=== PATIENT | female | born 1990 | race Caucasian/White ===

== ENCOUNTER 2018-02-10 08:52 | Outpatient (RCR) | payer MEDICAID, SELFPAY ==
--- NOTE | 2018-02-10 13:17 | BH.SGPN ---
Service Group Progress Note - Session Psychotherapy Session #1 Date Open:: 02/10/18 Time Started:: 09:05 Time Stopped:: 10:00 Targeted Problem #:: 1 Type of Group:: Process Goal of Group:: The goal of today's group was to check-in with client's mood, stressors, and positives, review homework and introduce topic for the day. Client Response/Progress/Benefit:: Client reported she is seeking help because she believes she has bipolar disorder that has not been diagnosed yet. Shared she does not have support from family because he do not believe in health. Client reported from her grandma she was able to find out that many of her family members have been diagnosed with bipolar disorder in the past. Client reported she is struggling with being able to manage her emotions and is hoping to learn skills to help her function. Client seemed to benefit from being oriented to the group process as well as receiving support from peers. First day in IOP. Eye Contact:: Fair Motor Activity:: Restless Appearance:: Casual Speech:: Appropriate Mood:: Anxious Affect:: Constricted Thoughts:: Linear, Logical, No evidence of hallucinations/delusions noted Staff Interventions:: Therapist used open-ended questions to elicit information about client's current stressors and mood state. Therapist was supportive by using active listening and reflection.
--- NOTE | 2018-02-10 14:34 | BH.SGPN ---
Service Group Progress Note - Session Psychotherapy Session #2 Date Open:: 02/10/18 - 6 group members Time Started:: 10:12 Time Stopped:: 11:06 Targeted Problem #:: 1 Type of Group:: Illness Management Goal of Group:: To increase understanding of mindfulness and explore the benefits of mindfulness and what thoughts are prohibiting group members to stay in the present. Client Response/Progress/Benefit:: Client responded well to session, quiet, but engaged through note-taking. Client appeared to connect with the quote as shown by her nodding to comments made by peers. Client shared she practices mindfulness through nature as client enjoys the outdoors and the benefits it brings. Client reported connecting with [employer] as client has often done or said things without being fully aware. Client helped the group identify the benefits of mindfulness such as less anxiety and improved mood. Client participated in the mindfulness activities, sharing she liked mindful music. Client appeared to benefit from learning more about different mindfulness techniques. Clients first day, can benefit from continuing IOP to prevent decompensation and promote mood stability. Eye Contact:: Good Motor Activity:: Appropriate Appearance:: Casual Speech:: Soft Mood:: Anxious, Irritable Affect:: Flat Thoughts:: Linear, No evidence of hallucinations/delusions noted Staff Interventions:: Therapist provided each group member with a worksheet to complete that asked questions about possible stressors and overwhelming thoughts that take up their attention and assist client in redirecting thoughts by completing an activity. Therapist led the processing of the worksheet and activity, helping clients connect how negative thoughts can impact them. Therapist provided support by using active listening and providing feedback. Psychotherapy Session #3 Date Open:: 02/10/18 - 6 group members Time Started:: 11:25 Time Stopped:: 12:20 Targeted Problem #:: 1 Type of Group:: Functional Skills Development Goal of Group:: To identify the impact that negative thinking patterns has had on group members lives and how using mindfulness techniques and coping strategies can assist group members in managing overwhelming thoughts and feelings. Client Response/Progress/Benefit:: Client responded well to session, quiet, but participating when prompted. Client listened to group discussion of reason mind, emotion mind, and garsia mind and how one can benefit from being mindful of thoughts, feelings, and behaviors. Client appeared to agree with peers comments on reacting mindfully versus reacting on impulse. Client shared she has practiced mindfulness before without knowing it through mushroom hunting and yoga. Client created a visual reminder to promote use of mindfulness skills such as music, deep breathing, walking in nature, and grounding through smell. Client appeared to benefit from increasing her repertoire of mindfulness skills. Eye Contact:: Good Motor Activity:: Appropriate Appearance:: Casual Speech:: Soft Mood:: Anxious, Irritable Affect:: Flat Thoughts:: Linear, No evidence of hallucinations/delusions noted Staff Interventions:: Therapist facilitated discussion about mindfulness and the benefits mindfulness can have. Therapist led group in an experiential activity in which clients would practice techniques such as breathing mindfully, and body scans. Therapist led the processing of the activity and assisted clients in connecting how when faced with overwhelming thoughts or negative self-talk can be disruptive to daily functioning.
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
--- NOTE | 2018-02-11 14:35 | BH.SGPN_ITS ---
Service Group Progress Note - Session Psychotherapy Session #2 Date Open:: 02/10/18 - 6 group members Time Started:: 10:12 Time Stopped:: 11:06 Targeted Problem #:: 1 Type of Group:: Illness Management Goal of Group:: To increase understanding of mindfulness and explore the benefits of mindfulness and what thoughts are prohibiting group members to stay in the present. Client Response/Progress/Benefit:: Client responded well to session, quiet, but engaged through note-taking. Client appeared to connect with the quote as shown by her nodding to comments made by peers. Client shared she practices mindfulness through nature as client enjoys the outdoors and the benefits it brings. Client reported connecting with ?[employer]? as client has often done or said things without being fully aware. Client helped the group identify the benefits of mindfulness such as less anxiety and improved mood. Client participated in the mindfulness activities, sharing she liked mindful music. Client appeared to benefit from learning more about different mindfulness techniques. Client?s first day, can benefit from continuing IOP to prevent decompensation and promote mood stability. Eye Contact:: Good Motor Activity:: Appropriate Appearance:: Casual Speech:: Soft Mood:: Anxious, Irritable Affect:: Flat Thoughts:: Linear, No evidence of hallucinations/delusions noted Staff Interventions:: Therapist provided each group member with a worksheet to complete that asked questions about possible stressors and overwhelming thoughts that take up their attention and assist client in redirecting thoughts by completing an activity. Therapist led the processing of the worksheet and activity, helping client?s connect how negative thoughts can impact them. Therapist provided support by using active listening and providing feedback. Psychotherapy Session #3 Date Open:: 02/10/18 - 6 group members Time Started:: 11:25 Time Stopped:: 12:20 Targeted Problem #:: 1 Type of Group:: Functional Skills Development Goal of Group:: To identify the impact that negative thinking patterns has had on group member?s lives and how using mindfulness techniques and coping strategies can assist group members in managing overwhelming thoughts and feelings. Client Response/Progress/Benefit:: Client responded well to session, quiet, but participating when prompted. Client listened to group discussion of reason mind , emotion mind, and garsia mind and how one can benefit from being mindful of thoughts, feelings, and behaviors. Client appeared to agree with peers? comments on reacting mindfully versus reacting on impulse. Client shared she has practiced mindfulness before without knowing it through mushroom hunting and yoga. Client created a visual reminder to promote use of mindfulness skills such as music, deep breathing, walking in nature, and grounding through smell. Client appeared to benefit from increasing her repertoire of mindfulness skills. Eye Contact:: Good Motor Activity:: Appropriate Appearance:: Casual Speech:: Soft Mood:: Anxious, Irritable Affect:: Flat Thoughts:: Linear, No evidence of hallucinations/delusions noted Staff Interventions:: Therapist facilitated discussion about mindfulness and the benefits mindfulness can have. Therapist led group in an experiential activity in which client?s would practice techniques such as breathing mindfully , and body scans. Therapist led the processing of the activity and assisted clients in connecting how when faced with overwhelming thoughts or negative self -talk can be disruptive to daily functioning.
--- NOTE | 2018-02-11 14:36 | BH.SGPN_ITS ---
Service Group Progress Note - Session Psychotherapy Session #3 Date Open:: 02/11/18 - 10 group members Time Started:: 11:25 Time Stopped:: 12:00 Targeted Problem #:: 1 Type of Group:: Functional Skills Development Goal of Group:: To identify personal barriers that get in the way of accomplishing tasks and identify internal and external resources to help overcome difficult situations. Behaviors/Verbalizations/Mental Status:: Client left group early Client Response/Progress/Benefit:: Client responded well to session, quiet, but participating when prompted. Client shared when she views something as impossible she sells herself short and has increased negative thinking. Client reflected on a time when overcame something she thought would be impossible, sharing, ?two weeks ago I never would have asked for mental health help, but here I am in group.? Client helped the group develop a list of internal and external resources to help overcome impossible situations. Client selected reframing thoughts, setting small goals, and trying outpatient counseling as resources that would help her mental health recovery. Client appeared to benefit from increasing awareness of her personal barriers and learning more about internal and external supports. Eye Contact:: Fair Motor Activity:: Slowed Appearance:: Casual Speech:: Soft Mood:: Anxious, Irritable Affect:: Flat Thoughts:: Linear, No evidence of hallucinations/delusions noted Staff Interventions:: Therapist facilitated discussion about internal and external resources and helped clients connect various internal resources they use. Therapist provided group members with a handout that gave information about various external resources the clients could utilize to get support. Therapist gave clients a worksheet in which they were asked to identify several barriers that get in their way to overcoming difficult situations. They also were asked to identify several internal and external resources they could use when needed.
--- NOTE | 2018-02-11 14:55 | PCM.HP.BLA ---
History and Physical Identifying information Patient is a 27-year-old female who presents to the behavioral medicine [facility] with chief complaint of mood cycling and anxiety. History is been obtained per interview with patient, discussion with staff, review of chart. Case discussed with treatment team. History of present illness Patient denies psychiatric treatment prior to 2011 when she took a 2 month course of Zoloft after a traumatic event. She reports symptoms consistent with mood cycling which have been progressively worsening over the past few years. She reports episodes of elevated mood consistent with dago lasting for a few days up to 2 weeks. During these episodes she has decreased sleep to 45 minutes per night dating that she stays up and cleans up to 5 hours per night she has thoughts of impulsive behavior and occasionally acts on them including increased spending. She spent $5000 within the past few weeks from her tax return. She reports increased anxiety, panic attacks, irritability, decreased focus and inability to concentrate. She reports excessive energy and decreased appetite. She feels for the past 2 weeks she has been in an elevated state. These episodes are generally followed by a crash with depression, anhedonia excess sleep and decreased energy. The under activation generally last for several days. She endorses ruminative anxiety about things that will never happen. She reports panic attacks that occur at work every other day at which time she has heart palpitations and shortness of breath. She reports some obsessive-compulsive behaviors regarding cleaning which are exacerbated during manic phases. She reports that she will clean for up to 5 hours per day. Her jha in an MVA in 2011. She endorses intrusive traumatic thoughts, avoidance, and hypervigilance consistent with PTSD. She reports recent over activation and hypomanic symptoms. She denies Steven or homicidal ideation. She reports occasional perceptual disturbances of visual shadows that occur with sleep deprivation. She denies history consistent with rohan psychosis. Past psychiatric history Patient denies previous psychiatric hospitalizations. She had some suicidal ideation in and was treated with Zoloft for a period of 2 months. She denies previous suicide attempts. She does not have a psychiatrist or counselor. She reports previous trial of Adderall resulted in hospitalization for heart palpitations. She was on Zoloft for 2 months in 2011. She was placed back on Zoloft in 2013 by her primary care physician Dr. Chua. She continues to take his Zoloft but feels that it is ineffective. Substance use history Patient denies smoking cigarettes, ingestion of alcohol, use of illicit drugs. Past medical history Lupus-joint pain Fibromyalgia Asthma Vitamin D deficiency Kidney stones Denies history of seizure or head injury Review of systems No fevers chills nausea vomiting chest pain dyspnea. Patient denies or intent to get . Current menses. All other systems reviewed and negative Allergies-Adderall Current medications Zoloft 150 mg daily BuSpar 7.5 mg twice daily Hydroxyzine 25 mg daily as needed Gabapentin 300 mg twice daily Proventil inhaler Tramadol as needed which she is not taking control implant Vitamin D 5000 units daily Family medical psychiatric history Maternal grandmother and 3 maternal uncles with bipolar disorder. Mother with undiagnosed bipolar disorder. Daughter age 5 with anxiety. Father with chemical dependency and mental health issues. Developmental social history Patient was raised by her mother and stepfather since age 4. Her biologic father is chemically dependent and lives in [place]. He is frequently in [place] [facility]. She has minimal contact. Her stepfather was a marine and was strict. She attended college classes in high school with a GPA of 3.8. 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 She obtained her [employer] certification and has worked for the past 10 years. 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 She lives with her parents and her daughter age 5, her half brother age 19 and her half sister age 21. Legal history none Mental status exam Vital signs reviewed per nursing database. Discussed with nursing. Patient is alert and oriented in no acute distress. Ambulatory with normal gait and station. Cooperative with interview. Good eye contact. Casually dressed. No psychomotor agitation or retardation. Mood is depressed. Affect congruent. Speech is clear and of regular rate and volume. Language fluent. Thought process organized. Associations logical. Thought content significant for ruminative anxiety themes of depression. No suicidal or homicidal ideation related or detected no evidence of psychosis related to detected. Immediate recent and remote memory grossly intact. Attention and concentration are fair. Estimated intelligence fund of knowledge average. Judgment and insight are fair. Requisition for lab work provided including TSH, CBC, CMP, Depakote level. Previous lab work will be requested from primary care physician. Diagnosis Bipolar 1 disorder most recent episode manic F 31.12 PTSD Anxiety unspecified Vitamin D deficiency Lupus Fibromyalgia Asthma Kidney stones by history Plan Admit to [facility] as the structured setting is necessary to maintain gains and prevent decompensation. Risks benefits alternatives of medications discussed with patient. Patient acknowledges understanding. Patient denies current . She denies intent to get . She is currently on implantable control which she believes will be effective for the next 2 years. Risk of medication and discussed with patient. Start Depakote ER 500 mg p.o. nightly. Dispense #30 with 1 refill. Requisition provided for lab work including Depakote level. Reduce Zoloft to 100 mg p.o. daily for 3 days then 50 mg p.o. daily with ultimate goal of discontinuation. Discontinue BuSpar. Recommend reading book calm seas. Referral provided for center of traumatic stress. Establish with outpatient psychiatric care for when IOP complete. Patient acknowledges understanding and is in agreement with plan. She feels able to maintain safety. She agrees to seek help or emergency care if feeling unsafe to self or others.
--- NOTE | 2018-02-11 15:07 | BH.COMM ---
Communication Note - Communication with Client Communication Note: Therapist touched base with client to inform client this therapist will be her individual therapist. Client and therapist to meet Wednesday02/14/18 for individual session.
--- NOTE | 2018-02-11 15:12 | HP.PCM_ITS ---
History and Physical Identifying information Patient is a 27-year-old female who presents to the behavioral medicine [facility] with chief complaint of mood cycling and anxiety. History is been obtained per interview with patient, discussion with staff, review of chart. Case discussed with treatment team. History of present illness Patient denies psychiatric treatment prior to 2011 when she took a 2 month course of Zoloft after a traumatic event. She reports symptoms consistent with mood cycling which have been progressively worsening over the past few years. She reports episodes of elevated mood consistent with dago lasting for a few days up to 2 weeks. During these episodes she has decreased sleep to 45 minutes per night dating that she stays up and cleans up to 5 hours per night she has thoughts of impulsive behavior and occasionally acts on them including increased spending. She spent $5000 within the past few weeks from her tax return. She reports increased anxiety, panic attacks, irritability, decreased focus and inability to concentrate. She reports excessive energy and decreased appetite. She feels for the past 2 weeks she has been in an elevated state. These episodes are generally followed by a crash with depression, anhedonia excess sleep and decreased energy. The under activation generally last for several days. She endorses ruminative anxiety about things that will never happen. She reports panic attacks that occur at work every other day at which time she has heart palpitations and shortness of breath. She reports some obsessive-compulsive behaviors regarding cleaning which are exacerbated during manic phases. She reports that she will clean for up to 5 hours per day. Her jha in an MVA in 2011. She endorses intrusive traumatic thoughts, avoidance, and hypervigilance consistent with PTSD. She reports recent over activation and hypomanic symptoms. She denies Steven or homicidal ideation. She reports occasional perceptual disturbances of visual shadows that occur with sleep deprivation. She denies history consistent with rohan psychosis. Past psychiatric history Patient denies previous psychiatric hospitalizations. She had some suicidal ideation in and was treated with Zoloft for a period of 2 months. She denies previous suicide attempts. She does not have a psychiatrist or counselor. She reports previous trial of Adderall resulted in hospitalization for heart palpitations. She was on Zoloft for 2 months in 2011. She was placed back on Zoloft in 2013 by her primary care physician Dr. Chua. She continues to take his Zoloft but feels that it is ineffective. Substance use history Patient denies smoking cigarettes, ingestion of alcohol, use of illicit drugs. Past medical history Lupus-joint pain Fibromyalgia Asthma Vitamin D deficiency Kidney stones Denies history of seizure or head injury Review of systems No fevers chills nausea vomiting chest pain dyspnea. Patient denies or intent to get . Current menses. All other systems reviewed and negative Allergies-Adderall Current medications Zoloft 150 mg daily BuSpar 7.5 mg twice daily Hydroxyzine 25 mg daily as needed Gabapentin 300 mg twice daily Proventil inhaler Tramadol as needed which she is not taking control implant Vitamin D 5000 units daily Family medical psychiatric history Maternal grandmother and 3 maternal uncles with bipolar disorder. Mother with undiagnosed bipolar disorder. Daughter age 5 with anxiety. Father with chemical dependency and mental health issues. Developmental social history Patient was raised by her mother and stepfather since age 4. Her biologic father is chemically dependent and lives in [place]. He is frequently in alf. She has minimal contact. Her stepfather was a marine and was strict. She attended college classes in high school with a GPA of 3.8. 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 She obtained her [employer] certification and has worked for the past 10 years. 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 She lives with her parents and her daughter age 5, her half brother age 19 and her half sister age 21. Legal history none Mental status exam Vital signs reviewed per nursing database. Discussed with nursing. Patient is alert and oriented in no acute distress. Ambulatory with normal gait and station. Cooperative with interview. Good eye contact. Casually dressed. No psychomotor agitation or retardation. Mood is depressed. Affect congruent. Speech is clear and of regular rate and volume. Language fluent. Thought process organized. Associations logical. Thought content significant for ruminative anxiety themes of depression. No suicidal or homicidal ideation related or detected no evidence of psychosis related to detected. Immediate recent and remote memory grossly intact. Attention and concentration are fair. Estimated intelligence fund of knowledge average. Judgment and insight are fair. Requisition for lab work provided including TSH, CBC, CMP, Depakote level. Previous lab work will be requested from primary care physician. Diagnosis Bipolar 1 disorder most recent episode manic F 31.12 PTSD Anxiety unspecified Vitamin D deficiency Lupus Fibromyalgia Asthma Kidney stones by history Plan Admit to [facility] as the structured setting is necessary to maintain gains and prevent decompensation. Risks benefits alternatives of medications discussed with patient. Patient acknowledges understanding. Patient denies current . She denies intent to get . She is currently on implantable control which she believes will be effective for the next 2 years. Risk of medication and discussed with patient. Start Depakote ER 500 mg p.o. nightly. Dispense #30 with 1 refill. Requisition provided for lab work including Depakote level. Reduce Zoloft to 100 mg p.o. daily for 3 days then 50 mg p.o. daily with ultimate goal of discontinuation. Discontinue BuSpar. Recommend reading book calm seas. Referral provided for center of traumatic stress. Establish with outpatient psychiatric care for when IOP complete. Patient acknowledges understanding and is in agreement with plan. She feels able to maintain safety. She agrees to seek help or emergency care if feeling unsafe to self or others.
--- NOTE | 2018-02-11 15:12 | BH.DR.ITP ---
Initial Treatment Plan - Patient Information Visit Information: ADMISSION DATE: EXPECTED LOS: 4-6 weeks Diagnoses:: Bipolar 1 most recent episode manic F 31.12 - Problems/Symptoms Problem #1:: Mood instability/mood cycling Symptom:: Biologic disruption of sleep and appetite, impulsivity, irritability, inability to focus and concentrate, depression Problem #2:: Anxiety Symptom:: Rumination, intrusive traumatic memories, panic attacks
--- NOTE | 2018-02-14 09:25 | BH.COMM ---
Communication Note - Communication with Client Communication Note: This therapist called client as she no called/no showed for group this morning. Client reported she is sick and plans to be at group 02/16/18. Client's scheduled individual session was canceled for today as well and rescheduled for 02/16/18.
--- NOTE | 2018-02-16 15:52 | BH.DS ---
Discharge Summary - Demographics Date of Admission:: 02/10/18 Discharge Date: 02/16/18 Presenting Problems at Admission:: Client is a 27-year-old female who at admission endorsed symptoms consistent with mood cycling which have been progressively worsening over the past few years. Client reported episodes of elevated mood consistent with dago lasting for a few days up to 2 weeks. Client shared during these episodes has decreased sleep, increased cleaning, and impulsive behavior. Client reported her elevated moods are followed by a crash of depressive symptoms, anhedonia, and decreased energy. At admission client endorsed irritability, agitation, lack of concentration, and anxiety. Additionally, client reported intrusive traumatic thoughts, avoidance, and hypervigilance consistent with PTSD. Discharge Diagnoses:: Bipolar 1 disorder most recent episode manic F 31.12; PTSD; Anxiety unspecified Reason for Discharge:: Client voluntarily discharged from [facility] as client reports groups just aren't for me. Client reports belief she will benefit more from individual counseling focused on learning how to manage her Bipolar and PTSD symptoms. Due to client's early discharge from the program a treatment plan and psychosocial assessment were not completed. - Treatment Progress During Treatment & Response: Minimal progress noted as client attended two days of group during her time in [facility]. Client able to start medication to treat her symptpms and reported learning about her diagnoses and having her experience normalized by therapist and [facility] psychiatrist benefited client during admission. Client shared belief individual therapy would better fit client's needs at this time. Issues Still to be Addressed:: Client voluntarily discharged from [facility] less than a week into the program, which as a result hindered client's ability to make progress on reducing Bipolar and PTSD symptoms. Client can benefit from outpatient counseling to increase awareness of warning signs and understanding her diagnoses. Client can also benefit from processing trauma and learning healthy coping skills to manage symptoms of PTSD, depression, and dago. Additionally, client may benefit from working on anger management as client's reports her manic symptoms present in agitation and irritability. Discharge Recommendations/Instructions:: Therapist helped client establish outpatient providers and encouraged client to follow up post [facility] discharge. Client to follow up with counseling at [facility] on 02/18/18. Client to follow up with [facility] for psychiatry on 03/04/18. Client was also provided information for [facility] in [place] and at [facility] in [place]. Discharge Handout: Complete Discharge Handout with client on aftercare options and continuity of care.
--- NOTE | 2018-02-16 16:24 | BH.DS_ITS ---
Discharge Summary - Demographics Date of Admission:: 02/10/18 Discharge Date: 02/16/18 Presenting Problems at Admission:: Client is a 27-year-old female who at admission endorsed symptoms consistent with mood cycling which have been progressively worsening over the past few years. Client reported episodes of elevated mood consistent with dago lasting for a few days up to 2 weeks. Client shared during these episodes has decreased sleep, increased cleaning, and impulsive behavior. Client reported her elevated moods are followed by a crash of depressive symptoms, anhedonia, and decreased energy. At admission client endorsed irritability, agitation, lack of concentration, and anxiety. Additionally, client reported intrusive traumatic thoughts, avoidance, and hypervigilance consistent with PTSD. Discharge Diagnoses:: Bipolar 1 disorder most recent episode manic F 31.12; PTSD ; Anxiety unspecified Reason for Discharge:: Client voluntarily discharged from [facility] as client reports groups just aren't for me. Client reports belief she will benefit more from individual counseling focused on learning how to manage her Bipolar and PTSD symptoms. Due to client's early discharge from the program a treatment plan and psychosocial assessment were not completed. - Treatment Progress During Treatment & Response: Minimal progress noted as client attended two days of group during her time in [facility]. Client able to start medication to treat her symptpms and reported learning about her diagnoses and having her experience normalized by therapist and [facility] psychiatrist benefited client during admission. Client shared belief individual therapy would better fit client's needs at this time. Issues Still to be Addressed:: Client voluntarily discharged from [facility] less than a week into the program, which as a result hindered client's ability to make progress on reducing Bipolar and PTSD symptoms. Client can benefit from outpatient counseling to increase awareness of warning signs and understanding her diagnoses. Client can also benefit from processing trauma and learning healthy coping skills to manage symptoms of PTSD, depression, and dago. Additionally, client may benefit from working on anger management as client's reports her manic symptoms present in agitation and irritability. Discharge Recommendations/Instructions:: Therapist helped client establish outpatient providers and encouraged client to follow up post [facility] discharge. Client to follow up with counseling at [facility] on 02/18/18. Client to follow up with [facility] for psychiatry on 03/04/18. Client was also provided information for [facility] in [place] and at [facility] in [place]. Discharge Handout: Complete Discharge Handout with client on aftercare options and continuity of care.
--- NOTE | 2018-02-16 16:24 | BH.MDN ---
Multi-Disciplinary Note - Note 60-min Individual Time Started:: 10:15 Date: 02/16/18 Purpose of session/treatment goals addressed:: The purpose of this session was to provide psychoeducation, increase awareness of warning signs, and establish outpatient aftercare options. Eye Contact:: Fair Motor Activity:: Appropriate Appearance:: Casual Speech:: Appropriate Mood:: Irritable Affect:: Flat Thoughts:: Linear, No evidence of hallucinations/delusions noted Staff Interventions:: Therapist used active listening and empathic responses to validate client's emotions about her diagnoses and process mental health stigma. Therapist provided psychoeducation on Bipolar Disorder, PTSD, and trauma's impact on the brain. Therapist utilized a video to illustrate how trauma impacts memory processing. Therapist advocated for client by helping client call outpatient mental health providers to establish follow up appointments. Client Response:: Client responded well to session, open to meeting with therapist. Client shared she is grateful to have started the program, but reported groups just arent for me. Client expressed she would benefit more from individual counseling to learn how to manage her Bipolar symptoms and PTSD. Client reported for years she was unsure why she was having impulsive behavior, highs, and just lots of emotions so learning she was bipolar helped client find out there was a reason for all that. Client and therapist discussed various symptoms of dago and PTSD. Client was receptive to learning about how trauma impacts memory processing and brain functioning. Client and therapist called [facility] and [facility] to establish outpatient psychiatry and counseling. Client reported relief to have counseling in place as client's family is not supportive of mental health and views it with a stigma. Risks/Concerns:: Client denies suicidal ideation, plan, and intent as of 02/16/18. Client reports awareness of agitation and increased impulsivity, but reports belief she can maintain safety. Progress Toward Goals/Plan:: No progress noted as client only attended two days of group before discharge. Client to follow up with outpatient psychiatry at [facility] and individual therapy at [facility]. Time Stopped:: 11:20
--- NOTE | 2018-02-16 17:26 | BH.MDN_ITS ---
Multi-Disciplinary Note - Note 60-min Individual Time Started:: 10:15 Date: 02/16/18 Purpose of session/treatment goals addressed:: The purpose of this session was to provide psychoeducation, increase awareness of warning signs, and establish outpatient aftercare options. Eye Contact:: Fair Motor Activity:: Appropriate Appearance:: Casual Speech:: Appropriate Mood:: Irritable Affect:: Flat Thoughts:: Linear, No evidence of hallucinations/delusions noted Staff Interventions:: Therapist used active listening and empathic responses to validate client's emotions about her diagnoses and process mental health stigma. Therapist provided psychoeducation on Bipolar Disorder, PTSD, and trauma 's impact on the brain. Therapist utilized a video to illustrate how trauma impacts memory processing. Therapist advocated for client by helping client call outpatient mental health providers to establish follow up appointments. Client Response:: Client responded well to session, open to meeting with therapist. Client shared she is grateful to have started the program, but reported groups just aren?t for me. Client expressed she would benefit more from individual counseling to learn how to manage her Bipolar symptoms and PTSD. Client reported for years she was unsure why she was having impulsive behavior, highs, and just lots of emotions so learning she was bipolar helped client find out there was a reason for all that. Client and therapist discussed various symptoms of dago and PTSD. Client was receptive to learning about how trauma impacts memory processing and brain functioning. Client and therapist called [facility] and [facility] to establish outpatient psychiatry and counseling. Client reported relief to have counseling in place as client's family is not supportive of mental health and views it with a stigma. Risks/Concerns:: Client denies suicidal ideation, plan, and intent as of . Client reports awareness of agitation and increased impulsivity, but reports belief she can maintain safety. Progress Toward Goals/Plan:: No progress noted as client only attended two days of group before discharge. Client to follow up with outpatient psychiatry at [facility] and individual therapy at [facility]. Time Stopped:: 11:20
[2018-05-06 15:38] VITALS: BP 112/74; PULSE 66; RESP 14
== END 2018-02-19 23:59 ==
LOC: BHIOP 08:52
PROVIDERS: Family Provider Family Medicine; PCP Family Medicine; Visit Provider Psychiatry & Neurology Psychiatry
DX: F31.12 Bipolar disorder, current episode manic without psychotic features, moderate (principal); F43.10 Post-traumatic stress disorder, unspecified; F41.9 Anxiety disorder, unspecified
CPT/HCPCS: 99204; H0035; H2012; H2020; T1002; 90837

== ENCOUNTER → 2018-03-17 13:35 | Outpatient (CLI) | payer MEDICAID, SELFPAY ==
[2018-03-17 15:22] LABS: Valproic Acid (Depakene) Level 63 ug/mL (50-100)
== END ==
PROVIDERS: Family Provider Family Medicine; PCP Family Medicine
DX: Z79.899 Other long term (current) drug therapy (principal); F19.10 Other psychoactive substance abuse, uncomplicated; R53.83 Other fatigue
CPT/HCPCS: 36415; 80164

== ENCOUNTER → 2018-09-18 10:51 | Outpatient (CLI) | payer MEDICAID, SELFPAY ==
[2018-09-18 11:48] LABS: AST(SGOT) 12 U/L (15-37); Alanine Aminotransfer ALT/SGPT 24 U/L (13-56); Albumin, Serum 3.8 g/dL (3.2-5.0); Alkaline Phosphatase 78 U/L (45-117); Anion Gap 9 (5-15); BUN 12 mg/dL (7-18); BUN/Creat Ratio 13.7 RATIO (10-20); Calcium,Total 8.9 mg/dL (8.5-10.1); Chloride 107 mmol/L (98-107); Creatinine, Serum 0.88 mg/dL (0.55-1.02); EST Glomerular Filtration Rate 82 mL/min (>60); Est Glom Filt Rate - Afr Amer 99 mL/min (>60); Globulin 3.9 g/dL (2.2-4.2); Glucose 95 mg/dL (74-106); Protein, Total 7.7 g/dL (6.4-8.2); Sodium Level 142 mmol/L (136-145); Thyroid Stim Hormone (TSH) 1.48 uIU/mL (0.358-3.74)
[2018-09-18 11:51] LABS: Valproic Acid (Depakene) Level 63 ug/mL (50-100)
== END ==
PROVIDERS: Family Provider Family Medicine; PCP Family Medicine
DX: Z79.899 Other long term (current) drug therapy (principal)
CPT/HCPCS: 36415; 80053; 80164; 84443

== ENCOUNTER 2018-11-01 13:16 | Emergency (ER) | payer MEDICAID, SELFPAY ==
[2018-11-01 13:16] VITALS: BP 140/91; BP 155/106; PULSE 95; PULSE 96; RESP 16; TEMP 36.6; O2SAT 100; BMI 25.3
--- NOTE | 2018-11-01 13:43 | EKG12_ITS ---
Test Reason : CP Blood Pressure : / mmHG Vent. Rate : 073 BPM Atrial Rate : 073 BPM P-R Int : 156 ms QRS Dur : 094 ms QT Int : 390 ms P-R-T Axes : 050 004 034 degrees QTc Int : 429 ms Normal sinus rhythm with sinus arrhythmia Normal ECG Confirmed by SAMRA HARDY, TAVO ([id number]), production editor ELIZABETH CREWS ([id number] on 11/04/2018 10:16:38 AM Referred By: ZEESHAN/MARTI Confirmed By:TAVO CABRALES MD
--- NOTE | 2018-11-01 13:43 | RAD_ITS ---
STUDY: X-RAY CHEST REASON FOR EXAM: Female, 28 years old. Increased anxiety. Chest pain. TECHNIQUE: Single AP portable view of the chest. COMPARISON: Comparison is made with prior study dated September 28, 2016. FINDINGS: The lungs are clear and expanded. There is no demonstrated pleural abnormality. Normal size heart. Normal mediastinum and noreen. Normal visualized pulmonary arteries. Normal visualized aortic arch and descending thoracic aorta. Normal visualized thoracic spine. Normal visualized ribs, clavicles, and shoulders. There is no demonstrated abnormality of the visualized soft tissue structures of the upper abdomen. RAD/Chest 1 View (Portable) IMPRESSION: Normal x-ray examination of the chest. Electronically Signed: Oliverio Barcenas MD at 14:19 EST Tel [phone], Service support ,
[2018-11-01] MEDS: 0.9% Normal Saline 1,000 ML 1000 ML IV (14:32)
[2018-11-01] MEDS: LORazepam 2 MG/ML Syringe 1 MG IV (14:32)
[2018-11-01] MEDS: Ketorolac 30 MG/ML Syringe IV (14:32)
[2018-11-01] MEDS: Ondansetron 4 MG/2 ML Vial IV (14:32)
[2018-11-01 14:39] VITALS: BP 125/96; PULSE 93; RESP 18; O2SAT 98
[2018-11-01 14:46] LABS: Absolute Lymphocyte Count 2.33 X10^3/ul (0.83-4.51); Basophil# 0.01 X10^3/uL; Basophil% 0.1 % (0-1); Eosinophil# 0.08 X10^3/uL; Eosinophils% 0.8 % (0-5); Hematocrit 39.3 % (37-47); Hemoglobin 13.5 g/dl (12.0-15.0); Lymphocyte # 2.33 X10^3/ul (4.0); Lymphocyte % 23.3 % (19-41); Mean Corp Hgb Conc 34.4 g/gl (32-36); Mean Corpuscular Hgb 28.4 pg (27.0-32.0); Mean Corpuscular Volume 82.7 fL (81-99); Mean Platelet Vol. 9.8 fl (6.2-12.0); Monocyte# 0.54 X10^3/uL; Monocyte% 5.4 % (0-10); Neutrophil # 7.03 X10^3/uL (2.7-7.7); Neutrophil % 70.2 % (47-70); POSITIVE COUNT NO; POSITIVE DIFFERENTIAL NO; POSITIVE MORPHOLOGY NO; Platelet Count 210 K/mm3 (150-450); RBC Distribution Width CV 12.7 % (11.6-14.6); RBC Distribution Width SD 38.1 fl (35.1-43.9); Red Blood Count 4.75 M/mm3 (4.2-5.4)
[2018-11-01 15:00] LABS: Anion Gap 8 (5-15); BUN 9 mg/dL (7-18); BUN/Creat Ratio 11.7 RATIO (10-20); Calcium,Total 8.8 mg/dL (8.5-10.1); Chloride 105 mmol/L (98-107); Creatinine, Serum 0.77 mg/dL (0.55-1.02); EST Glomerular Filtration Rate 95 mL/min (>60); Est Glom Filt Rate - Afr Amer 115 mL/min (>60); Estimated Creatinine Clearance 98.75 ml/min; Glucose 79 mg/dL (74-106); Potassium 3.5 mmol/L (3.5-5.1); Sodium Level 139 mmol/L (136-145)
[2018-11-01 15:42] LABS: Pregnancy, Serum, hCG Quali. NEGATIVE Negative (0-9 Nonpreg)
--- NOTE | 2018-11-01 15:50 | ED.VISSUMM ---
- ER Visit Summary Date of Service: 11/01/18 Chief Complaint: Manic and chest pain History of Present Illness: The patient is a 28 F who goes to the counseling center and sees Dr. Daniel. Her primary care physician is Dr. Blanc. She reports that she has not slept for 4 days and feels irritable. She denies any suicidal homicidal ideation. No auditory or visual hallucinations. Patient reports that she has chest pain that began approximately 3 hours ago while she was undergoing light activity. It is 8 out of 10 at worst and 5 out of 10 currently. Is a sharp pain. States that it is increased with moving around a lot and decreased by nothing. She reports is been nauseated. Denies any shortness of breath, vomiting, or diaphoresis. Physical Examination: Vitals: Stable. Afebrile. General: Well-nourished and well-developed. Head: Normocephalic atraumatic. Neck: Supple, no lymphadenopathy. No JVD. Nontender. Cardiovascular: Regular rate and rhythm. No murmurs. Respiratory: No respiratory distress. Clear to auscultation bilaterally. Abdominal: Soft, nontender, nondistended, normal bowel sounds. No guarding, rebound, or peritoneal signs. Back: Nontender. Extremities: Nontender, no edema. Skin: Normal color, no rash. Neurologic: Alert and oriented ?3. Cranial nerves II through XII are intact. Normal strength and sensation. Mental status exam: Patient appears their stated age. Good posture and grooming. Good eye contact. Normal rate, volume, and latency of speech. No suicidal or homicidal ideation. No auditory or visual hallucinations. Flow of thought is logical. Insight and judgment is fair. Test Results: EKG is sinus at 73 with no acute changes. CBC is normal. Chem-7 is normal. Troponin is negative. Parents test is negative. Emergency Department Course and Treatment: Patient was treated with Toradol IV, Zofran IV, and Ativan IV. On repeat exam she reports her chest pain is not improved. She was given Tylenol p.o. Treatment Plan: Discussed patient possibility of going home and following up with her counselor for her bipolar disorder. She was amenable to this plan. However, she called the counselor and he feels that she needs to be hospitalized. Counseling center was contacted and they will see the patient. Alcohol level, drug screen, and Depakote level were added. Disposition: Pending Impression: 1. Anxiety. 2. Atypical chest pain. 3. CHELY score of 0. 4. Bipolar disorder. This note was generated with [employer] dictation software. It may contain incorrect words, spelling, and punctuation that were not noted in review of the chart prior to signing ED Disposition - Plan for ED Patient: Chief Complaint: Anxiety Instructions: ED Manic Depression Referrals: Nagi Blanc MD [Primary Care Provider] - 1-2 Days if not improving Counseling[facility]Center [GROUP OF PHYSICIANS] - As soon as possible
--- NOTE | 2018-11-01 16:30 | NURSING ---
TO REVIEW DC INSTRUCTIONS. PT TALKED WITH COUNSELOR. COUNSELOR CALLED AND REQUESTING CRISI COME EVALUATE PT PRIOR TO DC. FOR POSSIBLE VOLUNTARY ADMISSION TO INPT CARE. LUZ ELENA SAWANT TENNIS NET MAKER AT [facility], ALREADY CALLED CRISIS. DR KIDD UPDATED AND ORDERED MEDICAL CLEARANCE FOR CRISI EVAL. PT UPDATED ABOUT PROCESS.
[2018-11-01] MEDS: Acetaminophen 500 MG Tablet 1000 MG PO (17:08)
[2018-11-01 17:11] LABS: Alcohol, Blood (Medical)-Serum < 3.0 mg/dL
[2018-11-01 17:42] LABS: Valproic Acid (Depakene) Level 24 ug/mL (50-100)
--- NOTE | 2018-11-01 18:08 | NURSING ---
TEREZA, CRISIS, AWARE OF PATIENT
[2018-11-01 18:19] VITALS: BP 120/71; PULSE 92; RESP 16; O2SAT 99
[2018-11-01 18:57] LABS: Amphetamine Urine VISTA NEGATIVE (<1000 ng/mL); Barbiturate Urine VISTA NEGATIVE (< 200 ng/mL); Benzodiazepine Urine VISTA NEGATIVE (< 200 ng/mL); Cocaine Urine VISTA NEGATIVE (< 300 ng/mL); Ecstacy Urine VISTA POSITIVE (< 500 ng/mL); Methadone Urine VISTA NEGATIVE (< 300 ng/mL); PCP Urine VISTA NEGATIVE (< 25 ng/mL); THC Urine VISTA NEGATIVE (< 50 ng/mL); Vista UDS pH Range 6
--- NOTE | 2018-11-01 20:09 | ED.RN ---
2000:THIS RN REQUESTED ANXIETY MEDICATION FOR PATIENT. MD AWARE. WAITING MD ORDERS.
[2018-11-01] MEDS: hydrOXYzine 10 MG Tablet 25 MG PO (20:21)
--- NOTE | 2018-11-01 20:25 | ED.RN ---
Iv site at this time DC, catheter tip intact, no bleeding noted after removal. Dressing applied to the site
[2018-11-01] MEDS: Divalproex (ER) 250 MG Tablet PO (21:28)
[2018-11-01] MEDS: traZODone 100 MG Tablet PO (21:28)
[2018-11-01 21:59] VITALS: BP 138/93; PULSE 91; RESP 16; O2SAT 99
--- NOTE | 2018-11-01 23:46 | ED.RN ---
ATTEMPTED TO CALL REPORT TO [facility]. THEY STATE THEY ARE IN THE MIDDLE OF PATIENT CARE AND WILL CALL BACK. NAME AND NUMBER LEFT WITH STAFF
--- NOTE | 2018-11-02 00:16 | ED.RN ---
REPORT CALLED TO [facility] TO DEANDRE RIDDLE
--- OUTSIDE RECORDS SUMMARY | 2018-12-18 19:41 | XMS RPT_ITS ---
:1990 Author Organization [place] Support Name Relationship Address Phone [facility] Unavailable [address] + [place] [address] CASSANDRA RACHAEL/ASVANNAH Unavailable [address] + [place] [address] [facility] Unavailable [address] + [place] [address] CASSANDRA RACHAEL/SAVANNAH Unavailable [address] + [place] [address] NOT GIVEN Unavailable Unavailable Unavailable RACHAEL TRUJILLO Unavailable [address] + [place], [place] [phone] [facility] Unavailable [address] + [place] [address] CASSANDRA RACHAEL/SAVANNAH Unavailable [address] + [place] [address] [facility] Unavailable [address] + [place] [address] CASSANDRA, RACHAEL/SAVANNAH Unavailable [address] [phone] [place] [address] [facility] Unavailable [address] + [place] [address] CASSANDRA, RACHAEL/SAVANNAH Unavailable [address] [phone] [place] [address] [facility] Unavailable [address] + [place] [address] CASSANDRA RACHAEL/SAVANNAH Unavailable [address] [phone] [place] [address] [facility] [address] + [place] [address] RACHAEL TRUJILLO/SAVANNAH Unavailable [address] [phone] [place] [address] Care Team Providers Name Role Phone RICHIE DEAN (JERI) Attending Unavailable DAVE, DR IRAM Long Admitting Unavailable DAVE, DR IRAM Long Attending Unavailable DAVE, DR IRAM Long Primary Care Unavailable KRYSTYNA RED MD Consulting Unavailable KRYSTYNA RED MD Referring Unavailable Jayashree, Krystyna Primary Care Unavailable Tania Gaines Attending Unavailable KAYLANCONE, DIANDRA Attending Unavailable DANICAONE, DIANDRA Referring Unavailable Jayashree, Krystyna Primary Care Unavailable DIANDRA LEDEZMA Attending Unavailable CIAARACELIONE, DIANDRA Referring Unavailable Jayashree, Krystyna Primary Care Unavailable FELIZ FERRERA Attending Unavailable FELIZ FERRERA Referring Unavailable [facility] Unavailable Brady Jones Attending Unavailable Jayashree, Krystyna Referring Unavailable [facility], Krystyna Primary Care Unavailable Rinku Rocha Attending Unavailable Jayashree, Krystyna Referring Unavailable Jayashree, Krystyna Primary Care Unavailable FELIZ FERRERA [facility] Un[facility] PROBLEMS PROBLEMS DATE TYPE CONDITION / CODE ATTENDING STATUS SOURCE 03/30/2018 Unknown F31.12 - Bipolar CIANCONE, DIANDRA Active [place] disorder, Community current episode Hospital manic without Repository psychotic features, moderate / F31.12(ICD-10) PROCEDURES PROCEDURES No Procedure Records FoundRESULTS RESULTS 12 LEAD ELECTROCARDIOGRAM Observed: 11/04/2018 Status: F Source: [place] 10:17 AM [facility] HOSPITAL REPOSITORY [facility] Cardiovascular Services [address] [place] [address] 12 Lead EKG 11/01/18 1324 MR#: [id number] Acct: [id number] Name: GRETA ANDRES Rep #: [id number] : 1990 28 From: Adam Riddle MD Attending Dr: Status: DEP ER Ordering Dr: Jt Duenas MD Date: 11/01/18 Location: ED Sex: F C Admitted: Test Reason : CP Blood Pressure : / mmHG Vent. Rate : 073 BPM Atrial Rate : 073 BPM P-R Int : 156 ms QRS Dur : 094 ms QT Int : 390 ms P-R-T Axes : 050 004 034 degrees QTc Int : 429 ms Normal sinus rhythm with sinus arrhythmia Normal ECG Confirmed by ADAM RIDDLE MD ([id number]), editor continuity and script ELIZABETH CREWS ([id number]) on 11/04/2018 10:16:38 AM Referred By: ZEESHAN/MARTI Confirmed By:ADAM RIDDLE MD 11/04/18 1016 Date Adam Riddle MD CC: Krystyna Red MD; Tania Gaines MD; Jt Duenas MD Signed EMERGENCY DEPARTMENT Observed: 11/03/2018 Status: F Source: [place] SUMMARY 1:05 AM [facility] Medical Records Department [address] [place] [address] Emergency Department Summary 11/01/18 1550 MR#: [id number] Acct: [id number] Name: GRETA ANDRES Rep #: [id number] : 1990 28 From: Jt Duenas MD PCP: Krystyna Red MD Status: DEP ER - ER Visit Summary Date of Service: 11/01/18 Chief Complaint: Manic and chest pain History of Present Illness: The patient is a 28 F who goes to the [facility] and sees Dr. Daniel. Her primary care physician is Dr. Red. She reports that she has not slept for 4 days and feels irritable. She denies any suicidal homicidal ideation. No auditory or visual hallucinations. Patient reports that she has chest pain that began approximately 3 hours ago while she was undergoing light activity. It is 8 out of 10 at worst and 5 out of 10 currently. Is a sharp pain. States that it is increased with moving around a lot and decreased by nothing. She reports is been nauseated. Denies any shortness of breath, vomiting, or diaphoresis. Physical Examination: Vitals: Stable. Afebrile. General: Well-nourished and well-developed. Head: Normocephalic atraumatic. Neck: Supple, no lymphadenopathy. No JVD. Nontender. Cardiovascular: Regular rate and rhythm. No murmurs. Respiratory: No respiratory distress. Clear to auscultation bilaterally. Abdominal: Soft, nontender, nondistended, normal bowel sounds. No guarding, rebound, or peritoneal signs. Back: Nontender. Extremities: Nontender, no edema. Skin: Normal color, no rash. Neurologic: Alert and oriented 3. Cranial nerves II through XII are intact. Normal strength and sensation. Mental status exam: Patient appears their stated age. Good posture and grooming. Good eye contact. Normal rate, volume, and latency of speech. No suicidal or homicidal ideation. No auditory or visual hallucinations. Flow of thought is logical. Insight and judgment is fair. Test Results: EKG is sinus at 73 with no acute changes. CBC is normal. Chem-7 is normal. Troponin is negative. Parents test is negative. Emergency Department Course and Treatment: Patient was treated with Toradol IV, Zofran IV, and Ativan IV. On repeat exam she reports her chest pain is not improved. She was given Tylenol p.o. Treatment Plan: Discussed patient possibility of going home and following up with her counselor for her bipolar disorder. She was amenable to this plan. However, she called the counselor and he feels that she needs to be hospitalized. Counseling center was contacted and they will see the patient. Alcohol level, drug screen, and Depakote level were added. Disposition: Pending Impression: 1. Anxiety. 2. Atypical chest pain. 3. CHELY score of 0. 4. Bipolar disorder. This note was generated with [employer] dictation software. It may contain incorrect words, spelling, and punctuation that were not noted in review of the chart prior to signing ED Disposition - Plan for ED Patient: Chief Complaint: Anxiety Instructions: ED Manic Depression Referrals: Krystyna Red MD [Primary Care Provider] - 1-2 Days if not improving Counseling,Center [GROUP OF PHYSICIANS] - As soon as possible What to do if you have Problems For any increased pain, shortness of breath, bleeding, nausea or vomiting, chest pain, or any unexpected problems, contact your Primary Care Provider. Call [facility] ([phone]) or report to the closest Emergency Room. Call 911 if necessary. 11/03/18 0105 <Electronically signed by Jt Duenas MD> Date Jt Duenas MD Cosigner Signature (If Indicated): Date CC: Krystyna Red MD URINE DRUG SCREEN Collected: 11/01/2018 Status: F Source[facility] [place] [facility] 4[facility]50 PM [facility] REPOSITORY TYPE CODE TESTS RESULT OUT OF RANGE REFERENCE UNITS LAB L505.0075 TO BE Normal CONFIRMED Result Comment: CONFIRMATORY TESTING FOR ALL POSITIVE URINE DRUG SCREEN RESULTS WILL ONLY BE SENT OUT UPON PHYSICIAN ORDER. VISTA Urine Drug Screen methods provide only preliminary analytical test results. A more specific alternate chemical method must be used in order to obtain a confirmed analytical result. Gas chromatography/mass spectrometery (GC/MS) is the preferred confirmatory method. Clinical consideration and professional judgement should be applied to any drug of abuse test result, particularly when preliminary positive results are used. URINE TCA TESTING MUST BE ORDERED SEPARATELY. USE TEST MNEMONIC: [facility] LAB L505.5005 VISTA UDS PH 6 Normal LAB L505.5015 <1000 ng/mL AMPHETAMINES Normal NEGATIVE LAB L505.5025 < 200 ng/mL BARBITIURATES Normal NEGATIVE LAB L505.5035 < 200 ng/mL BENZODIAZIPINE Normal NEGATIVE LAB L505.5045 < 300 ng/mL COCAINE Normal NEGATIVE LAB L505.5055 < 500 High ng/mL ECSTACY POSITIVE LAB L505.5065 < 300 ng/mL METHADONE Normal NEGATIVE LAB L505.5075 < 300 ng/mL OPIATES Normal NEGATIVE LAB L505.5085 < 25 ng/mL PCP Normal NEGATIVE LAB L505.5095 < 50 ng/mL THC Normal NEGATIVE Performed By: #### L505.5000 #### [facility] [address] [place], [address] CBC W/DIFF, AUTOMATED Collected: 11/01/2018 Status: F Source: [place] 2:30 PM [facility] REPOSITORY TYPE CODE TESTS RESULT OUT OF RANGE REFERENCE UNITS LAB L100.1000 4.4-11.0 K/mm3 Normal WBC 10.0 LAB L100.1200 4.2-5.4 M/mm3 Normal RBC 4.75 LAB L100.1300 12.0-15.0 g/dl Normal HGB 13.5 LAB L100.1400 37-47 % Normal HCT 39.3 LAB L100.1500 81-99 fL Normal MCV 82.7 LAB L100.1600 27.0-32.0 pg Normal MCH 28.4 LAB L100.1700 32-36 g/gl Normal MCHC 34.4 LAB L100.1810 11.6-14.6 % Normal RDW CV 12.7 LAB L100.1820 35.1-43.9 fl Normal RDW SD 38.1 LAB L100.1900 150-450 K/mm3 Normal PLT 210 LAB L100.2000 6.2-12.0 fl Normal MPV 9.8 LAB L100.2100 47-70 % High NEUT% 70.2 LAB L100.2200 19-41 % Normal LY% 23.3 LAB L100.2300 0-10 % Normal MONO% 5.4 LAB L100.2400 0-5 % Normal EO% 0.8 LAB L100.2500 0-1 % Normal BASO% 0.1 LAB L100.2550 0.0-0.9 % Normal IM GRAN % 0.200 Result Comment: IG% - Immature Granulocytes (promyelocytes, myelocytes and metamyelocytes) > 1% indicates that a LEFT SHIFT is Present. LAB L100.2620 2.0-7.7 X10 3/uL Normal Absolute Neut 7.0 LAB L100.2720 0.83-4.51 X10 3/ul Normal Absolute Lymph 2.33 Performed By: #### L100.0100 #### [facility] [address] [place], [place], [id number] BASIC METABOLIC Collected: 11/01/2018 Status: F Source: [place] PROFILE (BMP) 2:30 PM [facility] REPOSITORY TYPE CODE TESTS RESULT OUT OF RANGE REFERENCE UNITS LAB L501.0100 74-106 mg/dL Normal GLU 79 Result Comment: Please note revised GLUCOSE reference range effective 2017. LAB L501.1000 7-18 mg/dL Normal BUN 9 LAB L501.1100 0.55-1.02 mg/dL Normal CREAT,SERUM 0.77 Result Comment: The validity of the calculated GFR AND GFRAA in patients over 70 years has not been determined. Clinical correlation is essential. LAB L501.1110 >60 mL/min Normal EST GFR 95 Result Comment: Non- GFR Calc LAB L501.1115 >60 mL/min Normal EST GFR - AA 115 Result Comment: GFR Calc LAB L501.1255 ml/min Normal Estimated CRCL 98.75 LAB L501.1300 10-20 RATIO Normal BUN/CRE 11.7 LAB L501.2200 8.5-10 mg/dL Normal .1 CA 8.8 LAB L501.5300 136-14 mmol/L Normal 5 NA 139 LAB L501.5600 3.5-5. mmol/L Normal 1 K 3.5 LAB L501.5900 98-107 mmol/L Normal CL 105 LAB L501.6100 21.0-3 mmol/L Normal 2.0 CO2 26.0 LAB L501.6200 5-15 Normal GAP 8 Performed By: #### L500.2500, L501.4010 #### [facility] [address] [place], [address] TROPONIN-I Collected: 11/01/2018 Status: F Source: [place] 2:30 PM [facility] REPOSITORY TYPE CODE TESTS RESULT OUT OF RANGE REFERENCE UNITS LAB L501.4010 <0.045 ng/mL Normal < 0.015 TROPONIN-I Result Comment: TROPONIN-I EXPECTED VALUES <0.045 Negative 0.045 - 0.590 Consistent with Cardiac Damage > OR = 0.600 Critical Value Not every elevated troponin is indicative of ME. These values should be used with clinical judgement in examining the patient's clinical picture for diagnosis. To establish a diagnosis of ME versus myocardial injury, there must be a demonstrated rise and/or fall in the troponin values, in addition to ischemic symptoms, EKG changes, new regional wall motion abnormality, and/or angiographical evidence. PLEASE NOTE: REFERENCE RANGES EDITED 18 Performed By: #### L500.2500, L501.4010 #### [facility] [address] [place], [place], [address] ,SERUM,HCG QUALI. Collected: Status: F Source: [place] 11/01/2018 2:30 PM [facility] REPOSITORY TYPE CODE TESTS RESULT OUT OF REFERENCE UNITS RANGE LAB L700.6700 =>Qualitative mIU/mL Normal HCG Qual < 1 triggr LAB L700.7000 0-9 Nonpreg Negative Normal HCGSQUAL NEGATIVE Performed By: #### L700.6800 #### [facility] [address] [place], [address] ALCOHOL, BLOOD Collected: 11/01/2018 Status: F Source: [place] (MEDICAL)-SERUM 2:30 PM [facility] REPOSITORY TYPE CODE TESTS RESULT OUT OF RANGE REFERENCE UNITS LAB L501.9100 mg/dL Normal SERUM < 3.0 ETOH Result Comment: The serum:whole blood ethanol ratio is approximately 1.14 and varies slightly with hematocrit. Medical Alcohol reference interval and critical value in non-tolerant individuals; 50 - 100 Impairment 100 Intoxication 100 - 250 Severe Poisoning 250 - 400 Deep/possible fatal coma Performed By: #### L501.9100 #### [facility] [address] [place] [address], [address] VALPROIC ACID Collected: 11/01/2018 Status: F Source: [place] (DEPAKENE) LEVEL 2:30 PM [facility] REPOSITORY TYPE CODE TESTS RESULT OUT OF REFERENCE UNITS RANGE LAB L501.8100 50-100 ug/mL Low VALPROIC ACID 24 Performed By: #### L501.8100 #### [facility] [address] [place], [address] CHEST 1 VIEW Observed: 11/01/2018 Status: F Source: [place] (PORTABLE) 1:44 PM [facility] REPOSITORY [facility] Imaging Services [address] [place] [address] Chest 1 View (Portable) MR#: [id number] Acct: [id number] Name: GRETA ANDRES Rep #: [id number] : 1990 F 28 From: Oliverio Barcenas MD PCP: Krystyna Red MD Status: REG ER Study: Chest 1 View (Portable) Date of Exam: 11/01/18 Exam# [id number] Ordering Dr: Jt Duenas MD STUDY: X-RAY CHEST REASON FOR EXAM: Female, 28 years old. Increased anxiety. Chest pain. TECHNIQUE: Single AP portable view of the chest. COMPARISON: Comparison is made with prior study dated September 28, 2016. FINDINGS: The lungs are clear and expanded. There is no demonstrated pleural abnormality. Normal size heart. Normal mediastinum and noreen. Normal visualized pulmonary arteries. Normal visualized aortic arch and descending thoracic aorta. Normal visualized thoracic spine. Normal visualized ribs, clavicles, and shoulders. There is no demonstrated abnormality of the visualized soft tissue structures of the upper abdomen. RAD/Chest 1 View (Portable) IMPRESSION: Normal x-ray examination of the chest. Electronically Signed: Oliverio Barcenas MD at 14:19 EST Tel [phone], Service support , CC: Krystyna Red MD; Jt Duenas MD Senior Telecommunications Consultant: Signed COMPREHENSIVE METABOLIC Collected: 09/18/2018 Status: F Source: [place] GARCIA 11:02 AM [facility] REPOSITORY TYPE CODE TESTS RESULT OUT OF RANGE REFERENCE UNITS LAB L501.0100 74-106 mg/dL Normal GLU 95 Result Comment: Please note revised GLUCOSE reference range effective 2017. LAB L501.1000 7-18 mg/dL Normal BUN 12 LAB L501.1100 0.55-1.02 mg/dL Normal CREAT,SERUM 0.88 Result Comment: The validity of the calculated GFR AND GFRAA in patients over 70 years has not been determined. Clinical correlation is essential. LAB L501.1110 >60 mL/min Normal EST GFR 82 Result Comment: Non- GFR Calc LAB L501.1115 >60 mL/min Normal EST GFR - AA 99 Result Comment: GFR Calc LAB L501.1300 10-20 RATIO Normal BUN/CRE 13.7 LAB L501.1500 6.4-8.2 g/dL T Normal PROT 7.7 LAB L501.1800 3.2-5.0 g/dL Normal ALB 3.8 LAB L501.1950 2.2-4.2 g/dL Normal GLOB 3.9 LAB L501.2000 0.9-2.4 RATIO Normal A/G 1.0 LAB L501.2200 8.5-10.1 mg/dL CA Normal 8.9 LAB L501.4100 15-37 U/L Low AST 12 LAB L501.4305 45-117 U/L Normal ALK P 78 LAB L501.4405 13-56 U/L Normal ALT 24 LAB L501.4600 0.20-1.00 mg/dL T Normal BILI 0.30 LAB L501.5300 136-145 mmol/L NA Normal 142 LAB L501.5600 3.5-5.1 mmol/L K Normal 4.0 LAB L501.5900 98-107 mmol/L CL Normal 107 LAB L501.6100 21.0-32.0 mmol/L Normal CO2 26.0 LAB L501.6200 5-15 Normal GAP 9 Performed By: #### L500.4050, L501.9520 #### [facility] [address] [place], [place], [id number] THYROID STIM HORMONE Collected: 09/18/2018 Status: F Source: [place] (TSH) 11:02 AM [facility] REPOSITORY TYPE CODE TESTS RESULT OUT OF RANGE REFERENCE UNITS LAB L501.9520 0.358-3.74 uIU/mL Normal TSH 1.48 Performed By: #### L500.4050, L501.9520 #### [facility] [address] [place], [place], [id number] VALPROIC ACID Collected: 09/18/2018 Status: F Source: [place] (DEPAKENE) LEVEL 11:02 AM [facility] REPOSITORY TYPE CODE TESTS RESULT OUT OF RANGE REFERENCE UNITS LAB L501.8100 50-100 ug/mL Normal VALPROIC ACID 63 Performed By: #### L501.8100 #### [facility] [address] [place], [place], [id number] URINALYSIS Collected: 09/01/2018 Status: F Source: [facility] 1:35 PM [facility] REPOSITORY TYPE CODE TESTS RESULT OUT OF REFERENCE UNITS RANGE LAB URINALYSIS (LOINC) URINALYSIS Result Comment: URINALYSIS LAB Specimen Type(LOINC) Specimen R Type LAB Color(LOINC) NORMAL: YELLOW Color p.yel LAB Clarity(LOINC) NORMAL: CLEAR Clarity clear LAB ph(LOINC) NORMAL: 5.0-8.0 ph 6.5 LAB Protein(LOINC) NORMAL: NEGATIVE Protein NEG LAB Glucose(LOINC) NORMAL: NORMAL Glucose NORM LAB Ketone(LOINC) NORMAL: NEGATIVE Ketone NEG LAB Bilirubin(LOINC) NORMAL: NEGATIVE Bilirubin NEG LAB Blood(LOINC) NORMAL: NEGATIVE Blood NEG LAB Urobilinog(LOINC) NORMAL: NORMAL Urobilinog NORM LAB Sp [place](LOINC) NORMAL: 1.010-1.030 Sp [place] 1.010 LAB Nitrite(LOINC) NORMAL: NEGATIVE Nitrite NEG LAB Leukocytes(LOINC) NORMAL: NEGATIVE Leukocytes NEG LAB Microscopic(LOINC ) Microscopic NOT INDICATED Performed By: #### [id number] #### [place] [address] URINE Collected: 09/01/2018 Status: F Source: [facility] 1:35 PM [facility] REPOSITORY TYPE CODE TESTS RESULT OUT OF REFERENCE UNITS RANGE LAB NEGATIVE UR(LOINC) UR NEGATIVE LAB INTERNAL QC(LOINC) INTERNAL QC PASS LAB EXTERNAL QC DONE?(LOINC) EXTERNAL QC YES DONE? Performed By: #### [id number] #### [address] [address] CBC Collected: 09/01/2018 Status: F Source: [facility] 1:35 PM [facility] REPOSITORY TYPE CODE TESTS RESULT OUT OF RANGE REFERENCE UNITS LAB CBC(LOINC) CBC Result Comment: CBC-COMPLETE BLOOD COUNT LAB WBC(LOINC) 4.5 - 10.8 x 10EE3/UL WBC 10.3 LAB RBC(LOINC) 4.10 - x 10EE6/UL 5.30 RBC 4.88 LAB HEMOGLOBIN(LOINC) 12.0 - g/dl 16.0 HEMOGLOBIN 14.0 LAB HEMATOCRIT(LOINC) 34.0 - % 46.0 HEMATOCRIT 39.8 LAB MCV(LOINC) 80 - 99 fl MCV 82 LAB MCH(LOINC) 27 - 33 pg MCH 29 LAB MCHC(LOINC) 32 - 36 X10 3 MCHC 35 LAB RDW/CV(LOINC) 12.0 - % 15.6 RDW/CV 13.7 LAB PLATELET(LOINC) 150 - 450 x10EE3/UL PLATELET 248 LAB MPV(LOINC) 6.6 - 10.5 fl MPV 8.2 Result Comment: AUTOMATED DIFFERENTIAL LAB NEUT %(LOINC) 46.0 - 76.0 % NEUT % 63.0 LAB LYMPH %(LOINC) 20.0 - 45.0 % LYMPH % 27.7 LAB MONOS %(LOINC) 0.0 - 10.0 % MONOS % 6.3 LAB EO %(LOINC) 0.0 - 7.0 % EO % 2.3 LAB BASO %(LOINC) 0.0 - 2.0 % BASO % 0.7 LAB Lymph #(LOINC) 0.80 - 2.80 x10EE3/U L Lymph # High 2.90 LAB Neut #(LOINC) 1.50 - 7.10 x10EE3/U L Neut # 6.50 LAB [place] #(LOINC) 0.20 - 1.00 x10EE3/U L [place] # 0.60 LAB EO #(LOINC) 0.00 - 0.50 x10EE3/U L EO # 0.20 LAB Baso #(LOINC) 0.00 - 0.10 x10EE3/U L Baso # 0.10 LAB MANUAL DIFF(LOINC) MANUAL DIFF N/A LAB MORPHOLOGY(LOINC ) MORPHOLOGY N/A Result Comment: {CD] Performed By: #### [id number] #### [facility],[address] [place] [address] LIPASE Collected: 09/01/2018 Status: F Source: [facility] 1:35 PM [facility] REPOSITORY TYPE CODE TESTS RESULT OUT OF REFERENCE UNITS RANGE LAB LIPASE(LOIN 18.0 - 51.0 U/L C) LIPASE 40.0 Performed By: #### [id number] #### [facility],[address] [place] [address] CMP WITH EGFR Collected: 09/01/2018 Status: F [facility] PM [facility] REPOSITORY TYPE CODE TESTS RESULT OUT OF RANGE REFERENCE UNITS LAB CMP with eGFR(LOINC) CMP with eGFR Result Comment: COMPREHENSIVE METABOLIC PANEL LAB SODIUM(LOINC) 136 - 145 mmol/l SODIUM 138 LAB POTASSIUM(LOINC) 3.5 - 5.1 mmol/L POTASSIUM 3.7 LAB CHLORIDE(LOINC) 98 - 107 mmol/L CHLORIDE 104 LAB CO2(LOINC) 21.0 - mmol/L 31.0 CO2 25.9 LAB GLUCOSE(LOINC) 74 - 106 mg/dl GLUCOSE 78 LAB BUN(LOINC) 6 - 20 mg/dl BUN 10 LAB CREATININE(LOINC) 0.6 - 1.2 mg/dl CREATININE 0.8 LAB AST/SGOT(LOINC) 13 - 39 U/L AST/SGOT 14 LAB ALK PHOS(LOINC) 38 - 126 U/L ALK PHOS 61 LAB CALCIUM(LOINC) 8.6 - mg/dl 10.2 CALCIUM 9.4 LAB TOTAL PROTEIN(LOINC) 6.4 - 8.3 g/dl TOTAL PROTEIN 8.0 LAB ALBUMIN(LOINC) 3.4 - 4.8 g/dL ALBUMIN 4.7 LAB GLOBULIN(LOINC) 1.5 - 3.8 G/DL GLOBULIN 3.3 LAB A/G RATIO(LOINC) 0.9 - 1.6 A/G RATIO 1.4 LAB TOTAL BILI(LOINC) 0.0 - 1.5 mg/dl TOTAL BILI 0.4 LAB B/C RATIO(LOINC) 0 - 30 ratio B/C RATIO 13 LAB ALT/SGPT(LOINC) 8 - 35 U/L ALT/SGPT 12 LAB ANION GAP(LOINC) 10 - 20 mmol/L ANION GAP 12 LAB AGE(LOINC) years AGE 28 LAB eGFR(LOINC) 60 - 999 ML/MINUTE eGFR >60 LAB eGFR(AA)(LOINC) 60 - 999 ML/MINUTE eGFR(AA) >60 Result Comment: ACCORDING TO THE NATIONAL KIDNEY DISEASE EDUCATION PROGRAM(NKDE), A NORMAL eGFR IS A VALUE GREATER THAN OR EQUAL TO 60 ML/MIN/1.73 SQ METERS. CHRONIC KIDNEY DISEASE: <60mL/MIN/1.73 SQ METERS KIDNEY FAILURE: <15mL/MIN/1.73 SQ METERS THIS TEST SHOULD ONLY BE USED FOR PATIENTS 18 YEARS OF AGE AND OLDER. Performed By: #### [id number] #### [facility],[address] [place], [place] [id number] CT KUB (KIDNEY STONE Observed: 09/01/2018 Status: F Source: [facility] PROTOCOL) 1:32 PM [place] [address] Patient: GRETA ANDRES Phone#: : 1990 Age: 28 Gender: F Pt. Type: ER Account: [id number] Location: [facility] Ordering: IRAM ACOSTA Exam Date: 09/01/2018/13:27 Family Phys: Charge Code: [id number] Physician: [place] Order #: [id number] DLP Dose#: PROCEDURE: CT ABDOMEN AND PELVIS WITHOUT CONTRAST COMPARISON: [facility], CT, ABDOMEN/PELVIS W/O CON, 07/16/2017, 9:36. INDICATIONS: Abdominal pain TECHNIQUE: After obtaining the patient's consent, CT images of the abdomen and pelvis were created without non-ionic intravenous contrast material. All CT scans at this facility use dose modulation, iterative reconstruction, and/or weight based dosing when appropriate to reduce radiation dose to as low as reasonably achievable. IV CONTRAST: No IV contrast used,0ml TOTAL DOSE: 7.30 CTDIvol(mGy) FINDINGS: KIDNEYS: Nonobstructing bilateral renal calculi are present. There is no evidence of hydronephrosis or ureteral calculi. ADRENALS: Normal. No mass or enlargement. URINARY BLADDER: Normal. No visible focal wall thickening, lesion, or calculus. LIVER: Normal. No enlargement, atrophy, abnormal density, or significant focal lesion. BILIARY: Normal. No visible dilatation or calcification. PANCREAS: Normal. No lesion, fluid collection, ductal dilatation, or atrophy. SPLEEN: Normal. No enlargement or focal lesion. AORTA/VASCULAR: Normal. No aneurysm. RETROPERITONEUM: Normal. No mass or adenopathy. BOWEL/MESENTERY: Normal. No visible mass, obstruction, or bowel wall thickening. ABDOMINAL WALL: Normal. No mass or hernia. PELVIC NODES: Normal. No adenopathy. PELVIC ORGANS: 5.3 cm left adnexal cyst is present. There is no evidence of free fluid. Continued Report - Page 2 of 2 Patient: GRETA ANDRES Phone#: : 1990 Age: 28 Gender: F Pt. Type: ER Account: [id number] Location: 052 Ordering: IRAM ACOSTA Exam Date: 09/01/2018/13:27 Family Phys: Charge Code: [id number] Physician: [place] Order #: [id number] DLP Dose#: BONES: Normal. No bony lesion or fracture. LUNG BASES: Normal. No visible pulmonary or pleural disease. OTHER: Negative. CONCLUSION: 1. A 5.3 cm left adnexal cyst is present. 2. Bilateral nonobstructing renal calculi are present. Dictated by: Fabiola Cantrell MD on 09/01/2018 at 13:48 Approved by: Fabiola Cantrell MD on 09/01/2018 at 13:48 EMERGENCY REPORT Observed: 09/01/2018 Status: F Source: [facility] 12:57 PM [facility] REPORT NAME ACCOUNT SEX AGE ADMIT DISCHARGE PT MED. RECORD# NUMBER DATE DATE TYPE MCKENNA [id number] F 28 09/01/18 09/01/18 Koki HERNANDES [id number] ROOM: ER DATE OF : 1990 DICTATING PHYSICIAN: Iram Acosta HISTORY OF PRESENT ILLNESS: The patient had sudden onset of left flank pain that radiates into the front. She has had a history of kidney stones, and it feels like her kidney stones and she presented to the emergency department. She said it was a 7 out of 10. She had nausea. She did not vomit. PAST MEDICAL HISTORY: She has a history of asthma, kidney stones. PAST SURGICAL HISTORY: She has had back injections, knee surgery, and sinus surgery. SOCIAL HISTORY: She does not smoke or drink. She is here with, I believe, her father. REVIEW OF SYSTEMS: Eight systems reviewed and negative except as mentioned above. PHYSICAL EXAMINATION: She is an awake, alert, and oriented female in no acute distress. She is afebrile. Blood pressure 144/102, pulse 76, respirations 17, and pulse ox 100% on room air. Head is normocephalic and atraumatic. Eyes: Pupils are equal, round, and reactive to light. Extraocular muscles intact. Nares are patent.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 [History Confirmed 03/29/18] traMADol [Ultram (G)] 50 mg PO Q4H PRN PRN 09/28/16 [History Confirmed 03/29/18] amoxicillin 875 mg-potassium clavulanate 125 mg tablet 1 tab PO Q12H 10 Days #20 tab 03/29/18 [Rx Confirmed 03/29/18] divalproex 250 mg tablet,delayed release 250 mg PO BID 03/29/18 [History Confirmed 03/29/18] quetiapine 25 mg tablet 25 mg PO BID 03/29/18 [History Confirmed 03/29/18] [facility] Medical History Asthma (Acute) Environmental allergies (Acute) Social History Smoking Status: Never smoker alcohol intake: never HPI HPI Details: GRETA ANDRES, is a 28 F who presents to the office today for sinus pain and pressure as well as left earache. Patient states that for the past week she has had sinus pressure and pain and over the past several days has developed new earache. She denies any otorrhea or hearing change/loss. She states that the sinus pressure is particularly to her maxillary sinuses. She also states that is because headache which is made better with ibuprofen and Tylenol. She denies any fever, chills, sweats. No nausea, vomiting, diarrhea. No other associated symptoms or alleviating/aggravating factors. ROS Const Constitutional: Positive for headache(s); no fever(s), chills, night sweats or abnormal sleep pattern ENT ENT: Positive for headache(s), nasal congestion, sinus pressure, sinus pain and nasal discharge; no ear pain Resp Respiratory: No cough or shortness of breath Cardio Cardiology: No shortness of breath, irregular heart rhythm or fast heart rate Neuro Neurology: Positive for headache(s); no confusion Psych Psychiatric: No abnormal sleep pattern, No confusion Exam Const General: cooperative, healthy appearing [facility] Head: normal to inspection Ears: hearing grossly normal bilaterally, TM's normal bilaterally, EAC's normal Nose: nasal discharge purulent Face and sinus: sinus tenderness frontal and maxillary Mouth: oral mucosae normal Throat: abnormal tonsil bilaterally, postnasal drainage Resp Effort AND Inspection: normal respiratory effort Auscultation: Bilateral: Clear to Auscultation Cardio Palpation: normal PMI Rate: regular rate Rhythm: regular rhythm Neuro General: alert, CN's II-XI intact bilaterally Psych Appearance: grossly normal Mental Status: mental status grossly normal Assessment AND Plan Problems 1. Acute non-recurrent maxillary sinusitis J01.00 2. Other acute nonsuppurative otitis media of left ear, recurrence not specified H65.192 Status Acute Plan Augmentin as prescribed today. Encouraged to get plenty of rest, drink lots of clear liquids, and use Tylenol or Ibuprofen (unless contraindicated) for fever and comfort. Patient also educated on other symptomatic management techniques. To be seen in 7-10 days if no improvement; sooner if worsening of symptoms. Patient advised of potential red flags when appropriate report to the ED. Patient verbalized understanding of all the above. This note was generated with [employer]Line[employer] software. It may contain incorrect words, spelling, and punctuation that were not noted in checking the note before signing. Medications New: Coding Level of Care Code Off vis,new,level 3 Diagnoses Acute non-recurrent maxillary sinusitis J01.00 Sinusitis location: maxillary Chronicity: acute Recurrence: non-recurrent Other acute nonsuppurative otitis media of left ear, recurrence not specified H65.192 Otitis media type: other nonsuppurative Chronicity: acute Laterality: left Recurrence: not specified as recurrent 03/29/18 1609 <Electronically signed by Brady WILCOX> Date Brady WILCOX Cosigner Signature: Date (if applicable) CC: HOSP Observed: 03/22/2018 Status: COMPLETED Source: [place] 12:00 AM [facility] REPOSITORY Patient Update (FAMPWS) GRETA ANDRES ([id number]) 1990 F Date Time Provider Department 03/22/18 [facility] During your visit today, we recorded the following information about you: Allergies As of Date: 03/22/2018 Noted Allergy Reaction ADDERALL (DEXTROAMPHETAMINE-AMPHE*03/20/2015 5 - Intolerance Comments: Heart racing, chest pain, diaphoretic, dizzy ADHESIVE 02/12/2010 2 - Rash animals [Other] 07/23/2005 Environmental allergies [Other] 06/20/2008 Comments: Dust mites, ragweed MORPHINE SULFATE 11/12/2008 9 - Itching Comments: had vicodin at same time, but has taken vicodin in past without reaction Date Reviewed: 12/02/2017 Reviewed by: Baylee (Rn) DEANDRE Reese - Fully Assessed Order(s):divalproex ER (DEPAKOTE ER) 500 mg 24 hr tabletTake 1 tablet by mouth daily at bedtime. [facility]: Rfl: QUEtiapine (SEROQUEL) 100 mg tablet1/2 -1 tab before bed. [facility]: Prescriptions as of 03/22/2018 Sig: DIVALPROEX ER 500 MG TABLET,E* Take 1 tablet by mouth daily * QUETIAPINE 100 MG TABLET 1/2 -1 tab before bed. Per W* HYDROXYZINE HCL 25 MG TABLET Take 1 tablet by mouth every * CYCLOBENZAPRINE 10 MG TABLET Take 10 mg by mouth twice daphnie* RIZATRIPTAN 10 MG TABLET Take 1 tablet by mouth as nee* PROPRANOLOL 10 MG TABLET Take 1 tablet by mouth once d* CHOLECALCIFEROL (VITAMIN D3) * Take 1 capsule by mouth once * ALBUTEROL SULFATE HFA 90 MCG/* Inhale 2 Puffs as instructed * TRAMADOL 50 MG TABLET Take 50 mg by mouth every 6 h* GABAPENTIN 300 MG CAPSULE Take 2 capsules by mouth thre* ETONOGESTREL 68 MG SUBDERMAL * 68 mg by SUBDERMAL route one * MOMETASONE 220 MCG (60 DOSES)* Inhale 1 Puff as instructed t* CETIRIZINE 10 MG TABLET Take 1 tablet by mouth once d* MONTELUKAST 10 MG TABLET Take 1 tablet by mouth daily * More... Problem List As Of Date 03/22/2018 Noted Resolved Irregular menstrual cycle [N92.6] INVALID FOR* Priority: C Backache, unspecified [M54.9] INVALID FOR* Priority: D More... Other joint derangement, not elsewhere classifi*INVALID FOR* Priority: D Other acquired deformity of toe [M20.5X9] INVALID FOR* Priority: D More... More... Lactose intolerance [E73.9] INVALID FOR* Priority: C More... Anxiety, generalized [F41.1] INVALID FOR* Priority: A More... More... Congenital heart defect [Q24.9] INVALID FOR* Priority: C More... More... More... Lumbago [M54.5] INVALID FOR* Priority: D More... Lumbar degenerative disc disease [M51.36] INVALID FOR* Priority: D Sacroiliitis, not elsewhere classified (HCC) [M*INVALID FOR* Priority: D Back pain [M54.9] INVALID FOR* Priority: D Exercise-induced asthma [J45.990] INVALID FOR* Priority: A Vitamin D deficiency [E55.9] INVALID FOR* Priority: B Fibromyalgia [M79.7] INVALID FOR* Priority: A Multiple thyroid nodules [E04.2] INVALID FOR* Priority: A More... Routine gynecological examination [Z01.419] INVALID FOR* Priority: D More... Screening for diabetes mellitus (DM) [Z13.1] INVALID FOR* Need for lipid screening [Z13.220] INVALID FOR* Uncontrolled daytime somnolence [R40.0] INVALID FOR* Priority: A Esophageal reflux [K21.9] INVALID FOR* Chronic fatigue disorder [R53.82] INVALID FOR* Priority: A Attention and concentration deficit [R41.840] INVALID FOR* Priority: A SI (sacroiliac) joint dysfunction [M53.3] INVALID FOR* Migraine without aura and without status migrai*INVALID FOR* Priority: A Well adult exam [Z00.00] INVALID FOR* Priority: E More... Bipolar 1 disorder (HCC) [F31.9] INVALID FOR* Priority: A More... PTSD (post-traumatic stress disorder) [F43.10] INVALID FOR* Priority: A Prescriptions ordered this encounter Disp Refills Start End DIVALPROEX ER 500 MG TABLET,EXTENDED* 03/22/2018 Class: Med Update Route: ORAL Sig: Take 1 tablet by mouth daily at bedtime. [facility] QUETIAPINE 100 MG TABLET 03/22/2018 Class: Med Update Si/2 -1 tab before bed. [facility] Medications Discontinued During This Encounter divalproex ER (DEPAKOTE ER) 500 mg 2* 02/14/2018 03/22/2018 Class: Med Update Route: ORAL Sig: Take 1 tablet by mouth daily at bedtime. Per [facility] Disc: Reason for discontinue is not on file. Encounter Status:Closed by KRYSTYNA RED on 03/22/18 VALPROIC ACID Collected: 03/17/2018 Status: F Source: ANTONY (DEPAKENE) LEVEL 1:41 PM [facility] REPOSITORY TYPE CODE TESTS RESULT OUT OF RANGE REFERENCE UNITS LAB L501.8100 50-100 ug/mL Normal VALPROIC ACID 63 Performed By: #### L501.8100 #### [facility] [address] [place], [address] HOSP Observed: 02/14/2018 Status: COMPLETED Source: [place] 12:00 AM [facility] REPOSITORY Patient Update (FAMPWS) GRETA ANDRES ([id number]) 1990 F Date Time Provider Department 02/14/18 [facility] During your visit today, we recorded the following information about you: Allergies As of Date: 02/14/2018 Noted Allergy Reaction ADDERALL (DEXTROAMPHETAMINE-AMPHE*03/20/2015 5 - Intolerance Comments: Heart racing, chest pain, diaphoretic, dizzy ADHESIVE 02/12/2010 2 - Rash Environmental allergies [Other] 06/20/2008 Comments: Dust mites, ragweed MORPHINE SULFATE 11/12/2008 9 - Itching Comments: had vicodin at same time, but has taken vicodin in past without reaction animals [Other] 07/23/2005 Date Reviewed: 12/02/2017 Reviewed by: Baylee Armendariz) DEANDRE Reese - Fully Assessed Visit Diagnoses:Bipolar 1 disorder (HCC) [F31.9] PTSD (post-traumatic stress disorder) [F43.10] Order(s):divalproex ER (DEPAKOTE ER) 500 mg 24 hr tabletTake 1 tablet by mouth daily at bedtime. [facility]: Rfl: Prescriptions as of 02/14/2018 Sig: DIVALPROEX ER 500 MG TABLET,E* Take 1 tablet by mouth daily * HYDROXYZINE HCL 25 MG TABLET Take 1 tablet by mouth every * CYCLOBENZAPRINE 10 MG TABLET Take 10 mg by mouth twice daphnie* RIZATRIPTAN 10 MG TABLET Take 1 tablet by mouth as nee* PROPRANOLOL 10 MG TABLET Take 1 tablet by mouth once d* CHOLECALCIFEROL (VITAMIN D3) * Take 1 capsule by mouth once * ALBUTEROL SULFATE HFA 90 MCG/* Inhale 2 Puffs as instructed * TRAMADOL 50 MG TABLET Take 50 mg by mouth every 6 h* GABAPENTIN 300 MG CAPSULE Take 2 capsules by mouth thre* ETONOGESTREL 68 MG SUBDERMAL * 68 mg by SUBDERMAL route one * MOMETASONE 220 MCG (60 DOSES)* Inhale 1 Puff as instructed t* CETIRIZINE 10 MG TABLET Take 1 tablet by mouth once d* MONTELUKAST 10 MG TABLET Take 1 tablet by mouth daily * Medication notes this encounter BUSPIRONE 15 MG TABLET >> Krystyna Red MD 02/14/2018 1:16 PM [facility] SERTRALINE 100 MG TABLET >> Krystyna Red MD 02/14/2018 1:16 PM [facility] More... Problem List As Of Date 02/14/2018 Noted Resolved Irregular menstrual cycle [N92.6] INVALID FOR* Priority: C Backache, unspecified [M54.9] INVALID FOR* Priority: D More... Other joint derangement, not elsewhere classifi*INVALID FOR* Priority: D Other acquired deformity of toe [M20.5X9] INVALID FOR* Priority: D More... More... Lactose intolerance [E73.9] INVALID FOR* Priority: C More... Anxiety, generalized [F41.1] INVALID FOR* Priority: A More... More... Congenital heart defect [Q24.9] INVALID FOR* Priority: C More... More... More... Lumbago [M54.5] INVALID FOR* Priority: D More... Lumbar degenerative disc disease [M51.36] INVALID FOR* Priority: D Sacroiliitis, not elsewhere classified (HCC) [M*INVALID FOR* Priority: D Back pain [M54.9] INVALID FOR* Priority: D Exercise-induced asthma [J45.990] INVALID FOR* Priority: A Vitamin D deficiency [E55.9] INVALID FOR* Priority: B Fibromyalgia [M79.7] INVALID FOR* Priority: A Multiple thyroid nodules [E04.2] INVALID FOR* Priority: A More... Routine gynecological examination [Z01.419] INVALID FOR* Priority: D More... Screening for diabetes mellitus (DM) [Z13.1] INVALID FOR* Need for lipid screening [Z13.220] INVALID FOR* Uncontrolled daytime somnolence [R40.0] INVALID FOR* Priority: A Esophageal reflux [K21.9] INVALID FOR* Chronic fatigue disorder [R53.82] INVALID FOR* Priority: A Attention and concentration deficit [R41.840] INVALID FOR* Priority: A SI (sacroiliac) joint dysfunction [M53.3] INVALID FOR* Migraine without aura and without status migrai*INVALID FOR* Priority: A Well adult exam [Z00.00] INVALID FOR* Priority: E More... Bipolar 1 disorder (HCC) [F31.9] INVALID FOR* Priority: A More... PTSD (post-traumatic stress disorder) [F43.10] INVALID FOR* Priority: A Prescriptions ordered this encounter Disp Refills Start End DIVALPROEX ER 500 MG TABLET,EXTENDED* 02/14/2018 Class: Med Update Route: ORAL Sig: Take 1 tablet by mouth daily at bedtime. Per [facility] Medications Discontinued During This Encounter busPIRone (BUSPAR) 15 mg tablet 60 t* 3 12/02/2017 02/14/2018 Sig: Take 1/2 a tab by mouth twice a day for 2 weeks than one twice a day. Disc: Discontinued by another Health Care Provider sertraline (ZOLOFT) 100 mg tablet 45 t* 5 10/19/2017 02/14/2018 Route: ORAL Sig: Take 1.5 tablets by mouth once daily. Disc: Discontinued by another Health Care Provider Encounter Status:Closed by KRYSTYNA RED on 02/14/18 ALLERGIES ALLERGIES DATE TYPE / CODE NAME / CODE REACTION SEVERITY SOURCE 11/01/2018 Drug morphine/F006 Rash Unknown [place] Allergy/032282320( 984464(RXNORM [facility]) ) Hospital Repository 11/01/2018 Drug amphetamine/F Unknown [place] Allergy/502003614( 378909530(RXN [facility]) ORM) Hospital Repository 11/01/2018 Drug dextroampheta Unknown [facility] [place] Allergy/048825325( mine/S2884379 [facility]) 93(RXNORM) Hospital Repository 03/20/2015 DRUG/344783086(SNO DEXTROAMPHETA INTOLERANCE [facility] CT) MINE-AMPHETAM Clinic Main INE [place] Repository 02/12/2010 DRUG ADHESIVE RASH [place] INGREDI/754711513( Clinic Main SNOMED CT) [place] Repository 11/12/2008 DRUG MORPHINE ITCHING [place] INGREDI/640634351( SULFATE Clinic Main SNOMED CT) [place] Repository 06/20/2008 Miscellaneous OTHER [place] Allergy/665168749( [facility] Main SNOM[facility]) [place] Repository Drug MORPHINE/0000 HIVES Moderate [place] Allergy/117612407( 0418(RXNORM) ([facility]) Modifier) [facility] (Qualifier Repository Value) ENCOUNTERS ENCOUNTERS ADMIT/DISCHARGE ACCOUNT ADMITTING ENCOUNTER LOCATION SOURCE NUMBER CLASS 11/01/2018/11/02/20 [id number] Emergency [address] ing:ED Repository 09/18/2018 [id number] General acute hospital ing:LAB Repository 09/01/2018/09/01/[id number] DAVE Emergency BuildinR Tanmay Caruso 18 IRAM anders: ERBed: B [facility] Repository 07/18/2018/07/18/20 [id number] Ambulatory BMSBuilding:B [place] [facility] Repository 05/10/2018/05/12/20 [id number] Ambulatory [address] Repository 03/29/2018/03/29/20 [id number] Ambulatory BMSBuilding:B [place] [address] [facility] Repository 03/17/2018 [id number] Ambulatory [facility] ing:LAB Repository 03/02/2018 [id number] [facility] Rep[facility] 02/10/2018/02/20/20 [id number] Ambulatory [place] [address] ing:BHIOP Repository PAYERS PAYERS ENCOUNTER GUARANTOR PAYER SUBSCRIBER SOURCE 11/01/2018 GRETA N Primary GRETA N [place] [id number] Insurance:CARESOURCEPo AKERSDOB: [facility] [place] licy Number: [id number] Hospital [facility] [id number] [place]ository [place] [address]Sqj: Date:2018-11-01[address]ATTN: CLAIMS () [place] [address]VE: 11/01/2018 Secondary NOT GIVENUNK [place] Insurance:SELF PAY [facility] Number: Effective Repository Date:2018-11-01 09/18/2018 GRETA N Primary GRETA N [place] [id number] Insurance:CARESOURCEPo AKERSDOB: [facility] [place] licy Number: [id number] Hospital RDFREDERMEGVALLEYWISE [facility] [id number] Repository [place] [address]Jye: Date:2018-09-18[address]ATTN: CLAIMS () [place] [address]CV: 09/18/2018 Secondary NOT GIVENUNK [place] Insurance:SELF PAY [facility] Number: Effective Repository Date:2018-09-18 09/01/2018 GRETA Primary GRETA N [place] Caruso AKERSDOB: Insurance:CARESOURCE AKERSDOB: [facility] [id number] Hospital [place] Number: [address] [place] [address] Repository [facility] [id number] [place] [address]Fbq: Date:Plan Name:Mohan Aviles [id number] () 07/18/2018 GRETA N Primary GRETA N [place] [id number] Insurance:CARESOURCEPo AKERSDOB: Community [place]icy Number: [id number] [id number] Repository [place], [place] [address]Dzo: Date:2018-07-18[address]ATTN: CLAIMS () [place] [address]DM: 07/18/2018 Secondary NOT GIVENUNK [place] Insurance:SELF PAY [facility] Number: Effective Repository Date:2018-07-18 03/29/2018 GRETA N Primary GRETA N [place] [id number] Insurance:CARESOURCEPo AKERSDOB: Community [place] Number: [id number] [facility] [id number] [place] [address]Fzd: Date:2018-03-29[address]ATTN: CLAIMS () [place] [address]QG: 03/29/2018 Secondary NOT GIVENUNK [place] Insurance:SELF PAY [facility] Number: Effective Repository Date:2018-03-29 03/17/2018 GRETA N Primary GRETA N [place] [id number] Insurance:CARESOURCEPo AKERSDOB: Community [place]icy Number: [id number] [id number] Repository [place], [place] [address]Xil: Date:2018-03-17[address]ATTN: CLAIMS () [place] [address]GJ: 03/17/2018 Secondary NOT GIVENUNK [place] Insurance:SELF PAY [facility] Number: Effective Repository Date:2018-03-17 03/02/2018 GRETA N Primary GRETA N [place] [id number] Insurance:CARESOURCEPo AKERSDOB: Community [place]icy Number: [id number] Joseph Hospital [id number] [place] [address]Ssm: Date:2018-02-08[address]ATTN: CLAIMS () [place] [address]UO: 03/02/2018 Secondary NOT GIVENUNK [place] Insurance:SELF PAY [facility] Number: Effective Repository Date:2018-02-20 02/10/2018 GRETA N Primary GRETA N [place] [id number] Insurance:CARESOURCEPo AKSARAB: Community [place]icy Number: [id number] Service UnitRIVERSIDE [facility] HOSPITALMEGVAL[facility] [id number] Repository [place], [place] [address]Vqd: Date:2018-02-08[address]ATTN: CLAIMS () [place] [address]W[place]: 02/10/2018 Secondary GRETA N [place] Insurance:MEDICAIDPoli AKERSDOB: Community [place] Number: Effective [id number] Hospital Date:2018-02-08 Repository 02/10/2018 Tertiary NOT GIVENUNK [place] Insurance:SELF PAY [facility] Number: Effective Repository Date:2018-02-08
== END 2018-11-02 00:44 ==
PROVIDERS: Emergency Medicine; Emergency Provider Emergency Medicine; Family Provider Family Medicine; PCP Family Medicine
DX: F41.9 Anxiety disorder, unspecified (principal); R07.89 Other chest pain; F31.9 Bipolar disorder, unspecified; J45.909 Unspecified asthma, uncomplicated
CPT/HCPCS: 71045; 80048; 80164; 80307; 80320; 84484; 84703; 85025; 93005; 96361; 96374; 96375; 99285; J7030; A4216; G0480; J2405

== ENCOUNTER → 2019-03-30 12:55 | Outpatient (CLI) | payer MEDICAID, SELFPAY ==
[2019-03-30 14:01] LABS: AST(SGOT) 11 U/L (15-37); Alanine Aminotransfer ALT/SGPT 16 U/L (13-56); Albumin, Serum 3.6 g/dL (3.2-5.0); Alkaline Phosphatase 62 U/L (45-117); Anion Gap 5 (5-15); BUN 12 mg/dL (7-18); BUN/Creat Ratio 15.1 RATIO (10-20); Calcium,Total 8.6 mg/dL (8.5-10.1); Chloride 109 mmol/L (98-107); Creatinine, Serum 0.79 mg/dL (0.55-1.02); EST Glomerular Filtration Rate 92 mL/min (>60); Est Glom Filt Rate - Afr Amer 111 mL/min (>60); Globulin 3.7 g/dL (2.2-4.2); Glucose 120 mg/dL (74-106); Potassium 3.9 mmol/L (3.5-5.1); Protein, Total 7.3 g/dL (6.4-8.2); Sodium Level 139 mmol/L (136-145); Thyroid Stim Hormone (TSH) 2.44 uIU/mL (0.358-3.74); Vitamin D,25 Hydroxy 20.7 ng/mL (29.95-100.01)
[2019-03-30 14:13] LABS: Digoxin Level 0.11 ng/mL (0.80-2.00); Valproic Acid (Depakene) Level 63 ug/mL (50-100)
== END ==
PROVIDERS: Family Provider Family Medicine; PCP Family Medicine
DX: Z79.899 Other long term (current) drug therapy (principal)
CPT/HCPCS: 36415; 80053; 80162; 80164; 80178; 82140; 82306; 84443

== ENCOUNTER 2019-10-02 11:30 | Emergency (ER) | payer MEDICAID, SELFPAY ==
[2019-10-02 11:31] VITALS: BP 119/79; PULSE 81; RESP 16; TEMP 36.8; O2SAT 100; BMI 26.2
[2019-10-02] MEDS: Mag Hydrox/Al Hydrox/Simeth 30 ML UDC PO (12:02)
[2019-10-02 12:21] LABS: Absolute Lymphocyte Count 4.49 X10^3/uL (0.83-4.51); Absolute Neutrophil Count 7.7 X10^3/uL (2.0-7.7); Basophil# 0.08 X10^3/uL; Basophil% 0.6 % (0-1); Eosinophil# 1.31 X10^3/uL; Hematocrit 37.7 % (37-47); Hemoglobin 13.1 g/dL (12.0-15.0); Lymphocyte # 4.49 X10^3/ul (4.0); Mean Corp Hgb Conc 34.7 g/dL (32-36); Mean Corpuscular Hgb 29.4 pg (27.0-32.0); Mean Corpuscular Volume 84.5 fL (81-99); Mean Platelet Vol. 10.8 fl (6.2-12.0); Monocyte# 0.75 X10^3/uL; Monocyte% 5.2 % (0-10); NRBC Flagged by Analyzer 0 % (0-5); Neutrophil # 7.71 X10^3/uL (2.7-7.7); Neutrophil % 53.2 % (47-70); POSITIVE COUNT YES; RBC Distribution Width CV 13.3 % (11.6-14.6); RBC Distribution Width SD 40.6 fl (35.1-43.9); Red Blood Count 4.46 M/mm3 (4.2-5.4); White Blood Count 14.5 K/mm3 (4.4-11.0)
[2019-10-02 12:27] LABS: Internal QC Validated? YES +Cl - CLEAR BKGD; Pregnancy, Serum, hCG Quali. NEGATIVE Negative
[2019-10-02 12:34] LABS: AST(SGOT) 37 U/L (15-37); Alanine Aminotransfer ALT/SGPT 19 U/L (13-56); Albumin, Serum 3.7 g/dL (3.2-5.0); Alkaline Phosphatase 70 U/L (45-117); Anion Gap 7 (5-15); BUN 8 mg/dL (7-18); BUN/Creat Ratio 9.3 RATIO (10-20); Bilirubin, Direct < 0.05 mg/dL (0.00-0.30); Chloride 109 mmol/L (98-107); Creatinine, Serum 0.86 mg/dL (0.55-1.02); EST Glomerular Filtration Rate 83 mL/min (>60); Est Glom Filt Rate - Afr Amer 101 mL/min (>60); Estimated Creatinine Clearance 87.64 ml/min; Globulin 3.8 g/dL (2.2-4.2); Glucose 67 mg/dL (74-106); Lipase 206 U/L (73-393); Protein, Total 7.5 g/dL (6.4-8.2); Sodium Level 138 mmol/L (136-145)
[2019-10-02 12:57] LABS: Differential Indicated SCAN CRITERIA MET
[2019-10-02 12:59] LABS: Platelet Morphology CLUMPED; Red Cell Morphology NORM C+C NORMAL (NORM C&C)
--- NOTE | 2019-10-02 13:15 | CT_ITS ---
STUDY: CT ABDOMEN AND PELVIS WITH CONTRAST REASON FOR EXAM: Female, 29 years old. 3 day history of abdominal pain with nausea and vomiting. RADIATION DOSAGE (If Supplied By Facility): CTDIvol = ( 13.40 ) mGy, DLP = ( 682.64 ) mGycm TECHNIQUE: Transaxial images were obtained from the dome of the diaphragm to the symphysis pubis without oral contrast. IV Isovue 300 100 was administered. Sagittal and coronal images were reconstructed. Individualized dose optimization techniques were used for this CT. COMPARISON: Comparison is made with prior study dated August 26, 2015. FINDINGS: Minimal increased markings at the lung bases suggestive of underlying atelectasis. The visualized portions of the heart are within normal limits. There is decreased attenuation of the liver consistent with steatosis. The patient is status post cholecystectomy. Minimal dilatation of the central intrahepatic biliary ducts most likely secondary to the prior cholecystectomy. Normal spleen. Normal pancreas. Normal bilateral adrenal glands. Normal right kidney. There are 2 tiny nonobstructive left intrarenal calculi. There is a small hiatal hernia. There are several nondistended fluid-filled small bowel loops throughout the abdomen. Normal colon. The appendix is visualized and appears normal. Normal abdominal aorta. Normal inferior vena cava. Normal retroperitoneum. Normal urinary bladder. A dominant follicle is seen in the left ovary measuring 1.8 cm. There is a 2.3 cm cyst in the right ovary. Normal abdominal wall. There is straightening of the normal lumbar lordosis. CT/Abdomen/Pelvis W IV Cont ONLY IMPRESSION: Fluid filled nondistended small bowel loops. Fatty infiltration of the liver. Prior cholecystectomy. Small right ovarian cyst. Dominant follicle in the left ovary. Electronically Signed: Oliverio Barcenas, at 13:51 EST , Service support ,
[2019-10-02 13:31] VITALS: RESP 16
--- NOTE | 2019-10-02 13:45 | ED.DCSUM_ITS ---
- ER Visit Summary Date of Service: 10/02/19 Chief Complaint: Abdominal pain History of Present Illness: The patient is a 29 F who presents the emergency department with 3 days of burning epigastric pain. She notes some associated nausea vomiting no diarrhea. States she was diagnosed with reflux in the past is to be on medicine but not anymore but states this is completely different than before. When asked why she states we will back that it was burning but now it is really burning. She has a history of asthma bipolar disorder hypothyroidism. She is a prior cholecystectomy. Her thyroid was removed for thyroid cancer 2 months ago. Physical Examination: Afebrile vital signs Gen: Well-nourished well-developed Head: Normocephalic atraumatic Eyes: Perrl EOMI ENT: TMs clear no rhinorrhea moist mucous membranes Neck: Supple no lymphadenopathy no JVD nontender CVS: Regular rate rhythm no murmurs normal S1-S2 Respiratory: No distress clear to auscultation bilaterally chest nontender Abdomen: Soft palpation right upper quadrant and epigastrium. Nondistended normal bowel sounds no masses Back: Nontender Extremity: Nontender no edema Skin: Normal color no rash Neuro: alert orientated ?3 CN II-XII intact normal strength sensation reflexes gait cerebellar Psych: Normal affect normal mood Test Results: White count 14.5. Glucose of 67 liver lipase negative. test negative. CT abdomen pelvis showed fluid-filled small intestine but no obv ious blockage. Emergency Department Course and Treatment: She was given a GI cocktail. Patient will be discharged home with supportive care. I will write for Zofran. She may in fact developed some diarrhea. She was instructed to hydrate return if worsening or concerns Impression: 1. Acute abdominal pain 2. Vomiting This note was generated with [employer] dictation software. It may contain incorrect words, spelling, and punctuation that were not noted in review of the chart prior to signing ED Disposition - Plan for ED Patient: Disposition: Home or Assisted Living Instructions: GASTROENTERITIS, Viral (7y-Adult) Prescriptions: Ondansetron [Zofran Odt] 4 mg PO Q6H PRN PRN #20 tab PRN Reason: Nausea Prescription Printed Referrals: Nagi Blanc MD [Primary Care Provider] - As Needed
[2019-10-02 14:28] VITALS: BP 123/91; PULSE 63; RESP 16; O2SAT 98
--- NOTE | 2019-10-02 14:28 | ED.RN ---
REVIEWED D/C INSTRUCTIONS, FOLLOW UP CARE, PRESCRIPTION, AND S/S THAT WOULD WARRANT A RETURN TO THE ED WITH PT. PT VERBALIZED AN UNDERSTANDING AND DENIES FURTHER QUESTIONS FOR THIS RN. PT SKIN WARM AND DRY, RESP EVEN AND UNLABORED, PT A&O X 3, NO DISTRESS NOTED. PT AMBULATED OUT OF ED, GAIT STEADY.
== END 2019-10-02 14:29 | disposition home or self-care (01) ==
PROVIDERS: Emergency Provider Emergency Medicine; Family Provider Family Medicine; PCP Family Medicine
DX: R10.9 Unspecified abdominal pain (principal); R11.2 Nausea with vomiting, unspecified; R19.7 Diarrhea, unspecified; E03.9 Hypothyroidism, unspecified; F31.9 Bipolar disorder, unspecified; K21.9 Gastro-esophageal reflux disease without esophagitis; K76.0 Fatty (change of) liver, not elsewhere classified; J45.909 Unspecified asthma, uncomplicated; Z85.850 Personal history of malignant neoplasm of thyroid; Z90.49 Acquired absence of other specified parts of digestive tract
CPT/HCPCS: 74177; 80048; 80076; 83690; 84703; 85025; 99284; Q9967; A4216

== ENCOUNTER 2019-11-06 18:20 | Emergency (ER) | payer MEDICAID, SELFPAY ==
[2019-11-06 18:21] VITALS: BP 144/91; PULSE 74; RESP 16; TEMP 36.8; O2SAT 100; BMI 25.7
--- NOTE | 2019-11-06 18:29 | EKG12_ITS ---
Test Reason : CP Blood Pressure : / mmHG Vent. Rate : 063 BPM Atrial Rate : 063 BPM P-R Int : 150 ms QRS Dur : 096 ms QT Int : 442 ms P-R-T Axes : 075 058 080 degrees QTc Int : 452 ms Normal sinus rhythm with sinus arrhythmia Nonspecific T wave abnormality Abnormal ECG Confirmed by JACKIE HARDY, JUAN DANIEL ([id number]), content editor JASPREET QUIROZ ([id number]) on 11/08/2019 12:53:42 PM Referred By: TL Confirmed By:JUAN DANIEL MEJIA MD
[2019-11-06 19:17] VITALS: BP 138/99; PULSE 67; RESP 12; O2SAT 100
--- NOTE | 2019-11-06 19:20 | RAD_ITS ---
STUDY: X-RAY CHEST REASON FOR EXAM: Female, 29 years old. Chest pain TECHNIQUE: Frontal view of the chest COMPARISON: X-Ray Chest November 01, 2018 FINDINGS: The lungs are clear. There are no pleural effusions. There is no pneumothorax. The heart is normal in size. The visualized osseous structures are within normal limits. RAD/Chest 1 View (Portable) IMPRESSION: No acute thoracic pathology. Electronically Signed: Nagi Redmond, at 19:36 EST Tel , Service support ,
[2019-11-06 19:21] LABS: Absolute Lymphocyte Count 3.82 X10^3/uL (0.83-4.51); Absolute Neutrophil Count 6.1 X10^3/uL (2.0-7.7); Basophil# 0.03 X10^3/uL; Basophil% 0.3 % (0-1); Eosinophil# 0.41 X10^3/uL; Eosinophils% 3.8 % (0-5); Hematocrit 36.4 % (37-47); Hemoglobin 12.5 g/dL (12.0-15.0); Lymphocyte # 3.82 X10^3/ul (4.0); Mean Corp Hgb Conc 34.3 g/dL (32-36); Mean Corpuscular Hgb 29.5 pg (27.0-32.0); Mean Corpuscular Volume 85.8 fL (81-99); Mean Platelet Vol. 10.4 fl (6.2-12.0); Monocyte# 0.49 X10^3/uL; Monocyte% 4.5 % (0-10); NRBC Flagged by Analyzer 0 % (0-5); Neutrophil # 6.08 X10^3/uL (2.7-7.7); Neutrophil % 55.7 % (47-70); Platelet Count 211 K/mm3 (150-450); RBC Distribution Width CV 12.6 % (11.6-14.6); RBC Distribution Width SD 39.6 fl (35.1-43.9); Red Blood Count 4.24 M/mm3 (4.2-5.4); White Blood Count 10.9 K/mm3 (4.4-11.0)
[2019-11-06 19:37] LABS: Anion Gap 7 (5-15); BUN 8 mg/dL (7-18); BUN/Creat Ratio 9.3 RATIO (10-20); Calcium,Total 8.8 mg/dL (8.5-10.1); Chloride 108 mmol/L (98-107); Creatinine, Serum 0.86 mg/dL (0.55-1.02); EST Glomerular Filtration Rate 83 mL/min (>60); Est Glom Filt Rate - Afr Amer 100 mL/min (>60); Estimated Creatinine Clearance 87.64 ml/min; Glucose 89 mg/dL (74-106); Potassium 3.4 mmol/L (3.5-5.1); Sodium Level 142 mmol/L (136-145)
[2019-11-06 19:50] LABS: Internal QC Validated? YES +Cl - CLEAR BKGD; Pregnancy, Serum, hCG Quali. NEGATIVE Negative
[2019-11-06 20:29] LABS: T4 Free Direct 0.83 ng/dL (0.76-1.46)
[2019-11-06 20:34] VITALS: BP 122/89; PULSE 62; RESP 13; O2SAT 100
--- NOTE | 2019-11-06 20:51 | ED.DCSUM_ITS ---
- ER Visit Summary Date of Service: 11/06/19 Chief Complaint: Chest pain History of Present Illness: The patient is a [address] Blanc. She reports that she has chest pain that began yesterday. Is intermittent pain lasts seconds at a time. She describes it as burning. Is 7 on 10 at worst and she is pain-free currently. This is worsened by nothing including exertion, movement, or breathing.. Is also relieved by nothing. She reports that at times she feels flushed. She denies any nausea, vomiting, or shortness of breath with this. She reports that she has palpitations where she feels like her heart is beating fast and irregular that last for a few seconds as well. She states that she had her Synthroid increased from 100 mcg to 136 mcg 1 week ago. She denies any other change in her medications. She reports that she has had 4 cups of Pepsi today and that is normal for her. She denies any other caffeine or decongestant use. Physical Examination: Vitals: Stable. Afebrile. General: Well-nourished and well-developed. Head: Normocephalic atraumatic. Neck: Supple, no lymphadenopathy. No JVD. Nontender. Cardiovascular: Regular rate and rhythm. No murmurs. Respiratory: No respiratory distress. Clear to auscultation bilaterally. Abdominal: Soft, nontender, nondistended, normal bowel sounds. No guarding, rebound, or peritoneal signs. Back: Nontender. Extremities: Nontender, no edema. Skin: Normal color, no rash. Neurologic: Alert and oriented ?3. Cranial nerves II through XII are intact. Normal strength and sensation. Psych: Normal affect. Test Results: EKG is sinus at [address] changes. Troponin is negative. test is negative. TSH is 33.3. Patient reports that this was 36 prior to her medication changes. Free T4 0.83. Free T3 is 2.0. Chem-7 shows a potassium 3.4 and chloride of 108. CBC shows hematocrit of 36.4. Chest x-ray is normal. Emergency Department Course and Treatment: Patient was given a liter of normal saline. She is resting comfortably. Treatment Plan: Patient be discharged instructions to follow-up with her primary care physician for further evaluation and changes in her Synthroid if necessary. Return to the emergency department for any worsening symptoms. Disposition: To home in improved and stable condition. Impression:1. Palpitations. 2. Atypical chest pain. This note was generated with [employer] dictation software. It may contain incorrect words, spelling, and punctuation that were not noted in review of the chart prior to signing ED Disposition - Plan for ED Patient: Disposition: Home or Assisted Living Instructions: Palpitations Referrals: Nagi Blanc MD [Primary Care Provider] - As soon as possible
[2019-11-06 21:04] VITALS: BP 119/83; PULSE 72; RESP 16; O2SAT 99
== END 2019-11-06 21:05 | disposition home or self-care (01) ==
LOC: ED 19:39
PROVIDERS: Emergency Provider Emergency Medicine; Family Provider Family Medicine; PCP Family Medicine
DX: R00.2 Palpitations (principal); R07.89 Other chest pain; R21 Rash and other nonspecific skin eruption; J45.909 Unspecified asthma, uncomplicated; Z85.850 Personal history of malignant neoplasm of thyroid
CPT/HCPCS: 71045; 80048; 84439; 84443; 84481; 84484; 84703; 85025; 93005; 99284; A4216

== ENCOUNTER → 2019-12-21 10:38 | Outpatient (CLI) | payer MEDICAID, SELFPAY ==
[2019-12-21 11:21] LABS: Hemoglobin A1c 5.3 % (4.2-6.3)
[2019-12-21 11:41] LABS: ALB/GLOB Ratio 0.9 RATIO (0.9-2.4); AST(SGOT) 12 U/L (15-37); Alanine Aminotransfer ALT/SGPT 19 U/L (13-56); Albumin, Serum 3.7 g/dL (3.2-5.0); Alkaline Phosphatase 86 U/L (45-117); Anion Gap 6 (5-15); BUN 14 mg/dL (7-18); BUN/Creat Ratio 17.2 RATIO (10-20); Calcium,Total 8.9 mg/dL (8.5-10.1); Chloride 110 mmol/L (98-107); Creatinine, Serum 0.81 mg/dL (0.55-1.02); EST Glomerular Filtration Rate 89 mL/min (>60); Est Glom Filt Rate - Afr Amer 107 mL/min (>60); Globulin 3.9 g/dL (2.2-4.2); Glucose 77 mg/dL (74-106); Potassium 4.1 mmol/L (3.5-5.1); Protein, Total 7.6 g/dL (6.4-8.2); Sodium Level 140 mmol/L (136-145)
[2019-12-21 11:53] LABS: Valproic Acid (Depakene) Level 98 ug/mL (50-100)
== END ==
PROVIDERS: PCP Family Medicine; Referring Provider Nurse Practitioner Family; Visit Provider Nurse Practitioner Family
DX: R73.09 Other abnormal glucose (principal); Z79.899 Other long term (current) drug therapy
CPT/HCPCS: 36415; 80053; 80164; 80178; 82140; 83036

== ENCOUNTER 2021-05-06 18:25 | Emergency (ER) | payer MEDICAID, SELFPAY ==
[2021-05-06 18:26] VITALS: BP 147/101; PULSE 87; RESP 16; TEMP 36.8; O2SAT 100; BMI 23.7
[2021-05-06 19:51] LABS: Bacteria 0 SEEN /hpf (None Seen); Mucous, Urine 0 SEEN /hpf (<or=2+); Squamous Epithelial Cells - UA 0 SEEN /hpf (5-10)
[2021-05-06 19:54] LABS: Color, Urine Yellow (Yellow); Glucose, Dipstick Normal (Normal); Ketone-Dipstick Negative (Negative); Leukocyte Esterase-Dipstick 100 /ul (Negative); Nitrite-Dipstick Negative (Negative); Occult Blood-Urine Negative /ul (Negative); Protein-Dipstick Negative (Negative); Specific Gravity, Urine 1.015 (1.002-1.030); Urine Bilirubin Dipstick Negative (Negative); Urine Clarity Sl. Cloudy (Clear); Urine Urobilinogen 1 mg/dl (Normal)
[2021-05-06 20:05] LABS: Amorphous Sediment 1+; Red Blood Cells-Urine 5-10 SEEN /hpf (0-5); White Blood Cells 0-5 SEEN /hpf (0-5)
[2021-05-06 20:14] LABS: Internal QC Validated? YES +Cl - CLEAR BKGD; Pregnancy, Serum, hCG Quali. NEGATIVE Negative
--- NOTE | 2021-05-06 20:25 | ED.VIS.FEGU ---
HPI HPI - Female History of Present Illness Chief Complaint: Flank Pain Informant: patient Narrative Narrative: Patient has right flank pain. She is been dealing with kidney stones for a couple of weeks. On April 24 she went to [facility] and had a CAT scan which showed multiple stones in the kidney had a possible punctate stone in the ureter. She has been trying Percocet, tramadol and ibuprofen at home without any relief. She is now out of Percocet. She denies any fevers. She was taking an antibiotic for UTI. She followed up with Dr. Mathur with urology in [place] today. He schedule a test for later this week and a follow-up appointment in May. She feels that she cannot make it until that time. She called Dr. Farley, who has since retired. The office told her to come to the emergency department. [facility] Medical History (Updated 05/06/21 @ 21:[address] Roge Merida MD) Asthma Environmental allergies 1 para 1 Migraine Home Medications gabapentin 600 mg PO TIDCM 08/26/15 [History Last Taken Unknown] tramadol 50 mg PO Q4H PRN PRN 09/28/16 [History Last Taken Unknown] trazodone 300 mg PO QHS 11/01/18 [History Last Taken Unknown] levothyroxine 136 mcg PO DAILY 10/02/19 [History Last Taken Unknown] lithium carbonate 450 mg PO DAILY 10/02/19 [History Last Taken Unknown] albuterol sulfate 1 - 2 puff INHALATION Q4H PRN PRN MDD \ 11/06/19 [History Last Taken Unknown] divalproex 1,500 mg PO DAILY 11/06/19 [History Last Taken Unknown] ziprasidone HCl 40 mg PO BID 11/06/19 [History Last Taken Unknown] ondansetron 8 mg PO Q8H PRN PRN #20 tab 05/06/21 [Rx Last Taken Unknown] oxycodone-acetaminophen 1 tab PO Q6H PRN PRN 3 Days #6 tablet 05/06/21 [Rx Last Taken Unknown] Allergy/AdvReac Type Severity Reaction Status Date / Time amphetamine [From Adderall] Allergy Severe unknown Verified 05/06/21 18:26 dextroamphetamine Allergy Severe unknown Verified 05/06/21 18:26 [From Adderall] morphine Allergy Rash Verified 05/06/21 18:26 Family History Other Bipolar 1 disorder Social History Smoking Status: Never smoker alcohol intake: never ROS ROS ED Constitutional Constitutional ED: Denies chills or fever(s) Eyes Eyes: Denies blurry vision, change in vision or diplopia ENT ENT ED: Denies ear pain, rhinorrhea or sore throat Cardiovascular Cardiovascular: Denies chest pain or palpitations Respiratory/Chest Respiratory/Chest: Denies cough, dyspnea or sputum Gastrointestinal Gastrointestinal: Denies abdominal pain, diarrhea, nausea or vomiting Genitourinary Genitourinary ED: Reports other Details: Flank pain Musculoskeletal Musculoskeletal: Denies back pain or neck pain Integumentary Denies change in pigmentation or rash Neurologic Neurologic: Denies headache(s), numbness or weakness Psychiatric Psychiatric: Denies anxiety or depression Endocrine Endocrinology: Denies polydipsia or polyuria EXAM Physical Exam Const Vital Signs: 05/06/21 18:26 Temperature 98.2 F Temperature Source Temporal Pulse Rate 87 Respiratory Rate 16 Blood Pressure 147/101 H Blood Pressure Mean 116 Pulse Ox 100 Oxygen Delivery Method Room Air Positive well nourished and well developed General Appearance ED: well developed and NAD HEENT Reports moist mucous membranes normocephalic and atraumatic; Negative for tenderness Eyes PERRL and EOMs intact bilaterally Neck supple and no JVD Chest Wall Chest: Negative for tenderness Resp normal respiratory effort and clear to auscultation bilaterally Effort and Inspection: Negative for respiratory distress Cardio regular rate, regular rhythm and no murmurs Rate: regular rate Rhythm: regular rhythm GI soft to palpation, non-tender and non-distended Palpation: soft Back/Spine no CVA tenderness and no thoracic nor lumbar tenderness Cervical Spine: Negative for cervical spine tenderness Extremity normal to inspection and full ROM General Extremety ED: Negative for tenderness Neuro oriented x3, CN's II-XII intact bilaterally and no sensory deficits noted Sensorium / Orientation: awake and alert Motor Exam: strength 5/5 throughout Psych mental status grossly normal Skin no rashes or lesions noted MDM MDM MDM Narrative Medical decision making narrative: The patient was given Toradol and Dilaudid. Labs show white blood cell 12.3. Urinalysis has a slight amount of blood and only 0-5 white blood cells. is negative. She is already had a CAT scan this month. I do not feel this needs to be repeated. Now that her pain is controlled. Feel that she can be discharged with analgesia and antiemetics. She will call Dr. Ambrosio for follow-up. I did review her [facility] report. She has received some tramadol, [place] and Percocet within the last 2-1/2 weeks. I will give her 6 pills of Percocet so she can follow-up with urology Lab Data Labs: Laboratory Results - last 24 hr 05/06/21 05/06/21 05/06/21 19:45 20:00 20:00 WBC 12.3 H RBC 4.70 Hgb 13.6 Hct 40.5 MCV 86.2 MCH 28.9 MCHC 33.6 RDW Std Deviation 39.0 RDW Coeff of Ame 12.4 Plt Count 260 MPV 10.6 Immature Gran % (Auto) 0.600 Neut % (Auto) 68.2 Lymph % (Auto) 24.5 Person % (Auto) 5.5 Eos % (Auto) 1.0 Baso % (Auto) 0.2 Absolute Neuts (auto) 8.4 H Absolute Lymphs (auto) 3.01 Nucleated RBC % 0 Sodium Potassium Chloride Carbon Dioxide Anion Gap BUN Creatinine Estim Creat Clear Calc Est GFR (MDRD) Af Amer Est GFR (MDRD) Non-Af BUN/Creatinine Ratio Glucose Calcium Serum , Qual NEGATIVE Urine Color Yellow Urine Clarity Sl. Cloudy Urine pH 7.0 Ur Specific [place] 1.015 Urine Protein Negative Urine Glucose (UA) Normal Urine Ketones Negative Urine Occult Blood Negative Urine Nitrite Negative Urine Bilirubin Negative Urine Urobilinogen 1 H Ur Leukocyte Esterase 100 H Urine RBC 5-10 SEEN Urine WBC 0-5 SEEN Ur Squamous Epith Cells 0 SEEN Amorphous Sediment 1+ Urine Bacteria 0 SEEN Urine Mucus 0 SEEN 05/06/21 20:00 WBC RBC Hgb Hct MCV MCH MCHC RDW Std Deviation RDW Coeff of Ame Plt Count MPV Immature Gran % (Auto) Neut % (Auto) Lymph % (Auto) Person % (Auto) Eos % (Auto) Baso % (Auto) Absolute Neuts (auto) Absolute Lymphs (auto) Nucleated RBC % Sodium 140 Potassium 3.9 Chloride 105 Carbon Dioxide 28.0 Anion Gap 7 BUN 6 L Creatinine 0.83 Estim Creat Clear Calc 92.78 Est GFR (MDRD) Af Amer 103 Est GFR (MDRD) Non-Af 85 BUN/Creatinine Ratio 7.2 L Glucose 85 Calcium 8.9 Serum , Qual Urine Color Urine Clarity Urine pH Ur Specific [place] Urine Protein Urine Glucose (UA) Urine Ketones Urine Occult Blood Urine Nitrite Urine Bilirubin Urine Urobilinogen Ur Leukocyte Esterase Urine RBC Urine WBC Ur Squamous Epith Cells Amorphous Sediment Urine Bacteria Urine Mucus Discharge Plan Triage Chief Complaint: Flank Pain ED Provider: Roge Merida Dx/Rx/DC Orders Clinical Impression: Renal colic Instructions: ED Kidney Stone w/ Colic Prescriptions: New oxycodone-acetaminophen [oxycodone-acetaminophen] 1 TABLET tablet 1 tab PO Q6H PRN PRN (Reason: Pain) 3 Days Qty: 6 RF: 0 ondansetron [ondansetron] 4 MG tablet 8 mg PO Q8H PRN PRN (Reason: Nausea) Qty: 20 RF: 0 No Action gabapentin 300 MG capsule 600 mg PO TIDCM RF: 0 tramadol 50 MG tablet 50 mg PO Q4H PRN PRN (Reason: BACK PAIN) RF: 0 trazodone 100 MG tablet 300 mg PO QHS RF: 0 lithium carbonate 450 MG tablet extended release 450 mg PO DAILY RF: 0 levothyroxine 100 MCG tablet 136 mcg PO DAILY RF: 0 divalproex 500 MG tablet,delayed release (DR/EC) 1,500 mg PO DAILY RF: 0 ziprasidone HCl 40 MG capsule 40 mg PO BID RF: 0 albuterol sulfate 1 INHALER inhaler 1 - 2 puff inhalation Q4H PRN MDD \ PRN (Reason: Sob &/Or Wheezing) RF: 0 Primary Care Provider: Nagi Blanc Referrals: Nagi Blanc MD [Primary Care Provider] - Disposition Disposition: Home, self care
[2021-05-06 20:46] LABS: Absolute Lymphocyte Count 3.01 X10^3/uL (0.83-4.51); Absolute Neutrophil Count 8.4 X10^3/uL (2.0-7.7); Basophil# 0.03 X10^3/uL; Basophil% 0.2 % (0-1); Eosinophil# 0.12 X10^3/uL; Hematocrit 40.5 % (37-47); Hemoglobin 13.6 g/dL (12.0-15.0); Lymphocyte # 3.01 X10^3/ul (0.83-4.51); Lymphocyte % 24.5 % (19-41); Mean Corp Hgb Conc 33.6 g/dL (32-36); Mean Corpuscular Hgb 28.9 pg (27.0-32.0); Mean Corpuscular Volume 86.2 fL (81-99); Mean Platelet Vol. 10.6 fl (6.2-12.0); Monocyte# 0.68 X10^3/uL; Monocyte% 5.5 % (0-10); NRBC Flagged by Analyzer 0 % (0-5); Neutrophil # 8.39 X10^3/uL (2.7-7.7); Neutrophil % 68.2 % (47-70); Platelet Count 260 K/mm3 (150-450); RBC Distribution Width CV 12.4 % (11.6-14.6); White Blood Count 12.3 K/mm3 (4.4-11.0)
[2021-05-06] MEDS: Ketorolac 15 MG/ML Vial IV (20:54)
[2021-05-06] MEDS: HYDROmorphone 1 MG/ML Syringe 0.5 MG IV (20:54)
[2021-05-06 20:56] LABS: Anion Gap 7 (5-15); BUN 6 mg/dL (7-18); BUN/Creat Ratio 7.2 RATIO (10-20); Calcium,Total 8.9 mg/dL (8.5-10.1); Chloride 105 mmol/L (98-107); Creatinine, Serum 0.83 mg/dL (0.55-1.02); EST Glomerular Filtration Rate 85 mL/min (>60); Est Glom Filt Rate - Afr Amer 103 mL/min (>60); Estimated Creatinine Clearance 92.78 ml/min; Glucose 85 mg/dL (74-106); Potassium 3.9 mmol/L (3.5-5.1); Sodium Level 140 mmol/L (136-145)
[2021-05-06 21:13] VITALS: RESP 16
== END 2021-05-06 21:26 | disposition home or self-care (01) ==
PROVIDERS: Emergency Provider Emergency Medicine; PCP Family Medicine
DX: N23 Unspecified renal colic (principal); J45.909 Unspecified asthma, uncomplicated; N39.0 Urinary tract infection, site not specified
CPT/HCPCS: 80048; 81001; 84703; 85025; 99283; A4216

== ENCOUNTER → 2023-01-19 | Outpatient (CLI) | payer MEDICAID, SELFPAY ==
[2023-01-19 11:12] LABS: Erythrocyte Sedimentation Rate 4 mm/hr (0-30)
[2023-01-19 11:14] LABS: Absolute Lymphocyte Count 2.17 X10^3/uL (0.83-4.51); Absolute Neutrophil Count 7.4 X10^3/uL (2.0-7.7); Basophil# 0.03 X10^3/uL; Basophil% 0.3 % (0-1); Eosinophil# 0.22 X10^3/uL; Eosinophils% 2.1 % (0-5); Hematocrit 36.5 % (37-47); Hemoglobin 12.4 g/dL (12.0-15.0); Lymphocyte # 2.17 X10^3/ul (0.83-4.51); Lymphocyte % 20.5 % (19-41); Mean Corpuscular Volume 85.5 fL (81-99); Mean Platelet Vol. 10.3 fl (6.2-12.0); Monocyte# 0.61 X10^3/uL; Monocyte% 5.8 % (0-10); NRBC Flagged by Analyzer 0 % (0-5); Neutrophil % 70.1 % (47-70); Platelet Count 249 K/mm3 (150-450); RBC Distribution Width CV 13.9 % (11.6-14.6); RBC Distribution Width SD 43.3 fl (35.1-43.9); Red Blood Count 4.27 M/mm3 (4.2-5.4); White Blood Count 10.6 K/mm3 (4.4-11.0)
[2023-01-19 11:38] LABS: ALB/GLOB Ratio 0.8 RATIO (0.9-2.4); AST(SGOT) 15 U/L (15-37); Alanine Aminotransfer ALT/SGPT 22 U/L (13-56); Albumin, Serum 3.4 g/dL (3.2-5.0); Alkaline Phosphatase 80 U/L (45-117); Anion Gap 5 (5-15); BUN 10 mg/dL (7-18); BUN/Creat Ratio 12.5 RATIO (10-20); Chloride 110 mmol/L (98-107); EST Glomerular Filtration Rate 88 mL/min (>60); Est Glom Filt Rate - Afr Amer 107 mL/min (>60); Glucose 88 mg/dL (74-106); LDH 176 U/L (84-246); Potassium 3.3 mmol/L (3.5-5.1); Protein, Total 7.4 g/dL (6.4-8.2); Sodium Level 140 mmol/L (136-145)
[2023-01-20 14:09] LABS: Anti-Centromere B Ab <0.2 AI (0.0-0.9); Anti-Chromatin <0.2 AI (0.0-0.9); Anti-Jo <0.2 AI (0.0-0.9); Anti-Scleroderma-70 AB <0.2 AI (0.0-0.9); RNP Ab 0.2 AI (0.0-0.9); SJOGREN'S Anti-SS-A test < 0.2 AI (0.0-0.9); SJOGREN'S Anti-SS-B test < 0.2 AI (0.0-0.9); Smith Ab <0.2 AI (0.0-0.9)
[2023-01-20 15:08] LABS: Endomysial Antibody IgA Negative (Negative)
[2023-01-20 18:48] LABS: Immunoglobulin A 232 mg/dL (87-352); t-Transglutaminase IgA <2 U/mL (0-3)
[2023-01-20 18:53] LABS: Anti-dsDNA Ab 2 IU/mL (0-9)
[2023-01-23 00:07] LABS: Albumin 3.5 g/dL (2.9-4.4); Alpha-1-Globulins 0.3 g/dL (0.0-0.4); Alpha-2-Globulins 0.7 g/dL (0.4-1.0); Cytoplasmic Ab (C-ANCA) <1:20 titer (Neg:<1:20); Gamma Globulin 1.1 g/dL (0.4-1.8); Immunoglobulin A 221 mg/dL (87-352); Immunoglobulin E 94 IU/mL (6-495); Immunoglobulin G 1108 mg/dL (586-1602); Immunoglobulin M 135 mg/dL (26-217); PROEL- TOTAL PROTEIN 6.8 g/dL (6.0-8.5)
[2023-01-23 10:59] LABS: Perinuclear Ab (P-ANCA) <1:20 titer (Neg:<1:20)
== END | disposition home or self-care (01) ==
PROVIDERS: PCP Family Medicine; Referring Provider Nurse Practitioner Adult Health; Visit Provider Nurse Practitioner Adult Health
DX: R11.10 Vomiting, unspecified (principal)
CPT/HCPCS: 36415; 80053; 82784; 82785; 83516; 83615; 84165; 85025; 85652; 86140; 86225; 86235; 86255; 86256; 86334

== ENCOUNTER → 2023-01-21 | Outpatient (CLI) | payer MEDICAID, SELFPAY ==
--- NOTE | 2023-01-21 09:50 | US_ITS ---
STUDY: ABDOMINAL ULTRASOUND REASON FOR EXAM: Female, 32 years old. LUQ pain, chronic vomiting TECHNIQUE: Transabdominal ultrasound was performed with real-time and static bermeo scale imaging. TECHNICAL QUALITY: Adequate. COMPARISON: None. FINDINGS: Liver: The liver measures 18.3 cm. There is increased echogenicity consistent with fatty infiltration. The bile ducts are within normal limits. There is hepatic color flow. The direction of portal flow is hepatopetal. There is no demonstrated mass lesion. Portal vein measurement: Gallbladder: The patient is status post cholecystectomy. Common Bile Duct (C.B.D.): The common bile duct measures 3. mm. Pancreas: Normal size of the head, body and tail of the pancreas. There is normal echogenicity of the pancreas. There is no demonstrated pancreatic mass or cyst. Spleen: Normal size of the spleen. The spleen measures 11.8 cm x 5.5 cm x 4.2 cm. Right Kidney: Normal size of the right kidney. The right kidney measures 12.6 cm x 5.3 cm x 4.4 cm. Normal renal cortex. The right cortex measures 1.4 cm. There is no demonstrated renal mass or cyst. There is no right hydronephrosis. Left Kidney: Normal size of the left kidney. The left kidney measures 11.2 cm x 4.7 cm x 4.7 cm. Normal renal cortex. The left cortex measures 1.6 cm. There is no demonstrated renal mass or cyst. There is no left hydronephrosis. 3. Tiny nonobstructive left intrarenal calculi. Aorta: Unremarkable I.V.C.: The IVC is patent. There is no ascites. US/Abdomen Complete IMPRESSION: Hepatomegaly and fatty infiltration of the liver. Status post cholecystectomy. 3 tiny nonobstructive left intrarenal calculi. Electronically Signed: Oliverio Barcenas MD at 14:28 EST ,
[2023-01-26 20:29] LABS: Calprotectin, Stool 25 ug/g (0-120)
== END | disposition home or self-care (01) ==
LOC: US 09:46
PROVIDERS: PCP Family Medicine; Referring Provider Nurse Practitioner Adult Health; Visit Provider Nurse Practitioner Adult Health
DX: R11.10 Vomiting, unspecified (principal); R10.12 Left upper quadrant pain
CPT/HCPCS: 76700; 83630; 83993

== ENCOUNTER → 2023-01-29 | Outpatient (CLI) | payer MEDICAID, SELFPAY ==
--- NOTE | 2023-01-29 10:38 | NM_ITS ---
CLINICAL: 32-year-old female with history of early satiety and chronic nausea. SEMI-SOLID PHASE 99m Tc SULFUR COLLOID GASTRIC EMPTYING STUDY COMPARISON: Abdominal ultrasound report 01/21/2023 FINDINGS: The patient was administered 1.1 mCi of 99m Tc sulfur colloid mixed with oatmeal and consumed per os. Image acquisitions in the anterior-posterior projections were obtained for 60 minutes. There is prompt visualization of the stomach. There is no gastroesophageal reflux identified. The T ? raw data emptying was calculated to be approximately 58 minutes, (Normal: 12-56 minutes). NM/Gastric Emptying Study IMPRESSION: 1. ABNORMAL 99m Tc sulfur colloid semi-solid phase (oatmeal) gastric emptying imaging examination. A. There is mildly delayed semi-solid phase gastric emptying compared to normal controls. (Bautista et al, J Nucl Med Tech 38: 186, 2010). Electronically Signed: Navdeep Hernandez, at 10:04 EST ,
== END | disposition home or self-care (01) ==
LOC: NM 10:36
PROVIDERS: PCP Family Medicine; Visit Provider Nurse Practitioner Adult Health
DX: R68.81 Early satiety (principal); Z83.79 Family history of other diseases of the digestive system; R11.10 Vomiting, unspecified
CPT/HCPCS: 78264; A9541

== ENCOUNTER 2023-04-08 05:57 | Day surgery (SDC) | payer MEDICAID, SELFPAY ==
--- NOTE | 2023-04-07 | GASB_PTH ---
PATIENT: GRETA ANDRES LOC: EN U#:[id number] AGE/SX: 33/F ROOM: RE04/08/[address]: Dr. Grzegorz Cole DO : 1990 BED: DIS: 04/08/2023 SPEC #: [id number] RECD: 04/08/23 10:10 STATUS: KISHORE MENA #: [id number] JUANJOSE: 04/07/23 00:[address]: Grzegorz Cole DEPT: SURGICAL PATHOLOGY RECD BY: Timmy Govea ENTERED: 04/08/23 12:00 SP TYPE: Gastric Bx OTHR DR: Dr. Nagi Blanc MD Tissues: A - Duodenum, NOS B - Gastric mucous membrane C - Esophageal mucous membrane D - Ileum, NOS E - Cecum, NOS F - COLON BIOPSY Procedures: Special Stain Group II Surgery Specimen Level IV Alcian Blue/PAS (control) HEADER OPERATION: Colonoscopy, EGD (MAC), biopsy PRE-OP DIAGNOSIS: Vomiting, LUQ abdominal pain, early satiety TISSUE SUBMITTED: A ? Duodenum biopsy, B ? Gastric body biopsy, C ? Distal esophagus biopsy, D ? Terminal ileum biopsy, E ? Cecum biopsy, F ? Random colonic biopsy MICROSCOPIC DIAGNOSIS A. Duodenum, biopsy: No pathologic change. B. Gastric body, biopsy: Mild chronic inflammation. See comment. C. Distal esophagus, biopsy: Gastroesophageal junctional mucosa with mild chronic inflammation. Focal changes of reflux. No evidence of goblet cell metaplasia. See comment. D. Terminal ileum, biopsy: No pathologic change. See comment. E. Cecum, biopsy: No pathologic change. See comment. F. Colon, random biopsy: No pathologic change. AM:donna 04/09/2023 COMMENT B. The results of immunohistochemistry for Helicobacter pylori will be reported separately ([id number]). C. Alcian blue/PAS stain with matched control supports the above diagnosis. D & E. Eosinophils are mildly increased in the mucosa. The significance of this is unclear. Clinical correlation is suggested. MICROSCOPIC DESCRIPTION Slides are reviewed. GROSS DESCRIPTION A - Received in fixative is one container labeled with the patient's name and designated biopsy duodenum. The specimen consists of multiple irregular fragments of light foss soft tissue that in aggregate measure 0.8 x 0.4 x 0.1 cm. The specimen is totally submitted in one cassette. B - Received in fixative is one container labeled with the patient's name and designated biopsy gastric antrum. The specimen consists of two irregular fragments of light foss soft tissue that in aggregate measure 0.8 x 0.4 x 0.1 cm. The specimen is totally submitted in one cassette. C - Received in fixative is one container labeled with the patient's name and designated biopsy distal esophagus. The specimen consists of one irregular fragment of light foss soft tissue that measures 0.4 x 0.4 x 0.1 cm. The specimen is totally submitted in one cassette. D - Received in fixative is one container labeled with the patient's name and designated biopsy terminal ileum. The specimen consists of two irregular fragments of light foss soft tissue that in aggregate measure 0.8 x 0.4 x 0.1 cm. The specimen is totally submitted in one cassette. E - Received in fixative is one container labeled with the patient's name and designated biopsy cecum. The specimen consists of multiple irregular fragments of light foss soft tissue that in aggregate measure 1.0 x 0.4 x 0.1 cm. The specimen is totally submitted in one cassette. F - Received in fixative is one container labeled with the patient's name and designated random colon biopsy. The specimen consists of multiple irregular fragments of light foss soft tissue that in aggregate measure 1.5 x 0.6 x 0.1 cm. The specimen is totally submitted in one cassette. / SJ:rg 04/08/2023 TC:3 CPT: 53472 x6, 07664
[2023-04-08] VITALS (7 sets, daily range): BP systolic 126–153; BP diastolic 99–106; PULSE 77–98; RESP 16–18; TEMP 36.2–36.9; O2SAT 98–100; BMI 32.8
[2023-04-08] MEDS: Lactated Ringers 1,000 ML 15 ML IV (06:38)
--- NOTE | 2023-04-08 07:00 | IMM_PTH ---
PATIENT: GRETA ANDRES LOC: EN U#:[id number] AGE/SX: 33/F ROOM: RE04/08/[address]: Dr. Grzegorz Cole DO : 1990 BED: DIS: 04/08/2023 SPEC #: [id number] RECD: 04/08/23 14:38 STATUS: KISHORE REQ #: [id number] JUANJOSE: 04/08/23 07:[address]: Grzegorz Cole DEPT: IMMUNOHISTOCHEMISTRY RECD BY: Lizbeth Campoverde ENTERED: 04/08/23 14:38 SP TYPE: IMMUNO OTHR DR: Dr. Nagi Blanc MD Tissues: B - Stomach, NOS Procedures: H Pylori (initial) PHYSICIAN & INSTITUTION [address] [address] SPECIMEN INFORMATION: Tissue Source: B ? Gastric body Clinical Info: Chronic vomiting, LUQ abdominal pain, diarrhea, early satiety Specimen Number: [id number] CPT code: 63105 METHODOLOGY: Deparaffinized sections of prefer/formalin-fixed tissue or PAP/DQ stained slides are incubated with monoclonal/polyclonal antibodies/oligonucleotide probes. Localization is made via biotin free immunoperoxidase method. Appropriate controls are performed and reacted as expected. Results on target cell population are indicated in the following table: RESULTS: ANTIBODY / CLONE RESULT Block B H Pylori (polyclonal) negative These tests were developed and their performance characteristics determined by [facility]. They may not have been cleared or approved by the U.S. Food and Drug Administration. The FDA has determined that such clearance or approval is not necessary. The above immunohistochemical/dualISH markers are ordered and reviewed by the Pathologist. INTERPRETATION: B. Gastric body, biopsy: Negative for Helicobacter pylori organisms. SJ:donna 04/09/2023
--- NOTE | 2023-04-08 07:13 | HP.PCM_ITS ---
History and Physical Date of Admission: 04/08/23 32 F who presents to the office today to establish with GI for chronic vomiting for more than a year. Used to see [facility]; had EGD and colonoscopy in November 2021--we will request records. We take care of her mother; she has Crohn's. Pt says she was told the colon prep was poor, but she was told there was some bleeding, she doesn't know where the bleeding was. Vomits every morning, emesis is foamy, but doesn't burn like acid would. Sometimes vomits in the middle of meals. No hematemesis. Has tried and failed ondansetron. Gets some relief with promethazine. Never on scopolamine patch. GI cocktail in ED helped more than anything for the LUQ pain and the nausea/vomiting. Always feels bloated in upper abdomen. No heartburn or acid reflux. No dysphagia. Has early satiety. Pain LUQ, under ribs, has been to [facility] several times. Associated with nausea and vomiting. Occurs every few days. The pain is sharp, doesn't radiate. No diarrhea with the pain. Can have unrelated bouts of diarrhea, seems random, no melena or hematochezia. Sometimes feels constipated but not often; typically has BM 1-2x per day; but always told her imaging studies show she is constipated. Mom and daughter both have Crohn's disease. Daughter is now 10, diagnosed at [facility] at age 7. Hx thyroid cancer, her GI symptoms started after radioactive iodine treatment.? Comorbidities also include anxiety, asthma, allergies, migraines, PTSD Past surgical history includes sinus surgery, cholecystectomy, right knee arthroscopy and ROS Const Constitutional: Positive for fatigue and weight change ENT ENT: No difficulty swallowing Gastro GI: No abdominal pain, belching, bloating, change in bowel habits, change in stool character, coffee ground emesis, constipation, cramping, diarrhea, heartburn, difficulty swallowing, feeling full early, excessive flatus, incontinent of stools, Vomiting blood/hematemesis, Blood in stool, loose stools, Black,tarry stools, nausea/dyspepsia, pain with swallowing, vomiting or other Musc Musculoskeletal: Positive for back pain and Arthritis; No joint pain Skin Skin: No yellowing of the eye or itchy eyes Psych Psychiatric: No anxiety and No depression Endo Endocrine: Positive for fatigue and weight change Aller/Imm Allergy/Immunologic: No itchy eyes Fitz/Lymp Hematologic/Lymphatic: No easy bleeding or easy bruising Exam Const General: cooperative, comfortable and no acute distress Nutritional Appearance: overweight Orientation: alert, awake and oriented x3 HENMT Head: normal to inspection Eyes Sclera: sclerae normal Chest Chest palpation & inspection: normal inspection of the chest Resp Effort & Inspection: normal respiratory effort GI Inspection: normal to inspection Palpation: soft, no hepatosplenomegaly, no masses and nontender Skin Other: maybe very faint butterfly rash on cheeks Neuro Speech: speech normal Gait: normal gait Psych Mood: euthymic mood Quality Reporting Tobacco Screening ([facility] 138) Smoking Status: Never smoker Assessment and Plan Assessment and Plan (1) Chronic vomiting: ?Status:?Chronic ?Plan: 32 yr old female with chronic vomiting, LUQ pain, intermittent diarrhea, FH Crohn's disease Will get gastric emptying study to eval for gastroparesis considering nausea, vomiting, early satiety Labs to include eval for IBD, celiac, autoimmune EGD and colonoscopy, consider capsule endoscopy Will decide if need enterography once we have labs back US abd complete (2) FH: Crohn's disease: ?Status:?Chronic ?Plan: as above (3) Early satiety: ?Status:?Acute ?Plan: as above (4) LUQ abdominal pain: ?Status:?Acute ?Plan: as above ? ? ? Orders: Orders Comprehensive Metabolic Profil Today R11.10 - Vomiting, unspecified ? CRP Today R11.10 - Vomiting, unspecified ? LDH Today R11.10 - Vomiting, unspecified ? CBC W/Diff, Automated Today R11.10 - Vomiting, unspecified ? Erythrocyte Sed Rate Today R11.10 - Vomiting, unspecified ? LALI Comprehensive Panel Today R11.10 - Vomiting, unspecified ? Calprotectin, Stool Today R11.10 - Vomiting, unspecified ? Stool Lactoferrin/WBC Today R11.10 - Vomiting, unspecified ? ANCA Today R11.10 - Vomiting, unspecified ? Celiac Disease Profile Today R11.10 - Vomiting, unspecified ? Immunoglobulins G/A/M/E Today R11.10 - Vomiting, unspecified ? [place] + Protein Elect, Serum Today R11.10 - Vomiting, unspecified ? Miscellaneous Lab Procedure Today R11.10 - Vomiting, unspecified ? Gastric Emptying Study Today R11.10 - Vomiting, unspecified, R68.81 - Early satiety, Z83.79 - Family history of other diseases of the digestive system ? Abdomen Complete Today R10.12 - Left upper quadrant pain, R11.10 - Vomiting, unspecified ? I have examined the patient and the H&P has been reviewed. There are no clinical changes since date of exam.
--- NOTE | 2023-04-08 07:55 | OP.EGD_ITS ---
Patient Name: Calli Cano Procedure Date: 04/08/2023 7:14 AM Date of : 1990 Age: 33 Procedure: Upper GI endoscopy Indications: Epigastric abdominal pain Providers: Grzegorz Cole DO Referring MD: Grzegorz Cole DO Medicines: Monitored Anesthesia Care Patient Profile: This is a 33 year old female. Refer to note in patient chart for documentation of history and physical. Patient has symptoms. Complications: No immediate complications. Procedure: Pre-Anesthesia Assessment: - Prior to the procedure, a History and Physical was performed, and patient medications and allergies were reviewed. The patient is competent. The risks and benefits of the procedure and the sedation options and risks were discussed with the patient. All questions were answered and informed consent was obtained. Patient identification and proposed procedure were verified by the physician in the pre-procedure area. Mental Status Examination: alert and oriented. Airway Examination: normal oropharyngeal airway and neck mobility. Respiratory Examination: clear to auscultation. CV Examination: normal. Prophylactic Antibiotics: The patient does not require prophylactic antibiotics. Prior Anticoagulants: The patient has taken no previous anticoagulant or antiplatelet agents. ASA Grade Assessment: II - A patient with mild systemic disease. After reviewing the risks and benefits, the patient was deemed in satisfactory condition to undergo the procedure. The anesthesia plan was to use monitored anesthesia care (MAC). Immediately prior to administration of medications, the patient was re-assessed for adequacy to receive sedatives. The heart rate, respiratory rate, oxygen saturations, blood pressure, adequacy of pulmonary ventilation, and response to care were monitored throughout the procedure. The physical status of the patient was re-assessed after the procedure. After obtaining informed consent, the endoscope was passed under direct vision. Throughout the procedure, the patient's blood pressure, pulse, and oxygen saturations were monitored continuously. The colonoscope was introduced through the mouth, and advanced to the second part of duodenum. The upper GI endoscopy was accomplished without difficulty. The patient tolerated the procedure well. Scope In: 7:22:28 AM Scope Out: 7:26:41 AM Total Procedure Duration Time 0 hours 4 minutes 13 seconds Findings: The Z-line was irregular and was found 39 cm from the incisors. Biopsies were taken with a cold forceps for histology. Verification of patient identification for the specimen was done. Estimated blood loss was minimal. Patchy mild inflammation characterized by erythema was found in the gastric body. Biopsies were taken with a cold forceps for histology. Verification of patient identification for the specimen was done. Estimated blood loss was minimal. No gross lesions were noted in the second portion of the duodenum. Biopsies were taken with a cold forceps for histology. Verification of patient identification for the specimen was done. Estimated blood loss was minimal. Impression: - Z-line irregular, 39 cm from the incisors. Biopsied. - Chronic gastritis. Biopsied. - No gross lesions in the second portion of the duodenum. Biopsied. Recommendation: - Discharge patient to home. - Resume previous diet. - Continue present medications. - Await pathology results. Procedure Code(s): --- Professional --- 20630, Esophagogastroduodenoscopy, flexible, transoral; with biopsy, single or multiple CPT copyright 2017 [employer]. All rights reserved. The codes documented in this report are preliminary and upon waste minimization technician review may be revised to meet current compliance requirements. Grzegorz Cole DO 04/08/2023 7:55:01 AM This report has been signed electronically. Number of Addenda: 0 Note Initiated On: 04/08/2023 7:14 AM
--- NOTE | 2023-04-08 07:56 | OP.CCLET_ITS ---
04/08/2023 Nagi Blanc MD Re : Upper GI endoscopy procedure for Calli Cano Dear Dr. Blanc This procedure was performed on March. My impressions and recommendations are as follows: Impressions : - Z-line irregular, 39 cm from the incisors. Biopsied. - Chronic gastritis. Biopsied. - No gross lesions in the second portion of the duodenum. Biopsied. Recommendations : - Discharge patient to home. - Resume previous diet. - Continue present medications. - Await pathology results. My findings are described in the full procedure note, which is enclosed. If I can be of further assistance, please feel free to contact me at . Sincerely, Grzegorz Cole, 04/08/2023 7:55:01 AM This report has been signed electronically.
--- NOTE | 2023-04-08 08:00 | OP.COLON_ITS ---
Patient Name: Calli Cano Procedure Date: 04/08/2023 7:26 AM Date of : 1990 Age: 33 Procedure: Colonoscopy Indications: Generalized abdominal pain Providers: Grzegorz Cole DO Referring MD: Grzegorz Cole DO Medicines: Monitored Anesthesia Care Patient Profile: This is a 33 year old female. Refer to note in patient chart for documentation of history and physical. Patient has symptoms. Last Colonoscopy: date unknown. Unable to locate last colonoscopy report. Complications: No immediate complications. Procedure: Pre-Anesthesia Assessment: - Prior to the procedure, a History and Physical was performed, and patient medications and allergies were reviewed. The patient is competent. The risks and benefits of the procedure and the sedation options and risks were discussed with the patient. All questions were answered and informed consent was obtained. Patient identification and proposed procedure were verified by the physician in the pre-procedure area. Mental Status Examination: alert and oriented. Airway Examination: normal oropharyngeal airway and neck mobility. Respiratory Examination: clear to auscultation. CV Examination: normal. Prophylactic Antibiotics: The patient does not require prophylactic antibiotics. Prior Anticoagulants: The patient has taken no previous anticoagulant or antiplatelet agents. ASA Grade Assessment: II - A patient with mild systemic disease. After reviewing the risks and benefits, the patient was deemed in satisfactory condition to undergo the procedure. The anesthesia plan was to use monitored anesthesia care (MAC). Immediately prior to administration of medications, the patient was re-assessed for adequacy to receive sedatives. The heart rate, respiratory rate, oxygen saturations, blood pressure, adequacy of pulmonary ventilation, and response to care were monitored throughout the procedure. The physical status of the patient was re-assessed after the procedure. After I obtained informed consent, the scope was passed under direct vision. Throughout the procedure, the patient's blood pressure, pulse, and oxygen saturations were monitored continuously. The colonoscope was introduced through the anus and advanced to the terminal ileum. The colonoscopy was performed without difficulty. The patient tolerated the procedure well. The quality of the bowel preparation was adequate. Scope In: 7:28:24 AM Scope Withdrawal Time 0 hours 12 minutes 17 seconds Scope Out: 7:45:08 AM Total Procedure Duration Time 0 hours 16 minutes 44 seconds Findings: The digital rectal exam findings include decreased sphincter tone. An area of mildly congested mucosa was found in the sigmoid colon, in the descending colon, in the transverse colon, in the ascending colon and in the cecum. Biopsies were taken with a cold forceps for histology. Verification of patient identification for the specimen was done. Estimated blood loss was minimal. The ileocecal valve contained a benign-appearing, intrinsic mild stenosis that was traversed. Biopsies were taken with a cold forceps for histology. Verification of patient identification for the specimen was done. Estimated blood loss was minimal. Impression: - Decreased sphincter tone found on digital rectal exam. - Congested mucosa in the sigmoid colon, in the descending colon, in the transverse colon, in the ascending colon and in the cecum. Biopsied. - Stricture at the ileocecal valve. Biopsied. Recommendation: - Discharge patient to home. - Resume previous diet. - Continue present medications. - Await pathology results. - Repeat colonoscopy for surveillance. Procedure Code(s): --- Professional --- 65326, Colonoscopy, flexible; with biopsy, single or multiple CPT copyright 2017 [employer]. All rights reserved. The codes documented in this report are preliminary and upon pet ambassador review may be revised to meet current compliance requirements. Grzegorz Cole DO 04/08/2023 7:59:33 AM This report has been signed electronically. Number of Addenda: 0 Note Initiated On: 04/08/2023 7:26 AM
--- NOTE | 2023-04-08 08:00 | OP.CCLET_ITS ---
04/08/2023 Nagi Blanc MD Re : Colonoscopy procedure for Calli Cano Dear Dr. Blanc This procedure was performed on March. My impressions and recommendations are as follows: Impressions : - Decreased sphincter tone found on digital rectal exam. - Congested mucosa in the sigmoid colon, in the descending colon, in the transverse colon, in the ascending colon and in the cecum. Biopsied. - Stricture at the ileocecal valve. Biopsied. Recommendations : - Discharge patient to home. - Resume previous diet. - Continue present medications. - Await pathology results. - Repeat colonoscopy for surveillance. My findings are described in the full procedure note, which is enclosed. If I can be of further assistance, please feel free to contact me at . Sincerely, Grzegorz Cole, 04/08/2023 7:59:33 AM This report has been signed electronically.
== END 2023-04-08 08:33 | disposition home or self-care (01) ==
LOC: EN 05:58 → AC 05:59
PROVIDERS: PCP Family Medicine; Referring Provider Family Medicine; Visit Provider Internal Medicine Gastroenterology
PROC: 0DJD8ZZ Inspection of Lower Intestinal Tract, Via Natural or Artificial Opening Endoscopic (ICD-10-PCS; CPT 45378; principal; 2023-04-08 06:55)
DX: K29.50 Unspecified chronic gastritis without bleeding (principal); Z90.49 Acquired absence of other specified parts of digestive tract; J45.909 Unspecified asthma, uncomplicated; I10 Essential (primary) hypertension; Z79.899 Other long term (current) drug therapy; Z79.890 Hormone replacement therapy; E03.9 Hypothyroidism, unspecified
CPT/HCPCS: 43239; 45380; 88305; 88313; 88342; J2405

== ENCOUNTER 2023-04-24 12:43 | Emergency (ER) | payer MEDICAID, SELFPAY ==
[2023-04-24 12:43] VITALS: BP 175/111; PULSE 95; RESP 18; TEMP 36.8; O2SAT 100; BMI 34.9
--- NOTE | 2023-04-24 12:59 | EDS_ITS ---
HPI <JERI Antonio - Last Filed: 04/24/23 14:40> History of Present Illness Chief Complaint: Flank Pain Narrative Narrative: Patient is here with 2 weeks of right flank pain. She states she was seen at [facility] and had a CT scan which showed no abnormalities. She states they could not get an IV so they just gave her IM pain meds and sent her home. The pain went away for couple days but then came back. It stays focused in an area in her right back. She takes tramadol and ibuprofen without relief. She is having normal urination and once daily bowel movement. Over the last 2 days she has had nausea and vomiting. No fever or chills. She has a history of thyroid cancer s/p thyroidectomy about 5 years ago. She completed radiation. Her oncologist at [facility] told her there is still some remnants of cancer but they cannot do another operation. 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 PFS <JERI Antonio - Last Filed: 04/24/23 14:40> [facility] Medical History (Updated 04/24/23 @ 14:29 by JERI Antonio) Anemia Anxiety Asthma Back pain Bloating Cancer Cardiology follow-up encounter Chronic fatigue Congenital heart defect Congenital hip deformity DDD (degenerative disc disease) Environmental allergies Fibromyalgia History of GI bleed Hypertension Kidney stone Lactose intolerance Leg cramps Lupus Migraine headache Non-smoker Papillary thyroid carcinoma PTSD (post-traumatic stress disorder) Shortness of breath on exertion Vitamin D deficiency Home Medications albuterol sulfate 90 mcg/actuation aerosol inhaler 1 - 2 puff inhalation Q4H PRN PRN Sob &/Or Wheezing 11/06/19 [History Last Taken Unknown] cyclobenzaprine 5 mg tablet 5 mg PO BID 10/28/22 [History Last Taken Unknown] hydrochlorothiazide 12.5 mg capsule 12.5 mg PO DAILY 10/28/22 [History Last Taken Unknown] prazosin 1 mg capsule 1 mg PO QHS 10/28/22 [History Last Taken Unknown] rizatriptan 10 mg tablet (Maxalt) 10 mg PO PRN PRN MIGRAINES 10/28/22 [History Last Taken Unknown] levothyroxine 100 mcg tablet 200 mcg PO DAILY 01/19/23 [History Last Taken Unknown] promethazine 25 mg tablet 25 mg PO TID PRN nausea and vomiting #30 tabs 01/19/23 [Rx Last Taken Unknown] cariprazine 3 mg capsule (Vraylar) 3 mg PO QHS 04/05/23 [History Last Taken Unknown] tramadol 50 mg tablet 50 mg PO Q6H PRN Pain 04/05/23 [History Last Taken Unknown] colestipol 1 gram tablet 1 g PO DAILY #30 tabs 04/12/23 [Rx Last Taken Unknown] Allergy/AdvReac Type Severity Reaction Status Date / Time amphetamine [From Adderall] Allergy Severe unknown Verified 04/24/23 12:45 dextroamphetamine Allergy Severe unknown Verified 04/24/23 12:45 [From Adderall] adhesive tape Allergy Intermediate Rash Verified 04/24/23 12:45 morphine Allergy Rash Verified 04/24/23 12:45 Family History (Reviewed 01/19/23 @ 09:23 by Marcella Martin SHEAR OPERATOR [employer]OMATIC, SHEAR OPERATOR [employer]-C) Mother Asthma Diabetes Hypertension Crohn's disease Kidney disease Father Hypertension Sister Bone cancer Other Bipolar 1 disorder Surgical History (Updated 04/05/23 @ 14:13 by Carlie Medel) History of cystoscopy History of sinus surgery Hx of cholecystectomy Hx of colonoscopy Hx of esophagogastroduodenoscopy Hx of thyroidectomy Hx of tubal ligation S/P right knee arthroscopy Social History (Reviewed 01/19/23 @ 09:23 by Marcella Martin SHEAR OPERATOR AUTOMATIC, SHEAR OPERATOR [employer]-C) Smoking Status: Never smoker alcohol intake: never ROS <JERI Antonio - Last Filed: 04/24/23 14:40> ROS ED ROS Narrative Constitutional: Negative for fever, chills, malaise. CVS: Negative for palpitations, chest pain. Respiratory: Negative for shortness of breath, cough. GI: Positive for nausea, vomiting, melena. Negative for abdominal pain, diarrhea, constipation,hematochezia. : Negative for dysuria, hematuria or frequency. Skin: Negative for rash, abscess, or wound. EXAM <JERI Antonio - Last Filed: 04/24/23 14:40> Physical Exam Narrative Exam Narrative: CONST: Patient sitting in no acute distress. She does have very round edematous face and slight edema of the upper and lower extremities. EYES: Normal inspection. NECK: Normal inspection. RESP: No respiratory distress, CTAB. CVS: Regular rate and rhythm, no murmur, no gallop. ABD: Soft and nontender, no guarding or rebound, nondistended. Back: Normal inspection, tender over focal spot right lateral lumbar muscles. SKIN: Color normal, no rash, warm, dry, intact. EXTREMITIES: Normal appearance, no pedal edema. NEURO: Oriented x4. PSYCH: Normal affect. Const Vital Signs: 04/24/23 12:43 04/24/23 13:50 04/24/23 14:47 Temperature 98.2 F Temperature Source Temporal Pulse Rate 95 89 Respiratory Rate 18 18 Respiratory Effort Short of Breath Respiratory Pattern Normal Blood Pressure 175/111 H 142/81 H Blood Pressure Mean 132 Pulse Ox 100 98 Oxygen Delivery Method Room Air <Dr. Oscar Steward MD - Last Filed: 04/24/23 15:36> Physical Exam Const Vital Signs: 04/24/23 12:43 04/24/23 13:50 04/24/23 14:47 Temperature 98.2 F Temperature Source Temporal Pulse Rate 95 89 Respiratory Rate 18 18 Respiratory Effort Short of Breath Respiratory Pattern Normal Blood Pressure 175/111 H 142/81 H Blood Pressure Mean 132 Pulse Ox 100 98 Oxygen Delivery Method Room Air MDM <JERI Antonio - Last Filed: 04/24/23 14:40> [facility] Narrative Medical decision making narrative: Patient here with 1 month of right flank pain. She also is concerned about her months long history of swelling all over. She appears well and nontoxic. She is hypertensive with otherwise normal vital signs. She does have edema especially in her face and a little bit in her upper and lower extremities. Her heart and lung sounds are normal. Abdomen soft, nontender, nondistended. Blood work shows white count of 11.2, mild anemia 11.9 (previously 12.4) potassium 3.1, BUN 13, creatinine 1.14. Overall not markedly abnormal to explain any of her symptoms. UA is negative for infection. I reviewed the CT scan of the abdomen/pelvis she had done on 03/28/2023 which was negative. She is not presenting as a kidney stone and a right flank pain is dull and lasting off and on for months so I do not think further emergent imaging is indicated. I recommended Tylenol, Motrin, ice as needed in case it is musculoskeletal pain. I recommended to follow-up with her PCP and oncologist who has more blood work ordered this week to determine the cause of her edema. She was discharged in stable condition. Differential: Musculoskeletal flank pain, UTI, Kurt, renal stone, unknown etiology Lab Data Attestation: I reviewed the patient's lab results. Labs: Laboratory Results - last 24 hr 04/24/23 04/24/23 04/24/23 13:10 13:25 13:25 WBC 11.2 H RBC 3.95 L Hgb 11.9 L Hct 33.1 L MCV 83.8 MCH 30.1 MCHC 36.0 RDW Std Deviation 47.4 H RDW Coeff of Ame 15.8 H Plt Count 237 MPV 10.2 Immature Gran % (Auto) 2.700 H Neut % (Auto) 63.7 Lymph % (Auto) 26.7 [place] % (Auto) 4.9 Eos % (Auto) 1.6 Baso % (Auto) 0.4 Absolute Neuts (auto) 7.1 Absolute Lymphs (auto) 2.98 Nucleated RBC % 0 Sodium 141 Potassium 3.1 L Chloride 103 Carbon Dioxide 28.0 Anion Gap 10 BUN 13 Creatinine 1.14 H Estim Creat Clear Calc 63.75 Est GFR (MDRD) Af Amer 71 Est GFR (MDRD) Non-Af 59 L BUN/Creatinine Ratio 11.4 Glucose 84 Calcium 9.8 Urine Color Yellow Urine Clarity Clear Urine pH 7.0 Ur Specific [place] 1.010 Urine Protein 15 H Urine Glucose (UA) Normal Urine Ketones Negative Urine Occult Blood Negative Urine Nitrite Negative Urine Bilirubin Negative Urine Urobilinogen Normal Ur Leukocyte Esterase 100 H Urine RBC 0 SEEN Urine WBC 0-5 SEEN Ur Squamous Epith Cells 5-10 SEEN Urine Bacteria 0 SEEN Urine Mucus 0 SEEN <Dr. Oscar Steward MD - Last Filed: 04/24/23 15:36> [facility] MDM Narrative Medical decision making narrative: Patient here with 1 month of right flank pain. She also is concerned about her months long history of swelling all over. She appears well and nontoxic. She is hypertensive with otherwise normal vital signs. She does have edema especially in her face and a little bit in her upper and lower extremities. Her heart and lung sounds are normal. Abdomen soft, nontender, nondistended. Blood work shows white count of 11.2, mild anemia 11.9 (previously 12.4) potassium 3.1, BUN 13, creatinine 1.14. Overall not markedly abnormal to explain any of her symptoms. UA is negative for infection. I reviewed the CT scan of the abdomen/pelvis she had done on 03/28/2023 which was negative. She is not presenting as a kidney stone and a right flank pain is dull and lasting off and on for months so I do not think further emergent imaging is indicated. I recommended Tylenol, Motrin, ice as needed in case it is musculoskeletal pain. I recommended to follow-up with her PCP and oncologist who has more blood work ordered this week to determine the cause of her edema. She was discharged in stable condition. Differential: Musculoskeletal flank pain, UTI, Kurt, renal stone, unknown etiology I have personally performed a face to face assessment of the patient and have reviewed the WU Note. I performed a substantive portion of the visit including all aspects of the following. My tai findings include: History is remarkable for flank pain on the right. She was seen at outlying facility. CT revealed no pathology to explain her discomfort. Patient reports swelling of her entire body. She is undergoing endocrine work-up for possible Olathe's disorder. She does endorse weight gain. She does endorse nausea without vomiting or diarrhea. She denies respiratory or cardiac symptoms. Exam is remarkable for elevated blood pressure. Patient does have a rubin face. Question of a buffalo hump. Heart lung exam is normal. Abdomen soft nontender. She has reproducible flank pain. Movement exacerbates her pain. Straight leg test is negative. No neurovascular mise of lower extremity. Medical Decision Making suspect patient's flank pain is due to muscular etiology. Labs from outside facility were obtained. Patient's cortisol level is low which would rule out Olathe syndrome. CBC reveals slightly Elave white count with anemia. Indices are normal. The notion of. Basic metabolic panel reveals potassium 3.1. Creatinine is elevated 1.14 with a GFR 59. This is unchanged Labs obtained through the [facility]. You he is unremarkable. Other additions or changes: Keep scheduled appointment with air brake adjuster and told that her flank pain is muscular etiology. Lab Data Labs: Laboratory Results - last 24 hr 04/24/23 04/24/23 04/24/23 13:10 13:25 13:25 WBC 11.2 H RBC 3.95 L Hgb 11.9 L Hct 33.1 L MCV 83.8 MCH 30.1 MCHC 36.0 RDW Std Deviation 47.4 H RDW Coeff of Ame 15.8 H Plt Count 237 MPV 10.2 Immature Gran % (Auto) 2.700 H Neut % (Auto) 63.7 Lymph % (Auto) 26.7 [place] % (Auto) 4.9 Eos % (Auto) 1.6 Baso % (Auto) 0.4 Absolute Neuts (auto) 7.1 Absolute Lymphs (auto) 2.98 Nucleated RBC % 0 Sodium 141 Potassium 3.1 L Chloride 103 Carbon Dioxide 28.0 Anion Gap 10 BUN 13 Creatinine 1.14 H Estim Creat Clear Calc 63.75 Est GFR (MDRD) Af Amer 71 Est GFR (MDRD) Non-Af 59 L BUN/Creatinine Ratio 11.4 Glucose 84 Calcium 9.8 Urine Color Yellow Urine Clarity Clear Urine pH 7.0 Ur Specific [place] 1.010 Urine Protein 15 H Urine Glucose (UA) Normal Urine Ketones Negative Urine Occult Blood Negative Urine Nitrite Negative Urine Bilirubin Negative Urine Urobilinogen Normal Ur Leukocyte Esterase 100 H Urine RBC 0 SEEN Urine WBC 0-5 SEEN Ur Squamous Epith Cells 5-10 SEEN Urine Bacteria 0 SEEN Urine Mucus 0 SEEN Discharge Plan Triage Chief Complaint: Flank Pain ED Midlevel Provider: Tania Gonzalez ED Provider: Oscar Steward Dx/Rx/DC Orders Clinical Impression: Acute right flank pain Instructions: ED Flank Pain, Uncertain Cause Prescriptions: No Action cyclobenzaprine 5 mg tablet 5 mg PO BID prazosin 1 mg capsule 1 mg PO QHS hydrochlorothiazide 12.5 mg capsule 12.5 mg PO DAILY rizatriptan [Maxalt] 10 mg tablet 10 mg PO PRN PRN (Reason: MIGRAINES) promethazine 25 mg tablet 25 mg PO TID PRN (Reason: nausea and vomiting) Qty: 30 2RF levothyroxine 100 mcg tablet 200 mcg PO DAILY Label Comments: 200 mcg 5 days per week, 225 mcg 2 days per week albuterol sulfate 1 INHALER inhaler 1 - 2 puff inhalation Q4H PRN MDD \ PRN (Reason: Sob &/Or Wheezing) tramadol 50 mg Tablet 50 mg PO Q6H PRN (Reason: Pain) Vraylar 3 mg Capsule 3 mg PO QHS colestipol 1 gram tablet 1 g PO DAILY Qty: 30 3RF Rx Instructions: avoid other meds 1 hr before and 4 hrs after taking colestipol Primary Care Provider: Nagi Blanc Referrals: Nagi Blanc MD [Primary Care Provider] - Activity Restrictions/Additional Instructions: I reviewed outside records of the CT of your abdomen/pelvis and there is no acute findings. Urine today shows no infection and blood work shows nothing to explain the pain. Is most likely musculoskeletal and I would treated with OTC p ain relievers. Follow-up with your primary care or oncologist to work-up your overall swelling. Cortisol level appear to be low which could indicate an adrenal insufficiency which needs more work-up with your doctors.. Disposition Disposition: Home, Self Care Discharge Date/Time: 04/24/23 14:54
[2023-04-24 13:17] LABS: Bacteria 0 SEEN /hpf (None Seen); Mucous, Urine 0 SEEN /hpf (<or=2+); Red Blood Cells-Urine 0 SEEN /hpf (0-5)
[2023-04-24 13:28] LABS: Color, Urine Yellow (Yellow); Glucose, Dipstick Normal (Normal); Ketone-Dipstick Negative (Negative); Leukocyte Esterase-Dipstick 100 /ul (Negative); Nitrite-Dipstick Negative (Negative); Occult Blood-Urine Negative /ul (Negative); Protein-Dipstick 15 mg/dl (Negative); Urine Bilirubin Dipstick Negative (Negative); Urine Clarity Clear (Clear); Urine Urobilinogen Normal (Normal)
[2023-04-24 13:40] LABS: Squamous Epithelial Cells - UA 5-10 SEEN /hpf (5-10); White Blood Cells 0-5 SEEN /hpf (0-5)
[2023-04-24] MEDS: Ketorolac 15 MG/ML Vial IV (13:45)
[2023-04-24] MEDS: Ondansetron 4 MG/2 ML Vial IV (13:45)
[2023-04-24 13:53] LABS: Absolute Lymphocyte Count 2.98 X10^3/uL (0.83-4.51); Absolute Neutrophil Count 7.1 X10^3/uL (2.0-7.7); Basophil# 0.05 X10^3/uL; Basophil% 0.4 % (0-1); Eosinophil# 0.18 X10^3/uL; Eosinophils% 1.6 % (0-5); Hematocrit 33.1 % (37-47); Hemoglobin 11.9 g/dL (12.0-15.0); Lymphocyte # 2.98 X10^3/ul (0.83-4.51); Lymphocyte % 26.7 % (19-41); Mean Corpuscular Hgb 30.1 pg (27.0-32.0); Mean Corpuscular Volume 83.8 fL (81-99); Mean Platelet Vol. 10.2 fl (6.2-12.0); Monocyte# 0.55 X10^3/uL; Monocyte% 4.9 % (0-10); NRBC Flagged by Analyzer 0 % (0-5); Neutrophil # 7.11 X10^3/uL (2.7-7.7); Neutrophil % 63.7 % (47-70); Platelet Count 237 K/mm3 (150-450); RBC Distribution Width CV 15.8 % (11.6-14.6); RBC Distribution Width SD 47.4 fl (35.1-43.9); Red Blood Count 3.95 M/mm3 (4.2-5.4); White Blood Count 11.2 K/mm3 (4.4-11.0)
[2023-04-24 14:03] LABS: Anion Gap 10 (5-15); BUN 13 mg/dL (7-18); BUN/Creat Ratio 11.4 RATIO (10-20); Calcium,Total 9.8 mg/dL (8.5-10.1); Chloride 103 mmol/L (98-107); Creatinine, Serum 1.14 mg/dL (0.55-1.02); EST Glomerular Filtration Rate 59 mL/min (>60); Est Glom Filt Rate - Afr Amer 71 mL/min (>60); Estimated Creatinine Clearance 63.75 ml/min; Glucose 84 mg/dL (74-106); Potassium 3.1 mmol/L (3.5-5.1); Sodium Level 141 mmol/L (136-145)
[2023-04-24] MEDS: Potassium Chloride Oral Tablet 20 MEQ 40 MEQ PO (14:45)
[2023-04-24 14:47] VITALS: BP 142/81; PULSE 89; RESP 18; O2SAT 98
== END 2023-04-24 14:54 | disposition home or self-care (01) ==
PROVIDERS: Physician Assistant; Emergency Provider Emergency Medicine; PCP Family Medicine; Visit Provider Emergency Medicine
DX: R10.9 Unspecified abdominal pain (principal); I10 Essential (primary) hypertension; Z85.850 Personal history of malignant neoplasm of thyroid; J45.909 Unspecified asthma, uncomplicated; Z79.899 Other long term (current) drug therapy; G43.909 Migraine, unspecified, not intractable, without status migrainosus; Z90.49 Acquired absence of other specified parts of digestive tract
CPT/HCPCS: 80048; 81001; 85025; 96374; 96375; 99283; J2405

== ENCOUNTER 2023-12-31 16:38 | Emergency (ER) | payer MEDICAID, SELFPAY ==
[2023-12-31 16:38] VITALS: BP 155/116; PULSE 101; RESP 16; TEMP 36.6; O2SAT 100; BMI 32.1
[2023-12-31 16:54] LABS: Absolute Lymphocyte Count 2.61 X10^3/uL (0.83-4.51); Absolute Neutrophil Count 7.4 X10^3/uL (2.0-7.7); Basophil# 0.04 X10^3/uL; Basophil% 0.4 % (0-1); Eosinophil# 0.12 X10^3/uL; Eosinophils% 1.1 % (0-5); Hematocrit 41.5 % (37-47); Hemoglobin 13.7 g/dL (12.0-15.0); Lymphocyte # 2.61 X10^3/ul (0.83-4.51); Lymphocyte % 23.8 % (19-41); Mean Corpuscular Hgb 26.5 pg (27.0-32.0); Mean Corpuscular Volume 80.3 fL (81-99); Mean Platelet Vol. 9.6 fl (6.2-12.0); Monocyte# 0.67 X10^3/uL; Monocyte% 6.1 % (0-10); NRBC Flagged by Analyzer 0 % (0-5); Neutrophil # 7.44 X10^3/uL (2.7-7.7); Neutrophil % 67.8 % (47-70); Platelet Count 244 K/mm3 (150-450); RBC Distribution Width CV 14.6 % (11.6-14.6); RBC Distribution Width SD 42.5 fl (35.1-43.9); Red Blood Count 5.17 M/mm3 (4.2-5.4)
--- NOTE | 2023-12-31 17:01 | CT_ITS ---
INDICATION: RLQ pain EXAMINATION: CT Abdomen And Pelvis W/ Contrast Injection TECHNIQUE: Helically acquired images were obtained of the abdomen and pelvis after IV contrast. A radiation dose optimization technique was used for this scan. IV Contrast dosage and agent: IV 100mL [id number] Oral contrast: None. COMPARISON: None. FINDINGS: Visualized lung bases: Unremarkable Liver: Unremarkable Gallbladder: Surgically absent. Spleen: Unremarkable Pancreas: Unremarkable Adrenal Glands: Unremarkable Kidneys: Few punctate nonobstructing stones in the lower poles of both kidneys. Vasculature: Unremarkable GI Tract: The appendix is normal. Lymphadenopathy: None Peritoneum: Trace pelvic free fluid. Bladder: Mild circumferential wall thickening with subtle surrounding inflammatory changes. Reproductive organs: Unremarkable Bones/Soft tissues: No suspicious osseous or soft tissue lesions CT/Abdomen/Pelvis W IV Cont ONLY IMPRESSION: The appendix is normal. Findings suspicious for cystitis. Correlate with urinalysis. Few punctate nonobstructing stones in the lower poles of both kidneys. Electronically Signed: Rj Giles MD at 18:03 EST ,
--- NOTE | 2023-12-31 17:02 | EX.ED.DYSGE1 ---
HPI History of Present Illness Chief Complaint: Abd Pain Informant: patient Onset/Context/Timing Onset: Yesterday Context: Gradual Onset Current Severity: Moderate Maximum Severity: Moderate Narrative Narrative: Patient presents secondary to right lower quadrant pain. She developed abdominal pain yesterday that is progressed today and now also has nausea and vomiting. She states her temperature was up to 100.2. She has not had much of an appetite. She does have a history of kidney stones as well as ovarian cysts, but states this does not feel similar. [facility] Medical History Anemia Anxiety Asthma Back pain Bloating Cancer Cardiology follow-up encounter Chronic fatigue Congenital heart defect Congenital hip deformity DDD (degenerative disc disease) Environmental allergies Fibromyalgia History of GI bleed Hypertension Kidney stone Lactose intolerance Leg cramps Lupus Migraine headache Non-smoker Papillary thyroid carcinoma PTSD (post-traumatic stress disorder) Shortness of breath on exertion Vitamin D deficiency Home Medications albuterol sulfate 90 mcg/actuation aerosol inhaler 1 - 2 puff inhalation Q4H PRN PRN Sob &/Or Wheezing 11/06/19 [History Last Taken Unknown] cyclobenzaprine 5 mg tablet 5 mg PO BID 10/28/22 [History Last Taken Unknown] hydrochlorothiazide 12.5 mg capsule 12.5 mg PO DAILY 10/28/22 [History Last Taken Unknown] prazosin 1 mg capsule 1 mg PO QHS 10/28/22 [History Last Taken Unknown] rizatriptan 10 mg tablet (Maxalt) 10 mg PO PRN PRN MIGRAINES 10/28/22 [History Last Taken Unknown] levothyroxine 100 mcg tablet 200 mcg PO DAILY 01/19/23 [History Last Taken Unknown] cariprazine 3 mg capsule (Vraylar) 3 mg PO QHS 04/05/23 [History Last Taken Unknown] tramadol 50 mg tablet 50 mg PO Q6H PRN Pain 04/05/23 [History Last Taken Unknown] colestipol 1 gram tablet 2 g (2 x 1 gram) PO DAILY #60 tabs 05/06/23 [Rx Last Taken Unknown] promethazine 25 mg tablet 25 mg PO TID PRN nausea and vomiting #90 tabs 05/06/23 [Rx Last Taken Unknown] scopolamine base 1 mg over 3 days transdermal patch 1 patch transdermal Q3D PRN nausea and vomiting #10 ea 05/06/23 [Rx Last Taken Unknown] naproxen 500 mg tablet (Naprosyn) 500 mg PO BID PRN pain #20 tabs 12/31/23 [Rx Last Taken Unknown] ondansetron 4 mg disintegrating tablet 4 mg PO Q8H PRN PRN Nausea #10 tabs 12/31/23 [Rx Last Taken Unknown] Allergy/AdvReac Type Severity Reaction Status Date / Time amphetamine [From Adderall] Allergy Severe unknown Verified 12/31/23 16:38 dextroamphetamine Allergy Severe unknown Verified 12/31/23 16:38 [From Adderall] adhesive tape Allergy Intermediate Rash Verified 12/31/23 16:38 morphine Allergy Rash Verified 12/31/23 16:38 Family History Mother Asthma Diabetes Hypertension Crohn's disease Kidney disease Father Hypertension Sister Bone cancer Other Bipolar 1 disorder Surgical History History of cystoscopy History of sinus surgery Hx of cholecystectomy Hx of colonoscopy Hx of esophagogastroduodenoscopy Hx of thyroidectomy Hx of tubal ligation S/P right knee arthroscopy Social History Smoking Status: Never smoker alcohol intake: never ROS ROS ED Constitutional Constitutional ED: Reports fever(s); Denies chills Eyes Eyes: Denies change in vision ENT ENT ED: Denies sore throat Cardiovascular Cardiovascular: Denies chest pain Respiratory/Chest Respiratory/Chest: Denies cough or dyspnea Gastrointestinal Gastrointestinal: Reports abdominal pain, nausea and vomiting; Denies diarrhea Genitourinary Genitourinary ED: Denies dysuria, hematuria or urinary frequency Musculoskeletal Musculoskeletal: Denies back pain Integumentary Denies rash Neurologic Neurologic: Denies headache(s) or weakness Psychiatric Psychiatric: Denies anxiety or depression Allergic/Immunologic Allergic/Immunologic ED: Denies urticaria EXAM Physical Exam Const Vital Signs: 12/31/23 16:38 Temperature 97.8 F Temperature Source Temporal Pulse Rate 101 H Respiratory Rate 16 Blood Pressure 155/116 H Blood Pressure Mean 129 Pulse Ox 100 Oxygen Delivery Method Room Air Positive well nourished and well developed General Appearance ED: well developed HEENT Reports moist mucous membranes Eyes EOMs intact bilaterally Chest Wall inspection of chest normal and palpation of chest normal Resp normal respiratory effort and clear to auscultation bilaterally Cardio regular rate and regular rhythm GI GI Narrative: Abdomen soft with mild diffuse tenderness. Moderate tenderness noted in the right lower quadrant. No guarding or rebound. Extremity normal to inspection Neuro oriented x3 and no sensory deficits noted Motor Exam: strength 5/5 throughout Psych mental status grossly normal Skin no rashes or lesions noted MDM MDM MDM Narrative Medical decision making narrative: IV line established. Labwork obtained to evaluate for leukocytosis, anemia, and electrolyte derangement. Urinalysis obtained to evaluate for infection/hematuria. CT scan with IV contrast obtained to evaluate for possible appendicitis, renal colic, ovarian cyst. Patient treated with Dilaudid and Zofran along with IV fluids. History & Record Review Discussion w/independent historian: Patient Lab Data Attestation: I reviewed the patient's lab results. Labs: Laboratory Results - last 24 hr 12/31/23 12/31/23 16:47 17:20 WBC 11.0 RBC 5.17 Hgb 13.7 Hct 41.5 MCV 80.3 L MCH 26.5 L MCHC 33.0 RDW Std Deviation 42.5 RDW Coeff of Ame 14.6 Plt Count 244 MPV 9.6 Immature Gran % (Auto) 0.800 Neut % (Auto) 67.8 Lymph % (Auto) 23.8 [place] % (Auto) 6.1 Eos % (Auto) 1.1 Baso % (Auto) 0.4 Absolute Neuts (auto) 7.4 Absolute Lymphs (auto) 2.61 Nucleated RBC % 0 Sodium 140 Potassium 3.4 L Chloride 108 H Carbon Dioxide 28.0 Anion Gap 4 L BUN 9 Creatinine 0.74 Estim Creat Clear Calc 119.26 Est GFR (MDRD) Af Amer 117 Est GFR (MDRD) Non-Af 97 BUN/Creatinine Ratio 12.2 Glucose 112 H Calcium 9.4 Total Bilirubin 0.40 AST 56 H ALT 103 H Alkaline Phosphatase 110 Total Protein 8.0 Albumin 3.9 Globulin 4.1 Albumin/Globulin Ratio 1.0 Serum , Qual NEGATIVE Urine Color Yellow Urine Clarity Clear Urine pH 6.0 Ur Specific [place] 1.025 Urine Protein 15 H Urine Glucose (UA) Normal Urine Ketones Negative Urine Occult Blood Negative Urine Nitrite Negative Urine Bilirubin Negative Urine Urobilinogen Normal Ur Leukocyte Esterase Negative Urine RBC 0 SEEN Urine WBC 0 SEEN Ur Squamous Epith Cells 0-5 SEEN Urine Bacteria 0 SEEN Urine Mucus 0 SEEN Radiography Diagnostic Testing: Clinical Impression(s) from Imaging Studies Abdomen/Pelvis CT 12/31/23 17:01 IMPRESSION: The appendix is normal. Findings suspicious for cystitis. Correlate with urinalysis. Few punctate nonobstructing stones in the lower poles of both kidneys. Electronically Signed: Rj Giles MD at 18:03 EST , Treatment and Re-Evaluation :: CBC was normal white count 11.0 with normal differential. Chemistry studies reveal potassium 3.4, otherwise values normal. LFTs significant for a an AST of 56 and an ALT of 103. Patient has had prior cholecystectomy. test negative. Urinalysis reveals no evidence of infection. CT scan of the abdomen pelvis with IV contrast reveals a normal appendix. Bladder wall is slightly thickened concerning for cystitis. Few punctate nonobstructing stones are seen in the lower poles of the kidneys. Test results were discussed with the patient. She has no evidence of UTI currently, but states she did recently have a UTI. She also has a small amount of free fluid and may have had a small ruptured ovarian cyst. At this time she is reassured that the appendix is unremarkable and no obvious signs of infection. She will continue supportive care. I will write her prescription for naproxen and Zofran. Return instructions are given. Discharge Plan Triage Chief Complaint: Abd Pain ED Provider: Roselia Blanton Dx/Rx/DC Orders Clinical Impression: Abdominal pain Instructions: ED Abdominal Pain Unkn Cause Fem Prescriptions: New naproxen [Naprosyn] 500 mg tablet 500 mg PO BID PRN (Reason: pain) Qty: 20 0RF ondansetron 4 mg tablet,disintegrating 4 mg PO Q8H PRN PRN (Reason: Nausea) Qty: 10 0RF No Action cyclobenzaprine 5 mg tablet 5 mg PO BID prazosin 1 mg capsule 1 mg PO QHS hydrochlorothiazide 12.5 mg capsule 12.5 mg PO DAILY rizatriptan [Maxalt] 10 mg tablet 10 mg PO PRN PRN (Reason: MIGRAINES) scopolamine base 1 mg over 3 days patch 3 day 1 patch transdermal Q3D PRN (Reason: nausea and vomiting) Qty: 10 5RF promethazine 25 mg tablet 25 mg PO TID PRN (Reason: nausea and vomiting) Qty: 90 1RF colestipol 1 gram tablet 2 g PO DAILY Qty: 60 3RF Rx Instructions: avoid other meds 1 hr before and 4 hrs after taking colestipol levothyroxine 100 mcg tablet 200 mcg PO DAILY Patient Comments: 200 mcg 5 days per week, 225 mcg 2 days per week albuterol sulfate 1 INHALER inhaler 1 - 2 puff inhalation Q4H PRN MDD \ PRN (Reason: Sob &/Or Wheezing) tramadol 50 mg Tablet 50 mg PO Q6H PRN (Reason: Pain) Vraylar 3 mg Capsule 3 mg PO QHS Primary Care Provider: Nagi Blanc Referrals: Nagi Blanc MD [Primary Care Provider] - 1-2 Weeks Disposition Disposition: Home, Self Care
[2023-12-31 17:08] LABS: Internal QC Validated? YES +Cl - CLEAR BKGD; Pregnancy, Serum, hCG Quali. NEGATIVE Negative
[2023-12-31 17:13] LABS: AST(SGOT) 56 U/L (15-37); Alanine Aminotransfer ALT/SGPT 103 U/L (13-56); Albumin, Serum 3.9 g/dL (3.2-5.0); Alkaline Phosphatase 110 U/L (45-117); Anion Gap 4 (5-15); BUN 9 mg/dL (7-18); BUN/Creat Ratio 12.2 RATIO (10-20); Calcium,Total 9.4 mg/dL (8.5-10.1); Chloride 108 mmol/L (98-107); Creatinine, Serum 0.74 mg/dL (0.55-1.02); EST Glomerular Filtration Rate 97 mL/min (>60); Est Glom Filt Rate - Afr Amer 117 mL/min (>60); Estimated Creatinine Clearance 119.26 ml/min; Globulin 4.1 g/dL (2.2-4.2); Glucose 112 mg/dL (74-106); Potassium 3.4 mmol/L (3.5-5.1); Sodium Level 140 mmol/L (136-145)
[2023-12-31] MEDS: 0.9% Normal Saline (1000mL) 1,000 ML 150 ML IV (17:16)
[2023-12-31] MEDS: Ondansetron 4 MG/2 ML Vial IV (17:16)
[2023-12-31] MEDS: HYDROmorphone 1 MG/ML Syringe 0.5 MG IV (17:17)
[2023-12-31 17:32] LABS: Bacteria 0 SEEN /hpf (None Seen); Mucous, Urine 0 SEEN /hpf (<or=2+); Red Blood Cells-Urine 0 SEEN /hpf (0-5); White Blood Cells 0 SEEN /hpf (0-5)
[2023-12-31 17:37] LABS: Color, Urine Yellow (Yellow); Glucose, Dipstick Normal (Normal); Ketone-Dipstick Negative (Negative); Leukocyte Esterase-Dipstick Negative /ul (Negative); Nitrite-Dipstick Negative (Negative); Occult Blood-Urine Negative /ul (Negative); Protein-Dipstick 15 mg/dl (Negative); Specific Gravity, Urine 1.025 (1.002-1.030); Urine Bilirubin Dipstick Negative (Negative); Urine Clarity Clear (Clear); Urine Urobilinogen Normal (Normal)
[2023-12-31 17:50] LABS: Squamous Epithelial Cells - UA 0-5 SEEN /hpf (5-10)
--- OUTSIDE RECORDS SUMMARY | 2023-12-31 18:21 | XMS RPT_ITS | CCD ---
Author Name Unknown Address [address] [place] [address] Organization [facility] Care Team Providers Care Automatic Bandsaw Tender Name Role Phone Nagi Red MD Primary Care Provider Nagi Red MD Unavailable Nagi Red MD Primary Care Provider Nagi Red MD Primary Care Provider Nagi Red MD Unavailable Nagi Red MD Primary Care Provider [phone] COCO DOCLAIRE N Admitting Unavailable OCCO DOCLAIRE Attending Unavailable NAGI RED Primary Care Unavailable ANTONIO [id number], AMIRA Lawrence Consulting Unavailable COCO DOCLAIRE Consulting Unavailable NAGI RED Consulting Unavailable WOOD DODUC Admitting Unavailable WOOD DODUC Attending Unavailable AIME DEMPSEY PA-C Consulting Unavaila NAGI Rosario Primary Care Unavailable NAGI RED Consulting Unavailable NAGI RED Primary Care Unavailable GORDO HARDY, DR SENA Barrett Admitting Unavaila ana CARO MD, DR SENA Barrett Consulting Unavaila ana CARO MD, DR SENA Barrett Attending Unavaila ana ALVAREZ [phone], AMIRA Lawrence Consulting Unavailable NAGI RED Consulting Unavailable GORDO HARDY, DR SENA Barrett Admitting Unavaila ana CARO MD, DR SENA Barrett Attending Unavaila ana MAGALLANES MD, CATHI Broussard Consulting Unavailable NAGI RED Primary Care Unavailable NAGI RED Consulting Unavailable COCO DO, CLAIRE N Consulting Unavailable COCO DO, CLAIRE N Attending Unavailable TEOFILO, NAGI A Primary Care Unavailable COCO DO, CLAIRE N Admitting Unavailable KAREN MEEKS Consulting Unavailable RUSTY HARDY, PAOLA Lawrence Consulting Unavailable TEOFILONAGI Consulting Unavailable TEOFILO, NAGI A Primary Care Unavailable AZARYAN, TAWANNA Attending Unavailable AZARYAN, TAWANNA Referring Unavailable TEOFILO, NAGI A Primary Care Unavailable CARRAU, ELY L Admitting Unavailable CARRAU, ELY L Referring Unavailable CARRAU, ELY L Attending Unavailable TEOFILO, NAGI A Primary Care Unavailable CARRAU, ELY L Attending Unavailable AZARYAN, TAWANNA Referring Unavailable TEOFILO, NAGI A Primary Care Unavailable KAREN LAND Referring Unavailable KAREN LAND Attending Unavailable TEOFILO, NAGI A Primary Care Unavailable CARRAU, ELY L Attending Unavailable AZARYAN, TAWANNA Referring Unavailable TEOFILO, NAGI A Primary Care Unavailable CARRAU, ELY L Referring Unavailable CARRAU, ELY L Attending Unavailable TEOFILO, NAGI A Primary Care Unavailable CARRAU, ELY L Attending Unavailable CARRAU, ELY L Referring Unavailable TEOFILO, NAGI A Primary Care Unavailable TEOFILO NAGI A Referring Unavailable AZARYAN, TAWANNA Attending Unavailable TEOFILO, NAGI A Primary Care Unavailable TEOFILO, NAGI A Referring Unavailable AZARYAN, TAWANNA Attending Unavailable TEOFILO, NAGI A Primary Care Unavailable NAGI RED A Referring Unavailable AKI, TAWANNA Attending Unavailable NAGI RED MD Consulting Unavailable IRAM ACOSTA Attending Unavailable IRAM ACOSTA Primary Care Unavailable IRAM ACOSTA Admitting Unavailable NAGI RED MD Referring Unavailable PROVIDER, UNKNOWN Consulting Unavailable RENARD ALMODOVAR Referring Unavailable TEOFILO, NAGI A Primary Care Unavailable TEOFILO, NAGI A Primary Care Unavailable PROVIDER, UNKNOWN Admitting Unavailable PROVIDER, UNKNOWN Attending Unavailable TEOFILO NAGI A Primary Care Unavailable PROVIDER, UNKNOWN Admitting Unavailable PROVIDER, UNKNOWN Attending Unavailable PROVIDER, UNKNOWN Admitting Unavailable PROVIDER, UNKNOWN Attending Unavailable TEOFILO, NAGI A Primary Care Unavailable CARLIE BROWNLEE Referring Unavailable TEOFILO, NAGI A Primary Care Unavailable RENARD ALMODOVAR Attending Unavailable TEOFILO, NAGI A Primary Care Unavailable TEOFILO, NAGI A Primary Care Unavailable TEOFILO, NAGI A Primary Care Unavailable RENARD ALMODOVAR Referring Unavailable TEOFILO, NAGI A Primary Care Unavailable TEOFILO, NAGI A Primary Care Unavailable CARLIE BROWNLEE Attending Unavailable TEOFILO, NAGI A Primary Care Unavailable CARLIE BROWNLEE Attending Unavailable TEOFILO, NAGI A Primary Care Unavailable JOSIE GRIFFIN Referring Unavailable TEOFILO, NAGI A Primary Care Unavailable JOSIE GRIFFIN Attending Unavailable TEOFILO, NAGI A Primary Care Unavailable TEOFILO, NAGI A Primary Care Unavailable CARLIE BROWNLEE Attending Unavailable TEOFILO, NAGI A Primary Care Unavailable TEOFILO, NAGI A Primary Care Unavailable CARLIE BROWNLEE Attending Unavailable TEOFILO, NAGI A Primary Care Unavailable CHRISTINE DEAN Referring Unavailable TEOFILOZENY STOCKTONREY A Attending Unavailable TEOFILO NAGI A Primary Care Unavailable Allergies Allergy Classification Reported Allergen(s) Allergy Type Date of Onset Reaction(s) Facility (6 sources) Amphetamine / Dextroamphetamine Drug Allergy 11-04-20 20 Palpitations [facility] (6 sources) Morphine Drug Allergy 11-04-20 20 Itching [facility] (6 sources) Wound Dressing Adhesive Propensity to adverse reactions to drug 11-04-20 20 Itching [facility] (20 sources) Adhesive agent; Translations: [ADHESIVE] Drug Allergy 02-13-20 10 Rash [facility] Work Phone: (20 sources) Amphetamine aspartate / Amphetamine Sulfate / Dextroamphetamine saccharate / Dextroamphetamine Sulfate; Translations: [DEXTROAMPHETAMINE-A MPHETAMINE] Drug Allergy 03-20-20 15 Intolerance [facility] Work Phone: (20 sources) Morphine; Translations: [MORPHINE SULFATE] Drug Allergy 11-12-20 08 Itching [facility] Work Phone: (20 sources) animals [Other] Propensity to adverse reactions 07-23-20 05 Unknown [facility] Work Phone: (20 sources) Environmental allergies [Other] Propensity to adverse reactions 06-20-20 08 Unknown [facility] Work Phone: (1 source) Amphetamine / Dextroamphetamine Drug Allergy [facility] (1 source) Morphine Drug Allergy [facility] (1 source) Amphetamine / Dextroamphetamine Drug Allergy [facility] (1 source) Morphine Drug Allergy [facility] (3 sources) OTHER; Translations: [OTHER] Propensity to adverse reactions (disorder) 06-20-20 [facility] Other [place] Rep[facility] Medications Current Medications Medication Drug Class(es) Dates Sig (Normalized) Sig (Original) benzonatate 100 mg oral capsule (1 source) Non-narcotic Antitussive Start: 10-04-2023 End: 10-14-2023 take 2 capsules by mouth three times daily as needed benzonatate (TESSALON PERLE) 100 mg capsule Indications: Bronchitis Take 2 capsules by mouth three times a day as needed for up to 10 days. 60 capsule 0 10/04/2023 10/14/2023 Active Completed/Discontinued Medications Medication Drug Class(es) Dates Sig (Normalized) Sig (Original) [id number] 200 actuat albuterol 0.09 mg/actuat metered dose inhaler (20 sources) beta2-Adrenergic Agonist Start: 04-11-2019 End: 07-06-2022 take 2 puff(s) by inhalation every six hours as needed for wheezing albuterol HFA (VENTOLIN HFA) 90 mcg/actuation inhaler Inhale 2 Puffs as instructed every 6 hours as needed for wheezing/shortnes s of breath. 1 Inhaler 2 07/06/2022 Active Problems Active Problems Problem Classification Problem Date Documented Da te Episodic/Chronic Abdominal pain (8 sources) Pelvic and perineal pain; Translations: [Unspecified abdominal pain] Onset: 12-22-2021 Episodic Anxiety disorders (20 sources) Generalized anxiety disorder; Translations: [Generalized anxiety disorder] Onset: 03-31-2012 11-17-2021 Chronic Asthma (20 sources) Exercise-induced asthma; Translations: [Exercise induced bronchospasm] Onset: 03-22-2014 03-22-2014 Chronic Cancer of thyroid (20 sources) Malignant tumor of thyroid gland; Translations: [Malignant neoplasm of thyroid gland] Onset: 07-21-2019 Chronic Cardiac and circulatory congenital anomalies (20 sources) Congenital heart disease; Translations: [Congenital malformation of heart, unspecified] Onset: 03-31-2012 11-17-2021 Chronic Chronic obstructive pulmonary disease and bronchiectasis (1 source) Bronchitis; Translations: [Bronchitis, not specified as acute or chronic] 10-04-2023 Episodic Complications of surgical procedures or medical care (20 sources) Postoperative hypothyroidism; Translations: [Postprocedural hypothyroidism] Onset: 08-25-2019 06-06-2021 Chronic Contraceptive and procreative management (3 sources) Encounter for sterilization; Translations: [ENCOUNTER FOR STERILIZATION] Onset: 10-23-2022 Episodic Essential hypertension (20 sources) Essential hypertension; Translations: [Essential (primary) hypertension] Onset: 07-06-2022 Chronic Gastrointestinal hemorrhage (1 source) Blood-tinged feces; Translations: [Melena] Episodic Headache; including migraine (20 sources) Migraine without aura, not refractory ; Translations: [Migraine without aura, not intractable, without status migrainosus] Onset: 05-20-2017 05-20-2017 Chronic Joint disorders and dislocations; trauma-related (20 sources) Joint derangement; Translations: [Other internal derangements of unspecified knee] Onset: 08-20-2008 03-22-2014 Chronic Malaise and fatigue (20 sources) Chronic fatigue syndrome; Translations: [Chronic fatigue, unspecified] Onset: 03-19-2015 05-09-2015 Chronic Menstrual disorders (20 sources) Irregular periods; Translations: [Irregular menstruation, unspecified] Onset: 04-11-2007 03-22-2014 Chronic Mood disorders (20 sources) Bipolar I disorder; Translations: [Bipolar disorder, unspecified] Onset: 02-14-2018 03-22-2018 Chronic Nausea and vomiting (1 source) Nausea and vomiting; Translations: [Nausea with vomiting, unspecified] Episodic Nutritional deficiencies (20 sources) Vitamin D deficiency; Translations: [Vitamin D deficiency, unspecified] Onset: 03-22-2014 05-07-2014 Chronic Other female genital disorders (1 source) Other noninflammatory disorders of ovary, fallopian tube and broad ligament; Translations: [OTH NONINFL D/O OVARY TUBEANDBRD LIG] Onset: 10-30-2022 Episodic Other gastrointestinal disorders (1 source) Abdominal bloating; Translations: [Abdominal distension (gaseous)] Episodic Other lower respiratory disease (1 source) Lower respiratory tract infection; Translations: [Unspecified acute lower respiratory infection] 10-04-2023 Episodic Other nutritional; endocrine; and metabolic disorders (20 sources) Intolerance to lactose; Translations: [Lactose intolerance, unspecified] Onset: 03-31-2012 11-17-2021 Chronic Other nutritional; endocrine; and metabolic disorders (16 sources) Obese class I; Translations: [Obesity, unspecified] Onset: 09-16-2022 09-16-2022 Chronic Other nutritional; endocrine; and metabolic disorders (1 source) Weight gain; Translations: [Abnormal weight gain] Episodic Other upper respiratory infections (1 source) Bacterial sinusitis; Translations: [Chronic sinusitis, unspecified] Chronic Other upper respiratory infections (1 source) Sore throat symptom; Translations: [Acute pharyngitis, unspecified] 10-04-2023 Episodic Ovarian cyst (2 sources) Unspecified ovarian cyst, right side; Translations: [Follicular cyst of left ovary] Onset: 09-14-2022 Episodic Residual codes; unclassified (1 source) Pain, unspecified; Translations: [Pain] Onset: 11-04-2023 Episodic Spondylosis; intervertebral disc disorders; other back problems (20 sources) Degeneration of lumbar intervertebral disc; Translations: [Other intervertebral disc degeneration, lumbar region] Onset: 07-27-2012 03-22-2014 Chronic Spondylosis; intervertebral disc disorders; other back problems (20 sources) Low back pain; Translations: [Lumbago] Onset: 07-27-2012 11-17-2021 Episodic Thyroid disorders (20 sources) Multinodular goiter; Translations: [Nontoxic multinodular goiter] Onset: 06-04-2014 11-17-2021 Chronic Unclassified (2 sources) COUGH, UNSPECIFIED; Translations: [COUGH, UNSPECIFIED] Onset: 11-19-2021 Viral infection (5 sources) Disease caused by 2019-nCoV; Translations: [COVID-19] Onset: 11-19-2021 03-25-2022 Episodic Viral infection (1 source) COVID-19; Translations: [COVID-19] Onset: 11-19-2021 Past or Other Problems Problem Classification Problem Date Documented Date Episodic/Chronic Calculus of urinary tract (4 sources) Kidney stone; Translations: [Calculus of kidney] Onset: 05-01-2021 03-25-2022 Episodic Coma; stupor; and brain damage (20 sources) Daytime somnolence; Translations: [Somnolence] Onset: 01-01-2015 05-09-2015 Episodic Complications of surgical procedures or medical care (5 sources) Complication of procedure; Translations: [Complication of surgical and medical care, unspecified, subsequent encounter] Onset: 04-28-2023 Episodic Diseases of mouth; excluding dental (7 sources) Sialoadenitis of the submandibular gland; Translations: [Sialoadenitis, unspecified] Onset: 06-16-2022 Episodic Mood disorders (5 sources) Mood disorders Onset: 03-18-2022 Resolved: 09-16-2022 03-18-2022 Other disorders of stomach and duodenum (15 sources) Persistent vomiting; Translations: [Cyclical vomiting syndrome unrelated to migraine] Onset: 03-03-2023 Episodic Other lower respiratory disease (4 sources) Cough; Translations: [Cough, unspecified] Onset: 11-15-2021 03-25-2022 Episodic Other screening for suspected conditions (not mental disorders or infectious disease) (18 sources) Patient encounter status; Translations: [Encounter for screening for lipoid disorders] Onset: 03-03-2023 Episodic Unclassified (1 source) COUGH, UNSPECIFIED; Translations: [COUGH, UNSPECIFIED] Onset: 11-15-2021 Results Test Name Value Interpretation Reference Range Facil ity Vital Signs Date Time Vital Sign Value Performing Clinician Facility 10-04-2023 08:56-0500 Body temperature 98.1 [degF] La Paiz APRN.PUBLIC RECORDS OFFICER Work Phone: [facility] 10-04-2023 08:56-0500 Body weight 88 kg La Paiz APRN.PUBLIC RECORDS OFFICER Work Phone: [facility] 10-04-2023 08:56-0500 Diastolic blood pressure 64 mm[Hg] La Paiz APRN.PUBLIC RECORDS OFFICER Work Phone: [facility] 10-04-2023 08:56-0500 Heart rate 86 /min La Paiz APRN.PUBLIC RECORDS OFFICER Work Phone: [facility] 10-04-2023 08:56-0500 Respiratory rate 20 /min La Paiz APRN.PUBLIC RECORDS OFFICER Work Phone: [facility] 10-04-2023 08:56-0500 SaO2% (BldA) [Mass fraction] 98 % La Romero-Sagar STAFF DEVELOPMENT MANAGER.PUBLIC RECORDS OFFICER Work Phone: [facility] 10-04-2023 08:56-0500 Systolic blood pressure 102 mm[Hg] La Echevarrialer-Wood STAFF DEVELOPMENT MANAGER.PUBLIC RECORDS OFFICER Work Phone: [facility] 06-08-2023 10:25-0400 Body weight 91.35 kg Carlie Brownlee STAFF DEVELOPMENT MANAGER.PUBLIC RECORDS OFFICER Work Phone: [facility] 06-08-2023 10:25-0400 Heart rate 113 /min Carlie Brownlee STAFF DEVELOPMENT MANAGER.PUBLIC RECORDS OFFICER Work Phone: [facility] 06-08-2023 10:25-0400 SaO2% (BldA) [Mass fraction] 98 % Carlie Brownlee STAFF DEVELOPMENT MANAGER.PUBLIC RECORDS OFFICER Work Phone: [facility] 04-27-2023 10:05-0400 Body weight 95.71 kg Renard Almodovar STAFF DEVELOPMENT MANAGER.PUBLIC RECORDS OFFICER Work Phone: [facility] 04-27-2023 10:05-0400 Diastolic blood pressure 86 mm[Hg] Renard Almodovar STAFF DEVELOPMENT MANAGER.PUBLIC RECORDS OFFICER Work Phone: [facility] 04-27-2023 10:05-0400 Heart rate 100 /min Renard Almodovar STAFF DEVELOPMENT MANAGER.PUBLIC RECORDS OFFICER Work Phone: [facility] 04-27-2023 10:05-0400 Respiratory rate 16 /min Renard Almodovar STAFF DEVELOPMENT MANAGER.PUBLIC RECORDS OFFICER Work Phone: [facility] 04-27-2023 10:05-0400 Systolic blood pressure 122 mm[Hg] Renard Almodovar STAFF DEVELOPMENT MANAGER.PUBLIC RECORDS OFFICER Work Phone: [facility] 03-03-2023 11:04-0400 Diastolic blood pressure 90 mm[Hg] Nagi Red MD Work Phone: [facility] 03-03-2023 11:04-0400 Systolic blood pressure 116 mm[Hg] Nagi Red MD Work Phone: [facility] 03-03-2023 10:20-0400 Body weight 89.36 kg Nagi Red MD Work Phone: [facility] 03-03-2023 10:20-0400 Heart rate 86 /min Nagi Red MD Work Phone: [facility] 02-12-2023 14:13-0400 Diastolic blood pressure 98 mm[Hg] Flaco Simmons MD Work Phone: [facility] 02-12-2023 14:13-0400 Heart rate 95 /min Flaco Simmons MD Work Phone: [facility] 02-12-2023 14:13-0400 Respiratory rate 16 /min Flaco Simmons MD Work Phone: [facility] 02-12-2023 14:13-0400 SaO2% (BldA) [Mass fraction] 98 % Flaco Simmons MD Work Phone: [facility] 02-12-2023 14:13-0400 Systolic blood pressure 144 mm[Hg] Flaco Simmons MD Work Phone: [facility] 02-12-2023 13:56-0400 Body temperature 97 [degF] Flaco Simmons MD Work Phone: [facility] 02-12-2023 12:59-0400 Body height 165.1 cm Flaco Simmons MD Work Phone: [facility] 02-12-2023 12:59-0400 Body weight 87.54 kg Flaco Simmons MD Work Phone: [facility] 01-22-2023 09:18-0500 Body temperature 97.81 [degF] Nagi Ku APRN.PUBLIC RECORDS OFFICER Work Phone: [facility] 01-22-2023 09:18-0500 Body weight 87.54 kg Nagi Ku APRN.PUBLIC RECORDS OFFICER Work Phone: [facility] 01-22-2023 09:18-0500 Diastolic blood pressure 102 mm[Hg] Nagi Ku APRN.PUBLIC RECORDS OFFICER Work Phone: [facility] 01-22-2023 09:18-0500 Heart rate 94 /min Nagi Ku STAFF DEVELOPMENT MANAGER.PUBLIC RECORDS OFFICER Work Phone: [facility] 01-22-2023 09:18-0500 Respiratory rate 18 /min Nagi Ku STAFF DEVELOPMENT MANAGER.PUBLIC RECORDS OFFICER Work Phone: [facility] 01-22-2023 09:18-0500 SaO2% (BldA) [Mass fraction] 99 % Nagi Ku STAFF DEVELOPMENT MANAGER.PUBLIC RECORDS OFFICER Work Phone: [facility] 01-22-2023 09:18-0500 Systolic blood pressure 156 mm[Hg] Nagi Ku STAFF DEVELOPMENT MANAGER.PUBLIC RECORDS OFFICER Work Phone: [facility] 09-16-2022 10:48-0400 Body height 165.1 cm Tawanna Rivera MD Work Phone: [facility] 09-16-2022 10:48-0400 Body mass index (BMI) [Ratio] 30.92 kg/m2 Tawanna Rivera MD Work Phone: [facility] 09-16-2022 10:48-0400 Body temperature 98.29 [degF] Tawanna Rivera MD Work Phone: [facility] 09-16-2022 10:48-0400 Body weight 84.28 kg Tawanna Rivera MD Work Phone: [facility] 09-16-2022 10:48-0400 Diastolic blood pressure 86 mm[Hg] Tawanna Rivera MD Work Phone: [facility] 09-16-2022 10:48-0400 Heart rate 88 /min Tawanna Rivera MD Work Phone: [facility] 09-16-2022 10:48-0400 Respiratory rate 16 /min Tawanna Rivera MD Work Phone: [facility] 09-16-2022 10:48-0400 SaO2% (BldA) [Mass fraction] 99 % Tawanna Rivera MD Work Phone: [facility] 09-16-2022 10:48-0400 Systolic blood pressure 121 mm[Hg] Tawanna Rivera MD Work Phone: [facility] 07-06-2022 10:00-0400 Body temperature 98.71 [degF] Christine Dean PA-C Work Phone: [facility] 07-06-2022 10:00-0400 Body weight 84.37 kg Christine Dean PA-C Work Phone: [facility] 07-06-2022 10:00-0400 Diastolic blood pressure 112 mm[Hg] Christine Dean PA-C Work Phone: [facility] 07-06-2022 10:00-0400 Heart rate 80 /min Christine Dean PA-C Work Phone: [facility] 07-06-2022 10:00-0400 Respiratory rate 16 /min Christine Dean PA-C Work Phone: [facility] 07-06-2022 10:00-0400 Systolic blood pressure 142 mm[Hg] Christine Dean PA-C Work Phone: [facility] 06-16-2022 08:40-0400 Body mass index (BMI) [Ratio] 30.99 kg/m2 Ely Tapia MD Work Phone: [facility] 06-16-2022 08:40-0400 Body temperature 97.39 [degF] Ely Tapia MD Work Phone: [facility] 06-16-2022 08:40-0400 Body weight 84.46 kg Ely Tapia MD Work Phone: [facility] 06-16-2022 08:40-0400 Diastolic blood pressure 102 mm[Hg] Ely Tapia MD Work Phone: [facility] 06-16-2022 08:40-0400 Heart rate 81 /min Ely Tapia MD Work Phone: [facility] 06-16-2022 08:40-0400 Respiratory rate 14 /min Ely Tapia MD Work Phone: [facility] 06-16-2022 08:40-0400 SaO2% (BldA) [Mass fraction] 96 % Ely Tapia MD Work Phone: [facility] 06-16-2022 08:40-0400 Systolic blood pressure 141 mm[Hg] Ely Tapia MD Work Phone: [facility] 04-17-2022 10:31-0400 Body height 165.1 cm Karen Land APRN-PUBLIC RECORDS OFFICER Work Phone: [facility] 04-17-2022 10:31-0400 Body mass index (BMI) [Ratio] 26.63 kg/m2 Karen Land APRN-PUBLIC RECORDS OFFICER Work Phone: [facility] 04-17-2022 10:31-0400 Body weight 72.58 kg Karen Land APRN-PUBLIC RECORDS OFFICER Work Phone: [facility] 03-26-2022 08:29-0400 Body height 164.5 cm Ely Tapia MD Work Phone: [facility] 03-26-2022 08:29-0400 Body mass index (BMI) [Ratio] 29.42 kg/m2 Ely Tapia MD Work Phone: [facility] 03-26-2022 08:29-0400 Body temperature 99.19 [degF] Ely Tapia MD Work Phone: [facility] 03-26-2022 08:29-0400 Body weight 79.61 kg Ely Tapia MD Work Phone: [facility] 03-26-2022 08:29-0400 Diastolic blood pressure 88 mm[Hg] Ely Tapia MD Work Phone: [facility] 03-26-2022 08:29-0400 Heart rate 82 /min Ely Tapia MD Work Phone: [facility] 03-26-2022 08:29-0400 Respiratory rate 16 /min Ely Tapia MD Work Phone: [facility] 03-26-2022 08:29-0400 SaO2% (BldA) [Mass fraction] 97 % Ely Tapia MD Work Phone: [facility] 03-26-2022 08:29-0400 Systolic blood pressure 131 mm[Hg] Ely Tapia MD Work Phone: [facility] 03-18-2022 11:40-0400 Body height 165.1 cm Tawanna Rivera MD Work Phone: [facility] 03-18-2022 11:40-0400 Body mass index (BMI) [Ratio] 29.12 kg/m2 Tawanna Rivera MD Work Phone: [facility] 03-18-2022 11:40-0400 Body temperature 98.1 [degF] Tawanna Rivera MD Work Phone: [facility] 03-18-2022 11:40-0400 Body weight 79.38 kg Tawanna Rivera MD Work Phone: [facility] 03-18-2022 11:40-0400 Diastolic blood pressure 78 mm[Hg] Tawanna Rivera MD Work Phone: [facility] 03-18-2022 11:40-0400 Heart rate 92 /min Tawanna Rivera MD Work Phone: [facility] 03-18-2022 11:40-0400 Respiratory rate 16 /min Tawanna Rivera MD Work Phone: [facility] 03-18-2022 11:40-0400 SaO2% (BldA) [Mass fraction] 99 % Tawanna Rivera MD Work Phone: [facility] 03-18-2022 11:40-0400 Systolic blood pressure 157 mm[Hg] Tawanna Rivera MD Work Phone: [facility] Encounters Encounter Date Encounter Type Care Provider Facility Start: 12-16-2023 End: 12-16-2023 ambulatory CARLIE BROWNLEE Facility:[facility] Start: 11-23-2023 End: 11-23-2023 ambulatory NAGI RED Facility:[facility] Start: 11-12-2023 End: 11-12-2023 ambulatory UNKNOWN PROVIDER Facility:[facility] Start: 11-04-2023 End: 11-04-2023 ambulatory JOSIE GRIFFIN Facility:[facility] Start: 11-04-2023 End: 11-04-2023 Patient encounter procedure Josie Griffin Work Phone: Podiatry Procedures Date Procedure Procedure Detail Performing Clinician Start: 10-04-2023 STREP A MOLECULAR (POC) [facility] Provider Start: 04-28-2023 Ct angiography neck w/contrast/noncontrast Renard Almodovar APRN.CNP Work Phone: Start: 03-28-2023 Urinalysis NAGI LUCIANO Plan of Treatment Date Care Activity Detail Author Start: 03-19-2025 Tetanus vaccination TETANUS [facility] Start: 03-19-2025 Urine microalbumin profile [facility] Start: 10-04-2024 BP Controlled (<130/80) BP Con trolled (<130/80) [facility] Start: 04-27-2024 ANNUAL PCP TEAM CONCRETE ANALYST CARLY DISEASE VISIT ANNUAL PCP TEAM CHRONIC DISEASE VISIT [facility] Start: 03-03-2024 ANNUAL PCP TEAM CONCRETE ANALYST CARLY DISEASE VISIT ANNUAL PCP TEAM CHRONIC DISEASE VISIT [facility] Start: 09-16-2023 Thyroid stimulating hormone measurement TSH [facility] Start: 09-01-2023 ANNUAL PCP TEAM CONCRETE ANALYST CARLY DISEASE VISIT ANNUAL PCP TEAM CHRONIC DISEASE VISIT [facility] Start: 08-20-2023 End: 10-20-2023 25-hydroxyvitamin D3 [Mass/volume] in Serum or Plasma VITAMIN D 25 HYDROXY Lab Routine Vitamin D deficiency Expected: 08/20/2023, Expires: 10/20/2023 [facility] Work Phone: Immunizations Immunization Date Immunization Notes Care Provider Fa rafia 10-19-2017 influenza virus vaccine, unspecified formulation Carlie Brownlee APRN.CNP Work Phone: [facility] 09-29-2016 influenza, injectabl e, quadrivalent, contains preservative Capsule [place] Work Phone: [facility] Work Phone: 09-29-2016 influenza virus vaccine, unspecified formulation Tawanna Rivera MD Work Phone: [facility] 03-19-2015 tetanus toxoid, redu jennifer diphtheria toxoid, and acellular pertussis vaccine, adsorbed [facility] [place] Work Phone: [facility] Work Phone: 08-24-2012 influenza virus vaccine, unspecified formulation [facility] [place] Work Phone: [facility] 08-24-2009 influenza virus vaccine, unspecified formulation [facility] [place] Work Phone: [facility] Work Phone: 10-05-2008 influenza virus vaccine, unspecified formulation [facility] [place] Work Phone: [facility] Work Phone: 06-08-2008 human papilloma viru s vaccine, quadrivalent [facility] [place] Work Phone: [facility] Work Phone: 04-24-2008 hepatitis A vaccine, unspecified formulation [facility] [place] Work Phone: [facility] Work Phone: 02-10-2008 human papilloma viru s vaccine, quadrivalent [facility] [place] Work Phone: [facility] Work Phone: 12-07-2007 human papilloma viru s vaccine, quadrivalent [facility] [place] Work Phone: [facility] Work Phone: 09-20-2007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 JORGE LUIS Hardwick are available to assist with transportation and housing issues related to medical appointments. The social media strategist also provides counseling and information regarding Advance Directives, End of Life issues, Social Security Disability, and referrals to support groups, and other community agencies. Please let Poppy or Dr. Shay know if you need these services. You may contact Deepali at [phone] or Beata [phone]. [place] [facility] This is for patients who live in [facility] with a cancer diagnosis. [facility] can provide rides to appointments, nutritional supplements and other services. It requires that your register for services by speaking with our head and neck social workers. If you are outside of [facility] the social media strategist can assist you with what is available in your county. Pastoral Care-Arborist Representative Fani Yee-is able to assist your with your spiritual needs. If you wish to see the debt collector please let your oncology team know to arrange this. Financial Services- Leon Rees and Sabine Klein are our financial counselor who can assist your at your appointments or call them at [phone]. Forming Process Worker-Currently an order must be placed by Dr. Tapia to have to see the Forming Process Worker, Sandy Lopez. If you are already seeing Sandy her direct phone number is [phone]. Pain Management Team is available if Dr. Tapia feels that you need this a referral is made and your pain care is transferred to this group. Integrative Medicine therapy-these are complementary therapies used in addition to your cancer treatment to assist with anxiety, pain, nausea, poor sleep, and exhaustion. If you wish this additional therapy please contact [email or web address] and the [email or web address] to set up an appointment. You may also request this in the same way if you are inpatient or ask your nurse. THERE IS NO COST FOR THIS SERVICE. Fertility Presevation and Reproductive Health-Faraz Quintero offers fertility preservation. This requires a referral from your doctor. If you are interested in sperm banking, egg freezing or other options please let your doctor know before you have chemotherapy or radiation. For information options please call [phone]. [facility]- It is conveniently located on the [facility] campus on the conference level (CL) of the [facility], next door to [facility] and near [facility]. To learn more about [facility], you can visit it on weekdays from 8 a.m. - 9 p.m. and on weekends from 9 a.m. - 6 p.m., stop by our open house event April 26, call [phone] or visit. [facility]. Items: Family Medical Leave paperwork is available through your human resources department. Please call human resources and have them fax paperwork to DEANDRE Montero @ [phone]. [employer] is a communication tool used through the Internet to communicate NON-urgent medical information with your [facility] doctors. You may ask questions, receive results and get notification of appointments. The results will be released to the [employer] by your doctors and will only be results that do not need additional explanation. If a discussion of the result is important your doctor or nurse will call you. If you wish to sign up this must be done in person. Our receptionist staff can assist you to get a password that can be changed when after you log on the first time. IMPORTANT REMINDER: This portal is only for NON-urgent information. If you have urgent information about your condition please call DEANDRE Mcwilliams at [phone]. THERE IS A NEW [employer]X WU FOR SMART PHONES. USE YOUR WU STORE AND SEARCH [email or web address], download the wu and follow the prompts to set up the [facility] format. Through this WU, you will be able to look at results, send messages and much more. Additionally, you are able to send pictures to providers. If you need to be in a patient in the hospital or having surgery: IF YOUR SURGERY DISCUSSED WITH DR. TAPIA WILL REQUIRE YOU TO HAVE A TRACHEOSTOMY OR TOTAL LARYNGECTOMY (YOUR VOICEBOX REMOVED) PLEASE BRING YOUR PREFERRED WRITING METHOD WITH YOU unless prefer a pen and paper or others like a dry erase board these will be provided. You will likely be unable to talk right after surgery. If you are on diabetic pill form treatment, in the hospital you will have your blood sugar checked regularly and likely will be on insulin instead of the pills. documented in this encounter [facility] 03-26-2022 History of Presen t illness Narrative Chief Complaint: Chief Complaint Patient presents with New Patient HPI: Greta Andres is a 32 y.o. female non-smoker who presents 03/26/22 to the [facility] for evaluation of sialadenitis of the right parotid. Patient has a history of papillary thyroid carcinoma (TAYLOR initial stratification intermediate risk). She is s/p total thyroidectomy and central neck dissection on 07/31/[address] Martinez at [facility]. Pathology showed mutifocal PTC with the largest foci measuring 1.2 cm in the right lobe/isthmus. Additional microscopic foci bilaterally. + rare tall cell featurers, +LVI, no ETE, 2/3 nodes + with largest foci 0.9 cm. I-123 WBS done on 05/01/2020 showed intense uptake in the right thyroid bed, corresponding to residual thyroid tissue or tumor. Patient then underwent repeat central neck dissection by Dr. Burgess on 09/10/2020. Pathology showed 2/8 nodes positive, with largest foci measuring 0.6 cm with no MAKI. Serial ultrasounds concerning for central neck recurrence, so she underwent MARTIN therapy on 08/13/2021 using 150 mCi of iodine-131 sodium iodide. She follows with Dr. Rivera in Endocrinology. Since MARTIN, has endorsed right parotid intermittent swelling and tenderness associated with food intake. Referred to our clinic for further evaluation and treatment. Patient endorses right intermittent facial swelling and pain that occurs with eating. Has been happening since MARTIN last July. Patient denies dysphagia, odynophagia, otalgia, headaches, dyspnea, cough, vision or hearing changes. Nursing documentation has been reviewed. Past Medical History Past Medical History: Diagnosis Date Asthma History of cancer papillary thyroid cancer 2018 Past Surgical History Past Surgical History: Procedure Laterality Date EXAMINATION UPPER GI BY ENDOSCOPY SIMPLE 01/2022 COLONOSCOPY DIAGNOSTIC 01/2022 THYROID SURGERY 08/2020 THYROIDECTOMY 2019 total CYSTECTOMY 2014 sinus cyst REMOVAL BILIARY DUCT/GALLBLADDER CALCULI/DEBRIS PERCUTANEOUS W/ IMAGE 2013 KNEE ARTHROSCOPY 2007 a[facility]iles Social History Social History Socioeconomic History Marital status: Single Spouse name: Not on file Number of children: Not on file Years of education: Not on file Highest education level: Not on file Occupational History Not on file Tobacco Use Smoking status: Never Smoker Smokeless tobacco: Never Used Vaping Use Vaping Use: Never used Substance and Sexual Activity Alcohol use: Not Currently Comment: occassional Drug use: Not on file Sexual activity: Not on file Other Topics Concern Not on file Social History Narrative Not on file Social Determinants of Health Financial Resource Strain: Not on file Food Insecurity: Not on file Transportation Needs: Not on file Physical Activity: Not on file Stress: Not on file Social Connections: Not on file Intimate Partner Violence: Not on file Housing Stability: Not on file Family History Family History Problem Relation Age of Onset Diabetes Mother Other - Specify Maternal Uncle leukemia Medications Current Outpatient Medications Medication Sig Dispense Refill divalproex 500 MG tablet ER Take 1,500 mg by mouth. Etonogestrel 68 MG SC implant Inject 68 mg under the skin. Larissia 0.1-20 MG-MCG tablet Melatonin 10 MG tablet Take by mouth. rizatriptan 10 MG tablet Take 10 mg by mouth as needed. sucralfate 1 GM/10ML oral suspension TAKE 10 ML BY MOUTH FOUR TIMES A DAY 1 HOUR BEFORE MEALS AND AT BEDTIME ON EMPTY STOMACH Synthroid 200 MCG tablet TAKE 1 TABLET BY MOUTH EVERY DAY 90 tablet 1 Synthroid 25 MCG tablet Take 1 tablet two days a week with your 200 mcg 30 tablet 3 trazodone 150 MG tablet Take 300 mg by mouth. ziprasidone 40 MG capsule Take 40 mg by mouth. ALPRAZolam 0.25 MG tablet Take 0.25 mg by mouth 3 times daily as needed. (Patient not taking: Reported on 03/26/2022) traMADol 50 MG tablet TAKE 1 TABLET BY MOUTH EVERY DAY NEEDED (Patient not taking: Reported on 03/26/2022) No current facility-administered medications for this visit. Allergies: Adderall [amphetamine-dextroamphetamine], Morphine, and Wound dressing adhesive Immunizations Immunization History Administered Date(s) Administered DT Vaccine 12/26/2002 HPV Vaccine, Quadrivalent 12/07/2007, 02/10/2008, 06/08/2008 Hep A Vaccine, Unspecified 04/24/2008 Hib Vaccine, HbOC 1991, 1991 Influenza Vaccine 0.5ml 09/20/2006, 09/20/2007, 10/05/2008, 08/24/2009, 08/24/2012 Meningococcal Vac MCV4, Unspecified 07/23/2005 OPV 1991, 1991, 02/18/1998 Tdap Vaccine 03/19/2015 influenza, injectable, quadrivalent 09/29/2016 Review of Systems Constitutional: Negative for fever, weight loss and weight gain. HENT: Negative for ear pain, sore throat and hoarseness. Negative for difficulty swallowing. +Intermittent right facial swelling. Cardiovascular: Negative for chest pain and dyspnea on exertion (Can climb up 2 floors). Respiratory: Is not experiencing shortness of breath. Gastrointestinal: Negative for nausea and vomiting. Neurological: Negative for headaches. Psychiatric: The patient is not nervous/anxious. Musculoskeletal: Denies muscle pain/weakness Heme/Lymph: Negative for lymph nodes, easy bruising Physical Exam Vital Signs: BP 131/88 Pulse 82 Temp 99.2 F (37.3 C) (Oral) Resp 16 Ht 1.645 m (5' 4.76 ) Wt 79.6 kg (175 lb 8 oz) SpO2 97% BMI 29.42 kg/m Smoking Status Never Smoker General: Well-developed, well-nourished. No distress. Communication and Voice: Clear pitch and clarity Respiratory Respiratory effort: Equal inspiration and expiration without stridor Neuro: Patient oriented to person, place, and time; Appropriate mood and affect; Gait is intact with no imbalance; Cranial nerves II-XII are intact Head and Face Inspection: Normocephalic and atraumatic without mass or lesion Palpation: Facial skeleton intact without bony stepoffs Facial Strength: Facial motility symmetric and full bilaterally Eyes: PERRLA. No nystagmus with normal extraocular motion bilaterally ENT Pinna: External ear intact and fully developed External canal: Canal is patent with intact skin Tympanic Membrane: Clear and mobile External nose: No scar or anatomic deformity Internal Nose: Septum intact and midline. No edema, polyp, or rhinorrhea. TMJ: No pain to palpation with full mobility Salivary Glands: No mass or tenderness Lips: No lesion. Oral cavity: No mass or lesion. Oropharynx: No mass or lesion. Tonsillar fossa symmetric. Base of tongue soft without mass or induration. Neck Trachea: Midline trachea. Thyroid: No mass or nodularity. Lymphatics: No lymphadenopathy. Data: US NECK, 03/18/22: ULTRASOUND NOTE Images were taken through the central and lateral neck bilaterally. RIGHT CENTRAL: there are two hypoechoic lesions at the right and anterior aspect of the thyroidectomy measuring 0.4 x 0.2 x 0.6 cm and 0.4 x 0.1 x 0.4 cm. RIGHT LATERAL: Level [address] measuring 1.1 x 0.6 x 1.4 cm, likely reactive LEFT CENTRAL: small isoechoic lesion measuring 0.7 x 0.2 cm LEFT LATERAL: No suspicious nodes Attestation: I interviewed and examined Greta Andres, referred to me due to parotid swelling, with Karen ESPINOSA ([employer]HNS MACHINE MAINTENANCE). I discussed the differential diagnosis and plan and reviewed all her notes. I agree with the documentation. I also reviewed the medication list, and social,family, medical, surgical and allergy history and current complaints as well as examined the patient. Please see note for details regarding these. I have personally reviewed the imaging, labs, and pathology if pertinent to this issue.. I personally performed or was present throughout the entire duration of the procedures. Pertinent examinations findings have been highlighted in the note. IMPRESSION: 32 y.o. female with a history of papillary thyroid carcinoma s/p multiple surgeries and MARTIN in 07/2021 presenting to clinic with right parotid sialadenitis. PLAN: MR sialogram I discussed the above findings at length and answered questions and concerns. Chief Complaint: Chief Complaint Patient presents with New Patient HPI: Greta Andres is a 32 y.o. female non-smoker who presents 03/26/22 to the [facility] for evaluation of sialadenitis of the right parotid. Patient has a history of papillary thyroid carcinoma (TAYLRO initial stratification intermediate risk). She is s/p total thyroidectomy and central neck dissection on 07/31/[address] Martinez at [facility]. Pathology showed mutifocal PTC with the largest foci measuring 1.2 cm in the right lobe/isthmus. Additional microscopic foci bilaterally. + rare tall cell featurers, +LVI, no ETE, 2/3 nodes + with largest foci 0.9 cm. I-123 WBS done on 05/01/2020 showed intense uptake in the right thyroid bed, corresponding to residual thyroid tissue or tumor. Patient then underwent repeat central neck dissection by Dr. Burgess on 09/10/2020. Pathology showed 2/8 nodes positive, with largest foci measuring 0.6 cm with no MAKI. Serial ultrasounds concerning for central neck recurrence, so she underwent MARTIN therapy on 08/13/2021 using 150 mCi of iodine-131 sodium iodide. She follows with Dr. Rivera in Endocrinology. Since MARTIN, has endorsed right parotid intermittent swelling and tenderness associated with food intake. Referred to our clinic for further evaluation and treatment. Patient endorses right intermittent facial swelling and pain that occurs with eating. Has been happening since MARTIN last July. Patient denies dysphagia, odynophagia, otalgia, headaches, dyspnea, cough, vision or hearing changes. Nursing documentation has been reviewed. Past Medical History Past Medical History: Diagnosis Date Asthma History of cancer papillary thyroid cancer 2019 Past Surgical History Past Surgical History: Procedure Laterality Date EXAMINATION UPPER GI BY ENDOSCOPY SIMPLE 01/2022 COLONOSCOPY DIAGNOSTIC 01/2022 THYROID SURGERY 08/2020 THYROIDECTOMY 2019 total CYSTECTOMY 2014 sinus cyst REMOVAL BILIARY DUCT/GALLBLADDER CALCULI/DEBRIS PERCUTANEOUS W/ IMAGE 2013 KNEE ARTHROSCOPY 2007 [facility] Social History Social History Socioeconomic History Marital status: Single Spouse name: Not on file Number of children: Not on file Years of education: Not on file Highest education level: Not on file Occupational History Not on file Tobacco Use Smoking status: Never Smoker Smokeless tobacco: Never Used Vaping Use Vaping Use: Never used Substance and Sexual Activity Alcohol use: Not Currently Comment: occassional Drug use: Not on file Sexual activity: Not on file Other Topics Concern Not on file Social History Narrative Not on file Social Determinants of Health Financial Resource Strain: Not on file Food Insecurity: Not on file Transportation Needs: Not on file Physical Activity: Not on file Stress: Not on file Social Connections: Not on file Intimate Partner Violence: Not on file Housing Stability: Not on file Family History Family History Problem Relation Age of Onset Diabetes Mother Other - Specify Maternal Uncle leukemia Medications Current Outpatient Medications Medication Sig Dispense Refill divalproex 500 MG tablet ER Take 1,500 mg by mouth. Etonogestrel 68 MG SC implant Inject 68 mg under the skin. Larissia 0.1-20 MG-MCG tablet Melatonin 10 MG tablet Take by mouth. rizatriptan 10 MG tablet Take 10 mg by mouth as needed. sucralfate 1 GM/10ML oral suspension TAKE 10 ML BY MOUTH FOUR TIMES A DAY 1 HOUR BEFORE MEALS AND AT BEDTIME ON EMPTY STOMACH Synthroid 200 MCG tablet TAKE 1 TABLET BY MOUTH EVERY DAY 90 tablet 1 Synthroid 25 MCG tablet Take 1 tablet two days a week with your 200 mcg 30 tablet 3 trazodone 150 MG tablet Take 300 mg by mouth. ziprasidone 40 MG capsule Take 40 mg by mouth. ALPRAZolam 0.25 MG tablet Take 0.25 mg by mouth 3 times daily as needed. (Patient not taking: Reported on 03/26/2022) traMADol 50 MG tablet TAKE 1 TABLET BY MOUTH EVERY DAY NEEDED (Patient not taking: Reported on 03/26/2022) No current facility-administered medications for this visit. Allergies: Adderall [amphetamine-dextroamphetamine], Morphine, and Wound dressing adhesive Immunizations Immunization History Administered Date(s) Administered DT Vaccine 12/26/2002 HPV Vaccine, Quadrivalent 12/07/2007, 02/10/2008, 06/08/2008 Hep A Vaccine, Unspecified 04/24/2008 Hib Vaccine, HbOC 1991, 1991 Influenza Vaccine 0.5ml 09/20/2006, 09/20/2007, 10/05/2008, 08/24/2009, 08/24/2012 Meningococcal Vac MCV4, Unspecified 07/23/2005 OPV 1991, 1991, 02/18/1998 Tdap Vaccine 03/19/2015 influenza, injectable, quadrivalent 09/29/2016 Review of Systems Constitutional: Negative for fever, weight loss and weight gain. HENT: Negative for ear pain, sore throat and hoarseness. Negative for difficulty swallowing. +Intermittent right facial swelling. Cardiovascular: Negative for chest pain and dyspnea on exertion (Can climb up 2 floors). Respiratory: Is not experiencing shortness of breath. Gastrointestinal: Negative for nausea and vomiting. Neurological: Negative for headaches. Psychiatric: The patient is not nervous/anxious. Musculoskeletal: Denies muscle pain/weakness Heme/Lymph: Negative for lymph nodes, easy bruising Physical Exam Vital Signs: BP 131/88 Pulse 82 Temp 99.2 F (37.3 C) (Oral) Resp 16 Ht 1.645 m (5' 4.76 ) Wt 79.6 kg (175 lb 8 oz) SpO2 97% BMI 29.42 kg/m Smoking Status Never Smoker General: Well-developed, well-nourished. No distress. Communication and Voice: Clear pitch and clarity Respiratory Respiratory effort: Equal inspiration and expiration without stridor Neuro: Patient oriented to person, place, and time; Appropriate mood and affect; Gait is intact with no imbalance; Cranial nerves II-XII are intact Head and Face Inspection: Normocephalic and atraumatic without mass or lesion Palpation: Facial skeleton intact without bony stepoffs Facial Strength: Facial motility symmetric and full bilaterally Eyes: PERRLA. No nystagmus with normal extraocular motion bilaterally ENT Pinna: External ear intact and fully developed External canal: Canal is patent with intact skin Tympanic Membrane: Clear and mobile External nose: No scar or anatomic deformity Internal Nose: Septum intact and midline. No edema, polyp, or rhinorrhea. TMJ: No pain to palpation with full mobility Salivary Glands: No mass or tenderness Lips: No lesion. Oral cavity: No mass or lesion. Oropharynx: No mass or lesion. Tonsillar fossa symmetric. Base of tongue soft without mass or induration. Neck Trachea: Midline trachea. Thyroid: No mass or nodularity. Lymphatics: No lymphadenopathy. Data: US NECK, 03/18/22: ULTRASOUND NOTE Images were taken through the central and lateral neck bilaterally. RIGHT CENTRAL: there are two hypoechoic lesions at the right and anterior aspect of the thyroidectomy measuring 0.4 x 0.2 x 0.6 cm and 0.4 x 0.1 x 0.4 cm. RIGHT LATERAL: Level [address] measuring 1.1 x 0.6 x 1.4 cm, likely reactive LEFT CENTRAL: small isoechoic lesion measuring 0.7 x 0.2 cm LEFT LATERAL: No suspicious nodes Attestation: I interviewed and examined Greta Andres, referred to me due to parotid swelling, with Karen ESPINOSA ([employer] MACHINE MAINTENANCE). I discussed the differential diagnosis and plan and reviewed all her notes. I agree with the documentation. I also reviewed the medication list, and social,family, medical, surgical and allergy history and current complaints as well as examined the patient. Please see note for details regarding these. I have personally reviewed the imaging, labs, and pathology if pertinent to this issue.. I personally performed or was present throughout the entire duration of the procedures. Pertinent examinations findings have been highlighted in the note. IMPRESSION: 32 y.o. female with a history of papillary thyroid carcinoma s/p multiple surgeries and MARTIN in 07/2021 presenting to clinic with right parotid sialadenitis. PLAN: MR sialogram I discussed the above findings at length and answered questions and concerns. documented in this encounter [facility] 03-18-2022 Instructions Stephanie Richards RN - 03/18/2022 12:38 PM EDT Labs today. Placed a referral to ENT to evaluate for salivary gland dysfunction. Follow up in 6 months documented in this encounter [facility] 03-18-2022 History of Presen t illness Narrative Reason for Visit: Papillary thyroid carcinoma History of Present Illness: Greta Andres is a 31 y.o. female here for the follow up of her papillary thyroid carcinoma (TAYLOR initial stratification intermediate risk). She is s/p total thyroidectomy and central neck dissection on 07/31/[address] Martinez at [facility]. Pathology showed mutifocal PTC with the largest foci measuring 1.2 cm in the right lobe/isthmus. Additional microscopic foci bilaterally. + rare tall cell featurers, +LVI, no ETE, 2/3 nodes + with largest foci 0.9 cm. TSH had been elevated since surgery, with corresponding elevated Tg up to 8.3. I-123 WBS done on 05/01/2020 showed intense uptake in the right thyroid bed, corresponding to residual thyroid tissue or tumor. Patient is then underwent redo central neck dissection by Dr. Burgess on 09/10/2020. Pathology showed 2/8 nodes positive, with largest foci measuring 0.6 cm with no MAKI. Of note, she developed significant gag reflex with vomiting after the second surgery, which has resolved. 09/2020 neck US showed right central hypoechoic lesion measuring 0.7 cm and left central hypoechoic lesion measuring 0.5 cm. She was seen by Dr. Vallejo for evaluation of redo neck dissection & was also presented at tumor board. The decision was made to follow with neck ultrasound/CT surveillance. In 11/2020 CT neck showed small enhancing nodules in right side of the trachea near the thyroidectomy bed, the largest measured 9x7 mm, two smaller nodular foci are present just below this. Another tiny enhancing focus is noted along the anterior aspect of the thyroidectomy bed just right of the midline beneath the strap muscles measuring up to [address] chest with no evidence of intrathoracic metastatic disease. Neck US showed small lesions in the right central neck measuring <1.0 cm as well as left central neck small lesion ~0.5 cm. She underwent MARTIN therapy on 08/13/2021 using 150 mCi of iodine-131 sodium iodide. Stimulated Tg was 4.5 (negative TgAbs) with a TSH of >150. Post-therapy scan showed activity within the bilateral thyroid bed, consistent with treated thyroid tissue. There were no distant foci of increased activity to suggest metastatic disease. Interim History She developed an intermittent swelling and soreness in the right neck which is mainly associated with food intake. Symptoms started 2 months after MARTIN. She took a course of prednisone, now takes ibuprofen and tylenol. Since the last visit she was also evaluated by GI and underwent upper and lower endoscopy. She was diagnosed with gastritis and currently receives a treatment. Noted significant improvement of GI symptoms. She is now eating well and able to keep her meds down. Medicine: Synthroid, 200 mcg 5 days/week & 225 mcg 2 days/week PMHx: As above, asthma PSHx: As above, cystectomy, knee arthroscopy, removal biliary duct/gallbladder calculi/debris percutaneous w/ image FHx: No thyroid CA Social: Denies head/neck radiation. Review of Systems - As per HPI and below: Constitutional: Patient noted intermittent swelling in the upper part of the right neck Cardiovascular: Negative for palpitations, chest pain, claudication. Respiratory: Negative for SOB, VERMA, Cough. Gastrointestinal: negative for nausea, vomiting, diarrhea, constipation. Review of systems otherwise negative. Physical Exam: Constitutional: healthy appearing, not in acute distress Neck: well healed surgical scar, no neck palpable lymphadenopathy, mild soreness at the right parotid gland site Cardiovascular: regular rate and rhythm, no murmurs, rubs or gallops. No edema. Pulmonary/Chest: lungs clear to auscultation bilaterally. Abdominal: Soft, non-tender Extremities: No edema and no rash in all four extremities. Labs Date TSH Tg TgAbs 10/10 32 6.2 6.4 12/11 40 1.9 03/11 3.8 0.9 04/10 133 8.3 10.4 05/11 356 7.2 11 08/11 5.3 1.2 S/p right CND 10/11 150 6.4 <1.8 01/12 0.018 1.1 <1.8 06/11 0.381 0.5 <1.8 08/12 2.473 0.9 <1.8 08/12 >150 4.5 <1.8 (rhTSH-stimulated, MARTIN therapy) 10/12 105 0.2 <1.8 03/13 1.1 <0.1 <1.8 Assessment and Plan: Greta Andres is a 31 y.o. female s/p TT and CND for papillary thyroid carcinoma. She underwent redo central neck dissection for residual neck disease. Neck US and CT neck after the second surgery still showed several subcentimeter enhancing nodules or nodes in the central neck around the thyroidectomy bed so she underwent MARTIN therapy, as another revision surgery was not recommended upon discussion at tumor board. She received 150 mCi of I-131. Post-therapy scan showed activity within the bilateral thyroid bed. Papillary Thyroid Carcinoma: Neck US today showed central neck stable/smaller appearing lesions. Her Tg was undetectable after MARTIN Will check TSH and Tg battery today. Goal TSH 0.5-2.0 Postsurgical hypothyroidism: Takes Synthroid, 200 mcg 5 days/week & 225 mcg 2 days/week with good adherence and proper intake instructions. Post MARTIN sialadenitis Reports intermittent swelling and soreness at the right parotid gland site. Neck US was unrevealing. Symptoms are consistent with sialadenitis. Will place a referral to ENT for further evaluation. Tawanna Rivera MD Mathematical Statisticianfireworks inspector Department of Internal Medicine Division of Endocrinology, Diabetes and Metabolism [facility] documented in this encounter [facility] 03-18-2022 Procedure note Associated Ord er(s): TN US,HEAD/NECK TISSUES,REAL TIME ULTRASOUND NOTE Images were taken through the central and lateral neck bilaterally. RIGHT CENTRAL: there are two hypoechoic lesions at the right and anterior aspect of the thyroidectomy measuring 0.4 x 0.2 x 0.6 cm and 0.4 x 0.1 x 0.4 cm. RIGHT LATERAL: Level [address] LN measuring 1.1 x 0.6 x 1.4 cm, likely reactive LEFT CENTRAL: small isoechoic lesion measuring 0.7 x 0.2 cm LEFT LATERAL: No suspicious [facility] Procedure note Associated Ord er(s): TN US,HEAD/NECK TISSUES,REAL TIME ULTRASOUND NOTE Images were taken through the central and lateral neck bilaterally. RIGHT CENTRAL: there are two hypoechoic lesions at the right and anterior aspect of the thyroidectomy measuring 0.4 x 0.2 x 0.6 cm and 0.4 x 0.1 x 0.4 cm. RIGHT LATERAL: Level [address] LN measuring 1.1 x 0.6 x 1.4 cm, likely reactive LEFT CENTRAL: small isoechoic lesion measuring 0.7 x 0.2 cm LEFT LATERAL: No suspicious nodes documented in this encounter [facility] 03-05-2022 Instructions Vielka Castillo Ma - 03/05/2022 8:13 AM EDT Capsule Endoscopy Post Ingestion Patient Information Do not eat or drink for two (2) hours after you have swallowed the capsule endoscope. Two (2) hours after you have swallowed the capsule endoscope you may drink clear liquids like coffee and tea (without cream), cola drinks, apple juice, broth, and eat Jell-O or popsicles. Please do not consume anything red in color. You may also return to taking your routine medications. Four (4) hours after you have swallowed the capsule endoscope, you may return to your usual diet. You may return to your normal activities after ingesting the capsule. Please avoid vigorous exercise. You may operate electrical equipment while undergoing your capsule endoscopy. It is not likely that any household or office equipment will interfere with this examination. You may use cell phones, computers, remote TV appliances, microwaves, MP3 players and digital cameras. Because the capsule endoscopy equipment is somewhat ominous in appearance, we recommend you avoid the airport, bank and [employer] buildings. Many [employer] use a similar technology for security, it is best to avoid these environments. Avoid other patients also undergoing capsule endoscopy. Although the transmission distance is limited, it is possible that your capsule images could be altered. You may not have an MRI (a test similar to an x-ray that uses magnets in the imaging process) while the capsule endoscope remains in your body. Do not schedule a capsule endoscope and an MRI for the same day. Should you require an MRI in the future and you have not seen the capsule evacuated in your stool, discuss this with your physician. An x-ray of your abdomen can show if the capsule has been evacuated. Remove your capsule endoscopy equipment at the time indicated by your procedure nurse. 1. Loosen the Velcro Belt (if you have adhesive patches on your abdomen-remove them). 2. The equipment will come off in one piece. 3. There is nothing to turn off or take apart. 4. Place all equipment in the bag provided. 5. Your nurse may ask you to return the equipment directly to the office. The capsule endoscope will pass naturally in your stool. It is not necessary to retrieve or return the capsule. The images are stored in the equipment you have worn on your belt. You may flush the used capsule down the bathroom toilet for disposal. In some instances, patients have passed the capsule endoscope during stooling while the capsule is still actively blinking . Do not be alarmed if this happens to you. You may dispose of the capsule in the same manner. If you stopped taking your oral Iron for this examination, you may resume taking it the day after your capsule examination. . Seek medical assistance if you develop extreme abdominal pain, bloating, fever, nausea and vomiting. These may be signs of obstruction and require medical intervention. During routine business hours you may call: After Business hours: [phone] have answering service contact your physician documented in this encounter [facility] 03-05-2022 History of Presen t illness Narrative Patient had a capsule endoscopy. Patient swallowed the capsule without any difficulty. Referring Provider: Susanne Potts Reason for Capsule: Susanne Potts Patient was given discharge instructions. Ingested capsule endoscope without difficulty at 8:12 AM on 03/05/2022. documented in this encounter [facility] 11-15-2021 Note PROCEDURE: CHEST AP PORTABLE REASON FOR STUDY/CLINICAL HISTORY: Cough. COMPARISON STUDY: 10/11/2021 TECHNIQUE: Single view(s) of the chest presented for interpretation. FINDINGS: There is slight left basilar/lingular atelectasis or very subtle infiltrate with mild associated bronchial thickening noted. Very minimal atelectasis at the right lung base is suggested. Normal cardiomediastinal silhouette. No focal consolidation, edema, or large effusion. No pneumothorax. No acute appearing focal significant bony abnormality. IMPRESSION: 1. Minimal atelectasis and slight bronchial thickening as described in the lingula and at the left lung base. 2. No large effusion, dense consolidation, or pneumothorax. [facility] 06-20-2021 History of Presen t illness Narrative MARTIN education completed. Handouts and low iodine cookbook provided to patient. Denies any questions at this time. documented in this encounter [facility] documented as of this encounter (statuses as of 03/05/2022) [email or web address] History of Past illness Narrative* Problem Noted Date Resolved Date Well adult exam 10/19/2017 07/27/2019 Overview: Last done: 10/20/2017 Attention and concentration deficit 03/19/2015 07/27/2019 Esophageal reflux 02/21/2015 07/27/2019 Routine gynecological examination 08/10/2014 07/27/2019 Overview: [facility] Screening for diabetes mellitus (DM) 08/10/2014 07/27/2019 Need for lipid screening 08/10/2014 019 Fibromyalgia 05/07/2014 07/27/2019 Other acquired deformity of toe 05/20/2009 07/27/2019 Backache, unspecified 06/19/2008 07/27/2019 Overview: Patient has degenerative disc disease and a slipped disc in her back. The symptoms began July 2011. 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 She sees Dr. Salter at [facility] for both of these issues. Patient has multiple questions regarding anesthesia during delivery due to her back issues. I have asked her to discuss this with Dr. Salter at an upcoming appointment and have him dictate a letter to Dr. Anderson with any concerns he may have. documented as of this encounter (statuses as of 03/09/2022) [facility] History of Past illness Narrative* Problem Noted Date Resolved Date Well adult exam 10/19/2017 07/27/2019 Overview: Last done: 10/20/2017 Attention and concentration deficit 03/19/2015 07/27/2019 Esophageal reflux 02/21/2015 07/27/2019 Routine gynecological examination 08/10/2014 07/27/2019 Overview: [facility] Screening for diabetes mellitus (DM) 08/10/2014 07/27/2019 Need for lipid screening 08/10/2014 019 Fibromyalgia 05/07/2014 07/27/2019 Other acquired deformity of toe 05/20/2009 07/27/2019 Backache, unspecified 06/19/2008 07/27/2019 Overview: Patient has degenerative disc disease and a slipped disc in her back. The symptoms began July 2011. 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 She sees Dr. Salter at [facility] for both of these issues. Patient has multiple questions regarding anesthesia during delivery due to her back issues. I have asked her to discuss this with Dr. Salter at an upcoming appointment and have him dictate a letter to Dr. Anderson with any concerns he may have. documented as of this encounter (statuses as of 04/07/2022) [facility] History of Past illness Narrative* Problem Noted Date Resolved Date Well adult exam 10/19/2017 07/27/2019 Overview: Last done: 10/20/2017 Attention and concentration deficit 03/19/2015 07/27/2019 Esophageal reflux 02/21/2015 07/27/2019 Routine gynecological examination 08/10/2014 07/27/2019 [facility]: [facility] diabetes [facility] (DM) 08/10/2014 07/27/2019 Need for lipid screening 08/10/2014 019 Fibromyalgia 05/07/2014 07/27/2019 Other acquired deformity of toe 05/20/2009 07/27/2019 Backache, unspecified 06/19/2008 07/27/2019 Overview: Patient has degenerative disc disease and a slipped disc in her back. The symptoms began July 2011. 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 She sees Dr. Salter at [facility] for both of these issues. Patient has multiple questions regarding anesthesia during delivery due to her back issues. I have asked her to discuss this with Dr. Salter at an upcoming appointment and have him dictate a letter to Dr. Anderson with any concerns he may have. documented as of this encounter (statuses as of 04/10/2022) [facility] History of Past illness Narrative* Problem Noted Date Resolved Date Well adult exam 10/19/2017 07/27/2019 Overview: Last done: 10/20/2017 Attention and concentration deficit 03/19/2015 07/27/2019 Esophageal reflux 02/21/2015 07/27/2019 Routine gynecological examination 08/10/2014 07/27/2019 Overview: [facility] Screening for diabetes mellitus (DM) 08/10/2014 07/27/2019 Need for lipid screening 08/10/2014 019 Fibromyalgia 05/07/2014 07/27/2019 Other acquired deformity of toe 05/20/2009 07/27/2019 Backache, unspecified 06/19/2008 07/27/2019 Overview: Patient has degenerative disc disease and a slipped disc in her back. The symptoms began July 2011. 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 She sees Dr. Salter at [facility] for both of these issues. Patient has multiple questions regarding anesthesia during delivery due to her back issues. I have asked her to discuss this with Dr. Salter at an upcoming appointment and have him dictate a letter to Dr. Anderson with any concerns he may have. documented as of this encounter (statuses as of 04/14/2022) [facility] History of Past illness Narrative* Problem Noted Date Resolved Date Well adult exam 10/19/2017 07/27/2019 Overview: Last done: 10/20/2017 Attention and concentration deficit 03/19/2015 07/27/2019 Esophageal reflux 02/21/2015 07/27/2019 Routine gynecological examination 08/10/2014 07/27/2019 Overview: [facility] Screening for diabetes mellitus (DM) 08/10/2014 07/27/2019 Need for lipid screening 08/10/2014 019 Fibromyalgia 05/07/2014 07/27/2019 Other acquired deformity of toe 05/20/2009 07/27/2019 Backache, unspecified 06/19/2008 07/27/2019 Overview: Patient has degenerative disc disease and a slipped disc in her back. The symptoms began July 2011. 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 She sees Dr. Salter at [facility] for both of these issues. Patient has multiple questions regarding anesthesia during delivery due to her back issues. I have asked her to discuss this with Dr. Salter at an upcoming appointment and have him dictate a letter to Dr. Anderson with any concerns he may have. documented as of this encounter (statuses as of 05/14/2022) [facility] History of Past illness Narrative* Problem Noted Date Resolved Date Well adult exam 10/19/2017 07/27/2019 Overview: Last done: 10/20/2017 Attention and concentration deficit 03/19/2015 07/27/2019 Esophageal reflux 02/21/2015 07/27/2019 Routine gynecological examination 08/10/2014 07/27/2019 Overview: Sees [facility] Screening for diabetes mellitus (DM) 08/10/2014 07/27/2019 Need for lipid screening 08/10/2014 019 Fibromyalgia 05/07/2014 07/27/2019 Other acquired deformity of toe 05/20/2009 07/27/2019 Backache, unspecified 06/19/2008 07/27/2019 Overview: Patient has degenerative disc disease and a slipped disc in her back. The symptoms began July 2011. 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 She sees Dr. Salter at [facility] for both of these issues. Patient has multiple questions regarding anesthesia during delivery due to her back issues. I have asked her to discuss this with Dr. Salter at an upcoming appointment and have him dictate a letter to Dr. Anderson with any concerns he may have. documented as of this encounter (statuses as of 05/26/2022) [facility] History of Past illness Narrative* Problem Noted Date Resolved Date Well adult exam 10/19/2017 07/27/2019 Overview: Last done: 10/20/2017 Attention and concentration deficit 03/19/2015 07/27/2019 Esophageal reflux 02/21/2015 07/27/2019 Routine gynecological examination 08/10/2014 07/27/2019 Overview: [facility] Screening for diabetes mellitus (DM) 08/10/2014 07/27/2019 Need for lipid screening 08/10/2014 019 Fibromyalgia 05/07/2014 07/27/2019 Other acquired deformity of toe 05/20/2009 07/27/2019 Backache, unspecified 06/19/2008 07/27/2019 Overview: Patient has degenerative disc disease and a slipped disc in her back. The symptoms began July 2011. 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 She sees Dr. Salter at [facility] for both of these issues. Patient has multiple questions regarding anesthesia during delivery due to her back issues. I have asked her to discuss this with Dr. Salter at an upcoming appointment and have him dictate a letter to Dr. Anderson with any concerns he may have. documented as of this encounter (statuses as of 06/24/2022) [facility] History of Past illness Narrative* Problem Noted Date Resolved Date Well adult exam 10/19/2017 07/27/2019 Overview: Last done: 10/20/2017 Attention and concentration deficit 03/19/2015 07/27/2019 Esophageal reflux 02/21/2015 07/27/2019 Routine gynecological examination 08/10/2014 07/27/2019 Overview: [facility] Screening for diabetes mellitus (DM) 08/10/2014 07/27/2019 Need for lipid screening 08/10/2014 019 Fibromyalgia 05/07/2014 07/27/2019 Other acquired deformity of toe 05/20/2009 07/27/2019 Backache, unspecified 06/19/2008 07/27/2019 Overview: Patient has degenerative disc disease and a slipped disc in her back. The symptoms began July 2011. 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 She sees Dr. Salter at [facility] for both of these issues. Patient has multiple questions regarding anesthesia during delivery due to her back issues. I have asked her to discuss this with Dr. Salter at an upcoming appointment and have him dictate a letter to Dr. Anderson with any concerns he may have. documented as of this encounter (statuses as of 07/01/2022) [facility] History of Past illness Narrative* Problem Noted Date Resolved Date Well adult exam 10/19/2017 07/27/2019 Overview: Last done: 10/20/2017 Attention and concentration deficit 03/19/2015 07/27/2019 Esophageal reflux 02/21/2015 07/27/2019 Routine gynecological examination 08/10/2014 07/27/2019 Overview: [facility] Screening for diabetes mellitus (DM) 08/10/2014 07/27/2019 Need for lipid screening 08/10/2014 019 Fibromyalgia 05/07/2014 07/27/2019 Other acquired deformity of toe 05/20/2009 07/27/2019 Backache, unspecified 06/19/2008 07/27/2019 Overview: Patient has degenerative disc disease and a slipped disc in her back. The symptoms began July 2011. 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 She sees Dr. Salter at [facility] for both of these issues. Patient has multiple questions regarding anesthesia during delivery due to her back issues. I have asked her to discuss this with Dr. Salter at an upcoming appointment and have him dictate a letter to Dr. Anderson with any concerns he may have. documented as of this encounter (statuses as of 07/06/2022) [facility] History of Past illness Narrative* Problem Noted Date Resolved Date Well adult exam 10/19/2017 07/27/2019 Overview: Last done: 10/20/2017 Attention and concentration deficit 03/19/2015 07/27/2019 Esophageal reflux 02/21/2015 07/27/2019 Routine gynecological examination 08/10/2014 07/27/2019 Overview: [facility] Screening for diabetes mellitus (DM) 08/10/2014 07/27/2019 Need for lipid screening 08/10/2014 019 Fibromyalgia 05/07/2014 07/27/2019 Other acquired deformity of toe 05/20/2009 07/27/2019 Backache, unspecified 06/19/2008 07/27/2019 Overview: Patient has degenerative disc disease and a slipped disc in her back. The symptoms began July 2011. 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 She sees Dr. Salter at [facility] for both of these issues. Patient has multiple questions regarding anesthesia during delivery due to her back issues. I have asked her to discuss this with Dr. Salter at an upcoming appointment and have him dictate a letter to Dr. Anderson with any concerns he may have. documented as of this encounter (statuses as of 07/07/2022) [facility] History of Past illness Narrative* Problem Noted Date Resolved Date Well adult exam 10/19/2017 07/27/2019 Overview: Last done: 10/20/2017 Attention and concentration deficit 03/19/2015 07/27/2019 Esophageal reflux 02/21/2015 07/27/2019 Routine gynecological examination 08/10/2014 07/27/2019 Overview: Sees [facility] Screening for diabetes mellitus (DM) 08/10/2014 07/27/2019 Need for lipid screening 08/10/2014 019 Fibromyalgia 05/07/2014 07/27/2019 Other acquired deformity of toe 05/20/2009 07/27/2019 Backache, unspecified 06/19/2008 07/27/2019 Overview: Patient has degenerative disc disease and a slipped disc in her back. The symptoms began July 2011. 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 She sees Dr. Salter at [facility] for both of these issues. Patient has multiple questions regarding anesthesia during delivery due to her back issues. I have asked her to discuss this with Dr. Salter at an upcoming appointment and have him dictate a letter to Dr. Anderson with any concerns he may have. documented as of this encounter (statuses as of 07/31/2022) [facility] History of Past illness Narrative* Problem Noted Date Resolved Date Attention and concentration deficit 03/19/2015 07/27/2019 Esophageal reflux 02/21/2015 07/27/2019 Routine gynecological examination 08/10/2014 07/27/2019 Overview: [facility] Screening for diabetes mellitus (DM) 08/10/2014 07/27/2019 Need for lipid screening 08/10/2014 019 Fibromyalgia 05/07/2014 07/27/2019 Other acquired deformity of toe 05/20/2009 07/27/2019 Backache, unspecified 06/19/2008 07/27/2019 Overview: Patient has degenerative disc disease and a slipped disc in her back. The symptoms began July 2011. 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 She sees Dr. Salter at [facility] for both of these issues. Patient has multiple questions regarding anesthesia during delivery due to her back issues. I have asked her to discuss this with Dr. Salter at an upcoming appointment and have him dictate a letter to Dr. Anderson with any concerns he may have. documented as of this encounter (statuses as of 10/12/2022) [facility]04-28-2015 History of Past illness Narrative* Problem Noted Date Resolved Date Attention and concentration deficit 03/19/2015 07/27/2019 Esophageal reflux 02/21/2015 07/27/2019 Routine gynecological examination 08/10/2014 07/27/2019 Overview: [facility] Screening for diabetes mellitus (DM) 08/10/2014 07/27/2019 Need for lipid screening 08/10/2014 019 Fibromyalgia 05/07/2014 07/27/2019 Other acquired deformity of toe 05/20/2009 07/27/2019 Backache, unspecified 06/19/2008 07/27/2019 Overview: Patient has degenerative disc disease and a slipped disc in her back. The symptoms began July 2011. 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 She sees Dr. Salter at [facility] for both of these issues. Patient has multiple questions regarding anesthesia during delivery due to her back issues. I have asked her to discuss this with Dr. Salter at an upcoming appointment and have him dictate a letter to Dr. Anderson with any concerns he may have. documented as of this encounter (statuses as of 11/26/2022) [facility]2015 History of Past illness Narrative* Problem Noted Date Resolved Date Attention and concentration deficit 03/19/2015 07/27/2019 Esophageal reflux 02/21/2015 07/27/2019 Routine gynecological examination 08/10/2014 07/27/2019 Overview: [facility] Screening for diabetes mellitus (DM) 08/10/2014 07/27/2019 Need for lipid screening 08/10/2014 019 Fibromyalgia 05/07/2014 07/27/2019 Other acquired deformity of toe 05/20/2009 07/27/2019 Backache, unspecified 06/19/2008 07/27/2019 Overview: Patient has degenerative disc disease and a slipped disc in her back. The symptoms began July 2011. 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 She sees Dr. Salter at [facility] for both of these issues. Patient has multiple questions regarding anesthesia during delivery due to her back issues. I have asked her to discuss this with Dr. Salter at an upcoming appointment and have him dictate a letter to Dr. Anderson with any concerns he may have. documented as of this encounter (statuses as of 11/27/2022) [facility]2015 History of Past illness Narrative* Problem Noted Date Resolved Date Attention and concentration deficit 03/19/2015 07/27/2019 Esophageal reflux 02/21/2015 07/27/2019 Routine gynecological examination 08/10/2014 07/27/2019 Overview: [facility] Screening for diabetes mellitus (DM) 08/10/2014 07/27/2019 Need for lipid screening 08/10/2014 019 Fibromyalgia 05/07/2014 07/27/2019 Other acquired deformity of toe 05/20/2009 07/27/2019 Backache, unspecified 06/19/2008 07/27/2019 Overview: Patient has degenerative disc disease and a slipped disc in her back. The symptoms began July 2011. 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 She sees Dr. Salter at [facility] for both of these issues. Patient has multiple questions regarding anesthesia during delivery due to her back issues. I have asked her to discuss this with Dr. Salter at an upcoming appointment and have him dictate a letter to Dr. Adnerson with any concerns he may have. documented as of this encounter (statuses as of 12/17/2022) [facility]2015 History of Past illness Narrative* Problem Noted Date Resolved Date Attention and concentration deficit 03/19/2015 07/27/2019 Esophageal reflux 02/21/2015 07/27/2019 Routine gynecological examination 08/10/2014 07/27/2019 Overview: [facility] Screening for diabetes mellitus (DM) 08/10/2014 07/27/2019 Need for lipid screening 08/10/2014 019 Fibromyalgia 05/07/2014 07/27/2019 Other acquired deformity of toe 05/20/2009 07/27/2019 Backache, unspecified 06/19/2008 07/27/2019 Overview: Patient has degenerative disc disease and a slipped disc in her back. The symptoms began July 2011. 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 She sees Dr. Salter at [facility] for both of these issues. Patient has multiple questions regarding anesthesia during delivery due to her back issues. I have asked her to discuss this with Dr. Salter at an upcoming appointment and have him dictate a letter to Dr. Anderson with any concerns he may have. documented as of this encounter (statuses as of 01/12/2023) [facility]2015 History of Past illness Narrative* Problem Noted Date Resolved Date Attention and concentration deficit 03/19/2015 07/27/2019 Esophageal reflux 02/21/2015 07/27/2019 Routine gynecological examination 08/10/2014 07/27/2019 Overview: [facility] Screening for diabetes mellitus (DM) 08/10/2014 07/27/2019 Need for lipid screening 08/10/2014 019 Fibromyalgia 05/07/2014 07/27/2019 Other acquired deformity of toe 05/20/2009 07/27/2019 Backache, unspecified 06/19/2008 07/27/2019 Overview: Patient has degenerative disc disease and a slipped disc in her back. The symptoms began July 2011. 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 She sees Dr. Salter at [facility] for both of these issues. Patient has multiple questions regarding anesthesia during delivery due to her back issues. I have asked her to discuss this with Dr. Salter at an upcoming appointment and have him dictate a letter to Dr. Anderson with any concerns he may have. documented as of this encounter (statuses as of 01/22/2023) [facility]2015 History of Past illness Narrative* Problem Noted Date Resolved Date Attention and concentration deficit 03/19/2015 07/27/2019 Esophageal reflux 02/21/2015 07/27/2019 Routine gynecological examination 08/10/2014 07/27/2019 Overview: [facility] Screening for diabetes mellitus (DM) 08/10/2014 07/27/2019 Need for lipid screening 08/10/2014 019 Fibromyalgia 05/07/2014 07/27/2019 Other acquired deformity of toe 05/20/2009 07/27/2019 Backache, unspecified 06/19/2008 07/27/2019 Overview: Patient has degenerative disc disease and a slipped disc in her back. The symptoms began July 2011. 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 She sees Dr. Salter at [facility] for both of these issues. Patient has multiple questions regarding anesthesia during delivery due to her back issues. I have asked her to discuss this with Dr. Salter at an upcoming appointment and have him dictate a letter to Dr. Anderson with any concerns he may have. documented as of this encounter (statuses as of 01/22/2023) [facility] History of Past illness Narrative* Problem Noted Date Resolved Date Attention and concentration deficit 03/19/2015 07/27/2019 Esophageal reflux 02/21/2015 07/27/2019 Routine gynecological examination 08/10/2014 07/27/2019 Overview: [facility] Screening for diabetes mellitus (DM) 08/10/2014 07/27/2019 Need for lipid screening 08/10/20142 019 Fibromyalgia 05/07/2014 07/27/2019 Other acquired deformity of toe 05/20/2009 07/27/2019 Backache, unspecified 06/19/2008 07/27/2019 Overview: Patient has degenerative disc disease and a slipped disc in her back. The symptoms began July 2011. 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 She sees Dr. Salter at [facility] for both of these issues. Patient has multiple questions regarding anesthesia during delivery due to her back issues. I have asked her to discuss this with Dr. Salter at an upcoming appointment and have him dictate a letter to Dr. Anderson with any concerns he may have. documented as of this encounter (statuses as of 01/26/2023) [facility]2015 History of Past illness Narrative* Problem Noted Date Resolved Date Attention and concentration deficit 03/19/2015 07/27/2019 Esophageal reflux 02/21/2015 07/27/2019 Routine gynecological examination 08/10/2014 07/27/2019 Overview: [facility] Screening for diabetes mellitus (DM) 08/10/2014 07/27/2019 Need for lipid screening 08/10/20142 019 Fibromyalgia 05/07/2014 07/27/2019 Other acquired deformity of toe 05/20/2009 07/27/2019 Backache, unspecified 06/19/2008 07/27/2019 Overview: Patient has degenerative disc disease and a slipped disc in her back. The symptoms began July 2011. 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 She sees Dr. Salter at [facility] for both of these issues. Patient has multiple questions regarding anesthesia during delivery due to her back issues. I have asked her to discuss this with Dr. Salter at an upcoming appointment and have him dictate a letter to Dr. Anderson with any concerns he may have. documented as of this encounter (statuses as of 01/28/2023) [facility] History of Past illness Narrative* Problem Noted Date Resolved Date Attention and concentration deficit 03/19/2015 07/27/2019 Esophageal reflux 02/21/2015 07/27/2019 Routine gynecological examination 08/10/2014 07/27/2019 Overview: [facility] Screening for diabetes mellitus (DM) 08/10/2014 07/27/2019 Need for lipid screening 08/10/2014 019 Fibromyalgia 05/07/2014 07/27/2019 Other acquired deformity of toe 05/20/2009 07/27/2019 Backache, unspecified 06/19/2008 07/27/2019 Overview: Patient has degenerative disc disease and a slipped disc in her back. The symptoms began July 2011. 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 She sees Dr. Salter at [facility] for both of these issues. Patient has multiple questions regarding anesthesia during delivery due to her back issues. I have asked her to discuss this with Dr. Salter at an upcoming appointment and have him dictate a letter to Dr. Anderson with any concerns he may have. documented as of this encounter (statuses as of 02/06/2023) [facility] History of Past illness Narrative* Problem Noted Date Resolved Date Attention and concentration deficit 03/19/2015 07/27/2019 Esophageal reflux 02/21/2015 07/27/2019 Routine gynecological examination 08/10/2014 07/27/2019 Overview: [facility] Screening for diabetes mellitus (DM) 08/10/2014 07/27/2019 Need for lipid screening 08/10/2014 019 Fibromyalgia 05/07/2014 07/27/2019 Other acquired deformity of toe 05/20/2009 07/27/2019 Backache, unspecified 06/19/2008 07/27/2019 Overview: Patient has degenerative disc disease and a slipped disc in her back. The symptoms began July 2011. 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 She sees Dr. Salter at [facility] for both of these issues. Patient has multiple questions regarding anesthesia during delivery due to her back issues. I have asked her to discuss this with Dr. Salter at an upcoming appointment and have him dictate a letter to Dr. Anderson with any concerns he may have. documented as of this encounter (statuses as of 02/13/2023) [facility] History of Past illness Narrative* Problem Noted Date Resolved Date Attention and concentration deficit 03/19/2015 07/27/2019 Esophageal reflux 02/21/2015 07/27/2019 Routine gynecological examination 08/10/2014 07/27/2019 Overview: [facility] Screening for diabetes mellitus (DM) 08/10/2014 07/27/2019 Need for lipid screening 08/10/2014 019 Fibromyalgia 05/07/2014 07/27/2019 Other acquired deformity of toe 05/20/2009 07/27/2019 Backache, unspecified 06/19/2008 07/27/2019 Overview: Patient has degenerative disc disease and a slipped disc in her back. The symptoms began July 2011. 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 She sees Dr. Salter at [facility] for both of these issues. Patient has multiple questions regarding anesthesia during delivery due to her back issues. I have asked her to discuss this with Dr. Salter at an upcoming appointment and have him dictate a letter to Dr. Anderson with any concerns he may have. documented as of this encounter (statuses as of 02/17/2023) [facility] History of Past illness Narrative* Problem Noted Date Resolved Date Attention and concentration deficit 03/19/2015 07/27/2019 Esophageal reflux 02/21/2015 07/27/2019 Routine gynecological examination 08/10/2014 07/27/2019 Overview: [facility] Screening for diabetes mellitus (DM) 08/10/2014 07/27/2019 Need for lipid screening 08/10/2014 019 Fibromyalgia 05/07/2014 07/27/2019 Other acquired deformity of toe 05/20/2009 07/27/2019 Backache, unspecified 06/19/2008 07/27/2019 Overview: Patient has degenerative disc disease and a slipped disc in her back. The symptoms began July 2011. 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 She sees Dr. Salter at [facility] for both of these issues. Patient has multiple questions regarding anesthesia during delivery due to her back issues. I have asked her to discuss this with Dr. Salter at an upcoming appointment and have him dictate a letter to Dr. Anderson with any concerns he may have. documented as of this encounter (statuses as of 03/04/2023) [facility]2015 History of Past illness Narrative* Problem Noted Date Resolved Date Attention and concentration deficit 03/19/2015 07/27/2019 Esophageal reflux 02/21/2015 07/27/2019 Routine gynecological examination 08/10/2014 07/27/2019 Overview: Sees [facility] Screening for diabetes mellitus (DM) 08/10/2014 07/27/2019 Need for lipid screening 08/10/2014 019 Fibromyalgia 05/07/2014 07/27/2019 Other acquired deformity of toe 05/20/2009 07/27/2019 Backache, unspecified 06/19/2008 07/27/2019 Overview: Patient has degenerative disc disease and a slipped disc in her back. The symptoms began July 2011. 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 She sees Dr. Salter at [facility] for both of these issues. Patient has multiple questions regarding anesthesia during delivery due to her back issues. I have asked her to discuss this with Dr. Salter at an upcoming appointment and have him dictate a letter to Dr. Anderson with any concerns he may have. documented as of this encounter (statuses as of 03/29/2023) [facility] History of Past illness Narrative* Problem Noted Date Resolved Date Attention and concentration deficit 03/19/2015 07/27/2019 Esophageal reflux 02/21/2015 07/27/2019 Routine gynecological examination 08/10/2014 07/27/2019 Overview: [facility] Screening for diabetes mellitus (DM) 08/10/2014 07/27/2019 Need for lipid screening 08/10/2014 019 Fibromyalgia 05/07/2014 07/27/2019 Other acquired deformity of toe 05/20/2009 07/27/2019 Backache, unspecified 06/19/2008 07/27/2019 Overview: Patient has degenerative disc disease and a slipped disc in her back. The symptoms began July 2011. 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 She sees Dr. Salter at [facility] for both of these issues. Patient has multiple questions regarding anesthesia during delivery due to her back issues. I have asked her to discuss this with Dr. Salter at an upcoming appointment and have him dictate a letter to Dr. Anderson with any concerns he may have. documented as of this encounter (statuses as of 04/02/2023) [facility] History of Past illness Narrative* Problem Noted Date Resolved Date Attention and concentration deficit 03/19/2015 07/27/2019 Esophageal reflux 02/21/2015 07/27/2019 Routine gynecological examination 08/10/2014 07/27/2019 Overview: [facility] Screening for diabetes mellitus (DM) 08/10/2014 07/27/2019 Need for lipid screening 08/10/2014 019 Fibromyalgia 05/07/2014 07/27/2019 Other acquired deformity of toe 05/20/2009 07/27/2019 Backache, unspecified 06/19/2008 07/27/2019 Overview: Patient has degenerative disc disease and a slipped disc in her back. The symptoms began July 2011. 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 She sees Dr. Salter at [facility] for both of these issues. Patient has multiple questions regarding anesthesia during delivery due to her back issues. I have asked her to discuss this with Dr. Salter at an upcoming appointment and have him dictate a letter to Dr. Anderson with any concerns he may have. documented as of this encounter (statuses as of 04/05/2023) [facility] History of Past illness Narrative* Problem Noted Date Resolved Date Attention and concentration deficit 03/19/2015 07/27/2019 Esophageal reflux 02/21/2015 07/27/2019 Routine gynecological examination 08/10/2014 07/27/2019 Overview: [facility] Screening for diabetes mellitus (DM) 08/10/2014 07/27/2019 Need for lipid screening 08/10/2014 019 Fibromyalgia 05/07/2014 07/27/2019 Other acquired deformity of toe 05/20/2009 07/27/2019 Backache, unspecified 06/19/2008 07/27/2019 Overview: Patient has degenerative disc disease and a slipped disc in her back. The symptoms began July 2011. 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 She sees Dr. Salter at [facility] for both of these issues. Patient has multiple questions regarding anesthesia during delivery due to her back issues. I have asked her to discuss this with Dr. Salter at an upcoming appointment and have him dictate a letter to Dr. Anderson with any concerns he may have. documented as of this encounter (statuses as of 04/26/2023) [facility] History of Past illness Narrative* Problem Noted Date Resolved Date Attention and concentration deficit 03/19/2015 07/27/2019 Esophageal reflux 02/21/2015 07/27/2019 Routine gynecological examination 08/10/2014 07/27/2019 Overview: [facility] Screening for diabetes mellitus (DM) 08/10/2014 07/27/2019 Need for lipid screening 08/10/2014 019 Fibromyalgia 05/07/2014 07/27/2019 Other acquired deformity of toe 05/20/2009 07/27/2019 Backache, unspecified 06/19/2008 07/27/2019 Overview: Patient has degenerative disc disease and a slipped disc in her back. The symptoms began July 2011. 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 She sees Dr. Salter at [facility] for both of these issues. Patient has multiple questions regarding anesthesia during delivery due to her back issues. I have asked her to discuss this with Dr. Salter at an upcoming appointment and have him dictate a letter to Dr. Anderson with any concerns he may have. documented as of this encounter (statuses as of 04/27/2023) [facility] History of Past illness Narrative* Problem Noted Date Resolved Date Attention and concentration deficit 03/19/2015 07/27/2019 Esophageal reflux 02/21/2015 07/27/2019 Routine gynecological examination 08/10/2014 07/27/2019 Overview: [facility] Screening for diabetes mellitus (DM) 08/10/2014 07/27/2019 Need for lipid screening 08/10/2014 019 Fibromyalgia 05/07/2014 07/27/2019 Other acquired deformity of toe 05/20/2009 07/27/2019 Backache, unspecified 06/19/2008 07/27/2019 Overview: Patient has degenerative disc disease and a slipped disc in her back. The symptoms began July 2011. 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 She sees Dr. Salter at [facility] for both of these issues. Patient has multiple questions regarding anesthesia during delivery due to her back issues. I have asked her to discuss this with Dr. Salter at an upcoming appointment and have him dictate a letter to Dr. Anderson with any concerns he may have. documented as of this encounter (statuses as of 04/28/2023) [facility] History of Past illness Narrative* Problem Noted Date Diagnosed Date Resolved Date Attention and concentration deficit 03/19/2015 07/27/2019 Esophageal reflux 02/21/2015 07/27/2019 Routine gynecological examination 08/10/2014 07/27/2019 Overview: [facility] Screening for diabetes mellitus (DM) 08/10/2014 07/27/2019 Need for lipid screening 08/10/201403/2019 Fibromyalgia 05/07/2014 07/27/2019 Other acquired deformity of toe 05/20/2009 07/27/2019 Backache, unspecified 06/19/20082018 Overview: Patient has degenerative disc disease and a slipped disc in her back. The symptoms began July 2011. 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 She sees Dr. Salter at [facility] for both of these issues. Patient has multiple questions regarding anesthesia during delivery due to her back issues. I have asked her to discuss this with Dr. Salter at an upcoming appointment and have him dictate a letter to Dr. Anderson with any concerns he may have. documented as of this encounter (statuses as of 06/08/2023) [facility] History of Past illness Narrative* Problem Noted Date Diagnosed Date Resolved Date Attention and concentration deficit 03/19/2015 07/27/2019 Esophageal reflux 02/21/2015 07/27/2019 Routine gynecological examination 08/10/2014 07/27/2019 Overview: Sees [facility] Screening for diabetes mellitus (DM) 08/10/2014 07/27/2019 Need for lipid screening 08/10/201403/2019 Fibromyalgia 05/07/2014 07/27/2019 Other acquired deformity of toe 05/20/2009 07/27/2019 Backache, unspecified 06/19/20082018 Overview: Patient has degenerative disc disease and a slipped disc in her back. The symptoms began July 2011. 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 She sees Dr. Salter at [facility] for both of these issues. Patient has multiple questions regarding anesthesia during delivery due to her back issues. I have asked her to discuss this with Dr. Salter at an upcoming appointment and have him dictate a letter to Dr. Anderson with any concerns he may have. documented as of this encounter (statuses as of 07/09/2023) [facility] History of Past illness Narrative* Problem Noted Date Diagnosed Date Resolved Date Attention and concentration deficit 03/19/2015 07/27/2019 Esophageal reflux 02/21/2015 07/27/2019 Routine gynecological examination 08/10/2014 07/27/2019 Overview: [facility] Screening for diabetes mellitus (DM) 08/10/2014 07/27/2019 Need for lipid screening 08/10/201403/2019 Fibromyalgia 05/07/2014 07/27/2019 Other acquired deformity of toe 05/20/2009 07/27/2019 Backache, unspecified 06/19/20082018 Overview: Patient has degenerative disc disease and a slipped disc in her back. The symptoms began July 2011. 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 She sees Dr. Salter at [facility] for both of these issues. Patient has multiple questions regarding anesthesia during delivery due to her back issues. I have asked her to discuss this with Dr. Salter at an upcoming appointment and have him dictate a letter to Dr. Anderson with any concerns he may have. documented as of this encounter (statuses as of 09/16/2023) [facility] History of Past illness Narrative* Problem Noted Date Diagnosed Date Resolved Date Attention and concentration deficit 03/19/2015 07/27/2019 Esophageal reflux 02/21/2015 07/27/2019 Routine gynecological examination 08/10/2014 07/27/2019 Overview: [facility] Screening for diabetes mellitus (DM) 08/10/2014 07/27/2019 Need for lipid screening 08/10/201403/2019 Fibromyalgia 05/07/2014 07/27/2019 Other acquired deformity of toe 05/20/2009 07/27/2019 Backache, unspecified 06/19/20082018 Overview: Patient has degenerative disc disease and a slipped disc in her back. The symptoms began July 2011. 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 She sees Dr. Salter at [facility] for both of these issues. Patient has multiple questions regarding anesthesia during delivery due to her back issues. I have asked her to discuss this with Dr. Salter at an upcoming appointment and have him dictate a letter to Dr. Anderson with any concerns he may have. documented as of this encounter (statuses as of 09/16/2023) [facility] History of Past illness Narrative* Problem Noted Date Diagnosed Date Resolved Date Attention and concentration deficit 03/19/2015 07/27/2019 Esophageal reflux 02/21/2015 07/27/2019 Routine gynecological examination 08/10/2014 07/27/2019 Overview: [facility] Screening for diabetes mellitus (DM) 08/10/2014 07/27/2019 Need for lipid screening 08/10/201403/2019 Fibromyalgia 05/07/2014 07/27/2019 Other acquired deformity of toe 05/20/2009 07/27/2019 Backache, unspecified 06/19/20082018 Overview: Patient has degenerative disc disease and a slipped disc in her back. The symptoms began July 2011. 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 She sees Dr. Salter at [facility] for both of these issues. Patient has multiple questions regarding anesthesia during delivery due to her back issues. I have asked her to discuss this with Dr. Salter at an upcoming appointment and have him dictate a letter to Dr. Anderson with any concerns he may have. documented as of this encounter (statuses as of 09/26/2023) [facility]04-[facility]2015 History of Past illness Narrative* Problem Noted Date Diagnosed Date Resolved Date Attention and concentration deficit 03/19/2015 07/27/2019 Esophageal reflux 02/21/2015 07/27/2019 Routine gynecological examination 08/10/2014 07/27/2019 Overview: [facility] Screening for diabetes mellitus (DM) 08/10/2014 07/27/2019 Need for lipid screening 08/10/201403/2019 Fibromyalgia 05/07/2014 07/27/2019 Other acquired deformity of toe 05/20/2009 07/27/2019 Backache, unspecified 06/19/20082018 Overview: Patient has degenerative disc disease and a slipped disc in her back. The symptoms began July 2011. 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 She sees Dr. Salter at [facility] for both of these issues. Patient has multiple questions regarding anesthesia during delivery due to her back issues. I have asked her to discuss this with Dr. Salter at an upcoming appointment and have him dictate a letter to Dr. Anderson with any concerns he may have. documented as of this encounter (statuses as of 10/04/2023) [facility] History of Past illness Narrative* Problem Noted Date Diagnosed Date Resolved Date Attention and concentration deficit 03/19/2015 07/27/2019 Esophageal reflux 02/21/2015 07/27/2019 Routine gynecological examination 08/10/2014 07/27/2019 Overview: Sees [facility] Screening for diabetes mellitus (DM) 08/10/2014 07/27/2019 Need for lipid screening 08/10/201403/2019 Fibromyalgia 05/07/2014 07/27/2019 Other acquired deformity of toe 05/20/2009 07/27/2019 Backache, unspecified 06/19/20082018 Overview: Patient has degenerative disc disease and a slipped disc in her back. The symptoms began July 2011. 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 She sees Dr. Salter at [facility] for both of these issues. Patient has multiple questions regarding anesthesia during delivery due to her back issues. I have asked her to discuss this with Dr. Salter at an upcoming appointment and have him dictate a letter to Dr. Anderson with any concerns he may have. 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 Malignant neoplasm of thyroid gland Sialoadenitis of submandibular gland Sialoadenitis documented in this encounter [facility] note* Diagnosis Sialadenitis- Primary Sialoadenitis documented in this encounter [facility] note* Diagnosis SI (sacroiliac) joint dysfunction- Primary Disorders of sacrum Lumbar degenerative disc disease Degeneration of lumbar or lumbosacral intervertebral disc documented in this encounter [facility] note* Diagnosis SI (sacroiliac) joint dysfunction- Primary Disorders of sacrum Sacroiliitis, not elsewhere classified (HCC) Sacroiliitis, not elsewhere classified documented in this encounter [facility] note* Diagnosis Sialadenitis Sialoadenitis documented in this encounter [facility] note* Diagnosis SI (sacroiliac) joint dysfunction- Primary Disorders of sacrum Sacroiliitis, not elsewhere classified (HCC) Sacroiliitis, not elsewhere classified SI (sacroiliac) joint dysfunction Disorders of sacrum Sacroiliitis, not elsewhere classified (HCC) Sacroiliitis, not elsewhere classified documented in this encounter [facility] note* Diagnosis SI (sacroiliac) joint dysfunction- Primary Disorders of sacrum Sacroiliitis, not elsewhere classified (HCC) Sacroiliitis, not elsewhere classified documented in this encounter [facility] note* Diagnosis Sialadenitis- Primary Sialoadenitis documented in this encounter [facility] note* Diagnosis SI (sacroiliac) joint dysfunction- Primary Disorders of sacrum Sacroiliitis, not elsewhere classified (HCC) Sacroiliitis, not elsewhere classified SI (sacroiliac) joint dysfunction Disorders of sacrum Sacroiliitis, not elsewhere classified (HCC) Sacroiliitis, not elsewhere classified documented in this encounter [facility] note* Diagnosis Hypertension, essential- Primary Unspecified essential hypertension Weight gain Abnormal weight gain Primary thyroid papillary carcinoma (HCC) Malignant neoplasm of thyroid gland Encounter for lipid screening for cardiovascular disease Screening for lipoid disorders Screening for diabetes mellitus SI (sacroiliac) joint dysfunction Disorders of sacrum Sacroiliitis, not elsewhere classified (HCC) Sacroiliitis, not elsewhere classified documented in this encounter [facility] note* Diagnosis SI (sacroiliac) joint dysfunction Disorders of sacrum Lumbar degenerative disc disease Degeneration of lumbar or lumbosacral intervertebral disc [facility] Diagnosis 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 Postsurgical hypothyroidism Sialoadenitis of submandibular gland Sialoadenitis [facility] Diagnosis Bloating- Primary Flatulence, eructation, and gas pain [facility] Diagnosis SI (sacroiliac) joint dysfunction Disorders of sacrum Lumbar degenerative disc disease Degeneration of lumbar or lumbosacral intervertebral disc [facility]* Diagnosis Lumbar degenerative disc disease- Primary Degeneration of lumbar or lumbosacral intervertebral disc SI (sacroiliac) joint dysfunction Disorders of sacrum Sacroiliitis, not elsewhere classified (HCC) Sacroiliitis, not elsewhere classified [facility]* Diagnosis Bacterial sinusitis- Primary Unspecified sinusitis (chronic) [facility]* Diagnosis Lumbar degenerative disc disease- Primary Degeneration of lumbar or lumbosacral intervertebral disc SI (sacroiliac) joint dysfunction Disorders of sacrum Sacroiliitis, not elsewhere classified (HCC) Sacroiliitis, not elsewhere classified SI (sacroiliac) joint dysfunction Disorders of sacrum Sacroiliitis, not elsewhere classified (HCC) Sacroiliitis, not elsewhere classified documented in this [facility]* Diagnosis SI (sacroiliac) joint dysfunction Disorders of sacrum Lumbar degenerative disc disease Degeneration of lumbar or lumbosacral intervertebral disc [facility]* Diagnosis Hypertension, essential- Primary Unspecified essential hypertension Migraine without aura and without status migrainosus, not intractable Migraine without aura, without mention of intractable migraine without mention of status migrainosus Primary thyroid papillary carcinoma (HCC) Malignant neoplasm of thyroid gland Post-surgical hypothyroidism Postsurgical hypothyroidism Bipolar 1 disorder (HCC) Bipolar I disorder, most recent episode (or current) unspecified PTSD (post-traumatic stress disorder) Posttraumatic stress disorder Anxiety, generalized Generalized anxiety disorder Exercise-induced asthma Exercise induced bronchospasm Vitamin D deficiency Unspecified vitamin D deficiency Acute right-sided low back pain without sciatica Vomiting, persistent, in adult Persistent vomiting Obesity, Class I, BMI 30-34.9 Obesity, unspecified Encounter for screening for diabetes mellitus Screening for diabetes mellitus documented in this encounter [facility]* Diagnosis Post-surgical hypothyroidism- Primary Postsurgical hypothyroidism Adverse effect of treatment, subsequent encounter Adverse effect of treatment, initial encounter documented in this encounter [facility] note* Diagnosis SI (sacroiliac) joint dysfunction Disorders of sacrum Lumbar degenerative disc disease Degeneration of lumbar or lumbosacral intervertebral disc documented in this encounter [facility] note* Diagnosis SI (sacroiliac) joint dysfunction- Primary Disorders of sacrum Sacroiliitis, not elsewhere classified (HCC) Sacroiliitis, not elsewhere classified SI (sacroiliac) joint dysfunction Disorders of sacrum Sacroiliitis, not elsewhere classified (HCC) Sacroiliitis, not elsewhere classified documented in this encounter [facility] note* Diagnosis Spinal stenosis of lumbar region, unspecified whether neurogenic claudication present- Primary SI (sacroiliac) joint dysfunction Disorders of sacrum Lumbar degenerative disc disease Degeneration of lumbar or lumbosacral intervertebral disc documented in this encounter [facility] note* Diagnosis SI (sacroiliac) joint dysfunction- Primary Disorders of sacrum SI (sacroiliac) joint dysfunction Disorders of sacrum documented in this encounter [facility] note* Diagnosis Adverse effect of treatment, initial encounter SI (sacroiliac) joint dysfunction Disorders of sacrum documented in this encounter [facility] note* Diagnosis Sore throat- Primary Acute pharyngitis Bronchitis Bronchitis, not specified as acute or chronic Lower resp. tract infection Other diseases of respiratory system, not elsewhere classified SI (sacroiliac) joint dysfunction Disorders of sacrum documented in this encounter [facility] note* Diagnosis Plantar wart of left foot- Primary Plantar wart SI (sacroiliac) joint dysfunction Disorders of sacrum documented in this encounter [facility] for referral (narrative)* Consultation (Routine) - New Request Specialty Diagnoses / Procedures Referred By Kin samuel Referred To Contact Otolaryngology Diagnoses Sialoadenitis of submandibular gland Tawanna Rivera MD [address] [address] Ely Tapia MD [address] [place] [address] Referral ID Status Reason Start Date Expiration Date V isits Requested Visits Authorized [id number] New Request 03/18/2022 04/12/2023 1 1 * Radiology (Routine) - New Request Specialty Diagnoses / Procedures Referred By Kin samuel Referred To Contact Diagnoses Papillary thyroid carcinoma Procedures [facility] Tawanna Rivera MD [address] [place] [address] Referral ID Status Reason Start Date Expiration Date V isits Requested Visits Authorized [id number] New Request 03/18/2022 04/12/[address] [facility] Summary Purpose Family History No Family History Records FoundNo Family History Records FoundNo Family History Records FoundNo Family History Records FoundNo Family History Records FoundNo Family History Records FoundNo Family History Records FoundNo Family History Records FoundNo Family History Records Found Advance Directives No Advanced Directives Records FoundDocuments on File Type Date Recorded Patient Mfts Expl anation Advance Directive(s) Advance Directive(s) 12/16/2021 1:10 PM Advance Directive(s) 10/23/2021 11:57 AM Advance Directive(s) 10/15/2021 2:39 PM Advance Directive(s) 01/30/2021 10:15 AM Advance Directive(s) 12/30/2020 11:35 AM Advance Directive(s) 08/22/2020 9:04 AM Advance Directive(s) 08/19/2020 11:25 AM Advance Directive(s) 07/31/2019 11:39 AM Advance Directive(s) 07/27/2019 11:13 AM Advance Directive(s) 07/27/2019 10:42 AM Advance Directive(s) 04/04/2019 9:36 AM Advance Directive(s) 04/03/2019 9:15 AM Advance Directive(s) 12/02/2017 8:50 AM Documents on File Type Date Recorded Patient Mfts Expl anation Advance Directive(s) Advance Directive(s) 05/01/2022 11:22 AM Advance Directive(s) 12/16/2021 1:10 PM Advance Directive(s) 10/23/2021 11:57 AM Advance Directive(s) 10/15/2021 2:39 PM Advance Directive(s) 01/30/2021 10:15 AM Advance Directive(s) 12/30/2020 11:35 AM Advance Directive(s) 08/22/2020 9:04 AM Advance Directive(s) 08/19/2020 11:25 AM Advance Directive(s) 07/31/2019 11:39 AM Advance Directive(s) 07/27/2019 11:13 AM Advance Directive(s) 07/27/2019 10:42 AM Advance Directive(s) 04/04/2019 9:36 AM Advance Directive(s) 04/03/2019 9:15 AM Advance Directive(s) 12/02/2017 8:50 AM Documents on File Type Date Recorded Patient Mfts Expl anation Advance Directive(s) Advance Directive(s) 05/21/2022 12:52 PM Advance Directive(s) 05/14/2022 6:24 PM Advance Directive(s) 05/01/2022 11:22 AM Advance Directive(s) 12/16/2021 1:10 PM Advance Directive(s) 10/23/2021 11:57 AM Advance Directive(s) 10/15/2021 2:39 PM Advance Directive(s) 01/30/2021 10:15 AM Advance Directive(s) 12/30/2020 11:35 AM Advance Directive(s) 08/22/2020 9:04 AM Advance Directive(s) 08/19/2020 11:25 AM Advance Directive(s) 07/31/2019 11:39 AM Advance Directive(s) 07/27/2019 11:13 AM Advance Directive(s) 07/27/2019 10:42 AM Advance Directive(s) 04/04/2019 9:36 AM Advance Directive(s) 04/03/2019 9:15 AM Advance Directive(s) 12/02/2017 8:50 AM Latest Code Status on File Code Status Date Activated Date Inactivated Comments Full Code 06/05/2022 8:03 AM Documents on File Type Date Recorded Patient Mfts Expl anation Advance Directive(s) Advance Directive(s) 06/04/2022 4:29 PM Advance Directive(s) 05/21/2022 12:52 PM Advance Directive(s) 05/14/2022 6:24 PM Advance Directive(s) 05/01/2022 11:22 AM Advance Directive(s) 12/16/2021 1:10 PM Advance Directive(s) 10/23/2021 11:57 AM Advance Directive(s) 10/15/2021 2:39 PM Advance Directive(s) 01/30/2021 10:15 AM Advance Directive(s) 12/30/2020 11:35 AM Advance Directive(s) 08/22/2020 9:04 AM Advance Directive(s) 08/19/2020 11:25 AM Advance Directive(s) 07/31/2019 11:39 AM Advance Directive(s) 07/27/2019 11:13 AM Advance Directive(s) 07/27/2019 10:42 AM Advance Directive(s) 04/04/2019 9:36 AM Advance Directive(s) 04/03/2019 9:15 AM Advance Directive(s) 12/02/2017 8:50 AM Documents on File Type Date Recorded Patient Mfts Expl anation Advance Directive(s) 07/27/2019 10:42 AM Documents on File Type Date Recorded Patient Mfts Expl anation Advance Directive(s) 07/27/2019 10:42 AM Latest Code Status on File Code Status Date Activated Date Inactivated Comments Full Code 06/05/2022 8:03 AM Reason for Referral Specialty Diagnoses / Procedures Referred By Kin samuel Referred To Contact Diagnoses Sialadenitis Procedures MRI SIALOGRAM TN MRI, FACE, NECK, COMBO Karen Land, STAFF DEVELOPMENT MANAGER-PUBLIC RECORDS OFFICER [address] [place] [address] Referral ID Status Reason Start Date Expiration Date Visits Requested Visits Authorized [id number] Authorized - Leon 03/26/2022 04/20/2023 1 1 Referral ID Status Reason Start Date Expiration Date Visits Re quested Visits Authorized [id number] Closed 03/26/2022 04/20/2023 1 1 Specialty Diagnoses / Procedures Referred By Kin samuel Referred To Contact Christine Dean PA-C [address] [place] [address] Referral ID Status Reason Start Date Expiration Date Visits Re quested Visits Authorized [id number] Closed 1 1 Specialty Diagnoses / Procedures Referred By Contac t Referred To Contact Diagnoses Papillary thyroid carcinoma Procedures [facility] Tawanna Rivera MD [address] [address] Referral ID Status Reason Start Date Expiration Date V isits Requested Visits Authorized [id number] New Request 09/16/2022 10/11/2023 1 1 Specialty Diagnoses / Procedures Referred By Contac t Referred To Contact Gastroenterology Diagnoses Bloating Procedures CONSULT TO GASTROENTEROLOGY OFFICE/OUTPATIENT NEW HIGH MDM 60-74 MINUTES Christine Dean PA-C [address] [place] [address] Referral ID Status Reason Start Date Expiration Date Visits Requested Visits Authorized [id number] Authorized PCP Requested Referral 2 10/12/2023 1 1 Specialty Diagnoses / Procedures Referred By Contac t Referred To Contact CT IMAGING Diagnoses Adverse effect of treatment, initial encounter Procedures CTA CHEST (NONGATED) W IVCON CT ANGIOGRAPHY CHEST W/CONTRAST/NONCONTRAST Renard Almodovar, KIMBERLEY.PUBLIC RECORDS OFFICER [address] [place] [address] Ct Imaging Referral ID Status Reason Start Date Expiration Date Visits Requested Visits Authorized [id number] Waiting for Online Response Auto-Genera ciro Referral Patient Cleared - Admin/Chair man/Directo r advise to proceed 04/27/2023 05/26/2024 1 1 Specialty Diagnoses / Procedures Referred By Contac t Referred To Contact CT IMAGING Diagnoses Adverse effect of treatment, initial encounter Procedures CTA NECK W IVCON CT ANGIOGRAPHY NECK W/CONTRAST/NONCONTRAST Renard Almodovar, STAFF DEVELOPMENT MANAGER.PUBLIC RECORDS OFFICER [address] [place] [address] Ct Imaging Referral ID Status Reason Start Date Expiration Date Visits Requested Visits Authorized [id number] Additional Clinical Info Needed Auto-Genera ciro Referral Patient Cleared - Admin/Chair man/Directo r advise to proceed 04/27/2023 05/26/2024 1 1 Specialty Diagnoses / Procedures Referred By Contac t Referred To Contact CT IMAGING Diagnoses Adverse effect of treatment, initial encounter Procedures CTA NECK W IVCON CT ANGIOGRAPHY NECK W/CONTRAST/NONCONTRAST Renard Almodovar APRN.PUBLIC RECORDS OFFICER [address] [place] [address] [place] [address] Referral ID Status Reason Start Date Expiration Date V isits Requested Visits Authorized [id number] Denied Auto-Generat ed Referral Patient Cleared - Admin/Chairm an/Director advise to proceed or did not respond 04/27/2023 06/26/2023 1 0 Medications Administered Section Inactive Administered Medications - up to 3 most recent administrations Medication Order MAR Action Action Date Dose Rate Site fentaNYL 50 mcg/mL injection (SUBLIMAZE) X (OR/PROCEDURE) PRN, Starting on Wed02/12/23 at 1339, Until Wed02/12/23 at 1401, Intraprocedure Given 02/12/2023 1:42 PM EDT 50 mcg Additional Source Comments INFORMATION SOURCE (unrecogn ized section and content) DATE CREATED AUTHOR AUTHOR'S ORGANIZ ATION 05/01/2020 [facility] DATE CREATED AUTHOR AUTHOR'S ORGANIZ ATION 02/09/2021 [facility] DATE CREATED AUTHOR AUTHOR'S ORGANIZ ATION 10/31/2022 [facility] DATE CREATED AUTHOR AUTHOR'S ORGANIZ ATION 03/19/2023 [facility] DATE CREATED AUTHOR AUTHOR'S ORGANIZ ATION 03/31/2023 [facility] DATE CREATED AUTHOR AUTHOR'S ORGANIZ ATION 05/03/2023 [facility] DATE CREATED AUTHOR AUTHOR'S ORGANIZ ATION 11/13/2023 [facility] DATE CREATED AUTHOR AUTHOR'S ORGANIZ ATION 12/22/2023 [facility] Reason for Visit (unrecogniz ed section and content) Reason Comments Bloody Stool Specialty Diagnoses / Procedures Referred By Kin samuel Referred To Contact [facility] Diagnoses Bloody stool Procedures CAPSULE ENDOSCOPY SMALL BOWEL GI TRC IMG INTRALUMINAL ESOPHAGUS-ILEUM W/I&R Susanne Potts APRN.PUBLIC RECORDS OFFICER [address] [place] [address] [facility] [address] [place] [address] Referral ID Status Reason Start Date Expiration Date V isits Requested Visits Authorized [id number] Closed Auto-Generate d Referral 12/28/2021 12/28/2022 1 1 Reason Comments Follow-up PTC Other Swelling on right si de of neck-goes up to right jaw- started a month ago, it is painful, was checked at urgent care and was started on prednisone and pain medication. Reason Comments New Patient Specialty Diagnoses / Procedures Referred By Contbrock t Referred To Contact Otolaryngology Diagnoses Sialoadenitis of submandibular gland Tawanna Rivera MD [address] [place] [address] Ely Tapia MD [address] [place] [address] Referral ID Status Reason Start Date Expiration Date V isits Requested Visits Authorized [id number] New Request 03/18/2022 04/12/2023 1 1 Reason Comments Pain Reason Comments Appointment Reschedule Injection Specialty Diagnoses / Procedures Referred By Contac t Referred To Contact Diagnoses Sialadenitis Procedures MRI SIALOGRAM [place] MRI, FACE, NECK, COMBO Karen Land, KIMBERLEY-PUBLIC RECORDS OFFICER [address] [place] [address] Referral ID Status Reason Start Date Expiration Date Visits Re quested Visits Authorized [id number] Closed 03/26/2022 04/20/2023 1 1 Reason Comments Post Op Visit Reason Comments Hypertension Patient states home blood pressure has been elevated Weight Problem Patient has had weig ht gain Reason Comments Results Reason Comments Follow-up Pt states she has be en having throat pain on the left side. Reason Comments Pain Refill Request Reason Comments Head Congestion Cough, REINOSO x6 days Reason Comments ER F/U WC Reason Comments Outside [id number] Ordered Reason Comments Consult GI Specialty Diagnoses / Procedures Referred By Contac t Referred To Contact Diagnoses SI (sacroiliac) joint dysfunction Sacroiliitis, not elsewhere classified (HCC) Procedures INJECT SI JOINT ARTHRGRPHY&/ANES/STEROID W/JAYCE INJECTION SACROILIAC JOINT, ARTHROGRAPHY AND/OR ANESTHETIC/STEROID [facility] [address] [place] [address] Referral ID Status Reason Start Date Expiration Date Visits Re quested Visits Authorized [id number] 1 1 Reason Comments F/U 6 months Specialty Diagnoses / Procedures Referred By Kin samuel Referred To Contact Diagnoses SI (sacroiliac) joint dysfunction Sacroiliitis, not elsewhere classified (HCC) Procedures DSTRJ NEUROLYTIC AGENT OTHER PERIPHERAL NERVE RADIOFREQUENCY ABLATION NERVE SPINAL [facility] [address] [place] [address] Referral ID Status Reason Start Date Expiration Date Visits Re quested Visits Authorized [id number] 1 1 Reason Comments ER FU apt Reason Comments Edema Hands, feet, face Reason Comments Injection Followup Refill Request Pain Reason Comments Refill Request Pain Injection Followup Reason Comments Radiology CT Specialty Diagnoses / Procedures Referred By Kin samuel Referred To Contact CT IMAGING Diagnoses Adverse effect of treatment, initial encounter Procedures CTA NECK W IVCON CT ANGIOGRAPHY NECK W/CONTRAST/NONCONTRAST Renard Almodovar, KIMBERLEY.PUBLIC RECORDS OFFICER [address] [place] [address] [address] [address] [facility] [place] [address] Referral ID Status Reason Start Date Expiration Date V isits Requested Visits Authorized [id number] Denied Auto-Generat ed Referral Patient Cleared - Admin/Chairm an/Director advise to proceed or did not respond 04/27/2023 06/26/2023 1 0 Reason Comments Cough X 2 weeksSore throat x 2 days Reason Comments New Patient Foreign Body Care Teams (unrecognized sec tion and content) Automatic Bandsaw Tender Relationship Specialty Start Date End Date Nagi Red MD [address] [place], [place] [id number] [facility] 03/29/14 Automatic Bandsaw Tender Relationship Specialty Start Date End Date Nagi Red MD [address] [place], [place] [phone] [facility] 03/29/14 Automatic Bandsaw Tender Relationship Specialty Start Date End Date Nagi Red MD [address] [place], [place] [id number] PCP - General Family Medicine 10/16/20 Automatic Bandsaw Tender Relationship Specialty Start Date End Date Nagi Red MD [facility] [place] [address] PCP - General Family Medicine 10/16/20 Automatic Bandsaw Tender Relationship Specialty Start Date End Date Nagi Red MD [address] [place] [address], [place] [address] Family Practice 03/29/14 Automatic Bandsaw Tender Relationship Specialty Start Date End Date Nagi Red MD [address] [place] [address], [place] [address] Family Practice 03/29/14 Automatic Bandsaw Tender Relationship Specialty Start Date End Date Nagi Red MD [address] [place] [address] , [place] [address] PCP - General Family Medicine 10/16/20 Automatic Bandsaw Tender Relationship Specialty Start Date End Date Nagi Red MD [address] [place] [address] , [place] [address] PCP - General Family Medicine 10/16/20 Automatic Bandsaw Tender Relationship Specialty Start Date End Date Nagi Red MD [address] [place] [address], [place] [address] Family Practice 03/29/14 Automatic Bandsaw Tender Relationship Specialty Start Date End Date Nagi Red MD [address] [place] [address], [place] [address] Family Practice 03/29/14 Automatic Bandsaw Tender Relationship Specialty Start Date End Date Nagi Red MD [address] [place] [address], [place] [address] PCP - General Family Practice 07/06/22 aNgi Red MD [address] [place] [address], [place] [address] Family Practice 03/29/14 Automatic Bandsaw Tender Relationship Specialty Start Date End Date Nagi Red MD [facility] [place] [address] PCP - General Family Practice 07/06/22 Nagi Red MD [address] [place] [address], [place] [address] Family Practice 03/29/14 Automatic Bandsaw Tender Relationship Specialty Start Date End Date Nagi Red MD [address] [place] [address] , [place] [address] PCP - General Family Medicine 10/16/20 Automatic Bandsaw Tender Relationship Specialty Start Date End Date Nagi Red MD [address] [place] [address], [place] [address] PCP - General Family Medicine 07/06/22 Nagi Red MD [address] [place] [address], [place] [address] Family Medicine 03/29/14 Automatic Bandsaw Tender Relationship Specialty Start Date End Date Nagi Red MD [address] [place] [address], [place] [address] PCP - General Family Medicine 07/06/22 Nagi Red MD [address] [place] [address], [place] [address] Family Medicine 03/29/14 Automatic Bandsaw Tender Relationship Specialty Start Date End Date Nagi Red MD [address] [place] [address], [place] [address] PCP - General Family Medicine 07/06/22 Nagi Red MD [address] [place] [address], [place] [address] Family Medicine 03/29/14 Automatic Bandsaw Tender Relationship Specialty Start Date End Date Nagi Red MD [address] [place] [address], [place] [address] PCP - General Family Medicine 07/06/22 Nagi Red MD [address] [facility] [place] [address] Family Medicine 03/29/14 Automatic Bandsaw Tender Relationship Specialty Start Date End Date Nagi Red MD [address] [facility] [place] [address] PCP - General Family Medicine 07/06/22 Nagi Red MD [address] [place] [address], [place] [address] Family Medicine 03/29/14 Automatic Bandsaw Tender Relationship Specialty Start Date End Date Nagi Red MD [address] [place] [address], [place] [address] PCP - General Family Medicine 07/06/22 Nagi Red MD [address] [place] [address], [place] [address] Family Medicine 03/29/14 Automatic Bandsaw Tender Relationship Specialty Start Date End Date Nagi Red MD [address] [place] [address], [place] [address] PCP - General Family Medicine 07/06/22 Nagi Red MD [address] [place] [address], [place] [address] Family Medicine 03/29/14 Automatic Bandsaw Tender Relationship Specialty Start Date End Date Nagi Red MD [facility] [place] [address] PCP - General Family Medicine 07/06/22 Nagi Red MD [address] [place] [address], [place] [address] Family Medicine 03/29/14 Automatic Bandsaw Tender Relationship Specialty Start Date End Date Nagi Red MD [address] [facility] [place] [address] PCP - General Family Medicine 07/06/22 Nagi Red MD [address] [facility] [place] [address] Family Medicine 03/29/14 Automatic Bandsaw Tender Relationship Specialty Start Date End Date Nagi Red MD [address] [facility] [place] [address] PCP - General Family Medicine 07/06/22 Nagi Red MD [address] [facility] [place] [address] Family Medicine 03/29/14 Automatic Bandsaw Tender Relationship Specialty Start Date End Date Nagi Red MD [address] [facility] [place] [address] PCP - General Family Medicine 07/06/22 Nagi Red MD [address] [facility] [place] [address] Family Medicine 03/29/14 Automatic Bandsaw Tender Relationship Specialty Start Date End Date Nagi Red MD [address] [facility] [place] [address] PCP - General Family Medicine 07/06/22 Nagi Red MD [address] [facility] [place] [address] Family Medicine 03/29/14 Automatic Bandsaw Tender Relationship Specialty Start Date End Date Nagi Red MD [address] [facility] [place] [address] PCP - General Family Medicine 07/06/22 Nagi Red MD [address] [facility] [place] [address] Family Medicine 03/29/14 Automatic Bandsaw Tender Relationship Specialty Start Date End Date Nagi Red MD [address] [facility] [place] [address] PCP - General Family Medicine 07/06/22 Nagi Red MD [address] [facility] [place] [address] Family Medicine 03/29/14 Automatic Bandsaw Tender Relationship Specialty Start Date End Date Nagi Red MD [address] [facility] [place] [address] PCP - General Family Medicine 07/06/22 Nagi Red MD [address] [facility] [place] [address] Family Medicine 03/29/14 Automatic Bandsaw Tender Relationship Specialty Start Date End Date Nagi Red MD [address] [facility] [place] [address] PCP - General Family Medicine 07/06/22 Nagi Red MD [address] [facility] [place] [address] Family Medicine 03/29/14 Automatic Bandsaw Tender Relationship Specialty Start Date End Date Nagi Red MD [address] [facility] [place] [address] PCP - General Family Medicine 07/06/22 Nagi Red MD [address] [facility] [place] [address] Family Medicine 03/29/14 Automatic Bandsaw Tender Relationship Specialty Start Date End Date Nagi Red MD [address] [place] [address] PCP - General Family Medicine 07/06/22 Nagi Red MD [address] [place] [address] Family Medicine 03/29/14 Source Comments (unrecognize d section and content) In the event this informatio n is protected by the Federal Confidentiality of Alcohol and Drug Abuse Patient Records regulations: The Federal rules restrict any use of the information to criminally investigate or prosecute any alcohol or drug abuse patient.[facility]In the event this information is protected by the Federal Confidentiality of Alcohol and Drug Abuse Patient Records regulations: The Federal rules restrict any use of the information to criminally investigate or prosecute any alcohol or drug abuse patient.[facility]healthIn the event this information is protected by the Federal Confidentiality of Alcohol and Drug Abuse Patient Records regulations: The Federal rules restrict any use of the information to criminally investigate or prosecute any alcohol or drug abuse patient.[facility]In the event this information is protected by the Federal Confidentiality of Alcohol and Drug Abuse Patient Records regulations: The Federal rules restrict any use of the information to criminally investigate or prosecute any alcohol or drug abuse patient.[facility]In the event this information is protected by the Federal Confidentiality of Alcohol and Drug Abuse Patient Records regulations: The Federal rules restrict any use of the information to criminally investigate or prosecute any alcohol or drug abuse patient.[facility]In the event this information is protected by the Federal Confidentiality of Alcohol and Drug Abuse Patient Records regulations: The Federal rules restrict any use of the information to criminally investigate or prosecute any alcohol or drug abuse patient.[facility]healthIn the event this information is protected by the Federal Confidentiality of Alcohol and Drug Abuse Patient Records regulations: The Federal rules restrict any use of the information to criminally investigate or prosecute any alcohol or drug abuse patient.[facility]healthIn the event this information is protected by the Federal Confidentiality of Alcohol and Drug Abuse Patient Records regulations: The Federal rules restrict any use of the information to criminally investigate or prosecute any alcohol or drug abuse patient.[facility]In the event this information is protected by the Federal Confidentiality of Alcohol and Drug Abuse Patient Records regulations: The Federal rules restrict any use of the information to criminally investigate or prosecute any alcohol or drug abuse patient.[facility]In the event this information is protected by the Federal Confidentiality of Alcohol and Drug Abuse Patient Records regulations: The Federal rules restrict any use of the information to criminally investigate or prosecute any alcohol or drug abuse patient.[facility]In the event this information is protected by the Federal Confidentiality of Alcohol and Drug Abuse Patient Records regulations: The Federal rules restrict any use of the information to criminally investigate or prosecute any alcohol or drug abuse patient.[facility]In the event this information is protected by the Federal Confidentiality of Alcohol and Drug Abuse Patient Records regulations: The Federal rules restrict any use of the information to criminally investigate or prosecute any alcohol or drug abuse patient.[facility]In the event this information is protected by the Federal Confidentiality of Alcohol and Drug Abuse Patient Records regulations: The Federal rules restrict any use of the information to criminally investigate or prosecute any alcohol or drug abuse patient.[facility]In the event this information is protected by the Federal Confidentiality of Alcohol and Drug Abuse Patient Records regulations: The Federal rules restrict any use of the information to criminally investigate or prosecute any alcohol or drug abuse patient.[facility]In the event this information is protected by the Federal Confidentiality of Alcohol and Drug Abuse Patient Records regulations: The Federal rules restrict any use of the information to criminally investigate or prosecute any alcohol or drug abuse patient.[facility]In the event this information is protected by the Federal Confidentiality of Alcohol and Drug Abuse Patient Records regulations: The Federal rules restrict any use of the information to criminally investigate or prosecute any alcohol or drug abuse patient.[facility]In the event this information is protected by the Federal Confidentiality of Alcohol and Drug Abuse Patient Records regulations: The Federal rules restrict any use of the information to criminally investigate or prosecute any alcohol or drug abuse patient.[facility]healthIn the event this information is protected by the Federal Confidentiality of Alcohol and Drug Abuse Patient Records regulations: The Federal rules restrict any use of the information to criminally investigate or prosecute any alcohol or drug abuse patient.[facility]healthIn the event this information is protected by the Federal Confidentiality of Alcohol and Drug Abuse Patient Records regulations: The Federal rules restrict any use of the information to criminally investigate or prosecute any alcohol or drug abuse patient.[facility]healthIn the event this information is protected by the Federal Confidentiality of Alcohol and Drug Abuse Patient Records regulations: The Federal rules restrict any use of the information to criminally investigate or prosecute any alcohol or drug abuse patient.[facility]healthIn the event this information is protected by the Federal Confidentiality of Alcohol and Drug Abuse Patient Records regulations: The Federal rules restrict any use of the information to criminally investigate or prosecute any alcohol or drug abuse patient.[facility]In the event this information is protected by the Federal Confidentiality of Alcohol and Drug Abuse Patient Records regulations: The Federal rules restrict any use of the information to criminally investigate or prosecute any alcohol or drug abuse patient.[facility]In the event this information is protected by the Federal Confidentiality of Alcohol and Drug Abuse Patient Records regulations: The Federal rules restrict any use of the information to criminally investigate or prosecute any alcohol or drug abuse patient.[facility]In the event this information is protected by the Federal Confidentiality of Alcohol and Drug Abuse Patient Records regulations: The Federal rules restrict any use of the information to criminally investigate or prosecute any alcohol or drug abuse patient.[facility]In the event this information is protected by the Federal Confidentiality of Alcohol and Drug Abuse Patient Records regulations: The Federal rules restrict any use of the information to criminally investigate or prosecute any alcohol or drug abuse patient.[facility]In the event this information is protected by the Federal Confidentiality of Alcohol and Drug Abuse Patient Records regulations: The Federal rules restrict any use of the information to criminally investigate or prosecute any alcohol or drug abuse patient.[facility]In the event this information is protected by the Federal Confidentiality of Alcohol and Drug Abuse Patient Records regulations: The Federal rules restrict any use of the information to criminally investigate or prosecute any alcohol or drug abuse patient.[facility]In the event this information is protected by the Federal Confidentiality of Alcohol and Drug Abuse Patient Records regulations: The Federal rules restrict any use of the information to criminally investigate or prosecute any alcohol or drug abuse patient.[facility]In the event this information is protected by the Federal Confidentiality of Alcohol and Drug Abuse Patient Records regulations: The Federal rules restrict any use of the information to criminally investigate or prosecute any alcohol or drug abuse patient.[facility]In the event this information is protected by the Federal Confidentiality of Alcohol and Drug Abuse Patient Records regulations: The Federal rules restrict any use of the information to criminally investigate or prosecute any alcohol or drug abuse patient.[facility]In the event this information is protected by the Federal Confidentiality of Alcohol and Drug Abuse Patient Records regulations: The Federal rules restrict any use of the information to criminally investigate or prosecute any alcohol or drug abuse patient.[facility]In the event this information is protected by the Federal Confidentiality of Alcohol and Drug Abuse Patient Records regulations: The Federal rules restrict any use of the information to criminally investigate or prosecute any alcohol or drug abuse patient.[facility]In the event this information is protected by the Federal Confidentiality of Alcohol and Drug Abuse Patient Records regulations: The Federal rules restrict any use of the information to criminally investigate or prosecute any alcohol or drug abuse patient.[facility]In the event this information is protected by the Federal Confidentiality of Alcohol and Drug Abuse Patient Records regulations: The Federal rules restrict any use of the information to criminally investigate or prosecute any alcohol or drug abuse patient.[facility]In the event this information is protected by the Federal Confidentiality of Alcohol and Drug Abuse Patient Records regulations: The Federal rules restrict any use of the information to criminally investigate or prosecute any alcohol or drug abuse patient.[facility]In the event this information is protected by the Federal Confidentiality of Alcohol and Drug Abuse Patient Records regulations: The Federal rules restrict any use of the information to criminally investigate or prosecute any alcohol or drug abuse patient.[facility]In the event this information is protected by the Federal Confidentiality of Alcohol and Drug Abuse Patient Records regulations: The Federal rules restrict any use of the information to criminally investigate or prosecute any alcohol or drug abuse patient.[facility]In the event this information is protected by the Federal Confidentiality of Alcohol and Drug Abuse Patient Records regulations: The Federal rules restrict any use of the information to criminally investigate or prosecute any alcohol or drug abuse patient.[facility]In the event this information is protected by the Federal Confidentiality of Alcohol and Drug Abuse Patient Records regulations: The Federal rules restrict any use of the information to criminally investigate or prosecute any alcohol or drug abuse patient.[facility] PRN Active and Recently Administ ered Medications (unrecognized section and content) FOR RECORDS PERTAINING TO PATIENTS WHO ARE OR HAVE BEEN ENROLLED IN A CHEMICAL DEPENDENCY/SUBSTANCEABUSE PROGRAM, SOME INFORMATION MAY BE OMITTED. This clinical summary was aggregated from multiple sources. Caution should be exercised in using it in the provision of clinical care. This summary normalizes information from multiple sources, and as a consequence, information in this document may materially change the coding, format and clinical context of patient data. In addition, data may be omitted in some cases. CLINICAL DECISIONS SHOULD BE BASED ON THE PRIMARY CLINICAL RECORDS. [facility]. provides no warranty or guarantee of the accuracy or completeness of information in this document.
[2023-12-31 18:27] VITALS: PULSE 74; RESP 16
== END 2023-12-31 18:28 | disposition home or self-care (01) ==
PROVIDERS: Emergency Provider Emergency Medicine; PCP Family Medicine; Visit Provider Emergency Medicine
DX: R10.31 Right lower quadrant pain (principal); I10 Essential (primary) hypertension; Z79.899 Other long term (current) drug therapy; G43.909 Migraine, unspecified, not intractable, without status migrainosus; Z90.49 Acquired absence of other specified parts of digestive tract; Z98.51 Tubal ligation status; R11.2 Nausea with vomiting, unspecified
CPT/HCPCS: 74177; 80053; 81001; 84703; 85025; 96361; 96374; 96375; 99283; J7030; Q9967; A4216; J2405

== ENCOUNTER → 2024-02-16 | Outpatient (CLI) | payer MEDICAID, SELFPAY ==
[2024-02-16 17:31] LABS: Erythrocyte Sedimentation Rate 7 mm/hr (0-30)
[2024-02-16 17:55] LABS: Vitamin B12 474 pg/mL (211-911)
[2024-02-16 18:06] LABS: CRP 6.72 mg/L (0.0-3.0); Follicle Stimulating Hormone 4.6 mIU/mL; Luteinizing Hormone 2.6 mIU/mL
[2024-02-16 18:15] LABS: Progesterone Level < 0.21 ng/mL (See Comment)
[2024-02-18 14:09] LABS: Anti-Mitochondrial AB <20.0 Units (0.0-20.0)
[2024-02-24 15:08] LABS: Albumin 3.9 g/dL (2.9-4.4); Aldosterone, Serum 4.6 ng/dL (0.0-30.0); Alpha-1-Globulins 0.2 g/dL (0.0-0.4); Alpha-2-Globulins 0.6 g/dL (0.4-1.0); Angiotensin Convert Enzyme 99 U/L (14-82); Anti-Parietal Cell AB, QN 18.8 Units (0.0-20.0); Anti-Smooth Muscle ABS 14 Units (0-19); Chromogranin A 21.8 ng/mL (0.0-101.8); Cytoplasmic Ab (C-ANCA) <1:20 titer (Neg:<1:20); Estrogen, Total, Serum 211 pg/mL (.); Gamma Globulin 1.3 g/dL (0.4-1.8); HEPATITIS B SURFACE AG Negative (Negative); Hep C Antibodies Non Reactive (Non Reactive); Hepatitis A IgM Antibody Negative (Negative); Hepatitis B Core AB IgM Negative (Negative); IgG, Quant 1330 mg/dL (586-1602); Immunoglobulin A 236 mg/dL (87-352); Immunoglobulin G, Subclass 1 690 mg/dL (248-810); Immunoglobulin G, Subclass 2 429 mg/dL (130-555); Immunoglobulin G, Subclass 3 53 mg/dL (15-102); Immunoglobulin G, Subclass 4 50 mg/dL (2-96); Immunoglobulin M 177 mg/dL (26-217); Intrinsic Factor Ab 1.1 AU/mL (0.0-1.1); PROEL- TOTAL PROTEIN 7.1 g/dL (6.0-8.5); Perinuclear Ab (P-ANCA) <1:20 titer (Neg:<1:20)
== END | disposition home or self-care (01) ==
LOC: LAB 16:13
PROVIDERS: PCP Psychiatry & Neurology Neurology; Referring Provider Internal Medicine Gastroenterology; Visit Provider Internal Medicine Gastroenterology
DX: R11.10 Vomiting, unspecified (principal)
CPT/HCPCS: 36415; 80074; 82088; 82164; 82607; 82672; 82746; 82784; 82787; 83001; 83002; 83516; 84144; 84165; 85652; 86140; 86256; 86316; 86334; 86340

== ENCOUNTER → 2024-03-06 | Outpatient (CLI) | payer MEDICAID, SELFPAY ==
--- NOTE | 2024-03-06 08:01 | US_ITS ---
STUDY: ABDOMINAL ULTRASOUND - RIGHT UPPER QUADRANT; ELASTOGRAPHY REASON FOR VISIT: Female, 33 years old. History of hepatitis. TECHNIQUE: Ultrasound evaluation of the right upper quadrant was performed with real-time and static bermeo-scale imaging. Point quantification shear wave elastography was performed (Collactive). TECHNICAL QUALITY: Adequate. COMPARISON: None. FINDINGS: Liver: The liver measures 17.5 cm. There is increased echogenicity consistent with fatty infiltration. The bile ducts are within normal limits. There is hepatic color flow. The direction of portal flow is hepatopetal. There is no demonstrated mass lesion. Median liver stiffness measured 4.9 kPa. Gallbladder: The patient is status post cholecystectomy. Common Bile Duct (C.B.D.): The common bile duct measures 4 mm. Pancreas: There is normal echogenicity of the visualized pancreas. There is no demonstrated pancreatic mass or cyst. Right Kidney: Normal size of the right kidney. The right kidney measures 13.1 cm x 4.7 cm x 4.6 cm. Normal renal cortex. The right cortex measures 1.3 cm. There is no demonstrated renal mass or cyst. There is no right hydronephrosis. There is an 8 mm x 4 mm x 6 mm nonobstructive right intrarenal calculus. US/ABD Limited w/ Elastography IMPRESSION: 1. Liver stiffness measures 4.9 kPa compatible with F0-F1 (Normal to mild liver fibrosis) Metavir score. 2. Fatty infiltration of the liver. Electronically Signed: Oliverio Barcenas MD at 14:21 EDT ,
== END | disposition home or self-care (01) ==
LOC: US 07:53
PROVIDERS: PCP Family Medicine; Referring Provider Internal Medicine Gastroenterology; Visit Provider Internal Medicine Gastroenterology
DX: R11.10 Vomiting, unspecified (principal); K75.9 Inflammatory liver disease, unspecified
CPT/HCPCS: 76705; 76981

== ENCOUNTER 2024-03-13 17:11 | Emergency (ER) | payer MEDICAID, SELFPAY ==
[2024-03-13 17:12] VITALS: BP 148/105; PULSE 93; RESP 19; TEMP 36.2; O2SAT 100; BMI 31.9
--- NOTE | 2024-03-13 17:24 | CT_ITS ---
STUDY: CT ABDOMEN AND PELVIS WITHOUT CONTRAST REASON FOR EXAM: Female, 34 years old. Kidney Stone RADIATION DOSAGE (If Supplied By Facility): CTDIvol = ( 8.21 ) mGy, DLP = ( 424.71 ) mGycm TECHNIQUE: Transaxial images were obtained from the dome of the diaphragm to the symphysis pubis without oral contrast, and without intravenous contrast. Sagittal and coronal images were reconstructed. Individualized dose optimization techniques were used for this CT. COMPARISON: None. FINDINGS: The visualized lung bases are unremarkable. The visualized portions of the heart are within normal limits. Normal liver. There is non-visualization of the gallbladder, which may be secondary to either contraction or a prior cholecystectomy. Normal spleen. Normal pancreas. Normal bilateral adrenal glands. There is a 3 mm nonobstructing right renal lower pole stone. Otherwise unremarkable right kidney. There are several nonobstructing left lower pole renal stones measuring as much as 3 mm. Otherwise unremarkable left kidney. Normal visualized stomach. Normal small intestine. Normal colon. The appendix is visualized and appears normal. Normal abdominal aorta. Normal inferior vena cava. Normal retroperitoneum. Normal urinary bladder. Normal visualized uterus. Normal abdominal wall. Normal osseous structures. CT/Abdomen/Pelvis without Cont IMPRESSION: Bilateral nonobstructing renal stones. No definite acute abnormality. Electronically Signed: Caio Celis MD at 18:04 EDT ,
--- NOTE | 2024-03-13 17:24 | EDS_ITS ---
HPI HPI - GI History of Present Illness Chief Complaint: Flank Pain Narrative Narrative: 34-year-old female past medical history of remote kidney stones, high blood pressure, has had bilateral tubal ligation/removal and has a control implant presents with right flank pain, nausea and vomiting, that she has had since Wednesday, approximately 3 days ago. She denies any fevers or chills. In the last 24 hours she has vomited 3 times. No problems with bowel movements. She states she is having colicky pain in her right flank, denies any hematuria or dysuria. She states last time she had a kidney stone was in 2014 where she was seen by Dr. Farley who is since retired. She had a stent placed that fell into her bladder and reobstructed. She states she has a known 8 mm stone, but that is in her kidney. She is unsure if a piece is broken off and started her acute pain over the last few days. PFSH PFS Medical History Anemia Anxiety Asthma Back pain Bloating Cancer Cardiology follow-up encounter Chronic fatigue Congenital heart defect Congenital hip deformity DDD (degenerative disc disease) Environmental allergies Fibromyalgia History of GI bleed Hypertension Kidney stone Lactose intolerance Leg cramps Lupus Migraine headache Non-smoker Papillary thyroid carcinoma PTSD (post-traumatic stress disorder) Shortness of breath on exertion Vitamin D deficiency Home Medications albuterol sulfate 90 mcg/actuation aerosol inhaler 1 - 2 puff inhalation Q4H PRN PRN Sob &/Or Wheezing 11/06/19 [History Last Taken Unknown] cyclobenzaprine 5 mg tablet 5 mg PO BID 10/28/22 [History Last Taken Unknown] hydrochlorothiazide 12.5 mg capsule 12.5 mg PO DAILY 10/28/22 [History Last Taken Unknown] prazosin 1 mg capsule 1 mg PO QHS 10/28/22 [History Last Taken Unknown] rizatriptan 10 mg tablet (Maxalt) 10 mg PO PRN PRN MIGRAINES 10/28/22 [History Last Taken Unknown] levothyroxine 100 mcg tablet 200 mcg PO DAILY 01/19/23 [History Last Taken Unknown] cariprazine 3 mg capsule (Vraylar) 3 mg PO QHS 04/05/23 [History Last Taken Unknown] tramadol 50 mg tablet 50 mg PO Q6H PRN Pain 04/05/23 [History Last Taken Unknown] colestipol 1 gram tablet 2 g (2 x 1 gram) PO DAILY #60 tabs 05/06/23 [Rx Last Taken Unknown] promethazine 25 mg tablet 25 mg PO TID PRN nausea and vomiting #90 tabs 05/06/23 [Rx Last Taken Unknown] scopolamine base 1 mg over 3 days transdermal patch 1 patch transdermal Q3D PRN nausea and vomiting #10 ea 05/06/23 [Rx Last Taken Unknown] naproxen 500 mg tablet (Naprosyn) 500 mg PO BID PRN pain #20 tabs 12/31/23 [Rx Last Taken Unknown] ondansetron 4 mg disintegrating tablet 4 mg PO Q8H PRN PRN Nausea #10 tabs 12/31/23 [Rx Last Taken Unknown] cyclobenzaprine 10 mg tablet 10 mg PO TID PRN Muscle Spasm #20 TABLETS 03/13/24 [Rx Last Taken Unknown] naproxen 500 mg tablet (Naprosyn) 500 mg PO BID PRN pain #20 tabs 03/13/24 [Rx Last Taken Unknown] Allergy/AdvReac Type Severity Reaction Status Date / Time amphetamine [From Adderall] Allergy Severe unknown Verified 12/31/23 16:38 dextroamphetamine Allergy Severe unknown Verified 12/31/23 16:38 [From Adderall] adhesive tape Allergy Intermediate Rash Verified 12/31/23 16:38 morphine Allergy Rash Verified 12/31/23 16:38 Family History Mother Asthma Diabetes Hypertension Crohn's disease Kidney disease Father Hypertension Sister Bone cancer Other Bipolar 1 disorder Surgical History History of cystoscopy History of sinus surgery Hx of cholecystectomy Hx of colonoscopy Hx of esophagogastroduodenoscopy Hx of thyroidectomy Hx of tubal ligation S/P right knee arthroscopy Social History Smoking Status: Never smoker alcohol intake: never ROS ROS ED ROS Narrative Constitutional: No fever, no chills. HEENT: No sore throat. No neck pain. No loss of vision. No rhinorrhea. Cardiovascular: No chest pain. No palpitations. No pedal edema. Respiratory: No cough, no shortness of breath. Abdominal: No abdominal pain. Positive nausea and vomiting, 3 episodes in the last 24 hours. Genitourinary: No dysuria. No hematuria. Positive right flank pain. Musculoskeletal: No myalgias. No arthralgias. Neurologic: No headaches. No dizziness. No lightheadedness. Skin: No rash. No change in color. Psychiatric: No depression. No anxiety. EXAM Physical Exam Narrative Exam Narrative: Afebrile. Vital signs noted. HEENT: Normocephalic. Atraumatic. PERRL, EOMI. Neck soft and supple. No point tenderness or step off. Cardiovascular: Regular rate and rhythm. No murmurs, rubs, or gallops appreciated. Respiratory: No tachypnea. Lungs clear to auscultation bilaterally. Gastrointestinal: Abdomen soft, nontender, with normoactive bowel sounds. No rebound or guarding. Neurological: Awake. Alert. Nonfocal, nonlateralizing. Skin: No rash. Normal color. No pallor. Musculoskeletal: No pedal edema. Full range of motion extremities. Const Vital Signs: 03/13/24 17:12 Temperature 97.2 F L Temperature Source Temporal Pulse Rate 93 Respiratory Rate 19 H Blood Pressure 148/105 H Blood Pressure Mean 119 Pulse Ox 100 Oxygen Delivery Method Room Air MDM MDM MDM Narrative Medical decision making narrative: Suspicion is high for ureteral colic versus ureterolithiasis with hydronephrosis. Comprehensive workup was pursued. Initially she was administered Toradol for analgesia. I do not feel she needs a test because she had bilateral tubal removal and with her implant she does not have menstrual periods any longer and has not for the last year and a half. She was administered Toradol initially for analgesia, then 25 mcg of fentanyl. I reviewed her laboratory work and she has normal white count at 9.4, hemoglobin normal at 13.4, hematocrit 39.6, platelet count normal at 264. Review of her electrolyte panel shows chloride slightly elevated at 109 which I think is nonspecific, BUN normal at 8 and creatinine 0.74. Glucose appropriately elevated at 98 with an anion gap low at 3. Urinalysis shows 10-25 WBCs, however, I think this is a contaminated specimen as there are 10-25 epithelial cells. I do not feel antibiotics are indicated. I reviewed the radiology report of the CT of the abdomen pelvis and while she has renal stones, there is no obstructing stone on either side of the urinary tract. At this point in time, I am unsure as to the cause of her pain in her flank. It may be more musculoskeletal. She was written prescriptions for naproxen and Flexeril. She will follow-up with her primary care provider. At this point in time I feel she can be discharged to follow-up. Return instructions were reviewed. Disposition is discharged home in stable condition. History & Record Review Discussion w/independent historian: Patient Additional record(s) reviewed:: Prior outpatient record Lab Data Attestation: I reviewed the patient's lab results. Labs: Laboratory Results - last 24 hr 03/13/24 03/13/24 17:34 18:11 WBC 9.4 RBC 4.98 Hgb 13.4 Hct 39.6 MCV 79.5 L MCH 26.9 L MCHC 33.8 RDW Std Deviation 39.5 RDW Coeff of Ame 13.7 Plt Count 264 MPV 9.5 Immature Gran % (Auto) 0.700 Neut % (Auto) 63.0 Lymph % (Auto) 26.7 [place] % (Auto) 7.6 Eos % (Auto) 1.8 Baso % (Auto) 0.2 Absolute Neuts (auto) 5.9 Absolute Lymphs (auto) 2.51 Nucleated RBC % 0 Sodium 139 Potassium 3.5 Chloride 109 H Carbon Dioxide 27.0 Anion Gap 3 L BUN 8 Creatinine 0.74 Estim Creat Clear Calc 117.81 Est GFR (MDRD) Af Amer 116 Est GFR (MDRD) Non-Af 96 BUN/Creatinine Ratio 10.8 Glucose 98 Calcium 8.9 Urine Color Yellow Urine Clarity Sl. Cloudy Urine pH 7.0 Ur Specific [place] 1.015 Urine Protein 15 H Urine Glucose (UA) Normal Urine Ketones Negative Urine Occult Blood Negative Urine Nitrite Negative Urine Bilirubin Negative Urine Urobilinogen Normal Ur Leukocyte Esterase 500 H Urine RBC 0 SEEN Urine WBC 10-25 SEEN Ur Squamous Epith Cells 10-25 SEEN Urine Bacteria 0 SEEN Urine Mucus 0 SEEN Radiography Diagnostic Testing: Clinical Impression(s) from Imaging Studies Abdomen/Pelvis CT 03/13/24 17:24 IMPRESSION: Bilateral nonobstructing renal stones. No definite acute abnormality. Electronically Signed: Caio Celis MD at 18:04 EDT , Discharge Plan Triage Chief Complaint: Flank Pain ED Provider: Fortunato Zuñiga Dx/Rx/DC Orders Clinical Impression: Flank pain Instructions: ED Flank Pain, Uncertain Cause Prescriptions: New naproxen [Naprosyn] 500 mg tablet 500 mg PO BID PRN (Reason: pain) Qty: 20 0RF cyclobenzaprine 10 mg tablet 10 mg PO TID PRN (Reason: Muscle Spasm) Qty: 20 0RF No Action cyclobenzaprine 5 mg tablet 5 mg PO BID prazosin 1 mg capsule 1 mg PO QHS hydrochlorothiazide 12.5 mg capsule 12.5 mg PO DAILY rizatriptan [Maxalt] 10 mg tablet 10 mg PO PRN PRN (Reason: MIGRAINES) scopolamine base 1 mg over 3 days patch 3 day 1 patch transdermal Q3D PRN (Reason: nausea and vomiting) Qty: 10 5RF promethazine 25 mg tablet 25 mg PO TID PRN (Reason: nausea and vomiting) Qty: 90 1RF colestipol 1 gram tablet 2 g PO DAILY Qty: 60 3RF Rx Instructions: avoid other meds 1 hr before and 4 hrs after taking colestipol levothyroxine 100 mcg tablet 200 mcg PO DAILY Patient Comments: 200 mcg 5 days per week, 225 mcg 2 days per week albuterol sulfate 1 INHALER inhaler 1 - 2 puff inhalation Q4H PRN MDD \ PRN (Reason: Sob &/Or Wheezing) tramadol 50 mg Tablet 50 mg PO Q6H PRN (Reason: Pain) Vraylar 3 mg Capsule 3 mg PO QHS naproxen [Naprosyn] 500 mg tablet 500 mg PO BID PRN (Reason: pain) Qty: 20 0RF ondansetron 4 mg tablet,disintegrating 4 mg PO Q8H PRN PRN (Reason: Nausea) Qty: 10 0RF Primary Care Provider: Nagi Blanc Referrals: Nagi Blanc MD [Primary Care Provider] - 3-5 Days if not improving Disposition Disposition: Home, Self Care
[2024-03-13] MEDS: Ondansetron 4 MG/2 ML Vial IV (17:35)
[2024-03-13] MEDS: Ketorolac 30 MG/ML Syringe IV (17:35)
[2024-03-13] MEDS: 0.9% Normal Saline (1000mL) 1,000 ML 250 ML IV (17:40)
[2024-03-13 17:44] LABS: Absolute Lymphocyte Count 2.51 X10^3/uL (0.83-4.51); Absolute Neutrophil Count 5.9 X10^3/uL (2.0-7.7); Basophil# 0.02 X10^3/uL; Basophil% 0.2 % (0-1); Eosinophil# 0.17 X10^3/uL; Eosinophils% 1.8 % (0-5); Hematocrit 39.6 % (37-47); Hemoglobin 13.4 g/dL (12.0-15.0); Lymphocyte # 2.51 X10^3/ul (0.83-4.51); Lymphocyte % 26.7 % (19-41); Mean Corp Hgb Conc 33.8 g/dL (32-36); Mean Corpuscular Hgb 26.9 pg (27.0-32.0); Mean Corpuscular Volume 79.5 fL (81-99); Mean Platelet Vol. 9.5 fl (6.2-12.0); Monocyte# 0.71 X10^3/uL; Monocyte% 7.6 % (0-10); NRBC Flagged by Analyzer 0 % (0-5); Neutrophil # 5.92 X10^3/uL (2.7-7.7); Platelet Count 264 K/mm3 (150-450); RBC Distribution Width CV 13.7 % (11.6-14.6); RBC Distribution Width SD 39.5 fl (35.1-43.9); Red Blood Count 4.98 M/mm3 (4.2-5.4); White Blood Count 9.4 K/mm3 (4.4-11.0)
[2024-03-13 17:55] LABS: Anion Gap 3 (5-15); BUN 8 mg/dL (7-18); BUN/Creat Ratio 10.8 RATIO (10-20); Calcium,Total 8.9 mg/dL (8.5-10.1); Chloride 109 mmol/L (98-107); Creatinine, Serum 0.74 mg/dL (0.55-1.02); EST Glomerular Filtration Rate 96 mL/min (>60); Est Glom Filt Rate - Afr Amer 116 mL/min (>60); Estimated Creatinine Clearance 117.81 ml/min; Glucose 98 mg/dL (74-106); Potassium 3.5 mmol/L (3.5-5.1); Sodium Level 139 mmol/L (136-145)
[2024-03-13 18:14] LABS: Bacteria 0 SEEN /hpf (None Seen); Mucous, Urine 0 SEEN /hpf (<or=2+); Red Blood Cells-Urine 0 SEEN /hpf (0-5)
[2024-03-13 18:29] LABS: Color, Urine Yellow (Yellow); Glucose, Dipstick Normal (Normal); Ketone-Dipstick Negative (Negative); Leukocyte Esterase-Dipstick 500 /ul (Negative); Nitrite-Dipstick Negative (Negative); Occult Blood-Urine Negative /ul (Negative); Protein-Dipstick 15 mg/dl (Negative); Specific Gravity, Urine 1.015 (1.002-1.030); Urine Bilirubin Dipstick Negative (Negative); Urine Clarity Sl. Cloudy (Clear); Urine Urobilinogen Normal (Normal)
[2024-03-13] MEDS: fentaNYL 100 MCG/2 ML Ampul 25 MCG IV (18:41)
[2024-03-13 18:49] LABS: Squamous Epithelial Cells - UA 10-25 SEEN /hpf (5-10)
[2024-03-13 18:51] LABS: White Blood Cells 10-25 SEEN /hpf (0-5)
[2024-03-13 19:11] VITALS: BP 136/94; PULSE 99; RESP 18; O2SAT 95
[2024-03-13 19:24] VITALS: BP 136/94; PULSE 99; RESP 18; TEMP 36.3; O2SAT 95
== END 2024-03-13 19:24 | disposition home or self-care (01) ==
PROVIDERS: Emergency Provider Emergency Medicine; PCP Family Medicine; Visit Provider Emergency Medicine
DX: R10.9 Unspecified abdominal pain (principal); I10 Essential (primary) hypertension; Z98.51 Tubal ligation status; Z79.899 Other long term (current) drug therapy; G43.909 Migraine, unspecified, not intractable, without status migrainosus; Z90.49 Acquired absence of other specified parts of digestive tract
CPT/HCPCS: 74176; 80048; 81001; 85025; 96361; 96374; 96375; 99282; J7030; J2405

== ENCOUNTER 2024-05-13 20:01 | Emergency (ER) | payer MEDICAID, SELFPAY ==
[2024-05-13 20:02] VITALS: BP 144/99; PULSE 92; RESP 16; TEMP 36.2; O2SAT 98; BMI 31.6
--- NOTE | 2024-05-13 20:30 | ED.VIS.LOWEX ---
HPI History of Present Illness HPI Narrative: 34-year-old female history of kidney stone. States she has had left calf pain for about 2 weeks. Denies any fall injury or trauma. No prior left leg surgery. Saw her primary care physician and had a ultrasound of her left leg done to [facility] facility which showed no clot. She is a send is more pain now with walking. Worse with laying supine. No back pain. No fever or redness. Also today the patient developed dysuria. Thinks he may have a UTI. Denies fever. Denies vomiting. Denies abdominal or flank pain. Chief Complaint: Complaint Informant: patient and parent Occured/Mechanism Mechanism/Context: No injury and No blunt trauma Onset/Context/Timing Onset: Weeks Context: Gradual Onset Timing: Continuous Quality of Pain: Dull and Aching Current Severity: Mild Maximum Severity: Mild Associated Symptoms Associated Symptoms: Negative for Parasthesia, Weakness or Loss of Funtion Narrative Narrative: 34-year-old female history of prior kidney stones. Complaining of left calf pain for 2 weeks. Negative recent ultrasound leg. No fall injury or trauma. No fever or redness. Also today complaining of dysuria which started hours ago. Prior similar symptoms: Yes Recent Illness/Hospitalization: No PFSH PFSH Medical History Kidney stone Cancer Anemia Migraine headache History of GI bleed Non-smoker Shortness of breath on exertion Leg cramps Hypertension Cardiology follow-up encounter Vitamin D deficiency PTSD (post-traumatic stress disorder) Papillary thyroid carcinoma Lupus Lactose intolerance Fibromyalgia DDD (degenerative disc disease) Congenital hip deformity Congenital heart defect Chronic fatigue Back pain Anxiety Bloating Environmental allergies Asthma Home Medications ?Medication ?Instructions ?Recorded ?Last Taken ?Type albuterol sulfate 90 mcg/actuation 1 - 2 puff inhalation Q4H PRN PRN 11/06/19 Unknown History aerosol inhaler Sob &/Or Wheezing hydrochlorothiazide 12.5 mg capsule 12.5 mg PO DAILY 10/28/22 Unknown History prazosin 1 mg capsule 1 mg PO QHS 10/28/22 Unknown History rizatriptan 10 mg tablet (Maxalt) 10 mg PO PRN PRN MIGRAINES 10/28/22 Unknown History levothyroxine 100 mcg tablet 200 mcg PO DAILY 01/19/23 Unknown History tramadol 50 mg tablet 50 mg PO Q6H PRN Pain 04/05/23 Unknown History cyclobenzaprine 10 mg tablet 10 mg PO TID PRN Muscle Spasm #20 03/13/24 Unknown Rx TABLETS cariprazine 1.5 mg capsule 1.5 mg PO DAILY 05/13/24 Unknown History (Vraylar) Allergy/AdvReac Type Severity Reaction Status Date / Time amphetamine (From Adderall) Allergy Severe unknown Verified 12/31/23 16:38 dextroamphetamine (From Allergy Severe unknown Verified 12/31/23 16:38 Adderall) adhesive tape Allergy Intermediate Rash Verified 12/31/23 16:38 morphine Allergy Rash Verified 12/31/23 16:38 Family History Mother Asthma Diabetes Hypertension Crohn's disease Kidney disease Father Hypertension Sister Bone cancer Other Bipolar 1 disorder Surgical History Hx of thyroidectomy Hx of esophagogastroduodenoscopy Hx of colonoscopy History of cystoscopy Hx of tubal ligation History of sinus surgery Hx of cholecystectomy S/P right knee arthroscopy Social History Smoking Status: Never smoker alcohol intake: never ROS ROS ED ROS Narrative Dysuria today. Review of Systems ROS Unobtainable: Denies due to encephalopathy Constitutional Constitutional ED: Denies chills or fever(s) Eyes Eyes: Denies blurry vision ENT ENT ED: Denies ear pain, rhinorrhea or sore throat Cardiovascular Cardiovascular: Denies chest pain, palpitations or racing heartbeat Respiratory/Chest Respiratory/Chest: Denies cough, dyspnea or dyspnea on exertion Gastrointestinal Gastrointestinal: Denies abdominal pain, constipation, diarrhea, nausea or vomiting Genitourinary Genitourinary ED: Reports dysuria; Denies hematuria Musculoskeletal Musculoskeletal: Denies arthralgias, back pain, myalgias or neck pain Integumentary Denies abscess, Abrasions or rash Neurologic Neurologic: Denies headache(s) Psychiatric Psychiatric: Denies anxiety Endocrine Endocrinology: Denies polydipsia, polyphagia or polyuria Hematologic/Lymphatic Hematologic/Lymphatic: Denies easy bleeding, easy bruising or lymphadenopathy Allergic/Immunologic Allergic/Immunologic ED: Denies mouth swelling, tongue swelling or urticaria EXAM Physical Exam Narrative Exam Narrative: 34-year-old female no acute distress vital signs stable afebrile. Pulse ox 90% on room air no signs hypoxia. Father at bedside. H EENT exam unremarkable. Neck nontender. No lymphadenopathy. Lungs clear to auscultation bilaterally. Heart regular rhythm rate about 90 no murmur. Chest wall and ribs nontender. Abdomen soft nontender. No peritoneal signs. Back nontender. No musculoskeletal back pain. No CVA tenderness. Moving all 4 extremities. Bilateral 5-5 oil dipper strength. Lower extremities neurovascularly intact. She has mild tenderness to her low midportion of her left calf. There is no significant swelling. There is no redness or warmth. There is no streaks. She has full flexion extension of her left hip, left knee, ankle and foot. Normal dorsi and plantarflexion. Plantarflexion she has more Discomfort. She is a normal DP pulse. No swelling in the foot. And normal sensation. Otherwise exam unremarkable. Const Vital Signs: 05/13/24 20:02 05/13/24 20:02 Temperature 97.2 F L 97.2 F L Temperature Source Temporal Temporal Pulse Rate 92 92 Respiratory Rate 16 16 Blood Pressure 144/99 H 144/99 H Blood Pressure Mean 114 114 Pulse Ox 98 98 Oxygen Delivery Method Room Air Room Air Positive well nourished and well developed; Negative for cachectic, contractures or unkempt General Appearance ED: well developed and NAD; Negative for unkempt, cachectic or contractures Nutritional Appearance: Negative for cachectic HEENT Reports moist mucous membranes normocephalic and atraumatic; Negative for trauma or tenderness Eyes PERRL General Eye ED: Negative for other Neck full ROM and supple Thyroid: Negative for tender Lymph Lymphatic: Negative for other Chest Wall inspection of chest normal and palpation of chest normal Chest: Negative for other Resp normal respiratory effort, no retractions and clear to auscultation bilaterally Effort and Inspection: Negative for pain with movement Auscultation: Negative for rales, rhonchi, wheezes or diminished lung sounds Cardio regular rate, regular rhythm, S1 normal heart sound, S2 normal heart sound and no murmurs Rate: Negative for bradycardia Bruits: Negative for other GI non-tender and no masses Inspection: Negative for abdominal distention Palpation: soft; Negative for tender, guarding or rebound tenderness present Back/Spine no CVA tenderness Back/Spine Narrative: No reproducible back pain. General Back: Negative for CVA tenderness Cervical Spine: Negative for cervical spine tenderness Thoracic Spine / Upper Back: Negative for thoracic spinal tenderness Lumbar Spine / Lower Back: Negative for lumbar spinal tenderness Extremity full ROM; Negative for normal to inspection Extremity Narrative: Mild mid left calf tenderness. No redness or warmth. No cords. No edema. Full range of motion to all joints of the left lower extremity. Normal DP pulse. Able to wiggle her toes. Normal dorsi plantarflexion. Calf discomfort with plantarflexion. No deficit in the soft tissue of the calf. Left lower extremity exam is consistent with a calf strain. General Extremety ED: Negative for cyanosis or edema General Extremity: Negative for cyanosis or edema Neuro oriented x3, CN's II-XII intact bilaterally, moves all extremities and no sensory deficits noted Sensorium / Orientation: alert, oriented to person, oriented to place and oriented to time; Negative for orientation impaired, confused, lethargic or stuporous Motor Exam: strength 5/5 throughout; Negative for general weakness or strength abnormal Psych mental status grossly normal Appearance: Negative for unkempt Speech: No other Mood & Affect: Negative for anxious Skin no wounds Lesions: no lesions Rashes: no rashes Trauma: Negative for abrasion, laceration, puncture or other MDM MDM MDM Narrative Medical decision making narrative: 34-year-old female left calf pain for about 2 weeks worse with walking and being supine. Exam is consistent with a calf strain. She recently had a noninvasive study done at [facility] which was completely negative I read the results myself from her MyChart on her cell phone. There is no signs of infection. She has a good pulse and strength in her left foot. This will be treated as a calf strain Motrin rest if not improving he can follow-up to get imaging done. Patient has dysuria and a urinalysis will be obtained. Repeat exam patient doing well at 9:15 PM. She will be discharged home. Outpatient follow-up if she has continued calf pain if not improving. Rest. Ice and elevate. Motrin and Tylenol. History & Record Review Discussion w/independent historian: Patient Additional record(s) reviewed:: Prior inpatient record, Prior outpatient record, Prior ED visit and Prior labs Lab Data Attestation: I reviewed the patient's lab results. Lab results narrative: Urinalysis shows no acute abnormality. No white or red cells. No nitrates. Labs: Laboratory Results - last 24 hr 05/13/24 20:33 Urine Color Yellow Urine Clarity Clear Urine pH 6.0 Ur Specific [place] 1.020 Urine Protein 15 H Urine Glucose (UA) Normal Urine Ketones Negative Urine Occult Blood 10 H Urine Nitrite Negative Urine Bilirubin Negative Urine Urobilinogen 1 H Ur Leukocyte Esterase Negative Urine RBC 0-5 SEEN Urine WBC 0-5 SEEN Ur Squamous Epith Cells 0-5 SEEN Urine Bacteria 1+ Urine Mucus 0 SEEN Discharge Plan Triage Chief Complaint: Complaint Other Complaint: Lower Extremity Injury ED Provider: Melvin Solares Dx/Rx/DC Orders Clinical Impression: Strain of left calf muscle Instructions: ED Muscle Strain, Extremity Prescriptions: No Action prazosin 1 mg capsule 1 mg PO QHS hydrochlorothiazide 12.5 mg capsule 12.5 mg PO DAILY rizatriptan [Maxalt] 10 mg tablet 10 mg PO PRN PRN (Reason: MIGRAINES) levothyroxine 100 mcg tablet 200 mcg PO DAILY Patient Comments: 200 mcg 5 days per week, 225 mcg 2 days per week albuterol sulfate 1 INHALER inhaler 1 - 2 puff inhalation Q4H PRN MDD \ PRN (Reason: Sob &/Or Wheezing) tramadol 50 mg Tablet 50 mg PO Q6H PRN (Reason: Pain) cyclobenzaprine 10 mg tablet 10 mg PO TID PRN (Reason: Muscle Spasm) Qty: 20 0RF Vraylar 1.5 mg capsule 1.5 mg PO DAILY Primary Care Provider: Nagi Blanc Referrals: Nagi Blanc MD [Primary Care Provider] - 1-2 Weeks Activity Restrictions/Additional Instructions: The exam in your leg is consistent with a calf strain. This should progressively improve with rest, ice and anti-inflammatory such as Motrin or ibuprofen for pain and inflammation. If is not improving in 1 to 2 weeks follow-up with your doctor they can get additional imaging. The ultrasound you previously had done showed no signs of any fluid collection nor any type of blood clot nor a Atkins's cyst. Print Language: Surinamese Disposition Disposition: Home, Self Care
[2024-05-13 20:43] LABS: Mucous, Urine 0 SEEN /hpf (<or=2+)
[2024-05-13 20:49] LABS: Color, Urine Yellow (Yellow); Glucose, Dipstick Normal (Normal); Ketone-Dipstick Negative (Negative); Leukocyte Esterase-Dipstick Negative /ul (Negative); Nitrite-Dipstick Negative (Negative); Occult Blood-Urine 10 /ul (Negative); Protein-Dipstick 15 mg/dl (Negative); Urine Bilirubin Dipstick Negative (Negative); Urine Clarity Clear (Clear); Urine Urobilinogen 1 mg/dl (Normal)
[2024-05-13 20:56] LABS: Bacteria 1+ /hpf (None Seen); Red Blood Cells-Urine 0-5 SEEN /hpf (0-5); Squamous Epithelial Cells - UA 0-5 SEEN /hpf (5-10); White Blood Cells 0-5 SEEN /hpf (0-5)
[2024-05-13 21:26] VITALS: BP 141/108; PULSE 86; RESP 16; TEMP 37; O2SAT 95
== END 2024-05-13 21:27 | disposition home or self-care (01) ==
PROVIDERS: Emergency Provider Emergency Medicine; PCP Family Medicine; Visit Provider Emergency Medicine
DX: S86.112A Strain of other muscle(s) and tendon(s) of posterior muscle group at lower leg level, left leg, initial encounter (principal); R30.0 Dysuria; Z98.51 Tubal ligation status; Z90.49 Acquired absence of other specified parts of digestive tract; I10 Essential (primary) hypertension; J45.909 Unspecified asthma, uncomplicated; Z87.442 Personal history of urinary calculi; X58.XXXA Exposure to other specified factors, initial encounter
CPT/HCPCS: 81001; 99283

== ENCOUNTER 2024-09-01 07:13 | Emergency (ER) | payer MEDICAID, SELFPAY ==
[2024-09-01 07:14] VITALS: BP 161/113; PULSE 106; RESP 14; TEMP 36.8; O2SAT 99; BMI 29.9
--- NOTE | 2024-09-01 07:28 | CT_ITS ---
STUDY: CT ABDOMEN AND PELVIS WITHOUT CONTRAST REASON FOR EXAM: Female, 34 years old. Right flank pain, hx of stones RADIATION DOSAGE (If Supplied By Facility): CTDIvol = ( 9.72 ) mGy, DLP = ( 500.43 ) mGycm TECHNIQUE: Transaxial images were obtained from the dome of the diaphragm to the symphysis pubis without oral contrast, and without intravenous contrast. Sagittal and coronal images were reconstructed. Individualized dose optimization techniques were used for this CT. COMPARISON: Comparison is made with prior study dated March 13, 2024. FINDINGS: The visualized lung bases are unremarkable. The visualized portions of the heart are within normal limits. There is decreased attenuation of the liver consistent with steatosis. The patient is status post cholecystectomy. Normal spleen. Normal pancreas. Normal bilateral adrenal glands. There is a 3 mm nonobstructive calculus in the lower pole calyx of the right kidney. Punctate calculus is seen in the midpole calyx of the right kidney as well. There is a 2 mm nonobstructive calculus in the posterior mid pole calyx of the left kidney. Tiny nonobstructive calculus in the lower pole calyces of the left kidney. Normal visualized stomach. Normal small intestine. Normal colon. The appendix is visualized and appears normal. Normal abdominal aorta. Normal inferior vena cava. Normal retroperitoneum. Normal urinary bladder. Follicles are seen in both ovaries. There is a small umbilical hernia containing fat. Normal osseous structures. CT/Abdomen/Pelvis without Cont IMPRESSION: Stable small bilateral nonobstructive renal calculi. No evidence of obstructive uropathy at this time. Electronically Signed: Oliverio Barcenas MD at 9:19 EDT ,
--- NOTE | 2024-09-01 07:30 | EDS_ITS ---
HPI History of Present Illness Chief Complaint: Back Narrative Narrative: Patient is a 34-year-old female with past medical history of urolithiasis, PTSD, papillary thyroid carcinoma, lupus, fibromyalgia, anxiety, asthma who presents to the emergency department with a chief complaint of back pain. Patient states that her pain started yesterday while at work. She states that she did not bend over becoming heavier or have any trauma. States that this feels like a kidney stone. States that she has had multiple kidney stones in the past and notes that she has had to have these removed. Patient states that she feels like she has a kidney stone again today. She rates her pain a 7 out of 10. [facility] Medical History Kidney stone Cancer Anemia Migraine headache History of GI bleed Non-smoker Shortness of breath on exertion Leg cramps Hypertension Cardiology follow-up encounter Vitamin D deficiency PTSD (post-traumatic stress disorder) Papillary thyroid carcinoma Lupus Lactose intolerance Fibromyalgia DDD (degenerative disc disease) Congenital hip deformity Congenital heart defect Chronic fatigue Back pain Anxiety Bloating Environmental allergies Asthma Home Medications ?Medication ?Instructions ?Recorded ?Last Taken ?Type albuterol sulfate 90 mcg/actuation 1 - 2 puff inhalation Q4H PRN PRN 11/06/19 Unknown History aerosol inhaler Sob &/Or Wheezing hydrochlorothiazide 12.5 mg capsule 12.5 mg PO DAILY 10/28/22 Unknown History prazosin 1 mg capsule 1 mg PO QHS 10/28/22 Unknown History rizatriptan 10 mg tablet (Maxalt) 10 mg PO PRN PRN MIGRAINES 10/28/22 Unknown History levothyroxine 100 mcg tablet 200 mcg PO DAILY 01/19/23 Unknown History tramadol 50 mg tablet 50 mg PO Q6H PRN Pain 04/05/23 Unknown History cyclobenzaprine 10 mg tablet 10 mg PO TID PRN Muscle Spasm #20 03/13/24 Unknown Rx TABLETS cariprazine 1.5 mg capsule 1.5 mg PO DAILY 05/13/24 Unknown History (Vraylar) cephalexin 500 mg capsule 500 mg PO BID 7 days #14 caps 09/01/24 Unknown Rx ondansetron 4 mg disintegrating 4 mg PO Q6H PRN nausea and 09/01/24 Unknown Rx tablet vomiting #20 tabs Allergy/AdvReac Type Severity Reaction Status Date / Time amphetamine (From Adderall) Allergy Severe unknown Verified 09/01/24 07:17 dextroamphetamine (From Allergy Severe unknown Verified 09/01/24 07:17 Adderall) adhesive tape Allergy Intermediate Rash Verified 09/01/24 07:17 morphine Allergy Rash Verified 09/01/24 07:17 Family History Mother Asthma Diabetes Hypertension Crohn's disease Kidney disease Father Hypertension Sister Bone cancer Other Bipolar 1 disorder Surgical History Hx of thyroidectomy Hx of esophagogastroduodenoscopy Hx of colonoscopy History of cystoscopy Hx of tubal ligation History of sinus surgery Hx of cholecystectomy S/P right knee arthroscopy Social History Smoking Status: Never smoker alcohol intake: never ROS ROS ED ROS Narrative Constitutional: Denies any fevers, chills, headaches, lightness, dizziness Cardiovascular: Denies chest pain Respiratory: Denies coughing wheezing shortness of breath Abdomen: Admits to nausea vomiting denies abdominal pain diarrhea : Complains of painful urination denies any hematuria polyuria Neurological: Denies numbness, weakness, tingling Musculoskeletal: Complains of right-sided back pain as noted above Skin: Warm, dry, intact EXAM Physical Exam Narrative Exam Narrative: General: Patient lying in bed rest comfortably did not appear to be in any acute distress Head: Atraumatic, normocephalic Eyes: PERRL bilateral, EOMI bilateral, no conjunctival injection noted Neck: Soft, supple, trachea midline Cardiovascular: Patient tachycardic with a regular rhythm no murmurs gallops rubs noted Respiratory: Clear to auscultation bilaterally Abdomen: Soft, nondistended, no tenderness palpation, bowel sounds present x 4 Musculoskeletal: Patient has right-sided CVA tenderness noted on exam no midline tenderness palpation the thoracolumbar spine Extremities: +5/5 strength noted in the bilateral upper and lower extremities, no pedal edema noted exam Neurological: Patient following commands knew that she was at [facility] years 2023 Skin: Warm, dry, intact Const Vital Signs: 09/01/24 07:14 09/01/24 11:13 Temperature 98.3 F Temperature Source Oral Pulse Rate 106 H 59 L Respiratory Rate 14 Blood Pressure 161/113 H Blood Pressure Mean 129 Pulse Ox 99 96 Oxygen Delivery Method Room Air Room Air MDM MDM MDM Narrative Medical decision making narrative: Patient is a 34-year-old female who presented to the emergency department with chief complaint of right sided back pain and concern for kidney stone. Patient will have workup performed on the differential diagnose includes but not limited to UTI, pyelonephritis, nephrolithiasis, urolithiasis, musculoskeletal strain. Once workup is obtained reviewed she will be reevaluated. Patient be given Zofran for nausea. Patient CBC reviewed and was largely unremarkable no evidence leukocytosis white blood count normal at 10.6, hemoglobin stable 14.6, platelet count normal at 214. Patient's sodium normal 140, potassium normal 3.5, creatinine normal at 1.02. Patient's AST and ALT were 90 and 27 respectively. Patient's lipase normal at 55, urinalysis showed 100 leukocyte esterase 5-10 white cells with 2+ bacteria this could be a contaminated sample as there is 5-10 squamous epithelial cells this was sent for culture. She will be treated for UTI prophylactically until her urine culture results return. She was given Rocephin and a prescription for Keflex will be sent to her pharmacy as well as Zofran per her request. Patient's CT abdomen pelvis without IV contrast was reviewed and showed a stable small bilateral nonobstructive renal calculi no evidence of obstructive uropathy at this time. test negative On reevaluation of the patient she would like to go home at this point time. Patient was advised to return with worsening symptoms or other concerns. She is otherwise follow-up with her primary care physician. All question concerns answered she was discharged home in stable condition. Lab Data Labs: Laboratory Results - last 24 hr 09/01/24 09/01/24 07:34 07:45 WBC 10.6 RBC 5.39 Hgb 14.6 Hct 43.2 MCV 80.1 L MCH 27.1 MCHC 33.8 RDW Std Deviation 40.5 RDW Coeff of Ame 14.0 Plt Count 214 MPV 9.8 Immature Gran % (Auto) 1.200 H Neut % (Auto) 68.2 Lymph % (Auto) 23.6 [place] % (Auto) 4.5 Eos % (Auto) 2.0 Baso % (Auto) 0.5 Absolute Neuts (auto) 7.3 Absolute Lymphs (auto) 2.51 Nucleated RBC % 0 Sodium 140 Potassium 3.5 Chloride 109 H Carbon Dioxide 24.0 Anion Gap 7 BUN 10 Creatinine 1.02 Estim Creat Clear Calc 82.89 Est GFR (MDRD) Af Amer 80 Est GFR (MDRD) Non-Af 66 BUN/Creatinine Ratio 9.8 L Glucose 140 H Calcium 9.0 Total Bilirubin 0.40 AST 20 ALT 27 Alkaline Phosphatase 101 Total Protein 8.0 Albumin 3.9 Globulin 4.1 Albumin/Globulin Ratio 1.0 Lipase 55 Urine Color Yellow Urine Clarity Sl. Cloudy Urine pH 6.0 Ur Specific [place] 1.025 Urine Protein 30 H Urine Glucose (UA) Normal Urine Ketones Negative Urine Occult Blood 10 H Urine Nitrite Negative Urine Bilirubin Negative Urine Urobilinogen Normal Ur Leukocyte Esterase 100 H Urine RBC 0 SEEN Urine WBC 5-10 SEEN Ur Squamous Epith Cells 5-10 SEEN Calcium Oxalate Crystal RARE Urine Bacteria 2+ Urine Mucus 1+ Urine Test Negative Radiography Diagnostic Testing: Clinical Impression(s) from Imaging Studies Abdomen/Pelvis CT 09/01/24 07:28 IMPRESSION: Stable small bilateral nonobstructive renal calculi. No evidence of obstructive uropathy at this time. Electronically Signed: Oliverio Barcenas MD at 9:19 EDT , Discharge Plan Triage Chief Complaint: Back ED Provider: Ludin Adams Dx/Rx/DC Orders Clinical Impression: Urinary tract infection Prescriptions: New cephalexin 500 mg capsule 500 mg PO BID 7 Days Qty: 14 0RF ondansetron 4 mg tablet,disintegrating 4 mg PO Q6H PRN (Reason: nausea and vomiting) Qty: 20 0RF No Action prazosin 1 mg capsule 1 mg PO QHS hydrochlorothiazide 12.5 mg capsule 12.5 mg PO DAILY rizatriptan [Maxalt] 10 mg tablet 10 mg PO PRN PRN (Reason: MIGRAINES) levothyroxine 100 mcg tablet 200 mcg PO DAILY Patient Comments: 200 mcg 5 days per week, 225 mcg 2 days per week albuterol sulfate 1 INHALER inhaler 1 - 2 puff inhalation Q4H PRN MDD \ PRN (Reason: Sob &/Or Wheezing) tramadol 50 mg Tablet 50 mg PO Q6H PRN (Reason: Pain) cyclobenzaprine 10 mg tablet 10 mg PO TID PRN (Reason: Muscle Spasm) Qty: 20 0RF Vraylar 1.5 mg capsule 1.5 mg PO DAILY Primary Care Provider: Nagi Blacn Referrals: Nagi Blanc MD [Primary Care Provider] - Activity Restrictions/Additional Instructions: Follow-up your primary care physician outpatient setting. Return with worsening symptoms or other concerns. Take antibiotics as prescribed. Follow-up with your primary care physician on your urine culture. Print Language: Urdu Disposition Disposition: Home, Self Care
[2024-09-01] MEDS: Ondansetron 4 MG/2 ML Vial IV (07:43)
[2024-09-01 07:49] LABS: Red Blood Cells-Urine 0 SEEN /hpf (0-5)
[2024-09-01 07:51] LABS: Absolute Lymphocyte Count 2.51 X10^3/uL (0.83-4.51); Absolute Neutrophil Count 7.3 X10^3/uL (2.0-7.7); Basophil# 0.05 X10^3/uL; Basophil% 0.5 % (0-1); Eosinophil# 0.21 X10^3/uL; Hematocrit 43.2 % (37-47); Hemoglobin 14.6 g/dL (12.0-15.0); Lymphocyte # 2.51 X10^3/ul (0.83-4.51); Lymphocyte % 23.6 % (19-41); Mean Corp Hgb Conc 33.8 g/dL (32-36); Mean Corpuscular Hgb 27.1 pg (27.0-32.0); Mean Corpuscular Volume 80.1 fL (81-99); Mean Platelet Vol. 9.8 fl (6.2-12.0); Monocyte# 0.48 X10^3/uL; Monocyte% 4.5 % (0-10); NRBC Flagged by Analyzer 0 % (0-5); Neutrophil # 7.26 X10^3/uL (2.7-7.7); Neutrophil % 68.2 % (47-70); Platelet Count 214 K/mm3 (150-450); RBC Distribution Width SD 40.5 fl (35.1-43.9); Red Blood Count 5.39 M/mm3 (4.2-5.4); White Blood Count 10.6 K/mm3 (4.4-11.0)
[2024-09-01 08:01] LABS: Color, Urine Yellow (Yellow); Glucose, Dipstick Normal (Normal); Ketone-Dipstick Negative (Negative); Leukocyte Esterase-Dipstick 100 /ul (Negative); Nitrite-Dipstick Negative (Negative); Occult Blood-Urine 10 /ul (Negative); Protein-Dipstick 30 mg/dl (Negative); Specific Gravity, Urine 1.025 (1.002-1.030); Urine Bilirubin Dipstick Negative (Negative); Urine Clarity Sl. Cloudy (Clear); Urine Urobilinogen Normal (Normal)
[2024-09-01 08:07] LABS: AST(SGOT) 20 U/L (15-37); Alanine Aminotransfer ALT/SGPT 27 U/L (13-56); Albumin, Serum 3.9 g/dL (3.2-5.0); Alkaline Phosphatase 101 U/L (45-117); Anion Gap 7 (5-15); BUN 10 mg/dL (7-18); BUN/Creat Ratio 9.8 RATIO (10-20); Chloride 109 mmol/L (98-107); Creatinine, Serum 1.02 mg/dL (0.55-1.02); EST Glomerular Filtration Rate 66 mL/min (>60); Est Glom Filt Rate - Afr Amer 80 mL/min (>60); Estimated Creatinine Clearance 82.89 ml/min; Globulin 4.1 g/dL (2.2-4.2); Glucose 140 mg/dL (74-106); Lipase 55 U/L (13-75); Potassium 3.5 mmol/L (3.5-5.1); Sodium Level 140 mmol/L (136-145)
[2024-09-01 08:18] LABS: Bacteria 2+ /hpf (None Seen); Mucous, Urine 1+ /hpf (<or=2+); Squamous Epithelial Cells - UA 5-10 SEEN /hpf (5-10)
[2024-09-01 08:19] LABS: Calcium Oxalate Crystals Ur RARE /hpf (<or=2+); White Blood Cells 5-10 SEEN /hpf (0-5)
[2024-09-01 08:20] LABS: Internal QC Validated? YES +Cl - CLEAR BKGD; Pregnancy, Urine Negative Negative
[2024-09-01] MEDS: Ketorolac 15 MG/ML Vial IV (08:33)
[2024-09-01] MEDS: fentaNYL 100 MCG/2 ML Ampul 50 MCG IV ×2 (09:16→12:58)
[2024-09-01] MEDS: Ceftriaxone 1 GM/50 ML BAG IV (09:53)
[2024-09-01 11:13] VITALS: PULSE 59; O2SAT 96
[2024-09-01 12:55] VITALS: BP 138/40; PULSE 59; RESP 16; TEMP 36.6; O2SAT 97
== END 2024-09-01 13:04 | disposition home or self-care (01) ==
PROVIDERS: Emergency Provider Emergency Medicine; PCP Family Medicine; Visit Provider Emergency Medicine
DX: N39.0 Urinary tract infection, site not specified (principal); F41.9 Anxiety disorder, unspecified; I10 Essential (primary) hypertension; N20.0 Calculus of kidney; Z87.442 Personal history of urinary calculi; J45.909 Unspecified asthma, uncomplicated; Z85.850 Personal history of malignant neoplasm of thyroid; Z98.51 Tubal ligation status
CPT/HCPCS: 74176; 80053; 81001; 81025; 83690; 85025; 87086; 99282; A4216; J2405

== ENCOUNTER 2024-10-21 10:39 | Emergency (ER) | payer MEDICAID, SELFPAY ==
[2024-10-21 10:40] VITALS: BP 163/113; PULSE 53; RESP 16; TEMP 35.8; O2SAT 100; BMI 32.9
--- NOTE | 2024-10-21 10:55 | CT_ITS ---
EXAM: CT HEAD WITHOUT INTRAVENOUS CONTRAST CLINICAL INDICATION: headache x 5 days TECHNIQUE: Multiple axial images were obtained of the head without intravenous contrast. This CT exam was performed using one or more of the following dose reduction techniques: automated exposure control, adjustment of the mA and/or kV according to patient size, and/or use of iterative reconstruction technique. COMPARISON: CT head, 09/19/2011. FINDINGS: BRAIN AND EXTRA-AXIAL SPACES: No significant abnormality. No intra- or extra-axial hemorrhage. No evidence of acute infarct. No intracranial mass or mass effect. There is preservation of the bermeo/white matter interface. Ventricles are appropriate for age. Basal cisterns are patent. BONES/JOINTS: No significant abnormality. No discrete lytic or blastic abnormalities. SINUSES: Right maxillary sinus mucus retention cyst. Evidence of left-sided functional endoscopic sinus surgery. No additional sinonasal opacity. MASTOID AIR CELLS: No significant effusion. ORBITS: No acute findings. CT/Brain/Head without Contrast IMPRESSION: Right maxillary sinus mucus retention cyst. Evidence of left-sided functional endoscopic sinus surgery. No additional sinonasal opacity. Otherwise, no acute intracranial pathology. Electronically Signed: Supa Evans, at 12:46 EST ,
--- NOTE | 2024-10-21 10:56 | EDS_ITS ---
HPI History of Present Illness Chief Complaint: Headache Detail of Chief Complaint: Headache x 5 days Informant: patient Narrative Narrative: Patient presents to the emergency department complaint of a headache that started 5 days ago. Patient has history of migraines but does not get them very often. She did take a Maxalt but did not get any relief the first 2 days of the start of the headache. Patient states that she started vomiting 3 days ago and yesterday started having diarrhea. She denies fever. She states that her parents are COVID-positive so work made her go get tested today and she was negative for COVID and influenza. Patient denies abdominal pain. She denies falls or head injuries. She was seen at urgent care and told she needed a CT of her head because she should have a headache for 5 days. She does state that this is the worst headache that she has had. She tells me the headache came on gradually. No family history of brain tumors or aneurysms. Patient does complain of photophobia. [facility] Medical History Kidney stone Cancer Anemia Migraine headache History of GI bleed Non-smoker Shortness of breath on exertion Leg cramps Hypertension Cardiology follow-up encounter Vitamin D deficiency PTSD (post-traumatic stress disorder) Papillary thyroid carcinoma Lupus Lactose intolerance Fibromyalgia DDD (degenerative disc disease) Congenital hip deformity Congenital heart defect Chronic fatigue Back pain Anxiety Bloating Environmental allergies Asthma Home Medications ?Medication ?Instructions ?Recorded ?Last Taken ?Type albuterol sulfate 90 mcg/actuation 1 - 2 puff inhalation Q4H PRN PRN 11/06/19 Unknown History aerosol inhaler Sob &/Or Wheezing hydrochlorothiazide 12.5 mg capsule 12.5 mg PO DAILY 10/28/22 Unknown History prazosin 1 mg capsule 1 mg PO QHS 10/28/22 Unknown History rizatriptan 10 mg tablet (Maxalt) 10 mg PO PRN PRN MIGRAINES 10/28/22 Unknown History levothyroxine 100 mcg tablet 200 mcg PO DAILY 01/19/23 Unknown History tramadol 50 mg tablet 50 mg PO Q6H PRN Pain 04/05/23 Unknown History cyclobenzaprine 10 mg tablet 10 mg PO TID PRN Muscle Spasm #20 03/13/24 Unknown Rx TABLETS cariprazine 1.5 mg capsule 1.5 mg PO DAILY 05/13/24 Unknown History (Vraylar) ondansetron 4 mg disintegrating 4 mg PO Q6H PRN nausea and 09/01/24 Unknown Rx tablet vomiting #20 tabs Allergy/AdvReac Type Severity Reaction Status Date / Time amphetamine (From Adderall) Allergy Severe unknown Verified 10/21/24 10:42 dextroamphetamine (From Allergy Severe unknown Verified 10/21/24 10:42 Adderall) adhesive tape Allergy Intermediate Rash Verified 10/21/24 10:42 morphine Allergy Rash Verified 10/21/24 10:42 Family History Mother Asthma Diabetes Hypertension Crohn's disease Kidney disease Father Hypertension Sister Bone cancer Other Bipolar 1 disorder Surgical History Hx of thyroidectomy Hx of esophagogastroduodenoscopy Hx of colonoscopy History of cystoscopy Hx of tubal ligation History of sinus surgery Hx of cholecystectomy S/P right knee arthroscopy Social History Smoking Status: Never smoker alcohol intake: never ROS ROS ED Review of Systems ROS Unobtainable: other Constitutional Constitutional ED: Reports lethargy; Denies chills, fever(s), sweats or weight loss Eyes Eyes: Denies blurry vision, change in vision or diplopia ENT ENT ED: Denies rhinorrhea or sore throat Cardiovascular Cardiovascular: Denies chest pain, orthopnea or racing heartbeat Respiratory/Chest Respiratory/Chest: Denies cough, dyspnea, dyspnea on exertion, orthopnea or sputum Gastrointestinal Gastrointestinal: Reports diarrhea, nausea and vomiting; Denies abdominal pain Genitourinary Genitourinary ED: Denies dysuria, hematuria or urinary frequency Musculoskeletal Musculoskeletal: Denies arthralgias, back pain, myalgias or neck pain Integumentary Denies abscess, Abrasions or rash Neurologic Neurologic: Reports headache(s); Denies weakness Psychiatric Psychiatric: Denies anxiety, depression or suicidal thoughts Endocrine Endocrinology: Denies polydipsia, polyphagia or polyuria Hematologic/Lymphatic Hematologic/Lymphatic: Denies easy bleeding, easy bruising or lymphadenopathy Allergic/Immunologic Allergic/Immunologic ED: Denies mouth swelling, tongue swelling or urticaria EXAM Physical Exam Const Vital Signs: 10/21/24 10:40 10/21/24 12:40 Temperature 96.5 F L Temperature Source Temporal Pulse Rate 53 L 84 Respiratory Rate 16 16 Blood Pressure 163/113 H 130/96 H Blood Pressure Mean 129 107 Pulse Ox 100 98 Oxygen Delivery Method Room Air Room Air Positive well nourished and well developed General Appearance ED: well developed and NAD HEENT Reports TM's clear and moist mucous membranes normocephalic and atraumatic; Negative for trauma or tenderness Tympanic Membrane ED: Yes TM's clear Eyes PERRL and EOMs intact bilaterally General Eye ED: Negative for pale conjunctiva or scleral icterus Neck no lymphadenopathy, supple and no JVD General: Negative for tenderness Chest Wall inspection of chest normal and palpation of chest normal Chest: Negative for tenderness Resp normal respiratory effort and clear to auscultation bilaterally Effort and Inspection: Negative for respiratory distress or pain with movement Auscultation: Negative for rhonchi, wheezes or diminished lung sounds Cardio regular rate, regular rhythm, S1 normal heart sound, S2 normal heart sound and no murmurs Peripheral Pulses: pulses 2+ throughout GI normal to inspection, nondistended, normoactive bowel sounds, soft to palpation, non-tender, non-distended and no masses Back/Spine no CVA tenderness and no thoracic nor lumbar tenderness Extremity normal to inspection General Extremety ED: Negative for edema General Extremity: Negative for edema Neuro oriented x3, CN's II-XII intact bilaterally, no sensory deficits noted and gait normal Neuro Narrative: Finger-nose and heel ceja testing within normal limits, negative Romberg, negative for drift, fundi benign Sensorium / Orientation: awake, alert, oriented to person, oriented to place and oriented to time Motor Exam: strength 5/5 throughout and strength abnormal Psych mental status grossly normal Skin no rashes or lesions noted and no wounds MDM MDM MDM Narrative Medical decision making narrative: Patient presents with a head history of migraines. Patient also with illness this week with vomiting and diarrhea. She does complain of photophobia as well as sounds bothering her. She does have history of migraines. Her parents both have COVID 19 but she was tested today and was negative. Patient seen in urgent care and referred to ER for head CT being that she has had this headache ongoing for 5 days. Patient does state this is the worst headache she has had. It did come on gradually. Patient had an IV line established. She was medicated with Reglan, Benadryl, and Toradol. She had a CT scan of the brain without contrast that showed a right maxillary sinus mucous retention cyst otherwise no acute abnormalities. After treatment she continues to have headache and currently rates it a 6 out of 10. I suspect there may be a combination of migraine and headache related to the viral illness/gastroenteritis. She does not want a thing more for pain at this time and would like to go. I advised her on pushing fluids and using ibuprofen for discomfort. She has antiemetics at home and does not want any. Lab Data Attestation: I reviewed the patient's lab results. Radiography Diagnostic Testing: Clinical Impression(s) from Imaging Studies Brain CT 10/21/24 10:55 IMPRESSION: Right maxillary sinus mucus retention cyst. Evidence of left-sided functional endoscopic sinus surgery. No additional sinonasal opacity. Otherwise, no acute intracranial pathology. Electronically Signed: Supa Evans, at 12:46 EST , Discharge Plan Triage Chief Complaint: Headache ED Provider: Rocio Higginbotham Dx/Rx/DC Orders Clinical Impression: Headache, Viral gastroenteritis Instructions: ED Headache Unspecified, ED Gastroenteritis, Viral (Adult) Prescriptions: No Action prazosin 1 mg capsule 1 mg PO QHS hydrochlorothiazide 12.5 mg capsule 12.5 mg PO DAILY rizatriptan [Maxalt] 10 mg tablet 10 mg PO PRN PRN (Reason: MIGRAINES) levothyroxine 100 mcg tablet 200 mcg PO DAILY Patient Comments: 200 mcg 5 days per week, 225 mcg 2 days per week albuterol sulfate 1 INHALER inhaler 1 - 2 puff inhalation Q4H PRN MDD \ PRN (Reason: Sob &/Or Wheezing) tramadol 50 mg Tablet 50 mg PO Q6H PRN (Reason: Pain) cyclobenzaprine 10 mg tablet 10 mg PO TID PRN (Reason: Muscle Spasm) Qty: 20 0RF Vraylar 1.5 mg capsule 1.5 mg PO DAILY ondansetron 4 mg tablet,disintegrating 4 mg PO Q6H PRN (Reason: nausea and vomiting) Qty: 20 0RF Primary Care Provider: Nagi Blanc Referrals: Nagi Blanc MD [Primary Care Provider] - 3-5 Days Print Language: Turkish Disposition Disposition: Home, Self Care
[2024-10-21] MEDS: 0.9% Normal Saline (1000mL) 1,000 ML 1000 ML IV (11:06)
[2024-10-21] MEDS: DiphenhydrAMINE 50 MG/ML Syringe 25 MG IV (11:06)
[2024-10-21] MEDS: Ketorolac 30 MG/ML Syringe IV (11:07)
[2024-10-21] MEDS: Metoclopramide 10 MG/2 ML Vial IV (11:08)
[2024-10-21 12:40] VITALS: BP 130/96; PULSE 84; RESP 16; O2SAT 98
[2024-10-21 14:06] VITALS: BP 130/96; PULSE 88; RESP 17; TEMP 36.3; O2SAT 98
== END 2024-10-21 14:10 | disposition home or self-care (01) ==
PROVIDERS: Emergency Provider Emergency Medicine; PCP Family Medicine; Referring Provider Emergency Medicine; Visit Provider Emergency Medicine
DX: R51.9 Headache, unspecified (principal); A08.4 Viral intestinal infection, unspecified; I10 Essential (primary) hypertension; J34.1 Cyst and mucocele of nose and nasal sinus; Z98.51 Tubal ligation status; Z90.49 Acquired absence of other specified parts of digestive tract
CPT/HCPCS: 70450; 99282; A4216

== ENCOUNTER → 2025-01-26 | Outpatient (CLI) | payer MEDICAID, SELFPAY ==
[2025-01-26 13:52] LABS: Absolute Lymphocyte Count 3.47 X10^3/uL (0.83-4.51); Absolute Neutrophil Count 7.5 X10^3/uL (2.0-7.7); Basophil# 0.04 X10^3/uL; Basophil% 0.3 % (0-1); Eosinophil# 0.41 X10^3/uL; Eosinophils% 3.3 % (0-5); Hematocrit 39.1 % (37-47); Hemoglobin 13.8 g/dL (12.0-15.0); Lymphocyte # 3.47 X10^3/ul (0.83-4.51); Lymphocyte % 28.2 % (19-41); Mean Corp Hgb Conc 35.3 g/dL (32-36); Mean Corpuscular Volume 79.5 fL (81-99); Mean Platelet Vol. 10.2 fl (6.2-12.0); Monocyte% 6.5 % (0-10); NRBC Flagged by Analyzer 0 % (0-5); Neutrophil # 7.45 X10^3/uL (2.7-7.7); Neutrophil % 60.7 % (47-70); Platelet Count 300 K/mm3 (150-450); RBC Distribution Width CV 13.3 % (11.6-14.6); RBC Distribution Width SD 38.3 fl (35.1-43.9); Red Blood Count 4.92 M/mm3 (4.2-5.4); White Blood Count 12.3 K/mm3 (4.4-11.0)
[2025-01-26 14:03] LABS: Erythrocyte Sedimentation Rate 7 mm/hr (0-30)
[2025-01-26 14:28] LABS: ALB/GLOB Ratio 1.3 RATIO (0.9-2.4); AST(SGOT) 21 U/L (<=31); Alanine Aminotransfer ALT/SGPT 19 U/L (<=34); Alkaline Phosphatase 79 U/L (35-104); Anion Gap 12 (5-15); BUN 8 mg/dL (4-19); BUN/Creat Ratio 9.9 RATIO (10-20); Calcium,Total 9.4 mg/dL (7.6-11.0); Carbon Dioxide 20.8 mmol/L (21.0-32.0); Chloride 106 mmol/L (98-108); EST Glomerular Filtration Rate 100 (>60); Glucose 78 mg/dL (70-99); Potassium 3.9 mmol/L (3.3-5.1); Protein, Total 7.1 g/dL (5.9-8.4); Sodium Level 138 mmol/L (133-145); Total Bilirubin 0.26 mg/dL (0.00-1.30)
== END | disposition home or self-care (01) ==
LOC: LAB 12:46
PROVIDERS: PCP Family Medicine; Referring Provider Student in an Organized Health Care Education/Training Program; Visit Provider Student in an Organized Health Care Education/Training Program
DX: R11.2 Nausea with vomiting, unspecified (principal); R19.7 Diarrhea, unspecified
CPT/HCPCS: 36415; 80053; 85025; 85652; 86140

== ENCOUNTER → 2025-02-02 | Outpatient (CLI) | payer MEDICAID, SELFPAY ==
[2025-02-03 11:08] LABS: Giardia Lamblia, Stool EIA Negative (Negative)
[2025-02-05 17:07] LABS: Calprotectin, Stool 25 ug/g (0-120)
== END | disposition home or self-care (01) ==
PROVIDERS: PCP Family Medicine; Referring Provider Student in an Organized Health Care Education/Training Program; Visit Provider Student in an Organized Health Care Education/Training Program
DX: K58.9 Irritable bowel syndrome, unspecified (principal); R11.2 Nausea with vomiting, unspecified; R19.7 Diarrhea, unspecified
CPT/HCPCS: 83630; 83993; 87177; 87209; 87329; 87493; 87506

== ENCOUNTER → 2025-02-12 | Outpatient (CLI) | payer MEDICAID, SELFPAY ==
--- NOTE | 2025-02-12 10:43 | NM_ITS ---
PROCEDURE: GASTRIC EMPTYING STUDY 02/12/2025 REASON FOR EXAM: 34-year-old female, NAUSEA AND VOMITING TECHNIQUE: Nuclear medicine GI bleed study performed with dynamic imaging obtained after intravenous injection of technetium-99m labeled autologous red blood cells. Delayed imaging out to 60 minutes. RADIOPHARMACEUTICAL: 1.1 mCi of sulfur colloid in oatmeal COMPARISON: Gastric emptying study 01/30/2023. FINDINGS: There is prompt visualization of the stomach. There is no gastroesophageal reflux. The T/raw data emptying remains above 50% emptying at the time of study termination. NM/Gastric Emptying Study IMPRESSION: Delayed gastric emptying. Unable to quantify due to timing of study terminatio n. Reading Location: [id number]
== END | disposition home or self-care (01) ==
LOC: NM 10:38
PROVIDERS: PCP Family Medicine; Referring Provider Student in an Organized Health Care Education/Training Program; Visit Provider Student in an Organized Health Care Education/Training Program
DX: R11.2 Nausea with vomiting, unspecified (principal); R19.7 Diarrhea, unspecified
CPT/HCPCS: 78264; A9541

== ENCOUNTER 2025-03-19 10:22 | Emergency (ER) | payer MEDICAID, SELFPAY ==
[2025-03-19 10:23] VITALS: BP 153/109; PULSE 68; RESP 16; TEMP 36.8; O2SAT 100; BMI 31.9
[2025-03-19 10:49] LABS: Absolute Lymphocyte Count 2.58 X10^3/uL (0.83-4.51); Absolute Neutrophil Count 6.5 X10^3/uL (2.0-7.7); Basophil# 0.03 X10^3/uL; Basophil% 0.3 % (0-1); Eosinophil# 0.32 X10^3/uL; Eosinophils% 3.3 % (0-5); Hematocrit 41.4 % (37-47); Hemoglobin 14.4 g/dL (12.0-15.0); Lymphocyte # 2.58 X10^3/ul (0.83-4.51); Lymphocyte % 26.3 % (19-41); Mean Corp Hgb Conc 34.8 g/dL (32-36); Mean Corpuscular Hgb 28.1 pg (27.0-32.0); Mean Corpuscular Volume 80.7 fL (81-99); Monocyte# 0.37 X10^3/uL; Monocyte% 3.8 % (0-10); NRBC Flagged by Analyzer 0 % (0-5); Neutrophil # 6.45 X10^3/uL (2.7-7.7); Neutrophil % 65.7 % (47-70); Platelet Count 252 K/mm3 (150-450); RBC Distribution Width CV 13.4 % (11.6-14.6); RBC Distribution Width SD 39.2 fl (35.1-43.9); Red Blood Count 5.13 M/mm3 (4.2-5.4); White Blood Count 9.8 K/mm3 (4.4-11.0)
--- NOTE | 2025-03-19 11:23 | EDS_ITS ---
HPI HPI - Female History of Present Illness Chief Complaint: Flank Pain Narrative Narrative: Patient presenting today to [facility] Medical History Kidney stone Cancer Anemia Migraine headache History of GI bleed Non-smoker Shortness of breath on exertion Leg cramps Hypertension Cardiology follow-up encounter Vitamin D deficiency PTSD (post-traumatic stress disorder) Papillary thyroid carcinoma Lupus Lactose intolerance Fibromyalgia DDD (degenerative disc disease) Congenital hip deformity Congenital heart defect Chronic fatigue Back pain Anxiety Bloating Environmental allergies Asthma Home Medications ?Medication ?Instructions ?Recorded ?Last Taken ?Type albuterol sulfate 90 mcg/actuation 1 - 2 puff inhalati on Q4H PRN PRN 11/06/19 Unknown History aerosol inhaler Sob &/Or Wheezing hydrochlorothiazide 12.5 mg capsule 12.5 mg PO DAILY 1 12/29/21 Unknown History prazosin 1 mg capsule 1 mg PO QHS 10/28/22 Unknown History rizatriptan 10 mg tablet (Maxalt) 10 mg PO PRN PRN DG GISSELL 10/28/22 Unknown History levothyroxine 100 mcg tablet 200 mcg PO DAILY 01/19/23 Unknown History tramadol 50 mg tablet 50 mg PO Q6H PRN Pain Unknown History cyclobenzaprine 10 mg tablet 10 mg PO TID PRN Muscle S pasm #20 03/13/24 Unknown Rx TABLETS cariprazine 1.5 mg capsule 1.5 mg PO DAILY 05/13/24 Un known History (Vraylar) ondansetron 4 mg disintegrating 4 mg PO Q6H PRN nausea and 09/01/24 Unknown Rx tablet vomiting #20 tabs promethazine 12.5 mg tablet 12.5 mg PO TID PRN nausea and 01/19/25 Unknown Rx vomiting #30 tabs scopolamine base 1 mg over 3 days 1 patch transdermal Q3D PRN nasuea 01/19/25 U nknown Rx transdermal patch #24 ea Allergy/AdvReac Type Severity Reaction Status Date / Time amphetamine (From Adderall) Allergy Severe unknown Verified 03/19/25 10:23 dextroamphetamine (From Allergy Severe unknown Verified 03/19/25 10:23 Adderall) adhesive tape Allergy Intermediate Rash Verified 03/19/25 10:23 morphine Allergy Rash Verified 03/19/25 10:23 Family History Mother Asthma Diabetes Hypertension Crohn's disease Kidney disease Father Hypertension Sister Bone cancer Other Bipolar 1 disorder Surgical History Hx of thyroidectomy Hx of esophagogastroduodenoscopy Hx of colonoscopy History of cystoscopy Hx of tubal ligation History of sinus surgery Hx of cholecystectomy S/P right knee arthroscopy Social History Smoking Status: Never smoker alcohol intake: never EXAM Physical Exam Const Vital Signs: 03/19/25 10:23 Temperature 98.3 F Temperature Source Oral Pulse Rate 68 Respiratory Rate 16 Blood Pressure 153/109 H Blood Pressure Mean 123 Pulse Ox 100 Oxygen Delivery Method Room Air MDM MDM MDM Narrative Medical decision making narrative: I did review outside records from [facility], she had a CT scan of the abdomen and pelvis without contrast performed yesterday at [facility], this showed nonobstructing bilateral renal calculi, no evidence of hydronephrosis or ureteral calculus. Her UA was negative for UTI or blood in the urine. Lab Data Attestation: I reviewed the patient's lab results. Labs: Laboratory Results - last 24 hr 03/19/25 10:35 WBC 9.8 RBC 5.13 Hgb 14.4 Hct 41.4 MCV 80.7 L MCH 28.1 MCHC 34.8 RDW Std Deviation 39.2 RDW Coeff of Ame 13.4 Plt Count 252 MPV 10.0 Immature Gran % (Auto) 0.600 Neut % (Auto) 65.7 Lymph % (Auto) 26.3 [place] % (Auto) 3.8 Eos % (Auto) 3.3 Baso % (Auto) 0.3 Absolute Neuts (auto) 6.5 Absolute Lymphs (auto) 2.58 Nucleated RBC % 0 Discharge Plan Triage Chief Complaint: Flank Pain ED Midlevel Provider: Ester Blas ED Provider: Provider,Ed Physician Dx/Rx/DC Orders Prescriptions: No Action prazosin 1 mg capsule 1 mg PO QHS hydrochlorothiazide 12.5 mg capsule 12.5 mg PO DAILY rizatriptan [Maxalt] 10 mg tablet 10 mg PO PRN PRN (Reason: MIGRAINES) scopolamine base 1 mg over 3 days patch 3 day 1 patch transdermal Q3D PRN (Reason: nasuea ) Qty: 24 2RF promethazine 12.5 mg tablet 12.5 mg PO TID PRN (Reason: nausea and vomiting) Qty: 30 2RF levothyroxine 100 mcg tablet 200 mcg PO DAILY Patient Comments: 200 mcg 5 days per week, 225 mcg 2 days per week albuterol sulfate 1 INHALER inhaler 1 - 2 puff inhalation Q4H PRN MDD \ PRN (Reason: Sob &/Or Wheezing) tramadol 50 mg Tablet 50 mg PO Q6H PRN (Reason: Pain) cyclobenzaprine 10 mg tablet 10 mg PO TID PRN (Reason: Muscle Spasm) Qty: 20 0RF Vraylar 1.5 mg capsule 1.5 mg PO DAILY ondansetron 4 mg tablet,disintegrating 4 mg PO Q6H PRN (Reason: nausea and vomiting) Qty: 20 0RF Primary Care Provider: Nagi Blanc Referrals: Nagi Blanc MD [Primary Care Provider] - Print Language: Sri Lankan
[2025-03-19 11:25] LABS: ALB/GLOB Ratio 1.3 RATIO (0.9-2.4); AST(SGOT) 29 U/L (<=31); Alanine Aminotransfer ALT/SGPT 22 U/L (<=34); Albumin, Serum 4.2 g/dL (3.5-5.0); Alkaline Phosphatase 77 U/L (35-104); Anion Gap 11 (5-15); BUN 7 mg/dL (4-19); BUN/Creat Ratio 8.1 RATIO (10-20); Carbon Dioxide 21.9 mmol/L (21.0-32.0); Chloride 107 mmol/L (98-108); Creatinine, Serum 0.83 mg/dL (0.70-1.20); EST Glomerular Filtration Rate 94 (>60); Estimated Creatinine Clearance 104.09 ml/min (50-250); Globulin 3.3 g/dL (2.2-4.2); Glucose 105 mg/dL (70-99); Potassium 4.2 mmol/L (3.3-5.1); Protein, Total 7.4 g/dL (5.9-8.4); Sodium Level 141 mmol/L (133-145); Total Bilirubin 0.33 mg/dL (0.00-1.30)
[2025-03-19 11:26] LABS: Internal QC Validated? YES +Cl - CLEAR BKGD; Pregnancy, Serum, hCG Quali. NEGATIVE Negative
--- NOTE | 2025-03-19 11:36 | CT_ITS ---
PROCEDURE: ABDOMEN/PELVIS W IV CONT ONLY (procedure code [id number]), 03/19/2025 REASON FOR EXAM: R FLANK PAIN, R/O INFARCT TECHNIQUE: CT abdomen and pelvis was performed with IV contrast. Multiplanar reformats were generated. CONTRAST: Isovue-300 VOLUME: 96mL RADIATION DOSE SUMMARY: CTDlvol: 13.30+ 14.20 mGy DLP: 760.35 mGycm One or more dose reduction techniques were used (e.g., Automated exposure control, adjustment of the mA and/or kV according to patient size, use of iterative reconstruction technique). COMPARISON: None FINDINGS: Lung bases: Unremarkable. Liver: Focal steatosis along the anterior falciform, normal variant. Tiny hypodensity in the anterior RIGHT hepatic dome, too small to characterize, likely cyst or hemangioma in the absence of known malignancy. Spleen: Unremarkable. Gallbladder: Gallbladder not identified, likely surgically absent however there are no visible surgical clips. Mild posterior RIGHT lobe intrahepatic biliary dilatation. Pancreas: Unremarkable. Adrenals: Unremarkable. Kidneys: Nonobstructing intrarenal calculi bilaterally up to 4 mm on the RIGHT. No hydronephrosis or ureteral calculus identified. Bowel: Unremarkable. Normal caliber appendix. Lymph nodes: Unremarkable. Vasculature: Unremarkable. Peritoneum: Unremarkable. Bladder: Underdistended and suboptimally evaluated, grossly unremarkable. Reproductive Organs: 2.4 cm LEFT ovarian presumed dominant follicle/physiologic cyst, incompletely characterized by CT. Body Wall: Mild rectus diastasis.. 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 CT/Abdomen/Pelvis W IV Cont ONLY IMPRESSION: 1. No clear acute findings. Specifically, no hydronephrosis or ureteral calcul us is identified. Bilateral nonobstructing intrarenal calculi up to 4 mm on the RIGHT. 2. Mild RIGHT lobe intrahepatic biliary dilatation is of uncertain significance . Correlate with LFTs and for a history of possible prior cholangitis. Consider outpatient MRCP as indicated. 3. Additional description as above. Reading Location: [facility]
--- NOTE | 2025-03-19 11:39 | EX.ED.DYSGE1 ---
HPI <JERI Singleton - Last Filed: 03/19/25 14:20> History of Present Illness Chief Complaint: Flank Pain Narrative Narrative: Patient presenting today with right-sided flank pain she has had over the past 6 days. She reports that the pain is a aching sensation that radiates to the right side of her abdomen. She has extensive history of kidney stones and was seen at [facility] yesterday and had a CT scan of the abdomen and pelvis that did not show any evidence of ureteral stone. She reports she has had multiple episodes of nausea and vomiting over the past 6 days. She denies fevers, chills, urinary symptoms, diarrhea, and hematemesis. PFSH <JERI Singleton - Last Filed: 03/19/25 14:20> [facility] Medical History Kidney stone Cancer Anemia Migraine headache History of GI bleed Non-smoker Shortness of breath on exertion Leg cramps Hypertension Cardiology follow-up encounter Vitamin D deficiency PTSD (post-traumatic stress disorder) Papillary thyroid carcinoma Lupus Lactose intolerance Fibromyalgia DDD (degenerative disc disease) Congenital hip deformity Congenital heart defect Chronic fatigue Back pain Anxiety Bloating Environmental allergies Asthma Home Medications ?Medication ?Instructions ?Recorded ?Last Taken ?Type albuterol sulfate 90 mcg/actuation 1 - 2 puff inhalation Q4H PRN PRN 11/06/19 Unknown History aerosol inhaler Sob &/Or Wheezing rizatriptan 10 mg tablet (Maxalt) 10 mg PO PRN PRN MIGRAINES 10/28/22 Unknown History tramadol 50 mg tablet 50 mg PO Q6H PRN Pain 04/05/23 03/18/25 History cyclobenzaprine 10 mg tablet 10 mg PO TID PRN Muscle Spasm #20 03/13/24 Unknown Rx TABLETS cariprazine 1.5 mg capsule 1.5 mg PO DAILY 05/13/24 03/18/25 History (José Miguel) ondansetron 4 mg disintegrating 4 mg PO Q6H PRN nausea and 09/01/24 Unknown Rx tablet vomiting #20 tabs promethazine 12.5 mg tablet 12.5 mg PO TID PRN nausea and 01/19/25 03/18/25 Rx vomiting #30 tabs scopolamine base 1 mg over 3 days 1 patch transdermal Q3D PRN nasuea 01/19/25 Unknown Rx transdermal patch #24 ea hydrochlorothiazide 25 mg tablet 25 mg PO DAILY 03/19/25 03/18/25 History hydrocodone-acetaminophen 5-325mg 1 tab PO Q4H PRN PRN Pain 2 days 03/19/25 Unknown Rx 5mg-325mg #8 TABLETS levothyroxine 200 mcg tablet 200 mcg PO DAILY 03/19/25 03/18/25 History levothyroxine 25 mcg tablet 25 mcg PO MOWE 03/19/25 03/14/25 History ondansetron 4 mg disintegrating 4 mg PO Q8H PRN PRN Nausea #10 tabs 03/19/25 Unknown Rx tablet prazosin 2 mg capsule 2 mg PO QHS 03/19/25 03/18/25 History quetiapine 50 mg tablet 50 mg PO QHS 03/19/25 03/18/25 History Allergy/AdvReac Type Severity Reaction Status Date / Time amphetamine (From Adderall) Allergy Severe unknown Verified 03/19/25 10:23 dextroamphetamine (From Allergy Severe unknown Verified 03/19/25 10:23 Adderall) adhesive tape Allergy Intermediate Rash Verified 03/19/25 10:23 morphine Allergy Rash Verified 03/19/25 10:23 Family History Mother Asthma Diabetes Hypertension Crohn's disease Kidney disease Father Hypertension Sister Bone cancer Other Bipolar 1 disorder Surgical History Hx of thyroidectomy Hx of esophagogastroduodenoscopy Hx of colonoscopy History of cystoscopy Hx of tubal ligation History of sinus surgery Hx of cholecystectomy S/P right knee arthroscopy Social History Smoking Status: Never smoker alcohol intake: never ROS <JERI Singleton - Last Filed: 03/19/25 14:20> ROS ED Constitutional Constitutional ED: Denies chills or fever(s) Cardiovascular Cardiovascular: Denies chest pain Respiratory/Chest Respiratory/Chest: Denies dyspnea Gastrointestinal Gastrointestinal: Reports nausea and vomiting; Denies abdominal pain, constipation or diarrhea Genitourinary Genitourinary ED: Denies dysuria, hematuria or urinary urgency Musculoskeletal Musculoskeletal: Reports back pain Integumentary Denies rash Neurologic Neurologic: Denies weakness EXAM <JERI Singleton - Last Filed: 03/19/25 14:20> Physical Exam Const Vital Signs: 03/19/25 10:23 03/19/25 12:26 03/19/25 13:21 Temperature 98.3 F 97.7 F L Temperature Source Oral Pulse Rate 68 66 71 Respiratory Rate 16 17 17 Blood Pressure 153/109 H 144/76 H 123/92 H Blood Pressure Mean 123 98 102 Pulse Ox 100 100 98 Oxygen Delivery Method Room Air Room Air Positive well nourished, well developed and no apparent distress General Appearance ED: well developed HEENT Reports normocephalic and head/scalp atraumatic Mouth ED: Yes moist mucous membranes normal Eyes PERRL and EOMs intact bilaterally Neck full ROM and supple Chest Wall inspection of chest normal Resp normal respiratory effort and clear to auscultation bilaterally Cardio regular rate and regular rhythm GI soft to palpation, non-tender, non-distended and no masses Back/Spine normal ROM and normal to inspection General Back: CVA tenderness right Extremity normal to inspection and full ROM Neuro oriented x3, CN's II-XII intact bilaterally, moves all extremities, no focal motor deficits and no sensory deficits noted Sensorium / Orientation: awake and alert Psych mental status grossly normal and thought process normal Skin no rashes or lesions noted and no wounds <Dr. Jose Antonio Kee DO - Last Filed: 03/19/25 15:03> Physical Exam Const Vital Signs: 03/19/25 10:23 03/19/25 12:26 03/19/25 13:21 Temperature 98.3 F 97.7 F L Temperature Source Oral Pulse Rate 68 66 71 Respiratory Rate 16 17 17 Blood Pressure 153/109 H 144/76 H 123/92 H Blood Pressure Mean 123 98 102 Pulse Ox 100 100 98 Oxygen Delivery Method Room Air Room Air MDM <JERI Singleton - Last Filed: 03/19/25 14:20> MDM MDM Narrative Medical decision making narrative: I did review outside records [facility], she had a CT scan of the abdomen and pelvis without contrast performed yesterday at [facility], this showed nonobstructing bilateral renal calculi, no evidence of hydronephrosis or ureteral calculus. Her UA yesterday was negative for UTI or blood in the urine and her CBC and CMP were unremarkable. Labs repeated today, her CBC and CMP are unremarkable, serum hCG negative. CT abdomen pelvis with IV contrast obtained to assess for renal infarct, kidney stone, and other abnormality. This shows no acute findings, no hydronephrosis or ureteral calculus, she has bilateral intrarenal calculi. Mild right biliary dilatation, she has no elevation of her LFTs, leukocytosis, or right upper quadrant abdominal pain/tenderness. She was given IV Toradol and Zofran here. She reports still having some pain and was given a Og[place]by. I will give her prescriptions for Zofran and a short course of Og[place]by for her pain. I did give her a referral to Dr. Gonzáles and also recommended she see her PCP. She will be discharged home in stable condition. Lab Data Attestation: I reviewed the patient's lab results. Labs: Laboratory Results - last 24 hr 03/19/25 03/19/25 10:35 11:56 WBC 9.8 RBC 5.13 Hgb 14.4 Hct 41.4 MCV 80.7 L MCH 28.1 MCHC 34.8 RDW Std Deviation 39.2 RDW Coeff of Ame 13.4 Plt Count 252 MPV 10.0 Immature Gran % (Auto) 0.600 Neut % (Auto) 65.7 Lymph % (Auto) 26.3 [place] % (Auto) 3.8 Eos % (Auto) 3.3 Baso % (Auto) 0.3 Absolute Neuts (auto) 6.5 Absolute Lymphs (auto) 2.58 Nucleated RBC % 0 Sodium 141 Potassium 4.2 Chloride 107 Carbon Dioxide 21.9 Anion Gap 11 BUN 7 Creatinine 0.83 Estim Creat Clear Calc 104.09 Est GFR (MDRD) Non-Af 94 BUN/Creatinine Ratio 8.1 L Glucose 105 H Calcium 9.0 Total Bilirubin 0.33 AST 29 ALT 22 Alkaline Phosphatase 77 Total Protein 7.4 Albumin 4.2 Globulin 3.3 Albumin/Globulin Ratio 1.3 Serum , Qual NEGATIVE Urine Color Yellow Urine Clarity Sl. Cloudy Urine pH 6.0 Ur Specific [place] 1.025 Urine Protein 15 H Urine Glucose (UA) Normal Urine Ketones Negative Urine Occult Blood Negative Urine Nitrite Negative Urine Bilirubin Negative Urine Urobilinogen Normal Ur Leukocyte Esterase 500 H Urine RBC 0 SEEN Urine WBC 0-5 SEEN Ur Squamous Epith Cells 10-25 SEEN Urine Bacteria 0 SEEN Urine Mucus 0 SEEN Radiography Diagnostic Testing: Clinical Impression(s) from Imaging Studies Abdomen/Pelvis CT 03/19/25 11:36 IMPRESSION: 1. No clear acute findings. Specifically, no hydronephrosis or ureteral calculus is identified. Bilateral nonobstructing intrarenal calculi up to 4 mm on the RIGHT. 2. Mild RIGHT lobe intrahepatic biliary dilatation is of uncertain significance. Correlate with LFTs and for a history of possible prior cholangitis. Consider outpatient MRCP as indicated. 3. Additional description as above. Reading Location: [id number] <Dr. Jose Antonio Kee, DO - Last Filed: 03/19/25 15:03> [facility] History & Record Review Discussion w/independent historian: Patient Additional record(s) reviewed:: Prior outpatient record, Prior ED visit and Prior labs Lab Data Labs: Laboratory Results - last 24 hr 03/19/25 03/19/25 10:35 11:56 WBC 9.8 RBC 5.13 Hgb 14.4 Hct 41.4 MCV 80.7 L MCH 28.1 MCHC 34.8 RDW Std Deviation 39.2 RDW Coeff of Ame 13.4 Plt Count 252 MPV 10.0 Immature Gran % (Auto) 0.600 Neut % (Auto) 65.7 Lymph % (Auto) 26.3 [place] % (Auto) 3.8 Eos % (Auto) 3.3 Baso % (Auto) 0.3 Absolute Neuts (auto) 6.5 Absolute Lymphs (auto) 2.58 Nucleated RBC % 0 Sodium 141 Potassium 4.2 Chloride 107 Carbon Dioxide 21.9 Anion Gap 11 BUN 7 Creatinine 0.83 Estim Creat Clear Calc 104.09 Est GFR (MDRD) Non-Af 94 BUN/Creatinine Ratio 8.1 L Glucose 105 H Calcium 9.0 Total Bilirubin 0.33 AST 29 ALT 22 Alkaline Phosphatase 77 Total Protein 7.4 Albumin 4.2 Globulin 3.3 Albumin/Globulin Ratio 1.3 Serum , Qual NEGATIVE Urine Color Yellow Urine Clarity Sl. Cloudy Urine pH 6.0 Ur Specific [place] 1.025 Urine Protein 15 H Urine Glucose (UA) Normal Urine Ketones Negative Urine Occult Blood Negative Urine Nitrite Negative Urine Bilirubin Negative Urine Urobilinogen Normal Ur Leukocyte Esterase 500 H Urine RBC 0 SEEN Urine WBC 0-5 SEEN Ur Squamous Epith Cells 10-25 SEEN Urine Bacteria 0 SEEN Urine Mucus 0 SEEN Radiography Diagnostic Testing: Clinical Impression(s) from Imaging Studies Abdomen/Pelvis CT 03/19/25 11:36 IMPRESSION: 1. No clear acute findings. Specifically, no hydronephrosis or ureteral calculus is identified. Bilateral nonobstructing intrarenal calculi up to 4 mm on the RIGHT. 2. Mild RIGHT lobe intrahepatic biliary dilatation is of uncertain significance. Correlate with LFTs and for a history of possible prior cholangitis. Consider outpatient MRCP as indicated. 3. Additional description as above. Reading Location: [id number] Treatment and Re-Evaluation :: I have personally performed a face to face assessment of the patient and have reviewed the WU Note. I performed a substantive portion of the visit including all aspects of the following. My tai findings include: History is 35-year-old female senting with right flank pain. Patient states that the pain has been present in the right CVA area for about 6 days. She was seen at another emergency department last night where she underwent CT and was found to have a stone in the kidney but no obvious stone in the ureter. No reported UTI. Patient returns here today stating that her doctor told her to come to the emergency get reevaluated in case they missed the stone. Exam is afebrile vital signs are stable. Patient reports tenderness in the right CVA region. No ecchymosis no rash. Medical Decison Making basic blood work urinalysis and a CT with IV contrast was obtained. I do not see an obvious renal artery infarct. I do not see obvious infection in the urine. I do not have a clear etiology for her pain. Patient was given pain medication and advised with primary care. Discharge Plan Triage Chief Complaint: Flank Pain ED Midlevel Provider: Ester Blas ED Provider: Jose Antonio Kee Dx/Rx/DC Orders Clinical Impression: Right flank pain, Nausea & vomiting Instructions: ED Flank Pain, Uncertain Cause, ED Vomiting (Adult) Prescriptions: New hydrocodone-acetaminophen 5-325 mg tablet 1 tab PO Q4H PRN PRN (Reason: Pain) 2 Days Qty: 8 0RF ondansetron 4 mg tablet,disintegrating 4 mg PO Q8H PRN PRN (Reason: Nausea) Qty: 10 0RF No Action rizatriptan [Maxalt] 10 mg tablet 10 mg PO PRN PRN (Reason: MIGRAINES) scopolamine base 1 mg over 3 days patch 3 day 1 patch transdermal Q3D PRN (Reason: nasuea ) Qty: 24 2RF promethazine 12.5 mg tablet 12.5 mg PO TID PRN (Reason: nausea and vomiting) Qty: 30 2RF albuterol sulfate 1 INHALER inhaler 1 - 2 puff inhalation Q4H PRN MDD \ PRN (Reason: Sob &/Or Wheezing) tramadol 50 mg Tablet 50 mg PO Q6H PRN (Reason: Pain) cyclobenzaprine 10 mg tablet 10 mg PO TID PRN (Reason: Muscle Spasm) Qty: 20 0RF Vraylar 1.5 mg capsule 1.5 mg PO DAILY ondansetron 4 mg tablet,disintegrating 4 mg PO Q6H PRN (Reason: nausea and vomiting) Qty: 20 0RF hydrochlorothiazide 25 mg tablet 25 mg PO DAILY prazosin 2 mg capsule 2 mg PO QHS quetiapine 50 mg tablet 50 mg PO QHS levothyroxine 200 mcg tablet 200 mcg PO DAILY levothyroxine 25 mcg tablet 25 mcg PO MOWE Rx Instructions: WITH 200MCG Primary Care Provider: Nagi Blanc Referrals: Nagi Blanc MD [Primary Care Provider] - 3-5 Days if not improving Activity Restrictions/Additional Instructions: Follow-up with your PCP and return for worsening symptoms. Print Language: Icelandic Disposition Disposition: Home, Self Care Discharge Date/Time: 03/19/25 13:29
[2025-03-19] MEDS: 0.9% Normal Saline (1000mL) 1,000 ML 999 ML IV (11:51)
[2025-03-19] MEDS: Ondansetron 4 MG/2 ML Vial IV (11:51)
[2025-03-19] MEDS: Ketorolac 30 MG/ML Syringe IV (11:51)
[2025-03-19 12:01] LABS: Bacteria 0 SEEN /hpf (None Seen); Mucous, Urine 0 SEEN /hpf (<or=2+); Red Blood Cells-Urine 0 SEEN /hpf (0-5)
[2025-03-19 12:13] LABS: Color, Urine Yellow (Yellow); Glucose, Dipstick Normal (Normal); Ketone-Dipstick Negative (Negative); Leukocyte Esterase-Dipstick 500 /ul (Negative); Nitrite-Dipstick Negative (Negative); Occult Blood-Urine Negative /ul (Negative); Protein-Dipstick 15 mg/dl (Negative); Specific Gravity, Urine 1.025 (1.002-1.030); Urine Bilirubin Dipstick Negative (Negative); Urine Clarity Sl. Cloudy (Clear); Urine Urobilinogen Normal (Normal)
[2025-03-19 12:18] LABS: Squamous Epithelial Cells - UA 10-25 SEEN /hpf (5-10)
[2025-03-19 12:19] LABS: White Blood Cells 0-5 SEEN /hpf (0-5)
[2025-03-19 12:26] VITALS: BP 144/76; PULSE 66; RESP 17; O2SAT 100
[2025-03-19] MEDS: HYDROcodone Bitartrate/Apap 5/325 Tablet PO (13:20)
[2025-03-19 13:21] VITALS: BP 123/92; PULSE 71; RESP 17; TEMP 36.5; O2SAT 98
--- NOTE | 2025-03-19 13:29 | ED.RN ---
SPOKE WITH AND WROTE DOWN REFERRAL FOR DR. BAKARI PRECIADO AFTER D/C PAPERWORK WAS PRINTED. SHE NEEDED AN ALTERNATE D/T INSURANCE ISSUES
== END 2025-03-19 13:29 | disposition home or self-care (01) ==
PROVIDERS: Emergency Provider Emergency Medicine; PCP Family Medicine; Visit Provider Emergency Medicine
DX: R10.9 Unspecified abdominal pain (principal); R11.2 Nausea with vomiting, unspecified; I10 Essential (primary) hypertension; Z90.49 Acquired absence of other specified parts of digestive tract; Z98.51 Tubal ligation status
CPT/HCPCS: 74177; 80053; 81001; 84703; 85025; 96361; 96374; 96375; 99282; Q9967; A4216; J2405

== ENCOUNTER → 2025-03-22 | Outpatient (CLI) | payer MEDICAID, SELFPAY ==
--- NOTE | 2025-03-22 08:37 | NM_ITS ---
PROCEDURE: GASTRIC EMPTYING STUDY - 4 HR 03/22/2025 REASON FOR EXAM: GASTROPARESIS. Nausea and vomiting. COMPARISON: 2 eggs TECHNIQUE: The patient ingested a standard meal of cooked egg whites mixed with , 2 slices toasted white bread, 2 pads of butter, and water. There was no vomiting postprandially. Anterior and posterior planar images of the upper abdomen were obtained for 1 minute immediately following the meal at 1h, 2h and 4h if more than 10% of the activity persisted within the stomach. Regions of interest were drawn, and a geometric mean was used to calculate a [id number]. Medications taken in the past 24 hours that may affect gastric emptying: None RADIOPHARMACEUTICAL: 1.2 mCi technetium 99 M sulfur colloid orally, with the solid food. FINDINGS: Percent activity remaining in stomach: 1 hour 61 % (normal 37-90%) 2 hours: 43 % (normal 30-60%) 235 minutes: 11 % (normal 0-10%) NM/Gastric Emptying Study - 4 HR IMPRESSION: No significant delay in solid phase gastric emptying. Reading Location: [place] [id number]
== END | disposition home or self-care (01) ==
LOC: NM 08:34
PROVIDERS: PCP Family Medicine; Referring Provider Student in an Organized Health Care Education/Training Program; Visit Provider Student in an Organized Health Care Education/Training Program
DX: K31.84 Gastroparesis (principal)
CPT/HCPCS: 78264; A9541

== ENCOUNTER → 2025-04-09 | Outpatient (CLI) | payer MEDICAID, SELFPAY ==
--- NOTE | 2025-04-09 11:09 | RAD_ITS ---
PROCEDURE: ABDOMEN SINGLE VIEW 04/09/2025 REASON FOR EXAM: KUB- KIDNEY STONES TECHNIQUE: Frontal views of the abdomen. COMPARISON: CT abdomen and pelvis 03/19/2020 FINDINGS: Bowel gas: Bowel gas pattern is normal. No evidence of bowel obstruction. Calcifications: No suspicious calcifications. Stones seen on recent CT are not definitely identified on this exam. Bones: The bones are unremarkable. RAD/Abdomen Single View IMPRESSION: No pathologic calcification identified by radiographs. Reading Location: [facility]
== END | disposition home or self-care (01) ==
LOC: MTRAD 11:07
PROVIDERS: PCP Family Medicine; Referring Provider Urology; Visit Provider Urology
DX: N20.0 Calculus of kidney (principal)
CPT/HCPCS: 74018

== ENCOUNTER 2025-04-17 15:01 | Emergency (ER) | payer MEDICAID, SELFPAY ==
[2025-04-17 15:02] VITALS: BP 142/115; PULSE 93; RESP 16; TEMP 36.9; O2SAT 98; BMI 32.2
--- NOTE | 2025-04-17 16:19 | CT_ITS ---
PROCEDURE: ABDOMEN/PELVIS W IV CONT ONLY 04/17/2025 REASON FOR EXAM: RLQ PAIN, N/V, NEEDS MRCP TECHNIQUE: Abdomen and pelvis CT with intravenous contrast. Coronal and Sagittal reconstruction series were provided. PATIENT PREPARATION: Per protocol ORAL CONTRAST TYPE: None. AMOUNT: mL CONTRAST: Isovue 370 VOLUME: 98 mL Not Provided Gauge IV One or more dose reduction techniques were used (e.g., Automated exposure control, adjustment of the mA and/or kV according to patient size, use of iterative reconstruction technique. RADIATION DOSE SUMMARY: CTDlvol: 31 mGy DLP: 1098 mGycm COMPARISON: CT of the abdomen and pelvis dated March 19, 2025 FINDINGS: Lung bases: Mild dependent atelectasis Liver: Focal hepatic ductal dilatation involving the right hepatic lobe, similar in appearance to the prior study. Gallbladder: Surgically absent Spleen: Normal size. Pancreas: Normal size without evidence of mass surrounding inflammation or ductal dilation. Adrenals: Unremarkable Kidneys: 3 mm nonobstructing right renal calculus. No evidence of hydronephrosis bilaterally. Tiny nonobstructing left renal calculi. Bladder: Unremarkable Reproductive Organs: The uterus is grossly unremarkable. Bilateral ovarian cysts. Bowel: Evaluation of the bowel loops are limited due to lack of oral contrast. The stomach is unremarkable. Fluid-filled distal small bowel within the pelvis, no wall thickening or dilatation. Fluid-filled right colon, no inflammatory changes are demonstrated. Appendix: Unremarkable Lymph nodes: No lymphadenopathy. Vasculature: Unremarkable Peritoneum / Retroperitoneum: No free fluid. Bones: Unremarkable CT/Abdomen/Pelvis W IV Cont ONLY IMPRESSION: Fluid-filled distal small bowel within the pelvis and fluid-filled right colon, no wall thickening or dilatation is demonstrated. This may represent enteritis. Bilateral nonobstructing renal calculi. Focal hepatic ductal dilatation involving the right hepatic lobe. This is torri lar in appearance to the prior study. OVERALL FINAL ASSESSMENT: . LI-RADS is not meant to be used in patients <18 years or patients with cirrhosi s due to congenital hepatic fibrosis or due to vascular disorders, because these patients have a lower chance of developing HC C. Reading Location: [facility]
--- NOTE | 2025-04-17 16:54 | EX.ED.DYSGE1 ---
HPI History of Present Illness Chief Complaint: Abd Pain Narrative Narrative: Patient is a 35-year-old female with past medical history of thyroid cancer status postresection, anxiety, asthma, fibromyalgia, PTSD, hypertension who presents to the emergency department the chief complaint of abdominal pain nausea vomiting. Patient states that she has been vomiting nonstop for the past 2 days not able to keep anything down. States that she will have pain that waxes and wanes and notes that she originally followed up with urology for kidney stones and they stated that this was not causing her pain she then followed up with Dr. Cole and she is scheduled for a MRCP on May 10 however she states that the pain has become unbearable the last few days with the inability to tolerate oral intake therefore she came here for further evaluation management. Denies any recent contacts [facility] Medical History Kidney stone Cancer Anemia Migraine headache History of GI bleed Non-smoker Shortness of breath on exertion Leg cramps Hypertension Cardiology follow-up encounter Vitamin D deficiency PTSD (post-traumatic stress disorder) Papillary thyroid carcinoma Lupus Lactose intolerance Fibromyalgia DDD (degenerative disc disease) Congenital hip deformity Congenital heart defect Chronic fatigue Back pain Anxiety Bloating Environmental allergies Asthma Home Medications ?Medication ?Instructions ?Recorded ?Last Taken ?Type albuterol sulfate 90 mcg/actuation 1 - 2 puff inhalation Q4H PRN PRN 11/06/19 Unknown History aerosol inhaler Sob &/Or Wheezing rizatriptan 10 mg tablet (Maxalt) 10 mg PO PRN PRN MIGRAINES 10/28/22 Unknown History tramadol 50 mg tablet 50 mg PO Q6H PRN Pain 04/05/23 03/18/25 History cyclobenzaprine 10 mg tablet 10 mg PO TID PRN Muscle Spasm #20 03/13/24 Unknown Rx TABLETS cariprazine 1.5 mg capsule 1.5 mg PO DAILY 05/13/24 03/18/25 History (José Miguel) ondansetron 4 mg disintegrating 4 mg PO Q6H PRN nausea and 09/01/24 Unknown Rx tablet vomiting #20 tabs scopolamine base 1 mg over 3 days 1 patch transdermal Q3D PRN nasuea 01/19/25 Unknown Rx transdermal patch #24 ea hydrochlorothiazide 25 mg tablet 25 mg PO DAILY 03/19/25 03/18/25 History hydrocodone-acetaminophen 5-325mg 1 tab PO Q4H PRN PRN Pain 2 days 03/19/25 Unknown Rx 5mg-325mg #8 TABLETS levothyroxine 200 mcg tablet 200 mcg PO DAILY 03/19/25 03/18/25 History levothyroxine 25 mcg tablet 25 mcg PO MOWE 03/19/25 03/14/25 History ondansetron 4 mg disintegrating 4 mg PO Q8H PRN PRN Nausea #10 tabs 03/19/25 Unknown Rx tablet prazosin 2 mg capsule 2 mg PO QHS 03/19/25 03/18/25 History quetiapine 50 mg tablet 50 mg PO QHS 03/19/25 03/18/25 History promethazine 12.5 mg tablet 12.5 mg PO TID PRN nausea and 04/10/25 Unknown Rx vomiting #30 tabs promethazine 25 mg rectal 25 mg CO Q6H PRN nausea and 04/17/25 Unknown Rx suppository vomiting #12 ea Allergy/AdvReac Type Severity Reaction Status Date / Time amphetamine (From Adderall) Allergy Severe unknown Verified 04/17/25 15:05 dextroamphetamine (From Allergy Severe unknown Verified 04/17/25 15:05 Adderall) adhesive tape Allergy Intermediate Rash Verified 04/17/25 15:05 morphine Allergy Rash Verified 04/17/25 15:05 Family History Mother Asthma Diabetes Hypertension Crohn's disease Kidney disease Father Hypertension Sister Bone cancer Other Bipolar 1 disorder Surgical History Hx of thyroidectomy Hx of esophagogastroduodenoscopy Hx of colonoscopy History of cystoscopy Hx of tubal ligation History of sinus surgery Hx of cholecystectomy S/P right knee arthroscopy Social History Smoking Status: Never smoker alcohol intake: never ROS ROS ED ROS Narrative Constitutional: Denies any fevers or chills, headaches, lightness, dizziness Eyes: Denies change in vision double vision blurry vision Cardiovascular: Denies chest pain Respiratory: Denies coughing wheezing shortness of breath Abdomen: Complains of nausea and vomiting abdominal pain as noted above : Denies urinary symptoms Neurological: Denies numbness, weakness, tingling Musculoskeletal: Denies back pain Skin: Denies rashes or lesions EXAM Physical Exam Narrative Exam Narrative: General: Patient lying in bed rest comfortably did not appear to be in acute distress Head: Atraumatic, normocephalic Eyes: PERRL bilaterally, EOMI bilaterally, no conjunctival injection noted Neck: Soft, supple, trachea midline Cardiovascular: Regular rate and rhythm no murmurs gallops rubs noted Respiratory: Clear to auscultation bilaterally Abdomen: Soft, nondistended, tender to palpation diffusely throughout abdomen did have more point tenderness in the right lower quadrant and in the epigastric region no rebound or guarding on exam Extremities: +5/5 strength noted in the bilateral upper and lower extremities Neurological: Patient following commands that she was at [facility] years 2024 Skin: Warm, dry contact no rashes or lesions noted Const Vital Signs: 04/17/25 15:02 04/17/25 17:01 04/17/25 18:54 Temperature 98.5 F Temperature Source Oral Pulse Rate 93 70 Respiratory Rate 16 89 H Blood Pressure 142/115 H 138/102 H 145/108 H Blood Pressure Mean 124 114 120 Pulse Ox 98 100 97 Oxygen Delivery Method Room Air Room Air 04/17/25 20:59 Temperature Temperature Source Pulse Rate 73 Respiratory Rate Blood Pressure 135/104 H Blood Pressure Mean 114 Pulse Ox 99 Oxygen Delivery Method Room Air MDM MDM MDM Narrative Medical decision making narrative: Patient is a 35-year-old female who presented to the emergency department with a chief complaint of abdominal pain nausea vomiting not tolerating oral intake. On the differential diagnose includes but not limited to bowel obstruction, choledocholithiasis, pancreatitis, appendicitis, viral gastroenteritis, gastroparesis. Once workup is obtained reviewed she will be reevaluated. Patient be IV fluids and Zofran. Patient's CBC was reviewed showed a mild leukocytosis of 11,000, hemoglobin 15.2, platelet count was noted to be 246. Patient's sodium normal at 139, potassium normal 3.5, creatinine was 0.88. Patient's AST and ALT were normal at 29 and 20 respectively with a normal total bilirubin of 0.75. Patient lipase normal at 43, test was negative, urinalysis showed 100 leukocyte esterase negative nitrates 5-10 white cells with no bacteria noted she does not have any urinary symptoms. Patient CT abdomen pelvis with IV contrast was reviewed and showed fluid-filled distal small bowel within the pelvis and fluid-filled right colon no wall thickening or dilation is demonstrated this may represent enteritis. Bilateral nonobstructing renal calculi focal hepatic ductal dilation along the right hepatic lobe which is similar in appearance to prior study. On reevaluation the patient she states that she is still having pain and nauseous however given her allergies and inability to take multiple medications secondary to interactions with her other medications we will try Valium. On reevaluation of the patient she states that she was still nauseous and I offered her admission for intractable nausea and vomiting of unclear etiology and she states that she would rather go home and return with worsening symptoms or concerns. Once again the patient and she would like to go home at this point in time. We will prescribed rectal Phenergan since her oral Phenergan she is vomiting at home. She was encouraged to follow-up with Dr. Cole in the outpatient setting return for worsening symptoms or any concerns. Lab Data Labs: Laboratory Results - last 24 hr 04/17/25 04/17/25 16:57 18:10 WBC 11.1 H RBC 5.39 Hgb 15.2 H Hct 44.0 MCV 81.6 MCH 28.2 MCHC 34.5 RDW Std Deviation 41.6 RDW Coeff of Ame 14.2 Plt Count 246 MPV 9.9 Immature Gran % (Auto) 0.800 Neut % (Auto) 79.0 H Lymph % (Auto) 14.1 L [place] % (Auto) 5.0 Eos % (Auto) 0.8 Baso % (Auto) 0.3 Absolute Neuts (auto) 8.8 H Absolute Lymphs (auto) 1.57 Nucleated RBC % 0 Sodium 139 Potassium 3.5 Chloride 102 Carbon Dioxide 23.4 Anion Gap 14 BUN 10 Creatinine 0.88 Estim Creat Clear Calc 98.58 Est GFR (MDRD) Non-Af 88 BUN/Creatinine Ratio 11.4 Glucose 85 Calcium 8.6 Total Bilirubin 0.75 AST 29 ALT 20 Alkaline Phosphatase 90 Total Protein 8.0 Albumin 4.6 Globulin 3.5 Albumin/Globulin Ratio 1.3 Lipase 43 Serum , Qual NEGATIVE Urine Color Yellow Urine Clarity Cloudy Urine pH 7.0 Ur Specific Bard 1.010 Urine Protein 30 H Urine Glucose (UA) Normal Urine Ketones Negative Urine Occult Blood 50 H Urine Nitrite Negative Urine Bilirubin Negative Urine Urobilinogen 1 H Ur Leukocyte Esterase 100 H Urine RBC 0-5 SEEN Urine WBC 5-10 SEEN Ur Squamous Epith Cells 5-10 SEEN Urine Bacteria 0 SEEN Urine Mucus 0 SEEN Radiography Diagnostic Testing: Clinical Impression(s) from Imaging Studies Abdomen/Pelvis CT 04/17/25 16:19 IMPRESSION: Fluid-filled distal small bowel within the pelvis and fluid-filled right colon, no wall thickening or dilatation is demonstrated. This may represent enteritis. Bilateral nonobstructing renal calculi. Focal hepatic ductal dilatation involving the right hepatic lobe. This is similar in appearance to the prior study. OVERALL FINAL ASSESSMENT: . LI-RADS is not meant to be used in patients <18 years or patients with cirrhosis due to congenital hepatic fibrosis or due to vascular disorders, because these patients have a lower chance of developing HCC. Reading Location: [facility] Discharge Plan Triage Chief Complaint: Abd Pain ED Provider: Ludin Adams Dx/Rx/DC Orders Clinical Impression: Nausea & vomiting Prescriptions: New promethazine 25 mg suppository 25 mg CO Q6H PRN (Reason: nausea and vomiting) Qty: 12 0RF No Action rizatriptan [Maxalt] 10 mg tablet 10 mg PO PRN PRN (Reason: MIGRAINES) scopolamine base 1 mg over 3 days patch 3 day 1 patch transdermal Q3D PRN (Reason: nasuea ) Qty: 24 2RF promethazine 12.5 mg tablet 12.5 mg PO TID PRN (Reason: nausea and vomiting) Qty: 30 2RF albuterol sulfate 1 INHALER inhaler 1 - 2 puff inhalation Q4H PRN MDD \ PRN (Reason: Sob &/Or Wheezing) tramadol 50 mg Tablet 50 mg PO Q6H PRN (Reason: Pain) cyclobenzaprine 10 mg tablet 10 mg PO TID PRN (Reason: Muscle Spasm) Qty: 20 0RF Vraylar 1.5 mg capsule 1.5 mg PO DAILY ondansetron 4 mg tablet,disintegrating 4 mg PO Q6H PRN (Reason: nausea and vomiting) Qty: 20 0RF hydrochlorothiazide 25 mg tablet 25 mg PO DAILY prazosin 2 mg capsule 2 mg PO QHS quetiapine 50 mg tablet 50 mg PO QHS levothyroxine 200 mcg tablet 200 mcg PO DAILY levothyroxine 25 mcg tablet 25 mcg PO MOWE Rx Instructions: WITH 200MCG hydrocodone-acetaminophen 5-325 mg tablet 1 tab PO Q4H PRN PRN (Reason: Pain) 2 Days Qty: 8 0RF ondansetron 4 mg tablet,disintegrating 4 mg PO Q8H PRN PRN (Reason: Nausea) Qty: 10 0RF Primary Care Provider: Nagi Blanc Referrals: Nagi Blanc MD [Primary Care Provider] - Activity Restrictions/Additional Instructions: Your blood work did not show any acute findings here today and your CT was overall normal did not show any acute surgical findings. Follow-up with Dr. oCle outpatient setting use the Phenergan suppositories as prescribed. Return with worsening symptoms or concerns as we discussed here. Print Language: Mongolian Disposition Disposition: Home, Self Care
[2025-04-17] MEDS: 0.9% Normal Saline (1000mL) 1,000 ML 999 ML IV (16:55)
[2025-04-17] MEDS: Ondansetron 4 MG/2 ML Vial IV (16:55)
[2025-04-17 17:01] VITALS: BP 138/102; RESP 89; O2SAT 100
[2025-04-17 17:14] LABS: Absolute Lymphocyte Count 1.57 X10^3/uL (0.83-4.51); Absolute Neutrophil Count 8.8 X10^3/uL (2.0-7.7); Basophil# 0.03 X10^3/uL; Basophil% 0.3 % (0-1); Eosinophil# 0.09 X10^3/uL; Eosinophils% 0.8 % (0-5); Hemoglobin 15.2 g/dL (12.0-15.0); Lymphocyte # 1.57 X10^3/ul (0.83-4.51); Lymphocyte % 14.1 % (19-41); Mean Corp Hgb Conc 34.5 g/dL (32-36); Mean Corpuscular Hgb 28.2 pg (27.0-32.0); Mean Corpuscular Volume 81.6 fL (81-99); Mean Platelet Vol. 9.9 fl (6.2-12.0); Monocyte# 0.55 X10^3/uL; NRBC Flagged by Analyzer 0 % (0-5); Neutrophil # 8.78 X10^3/uL (2.7-7.7); Platelet Count 246 K/mm3 (150-450); RBC Distribution Width CV 14.2 % (11.6-14.6); RBC Distribution Width SD 41.6 fl (35.1-43.9); Red Blood Count 5.39 M/mm3 (4.2-5.4); White Blood Count 11.1 K/mm3 (4.4-11.0)
[2025-04-17 17:28] LABS: Internal QC Validated? YES +Cl - CLEAR BKGD; Pregnancy, Serum, hCG Quali. NEGATIVE Negative; Record Kit Lot#, Serum Preg. 947241
[2025-04-17 17:51] LABS: ALB/GLOB Ratio 1.3 RATIO (0.9-2.4); AST(SGOT) 29 U/L (<=31); Alanine Aminotransfer ALT/SGPT 20 U/L (<=34); Albumin, Serum 4.6 g/dL (3.5-5.0); Alkaline Phosphatase 90 U/L (35-104); Anion Gap 14 (5-15); BUN 10 mg/dL (4-19); BUN/Creat Ratio 11.4 RATIO (10-20); Calcium,Total 8.6 mg/dL (7.6-11.0); Carbon Dioxide 23.4 mmol/L (21.0-32.0); Chloride 102 mmol/L (98-108); Creatinine, Serum 0.88 mg/dL (0.70-1.20); EST Glomerular Filtration Rate 88 (>60); Estimated Creatinine Clearance 98.58 ml/min (50-250); Globulin 3.5 g/dL (2.2-4.2); Glucose 85 mg/dL (70-99); Potassium 3.5 mmol/L (3.3-5.1); Sodium Level 139 mmol/L (133-145); Total Bilirubin 0.75 mg/dL (0.00-1.30)
[2025-04-17] MEDS: Ketorolac 15 MG/ML Vial IV (17:59)
[2025-04-17 18:14] LABS: Bacteria 0 SEEN /hpf (None Seen); Mucous, Urine 0 SEEN /hpf (<or=2+)
[2025-04-17 18:38] LABS: Color, Urine Yellow (Yellow); Glucose, Dipstick Normal (Normal); Ketone-Dipstick Negative (Negative); Leukocyte Esterase-Dipstick 100 /ul (Negative); Nitrite-Dipstick Negative (Negative); Occult Blood-Urine 50 /ul (Negative); Protein-Dipstick 30 mg/dl (Negative); Urine Bilirubin Dipstick Negative (Negative); Urine Clarity Cloudy (Clear); Urine Urobilinogen 1 mg/dl (Normal)
[2025-04-17 18:54] VITALS: BP 145/108; PULSE 70; O2SAT 97
[2025-04-17 19:23] LABS: White Blood Cells 5-10 SEEN /hpf (0-5)
[2025-04-17 19:24] LABS: Red Blood Cells-Urine 0-5 SEEN /hpf (0-5); Squamous Epithelial Cells - UA 5-10 SEEN /hpf (5-10)
[2025-04-17 19:29] LABS: Lipase 43 U/L (13-75)
[2025-04-17] MEDS: diazePAM 2 MG Tablet PO (20:58)
[2025-04-17 20:59] VITALS: BP 135/104; PULSE 73; O2SAT 99
[2025-04-17 22:01] VITALS: BP 163/105; PULSE 63; RESP 16; TEMP 36.9; O2SAT 97
== END 2025-04-17 22:10 | disposition home or self-care (01) ==
PROVIDERS: Emergency Provider Emergency Medicine; PCP Family Medicine; Visit Provider Emergency Medicine
DX: R11.2 Nausea with vomiting, unspecified (principal); R10.9 Unspecified abdominal pain; I10 Essential (primary) hypertension; F41.9 Anxiety disorder, unspecified; Z90.49 Acquired absence of other specified parts of digestive tract; Z98.51 Tubal ligation status; J45.909 Unspecified asthma, uncomplicated; Z85.850 Personal history of malignant neoplasm of thyroid; M79.7 Fibromyalgia; F43.10 Post-traumatic stress disorder, unspecified; N20.0 Calculus of kidney
CPT/HCPCS: 74177; 80053; 81001; 83690; 84703; 85025; 99282; Q9967; A4216; J2405

== ENCOUNTER → 2025-04-24 | Outpatient (CLI) | payer MEDICAID, SELFPAY ==
--- NOTE | 2025-04-24 07:24 | MRI_ITS ---
EXAM: MRCP ABDOMEN WITHOUT CONTRAST CLINICAL HISTORY: BILLIARY DILATATION COMPARISON: CT abdomen and pelvis 04/17/2025 and 03/13/2024 TECHNIQUE: MRI of the abdomen with exam tailored to evaluate the biliary tree and the pancreas was performed without contrast. Heavily T2-weighted MRCP sequences were also obtained. FINDINGS: Hepatobiliary Findings: Bile ducts: Mild intrahepatic biliary ductal dilatation in the right hepatic lobe is again unchanged. Incomplete imaging of the common bile duct and right intrahepatic bile duct confluence limits this evaluation. The common bile duct is normal in caliber with smooth tapering to the level of the ampulla. No obstructing mass or calculus is identified. Liver: Unremarkable. Gallbladder: Surgically absent. Pancreas: Unremarkable. Additional Findings: Lung bases: Trace bilateral pleural effusions, [id number].. Spleen: Unremarkable. Adrenals: Unremarkable. Kidneys and ureters: Unremarkable. Known renal stones are better evaluated on recent CT. Bowel: Visualized bowel are nondilated. Lymph nodes: Unremarkable. Peritoneum: Unremarkable. Vessels: Unremarkable. Retroperitoneum: Unremarkable. Abdominal wall: Unremarkable. Bones: Unremarkable. MRI/MRCP Abdomen without Contrast IMPRESSION: 1. Slightly limited exam. Mild right intrahepatic biliary ductal dilatation i s again unchanged and may be normal postoperative appearance in this patient with prior cholecystectomy. No extrahepatic biliary ductal dilatation or stone. Correlate with symptoms and laboratory analysis. 2. Trace bilateral pleural effusions, [id number]. Reading Location: [id number]
--- OUTSIDE RECORDS SUMMARY | 2025-04-24 07:34 | XMS RPT_ITS | CCD ---
Author Organization [facility] Care Team Providers Care Marketing Intern Name Role Phone Nagi Red MD Primary Care Provider Nagi Red MD Unavailable [phone] Nagi Red MD Primary Care Provider [phone] Nagi Red MD Primary Care Provider Nagi Red MD Unavailable Nagi Red MD Primary Care Provider COCO CLAIRE MCKEON Admitting Unavailable COCO DOCLAIRE Attending Unavailable NAGI RED Primary Care Unavailable LUCHOSTSHAQUILLE [id number], AMIRA Lawrence Consulting Unavailable COCO DOCLAIRE Consulting Unavailable NAGI RED Consulting Unavailable DUC BAKER DO Admitting Unavailable DUC BAKER DO Attending Unavailable AIME DEMPSEY PA-C Consulting Unavaila NAGI Rosario Primary Care Unavailable NAGI RED Consulting Unavailable NAGI RED Primary Care Unavailable GORDO HARDY, DR SENA Barrett Admitting Unavaila ana CARO MD, DR SENA Barrett Consulting Unavaila ana CARO MD, DR SENA Barrett Attending Unavaila ana ALVAREZ [phone], AMIRA Lawrence Consulting Unavailable NAGI RED Consulting Unavailable GORDO HARDY, DR SENA Barrett Admitting Unavaila ana CARO MD, DR SENA Barrett Attending Unavaila ana MAGALLANES MD, CATHI Borussard Consulting Unavailable NAGI RED Primary Care Unavailable NAGI RED Consulting Unavailable COCO DOCLAIRE Consulting Unavailable COCO DOCLAIRE Attending Unavailable NAGI RED Primary Care Unavailable COCO DO CLAIRE Ishmael Admitting Unavailable KAREN MEEKS Consulting Unavailable RUSTY HARDY, PAOLA Lawrence Consulting Unavailable NAGI RED Consulting Unavailable Daniella HARDY, Nagi Barrett Primary Care Provider Nagi Red MD Unavailable Nagi Red MD Primary Care Provider [phone] TAWANNA RIVERA Attending Unavailable DANIELLA, NAGI A Primary Care Unavailable NAGI RED Referring Unavailable TAWANNA RIVERA Attending Unavailable DANIELLA, NAGI Arnold Primary Care Unavailable NAGI RED Referring Unavailable Nagi Red MD Primary Care Provider NAGI RED Primary Care Unavailable SAKSHI PANDEY Referring Unavailable Renard Almodovar APRN.CNP Unavailable Christine Dean PA-C Unavailable [phone] NAGI RED MD Consulting Unavailable NOBLE SARMIENTO Attending Unavailable NOBLE SARMIENTO Primary Care Unavailable NOBLE SARMIENTO Admitting Unavailable NAGI RED MD Referring Unavailable PROVIDER, UNKNOWN Consulting Unavailable DANIELLA, NAGI A Primary Care Unavailable FLACO CONTRERAS Attending Unavailable BEN FLACO Bipin Admitting Unavailable DANIELLA, NAGI A Primary Care Unavailable FLACO CONTRERAS Attending Unavailable FLACO CONTRERAS Admitting Unavailable FLACO CONTRERAS Admitting Unavailable DANIELLA, NAGI A Primary Care Unavailable FLACO CONTRERAS Attending Unavailable DANIELLA, NAGI A Primary Care Unavailable DANIELLA, NAGI A Primary Care Unavailable DANIELLA, NAGI A Referring Unavailable DANIELLA, NAGI A Primary Care Unavailable SAKSHI PANDEY Attending Unavailable DANIELLA, NAGI A Primary Care Unavailable DANIELLA, NAGI A Referring Unavailable DANIELLA, NAGI A Primary Care Unavailable CARLIE BROWNLEE Attending Unavailable DANIELLA, NAGI A Primary Care Unavailable DANIELLA, NAGI A Attending Unavailable DANIELLA, NAGI A Primary Care Unavailable DANIELLA, NAGI A Primary Care Unavailable CARLIE BROWNLEE Attending Unavailable RENARD ALMODOVAR Attending Unavailable DANIELLA, NAGI A Primary Care Unavailable DANIELLA, NAGI A Primary Care Unavailable DANIELLA, NAGI A Attending Unavailable DANIELLA, NAGI A Primary Care Unavailable CARLIE BROWNLEE Attending Unavailable DANIELLA, NAGI A Primary Care Unavailable RENARD ALMODOVAR Attending Unavailable DANIELLA, NAGI A Primary Care Unavailable DANIELLA, NAGI A Primary Care Unavailable DANIELLA, NAGI A Primary Care Unavailable CHRISTINE DEAN Attending Unavailable DANIELLA, NAGI A Primary Care Unavailable CHRISTINE DEAN Referring Unavailable DANIELLA, NAGI A Primary Care Unavailable DANIELLA, NAGI A Primary Care Unavailable CARLIE BROWNLEE Attending Unavailable SELF Referring Unavailable RENARD ALMODOVAR Attending Unavailable DANIELLA, NAGI A Primary Care Unavailable DANIELLA, NAGI A Referring Unavailable Ludin Adams Attending Unavailable Daniella, Nagi Primary Care Unavailable Roselia Arrieta Attending Unavailabl e Daniella, Nagi Referring Unavailable Daniella, Nagi Primary Care Unavailable Daniella, Nagi Referring Unavailable Daniella, Nagi Primary Care Unavailable Taylor Samuel Attending Unavailable Daniella, Nagi Referring Unavailable Taylor Samuel Attending Unavailable Daniella, Nagi Primary Care Unavailable Daniella, Nagi Referring Unavailable Daniella, Nagi Primary Care Unavailable Taylor Samuel Attending Unavailable Daniella, Nagi Referring Unavailable Alyssa Sanchez Attending Unavailable Daniella, Nagi Primary Care Unavailable Daniella, Nagi Referring Unavailable Alyssa Sanchez Attending Unavailable Daniella, Nagi Primary Care Unavailable Ludin Adams Attending Unavailable Daniella, Nagi Primary Care Unavailable Daniella, Nagi Primary Care Unavailable Jose Antonio Kee Attending Unavailable Daniella, Nagi Primary Care Unavailable Rocio Higginbotham Attending Unavailable UngBrenda valleus Referring Unavailable Daniella, Nagi Primary Care Unavailable Taylor Samuel Attending Unavailable Taylor Samuel Referring Unavailable Taylor Samuel Attending Unavailable Daniella, Nagi Primary Care Unavailable Taylor Samuel Referring Unavailable Taylor Samuel Attending Unavailable Daniella, Nagi Primary Care Unavailable AtanasTaylor peralta Referring Unavailable AtanasTaylor peralta Referring Unavailable Daniella, Nagi Primary Care Unavailable Taylor Samuel Attending Unavailable Daniella, Nagi Primary Care Unavailable AtaTaylor davidson Referring Unavailable Taylor Samuel Attending Unavailable Assessment, Health Risk Attending Unavaila ble Assessment, Health Risk Referring Unavaila ble Daniella, Nagi Primary Care Unavailable Daniella, Nagi Primary Care Unavailable Kate Gonzáles Attending Unavailable Kate Gonzáles Referring Unavailable Melvin Solares Attending Unavailable Daniella, Nagi Primary Care Unavailable Allergies Allergy Classification Reported Allergen(s) Allergy Type Date of Onset Reaction(s) Facility Amphetamine / Dextroamphetamine (1 source) [facility] / [facility]ate / Amphetamine Sulfate / Dextroamphetamine saccharate / Dextroamphetamine Sulfate (4 sources) Amphetamine aspartate / Amphetamine Sulfate / Dextroamphetamine saccharate / Dextroamphetamine Sulfate Drug Allergy 015 Intolerance [facility] Work Phone: Opioid Agonists (5 sources) Morphine Drug Allergy 008 Itching [facility] (6 sources) Amphetamine / Dextroamphetamine Drug Allergy 020 Palpitations [facility] (6 sources) Morphine Drug Allergy 020 Itching [facility] (7 sources) Wound Dressing Adhesive Propensity to adverse reactions to drug 020 Itching [facility] (20 sources) Adhesive agent; Translations: [ADHESIVE] Drug Allergy 010 Rash [facility] Work Phone: (20 sources) Amphetamine aspartate / Amphetamine Sulfate / Dextroamphetamine saccharate / Dextroamphetamine Sulfate; Translations: [DEXTROAMPHETAMINE-A MPHETAMINE] Drug Allergy 015 Intolerance [facility] Work Phone: (20 sources) Morphine; Translations: [MORPHINE SULFATE] Drug Allergy 008 Itching [facility] Work Phone: (20 sources) animals [Other] Propensity to adverse reactions 005 Unknown [facility] Work Phone: (20 sources) Environmental allergies [Other] Propensity to adverse reactions 008 Unknown [facility] Work Phone: (1 source) Amphetamine / Dextroamphetamine Drug Allergy [facility] Rep[facility] (1 source) Morphine Drug Allergy [facility] Repository (1 source) Amphetamine / Dextroamphetamine Drug Allergy [facility] Repository (1 source) Morphine Drug Allergy [facility] Repository (1 source) Adhesive Tape Drug allergy (disorder) 025 [facility] Repository (1 source) Amphetamine Drug Allergy 025 [facility] Rep[facility] (1 source) Dextroamphetamine Drug Allergy 025 [facility] Rep[facility] (1 source) Morphine Drug Allergy [facility] Repository Medications Current Medications Medication Drug Class(es) Dates Sig (Normalized) Sig (Original) [id number] 200 actuat albuterol 0.09 mg/actuat metered dose inhaler (20 sources) beta2-Adrenergic Agonist Start: 04-11-2019 End: 07-06-2022 take 2 puff(s) by inhalation every six hours as needed for wheezing albuterol HFA (VENTOLIN HFA) 90 mcg/actuation inhaler Inhale 2 Puffs as instructed every 6 hours as needed for wheezing/shortnes s of breath. 1 Inhaler 2 07/06/2022 Active Comment on above: Inhale 2 Puffs as in structed every 6 hours as needed for Wheezing/Shortness of Breath. amoxicillin 875 mg / clavulanate 125 mg oral tablet (1 source) Penicillin-class Antibacterial Start: 01-05-2025 End: 01-12-2025 take 1 tablet by mouth twice daily amoxicillin-clavu lanate potassium (AUGMENTIN) 875-125 mg per tablet Indications: Bacterial sinusitis Take 1 tablet by mouth two times a day for 7 days. 14 tablet 01/05/2025 01/12/2025 Active benzonatate 100 mg oral capsule (1 source) Non-narcotic Antitussive Start: 10-04-2023 End: 10-14-2023 take 2 capsules by mouth three times daily as needed benzonatate (TESSALON PERLE) 100 mg capsule Indications: Bronchitis Take 2 capsules by mouth three times a day as needed for up to 10 days. 60 capsule 0 10/04/2023 10/14/2023 Active Comment on above: Take 2 capsules by m outh three times a day as needed for up to 10 days. cariprazine 1.5 mg oral capsule (20 sources) Atypical Antipsychotic Start: 04-25-2024 take 1 capsule by mouth once cariprazine (VRAYLAR) 1.5 mg capsule Take 1 capsule by mouth once daily. [facility] 04/25/2024 Active Cariprazine HCl (VRAYLAR PO) Take by mouth. Active Cariprazine HCl (VRAYLAR PO) Take by mouth. 0 Active cholecalciferol 0.05 mg oral capsule (20 sources) Vitamin D Start: 04-25-2024 take 1 capsule by mouth once daily Cholecalciferol, Vitamin D3, 50 mcg (2,000 unit) cap Take 1 capsule by mouth once daily. 04/25/2024 Active Start: 04-16-2017 End: 10-23-2021 take 1 capsule by mouth every week cholecalciferol, Vitamin D3, (VITAMIN D3) 50,000 unit cap capsule Indications: Vitamin D deficiency Take 1 capsule by mouth once each week. 4 capsule 11 04/16/2017 10/23/2021 Discontinued doxycycline hyclate 100 mg oral capsule (5 sources) Tetracycline-class Drug Start: 10-04-2023 End: 10-14-2023 take 1 capsule by mouth twice daily doxycycline hyclate (VIBRAMYCIN) 100 mg capsule Indications: Lower resp. tract infection Take 1 capsule by mouth two times a day for 10 days. 20 capsule 0 10/04/2023 10/14/2023 Active Start: 01-22-2023 End: 01-29-2023 take 1 tablet by mouth twice daily doxycycline (VIBRA-TABS) 100 mg tablet Take 1 tablet by mouth twice daily for 7 days. 14 tablet 0 01/22/2023 01/29/2023 Active Comment on above: Take 1 tablet by liza twice daily for 7 days. Take 1 capsule by mo [facility] two times a day for 10 days. etonogestrel 68 mg drug implant (20 sources) Progestin etonogestrel (NE XPLANON) subdermal implant 68 mg 68 mg by SUBDERMAL route one time only. Active Etonogestrel 68 MG SC implant Inject 1 Each under the skin. Active Comment on above: 68 mg by SUBDERMAL r oute one time only. hydroCHLOROthiazide 25 mg oral tablet (20 sources) Thiazide Diuretic Start: 2022 End: 2023 take 1 tablet by mouth once daily hydroCHLOROthiazide 25 mg tablet Take 1 tablet by mouth once daily. 90 tablet 1 10/26/2024 Active Start: 07-06-2022 End: 03-03-2023 take 1 capsule by mouth once daily hydroCHLOROthiazide (HYDRODIURIL, ESIDRIX) 12.5 mg capsule Take 1 capsule by mouth once daily. 30 capsule 5 07/06/2022 03/03/2023 Discontinued (Changing Therapy/Dosage Form) Comment on above: Take 1 capsule by mo uth once daily. Take 1 tablet by liza th once daily. lithium carbonate 300 mg extended release oral tablet (2 sources) Start: 09-16-2020 take 1 tablet by mouth twice daily lithium carbonate CR 300 MG Tab CR Take 300 mg by mouth 2 times daily. 0 09/16/2020 Active End: 10-23-2021 take 1 tablet by mouth once daily lithium carbonate ER 450 mg CR tablet Take 450 mg by mouth once daily. 10/23/2021 Discontinued magnesium glycinate 100 mg magnesium capsule (20 sources) Start: 11-02-2024 take 2 capsules by mouth twice daily magnesium glycinate 100 mg magnesium capsule Indications: Migraine without aura and without status migrainosus, not intractable Take 2 capsules by mouth two times a day. 120 capsule 2 11/02/2024 Active melatonin 10 mg oral tablet (7 sources) Melatonin 10 MG tablet Take by mouth daily as needed. Active methylPREDNISolone (3 sources) Corticosteroid Start: 10-18-2024 End: 10-24-2024 methylPREDNISolone (MEDROL, RATNA,) 4 mg Dose-Pack Indications: Headache, unspecified headache type Follow dosing instructions, take with food. 21 tablet 10/18/2024 10/24/2024 Active naloxone hydrochloride 40 mg/ml nasal spray (3 sources) Opioid Antagonist Start: 06-05-2022 End: 06-05-2022 naloxone 4 MG/0.1ML 1 spray by Nasal route once for 1 dose. Onward into the nose as directed. Call 911. If no response in 2 minutes use a new nasal spray in other nostril. Repeat until help arrives. 1 Each 06/05/2022 05/01/2024 Discontinued (Therapy completed) nitrofurantoin, macrocrystals 25 mg / nitrofurantoin, monohydrate 75 mg oral capsule (2 sources) Nitrofuran Antibacterial Start: 09-29-2024 End: 10-06-2024 take 1 capsule by mouth twice daily nitrofurantoin monohydrate and macrocrystal (MACROBID) 100 mg capsule Take 1 capsule by mouth two times a day for 7 days. 14 capsule 09/29/2024 10/06/2024 Active Lgqnp-3-AIB-EPA-Fish Oil (FISH OIL) 1,000 (120-180) mg cap (18 sources) Start: 11-02-2024 take 2 capsules by mouth twice daily Flvys-0-BFD-EPA-Fish Oil (FISH OIL) 1,000 (120-180) mg cap Indications: Migraine without aura and without status migrainosus, not intractable Take 2 capsules by mouth two times a day. 120 capsule 2 11/02/2024 Active ondansetron 4 mg oral tablet (3 sources) Serotonin-3 Receptor Antagonist Start: 06-05-2022 take 1 tablet by mouth every eight hours as needed ondansetron 4 MG tablet Take 1 tablet by mouth every 8 hours as needed for Nausea. 30 tablet 06/05/2022 Active prazosin 2 mg oral capsule (20 sources) alpha-Adrenergic Max Start: 04-25-2024 take 1 capsule by mouth at bedtime Prazosin 2 MG capsule Take 1 capsule by mouth at bedtime. 04/25/2024 Active Start: 06-15-2022 End: 04-25-2024 take 1 capsule by mouth once daily at bedtime prazosin (MINIPRESS) 1 mg cap Take 1 mg by mouth daily at bedtime. 0 06/15/2022 04/25/2024 Discontinued Comment on above: Take 1 mg by mouth d aily at bedtime. predniSONE 20 mg oral tablet (1 source) Start: 3 End: 3 take 1 tablet by mouth once daily at mealtime predniSONE (DELTASONE) 20 mg tablet Indications: Bronchitis Take 1 tablet by mouth once daily for 4 days. Take daily with food. 4 tablet 0 10/04/2023 10/08/2023 Active Comment on above: Take 1 tablet by liza once daily for 4 days. Take daily with food. propranolol hydrochloride 20 mg oral tablet (20 sources) beta-Adrenergic Max Start: 4 take 1 tablet by mouth once daily propranolol (INDERAL) 20 mg tablet Take 1 tablet by mouth once daily. 30 tablet 5 10/26/2024 Active Start: 11-28-2020 End: 05-21-2022 take 1 tablet by mouth once propranolol (INDERAL) 10 m g tablet Take 1 tablet by mouth once daily. Per Juan Daniel 0 11/28/2020 05/21/2022 Discontinued Comment on above: Take 1 tablet by liza th once daily. Per Juan Daniel QUEtiapine 50 mg oral tablet (20 sources) Atypical Antipsychotic Start: take 1 tablet by mouth once daily at bedtime QUEtiapine (SEROQUEL) 50 mg tablet Take 1 tablet by mouth daily at bedtime. [facility] 04/25/2024 Active riboflavin 400 mg oral tablet (20 sources) Start: take 1 tablet by mouth once daily riboflavin, vitamin B2, 400 mg tab Indications: Migraine without aura and without status migrainosus, not intractable Take 1 tablet by mouth once daily. 90 tablet 11/02/2024 Active sennosides, jail 8.6 mg oral capsule (3 sources) Start: take 1 capsule by mouth twice daily as needed Sennosides (Senna) 8.6 MG capsule Take 1 capsule by mouth 2 times daily as needed. 30 capsule 06/05/2022 Active SUMAtriptan 50 mg oral tablet (20 sources) Serotonin-1b and Serotonin-1d Receptor Agonist Start: End: take 1 tablet by mouth every two hours as needed for headache SUMAtriptan (IMITREX) 50 mg tablet Indications: Migraine without aura and without status migrainosus, not intractable Take 1 tablet (50 mg) by mouth as needed for migraine headache (see administration instructions). May repeat dose after 2 hours if needed. Maximum daily dose is 200 mg per day. 9 tablet 3 12/15/2024 Active traMADol hydrochloride 50 mg oral tablet (20 sources) Opioid Agonist Start: End: traMADol (ULTRAM) 50 mg tablet Indications: SI (sacroiliac) joint dysfunction Take 1-2 pills by mouth once a day for 30 days for pain, prn Patient should start on March 08, 2025. 45 tablet 2 03/08/2025 04/01/2025 Active Start: 03-08-2025 End: 03-02-2025 traMADol (ULTRAM) 50 mg tabl et Indications: SI (sacroiliac) joint dysfunction Take 1-2 pills by mouth once a day for pain, prn Patient should start on March 08, 2025. 45 tablet 2 03/08/2025 03/02/2025 Discontinued (Discontinued by Patient) Start: 03-08-2025 End: 04-01-2025 traMADol (ULTRAM) 50 mg tabl et Indications: SI (sacroiliac) joint dysfunction Take 1-2 pills by mouth once a day for 30 days for pain, prn Patient should start on March 08, 2025. 45 tablet 2 03/08/2025 04/01/2025 Active Start: 03-08-2025 End: 03-02-2025 traMADol (ULTRAM) 50 mg tabl et Indications: SI (sacroiliac) joint dysfunction Take 1-2 pills by mouth once a day for pain, prn Patient should start on March 08, 2025. 45 tablet 2 03/08/2025 03/02/2025 Discontinued (Discontinued by Patient) Start: 09-18-2024 End: 03-02-2025 take 1-2 tablets by mouth once daily as needed for pain traMADol (ULTRAM) 50 mg tablet Indications: SI (sacroiliac) joint dysfunction Take 1-2 pills by mouth once a day for pain, prn 45 tablet 2 12/14/2024 03/02/2025 Discontinued Start: 06-15-2024 End: 07-15-2024 take 1 tablet by mouth once daily as needed traMADol (ULTRAM) 50 mg tablet Indications: SI (sacroiliac) joint dysfunction Take 1 tablet by mouth once daily as needed for up to 30 days. 30 tablet 2 06/15/2024 07/15/2024 Active Start: 03-16-2024 End: 04-15-2024 take 1 tablet by mouth once daily as needed traMADol (ULTRAM) 50 mg tablet Indications: SI (sacroiliac) joint dysfunction Take 1 tablet by mouth once daily as needed for up to 30 days. 30 tablet 2 03/16/2024 04/15/2024 Active Start: 12-16-2023 End: 01-15-2024 take 1 tablet by mouth once daily as needed traMADol (ULTRAM) 50 mg tablet Indications: SI (sacroiliac) joint dysfunction Take 1 tablet by mouth once daily as needed for up to 30 days. 30 tablet 2 12/16/2023 01/15/2024 Active Start: 09-13-2023 End: 10-13-2023 take 1 tablet by mouth once daily as needed traMADol (ULTRAM) 50 mg tablet Indications: SI (sacroiliac) joint dysfunction , Lumbar degenerative disc disease Take 1 tablet by mouth once daily as needed for up to 30 days. 30 tablet 2 09/13/2023 10/13/2023 Active Start: 06-08-2023 End: 07-08-2023 take 1 tablet by mouth once daily as needed traMADol (ULTRAM) 50 mg tablet Indications: SI (sacroiliac) joint dysfunction , Lumbar degenerative disc disease Take 1 tablet by mouth once daily as needed for up to 30 days. 30 tablet 2 06/08/2023 07/08/2023 Start: 03-01-2023 End: 03-31-2023 take 1 tablet by mouth once daily as needed traMADol (ULTRAM) 50 mg tablet Indications: SI (sacroiliac) joint dysfunction , Lumbar degenerative disc disease Take 1 tablet by mouth once daily as needed for up to 30 days. 30 tablet 2 03/01/2023 03/31/2023 Active Start: 08-26-2020 End: 12-25-2022 take 1 tablet by mouth once daily as needed traMADol (ULTRAM) 50 mg tablet Indications: SI (sacroiliac) joint dysfunction , Lumbar degenerative disc disease Take 1 tablet by mouth once daily as needed for up to 30 days. 30 tablet 2 11/25/2022 12/25/2022 Active End: 09-18-2024 take 1 tablet by mouth every six hours as needed traMADol (ULTRAM) 50 mg tablet Take 50 mg by mouth every 6 hours as needed for pain. 09/18/2024 Discontinued Comment on above: Take 1 tablet by liza once daily as needed for up to 30 days. Take 50 mg by mouth every 6 hours as needed for pain. Completed/Discontinued Medications Medication Drug Class(es) Dates Sig (Normalized) Sig (Original) ALPRAZolam 0.25 mg oral tablet (6 sources) Benzodiazepine Start: 09-16-2020 End: 09-16-2022 take 1 tablet by mouth three times daily as needed ALPRAZolam 0.25 MG tablet Take 0.25 mg by mouth 3 times daily as needed. 0 09/16/2020 09/16/2022 Discontinued (Therapy completed) brompheniramine maleate 0.4 mg/ml / dextromethorphan hydrobromide 2 mg/ml / pseudoephedrine hydrochloride 6 mg/ml oral solution (9 sources) alpha-Adrenergic Agonist, Uncompetitive N-zpyxku-H-aspartat e Receptor Antagonist, Sigma-1 Agonist Start: 01-07-2024 End: 04-25-2024 take 10 mL by mouth every six hours as needed Brompheniramine-Pse udoeph-DM (BROMFED DM) 2-30-10 mg/5 mL syrup Take 10 mL by mouth four times a day as needed. 118 mL 0 01/07/2024 04/25/2024 Discontinued (Course of therapy completed) Comment on above: Take 10 mL by mouth four times a day as needed. cyclobenzaprine hydrochloride 10 mg oral tablet (20 sources) Muscle Relaxant Start: 06-08-2023 End: 07-08-2023 take 1 tablet by mouth every twelve hours as needed cyclobenzaprine (FLEXERIL) 10 mg tablet Take 1 tablet by mouth twice daily as needed. 60 tablet 2 06/08/2023 07/08/2023 Start: 02-17-2023 End: 03-25-2023 take 1 tablet by mouth every twelve hours as needed cyclobenzaprine (FLEXERIL) 10 mg tablet Take 1 tablet by mouth twice daily as needed. 60 tablet 0 02/23/2023 03/25/2023 Active Start: 05-21-2022 End: 06-20-2022 take 1 tablet by mouth every twelve hours as needed cyclobenzaprine (FLEXERIL) 10 mg tablet Take 1 tablet by mouth twice daily as needed. 60 tablet 0 05/21/2022 06/20/2022 Active cyclobenzaprine (FLEXERIL) 5 mg tablet Take by mouth twice daily as needed. Active Comment on above: Take 1 tablet by liza twice daily as needed. Take by mouth twice daily as needed. dexamethasone 1 mg oral tablet (1 source) Corticosteroid Start: 023 End: 024 Dexamethasone 1 MG tablet Take po at 11pm, get Blood drawn the next morning at ~8am 1 tablet 03/17/2023 05/04/2024 Discontinued (Therapy completed) ethinyl estradiol 0.02 mg / levonorgestrel 0.1 mg oral tablet (7 sources) Progestin, Estrogen, Progestin-containing Intrauterine Device Start: End: Larissia 0.1-20 MG-MCG tablet 10/14/2020 05/01/2024 Discontinued fexofenadine (1 source) Histamine-1 Receptor Antagonist End: take 1 tablet by mouth once daily fexofenadine HCl (EDGAR ALLERGY ORAL) Take 1 tablet by mouth once daily. 10/23/2021 Discontinued gadoterate Meglumine (DOTAREM) 5 MMOL/10ML injection 3-60 mL (1 source) Start: End: gadoterate Meglumine (DOTAREM) 5 MMOL/10ML injection 3-60 mL hydrOXYzine hydrochloride 25 mg oral tablet (20 sources) Antihistamine Start: End: take 1 tablet by mouth every eight hours as needed for anxiety hydrOXYzine HCl (ATARAX) 25 mg tablet Indications: Anxiety, generalized Take 1 tablet by mouth every 8 hours as needed for Anxiety. 30 tablet 1 12/02/2017 04/25/2024 Discontinued Comment on above: Take 1 tablet by liza th every 8 hours as needed for Anxiety. Ibuprofen (16 sources) Nonsteroidal Anti-inflammatory Drug End: ibuprofen (MOTRIN ORAL) Take by mouth. 0 04/25/2024 Discontinued ibuprofen (MOTRI N ORAL) Take by mouth. 0 Active Comment on above: Take by mouth. iv contrast (will be provided with radiology test) (6 sources) Start: 3 End: 3 inject 1 dose intravenously once iv contrast (will be provided with radiology test) Indications: Adverse effect of treatment, initial encounter CTA Head/Neck W No IV access, insert saline lock prior to the sedation, infusion, injection for imaging exam. Discontinue saline lock post exam. If Pt. has a central line or IVAD, may access for administration according to line specific nursing protocol. Once exam is complete flush line and de-access according to line specific nursing protocol in the CT contrast administration guidelines link. 1 Each 0 04/27/2023 04/28/2023 Start: 04-27-2023 End: 04-28-2023 inject 1 dose intravenously once iv contrast (will be provided with radiology test) Indications: Adverse effect of treatment, initial encounter CTA CHEST - No IV access, insert saline lock prior to the sedation, infusion, injection for imaging exam. Discontinue saline lock post exam. If Pt. has a central line or IVAD, may access for administration according to line specific nursing protocol. Once exam is complete flush line and de-access according to line specific nursing protocol in the CT contrast administration guidelines link. 1 Each 0 04/27/2023 04/28/2023 Start: 04-27-2023 End: 04-28-2023 inject 1 dose intravenously once iv contrast (will be provided with radiology test) Indications: Adverse effect of treatment, initial encounter CTA Head/Neck W No IV access, insert saline lock prior to the sedation, infusion, injection for imaging exam. Discontinue saline lock post exam. If Pt. has a central line or IVAD, may access for administration according to line specific nursing protocol. Once exam is complete flush line and de-access according to line specific nursing protocol in the CT contrast administration guidelines link. 1 Each 0 04/27/2023 04/28/2023 Active Start: 04-27-2023 End: 04-28-2023 inject 1 dose intravenously once iv contrast (will be provided with radiology test) Indications: Adverse effect of treatment, initial encounter CTA CHEST - No IV access, insert saline lock prior to the sedation, infusion, injection for imaging exam. Discontinue saline lock post exam. If Pt. has a central line or IVAD, may access for administration according to line specific nursing protocol. Once exam is complete flush line and de-access according to line specific nursing protocol in the CT contrast administration guidelines link. 1 Each 0 04/27/2023 04/28/2023 Active Comment on above: CTA Head/Neck W No I V access, insert saline lock prior to the sedation, infusion, injection for imaging exam. Discontinue saline lock post exam. If Pt. has a central line or IVAD, may access for administration according to line specific nursing protocol. Once exam is complete flush line and de-access according to line specific nursing protocol in the CT contrast administration guidelines link. CTA CHEST - No IV ac cess, insert saline lock prior to the sedation, infusion, injection for imaging exam. Discontinue saline lock post exam. If Pt. has a central line or IVAD, may access for administration according to line specific nursing protocol. Once exam is complete flush line and de-access according to line specific nursing protocol in the CT contrast administration guidelines link. 1 ml ketorolac tromethamine 30 mg/ml injection (4 sources) Nonsteroidal Anti-inflammatory Drug, Cyclooxygenase Inhibitor Start: 10-26-2024 End: 10-26-2024 keTORolac 30 mg injection (Toradol) Start: 10-26-2024 End: 10-26-2024 30 mg, INTRAVENOUS, ONCE, 1 dose, On Lana 10/26/24 at 0800, Ketorolac (Toradol) is indicated for the short-term (up to 5 days) management of moderately severe acute pain. Continuation of ketorolac (Toradol) beyond 5 days increases the risk of developing serious adverse events. Please verify the duration of therapy for ketorolac (Toradol) Start: 10-18-2024 End: 10-18-2024 keTORolac 30 mg injection (T oradol) Start: 10-18-2024 End: 10-18-2024 30 mg, INTRAMUSCULAR, ONCE, 1 dose, On Wed10/18/24 at 1700, Ketorolac (Toradol) is indicated for the short-term (up to 5 days) management of moderately severe acute pain. Continuation of ketorolac (Toradol) beyond 5 days increases the risk of developing serious adverse events. Please verify the duration of therapy for ketorolac (Toradol) levothyroxine sodium 0.025 mg oral tablet (20 sources) l-Thyroxine Start: 04-29-2023 End: 05-01-2024 Synthroid 25 MCG tablet Take 225 mcg (200 +25) 2 days a week 24 tablet 11 04/29/2023 05/01/2024 Discontinued (Therapy completed) Start: 09-16-2022 Synthroid 25 M CG tablet Take 225 mcg (200 +25) 2 days a week 24 tablet 11 09/16/2022 Active Start: 07-09-2022 End: 09-16-2022 Synthroid 200 MCG tablet Behzad e 1 tablet 6 days a week and 1 and 1/2 tablet 1 day a week 96 tablet 3 07/09/2022 09/16/2022 Discontinued (Reorder) Start: 02-06-2021 Synthroid 25 M CG tablet Indications: Postsurgical hypothyroidism Take 1 tablet two days a week with your 200 mcg 30 tablet 3 02/06/2021 Active Start: 08-23-2020 take 1 tablet by liza th once daily before breakfast levothyroxine (SYNTHROID) 25 mcg tablet Take 1 tablet by mouth daily before breakfast. Take 225 mcg total of synthroid daily (so add this 25mcg tab to your daily 200mcg tab) 90 tablet 11 08/23/2020 Active Start: 04-11-2020 End: 05-01-2024 take 1 tablet by mouth once daily levothyroxine (SYNTHROID) 200 mcg tablet Take 1 tablet by mouth once daily. 30 tablet 3 05/17/2020 Active Comment on above: Take 1 tablet by liza th once daily. Take 1 tablet by liza th daily before breakfast. Take 225 mcg total of synthroid daily (so add this 25mcg tab to your daily 200mcg tab) omeprazole 20 mg delayed release oral capsule (20 sources) Proton Pump Inhibitor Start: 2020 End: 2022 take 2 capsules by mouth once daily omeprazole (PRILOSEC) 20 mg capsule Indications: Nausea and vomiting, intractability of vomiting not specified, unspecified vomiting type , LUQ pain Take 2 capsules by mouth once daily. 60 capsule 2 10/28/2021 02/12/2023 Discontinued Comment on above: Take 2 capsules by [facility] once daily. oxyCODONE hydrochloride 5 mg oral tablet (3 sources) Opioid Agonist Start: 2021 End: 2023 take 1 tablet by mouth every four hours as needed oxyCODONE 5 MG tablet Indications: Papillary thyroid carcinoma , Sialadenitis Take 1 tablet by mouth every 4 hours as needed for up to 7 days. 8 tablet 06/05/2022 05/01/2024 Discontinued (Therapy completed) polyethylene glycol 3350 331097 mg / potassium chloride 2970 mg / sodium bicarbonate 6740 mg / sodium chloride 5860 mg / sodium sulfate 07900 mg powder for oral solution (7 sources) Osmotic Laxative Start: 2020 peg 3350-Electrolytes (GOLYTELY) 236-22.74-6.74 -5.86 gram suspension Refer to printed prep instructions from your provider. 4000 mL 0 10/28/2021 Active Comment on above: Refer to printed pre p instructions from your provider. prochlorperazine 5 mg oral tablet (20 sources) Phenothiazine Start: 2018 End: 2022 take 1 tablet by mouth every eight hours as needed prochlorperazine (COMPAZINE) 5 mg tablet Take 1 tablet by mouth every 8 hours as needed. 30 tablet 2 11/04/2019 02/12/2023 Discontinued Comment on above: Take 1 tablet by liza th every 8 hours as needed. rizatriptan 10 mg oral tablet (20 sources) Serotonin-1b and Serotonin-1d Receptor Agonist Start: 2018 End: 2023 take 1 tablet by mouth every two hours as needed rizatriptan (MAXALT) 10 mg tablet Indications: Migraine without aura and without status migrainosus, not intractable Take 1 tablet by mouth as needed. May repeat in 2 hours if needed 6 tablet 5 03/03/2023 11/02/2024 Discontinued Comment on above: Take 1 tablet by liza th as needed. May repeat in 2 hours if needed 10 ml sodium chloride 9 mg/ml injection (1 source) Start: 2021 End: 2021 sodium chloride (PF) 0.9 % injection 1-100 mL sucralfate 100 mg/ml oral suspension (5 sources) Aluminum Complex Start: 2021 End: 2021 take 10 mL by mouth four times daily 1 hour(s) before bedtime sucralfate 1 GM/10ML oral suspension TAKE 10 ML BY MOUTH FOUR TIMES A DAY 1 HOUR BEFORE MEALS AND AT BEDTIME ON EMPTY STOMACH 0 12/23/2021 09/16/2022 Discontinued (Therapy completed) traZODone hydrochloride 150 mg oral tablet (20 sources) Serotonin Reuptake Inhibitor End: 2023 take 2 tablets by mouth once daily at bedtime traZODone (DESYREL) 150 mg tablet Take 300 mg by mouth daily at bedtime. 02/12/2023 Discontinued Comment on above: Take 300 mg by mouth daily at bedtime. 24 hr divalproex sodium 500 mg extended release oral tablet (20 sources) Mood Stabilizer, Anti-epileptic Agent Start: 2018 End: 2022 take 3 tablets by mouth once daily at bedtime divalproex ER (DEPAKOTE ER) 500 mg 24 hr tablet Take 3 tablets by mouth daily at bedtime. [facility] Juan Carlourt 11/04/2019 02/12/2023 Discontinued Start: 11-04-2019 End: 05-01-2024 divalproex 500 MG tablet ER Take 1,500 mg by mouth. 11/04/2019 05/01/2024 Discontinued (Therapy completed) Comment on above: Take 3 tablets by mo uth daily at bedtime. [facility], Juan María ziprasidone 40 mg oral capsule (18 sources) Atypical Antipsychotic End: 09-16-20 take 1 capsule by mouth twice daily at mealtime ziprasidone (GEODON) 40 mg capsule Take 40 mg by mouth twice daily with meals. 07/06/2022 Discontinued Comment on above: Take 40 mg by mouth twice daily with meals. Problems Active Problems Problem Classification Problem Date Documented Da te Episodic/Chronic Abdominal pain (10 sources) Pelvic and perineal pain; Translations: [Unspecified abdominal pain] Onset: 12-22-2021 Episodic Anxiety disorders (20 sources) Generalized anxiety disorder; Translations: [Generalized anxiety disorder] Onset: 03-31-2012 11-17-2021 Chronic Asthma (20 sources) Exercise-induced asthma; Translations: [Exercise induced bronchospasm] Onset: 03-22-2014 03-22-2014 Chronic Biliary tract disease (1 source) Other specified diseases of biliary tract; Translations: [Other specified diseases of biliary tract] Onset: 04-23-2025 Chronic Calculus of urinary tract (20 sources) Kidney stone; Translations: [Calculus of kidney] Onset: 05-01-2021 03-25-2022 Episodic Cancer of thyroid (20 sources) Malignant tumor [...] Translations: [Postprocedural hypothyroidism] Onset: 08-25-2019 06-06-2021 Chronic Complications of surgical procedures or medical care (3 sources) Complication of procedure; Translations: [Complication of surgical and medical care, unspecified, subsequent encounter] Episodic Contraceptive and procreative management (3 sources) Encounter for sterilization; Translations: [ENCOUNTER FOR STERILIZATION] Onset: 10-23-2022 Episodic Diseases of mouth; excluding dental (5 sources) Sialoadenitis of the submandibular gland; Translations: [Sialoadenitis, unspecified] Episodic Essential hypertension (20 sources) Essential hypertension; Translations: [Essential (primary) hypertension] Onset: 07-06-2022 Chronic Gastrointestinal hemorrhage (1 source) Blood-tinged feces; Translations: [Melena] Episodic Genitourinary symptoms and ill-defined conditions (1 source) Dysuria; Translations: [Dysuria] 09-29-2024 Episodic Headache; including migraine (20 sources) Migraine without aura, not refractory ; Translations: [Migraine without aura, not intractable, without status migrainosus] Onset: 05-20-2017 05-20-2017 Chronic Headache; including migraine (4 sources) Headache; Translations: [Headache, unspecified headache type] 10-18-2024 Episodic Headache; including migraine (3 sources) Headache; including migraine; Translations: [Mixed headache] Onset: 10-26-2024 Influenza (1 source) Influenza; Translations: [Influenza due to unidentified influenza virus with other respiratory manifestations] 01-13-2024 Episodic Malaise and fatigue (20 sources) Chronic fatigue syndrome; Translations: [Chronic fatigue, unspecified] Onset: 03-19-2015 05-09-2015 Chronic Menstrual disorders (20 sources) Irregular periods; Translations: [Irregular menstruation, unspecified] Onset: 04-11-2007 03-22-2014 Chronic Mood disorders (20 sources) Bipolar I disorder; Translations: [Bipolar disorder, unspecified] Onset: 02-14-2018 03-22-2018 Chronic Nausea and vomiting (3 sources) Nausea and vomiting; Translations: [Nausea with vomiting, unspecified] Onset: 04-23-2025 Episodic Neoplasms of unspecified nature or uncertain behavior (2 sources) Neoplasm of uncertain behavior of skin of back; Translations: [Neoplasm of uncertain behavior of skin] 03-25-2024 Episodic Nutritional deficiencies (20 sources) Vitamin D deficiency; Translations: [Vitamin D deficiency, unspecified] Onset: 03-22-2014 05-07-2014 Chronic Other connective tissue disease (2 sources) Pain of left lower leg; Translations: [Pain in left lower leg] 05-12-2024 Episodic Other connective tissue disease (1 source) Cramp in lower limb; Translations: [Cramp and spasm] 09-21-2024 Episodic Other disorders of stomach and duodenum (1 source) Gastroparesis; Translations: [Gastroparesis] Onset: 03-30-2025 Episodic Other ear and sense organ disorders (1 source) Bilateral earache; Translations: [Otalgia, bilateral] 01-13-2024 Episodic Other ear and sense organ disorders (1 source) Tinnitus of right ear; Translations: [Tinnitus, right ear] 03-25-2024 Episodic Other ear and sense organ disorders (1 source) Otalgia, right ear; Translations: [Otalgia, unspecified] 03-25-2024 Episodic Other female genital disorders (1 source) Other noninflammatory disorders of ovary, fallopian tube and broad ligament; Translations: [OTH NONINFL D/O OVARY TUBEANDBRD LIG] Onset: 10-30-2022 Episodic Other gastrointestinal disorders (1 source) Irritable bowel syndrome without diarrhea; Translations: [Irritable bowel syndrome, unspecified] Onset: 02-13-2025 Chronic Other gastrointestinal disorders (1 source) Abdominal bloating; Translations: [Abdominal distension (gaseous)] Episodic Other gastrointestinal disorders (1 source) Diarrhea, unspecified; Translations: [Diarrhea, unspecified] Onset: 04-10-2025 Episodic Other injuries and conditions due to external causes (1 source) Injury of left ankle; Translations: [Unspecified injury of left ankle, initial encounter] 07-17-2021 Episodic Other lower respiratory disease (1 source) Lower respiratory tract infection; Translations: [Unspecified acute lower respiratory infection] 10-04-2023 Episodic Other lower respiratory disease (2 sources) Dyspnea; Translations: [Shortness of breath] 04-25-2024 Episodic Other nervous system disorders (1 source) Other chronic pain; Translations: [Other chronic pain] Onset: 02-08-2025 Chronic Other nutritional; endocrine; and metabolic disorders (20 sources) Intolerance to lactose; Translations: [Lactose intolerance, unspecified] Onset: 03-31-2012 11-17-2021 Chronic Other nutritional; endocrine; and metabolic disorders (20 sources) Obese class I; Translations: [Obesity, unspecified] Onset: 09-16-2022 09-16-2022 Chronic Other nutritional; endocrine; and metabolic disorders (1 source) Weight gain; Translations: [Abnormal weight gain] Episodic Other upper respiratory infections (2 sources) Bacterial sinusitis; Translations: [Chronic sinusitis, unspecified] Chronic Other upper respiratory infections (3 sources) Sore throat symptom; Translations: [Acute pharyngitis, unspecified] 10-04-2023 Episodic Ovarian cyst (2 sources) Unspecified ovarian cyst, right side; Translations: [Follicular cyst of left ovary] Onset: 09-14-2022 Episodic Spondylosis; intervertebral disc disorders; other back problems (20 sources) Degeneration of lumbar intervertebral disc; Translations: [Other intervertebral disc degeneration, lumbar region] Onset: 07-27-2012 03-22-2014 Chronic Unclassified (2 sources) COUGH, UNSPECIFIED; Translations: [COUGH, UNSPECIFIED] Onset: 11-19-2021 Unclassified (1 source) Degeneration of intervertebral disc of lumbar region with discogenic back pain; Translations: [Degeneration of intervertebral disc of lumbar region with discogenic back pain] Onset: 03-22-2014 Viral infection (7 sources) Disease caused by 2019-nCoV; Translations: [COVID-19] Onset: 11-19-2021 03-25-2022 Episodic Viral infection (1 source) COVID-19; Translations: [COVID-19] Onset: 11-19-2021 Past or Other Problems Problem Classification Problem Date Documented Date Episodic/Chronic Acquired foot deformities (20 sources) Acquired deformity of toe; Translations: [Other deformities of toe(s) (acquired), unspecified foot] Onset: 05-20-2009 Resolved: 07-27-2019 07-27-2019 Episodic Administrative/socia l admission (1 source) Encounter for other administrative examinations; Translations: [Encounter for physical examination related to employment] Onset: 09-21-2024 Episodic Coma; stupor; and brain damage (20 sources) Daytime somnolence; Translations: [Somnolence] Onset: 01-01-2015 05-09-2015 Episodic Esophageal disorders (20 sources) Gastroesophageal reflux disease; Translations: [Gastro-esophageal reflux disease without esophagitis] Onset: 02-21-2015 Resolved: 07-27-2019 07-27-2019 Chronic Joint disorders and dislocations; trauma-related (20 sources) Joint derangement; Translations: [Other internal derangements of unspecified knee] Onset: 08-20-2008 Resolved: 04-25-2024 03-22-2014 Chronic Mood disorders (6 sources) Mood disorders Onset: 03-18-2022 Resolved: 05-01-2024 03-18-2022 Other and unspecified benign neoplasm (20 sources) Dermatofibroma; Translations: [Other benign neoplasm of skin, unspecified] Onset: 06-20-2024 06-20-2024 Episodic Other connective tissue disease (20 sources) Fibromyalgia; Translations: [Fibromyalgia] Onset: 05-07-2014 Resolved: 07-27-2019 07-27-2019 Episodic Other connective tissue disease (2 sources) Pain in left lower leg; Translations: [Pain in left lower leg] Onset: 05-12-2024 Episodic Other connective tissue disease (1 source) Cramp and spasm; Translations: [Leg cramps] Onset: 09-21-2024 Episodic Other disorders of stomach and duodenum (20 sources) Persistent vomiting; Translations: [Cyclical vomiting syndrome unrelated to migraine] Onset: 03-03-2023 Episodic Other disorders of stomach and duodenum (20 sources) Gastroparesis syndrome; Translations: [Gastroparesis] Onset: 03-25-2024 03-25-2024 Episodic Other lower respiratory disease (5 sources) Cough; Translations: [Cough, unspecified] Onset: 11-15-2021 03-25-2022 Episodic Other lower respiratory disease (1 source) Shortness of breath; Translations: [SOB (shortness of breath)] Onset: 04-26-2024 Episodic Other nervous system disorders (20 sources) Disturbance of attention; Translations: [Attention and concentration deficit] Onset: 03-19-2015 Resolved: 07-27-2019 07-27-2019 Chronic Other screening for suspected conditions (not mental disorders or infectious disease) (20 sources) Patient encounter status; Translations: [Encounter for screening for lipoid disorders] Onset: 08-10-2014 Resolved: 07-27-2019 Episodic Spondylosis; intervertebral disc disorders; other back problems (20 sources) Low back pain; Translations: [Lumbago] Onset: 06-19-2008 Resolved: 04-25-2024 11-17-2021 Episodic Sprains and strains (1 source) Strain of other muscle(s) and tendon(s) of posterior muscle group at lower leg level, left leg, initial encounter; Translations: [Strain of other muscle(s) and tendon(s) of posterior muscle group at lower leg level, left leg, initial encounter] Onset: 05-24-2024 Episodic Thyroid disorders (20 sources) Multinodular goiter; Translations: [Nontoxic multinodular goiter] Onset: 06-04-2014 Resolved: 05-04-2024 11-17-2021 Chronic Unclassified (1 source) COUGH, UNSPECIFIED; Translations: [COUGH, UNSPECIFIED] Onset: 11-15-2021 Results Test Name Value Interpretation Reference Range Facility Abdomen/Pelvis W IV Cont ONL Yon 04-17-2025 Abdomen/Pelvis W IV Cont ONLY [facility] [address] [place] [address] [id number] Abdomen/Pelvis W IV Cont ONLY MR#: [id number] Acct: [id number] Name: GRETA ANDRES Rep #: [id number] : 1990 F 35 From: Damaris Hernandez DO PCP: Dr. Nagi Red MD Status: REG ER Study: Abdomen/Pelvis W IV Cont ONLY Date of Exam: Exam# [id number] Ordering Dr: Ludin Adams DO PROCEDURE: ABDOMEN/PELVIS W IV CONT ONLY 04/17/2025 REASON FOR EXAM: RLQ PAIN, N/V, NEEDS MRCP TECHNIQUE: Abdomen and pelvis CT with intravenous contrast. Coronal and Sagittal reconstruction series were provided. PATIENT PREPARATION: Per protocol ORAL CONTRAST TYPE: None. AMOUNT: mL CONTRAST: Isovue 370 VOLUME: 98 mL Not Provided Gauge IV One or more dose reduction techniques were used (e.g., Automated exposure control, adjustment of the mA and/or kV according to patient size, use of iterative reconstruction technique. RADIATION DOSE SUMMARY: CTDlvol: 31 mGy DLP: 1098 mGycm COMPARISON: CT of the abdomen and pelvis dated March 19, 2025 FINDINGS: Lung bases: Mild dependent atelectasis Liver: Focal hepatic ductal dilatation involving the right hepatic lobe, similar in appearance to the prior study. Gallbladder: Surgically absent Spleen: Normal size. Pancreas: Normal size without evidence of mass surrounding inflammation or ductal dilation. Adrenals: Unremarkable Kidneys: 3 mm nonobstructing right renal calculus. No evidence of hydronephrosis bilaterally. Tiny nonobstructing left renal calculi. Bladder: Unremarkable Reproductive Organs: The uterus is grossly unremarkable. Bilateral ovarian cysts. Bowel: Evaluation of the bowel loops are limited due to lack of oral contrast. The stomach is unremarkable. Fluid-filled distal small bowel within the pelvis, no wall thickening or dilatation. Fluid-filled right colon, no inflammatory changes are demonstrated. Appendix: Unremarkable Lymph nodes: No lymphadenopathy. Vasculature: Unremarkable Peritoneum / Retroperitoneum: No free fluid. Bones: Unremarkable CT/Abdomen/Pelvis W IV Cont ONLY IMPRESSION: Fluid-filled distal small bowel within the pelvis and fluid-filled right colon, no wall thickening or dilatation is demonstrated. This may represent enteritis. Bilateral nonobstructing renal calculi. Focal hepatic ductal dilatation involving the right hepatic lobe. This is similar in appearance to the prior study. OVERALL FINAL ASSESSMENT: . LI-RADS is not meant to be used in patients <18 years or patients with cirrhosis due to congenital hepatic fibrosis or due to vascular disorders, because these patients have a lower chance of developing HCC. Reading Location: [facility] CC: Dr. Nagi Red MD; Dr. Ludin Adams DO Advertising Copywriter: Signed Normal [facility] CBC W/Diff, Automatedon 05- Absolute Lymph 1.57 X10 3/uL Normal 0.83-4.51 [facility] Comment on above: Performed By: #### L 3100.0539 #### [facility] [address] [place], [place], [id number] (841) Absolute Neut 8.8 X10 3/uL High 2.0-7.7 [facility] Comment on above: Performed By: #### L 3100.0539 #### [facility] [address] [place], [address] Basophils/100 WBC (Bld) 0.3 % Normal 0-1 [facility] Comment on above: Performed By: #### L 3100.0539 #### [facility] [address] [place], [address] Eosinophils/100 WBC (Bld) 0.8 % Normal 0-5 [facility] Comment on above: Performed By: #### L 3100.0539 #### [facility] [address] [place], [address] Erythrocyte distribution width (RBC) [Ratio] 14.2 % Normal 11.6-14.6 [facility] Comment on above: Performed By: #### L 3100.0539 #### [facility] [address] [place], [address] Hematocrit (Bld) [Volume fraction] 44.0 % Normal 37-47 [facility] Comment on above: Performed By: #### L 3100.0539 #### [facility] [address] [place], [address] Hemoglobin (Bld) [Mass/Vol] 15.2 g/dL High 12.0-15.0 [facility] Comment on above: Performed By: #### L 3100.0539 #### [facility] [address] [place], [address] IG% 0.800 Normal 0.0-0.9 [facility] Comment on above: Result Comment: IG% - Immature Granulocytes (promyelocytes, myelocytes and metamyelocytes) > 1% indicates that a LEFT SHIFT is Present. Performed By: #### L 3100.0539 #### [facility] - [facility] [address] [place], [address] Lymphocytes/100 WBC (Bld) 14.1 % Low 19-41 [facility] Comment on above: Performed By: #### L 3100.0539 #### [facility] [address] [place], [address] MCH (RBC) [Entitic mass] 28.2 pg Normal 27.0-32.0 [facility] Comment on above: Performed By: #### L 3100.0539 #### [facility] [address] [place], [address] MCHC (RBC) [Mass/Vol] 34.5 g/dL Normal 32-36 [facility] Comment on above: Performed By: #### L 3100.0539 #### [facility] [address] [place], [address] MCV (RBC) [Entitic vol] 81.6 fL Normal 81-99 [facility] Comment on above: Performed By: #### L 3100.0539 #### [facility] [address] [place], [address] Monocytes/100 WBC (Bld) 5.0 % Normal 0-10 [facility] Comment on above: Performed By: #### L 3100.0539 #### [facility] [address] [place], [address] Neutrophils/100 WBC (Bld) 79.0 % High 47-70 [facility] Comment on above: Performed By: #### L 3100.0539 #### [facility] [address] [place], [address] Nucleated RBC (Bld) [#/Vol] 0 10*3/uL Normal 0-5 [facility] Comment on above: Performed By: #### L 3100.0539 #### [facility] [address] [place], [address] Platelet mean volume (Bld) [Entitic vol] 9.9 fL Normal 6.2-12.0 [facility] Comment on above: Performed By: #### L 3100.0539 #### [facility] [address] [place],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 was prepped with providone-iodine three times and draped into a sterile field. Fluoroscopy was used to identify the location of the S1, S2 and S3 foramen. Skin anesthesia was achieved using 3 cc of lidocaine 1% over the injection sites. Six 22 gauge 100 (10mm active tip) tip RF needles were slowly inserted parallel fashion along side the S1-S3 foramen at 1 cm intervals. The final needle placement was reviewed using AP, lateral and oblique fluoroscopic imaging. Negative aspiration for blood or CSF was confirmed. Motor stimulation at 2Hz up to 1.5V did not cause any radicular symptoms at any level. Each level was anesthetized with 1.5 cc of lidocaine 1%. Radiofrequency lesioning using bipolar technique was performed for 90 seconds at 80 degrees in 6 different positions. 3 separate lesionings were done to create a line of ablation from S1-S3 levels. Each of the sites were injected with 1 ml mixture of 0.25% Bupivacaine with 5mg per ml of Kenalog. The needles were removed and bleeding was nil. A sterile dressing was applied. No specimens collected. Greta Andres was taken to the Post-block Recovery Area for further observation. EBL: nil I was present the entire time and personally performed the procedure. SIGNATURE: Flaoc Contreras MD DATE: April 03, 2025 TIME: 10:15 AM [facility] Gastric Emptying Study - 4 H Gamaliel 03-22-2025 Gastric Emptying Study - 4 HR [facility] Imaging Services [address] [place] [address] Gastric Emptying Study - 4 HR MR#: [id number] Acct: [id number] Name: GRETA ANDRES Rep #: [id number] : 1990 F 35 From: Robert Rey PCP: Dr. Nagi Red MD Status: REG CLI Study: Gastric Emptying Study - 4 HR Date of Exam: Exam# [id number] Ordering Dr: Taylor Samuel PROCEDURE: GASTRIC EMPTYING STUDY - 4 HR 03/22/2025 REASON FOR EXAM: GASTROPARESIS. Nausea and vomiting. COMPARISON: 2 eggs TECHNIQUE: The patient ingested a standard meal of cooked egg whites mixed with , 2 slices toasted white bread, 2 pads of butter, and water. There was no vomiting postprandially. Anterior and posterior planar images of the upper abdomen were obtained for 1 minute immediately following the meal at 1h, 2h and 4h if more than 10% of the activity persisted within the stomach. Regions of interest were drawn, and a geometric mean was used to calculate a pmoq-jrqwovoy-rnvlc. Medications taken in the past 24 hours that may affect gastric emptying: None RADIOPHARMACEUTICAL: 1.2 mCi technetium 99 M sulfur colloid orally, with the solid food. FINDINGS: Percent activity remaining in stomach: 1 hour 61 % (normal 37-90%) 2 hours: 43 % (normal 30-60%) 235 minutes: 11 % (normal 0-10%) NM/Gastric Emptying Study - 4 HR IMPRESSION: No significant delay in solid phase gastric emptying. Reading Location: [place] [address] CC: Dr. Nagi Red MD; JERI Marquez Advertising Copywriter: Signed Normal [facility] Abdomen/Pelvis W IV Cont ONL Yon 03-19-2025 Abdomen/Pelvis W IV Cont ONLY [facility] Imaging Services [address] [place] [address] Abdomen/Pelvis W IV Cont ONLY MR#: [id number] Acct: [id number] Name: GRETA ANDRES Rep #: [id number] : 1990 F 35 From: Zackary Navarrete MD PCP: Dr. Nagi Red MD Status: REG ER Study: Abdomen/Pelvis W IV Cont ONLY Date of Exam: Exam# [id number] Ordering Dr: Ester Blas PROCEDURE: ABDOMEN/PELVIS W IV CONT ONLY (procedure code CTABDPELIV), 03/19/2025 REASON FOR EXAM: R FLANK PAIN, R/O INFARCT TECHNIQUE: CT abdomen and pelvis was performed with IV contrast. Multiplanar reformats were generated. CONTRAST: Isovue-300 VOLUME: 96mL RADIATION DOSE SUMMARY: CTDlvol: 13.30+ 14.20 mGy DLP: 760.35 mGycm One or more dose reduction techniques were used (e.g., Automated exposure control, adjustment of the mA and/or kV according to patient size, use of iterative reconstruction technique). COMPARISON: None FINDINGS: Lung bases: Unremarkable. Liver: Focal steatosis along the anterior falciform, normal variant. Tiny hypodensity in the anterior RIGHT hepatic dome, too small to characterize, likely cyst or hemangioma in the absence of known malignancy. Spleen: Unremarkable. Gallbladder: Gallbladder not identified, likely surgically absent however there are no visible surgical clips. Mild posterior RIGHT lobe intrahepatic biliary dilatation. Pancreas: Unremarkable. Adrenals: Unremarkable. Kidneys: Nonobstructing intrarenal calculi bilaterally up to 4 mm on the RIGHT. No hydronephrosis or ureteral calculus identified. Bowel: Unremarkable. Normal caliber appendix. Lymph nodes: Unremarkable. Vasculature: Unremarkable. Peritoneum: Unremarkable. Bladder: Underdistended and suboptimally evaluated, grossly unremarkable. Reproductive Organs: 2.4 cm LEFT ovarian presumed dominant follicle/physiologic cyst, incompletely characterized by CT. Body Wall: Mild rectus diastasis.. 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 CT/Abdomen/Pelvis W IV Cont ONLY IMPRESSION: 1. No clear acute findings. Specifically, no hydronephrosis or ureteral calculus is identified. Bilateral nonobstructing intrarenal calculi up to 4 mm on the RIGHT. 2. Mild RIGHT lobe intrahepatic biliary dilatation is of uncertain significance. Correlate with LFTs and for a history of possible prior cholangitis. Consider outpatient MRCP as indicated. 3. Additional description as above. Reading Location: [id number] CC: Dr. Nagi Red MD; JERI Singleton Advertising Copywriter: Signed Normal [facility] CBC W/Diff, Automatedon 02-21 Absolute Lymph 2.58 X10 3/uL Normal 0.83-4.51 [facility] Comment on above: Performed By: #### L 500.4050, L100.0100, L700.6800 #### [facility] [address] [place], [address] Absolute Neut 6.5 X10 3/uL Normal 2.0-7.7 [facility] Comment on above: Performed By: #### L 500.4050, L100.0100, L700.6800 #### [facility] [address] [place], [address] Basophils/100 WBC (Bld) 0.3 % Normal 0-1 [facility] Comment on above: Performed By: #### L 500.4050, L100.0100, L700.6800 #### [facility] [address] [place], [address] Eosinophils/100 WBC (Bld) 3.3 % Normal 0-5 [facility] Comment on above: Performed By: #### L 500.4050, L100.0100, L700.6800 #### [facility] [address] [place], [address] Erythrocyte distribution width (RBC) [Ratio] 13.4 % Normal 11.6-14.6 [facility] Comment on above: Performed By: #### L 500.4050, L100.0100, L700.6800 #### [facility] [address] [place], [address] Hematocrit (Bld) [Volume fraction] 41.4 % Normal 37-47 [facility] Comment on above: Performed By: #### L 500.4050, L100.0100, L700.6800 #### [facility] [address] [place], [address] Hemoglobin (Bld) [Mass/Vol] 14.4 g/dL Normal 12.0-15.0 [facility] Comment on above: Performed By: #### L 500.4050, L100.0100, L700.6800 #### [facility] [address] [place], [address] IG% 0.600 Normal 0.0-0.9 [facility] Comment on above: Result Comment: IG% - Immature Granulocytes (promyelocytes, myelocytes and metamyelocytes) > 1% indicates that a LEFT SHIFT is Present. Performed By: #### L 500.4050, L100.0100, L700.6800 #### [facility] [address] [place], [address] Lymphocytes/100 WBC (Bld) 26.3 % Normal 19-41 [facility] Comment on above: Performed By: #### L 500.4050, L100.0100, L700.6800 #### [facility] [address] [place], [address] MCH (RBC) [Entitic mass] 28.1 pg Normal 27.0-32.0 [facility] Comment on above: Performed By: #### L 500.4050, L100.0100, L700.6800 #### [facility] [address] [place], [address] MCHC (RBC) [Mass/Vol] 34.8 g/dL Normal 32-36 [facility] Comment on above: Performed By: #### L 500.4050, L100.0100, L700.6800 #### [facility] [address] [place], [address] MCV (RBC) [Entitic vol] 80.7 fL Low 81-99 [facility] Comment on above: Performed By: #### L 500.4050, L100.0100, L700.6800 #### [facility] [address] [place], [address] Monocytes/100 WBC (Bld) 3.8 % Normal 0-10 [facility] Comment on above: Performed By: #### L 500.4050, L100.0100, L700.6800 #### [facility] [address] [place], [address] Neutrophils/100 WBC (Bld) 65.7 % Normal 47-70 [facility] Comment on above: Performed By: #### L 500.4050, L100.0100, L700.6800 #### [facility] [address] [place], [address] Nucleated RBC (Bld) [#/Vol] 0 10*3/uL Normal 0-5 [facility] Comment on above: Performed By: #### L 500.4050, L100.0100, L700.6800 #### [facility] [address] [place], [address] Platelet mean volume (Bld) [Entitic vol] 10.0 fL Normal 6.2-12.0 [facility] Comment on above: Performed By: #### L 500.4050, L100.0100, L700.6800 #### [facility] [address] [place], [address] Platelets (Bld) [#/Vol] 252 10*3/uL Normal 150-450 [facility] Comment on above: Performed By: #### L 500.4050, L100.0100, L700.6800 #### [facility] [address] [place], [address] RBC (Bld) [#/Vol] 5.13 10*6/uL Normal 4.2-5.4 [facility] Comment on above: Performed By: #### L 500.4050, L100.0100, L700.6800 #### [facility] [address] [place], [address] RDW SD 39.2 fl Normal 35.1-43.9 [facility] Comment on above: Performed By: #### L 500.4050, L100.0100, L700.6800 #### [facility] [address] [place], [address] WBC (Bld) [#/Vol] 9.8 10*3/uL Normal 4.4-11.0 [facility] Comment on above: Performed By: #### L 500.4050, L100.0100, L700.6800 #### [facility] [address] [place], [address] CNPSara 03-19-2025 CNPN Telephone (PNMDNA) GRETA ANDRES ([id number]) 1990 F Date Time Provider Department 03/19/25 CARLIE BROWNLEE PNRACH During your visit today, we recorded the following information about you: Roselia Verdin 03/19/2025 1:45 PM Signed Patient was seen at [facility] for kidney stones today. Patient was given an RX for pain medication and questions if she can pepper picker or if picking up a pain medication from a different doctor is in breach of her contact with Dr. Contreras. Call [phone]. Patient is requesting a return call as soon as possible, she is experiencing significant pain from stones. Vinh Pierson MA 03/19/2025 1:55 PM Signed Patient receives Tramadol 50 mg tablet: take 1-2 pill PO every day for pain. Called and spoke with the patient and she states they prescribed her hydrocodone-acetaminophen 5-325 #8 pills. Routing to provider for review. Carlie Brownlee, UNLOADER OPERATOR.STATISTICAL FINANCIAL ANALYST 03/19/2025 1:57 PM Signed Hold the tramadol while taking the [place]. I am okay with this Vinh Pierson MA 03/19/2025 1:59 PM Signed Called and spoke to the patient and relayed below. Patient verbalized understanding. Allergies As of Date: 03/19/2025 Noted Allergy Reaction ADHESIVE 02/12/2010 2 - Rash MORPHINE SULFATE 11/12/2008 9 - Itching Comments: had vicodin at same time, but has taken vicodin in past without reaction ADDERALL (DEXTROAMPHETAMINE-AMPHE* 5 - Intolerance Comments: Heart racing, chest pain, diaphoretic, dizzy Date Reviewed: 01/05/2025 Reviewed by: Tomas Alexis APRN.STATISTICAL FINANCIAL ANALYST - Fully Assessed Reason for Visit: Medication Question [7648] Prescriptions as of 03/19/2025 - traMADol (ULTRAM) 50 mg tablet Take 1-2 pills by mouth once a day for 30 days for pain, prn Patient should start on March 08, 2025. - SUMAtriptan (IMITREX) 50 mg tablet Take 1 tablet (50 mg) by mouth as needed for migraine headache (see administration instructions). May repeat dose after 2 hours if needed. Maximum daily dose is 200 mg per day. - magnesium glycinate 100 mg magnesium capsule Take 2 capsules by mouth two times a day. - Qkrbv-4-XWA-EPA-Fish Oil (FISH OIL) 1,000 (120-180) mg cap Take 2 capsules by mouth two times a day. - riboflavin, vitamin B2, 400 mg tab Take 1 tablet by mouth once daily. - hydroCHLOROthiazide 25 mg tablet Take 1 tablet by mouth once daily. - propranolol (INDERAL) 20 mg tablet Take 1 tablet by mouth once daily. - QUEtiapine (SEROQUEL) 50 mg tablet Take 1 tablet by mouth daily at bedtime. [facility] - cariprazine (VRAYLAR) 1.5 mg capsule Take 1 capsule by mouth once daily. [facility] - Cholecalciferol, Vitamin D3, 50 mcg (2,000 unit) cap Take 1 capsule by mouth once daily. - cyclobenzaprine (FLEXERIL) 5 mg tablet Take by mouth twice daily as needed. - albuterol HFA (VENTOLIN HFA) 90 mcg/actuation inhaler Inhale 2 Puffs as instructed every 6 hours as needed for wheezing/shortness of breath. - levothyroxine (SYNTHROID) 25 mcg tablet Take 1 tablet by mouth daily before breakfast. Take 225 mcg total of synthroid daily (so add this 25mcg tab to your daily 200mcg tab) - levothyroxine (SYNTHROID) 200 mcg tablet Take 1 tablet by mouth once daily. - etonogestrel (NEXPLANON) subdermal implant 68 mg 68 mg by SUBDERMAL route one time only. Problem List As Of Date 03/19/2025 Noted Resolved Irregular menstrual cycle [N92.6] 04/11/2007 Backache, unspecified [M54.9] 06/19/2008 07/27/2019 Other joint derangement, not elsewhere classifi*08/20/2008 04/25/2024 Other acquired deformity of toe [M20.5X9] 05/20/2009 07/27/2019 Lactose intolerance [E73.9] 03/31/2012 Anxiety, generalized [F41.1] 03/31/2012 Congenital heart defect [Q24.9] 03/31/2012 Lumbago [M54.50] 07/27/2012 Lumbar degenerative disc disease [M51.369] 07/27/2012 Back pain [M54.9] 08/07/2013 04/25/2024 Exercise-induced asthma [J45.990] 03/22/2014 Vitamin D deficiency [E55.9] 03/22/2014 Fibromyalgia [M79.7] 05/07/2014 07/27/2019 Routine gynecological examination [Z01.419] 08/10/2014 07/27/2019 Screening for diabetes mellitus (DM) [Z13.1] 08/10/2014 07/27/2019 Need for lipid screening [Z13.220] 08/10/2014 07/27/2019 Esophageal reflux [K21.9] 02/21/2015 07/27/2019 Chronic fatigue disorder [G93.32] 03/19/2015 Attention and concentration deficit [R41.840] 03/19/2015 07/27/2019 SI (sacroiliac) joint dysfunction [M53.3] 11/06/2015 Migraine without aura and without status migrai*05/20/2017 Well adult exam [Z00.00] 10/19/2017 Bipolar 1 disorder (HCC) [F31.9] 02/14/2018 PTSD (post-traumatic stress disorder) [F43.10] 02/14/2018 Primary thyroid papillary carcinoma (HCC) [C73] 07/21/2019 S/P total thyroidectomy [Z98.890, Z90.89] 07/31/2019 Post-surgical hypothyroidism [E89.0] 08/25/2019 Hypertension, essential [I10] 07/06/2022 Vomiting, persistent, in adult [R11.15] 03/03/2023 O (more content not included)... Normal [facility] ilon 03-19-2025 Albumin [Mass/Vol] 4.2 g/dL Normal 3.5-5.0 [facility] Comment on above: Performed By: #### L 3100.0539 #### [facility] [address] [place], [address] Albumin/Globulin [Mass ratio] 1.3 {ratio} Normal 0.9-2.4 [facility] Comment on above: Performed By: #### L 3100.0539 #### [facility] [address] [place], [address] ALK PHOS 77 U/L Normal 35-104 [facility] Comment on above: Performed By: #### L 3100.0539 #### [facility] [address] [place], [address] ALT [Catalytic activity/Vol] 22 U/L Normal <=34 [facility] Comment on above: Performed By: #### L 3100.0539 #### [facility] [address] [place], [address] AST [Catalytic activity/Vol] 29 U/L Normal <=31 [facility] Comment on above: Result Comment: Hemo lysis present, Results??could be affected. ?? Performed By: #### L 3100.0539 #### [facility] [address] [place], [address] Bilirubin [Mass/Vol] 0.33 mg/dL Normal 0.00-1.30 [facility] Comment on above: Performed By: #### L 3100.0539 #### [facility] [address] [place], [address] BUN/CRE 8.1 RATIO Low 10-20 [facility] Comment on above: Performed By: #### L 3100.0539 #### [facility] [address] [place], [address] Calcium [Mass/Vol] 9.0 mg/dL Normal 7.6-11.0 [facility] Comment on above: Performed By: #### L 3100.0539 #### [facility] [address] [place], [address] Chloride [Moles/Vol] 107 mmol/L Normal 98-108 [facility] Comment on above: Performed By: #### L 3100.0539 #### [facility] [address] [place], [address] CO2 [Moles/Vol] 21.9 mmol/L Normal 21.0-32.0 [facility] Comment on above: Performed By: #### L 3100.0539 #### [facility] [address] [place], [address] Creatinine [Mass/Vol] 0.83 mg/dL Normal 0.70-1.20 [facility] Comment on above: Performed By: #### L 3100.0539 #### [facility] [address] [place], [address] ECRCL 104.09 ml/min Normal 50-250 [facility] Comment on above: Performed By: #### L 3100.0539 #### [facility] [address] [place], [address] GAP 11 Normal 5-15 [facility] Comment on above: Performed By: #### L 3100.0539 #### [facility] [address] [place], [address] GFR/1.73 sq M.predicted among non-blacks MDRD (S/P/Bld) [Vol rate/Area] 94 mL/min/{1.73_m2} Normal >60 [facility] Comment on above: Result Comment: mL/m in/1.73m2 CKD-EPI Creatinine Equation (2020) Performed By: #### L 3100.0539 #### [facility] [address] [place], [address] Globulin (S) [Mass/Vol] 3.3 g/dL Normal 2.2-4.2 [facility] Comment on above: Performed By: #### L 3100.0539 #### [facility] [address] [place], [address] Glucose [Mass/Vol] 105 mg/dL High 70-99 [facility] Comment on above: Performed By: #### L 3100.0539 #### [facility] [address] [place], [address] Potassium [Moles/Vol] 4.2 mmol/L Normal 3.3-5.1 [facility] Comment on above: Result Comment: Hemo lysis present, Results??could be affected. ?? Performed By: #### L 3100.0539 #### [facility] [address] [place], [address] Sodium [Moles/Vol] 141 mmol/L Normal 133-145 [facility] Comment on above: Performed By: #### L 3100.0539 #### [facility] [address] [place], [address] T PROT 7.4 g/dL Normal 5.9-8.4 [facility] Comment on above: Performed By: #### L 3100.0539 #### [facility] [address] [place], [address] Urea nitrogen [Mass/Vol] 7 mg/dL Normal 4-19 [facility] Comment on above: Performed By: #### L 3100.0539 #### [facility] [address] [place], [address] Emergency Department Summary on 03-19-2025 Emergency Department Summary [facility] Medical Records Department [address] [place] [address] Emergency Department Summary 03/19/25 MR#: [id number] Acct: [id number] Name: GRETA ANDRES Rep #: [id number] : 1990 35 From: Ester WILCOX PCP: Dr. Nagi Red MD Status:DEP ER Location: ED HPI History of Present Illness Chief Complaint: Flank Pain Narrative Narrative: Patient presenting today with right-sided flank pain she has had over the past 6 days. She reports that the pain is a aching sensation that radiates to the right side of her abdomen. She has extensive history of kidney stones and was seen at [facility] yesterday and had a CT scan of the abdomen and pelvis that did not show any evidence of ureteral stone. She reports she has had multiple episodes of nausea and vomiting over the past 6 days. She denies fevers, chills, urinary symptoms, diarrhea, and hematemesis. [facility] Medical History Kidney stone Cancer Anemia Migraine headache History of GI bleed Non-smoker Shortness of breath on exertion Leg cramps Hypertension Cardiology follow-up encounter Vitamin D deficiency PTSD (post-traumatic stress disorder) Papillary thyroid carcinoma Lupus Lactose intolerance Fibromyalgia DDD (degenerative disc disease) Congenital hip deformity Congenital heart defect Chronic fatigue Back pain Anxiety Bloating Environmental allergies Asthma Home Medications ???Medication ???Instructions ???Recorded ???Last Taken ???Type albuterol sulfate 90 mcg/actuation 1 - 2 puff inhalation Q4H PRN WI N 11/06/19 Unknown History aerosol inhaler Sob /Or Wheezing rizatriptan 10 mg tablet (Maxalt) 10 mg PO PRN PRN MIGRAINES Unknown History tramadol 50 mg tablet 50 mg PO Q6H PRN Pain 04/05/23 History cyclobenzaprine 10 mg tablet 10 mg PO TID PRN Muscle Spasm #20 03/13/24 Unknown Rx TABLETS cariprazine 1.5 mg capsule 1.5 mg PO DAILY 05/13/24 03/18/25 History (José Miguel) ondansetron 4 mg disintegrating 4 mg PO Q6H PRN nausea and 4 Unknown Rx tablet vomiting #20 tabs promethazine 12.5 mg tablet 12.5 mg PO TID PRN nausea and 12/2403/18/25 Rx vomiting #30 tabs scopolamine base 1 mg over 3 days 1 patch transdermal Q3D PRN nasue a 01/19/25 Unknown Rx transdermal patch #24 ea hydrochlorothiazide 25 mg tablet 25 mg PO DAILY 03/19/25 03/18/25 H istory hydrocodone-acetaminophen 5-325mg 1 tab PO Q4H PRN PRN Pain 2 days 03/19/25 Unknown Rx 5mg-325mg #8 TABLETS levothyroxine 200 mcg tablet 200 mcg PO DAILY 03/19/25 03/18/25 History levothyroxine 25 mcg tablet 25 mcg PO MOWE 03/19/25 03/14/25 H istory ondansetron 4 mg disintegrating 4 mg PO Q8H PRN PRN Nausea #10 tab s 03/19/25 Unknown Rx tablet prazosin 2 mg capsule 2 mg PO QHS 03/19/25 03/18/25 Hist ory quetiapine 50 mg tablet 50 mg PO QHS 03/19/25 03/18/25 His tory Allergy/AdvReac Type Severity Reaction Status Date / Time amphetamine (From Adderall) Allergy Severe unknown Verified 03/19/25 10:23 dextroamphetamine (From Allergy Severe unknown Verified 03/19/25 10:23 Adderall) adhesive tape Allergy Intermediate Rash Verified 03/19/25 10:23 morphine Allergy Rash Verified 03/19/25 10:23 Family History Mother Asthma Diabetes Hypertension Crohn's disease Kidney disease Father Hypertension Sister Bone cancer Other Bipolar 1 disorder Surgical History Hx of thyroidectomy Hx of esophagogastroduodenoscopy Hx of colonoscopy History of cystoscopy Hx of tubal ligation History of sinus surgery Hx of cholecystectomy S/P right knee arthroscopy Social History Smoking Status: Never smoker alcohol intake: never ROS ROS ED Constitutional Constitutional ED: Denies chills or fever(s) Cardiovascular Cardiovascular: Denies chest pain Respiratory/Chest Respiratory/Chest: Denies dyspnea Gastrointestinal Gastrointestinal: Reports nausea and vomiting; Denies abdominal pain, constipation or diarrhea Genitourinary Genitourinary ED: Denies dysuria, hematuria or urinary urgency Musculoskeletal Musculoskeletal: Reports back pain Integumentary Denies rash Neurologic Neurologic: Denies weakness EXAM Physical Exam Const Vital Signs: 03/19/25 10:23 03/19/25 12:26 03/19/25 13:21 Temperature 98.3 F 97.7 F L Temperature Source Oral Pulse Rate 68 66 71 Respiratory Rate 16 17 17 Blood Pressure 153/109 H 144/76 H 123/92 H Blood Pressure Mean 123 98 102 Pulse Ox 100 100 98 Oxygen Delivery Method Room Air (more content not included)... Normal [facility] ,Serum,hCG Quali.on 03-19-2025 HCG, SERUM QUAL Negative Normal [facility] Comment on above: Performed By: #### L 3100.0539 #### [facility] [address] [place], [place], [id number] Urinalysis, Completeon 03-19 WBC 0-5 SEEN Normal 0-5 [facility] Comment on above: Order Comment: COLLE CTOR TO SPECIFY Performed By: #### L 400.0001 #### [facility] [address] [place], [address] EPI,SQUAMOUS 10-25 SEEN Normal 5-10 [facility] Comment on above: Order Comment: COLLE CTOR TO SPECIFY Performed By: #### L 400.0001 #### [facility] [address] [place], [address] BACTERIA 0 SEEN Normal None Seen [facility] Comment on above: Order Comment: COLLE CTOR TO SPECIFY Performed By: #### L 400.0001 #### [facility] [address] [place], [address] Mucus Ql (Urine sed) 0 SEEN Normal [facility] Comment on above: Order Comment: COLLE CTOR TO SPECIFY Performed By: #### L 400.0001 #### [facility] [address] [place], [place], [id number] RBC 0 SEEN Normal 0-5 [facility] Comment on above: Order Comment: COLLE CTOR TO SPECIFY Performed By: #### L 400.0001 #### [facility] [address] [place], [address] CBC + DIFFon 03-18-2025 Baso # 0.03 x10EE3/UL Normal 0.00 - 0.10 [facility] Comment on above: Performed By: #### 2 59621 #### [facility],[address] [place] [address] Basophils/100 WBC (Bld) 0.2 % Normal 0.0 - 2.0 [facility] Comment on above: Performed By: #### 2 07306 #### [facility],[address] [place] [address] 23755 CBC + DIFF Normal [facility] Comment on above: Result Comment: CBC- COMPLETE BLOOD COUNT Performed By: #### 2 34577 #### [facility],[address] [place] [address] 10661 EO # 0.41 x10EE3/UL Normal 0.00 - 0.50 [facility] Comment on above: Performed By: #### 2 50080 #### [facility],[address] [place] [address] 94269 Eosinophils/100 WBC (Bld) 3.8 % Normal 0.0 - 7.0 [facility] Comment on above: Performed By: #### 2 67956 #### [facility],[address] [place] [address] 21250 Erythrocyte distribution width (RBC) [Ratio] 14.3 % Normal 12.0 - 15.6 [facility] Comment on above: Performed By: #### 2 37914 #### [facility],[address] [place] [address] 18766 Hematocrit (Bld) [Volume fraction] 39.6 % Normal 34.0 - 46.0 [facility] Comment on above: Performed By: #### 2 92878 #### [facility],[address] [place], [place] [id number] Hemoglobin (Bld) [Mass/Vol] 14.0 g/dL Normal 12.0 - 16.0 [facility] Comment on above: Performed By: #### 2 05312 #### [facility],[address] [place] [address] Lymph # 3.07 x10EE3/UL High 0.80 - 2.80 [facility] Comment on above: Performed By: #### 2 00884 #### [facility],[address] [place], [place] [id number] Lymphocytes/100 WBC (Bld) 27.8 % Normal 20.0 - 45.0 [facility] Comment on above: Performed By: #### 2 77438 #### [facility],[address] [place], [place] [id number] MANUAL DIFF N/A Normal [facility] Comment on above: Performed By: #### 2 88082 #### [facility],[address] [place], [place] [id number] MCH (RBC) [Entitic mass] 28 pg Normal 27 - 33 [facility] Comment on above: Performed By: #### 2 47692 #### [facility],[address] [place], [place] [id number] MCHC 35 X10 3 Normal 32 - 36 [facility] Comment on above: Performed By: #### 2 23769 #### [facility],[address] [place] [address] 99457 MCV (RBC) [Entitic vol] 80 fL Normal 80 - 99 [facility] Comment on above: Performed By: #### 2 01138 #### [facility],[address] [place] [address] 03305 Centre # 0.58 x10EE3/UL Normal 0.20 - 1.00 [facility] Comment on above: Performed By: #### 2 38553 #### [facility],[address] [place] [address] 77704 MONOS % 5.2 % Normal 0.0 - 10.0 [facility] Comment on above: Performed By: #### 2 20862 #### [facility],[address] [place] [address] 17619 Morphology Cristi (Bld) [Interp] N/A Normal [facility] Comment on above: Performed By: #### 2 65419 #### [facility],[address] [place] [address] 27179 Neut # 6.93 x10EE3/UL Normal 1.50 - 7.10 [facility] Comment on above: Performed By: #### 2 29415 #### [facility],[address] [place] [address]276 Neutrophils/100 WBC (Bld) 62.9 % Normal 46.0 - 76.0 [facility] Comment on above: Performed By: #### 2 32057 #### [facility],[address] [place] [address] 10658 PLATELET 239 x10EE3/UL Normal 150 - 450 [facility] Comment on above: Performed By: #### 2 42748 #### [facility],[address] [place] [address] 46574 Platelet mean volume (Bld) [Entitic vol] 8.1 fL Normal 6.6 - 10.5 [facility] Comment on above: Result Comment: AUTO MATED DIFFERENTIAL Performed By: #### 2 49680 #### [facility],[address] [place] [address] 36683 RBC 4.97 x 10EE6/UL Normal 4.10 - 5.30 [facility] Comment on above: Performed By: #### 2 38839 #### [facility],[address] [place] [address] 34050 WBC 11.0 x 10EE3/UL High 4.5 - 10.8 [facility] Comment on above: Performed By: #### 2 84086 #### [facility],[address] [place] [address] 76521 CMP with eGFRon 03-18-2025 AGE 35 years Normal [facility] Comment on above: Performed By: #### 2 50451 ####[facility],[address] [place] [address] 94352 Albumin [Mass/Vol] 3.4 g/dL Normal 3.4 - 5.0 [facility] Comment on above: Performed By: #### 2 24483 ####[facility],[address] [place], [place] [address] Albumin/Globulin [Mass ratio] 0.9 {ratio} Normal 0.9 - 1.6 [facility] Comment on above: Performed By: #### 2 31548 ####[facility],[address] [place] [address] 83235 ALK PHOS 69 U/L Normal 46 - 116 [facility] Comment on above: Performed By: #### 2 16174 ####[facility],[address] [place] [address] 74244 ALT [Catalytic activity/Vol] 25 U/L Normal 16 - 63 [facility] Comment on above: Performed By: #### 2 54797 ####[facility],[address] [place] [address] 70627 Anion gap [Moles/Vol] 11 mmol/L Normal 10 - 20 [facility] Comment on above: Performed By: #### 2 88632 ####[facility],[address] [place] [address] 54389 AST [Catalytic activity/Vol] 20 U/L Normal 13 - 39 [facility] Comment on above: Performed By: #### 2 67052 ####[facility],[address] [place] [address] 73020 B/C RATIO 11 ratio Normal 0 - 30 [facility] Comment on above: Performed By: #### 2 71836 ####[facility],[address] [place] [address] 40636 Bilirubin [Mass/Vol] 0.3 mg/dL Normal 0.2 - 1.0 [facility] Comment on above: Performed By: #### 2 57620 ####[facility],[address] [place] [address] 44318 Calcium [Mass/Vol] 8.6 mg/dL Normal 8.5 - 10.1 [facility] Comment on above: Performed By: #### 2 50539 ####[facility],[address] [place] [address] 57294 Chloride [Moles/Vol] 108 mmol/L High 98 - 107 [facility] Comment on above: Performed By: #### 2 46411 ####[facility],[address] [place] [address] 89077 CMP with eGFR Normal [facility] Comment on above: Result Comment: COMP REHENSIVE METABOLIC PANEL Performed By: #### 2 83110 ####[facility],[address] [place] [address] 65368 CO2 [Moles/Vol] 25.4 mmol/L Normal 21.0 - 32.0 [facility] Comment on above: Performed By: #### 2 03774 ####[facility],[address] [place] [address] 44091 Creatinine [Mass/Vol] 0.81 mg/dL Normal 0.55 - 1.02 [facility] Comment on above: Performed By: #### 2 16602 ####[facility],[address] [place] [address] 60293 GFR/1.73 sq M.predicted among non-blacks MDRD (S/P/Bld) [Vol rate/Area] mL/min/{1.73_m2} Normal 60 - 999 [facility] Comment on above: Performed By: #### 2 75945 ####[facility],[address] [place] [address] Result Comment: ACCO RDING TO THE NATIONAL KIDNEY DISEASE EDUCATION PROGRAM(NKDE), A NORMAL eGFR IS A VALUE GREATER THAN OR EQUAL TO 60 ML/MIN/1.73 SQ METERS. CHRONIC KIDNEY DISEASE: <60mL/MIN/1.73 SQ METERS KIDNEY FAILURE: <15mL/MIN/1.73 SQ METERS THIS TEST SHOULD ONLY BE USED FOR PATIENTS 18 YEARS OF AGE AND OLDER. Globulin (S) [Mass/Vol] 3.9 g/dL High 1.5 - 3.8 [facility] Comment on above: Performed By: #### 2 53375 ####[place] [address] Glucose [Mass/Vol] 87 mg/dL Normal 74 - 106 [facility] Comment on above: Performed By: #### 2 39359 ####[address] [address] Potassium [Moles/Vol] 3.7 mmol/L Normal 3.5 - 5.1 [facility] Comment on above: Performed By: #### 2 70354 ####[place] [id number] Protein [Mass/Vol] 7.3 g/dL Normal 6.4 - 8.2 [facility] Comment on above: Performed By: #### 2 74213 ####[address] [address] Sodium [Moles/Vol] 141 mmol/L Normal 136 - 145 [facility] Comment on above: Performed By: #### 2 84479 ####[address] [address] Urea nitrogen [Mass/Vol] 9 mg/dL Normal 7 - 18 [facility] Comment on above: Performed By: #### 2 64813 ####[facility],[address] [place] [address] KUB (KIDNEY STONE PROTOCO L)on 03-18-2025 CT KUB (KIDNEY STONE PROTOCOL) [address] [address] Patient: GRETA ANDRES Phone#: : 1990 Age: 35 Gender: F Pt. Type: ER Account: [id number] Location: [facility] Ordering: NOBLE SARMIENTO Exam Date: 03/18/2025/14:29 Family Phys: NAGI RED Charge Code: [id number] Physician: [place] Order #: [id number] Dose#: 10.90 mGy PROCEDURE: CT ABDOMEN AND PELVIS WITHOUT CONTRAST COMPARISON: [facility], CT, KUB W/O CON, 03/28/2023, 13:15. INDICATIONS: Flank pain. TECHNIQUE: After obtaining the patient's consent, CT images of the abdomen and pelvis were created without non-ionic intravenous contrast material. All CT scans at this facility use dose modulation, iterative reconstruction, and/or weight based dosing when appropriate to reduce radiation dose to as low as reasonably achievable. IV CONTRAST: No IV contrast used,0.0ml TOTAL DOSE: 10.90 CTDIvol(mGy) FINDINGS: KIDNEYS: Nonobstructing 6 millimeter calcifications present in the lower pole of the right kidney. There are at least 3 calculi in the left kidney, nonobstructing measuring 4 millimeters, 4 millimeters and 2 millimeters. There is no evidence of hydronephrosis. ADRENALS: Normal. No mass or enlargement. URINARY BLADDER: Normal. No visible focal wall thickening, lesion, or calculus. LIVER: Normal. No enlargement, atrophy, abnormal density, or significant focal lesion. BILIARY: The gallbladder is absent. PANCREAS: Normal. No lesion, fluid collection, ductal dilatation, or atrophy. SPLEEN: Normal. No enlargement or focal lesion. AORTA/VASCULAR: Normal. No aneurysm. RETROPERITONEUM: Normal. No mass or adenopathy. BOWEL/MESENTERY: The appendix is normal.. No visible mass, obstruction, or bowel wall thickening. ABDOMINAL WALL: Normal. No mass or hernia. PELVIC NODES: Normal. No adenopathy. PELVIC ORGANS: Normal. No visible mass. Pelvic organs appropriate for patient age. BONES: Normal. No bony lesion or fracture. Continued Report - Page 2 of 2 Patient: GRETA ANDRES Phone#: : 1990 Age: 35 Gender: F Pt. Type: ER Account: [id number] Location: 052 Ordering: NOBLE SARMIENTO Exam Date: 03/18/2025/14:29 Family Phys: NAGI RED Charge Code: [id number] Physician: [place] Order #: [id number] Dose#: 10.90 mGy LUNG BASES: Normal. No visible pulmonary or pleural disease. OTHER: Negative. CONCLUSION: 1. Nonobstructing bilateral renal calculi are present. There is no evidence of hydronephrosis or ureteral calculus. Dictated by: Fabiola Cantrell MD on 03/18/2025 at 19:26 Approved by: Fabiola Cantrell MD on 03/18/2025 at 19:30 Normal [facility] ED MED ADMINISTRATION DETAIL on 03-18-2025 ED MED ADMINISTRATION DETAIL Parquetry Layer Medication Administration Record [address] [place] [address] [id number] 03/18/2025 Patient: GRETA ANDRES Sex: Female : 1990 Age: 35y MEASUREMENTS: Wt: 86.2 kg, Ht/Grzegorz: 65.0 in, BMI: 31.62 ALLERGIES: Adderall, morphine Medication Ordered Medication Administration Date/Time IV NS 0.9 % 1000 13:03/18 IV NS 0.9 % 1000 mL started in bag#1 1000 mL at Started mL at 500 mL/hr 500 mL/hr over 2 hour(s) via Site# 1. Allergies verified and 13:03/18/2025 (NOW x1) confirmed 5 rights. IV patency established. IV site checked: no pain, Judson Yang, redness, or swelling. IV flushed thoroughly pre-medication E.M.T.-P. administration. Information reviewed with patient. Verbalizes Stopped understanding. Completed per protocol. - 13:32 Judson Yang, 16:15 03/18/2025 E.M.T.-P. Tiffani Cheng R.N. Scanned 16:15 03/18 Medication Discontinued: bag #1 completed upon discharge. Total amount infused: 1000 mL. IV patency established. IV site checked: no pain, redness, or swelling. IV flushed thoroughly post-medication administration. - 16:16 Tiffani Cheng R.N. HYDROmorphone 13:43 03/18 HYDROmorphone (Dilaudid) IVP 0.5 mg given via Given (Dilaudid) IVP 0.5 Site# 1. Allergies verified and confirmed 5 rights. IV patency 13:43 03/18/2025 mg (NOW x1, HIGH established. IV site checked: no pain, redness, or swelling. IV Tiffani Cheng R.N. ALERT flushed thoroughly pre-medication administration. Information Scanned MEDICATION) reviewed with patient. Verbalizes understanding. - 13:43 Tiffani Cheng R.N. 1 of 2 Parquetry Layer Medication Ordered Medication Administration Date/Time Zofran IVP 4 mg 13:42 03/18 Zofran IVP 4 mg given via Site# 1. Allergies verified Given (NOW x1) and confirmed 5 rights. IV patency established. IV site checked: no 13:42 03/18/2025 pain, redness, or swelling. IV flushed thoroughly pre-medication Tiffani Cheng R.N. administration. Information reviewed with patient. Verbalizes Scanned understanding. - 13:43 Tiffani Cheng R.N. KetorOLAC 14:58 03/18 KetorOLAC (Toradol) IVP 15 mg given via Site# 1. Given (Toradol) IVP 15 mg Allergies verified and confirmed 5 rights. IV patency established. IV 14:58 03/18/2025 (NOW x1) site checked: no pain, redness, or swelling. IV flushed thoroughly Judson Yang pre-medication administration. IVP given by EMT-P. Information E.M.T.-P. reviewed with patient. Verbalizes understanding. Medication Scanned Wastage: 15 mg wasted. - 14:58 Judson Yang E.M.T.-P. HYDROmorphone 15:38 03/18 HYDROmorphone (Dilaudid) IVP 0.5 mg given via Given (Dilaudid) IVP 0.5 Site# 1. Allergies verified and confirmed 5 rights. IV patency 15:38 03/18/2025 mg (NOW x1, HIGH established. IV site checked: no pain, redness, or swelling. IV Tiffani Cheng R.N. ALERT flushed thoroughly pre-medication administration. Information Scanned MEDICATION) reviewed with patient. Verbalizes understanding. - 15:39 Tiffani Cheng R.N. 2 of 2 Normal [facility] ED NURSES CLINICAL NOTEon ED NURSES CLINICAL NOTE Nurse Narrative Nurse Clinical Narrative [address] [place] [address] [id number] 03/18/2025 12:53:00 Patient: GRETA ANDRES Sex: Female : 1990 Age: 35y Disposition: Discharge to Home Disposition Decision Time: 16:07 03/18/2025 Departure Time: 16:16 03/18/2025 TRIAGE Arrived by private vehicle. Historian: (patient). Accompanied by family. Patient has a primary care physician. Primary physician (daniella). Triage time: 12:56 03/18/2025. Acuity: LEVEL 3. Chief Complaint: RIGHT-SIDED FLANK PAIN. ( right flank pain x5 days, nausea, vomiting. hx of stones and surgery on right kidney). SEPSIS SCREEN: NEGATIVE. SIRS criteria negative. No possible sources of infection. -- 13:03/18/25 EDT Guicho Huffman R.N. 13:00 03/18/25. BP: 155/104 MAP: 121. HR: 74. RR: 16. O2 saturation: 99% Temperature: 98.1 F. Pain level now 6/10. -- 13:03/18/25 EDT Guicho Huffman R.N. Measurements: 13:03/18/25 Wt: 86.2 kg, Ht/Grzegorz: 65.0 in, BMI: 31.62 -- 13:01 03/18/25 DEBORAT Guicho Huffman R.N. Medications: promethazine 12.5 mg tablet -- 13:04 03/18/25 DEBORAT Guicho Huffman R.N. sumatriptan 50 mg tablet -- 13:04 03/18/25 T Guicho Huffman R.N. tramadol 50 mg tablet -- 13:04 03/18/25 T Guicho Huffman R.N. 1 of 4 Nurse Narrative levothyroxine 200 mcg tablet -- 13:04 03/18/25 [facility] Guicho Huffman R.N. propranolol 20 mg tablet -- 13:04 03/18/25 DEBORA Guicho Huffman R.N. levothyroxine 25 mcg tablet -- 13:04 03/18/25 [facility] Guicho Huffman R.N. prazosin 2 mg capsule -- 13:04 03/18/25 [facility] Guicho Huffman R.N. hydrochlorothiazide 25 mg tablet -- 13:04 03/18/25 [facility] Guicho Huffman R.N. quetiapine 50 mg tablet -- 13:04 03/18/25 T Guicho Huffman R.N. magnesium 100 mg (as glycinate) capsule: TAKE 1 CAPSULE BY MOUTH TWICE DAILY -- 13:04 03/18/25 BEN Huffman R.N. scopolamine 1 mg over 3 days transdermal patch -- 13:04 03/18/25 DEBORAT Guicho Huffman R.N. Vraylar 1.5 mg capsule -- 13:04 03/18/25 [facility]BORAT Guicho Huffman R.N. Allergies: morphine -- 12:57 03/18/25 [facility]AT Guicho Huffman R.N. Adderall -- 12:57 03/18/25 DEBORAT Guicho Huffman R.N. Problems: Asthma -- 12:57 03/18/25 DEBORAT Guicho Huffman R.N. thyroid cancer -- 12:57 03/18/25 DEBORAT Guicho Huffman R.N. Gastroparesis -- 12:58 03/18/25 EDT Guicho Huffman R.N. kidney stones -- 12:58 03/18/25 EDT Guicho Huffman R.N. ADDITIONAL SURGERIES: Cholecystectomy -- 12:58 03/18/25 DEBORAT Guicho Huffman R.N. Sinus Surgery -- 12:58 03/18/25 EDT Guicho Huffman R.N. kidney stone -- 12:58 03/18/25 DEBORAT Guicho Huffman R.N. urethra widening -- 12:58 03/18/25 EDT Guicho Huffman R.N. Thyroidectomy -- 12:59 03/18/25 DEBORAT Guicho Huffman R.N. History 12:56 03/18/25. SOCIAL HX: Never smoker. No alcohol use or drug use. The patient has not traveled outside the [place] Infectious disease exposure: No infectious disease exposure. ABUSE ASSESSMENT: Abuse denied. 2 of 4 Nurse Narrative SELF HARM ASSESSMENT: Self harm assessment was performed. The patient answered no to the question(s) Do you have thoughts of harming or killing yourself? and Do you have a plan for harming or killing yourself?. FALL RISK ASSESSMENT: Fall risk assessment completed. No risk factors identified. -- 13:03/18/25 DEBORAT Guicho Huffman R.N. Interventions 12:56 03/18/25. Advanced care plan discussed with patient. Patient has advanced directive. -- 13:03/18/25 DEBORAT Guicho Huffman R.N. PHYSICAL ASSESSMENT 13:45 03/18/25. GENERAL / NEURO / PSYCH: Oriented X 4. RESPIRATORY: Respirations not labored. GI / : Abdomen soft and nontender. Bowel sounds within normal limits. ( RIGHT SIDE FLANK PAIN X5 DAYS, KNOWN HX OF KIDNEY STONES.). SKIN: Skin is warm and dry. -- 13:45 03/18/25 EDT Tiffani Cheng R.N. NURSING PROGRESS NOTES 13:03/18/25. Site #1 started via IV in the right antecubital space with a 20g angiocath with aseptic technique and good blood return; 1 attempt. Blood drawn: rainbow set tube(s). Labeled in the presence of the patient and sent to the lab. Saline lock flushed with 5 mL saline. -- 13:30 03/18/25 EDT Akua Cormier-PPolina 13:31 03/18/25. IV NS 0.9 % 1000 mL started in bag#1 1000 mL at 500 mL/hr over 2 hour(s) via Site# 1. Allergies verified and confirmed 5 rights. IV patency established. IV site checked: no pain, redness, or swelling. IV flushed thoroughly pre-medication administration. Information reviewed with patient. Verbalizes understanding. Completed per protocol. -- 13:32 03/18/25 EDT Mauricio CormierT.-P. 13:42 03/18/25. Zofran IVP 4 mg given via Site# 1. Allergies verified and confirmed 5 rights. IV patency established. IV site checked: no pain, redness, or swelling. IV flushed thoroughly pre-medication administration. Information reviewed with patient. Verbalizes understanding. -- 13:43 03/18/25 EDT Tiffani Cheng R.N. 1 (more content not included)... [facility] ED ORDER SHEET (CPOE ONLY)on 03-18-2025 ED ORDER SHEET (CPOE ONLY) Order Sheet Order Sheet [address] [address] [id number] 03/18/2025 Patient: GRETA ANDRES Sex: Female : 1990 Age: 35y MEASUREMENTS: Wt: 86.2 kg, Ht/Grzegorz: 65.0 in, BMI: 31.62 ALLERGIES: Adderall, morphine MEDICATION/IV/DRIP/FLUID ORDERS Order Description Priority Entered Acknowledged Completed IV NS 0.9 %1000 mL at 500 13:00 03/18/2025 13:22 13:32 mL/hr (NOW x1) Noble Sarmiento, 03/18/2025 03/18/2025 Judson Hinds E.M.T.-PPolina MartínezTPolina-PPolina HYDROmorphone (Dilaudid) 13:33 03/18/2025 13:40 13:43 IVP0.5 mg (NOW x1, HIGH Noble Sarmiento, 03/18/2025 03/18/2025 ALERT MEDICATION) Zachary Campa, RPolinaNPolina Reason for ordering with alerts: Benefits outweigh risks --13:33 03/18/2025 Noble Sarmiento D.O. Zofran IVP4 mg (NOW x1) 13:33 03/18/2025 13:40 13:43 Noble Sarmiento, 03/18/2025 03/18/2025 Zachary Campa, RPolinaNPolina Reason for ordering with alerts: Benefits outweigh risks --13:33 03/18/2025 Noble Sarmiento D.O. KetorOLAC (Toradol) IVP15 mg 14:50 03/18/2025 14:53 14:58 1 of 3 Order Sheet (NOW x1) Noble Sarmiento, 03/18/2025 03/18/2025 Zachary Campa E.M.T.-PPolina Reason for ordering with alerts: Benefits outweigh risks --14:50 03/18/2025 Noble Sarmiento D.O. HYDROmorphone (Dilaudid) 15:35 03/18/2025 15:36 15:39 IVP0.5 mg (NOW x1, HIGH Noble Sarmiento, 03/18/2025 03/18/2025 ALERT MEDICATION) Zachary Campa, RPolinaNPolina Reason for ordering with alerts: Benefits outweigh risks --15:35 03/18/2025 Noble Sarmiento D.O. LAB ORDERS Order Description Priority Entered Acknowledged Collected Completed CBC w Diff Stat Stat 13:00 03/18/2025 13:21 03/18/2025 13:32 03/18/2025 Judson Khan Bryan Parker, D.O. E.M.T.-PPolina MartínezT.-PPolina CMP Stat Stat 13:00 03/18/2025 13:21 03/18/2025 13:32 03/18/2025 Judson Khan Bryan Parker, D.O. E.M.T.-PPolina MartínezTPolina-P. Lipase Stat Stat 13:00 03/18/2025 13:21 03/18/2025 13:32 03/18/2025 Judson Khan Bryan Parker, D.O. E.M.TPolina-PPolina MartínezTPolina-P. Urinalysis Stat Stat 13:00 03/18/2025 13:21 03/18/2025 Judson Khan D.O. E.M.T.-P. Urine - HCG Stat 13:00 03/18/2025 13:21 03/18/2025 Stat Judson Khan D.O. E.M.T.-PPolina 2 of 3 Order Sheet DIAGNOSTIC STUDY ORDERS Order Description Priority Entered Acknowledged Completed CT KUB (Kidney stone) Stat Stat 14:24 03/18/2025 14:40 Noble Sarmiento 03/18/2025 Freeman Cheng R.N. Order Comments: 14:24 03/18/2025: Status: Not . Noble Sarmiento D.O. Reason for Study: Flank Pain STAFF ORDERS Order Description Priority Entered Acknowledged Collected Completed IV Saline Lock 13:00 03/18/2025 13:21 03/18/2025 13:32 03/18/2025 Judson Khan Bryan Parker, D.O. E.M.T.-PPolina MartínezTPolina-PPolina [Electronically signed by Noble Sarmiento D.O. (03/18/2025 16:23 EDT)] 3 of 3 [facility] ED PHYSICIAN CLINICAL REPORT on 03-18-2025 ED PHYSICIAN CLINICAL REPORT Narrative Physician Clinical Narrative [address] [address] [id number] 03/18/2025 12:53:00 Patient: GRETA ANDRES Sex: Female : 1990 Age: 35y Disposition: Discharge to Home Disposition Decision Time: 16:07 03/18/2025 Departure Time: 16:16 03/18/2025 Measurements Wt: 86.2 kg, Ht/Grzegorz: 65.0 in, BMI: 31.62 Initial Vital Sign Measured Time BP MAP HR RR O2Sat ETCO2 Temp Pain GCS RTS 13:00 03/18/2025 155/104 121 74 16 99% 98.1 F 6 Time Seen: 12:47 03/18/2025. Arrived- By private vehicle. Historian- patient. Independent historian- family. HISTORY OF PRESENT ILLNESS Chief Complaint: FLANK PAIN. It is described as pain. This started today patient says the pain is a 6/10 a year she has had some pain in her back for couple days but they got worse it is a constant cramping sharp pain. that he she has had nausea and vomiting and she presents to the emergency department with her . states she has had history of kidney stones thyroid cancer surgeries had a cholecystectomy. The patient has had nausea and vomiting. REVIEW OF SYSTEMS CVS: No chest pain. THROAT: No sore throat. CONSTITUTIONAL: No fever or chills. The patient has not had weight loss. : No difficulty with urination or pain with urination. GI: No constipation. Status: Not . 1 of 12 Narrative PAST HISTORY See nurses notes. Asthma Gastroparesis kidney stones thyroid cancer Surgeries: Cholecystectomy kidney stone Sinus Surgery Thyroidectomy urethra widening Medications: hydrochlorothiazide 25 mg tablet levothyroxine 200 mcg tablet levothyroxine 25 mcg tablet magnesium 100 mg (as glycinate) capsule: TAKE 1 CAPSULE BY MOUTH TWICE DAILY prazosin 2 mg capsule promethazine 12.5 mg tablet propranolol 20 mg tablet quetiapine 50 mg tablet scopolamine 1 mg over 3 days transdermal patch sumatriptan 50 mg tablet tramadol 50 mg tablet Vraylar 1.5 mg capsule Allergies: Adderall morphine SOCIAL HISTORY Never smoker. No alcohol use. 2 of 12 Narrative ADDITIONAL NOTES The nursing notes have been reviewed. PHYSICAL EXAM Appearance: Alert. Oriented X3. No acute distress. Eyes: Eyes normal inspection. ENT: Ears normal. Nose normal. Neck: Normal inspection. Neck supple. CVS: Normal heart rhythm and rate. Heart sounds normal. Respiratory: No respiratory distress. Breath sounds normal. Abdomen: Soft and nontender. Back: Normal inspection. Skin: Skin warm and dry. Normal skin color. Normal skin turgor. Extremities: Extremities exhibit normal ROM. Neuro: Oriented X 3. No motor deficit. LABS, X-RAYS, AND EKG Laboratory Tests: URINE Final JUANJOSE: 03/18/2025 13:11:00 EDT MsgRcvd: 03/18/2025 13:29 EDT Lab Test Result Reference Status Received Comments 03/18/2025 13:29 NEGATIVE NEGATIVE Final UR EDT 03/18/2025 13:29 INTERNAL QC PASS Final EDT 3 of 12 Narrative Lab Test Result Reference Status Received Comments Very dilute urine specimens, as indicated by a low specific gravity, may not contain telephone service representative EXTERNAL QC 03/18/2025 13:29 YES Final levels of hCG. If DONE? EDT is still suspected, a first morning urine specimen should be collected 48 hours later and tested. URINALYSIS Final JUANJOSE: 03/18/2025 13:11:00 EDT MsgRcvd: 03/18/2025 13:29 EDT Lab Test Result Reference Status Received Comments 03/18/2025 13:29 URINALYSIS Final URINALYSIS EDT 03/18/2025 13:29 Specimen Type R New Order EDT NORMAL: 03/18/2025 13:29 Color yellow Final YELLOW EDT NORMAL: 03/18/2025 13:29 Clarity clear Final CLEAR EDT NORMAL: 03/18/2025 13:29 ph 6.5 Final 5.0-8.0 EDT 4 of 12 Narrative Lab Test Result Reference Status Received Comments 15 NORMAL: 03/18/2025 13:29 Protein Final Abnormal NEGATIVE EDT NORMAL: 03/18/2025 13:29 Glucose NORM Final NORMAL EDT NORMAL: 03/18/2025 13:29 Ketone NEG Final NEGATIVE EDT NORMAL: 03/18/2025 13:29 Bilirubin NEG Final NEGATIVE EDT NORMAL: 03/18/2025 13:29 Blood NEG Final NEGATIVE EDT NORMAL: 03/18/2025 13:29 Urobilinog NORM Final NORMAL EDT NORMAL: 03/18/2025 13:29 Sp [place] 1.015 Final 1.010-1.030 EDT NORMAL: 03/18/2025 13:29 Nitrite NEG Final NEGATIVE EDT NORMAL: 03/18/2025 13:29 Leukocytes NEG Final NEGATIVE EDT 03/18/2025 13:29 Microscopic NOT INDICATED Final EDT CBC + DIFF Final JUANJOSE: 03/18/2025 13:27:00 EDT MsgRcvd: 03/18/2025 13:47 EDT Lab Test Result Reference Status Received Comments 03/18/2025 13:47 CBC-COMPLETE CBC + DIFF Final EDT BLOOD COUNT 5 of 12 Narrative Lab Test Result Reference Status Received Comments 11.0 x 10/UL 03/18/2025 13: (more content not included)... [facility] ED SUPER BILLon 03-18-2025 ED [facility] [place] [address] [place] [address] [id number] 03/18/2025 Patient: GRETA ANDRES Sex: Female : 1990 Age: 35y Facility Professional Category Item Description Code Code Quantity Fee Total Nurse/E/M EMERGENCY 797488 1 $0.00 $0.00 DEPT VISIT HIGH SEVERITYFUNCJ (87122-64) Nurse/IV/IM/Infusions Hydration 455764 3 $0.00 $0.00 additional hour (00977) Nurse/IV/IM/Infusions IVP additional 527849 2 $0.00 $0.00 push (59465) Nurse/IV/IM/Infusions IVP initial (48408) 942580 1 $0.00 $0.00 Nurse/IV/IM/Infusions IVP same med 646994 1 $0.00 $0.00 (31 min apart) (14584) Grand $0.00 Total Providers Noble Sarmiento D.O. 1 of 2 [facility] Chief Complaint FLANK PAIN. Principal Diagnosis Acute right upper quadrant and right lower quadrant abdominal pain of undetermined cause. ICD-10 Codes R10.11: Right upper quadrant pain R10.31: Right lower quadrant pain 2 of 2 [facility] ED VISIT SUMMARYon ED VISIT SUMMARY Visit Overview Visit Overview [place] [id number] [facility] [place] [address] [id number] 03/18/2025 Patient: GRETA ANDRES Sex: Female : 1990 Age: 35y 03/18/2025 04:23 PM EDT ED Arrival:12:53 03/18/2025 EDT Status:not Recent Travel:no Language:eng Adv Directive:Yes Isolation Status: Ethnicity:N Fall Risk:no risk Infectious Disease Exposure:no Measurements:5'5 / 165.1 Self-Harm Status:no risk Sepsis Screen:negative cm 190.0 lb / 86.2 kg Chief Complaint:RIGHT-SIDED FLANK PAIN, (daniella), and (right flank pain x5 days, nausea, vomiting. hx of stones and surgery on right kidney) ALLERGIES Adderall morphine HOME MEDICATIONS hydrochlorothiazide 25 mg tablet levothyroxine 200 mcg tablet levothyroxine 25 mcg tablet 1 of 4 Visit Overview magnesium 100 mg (as glycinate) capsule: TAKE 1 CAPSULE BY MOUTH TWICE DAILY prazosin 2 mg capsule promethazine 12.5 mg tablet propranolol 20 mg tablet quetiapine 50 mg tablet scopolamine 1 mg over 3 days transdermal patch sumatriptan 50 mg tablet tramadol 50 mg tablet Vraylar 1.5 mg capsule PAST MEDICAL HISTORY / PROBLEMS Asthma Gastroparesis See nurses notes thyroid cancer PAST SURGICAL HISTORY Cholecystectomy kidney stone Sinus Surgery Thyroidectomy SOCIAL HISTORY Smoking status: No Alcohol use: No Drug use: No ED COURSE MEDICATIONS GIVEN IN EMERGENCY DEPARTMENT 13:31 03/18/25 IV NS 0.9 % 1000 mL 500 mL/hr over 2 hour(s) 13:42 03/18/25 Zofran IVP 4 mg 13:43 03/18/25 HYDROmorphone (Dilaudid) IVP 0.5 mg 14:58 03/18/25 KetorOLAC (Toradol) IVP 15 mg 15:38 03/18/25 HYDROmorphone (Dilaudid) IVP 0.5 mg 2 of 4 Visit Overview IV SITE INFORMATION INTAKE OUTPUT REASSESMENT (most recent) 13:45 03/18/25. GENERAL / NEURO / PSYCH: Oriented X 4. RESPIRATORY: Respirations not labored. GI / : Abdomen soft and nontender. Bowel sounds within normal limits. ( RIGHT SIDE FLANK PAIN X5 DAYS, KNOWN HX OF KIDNEY STONES.). SKIN: Skin is warm and dry. VITAL SIGNS First Vitals Last Vitals Temp 13:00 03/18/25 98.1 F Temp 15:32 03/18/25 BP 13:00 03/18/25 155/104 BP 15:32 03/18/25 158/108 HR 13:00 03/18/25 74 HR 15:32 03/18/25 78 RR 13:00 03/18/25 16 RR 15:32 03/18/25 18 O2 Sat 13:00 03/18/25 99% O2 Sat 15:32 03/18/25 98% Pain 13:00 03/18/25 6 Pain 15:32 03/18/25 7 ETCO2 13:00 03/18/25 ETCO2 15:32 03/18/25 GCS 13:00 03/18/25 GCS 15:32 03/18/25 RTS 13:00 03/18/25 RTS 15:32 03/18/25 PROCEDURES NURSING INTERVENTIONS LABS / STUDIES LABS / STUDIES ORDERED CBC w Diff CMP CT KUB (Kidney stone) Lipase Urinalysis Urine - HCG CLINICAL IMPRESSION 3 of 4 Visit Overview ACUTE RIGHT UPPER QUADRANT AND RIGHT LOWER QUADRANT ABDOMINAL PAIN OF UNDETERMINED CAUSE 4 of 4 [facility] ED VITALS FLOW SHEETon 03-18 ED VITALS FLOW SHEET Vitals Vital Sign Flow Sheet [address] [address] [id number] 03/18/2025 Patient: GRETA ANDRES Sex: Female : 1990 Age: 35y Measurements Wt: 86.2 kg, Ht/Grzegorz: 65.0 in, BMI: 31.62 Measured Time BP MAP HR RR O2Sat ETCO2 Temp Pain GCS RTS 15:32 03/18/2025 158/108 125 78 18 98% 7 14:42 03/18/2025 136/72 93 78 16 98% 14:25 03/18/2025 5 13:46 03/18/2025 87 18 100% 7 13:00 03/18/2025 155/104 121 74 16 99% 98.1 F 6 1 of 1 [facility] LIPASEon 03-18-2025 Lipase [Catalytic activity/Vol] 45.0 U/L Normal 15.0 - 78.0 [facility] Comment on above: Result Comment: *PLE ASE NOTE THAT RANGES FOR LIPASE HAVE CHANGED OF 11/19/23 DUE TO AN ASSAY UPDATE BY THE AUTOMOBILE INSURANCE CLAIM EXAMINER.THE NEW ASSAY RANGE IS 6-250 U/L, WITH A REFERENCE RANGE OF 16-77 U/L. Performed By: #### 2 [id number] #### [facility],[address] [place] [address] URINEon 03-18-2025 Beta HCG ( test) Ql (U) Negative Normal NEGATIVE [facility] Comment on above: Performed By: #### 2 [id number] ####[facility],[address] [place] [address] EXTERNAL QC DONE? YES [facility] Comment on above: Result Comment: Very dilute urine specimens, as indicated by a low specific gravity, may not contain telephone service representative levels of hCG. If is still suspected, a first morning urine specimen should be collected 48 hours later and tested. Performed By: #### 2 69116 ####[place] [address] INTERNAL QC PASS [facility] Comment on above: Performed By: #### 2 13040 ####[place] [address] URINALYSISon 03-18-2025 Bilirubin Ql (U) Negative Normal NORMAL: NEGATIVE [facility] Comment on above: Performed By: #### 2 53641 ####[place] [address] Clarity (U) clear Normal NORMAL: CLEAR [facility] Comment on above: Performed By: #### 2 17053 ####[place] [id number] Color (U) yellow Normal NORMAL: YELLOW [facility] Comment on above: Performed By: #### 2 53508 ####[facility],[address] [place], [place] [id number] Glucose Ql (U) NORM Normal NORMAL: NORMAL [facility] Comment on above: Performed By: #### 2 59754 ####[place] [address] Hemoglobin Ql (U) Negative Normal NORMAL: NEGATIVE [facility] Comment on above: Performed By: #### 2 30377 ####[facility],[address] [place] [address] Ketone Negative Normal NORMAL: NEGATIVE [facility] Comment on above: Performed By: #### 2 12230 ####[facility],[address] [place] [address]227 Leukocytes Negative Normal NORMAL: NEGATIVE [facility] Comment on above: Performed By: #### 2 35944 ####[facility],[address] [place] [address] 11149 Nitrite Ql (U) Negative Normal NORMAL: NEGATIVE [facility] Comment on above: Performed By: #### 2 81043 ####[facility],[address] [place] [address] 97926 pH (U) 6.5 [pH] Normal NORMAL: 5.0-8.0 [facility] Comment on above: Performed By: #### 2 60140 ####[facility],[address] [place] [address]703 Protein Ql (U) 15 Abnormal NORMAL: NEGATIVE [facility] Comment on above: Performed By: #### 2 63426 ####[facility],[address] [place] [address] Sp [place] 1.015 Normal NORMAL: 1.010-1.030 [facility] Comment on above: Performed By: #### 2 62286 ####[facility],[address] [place] [address] Specimen Type R [facility] Comment on above: Performed By: #### 2 25208 ####[facility],[address] [place] [address]34 Urinalysis dipstick W Reflex Microscopic panel (U) NOT INDICATED [facility] Comment on above: Performed By: #### 2 94464 ####[facility],[address] [place] [address]334 Urobilinog NORM Normal NORMAL: NORMAL [facility] Comment on above: Performed By: #### 2 82963 ####[facility],[address] [place] [address] CNOVon 03-02-2025 CNOV Office Visit (PNMDNA ) MCKENNAGRETA LUO ([id number]) 1990 F Date Time Provider Department 03/02/25 9:00 AM CARLIE BROWNLEE PNMDNA During your visit today, we recorded the following information about you: Pulse Weight 87/minute 86.9 kg Carlie Brownlee, UNLOADER OPERATOR.STATISTICAL FINANCIAL ANALYST 03/02/2025 9:34 AM Signed Subjective Greta Andres presents to [facility] for a follow up appointment. Since the last visit, Greta Andres states the pain has been worsening. Current pain intensity is 6 on a scale of 0-10. Pain located in the Right SI Pain described as aching and burning. Symptoms interfere with physical activity, walking, and lifting. Pain is exacerbated by prolong sitting and standing. Pain is mitigated by heat and medication. The medications are partially effective. The patient states the last dose of tramadol was taken yesterday before bed. Patient Entered Questionnaires PROMIS Score Percentiles 06/14/2024 09/18/2024 12/14/2024 PROMIS Global Health Scale Physical Health Percentile 15 15 15 Mental Health Percentile 63 63 63 53 Patient-reported Multiple values from one day are sorted in reverse-chronological order 09/18/2024 12/14/2024 03/02/2025 Physical Health Physical Function Percentile 24* 16* 12 Pain Interference Percentile 12 8 4 Percentiles provide an indication of how the patient's score ranks in relation to the general population. Higher percentile rankings indicate better function/quality of life. 50th percentile is the average of the general population and indicates half of respondents had a worse score. > 31st percentile is within normal limits or better * < 31st percentile is at least ? SD worse than population, which may be clinically relevant < 16th percentile is at least 1 SD worse than population and warrants attention Review of Systems Constitutional: (-) Weight Gain (-) Weight Loss (-) Fatigue Cardiovascular: (-) hx heart surgery (-) Pacemaker Respiratory: (-) Shortness of Breath (-) Cough (-) Snoring Gastrointestinal: (-) Incontinence (-) Diarrhea (-) Constipation (+) Nausea/Vomiting Endocrine: (+) Thyroid Disorder (-) Diabetes Hematologic: (-) Prolonged Bleeding (-) Easy Bruising Genitourinary: (-) Incontinence (-) Frequency (-) Urinary Urgency Skin: (-) Open sores/wound Neurologic: (-) Headache (-) Double Vision Psychiatric: (-) Depression (-) Anxiety (-) Personal History of Alcohol or Substance Abuse (+) Family History of Alcohol or Substance Abuse Chief Complaint Patient presents with: Refill Request Pain Physical Examination Pulse 87 Wt 191 lb 9.3 oz (86.9kg) SpO2 97% LMP 08/18/2024 General:well appearing and alert Skin: Skin color, texture, turgor normal, no rashes or lesions HEENT: normal Cardiovascular: Regular, rate and rhythm Lungs: Normal respiratory rate and rhythm, unlabored on room air Musculoskeletal: Back: Straight leg raising test: Right - Positive at In the sitting position, Left - Positive at In the sitting position, Tenderness over the bilateral SI Joints - Positive Gaenslen's Test on the Bilateral. , Positive Juan R's Test on the Bilateral. Extremities: Extremities normal. No deformities, edema, or skin discoloration Neurological: Mental Status: alert Motor Strength: Motor strength and tone are 5/5 all throughout. Sensory: Not Examined Gait: Normal. Trigger points: gluteal muscles and sacroiliac area. Assessment Assessment : Encounter Diagnosis ICD-10-CM 1. SI (sacroiliac) joint dysfunction M53.3 traMADol (ULTRAM) 50 mg tablet NRV DESTR RFA, CHEM OTHER Patient presents for follow-up visit and medication refill Patient's last right SI ablation was 06-13-2024 with 90% improvement. She would like to repeat the procedure She has chronic bilateral SI pain that radiates into the buttocks and down the posterior thigh to the mid level Her last left SI RFA was October 2024 with 70% improvement. She reports she still doing well She takes tramadol to help manage her chronic pain She reports she starts physical therapy today Will need to complete PT for lumbar MRI approval 03/02/2025 PROMIS CAT Pain Interference PROMIS Pain Interference T-Score (range: 10 - 90) 67 (moderate) PROMIS Pain Interference Percentile 4 Descriptive Summary for PROMIS Physical Function T-score = 38 (Percentile 12) Much difficulty - Do 2 hours of physical labor. Some difficulty - Walk more than a mile (1.6 km). OARRS Report: Reviewed: The patient's OARRS report was reviewed and is consistent with the reported medication use. Plan Injection history was reviewed. Medication use and compliance were reviewed. 1. Continue medication management through the [facility] 2. The following approved medication requests have been transmitted (more content not included)... [facility] [place] 03-02-2025 CNPN Telephone (PNMDNA) GRETA ANDRES ([id number]) 1990 F Date Time Provider Department 03/02/25 CARLIE BROWNLEE PNNA During your visit today, we recorded the following information about you: Lisa Edmond 03/02/2025 9:51 AM Signed Pharmacist called with the following questions regarding RX for traMADol (ULTRAM) 50 mg tablet: Current prescription reads 1-2 pills/day, which would be a max of 23 days per fill. Would Carlie like to specify an explicit time frame to hold patient to? (i.e. 30 days?) Start date on RX is currently 03/08, but Patient is 24 days past last fill. Does Carlie want Patient to wait until 03/08 or adjust start date for current RX? Please advise jhoan call [facility] at [phone] with recommendations. Carlie Powell APRN.STATISTICAL FINANCIAL ANALYST 03/02/2025 10:02 AM Signed Resent the rx Allergies As of Date: 03/02/2025 Noted Allergy Reaction ADHESIVE 02/12/2010 2 - Rash MORPHINE SULFATE 11/12/2008 9 - Itching Comments: had vicodin at same time, but has taken vicodin in past without reaction ADDERALL (DEXTROAMPHETAMINE-AMPHE* 5 - Intolerance Comments: Heart racing, chest pain, diaphoretic, dizzy Date Reviewed: 01/05/2025 Reviewed by: Tomas Alexis APRN.STATISTICAL FINANCIAL ANALYST - Fully Assessed Reason for Visit: Medication Problem [65] Cmt: traMADol (ULTRAM) 50 mg tablet Visit Diagnosis:SI (sacroiliac) joint dysfunction [M53.3] Prescriptions as of 03/02/2025 - traMADol (ULTRAM) 50 mg tablet Take 1-2 pills by mouth once a day for 30 days for pain, prn Patient should start on March 08, 2025. - SUMAtriptan (IMITREX) 50 mg tablet Take 1 tablet (50 mg) by mouth as needed for migraine headache (see administration instructions). May repeat dose after 2 hours if needed. Maximum daily dose is 200 mg per day. - magnesium glycinate 100 mg magnesium capsule Take 2 capsules by mouth two times a day. - Ixplg-8-JSN-EPA-Fish Oil (FISH OIL) 1,000 (120-180) mg cap Take 2 capsules by mouth two times a day. - riboflavin, vitamin B2, 400 mg tab Take 1 tablet by mouth once daily. - hydroCHLOROthiazide 25 mg tablet Take 1 tablet by mouth once daily. - propranolol (INDERAL) 20 mg tablet Take 1 tablet by mouth once daily. - QUEtiapine (SEROQUEL) 50 mg tablet Take 1 tablet by mouth daily at bedtime. Per Psych: [facility] - caripraz[facility] (VRAYLAR) 1.5 mg capsule Take 1 capsule by mouth once daily. Per Psych: [facility] - Cholecalciferol, Vitamin D3, 50 mcg (2,000 unit) cap Take 1 capsule by mouth once daily. - cyclobenzaprine (FLEXERIL) 5 mg tablet Take by mouth twice daily as needed. - albuterol HFA (VENTOLIN HFA) 90 mcg/actuation inhaler Inhale 2 Puffs as instructed every 6 hours as needed for wheezing/shortness of breath. - levothyroxine (SYNTHROID) 25 mcg tablet Take 1 tablet by mouth daily before breakfast. Take 225 mcg total of synthroid daily (so add this 25mcg tab to your daily 200mcg tab) - levothyroxine (SYNTHROID) 200 mcg tablet Take 1 tablet by mouth once daily. - etonogestrel (NEXPLANON) subdermal implant 68 mg 68 mg by SUBDERMAL route one time only. Problem List As Of Date 03/02/2025 Noted Resolved Irregular menstrual cycle [N92.6] 04/11/2007 Backache, unspecified [M54.9] 06/19/2008 07/27/2019 Other joint derangement, not elsewhere classifi*08/20/2008 04/25/2024 Other acquired deformity of toe [M20.5X9] 05/20/2009 07/27/2019 Lactose intolerance [E73.9] 03/31/2012 Anxiety, generalized [F41.1] 03/31/2012 Congenital heart defect [Q24.9] 03/31/2012 Lumbago [M54.50] 07/27/2012 Lumbar degenerative disc disease [M51.369] 07/27/2012 Back pain [M54.9] 08/07/2013 04/25/2024 Exercise-induced asthma [J45.990] 03/22/2014 Vitamin D deficiency [E55.9] 03/22/2014 Fibromyalgia [M79.7] 05/07/2014 07/27/2019 Routine gynecological examination [Z01.419] 08/10/2014 07/27/2019 Screening for diabetes mellitus (DM) [Z13.1] 08/10/2014 07/27/2019 Need for lipid screening [Z13.220] 08/10/2014 07/27/2019 Esophageal reflux [K21.9] 02/21/2015 07/27/2019 Chronic fatigue disorder [G93.32] 03/19/2015 Attention and concentration deficit [R41.840] 03/19/2015 07/27/2019 SI (sacroiliac) joint dysfunction [M53.3] 11/06/2015 Migraine without aura and without status migrai*05/20/2017 Well adult exam [Z00.00] 10/19/2017 Bipolar 1 disorder (HCC) [F31.9] 02/14/2018 PTSD (post-traumatic stress disorder) [F43.10] 02/14/2018 Primary thyroid papillary carcinoma (HCC) [C73] 07/21/2019 S/P total thyroidectomy [Z98.890, Z90.89] 07/31/2019 Post-surgical hypothyroidism [E89.0] 08/25/2019 Hypertension, essential [I10] 07/06/2022 Vomiting, persistent, in adult [R11.15] 03/03/2023 Obesity, Class I, BMI 30-34.9 [E66.811] 03/03/2023 Encounter for screening for diabetes mellitus [*03/03/2023 Gastroparesis [K31.84] 03/25/2024 Lumbar spinal stenosis [M48.061] 04/25/2024 Renal stones [N20.0 (more content not included)... [facility] GRETA ANDRES ([id number]) 1990 F Date Time Provider Department 02/19/25 FLACO CONTRERAS PNRACH During your visit today, we recorded the following information about you: Mahesh Quispe, RN 02/19/2025 3:22 PM Signed Patient left message on nurse 02/19/25 at 11:37 asking if she should postpone her appointment with Dr. Contreras on 02/26/25 until after she completes physical therapy. Please call patient at [phone]. Naomi Godwin, RN 02/19/2025 3:30 PM Signed Advised patient via telephone that her upcoming appointment with Dr. Contreras does not need to be postponed, as this appointment is for a new problem (cervical/thoracic rather than lumbar). Patient verbalized understanding and voiced no additional questions/concerns. Patient to see Dr. Contreras as scheduled. Allergies As of Date: 02/19/2025 Noted Allergy Reaction ADHESIVE 02/12/2010 2 - Rash MORPHINE SULFATE 11/12/2008 9 - Itching Comments: had vicodin at same time, but has taken vicodin in past without reaction ADDERALL (DEXTROAMPHETAMINE-AMPHE* 5 - Intolerance Comments: Heart racing, chest pain, diaphoretic, dizzy Date Reviewed: 01/05/2025 Reviewed by: Tomas Alexis APRN.STATISTICAL FINANCIAL ANALYST - Fully Assessed Reason for Visit: Patient Question [1015] Prescriptions as of 02/19/2025 - SUMAtriptan (IMITREX) 50 mg tablet Take 1 tablet (50 mg) by mouth as needed for migraine headache (see administration instructions). May repeat dose after 2 hours if needed. Maximum daily dose is 200 mg per day. - traMADol (ULTRAM) 50 mg tablet Take 1-2 pills by mouth once a day for pain, prn - magnesium glycinate 100 mg magnesium capsule Take 2 capsules by mouth two times a day. - Hmojr-9-YEP-EPA-Fish Oil (FISH OIL) 1,000 (120-180) mg cap Take 2 capsules by mouth two times a day. - riboflavin, vitamin B2, 400 mg tab Take 1 tablet by mouth once daily. - hydroCHLOROthiazide 25 mg tablet Take 1 tablet by mouth once daily. - propranolol (INDERAL) 20 mg tablet Take 1 tablet by mouth once daily. - QUEtiapine (SEROQUEL) 50 mg tablet Take 1 tablet by mouth daily at bedtime. [facility] Psych: [facility] car[facility] (VRAYLAR) 1.5 mg capsule Take 1 capsule by mouth once daily. Per Psych: [facility] - Cholecalciferol, Vitamin D3, 50 mcg (2,000 unit) cap Take 1 capsule by mouth once daily. - cyclobenzaprine (FLEXERIL) 5 mg tablet Take by mouth twice daily as needed. - albuterol HFA (VENTOLIN HFA) 90 mcg/actuation inhaler Inhale 2 Puffs as instructed every 6 hours as needed for wheezing/shortness of breath. - levothyroxine (SYNTHROID) 25 mcg tablet Take 1 tablet by mouth daily before breakfast. Take 225 mcg total of synthroid daily (so add this 25mcg tab to your daily 200mcg tab) - levothyroxine (SYNTHROID) 200 mcg tablet Take 1 tablet by mouth once daily. - etonogestrel (NEXPLANON) subdermal implant 68 mg 68 mg by SUBDERMAL route one time only. Problem List As Of Date 02/19/2025 Noted Resolved Irregular menstrual cycle [N92.6] 04/11/2007 Backache, unspecified [M54.9] 06/19/2008 07/27/2019 Other joint derangement, not elsewhere classifi*08/20/2008 04/25/2024 Other acquired deformity of toe [M20.5X9] 05/20/2009 07/27/2019 Lactose intolerance [E73.9] 03/31/2012 Anxiety, generalized [F41.1] 03/31/2012 Congenital heart defect [Q24.9] 03/31/2012 Lumbago [M54.50] 07/27/2012 Lumbar degenerative disc disease [M51.369] 07/27/2012 Back pain [M54.9] 08/07/2013 04/25/2024 Exercise-induced asthma [J45.990] 03/22/2014 Vitamin D deficiency [E55.9] 03/22/2014 Fibromyalgia [M79.7] 05/07/2014 07/27/2019 Routine gynecological examination [Z01.419] 08/10/2014 07/27/2019 Screening for diabetes mellitus (DM) [Z13.1] 08/10/2014 07/27/2019 Need for lipid screening [Z13.220] 08/10/2014 07/27/2019 Esophageal reflux [K21.9] 02/21/2015 07/27/2019 Chronic fatigue disorder [G93.32] 03/19/2015 Attention and concentration deficit [R41.840] 03/19/2015 07/27/2019 SI (sacroiliac) joint dysfunction [M53.3] 11/06/2015 Migraine without aura and without status migrai*05/20/2017 Well adult exam [Z00.00] 10/19/2017 Bipolar 1 disorder (HCC) [F31.9] 02/14/2018 PTSD (post-traumatic stress disorder) [F43.10] 02/14/2018 Primary thyroid papillary carcinoma (HCC) [C73] 07/21/2019 S/P total thyroidectomy [E89.0] 07/31/2019 Post-surgical hypothyroidism [E89.0] 08/25/2019 Hypertension, essential [I10] 07/06/2022 Vomiting, persistent, in adult [R11.15] 03/03/2023 Obesity, Class I, BMI 30-34.9 [E66.811] 03/03/2023 Encounter for screening for diabetes mellitus [*03/03/2023 Gastroparesis [K31.84] 03/25/2024 Lumbar spinal stenosis [M48.061] 04/25/2024 Renal stones [N20.0] 04/25/2024 Encounter for gynecological examination [Z01.41*04/25/2024 Dermatofibroma [D23.9] 06/20/2024 Encounter Status:Closed by NAOMI GODWIN on 02/19/25 Normal [facility] Gastric Emptying Studyon Gastric Emptying Study [facility] [address] [id number] Gastric Emptying Study MR#: [id number] Acct: [id number] Name: GRETA ANDRES Rep #: [id number] : 1990 F 34 From: Loan Aguirre nd, MD PCP: Dr. Nagi Red MD Status: REG CLI Study: Gastric Emptying Study Date of Exam: 02/12/25 Exam# [id number] Ordering Dr: Taylor Samuel PROCEDURE: GASTRIC EMPTYING STUDY 02/12/2025 REASON FOR EXAM: 34-year-old female, NAUSEA AND VOMITING TECHNIQUE: Nuclear medicine GI bleed study performed with dynamic imaging obtained after intravenous injection of technetium-99m labeled autologous red blood cells. Delayed imaging out to 60 minutes. RADIOPHARMACEUTICAL: 1.1 mCi of sulfur colloid in oatmeal COMPARISON: Gastric emptying study 01/30/2023. FINDINGS: There is prompt visualization of the stomach. There is no gastroesophageal reflux. The T/raw data emptying remains above 50% emptying at the time of study termination. NM/Gastric Emptying Study IMPRESSION: Delayed gastric emptying. Unable to quantify due to timing of study termination. Reading Location: [id number] CC: Dr. Nagi Red MD; JERI Marquez Advertising Copywriter: [facility] Tele[facility] (PNMDNA) GRETA ANDRES ([id number]) 1990 F Date Time Provider Department 02/08/25 FLACO CONTRERAS During your visit today, we recorded the following information about you: Naomi Godwin RN 02/08/2025 3:04 PM Signed Procedure: Lumbar MRI Procedure Date: 02/13/2025 Auth Status: DENIED Denial Rationale: Your doctors request for a(n) Lumbar Spine MRI (Magnetic Resonance Imaging pictures of inside your lower spine) cannot be approved. We made this decision based on [employer] Clinical Guideline 044 for Lumbar Spine MRI. Information Relied Upon Based on what was given, you have pain in your back, your doctors request cannot be approved. A person might need a(n) Lumbar Spine MRI if these notes have been given notes from your doctor that show you tried back exercises (such as formal physical therapy, a medically directed home exercise program, or chiropractic treatments) for six weeks and did not get better. The dates need to show this was done in the last six months. (Documentation that shows participation may include the following: a discharge summary, notes stating the total number of visits with dates, or full details of the home exercise plan and days performed). The information we got did not include these notes. DONA: 12/14/2024 w/Carlie Brownlee CNP PLAN: The following approved medication requests have been transmitted electronically: Ultram Follow up in the office in 3 months Lumbar MRI order placed 05/16/2024. PT: Not completed Edxactt message sent. PT order pended for provider review. Routing to provider. Naomi Godwin RN 02/08/2025 3:08 PM Signed Addended by: NAOMI GODWIN on: 02/08/2025 03:08 PM Modules accepted: Orders Flaco Contreras MD 02/12/2025 10:05 AM Signed Addended by: FLACO CONTRERAS on: 02/12/2025 10:05 AM Modules accepted: Orders Allergies As of Date: 02/08/2025 Noted Allergy Reaction ADHESIVE 02/12/2010 2 - Rash MORPHINE SULFATE 11/12/2008 9 - Itching Comments: had vicodin at same time, but has taken vicodin in past without reaction ADDERALL (DEXTROAMPHETAMINE-AMPHE* 5 - Intolerance Comments: Heart racing, chest pain, diaphoretic, dizzy Date Reviewed: 01/05/2025 Reviewed by: Tomas Alexis APRN.STATISTICAL FINANCIAL ANALYST - Fully Assessed Reason for Visit: Insurance Authorization [[id number]] Cmt: Lumbar MRI Denial Primary Visit Diagnosis:Radiculopathy, lumbar region [M54.16] Other Visit Diagnosis:Degeneration of intervertebral disc of lumbar region with discogenic back pain [M51.360] Order(s):CONSULT TO PHYSICAL THERAPY [9032] Order #: [id number]: 1 FUTURE Prescriptions as of 02/12/2025 - SUMAtriptan (IMITREX) 50 mg tablet Take 1 tablet (50 mg) by mouth as needed for migraine headache (see administration instructions). May repeat dose after 2 hours if needed. Maximum daily dose is 200 mg per day. - traMADol (ULTRAM) 50 mg tablet Take 1-2 pills by mouth once a day for pain, prn - magnesium glycinate 100 mg magnesium capsule Take 2 capsules by mouth two times a day. - Eqqus-2-HAP-EPA-Fish Oil (FISH OIL) 1,000 (120-180) mg cap Take 2 capsules by mouth two times a day. - riboflavin, vitamin B2, 400 mg tab Take 1 tablet by mouth once daily. - hydroCHLOROthiazide 25 mg tablet Take 1 tablet by mouth once daily. - propranolol (INDERAL) 20 mg tablet Take 1 tablet by mouth once daily. - QUEtiapine (SEROQUEL) 50 mg tablet Take 1 tablet by mouth daily at bedtime. Per Psych: [facility] - cariprazine (VRAYLAR) 1.5 mg capsule Take 1 capsule by mouth once daily. Per Psych: [facility] - Cholecalciferol, Vitamin D3, 50 mcg (2,000 unit) cap Take 1 capsule by mouth once daily. - cyclobenzaprine (FLEXERIL) 5 mg tablet Take by mouth twice daily as needed. - albuterol HFA (VENTOLIN HFA) 90 mcg/actuation inhaler Inhale 2 Puffs as instructed every 6 hours as needed for wheezing/shortness of breath. - levothyroxine (SYNTHROID) 25 mcg tablet Take 1 tablet by mouth daily before breakfast. Take 225 mcg total of synthroid daily (so add this 25mcg tab to your daily 200mcg tab) - levothyroxine (SYNTHROID) 200 mcg tablet Take 1 tablet by mouth once daily. - etonogestrel (NEXPLANON) subdermal implant 68 mg 68 mg by SUBDERMAL route one time only. Problem List As Of Date 02/08/2025 Noted Resolved Irregular menstrual cycle [N92.6] 04/11/2007 Backache, unspecified [M54.9] 06/19/2008 07/27/2019 Other joint derangement, not elsewhere classifi*08/20/2008 04/25/2024 Other acquired deformity of toe [M20.5X9] 05/20/2009 07/27/2019 Lactose intolerance [E73.9] 03/31/2012 Anxiety, generalized [F41.1] 03/31/2012 Congenital heart defect [Q24.9] 03/31/2012 Lumbago [M54.50] 07/27/2012 Lumbar degenerative disc disease [M51.369] 07/27/2012 Back pain [M54.9] 08/07/2013 04/25/2024 Exercise-induced asthma [J45.990] 03/22/2014 Vitamin D deficiency [E55.9] 03/22/2014 Fibromyalgia (more content not included)... Normal [facility] Ova and Parasites 8623on OP OVA AND PARASITES EX AM, ROUTINE These results were obtained using wet preparation(s) and trichrome stained smear. This test does not include testing for Crytosporidium parvum, Cyclospora, or Microsporidia. One negative specimen does not rule out the possibility of a parasitic infection. _ TESTING PERFORMED AT [facility]. ORIGINAL REPORT ON FILE IN LAB CONTAINS ADDITIONAL TEST SITE INFORMATION. _ Ova/Parasite Exam NO OVA, CYSTS, OR PARASITES FOUND. Normal [facility] Comment on above: Performed By: #### L 501.2450, L146.2116 #### [facility] [address] [place], [address] Calprotectin, Stoolon [address] 25 ug/g Normal 0-120 [facility] Comment on above: Result Comment: Conc entration Interpretation Follow-Up < 5 - 50 ug/g Normal None >50 -120 ug/g Borderline Re-evaluate in 4-6 weeks >120 ug/g Abnormal Repeat as clinically indicated Performed at: [address] [id number] [employer]: Laura John MD, Phone: [phone] Performed By: #### L 501.1611, L045.2309 #### [facility] [address] [place], [address] Giardia Lamblia, Stool EIAon 02-03-2025 Giardia Stool Negative Normal Negative [facility] Comment on above: Result Comment: Perf ormed at: [address] [id number] [employer]: Rony Esquivel PhD, Phone: [phone] Performed By: #### L 501.7910, V864.3504 #### [facility] [address] [place], [address] CDIFF (PCR)on 03-14-2025 CDIFF Reference Range: Neg ative Cepheid GeneXpert: polymerase chain reaction (PCR) 027 027 NAP1-B1 Presumptive Negative *for epidemiolologic???use C. Diff PCR Negative- No toxigenic C. Diff Detected Normal [facility] Comment on above: Performed By: #### L 501.2450, L700.6800 #### [facility] [address] [place], [address] ENTERIC PATHOGEN PANEL STOOL on 02-02-2025 EP PANEL Normal Reference Ran ge = Not Detected Nucleic acid amplification test method Not detected for Campylobacter group, Salmonella species, Shigella species, Vibrio Group, Yersinia enterocolitica, EHEC (Shiga Toxin 1, Shiga Toxin 2), Norovirus Gl/Gll, and Rotavirus A. Other common stool pathogens are not detected on this panel include: Aeromonas/Plesiomonas or parasites. Order testing for these organisms separately if suspected. This is an amplified DNA test which makes it both specific and sensitive. CAMPYLOBACTER Not Detected Norovirus Not Detected Rotavirus Not Detected Salmonella Not Detected Shiga Toxin Not Detected Shigella sp. Not Detected VIBRIO Not Detected Yersinia Not Detected Normal [facility] Comment on above: Performed By: #### L 501.2450, L700.6800 #### [facility] [address] [place], [address] Stool Lactoferrin/WBCon -1 WBCST Normal Reference Ran ge = Negative Fecal WBC Lactoferrin Negative: No Fecal WBC Lactoferrin present Normal [facility] Comment on above: Performed By: #### L 501.2450, L700.6800 #### [facility] [address] [place], [address] CBC W/Diff, Automatedon 03-0 Absolute Lymph 3.47 X10 3/uL Normal 0.83-4.51 [facility] Comment on above: Performed By: #### L 500.4050, L501.6710, L100.0100, L101.9900 #### [facility] [address] [place], [address] Absolute Neut 7.5 X10 3/uL Normal 2.0-7.7 [facility] Comment on above: Performed By: #### L 500.4050, L501.6710, L100.0100, L101.9900 #### [facility] [address] [place], [address] Basophils/100 WBC (Bld) 0.3 % Normal 0-1 [facility] Comment on above: Performed By: #### L 500.4050, L501.6710, L100.0100, L101.9900 #### [facility] [address] [place], [address] Eosinophils/100 WBC (Bld) 3.3 % Normal 0-5 [facility] Comment on above: Performed By: #### L 500.4050, L501.6710, L100.0100, L101.9900 #### [facility] [address] [place], [address] Erythrocyte distribution width (RBC) [Ratio] 13.3 % Normal 11.6-14.6 [facility] Comment on above: Performed By: #### L 500.4050, L501.6710, L100.0100, L101.9900 #### [facility] [address] [place], [address] Hematocrit (Bld) [Volume fraction] 39.1 % Normal 37-47 [facility] Comment on above: Performed By: #### L 500.4050, L501.6710, L100.0100, L101.9900 #### [facility] [address] [place], [address] Hemoglobin (Bld) [Mass/Vol] 13.8 g/dL Normal 12.0-15.0 [facility] Comment on above: Performed By: #### L 500.4050, L501.6710, L100.0100, L101.9900 #### [facility] [address] [place], [address] IG% 1.000 High 0.0-0.9 [facility] Comment on above: Result Comment: IG% - Immature Granulocytes (promyelocytes, myelocytes and metamyelocytes) > 1% indicates that a LEFT SHIFT is Present. Performed By: #### L 500.4050, L501.6710, L100.0100, L101.9900 #### [facility] [address] [place], [address] Lymphocytes/100 WBC (Bld) 28.2 % Normal 19-41 [facility] Comment on above: Performed By: #### L 500.4050, L501.6710, L100.0100, L101.9900 #### [facility] [address] [place], [address] MCH (RBC) [Entitic mass] 28.0 pg Normal 27.0-32.0 [facility] Comment on above: Performed By: #### L 500.4050, L501.6710, L100.0100, L101.9900 #### [facility] [address] [place], [address] MCHC (RBC) [Mass/Vol] 35.3 g/dL Normal 32-36 [facility] Comment on above: Performed By: #### L 500.4050, L501.6710, L100.0100, L101.9900 #### [facility] [address] [place], [address] MCV (RBC) [Entitic vol] 79.5 fL Low 81-99 [facility] Comment on above: Performed By: #### L 500.4050, L501.6710, L100.0100, L101.9900 #### [facility] [address] [place], [address] Monocytes/100 WBC (Bld) 6.5 % Normal 0-10 [facility] Comment on above: Performed By: #### L 500.4050, L501.6710, L100.0100, L101.9900 #### [facility] [address] [place], [address] Neutrophils/100 WBC (Bld) 60.7 % Normal 47-70 [facility] Comment on above: Performed By: #### L 500.4050, L501.6710, L100.0100, L101.9900 #### [facility] [address] [place], [address] Nucleated RBC (Bld) [#/Vol] 0 10*3/uL Normal 0-5 [facility] Comment on above: Performed By: #### L 500.4050, L501.6710, L100.0100, L101.9900 #### [facility] [address] [place], [address] Platelet mean volume (Bld) [Entitic vol] 10.2 fL Normal 6.2-12.0 [facility] Comment on above: Performed By: #### L 500.4050, L501.6710, L100.0100, L101.9900 #### [facility] [address] [place], [address] Platelets (Bld) [#/Vol] 300 10*3/uL Normal 150-450 [facility] Comment on above: Performed By: #### L 500.4050, L501.6710, L100.0100, L101.9900 #### [facility] [address] [place], [address] RBC (Bld) [#/Vol] 4.92 10*6/uL Normal 4.2-5.4 [facility] Comment on above: Performed By: #### L 500.4050, L501.6710, L100.0100, L101.9900 #### [facility] [address] [place], [address] RDW SD 38.3 fl Normal 35.1-43.9 [facility] Comment on above: Performed By: #### L 500.4050, L501.6710, L100.0100, L101.9900 #### [facility] [address] [place], [address] WBC (Bld) [#/Vol] 12.3 10*3/uL High 4.4-11.0 [facility] Comment on above: Performed By: #### L 500.4050, L501.6710, L100.0100, L101.9900 #### [facility] [address] [place], [address] CRPon 01-26-2025 C-REACTIVE PROT 10.40 mg/L High 0.0-3.0 [facility] Comment on above: Performed By: #### L 500.4050, L501.6710, L100.0100, L101.9900 #### [facility] [address] [place], [address] Comprehensive Metabolic Prof ilon 01-26-2025 Albumin [Mass/Vol] 4.0 g/dL Normal 3.5-5.0 [facility] Comment on above: Performed By: #### L 500.4050, L501.6710, L100.0100, L101.9900 #### [facility] [address] [place], [address] Albumin/Globulin [Mass ratio] 1.3 {ratio} Normal 0.9-2.4 [facility] Comment on above: Performed By: #### L 500.4050, L501.6710, L100.0100, L101.9900 #### [facility] [address] [place], [address] ALK PHOS 79 U/L Normal 35-104 [facility] Comment on above: Performed By: #### L 500.4050, L501.6710, L100.0100, L101.9900 #### [facility] [address] [place], [address] ALT [Catalytic activity/Vol] 19 U/L Normal <=34 [facility] Comment on above: Performed By: #### L 500.4050, L501.6710, L100.0100, L101.9900 #### [facility] [address] [place], [address] AST [Catalytic activity/Vol] 21 U/L Normal <=31 [facility] Comment on above: Performed By: #### L 500.4050, L501.6710, L100.0100, L101.9900 #### [facility] [address] [place], [address] Bilirubin [Mass/Vol] 0.26 mg/dL Normal 0.00-1.30 [facility] Comment on above: Performed By: #### L 500.4050, L501.6710, L100.0100, L101.9900 #### [facility] [address] [place], [address] BUN/CRE 9.9 RATIO Low 10-20 [facility] [facility] Comment on above: Performed By: #### L 500.4050, L501.6710, L100.0100, L101.9900 #### [facility] [address] [place], [address] Calcium [Mass/Vol] 9.4 mg/dL Normal 7.6-11.0 [facility] Comment on above: Performed By: #### L 500.4050, L501.6710, L100.0100, L101.9900 #### [facility] [address] [place], [address] Chloride [Moles/Vol] 106 mmol/L Normal 98-108 [facility] Comment on above: Performed By: #### L 500.4050, L501.6710, L100.0100, L101.9900 #### [facility] [address] [place], [address] CO2 [Moles/Vol] 20.8 mmol/L Low 21.0-32.0 [facility] Comment on above: Performed By: #### L 500.4050, L501.6710, L100.0100, L101.9900 #### [facility] [address] [place], [address] Creatinine [Mass/Vol] 0.80 mg/dL Normal 0.70-1.20 [facility] Comment on above: Performed By: #### L 500.4050, L501.6710, L100.0100, L101.9900 #### [facility] [address] [place], [address] GAP 12 Normal 5-15 [facility] Comment on above: Performed By: #### L 500.4050, L501.6710, L100.0100, L101.9900 #### [facility] [address] [place], [address] GFR/1.73 sq M.predicted among non-blacks MDRD (S/P/Bld) [Vol rate/Area] 100 mL/min/{1.73_m2} Normal >60 [facility] Comment on above: Result Comment: mL/m in/1.73m2 CKD-EPI Creatinine Equation (2020) Performed By: #### L 500.4050, L501.6710, L100.0100, L101.9900 #### [facility] [address] [place], [address] Globulin (S) [Mass/Vol] 3.0 g/dL Normal 2.2-4.2 [facility] Comment on above: Performed By: #### L 500.4050, L501.6710, L100.0100, L101.9900 #### [facility] [address] [place], [address] Glucose [Mass/Vol] 78 mg/dL Normal 70-99 [facility] Comment on above: Performed By: #### L 500.4050, L501.6710, L100.0100, L101.9900 #### [facility] [address] [place], [address] Potassium [Moles/Vol] 3.9 mmol/L Normal 3.3-5.1 [facility] Comment on above: Performed By: #### L 500.4050, L501.6710, L100.0100, L101.9900 #### [facility] [address] [place], [address] Sodium [Moles/Vol] 138 mmol/L Normal 133-145 [facility] Comment on above: Performed By: #### L 500.4050, L501.6710, L100.0100, L101.9900 #### [facility] [address] [place], [address] T PROT 7.1 g/dL Normal 5.9-8.4 [facility] Comment on above: Performed By: #### L 500.4050, L501.6710, L100.0100, L101.9900 #### [facility] [address] [place], [address] Urea nitrogen [Mass/Vol] 8 mg/dL Normal 4-19 [facility] Comment on above: Performed By: #### L 500.4050, L501.6710, L100.0100, L101.9900 #### [facility] [address] [place], [address] Erythrocyte Sed Rateon 01-26 SED RATE 7 mm/hr Normal 0-30 [facility] Comment on above: Performed By: #### L 500.4050, L501.6710, L100.0100, L101.9900 #### [facility] [address] [place], [address] Gastroenterology Visit Repor ton 01-19-2025 Gastroenterology Visit Report [facility] [address] [place] [address] OFFICE VISIT Date of Service: 01/19/25 MR#: [id number] Acct: [id number] Name: GRETA ANDRES Rep #: [id number] : 1990 Provider: JEIR Marquez Age/Sex: 34/F Location: [facility] [place] Status: Signed Intake Vital Signs 10/21/24 10:40 01/19/25 08:39 Height 5 ft 5 in BP 132/83 H Position Sitting Pulse 79 Temp 98.5 F Temp Source Oral Pulse Oximetry (%) 95 Intake Visit Reasons: Gastroparesis Chief Complaint: n/v Is patient in pain?: No Allergies amphetamine (From Adderall) Allergy (Severe, Verified 10/21/24 10:42) unknown dextroamphetamine (From Adderall) Allergy (Severe, Verified 10/21/24 10:42) unknown adhesive tape Allergy (Intermediate, Verified 10/21/24 10:42) Rash morphine Allergy (Verified 10/21/24 10:42) Rash Post menopausal: No Patient : No Have you fallen in the past year?: No Nurse's Note: OV 01.19.25 Pt here for f/u and reports fevers, n/v/d and abdominal pain for the past week. Pt reports zofran doesnt seem to help with nausea. Takes promethazine and finds it helpful but is unable to take while working. [facility] Medical History Kidney stone Cancer Anemia Migraine headache History of GI bleed Non-smoker Shortness of breath on exertion Leg cramps Hypertension Cardiology follow-up encounter Vitamin D deficiency PTSD (post-traumatic stress disorder) Papillary thyroid carcinoma Lupus Lactose intolerance Fibromyalgia DDD (degenerative disc disease) Congenital hip deformity Congenital heart defect Chronic fatigue Back pain Anxiety Bloating Environmental allergies Asthma Surgical History Hx of thyroidectomy Hx of esophagogastroduodenoscopy Hx of colonoscopy History of cystoscopy Hx of tubal ligation History of sinus surgery Hx of cholecystectomy S/P right knee arthroscopy Family History Mother Asthma Diabetes Hypertension Crohn's disease Kidney disease Father Hypertension Sister Bone cancer Other Bipolar 1 disorder Social History Smoking Status: Never smoker alcohol intake: never HPI HPI Chief Complaint: n/v Details: GRETA ANDRES, is a 34 F who presents to the office today for f/u. BGI established 3.1.23 with chronic vomiting. Family hx of Crohns disease in her mother and her daughter diagnosed at age 7. GI symptoms starting after radioactive iodine tx for thyroid cancer. EGD 04.08.23 - Z-line irregular, 39 cm from the incisors. Biopsied. - Chronic gastritis. Biopsied. Mild chronic inflammation - No gross lesions in the second portion of the duodenum. Biopsied. Colonoscopy 04.08.23- Decreased sphincter tone found on digital rectal exam. - Congested mucosa in the sigmoid colon, in the descending colon, in the transverse colon, in the ascending colon and in the cecum. Biopsied. - Stricture at the ileocecal valve. Biopsied. Biopsys all with no pathologic change OV 6.15.23 Crohns work up negative. Started Scopolamine patch, promethazine, colestipol 2 g daily OV 3.28.24 OV 2.28.25 About 4 days ago pt started having n/v, diarrhea and fever. Prior to this she was having nausea and vomiting in the morning and in the evening due to her gastroparesis. Scopolamine patch has been helpful and promethazine. She has issues with eating meats. ROS Const Constitutional: Positive for fatigue, fever(s) and headache(s); No weight change ENT ENT: Positive for headache(s); No difficulty swallowing Gastro GI: Positive for bloating, diarrhea, excessive flatus, nausea/dyspepsia and vomiting; No abdominal pain, belching, change in bowel habits, change in stool character, coffee ground emesis, constipation, cramping, heartburn, difficulty swallowing, feeling full early, incontinent of stools, Vomiting blood/hematemesis, Blood in stool, loose stools, Black,tarry stools, pain with swallowing or other Musc Musculoskeletal: Positive for joint pain, back pain, muscle cramps, Arthritis and leg pain at night Skin Skin: No yellowing of the eye or itchy eyes Neuro Neurology: Positive for headache(s) Psych Psychiatric: No anxiety and No depression Endo Endocrine: Positive for fatigue; No weight change Aller/Imm Allergy/Immunologic: No itchy eyes Fitz/Lymp Hematologic/Lymphatic: No easy bleeding or easy bruising Exam Const General: cooperative and comfortable Nutritional Appearance: average body habitus and well nourished HENMT Head: normal to inspection Ears: hearing grossly normal bilaterally Nose: external nose normal Face and sin (more content not included)... [facility] Office Visit (WSTR ) GRETA ANDRES ([id number]) 1990 F Date Time Provider Department 01/05/25 8:15 AM TOMAS ALEXIS [facility] During your visit today, we recorded the following information about you: Temperature Pulse Respiration Blood pressure 98 degrees 84/minute 18/minute 115/79 Weight 87.8 kg Tomas Alexis, [place]BER[place].STATISTICAL FINANCIAL ANALYST 01/05/2025 8:42 AM Signed This note was created using NoteWriter. Subjective Greta Andres is a 34 year old female. HPI About four days ago pt developed cough, fever, sore throat, sinus pressure and headache. Symptoms slowly improving other than the sinus pressure. Review of Systems As above. Objective BP 115/79 Pulse 84 Temp 36.7 ?C (98 ?F) Resp 18 Wt 87.8 kg (193 lb 9 oz) LMP 08/18/2024 (Approximate) SpO2 99% BMI 32.21 kg/m? Physical Exam Vitals and nursing note reviewed. Constitutional: General: She is not in acute distress. Appearance: Normal appearance. She is not ill-appearing. HENT: Head: Normocephalic. Mouth/Throat: Mouth: Mucous membranes are moist. Eyes: Conjunctiva/sclera: Conjunctivae normal. Cardiovascular: Rate and Rhythm: Normal rate and regular rhythm. Pulmonary: Effort: Pulmonary effort is normal. Breath sounds: Normal breath sounds. Musculoskeletal: General: Normal range of motion. Cervical back: Normal range of motion. Skin: General: Skin is warm and dry. Neurological: General: No focal deficit present. Mental Status: She is alert. Psychiatric: Mood and Affect: Mood normal. Behavior: Behavior normal. Assessment and Plan ASSESSMENT/PLAN: 1. Bacterial sinusitis - ICD9: 473.9, 041.9, ICD10: J32.9, B96.89 -Discussed with patient that symptoms seem consistent with probable influenza A and subsequent sinus infection. Discussed the risks and benefits of antibiotic use during sinus infections however patient states that this does feel typical with her previous infections and would prefer to start antibiotics. She will otherwise use [id number]-[id number] treatments as necessary for symptomatic relief. - AMOXICILLIN 875 MG-POTASSIUM CLAVULANATE 125 MG TABLET Tomas Alexis APRN.CNP Allergies As of Date: 01/05/2025 Noted Allergy Reaction ADHESIVE 02/12/2010 2 - Rash MORPHINE SULFATE 11/12/2008 9 - Itching Comments: had vicodin at same time, but has taken vicodin in past without reaction ADDERALL (DEXTROAMPHETAMINE-AMPHE* 5 - Intolerance Comments: Heart racing, chest pain, diaphoretic, dizzy Date Reviewed: 01/05/2025 Reviewed by: Tomas Alexis APRN.STATISTICAL FINANCIAL ANALYST - Fully Assessed Reason for Visit: Cough [28] Cmt: Fever, sinus congestion, chest congestion x4 days Primary Visit Diagnosis:Bacterial sinusitis [J32.9, B96.89] Order(s):amoxicillin-clavula marcy potassium (AUGMENTIN) 875-125 mg per tabletTake 1 tablet by mouth two times a day for 7 days.Disp: 14 tabletRfl: 0 Prescriptions as of 01/05/2025 - amoxicillin-clavulanate potassium (AUGMENTIN) 875-125 mg per tablet Take 1 tablet by mouth two times a day for 7 days. - SUMAtriptan (IMITREX) 50 mg tablet Take 1 tablet (50 mg) by mouth as needed for migraine headache (see administration instructions). May repeat dose after 2 hours if needed. Maximum daily dose is 200 mg per day. - traMADol (ULTRAM) 50 mg tablet Take 1-2 pills by mouth once a day for pain, prn - magnesium glycinate 100 mg magnesium capsule Take 2 capsules by mouth two times a day. - Tdoua-5-NAI-EPA-Fish Oil (FISH OIL) 1,000 (120-180) mg cap Take 2 capsules by mouth two times a day. - riboflavin, vitamin B2, 400 mg tab Take 1 tablet by mouth once daily. - hydroCHLOROthiazide 25 mg tablet Take 1 tablet by mouth once daily. - propranolol (INDERAL) 20 mg tablet Take 1 tablet by mouth once daily. - QUEtiapine (SEROQUEL) 50 mg tablet Take 1 tablet by mouth daily at bedtime. Per Psych[facility] - cariprazine (VRAYLAR) 1.5 mg capsule Take 1 capsule by mouth once daily. Per Psych: [facility] - Cholecalciferol, Vitamin D3, 50 mcg (2,000 unit) cap Take 1 capsule by mouth once daily. - cyclobenzaprine (FLEXERIL) 5 mg tablet Take by mouth twice daily as needed. - albuterol HFA (VENTOLIN HFA) 90 mcg/actuation inhaler Inhale 2 Puffs as instructed every 6 hours as needed for wheezing/shortness of breath. - levothyroxine (SYNTHROID) 25 mcg tablet Take 1 tablet by mouth daily before breakfast. Take 225 mcg total of synthroid daily (so add this 25mcg tab to your daily 200mcg tab) - levothyroxine (SYNTHROID) 200 mcg tablet Take 1 tablet by mouth once daily. - etonogestrel (NEXPLANON) subdermal implant 68 mg 68 mg by SUBDERMAL route one time only. Problem List As Of Date 01/05/2025 Noted Resolved Irregular menstrual cycle [N92.6] 04/11/2007 Backache, unspecified [M54.9] 06/19/2008 07/27/2019 Other joint derangement, not elsewhere classifi*08/20/2008 04/25/2024 Other acqu (more content not included)... Normal [facility] CNOVon 12-15-2024 [facility] Office Visit (FAMPWS ) GRETA ANDRES ([id number]) 1990 F Date Time Provider Department 12/15/24 1:40 PM RENARD ALMODOVAR During your visit today, we recorded the following information about you: Pulse Respiration Blood pressure Weight 75/minute 14/minute 154/88 88.9 kg Renard Almodovar APRN.STATISTICAL FINANCIAL ANALYST 12/15/2024 1:58 PM Signed Chief Complaint Patient presents with: Recheck HPI Greta Andres is a 34 year old female who presents here today for Above Complaints.. Patient presents for follow up for migraines. Patient was seen 11/02 and started on migraine cocktail and imitrex. Patient reports she is continuing to have migraines about 4 times monthly. Patient reports she is concerned due to sudden change in frequency of migraines. Past medical history, appointments, medications, allergies reviewed. [...] 08/07/2013 Bipolar 1 disorder (HCC) 02/14/2018 Seeing [facility] Behavioral Medicine as of 01/2018 Bipolar 1 [...] she found out she was . Fibromyalgia Gastroparesis 03/25/[address] Cole GERD (gastroesophageal reflux disease) 03/22/2014 HALLUX VALGUS 01/23/2009 Hypertension, essential 07/06/2022 Irregular menstrual cycle 04/11/2007 Lactose intolerance 03/31/2012 03/31/2012Patient is lactose intolerant. [facility] handout on Increasing Calcium in Your Diet During given to the patient. Lumbago 07/27/[address] Contreras Lumbar degenerative disc disease 07/27/2012 Lumbar spinal stenosis 04/25/2024 Lupus (systemic lupus erythematosus) (HCC) Migraine without aura and without status migrainosus, not intractable 05/20/2017 Multiple thyroid nodules 07/26/2019 Neoplasm of uncertain behavior of skin of back Obesity, Class I, BMI 30-34.9 03/03/2023 Other and unspecified ovarian cyst Ovarian cyst Other joint derangement, not elsewhere classified, lower leg 08/20/2008 Papillary thyroid carcinoma (HCC) 07/21/2019 PMH - PAST MEDICAL HISTORY OF r thumb broken Post-surgical hypothyroidism 08/25/2019 Primary thyroid papillary carcinoma (HCC)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 3016-01, ####[facility] LABCLIA [id number] [address] [address] [place] Bilirubin [Mass/Vol] 0.4 mg/dL Normal 0.2-1.3 [facility] Comment on above: Order Comment: Speci men Type: BLOOD SPECIMENOrdering Facility: [facility] Address: [address] [place] [address] Performed By: #### 2 4323-8, 1988-03, 3016-01, ####[facility] LABCLIA [id number] [address] [address] [place] Calcium [Mass/Vol] 8.9 mg/dL Normal 8.5-10.2 [facility] Comment on above: Order Comment: Speci men Type: BLOOD SPECIMENOrdering Facility: [facility] Address: [address] [place] [address] Performed By: #### 2 432-8, 1988-03, 3016-01, ####[facility] LABCLIA [id number] [address] [address] [place] Chloride [Moles/Vol] 101 mmol/L Normal 98-107 [facility] Comment on above: Order Comment: Speci men Type: BLOOD SPECIMENOrdering Facility: [facility] Address: [address] [place] [address] Performed By: #### 2 4323-8, 1988-03, 3016-01, ####[facility] LABIA [id number] [place] [id number] [place] CO2 [Moles/Vol] 20 mmol/L Low 22-30 [facility] Comment on above: Order Comment: Speci men Type: BLOOD SPECIMENOrdering Facility: [facility] Address: [address] [place] [address] Performed By: #### 2 4323-8, 1988-03, 3016-01, ####[facility] LABIA [id number] [address] [address] [place] Creatinine [Mass/Vol] 0.84 mg/dL Normal 0.58-0.96 [facility] Comment on above: Order Comment: Speci men Type: BLOOD SPECIMENOrdering Facility: [facility] Address: [address] [place] [address] Performed By: #### 2 4323-8, 1988-03, 3016-01, ####[facility] LABCLIA [id number] [address] [address] [place] Creatinine and Glomerular filtration rate.predicted panel (S/P/Bld) 94 mL/min/1.73m??? Normal >=60 [facility] Comment on above: Order Comment: Monica tsang Type: BLOOD SPECIMENOrdering Facility: [facility] Address: [address] [place] [address] Result Comment: Claudia mated Glomerular Filtration Rate (eGFR) is calculated using the 2020 CKD-EPI creatinine equation. This equation utilizes serum creatinine, sex, and age as parameters. The creatinine assay has traceable calibration to isotope dilution-mass spectrometry. Refer to KDIGO guidelines for clinical interpretation. In patients with unstable renal function, e.g. those with acute kidney injury, the eGFR may not accurately reflect actual GFR. Performed By: #### 2 4323-8, 1988-03, 3016-01, ####[facility] LABCLIA [id number] [place] [address] [place] Glucose [Mass/Vol] 100 mg/dL High 74-99 [facility] Comment on above: Order Comment: Monica tsang Type: BLOOD SPECIMENOrdering Facility: [facility] Address: [address] [place] [address] Result Comment: The [place] Diabetes [employer] (ADA) provides guidance for cutoff values for fasting glucose and random glucose. The ADA defines fasting as no caloric intake for at least 8 hours. Fasting plasma glucose results between 100 to 125 mg/dL indicate increased risk for diabetes (prediabetes). Fasting plasma glucose results greater than or equal to 126 mg/dL meet the criteria for diagnosis of diabetes. In the absence of unequivocal hyperglycemia, results should be confirmed by repeat testing. In a patient with classic symptoms of hyperglycemia or hyperglycemic crisis, random plasma glucose results greater than or equal to 200 mg/dL meet the criteria for diagnosis of diabetes. Reference: Standards of Medical Care in Diabetes 2016, [place] [employer]. Diabetes Care. 2016.39(Suppl 1). Performed By: #### 2 4323-8, 1988-03, 3016-01, ####[facility] LABCLIA [id number] [place] [id number] [place] Potassium [Moles/Vol] 3.8 mmol/L Normal 3.7-5.1 [facility] Comment on above: Order Comment: Speci men Type: BLOOD SPECIMENOrdering Facility: [facility] Address: [address] [place] [address] Performed By: #### 2 4323-8, 1988-03, 3016-01, ####[facility] LABIA [id number] [address] [address] [place] Protein [Mass/Vol] 7.4 g/dL Normal 6.3-8.0 [facility] Comment on above: Order Comment: Speci men Type: BLOOD SPECIMENOrdering Facility: [facility] Address: [address] [place], [place] [address] Performed By: #### 2 4323-8, 1988-03, 3016-01, ####[facility] [id number] [place] [id number] [place] Sodium [Moles/Vol] 137 mmol/L Normal 136-144 [facility] Comment on above: Order Comment: Speci men Type: BLOOD SPECIMENOrdering Facility: [facility] Address: [address] [place] [address] Performed By: #### 2 4323-8, 1988-03, 3016-01, ####[facility] LABIA [id number] [address] [address] [place] Urea nitrogen [Mass/Vol] 11 mg/dL Normal 7-21 [facility] Comment on above: Order Comment: Speci men Type: BLOOD SPECIMENOrdering Facility: [facility] Address: [address] [place] [address] Performed By: #### 2 4323-8, 1988-03, 3016-01, ####[facility] LABIA [id number] [address] [address] [place] ESR Westergren method (Bld) [Velocity]on 10-26-2024 ESR (Bld) [Velocity] 8 mm/h Normal 0-20 [facility] Comment on above: Order Comment: Speci men Type: BLOOD SPECIMENOrdering Facility: [facility] Address: [address] [place] [address] [place] [address] Performed By: #### 5 7021-8, 4537-7 ####[facility] LABCLIA [id number] [place] [address] [place] Magnesium SerPl-mCncon 10-26 Magnesium [Mass/Vol] 2.1 mg/dL Normal 1.7-2.3 [facility] Comment on above: Order Comment: Speci men Type: BLOOD SPECIMENOrdering Facility: [facility] Address: [address] [place] [address] Performed By: #### 2 432-8, 1988-03, 3016-01, ####[facility] LABCLIA [id number] [place] [address] [place] TSH SerPl-aCncon 10-26-2024 TSH Qn 89.100 m[IU]/L High 0.270-4.200 [facility] Comment on above: Order Comment: Monica tsang Type: BLOOD SPECIMENOrdering Facility: [facility] Address: [address] [place] [address] Result Comment: If t he patient is , TSH reference range varies by gestational period: First Trimester (weeks 9-12): 0.180-2.990 mIU/L Second Trimester: 0.110-3.980 mIU/L Third Trimester: 0.480-4.710 mIU/L Juanjo Broussard et al. A Practical Approach for the Verifications and Determination of Site- and Trimester-Specific Reference Intervals for Thyroid Function tests in . Thyroid, 2019:29:3:412-420. Shilo Long, et al. 2017 Guidelines of the [place] Thyroid [employer] for the Diagnosis and Management of Thyroid Disease during and the . Thyroid, 2017:27:3:315-389. Performed By: #### 2 4323-8, 1988-03, 3016-01, ####[facility] LABCLIA [id number] [address] [address] [place] Matilda 10-23-2024 CNPN Telephone (FAMPWS) GRETA ANDRES ([id number]) 1990 F Date Time Provider Department 10/23/24 NAGI RED During your visit today, we recorded the following information about you: Mara Beach, RN 10/23/2024 9:23 AM Signed Pt calling in as she works at [employer] and had to call off of work last week due to a bad migraine and viral gastroenteritis. Pt started with the headache on Wednesday the and came in to [facility] on Wed the . Received Toradol and was prescribed Prednisone. She states she went to work on Wednesday but [facility] be [facility] since she still had the headache. COVID test was negative but the provider at the [facility] sent her straight to the ER where she was dx with migraine and viral gastroenteritis. So she missed work on the , Wed the and then Sat and Sun the and Oct 22. Her HR department is asking her to get FMLA paperwork filled out by her PCP. Pt has her yearly physical scheduled for with Christine Dean. Is provider willing to fill out the paperwork? Pt will need a call back to let her know how to proceed. Nagi Red MD 10/23/2024 3:07 PM Signed Let patient know we do not fill out FMLA for minor illnesses and [facility] [employer] HR should know this. It's intended for instances where people are going to be off for an extended time that is typically over a week. I can fill out FMLA that she may need to be off work for a day or two with a migraine once every 2-3 months. If her Migraines are happening more often then we need to try to lesson the frequency with a daily med. Mara Beach RN 10/24/2024 9:13 AM Signed Called and spoke with pt. She states the paperwork is for short term medical leave for the time she missed at work. Pt states she has doctor's excuses from our [facility], the [facility] and from the ER provider but her HR dept is asking for this paperwork to be filled out. Pt has a yearly physical this the . She will bring paperwork with her then and discuss with Christine Dean. Also pt is interested in changing medications for her migraines and will discuss with Christine as well. Allergies As of Date: 10/23/2024 Noted Allergy Reaction ADHESIVE 02/12/2010 2 - Rash MORPHINE SULFATE 11/12/2008 9 - Itching Comments: had vicodin at same time, but has taken vicodin in past without reaction ADDERALL (DEXTROAMPHETAMINE-AMPHE* 5 - Intolerance Comments: Heart racing, chest pain, diaphoretic, dizzy Date Reviewed: 10/18/2024 Reviewed by: Nagi Ku APRN.STATISTICAL FINANCIAL ANALYST - Fully Assessed Reason for Visit: [facility] Paperwork [9585] Prescriptions as of 10/24/2024 - methylPREDNISolone (MEDROL, RATNA,) 4 mg Dose-Pack Follow dosing instructions, take with food. - traMADol (ULTRAM) 50 mg tablet Take 1-2 pills by mouth once a day for pain, prn - hydroCHLOROthiazide 25 mg tablet Take 1 tablet by mouth once daily. - QUEtiapine (SEROQUEL) 50 mg tablet Take 1 tablet by mouth daily at bedtime. [facility] - cariprazine (VRAYLAR) 1.5 mg capsule Take 1 capsule by mouth once daily. [facility] - Cholecalciferol, Vitamin D3, 50 mcg (2,000 unit) cap Take 1 capsule by mouth once daily. - rizatriptan (MAXALT) 10 mg tablet Take 1 tablet by mouth as needed. May repeat in 2 hours if needed - cyclobenzaprine (FLEXERIL) 5 mg tablet Take by mouth twice daily as needed. - albuterol HFA (VENTOLIN HFA) 90 mcg/actuation inhaler Inhale 2 Puffs as instructed every 6 hours as needed for wheezing/shortness of breath. - levothyroxine (SYNTHROID) 25 mcg tablet Take 1 tablet by mouth daily before breakfast. Take 225 mcg total of synthroid daily (so add this 25mcg tab to your daily 200mcg tab) - levothyroxine (SYNTHROID) 200 mcg tablet Take 1 tablet by mouth once daily. - etonogestrel (NEXPLANON) subdermal implant 68 mg 68 mg by SUBDERMAL route one time only. Problem List As Of Date 10/23/2024 Noted Resolved Irregular menstrual cycle [N92.6] 04/11/2007 Backache, unspecified [M54.9] 06/19/2008 07/27/2019 Other joint derangement, not elsewhere classifi*08/20/2008 04/25/2024 Other acquired deformity of toe [M20.5X9] 05/20/2009 07/27/2019 Lactose intolerance [E73.9] 03/31/2012 Anxiety, generalized [F41.1] 03/31/2012 Congenital heart defect [Q24.9] 03/31/2012 Lumbago [M54.50] 07/27/2012 Lumbar degenerative disc disease [M51.369] 07/27/2012 Back pain [M54.9] 08/07/2013 04/25/2024 Exercise-induced asthma [J45.990] 03/22/2014 Vitamin D deficiency [E55.9] 03/22/2014 Fibromyalgia [M79.7] 05/07/2014 07/27/2019 Routine gynecological examination [Z01.419] 08/10/2014 07/27/2019 Screening for diabetes mellitus (DM) [Z13.1] 08/10/2014 07/27/2019 Need for lipid screening [Z13.220] 08/10/2014 07/27/2019 Esophageal reflux [K21.9] 02/21/2015 (more content not included)... Normal [facility] Office Visit Reporton 2023 Office Visit Report [facility] [address] [place] [address] OFFICE VISIT Date of Service: 10/21/24 MR#: [id number] Acct: [id number] Patient: GRETA ANDRES Rep #: [id number] : 1990 Provider: SHANNEN Sanchez Age/Sex: 34/F Location: [facility] Status: Signed Employer Purchased Covid Test Note: Patient here today for Covid Testing, requested by their Employer. Assessment and Plan Assessment and Plan Orders: Orders POC Cepheid Covid, FluAB, RSV 10/21/24 11/04/24 1004 Date Alyssa PRIDE Cosigner Signature: Date (if applicable) CC: Normal [facility] Brain/Head without Contrasto n 10-21-2024 Brain/Head without Contrast [facility] Imaging Services [address] [place] [id number] Brain/Head without Contrast MR#: [id number] Acct: [id number] Name: GRETA ANDERS Rep #: [id number] : 1990 F 34 From: Supa muller DO PCP: Dr. Nagi Red MD Status: [facility] Study: Brain/Head without Contrast Date of Exam: 09/24 Exam# [id number] Ordering Dr: Rocio Higginbotham DO :[id number] EXAM: CT HEAD WITHOUT INTRAVENOUS CONTRAST CLINICAL INDICATION: headache x 5 days TECHNIQUE: Multiple axial images were obtained of the head without intravenous contrast. This CT exam was performed using one or more of the following dose reduction techniques: automated exposure control, adjustment of the mA and/or kV according to patient size, and/or use of iterative reconstruction technique. COMPARISON: CT head, 09/19/2011. FINDINGS: BRAIN AND EXTRA-AXIAL SPACES: No significant abnormality. No intra- or extra-axial hemorrhage. No evidence of acute infarct. No intracranial mass or mass effect. There is preservation of the bermeo/white matter interface. Ventricles are appropriate for age. Basal cisterns are patent. BONES/JOINTS: No significant abnormality. No discrete lytic or blastic abnormalities. SINUSES: Right maxillary sinus mucus retention cyst. Evidence of left-sided functional endoscopic sinus surgery. No additional sinonasal opacity. MASTOID AIR CELLS: No significant effusion. ORBITS: No acute findings. CT/Brain/Head without Contrast IMPRESSION: Right maxillary sinus mucus retention cyst. Evidence of left-sided functional endoscopic sinus surgery. No additional sinonasal opacity. Otherwise, no acute intracranial pathology. Electronically Signed: Supa Evans DO at 12:46 EST , CC: Dr. Nagi Red MD; Dr. Rocio Higginbotham DO Advertising Copywriter: Signed Normal [facility] Emergency Department Summary on 10-21-2024 Emergency Department Summary [facility] Medical Records Department [address] [place] [address] Emergency Department Summary 10/21/24 MR#: [id number] Acct: [id number] Name: GRETA ANDRES Rep #: [id number] : 1990 34 From: Rocio Higginbotham DO PCP: Dr. Nagi Red MD Status:DEP ER Location: ED HPI History of Present Illness Chief Complaint: Headache Detail of Chief Complaint: Headache x 5 days Informant: patient Narrative Narrative: Patient presents to the emergency department complaint of a headache that started 5 days ago. Patient has history of migraines but does not get them very often. She did take a Maxalt but did not get any relief the first 2 days of the start of the headache. Patient states that she started vomiting 3 days ago and yesterday started having diarrhea. She denies fever. She states that her parents are COVID-positive so work made her go get tested today and she was negative for COVID and influenza. Patient denies abdominal pain. She denies falls or head injuries. She was seen at urgent care and told she needed a CT of her head because she should have a headache for 5 days. She does state that this is the worst headache that she has had. She tells me the headache came on gradually. No family history of brain tumors or aneurysms. Patient does complain of photophobia. [facility] Medical History Kidney stone Cancer Anemia Migraine headache History of GI bleed Non-smoker Shortness of breath on exertion Leg cramps Hypertension Cardiology follow-up encounter Vitamin D deficiency PTSD (post-traumatic stress disorder) Papillary thyroid carcinoma Lupus Lactose intolerance Fibromyalgia DDD (degenerative disc disease) Congenital hip deformity Congenital heart defect Chronic fatigue Back pain Anxiety Bloating Environmental allergies Asthma Home Medications ???Medication ???Instructions ???Recorded ???Last Taken ???Type albuterol sulfate 90 mcg/actuation 1 - 2 puff inhalation Q4H PRN PRN 11/06/19 Unknown History aerosol inhaler Sob /Or Wheezing hydrochlorothiazide 12.5 mg capsule 12.5 mg PO DAILY 10/28/22 Unknown History prazosin 1 mg capsule 1 mg PO QHS 10/28/22 Unknown History rizatriptan 10 mg tablet (Maxalt) 10 mg PO PRN PRN MIGRAINES 10/28/22 Unknown History levothyroxine 100 mcg tablet 200 mcg PO DAILY 01/19/23 Unknown History tramadol 50 mg tablet 50 mg PO Q6H PRN Pain 04/05/23 Unknown History cyclobenzaprine 10 mg tablet 10 mg PO TID PRN Muscle Spasm #20 03/13/24 Unknown Rx TABLETS cariprazine 1.5 mg capsule 1.5 mg PO DAILY 05/13/24 Unknown History (Vraylar) ondansetron 4 mg disintegrating 4 mg PO Q6H PRN nausea and 09/01/24 Unknown Rx tablet vomiting #20 tabs Allergy/AdvReac Type Severity Reaction Status Date / Time amphetamine (From Adderall) Allergy Severe unknown Verified 10/21/24 10:42 dextroamphetamine (From Allergy Severe unknown Verified 10/21/24 10:42 Adderall) adhesive tape Allergy Intermediate Rash Verified 10/21/24 10:42 morphine Allergy Rash Verified 10/21/24 10:42 Family History Mother Asthma Diabetes Hypertension Crohn's disease Kidney disease Father Hypertension Sister Bone cancer Other Bipolar 1 disorder Surgical History Hx of thyroidectomy Hx of esophagogastroduodenoscopy Hx of colonoscopy History of cystoscopy Hx of tubal ligation History of sinus surgery Hx of cholecystectomy S/P right knee arthroscopy Social History Smoking Status: Never smoker alcohol intake: never ROS ROS ED Review of Systems ROS Unobtainable: other Constitutional Constitutional ED: Reports lethargy; Denies chills, fever(s), sweats or weight loss Eyes Eyes: Denies blurry vision, change in vision or diplopia ENT ENT ED: Denies rhinorrhea or sore throat Cardiovascular Cardiovascular: Denies chest pain, orthopnea or racing heartbeat Respiratory/Chest Respiratory/Chest: Denies cough, dyspnea, dyspnea on exertion, orthopnea or sputum Gastrointestinal Gastrointestinal: Reports diarrhea, nausea and vomiting; Denies abdominal pain Genitourinary Genitourinary ED: Denies dysuria, hematuria or urinary frequency Musculoskeletal Musculoskeletal: Denies arthralgias, back pain, myalgias or neck pain Integumentary Denies abscess, Abrasions or rash Neurologic Neurologic: Reports headache(s); Denies weakness Psychiatric Psychiatric: Denies anxiety, depression or suicidal thoughts Endocrine Endocrinology: Denies polydipsia, polyphagia or polyuria Hematologic/Lymphatic Hematologic/Lymphatic: Denies easy bleeding, easy bruising or lymphadenopathy Allerg (more content not included)... Normal [facility] Office Visit Reporton 2023 Office Visit Report [facility] [address] [place] [address] OFFICE VISIT Date of Service: 10/21/24 MR#: [id number] Acct: [id number] Patient: GRETA ANDRES Rep #: [id number] : 1990 Provider: SHANNEN Sanchez Age/Sex: 34/F Location: [facility] Status: Signed Employer Purchased Covid Test Note: Patient here today for Covid Testing, requested by their Employer. Assessment and Plan Assessment and Plan Orders: Orders POC Cepheid Covid, FluAB, RSV 10/21/24 11/04/24 0741 Date Alyssa Leon Signature: Date (if applicable) CC: Normal [facility] Urgent Care Visit Reporton 1 12-21-2023 Urgent Care Visit Report [facility] [address] , [address] [place] [address] OFFICE VISIT Date of Service: 10/21/24 MR#: [id number] Acct: [id number] Name: GRETA ANDRES Rep #: [id number] : 1990 Provider: SHANNEN Sanchez Age/Sex: 34/F Location: [facility] Status: Signed Intake Vital Signs 09/01/24 07:14 10/21/24 09:13 Height 5 ft 5 in 5 ft 5 in Intake Visit Reasons: HEADACHE/NAUSEA/COVID EXPOSURE Chief Complaint: REINOSO/N/V/D Allergies amphetamine (From Adderall) Allergy (Severe, Verified 10/21/24 10:18) unknown dextroamphetamine (From Adderall) Allergy (Severe, Verified 10/21/24 10:18) unknown adhesive tape Allergy (Intermediate, Verified 10/21/24 10:18) Rash morphine Allergy (Verified 10/21/24 10:18) Rash Medications ???Medication ???Instructions ???Recorded ???Confirmed ???Type albuterol sulfate 90 mcg/actuation 1 - 2 puff inhalation Q4H PRN PRN 11/06/19 10/21/24 History aerosol inhaler Sob /Or Wheezing hydrochlorothiazide 12.5 mg capsule 12.5 mg PO DAILY 10/28/22 10/21/24 History prazosin 1 mg capsule 1 mg PO QHS 10/28/22 10/21/24 History rizatriptan 10 mg tablet (Maxalt) 10 mg PO PRN PRN MIGRAINES 10/28/22 10/21/24 History levothyroxine 100 mcg tablet 200 mcg PO DAILY 01/19/23 10/21/24 History tramadol 50 mg tablet 50 mg PO Q6H PRN Pain 04/05/23 10/21/24 History cyclobenzaprine 10 mg tablet 10 mg PO TID PRN Muscle Spasm #20 03/13/24 10/21/24 Rx TABLETS cariprazine 1.5 mg capsule 1.5 mg PO DAILY 05/13/24 10/21/24 History (Vraylar) ondansetron 4 mg disintegrating 4 mg PO Q6H PRN nausea and 09/01/24 10/21/24 Rx tablet vomiting #20 tabs PFSH Medical History Kidney stone Cancer Anemia Migraine headache History of GI bleed Non-smoker Shortness of breath on exertion Leg cramps Hypertension Cardiology follow-up encounter Vitamin D deficiency PTSD (post-traumatic stress disorder) Papillary thyroid carcinoma Lupus Lactose intolerance Fibromyalgia DDD (degenerative disc disease) Congenital hip deformity Congenital heart defect Chronic fatigue Back pain Anxiety Bloating Environmental allergies Asthma Surgical History Hx of thyroidectomy Hx of esophagogastroduodenoscopy Hx of colonoscopy History of cystoscopy Hx of tubal ligation History of sinus surgery Hx of cholecystectomy S/P right knee arthroscopy Family History Mother Asthma Diabetes Hypertension Crohn's disease Kidney disease Father Hypertension Sister Bone cancer Other Bipolar 1 disorder Social History Smoking Status: Never smoker alcohol intake: never HPI HPI Chief Complaint: REINOSO/N/V/D Details: GRETA ANDRES, is a 34 F who presents to the office today for headache nausea -sx started with headache Wednesday evening continued for couple of days vomited with it on Wednesday through Wednesday - tried her antinausea, maxalt and exerderin- did not improve so went to Urgent care at [facility] Wednesday- dx with migraine and got injection of toradol and medrol dose pack -since Wednesday- having diarrhea and vomiting and still with headache -phenegran helping with the vomiting- other sx no improvement -diarrhea started middle of night- started as stool mixed with water and now all water- denies blood in stool black tarry stool or mucous- tried so far nothing for diarrhea -left sided abd pain -+ light sensitivity -has never had migraines like this before -denies any uri sx -states 20 + times with emesis and diarrhea ROS Const Constitutional: Positive for other (ROS negative x6 except what was placed in HPI) Exam Const General: cooperative and no acute distress Orientation: alert and oriented x3 HENMT Head: normal to inspection and normocephalic Neck Neck: normal visual inspection, full ROM and no lymphadenopathy Resp Effort Inspection: normal respiratory effort, able to speak in complete sentences and symmetric chest movement Auscultation: Bilateral: Clear to Auscultation, Left: Clear to Auscultation and Right: Clear to Auscultation Cardio Rate: regular rate Rhythm: regular rhythm Heart Sounds: S1 normal and S2 normal GI Auscultation: normal bowel sounds Palpation: soft, no hepatosplenomegaly and tender (mild tenderness to llq ) in the LLQ Neuro General: patient alert, patient awake and patient oriented x3 Cranial Nerves: CN's II-XI intact bilaterally, PERRL, accommodation normal, EOM intact bilaterally, no nystagmus, facial strength normal, tongue midline and able to elevate shoulders bilaterally Extrem General: normal to in (more content not included)... 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 Greta Andres is a 34 year old female who presents with headache and nausea for the past 2 days. She has been taking phenergan for nausea and Maxalt and Excedrin for the headache. Rates pain 6/10. She denies fever or associated URI symptoms. No dizziness, denies red flag symptoms. Review of Systems Constitutional: Negative for chills and fever. HENT: Negative for congestion, ear pain and sore throat. Respiratory: Negative for cough. Cardiovascular: Negative. Skin: Negative for itching and rash. Neurological: Positive for headaches. Negative for dizziness, sensory change, speech change, focal weakness, seizures, loss of consciousness and weakness. BP 118/76 Pulse 77 Temp 36.8 ?C (98.2 ?F) (Tympanic) Resp 18 Wt 88.6 kg (195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 [facility] [address] [place], [address] Eosinophils/100 WBC (Bld) 2.0 % Normal 0-5 [facility] Comment on above: Performed By: #### L 3100.0539 #### [facility] [address] [place], [address] Erythrocyte distribution width (RBC) [Ratio] 14.0 % Normal 11.6-14.6 [facility] Comment on above: Performed By: #### L 3100.0539 #### [facility] [address] [place], [address] Hematocrit (Bld) [Volume fraction] 43.2 % Normal 37-47 [facility] Comment on above: Performed By: #### L 3100.0539 #### [facility] [address] [place], [address] Hemoglobin (Bld) [Mass/Vol] 14.6 g/dL Normal 12.0-15.0 [facility] Comment on above: Performed By: #### L 3100.0539 #### [facility] [address] [place], [address] IG% 1.200 High 0.0-0.9 [facility] Comment on above: Result Comment: IG% - Immature Granulocytes (promyelocytes, myelocytes and metamyelocytes) > 1% indicates that a LEFT SHIFT is Present. Performed By: #### L 3100.0539 #### [facility] [address] [place], [address] Lymphocytes/100 WBC (Bld) 23.6 % Normal 19-41 [facility] Comment on above: Performed By: #### L 3100.0539 #### [facility] [address] [place], [address] MCH (RBC) [Entitic mass] 27.1 pg Normal 27.0-32.0 [facility] Comment on above: Performed By: #### L 3100.0539 #### [facility] [address] [place], [address] MCHC (RBC) [Mass/Vol] 33.8 g/dL Normal 32-36 [facility] Comment on above: Performed By: #### L 3100.0539 #### [facility] [address] [place], [address] MCV (RBC) [Entitic vol] 80.1 fL Low 81-99 [facility] Comment on above: Performed By: #### L 3100.0539 #### [facility] [address] [place], [address] Monocytes/100 WBC (Bld) 4.5 % Normal 0-10 [facility] Comment on above: Performed By: #### L 3100.0539 #### [facility] [address] [place], [address] Neutrophils/100 WBC (Bld) 68.2 % Normal 47-70 [facility] Comment on above: Performed By: #### L 3100.0539 #### [facility] [address] [place], [address] Nucleated RBC (Bld) [#/Vol] 0 10*3/uL Normal 0-5 [facility] Comment on above: Performed By: #### L 3100.0539 #### [facility] [address] [place], [address] Platelet mean volume (Bld) [Entitic vol] 9.8 fL Normal 6.2-12.0 [facility] Comment on above: Performed By: #### L 3100.0539 #### [facility] [address] [place], [address] Platelets (Bld) [#/Vol] 214 10*3/uL Normal 150-450 [facility] Comment on above: Performed By: #### L 3100.0539 #### [facility] [address] [place], [address] RBC (Bld) [#/Vol] 5.39 10*6/uL Normal 4.2-5.4 [facility] Comment on above: Performed By: #### L 3100.0539 #### [facility] [address] [place], [address] RDW SD 40.5 fl Normal 35.1-43.9 [facility] Comment on above: Performed By: #### L 3100.0539 #### [facility] [address] [place], [address] WBC (Bld) [#/Vol] 10.6 10*3/uL Normal 4.4-11.0 [facility] Comment on above: Performed By: #### L 3100.0539 #### [facility] [address] [place], [address] Comprehensive Metabolic Prof ilon 09-01-2024 Albumin [Mass/Vol] 3.9 g/dL Normal 3.2-5.0 [facility] Comment on above: Performed By: #### L 3100.0539 #### [facility] [address] [place], [address] Albumin/Globulin [Mass ratio] 1.0 {ratio} Normal 0.9-2.4 [facility] Comment on above: Performed By: #### L 3100.0539 #### [facility] [address] [place], [address] ALK P 101 U/L Normal 45-117 [facility] Comment on above: Performed By: #### L 3100.0539 #### [facility] [address] [place], [address] ALT [Catalytic activity/Vol] 27 U/L Normal 13-56 [facility] Comment on above: Performed By: #### L 0.0539 #### [facility] [address] [place], [address] AST [Catalytic activity/Vol] 20 U/L Normal 15-37 [facility] Comment on above: Performed By: #### L 3100.0539 #### [facility] [address] [place], [address] Bilirubin [Mass/Vol] 0.40 mg/dL Normal 0.20-1.00 [facility] Comment on above: Result Comment: For patients on eltrombopag therapy, use of Dimension [place] TBIL is not recommended. Performed By: #### L 0.0539 #### [facility] [address] [place], [address] BUN/CRE 9.8 RATIO Low 10-20 [facility] Comment on above: Performed By: #### L 0.0539 #### [facility] [address] [place], [address] CA,Total 9.0 mg/dL Normal 8.5-10.1 [facility] Comment on above: Performed By: #### L 0.0539 #### [facility] [address] [place], [address] Chloride [Moles/Vol] 109 mmol/L High 98-107 [facility] Comment on above: Performed By: #### L 0.0539 #### [facility] [address] [place], [address] CO2 [Moles/Vol] 24.0 mmol/L Normal 21.0-32.0 [facility] Comment on above: Performed By: #### L 3100.0539 #### [facility] [address] [place], [address] Creatinine [Mass/Vol] 1.02 mg/dL Normal 0.55-1.02 [facility] Comment on above: Result Comment: The validity of the calculated GFR GFRAA in patients over 70 years has not been determined. Clinical correlation is essential. Performed By: #### L 0.0539 #### [facility] [address] [place], [address] ECRCL 82.89 ml/min Normal [facility] Comment on above: Performed By: #### L 0.0539 #### [facility] [address] [place], [address] EST GFR - AA 80 mL/min Normal >60 [facility] Comment on above: Result Comment: Afri can [place] GFR Calc Performed By: #### L 0.0539 #### [facility] [address] [place], [address] GAP 7 Normal 5-15 [facility] Comment on above: Performed By: #### L 3100.0539 #### [facility] [address] [place], [address] GFR/1.73 sq M.predicted among non-blacks MDRD (S/P/Bld) [Vol rate/Area] 66 mL/min/{1.73_m2} Normal >60 [facility] Comment on above: Result Comment: Non- GFR Calc Performed By: #### L 3100.0539 #### [facility] [address] [place], [address] Globulin (S) [Mass/Vol] 4.1 g/dL Normal 2.2-4.2 [facility] Comment on above: Performed By: #### L 3100.0539 #### [facility] [address] [place], [address] Glucose [Mass/Vol] 140 mg/dL High 74-106 [facility] Comment on above: Result Comment: Fast ing Glucose result greater than or equal to 126 mg/dL suggests DIABETES MELLITUS per A.D.A. criteria. Performed By: #### L 3100.0539 #### [facility] [address] [place], [address] Potassium [Moles/Vol] 3.5 mmol/L Normal 3.5-5.1 [facility] Comment on above: Performed By: #### L 3100.0539 #### [facility] [address] [place], [address] Sodium [Moles/Vol] 140 mmol/L Normal 136-145 [facility] Comment on above: Performed By: #### L 3100.0539 #### [facility] [address] [place], [address] T PROT 8.0 g/dL Normal 6.4-8.2 [facility] Comment on above: Performed By: #### L 3100.0539 #### [facility] [address] [place], [address] Urea nitrogen [Mass/Vol] 10 mg/dL Normal 7-18 [facility] Comment on above: Performed By: #### L 3100.0539 #### [facility] [address] [place], [address] Emergency Department Summary on 09-01-2024 Emergency Department Summary [facility] Medical Records Department [address] [place] [address] Emergency Department Summary 09/01/24 MR#: [id number] Acct: [id number] Name: GRETA ANDRES Rep #: [id number] : 1990 34 From: Ludin Adams DO PCP: Dr. Nagi Red MD Status:REG ER Location: ED HPI History of Present Illness Chief Complaint: Back Narrative Narrative: Patient is a 34-year-old female with past medical history of urolithiasis, PTSD, papillary thyroid carcinoma, lupus, fibromyalgia, anxiety, asthma who presents to the emergency department with a chief complaint of back pain. Patient states that her pain started yesterday while at work. She states that she did not bend over becoming heavier or have any trauma. States that this feels like a kidney stone. States that she has had multiple kidney stones in the past and notes that she has had to have these removed. Patient states that she feels like she has a kidney stone again today. She rates her pain a 7 out of 10. [facility] Medical History Kidney stone Cancer Anemia Migraine headache History of GI bleed Non-smoker Shortness of breath on exertion Leg cramps Hypertension Cardiology follow-up encounter Vitamin D deficiency PTSD (post-traumatic stress disorder) Papillary thyroid carcinoma Lupus Lactose intolerance Fibromyalgia DDD (degenerative disc disease) Congenital hip deformity Congenital heart defect Chronic fatigue Back pain Anxiety Bloating Environmental allergies Asthma Home Medications ???Medication ???Instructions ???Recorded ???Last Taken ???Type albuterol sulfate 90 mcg/actuation 1 - 2 puff inhalation Q4H PRN PRN 11/06/19 Unknown History aerosol inhaler Sob /Or Wheezing hydrochlorothiazide 12.5 mg capsule 12.5 mg PO DAILY 10/28/22 Unknown History prazosin 1 mg capsule 1 mg PO QHS 10/28/22 Unknown History rizatriptan 10 mg tablet (Maxalt) 10 mg PO PRN PRN MIGRAINES 10/28/22 Unknown History levothyroxine 100 mcg tablet 200 mcg PO DAILY 01/19/23 Unknown History tramadol 50 mg tablet 50 mg PO Q6H PRN Pain 04/05/23 Unknown History cyclobenzaprine 10 mg tablet 10 mg PO TID PRN Muscle Spasm #20 03/13/24 Unknown Rx TABLETS cariprazine 1.5 mg capsule 1.5 mg PO DAILY 05/13/24 Unknown History (Vraylar) cephalexin 500 mg capsule 500 mg PO BID 7 days #14 caps 09/01/24 Unknown Rx ondansetron 4 mg disintegrating 4 mg PO Q6H PRN nausea and 09/01/24 Unknown Rx tablet vomiting #20 tabs Allergy/AdvReac Type Severity Reaction Status Date / Time amphetamine (From Adderall) Allergy Severe unknown Verified 09/01/24 07:17 dextroamphetamine (From Allergy Severe unknown Verified 09/01/24 07:17 Adderall) adhesive tape Allergy Intermediate Rash Verified 09/01/24 07:17 morphine Allergy Rash Verified 09/01/24 07:17 Family History Mother Asthma Diabetes Hypertension Crohn's disease Kidney disease Father Hypertension Sister Bone cancer Other Bipolar 1 disorder Surgical History Hx of thyroidectomy Hx of esophagogastroduodenoscopy Hx of colonoscopy History of cystoscopy Hx of tubal ligation History of sinus surgery Hx of cholecystectomy S/P right knee arthroscopy Social History Smoking Status: Never smoker alcohol intake: never ROS ROS ED ROS Narrative Constitutional: Denies any fevers, chills, headaches, lightness, dizziness Cardiovascular: Denies chest pain Respiratory: Denies coughing wheezing shortness of breath Abdomen: Admits to nausea vomiting denies abdominal pain diarrhea : Complains of painful urination denies any hematuria polyuria Neurological: Denies numbness, weakness, tingling Musculoskeletal: Complains of right-sided back pain as noted above Skin: Warm, dry, intact EXAM Physical Exam Narrative Exam Narrative: General: Patient lying in bed rest comfortably did not appear to be in any acute distress Head: Atraumatic, normocephalic Eyes: PERRL bilateral, EOMI bilateral, no conjunctival injection noted Neck: Soft, supple, trachea midline Cardiovascular: Patient tachycardic with a regular rhythm no murmurs gallops rubs noted Respiratory: Clear to auscultation bilaterally Abdomen: Soft, nondistended, no tenderness palpation, bowel sounds present x 4 Musculoskeletal: Patient has right-sided CVA tenderness noted on exam no midline tenderness palpation the thoracolumbar spine Extremities: +5/5 strength noted in the bilateral upper and lower extremities, no pedal edema noted exam Neurological: Patient following commands knew that she was at [facility] years 2023 Skin: Warm, dry, intact Const (more content not included)... Normal [facility] Lipaseon 09-01-2024 Lipase [Catalytic activity/Vol] 55 U/L Normal 13-75 [facility] Comment on above: Result Comment: Ozzie arrington note: LIPASE revised reference range effective 23. New Lipase methodology. Expected to produce lower values than the previous assay method. NEW Reference Range: 13 - 75 U/L Performed By: #### L 3100.0539 #### [facility] [address] [place], [place], [address] ,Urineon 09-01-2024 Beta HCG ( test) Ql (U) Negative Normal [facility] Comment on above: Order Comment: GREGG CHRISTINE TO SPECIFY Result Comment: Very dilute urine specimens, as indicated by a low specific gravity, may not contain telephone service representative levels of hCG. If is still suspected, a first morning urine specimen should be collected 48 hours later and tested. Performed By: #### L 3100.0539 #### [facility] [address] [place], [place], [id number] Urinalysis, Completeon 09-01 CA OX CRYSTAL RARE Normal [facility] Comment on above: Order Comment: GREGG CHRISTINE TO SPECIFY Performed By: #### L 3100.0539 #### [facility] [address] [facility] [place], [place], [address] WBC 5-10 SEEN Normal 0-5 [facility] Comment on above: Order Comment: GREGG CHRISTINE TO SPECIFY Performed By: #### L 3100.0539 #### [facility] [address] [place], [address] BACTERIA 2+ /hpf Normal None Seen [facility] Comment on above: Order Comment: GREGG CTOR TO SPECIFY Performed By: #### L 3100.0539 #### [facility] [address] [place], [address] EPI,SQUAMOUS 5-10 SEEN Normal 5-10 [facility] Comment on above: Order Comment: GREGG CTOR TO SPECIFY Performed By: #### L 3100.0539 #### [facility] [address] [place], [address] Mucus Ql (Urine sed) 1+ /hpf Normal [facility] Comment on above: Order Comment: GREGG CTOR TO SPECIFY Performed By: #### L 3100.0539 #### [facility] [address] [place], [address] RBC 0 SEEN Normal 0-5 [facility] Comment on above: Order Comment: GREGG CTOR TO SPECIFY Performed By: #### L 3100.0539 #### [facility] [address] [place], [address] Hepatitis B Surf AB - EMPon 08-21-2024 HEP B Surf Ab Reactive Normal [facility] Comment on above: Result Comment: Non Reactive: Inconsistent with immunity less than <10 mIU/mL Reactive: Consistent with immunity greater than or equal to 10 mIU/mL Performed By: #### L 3100.0539 #### [facility] [address] [place], [address] CNNURSEon 06-30-2024 [facility] Nurse Visit (FAMPWS) GRETA ANDRES ([id number]) 1990 F Date Time Provider Department 06/30/24 10:00 AM [place] [facility] During your visit today, we recorded the following information about you: Nata Morse LPN 06/30/2024 9:43 AM Signed Patient presents for suture removal per Dr Red. Pt denies any pain, redness, swelling, or drainage from site. Removed 5 sutures from upper left back. Incision well approximated and healing; no redness, swelling, or drainage noted. Tolerated procedure well. Nata Morse LPN Allergies As of Date: 06/30/2024 Noted Allergy Reaction ADHESIVE 02/12/2010 2 - Rash MORPHINE SULFATE 11/12/2008 9 - Itching Comments: had vicodin at same time, but has taken vicodin in past without reaction ADDERALL (DEXTROAMPHETAMINE-AMPHE* 5 - Intolerance Comments: Heart racing, chest pain, diaphoretic, dizzy Date Reviewed: 06/19/2024 Reviewed by: Jace Wallis MA - Fully Assessed Reason for Visit: Suture Removal [105] Primary Visit Diagnosis:Dermatofibroma [D23.9] Prescriptions as of 06/30/2024 - traMADol (ULTRAM) 50 mg tablet Take 1 tablet by mouth once daily as needed for up to 30 days. - hydroCHLOROthiazide 25 mg tablet Take 1 tablet by mouth once daily. - QUEtiapine (SEROQUEL) 50 mg tablet Take 1 tablet by mouth daily at bedtime. [facility] - cariprazine (VRAYLAR) 1.5 mg capsule Take 1 capsule by mouth once daily. [facility] - Cholecalciferol, Vitamin D3, 50 mcg (2,000 unit) cap Take 1 capsule by mouth once daily. - rizatriptan (MAXALT) 10 mg tablet Take 1 tablet by mouth as needed. May repeat in 2 hours if needed - traMADol (ULTRAM) 50 mg tablet Take 50 mg by mouth every 6 hours as needed for pain. - cyclobenzaprine (FLEXERIL) 5 mg tablet Take by mouth twice daily as needed. - albuterol HFA (VENTOLIN HFA) 90 mcg/actuation inhaler Inhale 2 Puffs as instructed every 6 hours as needed for wheezing/shortness of breath. - levothyroxine (SYNTHROID) 25 mcg tablet Take 1 tablet by mouth daily before breakfast. Take 225 mcg total of synthroid daily (so add this 25mcg tab to your daily 200mcg tab) - levothyroxine (SYNTHROID) 200 mcg tablet Take 1 tablet by mouth once daily. - etonogestrel (NEXPLANON) subdermal implant 68 mg 68 mg by SUBDERMAL route one time only. Problem List As Of Date 06/30/2024 Noted Resolved Irregular menstrual cycle [N92.6] 04/11/2007 Backache, unspecified [M54.9] 06/19/2008 07/27/2019 Other joint derangement, not elsewhere classifi*08/20/2008 04/25/2024 Other acquired deformity of toe [M20.5X9] 05/20/2009 07/27/2019 Lactose intolerance [E73.9] 03/31/2012 Anxiety, generalized [F41.1] 03/31/2012 Congenital heart defect [Q24.9] 03/31/2012 Lumbago [M54.50] 07/27/2012 Lumbar degenerative disc disease [M51.36] 07/27/2012 Back pain [M54.9] 08/07/2013 04/25/2024 Exercise-induced asthma [J45.990] 03/22/2014 Vitamin D deficiency [E55.9] 03/22/2014 Fibromyalgia [M79.7] 05/07/2014 07/27/2019 Routine gynecological examination [Z01.419] 08/10/2014 07/27/2019 Screening for diabetes mellitus (DM) [Z13.1] 08/10/2014 07/27/2019 Need for lipid screening [Z13.220] 08/10/2014 07/27/2019 Esophageal reflux [K21.9] 02/21/2015 07/27/2019 Chronic fatigue disorder [G93.32] 03/19/2015 Attention and concentration deficit [R41.840] 03/19/2015 07/27/2019 SI (sacroiliac) joint dysfunction [M53.3] 11/06/2015 Migraine without aura and without status migrai*05/20/2017 Well adult exam [Z00.00] 10/19/2017 Bipolar 1 disorder (HCC) [F31.9] 02/14/2018 PTSD (post-traumatic stress disorder) [F43.10] 02/14/2018 Primary thyroid papillary carcinoma (HCC) [C73] 07/21/2019 S/P total thyroidectomy [E89.0] 07/31/2019 Post-surgical hypothyroidism [E89.0] 08/25/2019 Hypertension, essential [I10] 07/06/2022 Vomiting, persistent, in adult [R11.15] 03/03/2023 Obesity, Class I, BMI 30-34.9 [E66.9] 03/03/2023 Encounter for screening for diabetes mellitus [*03/03/2023 Gastroparesis [K31.84] 03/25/2024 Lumbar spinal stenosis [M48.061] 04/25/2024 Renal stones [N20.0] 04/25/2024 Encounter for gynecological examination [Z01.41*04/25/2024 Dermatofibroma [D23.9] 06/20/2024 Encounter Status:Closed by NATA MORSE on 06/30/24 [facility] 06-20-2024 CNPN Telephone (FAMPWS) GRETA ANDRES ([id number]) 1990 F Date Time Provider Department 06/20/24 [facility] During your visit today, we recorded the following information about you: Nagi Red MD 06/20/2024 6:09 PM Signed Let patient know skin biopsy was benign. Jace Wallis MA 06/21/2024 8:31 AM Signed Patient notified and voiced understanding. Jace Wallis MA Allergies As of Date: 06/20/2024 Noted Allergy Reaction ADHESIVE 02/12/2010 2 - Rash MORPHINE SULFATE 11/12/2008 9 - Itching Comments: had vicodin at same time, but has taken vicodin in past without reaction ADDERALL (DEXTROAMPHETAMINE-AMPHE* 5 - Intolerance Comments: Heart racing, chest pain, diaphoretic, dizzy Date Reviewed: 06/19/2024 Reviewed by: Jace Wallis MA - Fully Assessed Reason for Visit: Results [95] Prescriptions as of 06/21/2024 - traMADol (ULTRAM) 50 mg tablet Take 1 tablet by mouth once daily as needed for up to 30 days. - hydroCHLOROthiazide 25 mg tablet Take 1 tablet by mouth once daily. - QUEtiapine (SEROQUEL) 50 mg tablet Take 1 tablet by mouth daily at bedtime. [facility] - cariprazine (VRAYLAR) 1.5 mg capsule Take 1 capsule by mouth once daily. [facility] - Cholecalciferol, Vitamin D3, 50 mcg (2,000 unit) cap Take 1 capsule by mouth once daily. - rizatriptan (MAXALT) 10 mg tablet Take 1 tablet by mouth as needed. May repeat in 2 hours if needed - traMADol (ULTRAM) 50 mg tablet Take 50 mg by mouth every 6 hours as needed for pain. - cyclobenzaprine (FLEXERIL) 5 mg tablet Take by mouth twice daily as needed. - albuterol HFA (VENTOLIN HFA) 90 mcg/actuation inhaler Inhale 2 Puffs as instructed every 6 hours as needed for wheezing/shortness of breath. - levothyroxine (SYNTHROID) 25 mcg tablet Take 1 tablet by mouth daily before breakfast. Take 225 mcg total of synthroid daily (so add this 25mcg tab to your daily 200mcg tab) - levothyroxine (SYNTHROID) 200 mcg tablet Take 1 tablet by mouth once daily. - etonogestrel (NEXPLANON) subdermal implant 68 mg 68 mg by SUBDERMAL route one time only. Problem List As Of Date 06/20/2024 Noted Resolved Irregular menstrual cycle [N92.6] 04/11/2007 Backache, unspecified [M54.9] 06/19/2008 07/27/2019 Other joint derangement, not elsewhere classifi*08/20/2008 04/25/2024 Other acquired deformity of toe [M20.5X9] 05/20/2009 07/27/2019 Lactose intolerance [E73.9] 03/31/2012 Anxiety, generalized [F41.1] 03/31/2012 Congenital heart defect [Q24.9] 03/31/2012 Lumbago [M54.50] 07/27/2012 Lumbar degenerative disc disease [M51.36] 07/27/2012 Back pain [M54.9] 08/07/2013 04/25/2024 Exercise-induced asthma [J45.990] 03/22/2014 Vitamin D deficiency [E55.9] 03/22/2014 Fibromyalgia [M79.7] 05/07/2014 07/27/2019 Routine gynecological examination [Z01.419] 08/10/2014 07/27/2019 Screening for diabetes mellitus (DM) [Z13.1] 08/10/2014 07/27/2019 Need for lipid screening [Z13.220] 08/10/2014 07/27/2019 Esophageal reflux [K21.9] 02/21/2015 07/27/2019 Chronic fatigue disorder [G93.32] 03/19/2015 Attention and concentration deficit [R41.840] 03/19/2015 07/27/2019 SI (sacroiliac) joint dysfunction [M53.3] 11/06/2015 Migraine without aura and without status migrai*05/20/2017 Well adult exam [Z00.00] 10/19/2017 Bipolar 1 disorder (HCC) [F31.9] 02/14/2018 PTSD (post-traumatic stress disorder) [F43.10] 02/14/2018 Primary thyroid papillary carcinoma (HCC) [C73] 07/21/2019 S/P total thyroidectomy [E89.0] 07/31/2019 Post-surgical hypothyroidism [E89.0] 08/25/2019 Hypertension, essential [I10] 07/06/2022 Vomiting, persistent, in adult [R11.15] 03/03/2023 Obesity, Class I, BMI 30-34.9 [E66.9] 03/03/2023 Encounter for screening for diabetes mellitus [*03/03/2023 Gastroparesis [K31.84] 03/25/2024 Lumbar spinal stenosis [M48.061] 04/25/2024 Renal stones [N20.0] 04/25/2024 Encounter for gynecological examination [Z01.41*04/25/2024 Dermatofibroma [D23.9] 06/20/2024 Encounter Status:Closed by JACE WALLIS on 06/21/24 Normal [facility] SURGICAL PATHOLOGYOrdered By : Rinku Webb on 06-20-2024 Case Report Surgical Pathology R eport Case: [id number] Authorizing Provider: Nagi Red MD Collected: 06/19/2024 03:07 PM Ordering Location: [facility] Received: 06/19/2024 03:33 PM Pathologist: Rinku Webb MD Specimen: Skin, Excision [facility] Work Phone: Clinical History o3yzuCLfWISnk1bbKGEm bGFuZzEw OiQvClAtFlg4DJDlmyO2Ovl8LKNt CHbpmC5pFYWtBDiwW2ujfyStzDSw NOHpOOh8nC9cwIxpdU7nFyFxJuSx ZOHceHZzJ8FovM0uTYFoRGEpCH3y ZVxwYXIgfQ== [facility] Work Phone: FINAL DIAGNOSIS a7ebrEHsZKCvlRYaLSVi NVxhbnNp WQRgqCSiN6SpgcyzYRubCD2tUD2l qCwkgFIqpDWrJDOfSmNnw4cfs826 pGHqv7ttAPSRhgzfpUz7gKltL89r g0I2BvjlA13deWLkVPW6QEFvRWSk nGNqOEMtZGV6PDIgvBCwL2oaWIEb OY5dvdrhBWouWCtqGHVgbMH0QWJp iMXdT7EpWYFoSMbzJFWdoqu3EiGk Ar6fgBZquTzaMHjgFTCgPPUpBUfq ZSNiDcAjCB3xG1zjgzspfTBijAF9 rDAeuaGpDISiLMVgeFAgs3trgjqf xUTbAH6uUVPKAFHpXAFbMngmme7j BJ3rmVUdOLCmqtBURKLgD3HdbN9u MDcvMzAvMjAyNCBccGFyfQ== [facility] Work Phone: [phone] Gross Description e2urrENgZOMedZQyENYj NVxhbnNp IWMieFUuI0HhcfswEDowKR9gNJ9z cImejFQcrMBaHOBxRoXxn1dqo489 nSOsx7kqDMBZvpvrbAw4aRwxW63m g0U2UqtgW86ymVWdNAC8OUMoSYQm cEZhTAPgIMN7YRNwxZWiX6sqXXZw ZZ0ytnpqDDvyYCshBJAgrSP3JHHz uVJtW0DfHBMgNJgkVVVjdfl6QmUw Uj1lsTQluBjqKCscCxyzwSpfl7Zc dCBcXGlkIDUxMDAwIFxcbmggXFx0 ABAxZOslpLVnJT6vlIdbMjqeuQzw g9TplLWoMXlrLCNoWEPqXTgwMFYr P8EVOANfBdfhDbKxMmDpOHg6WVa2 EM9IXdEcLYN6FWozFFw2QRQfOOf4 ZIrgLM7PDRSvUzl3Jwy0OoPjLPF9 CMllWGnpsUQvSLiee7PaZqDdFHMt QUvxleM1AWYujyVmhUjawF8jFzYp ZhRHUkAQw4evDZANmHXui9abtvqo PFZnrSGtFCvjIpBtIHGyqMNUv3Io FXmsePGtonvgzkDrWDWkN7FjvdNc JGnyNMPpxt4xkBfuFUvjNNVyNUSy m0WmWC05HWXuQGsweZZ8yCHrjNDi UFelGE77QN7wXVVixN6vGU4tWLA8 DiW4kURmGO60tzE9dKOxaPAzeZBg y5RtwU0fDXQgVOR3XYEpMPJ6HIXk TFSmgQ0oBYbeZVZafQ4vj0KfJmEt LFPaXM5pqfP4ylG4CSJeSJ6dmXPc GIi3gVFbXJSpvw6wegN0FTXeUBCw pHRpJOTvZELuk2RebIGstxAeOJ7a JNK5mfhvPvCgRcMeeISuEfcjK94z IGFuZCBleHRlbmRzIHRvIHdpdGhp oaOlMiPvP15ccK9haPyqPC2xGTKi x7RplXTrB0jfZiWIhNBhVLLfkCGj hlRspGY4MFIkrEDvNAImsV2oWPGf ESTqybogZCUsvEJqcv6wOFggRNSd GZHpfQOrMIgcRPPtY3Sjv03iCXku AV1cUEWogDHkpPrnk0DhuZt4hMXu SFqkDPY1szKrQMRgPNC1WCN4GKRb IHRpcHMsIEEyIHJlbWFpbmRlciBv HxW0vIVqeUGjQPsrSDKggRBhNXek LTCmR2Qnl5KfOUbysVtyUCJuy23f dJDfMy5hiVAdXHN7GQXaONGgxJXz HCIAzLtulEHiFSf0IVMcXVIqaLhw DHV0FN5sOPIjYWEgbQBaAYavR6sm EYMsBROahXVvSOSjyfSBYJBpSs8h KB7fIVE5AZQhNnO5CFRRUJRnnpwb MAAhDCLkpORFx7YwLYobXODmD9Aj T6ZhhmV3k3sckEept6VbgVCoLD4d cGFyfQ== [facility] Work Phone: [phone] Performing Lab c5vcnDVmONQipOXsAiKe MDAwXGFu k7fdRTAevGAzXbVdNaJmXpJnNqfs sEWuUDPkHaCzi9cmb574eZYhm3up UUYiZoA0aQThUCOzbBNvT281NQJn MPxcs1lsk7JyMYMwdQXat5C8OVLM npajrGg1kBmcG49dw6C3NanhR5ub TTSqKHNtJ2ZcZK8tXZGgTow2RYW0 TET3TUEsKAYbX5RmVT7fPJNxhWYq OFy8w3kjrHwqVIEsJGH7q4isEBmp hvLbCW8fea1fmKi5m9wvkuVvAJRh FBLvkKYNGUQyU2HuaSguJd5idVs7 iAyfZxlmLCC5Biq0PA8zpc46svt5 fVirGOGrpbijVtS0VZigVNKoklie CZj0YMhkQPEuyGI1THLswPJxY3Sy AHqmJI6hbbn9TMD7NHmcHIBmLdB6 HLSdlDApJJBzeWplISypo719NQQ3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 [M54.9] 08/07/2013 04/25/2024 Exercise-induced asthma [J45.990] 03/22/2014 Vitamin D deficiency [E55.9] 03/22/2014 Fibromyalgia [M79.7] 05/07/2014 07/27/2019 Routine gynecological examination [Z01.419] 08/10/2014 07/27/2019 Screening for diabetes mellitus (DM) [Z13.1] 08/10/2014 07/27/2019 Need for lipid screening [Z13.220] 08/10/2014 07/27/2019 Esophageal reflux [K21.9] 02/21/2015 07/27/2019 Chronic fatigue disorder [G93.32] 03/19/2015 Attention and concentration deficit [R41.840] 03/19/2015 07/27/2019 SI (sacroiliac) joint dysfunction [M53.3] 11/06/2015 Migraine without aura and without status migrai*05/20/2017 Well adult exam [Z00.00] 10/19/2017 Bipolar 1 disorder (HCC) [F31.9] 02/14/2018 PTSD (post-traumatic stress disorder) [F43.10] 02/14/2018 Primary thyroid papillary carcinoma (HCC) [C73] 07/21/2019 S/P total thyroidectomy [E89.0] 07/31/2019 Post-surgical hypothyroidism [E89.0] 08/25/2019 Hypertension, essential [I10] 07/06/2022 Vomiting, persistent, in adult [R11.15] 03/03/2023 Obesity, Class I, BMI 30-34.9 [E66.9] 03/03/2023 Encounter for screening for diabetes mellitus [*03/03/2023 Gastroparesis [K31.84] 03/25/2024 Lumbar spinal stenosis [M48.061] 04/25/2024 Renal stones [N20.0] 04/25/2024 Encounter for gynecological examination [Z01.41*04/25/2024 Prescriptions ordered this encounter Disp Refills Start End CHOLECALCIFEROL (VITAMIN D3) 50 MCG * 04/25/2024 Class: OTC Route: ORAL Sig: Take 1 capsule by mouth once daily. Encounter Status:Closed by NAGI RED on 04/26/24 Normal [facility] 25(OH)D3 Clara-Jeremy 2023 25-hydroxyvitamin D3 [Mass/Vol] 26.8 ng/mL Low 31.0-80.0 [facility] Comment on above: Order Comment: Speci men Type: BLOOD SPECIMENOrdering Facility: [facility] Address: [address] [place] [address] Result Comment: Clas sification of 25 OH Vitamin D status: Deficiency/Insufficiency: < or = 30 ng/ml. Sufficiency/Optimal Levels: 31-80 ng/mL Toxicity: > 100 ng/mL. Test performed by chemiluminescent immunoassay. Performed By: #### 1 989-3 ####[facility] LABCLIA [id number] [place] [address] [place] CBC W Auto Differential pane l (Bld)on 04-24-2024 Basophils (Bld) [#/Vol] 0.03 10*3/uL Normal <0.11 [facility] Comment on above: Order Comment: Speci men Type: BLOOD SPECIMENOrdering Facility: [facility] Address: [address] [place] [address] Performed By: #### 5 7021-8 ####[facility] LABCLIA [id number] [place] [address] [place] Basophils/100 WBC (Bld) 0.3 % Normal [facility] Comment on above: Order Comment: Speci men Type: BLOOD SPECIMENOrdering Facility: [facility] Address: [address] [place] [address] Performed By: #### 5 7021-8 ####[facility] LABCLIA [id number] [place] [address] [place] Differential cell count method Nom (Bld) Auto Normal [facility] Comment on above: Order Comment: Speci men Type: BLOOD SPECIMENOrdering Facility: [facility] Address: [address] [place] [address] Performed By: #### 5 7021-8 ####[facility] LABCLIA [id number] [place] [address] [place] Eosinophils (Bld) [#/Vol] 0.22 10*3/uL Normal <0.46 [facility] Comment on above: Order Comment: Speci men Type: BLOOD SPECIMENOrdering Facility: [facility] Address: [address] [place] [address] Performed By: #### 5 7021-8 ####[facility] LABCLIA [id number] [place] [address] [place] Eosinophils/100 WBC (Bld) 2.2 % Normal [facility] Comment on above: Order Comment: Speci men Type: BLOOD SPECIMENOrdering Facility: [facility] Address: [address] [place] [address] Performed By: #### 5 7021-8 ####[facility] LABCLIA [id number] [place] [address] [place] Erythrocyte distribution width (RBC) [Ratio] 14.2 % Normal 11.5-15.0 [facility] Comment on above: Order Comment: Speci men Type: BLOOD SPECIMENOrdering Facility: [facility] Address: [address] [place] [address] Performed By: #### 5 7021-8 ####[facility] LABCLIA [id number] [place] [address] [place] Hematocrit (Bld) [Volume fraction] 42.1 % Normal 36.0-46.0 [facility] Comment on above: Order Comment: Speci men Type: BLOOD SPECIMENOrdering Facility: [facility] Address: [address] [place] [address] Performed By: #### 5 7021-8 ####[facility] LABCLIA [id number] [place] [address] [place] Hemoglobin (Bld) [Mass/Vol] 14.3 g/dL Normal 11.5-15.5 [facility] Comment on above: Order Comment: Speci men Type: BLOOD SPECIMENOrdering Facility: [facility] Address: [address] [place] [address] Performed By: #### 5 7021-8 ####[facility] LABCLIA [id number] [place] [address] [place] Immature granulocytes (Bld) [#/Vol] 0.10 10*3/uL High <0.10 [facility] Comment on above: Order Comment: Speci men Type: BLOOD SPECIMENOrdering Facility: [facility] Address: [address] [place] [address] Performed By: #### 5 7021-8 ####[facility] LABIA [id number] [place] [address] [place] Immature granulocytes/100 WBC (Bld) 1.0 % Normal [facility] Comment on above: Order Comment: Speci men Type: BLOOD SPECIMENOrdering Facility: [facility] Address: [address] [place] [address] Performed By: #### 5 7021-8 ####[facility] LABIA [id number] [place] [address] [place] Lymphocytes (Bld) [#/Vol] 2.50 10*3/uL Normal 1.00-4.00 [facility] Comment on above: Order Comment: Speci men Type: BLOOD SPECIMENOrdering Facility: [facility] Address: [address] [place] [address] Performed By: #### 5 7021-8 ####[facility] LABCLIA [id number] [place] [address] [place] Lymphocytes/100 WBC (Bld) 25.0 % Normal [facility] Comment on above: Order Comment: Speci men Type: BLOOD SPECIMENOrdering Facility: [facility] Address: [address] [place] [address] Performed By: #### 5 7021-8 ####[facility] LABIA [id number] [place] [address] [place] MCH (RBC) [Entitic mass] 26.9 pg Normal 26.0-34.0 [facility] Comment on above: Order Comment: Speci men Type: BLOOD SPECIMENOrdering Facility: [facility] Address: [address] [place] [address] Performed By: #### 5 7021-8 ####[facility] LABIA [id number] [place] [address] [place] MCHC (RBC) [Mass/Vol] 34.0 g/dL Normal 30.5-36.0 [facility] Comment on above: Order Comment: Speci men Type: BLOOD SPECIMENOrdering Facility: [facility] Address: [address] [place] [address] Performed By: #### 5 7021-8 ####[facility] [id number] [place] [address] [place] MCV (RBC) [Entitic vol] 79.1 fL Low 80.0-100.0 [facility] Comment on above: Order Comment: Speci men Type: BLOOD SPECIMENOrdering Facility: [facility] Address: [address] [place] [address] Performed By: #### 5 7021-8 ####[facility] LABIA [id number] [place] [address] [place] Monocytes (Bld) [#/Vol] 0.52 10*3/uL Normal <0.87 [facility] Comment on above: Order Comment: Speci men Type: BLOOD SPECIMENOrdering Facility: [facility] Address: [address] [place] [address] Performed By: #### 5 7021-8 ####[facility] LABCLIA [id number] [place] [address] [place] Monocytes/100 WBC (Bld) 5.2 % Normal [facility] Comment on above: Order Comment: Speci men Type: BLOOD SPECIMENOrdering Facility: [facility] Address: [address] [place] [address] Performed By: #### 5 7021-8 ####[facility] LABCLIA [id number] [place] [address] [place] Neutrophils (Bld) [#/Vol] 6.63 10*3/uL Normal 1.45-7.50 [facility] Comment on above: Order Comment: Speci men Type: BLOOD SPECIMENOrdering Facility: [facility] Address: [address] [place] [address] Performed By: #### 5 7021-8 ####[facility] LABCLIA [id number] [place] [address] [place] Neutrophils/100 WBC (Bld) 66.3 % Normal [facility] Comment on above: Order Comment: Speci men Type: BLOOD SPECIMENOrdering Facility: [facility] Address: [address] [place] [address] Performed By: #### 5 7021-8 ####[facility] LABCLIA [id number] [place] [address] [place] Nucleated RBC (Bld) [#/Vol] 10*3/uL Normal <0.01 [facility] Comment on above: Order Comment: Speci men Type: BLOOD SPECIMENOrdering Facility: [facility] Address: [address] [place] [address] Performed By: #### 5 7021-8 ####[facility] LABCLIA [id number] [place] [address] [place] Nucleated RBC/100 WBC (Bld) [Ratio] 0.0 /100 WBC Normal [facility] Comment on above: Order Comment: Speci men Type: BLOOD SPECIMENOrdering Facility: [facility] Address: [address] [place] [address] Performed By: #### 5 7021-8 ####[facility] LABCLIA [id number] [place] [address] [place] Platelet mean volume (Bld) [Entitic vol] 10.8 fL Normal 9.0-12.7 [facility] Comment on above: Order Comment: Speci men Type: BLOOD SPECIMENOrdering Facility: [facility] Address: [address] [place] [address] Performed By: #### 5 7021-8 ####[facility] LABCLIA [id number] [place] [address] [place] Platelets (Bld) [#/Vol] 268 10*3/uL Normal 150-400 [facility] Comment on above: Order Comment: Speci men Type: BLOOD SPECIMENOrdering Facility: [facility] Address: [address] [place] [address] Performed By: #### 5 7021-8 ####[facility] LABIA [id number] [place] [address] [place] RBC (Bld) [#/Vol] 5.32 10*6/uL High 3.90-5.20 [facility] Comment on above: Order Comment: Speci men Type: BLOOD SPECIMENOrdering Facility: [facility] Address: [address] [place] [address] Performed By: #### 5 7021-8 ####[facility] LABCLIA [id number] [place] [address] [place] WBC (Bld) [#/Vol] 10.00 10*3/uL Normal 3.70-11.00 [facility] Comment on above: Order Comment: Speci men Type: BLOOD SPECIMENOrdering Facility: [facility] Address: [address] [place] [address] Performed By: #### 5 7021-8 ####[facility] LABCLIA [id number] [place] [address] [place] Comprehensive metabolic 2000 panelon 04-24-2024 Albumin [Mass/Vol] 4.2 g/dL Normal 3.9-4.9 [facility] Comment on above: Order Comment: Speci men Type: BLOOD SPECIMENOrdering Facility: [facility] Address: [address] [place] [address] Performed By: #### 2 4323-8, 3016-3, LIPNF ####[facility] LABCLIA [id number] [place] [address] [place] ALP [Catalytic activity/Vol] 126 U/L High 34-123 [facility] Comment on above: Order Comment: Speci men Type: BLOOD SPECIMENOrdering Facility: [facility] Address: [address] [place] [address] Performed By: #### 2 4323-8, 3016-3, LIPNF ####[facility] LABIA [id number] [place] [address] [place] ALT [Catalytic activity/Vol] 19 U/L Normal 7-38 [facility] Comment on above: Order Comment: Speci men Type: BLOOD SPECIMENOrdering Facility: [facility] Address: [address] [place] [address] Performed By: #### 2 4323-8, 3016-3, LIPNF ####[facility] LABIA [id number] [place] [id number] [place] Anion gap [Moles/Vol] 10 mmol/L Normal 9-18 [facility] Comment on above: Order Comment: Speci men Type: BLOOD SPECIMENOrdering Facility: [facility] Address: [address] [place] [address] Performed By: #### 2 4323-8, 3016-3, LIPNF ####[facility] LABCLIA [id number] [place] [address] [place] AST [Catalytic activity/Vol] 22 U/L Normal 13-35 [facility] Comment on above: Order Comment: Speci men Type: BLOOD SPECIMENOrdering Facility: [facility] Address: [address] [place] [address] Performed By: #### 2 4323-8, 3015-3, LIPNF ####[facility] LABCLIA [id number] [place] [address] [place] Bilirubin [Mass/Vol] 0.3 mg/dL Normal 0.2-1.3 [facility] Comment on above: Order Comment: Speci men Type: BLOOD SPECIMENOrdering Facility: [facility] Address: [address] [place] [address] Performed By: #### 2 4323-8, 3015-3, LIPNF ####[facility] LABCLIA [id number] [place] [address] [place] Calcium [Mass/Vol] 9.3 mg/dL Normal 8.5-10.2 [facility] Comment on above: Order Comment: Speci men Type: BLOOD SPECIMENOrdering Facility: [facility] Address: [address] [place] [address] Performed By: #### 2 4323-8, 3015-3, LIPNF ####[facility] LABCLIA [id number] [place] [id number] [place] Chloride [Moles/Vol] 107 mmol/L High 97-105 [facility] Comment on above: Order Comment: Speci men Type: BLOOD SPECIMENOrdering Facility: [facility] Address: [address] [place] [address] Performed By: #### 2 4323-8, 3015-3, LIPNF ####[facility] LABCLIA [id number] [place] [address] [place] CO2 [Moles/Vol] 23 mmol/L Normal 22-30 [facility] Comment on above: Order Comment: Monica tsang Type: BLOOD SPECIMENOrdering Facility: [facility] Address: [address] [place] [address] Performed By: #### 2 4323-8, 3016-3, LIPNF ####[facility] LABCLIA [id number] [place] [address] [place] Creatinine [Mass/Vol] 0.62 mg/dL Normal 0.58-0.96 [facility] Comment on above: Order Comment: Monica tsang Type: BLOOD SPECIMENOrdering Facility: [facility] Address: [address] [place] [address] Performed By: #### 2 4323-8, 3016-3, LIPNF ####[facility] LABIA [id number] [place] [address] [place] Creatinine and Glomerular filtration rate.predicted panel (S/P/Bld) 121 mL/min/1.73m??? Normal >=60 [facility] Comment on above: Order Comment: Monica tsang Type: BLOOD SPECIMENOrdering Facility: [facility] Address: [address] [place] [address] Result Comment: Claudia mated Glomerular Filtration Rate (eGFR) is calculated using the 2020 CKD-EPI creatinine equation. This equation utilizes serum creatinine, sex, and age as parameters. The creatinine assay has traceable calibration to isotope dilution-mass spectrometry. Refer to KDIGO guidelines for clinical interpretation. In patients with unstable renal function, e.g. those with acute kidney injury, the eGFR may not accurately reflect actual GFR. Performed By: #### 2 4323-8, 3016-3, LIPNF ####[facility] LABCLIA [id number] [place] [address] [place] Glucose [Mass/Vol] 111 mg/dL High 74-99 [facility] Comment on above: Order Comment: Speci men Type: BLOOD SPECIMENOrdering Facility: [facility] Address: [address] [place] [address] Result Comment: The [place] Diabetes [employer] (ADA) provides guidance for cutoff values for fasting glucose and random glucose. The ADA defines fasting as no caloric intake for at least 8 hours. Fasting plasma glucose results between 100 to 125 mg/dL indicate increased risk for diabetes (prediabetes). Fasting plasma glucose results greater than or equal to 126 mg/dL meet the criteria for diagnosis of diabetes. In the absence of unequivocal hyperglycemia, results should be confirmed by repeat testing. In a patient with classic symptoms of hyperglycemia or hyperglycemic crisis, random plasma glucose results greater than or equal to 200 mg/dL meet the criteria for diagnosis of diabetes. Reference: Standards of Medical Care in Diabetes 2016, [place] [employer]. Diabetes Care. 2016.39(Suppl 1). Performed By: #### 2 4323-8, 3016-3, LIPNF ####[facility] LABCLIA [id number] [place] [address] [place] Potassium [Moles/Vol] 4.0 mmol/L Normal 3.7-5.1 [facility] Comment on above: Order Comment: Monica tsang Type: BLOOD SPECIMENOrdering Facility: [facility] Address: [address] [place] [address] Performed By: #### 2 4323-8, 3016-3, LIPNF ####[facility] LABCLIA [id number] [place] [address] [place] Protein [Mass/Vol] 7.2 g/dL Normal 6.3-8.0 [facility] Comment on above: Order Comment: Gogoi men Type: BLOOD SPECIMENOrdering Facility: [facility] Address: [address] [place] [address] Performed By: #### 2 4323-8, 3016-3, LIPNF ####[facility] LABCLIA [id number] [place] [address] [place] Sodium [Moles/Vol] 140 mmol/L Normal 136-144 [facility] Comment on above: Order Comment: Monica tsang Type: BLOOD SPECIMENOrdering Facility: [facility] Address: [address] [place] [address] Performed By: #### 2 4323-8, 3016-3, LIPNF ####[facility] LABCLIA [id number] [place] [address] [place] Urea nitrogen [Mass/Vol] 6 mg/dL Low 7-21 [facility] Comment on above: Order Comment: Gogoi men Type: BLOOD SPECIMENOrdering Facility: [facility] Address: [address] [place] [address] Performed By: #### 2 4323-8, 3016-3, LIPNF ####[facility] LABCLIA [id number] [place] [address] [place] HbA1c (Bld)on 04-24-2024 Average glucose Estimated from glycated hemoglobin (Bld) [Mass/Vol] 117 mg/dL Normal [facility] Comment on above: Order Comment: Monica tsang Type: BLOOD SPECIMENOrdering Facility: [facility] Address: [address] [place] [address] Result Comment: eAG: (Estimated average glucose) is a calculated value from HgbA1c and is telephone service representative of the average blood glucose level in the last 2-3 month period. Performed By: #### 5 5454-3 ####[facility] LABIA [id number] [place] [address] [place] HbA1c (Bld) [Mass fraction] 5.7 % High 4.3-5.6 [facility] Comment on above: Order Comment: Monica tsang Type: BLOOD SPECIMENOrdering Facility: [facility] Address: [address] [place] [address] Result Comment: [place] Diabetes Association guidelines indicate that patients with HgbA1c in the range 5.7-6.4% are at increased risk for development of diabetes, and intervention by lifestyle modification may be beneficial. HgbA1c greater or equal to 6.5% is considered diagnostic of diabetes. Performed By: #### 5 5454-3 ####[facility] LABCLIA [id number] [address] OF [place] LIPID PANEL, NONFASTINGon Cholesterol [Mass/Vol] 203 mg/dL High <200 [facility] Comment on above: Order Comment: Speci men Type: BLOOD SPECIMENOrdering Facility: [facility] Address: [address] [place] [address] Result Comment: <200 mg/dL, Desirable 200-239 mg/dL, Borderline high >239 mg/dL, High Performed By: #### 2 4323-8, 6-3, LIPNF ####[facility] LABCLIA [id number] [place] [address] [place] HDL CHOLESTEROL, NF 31 mg/dL Low >39 [facility] Comment on above: Order Comment: Speci men Type: BLOOD SPECIMENOrdering Facility: [facility] Address: [address] [place] [address] Result Comment: 40-5 9 mg/dL, Acceptable >59 mg/dL, High: Negative risk factor for coronary heart disease <40 mg/dL, Low: Positive risk factor for coronary heart disease Performed By: #### 2 4323-8, 6-3, LIPNF ####[facility] LABCLIA [id number] [address] [place] LDL CHOLESTEROL, NF 129 mg/dL High <100 [facility] Comment on above: Order Comment: Speci men Type: BLOOD SPECIMENOrdering Facility: [facility] Address: [address] [place] [address] Result Comment: <100 mg/dL, Optimal 100-129 mg/dL, Near optimal/above optimal 130-159 mg/dL, Borderline high 160-189 mg/dL, High >189 mg/dL, Very high Secondary prevention optimal LDL Cholesterol levels are recommended to be < 70 mg/dL Performed By: #### 2 4323-8, 6-3, LIPNF ####[facility] LABCLIA [id number] [place] [address] [place] LDL/HDL RATIO, NF 4.16 mg/dL High <2.54 [facility] Comment on above: Order Comment: Speci men Type: BLOOD SPECIMENOrdering Facility: [facility] Address: [address] [place] [address] Result Comment: Anderse maik: 1. National Cholesterol Education Program ATP III Guideline At-A-Glance Quick Desk Reference: National Heart, Lung, and Blood [place]. National Institutes of Health. 2001: NIH Publication No. 01-3305. 2. An International Atherosclerosis Society position paper: global recommendations for the management of dyslipidemia: executive summary, Atherosclerosis. 2014: 232(2):410-413. Performed By: #### 2 4323-8, 3016-3, LIPNF ####[facility] LABCLIA [id number] [place] [address] [place] NON HDL CHOL, NF 172 mg/dL High <130 [facility] Comment on above: Order Comment: Speci men Type: BLOOD SPECIMENOrdering Facility: [facility] Address: [address] [place] [address] Result Comment: <130 mg/dL, Optimal 130-159 mg/dL, Near optimal/above optimal 160-189 mg/dL, Borderline high 190-219 mg/dL, High >219 mg/dL, Very high Secondary prevention optimal non HDL Cholesterol levels are recommended to be <100 mg/dL Performed By: #### 2 4323-8, 3016-3, LIPNF ####[facility] LABCLIA [id number] [place] [address] [place] T CHOL/HDL RATIO NF 6.55 mg/dL High <5.10 [facility] Comment on above: Order Comment: Speci men Type: BLOOD SPECIMENOrdering Facility: [facility] Address: [address] [place] [address] Performed By: #### 2 4323-8, 3016-3, LIPNF ####[facility] LABCLIA [id number] [place] [address] [place] TRIGLYCERIDES, NF 217 mg/dL High <150 [facility] Comment on above: Order Comment: Monica tsang Type: BLOOD SPECIMENOrdering Facility: [facility] Address: [address] [place] [address] Result Comment: <150 mg/dL, Normal 150-199 mg/dL, Borderline high 200-499 mg/dL, High >499 mg/dL, Very high Performed By: #### 2 4323-8, 3016-3, LIPNF ####[facility] LABCLIA [id number] [place] [address] [place] VLDL CHOLESTEROL, NF 43 mg/dL High <30 [facility] Comment on above: Order Comment: Speci men Type: BLOOD SPECIMENOrdering Facility: [facility] Address: [address] [place] [address] Performed By: #### 2 4323-8, 3016-3, LIPNF ####[facility] LABCLIA [id number] [place] [address] [place] TSH SerPl-aCncon 04-24-2024 TSH Qn 1.040 m[IU]/L Normal 0.270-4.200 [facility] Comment on above: Order Comment: Speci men Type: BLOOD SPECIMENOrdering Facility: [facility] Address: [address] [place] [address] Result Comment: If t he patient is , TSH reference range varies by gestational period: First Trimester (weeks 9-12): 0.180-2.990 mIU/L Second Trimester: 0.110-3.980 mIU/L Third Trimester: 0.480-4.710 mIU/L Juanjo Broussard et al. A Practical Approach for the Verifications and Determination of Site- and Trimester-Specific Reference Intervals for Thyroid Function tests in . Thyroid, 2019:29:3:412-420. Shilo E, et al. 2017 Guidelines of the [place] Thyroid Association for the Diagnosis and Management of Thyroid Disease during and the . Thyroid, 2017:27:3:315-389. Performed By: #### 2 4323-8, 3016-3, LIPNF ####[facility] LABCLIA [id number] [place] [address] [place] Urinalysis complete panel (U )on 04-24-2024 BACTERIA UL 2207.0 uL High Negative [facility] Comment on above: Order Comment: Speci men Type: URINE SPECIMENOrdering Facility: [facility] Address: [address] [place] [address] Performed By: #### 2 4356-8 ####[facility] LABIA [id number] [place] [address] [place] Bilirubin Ql (U) Negative Normal Negative [facility] Comment on above: Order Comment: Speci men Type: URINE SPECIMENOrdering Facility: [facility] Address: [address] [place] [address] Performed By: #### 2 4356-8 ####[facility] LABIA [id number] [place] [address] [place] CALCIUM OXALATE CRYSTALS (UA) Few Abnormal None Seen [facility] Comment on above: Order Comment: Speci men Type: URINE SPECIMENOrdering Facility: [facility] Address: [address] [place] [address] Performed By: #### 2 4356-8 ####[facility] LABCLIA [id number] [place] [address] [place] Clarity (Unsp spec) Clear Normal Clear [facility] Comment on above: Order Comment: Speci men Type: URINE SPECIMENOrdering Facility: [facility] Address: [address] [place] [address] Performed By: #### 2 4356-8 ####[facility] LABIA [id number] [place] [address] [place] Color (U) Yellow Normal Yellow [facility] Comment on above: Order Comment: Speci men Type: URINE SPECIMENOrdering Facility: [facility] Address: [address] [place] [address] Performed By: #### 2 4356-8 ####[facility] LABCLIA [id number] [place] [address] [place] Epithelial cells LM.HPF (Urine sed) [#/Area] Moderate Normal [facility] Comment on above: Order Comment: Speci men Type: URINE SPECIMENOrdering Facility: [facility] Address: [address] [place] [address] Performed By: #### 2 4356-8 ####[facility] LABCLIA [id number] [place] [address] [place] Glucose Test strip (U) [Mass/Vol] Negative Normal Negative [facility] Comment on above: Order Comment: Speci men Type: URINE SPECIMENOrdering Facility: [facility] Address: [address] [place] [address] Performed By: #### 2 4356-8 ####[facility] LABCLIA [id number] [place] [address] [place] Hemoglobin Ql (U) Negative Normal Negative [facility] Comment on above: Order Comment: Speci men Type: URINE SPECIMENOrdering Facility: [facility] Address: [address] [place] [address] Performed By: #### 2 4356-8 ####[facility] LABCLIA [id number] [place] [address] [place] Hyaline casts (Urine sed) [#/Area] 1-3 /LPF Abnormal 0 /LPF [facility] Comment on above: Order Comment: Speci men Type: URINE SPECIMENOrdering Facility: [facility] Address: [address] [place] [address] Performed By: #### 2 4356-8 ####[facility] LABCLIA [id number] [place] [address] [place] Ketones Ql (U) Negative Normal Negative [facility] Comment on above: Order Comment: Speci men Type: URINE SPECIMENOrdering Facility: [facility] Address: [address] [place] [address] Performed By: #### 2 4356-8 ####[facility] LABCLIA [id number] [place] [address] [place] Leukocyte esterase Test strip Ql (U) Trace Abnormal Negative [facility] Comment on above: Order Comment: Speci men Type: URINE SPECIMENOrdering Facility: [facility] Address: [address] [place] [address] Performed By: #### 2 4356-8 ####[facility] LABIA [id number] [place] [address] [place] Nitrite Ql (U) Negative Normal Negative [facility] Comment on above: Order Comment: Speci men Type: URINE SPECIMENOrdering Facility: [facility] Address: [address] [place] [address] Performed By: #### 2 4356-8 ####[facility] LABCLIA [id number] [place] [address] [place] pH (U) 6.5 [pH] Normal <8.5 [facility] Comment on above: Order Comment: Speci men Type: URINE SPECIMENOrdering Facility: [facility] Address: [address] [place] [address] Performed By: #### 2 4356-8 ####[facility] LABCLIA [id number] [place] [address] [place] Protein (U) [Mass/Vol] Negative Normal Negative [facility] Comment on above: Order Comment: Speci men Type: URINE SPECIMENOrdering Facility: [facility] Address: [address] [place] [address] Performed By: #### 2 4356-8 ####[facility] LABIA [id number] [place] [address] [place] RBC LM.HPF (Urine sed) [#/Area] 0-2 /HPF Normal 0-2 /HPF [facility] Comment on above: Order Comment: Speci men Type: URINE SPECIMENOrdering Facility: [facility] Address: [address] [place] [address] Performed By: #### 2 4356-8 ####[facility] [id number] [place] [address] [place] Specific gravity (U) [Rel density] 1.021 Normal 1.005-1.030 [facility] Comment on above: Order Comment: Speci men Type: URINE SPECIMENOrdering Facility: [facility] Address: [address] [place] [address] Performed By: #### 2 4356-8 ####[facility] [id number] [place] [address] [place] Urobilinogen Ql (U) 1.0 EU/dL Normal 0.2-1.0 EU/dL [facility] Comment on above: Order Comment: Speci men Type: URINE SPECIMENOrdering Facility: [facility] Address: [address] [place] [address] Performed By: #### 2 4356-8 ####[facility] [id number] [place] [address] [place] WBC LM.HPF (Urine sed) [#/Area] 0-5 /HPF Normal 0-5 /HPF [facility] Comment on above: Order Comment: Speci men Type: URINE SPECIMENOrdering Facility: [facility] Address: [address] [place] [address] Performed By: #### 2 4356-8 ####[facility] [id number] [place] [address] [place] STREP A MOLECULAR (POC)on Procedural Control Valid [facility] Strep A (POCT) Negative Negative [facility] STREP A MOLECULAR (POC)on Procedural Control Valid [facility] Strep A (POCT) Negative Negative [facility] CTA NECK W IVCONon [facility] XR Lumbar spine AP and Later al and obliqueon 03-29-2023 IMPRESSION: Negative lumbar spine x-ray. Advertising Copywriter: PSCB Transcribe Date/Time: Mar 29 2023 3:16P Dictated by : SRIDHAR ROSAS MD This examination was interpreted and the report reviewed and electronically signed by: SRIDHAR ROSAS MD on Mar 29 2023 3:17PM [facility] DIVISION OF RADIOLOGY * * *Final Report* * * DATE OF EXAM: Mar 27 2023 9:00AM WOX [id number] - XR LUMBAR PARS 4V AP/LAT/OBL X2 / PROCEDURE REASON: Lumbar degenerative disc disease * * * * Physician Interpretation * * * * EXAM TITLE: XR LUMBAR PARS 4V AP/LAT/OBL X2 EXAM DATE/TIME: 03/27/2023 9:00 AM COMPARISON: None. CLINICAL INDICATION/HISTORY: Degenerative disc disease. TECHNIQUE: AP, lateral, cone down lateral and oblique views of the lumbar spine are presented. FINDINGS: There are five hfk-idy-nnnaulo lumbar vertebra. No fracture or subluxations are noted. Questionable L3 vertebral body bone island. The disc spaces are well preserved. There is no significant osteophyte formation. DIVISION OF RADIOLOGY Provider, [facility] Kayli gaona [place] - 03/29/2023 * * *Final Report* * * DATE OF EXAM: Mar 27 2023 9:00AM WOX [id number] - XR LUMBAR PARS 4V AP/LAT/OBL X2 / PROCEDURE REASON: Lumbar degenerative disc disease * * * * Physician Interpretation * * * * EXAM TITLE: XR LUMBAR PARS 4V AP/LAT/OBL X2 EXAM DATE/TIME: 03/27/2023 9:00 AM COMPARISON: None. CLINICAL INDICATION/HISTORY: Degenerative disc disease. TECHNIQUE: AP, lateral, cone down lateral and oblique views of the lumbar spine are presented. FINDINGS: There are five tpo-bdl-fshmjfh lumbar vertebra. No fracture or subluxations are noted. Questionable L3 vertebral body bone island. The disc spaces are well preserved. There is no significant osteophyte formation. IMPRESSION IMPRESSION: Negative lumbar spine x-ray. Advertising Copywriter: PSCB Transcribe Date/Time: Mar 29 2023 3:16P Dictated by : SRIDHAR ROSAS MD This examination was interpreted and the report reviewed and electronically signed by: SRIDHAR ROSAS MD on Mar 29 2023 3:17PM EST [facility] XR Lumbar spine AP and Later al and obliqueOrdered By: Ccf Provider on 03-29-2023 [facility] AP and Later al and obliqueon 03-27-2023 Radiology Study observation (narrative) [facility] XR FLUOROSCOPYon 02-12-2023 [facility] HCG ( test) Ql (U)o n 10-23-2022 Beta HCG ( test) Ql (U) Negative Normal NEGATIVE [facility] Comment on above: Performed By: #### 2 106-3 #### [facility] [address] [place] [address] Financial Processing Clerk - Rachelle MULLINS [id number] ABDOMEN FLAT AND UPRIGHTon 1 11-30-2021 ABDOMEN FLAT AND UPRIGHT EXAM: ABDOMEN FLAT AND UPRIGHT HISTORY: Abdominal pain COMPARISON: 05/01/2022 KUB IMPRESSION: No free air or obstruction. Moderate stool mainly in the right colon and sigmoid. Normal [facility] [place] US,HEAD/NECK TISSUES,REAL TIMEon 09-16-2022 Tawanna Rivera MD 11:59 PM ULTRASOUND NOTE Images were taken through the [...] 0.9 cm LEFT LATERAL: No suspicious nodes [facility] Radiology Study observation (narrative) [facility] TSHon 09-16-2022 Interpretation and review of laboratory results Normal [facility] TSH Qn 3.175 m[IU]/L [facility] [place] Unspecified body regionOr dered By: Unassigned Pacs on 09-16-2022 [facility] Work Phone: [place] Unspecified body regionon 09-16-2022 Radiology Study observation (narrative) [facility] Comprehensive metabolic 2000 panelon 07-06-2022 Albumin [Mass/Vol] 4.9 g/dL 3.9 - 4.9 g/dL [facility] ALP [Catalytic activity/Vol] 65 U/L 34 - 123 U/L [facility] ALT [Catalytic activity/Vol] 26 U/L 7 - 38 U/L [facility] Anion gap [Moles/Vol] 11 mmol/L 9 - 18 mmol/L [facility] AST [Catalytic activity/Vol] 29 U/L 13 - 35 U/L [facility] Bilirubin [Mass/Vol] 0.5 mg/dL 0.2 - 1 .3 mg/dL [facility] Calcium [Mass/Vol] 9.3 mg/dL 8.5 - 10. 2 mg/dL [facility] Chloride [Moles/Vol] 103 mmol/L 97 - 10 5 mmol/L [facility] CO2 [Moles/Vol] 25 mmol/L 22 - 30 mmol/L [facility] Creatinine [Mass/Vol] 0.86 mg/dL 0.58 - 0.96 mg/dL [facility] Estimated Glomerular Filtration Rate 93 mL/min/1.73m >=60 mL/min/1.73 m [facility] Glucose [Mass/Vol] 86 mg/dL 74 - 99 mg/dL [facility] Potassium [Moles/Vol] 4.0 mmol/L 3.7 - 5.1 mmol/L [facility] Protein [Mass/Vol] 7.9 g/dL 6.3 - 8.0 g/dL [facility] Sodium [Moles/Vol] 139 mmol/L 136 - 144 mmol/L [facility] Urea nitrogen [Mass/Vol] 12 mg/dL 7 - 21 mg/dL [facility] LIPID PANEL, NONFASTINGon Cholesterol [Mass/Vol] 214 mg/dL High <200 mg/dL [facility] HDL Cholesterol, Nonfasting 47 mg/dL >39 mg/dL [facility] LDL Cholesterol, Nonfasting 141 mg/dL High <100 mg/dL [facility] LDL/HDL Ratio, Nonfasting 3.00 mg/dL High <2.54 mg/dL [facility] Non HDL Cholesterol, Nonfasting 167 mg/dL High <130 mg/dL [facility] Total Chol/HDL Ratio, Nonfasting 4.55 mg/dL <5.10 mg/dL [facility] Triglycerides, Nonfasting 132 mg/dL <150 mg/dL [facility] VLDL Cholesterol, Nonfasting 26 mg/dL <30 mg/dL [facility] ABDOMEN FLATon 05-01-2022 ABDOMEN FLAT EXAMINATION: ABDOMEN FLAT, 05/01/2022 2:33 PM EDT HISTORY: Right flank abdominal pain COMPARISON: CT abdomen and pelvis 10/11/2021 TECHNIQUE: Abdominal x-ray: Two views. FINDINGS: No convincing nephrolithiasis or urinary tract calculus is evident. Mild retained fecal content in the right colon is seen. Retained gastric content noted. The bowel pattern nonobstructive. Organomegaly is not seen. Acute osseous pathology is not seen. Regional soft tissues normal. IMPRESSION: 1. No nephrolithiasis or urinary tract calculus 3. Nonobstructive bowel pattern No convincing Normal [facility] URINALYSIS with reflex to CU LTUREon 05-01-2022 BACTERIA Normal TRACE [facility] Comment on above: Performed By: #### U AR #### [facility] [address] [place] [address] Financial Processing Clerk - Rachelle MULLINS [id number] Performed for [facility] [address] [place], [place] [address] Bilirubin Ql (U) Negative Normal NEGATIVE [facility] Comment on above: Performed By: #### U AR #### [facility] [address] [place] [address] Financial Processing Clerk - Rachelle MULLINS [id number] Performed for [facility] [address] [place], [place] [address] Clarity (U) CLEAR Normal CLEAR [facility] Comment on above: Performed By: #### U AR #### [facility] [address] [place] [address] Financial Processing Clerk - Rachelle MLULINS [id number] Performed for [facility] [address] [place], [place] [address] Color (U) YELLOW Normal YELLOW [facility] Comment on above: Performed By: #### U AR #### [facility] [address] [place] [address] Financial Processing Clerk - Rachelle MULLINS [id number] Performed for [facility] [address] [place] [address] Glucose Ql (U) Negative Normal NEGATIVE [facility] Comment on above: Performed By: #### U AR #### [facility] [address] [place] [address] Financial Processing Clerk - Rachelle MULLINS [id number] Performed for [facility] [address] [place] [address] Hemoglobin Ql (U) Negative Normal NEGATIVE [facility] Comment on above: Performed By: #### U AR #### [facility] [address] [place] [address] Financial Processing Clerk - Rachelle MULLINS [id number] Performed for [facility] [address] [place] [address] HMICRO MICROSCOPIC Normal [facility] Comment on above: Performed By: #### U AR #### [facility] [address] [place] [address] Financial Processing Clerk - Rachelle MULLINS [id number] Performed for [facility] [address] [place] [address] Hyaline casts (Urine sed) [#/Area] Normal 0-8 [facility] Comment on above: Performed By: #### U AR #### [facility] [address] [place] [address] Financial Processing Clerk - Rachelle MULLINS [id number] Performed for [facility] [address] [place] [address] KETONE TRACE Abnormal NEGATIVE [facility] Comment on above: Performed By: #### U AR #### [facility] [address] [place] [address] Financial Processing Clerk - Rachelle MULLINS [id number] Performed for [facility] [address] [place], [place] [address] Leukocyte esterase Test strip Ql (U) Negative Normal TRACE [facility] Comment on above: Performed By: #### U AR #### [facility] [address] [place], [place] [address] Financial Processing Clerk - Rachelle MULLINS [id number] Performed for [facility] [address] [place], [place] [address] Nitrite Ql (U) Negative Normal NEGATIVE [facility] Comment on above: Performed By: #### U AR #### [facility] [address] [place], [place] [address] Financial Processing Clerk [facility] [id number] Performed for [facility] [address] [place], [place] [address] pH (U) 6.0 [pH] Normal 5.5-7.5 [facility] Comment on above: Performed By: #### U AR #### [facility] [facility] [address] [place] [address] Financial Processing Clerk - [facility] HARPREET [id number] Performed for [facility] [address] [place], [place] [address] Protein Ql (U) Negative Normal NEGATIVE [facility] Comment on above: Performed By: #### U AR #### [facility] [address] [place] [address] Financial Processing Clerk [facility] HAR[facility] [id number] Performed for [facility] [address] [place], [place] [address] RBC LM.HPF (Urine sed) [#/Area] Normal 0-4 [facility] Comment on above: Performed By: #### U AR #### [facility] [address] [place] [address] Financial Processing Clerk - RachelleMadison HospitalHilldavide MULLINS [id number] Performed for [facility] [address] [place], [place] [address] Specific gravity (U) [Rel density] 1.028 Normal 1.010-1.035 [facility] Comment on above: Performed By: #### U AR #### [facility] [address] [place] [address] Financial Processing Clerk - Rachelle MULLINS [id number] Performed for [facility] [address] [place], [place] [address] SQUAMOUS EPITHELIALS Normal 0-5 [facility] Comment on above: Performed By: #### U AR #### [facility] [address] [place], [place] [address] Financial Processing Clerk - Rachelle MULLINS [id number] Performed for [facility] [address] [place], [place] [address] Urobilinogen Qn (U) 1.0 {Herbert'U}/dL Normal <=1.0 [facility] Comment on above: Performed By: #### U AR #### [facility] [address] [place], [place] [address] Financial Processing Clerk - Rachelle MULLINS [id number] Performed for [facility] [address] [place], [place] [address] WBC LM.HPF (Urine sed) [#/Area] Normal 0-5 [facility] Comment on above: Performed By: #### U AR #### [facility] [address] [place], [place] [address] Financial Processing Clerk - Rachelle MULLINS [id number] Performed for [facility] [address] [place], [place] [address] [place] US,HEAD/NECK TISSUES,REAL TIMEon 03-20-2022 Radiology Study observation (narrative) [facility] THYROGLOBULIN&THYROGLOBULIN ABon 03-19-2022 [employer] Day Worker review Cristi (Unsp spec) [Interp] SEE COMMENTS [facility] Comment on above: Thyroglobulin (Tg) l evels must be interpreted in the context of TSH levels, serial Tg measurements and radioiodine ablation status. Tg levels <0.1 ng/mL in athyrotic individuals on suppressive therapy indicate a minimal risk (<1-2%) of clinically detectable recurrent papillary/follicular thyroid cancer. ADDITIONAL INFORMATION PLEASE NOTE: A thyroglobulin antibody (TgAb) reference cutoff of <4.0 IU/mL may be more suitable for the evaluation of autoimmune thyroiditis. Thyroglobulin flagging is based on athyrotic reference values. The thyroglobulin and thyroglobulin antibody testing methods are immunoenzymatic assays manufactured by [employer] and performed on the [employer] DXI 800. Values obtained from different assay methods or kits may be different and cannot be used interchangeably. The results cannot be interpreted as absolute evidence for the presence or absence of malignant disease. Test Performed by: [facility] [address] [place] [address] Truck Driver'S Offsider: Noble Cuellar M.D. Ph.D.; CLIA# [id number] Thyroglobulin [Mass/Vol] <0.1 ng/mL [facility] Comment on above: REFERENCE VALUE Athyrotic <0.1 Intact Thyroid <=33 Thyroglobulin Ab IA Qn <1.8 <1.8 IU/mL [facility] No Panel InformationOrdered By: Unassigned Pacs on 03-18-2022 [facility] Work Phone: [place] US,HEAD/NECK TISSUES,REAL TIMEon 03-18-2022 Tawanna Rivera MD 2:15 PM ULTRASOUND NOTE Images were taken through the [...] 0.2 cm LEFT LATERAL: No suspicious nodes [facility] TSHon 03-18-2022 Interpretation and review of laboratory results Normal [facility] TSH Qn 1.140 m[IU]/L [facility] US Unspecified body regionon 03-18-2022 Radiology Study observation (narrative) [facility] MANDIBLE COMPLETEon 03-11-20 22 MANDIBLE COMPLETE EXAM: SOFT TISSUE NE CK AP & LATERAL, MANDIBLE COMPLETE 03/11/2022. HISTORY: Temporomandibular joint disorder COMPARISON: None. FINDINGS: SOFT TISSUE NECK, 2 VIEWS: AP and lateral views demonstrate no acute fracture or subluxation. Cervical alignment is intact. Vertebral body heights and disc spaces are preserved. Prevertebral soft tissues appear unremarkable as does the epiglottis. Prior dental repair noted. MANDIBLE, 4 VIEWS: No acute fracture or dislocation noted. Nasal septum is midline. No obvious air-fluid levels within the sinuses. Mastoid air cells are clear. A root canal associated with the second molar of the left mandible is noted. Radiopaque mosque associated with the crown of molar within the right mandible are noted. Temporomandibular articulations unremarkable without significant degenerative change. IMPRESSION: 1. Unremarkable soft tissue neck. Prevertebral soft tissues, epiglottis and area of glottic folds appear otherwise unremarkable. 2. Prior dental repair. 3. No acute mandibular fracture or dislocation. Temporomandibular articulations appear otherwise unremarkable. Normal [facility] SOFT TISSUE NECK AP & LATERA Enrique 03-11-2022 SOFT TISSUE NECK AP & LATERAL EXAM: SOFT TISSUE NECK AP & LATERAL, MANDIBLE COMPLETE 03/11/2022. HISTORY: Temporomandibular joint disorder COMPARISON: None. FINDINGS: SOFT TISSUE NECK, 2 VIEWS: AP and lateral views demonstrate no acute fracture or subluxation. Cervical alignment is intact. Vertebral body heights and disc spaces are preserved. Prevertebral soft tissues appear unremarkable as does the epiglottis. Prior dental repair noted. MANDIBLE, 4 VIEWS: No acute fracture or dislocation noted. Nasal septum is midline. No obvious air-fluid levels within the sinuses. Mastoid air cells are clear. A root canal associated with the second molar of the left mandible is noted. Radiopaque mosque associated with the crown of molar within the right mandible are noted. Temporomandibular articulations unremarkable without significant degenerative change. IMPRESSION: 1. Unremarkable soft tissue neck. Prevertebral soft tissues, epiglottis and area of glottic folds appear otherwise unremarkable. 2. Prior dental repair. 3. No acute mandibular fracture or dislocation. Temporomandibular articulations appear otherwise unremarkable. Normal [facility] CORONAVIRUS ABBOTTon 021 HMOLE TESTING PERFORMED BY MOLECULAR METHOD Normal [facility] Comment on above: Performed By: #### C CARIDADBOT #### [facility] [address] [place] [address] Financial Processing Clerk - Rachelle MULLINS [id number] HPCRA TEST PERFORMED USING MANRIQUEZ ID NOW Normal [facility] Comment on above: Performed By: #### C OVABOT #### [facility] [address] [place] [address] Financial Processing Clerk - Rachelle WILSONIA [id number] SARS-CoV-2 (COVID-19) RNA PATRIA+probe Ql (Unsp spec) Detected Abnormal NOT DETECTED [facility] Comment on above: Performed By: #### C OVABOT #### [address] [place] [address] Financial Processing Clerk - Rachelle WILSONIA [id number] XR Ankle - left AP and Later al and obliqueon 07-17-2021 IMPRESSION: Small stuart int effusion of the left ankle. No acute fractures seen. Advertising Copywriter: PSCB Transcribe Date/Time: Jul 17 2021 12:37P Dictated by : SRIDHAR ROSAS MD This examination was interpreted and the report reviewed and electronically signed by: SRIDHAR ROSAS MD on Jul 17 2021 12:40PM [facility] DIVISION OF RADIOLOGY * * *Final Report* * * DATE OF EXAM: Jul 17 2021 12:36PM WOX 5298 - XR ANKLE 3V AP/LAT/OBL LT / PROCEDURE REASON: Left ankle injury, initial encounter * * * * Physician Interpretation * * * * EXAM TITLE: XR ANKLE 3V AP/LAT/OBL LT EXAM DATE/TIME: 07/17/2021 12:36 PM COMPARISON: None. CLINICAL INDICATION/HISTORY: Injury. TECHNIQUE: AP, mortise and lateral views of the left ankle are presented. FINDINGS: No acute fractures or subluxations are noted. The mortise joint spaces are well preserved. There is small joint effusion. The mineralization of the bones is normal. There is no significant soft tissue swelling. DIVISION OF RADIOLOGY Provider, [facility] - 07/17/2021 * * *Final Report* * * DATE OF EXAM: Jul 17 2021 12:36PM WOX 5298 - XR ANKLE 3V AP/LAT/OBL LT / PROCEDURE REASON: Left ankle injury, initial encounter * * * * Physician Interpretation * * * * EXAM TITLE: XR ANKLE 3V AP/LAT/OBL LT EXAM DATE/TIME: 07/17/2021 12:36 PM COMPARISON: None. CLINICAL INDICATION/HISTORY: Injury. TECHNIQUE: AP, mortise and lateral views of the left ankle are presented. FINDINGS: No acute fractures or subluxations are noted. The mortise joint spaces are well preserved. There is small joint effusion. The mineralization of the bones is normal. There is no significant soft tissue swelling. IMPRESSION IMPRESSION: Small joint effusion of the left ankle. No acute fractures seen. Advertising Copywriter: EITAN Transcribe Date/Time: Jul 17 2021 12:37P Dictated by : SRIDHAR ROSAS MD This examination was interpreted and the report reviewed and electronically signed by: SRIDHAR ROSAS MD on Jul 17 2021 12:40PM [facility] Radiology Study observation (narrative) [facility] XR Ankle - left AP and Later al and obliqueOrdered By: Ccf Provider on 07-17-2021 [facility] Ammoniaon 02-08-2021 Ammonia (P) [Mass/Vol] 27 umol/L Normal 11-51 [facility] Reference Lab Comment on above: Performed By: #### N H3, MG1, CMP, CBCDIF, LI, VPA, XB12F #### [facility] Routine Lab [address] [place] [address] CBC and Differentialon 02-08 Abs Baso <0.03 Normal <0.11 [facility] Reference Lab Comment on above: Performed By: #### N H3, MG1, CMP, CBCDIF, LI, VPA, XB12F #### [facility] Routine Lab [address] [place], [place] [address] Abs Centre 0.56 k/uL Normal <0.87 [facility] Reference Lab Comment on above: Performed By: #### N H3, MG1, CMP, CBCDIF, LI, VPA, XB12F #### [facility] Routine Lab [address] [place] [address] Abs Neut 8.43 k/uL High 1.45-7.50 [facility] Reference Lab Comment on above: Performed By: #### N H3, MG1, CMP, CBCDIF, LI, VPA, XB12F #### [facility] Routine Lab [address] [place] [phone] Absolute nRBC <0.01 Normal <0.01 [facility] Reference Lab Comment on above: Performed By: #### N H3, MG1, CMP, CBCDIF, LI, VPA, XB12F #### [facility] Routine Lab [address] [place] [phone] Basophils/100 WBC (Bld) 0.2 % Normal [facility] Reference Lab Comment on above: Performed By: #### N H3, MG1, CMP, CBCDIF, LI, VPA, XB12F #### [facility] Routine Lab [address] [place] [phone] DTYPE ADIFF Normal [facility] Reference Lab Comment on above: Performed By: #### N H3, MG1, CMP, CBCDIF, LI, VPA, XB12F #### [facility] Routine Lab [address] [place] [phone] Eosinophils (Bld) [#/Vol] 0.12 10*3/uL Normal <0.46 [facility] Reference Lab Comment on above: Performed By: #### N H3, MG1, CMP, CBCDIF, LI, VPA, XB12F #### [facility] Routine Lab [address] [place] [phone] Eosinophils/100 WBC (Bld) 1.0 % Normal [facility] Reference Lab Comment on above: Performed By: #### N H3, MG1, CMP, CBCDIF, LI, VPA, XB12F #### [facility] Routine Lab [address] [place], [place] [phone] Erythrocyte distribution width (RBC) [Ratio] 13.4 % Normal 11.5-15.0 [facility] Reference Lab Comment on above: Performed By: #### N H3, MG1, CMP, CBCDIF, LI, VPA, XB12F #### [facility] Routine Lab [address] [place] [address] Hematocrit (Bld) [Volume fraction] 44.6 % Normal 36.0-46.0 [facility] Reference Lab Comment on above: Performed By: #### N H3, MG1, CMP, CBCDIF, LI, VPA, XB12F #### [facility] Routine Lab [address] [place] [address] Hemoglobin (Bld) [Mass/Vol] 14.0 g/dL Normal 11.5-15.5 [facility] Reference Lab Comment on above: Performed By: #### N H3, MG1, CMP, CBCDIF, LI, VPA, XB12F #### [facility] Routine Lab [address] [place] [address] Lymphocytes (Bld) [#/Vol] 2.63 10*3/uL Normal 1.00-4.00 [facility] Reference Lab Comment on above: Performed By: #### N H3, MG1, CMP, CBCDIF, LI, VPA, XB12F #### [facility] Routine Lab [facility] [place] [address] Lymphocytes/100 WBC (Bld) 22.4 % Normal [facility] Reference Lab Comment on above: Performed By: #### N H3, MG1, CMP, CBCDIF, LI, VPA, XB12F #### [facility] Routine Lab [facility] [place] [address] MCH (RBC) [Entitic mass] 27.9 pG Normal 26.0-34.0 [facility] Reference Lab Comment on above: Performed By: #### N H3, MG1, CMP, CBCDIF, LI, VPA, XB12F #### [facility] Routine Lab [address] [place], [place] [address] MCHC (RBC) [Mass/Vol] 31.4 g/dL Normal 30.5-36.0 [facility] Reference Lab Comment on above: Performed By: #### N H3, MG1, CMP, CBCDIF, LI, VPA, XB12F #### [facility] Routine Lab [address] [place] [address] MCV (RBC) [Entitic vol] 88.8 fL Normal 80.0-100.0 [facility] Reference Lab Comment on above: Performed By: #### N H3, MG1, CMP, CBCDIF, LI, VPA, XB12F #### [facility] Routine Lab [address] [place], [place] [address] Monocytes/100 WBC (Bld) 4.8 % Normal [facility] Reference Lab Comment on above: Performed By: #### N H3, MG1, CMP, CBCDIF, LI, VPA, XB12F #### [facility] Routine Lab [address] [place], [place] [address] Neutrophils/100 WBC (Bld) 71.6 % Normal [facility] Reference Lab Comment on above: Performed By: #### N H3, MG1, CMP, CBCDIF, LI, VPA, XB12F #### [facility] Routine Lab [address] [place], [place] [address] NRBCs 0.0 /100 WBC Normal 0 [facility] Reference Lab Comment on above: Performed By: #### N H3, MG1, CMP, CBCDIF, LI, VPA, XB12F #### [facility] Routine Lab [address] [place] [address] Platelet mean volume (Bld) [Entitic vol] 10.9 fL Normal 9.0-12.7 [facility] Reference Lab Comment on above: Performed By: #### N H3, MG1, CMP, CBCDIF, LI, VPA, XB12F #### [facility] Routine Lab [address] [place], [place] [address] Platelets (Bld) [#/Vol] 278 10*3/uL Normal 150-400 [facility] Reference Lab Comment on above: Performed By: #### N H3, MG1, CMP, CBCDIF, LI, VPA, XB12F #### [facility] Routine Lab [address] [place], [place] [address] RBC (Bld) [#/Vol] 5.02 10*6/uL Normal 3.90-5.20 [facility] Reference Lab Comment on above: Performed By: #### N H3, MG1, CMP, CBCDIF, LI, VPA, XB12F #### [facility] Routine Lab [address] [place] [address] WBC (Bld) [#/Vol] 11.76 10*3/uL High 3.70-11.00 [facility] Reference Lab Comment on above: Performed By: #### N H3, MG1, CMP, CBCDIF, LI, VPA, XB12F #### [facility] Routine Lab [address] [place] [address] Comp Metabolic Panelon 02-08 Albumin [Mass/Vol] 4.5 g/dL Normal 3.9-4.9 [facility] Reference Lab Comment on above: Performed By: #### N H3, MG1, CMP, CBCDIF, LI, VPA, XB12F #### [facility] Routine Lab [address] [place] [phone] ALP [Catalytic activity/Vol] 59 U/L Normal 34-123 [facility] Reference Lab Comment on above: Performed By: #### N H3, MG1, CMP, CBCDIF, LI, VPA, XB12F #### [facility] Routine Lab [address] [place], [place] [address] ALT [Catalytic activity/Vol] 9 U/L Normal 7-38 [facility] Reference Lab Comment on above: Performed By: #### N H3, MG1, CMP, CBCDIF, LI, VPA, XB12F #### [facility] Routine Lab [address] [place] [address] Anion gap [Moles/Vol] 13 mmol/L Normal 9-18 [facility] Reference Lab Comment on above: Performed By: #### N H3, MG1, CMP, CBCDIF, LI, VPA, XB12F #### [facility] Routine Lab [address] [place] [phone] AST [Catalytic activity/Vol] 18 U/L Normal 13-35 [facility] Reference Lab Comment on above: Performed By: #### N H3, MG1, CMP, CBCDIF, LI, VPA, XB12F #### [facility] Routine Lab [address] [place] [address] Bilirubin Ql (U) 0.2 mg/dL Normal 0.2-1.3 [facility] Reference Lab Comment on above: Performed By: #### N H3, MG1, CMP, CBCDIF, LI, VPA, XB12F #### [facility] Routine Lab [address] [place] [address] Calcium [Mass/Vol] 9.2 mg/dL Normal 8.5-10.2 [facility] Reference Lab Comment on above: Performed By: #### N H3, MG1, CMP, CBCDIF, LI, VPA, XB12F #### [facility] Routine Lab [address] [place] [address] Chloride [Moles/Vol] 109 mmol/L High 97-105 [facility] Reference Lab Comment on above: Performed By: #### N H3, MG1, CMP, CBCDIF, LI, VPA, XB12F #### [facility] Routine Lab [address] [place] [address] CO2 [Moles/Vol] 21 mmol/L Low 22-30 [facility] Reference Lab Comment on above: Performed By: #### N H3, MG1, CMP, CBCDIF, LI, VPA, XB12F #### [facility] Routine Lab [address] [place], [place] [address] Creatinine [Mass/Vol] 0.75 mg/dL Normal 0.58-0.96 [facility] Reference Lab Comment on above: Performed By: #### N H3, MG1, CMP, CBCDIF, LI, VPA, XB12F #### [facility] Routine Lab [address] [place] [address] eGFR- Amer. >60 Normal [facility] Reference Lab Comment on above: Performed By: #### N H3, MG1, CMP, CBCDIF, LI, VPA, XB12F #### [facility] Routine Lab [address] [place], [place] [address] GFR/1.73 sq M predicted among non-blacks MDRD (S/P/Bld) [Vol rate/Area] mL/min/{1.73_m2} Normal [facility] Reference Lab Comment on above: Performed By: #### N H3, MG1, CMP, CBCDIF, LI, VPA, XB12F #### [facility] Routine Lab [address] [place] [address] Glucose [Mass/Vol] 63 mg/dL Low 74-99 [facility] Reference Lab Comment on above: Performed By: #### N H3, MG1, CMP, CBCDIF, LI, VPA, XB12F #### [facility] Routine Lab [address] [place], [place] [address] Potassium [Moles/Vol] 3.6 mmol/L Low 3.7-5.1 [facility] Reference Lab Comment on above: Performed By: #### N H3, MG1, CMP, CBCDIF, LI, VPA, XB12F #### [facility] Routine Lab [address] [place], [place] [address] Protein [Mass/Vol] 7.5 g/dL Normal 6.3-8.0 [facility] Reference Lab Comment on above: Performed By: #### N H3, MG1, CMP, CBCDIF, LI, VPA, XB12F #### [facility] Routine Lab [address] [place] [address] Sodium [Moles/Vol] 143 mmol/L Normal 136-144 [facility] Reference Lab Comment on above: Performed By: #### N H3, MG1, CMP, CBCDIF, LI, VPA, XB12F #### [facility] Routine Lab [address] [place] [address] Urea nitrogen [Mass/Vol] 7 mg/dL Normal 7-21 [facility] Reference Lab Comment on above: Performed By: #### N H3, MG1, CMP, CBCDIF, LI, VPA, XB12F #### [facility] Routine Lab [address] [place] [address] Lithiumon 02-08-2021 [place] [Moles/Vol] 0.7 mmol/L Normal 0.6-1.2 [facility] Reference Lab Comment on above: Performed By: #### N H3, MG1, CMP, CBCDIF, LI, VPA, XB12F #### [facility] Routine Lab [address] [place] [address] Magnesiumon 02-08-2021 Magnesium [Mass/Vol] 2.2 mg/dL Normal 1.7-2.3 [facility] Reference Lab Comment on above: Performed By: #### N H3, MG1, CMP, CBCDIF, LI, VPA, XB12F #### [facility] Routine Lab [address] [address] Valproic Acidon 02-08-2021 Valproic Acid 144.8 ug/mL High 50-100 [facility] Reference Lab Comment on above: Performed By: #### N H3, MG1, CMP, CBCDIF, LI, VPA, XB12F #### [facility] Routine Lab [address] [address] Vit B12 / Folate For Ref Lab Use Onlyon 02-08-2021 Cobalamin (Vitamin B12) [Mass/Vol] 502 pg/mL Normal 232-1245 [facility] Lab Comment on above: Performed By: #### N H3, MG1, CMP, CBCDIF, LI, VPA, XB12F #### [facility] Routine Lab [address] [place], [place] [address] Folate [Mass/Vol] 9.1 ng/mL Normal >4.7 [facility] Reference Lab Comment on above: Performed By: #### N H3, MG1, CMP, CBCDIF, LI, VPA, XB12F #### [facility] Routine Lab [address] [place], [place] [address] Comp Metabolic Panelon 08-14 Albumin [Mass/Vol] 4.2 g/dL Normal 3.9-4.9 [facility] Lab Comment on above: Performed By: #### C VJ GARCIA #### [facility] Routine Lab [address] [place], [place] [address] ALP [Catalytic activity/Vol] 61 U/L Normal 34-123 [facility] Reference Lab Comment on above: Performed By: #### Bipin GARCIA LI #### [facility] Routine Lab [address] [place], [place] [address] ALT [Catalytic activity/Vol] 10 U/L Normal 7-38 [facility] Reference Lab Comment on above: Performed By: #### C RADHA, LI #### [facility] Routine Lab [address] [place], [place] [address] Anion gap [Moles/Vol] 11 mmol/L Normal 9-18 [facility] Reference Lab Comment on above: Performed By: #### Bipin GARCIA LI #### [facility] Routine Lab [address] [place], [place] [address] AST [Catalytic activity/Vol] 21 U/L Normal 13-35 [facility] Reference Lab Comment on above: Performed By: #### C MP, LI #### [facility] Routine Lab [address] [place], [place] [address] Bilirubin Ql (U) 0.2 mg/dL Normal 0.2-1.3 [facility] Reference Lab Comment on above: Performed By: #### C MP, LI #### [facility] Routine Lab [address] [place], [place] [address] Calcium [Mass/Vol] 9.1 mg/dL Normal 8.5-10.2 [facility] Comment on above: Performed By: #### C MP, LI #### [facility] Routine Lab [address] [address] Chloride [Moles/Vol] 106 mmol/L High 97-105 [facility] Reference Lab Comment on above: Performed By: #### C MP, LI #### [facility] Routine Lab [address] [address] CO2 [Moles/Vol] 23 mmol/L Normal 22-30 [facility] Reference Lab Comment on above: Performed By: #### C MP, LI #### [facility] Routine Lab [address] [address] Creatinine [Mass/Vol] 0.75 mg/dL Normal 0.58-0.96 [facility] Reference Lab Comment on above: Performed By: #### C RADHA, LI #### [facility] Routine Lab [address] [id number] eGFR- Amer. >60 Normal [facility] Comment on above: Performed By: #### C MP, LI #### [facility] Routine Lab [address] [address] GFR/1.73 sq M predicted among non-blacks MDRD (S/P/Bld) [Vol rate/Area] mL/min/{1.73_m2} Normal [facility] Reference Lab Comment on above: Performed By: #### C MP, LI #### [facility] Routine Lab [address] [place], [place] [address] Glucose [Mass/Vol] 73 mg/dL Low 74-99 [facility] Comment on above: Performed By: #### C RADHA, LI #### [facility] Routine Lab [address] [place], [place] [address] Potassium [Moles/Vol] 3.7 mmol/L Normal 3.7-5.1 [facility] Reference [facility] Comment on above: Performed By: #### C RADHA, LI #### [facility] Routine Lab [address] [place], [place] [address] Protein [Mass/Vol] 7.0 g/dL Normal 6.3-8.0 [facility] Comment on above: Performed By: #### C RADHA, LI #### [facility] Routine Lab [address] [place], [place] [address] Sodium [Moles/Vol] 140 mmol/L Normal 136-144 [facility] Comment on above: Performed By: #### C RADHA, LI #### [facility] Routine Lab [address] [place], [place] [address] Urea nitrogen [Mass/Vol] 7 mg/dL Normal 7-21 [facility] Reference [facility] Comment on above: Performed By: #### C RADHA, LI #### [facility] Routine Lab [address] [place], [place] [address] Lithiumon 08-14-2020 [place] [Moles/Vol] mmol/L Low 0.6-1.2 [facility] Reference Lab Comment on above: Performed By: #### C RADHA, LI #### [facility] Routine Lab [address] [place], [place] [address] NM THY CA UPTAKEon 0 NM THY CA UPTAKE * * *Final Report* * * DATE OF EXAM: May 01 2020 9:42AM FVN 0079 - NM THY CA UPTAKE / 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 TECHNIQUE: 2.0 mCi I-123 sodium iodide po followed by neck uptake measurements and scan of the neck. Whole body imaging was also performed. RESULT: The 18.8 hour neck uptake is 23.17%. There is a focus of moderately intense I-123 activity in the right anterior neck. Coregistration of SPECT with CT images demonstrate that this activity is associated with soft tissues in the right thyroid bed (fused image #21). These findings are consistent with radioiodine avid residual thyroid tissue. Another smaller and much less intense focus of I-123 activity is seen just superior to this. Coregistration of SPECT with CT images demonstrate that this activity is associated with soft tissues of the superficial anterior neck just to the right of midline at the level of the thyroid cartilage (fused image #18), likely representing radioiodine avid thyroglossal duct. No abnormal areas of I-123 uptake to suggest the presence of distant functional thyroid metastases. IMPRESSION: RESIDUAL RADIOIODINE AVID TISSUES IN THE NECK, DESCRIBED. NO EVIDENCE FOR DISTANT FUNCTIONAL THYROID METASTASES. Advertising Copywriter: PSCB Transcribe Date/Time: May 01 2020 9:59A Dictated by : IKER SILVA MD This examination was interpreted and the report reviewed and electronically signed by: IKER SILVA MD on May 01 2020 10:32AM EST [id number] [facility] THY CA WBon 05-01-2020 RI THY CA WB * * *Final Report* * * DATE OF EXAM: May 01 2020 9:42AM N 0080 - RI THY CA WB / PROCEDURE REASON: Malignant neoplasm of thyroid gland (HCC) * * * * Physician Interpretation * * * * I-123 NECK UPTAKE AND SCAN; WHOLE BODY I-123 SCAN: HISTORY: Thyroid cancer. TECHNIQUE: 2.0 mCi I-123 sodium iodide po followed by neck uptake measurements and scan of the neck. Whole body imaging was also performed. RESULT: The 18.8 hour neck uptake is 23.17%. There is a focus of moderately intense I-123 activity in the right anterior neck. Coregistration of SPECT with CT images demonstrate that this activity is associated with soft tissues in the right thyroid bed (fused image #21). These findings are consistent with radioiodine avid residual thyroid tissue. Another smaller and much less intense focus of I-123 activity is seen just superior to this. Coregistration of SPECT with CT images demonstrate that this activity is associated with soft tissues of the superficial anterior neck just to the right of midline at the level of the thyroid cartilage (fused image #18), likely representing radioiodine avid thyroglossal duct. No abnormal areas of I-123 uptake to suggest the presence of distant functional thyroid metastases. IMPRESSION: RESIDUAL RADIOIODINE AVID TISSUES IN THE NECK, DESCRIBED. NO EVIDENCE FOR DISTANT FUNCTIONAL THYROID METASTASES. Advertising Copywriter: PSCB Transcribe Date/Time: May 01 2020 9:59A Dictated by : IKER SILVA MD This examination was interpreted and the report reviewed and electronically signed by: IKER SILVA MD on May 01 2020 10:32AM EST [id number] [facility] NM TUMOR SPECTon 05-01-2020 NM TUMOR SPECT * * *Final Report* * * DATE OF EXAM: May 01 2020 10:14AM N 0055 - NM TUMOR SPECT / PROCEDURE REASON: Malignant neoplasm of thyroid gland (HCC) * * * * Physician Interpretation * * * * I-123 NECK UPTAKE AND SCAN; WHOLE BODY I-123 SCAN: HISTORY: Thyroid cancer. TECHNIQUE: 2.0 mCi I-123 sodium iodide po followed by neck uptake measurements and scan of the neck. Whole body imaging was also performed. RESULT: The 18.8 hour neck uptake is 23.17%. There is a focus of moderately intense I-123 activity in the right anterior neck. Coregistration of SPECT with CT images demonstrate that this activity is associated with soft tissues in the right thyroid bed (fused image #21). These findings are consistent with radioiodine avid residual thyroid tissue. Another smaller and much less intense focus of I-123 activity is seen just superior to this. Coregistration of SPECT with CT images demonstrate that this activity is associated with soft tissues of the superficial anterior neck just to the right of midline at the level of the thyroid cartilage (fused image #18), likely representing radioiodine avid thyroglossal duct. No abnormal areas of I-123 uptake to suggest the presence of distant functional thyroid metastases. IMPRESSION: RESIDUAL RADIOIODINE AVID TISSUES IN THE NECK, DESCRIBED. NO EVIDENCE FOR DISTANT FUNCTIONAL THYROID METASTASES. Advertising Copywriter: PSCKeke Transcribe Date/Time: May 01 2020 9:59A Dictated by : IKER SILVA MD This examination was interpreted and the report reviewed and electronically signed by: IKER SILVA MD on May 01 2020 10:32AM EST [id number] Normal [facility] Metabolic Panelon 01-24 Albumin [Mass/Vol] 4.7 g/dL Normal 3.9-4.9 [facility] Comment on above: Performed By: #### VJ Voss MP #### [facility] Routine Lab [address] [address] ALP [Catalytic activity/Vol] 65 U/L Normal 34-123 [facility] Reference Lab Comment on above: Performed By: #### VJ Voss MP #### [facility] Routine Lab [address] [address] ALT [Catalytic activity/Vol] 11 U/L Normal 7-38 [facility] Reference Lab Comment on above: Performed By: #### VJ Voss MP #### [facility] Routine Lab [address] [id number] Anion gap [Moles/Vol] 12 mmol/L Normal 9-18 [facility] Reference Lab Comment on above: Performed By: #### VJ Voss MP #### [facility] Routine Lab [address] [id number] AST [Catalytic activity/Vol] 21 U/L Normal 13-35 [facility] Reference Lab Comment on above: Performed By: #### VJ Voss MP #### [facility] Routine Lab [address] [address] Bilirubin Ql (U) 0.3 mg/dL Normal 0.2-1.3 [facility] Reference Lab Comment on above: Performed By: #### VJ Voss MP #### [facility] Routine Lab [address] [place], [place] [address] Calcium [Mass/Vol] 9.4 mg/dL Normal 8.5-10.2 [facility] Comment on above: Performed By: #### C RADHA, LI #### [facility] Routine Lab [address] [place], [place] [address] Chloride [Moles/Vol] 103 mmol/L Normal 97-105 [facility] Reference Lab Comment on above: Performed By: #### C RADHA, LI #### [facility] Routine Lab [address] [address] CO2 [Moles/Vol] 23 mmol/L Normal 22-30 [facility] Reference Lab Comment on above: Performed By: #### C RADHA, LI #### [facility] Routine Lab [address] [address] Creatinine [Mass/Vol] 0.86 mg/dL Normal 0.58-0.96 [facility] Reference Lab Comment on above: Performed By: #### C RADHA, LI #### [facility] Routine Lab [address] [address] eGFR- Amer. >60 Normal [facility] Comment on above: Performed By: #### C RADHA, LI #### [facility] Routine Lab [address] [address] GFR/1.73 sq M predicted among non-blacks MDRD (S/P/Bld) [Vol rate/Area] mL/min/{1.73_m2} Normal [facility] Lab Comment on above: Performed By: #### C RADHA, LI #### [facility] Routine Lab [address] [address] Glucose [Mass/Vol] 77 mg/dL Normal 74-99 [facility] Comment on above: Performed By: #### C RADHA, LI #### [facility] Routine Lab [address] [address] Potassium [Moles/Vol] 4.3 mmol/L Normal 3.7-5.1 [facility] Lab Comment on above: Performed By: #### C RADHA, LI #### [facility] Routine Lab [address] [place], [place] [address] Protein [Mass/Vol] 7.2 g/dL Normal 6.3-8.0 [facility] Comment on above: Performed By: #### C RADHA, LI #### [facility] Routine Lab [address] [address] Sodium [Moles/Vol] 138 mmol/L Normal 136-144 [facility] Comment on above: Performed By: #### C RADHA, LI #### [facility] Routine Lab [address] [address] Urea nitrogen [Mass/Vol] 9 mg/dL Normal 7-21 [facility] Reference Lab Comment on above: Performed By: #### C RADHA, LI #### [facility] Routine Lab [address] [address] Lithiumon 01-25-2020 [place] [Moles/Vol] 0.9 mmol/L Normal 0.6-1.2 [facility] Reference Lab Comment on above: Performed By: #### C RADHA, LI #### [facility] Routine Lab [address] [phone] Vital Signs Date Time Vital Sign Value Performing Clinician Facility 03-02-2025 08:41-0400 Body mass index (BMI) [Ratio] 31.88 kg/m2 Carlie Brownlee APRN.CNP Work Phone: [facility] 03-02-2025 08:41-0400 Body weight 86.9 kg Carlie Brownlee APRN.CNP Work Phone: [facility] 03-02-2025 08:41-0400 Heart rate 87 /min Carlie Brownlee APRN.CNP Work Phone: [facility] 03-02-2025 08:41-0400 SaO2% (BldA) [Mass fraction] 97 % Carlie Brownlee UNLOADER OPERATOR.STATISTICAL FINANCIAL ANALYST Work Phone: [facility] 01-05-2025 08:19-0500 Body mass index (BMI) [Ratio] 32.21 kg/m2 Tomas Moomaw UNLOADER OPERATOR.STATISTICAL FINANCIAL ANALYST Work Phone: [facility] 01-05-2025 08:19-0500 Body temperature 98.01 [degF] Tomas Moomaw UNLOADER OPERATOR.STATISTICAL FINANCIAL ANALYST Work Phone: [facility] 01-05-2025 08:19-0500 Body weight 87.8 kg Tomas Moomaw UNLOADER OPERATOR.STATISTICAL FINANCIAL ANALYST Work Phone: [facility] 01-05-2025 08:19-0500 Diastolic blood pressure 79 mm[Hg] Tomas Moomaw UNLOADER OPERATOR.STATISTICAL FINANCIAL ANALYST Work Phone: [facility] 01-05-2025 08:19-0500 Heart rate 84 /min Tomas Moomaw UNLOADER OPERATOR.STATISTICAL FINANCIAL ANALYST Work Phone: [facility] 01-05-2025 08:19-0500 Respiratory rate 18 /min Tomas Moomaw UNLOADER OPERATOR.STATISTICAL FINANCIAL ANALYST Work Phone: [facility] 01-05-2025 08:19-0500 SaO2% (BldA) [Mass fraction] 99 % Tomas Moomaw UNLOADER OPERATOR.STATISTICAL FINANCIAL ANALYST Work Phone: [facility] 01-05-2025 08:19-0500 Systolic blood pressure 115 mm[Hg] Tomas Moomaw UNLOADER OPERATOR.STATISTICAL FINANCIAL ANALYST Work Phone: [facility] 12-15-2024 13:44-0500 Body mass index (BMI) [Ratio] 32.62 kg/m2 Renard Almodovar UNLOADER OPERATOR.STATISTICAL FINANCIAL ANALYST Work Phone: [facility] 12-15-2024 13:44-0500 Body weight 88.91 kg Renard Almodovar UNLOADER OPERATOR.STATISTICAL FINANCIAL ANALYST Work Phone: [facility] 12-15-2024 13:44-0500 Diastolic blood pressure 88 mm[Hg] Renard Almodovar UNLOADER OPERATOR.STATISTICAL FINANCIAL ANALYST Work Phone: [facility] 12-15-2024 13:44-0500 Heart rate 75 /min Renard Regan UNLOADER OPERATOR.STATISTICAL FINANCIAL ANALYST Work Phone: [facility] 12-15-2024 13:44-0500 Respiratory rate 14 /min Renard Almodovar UNLOADER OPERATOR.STATISTICAL FINANCIAL ANALYST Work Phone: [facility] 12-15-2024 13:44-0500 Systolic blood pressure 154 mm[Hg] Renard Almodovar UNLOADER OPERATOR.STATISTICAL FINANCIAL ANALYST Work Phone: [facility] 11-02-2024 09:15-0500 Body mass index (BMI) [Ratio] 30.87 kg/m2 Renard Almodovar UNLOADER OPERATOR.STATISTICAL FINANCIAL ANALYST Work Phone: [facility] 11-02-2024 09:15-0500 Body weight 85.28 kg Renard Almodovar UNLOADER OPERATOR.STATISTICAL FINANCIAL ANALYST Work Phone: [facility] 11-02-2024 09:15-0500 Diastolic blood pressure 85 mm[Hg] Renard Almodovar UNLOADER OPERATOR.STATISTICAL FINANCIAL ANALYST Work Phone: [facility] 11-02-2024 09:15-0500 Heart rate 112 /min Renard Almodovar UNLOADER OPERATOR.STATISTICAL FINANCIAL ANALYST Work Phone: [facility] 11-02-2024 09:15-0500 Systolic blood pressure 125 mm[Hg] Renard Almodovar UNLOADER OPERATOR.STATISTICAL FINANCIAL ANALYST Work Phone: [facility] 10-26-2024 08:19-0500 Diastolic blood pressure 100 mm[Hg] Christine Dean PA-C Work Phone: [facility] 10-26-2024 08:19-0500 Heart rate 80 /min Christine Dean PA-C Work Phone: [facility] 10-26-2024 08:19-0500 Systolic blood pressure 140 mm[Hg] Christine Dean PA-C Work Phone: [facility] 10-26-2024 07:18-0500 Body mass index (BMI) [Ratio] 32.02 kg/m2 Christine WILCOX-C Work Phone: [facility] 10-26-2024 07:18-0500 Body temperature 97.39 [degF] Christine Dean PA-C Work Phone: [facility] 10-26-2024 07:18-0500 Body weight 88.45 kg Christine Dean PA-C Work Phone: [facility] 10-26-2024 07:18-0500 Respiratory rate 18 /min Christine Dean PA-C Work Phone: [facility] 10-26-2024 07:18-0500 SaO2% (BldA) [Mass fraction] 99 % Christine Dean PA-C Work Phone: [facility] 10-18-2024 16:16-0500 Body mass index (BMI) [Ratio] 32.08 kg/m2 La Praisler-Wood UNLOADER OPERATOR.STATISTICAL FINANCIAL ANALYST Work Phone: [facility] 10-18-2024 16:16-0500 Body temperature 98.2 [degF] La Praisler-Wood UNLOADER OPERATOR.STATISTICAL FINANCIAL ANALYST Work Phone: [facility] 10-18-2024 16:16-0500 Body weight 88.6 kg La Praisler-Wood UNLOADER OPERATOR.STATISTICAL FINANCIAL ANALYST Work Phone: [facility] 10-18-2024 16:16-0500 Diastolic blood pressure 76 mm[Hg] La Praisler-Wood UNLOADER OPERATOR.STATISTICAL FINANCIAL ANALYST Work Phone: [facility] 10-18-2024 16:16-0500 Heart rate 77 /min La Praisler-Wood UNLOADER OPERATOR.STATISTICAL FINANCIAL ANALYST Work Phone: [facility] 10-18-2024 16:16-0500 Respiratory rate 18 /min La Praisler-Wood UNLOADER OPERATOR.STATISTICAL FINANCIAL ANALYST Work Phone: [facility] 10-18-2024 16:16-0500 SaO2% (BldA) [Mass fraction] 98 % La Praisler-Wood UNLOADER OPERATOR.STATISTICAL FINANCIAL ANALYST Work Phone: [facility] 10-18-2024 16:16-0500 Systolic blood pressure 118 mm[Hg] La Paiz UNLOADER OPERATOR.STATISTICAL FINANCIAL ANALYST Work Phone: [facility] 09-29-2024 15:40-0500 Body mass index (BMI) [Ratio] 31.13 kg/m2 Karen Jones UNLOADER OPERATOR.STATISTICAL FINANCIAL ANALYST Work Phone: [facility] 09-29-2024 15:40-0500 Body temperature 98.01 [degF] Karen Jones UNLOADER OPERATOR.STATISTICAL FINANCIAL ANALYST Work Phone: [facility] 09-29-2024 15:40-0500 Body weight 86 kg Karen Jones UNLOADER OPERATOR.STATISTICAL FINANCIAL ANALYST Work Phone: [facility] 09-29-2024 15:40-0500 Diastolic blood pressure 80 mm[Hg] Karen Jones UNLOADER OPERATOR.STATISTICAL FINANCIAL ANALYST Work Phone: [facility] 09-29-2024 15:40-0500 Heart rate 60 /min Karen Jones UNLOADER OPERATOR.STATISTICAL FINANCIAL ANALYST Work Phone: [facility] 09-29-2024 15:40-0500 Respiratory rate 20 /min Karen Jones UNLOADER OPERATOR.STATISTICAL FINANCIAL ANALYST Work Phone: [facility] 09-29-2024 15:40-0500 SaO2% (BldA) [Mass fraction] 99 % Karen Jones UNLOADER OPERATOR.STATISTICAL FINANCIAL ANALYST Work Phone: [facility] 09-29-2024 15:40-0500 Systolic blood pressure 131 mm[Hg] Karen Jones UNLOADER OPERATOR.STATISTICAL FINANCIAL ANALYST Work Phone: [facility] 09-21-2024 10:40-0400 Body mass index (BMI) [Ratio] 31.36 kg/m2 Renard Almodovar UNLOADER OPERATOR.STATISTICAL FINANCIAL ANALYST Work Phone: [facility] 09-21-2024 10:40-0400 Body weight 86.64 kg Renard Almodovar UNLOADER OPERATOR.STATISTICAL FINANCIAL ANALYST Work Phone: [facility] 09-21-2024 10:40-0400 Diastolic blood pressure 81 mm[Hg] Renard Almodovar UNLOADER OPERATOR.STATISTICAL FINANCIAL ANALYST Work Phone: [facility] 09-21-2024 10:40-0400 Heart rate 78 /min Renard Almodovar UNLOADER OPERATOR.STATISTICAL FINANCIAL ANALYST Work Phone: [facility] 09-21-2024 10:40-0400 Respiratory rate 14 /min Renard Almodovar UNLOADER OPERATOR.STATISTICAL FINANCIAL ANALYST Work Phone: [facility] 09-21-2024 10:40-0400 Systolic blood pressure 123 mm[Hg] Renard Almodovar UNLOADER OPERATOR.STATISTICAL FINANCIAL ANALYST Work Phone: [facility] 09-15-2024 07:21-0400 Body mass index (BMI) [Ratio] 31.5 kg/m2 Shannon Athy PA-C Work Phone: [facility] 09-15-2024 07:21-0400 Body temperature 97 [degF] Shannon Athy PA-C Work Phone: [facility] 09-15-2024 07:21-0400 Body weight 87 kg Shannon Athy PA-C Work Phone: [facility] 09-15-2024 07:21-0400 Diastolic blood pressure 91 mm[Hg] Shannon Athy PA-C Work Phone: [facility] 09-15-2024 07:21-0400 Heart rate 81 /min Shannon Athy PA-C Work Phone: [facility] 09-15-2024 07:21-0400 Respiratory rate 18 /min Shannon Athy PA-C Work Phone: [facility] 09-15-2024 07:21-0400 SaO2% (BldA) [Mass fraction] 99 % Shannon Athy PA-C Work Phone: [facility] 09-15-2024 07:21-0400 Systolic blood pressure 137 mm[Hg] Shannon Athy PA-C Work Phone: [facility] 06-19-2024 13:11-0400 Body mass index (BMI) [Ratio] 30.22 kg/m2 Nagi Red MD Work Phone: [facility] 06-19-2024 13:11-0400 Body weight 83.46 kg Nagi Red MD Work Phone: [facility] 06-19-2024 13:11-0400 Diastolic blood pressure 90 mm[Hg] Nagi Red MD Work Phone: [facility] 06-19-2024 13:11-0400 Heart rate 64 /min Nagi Red MD Work Phone: [facility] 06-19-2024 13:11-0400 Systolic blood pressure 138 mm[Hg] Nagi Red MD Work Phone: [facility] 05-12-2024 13:45-0400 Body mass index (BMI) [Ratio] 30.71 kg/m2 Sakshi Podlogar UNLOADER OPERATOR.STATISTICAL FINANCIAL ANALYST Work Phone: [facility] 05-12-2024 13:45-0400 Body weight 84.82 kg Sakshi Podlogar UNLOADER OPERATOR.STATISTICAL FINANCIAL ANALYST Work Phone: [facility] 05-12-2024 13:45-0400 Diastolic blood pressure 70 mm[Hg] Sakshi Podlogar UNLOADER OPERATOR.STATISTICAL FINANCIAL ANALYST Work Phone: [facility] 05-12-2024 13:45-0400 Heart rate 84 /min Sakshi Podlogar UNLOADER OPERATOR.STATISTICAL FINANCIAL ANALYST Work Phone: [facility] 05-12-2024 13:45-0400 Respiratory rate 16 /min Sakshi Podlogar UNLOADER OPERATOR.STATISTICAL FINANCIAL ANALYST Work Phone: [facility] 05-12-2024 13:45-0400 SaO2% (BldA) [Mass fraction] 98 % Sakshi Podlogar UNLOADER OPERATOR.STATISTICAL FINANCIAL ANALYST Work Phone: [facility] 05-12-2024 13:45-0400 Systolic blood pressure 124 mm[Hg] Sakshi Podlogar UNLOADER OPERATOR.STATISTICAL FINANCIAL ANALYST Work Phone: [facility] 05-01-2024 11:53-0400 Body height 165.1 cm Tawanna Rivera MD Work Phone: [facility] 05-01-2024 11:53-0400 Body mass index (BMI) [Ratio] 31.6 kg/m2 Tawanna Rivera MD Work Phone: [facility] 05-01-2024 11:53-0400 Body temperature 97.5 [degF] Tawanna Rivera MD Work Phone: [facility] 05-01-2024 11:53-0400 Body weight 86.14 kg Tawanna Rivera MD Work Phone: [facility] 05-01-2024 11:53-0400 Diastolic blood pressure 79 mm[Hg] Tawanna Rivera MD Work Phone: [facility] 05-01-2024 11:53-0400 Heart rate 76 /min Tawanna Rivera MD Work Phone: [facility] 05-01-2024 11:53-0400 Respiratory rate 16 /min Tawanna Rivera MD Work Phone: [facility] 05-01-2024 11:53-0400 SaO2% (BldA) [Mass fraction] 99 % Tawanna Rivera MD Work Phone: [facility] 05-01-2024 11:53-0400 Systolic blood pressure 136 mm[Hg] Tawanna Rivera MD Work Phone: [facility] 04-26-2024 11:22-0400 Body height 166.2 cm Pulm Wstr Work Phone: [facility] 04-26-2024 11:22-0400 Body mass index (BMI) [Ratio] 30.38 kg/m2 Pulm Wstr Work Phone: [facility] 04-26-2024 11:22-0400 Body weight 83.92 kg Pulm Wstr Work Phone: [facility] 04-26-2024 11:22-0400 Heart rate 91 /min Pulm Wstr Work Phone: [facility] 04-26-2024 11:22-0400 Respiratory rate 14 /min Pulm Wstr Work Phone: [facility] 04-26-2024 11:22-0400 SaO2% (BldA) [Mass fraction] 96 % Pulm Wstr Work Phone: [facility] 04-25-2024 11:11-0400 Body mass index (BMI) [Ratio] 30.62 kg/m2 Nagi Red MD Work Phone: [facility] 04-25-2024 11:11-0400 Body weight 83.46 kg Nagi Red MD Work Phone: [facility] 04-25-2024 11:11-0400 Diastolic blood pressure 96 mm[Hg] Nagi Red MD Work Phone: [facility] 04-25-2024 11:11-0400 Heart rate 84 /min Nagi Red MD Work Phone: [facility] 04-25-2024 11:11-0400 Respiratory rate 16 /min Nagi Red MD Work Phone: [facility] 04-25-2024 11:11-0400 Systolic blood pressure 138 mm[Hg] Nagi Red MD Work Phone: [facility] 03-25-2024 08:49-0400 Body mass index (BMI) [Ratio] 30.79 kg/m2 Nagi Red MD Work Phone: [facility] 03-25-2024 08:49-0400 Body weight 83.92 kg Nagi Red MD Work Phone: [facility] 03-25-2024 08:49-0400 Diastolic blood pressure 88 mm[Hg] Nagi Red MD Work Phone: [facility] 03-25-2024 08:49-0400 Heart rate 115 /min Nagi Red MD Work Phone: [facility] 03-25-2024 08:49-0400 Respiratory rate 12 /min Nagi Red MD Work Phone: [facility] 03-25-2024 08:49-0400 SaO2% (BldA) [Mass fraction] 98 % Nagi Red MD Work Phone: [facility] 03-25-2024 08:49-0400 Systolic blood pressure 132 mm[Hg] Nagi Red MD Work Phone: [facility] 01-11-2024 08:53-0500 Heart rate 88 /min Galilea Bogner PA-C Work Phone: [facility] 01-11-2024 08:42-0500 Body temperature 98.1 [degF] Galilea Bogner PA-C Work Phone: [facility] 01-11-2024 08:42-0500 Body weight 86.18 kg Galilea Bogner PA-C Work Phone: [facility] 01-11-2024 08:42-0500 Diastolic blood pressure 82 mm[Hg] Galilea Bogner PA-C Work Phone: [facility] 01-11-2024 08:42-0500 Respiratory rate 16 /min Galilea Bogner PA-C Work Phone: [facility] 01-11-2024 08:42-0500 SaO2% (BldA) [Mass fraction] 98 % Galilea Bogner PA-C Work Phone: [facility] 01-11-2024 08:42-0500 Systolic blood pressure 124 mm[Hg] Galilea Bogner PA-C Work Phone: [facility] 01-07-2024 11:10-0500 Body temperature 98.2 [degF] Krislyishmael Aberegg PA Work Phone: [facility] 01-07-2024 11:10-0500 Body weight 87.45 kg Krislyn Aberegg PA Work Phone: [facility] 01-07-2024 11:10-0500 Diastolic blood pressure 92 mm[Hg] Krislyn Aberegg PA Work Phone: [facility] 01-07-2024 11:10-0500 Heart rate 80 /min Krislyn Aberegg PA Work Phone: [facility] 01-07-2024 11:10-0500 Respiratory rate 18 /min Krislyn Aberegg PA Work Phone: [facility] 01-07-2024 11:10-0500 SaO2% (BldA) [Mass fraction] 98 % Krislyn Aberegg PA Work Phone: [facility] 01-07-2024 11:10-0500 Systolic blood pressure 127 mm[Hg] Krislyn Aberegg PA Work Phone: [facility] 10-04-2023 08:56-0500 Body temperature 98.1 [degF] La Praisler-Wood UNLOADER OPERATOR.STATISTICAL FINANCIAL ANALYST Work Phone: [facility] 10-04-2023 08:56-0500 Body weight 88 kg La Praisler-Wood UNLOADER OPERATOR.STATISTICAL FINANCIAL ANALYST Work Phone: [facility] 10-04-2023 08:56-0500 Diastolic blood pressure 64 mm[Hg] La Praisler-Wood UNLOADER OPERATOR.STATISTICAL FINANCIAL ANALYST Work Phone: [facility] 10-04-2023 08:56-0500 Heart rate 86 /min La Praisler-Wood UNLOADER OPERATOR.STATISTICAL FINANCIAL ANALYST Work Phone: [facility] 10-04-2023 08:56-0500 Respiratory rate 20 /min La Praisler-Wood UNLOADER OPERATOR.STATISTICAL FINANCIAL ANALYST Work Phone: [facility] 10-04-2023 08:56-0500 SaO2% (BldA) [Mass fraction] 98 % La Praisler-Wood UNLOADER OPERATOR.STATISTICAL FINANCIAL ANALYST Work Phone: [facility] 10-04-2023 08:56-0500 Systolic blood pressure 102 mm[Hg] La Paiz UNLOADER OPERATOR.STATISTICAL FINANCIAL ANALYST Work Phone: [facility] 06-08-2023 10:25-0400 Body weight 91.35 kg Carlie Brownlee UNLOADER OPERATOR.STATISTICAL FINANCIAL ANALYST Work Phone: [facility] 06-08-2023 10:25-0400 Heart rate 113 /min Carlie Brownlee UNLOADER OPERATOR.STATISTICAL FINANCIAL ANALYST Work Phone: [facility] 06-08-2023 10:25-0400 SaO2% (BldA) [Mass fraction] 98 % Carlie Brownlee UNLOADER OPERATOR.STATISTICAL FINANCIAL ANALYST Work Phone: [facility] 04-27-2023 10:05-0400 Body weight 95.71 kg Renard Almodovar UNLOADER OPERATOR.STATISTICAL FINANCIAL ANALYST Work Phone: [facility] 04-27-2023 10:05-0400 Diastolic blood pressure 86 mm[Hg] Renard Almodovar UNLOADER OPERATOR.STATISTICAL FINANCIAL ANALYST Work Phone: [facility] 04-27-2023 10:05-0400 Heart rate 100 /min Renard Almodovar UNLOADER OPERATOR.STATISTICAL FINANCIAL ANALYST Work Phone: [facility] 04-27-2023 10:05-0400 Respiratory rate 16 /min Renard Almodovar UNLOADER OPERATOR.STATISTICAL FINANCIAL ANALYST Work Phone: [facility] 04-27-2023 10:05-0400 Systolic blood pressure 122 mm[Hg] Renard Almodovar UNLOADER OPERATOR.STATISTICAL FINANCIAL ANALYST Work Phone: [facility] 03-03-2023 11:04-0400 Diastolic blood pressure 90 mm[Hg] Nagi Red MD Work Phone: [facility] 03-03-2023 11:04-0400 Systolic blood pressure 116 mm[Hg] Nagi Red MD Work Phone: [facility] 03-03-2023 10:20-0400 Body weight 89.36 kg Nagi Red MD Work Phone: [facility] 03-03-2023 10:20-0400 Heart rate 86 /min Nagi Red MD Work Phone: [facility] 02-12-2023 14:13-0400 Diastolic blood pressure 98 mm[Hg] Flaco Contreras MD Work Phone: [facility] 02-12-2023 14:13-0400 Heart rate 95 /min Flaco Contreras MD Work Phone: [facility] 02-12-2023 14:13-0400 Respiratory rate 16 /min Flaco Contreras MD Work Phone: [facility] 02-12-2023 14:13-0400 SaO2% (BldA) [Mass fraction] 98 % Flaco Contreras MD Work Phone: [facility] 02-12-2023 14:13-0400 Systolic blood pressure 144 mm[Hg] Flaco Contreras MD Work Phone: [facility] 02-12-2023 13:56-0400 Body temperature 97 [degF] Flaco Contreras MD Work Phone: [facility] 02-12-2023 12:59-0400 Body height 165.1 cm Flaco Contreras MD Work Phone: [facility] 02-12-2023 12:59-0400 Body weight 87.54 kg Flaco Contreras MD Work Phone: [facility] 01-22-2023 09:18-0500 Body temperature 97.81 [degF] Nagi Ku UNLOADER OPERATOR.STATISTICAL FINANCIAL ANALYST Work Phone: [facility] 01-22-2023 09:18-0500 Body weight 87.54 kg Nagi Ku UNLOADER OPERATOR.STATISTICAL FINANCIAL ANALYST Work Phone: [facility] 01-22-2023 09:18-0500 Diastolic blood pressure 102 mm[Hg] Nagi Ku UNLOADER OPERATOR.STATISTICAL FINANCIAL ANALYST Work Phone: [facility] 01-22-2023 09:18-0500 Heart rate 94 /min Nagi Ku UNLOADER OPERATOR.STATISTICAL FINANCIAL ANALYST Work Phone: [facility] 01-22-2023 09:18-0500 Respiratory rate 18 /min Nagi Ku UNLOADER OPERATOR.STATISTICAL FINANCIAL ANALYST Work Phone: [facility] 01-22-2023 09:18-0500 SaO2% (BldA) [Mass fraction] 99 % Nagi Kings UNLOADER OPERATOR.STATISTICAL FINANCIAL ANALYST Work Phone: [facility] 01-22-2023 09:18-0500 Systolic blood pressure 156 mm[Hg] Nagi Ku UNLOADER OPERATOR.STATISTICAL FINANCIAL ANALYST Work Phone: [facility] 09-16-2022 10:48-0400 Body height 165.1 cm Tawanna Rivera MD Work Phone: [facility] 09-16-2022 10:48-0400 Body mass index (BMI) [Ratio] 30.92 kg/m2 Tawanna Rivera MD Work Phone: [facility] 09-16-2022 10:48-0400 Body temperature 98.29 [degF] Tawanna Rivera MD Work Phone: [facility] 09-16-2022 10:48-0400 Body weight 84.28 kg Tawanna Rivera MD Work Phone: [facility] 09-16-2022 10:48-0400 Diastolic blood pressure 86 mm[Hg] Tawanna Rivera MD Work Phone: [facility] 09-16-2022 10:48-0400 Heart rate 88 /min Tawanna Rivera MD Work Phone: [facility] 09-16-2022 10:48-0400 Respiratory rate 16 /min Tawanna Rivera MD Work Phone: [facility] 09-16-2022 10:48-0400 SaO2% (BldA) [Mass fraction] 99 % Tawanna Rivera MD Work Phone: [facility] 09-16-2022 10:48-0400 Systolic blood pressure 121 mm[Hg] Tawanna Rivera MD Work Phone: [facility] 07-06-2022 10:00-0400 Body temperature 98.71 [degF] Christine Dean PA-C Work Phone: [facility] 07-06-2022 10:00-0400 Body weight 84.37 kg Christine Dean PA-C Work Phone: [facility] 07-06-2022 10:00-0400 Diastolic blood pressure 112 mm[Hg] Christine Dean PA-C Work Phone: [facility] 07-06-2022 10:00-0400 Heart rate 80 /min Christine Dean PA-C Work Phone: [facility] 07-06-2022 10:00-0400 Respiratory rate 16 /min Christine Dean PA-C Work Phone: [facility] 07-06-2022 10:00-0400 Systolic blood pressure 142 mm[Hg] Christine Dean PA-C Work Phone: [facility] 06-16-2022 08:40-0400 Body mass index (BMI) [Ratio] 30.99 kg/m2 Osvaldo Tapia MD Work Phone: [facility] 06-16-2022 08:40-0400 Body temperature 97.39 [degF] Osvaldo Tapia MD Work Phone: [facility] 06-16-2022 08:40-0400 Body weight 84.46 kg Osvaldo Tapia MD Work Phone: [facility] 06-16-2022 08:40-0400 Diastolic blood pressure 102 mm[Hg] Osvaldo Tapia MD Work Phone: [facility] 06-16-2022 08:40-0400 Heart rate 81 /min Osvaldo Tapia MD Work Phone: [facility] 06-16-2022 08:40-0400 Respiratory rate 14 /min Osvaldo Tapia MD Work Phone: [facility] 06-16-2022 08:40-0400 SaO2% (BldA) [Mass fraction] 96 % Osvaldo Tapia MD Work Phone: [facility] 06-16-2022 08:40-0400 Systolic blood pressure 141 mm[Hg] Osvlado Tapia MD Work Phone: [facility] 04-17-2022 10:31-0400 Body height 165.1 cm Karen Land UNLOADER OPERATOR-STATISTICAL FINANCIAL ANALYST Work Phone: [facility] 04-17-2022 10:31-0400 Body mass index (BMI) [Ratio] 26.63 kg/m2 Karen Land UNLOADER OPERATOR-STATISTICAL FINANCIAL ANALYST Work Phone: [facility] 04-17-2022 10:31-0400 Body weight 72.58 kg Karen Land UNLOADER OPERATOR-STATISTICAL FINANCIAL ANALYST Work Phone: [facility] 03-26-2022 08:29-0400 Body height 164.5 cm Osvaldo Tapia MD Work Phone: [facility] 03-26-2022 08:29-0400 Body mass index (BMI) [Ratio] 29.42 kg/m2 Osvaldo Tapia MD Work Phone: [facility] 03-26-2022 08:29-0400 Body temperature 99.19 [degF] Osvaldo Tapia MD Work Phone: [facility] 03-26-2022 08:29-0400 Body weight 79.61 kg Osvaldo Tapia MD Work Phone: [facility] 03-26-2022 08:29-0400 Diastolic blood pressure 88 mm[Hg] Osvaldo Tapia MD Work Phone: [facility] 03-26-2022 08:29-0400 Heart rate 82 /min Osvlado Tapia MD Work Phone: [facility] 03-26-2022 08:29-0400 Respiratory rate 16 /min Osvaldo Tapia MD Work Phone: [facility] 03-26-2022 08:29-0400 SaO2% (BldA) [Mass fraction] 97 % Osvaldo Tapia MD Work Phone: [facility] 03-26-2022 08:29-0400 Systolic blood pressure 131 mm[Hg] Osvaldo Tapia MD Work Phone: [facility] 03-18-2022 11:40-0400 Body height 165.1 cm Tawanna Rivera MD Work Phone: [facility] 03-18-2022 11:40-0400 Body mass index (BMI) [Ratio] 29.12 kg/m2 Tawanna Rivera MD Work Phone: [facility] 03-18-2022 11:40-0400 Body temperature 98.1 [degF] Tawanna Rivera MD Work Phone: [facility] 03-18-2022 11:40-0400 Body weight 79.38 kg Tawanna Rivera MD Work Phone: [facility] 03-18-2022 11:40-0400 Diastolic blood pressure 78 mm[Hg] Tawanna Rivera MD Work Phone: [facility] 03-18-2022 11:40-0400 Heart rate 92 /min Tawanna Rivera MD Work Phone: [facility] 03-18-2022 11:40-0400 Respiratory rate 16 /min Tawanna Rivera MD Work Phone: [facility] 03-18-2022 11:40-0400 SaO2% (BldA) [Mass fraction] 99 % Tawanna Rivera MD Work Phone: [facility] 03-18-2022 11:40-0400 Systolic blood pressure 157 mm[Hg] Tawanna Rivera MD Work Phone: [facility] Encounters Encounter Date Encounter Type Care Provider Facility Start: 04-24-2025 ambulatory Nagi Red Facility :[facility] Start: 04-18-2025 End: 04-18-2025 Chart abstracting Nagi Red MD Work Phone: [facility] Comment on above: ER Discharge Summary Start: 04-17-2025 End: 04-17-2025 Emergency department patient visit Ludin Adams Facility:[facility] Start: 04-17-2025 End: 04-17-2025 ambulatory Nagi Red MD Work Phone: [facility] Start: 04-17-2025 End: 04-17-2025 Patient encounter procedure Nagi Red MD Work Phone: [facility] Comment on above: Today's appointment Start: 04-10-2025 End: 04-10-2025 ambulatory Nagi Red Facility:[facility] Start: 04-09-2025 End: 04-09-2025 ambulatory Nagi Red Facility:[facility] Start: 04-05-2025 ambulatory Nagi Red Facility :[facility] Start: 04-03-2025 End: 04-03-2025 ambulatory FLACO CONTRERAS Facility:[facility] Start: 03-22-2025 End: 03-22-2025 ambulatory Nagi Red Facility:[facility] Start: 03-20-2025 End: 03-20-2025 Chart abstracting Nagi Red MD Work Phone: [facility] Comment on above: ER Discharge Summary Start: 03-19-2025 End: 03-20-2025 ambulatory Nagi Red MD Work Phone: [facility] Start: 03-19-2025 End: 03-20-2025 Subsequent hospital visit by physician Nagi Red MD Work Phone: [facility] Comment on above: Hospital visit Start: 03-19-2025 End: 03-19-2025 Telephone encounter Carlie Howard Aamir VILLANUEVA Work Phone: Pain Management Comment on above: Medication Question Start: 03-19-2025 End: 03-19-2025 Emergency department patient visit Nagi Red Facility:[facility] Start: 03-18-2025 End: 03-18-2025 Emergency department patient visit [facility] Start: 03-02-2025 End: 03-02-2025 Orders Only Flaco Contreras MD Work Phone: Pain Management Comment on above: SI (sacroiliac) join t dysfunction (Primary Dx) SI (sacroiliac) join t dysfunction Medication Problem ( traMADol (ULTRAM) 50 mg tablet) Start: 02-19-2025 End: 02-19-2025 Telephone encounter Flaco Contreras MD Work Phone: Pain Management Comment on above: Patient Question Start: 02-16-2025 End: 02-16-2025 Chart abstracting Jace Wallis MA [facility] [place] [facility] Comment on above: Procedure ([facility] - gas tric emptying study /) Start: 02-12-2025 End: 02-12-2025 ambulatory [facility] Facility:[facility] Start: 02-08-2025 End: 02-08-2025 Telephone encounter Flaco Contreras MD Work Phone: Pain Management Comment on above: Insurance Authorizat ion (Lumbar MRI Denial) Start: 02-07-2025 End: 02-07-2025 Chart abstracting Jace Wallis MA [facility] [facility] Comment on above: Results (Outside lab s /) Start: 02-02-2025 End: 02-02-2025 ambulatory [facility] Facility:[facility] Start: 01-29-2025 End: 01-29-2025 Chart abstracting Nagi Red MD Work Phone: [facility] Comment on above: Outside [facility] Ordered Start: 01-26-2025 End: 01-26-2025 ambulatory Taylor Samuel Facility:[facility] Start: 01-19-2025 End: 01-19-2025 ambulatory Nagi Red Facility:[facility] Start: 01-05-2025 End: 01-05-2025 ambulatory NAGI RED Facility:[facility] Start: 01-05-2025 End: 01-05-2025 Patient encounter procedure Tomas Alexis UNLOADER OPERATOR.STATISTICAL FINANCIAL ANALYST Work Phone: [facility] Comment on above: Bacterial sinusitis (Primary Dx) Start: 12-15-2024 End: 12-15-2024 Patient encounter procedure Renard Almodovar APRN.STATISTICAL FINANCIAL ANALYST Work Phone: [facility] Comment on above: Migraine without aur a and without status migrainosus, not intractable (Primary Dx); Mixed headache Start: 12-15-2024 End: 12-15-2024 ambulatory RENARD ALMODOVAR Facility:[facility] Start: 12-14-2024 End: 12-14-2024 Telemedicine consultation with patient Carlie Brownlee APRN.STATISTICAL FINANCIAL ANALYST Work Phone: Pain Management Start: 12-14-2024 End: 12-14-2024 ambulatory Carlie Brownlee APRN.STATISTICAL FINANCIAL ANALYST Work Phone: Pain Management Comment on above: SI (sacroiliac) join t dysfunction (Primary Dx); Radiculopathy, lumbar region; Degeneration of intervertebral disc of lumbar region with discogenic back pain Start: 12-06-2024 End: 12-06-2024 ambulatory Carlie Brownlee APRN.STATISTICAL FINANCIAL ANALYST Work Phone: Pain Management Comment on above: New back pain Start: 11-09-2024 End: 11-09-2024 ambulatory NAGI RED Facility:[facility] Start: 11-07-2024 End: 11-07-2024 Admission to same day surgery center Carlie Brownlee APRN.STATISTICAL FINANCIAL ANALYST Work Phone: Pain Management Comment on above: Surgery Start: 11-07-2024 End: 11-07-2024 ambulatory Carlie Brownlee APRN.STATISTICAL FINANCIAL ANALYST Work Phone: Pain Management Start: 11-02-2024 End: 11-02-2024 ambulatory Renard Almodovar APRN.STATISTICAL FINANCIAL ANALYST Work Phone: [facility] Comment on above: Work Start: 11-02-2024 End: 11-02-2024 Patient encounter procedure Renard Almodovar APRN.STATISTICAL FINANCIAL ANALYST Work Phone: [facility] Comment on above: Migraine without aur a and without status migrainosus, not intractable (Primary Dx) Start: 10-27-2024 End: 10-27-2024 Telephone encounter Christine Dean PA-C Work Phone: [facility] Comment on above: Results Start: 10-26-2024 End: 10-26-2024 ambulatory CHRISTINE DEAN Facility:[facility] Start: 10-26-2024 End: 10-26-2024 Patient encounter procedure Christine Dean PA-C Work Phone: [facility] Comment on above: Migraine without aur a and without status migrainosus, not intractable (Primary Dx); Mixed headache; Hypertension, essential; Daily headache Start: 10-24-2024 End: 10-24-2024 Chart abstracting Jace Wallis MA [facility] Comment on above: ER F/U ([facility] ) Start: 10-23-2024 End: 10-24-2024 Telephone encounter Nagi Red MD Work Phone: [facility] Comment on above: FMLA Paperwork Start: 10-21-2024 End: 10-21-2024 Emergency department patient visit Nagi Red Facility:[facility] Start: 10-21-2024 End: 10-21-2024 ambulatory Nagi Red Facility:[facility] Start: 10-18-2024 End: 10-18-2024 ambulatory NAGI RED Facility:[facility] Start: 10-18-2024 End: 10-18-2024 Patient encounter procedure La Paiz APRN.STATISTICAL FINANCIAL ANALYST Work Phone: [facility] Comment on above: Headache, unspecifie d headache type (Primary Dx); Nausea Start: 10-17-2024 End: 10-17-2024 ambulatory Nagi Red MD Work Phone: [facility] Comment on above: Migraine Start: 10-01-2024 End: 10-01-2024 Telephone encounter Nagi Ku APRN.STATISTICAL FINANCIAL ANALYST Work Phone: [facility] Comment on above: Results Start: 09-29-2024 End: 09-29-2024 ambulatory NAGI RED Facility:[facility] Start: 09-29-2024 End: 09-29-2024 Patient encounter procedure Karen Jones APRN.STATISTICAL FINANCIAL ANALYST Work Phone: [facility] Comment on above: Dysuria (Primary Dx) Start: 09-27-2024 End: 09-27-2024 Orders Only Flaco Contreras MD Work Phone: Pain Management Comment on above: SI (sacroiliac) join t dysfunction (Primary Dx) Start: 09-26-2024 End: 09-26-2024 Telephone encounter Carlie Brownlee APRN.STATISTICAL FINANCIAL ANALYST Work Phone: Pain Management Comment on above: Orders Start: 09-21-2024 End: 09-21-2024 Patient encounter procedure Renard Almodovar APRN.STATISTICAL FINANCIAL ANALYST Work Phone: [facility] Comment on above: Leg cramps (Primary Dx); Encounter for physical examination related to employment Start: 09-21-2024 End: 09-21-2024 ambulatory RENARD ALMODOVAR Facility:[facility] Start: 09-18-2024 End: 09-18-2024 ambulatory Carlie Brownlee APRN.STATISTICAL FINANCIAL ANALYST Work Phone: Pain Management Comment on above: SI (sacroiliac) join t dysfunction (Primary Dx); Radiculopathy, lumbar region; Degeneration of intervertebral disc of lumbar region with discogenic back pain Start: 09-18-2024 End: 09-18-2024 Telemedicine consultation with patient Carlie M Brownlee UNLOADER OPERATOR.STATISTICAL FINANCIAL ANALYST Work Phone: Pain Management Start: 09-15-2024 End: 09-15-2024 ambulatory NAGI RED Facility:[facility] Start: 09-15-2024 End: 09-15-2024 Patient encounter procedure Shannon Hawkins PA-C Work Phone: [facility] Comment on above: Viral illness (Prima ry Dx) Start: 09-04-2024 End: 09-04-2024 Chart abstracting Nagi Red MD Work Phone: [facility] Comment on above: ER Discharge Summary Start: 09-01-2024 End: 09-01-2024 Emergency department patient visit Ludin Adams Facility:[facility] Start: 08-25-2024 ambulatory Roselia Arrieta Facility:[facility] Start: 08-22-2024 End: 08-22-2024 Chart abstracting Nagi Red MD Work Phone: [facility] Comment on above: Outside [facility] Ordered Start: 08-21-2024 ambulatory Health Risk Assessment Facility:[facility] Start: 06-30-2024 End: 06-30-2024 Nursing evaluation of patient and report Mi Nurse Work Phone: [facility] Comment on above: Dermatofibroma (Prim kathya Dx) Start: 06-30-2024 End: 06-30-2024 ambulatory NAGI RED Facility:[facility] Start: 06-20-2024 Telephone encounter Nagi Red MD Work Phone: [facility] Comment on above: Results Start: 06-19-2024 End: 06-19-2024 ambulatory NAGI RED Facility:[facility] Start: 06-19-2024 End: 06-19-2024 Patient encounter procedure Nagi Red MD Work Phone: [facility] Comment on above: Neoplasm of uncertai n behavior of skin of back (Primary Dx); Dermatofibroma Start: 06-15-2024 End: 06-15-2024 Telemedicine consultation with patient Carlie Brownlee APRN.STATISTICAL FINANCIAL ANALYST Work Phone: Pain Management Start: 06-15-2024 End: 06-15-2024 ambulatory Carlie Brownlee APRN.STATISTICAL FINANCIAL ANALYST Work Phone: Pain Management Comment on above: Spinal stenosis of l umbar region, unspecified whether neurogenic claudication present (Primary Dx); SI (sacroiliac) joint dysfunction; Radiculopathy, lumbar region Start: 06-13-2024 End: 06-13-2024 ambulatory NAGI RED Facility:[facility] Start: 05-23-2024 Telephone encounter Nagi Red MD Work Phone: [facility] Comment on above: Future Appointment Start: 05-15-2024 ambulatory Carlie Brownlee APRN.STATISTICAL FINANCIAL ANALYST Work Phone: Pain Management Comment on above: Back imaging Start: 05-13-2024 End: 05-13-2024 Emergency department patient visit Melvin Solares Facility:[facility] Start: 05-12-2024 End: 05-12-2024 Subsequent hospital visit by physician [facility] Comment on above: Pain in left lower l eg [M79.662] Start: 05-12-2024 End: 05-12-2024 ambulatory 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 [employer] Comment on above: US results Leg ultrasound Start: 05-12-2024 End: 05-12-2024 Patient encounter procedure Sakshi Pandey APRN.STATISTICAL FINANCIAL ANALYST Work Phone: [facility] Comment on above: Pain in left lower l eg (Primary Dx) Start: 05-02-2024 Telephone encounter Jace Wallis MA [facility] Comment on above: Appointment Start: 05-01-2024 End: 05-01-2024 Office outpatient visit 25 minutes Tawanna Rivera MD Work Phone: Division of Endocrinology Comment on above: Papillary thyroid ca rcinoma (Primary Dx); Postsurgical hypothyroidism Start: 05-01-2024 End: 05-01-2024 ambulatory TAWANNA RIVERA Facility:[facility] Start: 04-29-2024 Telephone encounter Nagi Red MD Work Phone: [facility] [place] Comment on above: Results Start: 04-26-2024 End: 04-26-2024 ambulatory Pulm Lab [facility] Work Phone: PULM LAB [facility] Comment on above: Spirometry Visit Start: 04-26-2024 End: 04-26-2024 Patient encounter procedure [facility] Work Phone: PULM LAB [facility] Start: 04-25-2024 Telephone encounter Nagi Red MD Work Phone: [facility] [place] Comment on above: Results Start: 04-25-2024 End: 04-25-2024 ambulatory NAGI RED Facility:[facility] Start: 04-25-2024 End: 04-25-2024 Patient encounter procedure Nagi Red MD Work Phone: [facility] [place] Comment on above: Hypertension, essent ial (Primary Dx); Migraine without aura and without status migrainosus, not intractable; Chronic fatigue disorder; Post-surgical hypothyroidism; Primary thyroid papillary carcinoma (HCC); PTSD (post-traumatic stress disorder); Bipolar 1 disorder (HCC); Anxiety, generalized; Exercise-induced asthma; Vitamin D deficiency; Obesity, Class I, BMI 30-34.9; Acute right-sided low back pain without sciatica; Spinal stenosis of lumbar region, unspecified whether neurogenic claudication present; Congenital heart defect; Encounter for gynecological examination; Renal stones; SOB (shortness of breath) Start: 04-25-2024 End: 04-25-2024 Patient encounter status Nagi Red MD Work Phone: [facility] Start: 04-24-2024 End: 04-24-2024 ambulatory NAGI RED Facility:[facility] Start: 04-19-2024 ambulatory Nagi zhang MD Work Phone: [facility] [place] Comment on above: Blood sugar Start: 04-04-2024 Orders Only Flaco Contreras MD Work Phone: Pain Management Comment on above: SI (sacroiliac) join t dysfunction (Primary Dx) Start: 03-25-2024 End: 03-25-2024 Patient encounter procedure Nagi Red MD Work Phone: [facility] [place] Comment on above: Tinnitus of right ea r (Primary Dx); Right ear pain; Neoplasm of uncertain behavior of skin of back Start: 03-16-2024 End: 03-16-2024 Patient encounter procedure Carlie Brownlee APRN.STATISTICAL FINANCIAL ANALYST Work Phone: Pain Management Comment on above: SI (sacroiliac) join t dysfunction (Primary Dx); Lumbar degenerative disc disease; Spinal stenosis of lumbar region, unspecified whether neurogenic claudication present Start: 03-07-2024 Chart abstracting Nagi chacon MD Work Phone: [facility] [place] Comment on above: Ext / ABD US Start: 01-11-2024 End: 01-11-2024 Office outpatient visit 15 minutes Galilea Olvera PA-C Work Phone: [facility] Comment on above: Otalgia of both ears (Primary Dx); Flu Start: 01-07-2024 Telephone encounter Jim cerrato APRN.STATISTICAL FINANCIAL ANALYST Work Phone: [facility] Comment on above: Results Start: 01-07-2024 End: 01-07-2024 Patient encounter procedure Octavio WILCOX Work Phone: [facility] Comment on above: Sore throat (Primary Dx); URI, acute Start: 01-03-2024 Chart abstracting Nagi chacon MD Work Phone: [facility] [place] Comment on above: Outside imaging and ER Start: 11-04-2023 End: 11-04-2023 Patient encounter procedure Brian Griffin Work Phone: Podiatry Comment on above: Plantar wart of left foot (Primary Dx) Start: 10-04-2023 End: 10-04-2023 Patient encounter procedure La Paiz APRN.STATISTICAL FINANCIAL ANALYST Work Phone: [facility] Comment on above: Sore throat (Primary Dx); Bronchitis; Lower resp. tract infection Start: 09-16-2023 Orders Only Flaco Contreras MD Work Phone: Pain Management Comment on above: SI (sacroiliac) join t dysfunction (Primary Dx) Start: 09-13-2023 End: 09-13-2023 ambulatory Carlie Brownlee KIMBERLEY.STATISTICAL FINANCIAL ANALYST Work Phone: Pain Management Comment on above: Spinal stenosis of l umbar region, unspecified whether neurogenic claudication present (Primary Dx); SI (sacroiliac) joint dysfunction; Lumbar degenerative disc disease Start: 09-13-2023 End: 09-13-2023 Telemedicine consultation with patient Carlie Brownlee APRN.STATISTICAL FINANCIAL ANALYST Work Phone: [facility] Start: 07-08-2023 Orders Only Flaco Contreras MD Work Phone: Pain Management Comment on above: SI (sacroiliac) join t dysfunction (Primary Dx); Sacroiliitis, not elsewhere classified (HCC) Start: 06-08-2023 End: 06-08-2023 Patient encounter procedure Carlie Cardonakj CHU.STATISTICAL FINANCIAL ANALYST Work Phone: Pain Management Comment on above: SI (sacroiliac) join t dysfunction; Lumbar degenerative disc disease Start: 04-28-2023 Telephone encounter Christine fernandez PA-C Work Phone: [facility] Comment on above: Results Start: 04-28-2023 End: 04-28-2023 Subsequent hospital visit by physician [facility] ([facility]) Work Phone: Cat Scan Comment on above: Adverse effect of tr eatment, initial encounter [T88.9XXA] Start: 04-27-2023 End: 04-27-2023 Patient encounter procedure Renard Almodovar APRN.STATISTICAL FINANCIAL ANALYST Work Phone: [facility] [place] Comment on above: Post-surgical hypoth yroidism (Primary Dx); Adverse effect of treatment, subsequent encounter; Adverse effect of treatment, initial encounter Start: 04-26-2023 Chart abstracting Nagi chacon MD Work Phone: [facility] [place] Start: 04-05-2023 Telephone encounter Renard Bárbara mchugh APRN.STATISTICAL FINANCIAL ANALYST Work Phone: [facility] Comment on above: Results Start: 04-01-2023 Telephone encounter Flaco quiñones MD Work Phone: Pain Management Comment on above: Results Start: 03-29-2023 Telephone encounter Nagi Red MD Work Phone: [facility] Comment on above: ER FU apt Start: 03-27-2023 End: 03-27-2023 Subsequent hospital visit by physician Xr [facility] [place] Work Phone: Radiology Comment on above: Lumbar degenerative disc disease [M51.36] Start: 03-03-2023 End: 03-03-2023 Patient encounter procedure Nagi Red MD Work Phone: [facility] Comment on above: Hypertension, essent ial (Primary Dx); Migraine without aura and without status migrainosus, not intractable; Primary thyroid papillary carcinoma (HCC); Post-surgical hypothyroidism; Bipolar 1 disorder (HCC); PTSD (post-traumatic stress disorder); Anxiety, generalized; Exercise-induced asthma; Vitamin D deficiency; Acute right-sided low back pain without sciatica; Vomiting, persistent, in adult; Obesity, Class I, BMI 30-34.9; Encounter for screening for diabetes mellitus Start: 02-16-2023 ambulatory Carlie Brownlee APRN.STATISTICAL FINANCIAL ANALYST Work Phone: Pain Management Comment on above: Medication Start: 02-12-2023 End: 02-12-2023 Subsequent hospital visit by physician Flaco Contreras MD Work Phone: [facility] Comment on above: SI (sacroiliac) join t dysfunction [M53.3] Start: 02-06-2023 Chart abstracting Nagi chacon MD Work Phone: [facility] Comment on above: Consult (GI ) Start: 01-28-2023 Orders Only Flaco Contreras MD Work Phone: Pain Management Comment on above: Lumbar degenerative disc disease (Primary Dx); SI (sacroiliac) joint dysfunction; Sacroiliitis, not elsewhere classified (HCC) Start: 01-26-2023 Chart abstracting Nagi chacon MD Work Phone: [facility] [place] Comment on above: Outside Rjce-Mmd-MQN Ordered Start: 01-22-2023 Chart abstracting Nagi chacon MD Work Phone: [facility] [place] Comment on above: ER F/U (WC) Start: 01-22-2023 End: 01-22-2023 Office outpatient visit 25 minutes Nagi Ku APRN.STATISTICAL FINANCIAL ANALYST Work Phone: [facility] Comment on above: Bacterial sinusitis (Primary Dx) Start: 01-06-2023 ambulatory [facility] Manag ement Comment on above: RFA Start: 01-06-2023 E-mail encounter brittany m caregiver [facility] Provider [facility] Start: 12-16-2022 ambulatory Nagi zhang MD Work Phone: [facility] [place] Comment on above: High blood sugar Start: 11-25-2022 End: 11-25-2022 ambulatory Carlie Brownlee APRN.STATISTICAL FINANCIAL ANALYST Work Phone: Pain Management Comment on above: SI (sacroiliac) join t dysfunction; Lumbar degenerative disc disease SI fusion Start: 11-25-2022 E-mail encounter fro m caregiver Carlie Brownlee APRN.STATISTICAL FINANCIAL ANALYST Work Phone: [facility] Start: 11-25-2022 End: 11-25-2022 Telemedicine consultation with patient Carlie Brownlee APRN.STATISTICAL FINANCIAL ANALYST Work Phone: [facility] Start: 10-30-2022 Encounter for preprocedural laboratory examination CLAIRE SEPULVEDA DO [facility] Start: 10-23-2022 End: 10-23-2022 ambulatory CLAIRE SEPULVEDA DO Facility:[facility] Start: 10-10-2022 ambulatory Christine roman PA-C Work Phone: [facility] [place] Start: 10-10-2022 Patient encounter procedure Christine Dean PA-C Work Phone: Family Medicine [place] Comment on above: Stomach issues refer ral Start: 09-16-2022 End: 09-16-2022 Office outpatient visit 25 minutes Tawanna Rivera MD Work Phone: Division of Endocrinology Comment on above: Papillary thyroid ca rcinoma (Primary Dx); Postsurgical hypothyroidism; Sialoadenitis of submandibular gland Start: 09-10-2022 End: 09-11-2022 ambulatory CLAIRE SEPULVEDA DO Facility:[facility] Start: 09-01-2022 Patient encounter status Christine Dean PA-C Work Phone: [facility] Work Phone: Start: 07-30-2022 ambulatory Carlie Brownlee APRN.CNP Work Phone: Pain Management Comment on above: Medication Start: 07-07-2022 Telephone encounter Christine fernandez PA-C Work Phone: [facility] [place] Comment on above: Results Start: 07-06-2022 End: 07-06-2022 Patient encounter procedure Christine Dean PA-C Work Phone: [facility] [place] Comment on above: Hypertension, essent ial (Primary Dx); Weight gain; Primary thyroid papillary carcinoma (HCC); Encounter for lipid screening for cardiovascular disease; Screening for diabetes mellitus Start: 07-01-2022 Orders Only Flaco Contreras MD Work Phone: Pain Management Comment on above: SI (sacroiliac) join t dysfunction (Primary Dx); Sacroiliitis, not elsewhere classified (HCC) Start: 06-24-2022 ambulatory Nagi zhang MD Work Phone: [facility] [place] Comment on above: Pcp Start: 06-16-2022 End: 06-16-2022 Postop follow up visit related to original px Osvaldo Tapia MD Work Phone: Department of Otolaryngology Comment on above: Sialadenitis (Primar y Dx) Start: 05-26-2022 Orders Only Flaco Contreras MD Work Phone: Pain Management Comment on above: SI (sacroiliac) join t dysfunction (Primary Dx); Sacroiliitis, not elsewhere classified (HCC) Start: 05-14-2022 Orders Only Flaco Contreras MD Work Phone: Pain Management Comment on above: SI (sacroiliac) join t dysfunction (Primary Dx); Sacroiliitis, not elsewhere classified (HCC) Start: 05-01-2022 End: 05-01-2022 ambulatory NAGI RED Facility:[facility] Start: 04-17-2022 End: 04-17-2022 Subsequent hospital visit by physician Karen Land APRN-STATISTICAL FINANCIAL ANALYST Work Phone: [facility] [place] Comment on above: Arrived Start: 04-14-2022 Orders Only Flaco Contreras MD Work Phone: Pain Management Comment on above: SI (sacroiliac) join t dysfunction (Primary Dx); Sacroiliitis, not elsewhere classified (HCC) Start: 04-09-2022 Telephone encounter Flaco quiñones MD Work Phone: Pain Management Comment on above: Appointment (Resched ule Injection ) Start: 04-07-2022 End: 04-07-2022 ambulatory Carlie Brownlee APRN.STATISTICAL FINANCIAL ANALYST Work Phone: Pain Management Comment on above: SI (sacroiliac) join t dysfunction (Primary Dx); Lumbar degenerative disc disease Start: 04-07-2022 End: 04-07-2022 Telemedicine consultation with patient Carlie Brownlee APRN.STATISTICAL FINANCIAL ANALYST Work Phone: [facility] Start: 03-26-2022 End: 03-26-2022 Office outpatient new 60 minutes Osvaldo Tapia MD Work Phone: Department of Otolaryngology Comment on above: Sialadenitis (Primar y Dx) Start: 03-18-2022 End: 03-18-2022 Office outpatient visit 25 minutes Tawanna Rivera MD Work Phone: Division of Endocrinology Comment on above: Postsurgical hypothy roidism (Primary Dx); Papillary thyroid carcinoma; Sialoadenitis of submandibular gland Start: 03-09-2022 ambulatory Morris goff MD Work Phone: Gastroenterology Start: 03-09-2022 Patient encounter procedure Morris Mireles Jr., MD Work Phone: [facility] Start: 03-05-2022 End: 03-05-2022 ambulatory Capsule Shayan Work Phone: Gastroenterology [place] Comment on above: Bloody Stool Start: 03-05-2022 End: 03-05-2022 Patient encounter procedure Capsule Steph Shayan Work Phone: [facility] Start: 12-22-2021 End: 12-23-2021 ambulatory DUC BAKER DO Facility:[facility] Start: 11-15-2021 End: 11-15-[address] SENA CARO MD Facility:[facility] Start: 07-17-2021 End: 07-17-2021 Subsequent hospital visit by physician Xr [facility] Work Phone: Radiology Comment on above: Left ankle injury, i nitial encounter [S99.912A] Start: 06-20-2021 End: 06-20-2021 Clinical Support Encounter Tawanna Rivera MD Work Phone: [facility] Comment on above: Thyroid cancer (Prim kathya Dx) Start: 08-10-2014 End: 07-27-2019 Patient encounter status Carlie Brownlee APRN.CNP Work Phone: [facility] Procedures Date Procedure Procedure Detail Performing Clinician Start: 03-18-2025 Urinalysis NAGI CHACON Comment on above: Result Comment: URIN ALYSIS Performed By: #### [id number] ####[facility],[address] [place] [address] Start: 09-29-2024 Urnls dip stick/tabl et rgnt auto w/o microscopy Minor Jean MD Work Phone: Start: 06-19-2024 SURGICAL PATHOLOGY Melvin Red MD Work Phone: Start: 05-12-2024 Dup-scan xtr veins unilateral/limited study Sakshi Pandey UNLOADER OPERATOR.STATISTICAL FINANCIAL ANALYST Work Phone: Start: 05-01-2024 US Unspecified body region Tawanna Rivera MD Work Phone: Start: 05-01-2024 Us soft tissue head & neck real time imge docm Tawanna Rivera MD Work Phone: Start: 04-26-2024 Brncdilat rspse spmt ry pre&post-brncdilat admn Nagi Red MD Work Phone: Start: 01-07-2024 STREP A MOLECULAR (POC) Octavio Alcantara PA Work Phone: Start: 10-04-2023 STREP A MOLECULAR (POC) [facility] Provider Start: 04-28-2023 Ct angiography neck w/contrast/noncontrast Renard Almodovar UNLOADER OPERATOR.STATISTICAL FINANCIAL ANALYST Work Phone: Start: 03-27-2023 Radex spine lumbosac ral minimum 4 views Carlie Brownlee UNLOADER OPERATOR.STATISTICAL FINANCIAL ANALYST Work Phone: Start: 02-12-2023 Fluoroscopy up to 1 hour physician/qhp time Flaco Contreras MD Work Phone: Start: 09-16-2022 US Unspecified body region Tawanna Rivera MD Work Phone: Start: 09-16-2022 Us soft tissue head & neck real time imge docm Tawanna Rivera MD Work Phone: Start: 07-06-2022 Adult depression screening assessment Christine Dean PA-C Work Phone: Start: 03-18-2022 US Unspecified body region Tawanna Rivera MD Work Phone: Start: 03-18-2022 Us soft tissue head & neck real time imge docm Tawanna Rivera MD Work Phone: Start: 07-17-2021 Radex ankle complete minimum 3 views Shannon Hawkins PA-C Work Phone: Start: 07-31-2019 History of thyroidectomy S/P total t hyroidectomy Capsule Shayan Work Phone: Start: 05-20-2017 Adult depression screening assessment Capsule Shayan Work Phone: Plan of Treatment Date Care Activity Detail Author Start: 01-05-2026 BP Controlled (<130/80) BP Controlled (<130/80) [facility] Start: 12-15-2025 Annual PCP Team Chronic Disease Visit Annual PCP Team Chronic Disease Visit [facility] Start: 11-02-2025 Annual PCP Team Chronic Disease Visit Annual PCP Team Chronic Disease Visit [facility] Start: 10-26-2025 Annual PCP Team Chronic Disease Visit Annual PCP Team Chronic Disease Visit [facility] Start: 10-18-2025 BP Controlled (<130/80) BP Controlled (<130/80) [facility] Start: 09-21-2025 Annual PCP Team Chronic Disease Visit Annual PCP Team Chronic Disease Visit [facility] Start: 09-21-2025 BP Controlled (<130/80) BP Controlled (<130/80) [facility] Start: 09-21-2025 Covid-19 Vaccine ( season) Covid-19 Vaccine () [facility] Comment on above: Postponed from 07/23/2024 (Declined at t his time) Start: 06-19-2025 Annual PCP Team Chronic Disease Visit Annual PCP Team Chronic Disease Visit [facility] Start: 05-12-2025 Annual PCP Team Chronic Disease Visit Annual PCP Team Chronic Disease Visit [facility] Start: 05-12-2025 BP Controlled (<130/80) BP Controlled (<130/80) [facility] Start: 05-07-2025 End: 05-07-2025 Patient encounter procedure 05/07/2025 12:20 PM EDT Office Visit Division of Endocrinology [address] [facility] [address] [place] [address] Tawanna Rivera MD [facility] [facility] [place] [address] Division of Endocrinology Start: 05-01-2025 Thyroid stimulating hormone measurement [facility]SH [facility] Start: 04-25-2025 Annual PCP Team Chronic Disease Visit Annual PCP Team Chronic Disease Visit [facility] Start: 04-03-2025 End: 04-03-2025 Admission to same day surgery center [facility] Comment on above: RADIOFREQUENCY ABLATION NERVES INNERVATI NG THE SACROILIAC JOINT W/IMAGE GUIDANCE FLUORO OR CT Start: 04-03-2025 End: 04-03-2025 Radiofrequency abltj nrv nrvtg si jt w/img gdn ME OR Start: 04-03-2025 Subsequent hospital visit by physician [facility] Comment on above: SI (sacroiliac) joint dysfunction [M53.3 ] Start: 03-30-2025 End: 03-30-2025 Patient encounter procedure 03/30/2025 11:20 AM EDT Office Visit [facility] [address] [place] [address] Nagi Red MD [address] [place] [address] Er follow up [facility] [place] Comment on above: Er follow up Start: 03-25-2025 Annual PCP Team Chronic Disease Visit Annual PCP Team Chronic Disease Visit [facility] Start: 03-19-2025 Tetanus vaccination [facility]ET[facility] Start: 03-19-2025 Urine microalbumin profile [facility] Start: 02-26-2025 End: 02-26-2025 Patient encounter procedure 02/26/2025 7:45 AM EDT Office Visit Pain Management [address] [address] Flaco Contreras MD [address] [facility] [place], [place] [id number] Cervical/Thoracic Pain (New Pain, Established Patient) Pain Management Comment on above: Cervical/Thoracic Pain (New Pain, Establ ished Patient) Start: 02-13-2025 End: 02-13-2025 Patient encounter procedure Radiology Comment on above: Migraine without aura and without status migrainosus, not intractable [G43.009] Spinal stenosis of l umbar region, unspecified whether neurogenic claudication present [M48.061]; Radiculopathy, lumbar region [M54.16]; Spinal stenosis of lumbar region with neurogenic claudication [M48.062] Start: 02-02-2025 End: 02-02-2025 Patient encounter procedure Radiology Comment on above: Migraine without aura and without status migrainosus, not intractable [G43.009] Spinal stenosis of l umbar region, unspecified whether neurogenic claudication present [M48.061]; Radiculopathy, lumbar region [M54.16]; Spinal stenosis of lumbar region with neurogenic claudication [M48.062] Start: 01-08-2025 End: 01-08-2025 Patient encounter procedure 01/08/2025 3:30 PM EST Office Visit Pain Management [address] [id number] Flaco Contreras MD [address] [facility] [place] [address] Cervical/Thoracic Pain (New Pain, Established Patient) Pain Management Comment on above: Cervical/Thoracic Pain (New Pain, Establ ished Patient) Start: 12-29-2024 End: 12-29-2024 Patient encounter procedure 12/29/2024 1:30 PM EST Appointment Radiology [address] [place], [place] [phone] Migraine without aura and without status migrainosus, not intractable [G43.009] Radiology Comment on above: Migraine without aura and without status migrainosus, not intractable [G43.009] Start: 12-15-2024 End: 12-15-2024 Patient encounter procedure 12/15/2024 1:40 PM EST Office Visit [facility] [address] [place] [phone] Renard Almodovar APRN.[facility] [address] [place], [place] [phone] 3 week med follow up [facility] Comment on above: 3 week med follow up Start: 11-24-2024 End: 11-24-2024 Patient encounter procedure 11/24/2024 1:40 PM EST Office Visit [facility] [address] [place] [address] Renard Almodovar APRN.STATISTICAL FINANCIAL ANALYST [address] [place], [place] [phone] 3 week med follow up [facility] Comment on above: 3 week med follow up Start: 11-23-2024 BP Controlled (<130/80) BP Controlled (<130/80) [facility] Start: 11-09-2024 End: 11-09-2024 Admission to same day surgery center [facility] Comment on above: RADIOFREQUENCY ABLATION NERVES INNERVATI NG THE SACROILIAC JOINT W/IMAGE GUIDANCE FLUORO OR CT Start: 11-09-2024 End: 11-09-2024 Radiofrequency abltj nrv nrvtg si jt w/img gdn ME OR Start: 11-09-2024 Subsequent hospital visit by physician [facility] Comment on above: SI (sacroiliac) joint dysfunction [M53.3 ] Start: 11-09-2024 End: 11-09-2024 Admission to same day surgery center 11/09/2024 9:17 AM EST - 11/09/2024 10:00 AM EST Surgery [facility] [address] [place] [address] Flaco Contreras MD [address] [facility] [place] [address] RADIOFREQUENCY ABLATION NERVES INNERVATING THE SACROILIAC JOINT W/IMAGE GUIDANCE FLUORO OR CT [facility] Comment on above: RADIOFREQUENCY ABLATION NERVES INNERVATI NG THE SACROILIAC JOINT W/IMAGE GUIDANCE FLUORO OR CT Start: 11-09-2024 End: 11-09-2024 Radiofrequency abltj nrv nrvtg si jt w/img gdn RADIOFREQUENCY ABLATION NERVES INNERVATING THE SACROILIAC JOINT W/IMAGE GUIDANCE FLUORO OR CT SI (sacroiliac) joint dysfunction 11/09/2024 9:17 AM EST ME OR Start: 11-09-2024 Subsequent hospital visit by physician 11/09/2024 9:17 AM EST Hospital Encounter [facility] [address] [place] [address] Flaco Contreras MD [address] [facility] [id number] [place] [address] SI (sacroiliac) joint dysfunction [M53.3] [facility] Comment on above: SI (sacroiliac) joint dysfunction [M53.3 ] Start: 11-01-2024 End: 11-01-2024 Patient encounter procedure 11/01/2024 3:20 PM EST Office Visit Family Medicine [place] [address] [place], [place] [phone] Christine Dean PA-C [address] [place], [place] [phone] f/u migraines [facility] Comment on above: f/u migraines Start: 10-26-2024 End: 01-25-2025 C reactive protein [Mass/volume] in Serum or Plasma [facility] Comment on above: Expected: 10/26/2024, Expires: Start: 10-26-2024 End: 01-25-2025 CBC W Auto Differential panel - Blood [facility] Work Phone: Comment on above: Expected: 10/26/2024, Expires: Start: 10-26-2024 End: 01-25-2025 Comprehensive metabolic 2000 panel - Serum or Plasma [facility] Comment on above: Expected: 10/26/2024, Expires: 5 Start: 10-26-2024 End: 01-25-2025 Erythrocyte sedimentation rate [facility] Comment on above: Expected: 10/26/2024, Expires: Start: 10-26-2024 End: 01-25-2025 Magnesium [Mass/volume] in Serum or Plasma [facility] Comment on above: Expected: 10/26/2024, Expires: 5 Start: 10-26-2024 End: 01-25-2025 Thyrotropin [Units/volume] in Serum or Plasma [facility] [facility] Comment on above: Expected: 10/26/2024, Expires: Start: 10-26-2024 End: 10-26-2024 Patient encounter procedure [facility] [place] Comment on above: Physical Physical-see phone n ote 10/23. Discuss migraine medication Start: 10-04-2024 BP Controlled (<130/80) BP Controlled (<130/80) [facility] Start: 09-21-2024 End: 12-21-2024 Comprehensive metabolic 2000 panel - Serum or Plasma COMPREHENSIVE METABOLIC PANEL Lab Routine Leg cramps Expected: 09/21/2024, Expires: 12/21/2024 [facility] Work Phone: Comment on above: Expected: 09/21/2024, Expires: Start: 09-21-2024 End: 12-21-2024 Magnesium [Mass/volume] in Serum or Plasma MAGNESIUM Lab Routine Leg cramps Expected: 09/21/2024, Expires: 12/21/2024 [facility] Comment on above: Expected: 09/21/2024, Expires: Start: 09-21-2024 End: 09-21-2024 Patient encounter procedure 09/21/2024 8:00 AM EDT Office Visit Family [facility] [address] [place], [place] [phone] Christine Dean PA-C [address] [place], [place] [phone] Physical Family Medicine [facility] Comment on above: Physical Start: 09-18-2024 End: 09-18-2024 Admission to same day surgery center 09/18/2024 3:30 PM EDT [facility] [address] [address] Carlie Brownlee, UNLOADER OPERATOR.STATISTICAL FINANCIAL ANALYST [address] [place] [address] Medication renew discuus surgery for October Pain Management Comment on above: Medication renew discuus surgery for Oct Start: 08-16-2024 End: 08-16-2024 Patient encounter procedure 08/16/2024 10:00 AM EDT Office Visit [facility] [place] [address] [place], [place] [phone] Jyoti Rose MD [address] [place], [place] [phone] Elevated LALI. pe [facility] [place] Comment on above: Elevated LALI. pe Start: 08-14-2024 End: 08-14-2024 Patient encounter procedure 08/14/2024 1:00 PM EDT Office Visit Urology [address] [place], [place] [phone] Jose Antonio Mane APRN.STATISTICAL FINANCIAL ANALYST, DNP [address] [place] [address] Renal stones [N20.0] Urology Comment on above: Renal stones [N20.0] Start: 07-23-2024 Covid-19 Vaccine ( season) Covid-19 Vaccine ( season) [facility] Start: 07-23-2024 Influenza vaccination [facility] Start: 06-30-2024 End: 06-30-2024 Nursing evaluation of patient and report 06/30/2024 10:00 AM EDT Nurse Visit [facility] [place] [address] [place] [address] Nurse, Ia [address] [place] [address] Suture removal on left shoulder [facility] Kaleb [place] Comment on above: Suture removal on left shoulder Start: 06-19-2024 End: 06-19-2024 Patient encounter procedure 06/19/2024 1:20 PM EDT Office Visit [facility] Kaleb [place] [address] [place] [address] Nagi Red MD [address] [place], [place] [phone] Excisional biospy 40 minute appt Family Kaleb [facility] Comment on above: Excisional biospy 40 minute appt rj Start: 06-13-2024 End: 06-13-2024 Admission to same day surgery center 06/13/2024 11:26 AM EDT - 06/13/2024 12:09 PM EDT Surgery [facility] [address] [place] [address] Flaco Contreras MD [address] [facility] [place] [address] RADIOFREQUENCY ABLATION NERVES INNERVATING THE SACROILIAC JOINT W/IMAGE GUIDANCE [facility] Comment on above: RADIOFREQUENCY ABLATION NERVES INNERVATI NG THE SACROILIAC JOINT W/IMAGE GUIDANCE Start: 06-13-2024 End: 06-13-2024 Radiofrequency abltj nrv nrvtg si jt w/img gdn RADIOFREQUENCY ABLATION NERVES INNERVATING THE SACROILIAC JOINT W/IMAGE GUIDANCE SI (sacroiliac) joint dysfunction 06/13/2024 11:26 AM EDT ME OR Start: 06-13-2024 Subsequent hospital visit by physician 06/13/2024 11:26 AM EDT Hospital Encounter [facility] [address] [place] [address] Flaco Contreras MD [address] [facility] [place] [address] SI (sacroiliac) joint dysfunction [M53.3] [facility] Comment on above: SI (sacroiliac) joint dysfunction [M53.3 ] Start: 06-05-2024 End: 06-05-2024 Patient encounter procedure 06/05/2024 10:20 AM EDT Office Visit Family Medicine [address] [phone] Renard Almodovar APRN.[facility] [address] [place] [address] 4 week follow up HTN [facility] [place] Comment on above: 4 week follow up HTN Start: 05-23-2024 End: 05-23-2024 Patient encounter procedure 05/23/2024 1:40 PM EDT Office Visit Family [facility] [place] [address] [place] [address] Nagi Red MD [address] [place], [place] [address] excisional bx [facility] Comment on above: excisional bx Start: 05-23-2024 End: 05-23-2024 Admission to same day surgery center 05/23/2024 10:53 AM EDT - 05/23/2024 11:36 AM EDT Surgery [facility] [address] [place] [address] Flaco Contreras MD [address] [facility] [place] [address] RADIOFREQUENCY ABLATION NERVES INNERVATING THE SACROILIAC JOINT W/IMAGE GUIDANCE [facility] Comment on above: RADIOFREQUENCY ABLATION NERVES INNERVATI NG THE SACROILIAC JOINT W/IMAGE GUIDANCE Start: 05-23-2024 End: 05-23-2024 Radiofrequency abltj nrv nrvtg si jt w/img gdn RADIOFREQUENCY ABLATION NERVES INNERVATING THE SACROILIAC JOINT W/IMAGE GUIDANCE SI (sacroiliac) joint dysfunction 05/23/2024 10:53 AM EDT ME OR Start: 05-23-2024 Subsequent hospital visit by physician 05/23/2024 10:53 AM EDT Hospital Encounter [address] [address] Flaco Contreras MD [address] [facility] [place] [address] SI (sacroiliac) joint dysfunction [M53.3] [facility] Comment on above: SI (sacroiliac) joint dysfunction [M53.3 ] Start: 05-10-2024 End: 05-10-2024 Patient encounter procedure 05/10/2024 1:00 PM EDT Office Visit [facility] [address] [place] [address] Nagi Red MD [address] [place], [place] [phone] excisional bx [facility] [place] Comment on above: excisional bx Start: 05-02-2024 End: 05-02-2024 Patient encounter procedure 05/02/2024 2:20 PM EDT Office Visit Family [facility] [place] [address] [facility] [place] [address] Nagi Red MD [address] [place] [address] excisional biopsy [facility] [place] Comment on above: excisional biopsy Start: 04-27-2024 ANNUAL PCP TEAM CHRONIC DISEASE VISIT ANNUAL PCP TEAM CHRONIC DISEASE VISIT [facility] Start: 04-27-2024 End: 04-27-2024 Patient encounter procedure 04/27/2024 10:20 AM EDT Office Visit [facility] [place] [address] [facility] [place] [address] Nagi Red MD [address] [place] [address] excisional biopsy [facility] [place] Comment on above: excisional biopsy Start: 04-26-2024 End: 04-26-2024 ambulatory 04/26/2024 11:15 AM EDT Procedure PULM LAB [facility] [address] [facility] [place] [address] Wstr, Pulm Lab [facility] [address] [place] [address] Exercise-induced asthma [J45.990] [facility] Comment on above: Exercise-induced asthma [J45.990] Start: 04-25-2024 End: 07-25-2024 Angiotensin converting enzyme [Enzymatic activity/volume] in Serum or Plasma KATHERINE/ANGIOTENSIN BLD Lab Routine SOB (shortness of breath) Expected: 04/25/2024, Expires: 07/25/2024 [facility] Comment on above: Expected: 04/25/2024, Expires: Start: 04-25-2024 End: 04-25-2024 Patient encounter procedure 04/25/2024 11:20 AM EDT Office Visit Family [facility] [place] [address] [place] [address] Nagi Red MD [address] [place] [address] Physical [facility] [place] Comment on above: Physical Start: 04-19-2024 End: 07-19-2024 25-hydroxyvitamin D3 [Mass/volume] in Serum or Plasma VITAMIN D 25 HYDROXY Lab Routine Vitamin D deficiency Expected: 04/19/2024, Expires: 07/19/2024 [facility] Comment on above: Expected: 04/19/2024, Expires: Start: 04-19-2024 End: 07-19-2024 CBC W Auto Differential panel - Blood COMPLETE BLOOD COUNT AND DIFFERENTIAL Lab Routine Post-surgical hypothyroidism Expected: 04/19/2024, Expires: 07/19/2024 [facility] Comment on above: Expected: 04/19/2024, Expires: Start: 04-19-2024 End: 07-19-2024 Comprehensive metabolic 2000 panel - Serum or Plasma COMPREHENSIVE METABOLIC PANEL Lab Routine Hypertension, essential Expected: 04/19/2024, Expires: 07/19/2024 [facility] Work Phone: Comment on above: Expected: 04/19/2024, Expires: Start: 04-19-2024 End: 07-19-2024 Hemoglobin A1c in Blood HEMOGLOBIN A1C Lab Routine Encounter for screening for diabetes mellitus Expected: 04/19/2024, Expires: 07/19/2024 [facility] Comment on above: Expected: 04/19/2024, Expires: Start: 04-19-2024 End: 07-19-2024 LIPID PANEL, NONFASTING LIPID PANEL, NONFASTING Lab Routine Hypertension, essential Expected: 04/19/2024, Expires: 07/19/2024 [facility] Comment on above: Expected: 04/19/2024, Expires: Start: 04-19-2024 End: 07-19-2024 Thyrotropin [Units/volume] in Serum or Plasma THYROID STIMULATING HORMONE Lab Routine Post-surgical hypothyroidism Expected: 04/19/2024, Expires: 07/19/2024 [facility] Comment on above: Expected: 04/19/2024, Expires: Start: 04-19-2024 End: 07-19-2024 Urinalysis complete panel - Urine URINALYSIS, WITH MICROSCOPIC Lab Routine Hypertension, essential Expected: 04/19/2024, Expires: 07/19/2024 [facility] Comment on above: Expected: 04/19/2024, Expires: Start: 04-14-2024 End: 04-14-2024 Patient encounter procedure 04/14/2024 9:20 AM EDT Office Visit [facility] [place] [address] [place], [place] [phone] Nagi Red MD [address] [place], [place] [address] excisional biopsy [facility] [place] Comment on above: excisional biopsy Start: 03-25-2024 End: 03-25-2024 Patient encounter procedure 03/25/2024 9:20 AM EDT Office Visit [facility] [place] [address] [place] [address] Nagi Red MD [address] [place] [address] Skin lesion on back made [address] Red needs to remove rj [facility] [place] Comment on above: Skin lesion on back made 40 [address] in c ase Dr. Red needs to remove rj Start: 03-21-2024 End: 03-21-2024 ambulatory 03/21/2024 9:00 AM EDT [facility] [address] [phone] Zackary Mchugh MD [address] [place] [address] Kidney Stones Urology Comment on above: Kidney Stones Start: 03-03-2024 ANNUAL PCP TEAM CHRONIC DISEASE VISIT ANNUAL PCP TEAM CHRONIC DISEASE VISIT [facility] Start: 11-22-2023 Behavioral Health Screening Behavioral Health Screening [facility] Start: 11-22-2023 Depression Assessment Depression Assessment [facility] Start: 09-16-2023 Thyroid stimulating hormone measurement TSH [facility] Start: 09-01-2023 ANNUAL PCP TEAM CHRONIC DISEASE VISIT ANNUAL PCP TEAM CHRONIC DISEASE VISIT [facility] Start: 08-20-2023 End: 10-20-2023 25-hydroxyvitamin D3 [Mass/volume] in Serum or Plasma VITAMIN D 25 HYDROXY Lab Routine Vitamin D deficiency Expected: 08/20/2023, Expires: 10/20/2023 [facility] Work Phone: Comment on above: Expected: 08/20/2023, Expires: Start: 08-20-2023 End: 10-20-2023 CBC W Auto Differential panel - Blood CBC + DIFF Lab Routine Primary thyroid papillary carcinoma (HCC) PTSD (post-traumatic stress disorder) Expected: 08/20/2023, Expires: 10/20/2023 [facility] Work Phone: Comment on above: Expected: 08/20/2023, Expires: 3 Start: 08-20-2023 End: 10-20-2023 Comprehensive metabolic 2000 panel - Serum or Plasma COMP METABOLIC PANEL Lab Routine Hypertension, essential Expected: 08/20/2023, Expires: 10/20/2023 [facility] Work Phone: Comment on above: Expected: 08/20/2023, Expires: Start: 08-20-2023 End: 10-20-2023 Hemoglobin A1c in Blood HGB A1C Lab Routine Encounter for screening for diabetes mellitus Expected: 08/20/2023, Expires: 10/20/2023 [facility] Work Phone: Comment on above: Expected: 08/20/2023, Expires: 3 Start: 08-20-2023 End: 10-20-2023 LIPID PANEL, NONFASTING LIPID PANEL, NONFASTING Lab Routine Hypertension, essential Expected: 08/20/2023, Expires: 10/20/2023 [facility] Work Phone: Comment on above: Expected: 08/20/2023, Expires: 3 Start: 08-20-2023 End: 10-20-2023 Urinalysis complete panel - Urine URINALYSIS, WITH MICROSCOPIC Lab Routine Hypertension, essential Expected: 08/20/2023, Expires: 10/20/2023 [facility] Work Phone: Comment on above: Expected: 08/20/2023, Expires: 3 Start: 07-23-2023 Covid-19 Vaccine () Covid-19 Vaccine () [facility] Start: 07-23-2023 Influenza vaccination [facility] Start: 07-06-2023 Adult depression screening assessment DEPRESSION SCREENING [facility] Start: 07-06-2023 ANNUAL PCP TEAM CHRONIC DISEASE VISIT ANNUAL PCP TEAM CHRONIC DISEASE VISIT [facility] Start: 04-27-2023 End: 06-27-2023 Thyrotropin [Units/volume] in Serum or Plasma [facility] Work Phone: Comment on above: Expected: 04/27/2023, Expires: 3 Start: 04-27-2023 End: 06-27-2023 Thyroxine (T4) free [Mass/volume] in Serum or Plasma [facility] Work Phone: Comment on above: Expected: 04/27/2023, Expires: 3 Start: 04-27-2023 End: 06-27-2023 Triiodothyronine (T3) [Mass/volume] in Serum or Plasma [facility] Work Phone: Comment on above: Expected: 04/27/2023, Expires: 3 Start: 03-18-2023 Thyroid stimulating hormone measurement TSH [facility] Start: 03-17-2023 End: 03-17-2023 Patient encounter procedure 03/17/2023 Office Visit Endocrinology, Diabetes & Metabolism Tawanna Rivera MD [address] [facility] [place] [address] Division of Endocrinology Start: 03-03-2023 End: 05-03-2023 LIPID PANEL, NONFASTING LIPID PANEL, NONFASTING Lab Routine Hypertension, essential Expected: 03/03/2023, Expires: 05/03/2023 [facility] Work Phone: Comment on above: Expected: 03/03/2023, Expires: 3 Start: 11-22-2022 DEPRESSION ASSESSMENT DEPRESSION ASSESSMENT [facility] Start: 09-16-2022 End: 09-16-2023 THYROGLOBULIN&THYROGLOBUL IN AB [facility] Comment on above: Expected: 09/16/2022, Expires: 3 Start: 09-16-2022 End: 09-16-2022 Patient encounter procedure 09/16/2022 Office Visit Endocrinology, Diabetes & Metabolism Tawanna Rivera MD [facility] [place] [address] Division of Endocrinology Start: 08-11-2022 Potassium [Moles/volume] in Serum or Plasma POTASSIUM [facility] Start: 07-23-2022 Influenza vaccination [facility] Start: 07-06-2022 End: 09-05-2022 Hemoglobin A1c in Blood [facility] Work Phone: Comment on above: Expected: 07/06/2022, Expires: 2 Start: 07-06-2022 End: 09-05-2022 Thyrotropin [Units/volume] in Serum or Plasma [facility] Work Phone: Comment on above: Expected: 07/06/2022, Expires: 2 Start: 06-04-2022 Thyroid stimulating hormone measurement TSH [facility] Start: 05-06-2022 PAP TESTING PAP TESTING [facility] Start: 05-06-2022 Screening for malignant neoplasm of cervix Pap Testing [facility] Start: 04-21-2022 End: 04-21-2022 Telemedicine consultation with patient 04/21/2022 Telemedicine Otolaryngology Osvaldo Tapia MD [address] [place] [phone] Department of Otolaryngology Start: 04-17-2022 End: 04-17-2022 Patient encounter procedure 04/17/2022 Appointment Magnetic Resonance Imaging Karen Land, KIMBERLEY-STATISTICAL FINANCIAL ANALYST [address] [place] [phone] Imaging and Mammography [facility] [place] Start: 03-26-2022 End: 03-26-2023 MR Salivary gland MRI SIALOGRAM Imaging Routine Sialadenitis Expected: 03/26/2022, Expires: 03/26/2023 [facility] Comment on above: Expected: 03/26/2022, Expires: Start: 03-26-2022 End: 03-26-2022 ambulatory 03/26/2022 Rehab Services Visit Voice & Swallowing Osvaldo Tapia MD [address] [place] [phone] [facility] Start: 03-26-2022 End: 03-26-2022 Patient encounter procedure 03/26/2022 Office Visit Otolaryngology Osvaldo Tapia MD [address] [place] [phone] Department of Otolaryngology Start: 10-15-2021 End: 10-15-2021 Patient encounter procedure 10/15/2021 Office Visit Endocrinology, Diabetes & Metabolism Tawanna Rivera MD [address] [facility] [place] [address] Division of Endocrinology Start: 07-23-2021 Influenza vaccination INFLUENZA VACCINE (#1) [facility] Start: 2021 HPV TESTING HPV TESTING [facility] Start: 2021 Screening for malignant neoplasm of cervix HPV Testing [facility] Start: 11-04-2020 ANNUAL PCP TEAM CHRONIC DISEASE VISIT ANNUAL PCP TEAM CHRONIC DISEASE VISIT [facility] Start: 05-06-2020 Screening for malignant neoplasm of cervix Cervical Cancer Screening [facility] Start: 05-20-2018 Adult depression screening assessment DEPRESSION SCREENING [facility] Start: 2012 Screening for malignant neoplasm of cervix CERVICAL CANCER SCREENING DISCUSSION [facility] Start: 2010 Third diphtheria, tetanus and acellular pertussis (DTaP) vaccination TDAP (ADULT) [facility] Start: 2010 Zoster vaccine hzv live for subcutaneous use ZOSTER (SHINGLES) VACCINE (1 of 2) [facility] Start: 2009 ANNUAL PCP TEAM CHRONIC DISEASE VISIT ANNUAL PCP TEAM CHRONIC DISEASE VISIT [facility] Start: 2009 BP CONTROLLED (<130/80) BP CONTROLLED (<130/80) [facility] Start: 2009 Depression Screening Depression Screening [facility] Start: 2009 HEPATITIS C SCREENING HEPATITIS C SCREENING [facility] Start: 2009 Hepatitis C screening Hepatitis C Screening [facility] Start: 2009 SPIROMETRY SPIROMETRY [facility] Start: 2009 Tetanus vaccination TETANUS [facility] Start: 2006 HIV screening HIV SCREENING DISCUSSION [facility] Start: 2003 COVID-19 VACCINE (1) COVID-19 VACCINE (1) [facility] Start: 1997 PNEUMOCOCCAL (1 - PCV) PNEUMOCOCCAL (1 - PCV) [facility] Start: 1997 Pneumococcal vaccination [facility] Start: 1997 PNEUMOCOCCAL VACCINE SERIES (1 - PCV) PNEUMOCOCCAL VACCINE SERIES (1 - PCV) [facility] Start: 1997 PNEUMOCOCCAL VACCINE SERIES (1 of 2 - PCV) PNEUMOCOCCAL VACCINE SERIES (1 of 2 - PCV) [facility] Start: 1996 COVID-19 VACCINE (#1) COVID-19 VACCINE (#1) [facility] Start: 1996 COVID-19 VACCINE (1) COVID-19 VACCINE (1) [facility] Start: 1991 COVID-19 VACCINE (#1) COVID-19 VACCINE (#1) [facility] Start: 1991 Hepatitis C antibody, confirmatory test HEPATITIS C VIRUS SCREENING [facility] Start: 1991 Hepatitis C screening HEPATITIS C VIRUS SCREENING [facility] Bacteria identified in Urine by Culture URINE CULTURE Microbiology Routine Dysuria Ordered: 09/29/2024 [facility] Work Phone: Comment on above: Ordered: 09/29/2024 CBC W Auto Different ial panel - Blood CBC + DIFF Lab Routine Hypertension, essential Weight gain Primary thyroid papillary carcinoma (HCC) 07/06/2022 10:35 AM EDT [facility] Work Phone: COVID & INFLUENZA A/ B & RSV NAAT, ROUTINE COVID & INFLUENZA A/B & RSV NAAT, ROUTINE Microbiology Routine URI, acute 01/07/2024 11:20 AM EST [facility] Work Phone: COVID & INFLUENZA A/ B & RSV PCR, ROUTINE COVID & INFLUENZA A/B & RSV PCR, ROUTINE Microbiology Routine Viral illness Ordered: 09/15/2024 [facility] Work Phone: Comment on above: Ordered: 09/15/2024 End: 05-26-2024 Ct angiography chest w/contrast/noncontrast CTA CHEST (NONGATED) W IVCON Radiology STAT Adverse effect of treatment, initial encounter 1 Occurrences starting 04/27/2023 until 05/26/2024 [facility] Work Phone: Comment on above: 1 Occurrences starting 04/27/2023 until 05/26/2024 End: 05-26-2024 CTA NECK W IVCON CTA NECK W IVCON Radiology Routine Adverse effect of treatment, initial encounter 1 Occurrences starting 04/27/2023 until 05/26/2024 [facility] Work Phone: Comment on above: 1 Occurrences starting 04/27/2023 until 05/26/2024 Dstrj neurolytic age nt other peripheral nerve NRV DESTR RFA, CHEM OTHER Procedures Routine SI (sacroiliac) joint dysfunction Ordered: 04/07/2022 [facility] Work Phone: Comment on above: Ordered: 04/07/2022 Dstrj neurolytic age nt other peripheral nerve NRV DESTR RFA, CHEM OTHER Procedures Routine SI (sacroiliac) joint dysfunction Ordered: 11/25/2022 [facility] Work Phone: Comment on above: Ordered: 11/25/2022 Dstrj neurolytic age nt other peripheral nerve NRV DESTR RFA, CHEM OTHER Procedures Routine SI (sacroiliac) joint dysfunction Ordered: 06/08/2023 [facility] Work Phone: Comment on above: Ordered: 06/08/2023 Dstrj neurolytic age nt other peripheral nerve NRV DESTR RFA, CHEM OTHER Procedures Routine SI (sacroiliac) joint dysfunction Ordered: 03/16/2024 [facility] Work Phone: Comment on above: Ordered: 03/16/2024 Dstrj neurolytic age nt other peripheral nerve NRV DESTR RFA, CHEM OTHER Procedures Routine SI (sacroiliac) joint dysfunction Ordered: 09/18/2024 [facility] Work Phone: Comment on above: Ordered: 09/18/2024 Dstrj neurolytic age nt other peripheral nerve NRV DESTR RFA, CHEM OTHER Procedures Routine SI (sacroiliac) joint dysfunction Ordered: 03/02/2025 [facility] Work Phone: Comment on above: Ordered: 03/02/2025 Inject si joint arthrgrphy&/anes/steroid w/jayce INJECTION PROCEDURE FOR SACROILIAC Procedures Routine SI (sacroiliac) joint dysfunction Sacroiliitis, not elsewhere classified (HCC) 1 Occurrences starting 01/12/2023 [facility] Work Phone: Comment on above: 1 Occurrences starting 01/12/2023 End: 01-14-2026 MR Brain WO contrast MRI BRAIN WO IVCON Radiology Routine Migraine without aura and without status migrainosus, not intractable 1 Occurrences starting 12/15/2024 until 01/14/2026 [facility] Work Phone: Comment on above: 1 Occurrences starting 12/15/2024 until 01/14/2026 End: 06-14-2025 MR Lumbar spine WO contrast MRI LUMBAR SPINE WO IVCON Radiology Routine Spinal stenosis of lumbar region, unspecified whether neurogenic claudication present Radiculopathy, lumbar region Spinal stenosis of lumbar region with neurogenic claudication 1 Occurrences starting 05/16/2024 until 06/14/2025 [facility] Work Phone: Comment on above: 1 Occurrences starting 05/16/2024 until 06/14/2025 End: 04-17-2022 MR Salivary gland [facility] Comment on above: 1 Occurrences starting 04/17/2022 until 04/17/2022 End: 05-25-2025 SPIROMETRY - BASELINE AND POST DILATOR SPIROMETRY - BASELINE AND POST DILATOR PFT Routine Exercise-induced asthma SOB (shortness of breath) 1 Occurrences starting 04/25/2024 until 05/25/2025 [facility] Work Phone: Comment on above: 1 Occurrences starting 04/25/2024 until 05/25/2025 SPIROMETRY - BASELIN E AND POST DILATOR SPIROMETRY - BASELINE AND POST DILATOR PFT Routine Exercise-induced asthma SOB (shortness of breath) 04/26/2024 11:16 AM EDT [facility] Work Phone: [facility] Immunizations Immunization Date Immunization Notes Care Provider Isiah morataya 10-19-2017 influenza virus vaccine, unspecified formulation Carlie Brownlee APRN.CNP Work Phone: [facility] 09-29-2016 influenza, injectabl e, quadrivalent, contains preservative [employer] [facility] Work Phone: [facility] Work Phone: 09-29-2016 influenza virus vaccine, unspecified formulation Tawanna Rivera MD Work Phone: [facility] 03-19-2015 tetanus toxoid, redu jennifer diphtheria toxoid, and acellular pertussis vaccine, adsorbed [facility] Work Phone: [facility] Work Phone: 08-24-2012 influenza virus vaccine, unspecified formulation [facility] Work Phone: [facility] 08-24-2009 influenza virus vaccine, unspecified formulation [facility] Work Phone: [facility] Work Phone: 10-05-2008 influenza virus vaccine, unspecified formulation [facility] Work Phone: [facility] Work Phone: 06-08-2008 human papilloma viru s vaccine, quadrivalent [facility] Work Phone: [facility] Work Phone: 04-24-2008 hepatitis A vaccine, unspecified formulation [facility] Work Phone: [facility] Work Phone: 02-10-2008 human papilloma viru s vaccine, quadrivalent [facility] Work Phone: [facility] Work Phone: 12-07-2007 human papilloma viru s vaccine, quadrivalent [facility] Work Phone: [facility] Work Phone: 09-20-2007 influenza virus vaccine, unspecified formulation [facility] Work Phone: [facility] Work Phone: 09-20-2006 influenza virus vaccine, unspecified formulation [facility] Work Phone: [facility] Work Phone: 07-23-2005 Meningococcal, MCV4, unspecified conjugate formulation(groups A, C, Y and W-135) [facility] Work Phone: [facility] Work Phone: 12-26-2002 diphtheria and tetan us toxoids, adsorbed for pediatric use [facility] Work Phone: [facility] Work Phone: 12-26-2002 measles, mumps and rubella virus vaccine [employer] [facility] Work Phone: [facility] Work Phone: 05-01-2002 hepatitis B vaccine, pediatric or pediatric/adolescent dosage [employer] [facility] Work Phone: [facility] Work Phone: 10-24-2001 hepatitis B vaccine, pediatric or pediatric/adolescent dosage [employer] Work Phone: [facility] Work Phone: 09-27-2001 hepatitis B vaccine, pediatric or pediatric/adolescent dosage [employer] [facility] Work Phone: [facility] Work Phone: 02-18-1998 trivalent poliovirus vaccine, live, oral [employer] [facility] Work Phone: [facility] Work Phone: 11-15-1996 Chicken Pox (disease) [employer] Work Phone: [facility] Work Phone: 10-06-1993 diphtheria, tetanus toxoids and pertussis vaccine [employer] [facility] Work Phone: [facility] Work Phone: 09-20-1992 measles, mumps and rubella virus vaccine [employer] [facility] Work Phone: [facility] Work Phone: 1991 diphtheria, tetanus toxoids and pertussis vaccine [employer] [facility] Work Phone: [facility] Work Phone: 1991 haemophilus influenz ae type b vaccine, HbOC conjugate [employer] [facility] Work Phone: [facility] Work Phone: 1991 diphtheria, tetanus toxoids and pertussis vaccine [employer] [facility] Work Phone: [facility] Work Phone: 1991 trivalent poliovirus vaccine, live, oral [employer] Work Phone: [facility] Work Phone: 1991 diphtheria, tetanus toxoids and pertussis vaccine [employer] Work Phone: [facility] Work Phone: 1991 haemophilus influenz ae type b vaccine, HbOC conjugate [employer] Work Phone: [facility] Work Phone: 1991 trivalent poliovirus vaccine, live, oral [employer] Work Phone: [facility] Work Phone: Payers Date Payer Category Payer Private Health Insurance [id number] 2024 Private Health Insurance [id number] 2024 Self-pay 2020 Unknown [id number] 2020 Unknown [id number] 2017 Medicaid [id number] 2017 Unknown [id number] 1991 Unknown [id number] 2.16.8 40.1.089328.3.579.2.419 1991 Unknown [id number] 2.16.8 40.1.961599.3.579.2.419 1991 Unknown [id number] 2.16.8 40.1.903740.3.579.2.419 1991 Unknown [id number] 2.16.8 40.1.057139.3.579.2.419 1991 Unknown [id number] 2.16.8 40.1.854699.3.579.2.419 1991 Unknown [id number] 2.16. [id number] 1991 Unknown [id number] 2.16. [id number] 1991 Unknown [id number] 2.16.8 40.1.054568.3.579.2.651 Unknown [id number] Unknown [id number] 2.16.8 40.1.864117.3.579.2.462 Unknown [id number] 2.16.8 40.1.472261.3.579.2.462 Unknown [id number] 2.16.8 40.1.583263.3.579.2.462 Unknown [id number] 2.16.8 40.1.023819.3.579.2.462 Unknown [id number] 2.16.8 40.1.611729.3.579.2.462 Unknown [id number] 2.16.8 40.1.480007.3.579.2.462 Unknown [id number] 2.16.8 40.1.657651.3.579.2.462 Unknown [id number] 2.16.8 40.1.082676.3.579.2.462 Unknown [id number] 2.16.8 40.1.582417.3.579.2.462 Unknown [id number] 2.16.8 40.1.989862.3.579.2.462 Unknown [id number] 2.16.8 40.1.048051.3.579.2.462 Unknown [id number] 2.16.8 40.1.543720.3.579.2.462 Unknown [id number] 2.16.8 40.1.436450.3.579.2.462 Unknown [id number] 2.16.8 40.1.966397.3.579.2.462 Unknown [id number] 2.16.8 40.1.166743.3.579.2.462 Unknown [id number] 2.16.8 40.1.300414.3.579.2.462 Unknown [id number] 2.16.8 40.1.794865.3.579.2.462 Unknown [id number] 2.16.8 40.1.020779.3.579.2.462 Social History Date Type Detail Facility Start: 10-16-2020 End: 07-06-2022 Tobacco smoking status NHIS Never smoker [facility] Start: 10-16-2020 End: 07-06-2022 Tobacco use and exposure Never used [facility] Start: 06-06-2021 End: 05-01-2024 Alcohol intake Ex-drinker (finding) [facility] Start: 01-15-2021 History SDOH Alcohol Frequency 2 [facility] Start: 01-15-2021 Alcohol Comment occassional [facility] Start: 1990 Sex Assigned At Not on file O [facility] Start: 06-17-2021 End: 07-30-2022 Exposure to SARS-CoV-2 (event) Not sure [facility] Start: 01-06-2022 End: 01-05-2025 Alcohol intake Current non-drinker of alcohol (finding) [facility] Start: 07-27-2019 History SDOH Alcohol Comment 2-3 x yearly [facility] Start: 03-27-2022 End: 06-26-2022 Exposure to SARS-CoV-2 (event) Unable to assess [facility] Start: 03-03-2023 End: 04-27-2023 History of Social function [facility] Work Phone: Start: 03-03-2023 End: 04-27-2023 Tobacco use panel [facility] Work Phone: Adult Depression Screening Assessment 0 [facility] Work Phone: How often to you hav e a drink containing alcohol? Monthly or less [facility] Medical Equipment Procedure Code Equipment Code Equipment Origin al Text Equipment Identifier Dates Stent Salivary 1 mm Arsen Johnx Radiopaque Short Term - [id number] Start: 06-05-2022 Stent Salivary 1 mm Walvekar Pebax Radiopaque Short Term - [id number] Start: 06-05-2022 Functional Status Date Assessment Result Facility 08-24-2020 Are you deaf, or do you have serious difficulty hearing No 08/24/2020 7:45 AM EDT Belkis Rose RN No [facility] 08-24-2020 Are you blind, or do you have serious difficulty seeing, even when wearing glasses No 08/24/2020 7:45 AM EDT Belkis Rose RN No [facility] 08-24-2020 Do you have serious difficulty walking or climbing stairs No 08/24/2020 7:45 AM EDT Belkis Rose RN No [facility] 08-24-2020 Do you have difficul ty dressing or bathing No 08/24/2020 7:45 AM EDT Belkis Rose RN No [facility] 08-24-2020 Because of a physica l, mental, or emotional condition, do you have difficulty doing errands alone such as visiting a physician's office or shopping No 08/24/2020 7:45 AM EDT Belkis Rose RN No [facility] Mental Status Date Assessment Result Facility 08-24-2020 Because of a physica l, mental, or emotional condition, do you have serious difficulty concentrating, remembering, or making decisions No 08/24/2020 7:45 AM EDT Belkis Rose RN No [facility] Clinical Notes 03-19-2015 to 04-18-2025 Ada Carson LPN - 04/18/2025 9:43 AM EDTTelephone Encounter - Nagi Red MD - 04/17/2025 8:53 AM EDTTelephone Encounter - Nagi Red MD - 04/17/2025 8:53 AM EDT Note Date & Type Note Facility 04-18-2025 Note HNO ID: [id number] Author: ADA CARSON LPN Service: ? Author Type: LICENSED NURSE Type: Progress Notes Filed: 04/18/2025 09:44 Note Text: Scan on 04/17/2025 10:15 PM by ProviderDami PA-C: Consultation - Emergency Medicine [facility] 04-18-2025 History of Present illness Narrative Scan on 04/17/2025 10:15 PM by ProviderDami PA-C: Consultation - Emergency Medicine documented in this encounter [facility] 04-17-2025 Telephone encounter Note Noted. [facility] 04-17-2025 Miscellaneous Notes Noted. Patient calling said she has been vomiting all night, advised to go back to Er for evaluation, need IV hydration. Patient said she needs to have the MRCP done, was told may have gall stone in the duct blocking things. Patient said she was going to go back to [facility] ER, cancelled her ER follow up appt scheduled for today with PCP. documented in this encounter [facility] 04-17-2025 Telephone encounter Note Patient calling said she has been vomiting all night, advised to go back to Er for evaluation, need IV hydration. Patient said she needs to have the MRCP done, was told may have gall stone in the duct blocking things. Patient said she was going to go back to [facility] ER, cancelled her ER follow up appt scheduled for today with PCP. [facility] 03-20-2025 Telephone encounter Note Contacted patient and she went to [facility] ER. She is scheduled to Urology Dr. Gonzáles. Patient also set up for ER follow up with Dr. Red. Jace Wallis MA [facility] 03-20-2025 Miscellaneous Notes Contacted patient and she went to [facility] ER. She is scheduled to Urology Dr. Gonzáles. Patient also set up for ER follow up with Dr. Red. Jace Wallis MA documented in this encounter [facility] 03-20-2025 Note HNO ID: [id number] Author: ADA CARSON LPN Service: ? Author Type: LICENSED NURSE Type: Progress Notes Filed: 03/20/2025 07:32 Note Text: Scan on 03/20/2025 7:19 AM by ProviderDami PA-C: Consultation - Emergency Medicine [facility] 03-20-2025 History of Present illness Narrative Scan on 03/20/2025 7:19 AM by ProviderDami PA-C: Consultation - Emergency Medicine documented in this encounter [facility] 03-19-2025 Telephone encounter Note Called and spoke to the patient and relayed below. Patient verbalized understanding. [facility] 03-19-2025 Miscellaneous Notes Called and spoke to the patient and relayed below. Patient verbalized understanding. Hold the tramadol while taking the [place]. I am okay with this Patient receives Tramadol 50 mg tablet: take 1-2 pill PO every day for pain. Called and spoke with the patient and she states they prescribed her hydrocodone-acetaminophen 5-325 #8 pills. Routing to provider for review. Patient was seen at [facility] for kidney stones today. Patient was given an RX for pain medication and questions if she can pepper picker or if picking up a pain medication from a different doctor is in breach of her contact with Dr. Contreras. Call [phone]. Patient is requesting a return call as soon as possible, she is experiencing significant pain from stones. documented in this encounter [facility] 03-19-2025 Telephone encounter Note Hold the tramadol while taking the [place]. I am okay with this [facility] 03-19-2025 Telephone encounter Note Patient receives Tramadol 50 mg tablet: take 1-2 pill PO every day for pain. Called and spoke with the patient and she states they prescribed her hydrocodone-acetaminophen 5-325 #8 pills. Routing to provider for review. [facility] 03-19-2025 Telephone encounter Note Patient was seen at [facility] for kidney stones today. Patient was given an RX for pain medication and questions if she can pepper picker or if picking up a pain medication from a different doctor is in breach of her contact with Dr. Contreras. Call [phone]. Patient is requesting a return call as soon as possible, she is experiencing significant pain from stones. [facility] 03-02-2025 Telephone encounter Note Resent the rx [facility] 03-02-2025 Miscellaneous Notes Resent the rx Pharmacist called with the following questions regarding RX for traMADol (ULTRAM) 50 mg tablet: Current prescription reads 1-2 pills/day, which would be a max of 23 days per fill. Would Carlie like to specify an explicit time frame to hold patient to? (i.e. 30 days?) Start date on RX is currently 4/17, but Patient is 24 days past last fill. Does Carlie want Patient to wait until 03/08 or adjust start date for current RX? Please advise jhoan call [facility] at [phone] with recommendations. Lisa Edmond documented in this encounter [facility] 03-02-2025 Note Addended by: CARLIE BROWNLEE on: 03/02/2025 09:59 AM Modules accepted: Orders [facility] 03-02-2025 Miscellaneous Notes Addended by: CARLIE BROWNLEE on: 03/02/2025 09:59 AM Modules accepted: Orders documented in this encounter [facility] 03-02-2025 Telephone encounter Note Pharmacist called with the following questions regarding RX for traMADol (ULTRAM) 50 mg tablet: Current prescription reads 1-2 pills/day, which would be a max of 23 days per fill. Would Carlie like to specify an explicit time frame to hold patient to? (i.e. 30 days?) Start date on RX is currently 417, but Patient is 24 days past last fill. Does Carlie want Patient to wait until 03/08 or adjust start date for current RX? Please advise jhoan [facility] at [phone] with recommendations. Lias Edmond [facility] 03-02-2025 Note HNO ID: [id number] Author: CARLIE BROWNLEE APRN.STATISTICAL FINANCIAL ANALYST Service: ? Author Type: Nurse Practitioner Type: Progress Notes Filed: 03/02/2025 09:34 Note Text: Subjective Greta Andres presents to [facility] for a follow up appointment. Since the last visit, Greta Andres states the pain has been worsening. Current pain intensity is 6 on a scale of 0-10. Pain located in the Right SI Pain described as aching and burning. Symptoms interfere with physical activity, walking, and lifting. Pain is exacerbated by prolong sitting and standing. Pain is mitigated by heat and medication. The medications are partially effective. The patient states the last dose of tramadol was taken yesterday before bed. Patient Entered Questionnaires PROMIS Score Percentiles 06/14/2024 09/18/2024 12/14/2024 PROMIS Global Health Scale Physical Health Percentile 15 15 15 Mental Health Percentile 63 63 63 53 Patient-reported Multiple values from one day are sorted in reverse-chronological order 09/18/2024 12/14/2024 03/02/2025 Physical Health Physical Function Percentile 24* 16* 12 Pain Interference Percentile 12 8 4 Percentiles provide an indication of how the patient's score ranks in relation to the general population. Higher percentile rankings indicate better function/quality of life. 50th percentile is the average of the general population and indicates half of respondents had a worse score. > 31st percentile is within normal limits or better * < 31st percentile is at least ? SD worse than population, which may be clinically relevant < 16th percentile is at least 1 SD worse than population and warrants attention Review of Systems Constitutional: (-) Weight Gain (-) Weight Loss (-) Fatigue Cardiovascular: (-) hx heart surgery (-) Pacemaker Respiratory: (-) Shortness of Breath (-) Cough (-) Snoring Gastrointestinal: (-) Incontinence (-) Diarrhea (-) Constipation (+) Nausea/Vomiting Endocrine: (+) Thyroid Disorder (-) Diabetes Hematologic: (-) Prolonged Bleeding (-) Easy Bruising Genitourinary: (-) Incontinence (-) Frequency (-) Urinary Urgency Skin: (-) Open sores/wound Neurologic: (-) Headache (-) Double Vision Psychiatric: (-) Depression (-) Anxiety (-) Personal History of Alcohol or Substance Abuse (+) Family History of Alcohol or Substance Abuse Chief Complaint Patient presents with: Refill Request Pain Physical Examination Pulse 87 Wt 191 lb 9.3 oz (86.9kg) SpO2 97% LMP 08/18/2024 General:well appearing and alert Skin: Skin color, texture, turgor normal, no rashes or lesions HEENT: normal Cardiovascular: Regular, rate and rhythm Lungs: Normal respiratory rate and rhythm, unlabored on room air Musculoskeletal: Back: Straight leg raising test: Right - Positive at In the sitting position, Left - Positive at In the sitting position, Tenderness over the bilateral SI Joints - Positive Gaenslen's Test on the Bilateral. , Positive Juan R's Test on the Bilateral. Extremities: Extremities normal. No deformities, edema, or skin discoloration Neurological: Mental Status: alert Motor Strength: Motor strength and tone are 5/5 all throughout. Sensory: Not Examined Gait: Normal. Trigger points: gluteal muscles and sacroiliac area. Assessment Assessment : Encounter Diagnosis ICD-10-CM 1. SI (sacroiliac) joint dysfunction M53.3 traMADol (ULTRAM) 50 mg tablet NRV DESTR RFA, CHEM OTHER Patient presents for follow-up visit and medication refill Patient's last right SI ablation was 06-13-2024 with 90% improvement. She would like to repeat the procedure She has chronic bilateral SI pain that radiates into the buttocks and down the posterior thigh to the mid level Her last left SI RFA was October 2024 with 70% improvement. She reports she still doing well She takes tramadol to help manage her chronic pain She reports she starts physical therapy today Will need to complete PT for lumbar MRI approval 03/02/2025 PROMIS CAT Pain Interference PROMIS Pain Interference T-Score (range: 10 - 90) 67 (moderate) PROMIS Pain Interference Percentile 4 Descriptive Summary for PROMIS Physical Function T-score = 38 (Percentile 12) Much difficulty - Do 2 hours of physical labor. Some difficulty - Walk more than a mile (1.6 km). OARRS Report: Reviewed: The patient's OARRS report was reviewed and is consistent with the reported medication use. Plan Injection history was reviewed. Medication use and compliance were reviewed. 1. Continue medication management through the [facility] 2. The following approved medication requests have been transmitted electronically. Requested Prescriptions Signed Prescriptions Disp Refills traMADol (ULTRAM) 50 mg tablet 45 tablet 2 Sig: Take 1-2 pills by mouth once a day for pain, prn Patient should start on March 08 (more content not included)... [facility] 03-02-2025 History of Present illness Narrative Images from the original note were not included. Elida Andres presents to [facility] for a follow up appointment. Since the last visit, Greta Andres states the pain has been worsening. Current pain intensity is 6 on a scale of 0-10. Pain located in the Right SI Pain described as aching and burning. Symptoms interfere with physical activity, walking, and lifting. Pain is exacerbated by prolong sitting and standing. Pain is mitigated by heat and medication. The medications are partially effective. The patient states the last dose of tramadol was taken yesterday before bed. Patient Entered Questionnaires PROMIS Score Percentiles 06/14/2024 09/18/2024 12/14/2024 PROMIS Global Health Scale Physical Health Percentile 15 15 15 Mental Health Percentile 63 63 63 53 Patient-reported Multiple values from one day are sorted in reverse-chronological order 09/18/2024 12/14/2024 03/02/2025 Physical Health Physical Function Percentile 24* 16* 12 Pain Interference Percentile 12 8 4 Percentiles provide an indication of how the patient's score ranks in relation to the general population. Higher percentile rankings indicate better function/quality of life. 50th percentile is the average of the general population and indicates half of respondents had a worse score. > 31st percentile is within normal limits or better * < 31st percentile is at least SD worse than population, which may be clinically relevant < 16th percentile is at least 1 SD worse than population and warrants attention Review of Systems Constitutional: (-) Weight Gain (-) Weight Loss (-) Fatigue Cardiovascular: (-) hx heart surgery (-) Pacemaker Respiratory: (-) Shortness of Breath (-) Cough (-) Snoring Gastrointestinal: (-) Incontinence (-) Diarrhea (-) Constipation (+) Nausea/Vomiting Endocrine: (+) Thyroid Disorder (-) Diabetes Hematologic: (-) Prolonged Bleeding (-) Easy Bruising Genitourinary: (-) Incontinence (-) Frequency (-) Urinary Urgency Skin: (-) Open sores/wound Neurologic: (-) Headache (-) Double Vision Psychiatric: (-) Depression (-) Anxiety (-) Personal History of Alcohol or Substance Abuse (+) Family History of Alcohol or Substance Abuse Chief Complaint Patient presents with: Refill Request Pain Physical Examination Pulse 87 Wt 191 lb 9.3 oz (86.9kg) SpO2 97% LMP 08/18/2024 General:well appearing and alert Skin: Skin color, texture, turgor normal, no rashes or lesions HEENT: normal Cardiovascular: Regular, rate and rhythm Lungs: Normal respiratory rate and rhythm, unlabored on room air Musculoskeletal: Back: Straight leg raising test: Right - Positive at In the sitting position, Left - Positive at In the sitting position, Tenderness over the bilateral SI Joints - Positive Gaenslen's Test on the Bilateral. , Positive Juan R's Test on the Bilateral. Extremities: Extremities normal. No deformities, edema, or skin discoloration Neurological: Mental Status: alert Motor Strength: Motor strength and tone are 5/5 all throughout. Sensory: Not Examined Gait: Normal. Trigger points: gluteal muscles and sacroiliac area. Assessment Assessment : Encounter Diagnosis ICD-10-CM 1. SI (sacroiliac) joint dysfunction M53.3 traMADol (ULTRAM) 50 mg tablet NRV DESTR RFA, CHEM OTHER Patient presents for follow-up visit and medication refill Patient's last right SI ablation was 06-13-2024 with 90% improvement. She would like to repeat the procedure She has chronic bilateral SI pain that radiates into the buttocks and down the posterior thigh to the mid level Her last left SI RFA was October 2024 with 70% improvement. She reports she still doing well She takes tramadol to help manage her chronic pain She reports she starts physical therapy today Will need to complete PT for lumbar MRI approval 03/02/2025 PROMIS CAT Pain Interference PROMIS Pain Interference T-Score (range: 10 - 90) 67 (moderate) PROMIS Pain Interference Percentile 4 Descriptive Summary for PROMIS Physical Function T-score = 38 (Percentile 12) Much difficulty - Do 2 hours of physical labor. Some difficulty - Walk more than a mile (1.6 km). OARRS Report: Reviewed: The patient's OARRS report was reviewed and is consistent with the reported medication use. Plan Injection history was reviewed. Medication use and compliance were reviewed. 1. Continue medication management through the [facility] 2. The following approved medication requests have been transmitted electronically. Requested Prescriptions Signed Prescriptions Disp Refills traMADol (ULTRAM) 50 mg tablet 45 tablet 2 Sig: Take 1-2 pills by mouth once a day for pain, prn Patient should start on March 08, 2025. 3. Interventional procedure options discussed. Ordered and scheduled right SI RFA. If not approved will switch to right SI injection 4. Encouraged regular home exercise program. 5) F/U in 3 months The level of medical decision making for this encounter was low level. I spent a total of 25 minutes on the date of the service which included preparing to see the patient, [id number]-[id number] patient care, completing clinical documentation, performing a medically appropriate examination, ordering medications, tests, or procedures, and care coordination (not separately reported). 1. This document has been created with the use of voice recognition technology. It may contain inaccuracies: (e.g. misspellings, inaccurate syntax or word sense) that have escaped review. 2. The physician, nursing staff and medical assistants are a major part of YOUR TREATMENT TEAM and will be handling your phone calls and inquiries, if any. Unless explicitly told otherwise at the time of your office visit, your study results and ensuing treatment plans will be discussed during your follow-up appointment. If you do not have a follow-up appointment and wish to discuss any issues, please set up an appointment. 3. It is my practice to not fill disability or any other insurance-related forms/documentation. All of the office notes, study results, and other pertinent documentation generated as part of your evaluation will be available to you and to your Primary Care Physician (PCP). Use of this material to complete such forms will be at the discretion of your PCP/referring physician. The above plan and management options were discussed at length with patient. Patient is in agreement with the above and verbalized understanding. Carlie Brownlee APRN, STATISTICAL FINANCIAL ANALYST March 02, 2025 documented in this encounter [facility] 02-19-2025 Telephone encounter Note Advised patient via telephone that her upcoming appointment with Dr. Contreras does not need to be postponed, as this appointment is for a new problem (cervical/thoracic rather than lumbar). Patient verbalized understanding and voiced no additional questions/concerns. Patient to see Dr. Contreras as scheduled. [facility] 02-19-2025 Miscellaneous Notes Advised patient via telephone that her upcoming appointment with Dr. Contreras does not need to be postponed, as this appointment is for a new problem (cervical/thoracic rather than lumbar). Patient verbalized understanding and voiced no additional questions/concerns. Patient to see Dr. Contreras as scheduled. Patient left message on nurse 02/19/25 at 11:37 asking if she should postpone her appointment with Dr. Contreras on 02/26/25 until after she completes physical therapy. Please call patient at [phone]. documented in this encounter [facility] 02-19-2025 Telephone encounter Note Patient left message on nurse 02/19/25 at 11:37 asking if she should postpone her appointment with Dr. Contreras on 02/26/25 until after she completes physical therapy. Please call patient at [phone]. [facility] 02-16-2025 Note HNO ID: [id number] Author: JACE WALLIS MA Service: ? Author Type: Automation Application Engineer Type: Progress Notes Filed: 02/16/2025 16:03 Note Text: Scan on 02/12/2025 9:28 PM by ProviderDami PA-C: GI - gastric emptying study Jace Wallis MA [facility] 02-16-2025 History of Present illness Narrative Scan on 02/12/2025 9:28 PM by ProviderDami PA-C: GI - gastric emptying study Jace Wallis MA documented in this encounter [facility] 02-08-2025 Note Addended by: Kate GODWIN on: 02/08/2025 03:08 PM Modules accepted: Orders [facility] 02-08-2025 Miscellaneous Notes Addended by: NAOMI GODWIN on: 02/08/2025 03:08 PM Modules accepted: Orders Procedure: Lumbar MRI Procedure Date: 02/13/2025 Auth Status: DENIED Denial Rationale: Your doctors request for a(n) Lumbar Spine MRI (Magnetic Resonance Imaging pictures of inside your lower spine) cannot be approved. We made this decision based on [employer] Clinical Guideline 044 for Lumbar Spine MRI. Information Relied Upon Based on what was given, you have pain in your back, your doctors request cannot be approved. A person might need a(n) Lumbar Spine MRI if these notes have been given notes from your doctor that show you tried back exercises (such as formal physical therapy, a medically directed home exercise program, or chiropractic treatments) for six weeks and did not get better. The dates need to show this was done in the last six months. (Documentation that shows participation may include the following: a discharge summary, notes stating the total number of visits with dates, or full details of the home exercise plan and days performed). The information we got did not include these notes. DONA: 12/14/2024 w/Carlie Brownlee CNP PLAN: The following approved medication requests have been transmitted electronically: Ultram Follow up in the office in 3 months Lumbar MRI order placed 05/16/2024. PT: Not completed MyChart message sent. PT order pended for provider review. Routing to provider. documented in this encounter [facility] 02-08-2025 Telephone encounter Note Procedure: Lumbar MRI Procedure Date: 02/13/2025 Auth Status: DENIED Denial Rationale: Your doctors request for a(n) Lumbar Spine MRI (Magnetic Resonance Imaging pictures of inside your lower spine) cannot be approved. We made this decision based on [employer] Clinical Guideline 044 for Lumbar Spine MRI. Information Relied Upon Based on what was given, you have pain in your back, your doctors request cannot be approved. A person might need a(n) Lumbar Spine MRI if these notes have been given notes from your doctor that show you tried back exercises (such as formal physical therapy, a medically directed home exercise program, or chiropractic treatments) for six weeks and did not get better. The dates need to show this was done in the last six months. (Documentation that shows participation may include the following: a discharge summary, notes stating the total number of visits with dates, or full details of the home exercise plan and days performed). The information we got did not include these notes. DONA: 12/14/2024 w/Carlie Brownlee CNP PLAN: The following approved medication requests have been transmitted electronically: Ultram Follow up in the office in 3 months Lumbar MRI order placed 05/16/2024. PT: Not completed [employer] message sent. PT order pended for provider review. Routing to provider. [facility] 02-07-2025 Note HNO ID: [id number] Author: JACE WALLIS MA Service: ? Author Type: Automation Application Engineer Type: Progress Notes Filed: 02/07/2025 17:19 Note Text: Scan on 02/02/2025 1:13 PM by Provider, External, PA-C: Miscellaneous Lab Scan on 02/02/2025 2:41 PM by Provider, External, PA-C: Miscellaneous Lab Scan on 02/03/2025 7:48 PM by Provider External, PA-C: Miscellaneous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 unspecified ovarian cyst Ovarian cyst Other joint derangement, not elsewhere classified, lower leg 08/20/2008 Papillary thyroid carcinoma ([facility]) 07/21/2019 PMH - PAST MEDICAL HISTORY OF r thumb broken Post-surgical hypothyroidism 08/25/2019 Primary thyroid papillary carcinoma ([facility]) 07/21/2019 PTSD (post-traumatic stress disorder) 02/14/2018 PTSD (post-traumatic stress disorder) S/P total thyroidectomy 07/31/2019 Sacroiliitis, not elsewhere classified ([facility]) 02/20/2013 SI (sacroiliac) joint dysfunction 11/06/2015 Trauma [...] with the procedure as planned. SIGNATURE: Flaco Contreras MD DATE: February 12, 2023 TIME: 1:09 PM documented in this encounter [facility] 02-06-2023 History of Present illness Narrative Scan on 02/02/2023 7:57 AM by External Provider: DONNA Wallis MA documented in this encounter [facility] 01-26-2023 History of Present illness Narrative Please see labs: Scan on 01/23/2023 11:14 AM by External Provider: Miscellaneous Lab Ruthann Mitchell LPN documented in this encounter [facility] 01-22-2023 History of Present illness Narrative Scan on 01/19/2023 4:20 PM [...] 01/21/2023 3:43 PM by External Provider: Ultrasound Jace Wallis MA documented in this encounter [facility] 01-22-2023 History of Present illness Narrative Subjective HPI Nontoxic-appearing female presents [...] 08/07/2013 Bipolar 1 disorder (HCC) 02/14/2018 Seeing [facility] Behavioral Medicine as of 01/2018 Chronic fatigue [...] to the patient. Lumbago 07/27/[address] Contreras Lumbar degenerative disc disease 07/27/2012 Lupus (systemic lupus erythematosus) ([facility]) Migraine without aura and without status migrainosus, not intractable 05/20/2017 Multiple thyroid nodules 07/26/2019 Other and unspecified ovarian cyst Ovarian cyst Other joint derangement, not elsewhere classified, lower leg 08/20/2008 Papillary thyroid carcinoma ([facility]) 07/21/2019 PMH - PAST MEDICAL HISTORY OF r thumb broken Post-surgical hypothyroidism 08/25/2019 Primary thyroid papillary carcinoma ([facility]) 07/21/2019 PTSD (post-traumatic stress disorder) 02/14/2018 Sacroiliitis, not elsewhere classified ([facility]) 02/20/2013 SI (sacroiliac) joint dysfunction 11/06/2015 Trauma [...] of care. This note was generated using V[employer]UAL [employer] software. It may contain errors in wording, punctuation, or spelling. Nagi Ku APRN.MARGARITA documented in this encounter [facility] 01-12-2023 Miscellaneous Notes Injection order signed off Order for Right Sacroiliac Joint Injection pended to provider at this time documented in this encounter [facility] 11-25-2022 History of Present illness Narrative VIRTUAL VISIT PROGRESS NOTE This is a virtual visit using [employer] video visit. It required patient-provider interaction for [...] 08/07/2013 Bipolar 1 disorder (HCC) 02/14/2018 Seeing [facility] Behavioral Medicine as of 01/2018 Chronic fatigue [...] to the patient. Lumbago 07/27/[address] Contreras Lumbar degenerative disc disease 07/27/2012 Lupus (systemic lupus erythematosus) ([facility]) Migraine without aura and without status migrainosus, not intractable 05/20/2017 Multiple thyroid nodules 07/26/2019 Other and unspecified ovarian cyst Ovarian cyst Other joint derangement, not elsewhere classified, lower leg 08/20/2008 Papillary thyroid carcinoma ([facility]) 07/21/2019 PMH - PAST MEDICAL HISTORY OF r thumb broken Post-surgical hypothyroidism 08/25/2019 Primary thyroid papillary carcinoma ([facility]) 07/21/2019 PTSD (post-traumatic stress disorder) 02/14/2018 Sacroiliitis, not elsewhere classified ([facility]) 02/20/2013 SI (sacroiliac) joint dysfunction 11/06/2015 Trauma [...] which included preparing to see the patient, [id number] patient care, completing clinical documentation, and ordering medications, tests, or procedures Carlie Brownlee APRN.MARGARITA documented in this encounter [facility] 10-12-2022 Miscellaneous Notes Addended by: CHRISTINE VAUGHN [...] again since she is still having issues? Jace Wallis MA Please see pt's message. Ada Carson LPN documented in this encounter [facility] 09-16-2022 History of Present illness Narrative Reason for Visit: Papillary thyroid carcinoma History of Present Illness: Greta Andres is a 31 y.o. female here for the follow up of her papillary thyroid carcinoma (TAYLOR initial stratification intermediate risk). She is s/p total thyroidectomy and central neck dissection on 07/31/[address] Martinez at [facility]. Pathology showed mutifocal PTC with the largest [...] 05/11 356 7.2 11 08/11 5.3 1.2 11 S/p right CND 10/11 150 6.4 <1.8 [...] up in 6 months. Tawanna Rivera MD [employer]le[employer] softener Department of Internal Medicine Division of Endocrinology, Diabetes and Metabolism [facility] documented in this encounter [facility] 09-16-2022 Instructions Stephanie Richards RN - 09/16/2022 11:40 AM EDT Labs today Follow up in 6 months. documented in this encounter [facility] 09-16-2022 Procedure note Associated Ord er(s): WI US,HEAD/NECK TISSUES,REAL TIME ULTRASOUND NOTE Images were [...] 0.9 cm LEFT LATERAL: No suspicious nodes [facility] 09-16-2022 Procedure note Associated Ord er(s): WI US,HEAD/NECK TISSUES,REAL TIME ULTRASOUND NOTE Images were [...] No suspicious nodes documented in this encounter [facility] 09-10-2022 Note PROCEDURE: ULTRASOUN D TRANSVAGINAL NON [...] 2. Dominant 2.4 cm right ovarian follicle [facility] 07-31-2022 Miscellaneous Notes The following approved medication requests have been transmitted electronically. Requested Prescriptions Signed Prescriptions Disp Refills traMADol (ULTRAM) 50 mg tablet 30 tablet 2 Sig: Take 1 tablet by mouth once daily as needed for up to 30 days. Carlie Brownlee APRN.MARGARITA Received a refill request via Edxactt from the patient for the following medication(s): Requested Prescriptions Pending Prescriptions Disp Refills traMADol (ULTRAM) 50 mg tablet 30 tablet 2 Sig: Take 1 tablet by mouth once daily as needed for up to 30 days. Last (Rx'd/filled) by Carlie Brownlee CNP on 04/07/22 with 2 additional refills. Last Appointment(s) RFA with Dr. Contreras TODAY 04/07/22 (virtual) with Carlie Brownlee CNP Last in office appointment was in 09/2020 Next Appointment(s) None Please review/advise. Vinh Pierson Ma documented in this encounter [facility] 07-07-2022 Miscellaneous Notes Patient notified of results and provider's instructions. Patient verbalizes understanding. Ada Carson LPN Let patient know that TSH is elevated at 6.610. Ask her to reach out to her project control manager for further instructions. They may want additional labs. Update us with any changes they do please. Cholesterol is mildly elevated. Could be false elevation due to changes in TSH levels currently. But still we will want to monitor. Rest of labs are normal Christine Dean PA-C documented in this encounter [facility] 07-06-2022 History of Present illness Narrative Chief Complaint Patient presents with: [...] 08/07/2013 Bipolar 1 disorder (HCC) 02/14/2018 Seeing [facility] Behavioral Medicine as of 01/2018 Chronic fatigue [...] to the patient. Lumbago 07/27/[address] Contreras Lumbar degenerative disc disease 07/27/2012 Lupus (systemic lupus erythematosus) ([facility]) Migraine without aura and without status migrainosus, not intractable 05/20/2017 Multiple thyroid nodules 07/26/2019 Other and unspecified ovarian cyst Ovarian cyst Other joint derangement, not elsewhere classified, lower leg 08/20/2008 Papillary thyroid carcinoma ([facility]) 07/21/2019 PMH - PAST MEDICAL HISTORY OF r thumb broken Post-surgical hypothyroidism 08/25/2019 Primary thyroid papillary carcinoma ([facility]) 07/21/2019 PTSD (post-traumatic stress disorder) 02/14/2018 Sacroiliitis, not elsewhere classified ([facility]) 02/20/2013 SI (sacroiliac) joint dysfunction 11/06/2015 Trauma [...] Dean PA-C documented in this encounter [facility] 06-24-2022 Miscellaneous Notes Pt notified to call into Scheduling to setup appt. Okay to Establish care per Dr. Red. Keli Edgar Ma Notified pt of Provider message below. Offered to assist in scheduling with PA. Keli Edgar Ma I'm ok with patient re-establishing care. documented in this encounter [facility] 06-16-2022 Instructions Caridad Colon RN - 06/16/2022 9:01 AM EDT Please call [phone] to update us on how you are doing in 4-6 weeks. Thank you! Lemon drops and other sialogogues (things that make you salivate) to stimulate saliva. Drink at least 8 glasses of water per day Warm compresses then Parotid (cheek) massage documented in this encounter [facility] 06-16-2022 History of Present illness Narrative PROCEDURES PERFORMED 06/05/2022: 1. Bilateral [...] update RTC PRN documented in this encounter [facility] 04-10-2022 Miscellaneous Notes Patient contacted via telephone to schedule re-injection. Patient scheduled for: May 12, 2022 Patient left voicemail 04/09/2022 at 1146 Patient states she will need to reschedule procedure that is currently scheduled for 04/23/2022 Patient added to injection scheduling spreadsheet in epic Office to contact patient to reschedule documented in this encounter [facility] 04-07-2022 History of Present illness Narrative VIRTUAL VISIT PROGRESS NOTE This is a virtual visit using [employer] video visit. It required patient-provider interaction for [...] 08/07/2013 Bipolar 1 disorder (HCC) 02/14/2018 Seeing [facility] Behavioral Medicine as of 01/2018 Chronic fatigue [...] to the patient. Lumbago 07/27/[address] Contreras Lumbar degenerative disc disease 07/27/2012 Lupus (systemic [...] plan of care as established by Dr. Contreras 2. Ordered and scheduled bilateral SI RFA's. [...] which included preparing to see the patient, [id number] patient care, completing clinical documentation and ordering medications, tests, or procedures Carlie Brownlee APRN.MARGARITA documented in this encounter [facility] 03-26-2022 Instructions JESÚS Alford - 03/26/2022 8:32 AM EDT Welcome to the [facility]. We are here to assist you through your care at the [facility] and [facility] [place]. Dr. Tapia is your Head and Neck Surgical Oncology doctor. It is likely that you will have other cancer doctors to assist with your care. Dr. Tapia's Primary Nurse is Kylah Maddox RN. She can be reached at [phone]. In order to care for you in the best possible way it is very important that you have a relationship with a primary care doctor. If you do not have one please establish care with on in your area or at [facility] at [phone] to make an appointment[address] Tapia will [...] given. Additionally, if you are from a smaller city you may need to fill your liquid narcotic pain medication before you leave [place]. If you are on narcotic pain medication, you could become constipated so please take your bowel medication (laxative) of choice when you start narcotic pain medication. Here are the resources/team members available to you at [facility]: Speech and Language Pathologist (TRADE CLERK)- may be asked by Dr. Shay to assist you with swallowing and speaking issues. They may see you during visits with Dr. Shay and in the hospital. Our TRADE CLERK's and contact phone numbers are below: Roselia eKnny [phone] Yue Bateman [phone] Claire Bridges [phone] Caridad Lechuga [phone] Ana María Baker [phone] Darline [phone] Pipe Organ Builder- JORGE LUIS Dumont and JORGE LUIS Hardwick are available to assist with transportation and housing issues related to medical appointments. The psychiatric social worker also provides counseling and information regarding Advance Directives, End of Life issues, Social Security Disability, and referrals to support groups, and other community agencies. Please let Poppy or Dr. Shay know if you need these services. You may contact Deepali at [phone] or Beata [phone]. [place] [facility] This is for patients who live in [facility] with a cancer diagnosis. The [place] [facility] can provide rides to appointments, nutritional supplements and other services. It requires that your register for services by speaking with our head and neck social workers. If you are outside of [facility] the psychiatric social worker can assist you with what is available in your county. Pastoral Care-Re Examiner Fani Yee-is able to assist your with your spiritual needs. If you wish to see the commercial photographer please let your oncology team know to arrange this. Financial Services- Bimal Rees and Sabine Klein are our financial counselor who can assist your at your appointments or call them at [phone]. Nurses Aide-Currently an order must be placed by Dr. Tapia to have to see the Nurses Aide, Sandy Lopez. If you are already seeing Sandy her direct phone number is [phone]. Pain Management Team is available if Dr. Tapia feels that you need this a referral is made and your pain care is transferred to this group. Integrative Medicine therapy-these are complementary therapies used in addition to your cancer treatment to assist with anxiety, pain, nausea, poor sleep, and exhaustion. If you wish this additional therapy please contact [email or web address] to set up an appointment. You may also request this in the same way if you are inpatient or ask your nurse. THERE IS NO COST FOR THIS SERVICE. Fertility Presevation and Reproductive Health-[facility] offers fertility preservation. This requires a referral from your doctor. If you are interested in sperm banking, egg freezing or other options please let your doctor know before you have chemotherapy or radiation. For information options please call [phone]. [facility]- It is conveniently located on the [facility] on the conference level (CL) of the [facility] and [facility], next door to [facility] and near [facility]. To learn more about [facility], you can visit it on weekdays from 8 a.m. - 9 p.m. and on weekends from 9 a.m. - 6 p.m., stop by our open house event April 26, call [phone] or visit. [facility] Items: Family Medical Leave paperwork is available through your human resources department. Please call human resources and have them fax paperwork to DEANDRE Montero @ [phone]. Miira)- is a communication tool used through the Internet to communicate NON-urgent medical information with your [facility] doctors. You may ask questions, receive results and get notification of appointments. The results will be released to the alaTest (SourceThought) by your doctors and will only be results that do not need additional explanation. If a discussion of the result is important your doctor or nurse will call you. If you wish to sign up this must be done in person. Our matchbook maker staff can assist you to get a password that can be changed when after you log on the first time. IMPORTANT REMINDER: This portal is only for NON-urgent information. If you have urgent information about your condition please call DEANDRE Mcwilliams at [phone]. THERE IS A NEW Our[employer] WU FOR SMART PHONES. USE YOUR WU STORE AND SEARCH [employer], download the wu and follow the prompts to set up the [facility] format. Through this WU, you will be [...] of the pills. documented in this encounter [facility] 03-26-2022 History of Present illness Narrative Chief Complaint: Chief Complaint Patient presents with New Patient HPI: Greta Andres is a 32 y.o. female non-smoker who presents 03/26/22 to the [facility] for evaluation of sialadenitis of the right parotid. Patient has a history of papillary thyroid carcinoma (TAYLOR initial stratification intermediate risk). She is s/p total thyroidectomy and central neck dissection on 07/31/[address] Martinez at [facility]. Pathology showed mutifocal PTC with the largest [...] (Oral) Resp 16 Ht 1.645 m (5' 4.76) Wt 79.6 kg (175 lb 8 oz) [...] to parotid swelling, with Karen ESPINOSA (ORL-HNS ANALYSIS TESTER). I discussed the differential diagnosis and plan [...] female non-smoker who presents 03/26/22 to the [facility] for evaluation of sialadenitis of the right parotid. Patient has a history of papillary thyroid carcinoma (TAYLOR initial stratification intermediate risk). She is s/p total thyroidectomy and central neck dissection on 07/31/[address] Martinez at [facility]. Pathology showed mutifocal PTC with the largest [...] (Oral) Resp 16 Ht 1.645 m (5' 4.76) Wt 79.6 kg (175 lb 8 oz) [...] to parotid swelling, with Karen ESPINOSA (ORL-HNS ANALYSIS TESTER). I discussed the differential diagnosis and plan [...] questions and concerns. documented in this encounter [facility] 03-18-2022 Instructions Stephanie Richards RN - 03/18/2022 12:38 PM EDT Labs today. Placed a referral to ENT to evaluate for salivary gland dysfunction. Follow up in 6 months [facility] History of Present illness Narrative Reason for Visit: Papillary thyroid carcinoma History of Present Illness: Greta Andres is a 31 y.o. female here for the follow up of her papillary thyroid carcinoma (TAYLOR initial stratification intermediate risk). She is s/p total thyroidectomy and central neck dissection on 07/31/[address] Martinez at [facility]. 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 Tawanna Rivera MD Engraver Woodleather softener Department of Internal Medicine Division of Endocrinology, Diabetes and Metabolism [facility] documented in this encounter [facility] 03-18-2022 Procedure note Associated Ord er(s): WI US,HEAD/NECK TISSUES,REAL TIME ULTRASOUND NOTE Images were [...] 0.2 cm LEFT LATERAL: No suspicious nodes [facility] 03-18-2022 Procedure note Associated Ord er(s): WI US,HEAD/NECK TISSUES,REAL TIME ULTRASOUND NOTE Images were [...] suspicious nodes documented in this encounter [facility] 03-05-2022 Instructions Vielka Castillo Ma - 03/05/2022 [...] recommend you avoid the airport, bank and government buildings. Many museums use a similar technology for security, it [...] hours you may call: After Business hours: [phone] have answering service contact your physician documented in this encounter [facility] 03-05-2022 History of Present illness Narrative Patient had a capsule endoscopy. Patient swallowed the capsule without any difficulty. Referring Provider: Susanne Potts Reason for Capsule: Susanne Potts Patient was given discharge instructions. Ingested capsule endoscope without difficulty at 8:12 AM on 03/05/2022. documented in this encounter [facility] 11-15-2021 Note PROCEDURE: CHEST AP PORTABLE REASON [...] No large effusion, dense consolidation, or pneumothorax. [facility] 07-17-2021 History of Present illness Narrative Radiology Service Progress Note PATIENT NAME: Greta Andres DATE OF SERVICE: July 17, 2021 TIME: 12:28 PM PATIENT IDENTITY VERIFICATION COMPLETED USING TWO (2) IDENTIFIERS: Name and Date of confirmed by patient verbally. FALL SCREENING: Has the patient had 2 falls in the last year or 1 fall with injury or currently using an Ambulatory Assistive Device (Walker, Cane, Wheelchair, Crutches, etc.)? No PATIENT GENDER DATA: Female. status: : No status: NO. PATIENT RELEVANT IMPLANT DATA REVIEWED: Not Applicable RADIOLOGY DEPARTMENT: General X-ray: Exam(s) Completed: Lower Extremity X-Ray(s): Ankle, Left and Wt. Bearing PERIPHERAL IV DATA: Not applicable SIGNED BY: RT Davey(R) July 17, 2021 12:28 PM documented in this encounter [facility] 06-20-2021 History of Present illness Narrative MARTIN education completed. Handouts and low iodine cookbook provided to patient. Denies any questions at this time. documented in this encounter [facility] 10-19-2017 History of Past i llness Narrative Problem Noted Date Resolved Date Well adult exam 10/19/2017 07/27/2019 Overview: Last done: 10/20/2017 Attention and concentration deficit 03/19/2015 07/27/2019 Esophageal reflux 02/21/2015 07/27/2019 Routine gynecological examination 08/10/2014 07/27/2019 Overview: [facility] Screening for diabetes mellitus (DM) 08/10/2014 07/27/2019 Need for lipid screening 08/10/2014 019 Fibromyalgia 05/07/2014 07/27/2019 Other acquired deformity of toe 05/20/2009 07/27/2019 Backache, unspecified 06/19/2008 07/27/2019 Overview: Patient has degenerative disc disease and a slipped disc in her back. The symptoms began July 2011. 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 She sees Dr. Salter at [facility] for both of these issues. Patient has multiple questions regarding anesthesia during delivery due to her back issues. I have asked her to discuss this with Dr. Salter at an upcoming appointment and have him dictate a letter to Dr. [place] with any concerns he may have. documented as of this encounter (statuses as of 03/05/2022) [facility] History of Past illness Narrative* Problem Noted Date Resolved Date Well adult exam 10/19/2017 07/27/2019 Overview: Last done: 10/20/2017 Attention and concentration deficit 03/19/2015 07/27/2019 Esophageal reflux 02/21/2015 07/27/2019 Routine gynecological examination 08/10/2014 07/27/2019 Overview: [facility] Screening for diabetes mellitus (DM) 08/10/2014 07/27/2019 Need for lipid screening 08/10/2014 019 Fibromyalgia 05/07/2014 07/27/2019 Other acquired deformity of toe 05/20/2009 07/27/2019 Backache, unspecified 06/19/2008 07/27/2019 Overview: Patient has degenerative disc disease and a slipped disc in her back. The symptoms began July 2011. 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 She sees Dr. Salter at [facility] for both of these issues. Patient has multiple questions regarding anesthesia during delivery due to her back issues. I have asked her to discuss this with Dr. Salter at an upcoming appointment and have him dictate a letter to Dr. [place] with any concerns he may have. documented as of this encounter (statuses as of 03/09/2022) [facility] History of Past illness Narrative* Problem Noted Date Resolved Date Well adult exam 10/19/2017 07/27/2019 Overview: Last done: 10/20/2017 Attention and concentration deficit 03/19/2015 07/27/2019 Esophageal reflux 02/21/2015 07/27/2019 Routine gynecological examination 08/10/2014 07/27/2019 Overview: [facility] Screening for diabetes mellitus (DM) 08/10/2014 07/27/2019 Need for lipid screening 08/10/2014 019 Fibromyalgia 05/07/2014 07/27/2019 Other acquired deformity of toe 05/20/2009 07/27/2019 Backache, unspecified 06/19/2008 07/27/2019 Overview: Patient has degenerative disc disease and a slipped disc in her back. The symptoms began July 2011. 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 She sees Dr. Salter at [facility] for both of these issues. Patient has multiple questions regarding anesthesia during delivery due to her back issues. I have asked her to discuss this with Dr. Salter at an upcoming appointment and have him dictate a letter to Dr. [place] with any concerns he may have. documented as of this encounter (statuses as of 04/07/2022) [facility] History of Past illness Narrative* Problem Noted Date Resolved Date Well adult exam 10/19/2017 07/27/2019 Overview: Last done: 10/20/2017 Attention and concentration deficit 03/19/2015 07/27/2019 Esophageal reflux 02/21/2015 07/27/2019 Routine gynecological examination 08/10/2014 07/27/2019 Overview: [facility] for diabetes mellitus (DM) 08/10/2014 07/27/2019 Need for lipid screening 08/10/2014 019 Fibromyalgia 05/07/2014 07/27/2019 Other acquired deformity of toe 05/20/2009 07/27/2019 Backache, unspecified 06/19/2008 07/27/2019 Overview: Patient has degenerative disc disease and a slipped disc in her back. The symptoms began July 2011. 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 She sees Dr. Salter at [facility] for both of these issues. Patient has multiple questions regarding anesthesia during delivery due to her back issues. I have asked her to discuss this with Dr. Salter at an upcoming appointment and have him dictate a letter to Dr. [place] with any concerns he may have. documented as of this encounter (statuses as of 04/10/2022) [facility] History of Past illness Narrative* Problem Noted Date Resolved Date Well adult exam 10/19/2017 07/27/2019 Overview: Last done: 10/20/2017 Attention and concentration deficit 03/19/2015 07/27/2019 Esophageal reflux 02/21/2015 07/27/2019 Routine gynecological examination 08/10/2014 07/27/2019 Overview: [facility] Screening for diabetes mellitus (DM) 08/10/2014 07/27/2019 Need for lipid screening 08/10/2014 019 Fibromyalgia 05/07/2014 07/27/2019 Other acquired deformity of toe 05/20/2009 07/27/2019 Backache, unspecified 06/19/2008 07/27/2019 Overview: Patient has degenerative disc disease and a slipped disc in her back. The symptoms began July 2011. 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 She sees Dr. Salter at [facility] for both of these issues. Patient has multiple questions regarding anesthesia during delivery due to her back issues. I have asked her to discuss this with Dr. Salter at an upcoming appointment and have him dictate a letter to Dr. [place] with any concerns he may have. documented as of this encounter (statuses as of 04/14/2022) [facility] History of Past illness Narrative* Problem Noted Date Resolved Date Well adult exam 10/19/2017 07/27/2019 Overview: Last done: 10/20/2017 Attention and concentration deficit 03/19/2015 07/27/2019 Esophageal reflux 02/21/2015 07/27/2019 Routine gynecological examination 08/10/2014 07/27/2019 Overview: [facility] Screening for diabetes mellitus (DM) 08/10/2014 07/27/2019 Need for lipid screening 08/10/2014 019 Fibromyalgia 05/07/2014 07/27/2019 Other acquired deformity of toe 05/20/2009 07/27/2019 Backache, unspecified 06/19/2008 07/27/2019 Overview: Patient has degenerative disc disease and a slipped disc in her back. The symptoms began July 2011. 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 She sees Dr. Salter at [facility] for both of these issues. Patient has multiple questions regarding anesthesia during delivery due to her back issues. I have asked her to discuss this with Dr. Salter at an upcoming appointment and have him dictate a letter to Dr. [place] with any concerns he may have. documented as of this encounter (statuses as of 05/14/2022) [facility] History of Past illness Narrative* Problem Noted Date Resolved Date Well adult exam 10/19/2017 07/27/2019 Overview: Last done: 10/20/2017 Attention and concentration deficit 03/19/2015 07/27/2019 Esophageal reflux 02/21/2015 07/27/2019 Routine gynecological examination 08/10/2014 07/27/2019 Overview: [facility] Screening for diabetes mellitus (DM) 08/10/2014 07/27/2019 Need for lipid screening 08/10/2014 019 Fibromyalgia 05/07/2014 07/27/2019 Other acquired deformity of toe 05/20/2009 07/27/2019 Backache, unspecified 06/19/2008 07/27/2019 Overview: Patient has degenerative disc disease and a slipped disc in her back. The symptoms began July 2011. 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 She sees Dr. Salter at [facility] for both of these issues. Patient has multiple questions regarding anesthesia during delivery due to her back issues. I have asked her to discuss this with Dr. Salter at an upcoming appointment and have him dictate a letter to Dr. [place] with any concerns he may have. documented as of this encounter (statuses as of 05/26/2022) [facility] History of Past illness Narrative* Problem Noted Date Resolved Date Well adult exam 10/19/2017 07/27/2019 Overview: Last done: 10/20/2017 Attention and concentration deficit 03/19/2015 07/27/2019 Esophageal reflux 02/21/2015 07/27/2019 Routine gynecological examination 08/10/2014 07/27/2019 [facility] for diabetes mellitus (DM) 08/10/2014 07/27/2019 Need for lipid screening 08/10/2014 019 Fibromyalgia 05/07/2014 07/27/2019 Other acquired deformity of toe 05/20/2009 07/27/2019 Backache, unspecified 06/19/2008 07/27/2019 Overview: Patient has degenerative disc disease and a slipped disc in her back. The symptoms began July 2011. 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 She sees Dr. Salter at [facility] for both of these issues. Patient has multiple questions regarding anesthesia during delivery due to her back issues. I have asked her to discuss this with Dr. Salter at an upcoming appointment and have him dictate a letter to Dr. [place] with any concerns he may have. documented as of this encounter (statuses as of 06/24/2022) [facility] History of Past illness Narrative* Problem Noted Date Resolved Date Well adult exam 10/19/2017 07/27/2019 Overview: Last done: 10/20/2017 Attention and concentration deficit 03/19/2015 07/27/2019 Esophageal reflux 02/21/2015 07/27/2019 Routine gynecological examination 08/10/2014 07/27/2019 Overview: [facility] Screening for diabetes mellitus (DM) 08/10/2014 07/27/2019 Need for lipid screening 08/10/2014 019 Fibromyalgia 05/07/2014 07/27/2019 Other acquired deformity of toe 05/20/2009 07/27/2019 Backache, unspecified 06/19/2008 07/27/2019 Overview: Patient has degenerative disc disease and a slipped disc in her back. The symptoms began July 2011. 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 She sees Dr. Salter at [facility] for both of these issues. Patient has multiple questions regarding anesthesia during delivery due to her back issues. I have asked her to discuss this with Dr. Salter at an upcoming appointment and have him dictate a letter to Dr. [place] with any concerns he may have. documented as of this encounter (statuses as of 07/01/2022) [facility] of Past illness Narrative* Problem Noted Date Resolved Date Well adult exam 10/19/2017 07/27/2019 Overview: Last done: 10/20/2017 Attention and concentration deficit 03/19/2015 07/27/2019 Esophageal reflux 02/21/2015 07/27/2019 Routine gynecological examination 08/10/2014 07/27/2019 Overview: [facility] Screening for diabetes mellitus (DM) 08/10/2014 07/27/2019 Need for lipid screening 08/10/2014 019 Fibromyalgia 05/07/2014 07/27/2019 Other acquired deformity of toe 05/20/2009 07/27/2019 Backache, unspecified 06/19/2008 07/27/2019 Overview: Patient has degenerative disc disease and a slipped disc in her back. The symptoms began July 2011. 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 She sees Dr. Salter at [facility] for both of these issues. Patient has multiple questions regarding anesthesia during delivery due to her back issues. I have asked her to discuss this with Dr. Salter at an upcoming appointment and have him dictate a letter to Dr. [place] with any concerns he may have. documented as of this encounter (statuses as of 07/06/2022) [facility] History of Past illness Narrative* Problem Noted Date Resolved Date Well adult exam 10/19/2017 07/27/2019 Overview: Last done: 10/20/2017 Attention and concentration deficit 03/19/2015 07/27/2019 Esophageal reflux 02/21/2015 07/27/2019 Routine gynecological examination 08/10/2014 07/27/2019 Overview: [facility] Screening for diabetes mellitus (DM) 08/10/2014 07/27/2019 Need for lipid screening 08/10/2014 019 Fibromyalgia 05/07/2014 07/27/2019 Other acquired deformity of toe 05/20/2009 07/27/2019 Backache, unspecified 06/19/2008 07/27/2019 Overview: Patient has degenerative disc disease and a slipped disc in her back. The symptoms began July 2011. 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 She sees Dr. Salter at [facility] for both of these issues. Patient has multiple questions regarding anesthesia during delivery due to her back issues. I have asked her to discuss this with Dr. Salter at an upcoming appointment and have him dictate a letter to Dr. [place] with any concerns he may have. documented as of this encounter (statuses as of 07/07/2022) [facility] History of Past illness Narrative* Problem Noted Date Resolved Date Well adult exam 10/19/2017 07/27/2019 Overview: Last done: 10/20/2017 Attention and concentration deficit 03/19/2015 07/27/2019 Esophageal reflux 02/21/2015 07/27/2019 Routine gynecological examination 08/10/2014 07/27/2019 Overview: [facility] Screening for diabetes mellitus (DM) 08/10/2014 07/27/2019 Need for lipid screening 08/10/2014 019 Fibromyalgia 05/07/2014 07/27/2019 Other acquired deformity of toe 05/20/2009 07/27/2019 Backache, unspecified 06/19/2008 07/27/2019 Overview: Patient has degenerative disc disease and a slipped disc in her back. The symptoms began July 2011. 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 She sees Dr. Salter at [facility] for both of these issues. Patient has multiple questions regarding anesthesia during delivery due to her back issues. I have asked her to discuss this with Dr. Salter at an upcoming appointment and have him dictate a letter to Dr. [place] with any concerns he may have. documented as of this encounter (statuses as of 07/31/2022) [facility] History of Past illness Narrative* Problem Noted Date Resolved Date Attention and concentration deficit 03/19/2015 07/27/2019 Esophageal reflux 02/21/2015 07/27/2019 Routine gynecological examination 08/10/2014 07/27/2019 Overview: [facility] Screening for diabetes mellitus (DM) 08/10/2014 07/27/2019 Need for lipid screening 08/10/2014 019 Fibromyalgia 05/07/2014 07/27/2019 Other acquired deformity of toe 05/20/2009 07/27/2019 Backache, unspecified 06/19/2008 07/27/2019 Overview: Patient has degenerative disc disease and a slipped disc in her back. The symptoms began July 2011. 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 She sees Dr. Salter at [facility] for both of these issues. Patient has multiple questions regarding anesthesia during delivery due to her back issues. I have asked her to discuss this with Dr. Salter at an upcoming appointment and have him dictate a letter to Dr. Anderson with any concerns he may have. documented as of this encounter (statuses as of 10/12/2022) [facility]04-28-2015 History of Past illness Narrative* Problem Noted Date Resolved Date Attention and concentration deficit 03/19/2015 07/27/2019 Esophageal reflux 02/21/2015 07/27/2019 Routine gynecological examination 08/10/2014 07/27/2019 Overview: [facility] Screening for diabetes mellitus (DM) 08/10/2014 07/27/2019 Need for lipid screening 08/10/2014 019 Fibromyalgia 05/07/2014 07/27/2019 Other acquired deformity of toe 05/20/2009 07/27/2019 Backache, unspecified 06/19/2008 07/27/2019 Overview: Patient has degenerative disc disease and a slipped disc in her back. The symptoms began July 2011. 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 She sees Dr. Salter at [facility] for both of these issues. Patient has multiple questions regarding anesthesia during delivery due to her back issues. I have asked her to discuss this with Dr. Salter at an upcoming appointment and have him dictate a letter to Dr. Anderson with any concerns he may have. documented as of this encounter (statuses as of 11/26/2022) [facility]04-[facility]2015 History of Past illness Narrative* Problem Noted Date Resolved Date Attention and concentration deficit 03/19/2015 07/27/2019 Esophageal reflux 02/21/2015 07/27/2019 Routine gynecological examination 08/10/2014 07/27/2019 Overview: [facility] Screening for diabetes mellitus (DM) 08/10/2014 07/27/2019 Need for lipid screening 08/10/2014 019 Fibromyalgia 05/07/2014 07/27/2019 Other acquired deformity of toe 05/20/2009 07/27/2019 Backache, unspecified 06/19/2008 07/27/2019 Overview: Patient has degenerative disc disease and a slipped disc in her back. The symptoms began July 2011. 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 She sees Dr. Salter at [facility] for both of these issues. Patient has multiple questions regarding anesthesia during delivery due to her back issues. I have asked her to discuss this with Dr. Salter at an upcoming appointment and have him dictate a letter to Dr. Anderson with any concerns he may have. documented as of this encounter (statuses as of 11/27/2022) [facility]04[facility]2015 History of Past illness Narrative* Problem Noted Date Resolved Date Attention and concentration deficit 03/19/2015 07/27/2019 Esophageal reflux 02/21/2015 07/27/2019 Routine gynecological examination 08/10/2014 07/27/2019 Overview: [facility] Screening for diabetes mellitus (DM) 08/10/2014 07/27/2019 Need for lipid screening 08/10/2014 019 Fibromyalgia 05/07/2014 07/27/2019 Other acquired deformity of toe 05/20/2009 07/27/2019 Backache, unspecified 06/19/2008 07/27/2019 Overview: Patient has degenerative disc disease and a slipped disc in her back. The symptoms began July 2011. 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 She sees Dr. Salter at [facility] for both of these issues. Patient has multiple questions regarding anesthesia during delivery due to her back issues. I have asked her to discuss this with Dr. Salter at an upcoming appointment and have him dictate a letter to Dr. Anderson with any concerns he may have. documented as of this encounter (statuses as of 12/17/2022) [facility] History of Past illness Narrative* Problem Noted Date Resolved Date Attention and concentration deficit 03/19/2015 07/27/2019 Esophageal reflux 02/21/2015 07/27/2019 Routine gynecological examination 08/10/2014 07/27/2019 Overview: [facility] Screening for diabetes mellitus (DM) 08/10/2014 07/27/2019 Need for lipid screening 08/10/2014 019 Fibromyalgia 05/07/2014 07/27/2019 Other acquired deformity of toe 05/20/2009 07/27/2019 Backache, unspecified 06/19/2008 07/27/2019 Overview: Patient has degenerative disc disease and a slipped disc in her back. The symptoms began July 2011. 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 She sees Dr. Salter at [facility] for both of these issues. Patient has multiple questions regarding anesthesia during delivery due to her back issues. I have asked her to discuss this with Dr. Salter at an upcoming appointment and have him dictate a letter to Dr. Anderson with any concerns he may have. documented as of this encounter (statuses as of 01/12/2023) [facility] History of Past illness Narrative* Problem Noted Date Resolved Date Attention and concentration deficit 03/19/2015 07/27/2019 Esophageal reflux 02/21/2015 07/27/2019 Routine gynecological examination 08/10/2014 07/27/2019 Overview: Sees [facility] Screening for diabetes mellitus (DM) 08/10/2014 07/27/2019 Need for lipid screening 08/10/2014 019 Fibromyalgia 05/07/2014 07/27/2019 Other acquired deformity of toe 05/20/2009 07/27/2019 Backache, unspecified 06/19/2008 07/27/2019 Overview: Patient has degenerative disc disease and a slipped disc in her back. The symptoms began July 2011. 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 She sees Dr. Salter at [facility] for both of these issues. Patient has multiple questions regarding anesthesia during delivery due to her back issues. I have asked her to discuss this with Dr. Salter at an upcoming appointment and have him dictate a letter to Dr. Anderson with any concerns he may have. documented as of this encounter (statuses as of 01/22/2023) [facility] History of Past illness Narrative* Problem Noted Date Resolved Date Attention and concentration deficit 03/19/2015 07/27/2019 Esophageal reflux 02/21/2015 07/27/2019 Routine gynecological examination 08/10/2014 07/27/2019 Overview: [facility] Screening for diabetes mellitus (DM) 08/10/2014 07/27/2019 Need for lipid screening 08/10/2014 019 Fibromyalgia 05/07/2014 07/27/2019 Other acquired deformity of toe 05/20/2009 07/27/2019 Backache, unspecified 06/19/2008 07/27/2019 Overview: Patient has degenerative disc disease and a slipped disc in her back. The symptoms began July 2011. 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 She sees Dr. Salter at [facility] for both of these issues. Patient has multiple questions regarding anesthesia during delivery due to her back issues. I have asked her to discuss this with Dr. Salter at an upcoming appointment and have him dictate a letter to Dr. Anderson with any concerns he may have. documented as of this encounter (statuses as of 01/22/2023) [facility] History of Past illness Narrative* Problem Noted Date Resolved Date Attention and concentration deficit 03/19/2015 07/27/2019 Esophageal reflux 02/21/2015 07/27/2019 Routine gynecological examination 08/10/2014 07/27/2019 Overview: [facility] Screening for diabetes mellitus (DM) 08/10/2014 07/27/2019 Need for lipid screening 08/10/2014 019 Fibromyalgia 05/07/2014 07/27/2019 Other acquired deformity of toe 05/20/2009 07/27/2019 Backache, unspecified 06/19/2008 07/27/2019 Overview: Patient has degenerative disc disease and a slipped disc in her back. The symptoms began July 2011. 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 She sees Dr. Salter at [facility] for both of these issues. Patient has multiple questions regarding anesthesia during delivery due to her back issues. I have asked her to discuss this with Dr. Salter at an upcoming appointment and have him dictate a letter to Dr. Anderson with any concerns he may have. documented as of this encounter (statuses as of 01/26/2023) [facility] History of Past illness Narrative* Problem Noted Date Resolved Date Attention and concentration deficit 03/19/2015 07/27/2019 Esophageal reflux 02/21/2015 07/27/2019 Routine gynecological examination 08/10/2014 07/27/2019 Overview: [facility] Screening for diabetes mellitus (DM) 08/10/2014 07/27/2019 Need for lipid screening 08/10/2014 019 Fibromyalgia 05/07/2014 07/27/2019 Other acquired deformity of toe 05/20/2009 07/27/2019 Backache, unspecified 06/19/2008 07/27/2019 Overview: Patient has degenerative disc disease and a slipped disc in her back. The symptoms began July 2011. 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 She sees Dr. Salter at [facility] for both of these issues. Patient has multiple questions regarding anesthesia during delivery due to her back issues. I have asked her to discuss this with Dr. Salter at an upcoming appointment and have him dictate a letter to Dr. Anderson with any concerns he may have. documented as of this encounter (statuses as of 01/28/2023) [facility] History of Past illness Narrative* Problem Noted Date Resolved Date Attention and concentration deficit 03/19/2015 07/27/2019 Esophageal reflux 02/21/2015 07/27/2019 Routine gynecological examination 08/10/2014 07/27/2019 Overview: [facility] Screening for diabetes mellitus (DM) 08/10/2014 07/27/2019 Need for lipid screening 08/10/2014 019 Fibromyalgia 05/07/2014 07/27/2019 Other acquired deformity of toe 05/20/2009 07/27/2019 Backache, unspecified 06/19/2008 07/27/2019 Overview: Patient has degenerative disc disease and a slipped disc in her back. The symptoms began July 2011. 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 She sees Dr. Salter at [facility] for both of these issues. Patient has multiple questions regarding anesthesia during delivery due to her back issues. I have asked her to discuss this with Dr. Salter at an upcoming appointment and have him dictate a letter to Dr. Anderson with any concerns he may have. documented as of this encounter (statuses as of 02/06/2023) [facility] History of Past illness Narrative* Problem Noted Date Resolved Date Attention and concentration deficit 03/19/2015 07/27/2019 Esophageal reflux 02/21/2015 07/27/2019 Routine gynecological examination 08/10/2014 07/27/2019 Overview: [facility] Screening for diabetes mellitus (DM) 08/10/2014 07/27/2019 Need for lipid screening 08/10/2014 019 Fibromyalgia 05/07/2014 07/27/2019 Other acquired deformity of toe 05/20/2009 07/27/2019 Backache, unspecified 06/19/2008 07/27/2019 Overview: Patient has degenerative disc disease and a slipped disc in her back. The symptoms began July 2011. 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 She sees Dr. Salter at [facility] for both of these issues. Patient has multiple questions regarding anesthesia during delivery due to her back issues. I have asked her to discuss this with Dr. Salter at an upcoming appointment and have him dictate a letter to Dr. nAderson with any concerns he may have. documented as of this encounter (statuses as of 02/13/2023) [facility] History of Past illness Narrative* Problem Noted Date Resolved Date Attention and concentration deficit 03/19/2015 07/27/2019 Esophageal reflux 02/21/2015 07/27/2019 Routine gynecological examination 08/10/2014 07/27/2019 Overview: [facility] Screening for diabetes mellitus (DM) 08/10/2014 07/27/2019 Need for lipid screening 08/10/2014 019 Fibromyalgia 05/07/2014 07/27/2019 Other acquired deformity of toe 05/20/2009 07/27/2019 Backache, unspecified 06/19/2008 07/27/2019 Overview: Patient has degenerative disc disease and a slipped disc in her back. The symptoms began July 2011. 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 She sees Dr. Salter at [facility] for both of these issues. Patient has multiple questions regarding anesthesia during delivery due to her back issues. I have asked her to discuss this with Dr. Salter at an upcoming appointment and have him dictate a letter to Dr. Anderson with any concerns he may have. documented as of this encounter (statuses as of 02/17/2023) [facility] History of Past illness Narrative* Problem Noted Date Resolved Date Attention and concentration deficit 03/19/2015 07/27/2019 Esophageal reflux 02/21/2015 07/27/2019 Routine gynecological examination 08/10/2014 07/27/2019 Overview: [facility] Screening for diabetes mellitus (DM) 08/10/2014 07/27/2019 Need for lipid screening 08/10/2014 019 Fibromyalgia 05/07/2014 07/27/2019 Other acquired deformity of toe 05/20/2009 07/27/2019 Backache, unspecified 06/19/2008 07/27/2019 Overview: Patient has degenerative disc disease and a slipped disc in her back. The symptoms began July 2011. 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 She sees Dr. Salter at [facility] for both of these issues. Patient has multiple questions regarding anesthesia during delivery due to her back issues. I have asked her to discuss this with Dr. Salter at an upcoming appointment and have him dictate a letter to Dr. Anderson with any concerns he may have. documented as of this encounter (statuses as of 03/04/2023) [facility] History of Past illness Narrative* Problem Noted Date Resolved Date Attention and concentration deficit 03/19/2015 07/27/2019 Esophageal reflux 02/21/2015 07/27/2019 Routine gynecological examination 08/10/2014 07/27/2019 Overview: [facility] Screening for diabetes mellitus (DM) 08/10/2014 07/27/2019 Need for lipid screening 08/10/2014 019 Fibromyalgia 05/07/2014 07/27/2019 Other acquired deformity of toe 05/20/2009 07/27/2019 Backache, unspecified 06/19/2008 07/27/2019 Overview: Patient has degenerative disc disease and a slipped disc in her back. The symptoms began July 2011. 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 She sees Dr. Salter at [facility] for both of these issues. Patient has multiple questions regarding anesthesia during delivery due to her back issues. I have asked her to discuss this with Dr. Salter at an upcoming appointment and have him dictate a letter to Dr. Anderson with any concerns he may have. documented as of this encounter (statuses as of 03/29/2023) [facility] History of Past illness Narrative* Problem Noted Date Resolved Date Attention and concentration deficit 03/19/2015 07/27/2019 Esophageal reflux 02/21/2015 07/27/2019 Routine gynecological examination 08/10/2014 07/27/2019 Overview: [facility] Screening for diabetes mellitus (DM) 08/10/2014 07/27/2019 Need for lipid screening 08/10/2014 019 Fibromyalgia 05/07/2014 07/27/2019 Other acquired deformity of toe 05/20/2009 07/27/2019 Backache, unspecified 06/19/2008 07/27/2019 Overview: Patient has degenerative disc disease and a slipped disc in her back. The symptoms began July 2011. 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 She sees Dr. Salter at [facility] for both of these issues. Patient has multiple questions regarding anesthesia during delivery due to her back issues. I have asked her to discuss this with Dr. Salter at an upcoming appointment and have him dictate a letter to Dr. Anderson with any concerns he may have. documented as of this encounter (statuses as of 04/02/2023) [facility] History of Past illness Narrative* Problem Noted Date Resolved Date Attention and concentration deficit 03/19/2015 07/27/2019 Esophageal reflux 02/21/2015 07/27/2019 Routine gynecological examination 08/10/2014 07/27/2019 Overview: [facility] Screening for diabetes mellitus (DM) 08/10/2014 07/27/2019 Need for lipid screening 08/10/2014 019 Fibromyalgia 05/07/2014 07/27/2019 Other acquired deformity of toe 05/20/2009 07/27/2019 Backache, unspecified 06/19/2008 07/27/2019 Overview: Patient has degenerative disc disease and a slipped disc in her back. The symptoms began July 2011. 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 She sees Dr. Salter at [facility] for both of these issues. Patient has multiple questions regarding anesthesia during delivery due to her back issues. I have asked her to discuss this with Dr. Salter at an upcoming appointment and have him dictate a letter to Dr. Anderson with any concerns he may have. documented as of this encounter (statuses as of 04/05/2023) [facility] History of Past illness Narrative* Problem Noted Date Resolved Date Attention and concentration deficit 03/19/2015 07/27/2019 Esophageal reflux 02/21/2015 07/27/2019 Routine gynecological examination 08/10/2014 07/27/2019 Overview: [facility] Screening for diabetes mellitus (DM) 08/10/2014 07/27/2019 Need for lipid screening 08/10/2014 019 Fibromyalgia 05/07/2014 07/27/2019 Other acquired deformity of toe 05/20/2009 07/27/2019 Backache, unspecified 06/19/2008 07/27/2019 Overview: Patient has degenerative disc disease and a slipped disc in her back. The symptoms began July 2011. 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 She sees Dr. Salter at [facility] for both of these issues. Patient has multiple questions regarding anesthesia during delivery due to her back issues. I have asked her to discuss this with Dr. Salter at an upcoming appointment and have him dictate a letter to Dr. Anderson with any concerns he may have. documented as of this encounter (statuses as of 04/26/2023) [facility] History of Past illness Narrative* Problem Noted Date Resolved Date Attention and concentration deficit 03/19/2015 07/27/2019 Esophageal reflux 02/21/2015 07/27/2019 Routine gynecological examination 08/10/2014 07/27/2019 Overview: [facility] Screening for diabetes mellitus (DM) 08/10/2014 07/27/2019 Need for lipid screening 08/10/2014 019 Fibromyalgia 05/07/2014 07/27/2019 Other acquired deformity of toe 05/20/2009 07/27/2019 Backache, unspecified 06/19/2008 07/27/2019 Overview: Patient has degenerative disc disease and a slipped disc in her back. The symptoms began July 2011. 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 She sees Dr. Salter at [facility] for both of these issues. Patient has multiple questions regarding anesthesia during delivery due to her back issues. I have asked her to discuss this with Dr. Salter at an upcoming appointment and have him dictate a letter to Dr. Anderson with any concerns he may have. documented as of this encounter (statuses as of 04/27/2023) [facility] History of Past illness Narrative* Problem Noted Date Resolved Date Attention and concentration deficit 03/19/2015 07/27/2019 Esophageal reflux 02/21/2015 07/27/2019 Routine gynecological examination 08/10/2014 07/27/2019 Overview: [facility] Screening for diabetes mellitus (DM) 08/10/2014 07/27/2019 Need for lipid screening 08/10/2014 019 Fibromyalgia 05/07/2014 07/27/2019 Other acquired deformity of toe 05/20/2009 07/27/2019 Backache, unspecified 06/19/2008 07/27/2019 Overview: Patient has degenerative disc disease and a slipped disc in her back. The symptoms began July 2011. 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 She sees Dr. Salter at [facility] for both of these issues. Patient has multiple questions regarding anesthesia during delivery due to her back issues. I have asked her to discuss this with Dr. Salter at an upcoming appointment and have him dictate a letter to Dr. Anderson with any concerns he may have. documented as of this encounter (statuses as of 04/28/2023) [facility] History of Past illness Narrative* Problem Noted Date Diagnosed Date Resolved Date Attention and concentration deficit 03/19/2015 07/27/2019 Esophageal reflux 02/21/2015 07/27/2019 Routine gynecological examination 08/10/2014 07/27/2019 Overview: Se[facility] Screening for diabetes mellitus (DM) 08/10/2014 07/27/2019 Need for lipid screening 08/10/201403/2019 Fibromyalgia 05/07/2014 07/27/2019 Other acquired deformity of toe 05/20/2009 07/27/2019 Backache, unspecified 06/19/20082018 Overview: Patient has degenerative disc disease and a slipped disc in her back. The symptoms began July 2011. 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 She sees Dr. Salter at [facility] for both of these issues. Patient has multiple questions regarding anesthesia during delivery due to her back issues. I have asked her to discuss this with Dr. Salter at an upcoming appointment and have him dictate a letter to Dr. Anderson with any concerns he may have. documented as of this encounter (statuses as of 06/08/2023) [facility] History of Past illness Narrative* Problem Noted Date Diagnosed Date Resolved Date Attention and concentration deficit 03/19/2015 07/27/2019 Esophageal reflux 02/21/2015 07/27/2019 Routine gynecological examination 08/10/2014 07/27/2019 Overview: [facility] Screening for diabetes mellitus (DM) 08/10/2014 07/27/2019 Need for lipid screening 08/10/201403/2019 Fibromyalgia 05/07/2014 07/27/2019 Other acquired deformity of toe 05/20/2009 07/27/2019 Backache, unspecified 06/19/20082018 Overview: Patient has degenerative disc disease and a slipped disc in her back. The symptoms began July 2011. 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 She sees Dr. Salter at [facility] for both of these issues. Patient has multiple questions regarding anesthesia during delivery due to her back issues. I have asked her to discuss this with Dr. Salter at an upcoming appointment and have him dictate a letter to Dr. Anderson with any concerns he may have. documented as of this encounter (statuses as of 07/09/2023) [facility] History of Past illness Narrative* Problem Noted Date Diagnosed Date Resolved Date Attention and concentration deficit 03/19/2015 07/27/2019 Esophageal reflux 02/21/2015 07/27/2019 Routine gynecological examination 08/10/2014 07/27/2019 Overview: [facility] Screening for diabetes mellitus (DM) 08/10/2014 07/27/2019 Need for lipid screening 08/10/201403/2019 Fibromyalgia 05/07/2014 07/27/2019 Other acquired deformity of toe 05/20/2009 07/27/2019 Backache, unspecified 06/19/20082018 Overview: Patient has degenerative disc disease and a slipped disc in her back. The symptoms began July 2011. 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 She sees Dr. Salter at [facility] for both of these issues. Patient has multiple questions regarding anesthesia during delivery due to her back issues. I have asked her to discuss this with Dr. Salter at an upcoming appointment and have him dictate a letter to Dr. Anderson with any concerns he may have. documented as of this encounter (statuses as of 09/16/2023) [facility] History of Past illness Narrative* Problem Noted Date Diagnosed Date Resolved Date Attention and concentration deficit 03/19/2015 07/27/2019 Esophageal reflux 02/21/2015 07/27/2019 Routine gynecological examination 08/10/2014 07/27/2019 Overview: [facility] Screening for diabetes mellitus (DM) 08/10/2014 07/27/2019 Need for lipid screening 08/10/201403/2019 Fibromyalgia 05/07/2014 07/27/2019 Other acquired deformity of toe 05/20/2009 07/27/2019 Backache, unspecified 06/19/20082018 Overview: Patient has degenerative disc disease and a slipped disc in her back. The symptoms began July 2011. 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 She sees Dr. Salter at [facility] for both of these issues. Patient has multiple questions regarding anesthesia during delivery due to her back issues. I have asked her to discuss this with Dr. Salter at an upcoming appointment and have him dictate a letter to Dr. Anderson with any concerns he may have. documented as of this encounter (statuses as of 09/16/2023) [facility] History of Past illness Narrative* Problem Noted Date Diagnosed Date Resolved Date Attention and concentration deficit 03/19/2015 07/27/2019 Esophageal reflux 02/21/2015 07/27/2019 Routine gynecological examination 08/10/2014 07/27/2019 [facility] for [facility] (DM) 08/10/2014 07/27/2019 Need for lipid screening 08/10/201403/2019 Fibromyalgia 05/07/2014 07/27/2019 Other acquired deformity of toe 05/20/2009 07/27/2019 Backache, unspecified 06/19/20082018 Overview: Patient has degenerative disc disease and a slipped disc in her back. The symptoms began July 2011. 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 She sees Dr. Salter at [facility] for both of these issues. Patient has multiple questions regarding anesthesia during delivery due to her back issues. I have asked her to discuss this with Dr. Salter at an upcoming appointment and have him dictate a letter to Dr. Anderson with any concerns he may have. documented as of this encounter (statuses as of 09/26/2023) [facility] History of Past illness Narrative* Problem Noted Date Diagnosed Date Resolved Date Attention and concentration deficit 03/19/2015 07/27/2019 Esophageal reflux 02/21/2015 07/27/2019 Routine gynecological examination 08/10/2014 07/27/2019 Overview: [facility] Screening for diabetes mellitus (DM) 08/10/2014 07/27/2019 Need for lipid screening 08/10/201403/2019 Fibromyalgia 05/07/2014 07/27/2019 Other acquired deformity of toe 05/20/2009 07/27/2019 Backache, unspecified 06/19/20082018 Overview: Patient has degenerative disc disease and a slipped disc in her back. The symptoms began July 2011. 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 She sees Dr. Salter at [facility] for both of these issues. Patient has multiple questions regarding anesthesia during delivery due to her back issues. I have asked her to discuss this with Dr. Salter at an upcoming appointment and have him dictate a letter to Dr. Anderson with any concerns he may have. documented as of this encounter (statuses as of 10/04/2023) [facility] History of Past illness Narrative* Problem Noted Date Diagnosed Date Resolved Date Attention and concentration deficit 03/19/2015 07/27/2019 Esophageal reflux 02/21/2015 07/27/2019 Routine gynecological examination 08/10/2014 07/27/2019 Overview: [facility] Screening for diabetes mellitus (DM) 08/10/2014 07/27/2019 Need for lipid screening 08/10/201403/2019 Fibromyalgia 05/07/2014 07/27/2019 Other acquired deformity of toe 05/20/2009 07/27/2019 Backache, unspecified 06/19/20082018 Overview: Patient has degenerative disc disease and a slipped disc in her back. The symptoms began July 2011. 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 She sees Dr. Salter at [facility] for both of these issues. Patient has multiple questions regarding anesthesia during delivery due to her back issues. I have asked her to discuss this with Dr. Salter at an upcoming appointment and have him dictate a letter to Dr. Anderson with any concerns he may have. documented as of this encounter (statuses as of 11/06/2023) [facility] History of Past illness Narrative* Problem Noted Date Diagnosed Date Resolved Date Attention and concentration deficit 03/19/2015 07/27/2019 Esophageal reflux 02/21/2015 07/27/2019 Routine gynecological examination 08/10/2014 07/27/2019 Overview: [facility] Screening for diabetes mellitus (DM) 08/10/2014 07/27/2019 Need for lipid screening 08/10/201403/2019 Fibromyalgia 05/07/2014 07/27/2019 Other acquired deformity of toe 05/20/2009 07/27/2019 Backache, unspecified 06/19/20082018 Overview: Patient has degenerative disc disease and a slipped disc in her back. The symptoms began July 2011. 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 She sees Dr. Salter at [facility] for both of these issues. Patient has multiple questions regarding anesthesia during delivery due to her back issues. I have asked her to discuss this with Dr. Salter at an upcoming appointment and have him dictate a letter to Dr. Anderson with any concerns he may have. documented as of this encounter (statuses as of 01/03/2024) [facility] History of Past illness Narrative* Problem Noted Date Diagnosed Date Resolved Date Attention and concentration deficit 03/19/2015 07/27/2019 Esophageal reflux 02/21/2015 07/27/2019 Routine gynecological examination 08/10/2014 07/27/2019 Overview: [facility] Screening for diabetes mellitus (DM) 08/10/2014 07/27/2019 Need for lipid screening 08/10/201403/2019 Fibromyalgia 05/07/2014 07/27/2019 Other acquired deformity of toe 05/20/2009 07/27/2019 Backache, unspecified 06/19/20082018 Overview: Patient has degenerative disc disease and a slipped disc in her back. The symptoms began July 2011. 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 She sees Dr. Salter at [facility] for both of these issues. Patient has multiple questions regarding anesthesia during delivery due to her back issues. I have asked her to discuss this with Dr. Salter at an upcoming appointment and have him dictate a letter to Dr. Anderson with any concerns he may have. documented as of this encounter (statuses as of 01/07/2024) [facility] History of Past illness Narrative* Problem Noted Date Diagnosed Date Resolved Date Attention and concentration deficit 03/19/2015 07/27/2019 Esophageal reflux 02/21/2015 07/27/2019 Routine gynecological examination 08/10/2014 07/27/2019 Overview: [facility] Screening for diabetes mellitus (DM) 08/10/2014 07/27/2019 Need for lipid screening 08/10/201403/2019 Fibromyalgia 05/07/2014 07/27/2019 Other acquired deformity of toe 05/20/2009 07/27/2019 Backache, unspecified 06/19/20082018 Overview: Patient has degenerative disc disease and a slipped disc in her back. The symptoms began July 2011. 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 She sees Dr. Salter at [facility] for both of these issues. Patient has multiple questions regarding anesthesia during delivery due to her back issues. I have asked her to discuss this with Dr. Salter at an upcoming appointment and have him dictate a letter to Dr. Anderson with any concerns he may have. documented as of this encounter (statuses as of 01/07/2024) [facility] History of Past illness Narrative* Problem Noted Date Diagnosed Date Resolved Date Attention and concentration deficit 03/19/2015 07/27/2019 Esophageal reflux 02/21/2015 07/27/2019 Routine gynecological examination 08/10/2014 07/27/2019 [facility] for diabetes mellitus (DM) 08/10/2014 07/27/2019 Need for lipid screening 08/10/201403/2019 Fibromyalgia 05/07/2014 07/27/2019 Other acquired deformity of toe 05/20/2009 07/27/2019 Backache, unspecified 06/19/20082018 Overview: Patient has degenerative disc disease and a slipped disc in her back. The symptoms began July 2011. 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 She sees Dr. Salter at [facility] for both of these issues. Patient has multiple questions regarding anesthesia during delivery due to her back issues. I have asked her to discuss this with Dr. Salter at an upcoming appointment and have him dictate a letter to Dr. Anderson with any concerns he may have. documented as of this encounter (statuses as of 01/13/2024) [facility] History of Past illness Narrative* Problem Noted Date Diagnosed Date Resolved Date Attention and concentration deficit 03/19/2015 07/27/2019 Esophageal reflux 02/21/2015 07/27/2019 Routine gynecological examination 08/10/2014 07/27/2019 [facility]: [facility] for diabetes mellitus (DM) 08/10/2014 07/27/2019 Need for lipid screening 08/10/201403/2019 Fibromyalgia 05/07/2014 07/27/2019 Other acquired deformity of toe 05/20/2009 07/27/2019 Backache, unspecified 06/19/20082018 Overview: Patient has degenerative disc disease and a slipped disc in her back. The symptoms began July 2011. 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 She sees Dr. Salter at [facility] for both of these issues. Patient has multiple questions regarding anesthesia during delivery due to her back issues. I have asked her to discuss this with Dr. Salter at an upcoming appointment and have him dictate a letter to Dr. Anderson with any concerns he may have. 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 Malignant neoplasm of thyroid gland Sialoadenitis of submandibular gland Sialoadenitis documented in this encounter [facility] note* Diagnosis Sialadenitis- Primary Sialoadenitis documented in this encounter [facility] note* Diagnosis SI (sacroiliac) joint dysfunction- Primary Disorders of sacrum Lumbar degenerative disc disease Degeneration of lumbar or lumbosacral intervertebral disc documented in this encounter [facility] note* Diagnosis SI (sacroiliac) joint dysfunction- Primary Disorders of sacrum Sacroiliitis, not elsewhere classified (HCC) Sacroiliitis, not elsewhere classified documented in this encounter [facility] note* Diagnosis Sialadenitis Sialoadenitis documented in this encounter [facility] note* Diagnosis SI (sacroiliac) joint dysfunction- Primary Disorders of sacrum Sacroiliitis, not elsewhere classified (HCC) Sacroiliitis, not elsewhere classified SI (sacroiliac) joint dysfunction Disorders of sacrum Sacroiliitis, not elsewhere classified (HCC) Sacroiliitis, not elsewhere classified documented in this encounter [facility] note* Diagnosis SI (sacroiliac) joint dysfunction- Primary Disorders of sacrum Sacroiliitis, not elsewhere classified (HCC) Sacroiliitis, not elsewhere classified documented in this encounter [facility] note* Diagnosis Sialadenitis- Primary Sialoadenitis documented in this encounter [facility] note* Diagnosis SI (sacroiliac) joint dysfunction- Primary Disorders of sacrum Sacroiliitis, not elsewhere classified (HCC) Sacroiliitis, not elsewhere classified SI (sacroiliac) joint dysfunction Disorders of sacrum Sacroiliitis, not elsewhere classified (HCC) Sacroiliitis, not elsewhere classified [facility]* Diagnosis Hypertension, essential- Primary Unspecified essential hypertension Weight gain Abnormal weight gain Primary thyroid papillary carcinoma (HCC) Malignant neoplasm of thyroid gland Encounter for lipid screening for cardiovascular disease Screening for lipoid disorders Screening for diabetes mellitus SI (sacroiliac) joint dysfunction Disorders of sacrum Sacroiliitis, not elsewhere classified (HCC) Sacroiliitis, not elsewhere classified [facility]* Diagnosis SI (sacroiliac) joint dysfunction Disorders of sacrum Lumbar degenerative disc disease Degeneration of lumbar or lumbosacral intervertebral disc [facility]* Diagnosis 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 Postsurgical hypothyroidism Sialoadenitis of submandibular gland [facility]ialoadenitis [facility] Diagnosis Bloating- Primary Flatulence, eructation, and gas pain documented [facility]* Diagnosis SI (sacroiliac) joint dysfunction Disorders of sacrum Lumbar degenerative disc disease Degeneration of lumbar or lumbosacral intervertebral disc [facility]* Diagnosis Lumbar degenerative disc disease- Primary Degeneration of lumbar or lumbosacral intervertebral disc SI (sacroiliac) joint dysfunction Disorders of sacrum Sacroiliitis, not elsewhere classified (HCC) Sacroiliitis, not elsewhere classified [facility]* Diagnosis Bacterial sinusitis- Primary Unspecified sinusitis (chronic) documented [facility]* Diagnosis Lumbar degenerative disc disease- Primary Degeneration of lumbar or lumbosacral intervertebral disc SI (sacroiliac) joint dysfunction Disorders of sacrum Sacroiliitis, not elsewhere classified (HCC) Sacroiliitis, not elsewhere classified SI (sacroiliac) joint dysfunction Disorders of sacrum Sacroiliitis, not elsewhere classified (HCC) Sacroiliitis, not elsewhere classified documented in this encounter [facility] note* Diagnosis SI (sacroiliac) joint dysfunction Disorders of sacrum Lumbar degenerative disc disease Degeneration of lumbar or lumbosacral intervertebral disc [facility] Diagnosis Hypertension, essential- Primary Unspecified essential [...] for diabetes mellitus [facility] Diagnosis Post-surgical hypothyroidism- Primary Postsurgical hypothyroidism Adverse effect of treatment, subsequent encounter Adverse effect of treatment, initial encounter [facility] Diagnosis SI (sacroiliac) joint dysfunction Disorders of sacrum Lumbar degenerative disc disease Degeneration of lumbar or lumbosacral intervertebral disc [facility] Diagnosis SI (sacroiliac) joint dysfunction- Primary Disorders of sacrum Sacroiliitis, not elsewhere classified (HCC) Sacroiliitis, not elsewhere classified SI (sacroiliac) joint dysfunction Disorders of sacrum Sacroiliitis, not elsewhere classified (HCC) Sacroiliitis, not elsewhere classified [facility] Diagnosis Spinal stenosis of lumbar region, unspecified whether neurogenic claudication present- Primary SI (sacroiliac) joint dysfunction Disorders of sacrum Lumbar degenerative disc disease Degeneration of lumbar or lumbosacral intervertebral disc [facility]* Diagnosis SI (sacroiliac) joint dysfunction- Primary Disorders of sacrum SI (sacroiliac) joint dysfunction Disorders of sacrum [facility] Diagnosis Adverse effect of treatment, initial encounter SI (sacroiliac) joint dysfunction Disorders of sacrum [facility] Diagnosis Sore throat- Primary Acute pharyngitis Bronchitis Bronchitis, not specified as acute or chronic Lower resp. tract infection Other diseases of respiratory system, not elsewhere classified SI (sacroiliac) joint dysfunction Disorders of sacrum [facility] Diagnosis Plantar wart of left foot- Primary Plantar wart SI (sacroiliac) joint dysfunction Disorders of sacrum [facility]* Diagnosis Sore throat- Primary Acute pharyngitis URI, acute Acute upper respiratory infections of unspecified site [facility] Diagnosis Otalgia of both ears- Primary Otalgia, unspecified Flu Influenza with other respiratory manifestations [facility] Diagnosis SI (sacroiliac) joint dysfunction- Primary Disorders of sacrum Lumbar degenerative disc disease Degeneration of lumbar or lumbosacral intervertebral disc Spinal stenosis of lumbar region, unspecified whether neurogenic claudication present [facility] Diagnosis Tinnitus of right ear- Primary Unspecified tinnitus Right ear pain Otalgia, unspecified Neoplasm of uncertain behavior of skin of back Neoplasm of uncertain behavior of skin [facility]* Diagnosis SI (sacroiliac) joint dysfunction- Primary Disorders of sacrum SI (sacroiliac) joint dysfunction Disorders of sacrum [facility]* Diagnosis Post-surgical hypothyroidism- Primary Postsurgical hypothyroidism Hypertension, essential Unspecified essential hypertension Vitamin D deficiency Unspecified vitamin D deficiency Encounter for screening for diabetes mellitus Screening for diabetes mellitus SI (sacroiliac) joint dysfunction Disorders of sacrum [facility]* Diagnosis Hypertension, essential- Primary Unspecified essential hypertension Migraine without aura and without status migrainosus, not intractable Migraine without aura, without mention of intractable migraine without mention of status migrainosus Chronic fatigue disorder Chronic fatigue syndrome Post-surgical hypothyroidism Postsurgical hypothyroidism Primary thyroid papillary carcinoma (HCC) Malignant neoplasm of thyroid gland PTSD (post-traumatic stress disorder) Posttraumatic stress disorder Bipolar 1 disorder (HCC) Bipolar I disorder, most recent episode (or current) unspecified Anxiety, generalized Generalized anxiety disorder Exercise-induced asthma Exercise induced bronchospasm Vitamin D deficiency Unspecified vitamin D deficiency Obesity, Class I, BMI 30-34.9 Obesity, unspecified Acute right-sided low back pain without sciatica Spinal stenosis of lumbar region, unspecified whether neurogenic claudication present Congenital heart defect Unspecified congenital anomaly of heart Encounter for gynecological examination Renal stones Calculus of kidney SOB (shortness of breath) Shortness of breath SI (sacroiliac) joint dysfunction Disorders of sacrum [facility] Diagnosis Exercise-induced asthma Exercise induced bronchospasm SOB (shortness of breath) Shortness of breath SI (sacroiliac) joint dysfunction Disorders of sacrum [facility]* Diagnosis 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 Postsurgical [facility]othy[facility] Pain in left lower leg- Primary Pain in left lower leg SI (sacroiliac) joint dysfunction Disorders of sacrum [facility] Diagnosis Pain in left lower leg SI (sacroiliac) joint dysfunction Disorders of sacrum [facility]* Diagnosis Spinal stenosis of lumbar region, unspecified whether neurogenic claudication present- Primary Radiculopathy, lumbar region Thoracic or lumbosacral neuritis or radiculitis, unspecified SI (sacroiliac) joint dysfunction Disorders of sacrum [facility]* Diagnosis Spinal stenosis of lumbar region, unspecified whether neurogenic claudication present- Primary SI (sacroiliac) joint dysfunction Disorders of sacrum Radiculopathy, lumbar region Thoracic or lumbosacral neuritis or radiculitis, unspecified [facility]* Diagnosis Neoplasm of uncertain behavior of skin of back- Primary Neoplasm of uncertain behavior of skin Dermatofibroma Benign neoplasm of skin, site unspecified [facility]* Diagnosis Dermatofibroma- Primary Benign neoplasm of skin, site unspecified [facility]* Diagnosis Preoperative examination- Primary Preoperative examination, unspecified Papillary thyroid carcinoma (HCC) Malignant neoplasm of thyroid gland Exercise-induced asthma Exercise induced bronchospasm Lumbar degenerative disc disease Degeneration of lumbar or lumbosacral intervertebral disc Migraine without aura and without status migrainosus, not intractable Migraine without aura, without mention of intractable migraine without mention of status migrainosus Bipolar 1 disorder (HCC) Bipolar I disorder, most recent episode (or current) unspecified Anxiety, generalized Generalized anxiety disorder Lumbar degenerative disc disease Degeneration of lumbar or lumbosacral intervertebral disc [facility]* Diagnosis Preoperative examination- Primary Preoperative examination, unspecified Papillary thyroid carcinoma (HCC) Malignant neoplasm of thyroid gland Exercise-induced asthma Exercise induced bronchospasm Lumbar degenerative disc disease Degeneration of lumbar or lumbosacral intervertebral disc Migraine without aura and without status migrainosus, not intractable Migraine without aura, without mention of intractable migraine without mention of status migrainosus Bipolar 1 disorder (HCC) Bipolar I disorder, most recent episode (or current) unspecified Anxiety, generalized Generalized anxiety disorder Left ankle injury, initial encounter [facility]* Diagnosis Preoperative examination- Primary Preoperative examination, unspecified Papillary thyroid carcinoma (HCC) Malignant neoplasm of thyroid gland Exercise-induced asthma Exercise induced bronchospasm Lumbar degenerative disc disease Degeneration of lumbar or lumbosacral intervertebral disc Migraine without aura and without status migrainosus, not intractable Migraine without aura, without mention of intractable migraine without mention of status migrainosus Bipolar 1 disorder (HCC) Bipolar I disorder, most recent episode (or current) unspecified Anxiety, generalized Generalized anxiety disorder Viral illness- Primary Unspecified viral infection, in conditions classified elsewhere and of unspecified site [facility] Diagnosis Preoperative examination- Primary Preoperative examination, unspecified Papillary thyroid carcinoma (HCC) Malignant neoplasm of thyroid gland Exercise-induced asthma Exercise induced bronchospasm Lumbar degenerative disc disease Degeneration of lumbar or lumbosacral intervertebral disc Migraine without aura and without status migrainosus, not intractable Migraine without aura, without mention of intractable migraine without mention of status migrainosus Bipolar 1 disorder (HCC) Bipolar I disorder, most recent episode (or current) unspecified Anxiety, generalized Generalized anxiety disorder Leg cramps- Primary Cramp of limb Encounter for physical examination related to employment [facility] Diagnosis Preoperative examination- Primary Preoperative examination, unspecified Papillary thyroid carcinoma (HCC) Malignant neoplasm of thyroid gland Exercise-induced asthma Exercise induced bronchospasm Lumbar degenerative disc disease Degeneration of lumbar or lumbosacral intervertebral disc Migraine without aura and without status migrainosus, not intractable Migraine without aura, without mention of intractable migraine without mention of status migrainosus Bipolar 1 disorder (HCC) Bipolar I disorder, most recent episode (or current) unspecified Anxiety, generalized Generalized anxiety disorder SI (sacroiliac) joint dysfunction- Primary Disorders of sacrum Radiculopathy, lumbar region Thoracic or lumbosacral neuritis or radiculitis, unspecified Degeneration of intervertebral disc of lumbar region with discogenic back pain [facility] Diagnosis Preoperative examination- Primary Preoperative examination, unspecified Papillary thyroid carcinoma (HCC) Malignant neoplasm of thyroid gland Exercise-induced asthma Exercise induced bronchospasm Lumbar degenerative disc disease Degeneration of lumbar or lumbosacral intervertebral disc Migraine without aura and without status migrainosus, not intractable Migraine without aura, without mention of intractable migraine without mention of status migrainosus Bipolar 1 disorder (HCC) Bipolar I disorder, most recent episode (or current) unspecified Anxiety, generalized Generalized anxiety disorder SI (sacroiliac) joint dysfunction- Primary Disorders of sacrum SI (sacroiliac) joint dysfunction Disorders of sacrum [facility] Diagnosis Preoperative examination- Primary Preoperative examination, unspecified Papillary thyroid carcinoma (HCC) Malignant neoplasm of thyroid gland Exercise-induced asthma Exercise induced bronchospasm Lumbar degenerative disc disease Degeneration of lumbar or lumbosacral intervertebral disc Migraine without aura and without status migrainosus, not intractable Migraine without aura, without mention of intractable migraine without mention of status migrainosus Bipolar 1 disorder (HCC) Bipolar I disorder, most recent episode (or current) unspecified Anxiety, generalized Generalized anxiety disorder Dysuria- Primary SI (sacroiliac) joint dysfunction Disorders of sacrum [facility] Diagnosis Preoperative examination- Primary Preoperative examination, unspecified Papillary thyroid carcinoma (HCC) Malignant neoplasm of thyroid gland Exercise-induced asthma Exercise induced bronchospasm Lumbar degenerative disc disease Degeneration of lumbar or lumbosacral intervertebral disc Migraine without aura and without status migrainosus, not intractable Migraine without aura, without mention of intractable migraine without mention of status migrainosus Bipolar 1 disorder (HCC) Bipolar I disorder, most recent episode (or current) unspecified Anxiety, generalized Generalized anxiety disorder Headache, unspecified headache type- Primary Nausea Nausea alone SI (sacroiliac) joint dysfunction Disorders of sacrum [facility] Diagnosis Preoperative examination- Primary Preoperative examination, unspecified Papillary thyroid carcinoma (HCC) Malignant neoplasm of thyroid gland Exercise-induced asthma Exercise induced bronchospasm Lumbar degenerative disc disease Degeneration of lumbar or lumbosacral intervertebral disc Migraine without aura and without status migrainosus, not intractable Migraine without aura, without mention of intractable migraine without mention of status migrainosus Bipolar 1 disorder (HCC) Bipolar I disorder, most recent episode (or current) unspecified Anxiety, generalized Generalized anxiety disorder Migraine without aura and without status migrainosus, not intractable- Primary Migraine without aura, without mention of intractable migraine without mention of status migrainosus Mixed headache Headache Hypertension, essential Unspecified essential hypertension Daily headache Headache SI (sacroiliac) joint dysfunction Disorders of sacrum [facility]* Diagnosis Preoperative examination- Primary Preoperative examination, unspecified Papillary thyroid carcinoma (HCC) Malignant neoplasm of thyroid gland Exercise-induced asthma Exercise induced bronchospasm Lumbar degenerative disc disease Degeneration of lumbar or lumbosacral intervertebral disc Migraine without aura and without status migrainosus, not intractable Migraine without aura, without mention of intractable migraine without mention of status migrainosus Bipolar 1 disorder (HCC) Bipolar I disorder, most recent episode (or current) unspecified Anxiety, generalized Generalized anxiety disorder Migraine without aura and without status migrainosus, not intractable- Primary Migraine without aura, without mention of intractable migraine without mention of status migrainosus SI (sacroiliac) joint dysfunction Disorders of sacrum [facility]* Diagnosis Preoperative examination- Primary Preoperative examination, unspecified Papillary thyroid carcinoma (HCC) Malignant neoplasm of thyroid gland Exercise-induced asthma Exercise induced bronchospasm Lumbar degenerative disc disease Degeneration of lumbar or lumbosacral intervertebral disc Migraine without aura and without status migrainosus, not intractable Migraine without aura, without mention of intractable migraine without mention of status migrainosus Bipolar 1 disorder (HCC) Bipolar I disorder, most recent episode (or current) unspecified Anxiety, generalized Generalized anxiety disorder SI (sacroiliac) joint dysfunction- Primary Disorders of sacrum Radiculopathy, lumbar region Thoracic or lumbosacral neuritis or radiculitis, unspecified Degeneration of intervertebral disc of lumbar region with discogenic back pain documented [facility]* Diagnosis Preoperative examination- Primary Preoperative examination, unspecified Papillary thyroid carcinoma (HCC) Malignant neoplasm of thyroid gland Exercise-induced asthma Exercise induced bronchospasm Lumbar degenerative disc disease Degeneration of lumbar or lumbosacral intervertebral disc Migraine without aura and without status migrainosus, not intractable Migraine without aura, without mention of intractable migraine without mention of status migrainosus Bipolar 1 disorder (HCC) Bipolar I disorder, most recent episode (or current) unspecified Anxiety, generalized Generalized anxiety disorder Migraine without aura and without status migrainosus, not intractable- Primary Migraine without aura, without mention of intractable migraine without mention of status migrainosus Mixed headache Headache [facility]* Diagnosis Preoperative examination- Primary Preoperative examination, unspecified Papillary thyroid carcinoma (HCC) Malignant neoplasm of thyroid gland Exercise-induced asthma Exercise induced bronchospasm Lumbar degenerative disc disease Degeneration of lumbar or lumbosacral intervertebral disc Migraine without aura and without status migrainosus, not intractable Migraine without aura, without mention of intractable migraine without mention of status migrainosus Bipolar 1 disorder (HCC) Bipolar I disorder, most recent episode (or current) unspecified Anxiety, generalized Generalized anxiety disorder Bacterial sinusitis- Primary Unspecified sinusitis (chronic) documented [facility] this [facility]* Diagnosis Preoperative examination- Primary Preoperative examination, unspecified Papillary thyroid carcinoma (HCC) Malignant neoplasm of thyroid gland Exercise-induced asthma Exercise induced bronchospasm Lumbar degenerative disc disease Degeneration of lumbar or lumbosacral intervertebral disc Migraine without aura and without status migrainosus, not intractable Migraine without aura, without mention of intractable migraine without mention of status migrainosus Bipolar 1 disorder (HCC) Bipolar I disorder, most recent episode (or current) unspecified Anxiety, generalized Generalized anxiety disorder Radiculopathy, lumbar region- Primary Thoracic or lumbosacral neuritis or radiculitis, unspecified Degeneration of intervertebral disc of lumbar region with discogenic back pain documented [facility]* Diagnosis Preoperative examination- Primary Preoperative examination, unspecified Papillary thyroid carcinoma (HCC) Malignant neoplasm of thyroid gland Exercise-induced asthma (HCC) Exercise induced bronchospasm Lumbar degenerative disc disease Degeneration of lumbar or lumbosacral intervertebral disc Migraine without aura and without status migrainosus, not intractable Migraine without aura, without mention of intractable migraine without mention of status migrainosus Bipolar 1 disorder (HCC) Bipolar I disorder, most recent episode (or current) unspecified Anxiety, generalized Generalized anxiety disorder SI (sacroiliac) joint dysfunction- Primary Disorders of sacrum SI (sacroiliac) joint dysfunction Disorders of sacrum [facility]* Diagnosis Preoperative examination- Primary Preoperative examination, unspecified Papillary thyroid carcinoma (HCC) Malignant neoplasm of thyroid gland Exercise-induced asthma (HCC) Exercise induced bronchospasm Lumbar degenerative disc disease Degeneration of lumbar or lumbosacral intervertebral disc Migraine without aura and without status migrainosus, not intractable Migraine without aura, without mention of intractable migraine without mention of status migrainosus Bipolar 1 disorder (HCC) Bipolar I disorder, most recent episode (or current) unspecified Anxiety, generalized Generalized anxiety disorder SI (sacroiliac) joint dysfunction Disorders of sacrum SI (sacroiliac) joint dysfunction Disorders of sacrum [facility] Diagnosis Preoperative examination- Primary Preoperative examination, unspecified Papillary thyroid carcinoma (HCC) Malignant neoplasm of thyroid gland Exercise-induced asthma (HCC) Exercise induced bronchospasm Lumbar degenerative disc disease Degeneration of lumbar or lumbosacral intervertebral disc Migraine without aura and without status migrainosus, not intractable Migraine without aura, without mention of intractable migraine without mention of status migrainosus Bipolar 1 disorder (HCC) Bipolar I disorder, most recent episode (or current) unspecified Anxiety, generalized Generalized anxiety disorder SI (sacroiliac) joint dysfunction Disorders of sacrum SI (sacroiliac) joint dysfunction Disorders of sacrum [facility] Consultation (Routine) - New Request Specialty Diagnoses / Procedures Referred By Kin samuel Referred To Contact Otolaryngology Diagnoses Sialoadenitis of submandibular gland Tawanna Rivera MD [facility] [place] [address] Osvaldo Tapia MD [address] [place] [address] Referral ID Status Reason Start Date Expiration Date V isits Requested Visits Authorized [id number] New Request 03/18/2022 04/12/2023 1 1 * Radiology (Routine) - New Request Specialty Diagnoses / Procedures Referred By Kin samuel Referred To Contact Diagnoses Papillary thyroid carcinoma Procedures [facility] Tawanna Rivera MD [address] [place] [address] Referral ID Status Reason Start Date Expiration Date V isits Requested Visits Authorized [id number] New Request 03/18/2022 04/12/2023 1 [facility] Procedure (Routine) - Authorized Specialty Diagnoses / Procedures Referred By Contac t Referred To Contact [facility] Diagnoses Exercise-induced asthma SOB (shortness of breath) Procedures SPIROMETRY - BASELINE AND POST DILATOR BRNCDILAT RSPSE SPMTRY PRE&[place] [address] [place] [address] [facility] [place] [address] [place] [address] Referral ID Status Reason Start Date Expiration Date Visits Requested Visits Authorized [id number] Authorized Auto-Generat ed Referral 04/25/2024 05/25/2025 1 1 * Consult, Test, Treat (Routine) - Authorized Specialty Diagnoses / Procedures Referred By Contac t Referred To Contact Urology Diagnoses Renal stones Procedures CONSULT TO UROLOGY OFFICE/OUTPATIENT [facility] 60 MINUTES Nagi Red MD [address] [place] [address] Referral ID Status Reason Start Date Expiration Date Visits Requested Visits Authorized [id number] Authorized PCP Requested Referral 04/25/2024 04/25/2025 1 1 * Consult, Test, Treat (Routine) - Authorized Specialty Diagnoses / Procedures Referred By Contac t Referred To Contact Diagnoses Encounter for gynecological examination Procedures CONSULT TO EDUCATIONAL INSTITUTION CURATOR OFFICE/OUTPATIENT [facility] [address] [place] [address] [place] [address] Referral ID Status Reason Start Date Expiration Date Visits Requested Visits Authorized [id number] Authorized PCP Requested Referral Auto-Generate d Referral 04/25/2024 04/25/2025 1 1 [facility] for referral (narrative)* Diagnostic Procedure Only (Urgent) - Closed Specialty Diagnoses / Procedures Referred By Contac t Referred To Contact US IMAGING Diagnoses Pain in left lower leg Procedures US DVT LOWER LEFT DUP-SCAN XTR VEINS UNILATERAL/LIMITED STUDY PodlogarSakshi APRN.STATISTICAL FINANCIAL ANALYST [address] [place] [address] [place] [address] Referral ID Status Reason Start Date Expiration Date V isits Requested Visits Authorized [id number] Closed Auto-Generate d Referral 05/12/2024 06/11/2025 1 1 [facility] for referral (narrative)* Diagnostic Procedure Only (Urgent) - Closed Specialty Diagnoses / Procedures Referred By Contac t Referred To Contact US IMAGING Diagnoses Pain in left lower leg Procedures US DVT LOWER LEFT DUP-SCAN XTR VEINS UNILATERAL/LIMITED STUDY PodlogarSakshi APRN.STATISTICAL FINANCIAL ANALYST [address] [place] [address] [place] [address] Referral ID Status Reason Start Date Expiration Date V isits Requested Visits Authorized [id number] Closed Auto-Generate d Referral 05/12/2024 06/11/2025 1 1 [facility] for referral (narrative)* Diagnostic Procedure Only (Routine) - Closed Specialty Diagnoses / Procedures Referred By Contac t Referred To Contact XR IMAGING Diagnoses Lumbar degenerative disc disease Procedures XR LUMBAR PARS DEFECT 4V AP/LAT/BOTH OBL RADEX SPINE LUMBOSACRAL MINIMUM 4 VIEWS Carlie Brownlee, UNLOADER OPERATOR.STATISTICAL FINANCIAL ANALYST [address] [place] [address] [place] [address] Referral ID Status Reason Start Date Expiration Date V isits Requested Visits Authorized [id number] Closed Auto-Generate d Referral 03/01/2023 03/30/2024 1 1 [facility] for referral (narrative)* Diagnostic Procedure Only (Urgent) - Closed Specialty Diagnoses / Procedures Referred By Contac t Referred To Contact XR IMAGING Diagnoses Left ankle injury, initial encounter Procedures XR ANKLE GENERAL 3V AP/LAT/OBL LT X-RAY ANKLE MINIMUM 3 VIEWS Shannon Hawkins PA-C [address] [place] [address] [place] [address] Referral ID Status Reason Start Date Expiration Date V isits Requested Visits Authorized [id number] Closed Auto-Generate d Referral 07/17/2021 08/16/2022 1 1 [facility] for visit Narrative* Diagnostic Procedure Only (Urgent) - Closed Specialty Diagnoses / Procedures Referred By Contac t Referred To Contact US IMAGING Diagnoses Pain in left lower leg Procedures US DVT LOWER LEFT DUP-SCAN XTR VEINS UNILATERAL/LIMITED STUDY PodlogarSakshi APRN.STATISTICAL FINANCIAL ANALYST [address] [place] [address] [place] [address] Referral ID Status Reason Start Date Expiration Date V isits Requested Visits Authorized [id number] Closed Auto-Generate d Referral 05/12/2024 06/11/2025 1 1 [facility] for visit Narrative* Diagnostic Procedure Only (Routine) - Closed Specialty Diagnoses / Procedures Referred By Contac t Referred To Contact XR IMAGING Diagnoses Lumbar degenerative disc disease Procedures XR LUMBAR PARS DEFECT 4V AP/LAT/BOTH OBL RADEX SPINE LUMBOSACRAL MINIMUM 4 VIEWS Carlie Brownlee UNLOADER OPERATOR.STATISTICAL FINANCIAL ANALYST [address] [place] [address] [place] [address] Referral ID Status Reason Start Date Expiration Date V isits Requested Visits Authorized [id number] Closed Auto-Generate d Referral 03/01/2023 03/30/2024 1 1 [facility] for visit Narrative* Diagnostic Procedure Only (Urgent) - Closed Specialty Diagnoses / Procedures Referred By Kin t Referred To Contact XR IMAGING Diagnoses Left ankle injury, initial encounter Procedures XR ANKLE GENERAL 3V AP/LAT/OBL LT X-RAY ANKLE MINIMUM 3 VIEWS Shannon Hawkins PA-C [address] [place] [address] [place] [address] Referral ID Status Reason Start Date Expiration Date V isits Requested Visits Authorized [id number] Closed Auto-Generate d Referral 07/17/2021 08/16/2022 1 1 [facility] Summary Purpose Family History No Family History Records FoundNo Family History Records FoundNo Family History Records FoundNo Family History Records FoundNo Family History Records FoundNo Family History Records FoundNo Family History Records FoundNo Family History Records FoundNo Family History Records FoundNo Family History Records Found Advance Directives No Advanced Directives Records FoundDocuments on File Type Date Recorded Patient Plate Shop Helper Expl anation Advance Directive(s) Advance Directive(s) 12/16/2021 [...] Documents on File Type Date Recorded Patient Plate Shop Helper Expl anation Advance Directive(s) Advance Directive(s) 05/01/2022 [...] Documents on File Type Date Recorded Patient Plate Shop Helper Expl anation Advance Directive(s) Advance Directive(s) 05/21/2022 [...] Documents on File Type Date Recorded Patient Plate Shop Helper Expl anation Advance Directive(s) Advance Directive(s) 06/04/2022 [...] Documents on File Type Date Recorded Patient Plate Shop Helper Expl anation Advance Directive(s) 07/27/2019 10:42 AM Documents on File Type Date Recorded Patient Plate Shop Helper Expl anation Advance Directive(s) 07/27/2019 10:42 AM Latest Code Status on File Code Status Date Activated Date Inactivated Comments Full Code 06/05/2022 8:03 AM Date Activated Date Inactivated Comments 06/05/2022 8:03 AM Reason for Referral Specialty Diagnoses / Procedures Referred By Contac t Referred To Contact Diagnoses Sialadenitis Procedures MRI SIALOGRAM [place] MRI, FACE, NECK, COMBO Karen Land, UNLOADER OPERATOR-STATISTICAL FINANCIAL ANALYST [address] [place] [address] Referral ID Status Reason Start Date Expiration Date Visits Requested Visits Authorized [id number] Authorized - Bimal 03/26/2022 04/20/2023 1 1 Referral ID Status Reason Start Date Expiration Date Visits Re quested Visits Authorized [id number] Closed 03/26/2022 04/20/2023 1 1 Specialty Diagnoses / Procedures Referred By Contac t Referred To Contact Christine Dean PA-C [address] [place] [address] Referral ID Status Reason Start Date Expiration Date Visits Re quested Visits Authorized [id number] Closed 1 1 Specialty Diagnoses / Procedures Referred By Contac t Referred To Contact Diagnoses Papillary thyroid carcinoma Procedures [facility] Tawanna Rivera MD [address] [place] [address] Referral ID Status Reason Start Date Expiration Date V isits Requested Visits Authorized [id number] New Request 09/16/2022 10/11/2023 1 1 Specialty Diagnoses / Procedures Referred By Contac t Referred To Contact Gastroenterology Diagnoses Bloating Procedures CONSULT TO GASTROENTEROLOGY OFFICE/OUTPATIENT NEW HIGH MDM 60-74 MINUTES Christine Dean PA-C [address] [place] [address] Referral ID Status Reason Start Date Expiration Date Visits Requested Visits Authorized [id number] Authorized PCP Requested Referral 2 10/12/2023 1 1 Specialty Diagnoses / Procedures Referred By Contac t Referred To Contact CT IMAGING Diagnoses Adverse effect of treatment, initial encounter Procedures CTA CHEST (NONGATED) W IVCON CT ANGIOGRAPHY CHEST W/CONTRAST/NONCONTRAST Renard Almodovar, KIMBERLEY.STATISTICAL FINANCIAL ANALYST [address] [place] [address] Ct Imaging Referral ID Status Reason Start Date Expiration Date Visits Requested Visits Authorized [id number] Waiting for Online Response Auto-Genera ciro Referral Patient Cleared - Admin/Chair man/Directo r advise to proceed 04/27/2023 05/26/2024 1 1 Specialty Diagnoses / Procedures Referred By Contac t Referred To Contact CT IMAGING Diagnoses Adverse effect of treatment, initial encounter Procedures CTA NECK W IVCON CT ANGIOGRAPHY NECK W/CONTRAST/NONCONTRAST Renard Almodovar, KIMBERLEY.STATISTICAL FINANCIAL ANALYST [address] [place] [address] Ct Imaging Referral ID Status Reason Start Date Expiration Date Visits Requested Visits Authorized [id number] Additional Clinical Info Needed Auto-Genera ciro Referral Patient Cleared - Admin/Chair man/Directo r advise to proceed 04/27/2023 05/26/2024 1 1 Specialty Diagnoses / Procedures Referred By Contac t Referred To Contact CT IMAGING Diagnoses Adverse effect of treatment, initial encounter Procedures CTA NECK W IVCON CT ANGIOGRAPHY NECK W/CONTRAST/NONCONTRAST Renard Almodovar, KIMBERLEY.STATISTICAL FINANCIAL ANALYST [address] [place] [address] [place] [address] Referral ID Status Reason Start Date Expiration Date V isits Requested Visits Authorized [id number] Denied Auto-Generat ed Referral Patient Cleared - Admin/Chairm an/Director advise to proceed or did not respond 04/27/2023 06/26/2023 1 0 Specialty Diagnoses / Procedures Referred By Contac t Referred To Contact Ent - Otolaryngology Diagnoses Tinnitus of right ear Right ear pain Procedures CONSULT TO ENT OFFICE/OUTPATIENT NEW HIGH MDM 60 MINUTES Nagi Red MD [address] [place] [address] Referral ID Status Reason Start Date Expiration Date Visits Requested Visits Authorized [id number] Authorized PCP Requested Referral 03/25/2024 03/25/2025 1 1 Referral ID Status Reason Start Date Expiration Date V isits Requested Visits Authorized [id number] New Request 05/01/2024 05/26/2025 1 1 Specialty Diagnoses / Procedures Referred By Contac t Referred To Contact MR IMAGING Diagnoses Spinal stenosis of lumbar region, unspecified whether neurogenic claudication present Radiculopathy, lumbar region Spinal stenosis of lumbar region with neurogenic claudication Procedures MRI LUMBAR SPINE WO IVCON MRI SPINAL CANAL LUMBAR W/O CONTRAST MATERIAL Carlie Brownlee, UNLOADER OPERATOR.STATISTICAL FINANCIAL ANALYST [address] [place] [address] Mr Imaging [facility] Referral ID Status Reason Start Date Expiration Date Visits Requested Visits Authorized [id number] Pending Review Auto-Generat ed Referral 05/16/2024 06/14/2025 1 1 Specialty Diagnoses / Procedures Referred By Contac t Referred To Contact MR IMAGING Diagnoses Migraine without aura and without status migrainosus, not intractable Procedures MRI BRAIN WO IVCON MRI BRAIN BRAIN STEM W/O CONTRAST MATERIAL Renard Almodovar, KIMBERLEY.STATISTICAL FINANCIAL ANALYST [address] [place] [address] [place] [address] Referral ID Status Reason Start Date Expiration Date Visits Requested Visits Authorized [id number] Authorized Auto-Generat ed Referral 12/15/2024 01/14/2026 1 1 Medications Administered Section Inactive Administered Medications - up to 3 most recent administrations Medication Order MAR Action Action Date Dose Rate Site fentaNYL 50 mcg/mL injection (SUBLIMAZE) X (OR/PROCEDURE) PRN, Starting on Wed02/12/23 at 1339, Until Wed02/12/23 at 1401, Intraprocedure Given 02/12/2023 1:42 PM EDT 50 mcg Given 02/12/2023 1:39 PM EDT 50 mcg midazolam (PF) injection (VERSED) X (OR/PROCEDURE) PRN, Starting on Wed02/12/23 at 1339, Until Wed02/12/23 at 1401, Intraprocedure Given 02/12/2023 1:39 PM EDT 3 mg Given 02/12/2023 1:32 PM EDT 1 mg Health Concerns Infection Onset Date Last Indicated Resolved Time Influenza 01/07/2024 01/07/2024 Additional Source Comments INFORMATION SOURCE (unrecogn ized section and content) DATE CREATED AUTHOR 01/25/2020 [facility] DATE CREATED AUTHOR AUTHOR'S ORGANIZ ATION 05/01/2020 [facility] DATE CREATED AUTHOR AUTHOR'S ORGANIZ ATION 02/09/2021 [facility] DATE CREATED AUTHOR AUTHOR'S ORGANIZ ATION 10/31/2022 [facility] DATE CREATED AUTHOR AUTHOR'S ORGANIZ ATION 05/05/2024 [facility] DATE CREATED AUTHOR AUTHOR'S ORGANIZ ATION 05/14/2024 [facility] DATE CREATED AUTHOR AUTHOR'S ORGANIZ ATION 03/18/2025 [facility] DATE CREATED AUTHOR AUTHOR'S ORGANIZ ATION 04/04/2025 [facility] DATE CREATED AUTHOR AUTHOR'S ORGANIZ ATION 04/20/2025 [facility] DATE CREATED AUTHOR AUTHOR'S ORGANIZ ATION 04/23/2025 [facility] Reason for Visit (unrecogniz ed section and content) Reason Comments Follow-up Here for MARTIN educati on. Reason Comments Bloody Stool Specialty Diagnoses / Procedures Referred By Kin t Referred To Contact [facility] Diagnoses Bloody stool Procedures CAPSULE ENDOSCOPY SMALL BOWEL GI TRC IMG INTRALUMINAL ESOPHAGUS-ILEUM W/I&R Susanne Potts, UNLOADER OPERATOR.STATISTICAL FINANCIAL ANALYST [address] [place] [address] [facility] [place] [address] [place] [address] Referral ID Status Reason Start Date Expiration Date V isits Requested Visits Authorized [id number] Closed Auto-Generate d Referral 12/28/2021 12/28/2022 1 1 Reason Comments Follow-up PTC Other Swelling on right si de of neck-goes up to right jaw- started a month ago, it is painful, was checked at urgent care and was started on prednisone and pain medication. Reason Comments New Patient Specialty Diagnoses / Procedures Referred By Kin samuel Referred To Contact Otolaryngology Diagnoses Sialoadenitis of submandibular gland Tawanna Rivera MD [address] [facility] [place] [address] Osvaldo Tapia MD [address] [place] [address] Referral ID Status Reason Start Date Expiration Date V isits Requested Visits Authorized [id number] New Request 03/18/2022 04/12/2023 1 1 Reason Comments Pain Reason Comments Appointment Reschedule Injection Specialty Diagnoses / Procedures Referred By Kin samuel Referred To Contact Diagnoses Sialadenitis Procedures MRI SIALOGRAM WI MRI, FACE, NECK, COMBO Karen Land, UNLOADER OPERATOR-STATISTICAL FINANCIAL ANALYST [address] [place] [address] Referral ID Status Reason Start Date Expiration Date Visits Re quested Visits Authorized [id number] Closed 03/26/2022 04/20/2023 1 1 Reason Comments [...] REINOSO x6 days Reason Comments ER F/U [facility] Reason Comments Outside [id number]-[id number] Ordered Reason Comments Consult GI Specialty Diagnoses / Procedures Referred By Kin samuel Referred To Contact Diagnoses SI (sacroiliac) joint dysfunction Sacroiliitis, not elsewhere classified (HCC) Procedures INJECT SI JOINT ARTHRGRPHY&/ANES/STEROID W/JAYCE INJECTION SACROILIAC JOINT, ARTHROGRAPHY AND/OR ANESTHETIC/STEROID [facility] [address] [place] [address] Referral ID Status Reason Start Date Expiration Date Visits Re quested Visits Authorized [id number] 1 1 Reason Comments F/U 6 months Specialty Diagnoses / Procedures Referred By Contac t Referred To Contact Diagnoses SI (sacroiliac) joint dysfunction Sacroiliitis, not elsewhere classified (HCC) Procedures DSTRJ NEUROLYTIC AGENT OTHER PERIPHERAL NERVE RADIOFREQUENCY ABLATION NERVE SPINAL [facility] [address] [place] [address] Referral ID Status Reason Start Date Expiration Date Visits Re quested Visits Authorized [id number] 1 1 Reason Comments ER FU apt Reason Comments Edema Hands, feet, face Reason Comments Injection Followup Refill Request Pain Reason Comments Refill Request Pain Injection Followup Reason Comments Radiology CT Specialty Diagnoses / Procedures [facility] To Contact [facility] IMAGING Diagnoses Adverse effect of treatment, initial encounter Procedures CTA NECK W IVCON CT ANGIOGRAPHY NECK W/CONTRAST/NONCONTRAST Renard Almodovar, KIMBERLEY.STATISTICAL FINANCIAL ANALYST [address] [place] [address] Ct Imaging [place] [address] Referral ID Status Reason Start Date Expiration Date V isits Requested Visits Authorized [id number] Denied Auto-Generat ed Referral Patient Cleared - Admin/Chairm an/Director advise to proceed or did not respond 04/27/2023 06/26/2023 1 0 Reason Comments Cough X 2 weeksSore throat x 2 days Reason Comments New Patient Foreign Body Reason Comments Outside imaging and ER Reason Comments Cough Chest congestion, ST x5 days Reason Comments Ear Pain left ear pain, cough , fever and sore throat x 8 days, dx with flu b on wednesday Reason Comments Ext / ABD US Reason Comments Back Pain Injection Followup Reason Comments lesion - left shoulder Ringing and burni ng in right ear Reason Comments Pain Reason Comments Spirometry Specialty Diagnoses / Procedures Referred By Kin t Referred To Contact [facility] Diagnoses Exercise-induced asthma SOB (shortness of breath) Procedures SPIROMETRY - BASELINE AND POST DILATOR BRNCDILAT RSPSE SPMTRY PRE&POST-BRNCDILAT ADMNagi Ortega MD [address] [place] [address] [facility] [place] [address] Referral ID Status Reason Start Date Expiration Date V isits Requested Visits Authorized [id number] Closed Auto-Generate d Referral 04/25/2024 05/25/2025 1 1 Reason Comments Appointment Reason Comments Follow-up Wants to discuss jum p in BS sometimes. Reason Comments Pain Left leg painful christine ecially at night x 2 weeks pain comes and goes Reason Comments US results Reason Comments Future Appointment Reason Comments Pain Abdominal Pain Reason Comments Biopsy Reason Comments Suture Removal Reason Comments ER Discharge Summary Reason Comments Headache Loss of taste and sm ell, sneezing x 3 days Reason Comments Physical Reason Comments Orders Reason Comments Headache REINOSO and vomiting x 2 days Reason Comments FMLA Paperwork Reason Comments ER F/U [facility] Reason Comments ER F/U migraines Reason Comments Follow Up Reason Comments Back Pain Refill Request Reason Comments Recheck Reason Comments Cough Fever, sinus congest ion, chest congestion x4 days Reason Comments Results Outside labs Reason Comments Insurance Authorization Lumbar MRI Lavinia l Reason Comments Procedure [facility] - gastric emptyi ng study Reason Comments Patient Question Reason Comments Refill Request Pain Reason Comments Medication Problem traMADol (ULTRAM) 50 mg tablet Reason Comments Medication Question Care Teams (unrecognized sec tion and content) Marketing Intern Relationship Specialty Start Date End Date Nagi Red MD [facility] [place] [address] PCP - General Family Medicine 10/16/20 Marketing Intern Relationship Specialty Start Date End Date Nagi Red MD [facility] [place], [place] [address] Family Practice 03/29/14 Marketing Intern Relationship Specialty Start Date End Date Nagi Red MD [address] [place] [address] [id number] Family Practice 03/29/14 Marketing Intern Relationship Specialty Start Date End Date Nagi Red MD [address] [place] [id number] PCP - General Family Medicine 10/16/20 Marketing Intern Relationship Specialty Start Date End Date Nagi Red MD [address] [place] [address] , [place] [address] PCP - General Family Medicine 10/16/20 Marketing Intern Relationship Specialty Start Date End Date Nagi Red MD [address] [place] [address], [place] [address] Family Practice 03/29/14 Marketing Intern Relationship Specialty Start Date End Date Nagi Red MD [address] [place] [address], [place] [address] Family Practice 03/29/14 Marketing Intern Relationship Specialty Start Date End Date Nagi Red MD [address] [place] [address] , [place] [address] PCP - General Family Medicine 10/16/20 Marketing Intern Relationship Specialty Start Date End Date Nagi Red MD [address] [place] [address] , [place] [address] PCP - General Family Medicine 10/16/20 Marketing Intern Relationship Specialty Start Date End Date Nagi Red MD [address] [place] [address], [place] [address] Family Practice 03/29/14 Marketing Intern Relationship Specialty Start Date End Date Nagi Red MD [address] [place] [address], [place] [address] Family Practice 03/29/14 Marketing Intern Relationship Specialty Start Date End Date Nagi Red MD [address] [place] [address], [place] [address] PCP - General Family Practice 07/06/22 Nagi Red MD [address] [place] [address], [place] [address] Family Practice 03/29/14 Marketing Intern Relationship Specialty Start Date End Date Nagi Red MD [address] [place] [address], [place] [address] PCP - General Family Practice 07/06/22 Nagi Red MD [address] [place] [address], [place] [address] Family Practice 03/29/14 Marketing Intern Relationship Specialty Start Date End Date Nagi Red MD [address] [place] [address] , [place] [address] PCP - General Family Medicine 10/16/20 Marketing Intern Relationship Specialty Start Date End Date Nagi Red MD [address] [place] [address], [place] [address] PCP - General Family Medicine 07/06/22 Nagi Red MD [address] [place] [address], [place] [address] Family Medicine 03/29/14 Marketing Intern Relationship Specialty Start Date End Date Nagi Red MD [address] [place] [address], [place] [address] PCP - General Family Medicine 07/06/22 Nagi Red MD [address] [place] [address], [place] [address] Family Medicine 03/29/14 Marketing Intern Relationship Specialty Start Date End Date Nagi Red MD [address] [place] [address], [place] [address] PCP - General Family Medicine 07/06/22 Nagi Red MD [address] [place] [address], [place] [address] Family Medicine 03/29/14 Marketing Intern Relationship Specialty Start Date End Date Nagi Red MD [address] [place] [address], [place] [address] PCP - General Family Medicine 07/06/22 Nagi Red MD [facility] [place] [address] Family Medicine 03/29/14 Marketing Intern Relationship Specialty Start Date End Date Nagi Red MD [address] [place] [address], [place] [address] PCP - General Family Medicine 07/06/22 Nagi Red MD [address] [place] [address], [place] [address] Family Medicine 03/29/14 Marketing Intern Relationship Specialty Start Date End Date Nagi Red MD [address] [place] [address], [place] [address] PCP - General Family Medicine 07/06/22 Nagi Red MD [address] [place] [address], [place] [address] Family Medicine 03/29/14 Marketing Intern Relationship Specialty Start Date End Date Nagi Red MD [address] [place] [address], [place] [address] PCP - General Family Medicine 07/06/22 Nagi Red MD [address] [place] [address], [place] [address] Family Medicine 03/29/14 Marketing Intern Relationship Specialty Start Date End Date Nagi Red MD [address] [place] [address], [place] [address] PCP - General Family Medicine 07/06/22 Nagi Red MD [address] [place] [address], [place] [address] Family Medicine 03/29/14 Marketing Intern Relationship Specialty Start Date End Date Nagi Red MD [address] [facility] [place] [address] PCP - General Family Medicine 07/06/22 Nagi Red MD [address] [facility] [place] [address] Family Medicine 03/29/14 Marketing Intern Relationship Specialty Start Date End Date Nagi Red MD [address] [facility] [place] [address] PCP - General Family Medicine 07/06/22 Nagi Red MD 0 [facility] [place] [address] Family Medicine 03/29/14 Marketing Intern Relationship Specialty Start Date End Date Nagi Red MD 0 [facility] [place] [address] PCP - General Family Medicine 07/06/22 Nagi Red MD 0 [facility] [place] [address] Family Medicine 03/29/14 Marketing Intern Relationship Specialty Start Date End Date Nagi Red MD 0 [facility] [place] [address] PCP - General Family Medicine 07/06/22 Nagi Red MD 0 [facility] [place] [address] Family Medicine 03/29/14 Marketing Intern Relationship Specialty Start Date End Date Nagi Red MD [address] [facility] [place] [address] PCP - General Family Medicine 07/06/22 Nagi Red MD [address] [facility] [place] [address] Family Medicine 03/29/14 Marketing Intern Relationship Specialty Start Date End Date Nagi Red MD [address] [facility] [place] [address] PCP - General Family Medicine 07/06/22 Nagi Red MD [address] [facility] [place] [address] Family Medicine 03/29/14 Marketing Intern Relationship Specialty Start Date End Date Nagi Red MD [address] [facility] [place] [address] PCP - General Family Medicine 07/06/22 Nagi Red MD [address] [facility] [place] [address] Family Medicine 03/29/14 Marketing Intern Relationship Specialty Start Date End Date Nagi Red MD [address] [facility] [place] [address] PCP - General Family Medicine 07/06/22 Nagi Red MD [address] [facility] [place] [address] Family Medicine 03/29/14 Marketing Intern Relationship Specialty Start Date End Date Nagi Red MD [address] [facility] [place] [address] PCP - General Family Medicine 07/06/22 Nagi Red MD [address] [facility] [place] [address] Family Medicine 03/29/14 Marketing Intern Relationship Specialty Start Date End Date Nagi Red MD [address] [facility] [place] [address] PCP - General Family Medicine 07/06/22 Nagi Red MD [address] [facility] [place] [address] Family Medicine 03/29/14 Marketing Intern Relationship Specialty Start Date End Date Nagi Red MD [address] [place] [address] PCP - General Family Medicine 07/06/22 Nagi Red MD [address] [place] [address] Family Medicine 03/29/14 Marketing Intern Relationship Specialty Start Date End Date Nagi Red MD [address] [place] [address] PCP - General Family Medicine 07/06/22 Nagi Red MD [address] [place] [address] Family Medicine 03/29/14 Marketing Intern Relationship Specialty Start Date End Date Nagi Red MD [address] [place] [address] PCP - General Family Medicine 07/06/22 Nagi Red MD [address] [place] [address] Family Medicine 03/29/14 Marketing Intern Relationship Specialty Start Date End Date Naig Red MD [address] [place] [address] PCP - General Family Medicine 07/06/22 Nagi Red MD [address] [facility] [place] [address] Family Medicine 03/29/14 Marketing Intern Relationship Specialty Start Date End Date Nagi Red MD [address] [facility] [place] [address] PCP - General Family Medicine 07/06/22 Nagi Red MD [address] [facility] [place] [address] Family Medicine 03/29/14 Marketing Intern Relationship Specialty Start Date End Date Nagi Red MD [address] [facility] [place] [address] PCP - General Family Medicine 07/06/22 Nagi Red MD [address] [facility] [place] [address] Family Medicine 03/29/14 Marketing Intern Relationship Specialty Start Date End Date Nagi Red MD [address] [place] [address] PCP - General Family Medicine 07/06/22 Nagi Red MD [address] [facility] [place] [address] Family Medicine 03/29/14 Marketing Intern Relationship Specialty Start Date End Date Nagi Red MD [address] [facility] [place] [address] PCP - General Family Medicine 07/06/22 Nagi Red MD [address] [place] [address] Family Medicine 03/29/14 Marketing Intern Relationship Specialty Start Date End Date Nagi Red MD [address] [place] [address] PCP - General Family Medicine 07/06/22 Nagi Red MD [address] [place] [address] Family Medicine 03/29/14 Marketing Intern Relationship Specialty Start Date End Date Nagi Red MD [address] [place] [address] PCP - General Family Medicine 07/06/22 Nagi Red MD [address] [place] [address] Family Medicine 03/29/14 Marketing Intern Relationship Specialty Start Date End Date Nagi Red MD [address] [place] [address] PCP - General Family Medicine 10/16/20 Marketing Intern Relationship Specialty Start Date End Date Nagi Red MD [address] [place] [address] PCP - General Family Medicine 07/06/22 Nagi Red MD [address] [place] [address] Family Medicine 03/29/14 Marketing Intern Relationship Specialty Start Date End Date Nagi Red MD [address] [place] [address] PCP - General Family Medicine 07/06/22 Nagi Red MD [address] [facility] [place] [address] Family Medicine 03/29/14 Marketing Intern Relationship Specialty Start Date End Date Nagi Red MD [address] [place] [address] PCP - General Family Medicine 07/06/22 Nagi Red MD [address] [place] [address] Family Medicine 03/29/14 Marketing Intern Relationship Specialty Start Date End Date Nagi Red MD [address] [place] [address] Family Medicine 03/29/14 Marketing Intern Relationship Specialty Start Date End Date Nagi eRd MD [address] [place] [address] PCP - General Family Medicine 07/06/22 Nagi Red MD [address] [place] [address] Family Medicine 03/29/14 Marketing Intern Relationship Specialty Start Date End Date Nagi Red MD [address] [place] [address] PCP - General Family Medicine 07/06/22 Nagi Red MD [address] [place] [address] Family Medicine 03/29/14 Marketing Intern Relationship Specialty Start Date End Date Nagi Red MD [address] [facility] [place] [address] PCP - General Family Medicine 07/06/22 Nagi Red MD [address] [place] [address] Family Medicine 03/29/14 Marketing Intern Relationship Specialty Start Date End Date Nagi eRd MD [address] [place] [address] PCP - General Family Medicine 07/06/22 Nagi Red MD [address] [place] [address] Family Medicine 03/29/14 Marketing Intern Relationship Specialty Start Date End Date Nagi Red MD [address] [place] [address] PCP - General Family Medicine 07/06/22 Nagi Red MD [address] [place] [address] Family Medicine 03/29/14 Marketing Intern Relationship Specialty Start Date End Date Nagi Red MD [address] [place] [address] PCP - General Family Medicine 07/06/22 Nagi Red MD [address] [place] [address] Family Medicine 03/29/14 Marketing Intern Relationship Specialty Start Date End Date Nagi Red MD [address] [place] [address] PCP - General Family Medicine 07/06/22 Nagi Red MD [address] [facility] [place] [address] Family Medicine 03/29/14 Marketing Intern Relationship Specialty Start Date End Date Nagi Red MD [address] [facility] [place] [address] PCP - General Family Medicine 07/06/22 Nagi Red MD [address] [facility] [place] [address] Family Medicine 03/29/14 Marketing Intern Relationship Specialty Start Date End Date Nagi Red MD [address] [facility] [place] [address] PCP - General Family Medicine 07/06/22 Nagi Red MD [address] [facility] [place] [address] Family Medicine 03/29/14 Marketing Intern Relationship Specialty Start Date End Date Nagi Red MD [address] [facility] [place] [address] PCP - General Family Medicine 07/06/22 Nagi Red MD [address] [facility] [place] [address] Family Medicine 03/29/14 Renard Almodovar APRN.STATISTICAL FINANCIAL ANALYST [address] [place] [address] Continuous Churn Buttermaker Family Medicine 10/28/24 Christine Dean PA-C [address] [facility] [place] [address] Continuous [employer]urn Buttermaker Family Medicine 10/28/24 Marketing Intern Relationship Specialty Start Date End Date Nagi Red MD [address] [place] [address] PCP - General Family Medicine 07/06/22 Nagi Red MD [address] [place] [address] Family Medicine 03/29/14 Renard Almodovar APRN.STATISTICAL FINANCIAL ANALYST [address] [place] [address] Continuous Churn Buttermaker Family Medicine 10/28/24 Christine Dean PA-C [address] [place] [address] Continuous Churn Buttermaker Family [facility] 10/28/24 Marketing Intern Relationship Specialty Start Date End Date Nagi Red MD [address] [place] [address] PCP - General Family Medicine 07/06/22 Nagi Red MD [address] [place] [address] Family Medicine 03/29/14 Renard Almodovar, KIMBERLEY.STATISTICAL FINANCIAL ANALYST [address] [place] [address] Continuous Churn Buttermaker Family Medicine 10/28/24 Christine Dean PA-C [address] [place] [address] Continuous Churn Buttermaker Family Medicine 10/28/24 Marketing Intern Relationship Specialty Start Date End Date Nagi Red MD [address] [facility] [place] [address] PCP - General Family Medicine 07/06/22 Nagi Red MD [address] [facility] [place] [address] Family Medicine 03/29/14 Reanrd Almodovar APRN.STATISTICAL FINANCIAL ANALYST [address] [place] [address] Continuous Churn Buttermaker Family Medicine 10/28/24 Christine Dean PA-C [address] [place] [address] Continuous Churn Buttermaker Family Medicine 10/28/24 Marketing Intern Relationship Specialty Start Date End Date Nagi Red MD [address] [facility] [place] [address] PCP - General Family Medicine 07/06/22 Nagi Red MD [address] [facility] [place] [address] Family Medicine 03/29/14 Renard Almodovar, KIMBERLEY.STATISTICAL FINANCIAL ANALYST [address] [place] [address] Continuous Churn Buttermaker Family Medicine 10/28/24 Christine Dean PA-C [address] [facility] [place] [address] Continuous Churn Buttermaker Family Medicine 10/28/24 Marketing Intern Relationship Specialty Start Date End Date Nagi Red MD [address] [facility] [place] [address] PCP - General Family Medicine 07/06/22 Nagi Red MD [address] [facility] [place] [address] Family Medicine 03/29/14 Renard Almodovar, KIMBERLEY.STATISTICAL FINANCIAL ANALYST [address] [place] [address] Continuous Churn Buttermaker Family Medicine 10/28/24 Christine Dean PA-C [address] [facility] [place] [address] Continuous Churn Buttermaker [facility] 10/28/24 Marketing Intern Relationship Specialty Start Date End Date Nagi Red MD [address] [facility] [place] [address] PCP - General Family Medicine 07/06/22 Nagi Red MD [address] [facility] [place] [address] Family Medicine 03/29/14 Renard Almodovar, UNLOADER OPERATOR.STATISTICAL FINANCIAL ANALYST [address] [place] [address] Continuous Churn Buttermaker Family Medicine 10/28/24 Christine Dean PA-C [address] [facility] [place] [address] Continuous Churn Buttermaker Family Medicine 10/28/24 Marketing Intern Relationship Specialty Start Date End Date Nagi Red MD [address] [facility] [place] [address] PCP - General Family Medicine 07/06/22 Nagi Red MD [address] [facility] [place] [address] Family Medicine 03/29/14 Renard Almodovar APRN.STATISTICAL FINANCIAL ANALYST [address] [place] [address] [facility] 10/28/24 Christine Dean PA-C [address] [facility] [place] [address] Continuous [facility] 10/28/24 Marketing Intern Relationship Specialty Start Date End Date Nagi Red MD [address] [place] [address] PCP - General Family Medicine 07/06/22 Nagi Red MD [address] [facility] [place] [address] Family Medicine 03/29/14 Renard Almodovar APRN.STATISTICAL FINANCIAL ANALYST [address] [place] [address] Continuous [facility] 10/28/24 Christine Dean PA-C [address] [facility] [place] [address] Continuous [facility] 10/28/24 Marketing Intern Relationship Specialty Start Date End Date Nagi Red MD [address] [facility] [place] [address] PCP - General Family Medicine 07/06/22 Nagi Red MD [address] [facility] [place] [address] Family Medicine 03/29/14 Renard Almodovar APRN.STATISTICAL FINANCIAL ANALYST [address] [place] [address] Continuous [facility] 10/28/24 Christine Dean PA-C [address] [facility] [place] [address] Continuous [facility] 10/28/24 Marketing Intern Relationship Specialty Start Date End Date Nagi Red MD [address] [facility] [place] [address] PCP - General Family Medicine 07/06/22 Nagi Red MD [address] [facility] [place] [address] Family Medicine 03/29/14 Renard Almodovar, UNLOADER OPERATOR.STATISTICAL FINANCIAL ANALYST [address] [place] [address] Continuous [facility] 10/28/24 Christine Dean PA-C [address] [facility] [place] [address] Continuous [facility] Family [facility] 10/28/24 Marketing Intern Relationship Specialty Start Date End Date Nagi Red MD [address] [facility] [place] [address] PCP - General Family Medicine 07/06/22 Nagi Red MD [address] [facility] [place] [address] Family Medicine 03/29/14 Renard Almodovar, UNLOADER OPERATOR.STATISTICAL FINANCIAL ANALYST [address] [place] [address] Continuous [facility] 10/28/24 Christine Dean PA-C [address] [facility] [place] [address] [facility] 10/28/24 Marketing Intern Relationship Specialty Start Date End Date Nagi Red MD [address] [place] [address] PCP - General Family Medicine 07/06/22 Nagi Red MD [address] [facility] [place] [address] Family [facility] 03/29/14 Christine Dean PA-C [address] [place] [address] [facility] 10/28/24 Marketing Intern Relationship Specialty Start Date End Date Nagi Red MD [address] [facility] [place] [address] PCP - General Family Medicine 07/06/22 Nagi Red MD [address] [place] [address] Family Medicine 03/29/14 Christine Dean PA-C [address] [facility] [place] [address] [facility] 10/28/24 Source Comments (unrecognize d section and content) In the event this informatio n is protected by the Federal Confidentiality of Alcohol and Drug Abuse Patient Records regulations: The Federal rules restrict any use of the information to criminally investigate or prosecute any alcohol or drug abuse patient.[facility] the event this information is protected by the Federal Confidentiality of Alcohol and Drug Abuse Patient Records regulations: The Federal rules restrict any use of the information to criminally investigate or prosecute any alcohol or drug abuse patient.[facility] HospitalIn the event this information is protected by the Federal Confidentiality of Alcohol and Drug Abuse Patient Records regulations: The Federal rules restrict any use of the information to criminally investigate or prosecute any alcohol or drug abuse patient.[facility] HospitalIn the event this information is protected by the Federal Confidentiality of Alcohol and Drug Abuse Patient Records regulations: The Federal rules restrict any use of the information to criminally investigate or prosecute any alcohol or drug abuse patient.[facility] HospitalIn the event this information is protected by the Federal Confidentiality of Alcohol and Drug Abuse Patient Records regulations: The Federal rules restrict any use of the information to criminally investigate or prosecute any alcohol or drug abuse patient.[facility] HospitalIn the event this information is protected by the Federal Confidentiality of Alcohol and Drug Abuse Patient Records regulations: The Federal rules restrict any use of the information to criminally investigate or prosecute any alcohol or drug abuse patient.[facility] HospitalIn the event this information is protected by the Federal Confidentiality of Alcohol and Drug Abuse Patient Records regulations: The Federal rules restrict any use of the information to criminally investigate or prosecute any alcohol or drug abuse patient.[facility] HospitalIn the event this information is protected by the Federal Confidentiality of Alcohol and Drug Abuse Patient Records regulations: The Federal rules restrict any use of the information to criminally investigate or prosecute any alcohol or drug abuse patient.[facility] HospitalIn the event this information is protected by the Federal Confidentiality of Alcohol and Drug Abuse Patient Records regulations: The Federal rules restrict any use of the information to criminally investigate or prosecute any alcohol or drug abuse patient.[facility] HospitalIn the event this information is protected by the Federal Confidentiality of Alcohol and Drug Abuse Patient Records regulations: The Federal rules restrict any use of the information to criminally investigate or prosecute any alcohol or drug abuse patient.[facility] HospitalIn the event this information is protected by the Federal Confidentiality of Alcohol and Drug Abuse Patient Records regulations: The Federal rules restrict any use of the information to criminally investigate or prosecute any alcohol or drug abuse patient.[facility] HospitalIn the event this information is protected by the Federal Confidentiality of Alcohol and Drug Abuse Patient Records regulations: The Federal rules restrict any use of the information to criminally investigate or prosecute any alcohol or drug abuse patient.[facility] HospitalIn the event this information is protected by the Federal Confidentiality of Alcohol and Drug Abuse Patient Records regulations: The Federal rules restrict any use of the information to criminally investigate or prosecute any alcohol or drug abuse patient.[facility] HospitalIn the event this information is protected by the Federal Confidentiality of Alcohol and Drug Abuse Patient Records regulations: The Federal rules restrict any use of the information to criminally investigate or prosecute any alcohol or drug abuse patient.[facility] HospitalIn the event this information is protected by the Federal Confidentiality of Alcohol and Drug Abuse Patient Records regulations: The Federal rules restrict any use of the information to criminally investigate or prosecute any alcohol or drug abuse patient.[facility] HospitalIn the event this information is protected by the Federal Confidentiality of Alcohol and Drug Abuse Patient Records regulations: The Federal rules restrict any use of the information to criminally investigate or prosecute any alcohol or drug abuse patient.[facility] HospitalIn the event this information is protected by the Federal Confidentiality of Alcohol and Drug Abuse Patient Records regulations: The Federal rules restrict any use of the information to criminally investigate or prosecute any alcohol or drug abuse patient.[facility] HospitalIn the event this information is protected by the Federal Confidentiality of Alcohol and Drug Abuse Patient Records regulations: The Federal rules restrict any use of the information to criminally investigate or prosecute any alcohol or drug abuse patient.[facility] HospitalIn the event this information is protected by the Federal Confidentiality of Alcohol and Drug Abuse Patient Records regulations: The Federal rules restrict any use of the information to criminally investigate or prosecute any alcohol or drug abuse patient.[facility] HospitalIn the event this information is protected by the Federal Confidentiality of Alcohol and Drug Abuse Patient Records regulations: The Federal rules restrict any use of the information to criminally investigate or prosecute any alcohol or drug abuse patient.[facility] HospitalIn the event this information is protected by the Federal Confidentiality of Alcohol and Drug Abuse Patient Records regulations: The Federal rules restrict any use of the information to criminally investigate or prosecute any alcohol or drug abuse patient.[facility] HospitalIn the event this information is protected by the Federal Confidentiality of Alcohol and Drug Abuse Patient Records regulations: The Federal rules restrict any use of the information to criminally investigate or prosecute any alcohol or drug abuse patient.[facility] HospitalIn the event this information is protected by the Federal Confidentiality of Alcohol and Drug Abuse Patient Records regulations: The Federal rules restrict any use of the information to criminally investigate or prosecute any alcohol or drug abuse patient.[facility] HospitalIn the event this information is protected by the Federal Confidentiality of Alcohol and Drug Abuse Patient Records regulations: The Federal rules restrict any use of the information to criminally investigate or prosecute any alcohol or drug abuse patient.[facility] HospitalIn the event this information is protected by the Federal Confidentiality of Alcohol and Drug Abuse Patient Records regulations: The Federal rules restrict any use of the information to criminally investigate or prosecute any alcohol or drug abuse patient.[facility] HospitalIn the event this information is protected by the Federal Confidentiality of Alcohol and Drug Abuse Patient Records regulations: The Federal rules restrict any use of the information to criminally investigate or prosecute any alcohol or drug abuse patient.[facility] HospitalIn the event this information is protected by the Federal Confidentiality of Alcohol and Drug Abuse Patient Records regulations: The Federal rules restrict any use of the information to criminally investigate or prosecute any alcohol or drug abuse patient.[facility] HospitalIn the event this information is protected by the Federal Confidentiality of Alcohol and Drug Abuse Patient Records regulations: The Federal rules restrict any use of the information to criminally investigate or prosecute any alcohol or drug abuse patient.[facility] HospitalIn the event this information is protected by the Federal Confidentiality of Alcohol and Drug Abuse Patient Records regulations: The Federal rules restrict any use of the information to criminally investigate or prosecute any alcohol or drug abuse patient.[facility] HospitalIn the event this information is protected by the Federal Confidentiality of Alcohol and Drug Abuse Patient Records regulations: The Federal rules restrict any use of the information to criminally investigate or prosecute any alcohol or drug abuse patient.[facility] HospitalIn the event this information is protected by the Federal Confidentiality of Alcohol and Drug Abuse Patient Records regulations: The Federal rules restrict any use of the information to criminally investigate or prosecute any alcohol or drug abuse patient.[facility] HospitalIn the event this information is protected by the Federal Confidentiality of Alcohol and Drug Abuse Patient Records regulations: The Federal rules restrict any use of the information to criminally investigate or prosecute any alcohol or drug abuse patient.[facility] HospitalIn the event this information is protected by the Federal Confidentiality of Alcohol and Drug Abuse Patient Records regulations: The Federal rules restrict any use of the information to criminally investigate or prosecute any alcohol or drug abuse patient.[facility] HospitalIn the event this information is protected by the Federal Confidentiality of Alcohol and Drug Abuse Patient Records regulations: The Federal rules restrict any use of the information to criminally investigate or prosecute any alcohol or drug abuse patient.[facility] HospitalIn the event this information is protected by the Federal Confidentiality of Alcohol and Drug Abuse Patient Records regulations: The Federal rules restrict any use of the information to criminally investigate or prosecute any alcohol or drug abuse patient.[facility] HospitalIn the event this information is protected by the Federal Confidentiality of Alcohol and Drug Abuse Patient Records regulations: The Federal rules restrict any use of the information to criminally investigate or prosecute any alcohol or drug abuse patient.[facility] HospitalIn the event this information is protected by the Federal Confidentiality of Alcohol and Drug Abuse Patient Records regulations: The Federal rules restrict any use of the information to criminally investigate or prosecute any alcohol or drug abuse patient.[facility] HospitalIn the event this information is protected by the Federal Confidentiality of Alcohol and Drug Abuse Patient Records regulations: The Federal rules restrict any use of the information to criminally investigate or prosecute any alcohol or drug abuse patient.[facility] HospitalIn the event this information is protected by the Federal Confidentiality of Alcohol and Drug Abuse Patient Records regulations: The Federal rules restrict any use of the information to criminally investigate or prosecute any alcohol or drug abuse patient.[facility] HospitalIn the event this information is protected by the Federal Confidentiality of Alcohol and Drug Abuse Patient Records regulations: The Federal rules restrict any use of the information to criminally investigate or prosecute any alcohol or drug abuse patient.[facility] HospitalIn the event this information is protected by the Federal Confidentiality of Alcohol and Drug Abuse Patient Records regulations: The Federal rules restrict any use of the information to criminally investigate or prosecute any alcohol or drug abuse patient.[facility] HospitalIn the event this information is protected by the Federal Confidentiality of Alcohol and Drug Abuse Patient Records regulations: The Federal rules restrict any use of the information to criminally investigate or prosecute any alcohol or drug abuse patient.[facility] HospitalIn the event this information is protected by the Federal Confidentiality of Alcohol and Drug Abuse Patient Records regulations: The Federal rules restrict any use of the information to criminally investigate or prosecute any alcohol or drug abuse patient.[facility] HospitalIn the event this information is protected by the Federal Confidentiality of Alcohol and Drug Abuse Patient Records regulations: The Federal rules restrict any use of the information to criminally investigate or prosecute any alcohol or drug abuse patient.[facility] HospitalIn the event this information is protected by the Federal Confidentiality of Alcohol and Drug Abuse Patient Records regulations: The Federal rules restrict any use of the information to criminally investigate or prosecute any alcohol or drug abuse patient.[facility] HospitalIn the event this information is protected by the Federal Confidentiality of Alcohol and Drug Abuse Patient Records regulations: The Federal rules restrict any use of the information to criminally investigate or prosecute any alcohol or drug abuse patient.[facility] HospitalIn the event this information is protected by the Federal Confidentiality of Alcohol and Drug Abuse Patient Records regulations: The Federal rules restrict any use of the information to criminally investigate or prosecute any alcohol or drug abuse patient.[facility] HospitalIn the event this information is protected by the Federal Confidentiality of Alcohol and Drug Abuse Patient Records regulations: The Federal rules restrict any use of the information to criminally investigate or prosecute any alcohol or drug abuse patient.[facility] HospitalIn the event this information is protected by the Federal Confidentiality of Alcohol and Drug Abuse Patient Records regulations: The Federal rules restrict any use of the information to criminally investigate or prosecute any alcohol or drug abuse patient.[facility] HospitalIn the event this information is protected by the Federal Confidentiality of Alcohol and Drug Abuse Patient Records regulations: The Federal rules restrict any use of the information to criminally investigate or prosecute any alcohol or drug abuse patient.[facility] HospitalIn the event this information is protected by the Federal Confidentiality of Alcohol and Drug Abuse Patient Records regulations: The Federal rules restrict any use of the information to criminally investigate or prosecute any alcohol or drug abuse patient.[facility] HospitalIn the event this information is protected by the Federal Confidentiality of Alcohol and Drug Abuse Patient Records regulations: The Federal rules restrict any use of the information to criminally investigate or prosecute any alcohol or drug abuse patient.[facility] HospitalIn the event this information is protected by the Federal Confidentiality of Alcohol and Drug Abuse Patient Records regulations: The Federal rules restrict any use of the information to criminally investigate or prosecute any alcohol or drug abuse patient.[facility] HospitalIn the event this information is protected by the Federal Confidentiality of Alcohol and Drug Abuse Patient Records regulations: The Federal rules restrict any use of the information to criminally investigate or prosecute any alcohol or drug abuse patient.[facility] HospitalIn the event this information is protected by the Federal Confidentiality of Alcohol and Drug Abuse Patient Records regulations: The Federal rules restrict any use of the information to criminally investigate or prosecute any alcohol or drug abuse patient.[facility] HospitalIn the event this information is protected by the Federal Confidentiality of Alcohol and Drug Abuse Patient Records regulations: The Federal rules restrict any use of the information to criminally investigate or prosecute any alcohol or drug abuse patient.[facility] HospitalIn the event this information is protected by the Federal Confidentiality of Alcohol and Drug Abuse Patient Records regulations: The Federal rules restrict any use of the information to criminally investigate or prosecute any alcohol or drug abuse patient.[facility] HospitalIn the event this information is protected by the Federal Confidentiality of Alcohol and Drug Abuse Patient Records regulations: The Federal rules restrict any use of the information to criminally investigate or prosecute any alcohol or drug abuse patient.[facility] HospitalIn the event this information is protected by the Federal Confidentiality of Alcohol and Drug Abuse Patient Records regulations: The Federal rules restrict any use of the information to criminally investigate or prosecute any alcohol or drug abuse patient.[facility] HospitalIn the event this information is protected by the Federal Confidentiality of Alcohol and Drug Abuse Patient Records regulations: The Federal rules restrict any use of the information to criminally investigate or prosecute any alcohol or drug abuse patient.[facility] HospitalIn the event this information is protected by the Federal Confidentiality of Alcohol and Drug Abuse Patient Records regulations: The Federal rules restrict any use of the information to criminally investigate or prosecute any alcohol or drug abuse patient.[facility] HospitalIn the event this information is protected by the Federal Confidentiality of Alcohol and Drug Abuse Patient Records regulations: The Federal rules restrict any use of the information to criminally investigate or prosecute any alcohol or drug abuse patient.[facility] HospitalIn the event this information is protected by the Federal Confidentiality of Alcohol and Drug Abuse Patient Records regulations: The Federal rules restrict any use of the information to criminally investigate or prosecute any alcohol or drug abuse patient.[facility] HospitalIn the event this information is protected by the Federal Confidentiality of Alcohol and Drug Abuse Patient Records regulations: The Federal rules restrict any use of the information to criminally investigate or prosecute any alcohol or drug abuse patient.[facility] HospitalIn the event this information is protected by the Federal Confidentiality of Alcohol and Drug Abuse Patient Records regulations: The Federal rules restrict any use of the information to criminally investigate or prosecute any alcohol or drug abuse patient.[facility] HospitalIn the event this information is protected by the Federal Confidentiality of Alcohol and Drug Abuse Patient Records regulations: The Federal rules restrict any use of the information to criminally investigate or prosecute any alcohol or drug abuse patient.[facility] HospitalIn the event this information is protected by the Federal Confidentiality of Alcohol and Drug Abuse Patient Records regulations: The Federal rules restrict any use of the information to criminally investigate or prosecute any alcohol or drug abuse patient.[facility] HospitalIn the event this information is protected by the Federal Confidentiality of Alcohol and Drug Abuse Patient Records regulations: The Federal rules restrict any use of the information to criminally investigate or prosecute any alcohol or drug abuse patient.[facility] HospitalIn the event this information is protected by the Federal Confidentiality of Alcohol and Drug Abuse Patient Records regulations: The Federal rules restrict any use of the information to criminally investigate or prosecute any alcohol or drug abuse patient.[facility] HospitalIn the event this information is protected by the Federal Confidentiality of Alcohol and Drug Abuse Patient Records regulations: The Federal rules restrict any use of the information to criminally investigate or prosecute any alcohol or drug abuse patient.[facility] HospitalIn the event this information is protected by the Federal Confidentiality of Alcohol and Drug Abuse Patient Records regulations: The Federal rules restrict any use of the information to criminally investigate or prosecute any alcohol or drug abuse patient.[facility] HospitalIn the event this information is protected by the Federal Confidentiality of Alcohol and Drug Abuse Patient Records regulations: The Federal rules restrict any use of the information to criminally investigate or prosecute any alcohol or drug abuse patient.[facility] HospitalIn the event this information is protected by the Federal Confidentiality of Alcohol and Drug Abuse Patient Records regulations: The Federal rules restrict any use of the information to criminally investigate or prosecute any alcohol or drug abuse patient.[facility] HospitalIn the event this information is protected by the Federal Confidentiality of Alcohol and Drug Abuse Patient Records regulations: The Federal rules restrict any use of the information to criminally investigate or prosecute any alcohol or drug abuse patient.[facility] HospitalIn the event this information is protected by the Federal Confidentiality of Alcohol and Drug Abuse Patient Records regulations: The Federal rules restrict any use of the information to criminally investigate or prosecute any alcohol or drug abuse patient.[facility] HospitalIn the event this information is protected by the Federal Confidentiality of Alcohol and Drug Abuse Patient Records regulations: The Federal rules restrict any use of the information to criminally investigate or prosecute any alcohol or drug abuse patient.[facility] HospitalIn the event this information is protected by the Federal Confidentiality of Alcohol and Drug Abuse Patient Records regulations: The Federal rules restrict any use of the information to criminally investigate or prosecute any alcohol or drug abuse patient.[facility] HospitalIn the event this information is protected by the Federal Confidentiality of Alcohol and Drug Abuse Patient Records regulations: The Federal rules restrict any use of the information to criminally investigate or prosecute any alcohol or drug abuse patient.[facility] HospitalIn the event this information is protected by the Federal Confidentiality of Alcohol and Drug Abuse Patient Records regulations: The Federal rules restrict any use of the information to criminally investigate or prosecute any alcohol or drug abuse patient.[facility] HospitalIn the event this information is protected by the Federal Confidentiality of Alcohol and Drug Abuse Patient Records regulations: The Federal rules restrict any use of the information to criminally investigate or prosecute any alcohol or drug abuse patient.[facility] HospitalIn the event this information is protected by the Federal Confidentiality of Alcohol and Drug Abuse Patient Records regulations: The Federal rules restrict any use of the information to criminally investigate or prosecute any alcohol or drug abuse patient.[facility] HospitalIn the event this information is protected by the Federal Confidentiality of Alcohol and Drug Abuse Patient Records regulations: The Federal rules restrict any use of the information to criminally investigate or prosecute any alcohol or drug abuse patient.[facility] HospitalIn the event this information is protected by the Federal Confidentiality of Alcohol and Drug Abuse Patient Records regulations: The Federal rules restrict any use of the information to criminally investigate or prosecute any alcohol or drug abuse patient.[facility] HospitalIn the event this information is protected by the Federal Confidentiality of Alcohol and Drug Abuse Patient Records regulations: The Federal rules restrict any use of the information to criminally investigate or prosecute any alcohol or drug abuse patient.[facility] HospitalIn the event this information is protected by the Federal Confidentiality of Alcohol and Drug Abuse Patient Records regulations: The Federal rules restrict any use of the information to criminally investigate or prosecute any alcohol or drug abuse patient.[facility] HospitalIn the event this information is protected by the Federal Confidentiality of Alcohol and Drug Abuse Patient Records regulations: The Federal rules restrict any use of the information to criminally investigate or prosecute any alcohol or drug abuse patient.[facility] HospitalIn the event this information is protected by the Federal Confidentiality of Alcohol and Drug Abuse Patient Records regulations: The Federal rules restrict any use of the information to criminally investigate or prosecute any alcohol or drug abuse patient.[facility] HospitalIn the event this information is protected by the Federal Confidentiality of Alcohol and Drug Abuse Patient Records regulations: The Federal rules restrict any use of the information to criminally investigate or prosecute any alcohol or drug abuse patient.[facility] HospitalIn the event this information is protected by the Federal Confidentiality of Alcohol and Drug Abuse Patient Records regulations: The Federal rules restrict any use of the information to criminally investigate or prosecute any alcohol or drug abuse patient.[facility] HospitalIn the event this information is protected by the Federal Confidentiality of Alcohol and Drug Abuse Patient Records regulations: The Federal rules restrict any use of the information to criminally investigate or prosecute any alcohol or drug abuse patient.[facility] HospitalIn the event this information is protected by the Federal Confidentiality of Alcohol and Drug Abuse Patient Records regulations: The Federal rules restrict any use of the information to criminally investigate or prosecute any alcohol or drug abuse patient.[facility] HospitalIn the event this information is protected by the Federal Confidentiality of Alcohol and Drug Abuse Patient Records regulations: The Federal rules restrict any use of the information to criminally investigate or prosecute any alcohol or drug abuse patient.[facility] HospitalIn the event this information is protected by the Federal Confidentiality of Alcohol and Drug Abuse Patient Records regulations: The Federal rules restrict any use of the information to criminally investigate or prosecute any alcohol or drug abuse patient.[facility] HospitalIn the event this information is protected by the Federal Confidentiality of Alcohol and Drug Abuse Patient Records regulations: The Federal rules restrict any use of the information to criminally investigate or prosecute any alcohol or drug abuse patient.[facility] HospitalIn the event this information is protected by the Federal Confidentiality of Alcohol and Drug Abuse Patient Records regulations: The Federal rules restrict any use of the information to criminally investigate or prosecute any alcohol or drug abuse patient.[facility] HospitalIn the event this information is protected by the Federal Confidentiality of Alcohol and Drug Abuse Patient Records regulations: The Federal rules restrict any use of the information to criminally investigate or prosecute any alcohol or drug abuse patient.[facility] HospitalIn the event this information is protected by the Federal Confidentiality of Alcohol and Drug Abuse Patient Records regulations: The Federal rules restrict any use of the information to criminally investigate or prosecute any alcohol or drug abuse patient.[facility] HospitalIn the event this information is protected by the Federal Confidentiality of Alcohol and Drug Abuse Patient Records regulations: The Federal rules restrict any use of the information to criminally investigate or prosecute any alcohol or drug abuse patient.[facility] HospitalIn the event this information is protected by the Federal Confidentiality of Alcohol and Drug Abuse Patient Records regulations: The Federal rules restrict any use of the information to criminally investigate or prosecute any alcohol or drug abuse patient.[facility] HospitalIn the event this information is protected by the Federal Confidentiality of Alcohol and Drug Abuse Patient Records regulations: The Federal rules restrict any use of the information to criminally investigate or prosecute any alcohol or drug abuse patient.[facility] HospitalIn the event this information is protected by the Federal Confidentiality of Alcohol and Drug Abuse Patient Records regulations: The Federal rules restrict any use of the information to criminally investigate or prosecute any alcohol or drug abuse patient.[facility] PRN Active and Recently Administ ered Medications (unrecognized section and content) Medication Order 02/10/2023 02/11/2023 02/12/2023 BUPivacaine (PF) 0.25 % (2.5 mg/mL) injection (SENSORCAINE MPF) (CANCELED) X (OR/PROCEDURE) PRN, Starting on Wed02/12/23 at 1349, Until Wed02/12/23 at 1401, Intraprocedure 1349 (Given - Provid er: Flaco Contreras MD) fentaNYL 50 mcg/mL injection (SUBLIMAZE) (CANCELED) X (OR/PROCEDURE) PRN, Starting on Wed02/12/23 at 1339, Until Wed02/12/23 at 1401, Intraprocedure 1339 (Given - Provid er: Neva Damon RN)1342 (Given - Provider: Neva Damon RN) iohexol IV injection (OMNIPAQUE 300) (CANCELED) X (OR/PROCEDURE) PRN, Starting on Wed02/12/23 at 1349, Until Wed02/12/23 at 1401, Intraprocedure 1349 (Given - Provid er: Flaco Contreras MD) midazolam (PF) injection (VERSED) (CANCELED) X (OR/PROCEDURE) PRN, Starting on Wed02/12/23 at 1339, Until Wed02/12/23 at 1401, Intraprocedure 1332 (Given - Provid er: Neva Damon RN)1339 (Given - Provider: Neva Damon RN) triamcinolone acetonide injection (KeNALog 40) (CANCELED) X (OR/PROCEDURE) PRN, Starting on Wed02/12/23 at 1349, Until Wed02/12/23 at 1401, Intraprocedure 1349 (Given - Provid er: Flaco Contreras MD) FOR RECORDS PERTAINING TO PATIENTS WHO ARE [...] BE BASED ON THE PRIMARY CLINICAL RECORDS. [facility]. provides no warranty or guarantee of the accuracy or completeness of information in this document.
== END | disposition home or self-care (01) ==
LOC: OPMRI 07:19
PROVIDERS: PCP Family Medicine; Referring Provider Student in an Organized Health Care Education/Training Program; Visit Provider Student in an Organized Health Care Education/Training Program
DX: K83.8 Other specified diseases of biliary tract (principal)
CPT/HCPCS: 74181

== ENCOUNTER 2025-07-01 00:38 | Emergency (ER) | payer MEDICAID, SELFPAY ==
[2025-07-01 00:39] VITALS: BP 190/98; PULSE 74; RESP 14; TEMP 36.6; O2SAT 99; BMI 34.2
--- NOTE | 2025-07-01 00:54 | CT_ITS ---
PROCEDURE: ABDOMEN/PELVIS WITHOUT CONT 07/01/2025 REASON FOR EXAM: RIGHT FLANK PAIN TECHNIQUE: ABDOMEN/PELVIS WITHOUT CONT Noncontrast technique limits evaluation of the abdominal and pelvic viscera. Coronal and Sagittal reconstruction series were provided. One or more dose reduction techniques were used (e.g., Automated exposure control, adjustment of the mA and/or kV according to patient size, use of iterative reconstruction technique). RADIATION DOSE SUMMARY: CTDlvol: 15 mGy DLP: 784 mGycm COMPARISON: 04/17/2025 FINDINGS: Dependent atelectasis. Upper limits of normal heart size. Focal dilatation of a right lobe of liver biliary duct is redemonstrated and is been previously assessed with MRI. Status post cholecystectomy. Normal pancreas, spleen, adrenal glands. Bilateral renal calcifications measuring up to 4 mm. On the right, the kidney is swollen with perinephric stranding. There is marked hydronephrosis to the UVJ, no ureteral stone. Unremarkable bladder. Normal uterus and ovaries. No retroperitoneal or pelvic adenopathy. No free air. Nondistended bowel. Normal appendix. No acute large bowel findings. No acute abdominal wall findings. Mild scoliosis. Bilateral femoral head AVN. CT/Abdomen/Pelvis without Cont IMPRESSION: Marked right-sided hydronephrosis, without ureteral stone. Findings suggest a recently passed ureteral stone with residual UVJ spasm/edema. Bilateral nephrolithiasis. Reading Location: [place] [id number]
[2025-07-01] MEDS: 0.9% Normal Saline (1000mL) 1,000 ML 999 ML IV (01:11)
[2025-07-01] MEDS: DiphenhydrAMINE 50 MG/ML Syringe 25 MG IV (01:11)
[2025-07-01 01:18] LABS: Mucous, Urine 0 SEEN /hpf (<or=2+)
[2025-07-01 01:20] LABS: Hematocrit 37.4 % (37-47); Hemoglobin 13.2 g/dL (12.0-15.0); Immature Granulocytes Count 0.280 X10^3/uL (0.0-0.0); Mean Corp Hgb Conc 35.3 g/dL (32-36); Mean Corpuscular Volume 81.1 fL (81-99); Mean Platelet Vol. 9.7 fl (6.2-12.0); NRBC Flagged by Analyzer 0 % (0-5); Platelet Count 222 K/mm3 (150-450); RBC Distribution Width CV 13.5 % (11.6-14.6); RBC Distribution Width SD 39.6 fl (35.1-43.9); Red Blood Count 4.61 M/mm3 (4.2-5.4); White Blood Count 15.0 K/mm3 (4.4-11.0)
[2025-07-01 01:20] LABS: Color, Urine Red (Yellow); Glucose, Dipstick 1000 mg/dl (Normal); Ketone-Dipstick Negative (Negative); Leukocyte Esterase-Dipstick 100 /ul (Negative); Nitrite-Dipstick Negative (Negative); Occult Blood-Urine 250 /ul (Negative); Protein-Dipstick 100 mg/dl (Negative); Specific Gravity, Urine 1.020 (1.002-1.030); Urine Bilirubin Dipstick Negative (Negative)
--- OUTSIDE RECORDS SUMMARY | 2025-07-01 01:21 | XMS RPT_ITS | CCD ---
Author Organization [facility] Care Team Providers Care Meteorology Professor Name Role Phone Nagi Red MD Primary Care Provider Nagi Red MD Unavailable Nagi Red MD Primary Care Provider [phone] Nagi Red MD Primary Care Provider Nagi Red MD Unavailable Nagi Red MD Primary Care Provider [phone] COCO DOCLAIRE Admitting Unavailable COCO DOCLAIRE Attending Unavailable NAGI RED Primary Care Unavailable ANTONIO [phone], AMIRA Lawrence Consulting Unavailable COCO DOCLAIRE Consulting [...] DR SENA Barrett Attending Unavaila ana ALVAREZ [phone], AMIRA Lawrence Consulting Unavailable NAGI RED Consulting Unavailable GORDO HARDY, DR SENA Barrett Admitting Unavaila ana CARO MD, DR SENA Barrett Attending Unavaila ana MAGALLANES MD, CATHI Broussard Consulting Unavailable NAGI RED Primary Care Unavailable NAGI RED Consulting Unavailable COCO DOCLAIRE Consulting Unavailable COCO DOCLAIRE Attending Unavailable NAGI RED Primary Care Unavailable COCO DOCLAIRE Admitting Unavailable KAREN MEEKS Consulting Unavailable RUSTY HARDY, PAOLA Lawrence Consulting Unavailable NAGI RED Consulting Unavailable Daniella HARDY, Nagi Barrett Primary Care Provider Nagi Red MD Unavailable Daniella HARDY, Nagi Barrett Primary Care Provider Nagi Red MD Primary Care Provider Regan VINYL INSTALLER.DRAMATIC ARTS HISTORIAN, Renard Unavailable Christine Dean PA-C Unavailable NAGI RED MD Consulting Unavailable IRAM SARMIENTO Attending Unavailable IRAM SARMIENTO Primary Care Unavailable IRAM SARMIENTO Admitting Unavailable NAGI RED MD Referring Unavailable PROVIDER, UNKNOWN Consulting Unavailable DANIELLA, NAGI A Primary Care Unavailable JUAN DANIEL CONTRERAS Attending Unavailable JUAN DANIEL CONTRERAS Admitting Unavailable DANIELLA, NAGI A Primary Care Unavailable JUAN DANIEL CONTRERAS Attending Unavailable JUAN DANIEL CONTRERAS Admitting Unavailable JUAN DANIEL CONTRERAS Admitting Unavailable DANIELLA, NAGI A Primary Care Unavailable JUAN DANIEL CONTRERAS Attending Unavailable Regan VINYL INSTALLER.DRAMATIC ARTS HISTORIAN, Renard Unavailable Christine Dean PA-C Unavailable SARAH MIRAMONTES Attending Unavailable DANIELLA, NAGI A Referring Unavailable DANIELLA, NAGI A Primary Care Unavailable DANIELLA, NAGI A Primary Care Unavailable JEN ROBERTSON Attending Unavailable DANIELLA, NAGI A Primary Care Unavailable GRETA TEMPLETON Attending Unavailable DANIELLA, NAGI A Primary Care Unavailable GRETA TEMPLETON Attending Unavailable DANIELLA, NAGI A Referring Unavailable DANIELLA, NAGI A Primary Care Unavailable GRETA TEMPLETON Referring Unavailable Daniella, Nagi Referring Unavailable Roselia Arrieta Attending Unavailabl e Daniella, Nagi Primary Care Unavailable Daniella, Nagi Referring Unavailable Taylor Samuel Attending Unavailable Daniella, Nagi Primary Care Unavailable Daniella, Nagi Primary Care Unavailable Daniella, Nagi Referring Unavailable Taylor Samuel Attending Unavailable Daniella, Nagi Primary Care Unavailable Ungur, Remus Referring Unavailable Ungtori Remus Attending Unavailable Daniella, Nagi Referring Unavailable Daniella, Nagi Primary Care Unavailable Alyssa Sanchez Attending Unavailable Daniella, Nagi Referring Unavailable Daniella, Nagi Primary Care Unavailable Alyssa Sanchez Attending Unavailable Daniella, Nagi Primary Care Unavailable Daniella, Nagi Referring Unavailable Taylor Samuel Attending Unavailable Daniella, Nagi Primary Care Unavailable Ludin Adams Attending Unavailable Ludin Adams Attending Unavailable Daniella, Nagi Primary Care Unavailable Taylor Samuel Attending Unavailable Taylor Samuel Referring Unavailable Daniella, Nagi Primary Care Unavailable Taylor Samuel Attending Unavailable Taylor Samuel Referring Unavailable Daniella, Nagi Primary Care Unavailable Taylor Samuel Attending Unavailable Taylor Samuel Referring Unavailable Daniella, Nagi Primary Care Unavailable Daniella, Nagi Primary Care Unavailable Kate Gonzáles Attending Unavailable Kate Gonzáles Referring Unavailable Thaddeus Moya Attending Unavailable Daniella, Nagi Primary Care Unavailable Thaddeus Moya Referring Unavailable Assessment, Health Risk Referring Unavaila ble Assessment, Health Risk Attending Unavaila ble Daniella, Nagi Primary Care Unavailable Daniella, Nagi Primary Care Unavailable Taylor Samuel Referring Unavailable Taylor Samuel Attending Unavailable Taylor Samuel Attending Unavailable Taylor Samuel Referring Unavailable Daniella, Nagi Primary Care Unavailable Daniella, Nagi Primary Care Unavailable Jose Antonio Kee Attending Unavailable Daniella, Nagi Primary Care Unavailable Daniella, Nagi Referring Unavailable Thaddeus Moya Attending Unavailable CARLIE BROWNLEE Attending Unavailable DANIELLA, NAGI [...] Care Unavailable DANIELLA, NAGI A Attending Unavailable SELF Referring Unavailable DANIELLA, NAGI A Primary Care Unavailable DANIELLA, NAGI A Primary Care Unavailable CHRISTINE DEAN Attending Unavailable DANIELLA, NAGI A Primary Care Unavailable DANIELLA, NAGI A Attending Unavailable DANIELLA, NAGI A Primary Care Unavailable CARLIE BROWNLEE Attending Unavailable DANIELLA, NAGI A Primary Care Unavailable DANIELLA, NAGI A Referring Unavailable KNOBLE, RENARD Attending Unavailable ZENY REDREY A Primary Care Unavailable SELF Referring Unavailable CARLIE BROWNLEE Attending Unavailable DANIELLA, NAGI A Primary Care Unavailable RENARD ALMODOVAR Attending Unavailable DANIELLA, NAGI A Primary Care Unavailable CHRISTINE DEAN Referring Unavailable DANIELLA, NAGI A Primary Care Unavailable DANIELLA, NAGI A Primary Care Unavailable DANIELLA, NAGI A Primary Care Unavailable DANIELLA, NAGI A Referring Unavailable DANIELLA, NAGI A Primary Care Unavailable AKI, CAITLYN Attending Unavailable DANIELLA, NAGI A Referring Unavailable DANIELLA, NAGI A Referring Unavailable DANIELLA, NAGI A Primary Care Unavailable AZARYAN, CAITLYN Attending Unavailable DANIELLA, NAGI A Primary Care Unavailable AZARYAN, CAITLYN Referring Unavailable AZAGEOAN CAITLYN Attending Unavailable Allergies Allergy Classification Reported Allergen(s) Allergy Type Date of Onset Reaction(s) Facility Amphetamine / Dextroamphetamine (1 source) Amphetamine / Dextroamphetamine Drug Allergy 020 Palpitations [facility] Amphetamine aspartate / Amphetamine Sulfate / Dextroamphetamine saccharate / Dextroamphetamine Sulfate (4 sources) Amphetamine aspartate / Amphetamine Sulfate / Dextroamphetamine saccharate / Dextroamphetamine Sulfate Drug Allergy 015 Intolerance [facility] Work Phone: Opioid Agonists (5 sources) Morphine Drug Allergy 008 Itching [facility] (6 sources) Amphetamine / Dextroamphetamine Drug Allergy 020 Palpitations [facility] (7 sources) Morphine Drug Allergy 020 Itching [facility] (8 sources) Wound Dressing Adhesive Propensity to adverse reactions to drug 020 Itching [facility] (20 sources) Adhesive agent; Translations: [ADHESIVE] Drug Allergy 010 Rash [facility] Work Phone: (20 sources) Amphetamine aspartate / Amphetamine Sulfate / Dextroamphetamine saccharate / Dextroamphetamine Sulfate; Translations: [DEXTROAMPHETAMINE-A MPHETAMINE] Drug Allergy 015 Intolerance [facility] Work Phone: (20 sources) Morphine; Translations: [MORPHINE SULFATE] Drug Allergy 008 Itching [facility] Work Phone: (20 sources) animals [Other] Propensity to adverse reactions 005 Unknown [facility] Work Phone: (20 sources) Environmental allergies [Other] Propensity to adverse reactions 008 Unknown [facility] Work Phone: (1 source) Amphetamine / Dextroamphetamine Drug Allergy [facility] (1 source) Morphine Drug Allergy [facility] (1 source) Amphetamine / Dextroamphetamine Drug Allergy [facility] (1 source) Morphine Drug Allergy [facility] (1 source) Amphetamine / Dextroamphetamine Drug Allergy 020 Palpitations [facility] (1 source) Adhesive Tape Drug allergy (disorder) 025 [facility] (1 source) Amphetamine Drug Allergy 025 [facility] (1 source) Dextroamphetamine Drug Allergy 025 [facility] (1 source) Morphine Drug Allergy 025 [facility] Medications Current Medications Medication Drug Class(es) Dates Sig (Normalized) Sig (Original) acetaminophen 325 mg / HYDROcodone bitartrate 5 mg oral tablet (2 sources) Opioid Agonist Start: 06-26-2025 End: 07-03-2025 take 1 tablet by mouth every six hours as needed hydroCODone-aceta minophen 5-325 MG tablet Take 1 tablet by mouth every 6 hours as needed. for up to 7 days 06/26/2025 07/03/2025 Active Start: 06-25-2025 End: 06-28-2025 take 1 tablet by mouth every eight hours as needed for pain HYDROcodone-acetaminophen (NORCO) 5-325 mg per tablet Indications: Bilateral nephrolithiasis , Right flank pain Take 1 tablet by mouth every 8 hours as needed for pain for up to 3 days. 6 tablet 06/25/2025 06/28/2025 Active [id number] 200 actuat albuterol 0.09 mg/actuat metered dose inhaler (20 sources) beta2-Adrenergic Agonist Start: 04-11-2019 End: 07-06-2022 take 2 puff(s) by inhalation every six hours as needed for wheezing albuterol HFA (VENTOLIN HFA) 90 mcg/actuation inhaler Inhale 2 Puffs as instructed every 6 hours as needed for wheezing/shortness of breath. 1 Inhaler 2 07/06/2022 Active Comment on above: Inhale 2 Puffs as instructed every 6 flavia rs as needed for Wheezing/Shortness of Breath. amoxicillin 875 mg / clavulanate 125 mg oral tablet (1 source) Penicillin-class Antibacterial Start: 01-05-2025 End: 01-12-2025 take 1 tablet by mouth twice daily amoxicillin-clavulanat e potassium (AUGMENTIN) 875-125 mg per tablet Indications: [...] Comment on above: Take 2 capsules by mouth three times a d ay as needed for up to 10 days. [...] above: Take 1 tablet by liza th twice daily for 7 days. Take 1 capsule by mo uth two times a day for 10 days. etonogestrel 68 mg drug implant (20 sources) Progestin Etonogestrel 68 MG SC implant Inject 1 Each under the skin. Active etonogestrel (NE XPLANON) subdermal implant 68 mg 68 mg by SUBDERMAL route one time only. Active Comment on above: 68 mg by [...] 1 tablet by liza th once daily. ketorolac tromethamine 10 mg oral tablet (15 sources) Nonsteroidal Anti-inflammatory Drug, Cyclooxygenase Inhibitor Start: 06-15-2025 End: 06-15-2025 keTORolac 30 mg injection (Toradol) Start: 06-15-2025 End: 06-15-2025 keTORolac 30 mg injection (T oradol) Start: 06-15-2025 End: 06-15-2025 30 mg, INTRAMUSCULAR, ONCE, 1 dose, On Wed06/15/25 at 1200, Ketorolac (Toradol) is indicated for the short-term (up to 5 days) management of moderately severe acute pain. Continuation of ketorolac (Toradol) beyond 5 days increases the risk of developing serious adverse events. Please verify the duration of therapy for ketorolac (Toradol). Start: 06-07-2025 End: 06-15-2025 take 1 tablet by mouth every six hours as needed keTORolac (TORADOL) 10 mg tablet Indications: Right flank pain Take 1 tablet by mouth every 6 hours as needed. 20 tablet 06/15/2025 1:03 PM EDT 06/15/2025 Active Start: 10-26-2024 End: 10-26-2024 keTORolac 30 mg injection (T oradol) Start: 10-26-2024 End: 10-26-2024 30 mg, INTRAVENOUS, [...] of therapy for ketorolac (Toradol) levothyroxine sodium 0.2 mg oral tablet (20 sources) l-Thyroxine Start: 10-16-2024 take 1 tablet by mouth once daily Levothyroxine 200 MCG tablet Indications: Postsurgical hypothyroidism Take 1 tab by mouth daily 90 tablet 3 10/16/2024 Active Start: 04-29-2023 End: 05-01-2024 Synthroid 25 MCG [...] 1 tablet by liza th once daily Levothyroxine 25 MCG tablet Indications: Postsurgical hypothyroidism Take 1 tab by mouth daily on Wednesday and (on these days take 200 mcg plus 25 mcg for a total of 225 mcg) 24 tablet 3 10/16/2024 Active Start: 04-11-2020 End: 05-01-2024 take 1 [...] 25mcg tab to your daily 200mcg tab) lithium carbonate 300 mg extended release oral [...] 11/02/2024 Active melatonin 10 mg oral tablet (8 sources) Melatonin 10 MG tablet Take by [...] by Nasal route once for 1 dose. [place] into the nose as directed. Call 911. [...] 7 days. 14 capsule 09/29/2024 10/06/2024 Active Zcziv-1-CVH-EPA-Fish Oil (FISH OIL) 1,000 (120-180) mg cap (18 sources) Start: 11-02-2024 take 2 capsules by mouth twice daily Yiewh-8-GYN-EPA-Fish Oil (FISH OIL) 1,000 (120-180) mg cap Indications: Migraine without aura and without status migrainosus, not intractable Take 2 capsules by mouth two times a day. 120 capsule 2 11/02/2024 Active ondansetron 4 mg disintegrating oral tablet (5 sources) Serotonin-3 Receptor Antagonist Start: 06-16-2025 take 1 tablet by mouth every eight hours as needed ondansetron orally disintegrating (ZOFRAN ODT) 4 mg disintegrating tablet Take 1 tablet by mouth every 8 hours as needed for nausea/vomiting. 12 tablet 06/16/2025 Active Start: 06-05-2022 take 1 tablet by liza th every eight hours as needed ondansetron 4 [...] 20 mg oral tablet (1 source) Start: 10-04-20 End: 10-08-20 take 1 tablet by mouth once daily at mealtime predniSONE (DELTASONE) 20 mg tablet Indications: Bronchitis Take 1 tablet by mouth once daily for 4 days. Take daily with food. 4 tablet 0 10/04/2023 10/08/2023 Active Comment on above: Take 1 tablet by liza once daily for 4 days. Take daily with food. promethazine hydrochloride 12.5 mg oral tablet (2 sources) Phenothiazine Start: 06-14-20 take 1 tablet by mouth three times daily as needed for nausea and vomiting Promethazine HCl 12.5 MG tablet TAKE 1 TABLET BY MOUTH THREE TIMES DAILY NEEDED FOR NAUSEA AND VOMITING 06/14/2025 Active Start: 04-18-2025 Promethazine 2 5 MG Suppository suppository INSERT 1 SUPPOSITORY RECTALLY EVERY 6 HOURS NEEDED FOR NAUSEA AND VOMITING 04/18/2025 Active propranolol hydrochloride 20 mg oral tablet (20 sources) beta-Adrenergic Max Start: 10-26-2024 take 1 tablet by mouth once daily [...] oral tablet (20 sources) Atypical Antipsychotic Start: 04-25-20 QUEtiapine 50 MG tablet Take 1 tablet by mouth. 04/25/2024 Active rizatriptan 10 mg oral tablet (20 sources) Serotonin-1b and Serotonin-1d Receptor Agonist Start: 11-04-20 End: 11-02-20 24 rizatriptan 10 MG tablet Take 1 tablet by mouth as needed. 11/04/2019 Active Comment on above: Take 1 tablet by liza as needed. May repeat in 2 hours if needed sennosides, senior care 8.6 mg oral capsule (4 sources) Start: 06-05-20 22 take 1 capsule by mouth twice daily as needed Sennosides (Senna) 8.6 MG capsule Take 1 capsule by mouth 2 times daily as needed. 30 capsule 06/05/2022 Active SUMAtriptan 50 mg oral tablet (20 sources) Serotonin-1b and Serotonin-1d Receptor Agonist Start: 11-02-20 End: 12-15-19 25 take 1 tablet by mouth every two hours as needed for headache SUMAtriptan (IMITREX) 50 mg tablet Indications: Migraine without aura and without status migrainosus, not intractable Take 1 tablet (50 mg) by mouth as needed for migraine headache (see administration instructions). May repeat dose after 2 hours if needed. Maximum daily dose is 200 mg per day. 9 tablet 3 12/15/2024 Active Completed/Discontinued Medications Medication Drug Class(es) Dates [...] oral solution (9 sources) alpha-Adrenergic Agonist, Uncompetitive Q-vyrsso-O-aspartat e Receptor Antagonist, Sigma-1 Agonist Start: 01-07-2024 [...] mg oral tablet (1 source) Corticosteroid Start: End: Dexamethasone 1 MG tablet Take po at [...] mg oral tablet (20 sources) Antihistamine Start: 018 End: take 1 tablet by mouth every eight hours as needed for anxiety hydrOXYzine HCl (ATARAX) 25 mg tablet Indications: Anxiety, generalized Take 1 tablet by mouth every 8 hours as needed for Anxiety. 30 tablet 1 12/02/2017 04/25/2024 Discontinued Comment on above: Take 1 tablet by liza every 8 hours as needed for Anxiety. [...] in the CT contrast administration guidelines link. omeprazole 20 mg delayed release oral capsule (20 sources) Proton Pump Inhibitor Start: 2020 End: 2022 take 2 capsules by mouth once daily omeprazole (PRILOSEC) 20 mg capsule Indications: Nausea and vomiting, intractability of vomiting not specified, unspecified vomiting type , LUQ pain Take 2 capsules by mouth once daily. 60 capsule 2 10/28/2021 02/12/2023 Discontinued Comment on above: Take 2 capsules by [facility] once daily. oxyCODONE hydrochloride 5 mg oral tablet (3 sources) Opioid Agonist Start: 2021 End: 2023 take 1 tablet by mouth every four hours as needed oxyCODONE 5 MG tablet Indications: Papillary thyroid carcinoma , Sialadenitis Take 1 tablet by mouth every 4 hours as needed for up to 7 days. 8 tablet 06/05/2022 05/01/2024 Discontinued (Therapy completed) polyethylene glycol 3350 [id number] mg / potassium chloride 2970 mg / sodium bicarbonate 6740 mg / sodium chloride 5860 mg / sodium sulfate 07784 mg powder for oral solution (7 sources) [...] Comment on above: Take 1 tablet by [facility] every 8 hours as needed. riboflavin 400 mg oral tablet (20 sources) Start: 2023 End: 2024 take 1 tablet by mouth once daily riboflavin, vitamin B2, 400 mg tab Indications: Migraine without aura and without status migrainosus, not intractable Take 1 tablet by mouth once daily. 90 tablet 11/02/2024 06/25/2025 Discontinued (Course of therapy completed) 10 ml sodium chloride 9 mg/ml injection [...] STOMACH 0 12/23/2021 09/16/2022 Discontinued (Therapy completed) traMADol hydrochloride 50 mg oral tablet (20 sources) Opioid Agonist Start: 2024 End: 2024 take 1-2 tablets by mouth once daily as needed for pain traMADol (ULTRAM) 50 mg tablet Indications: SI (sacroiliac) joint dysfunction Take 1-2 pills by mouth once a day for pain, prn 45 tablet 06/12/2025 06/25/2025 Discontinued Start: 03-08-2025 End: 04-01-2025 traMADol (ULTRAM) 50 [...] 30 tablet 2 09/13/2023 10/13/2023 Active Start: 08-26-2020 End: 06-25-2025 take 1 tablet by mouth once daily as needed traMADol (ULTRAM) 50 mg tablet Indications: SI (sacroiliac) joint dysfunction , Lumbar degenerative disc disease Take 1 tablet by mouth once daily as needed for up to 30 days. 30 tablet 2 06/08/2023 07/08/2023 End: 09-18-2024 take 1 tablet by mouth every six hours as needed traMADol (ULTRAM) 50 mg tablet Take 50 mg by mouth every 6 hours as needed for pain. 09/18/2024 Discontinued Comment on above: Take 1 tablet by liza th once daily as needed for up to 30 days. Take 50 mg by mouth every 6 hours as needed for pain. traZODone hydrochloride 150 mg oral tablet (20 sources) Serotonin Reuptake Inhibitor End: 4 take 2 tablets by mouth once daily at bedtime traZODone (DESYREL) 150 mg tablet Take 300 mg by mouth daily at bedtime. 02/12/2023 Discontinued Comment on above: Take 300 mg by mouth daily at bedtime. 24 hr divalproex sodium 500 mg extended release oral tablet (20 sources) Mood Stabilizer, Anti-epileptic Agent Start: 9 End: 3 take 3 tablets by mouth once daily at bedtime divalproex ER (DEPAKOTE ER) 500 mg 24 hr tablet Take 3 tablets by mouth daily at bedtime. [facility] Daniel 11/04/2019 02/12/2023 Discontinued Start: 11-04-2019 End: 05-01-2024 divalproex 500 MG tablet ER Take 1,500 mg by mouth. 11/04/2019 05/01/2024 Discontinued (Therapy completed) Comment on above: Take 3 tablets by [facility] daily at bedtime. [facility] Juan Daniel ziprasidone 40 mg oral capsule (18 sources) Atypical Antipsychotic End: 09-16-20 take 1 capsule by mouth twice daily at mealtime ziprasidone (GEODON) 40 mg capsule Take 40 mg by mouth twice daily with meals. 07/06/2022 Discontinued Comment on above: Take 40 mg by mouth twice daily with meals. Problems Active Problems Problem Classification Problem Date Documented Da te Episodic/Chronic Abdominal pain (20 sources) Pelvic and perineal pain; Translations: [Unspecified abdominal pain] Onset: 12-22-2021 Episodic Anxiety disorders (20 sources) Generalized anxiety disorder; Translations: [Generalized anxiety disorder] Onset: 03-31-2012 11-17-2021 Chronic Asthma (20 sources) Exercise-induced asthma; Translations: [Exercise induced bronchospasm] Onset: 03-22-2014 03-22-2014 Chronic Biliary tract disease (1 source) Other specified diseases of biliary tract; Translations: [Other specified diseases of biliary tract] Onset: 05-01-2025 Chronic Cancer of thyroid (20 sources) Malignant [...] [Melena] Episodic Genitourinary symptoms and ill-defined conditions (7 sources) Dysuria; Translations: [Dysuria] Onset: 05-08-2025 09-29-2024 Episodic Headache; including migraine (20 sources) Migraine without aura, not refractory ; Translations: [Migraine without aura, not intractable, without status migrainosus] Onset: 05-20-2017 05-20-2017 Chronic Headache; including migraine (4 sources) Headache; Translations: [Headache, unspecified headache type] 10-18-2024 Episodic Headache; including migraine (3 sources) Headache; including migraine; Translations: [Headache, unspecified] Onset: 10-26-2024 Influenza (1 source) Influenza; Translations: [...] Onset: 02-14-2018 03-22-2018 Chronic Nausea and vomiting (13 sources) Nausea and vomiting; Translations: [Nausea with vomiting, unspecified] Onset: 04-23-2025 Episodic Neoplasms of unspecified nature or uncertain behavior (2 sources) Neoplasm of uncertain behavior of skin of back; Translations: [Neoplasm of uncertain behavior of skin] 03-25-2024 Episodic Nutritional deficiencies (20 sources) Vitamin D deficiency; Translations: [Vitamin D deficiency, unspecified] Onset: 03-22-2014 05-07-2014 Chronic Other aftercare (2 sources) Encounter for follow-up examination after completed treatment for conditions other than malignant neoplasm; Translations: [Encounter for follow-up examination after completed treatment for conditions other than malignant neoplasm] Onset: 06-27-2025 Episodic Other circulatory disease (1 source) Elevated blood-pressure reading without diagnosis of hypertension; Translations: [Elevated blood-pressure reading, without diagnosis of hypertension] 05-08-2025 Episodic Other circulatory disease (1 source) Elevated blood-pressure reading, without diagnosis of hypertension; Translations: [Elevated blood pressure reading without diagnosis of hypertension] Onset: 05-08-2025 Episodic Other connective tissue disease (2 sources) Pain of left lower leg; Translations: [Pain in left lower leg] 05-12-2024 Episodic Other connective tissue disease (1 source) Cramp in lower limb; Translations: [Cramp and spasm] 09-21-2024 Episodic Other ear and sense organ disorders [...] infection] 10-04-2023 Episodic Other lower respiratory disease (6 sources) Dyspnea; Translations: [Shortness of breath] 04-25-2024 Episodic Other lower respiratory disease (1 source) Shortness of breath; Translations: [SOB (shortness of breath)] Onset: 05-08-2025 Episodic Other nervous system disorders (2 sources) Carpal tunnel syndrome, right upper limb; Translations: [Carpal tunnel syndrome, right upper limb] Onset: 05-21-2025 Chronic Other nervous system disorders (1 source) Other chronic pain; Translations: [Other chronic pain] Onset: 02-08-2025 Chronic Other non-traumatic joint disorders (1 source) Sacroiliac disorder 06-12-2025 Episodic Other nutritional; endocrine; and metabolic disorders (20 sources) Intolerance to lactose; Translations: [Lactose intolerance, unspecified] Onset: 03-31-2012 11-17-2021 Chronic Other nutritional; endocrine; and metabolic disorders (20 sources) Obese class I; Translations: [Obesity, unspecified] Onset: 09-16-2022 09-16-2022 Chronic Other nutritional; endocrine; and metabolic disorders (1 source) Weight gain; Translations: [Abnormal weight gain] Episodic Other screening for suspected conditions (not mental disorders or infectious disease) (20 sources) Patient encounter status; Translations: [Encounter for screening for lipoid disorders] Onset: 08-10-2014 Resolved: 07-27-2019 Episodic Other upper respiratory infections (2 sources) Bacterial sinusitis; Translations: [Chronic sinusitis, unspecified] Chronic Other upper respiratory infections (3 sources) Sore throat symptom; Translations: [Acute pharyngitis, unspecified] 10-04-2023 Episodic Ovarian cyst (2 sources) Unspecified ovarian cyst, right side; Translations: [Follicular cyst of left ovary] Onset: 09-14-2022 Episodic Pleurisy; pneumothorax; pulmonary collapse (3 sources) Bilateral pleural effusion; Translations: [Pleural effusion, not elsewhere classified] Onset: 05-02-2025 05-01-2025 Episodic Residual codes; unclassified (1 source) Past history of procedure; Translations: [Other specified postprocedural states] 06-15-2025 Episodic Residual codes; unclassified (1 source) Other specified postprocedural states; Translations: [History of ureteroscopy] Onset: 06-19-2025 Episodic Residual codes; unclassified (1 source) Procedure and treatment not carried out due to patient leaving prior to being seen by health care provider; Translations: [Patient left before evaluation by physician] Onset: 05-07-2025 Episodic Spondylosis; intervertebral disc disorders; other back problems (20 sources) Degeneration of lumbar intervertebral disc; Translations: [Other intervertebral disc degeneration, lumbar region] Onset: 07-27-2012 03-22-2014 Chronic Unclassified (2 sources) COUGH, UNSPECIFIED; Translations: [COUGH, UNSPECIFIED] Onset: 11-19-2021 Unclassified (1 source) Cyclical vomiting syndrome unrelated to migraine; Translations: [Vomiting, persistent, in adult] Onset: 03-03-2023 Unclassified (1 source) Degeneration of intervertebral disc of lumbar region with discogenic back pain; Translations: [Degeneration of intervertebral disc of lumbar region with discogenic back pain] Onset: 03-22-2014 Viral infection (1 source) COVID-19; Translations: [COVID-19] [...] examination related to employment] Onset: 09-21-2024 Episodic Calculus of urinary tract (20 sources) Kidney [...] 08-20-2008 Resolved: 04-25-2024 03-22-2014 Chronic Mood disorders (7 sources) Mood disorders Onset: 03-18-2022 Resolved: 06-27-2025 03-18-2022 Other and unspecified benign neoplasm (20 sources) Dermatofibroma; Translations: [Other benign neoplasm of skin, unspecified] Onset: 06-20-2024 06-20-2024 Episodic Other connective tissue disease (20 sources) Fibromyalgia; Translations: [Fibromyalgia] Onset: 05-07-2014 Resolved: 07-27-2019 07-27-2019 Episodic Other connective tissue disease (1 source) Cramp and spasm; Translations: [Leg cramps] Onset: 09-21-2024 Episodic Other disorders of stomach and duodenum (20 sources) Persistent vomiting; Translations: [Cyclical vomiting syndrome unrelated to migraine] Onset: 03-03-2023 Episodic Other disorders of stomach and duodenum (20 sources) Gastroparesis syndrome; Translations: [Gastroparesis] Onset: 03-25-2024 03-25-2024 Episodic Other disorders of stomach and duodenum (2 sources) Gastroparesis; Translations: [Gastroparesis] Onset: 03-25-2024 Episodic Other lower respiratory disease (6 sources) Cough; Translations: [Cough, unspecified] Onset: 11-15-2021 03-25-2022 Episodic Other nervous system disorders (20 sources) Disturbance of attention; Translations: [Attention and concentration deficit] Onset: 03-19-2015 Resolved: 07-27-2019 07-27-2019 Chronic Spondylosis; intervertebral disc disorders; other back problems (20 sources) Low back pain; Translations: [Lumbago] Onset: 06-19-2008 Resolved: 04-25-2024 11-17-2021 Episodic Thyroid disorders (20 sources) Multinodular goiter; Translations: [Nontoxic multinodular goiter] Onset: 06-04-2014 Resolved: 05-04-2024 11-17-2021 Chronic Unclassified (1 source) COUGH, UNSPECIFIED; Translations: [COUGH, UNSPECIFIED] Onset: 11-15-2021 Viral infection (8 sources) Disease caused by 2019-nCoV; Translations: [COVID-19] Onset: 11-19-2021 03-25-2022 Episodic Results Test Name Value Interpretation Reference Range Facility CNOV 06-28-2025 CNOV Office Visit (FAMPWS ) GRETA ANDRES ([id number]) 1990 F Date Time Provider Department 06/28/25 11:00 AM NAGI RED During your visit today, we recorded the following information about you: Pulse Respiration Blood pressure Weight 76/minute 16/minute 134/88 89 kg Nagi Red MD 06/28/2025 11:25 AM Signed Chief Complaint Patient presents with: Hypertension HPI Greta Andres is a 35 year old female who presents here today for a BP follow up. Pt spoke with office on 06/25/25 regarding elevated BP readings she's been obtaining at home and through office visits. Unsure if BP is elevated due to increased pain at present time. Is scheduled to have Cystoscopy on 06/29/25 and was advised by Surgeon to have BP checked by Primary Care. After reviewing phone note, patient's Propranolol 20 mg was increased to twice a day in addition to HCTZ 25 mg once daily. Is checking BP at home, denies much change in her BP readings. Yesterday at in [place] it was 159/95. Supposed to hear back from regarding her Thyroid results and dosage from Dr. Caitlyn Rivera, Division of Endo at [facility]. Greta Andres is a 35-year-old female with a history of papillary thyroid carcinoma, nephrolithiasis, and gastroparesis, presenting for follow-up on recent oncology visit and management of hypertension. Greta reports a recent oncology visit where she was informed that her condition is stable, with no growth observed. She is awaiting results of TSH levels and potential adjustments to her thyroid medication. She has a history of papillary thyroid carcinoma. She is scheduled for surgery tomorrow to address nephrolithiasis, with 2-3 procedures planned this month. She reports significant pain associated with the kidney stones, which she believes is contributing to elevated blood pressure readings. Yesterday, her blood pressure was recorded at 159/95 mmHg during her oncology visit. She recalls a recent ER visit approximately 2 weeks ago, where her blood pressure was 215/120 mmHg, and she was experiencing severe pain. She is currently taking propranolol 20 BID without side effects. Greta also inquires about a referral to a specialist at the [facility] for gastroparesis management. She has previously undergone 2-hour and 4-hour gastric emptying studies, with the 4-hour study conducted this summer. Past medical history, appointments, medications, allergies reviewed. 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 No surgical correction done. The father of the baby's brother born with a hole in his heart. Surgical correction was done. 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HCC) Degenerative disc disease Disorders of sacrum 02/20/2013 Dysmenorrhea 04/11/2007 Exercise-induced asthma (HCC) 03/22/2014 Fetus conceived on control 03/31/2012 She [...] total thyroidectomy 07/31/2019 Sacroiliitis, not elsewhere classified 02/20/2013 SI (sacroiliac) joint dysfun (more content not included)... Normal [facility] THYROGLOBULIN&THYROGLOBULIN ABon 06-27-2025 Thyroglobulin Antibody <1.8 Normal <1.8 [facility] Comment on above: Performed By: #### T HYBAT #### [facility] (DEFAULT) [address] [place] [address] Thyroglobulin Interpretation SEE COMMENTS Normal [facility] Comment on above: Result Comment: Thyr oglobulin (Tg) reference intervals are for patients with an intact thyroid and not for patients who have had surgery for thyroid cancer. Tg reference intervals in patients that have undergone thyroidectomy or any treatment for follicular thyroid cancer are dependent on the residual mass of the thyroid tissue after surgery. Tg results, regardless of concentration, should not be interpreted as absolute evidence for the presence or absence of papillary or follicular thyroid cancer. This result needs to be interpreted in the context of the clinical evaluation. ADDITIONAL INFORMATION PLEASE NOTE: The given cutoff of <1.8 IU/mL is for the detection of potential thyroglobulin antibody (TgAb) interference in thyroglobulin immunoassays. A thyroglobulin antibody (TgAb) reference cutoff of <4.0 IU/mL may be more suitable for the evaluation of autoimmune thyroiditis. The thyroglobulin and thyroglobulin antibody testing methods are immunoenzymatic assays manufactured by [employer] and performed on the [employer] DXI 800. Values obtained from different assay methods or kits may be different and cannot be used interchangeably. The results cannot be interpreted as absolute evidence for the presence or absence of malignant disease. Test Performed by: [place] [place] [address] Trail Construction Worker: Tennille Mejia Ph.D.; CLIA# [id number] Performed By: #### T HYBAT #### [facility] (DEFAULT) [address] [address] Thyroglobulin, Tumor Marker <0.1 Normal < or = 33 [facility] Comment on above: Performed By: #### T HYBAT #### [facility] (DEFAULT) [address] [place] [address] TSHon 06-27-2025 TSH 2.099 uIU/mL Normal 0.550-4.780 [facility] Comment on above: Performed By: #### T SH #### [facility] (DEFAULT) [address] [address] CNPSara 06-26-2025 CNPN Telephone (Lateral SVCandido) GRETA [id number]) 1990 F Date Time Provider Department 06/26/25 GRETA TEMPLETON During your visit today, we recorded the following information about you: Greta Templeton DO 06/26/2025 1:49 PM Signed Please call [facility] to see why the Girard I prescribed was canceled 06/25/25 , I prescribed at ~5pm, canceled ~715 before I even arrived in office. I did not cancel this prescription, so I am unsure why the pharmacy canceled it DO Bert Walker Ashley, MA 06/26/2025 2:04 PM Signed Looks like Georges Hardin CX the script this morning but Im not sure why Gem Noel MA Allergies As of Date: 06/26/2025 Noted Allergy Reaction ADHESIVE 02/12/2010 2 - Rash MORPHINE SULFATE 11/12/2008 9 - Itching Comments: had vicodin at same time, but has taken vicodin in past without reaction ADDERALL (DEXTROAMPHETAMINE-AMPHE* 5 - Intolerance Comments: Heart racing, chest pain, diaphoretic, dizzy Date Reviewed: 06/19/2025 Reviewed by: Caro Dominguez - Fully Assessed Prescriptions as of 06/26/2025 - traMADol (ULTRAM) 50 mg tablet Take 50 mg by mouth two times a day as needed for pain. Patient filled 06/12/2025 PDMP - ondansetron orally disintegrating (ZOFRAN ODT) 4 mg disintegrating tablet Take 1 tablet by mouth every 8 hours as needed for nausea/vomiting. - keTORolac (TORADOL) 10 mg tablet Take 1 tablet by mouth every 6 hours as needed. - SUMAtriptan (IMITREX) 50 mg tablet Take 1 tablet (50 mg) by mouth as needed for migraine headache (see administration instructions). May repeat dose after 2 hours if needed. Maximum daily dose is 200 mg per day. - magnesium glycinate 100 mg magnesium capsule Take 2 capsules by mouth two times a day. - hydroCHLOROthiazide 25 mg tablet Take 1 [...] time only. Problem List As Of Date 06/26/2025 Noted Resolved Irregular menstrual cycle [N92.6] 04/11/2007 [...] [Z01.41*04/25/2024 Dermatofibroma [D23.9] 06/20/2024 Encounter Status:Closed by GRETA TEMPLETON on 06/26/25 [facility] ([id number]) 1990 F Date Time Provider Department 06/25/25 GRETA TEMPLETON UROUPD During your visit today, we recorded the following information about you: Greta Templeton DO 06/25/2025 11:32 AM Signed Please call the patient to talk to her to discuss that there isn't really anything stronger than Tramadol unfortunately. Looking back through records even in ER they gave Toradol or Tramadol . Opiods like Oxycodone are less recommended as they can worsen her gastroparesis , but can you ask to see how she did with Girard in the past and let me know DO Dipesh Walker Caterinaictlaly 06/25/2025 4:30 PM Signed Spoke to pt and she voiced her understanding, she did state if she remembers correctly she is fine with Girard. Greta Templeton DO 06/25/2025 5:16 PM Signed Stop Tramadol sending Rx Girard DO Roya Walker Brittany, DO 06/25/2025 5:16 PM Signed Addended by: GRETA TEMPLETON on: 06/25/2025 05:16 PM Modules accepted: Penelope Arevalo 06/26/2025 9:00 AM Signed Pt advised and verbalized understanding. LOREN Spicer Allergies As of Date: 06/25/2025 Noted Allergy Reaction ADHESIVE 02/12/2010 2 - Rash MORPHINE SULFATE 11/12/2008 9 - Itching Comments: had vicodin at same time, but has taken vicodin in past without reaction ADDERALL (DEXTROAMPHETAMINE-AMPHE* 5 - Intolerance Comments: Heart racing, chest pain, diaphoretic, dizzy Date Reviewed: 06/19/2025 Reviewed by: Caro Dominguez - Fully Assessed Primary Visit Diagnosis:Bilateral nephrolithiasis [N20.0] Other Visit Diagnosis:Right flank pain [R10.9] Prescriptions as of 06/26/2025 - traMADol (ULTRAM) 50 mg tablet Take 50 mg by mouth two times a day as needed for pain. Patient filled 06/12/2025 PDMP - ondansetron orally disintegrating (ZOFRAN ODT) 4 mg disintegrating tablet Take 1 tablet by mouth every 8 hours as needed for nausea/vomiting. - keTORolac (TORADOL) 10 mg tablet Take 1 tablet by mouth every 6 hours as needed. - SUMAtriptan (IMITREX) 50 mg tablet Take 1 tablet (50 mg) by mouth as needed for migraine headache (see administration instructions). May repeat dose after 2 hours if needed. Maximum daily dose is 200 mg per day. - magnesium glycinate 100 mg magnesium capsule Take 2 capsules by mouth two times a day. - hydroCHLOROthiazide 25 mg tablet Take 1 [...] time only. Problem List As Of Date 06/25/2025 Noted Resolved Irregular menstrual cycle [N92.6] 04/11/2007 [...] Post-surgical hypothyroidism [E89.0] 08/25/2019 Hypertension, essential [I10] 06/22 (more content not included)... [facility] ([id number]) 1990 F Date Time Provider Department 06/25/25 [facility] your visit today, we recorded the following information about you: Phil Millan MA 06/25/2025 3:20 PM Signed Call to pt today and she states she's scheduled for Surgery this 06/29/25 for cystoscopy. Was seen in ED on 06/16/25 with abdominal pain and reports elevated BP of 212/120. BP did eventually come down. Has since seen Urology on 06/19/25, BP elevated at that time as well. Per patient they advised to discuss with PCP. Pt has been checking BP at home with readings 160-170/110. No pre-op appt completed just did PAT testing over the phone, so appt scheduled on 06/28/25 for 40 min with PCP. Pt currently taking two BP meds - HCTZ 25 mg once daily and Propranolol 20 mg once daily. Feels BP is elevated due to her increased pain. cloudswavehart message sent into Urology about this, she currently takes Tramadol and Toradol for pain. Pt originally wanted to know what she should do as she feels this is pain related. I did advise pt an appt is needed to discuss. Pt asked for appt on , due to being responsible for other family members appt's. KAUSHAL Armendariz Jeffrey A, MD 06/25/2025 4:24 PM Signed Advise patient I want her to increase her propanol to 20 mg twice a day till I see her on 06/28/2025. Phil Millan MA 06/25/2025 4:26 PM Signed Called and left message on patients voicemail to return call to the office and ask to speak with a triage nurse. KAUSHAL Armendariz Beth, LPN 06/26/2025 10:38 AM Signed Patient returned call and went over notes from Dr Red with understanding. Allergies As of Date: 06/25/2025 Noted Allergy Reaction ADHESIVE 02/12/2010 2 - Rash MORPHINE SULFATE 11/12/2008 9 - Itching Comments: had vicodin at same time, but has taken vicodin in past without reaction ADDERALL (DEXTROAMPHETAMINE-AMPHE* 5 - Intolerance Comments: Heart racing, chest pain, diaphoretic, dizzy Date Reviewed: 06/19/2025 Reviewed by: Caro Dominguez - Fully Assessed Reason for Visit: Blood Pressure [15] Prescriptions as of 06/26/2025 - traMADol (ULTRAM) 50 mg tablet Take 50 mg by mouth two times a day as needed for pain. Patient filled 06/12/2025 PDMP - ondansetron orally disintegrating (ZOFRAN ODT) 4 mg disintegrating tablet Take 1 tablet by mouth every 8 hours as needed for nausea/vomiting. - keTORolac (TORADOL) 10 mg tablet Take 1 tablet by mouth every 6 hours as needed. - SUMAtriptan (IMITREX) 50 mg tablet Take 1 tablet (50 mg) by mouth as needed for migraine headache (see administration instructions). May repeat dose after 2 hours if needed. Maximum daily dose is 200 mg per day. - magnesium glycinate 100 mg magnesium capsule Take 2 capsules by mouth two times a day. - hydroCHLOROthiazide 25 mg tablet Take 1 [...] time only. Problem List As Of Date 06/25/2025 Noted Resolved Irregular menstrual cycle [N92.6] 04/11/2007 [...] Chronic fatigue disorder [G93.32] 03/19/2015 Attention and concen (more content not included)... Normal [facility] CBC W Auto Differential pane l (Bld)on 06-16-2025 Basophils (Bld) [#/Vol] 0.05 10*3/uL Normal <0.11 [facility] Comment on above: Order Comment: Speci men Type: BLOOD SPECIMEN Ordering Facility: [facility] Address: [address] [place] [address] Performed By: #### 5 7021-8 #### [facility] CLIA [id number] [address] [place] [address] [place] Basophils/100 WBC (Bld) 0.4 % Normal [facility] Comment on above: Order Comment: Speci men Type: BLOOD SPECIMEN Ordering Facility: [facility] Address: [address] [place] [address] Performed By: #### 5 7021-8 #### [facility] CLIA [id number] [address] [place] [address] [place] Differential cell count method Nom (Bld) Auto Normal [facility] Comment on above: Order Comment: Speci men Type: BLOOD SPECIMEN Ordering Facility: [facility] Address: [address] [place] [address] Performed By: #### 5 7021-8 #### [facility] CLIA [id number] [address] [place] [address] [place] Eosinophils (Bld) [#/Vol] 0.25 10*3/uL Normal <0.46 [facility] Comment on above: Order Comment: Speci men Type: BLOOD SPECIMEN Ordering Facility: [facility] Address: [address] [place] [address] Performed By: #### 5 7021-8 #### [facility] CLIA [id number] [address] [place] [address] [place] Eosinophils/100 WBC (Bld) 1.9 % Normal [facility] Comment on above: Order Comment: Speci men Type: BLOOD SPECIMEN Ordering Facility: [facility] Address: [address] [place] [address] Performed By: #### 5 7021-8 #### [facility] CLIA [id number] [address] [place] [address] [place] Erythrocyte distribution width (RBC) [Ratio] 13.7 % Normal 11.5-15.0 [facility] Comment on above: Order Comment: Speci men Type: BLOOD SPECIMEN Ordering Facility: [facility] Address: [address] [place] [address] Performed By: #### 5 7021-8 #### [facility] CLIA [id number] [address] [place] [address] [place] Hematocrit (Bld) [Volume fraction] 37.8 % Normal 36.0-46.0 [facility] Comment on above: Order Comment: Speci men Type: BLOOD SPECIMEN Ordering Facility: [facility] Address: [address] [place] [address] Performed By: #### 5 7021-8 #### [facility] CLIA [id number] [address] [place] [address] [place] Hemoglobin (Bld) [Mass/Vol] 13.0 g/dL Normal 11.5-15.5 [facility] Comment on above: Order Comment: Speci men Type: BLOOD SPECIMEN Ordering Facility: [facility] Address: [address] [place] [address] Performed By: #### 5 7021-8 #### [facility] CLIA [id number] [address] [place] [address] [place] Immature granulocytes (Bld) [#/Vol] 0.18 10*3/uL High <0.10 [facility] Comment on above: Order Comment: Speci men Type: BLOOD SPECIMEN Ordering Facility: [facility] Address: [address] [place] [address] Performed By: #### 5 7021-8 #### [facility] CLIA [id number] [address] [place] [address] [place] Immature granulocytes/100 WBC (Bld) 1.4 % Normal [facility] Comment on above: Order Comment: Speci men Type: BLOOD SPECIMEN Ordering Facility: [facility] Address: [address] [place] [address] Performed By: #### 5 7021-8 #### [facility] CLIA [id number] [address] [place] [address] [place] Lymphocytes (Bld) [#/Vol] 3.12 10*3/uL Normal 1.00-4.00 [facility] Comment on above: Order Comment: Speci men Type: BLOOD SPECIMEN Ordering Facility: [facility] Address: [address] [place] [address] Performed By: #### 5 7021-8 #### [facility] CLIA [id number] [address] [place] [address] [place] Lymphocytes/100 WBC (Bld) 23.9 % Normal [facility] Comment on above: Order Comment: Speci men Type: BLOOD SPECIMEN Ordering Facility: [facility] Address: [address] [place] [address] Performed By: #### 5 7021-8 #### [facility] CLIA [id number] [address] [place] [address] [place] MCH (RBC) [Entitic mass] 28.3 pg Normal 26.0-34.0 [facility] Comment on above: Order Comment: Speci men Type: BLOOD SPECIMEN Ordering Facility: [facility] Address: [address] [place] [address] Performed By: #### 5 7021-8 #### [facility] CLIA [id number] [address] [place] [address] [place] MCHC (RBC) [Mass/Vol] 34.4 g/dL Normal 30.5-36.0 [facility] Comment on above: Order Comment: Speci men Type: BLOOD SPECIMEN Ordering Facility: [facility] Address: [address] [place] [address] Performed By: #### 5 7021-8 #### [facility] CLIA [id number] [address] [place] [address] [place] MCV (RBC) [Entitic vol] 82.4 fL Normal 80.0-100.0 [facility] Comment on above: Order Comment: Speci men Type: BLOOD SPECIMEN Ordering Facility: [facility] Address: [address] [place] [address] Performed By: #### 5 7021-8 #### [facility] CLIA [id number] [address] [place] [address] [place] Monocytes (Bld) [#/Vol] 0.85 10*3/uL Normal <0.87 [facility] Comment on above: Order Comment: Speci men Type: BLOOD SPECIMEN Ordering Facility: [facility] Address: [address] [place] [address] Performed By: #### 5 7021-8 #### [facility] CLIA [id number] [address] [place] [address] [place] Monocytes/100 WBC (Bld) 6.5 % Normal [facility] Comment on above: Order Comment: Speci men Type: BLOOD SPECIMEN Ordering Facility: [facility] Address: [address] [place] [address] Performed By: #### 5 7021-8 #### [facility] CLIA [id number] [address] [place] [address] [place] Neutrophils (Bld) [#/Vol] 8.61 10*3/uL High 1.45-7.50 [facility] Comment on above: Order Comment: Speci men Type: BLOOD SPECIMEN Ordering Facility: [facility] Address: [address] [place] [address] Performed By: #### 5 7021-8 #### [facility] CLIA [id number] [address] [place] [address] [place] Neutrophils/100 WBC (Bld) 65.9 % Normal [facility] Comment on above: Order Comment: Speci men Type: BLOOD SPECIMEN Ordering Facility: [facility] Address: [address] [place] [address] Performed By: #### 5 7021-8 #### [facility] CLIA [id number] [address] [place] [address] [place] Nucleated RBC (Bld) [#/Vol] 10*3/uL Normal <0.01 [facility] Comment on above: Order Comment: Speci men Type: BLOOD SPECIMEN Ordering Facility: [facility] Address: [address] [place] [address] Performed By: #### 5 7021-8 #### [facility] CLIA [id number] [address] [place] [address] [place] Nucleated RBC/100 WBC (Bld) [Ratio] 0.0 /100 WBC Normal [facility] Comment on above: Order Comment: Speci men Type: BLOOD SPECIMEN Ordering Facility: [facility] Address: [address] [place] [address] Performed By: #### 5 7021-8 #### [facility] CLIA [id number] [address] [place] [address] [place] Platelet mean volume (Bld) [Entitic vol] 10.1 fL Normal 9.0-12.7 [facility] Comment on above: Order Comment: Speci men Type: BLOOD SPECIMEN Ordering Facility: [facility] Address: [address] [place] [address] Performed By: #### 5 7021-8 #### [facility] CLIA [id number] [address] [place] [address] [place] [facility] [place] Platelets (Bld) [#/Vol] 239 10*3/uL Normal 150-400 [facility] Comment on above: Order Comment: Speci men Type: BLOOD SPECIMEN Ordering Facility: [facility] Address: [address] [place] [address] Performed By: #### 5 7021-8 #### [facility] CLIA [id number] [address] [place] [address] [place] RBC (Bld) [#/Vol] 4.59 10*6/uL Normal 3.90-5.20 [facility] Comment on above: Order Comment: Speci men Type: BLOOD SPECIMEN Ordering Facility: [facility] Address: [address] [place] [address] Performed By: #### 5 7021-8 #### [facility] CLIA [id number] [address] [place] [address] [place] WBC (Bld) [#/Vol] 13.06 10*3/uL High 3.70-11.00 [facility] Comment on above: Order Comment: Speci men Type: BLOOD SPECIMEN Ordering Facility[facility] Address: [address] [place] [address] Performed By: #### 5 7021-8 #### [facility] CLIA [id number] [address] [place] [address] [place] Comprehensive metabolic 2000 panelon 06-16-2025 Albumin [Mass/Vol] 4.2 g/dL Normal 3.9-4.9 [facility] Comment on above: Order Comment: Speci men Type: BLOOD SPECIMEN Ordering Facility: [facility] Address: [address] [place] [address] Performed By: #### 2 4323-8 #### [facility] CLIA [id number] [address] [place] [address] [place] ALP [Catalytic activity/Vol] 76 U/L Normal 34-123 [facility] Comment on above: Order Comment: Speci men Type: BLOOD SPECIMEN Ordering [facility] Address: [address] [place] [address] Performed By: #### 2 4323-8 #### [facility] CLIA [id number] [address] [place] [address] [place] ALT [Catalytic activity/Vol] 20 U/L Normal 7-38 [facility] Comment on above: Order Comment: Speci men Type: BLOOD SPECIMEN Ordering [facility] Address: [address] [place] [address] Performed By: #### 2 4323-8 #### [facility] CLIA [id number] [address] [place] [address] [place] Anion gap [Moles/Vol] 11 mmol/L Normal 8-15 [facility] Comment on above: Order Comment: Speci men Type: BLOOD SPECIMEN Ordering [facility]: [facility] Address: [address] [place] [address] Performed By: #### 2 4323-8 #### [facility] CLIA [id number] [address] [place] [address] [place] AST [Catalytic activity/Vol] 23 U/L Normal 13-35 [facility] Comment on above: Order Comment: Speci men Type: BLOOD SPECIMEN Ordering Facility: [facility] Address: [address] [place] [address] Result Comment: Resu lts may be falsely increased due to interference by hemolysis. Suggest reorder as clinically indicated. Performed By: #### 2 4323-8 #### [facility] CLIA [id number] [address] [place] [address] [place] Bilirubin [Mass/Vol] 0.3 mg/dL Normal 0.2-1.3 [facility] Comment on above: Order Comment: Speci men Type: BLOOD SPECIMEN Ordering [facility] Address: [address] [place] [address] Performed By: #### 2 4323-8 #### [facility] CLIA [id number] [address] [place] [address] [place] Calcium [Mass/Vol] 9.7 mg/dL Normal 8.5-10.2 [facility] Comment on above: Order Comment: Speci men Type: BLOOD SPECIMEN Ordering [facility]: [facility] Address: [address] [place] [address] Performed By: #### 2 4323-8 #### [facility] CLIA [id number] [address] [place] [address] [place] Chloride [Moles/Vol] 107 mmol/L Normal 98-107 [facility] Comment on above: Order Comment: Speci men Type: BLOOD SPECIMEN Ordering [facility] Address: [address] [place] [address] Performed By: #### 2 4323-8 #### [facility] CLIA [id number] [address] [place] [address] [place] CO2 [Moles/Vol] 22 mmol/L Normal 22-30 [facility] Comment on above: Order Comment: Speci men Type: BLOOD SPECIMEN Order[facility] Address: [address] [place] [address] Performed By: #### 2 4323-8 #### [facility] CLIA [id number] [address] [place] [address] [place] Creatinine [Mass/Vol] 0.61 mg/dL Normal 0.58-0.96 [facility] Comment on above: Order Comment: Speci men Type: BLOOD SPECIMEN Order[facility] Address: [address] [place] [address] Performed By: #### 2 4323-8 #### [facility] CLIA [id number] [address] [place] [address] [place] eGFRcr SerPlBld CKD-EPI 2020 120 mL/min/1.73m??? Normal >=60 [facility] Comment on above: Order Comment: Speci men Type: BLOOD SPECIMEN Ordering Facility: [facility] Address: [address] [place] [id number] Result Comment: Claudia mated Glomerular Filtration Rate [...] reflect actual GFR. Performed By: #### 2 4323-8 #### [facility] CLIA [id number] [address] [place] [address] [place] Glucose [Mass/Vol] 94 mg/dL Normal 74-99 [facility] Comment on above: Order Comment: Monica tsang Type: BLOOD SPECIMEN Ordering Facility: [facility] Address: [address] [place] [address] Result Comment: The [place] [employer] (ADA) provides guidance for cutoff [...] Standards of Medical Care in Diabetes 2016, [place] [employer]. Diabetes Care. 2016.39(Suppl 1). Performed By: #### 2 4323-8 #### [facility] CLIA [id number] [address] [place], [place] [address] [place] Potassium [Moles/Vol] 4.0 mmol/L Normal 3.7-5.1 [facility] Comment on above: Order Comment: Monica tsang Type: BLOOD SPECIMEN Order[facility] Address: [address] [id number] Performed By: #### 2 4323-8 #### [facility] CLIA [id number] [address] [place], [place] [address] [place] Protein [Mass/Vol] 7.2 g/dL Normal 6.3-8.0 [facility] Comment on above: Order Comment: Monica tsang Type: BLOOD SPECIMEN Order[facility] Address: [address] [place] [address] Performed By: #### 2 4323-8 #### [facility] CLIA [id number] [address] [place] [address] Sodium [Moles/Vol] 140 mmol/L Normal 136-144 [facility] Comment on above: Order Comment: Speci men Type: BLOOD SPECIMEN Order[facility] Address: [address] [place] [address] Performed By: #### 2 4323-8 #### [facility] CLIA [id number] [address] [place] [address] Urea nitrogen [Mass/Vol] 8 mg/dL Normal 7-21 [facility] Comment on above: Order Comment: Speci men Type: BLOOD SPECIMEN Order[facility] Address: [address] [place] [address] Performed By: #### 2 4323-8 #### [facility] CLIA [id number] [address] [place] [address] ED PROV NOTEon 06-16-2025 ED PROV NOTE HNO ID: [id number] Author: JEN ROBERTSON DO Service: ? Author Type: Physician Type: ED Provider Notes Filed: 06/16/2025 16:10 Note Text: ED Provider Note Patient Name: Greta Andres : 1990 SERVICE DATE: 06/16/25 History Patient presents with: Flank Pain: Right flank pain intermittently x 2 weeks Hx of kidney stones Patient is a 35-year-old female presenting to the emergency department complaint of right flank pain. Patient states that this started back in February. She states that it is intermittent, now and is more severe and constant. She states she was vomiting all morning. She followed up with urology recently.. She had a CAT scan done yesterday which is showing nonobstructive bilateral nephrolithiasis. Patient states she was instructed to come to the emergency department if her symptoms worsen. She states the past 2 weeks seemed to be worse. She states most the pain is in the right side of her low back. She denies any injury to her back it does not get worse when she moves. 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 No surgical correction done. The father of the baby's brother born with a hole in his heart. Surgical correction was done. 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[facility]) Degenerative disc disease Disorders of sacrum 02/20/2013 Dysmenorrhea 04/11/2007 Exercise-induced asthma ([facility]) 03/22/2014 Fetus conceived on control 03/31/2012 She [...] spinal stenosis 04/25/2024 Lupus (systemic lupus erythematosus) ([facility]) Migraine without aura and without status [...] total thyroidectomy 07/31/2019 Sacroiliitis, not elsewhere classified 02/20/2013 SI (sacroiliac) joint dysfunction 11/06/2015 Spinal [...] (KIDNEY PROBLEMS) Mother other (LUPUS) Mother other (more content not included)... Normal [facility] HCG QUALITATIVEon 06-16-2025 HCG, QUALITATIVE Negative Normal Negative [facility] Comment on above: Order Comment: Speci men Type: BLOOD SPECIMEN Order[facility] Address: [address] [place] [address] Performed By: #### H CG #### [facility] CLIA [id number] [address] [place] [address] [place] Urinalysis complete panel (U )on 06-16-2025 Bacteria LM.HPF (Urine sed) [#/Area] Rare Abnormal None Seen [facility] Comment on above: Order Comment: Speci men Type: URINE SPECIMEN Order[facility] Address: [address] [place] [address] Performed By: #### 2 4356-8 #### [facility] CLIA [id number] [address] [place] [address] [place] Bilirubin Ql (U) Negative Normal Negative [facility] Comment on above: Order Comment: Speci men Type: URINE SPECIMEN Order[facility] Address: [address] [place] [address] Performed By: #### 2 4356-8 #### [facility] CLIA [id number] [address] [place] [address] [place] Clarity (Unsp spec) Clear Normal Clear [facility] Comment on above: Order Comment: Speci men Type: URINE SPECIMEN Order[facility] Address: [address] [place] [address] Performed By: #### 2 4356-8 #### [facility] CLIA [id number] [address] [place] [address] [place] Color (U) Yellow Normal Yellow [facility] Comment on above: Order Comment: Speci men Type: URINE SPECIMEN [facility] Address: [address] [place] [address] Performed By: #### 2 4356-8 #### [facility] CLIA [id number] [address] [place] [address] [place] Epithelial cells LM.HPF (Urine sed) [#/Area] Few Normal [facility] Comment on above: Order Comment: Speci men Type: URINE SPECIMEN [facility] Address: [address] [place] [address] Performed By: #### 2 4356-8 #### [facility] CLIA [id number] [address] Glucose Test strip (U) [Mass/Vol] Negative Normal Negative [facility] Comment on above: Order Comment: Speci men Type: URINE SPECIMEN Order[facility] Address: [address] [place] [address] Performed By: #### 2 4356-8 #### [facility] CLIA [id number] [address] [place] [address] [place] Hemoglobin Ql (U) 3+ Abnormal Negative [facility] Comment on above: Order Comment: Speci men Type: URINE SPECIMEN [facility] Address: [address] [place] [address] Performed By: #### 2 4356-8 #### [facility] CLIA [id number] [address] [place] [address] [place] Ketones Ql (U) Negative Normal Negative [facility] Comment on above: Order Comment: Speci men Type: URINE SPECIMEN [facility] Address: [address] [place] [address] Performed By: #### 2 4356-8 #### [facility] CLIA [id number] [address] [place] [address] [place] Leukocyte esterase Test strip Ql (U) Negative Normal Negative [facility] Comment on above: Order Comment: Speci men Type: URINE SPECIMEN [facility] Address: [address] [place] [address] Performed By: #### 2 4356-8 #### [facility] CLIA [id number] [address] [place] [address] [place] Nitrite Ql (U) Negative Normal Negative [facility] Comment on above: Order Comment: Speci men Type: URINE SPECIMEN [facility] Address: [address] [place] [address] Performed By: #### 2 4356-8 #### [facility] CLIA [id number] [address] [place] [address] [place] pH (U) 6.5 [pH] Normal 5.0-8.0 [facility] Comment on above: Order Comment: Speci men Type: URINE SPECIMEN Order[facility] Address: [address] [place] [address] Performed By: #### 2 4356-8 #### [facility] CLIA [id number] [address] [place] [address] [place] Protein (U) [Mass/Vol] Negative Normal Negative [facility] Comment on above: Order Comment: Speci men Type: URINE SPECIMEN [facility] Address: [address] [place] [address] Performed By: #### 2 4356-8 #### [facility] CLIA [id number] [address] [place] [address] [place] RBC LM.HPF (Urine sed) [#/Area] /[HPF] Abnormal 0-3 /HPF [facility] Comment on above: Order Comment: Speci men Type: URINE SPECIMEN [facility] Address: [address] [place] [address] Performed By: #### 2 4356-8 #### [facility] CLIA [id number] [address] [place] [address] [place] Specific gravity (U) [Rel density] 1.020 Normal 1.005-1.030 [facility] Comment on above: Order Comment: Speci men Type: URINE SPECIMEN [facility] Address: [address] [place] [address] Performed By: #### 2 4356-8 #### [facility] CLIA [id number] [address] [place] [address] [place] Urobilinogen Ql (U) 0.2 EU/dL Normal 0.2-1.0 EU/dL [facility] Comment on above: Order Comment: Speci men Type: URINE SPECIMEN [facility] Address: [address] [place] [address] Performed By: #### 2 4356-8 #### [facility] CLIA [id number] [address] [place] [address] [place] WBC LM.HPF (Urine sed) [#/Area] 6-10 /HPF Abnormal 0-5 /HPF [facility] Comment on above: Order Comment: Speci men Type: URINE SPECIMEN Order[facility] Address: [address] [place] [address] Performed By: #### 2 4356-8 #### [facility] CLIA [id number] [address] [place] [address] CNOVon 06-15-2025 CNOV Office Visit (URUN) GRETA ANDRES ([id number]) 1990 F Date Time Provider Department 06/15/25 11:40 AM [facility] During your visit today, we recorded the following information about you: Pulse Blood pressure 91/minute 136/100 Yanci Navarrete RN 06/15/2025 2:15 PM Signed Medication requested and received from pharmacy. Injection given IM in left deltoid sites. Pt jamaal well. Post injection instructions given. Educated on side effects and s/s of allergic reaction. No further c/o or concerns. Verbalized understanding. DEANDRE Bass Brittany, DO 06/15/2025 2:15 PM Signed [facility] ESTABLISHED PATIENT NOTE/HISTORY AND PHYSICAL PATIENT: Greta Andres (35 year old) PCP: Nagi Red MD DATE OF SERVICE: 06/15/2025 SUBJECTIVE: CHIEF COMPLAINT: Follow Up (Patient state that she is having right side flank pain that wraps around to the front . She states that the pain comes and goes all the time and is desperate to get it out. Denies any urinary symptoms at this time. ) HISTORY OF PRESENT ILLNESS: Recording using ambient Handup software for draft documentation of the visit was discussed with the patient/authorized hotel services sales representative; all questions welcomed and answered. Patient/authorized hotel services sales representative agreed to proceed The patient was last seen by Sarah Miramontes POSSUM TRAPPER 06/07/25 . Prior notes were reviewed. Patient returns today for follow up . In interim, still having severe R sided pain a/w nausea and vomiting. Reports GI eval and they felt pain was from stones Review of Symptoms: Genitourinary: See HPI Constitutional: unintentional weight loss - denies, fevers - denies Cardiovascular: new or worsening chest pain - denies Respiratory: new or worsening shortness of breath - denies Gastrointestinal: constipation - denies, vomiting - denies Hematologic/Lymphatic: easy bleeding or bruising - denies Past Medical History: -Patient has a past medical history of ACQ EQUINUS DEFORMITY (01/23/2009), Anxiety, generalized (03/31/2012), Anxiety, generalized, Back pain (08/07/2013), Bipolar 1 disorder ([facility]) (02/14/2018), Bipolar 1 disorder ([facility]), Chronic fatigue disorder (03/19/2015), Congenital heart defect ([facility]) (03/31/2012), 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[facility]), Degenerative disc disease, Disorders of sacrum (02/20/2013), Dysmenorrhea (04/11/2007), Exercise-induced asthma ([facility]) (03/22/2014), Fetus conceived on control (03/31/2012), Fibromyalgia, Gastroparesis (03/25/2024), GERD (gastroesophageal reflux disease) (03/22/2014), HALLUX VALGUS (01/23/2009), Hypertension, essential (07/06/2022), Irregular menstrual cycle (04/11/2007), Lactose intolerance (03/31/2012), Lumbago (07/27/2012), Lumbar degenerative disc disease (07/27/2012), Lumbar spinal stenosis (04/25/2024), Lupus (systemic lupus erythematosus) ([facility]), Migraine without aura and without status migrainosus, not intractable (05/20/2017), Multiple thyroid nodules (07/26/2019), Neoplasm of uncertain behavior of skin of back, Obesity, Class I, BMI 30-34.9 (03/03/2023), Other and unspecified ovarian cyst, Other joint derangement, not elsewhere classified, lower leg (08/20/2008), 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), PMH - PAST MEDICAL HISTORY OF, Post-surgical hypothyroidism (08/25/2019), Primary thyroid papillary carcinoma (HCC) (07/21/2019), PTSD (post-traumatic stress disorder) (02/14/2018), PTSD (post-traumatic stress disorder), S/P total thyroidectomy (07/31/2019), Sacroiliitis, not elsewhere classified (02/20/2013), SI (sacroiliac) joint dysfunction (11/06/2015), Spinal stenosis of lumbar region, unspecified whether neurogenic claudication present, Trauma, Uncontrolled daytime somnolence (01/01/2015), Unspecified asthma(493.90) (05/2004), Ureteral dilatation (03/31/2012), Vitamin D deficiency (03/22/2014), and Vomiting, persistent, in adult (03/03/2023). Past Surgical History: -Patient has a past surgical history that includes dilat female urethra w/suppositoryAND/instlj ini (09/2000); arthroscopy knee diagnostic w/wo synovial bx spx (Right); correct bunion,simple (Right, 01/29/2009); lumbar or caudal epidural inj (2011); injection for nerve block (2010,2011); laparoscopy surg cholecystectomy (2012); fna with imaging (07/18/2014); esophagogastroduodenoscopy transoral diagnostic (02/21/2015); sinus surgery hx (2013); fna (07/18/2019); cystoscopy,remv ureteral stone (2016); colonoscopy (12/16/2021); salpingectomy (Bilateral, 10/23/2022); and thyroidectomy (07/2019). Medications: -Patient has a current medication list which includes the following prescription(s): ketorolac, tramadol, tramadol, sumatriptan, magnesium glycinate, riboflavin (vitamin b2), hydrochlorothiazide, propranolol, quetiapine, cariprazine, cholecalciferol (vitamin d3), cyclobenzaprine, albuterol hfa, levothyroxine (more content not included)... Normal [facility] CT Abdomen and Pelvis WO con traston 06-15-2025 IMPRESSION: Nonobstructing bilateral renal calculi. Vegetable Vendor: EITAN Transcribe Date/Time: Jun 15 2025 12:57P Dictated by : SRIDHAR ROSAS MD This examination was interpreted and the report reviewed and electronically signed by: SRIDHAR ROSAS MD on Jun 15 2025 1:02PM EST [facility] * * *Final Report* * * DATE OF EXAM: Jun 15 2025 12:46PM [facility] [place] - CT FLANK WO IVCON / PROCEDURE REASON: Bilateral nephrolithiasis * * * * Physician Interpretation * * * * EXAMINATION: CT FLANK WITHOUT IV CONTRAST CLINICAL HISTORY: Nephrolithiasis. TECHNIQUE: Non-contrast imaging of the abdomen and pelvis was performed through the urinary tract. Study performed without intravenous or oral contrast to evaluate for urinary tract calculus. MQ: [id number] Contrast: IV contrast: None Oral contrast: None CT Radiation dose: Integrated dose-length product (DLP) for this visit = 459.4 mGy*cm. CT Dose Reduction Employed: Automated exposure control(AEC) and iterative recon COMPARISON: None. RESULT: Limitations: Unenhanced imaging is limited for the evaluation of some renal and other intra-abdominal and pelvic pathology. Urinary Tract: Right kidney and ureter: A few calculi seen in the kidney measuring up to 7 mm. No hydronephrosis. No finding to suggest cyst or mass in the unenhanced kidney. Left kidney and ureter: A few calculi seen in the kidney measuring up to 4 mm. No hydronephrosis. No finding to suggest cyst or mass in the unenhanced kidney. Bladder: No calculus. Abdomen and Pelvis: Liver: Unremarkable. Biliary: No bowel dilation. The gallbladder is absent. Spleen: No splenomegaly. Pancreas: Unremarkable. Adrenals: Normal. GI Tract: No bowel dilation. The appendix is identified and normal in appearance. No diverticulitis. Lymph Nodes: No lymphadenopathy. Mesentery/peritoneum: No ascites. Vasculature: Not fully characterized. Pelvis: There is a 2.4 cm cyst or follicle in the right ovary. No free fluid. Bones and Soft Tissues: No acute abnormality. Lower thorax: Unremarkable. Localizer images: No additional findings. [facility] Provider, Ccadrian Toussaint - 06/15/2025 * * *Final Report* * * DATE OF EXAM: Jun 15 2025 12:46PM [facility] [place] FLANK WO IVCON / PROCEDURE REASON: Bilateral nephrolithiasis * * * * Physician Interpretation * * * * EXAMINATION: CT FLANK WITHOUT IV CONTRAST CLINICAL HISTORY: Nephrolithiasis. TECHNIQUE: Non-contrast imaging of the abdomen and pelvis was performed through the urinary tract. Study performed without intravenous or oral contrast to evaluate for urinary tract calculus. MQ: CTAbdPelvF_1 Contrast: IV contrast: None Oral contrast: None CT Radiation dose: Integrated dose-length product (DLP) for this visit = 459.4 mGy*cm. CT Dose Reduction Employed: Automated exposure control(AEC) and iterative recon COMPARISON: None. RESULT: Limitations: Unenhanced imaging is limited for the evaluation of some renal and other intra-abdominal and pelvic pathology. Urinary Tract: Right kidney and ureter: A few calculi seen in the kidney measuring up to 7 mm. No hydronephrosis. No finding to suggest cyst or mass in the unenhanced kidney. Left kidney and ureter: A few calculi seen in the kidney measuring up to 4 mm. No hydronephrosis. No finding to suggest cyst or mass in the unenhanced kidney. Bladder: No calculus. Abdomen and Pelvis: Liver: Unremarkable. Biliary: No bowel dilation. The gallbladder is absent. Spleen: No splenomegaly. Pancreas: Unremarkable. Adrenals: Normal. GI Tract: No bowel dilation. The appendix is identified and normal in appearance. No diverticulitis. Lymph Nodes: No lymphadenopathy. Mesentery/peritoneum: No ascites. Vasculature: Not fully characterized. Pelvis: There is a 2.4 cm cyst or follicle in the right ovary. No free fluid. Bones and Soft Tissues: No acute abnormality. Lower thorax: Unremarkable. Localizer images: No additional findings. IMPRESSION IMPRESSION: Nonobstructing bilateral renal calculi. Vegetable Vendor: EITAN Transcribe Date/Time: Jun 15 2025 12:57P Dictated by : SRIDHAR ROSAS MD This examination was interpreted and the report reviewed and electronically signed by: SRIDHAR ROSAS MD on Jun 15 2025 1:02PM EST [facility] Radiology Study observation (narrative) [facility] CT Abdomen and Pelvis WO con trastOrdered By: [facility] Provider on 06-15-[address] [facility] [address] FLANK WO IVCONon 06-15-20 CT FLANK WO IVCON * * *Final Report* * * DATE OF EXAM: Jun 15 2025 12:46PM [facility] [place] CT FLANK WO IVCON / PROCEDURE REASON: Bilateral nephrolithiasis * * * * Physician Interpretation * * * * EXAMINATION: CT FLANK WITHOUT IV CONTRAST CLINICAL HISTORY: Nephrolithiasis. TECHNIQUE: Non-contrast imaging of the abdomen and pelvis was performed through the urinary tract. Study performed without intravenous or oral contrast to evaluate for urinary tract calculus. MQ: CTAbdPelvF_1 Contrast: IV contrast: None Oral contrast: None CT Radiation dose: Integrated dose-length product (DLP) for this visit = 459.4 mGy*cm. CT Dose Reduction Employed: Automated exposure control(AEC) and iterative recon COMPARISON: None. RESULT: Limitations: Unenhanced imaging is limited for the evaluation of some renal and other intra-abdominal and pelvic pathology. Urinary Tract: Right kidney and ureter: A few calculi seen in the kidney measuring up to 7 mm. No hydronephrosis. No finding to suggest cyst or mass in the unenhanced kidney. Left kidney and ureter: A few calculi seen in the kidney measuring up to 4 mm. No hydronephrosis. No finding to suggest cyst or mass in the unenhanced kidney. Bladder: No calculus. Abdomen and Pelvis: Liver: Unremarkable. Biliary: No bowel dilation. The gallbladder is absent. Spleen: No splenomegaly. Pancreas: Unremarkable. Adrenals: Normal. GI Tract: No bowel dilation. The appendix is identified and normal in appearance. No diverticulitis. Lymph Nodes: No lymphadenopathy. Mesentery/peritoneum: No ascites. Vasculature: Not fully characterized. Pelvis: There is a 2.4 cm cyst or follicle in the right ovary. No free fluid. Bones and Soft Tissues: No acute abnormality. Lower thorax: Unremarkable. Localizer images: No additional findings. IMPRESSION: Nonobstructing bilateral renal calculi. Vegetable Vendor: PSCB Transcribe Date/Time: Jun 15 2025 12:57P Dictated by : SRIDHAR ROSAS MD This examination was interpreted and the report reviewed and electronically signed by: SRIDHAR ROSAS MD on Jun 15 2025 1:02PM EST [id number] [facility] BLADDER SCANon 06-07-2025 PVR = 0 ml [facility] Bacteria Ur Culton Bacteria identified Cx Nom (U) CULTURE, URINE: No growth (<1,000 CFU/ml) Normal [facility] Comment on above: Performed By: #### 6 30-4 #### [facility] CLIA [id number] [address] [place] [address] [place] CNOVon 06-07-2025 CNOV Office Visit (UROLAE ) GRETA ANDRES ([id number]) 1990 F Date Time Provider Department 06/07/25 1:00 PM SARAH MIRAMONTES During your visit today, we recorded the following information about you: Pulse Blood pressure Height 88/minute 159/98 1.651 m Sarah Miramontes APRN.DRAMATIC ARTS HISTORIAN 06/07/2025 2:10 PM Signed [facility] [place] [facility]OL [place] [facility] NEW PATIENT UROLOGY VISIT 06/07/2025 10:21 AM PATIENT NAME: Greta Andres DATE OF : 1990 TODAY'S DATE: 06/07/2025 Referring Provider: Nagi Red [address] [place] [id number] Referring Note Reviewed: Yes Chief Complaint: kidney stones, right flank pain History of Present Illness: Ms. Andres is a 35 year old female who presents to the office regarding kidney stones and right flank pain since February 2025. She went to [facility] ER on 03/18/25 Found to have bilateral non-obstructing kidney stones CT ABD PEL WO CON FINDINGS: KIDNEYS: Nonobstructing 6 millimeter calcifications present [...] BONES: Normal. No bony lesion or fracture. Also had renal US 05/23/25: RESULT: Right Kidney: -Renal length: 12.8 cm -Parenchyma: Normal parenchymal echogenicity. Normal parenchymal thickness. -Collecting system: No hydronephrosis. -Calculus: 8 mm and 4 mm mid pole calculi. -Lesion: None. Left Kidney: -Renal length: 11.7 cm -Parenchyma: Normal parenchymal echogenicity. Normal parenchymal thickness. -Collecting system: No hydronephrosis. -Calculus: Two 4 mm mid to lower pole calculi. -Lesion: None. Bladder: Normal sonographic appearance. Prevoid Bladder Volume: 108 cc Postvoid Bladder Volume: 0 cc Other: Hepatic steatosis. Patient has seen Urology before regarding kidney stones Saw Dr Og in 2014 2012 was time of her first kidney stone Kidney stones twice a year for the past 10-15 years Passes most on her own Does not get frequent UTIs, has not had one for 4-5 years Previous stone procedures: ESWL: 0 URS: 1, in 2018 PCNL: 0 MET: 20+ Family hx: + stones everyone -- both parents, brother, sister, grandparents.. - gout - prostate ca/ ca Hx thyroid cancer, dx'd 2019 S/p thyroidectomy, on levothyroxine Review of Systems Constitutional: Negative for fever. Genitourinary: Positive for flank pain. Negative for difficulty urinating, dysuria, frequency, hematuria and urgency. 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 No surgical correction done. The father of the baby's brother born with a hole in his heart. Surgical correction was done. 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[facility]) Degenerative disc disease Disorders of sacrum 02/20/2013 Dysmenorrhea 04/11/2007 Exercise-induced asthma ([facility]) 03/22/2014 Fetus conceived on control 03/31/2012 She states she stopped her control pills one week ago when she found out she was . Fibromyalgia Gastroparesis 03/25/[address] Cole GERD (gastroesophageal reflux disease) 03/22/2014 HALLUX VALGUS 01/23/2009 Hypertension, essential 07/06/2022 Irregular menstrual cycle 04/11/2007 Lactose intolerance 03/31/2012 03/31/2012Patient is lactose intolerant. [facility] handout on Increasing Calcium in Your Diet During given to (more content not included)... Normal [facility] Matilda 06-07-2025 [place] Telephone (MARISELA) GRETA ANDRES ([id number]) 1990 F Date Time Provider Department 06/07/25 SARAH MIRAMONTES During your visit today, we recorded the following information about you: Linnette Douglas MA 06/07/2025 2:05 PM Signed Received call from [facility] - they unable to fill oral Ketorolac 10 mg. Toradol oral has to be prescribed as a continuation of care from IM or IV. Call back to [facility] pharmacy - [phone] KAUSHAL NaylorLinnetteKAUSHAL 06/07/2025 2:09 PM Signed Spoke with patient advised pharmacy unable to fill oral Toradol. She will continue Tylenol and Ibuprofen for pain management. KAUSHAL Naylor Alison, APRN.MARGARITA 06/07/2025 2:10 PM Signed Thank you. Domenica Baker MA 06/08/2025 10:13 AM Signed [facility] pharmacy called and stated that are canceling the medication Ketorolac, because it is not given in office via IV or IM, they daniel asking if another medication can be called into pharmacy. Please advise. KAUSHAL Novoa Alison, APRN.MARGARITA 06/08/2025 11:05 AM Signed Patient will take OTC Tylenol/ Motrin. Sarah Miramontes APRN.MARGARITA Allergies As of Date: 06/07/2025 Noted Allergy Reaction ADHESIVE 02/12/2010 2 - Rash MORPHINE SULFATE 11/12/2008 9 - Itching Comments: had vicodin at same time, but has taken vicodin in past without reaction ADDERALL (DEXTROAMPHETAMINE-AMPHE* 5 - Intolerance Comments: Heart racing, chest pain, diaphoretic, dizzy Date Reviewed: 06/07/2025 Reviewed by: Sarah Miramontes APRN.DRAMATIC ARTS HISTORIAN - Fully Assessed Reason for Visit: Medication Problem [65] Prescriptions as of 06/08/2025 - traMADol (ULTRAM) 50 mg tablet TAKE 1 TO 2 TABLETS BY MOUTH ONCE DAILY NEEDED FOR PAIN FOR UP TO 30 DAYS - keTORolac (TORADOL) 10 mg tablet Take 1 tablet by mouth every 6 hours as needed. - SUMAtriptan (IMITREX) 50 mg tablet Take [...] time only. Problem List As Of Date 06/07/2025 Noted Resolved Irregular menstrual cycle [N92.6] 04/11/2007 [...] I, BMI 30-34.9 [E66.811] 03/03/2023 Encounter for screeni (more content not included)... Normal [facility] UA DIP, URINE (POC)on 2024 BILIRUBIN UA (POCT) Negative Negative [facility] CLARITY UA (POCT) Clear [facility] COLOR UA (POCT) Yellow [facility] GLUCOSE UA (POCT) Negative Negative mg/dL [facility] Hemoglobin Ql (U) Trace-intact Abnormal Negative [facility] Interpretation and review of laboratory results Abnormal [facility] KETONE UA (POCT) Negative Negative mg/dL [facility] LEUKOCYTES UA (POCT) Trace Abnormal Negative [facility] N[facility] U[facility] (POCT) Negative Negative [facility] PH UA (POCT) 6 4.5 - 8.0 [facility] Protein Ql (U) Trace Abnormal Negative mg/dL [facility] SPECIFIC GRAVITY UA (POCT) 1.02 1.005 - 1.030 [facility] UROBILINOGEN UA (POCT) 0.2 Normal E.U./dL [facility] Location:[facility], [address] [place] [address], [address] [facility] POINT OF CARE [facility] Urinalysis complete panel (U )on 06-07-2025 Bilirubin Ql (U) Negative Negative [facility] Calcium Oxalate Crystals Few Abnormal None Seen /HPF [facility] Clarity (Unsp spec) Clear Clear [facility] Color (U) Yellow yellow [facility] Epithelial cells LM.HPF (Urine sed) [#/Area] Few Abnormal None Seen /HPF [facility] Glucose Test strip (U) [Mass/Vol] Negative Trace, Negative [facility] Hemoglobin Ql (U) Negative Negative, Trace [facility] Interpretation and review of laboratory results Abnormal [facility] Ketones Ql (U) Negative Negative, Trace [facility] Leukocyte esterase Test strip Ql (U) 25 Ari/uL Negative, 25 Ari/uL [facility] Nitrite Ql (U) Negative Negative [facility] pH (U) 6 [pH] 5.0 - 8.0 [facility] Protein (U) [Mass/Vol] Trace Trace, Negative [facility] RBC LM.HPF (Urine sed) [#/Area] 3-5 /HPF Abnormal 0-3 /HPF [facility] Specific gravity (U) [Rel density] 1.023 1.005 - 1.030 [facility] Urobilinogen Ql (U) Normal Normal [facility] WBC LM.HPF (Urine sed) [#/Area] 0-5 /HPF 0-5 /HPF [facility] Bilirubin Ql (U) Negative Normal Negative [facility] Comment on above: Order Comment: Speci men Type: URINE SPECIMEN Ordering Facility: [facility] Address: [address] [place] [address] Performed By: #### 2 4356-8 #### [facility] CLIA [id number] [address] CALCIUM OXALATE CRYSTALS (UA) Few Abnormal None Seen [facility] Comment on above: Order Comment: Speci men Type: URINE SPECIMEN Ordering Facility: [facility] Address: [address] [place] [address] Performed By: #### 2 4356-8 #### [facility] CLIA [id number] [address] [place] [address] [place] Clarity (Unsp spec) Clear Normal Clear [facility] Comment on above: Order Comment: Speci men Type: URINE SPECIMEN Ordering Facility: [facility] Address: [address] [place] [address] Performed By: #### 2 4356-8 #### [facility] CLIA [id number] [address] [place] Color (U) Yellow Normal yellow [facility] Comment on above: Order Comment: Speci men Type: URINE SPECIMEN Ordering Facility: [facility] Address: [address] [place] [address] Performed By: #### 2 4356-8 #### [facility] CLIA [id number] [address] OF [facility] Epithelial cells LM.HPF (Urine sed) [#/Area] Few Normal [facility] Comment on above: Order Comment: Speci men Type: URINE SPECIMEN Ordering Facility: [facility] Address: [address] [place] [address] Result Comment: Few Performed By: #### 2 4356-8 #### [facility] CLIA [id number] [address] [place] Glucose Test strip (U) [Mass/Vol] Negative Normal Trace, Negative [facility] Comment on above: Order Comment: Speci men Type: URINE SPECIMEN Ordering Facility: [facility] Address: [address] [place] [address] Performed By: #### 2 4356-8 #### [facility] CLIA [id number] 1 [place] [address] [place] Hemoglobin Ql (U) Negative Normal Negative, Trace [facility] Comment on above: Order Comment: Speci men Type: URINE SPECIMEN Ordering Facility: [facility] Address: [address] [place] [address] Performed By: #### 2 4356-8 #### [facility] CLIA [id number] [address] [place] Ketones Ql (U) Negative Normal Negative, Trace [facility] Comment on above: Order Comment: Speci men Type: URINE SPECIMEN Ordering Facility: [facility] Address: [address] [place] [address] Performed By: #### 2 4356-8 #### [facility] CLIA [id number] [address] Leukocyte esterase Test strip Ql (U) 25 Ari/uL Normal Negative, 25 Ari/uL [facility] Comment on above: Order Comment: Speci men Type: URINE SPECIMEN Ordering Facility: [facility] Address: [address] [place] [address] Performed By: #### 2 4356-8 #### [facility] CLIA [id number] [address] Nitrite Ql (U) Negative Normal Negative [facility] Comment on above: Order Comment: Speci men Type: URINE SPECIMEN Ordering Facility: [facility] Address: [address] [place] [address] Performed By: #### 2 4356-8 #### [facility] CLIA [id number] [address] [place] pH (U) 6.0 [pH] Normal 5.0-8.0 [facility] Comment on above: Order Comment: Speci men Type: URINE SPECIMEN Ordering Facility: [facility] Address: [address] [place] [address] Performed By: #### 2 4356-8 #### [facility] CLIA [id number] [address] Protein (U) [Mass/Vol] Trace Normal Trace, Negative [facility] Comment on above: Order Comment: Speci men Type: URINE SPECIMEN Ordering Facility: [facility] Address: [address] [place] [address] Performed By: #### 2 4356-8 #### [facility] CLIA [id number] [address] RBC LM.HPF (Urine sed) [#/Area] 3-5 /HPF Abnormal 0-3 /HPF [facility] Comment on above: Order Comment: Speci men Type: URINE SPECIMEN Ordering Facility: [facility] Address: [address] [place] [address] Performed By: #### 2 4356-8 #### [facility] CLIA [id number] [address] OF [facility] Specific gravity (U) [Rel density] 1.023 Normal 1.005-1.030 [facility] Comment on above: Order Comment: Speci men Type: URINE SPECIMEN Ordering Facility: [facility] Address: [address] [place] [address] Performed By: #### 2 4356-8 #### [facility] CLIA [id number] [address] [place] Urobilinogen Ql (U) Normal Normal Normal [facility] Comment on above: Order Comment: Speci men Type: URINE SPECIMEN Ordering Facility[facility] Address: [address] [place] [address] Performed By: #### 2 4356-8 #### [facility] CLIA [id number] [address] [place] WBC LM.HPF (Urine sed) [#/Area] 0-5 /HPF Normal 0-5 /HPF [facility] Comment on above: Order Comment: Speci men Type: URINE SPECIMEN Ordering Facility: [facility] Address: [address] [place] [address] Performed By: #### 2 4356-8 #### [facility] CLIA [id number] [address] [place] Orthopedic Visit Reporton Orthopedic Visit Report [facility] [address] [place] [address] [address] [place] [address] OFFICE VISIT Date of Service: 05/21/25 MR#: [id number] Acct: [id number] Name: GRETA ANDRES Rep #: [id number] : 1990 Provider: Dr. Thaddeus roman MD Age/Sex: 35/F Location: [facility] Status: Signed Intake Vital Signs 04/17/25 15:02 05/21/25 08:17 Height 5 ft 5 in 5 ft 5 in Weight: 193 lb 4 oz BMI 32.1 Intake Visit Reasons: RIGHT HAND Chief Complaint: Right Hand Pain Accompanied by: Self Is patient in pain?: Yes Pain scale (1-10): 5 Allergies amphetamine (From Adderall) Allergy (Severe, Verified 05/21/25 08:17) unknown dextroamphetamine (From Adderall) Allergy (Severe, Verified 05/21/25 08:17) unknown adhesive tape Allergy (Intermediate, Verified 05/21/25 08:17) Rash morphine Allergy (Verified 05/21/25 08:17) Rash Medications ???Medication ???Instructions ???Recorded ???Confirmed ???Type albuterol sulfate 90 mcg/actuation 1 - 2 puff inhalation Q4H PRN MO N 11/06/19 05/21/25 History aerosol inhaler Sob /Or Wheezing rizatriptan 10 mg tablet (Maxalt) 10 mg PO PRN PRN MIGRAINES 05/21/25 History tramadol 50 mg tablet 50 mg PO Q6H PRN Pain 04/05/23 History cyclobenzaprine 10 mg tablet 10 mg PO TID PRN Muscle Spasm #20 03/13/24 05/21/25 Rx TABLETS cariprazine 1.5 mg capsule 1.5 mg PO DAILY 05/13/24 05/21/25 History (José Miguel) scopolamine base 1 mg over 3 days 1 patch transdermal Q3D PRN nasue a 01/19/25 05/21/25 Rx transdermal patch #24 ea hydrochlorothiazide 25 mg tablet 25 mg PO DAILY 03/19/25 05/21/25 H istory levothyroxine 200 mcg tablet 200 mcg PO DAILY 03/19/25 05/21/25 History levothyroxine 25 mcg tablet 25 mcg PO MOWE 03/19/25 05/21/25 H istory ondansetron 4 mg disintegrating 4 mg PO Q8H PRN PRN Nausea #10 tab s 03/19/25 05/21/25 Rx tablet prazosin 2 mg capsule 2 mg PO QHS 03/19/25 05/21/25 Hist ory quetiapine 50 mg tablet 50 mg PO QHS 03/19/25 05/21/25 His tory promethazine 12.5 mg tablet 12.5 mg PO TID PRN nausea and 03/2305/21/25 Rx vomiting #30 tabs promethazine 25 mg rectal 25 mg MO Q6H PRN nausea and 05/21/25 Rx suppository vomiting #12 ea PFSH Medical History Right carpal tunnel syndrome Kidney stone Cancer Anemia Migraine headache History [...] Status: Never smoker alcohol intake: never HPI RIGHT HAND Details: This documentation accurately reflects the service provided and the decisions made by me, Dr. Thaddeus Moya MD 05/21/25 0759. Part of today???s visit was documented by [ ], acting as scribe. GRETA ANDRES is a 35 year old F here today for Right carpal tunnel syndrome. This has been going on for 2 years and slowly getting worse there is numbness in the first 3 digits. Somewhat going up in the proximal forearm. Comes and goes gets worse with driving. 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 Has not tried any treatments no past surgery no nerve conduction studies. Coding Level of Care Code Off vis,new,level 3 Diagnoses Right carpal tunnel syndrome G56.01 Assessment and Plan Assessment and Plan (1) Right carpal tunnel syndrome: Status: Acute Plan: GRETA ANDRES is a 35 year old F here today for Right carpal tunnel syndrome. I will go ahead and order nerve conduction studies right upper extremity as well as prescribed a nighttime wrist brace to try that for 6 weeks follow-up either after the nerve studies or the 6 weeks of conservative care. The patient understands no further questions or concerns. Carpal Tunnel Syndr (more content not included)... Normal [facility] US KIDNEY/BLADDERon 05-21-20 US KIDNEY/BLADDER * * *Final Report* * * DATE OF EXAM: May 21 2025 10:21AM [facility] 1055 - US KIDNEY/BLADDER / PROCEDURE REASON: multiple diagnoses * * * * Physician Interpretation * * * * EXAMINATION: RENAL ULTRASOUND CLINICAL HISTORY: Nephrolithiasis TECHNIQUE: Sonography of the kidneys and urinary bladder was performed. Images were obtained and stored in a permanent archive. MQ: UR_1 COMPARISON: None RESULT: Right Kidney: -Renal length: 12.8 cm -Parenchyma: Normal parenchymal echogenicity. Normal parenchymal thickness. -Collecting system: No hydronephrosis. -Calculus: 8 mm and 4 mm mid pole calculi. -Lesion: None. Left Kidney: -Renal length: 11.7 cm -Parenchyma: Normal parenchymal echogenicity. Normal parenchymal thickness. -Collecting system: No hydronephrosis. -Calculus: Two 4 mm mid to lower pole calculi. -Lesion: None. Bladder: Normal sonographic appearance. Prevoid Bladder Volume: 108 cc Postvoid Bladder Volume: 0 cc Other: Hepatic steatosis. IMPRESSION: Bilateral nephrolithiasis. No hydronephrosis. Hepatic steatosis. Vegetable Vendor: [employer] Transcribe Date/Time: May 23 2025 4:50A Dictated by : DUC JONES MD This examination was interpreted and the report reviewed and electronically signed by: DUC JONES MD on May 23 2025 4:53AM EST [id number] [facility] GRE[facility] AND[facility] ([id number]) 1990 F Date Time Provider Department 05/17/25 NAGI RED During your visit today, we recorded the following information about you: Nagi Red MD 05/17/2025 2:01 PM Signed Let patient know her insurance is refusing the CT. They require an US to be done first. This will most likely be non-diagnostic and then we can get the CT. US order placed and order for CT cancelled. Ada Carson LPN 05/17/2025 3:11 PM Signed Pt notified of providers message and instructions. Pt verbalizes understanding. Pt was assisted in transfer to schedule US and cancel CT appointment. Pt states Dr Red had wanted to know if she has been having any breathing problems. Pt states she does have trouble breathing /shortness of breath. Questions what she can do for this. Advises that she uses her Albuterol inhaler multiple times per day. States her daughter plays ball and she gets out of breath just walking from the car to the ball field. Ok to send pt a msg via or can call pt. Pt uses [employer]. STAN Coffey Jeffrey A, MD 05/17/2025 3:38 PM Signed Advise patient I want her to complete the breathing studies I ordered at her recent office visit. Darline Roldan RN 05/17/2025 5:28 PM Signed Pt called and is notified of providers message and instructions. Pt states, that's all he recommends for my breathing problems, not to use my inhalers or anything?. I asked if she had set up appointment for breathing studies, and she said she had called in and they were scheduling out a month. 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 Pt was asking what provider would recommend she do for her breathing issues. Please call and advise. DEANDRE Cuellar Jeffrey A, MD 05/17/2025 10:12 PM Signed My assumption was that she has already been using her inhalers as needed and would continue to do so as was dicussed during her recent visit. She never mentioned at the appt she would need a new script for her rescue inhaler and it looks like the last one was sent in on 07/06/2022. Is she in need of a new script then? Until I have the breathing test results I won't know if other types of treatment will even be beneficial. Darline Roldan, DEANDRE 05/18/2025 8:48 AM Signed Called and left a voicemail for the Patient to call back and ask for a nurse to receive the providers message. DEANDRE Cuellar M Robin, RN 05/18/2025 1:10 PM Signed Pt returned call and given provider's message below with verbalized understanding. Pt reports she has her inhalers and has been using them. Pt reports she is trying to schedule the testing and will call again today to see if she can schedule. Allergies As of Date: 05/17/2025 Noted Allergy Reaction ADHESIVE 02/12/2010 2 - Rash MORPHINE SULFATE 11/12/2008 9 - Itching Comments: had vicodin at same time, but has taken vicodin in past without reaction ADDERALL (DEXTROAMPHETAMINE-AMPHE* 5 - Intolerance Comments: Heart racing, chest pain, diaphoretic, dizzy Date Reviewed: 05/08/2025 Reviewed by: Nagi Red MD - Fully Assessed Reason for Visit: Patient Update [1234] Primary Visit Diagnosis:Nausea and vomiting, unspecified vomiting type [R11.2] Other Visit Diagnoses:Right flank pain [R10.9] RUQ pain [R10.11] Renal stones [N20.0] Order(s):US KIDNEY/BLADDER [9471000] Order #: [id number] FUTURE Prescriptions as of 05/18/2025 - SUMAtriptan (IMITREX) 50 mg tablet Take [...] (so add this 25mcg tab to your d (more content not included)... Normal [facility] GRETA AND[facility] ([id number]) 1990 F Date Time Provider Department 05/14/25 NAGI RED During your visit today, we recorded the following information about you: Elham Brady LPN 05/14/2025 12:48 PM Signed Patient calling she did not know she had appt today until she just got a my chart message of the appt. Patient said she did not think she needed to come in, she had appt last week with PCP on 05/08. Phil Millan MA 05/15/2025 9:32 AM Signed Pt was sent a Glook[employer] message notifying her that PCP notified MA that pt was already seen and pt did not need a no show letter. Will keep encounter open to make sure pt view message. Phil Millan MA Allergies As of Date: 05/14/2025 Noted Allergy Reaction ADHESIVE 02/12/2010 2 - Rash MORPHINE SULFATE 11/12/2008 9 - Itching Comments: had vicodin at same time, but has taken vicodin in past without reaction ADDERALL (DEXTROAMPHETAMINE-AMPHE* 5 - Intolerance Comments: Heart racing, chest pain, diaphoretic, dizzy Date Reviewed: 05/08/2025 Reviewed by: Nagi Red MD - Fully Assessed Reason for Visit: Appointment [186] Prescriptions as of 06/26/2025 - traMADol (ULTRAM) 50 mg tablet Take 50 mg by mouth two times a day as needed for pain. Patient filled 06/12/2025 PDMP - HYDROcodone-acetaminophen (NORCO) 5-325 mg per tablet Take 1 tablet by mouth every 6 hours as needed for up to 7 days. - ondansetron orally disintegrating (ZOFRAN ODT) 4 mg disintegrating tablet Take 1 tablet by mouth every 8 hours as needed for nausea/vomiting. - keTORolac (TORADOL) 10 mg tablet Take 1 tablet by mouth every 6 hours as needed. - SUMAtriptan (IMITREX) 50 mg tablet Take 1 tablet (50 mg) by mouth as needed for migraine headache (see administration instructions). May repeat dose after 2 hours if needed. Maximum daily dose is 200 mg per day. - magnesium glycinate 100 mg magnesium capsule Take 2 capsules by mouth two times a day. - hydroCHLOROthiazide 25 mg tablet Take 1 [...] time only. Problem List As Of Date 05/14/2025 Noted Resolved Irregular menstrual cycle [N92.6] 04/11/2007 [...] [N20.0] 04/25/2024 Encounter for gynecological examination [Z01.41*04/25/2024 (more content not included)... Normal [facility] CNPNon 05-09-2025 CNPN Telephone (FAMPWS) GRETA ANDRES ([id number]) 1990 F Date Time Provider Department 05/09/25 JACE WALLIS [facility] During your visit today, we recorded the following information about you: Jace Wallis MA 05/09/2025 1:48 PM Signed Note from Dr Red Let patient know her UA was ok except for a large amount of protein. I have placed an order to get a 24 hr urine protein study. She also needs a BP check with [facility] in 2 weeks. Patient has an appt on 05/14/2025. We could do her BP check then. She needs a complete PE set up in jul. KAUSHAL Mazariegos Jeffrey A, MD 05/15/2025 3:57 PM Signed Yes needs a f/u BP check in 2 weeks and a complete PE scheduled in jul 2025. Phil Millan MA 05/16/2025 7:46 AM Signed Pt has been sent a Glooko message notifying her that she needs a BP follow up from 05/08/25 with [facility]. Will wait pt response via [employer]. Will keep this encounter open until appt is made. Watch [employer]ooko message to make sure viewed by pt. If not will call to schedule. KAUSHAL Armendariz Rilee, MA 05/17/2025 10:31 AM Signed Pt called and scheduled for 2 week BP check on 05/24/25 at 9:40 am with RR. Pt requested this day due to Daughter having appt at this location around this time. Phil Millan MA Allergies As of Date: 05/09/2025 Noted Allergy Reaction ADHESIVE 02/12/2010 2 - Rash MORPHINE SULFATE 11/12/2008 9 - Itching Comments: had vicodin at same time, but has taken vicodin in past without reaction ADDERALL (DEXTROAMPHETAMINE-AMPHE* 5 - Intolerance Comments: Heart racing, chest pain, diaphoretic, dizzy Date Reviewed: 05/08/2025 Reviewed by: Nagi Red MD - Fully Assessed Reason for Visit: Results [95] Prescriptions as of 05/17/2025 - SUMAtriptan (IMITREX) 50 mg tablet Take [...] time only. Problem List As Of Date 05/09/2025 Noted Resolved Irregular menstrual cycle [N92.6] 04/11/2007 [...] screening for diabetes mellitus [*03/03/2023 Gastroparesis [K31.84] (more content not included)... Normal [facility] CNOVon 05-08-2025 CNOV Office Visit (FAMPWS ) GRETA ANDRES ([id number]) 1990 F Date Time Provider Department 05/08/25 8:40 AM NAGI RED FAMPWS During your visit today, we recorded the following information about you: Temperature Pulse Respiration Blood pressure 98 degrees 70/minute 16/minute 118/94 Weight 88.5 kg Nagi Red MD 05/08/2025 7:39 PM Signed Chief Complaint Patient presents with: Nausea AND Vomiting HPI Greta Andres is a 35 year old female who presents here today for Continued Stomach pain. Greta Andres is a 35-year-old female with a history of papillary thyroid cancer, gastroparesis, and recurrent Nausea and emesis, presenting for evaluation of persistent symptoms and management of underlying conditions. Greta reports persistent, severe emesis occurring around the clock, with episodes of emesis every 15-20 minutes approximately every 2-3 weeks. She describes the emesis as similar to food poisoning and notes that it can occur without preceding nausea. She has been to the ED multiple times for these episodes, where she receives IV fluids, Phenergan, and Zofran, which provide temporary relief. She denies any recent changes in medications and does not use marijuana. She has been using a scopolamine patch with minimal improvement in symptoms. She reports that certain foods, particularly meats and fatty foods, exacerbate her nausea, and she tries to avoid them. She denies any recent hematuria, dysuria, or changes in urinary frequency or urgency. Pt has been seen by Gastro and recnetly had a MRCP that showed bilateral small plural effusion. a recnet chest x-ray was negative. Greta has a history of papillary thyroid cancer and notes that her TSH levels were significantly elevated at 89.1 in October, with a recent improvement to 34.7. She reports that her offal baler did not increase her medication dosage due to her uncontrolled gastroparesis and difficulty keeping medication down. Instead, she was advised to take her medication at night. She has not had her TSH levels rechecked since the last adjustment. She is scheduled to see her oncologist on June 27. Greta also reports dyspnea, which worsens with heat and physical activity. She denies hemoptysis, but notes frequent coughing, which necessitates the use of her inhaler. She has a history of seasonal allergies. She underwent a breathing test last year and reports no significant changes in her symptoms since then. Greta has a history of kidney issues, including a blocked kidney in 2017 that required emergency surgery. She reports right-sided back pain that radiates to the front, describing it as a deep within pain. She was evaluated by a urologist, Dr. Gonzáles, who did not find any current issues. Her most recent kidney labs from January showed normal BUN, creatinine, and GFR levels. She also underwent an x-ray on April 09, which did not visualize any stones, and a CT scan on March 18. She reports episodes of dark brown urine but denies any recent hematuria. Greta has a history of cholecystectomy and reports that a previous MRCP showed stable mild right hepatic lobe biliary dilation and a question of a stricture at the distal right bile duct. She has not had a HIDA scan but also no longer has a gal bladder. She is willing to travel for further evaluation and treatment. Past medical history, appointments, medications, allergies reviewed. 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 No surgical correction done. The father of the baby's brother born with a hole in his heart. Surgical correction was done. 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[facility]) Degenerative disc disease Disorders of sacrum 02/20/2013 Dysmenorrhea 04/11/2007 Exercise-induced asthma ([facility]) 03/22/2014 Fetus conceived on control 03/31/2012 She states she stopped her control pills one week ago when she found out she was . Fibromyalgia Gastroparesis 03/25/[address] Cole GERD (gastroesophageal reflux disease) 03/22/2014 HALLUX VALGUS 01/23/2009 Hypertension, essential 07/06/2022 Irregular menstrual cycle 04/11/2007 Lactose intolerance 03/31/2012 03/31/2012Patient (more content not included)... Normal [facility] UA DIP, URINE (POC)on 2024 BILIRUBIN UA (POCT) Negative Negative [facility] CLARITY UA (POCT) Clear [facility] COLOR UA (POCT) Yellow [facility] GLUCOSE UA (POCT) Negative Negative mg/dL [facility] Hemoglobin Ql (U) Negative Negative [facility] Interpretation and review of laboratory results Abnormal [facility] KETONE UA (POCT) Negative Negative mg/dL [facility] LEUKOCYTES UA (POCT) Negative Negative [facility] NITRITE UA (POCT) Negative Negative [facility] PH UA (POCT) 6.5 4.5 - 8.0 [facility] Protein Ql (U) 100 mg/dL Abnormal Negative [facility] SPECIFIC GRAVITY UA (POCT) 1.025 1.005 - 1.030 [facility] UROBILINOGEN UA (POCT) 0.2 Normal E.U./dL [facility] Location:[facility], [address] [place] [address], [place], [place], [id number] [place] [address] POINT OF CARE [facility] T4 Free SerPl-mCncon 025 Free T4 [Mass/Vol] 1.2 ng/dL Normal 0.9-1.7 [facility] Comment on above: Order Comment: Speci men Type: BLOOD SPECIMENOrdering Facility: [facility] Address: [address] [place] [address] Performed By: #### 3 024-7, 3016-3 ####[facility] LABCLIA [id number] [place] [address] [place] TSH SerPl-aCncon 05-02-2025 TSH Qn 34.700 m[IU]/L High 0.270-4.200 [facility] Comment on above: Order Comment: Speci men Type: BLOOD SPECIMENOrdering Facility: [facility] Address: [address] [place] [address] Result Comment: If t he patient is , TSH reference range varies by gestational period: First Trimester (weeks 9-12): 0.180-2.990 mIU/L Second Trimester: 0.110-3.980 mIU/L Third Trimester: 0.480-4.710 mIU/L Juanjo Broussard et al. A Practical Approach for the Verifications and Determination of Site- and Trimester-Specific Reference Intervals for Thyroid Function tests in . Thyroid, 2019:29:3:412-420. Shilo E, et al. 2017 Guidelines of the [place] [employer] for the Diagnosis and Management of Thyroid Disease during and the . Thyroid, 2017:27:3:315-389. Performed By: #### 3 024-7, 3016-3 ####[facility] LABCLIA [id number] [place] [id number] [place] XR CHEST 2V FRONTAL/LATon XR CHEST 2V FRONTAL/LAT * * *Final Report* * * DATE OF EXAM: May 02 2025 3:18PM WOX [id number] - XR CHEST 2V FRONTAL/LAT / PROCEDURE REASON: Bilateral pleural effusion * * * * Physician Interpretation * * * * EXAMINATION: CHEST RADIOGRAPH (2 VIEW FRONTAL and LATERAL) CLINICAL HISTORY: Bilateral pleural effusion MQ: XC2_6 EXAM DATE/TIME: 05/02/2025 3:18 PM COMPARISON: No relevant prior studies available. RESULT: Lines, tubes, and devices: None. Lungs and pleura: No consolidation. No lung mass. No pleural effusion. No pneumothorax. Cardiomediastinal silhouette: Normal cardiomediastinal silhouette. Bones and soft tissues: Unremarkable. IMPRESSION: No acute radiographic abnormality. Vegetable Vendor: [employer] Transcribe Date/Time: May 02 2025 3:19P Dictated by : SRIDHAR ROSAS MD This examination was interpreted and the report reviewed and electronically signed by: SRIDHAR ROSAS MD on May 02 2025 3:20PM EST [id number] Normal [facility] XR Chest PA and Lateralon IMPRESSION: No acute radiographic abnormality. Vegetable Vendor: [facility] Transcribe Date/Time: May 02 2025 3:19P Dictated by : SRIDHAR ROSAS MD This examination was interpreted and the report reviewed and electronically signed by: SRIDHAR ROSAS MD on May 02 2025 3:20PM EST DIVISION OF RADIOLOGY * * *Final Report* * * DATE OF EXAM: May 02 2025 3:18PM WOX [id number] - XR CHEST 2V FRONTAL/LAT / PROCEDURE REASON: Bilateral pleural effusion * * * * Physician Interpretation * * * * EXAMINATION: CHEST RADIOGRAPH (2 VIEW FRONTAL & LATERAL) CLINICAL HISTORY: Bilateral pleural effusion MQ: XC2_6 EXAM DATE/TIME: 05/02/2025 3:18 PM COMPARISON: No relevant prior studies available. RESULT: Lines, tubes, and devices: None. Lungs and pleura: No consolidation. No lung mass. No pleural effusion. No pneumothorax. Cardiomediastinal silhouette: Normal cardiomediastinal silhouette. Bones and soft tissues: Unremarkable. DIVISION OF RADIOLOGY Provider, Trever Lockettvandana gaona [place] - 05/02/2025 * * *Final Report* * * DATE OF EXAM: May 02 2025 3:18PM WOX [id number] - XR CHEST 2V FRONTAL/LAT / PROCEDURE REASON: Bilateral pleural effusion * * * * Physician Interpretation * * * * EXAMINATION: CHEST RADIOGRAPH (2 VIEW FRONTAL & LATERAL) CLINICAL HISTORY: Bilateral pleural effusion MQ: XC2_6 EXAM DATE/TIME: 05/02/2025 3:18 PM COMPARISON: No relevant prior studies available. RESULT: Lines, tubes, and devices: None. Lungs and pleura: No consolidation. No lung mass. No pleural effusion. No pneumothorax. Cardiomediastinal silhouette: Normal cardiomediastinal silhouette. Bones and soft tissues: Unremarkable. IMPRESSION IMPRESSION: No acute radiographic abnormality. Vegetable Vendor: [employer] Transcribe Date/Time: May 02 2025 3:19P Dictated by : SRIDHAR ROSAS MD This examination was interpreted and the report reviewed and electronically signed by: SRIDHAR ROSAS MD on May 02 2025 3:20PM EST [facility] Radiology Study observation (narrative) [facility] XR Chest PA and LateralOrder ed By: [facility] Provider on 05-02-2025 [facility] GRE[facility] AND[facility] ([id number]) 1990 F Date Time Provider Department 04/26/25 NAGI RED During your visit today, we recorded the following information about you: Isabel Wiley, RN 04/26/2025 4:26 PM Signed Patient calls and states that Dr. Sheriff's office had a MRCP test done. Patient reports that it came back as Bilateral Pleural Effusion. Patient states that Dr. Cole's office wants PCP to advise on this. Testing was done on Wednesday. Results came back today. Nagi Red MD 04/26/2025 5:01 PM Signed Can we see if we can pull the MRCP report off [facility] system? If not can we contact DR. Sheriff office and have them fx us a copy of it. Jace Wallis MA 04/27/2025 10:52 AM Signed Printed and given to PCP. KAUSHAL Mazariegos Jeffrey A, MD 04/30/2025 8:51 PM Signed Let patient know I was able to get the ERCP report and review them. Is she having shortness of breath and or leg edema? Does she know the last time her TSH was checked? Jace Wallis MA 05/01/2025 12:14 PM Signed Spoke with patient. She indicated that she has been SOB for quite some time. We sent her for a breathing test and that was normal. She has not notice leg swelling but leg cramps in both legs pretty intense during the day. No night time cramps. Patient indicated that her last TSH was in our office 10/2024. She is seeing her Cancer doctor in June 2025. Patient indicated she is not sure her thyroid medication is working as well as she is still vomiting. She has been back to the ER for vomiting and pain. Dr. Cole indicated they feel the pain is from the fluid outside her lungs and she may have intermittent gastroparesis. They have maxed out the medications they can give her and referred back to PCP. How soon do you want to see the patient. KAUSHAL Mazariegos Jeffrey A, MD 05/01/2025 5:06 PM Signed In the next 1-2 weeks. I placed an order for her to get a chest x-ray and thyroid las as soon as possible. I also need a copy of the last office note for Dr. Cole. Jace Wallis MA 05/02/2025 10:26 AM Signed Patient notified and scheduled. She is coming in today to get xray and labs. 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 Problem List As Of Date 04/26/2025 Noted Resolved Irregular menstrual cycle [N92.6] 04/11/2007 Backache, unspecified [M54.9] 06/19/2008 07/27/2019 Other joint derangement, not elsewhere classifi*08/20/2008 04/25/2024 Other acquired deformity of toe [M20.5X9] 05/20/2009 07/27/2019 Lactose intolerance [E73.9] 03/31/2012 Anxiety, generalized [F41.1] 03/31/2012 Congenital heart defect [Q24.9] 03/31/2012 Lumbago [ (more content not included)... Normal [facility] MRCP Abdomen without Contras ton 04-24-2025 MRCP Abdomen without Contrast [facility] Imaging Services [address] [place] [address] MRCP Abdomen without Contrast MR#: [id number] Acct: [id number] Name: GRETA ANDRES Rep #: [id number] : 1990 F 35 From: Louie Godoy MD PCP: Dr. Nagi Red MD Status: DEP CLI Study: MRCP Abdomen without Contrast Date of Exam: Exam# [id number] Ordering Dr: Taylor Samuel ADDENDUM by Dr. Louie Godoy MD on 05/14/25 at 1837 3D post processing was performed and reviewed. Reading Location: [id number] 05/14/251836 Date cc: Dr. Nagi Red MD; JERI Marquez * Signed EXAM: MRCP ABDOMEN WITHOUT CONTRAST CLINICAL HISTORY: BILLIARY DILATATION COMPARISON: CT abdomen and pelvis 04/17/2025 and 2024 TECHNIQUE: MRI of the abdomen with exam tailored to evaluate the biliary tree and the pancreas was performed without contrast. Heavily T2-weighted MRCP sequences were also obtained. FINDINGS: Hepatobiliary Findings: Bile ducts: Mild intrahepatic biliary ductal dilatation in the right hepatic lobe is again unchanged. Incomplete imaging of the common bile duct and right intrahepatic bile duct confluence limits this evaluation. The common bile duct is normal in caliber with smooth tapering to the level of the ampulla. No obstructing mass or calculus is identified. Liver: Unremarkable. Gallbladder: Surgically absent. Pancreas: Unremarkable. Additional Findings: Lung bases: Trace bilateral pleural effusions, mfxoi-kotwpta-ailr-left.. Spleen: Unremarkable. Adrenals: Unremarkable. Kidneys and ureters: Unremarkable. Known renal stones are better evaluated on recent CT. Bowel: Visualized bowel are nondilated. Lymph nodes: Unremarkable. Peritoneum: Unremarkable. Vessels: Unremarkable. Retroperitoneum: Unremarkable. Abdominal wall: Unremarkable. Bones: Unremarkable. MRI/MRCP Abdomen without Contrast IMPRESSION: 1. Slightly limited exam. Mild right intrahepatic biliary ductal dilatation is again unchanged and may be normal postoperative appearance in this patient with prior cholecystectomy. No extrahepatic biliary ductal dilatation or stone. Correlate with symptoms and laboratory analysis. 2. Trace bilateral pleural effusions, [id number]-vzxm-left. Reading Location: [id number] CC: Dr. Nagi Red MD; JERI Marquez Vegetable Vendor: Signed Normal [facility] Abdomen/Pelvis W IV Cont ONL Yon 04-17-2025 Abdomen/Pelvis W IV Cont ONLY [facility] Imaging Services [address] [place] [id number] Abdomen/Pelvis W IV Cont ONLY MR#: [id number] Acct: [id number] Name: GRETA ANDRES Rep #: [id number] : 1990 F 35 From: Damaris Hernandez DO PCP: Dr. Nagi Red MD Status: REG ER Study: Abdomen/Pelvis W IV Cont ONLY Date of Exam: Exam# [id number] Ordering Dr: Ludin Adams DO PROCEDURE: ABDOMEN/PELVIS [...] Nagi Red MD; Dr. Ludin Adams DO Vegetable Vendor: Signed Normal [facility] CBC W/Diff, Automatedon 03-23 Absolute Lymph 1.57 X10 3/uL Normal 0.83-4.51 [facility] Comment on above: Performed By: #### M 100.2200 #### [facility] [address] [place], [address] Absolute Neut 8.8 X10 3/uL High 2.0-7.7 [facility] Comment on above: Performed By: #### M 100.2200 #### [facility] [address] [place], [place], [address] Basophils/100 WBC (Bld) 0.3 % Normal 0-1 [facility] Comment on above: Performed By: #### M 100.2200 #### [facility] [address] [place], [address] Eosinophils/100 WBC (Bld) 0.8 % Normal 0-5 [facility] Comment on above: Performed By: #### M 100.2200 #### [facility] [address] [place], [address] Erythrocyte distribution width (RBC) [Ratio] 14.2 % Normal 11.6-14.6 [facility] Comment on above: Performed By: #### M 100.2200 #### [facility] [address] [place], [address] Hematocrit (Bld) [Volume fraction] 44.0 % Normal 37-47 [facility] Comment on above: Performed By: #### M 100.2200 #### [facility] [address] [place], [address] Hemoglobin (Bld) [Mass/Vol] 15.2 g/dL High 12.0-15.0 [facility] Comment on above: Performed By: #### M 100.2200 #### [facility] [address] [place], [address] IG% 0.800 Normal 0.0-0.9 [facility] Comment on above: Result Comment: IG% - Immature Granulocytes (promyelocytes, myelocytes and metamyelocytes) > 1% indicates that a LEFT SHIFT is Present. Performed By: #### M 100.2200 #### [facility] [address] [place], [address] Lymphocytes/100 WBC (Bld) 14.1 % Low 19-41 [facility] Comment on above: Performed By: #### M 100.2200 #### [facility] [address] [place], [address] MCH (RBC) [Entitic mass] 28.2 pg Normal 27.0-32.0 [facility] Comment on above: Performed By: #### M 100.2200 #### [facility] [address] [place], [address] MCHC (RBC) [Mass/Vol] 34.5 g/dL Normal 32-36 [facility] Comment on above: Performed By: #### M 100.2200 #### [facility] [address] [place], [address] MCV (RBC) [Entitic vol] 81.6 fL Normal 81-99 [facility] Comment on above: Performed By: #### M 100.2200 #### [facility] [address] [place], [address] Monocytes/100 WBC (Bld) 5.0 % Normal 0-10 [facility] Comment on above: Performed By: #### M 100.2200 #### [facility] [address] [place], [address] Neutrophils/100 WBC (Bld) 79.0 % High 47-70 [facility] Comment on above: Performed By: #### M 100.2200 #### [facility] [address] [place], [address] Nucleated RBC (Bld) [#/Vol] 0 10*3/uL Normal 0-5 [facility] Comment on above: Performed By: #### M 100.2200 #### [facility] [address] [place], [address] Platelet mean volume (Bld) [Entitic vol] 9.9 fL Normal 6.2-12.0 [facility] Comment on above: Performed By: #### M 100.2199 #### [facility] [address] [place], [address] Platelets (Bld) [#/Vol] 246 10*3/uL Normal 150-450 [facility] Comment on above: Performed By: #### M 100.2199 #### [facility] [address] [place], [address] RBC (Bld) [#/Vol] 5.39 10*6/uL Normal 4.2-5.4 [facility] Comment on above: Performed By: #### M 100.2199 #### [facility] [address] [place], [address] RDW SD 41.6 fl Normal 35.1-43.9 [facility] Comment on above: Performed By: #### M 100.0 #### [facility] [address] [place], [address] WBC (Bld) [#/Vol] 11.1 10*3/uL High 4.4-11.0 [facility] Comment on above: Performed By: #### M 100.2200 #### [facility] [address] [place], [address] Comprehensive Metabolic Prof [facility] 04-17-2025 Albumin [Mass/Vol] 4.6 g/dL Normal 3.5-5.0 [facility] Comment on above: Performed By: #### M 100.2199 #### [facility] [address] [place], [address] Albumin/Globulin [Mass ratio] 1.3 {ratio} Normal 0.9-2.4 [facility] Comment on above: Performed By: #### M 100.2200 #### [facility] [address] [place], [address] ALK PHOS 90 U/L Normal 35-104 [facility] Comment on above: Performed By: #### M 100.2200 #### [facility] [address] [place], [address] ALT [Catalytic activity/Vol] 20 U/L Normal <=34 [facility] Comment on above: Performed By: #### M 100.2200 #### [facility] [address] [place], [address] AST [Catalytic activity/Vol] 29 U/L Normal <=31 [facility] Comment on above: Result Comment: Hemo lysis present, Results??could be affected. ?? Performed By: #### M 100.0 #### [facility] [address] [place], [address] Bilirubin [Mass/Vol] 0.75 mg/dL Normal 0.00-1.30 [facility] Comment on above: Performed By: #### M 100.2200 #### [facility] [address] [place], [address] BUN/CRE 11.4 RATIO Normal 10-20 [facility] Comment on above: Performed By: #### M 100.2200 #### [facility] [address] [place], [address] Calcium [Mass/Vol] 8.6 mg/dL Normal 7.6-11.0 [facility] Comment on above: Performed By: #### M 100.2200 #### [facility] [address] [place], [address] Chloride [Moles/Vol] 102 mmol/L Normal 98-108 [facility] Comment on above: Performed By: #### M 100.2200 #### [facility] [address] [place], [address] CO2 [Moles/Vol] 23.4 mmol/L Normal 21.0-32.0 [facility] Comment on above: Performed By: #### M 100.2200 #### [facility] [address] [place], [address] Creatinine [Mass/Vol] 0.88 mg/dL Normal 0.70-1.20 [facility] Comment on above: Performed By: #### M 100.2200 #### [facility] [address] [place], [address] ECRCL 98.58 ml/min Normal 50-250 [facility] Comment on above: Performed By: #### M 100.2200 #### [facility] [address] [place], [address] GAP 14 Normal 5-15 [facility] Comment on above: Performed By: #### M 100.2200 #### [facility] [address] [place], [address] GFR/1.73 sq M.predicted among non-blacks MDRD (S/P/Bld) [Vol rate/Area] 88 mL/min/{1.73_m2} Normal >60 [facility] Comment on above: Result Comment: mL/m in/1.73m2 CKD-EPI Creatinine Equation (2020) Performed By: #### M 100.2200 #### [facility] [address] [place], [address] Globulin (S) [Mass/Vol] 3.5 g/dL Normal 2.2-4.2 [facility] Comment on above: Performed By: #### M 100.2200 #### [facility] [address] [place], [address] Glucose [Mass/Vol] 85 mg/dL Normal 70-99 [facility] Comment on above: Performed By: #### M 100.2200 #### [facility] [address] [place], [address] Potassium [Moles/Vol] 3.5 mmol/L Normal 3.3-5.1 [facility] Comment on above: Result Comment: Hemo lysis present, Results??could be affected. ?? Performed By: #### M 100.2200 #### [facility] [address] [place], [address] Sodium [Moles/Vol] 139 mmol/L Normal 133-145 [facility] Comment on above: Performed By: #### M 100.2200 #### [facility] [address] [place], [address] T PROT 8.0 g/dL Normal 5.9-8.4 [facility] Comment on above: Performed By: #### M 100.2200 #### [facility] [address] [place], [address] Urea nitrogen [Mass/Vol] 10 mg/dL Normal 4-19 [facility] Comment on above: Performed By: #### M 100.2200 #### [facility] [address] [place], [address] Emergency Department Summary on 04-17-2025 Emergency Department Summary [facility] Medical Records Department [address] [place] [address] Emergency Department Summary 04/17/25 MR#: [id number] Acct: [id number] Name: GRETA ANDRES Rep #: [id number] : 1990 35 From: Ludin Adams DO [...] further evaluation management. Denies any recent contacts [facility] Medical History Kidney stone Cancer Anemia Migraine [...] 1 - 2 puff inhalation Q4H PRN MO N 11/06/19 Unknown History aerosol inhaler Sob [...] tabs promethazine 25 mg rectal 25 mg MO Q6H PRN nausea and Unknown Rx suppository [...] Exam Na (more content not included)... Normal [facility] Lipaseon 04-17-2025 Lipase [Catalytic activity/Vol] 43 U/L Normal 13-75 [facility] Comment on above: Result Comment: Ozzie arrington note: LIPASE revised reference range effective 23. New Lipase methodology. Expected to produce lower values than the previous assay method. NEW Reference Range: 13 - 75 U/L Performed By: #### L 501.2450, L700.6800 #### [facility] [address] [place], [address] ,Serum,hCG Quali.on 04-17-2025 HCG, SERUM QUAL Negative Normal [facility] Comment on above: Performed By: #### M 100.2200 #### [facility] [address] [place], [address] HCG, SERUM QUAL Normal [facility] Comment on above: Result Comment: Sahil elled via OM: Ordered Performed By: #### L 501.2450, L700.6800 #### [facility] [address] [place], [address] INTERNAL QC OK? Normal [facility] Comment on above: Result Comment: Sahil tripathied via OM: Ordered Performed By: #### L 501.2450, L700.6800 #### [facility] [address] [place], [address] RECORD KIT LOT# Normal [facility] Comment on above: Result Comment: Sahil sawant via OM: Ordered Performed By: #### L 501.2450, L700.6800 #### [facility] [address] [place], [address] Urinalysis, Completeon 04-17 EPI,SQUAMOUS 5-10 SEEN Normal 5-10 [facility] Comment on above: Order Comment: CLEAN CATCH Performed By: #### L 501.2450, L700.6800 #### [facility] [address] [place], [address] RBC 0-5 SEEN Normal 0-5 [facility] Comment on above: Order Comment: CLEAN CATCH Performed By: #### L 501.2450, L700.6800 #### [facility] [address] [place], [address] WBC 5-10 SEEN Normal 0-5 [facility] Comment on above: Order Comment: CLEAN CATCH Performed By: #### L 501.2450, L700.6800 #### [facility] [address] [place], [address] BACTERIA 0 SEEN Normal None Seen [facility] Comment on above: Order Comment: CLEAN CATCH Performed By: #### L 501.2450, L700.6800 #### [facility] [address] [place], [address] Mucus Ql (Urine sed) 0 SEEN Normal [facility] Comment on above: Order Comment: CLEAN CATCH Performed By: #### L 501.2450, L700.6800 #### [facility] [address] [place], [address] CNPSara 04-13-2025 MARGARITAN Telephone (CHUCHO) GRETA ANDRES ([id number]) 1990 F Date Time Provider Department 04/13/25 CARLIE BROWNLEE During your visit today, we recorded the following information about you: Lisa Edmond 04/13/2025 2:43 PM Signed Huy with [facility] called to report Patient has been prescribed Lorazepam by another provider. Pharmacy wants to check if Carlie Brownlee CNP is agreeable to Patient taking Tramadol along with Lorazepam? Please advise and call Cooper at [phone] with recommendations. Carlie Powell, VINYL INSTALLER.DRAMATIC ARTS HISTORIAN 04/13/2025 3:11 PM Signed I am okay with this. She has been on Tramadol for years! Carlie Bautista, DEANDRE 04/13/2025 3:21 PM Signed Message from provider [...] Status:Closed by CARLIE BAUTISTA on 04/13/25 Normal [facility] Gastroenterology Visit Repor ton 04-10-2025 Gastroenterology Visit Report [facility] [address] [place] [address] OFFICE VISIT Date of Service: 04/10/25 MR#: [id number] Acct: [id number] Name: GRETA ANDRES Rep #: [id number] : 1990 Provider: JERI Marquez Age/Sex: 35/F Location: [facility] Status: Signed Intake Vital Signs 03/19/25 10:23 [...] if its from stones seen in imaging. PFSH Medical History Kidney stone Cancer Anemia [...] medications she is on. Biochemical work up .7.25; WBC H, CRP H 10.4, LFTs wnl, ESR wnl 4 hour GES; normal [facility] ED 4. with right sided flank pain CT abd/pelvi1. No clear acute findings. Specifically, no hydronephrosis or ureteral calculus is identified. Bilateral nonobstructing intrarenal calculi up to 4 mm on the RIGHT. 2. Mild RIGHT lobe intrahepatic biliary dilatation is of uncertain significance. Correlate with LFTs and for a history of possible prior cholangitis. Consider outpatient MRCP as indicated. 3. Additional description as aboves OV 5..25 Pt continues to have nausea and vomiting [...] and leg (more content not included)... Normal [facility] Abdomen Single Viewon 2024 Abdomen Single View [facility] Imaging Services [address] [place], [place] [id number] Abdomen Single View MR#: [id number] Acct: [id number] Name: GRETA ANDRES Rep #: [id number] : 1990 F 35 From: Louie Godoy MD PCP: Dr. Nagi Red MD Status: REG CLI Study: Abdomen Single View Date of Exam: 04/09/25 Exam# [id number] Ordering Dr: Kate Gonzáles MD PROCEDURE: ABDOMEN [...] pathologic calcification identified by radiographs. Reading Location: [id number] CC: Dr. Kate Gonzáles MD; Dr. Nagi eRd MD Vegetable Vendor: Signed [facility] HISTORY PHYSICALon HISTORY PHYSICAL HNO ID: [id number] Author: JUAN DANIEL CONTRERAS MD Service: Pain Management Author Type: [...] 08/07/2013 Bipolar 1 disorder (HCC) 02/14/2018 Seeing [facility] Behavioral Medicine as of 01/2018 [...] spinal stenosis 04/25/2024 Lupus (systemic lupus erythematosus) ([facility]) Migraine without aura and without status migrainosus, not intractable 05/20/2017 Multiple thyroid nodules 07/26/2019 Neoplasm of uncertain behavior of skin of back Obesity, Class I, BMI 30-34.9 03/03/2023 Other and unspecified ovarian cyst Ovarian cyst Other joint derangement, not elsewhere classified, lower leg 08/20/2008 Papillary thyroid carcinoma ([facility]) 07/21/2019 PMH - PAST MEDICAL HISTORY OF r thumb broken Post-surgical hypothyroidism 08/25/2019 Primary thyroid papillary carcinoma ([facility]) 07/21/2019 PTSD (post-traumatic stress disorder) 02/14/2018 PTSD (post-traumatic stress disorder) S/P total thyroidectomy 07/31/2019 Sacroiliitis, not elsewhere classified ([facility]) 02/20/2013 SI (sacroiliac) joint dysfunction 11/06/2015 Spinal [...] conjunction with observation. (more content not included)... [facility] OPERATIVE NOon 04-03-2025 OPERATIVE NO HNO ID: [id number] Author: JUAN DANIEL CONTRERAS MD Service: Pain Management Author Type: Physician Type: Operative Report Filed: 04/03/2025 10:16 Note Text: PATIENT NAME: Greta Andres SERVICE DATE: 04/03/2025 Preoperative Diagnosis: Right SI joint dysfunction Right SI joint pain Postoperative Diagnosis: Same Health Inspector(s): None, I performed the entire procedure. ANESTHESIA: [...] RF ablation of the SI joint per [place] [employer]. PROCEDURE: Right SI joint BIPOLAR RADIOFREQUENCY [...] time and personally performed the procedure. SIGNATURE: Juan Daniel Contreras MD DATE: April 03, 2025 TIME: 10:15 AM [facility] Gastric Emptying Study - 4 H Gamaliel 03-22-2025 Gastric Emptying Study - 4 HR [facility] Imaging Services [address] [place] [id number] Gastric Emptying Study - 4 HR MR#: [id number] Acct: [id number] Name: GRETA ANDRES Rep #: [id number] : 1990 F 35 From: Robert Rey PCP: Dr. Nagi Red MD Status: REG CLI Study: Gastric Emptying Study - 4 HR Date of Exam: Exam# [id number] Ordering Dr: Taylor Samuel PROCEDURE: GASTRIC EMPTYING [...] geometric mean was used to calculate a [id number]-avoin. Medications taken in the past 24 hours [...] in solid phase gastric emptying. Reading Location: [place] [address] CC: Dr. Nagi Red MD; JERI Marquez Vegetable Vendor: Signed Normal [facility] Abdomen/Pelvis W IV Cont ONL Yon 03-19-2025 Abdomen/Pelvis W IV Cont ONLY [facility] Imaging Services [address] [place] [address] Abdomen/Pelvis W IV Cont ONLY MR#: [id number] Acct: [id number] Name: GRETA ANDRES Rep #: [id number] : 1990 F 35 From: Zackary Navarrete MD PCP: Dr. Nagi Red MD Status: REG ER Study: Abdomen/Pelvis W IV Cont ONLY Date of Exam: Exam# [id number] Ordering Dr: Ester Blas PROCEDURE: ABDOMEN/PELVIS W [...] 3. Additional description as above. Reading Location: [id number] CC: Dr. Nagi Red MD; JERI Singleton Vegetable Vendor: Signed Normal [facility] CBC W/Diff, Automatedon 04-2 Absolute Lymph 2.58 X10 3/uL Normal 0.83-4.51 [facility] Comment on above: Performed By: #### L 500.4050, L100.0100, L700.6800 #### [facility] [address] [place], [address] Absolute Neut 6.5 X10 3/uL Normal 2.0-7.7 [facility] Comment on above: Performed By: #### L 500.4050, L100.0100, L700.6800 #### [facility] [address] [place], [address] Basophils/100 WBC (Bld) 0.3 % Normal 0-1 [facility] Comment on above: Performed By: #### L 500.4050, L100.0100, L700.6800 #### [facility] [address] [place], [address] Eosinophils/100 WBC (Bld) 3.3 % Normal 0-5 [facility] Comment on above: Performed By: #### L 500.4050, L100.0100, L700.6800 #### [facility] [address] [place], [address] Erythrocyte distribution width (RBC) [Ratio] 13.4 % Normal 11.6-14.6 [facility] Comment on above: Performed By: #### L 500.4050, L100.0100, L700.6800 #### [facility] [address] [place], [address] Hematocrit (Bld) [Volume fraction] 41.4 % Normal 37-47 [facility] Comment on above: Performed By: #### L 500.4050, L100.0100, L700.6800 #### [facility] [address] [place], [address] Hemoglobin (Bld) [Mass/Vol] 14.4 g/dL Normal 12.0-15.0 [facility] Comment on above: Performed By: #### L 500.4050, L100.0100, L700.6800 #### [facility] [address] [place], [address] IG% 0.600 Normal 0.0-0.9 [facility] Comment on above: Result Comment: IG% - Immature Granulocytes (promyelocytes, myelocytes and metamyelocytes) > 1% indicates that a LEFT SHIFT is Present. Performed By: #### L 500.4050, L100.0100, L700.6800 #### [facility] [address] [place], [address] Lymphocytes/100 WBC (Bld) 26.3 % Normal 19-41 [facility] Comment on above: Performed By: #### L 500.4050, L100.0100, L700.6800 #### [facility] [address] [place], [address] MCH (RBC) [Entitic mass] 28.1 pg Normal 27.0-32.0 [facility] Comment on above: Performed By: #### L 500.4050, L100.0100, L700.6800 #### [facility] [address] [place], [address] MCHC (RBC) [Mass/Vol] 34.8 g/dL Normal 32-36 [facility] Comment on above: Performed By: #### L 500.4050, L100.0100, L700.6800 #### [facility] [address] [place], [address] MCV (RBC) [Entitic vol] 80.7 fL Low 81-99 [facility] Comment on above: Performed By: #### L 500.4050, L100.0100, L700.6800 #### [facility] [address] [place], [address] Monocytes/100 WBC (Bld) 3.8 % Normal 0-10 [facility] Comment on above: Performed By: #### L 500.4050, L100.0100, L700.6800 #### [facility] [address] [place], [address] Neutrophils/100 WBC (Bld) 65.7 % Normal 47-70 [facility] Comment on above: Performed By: #### L 500.4050, L100.0100, L700.6800 #### [facility] [address] [place], [address] Nucleated RBC (Bld) [#/Vol] 0 10*3/uL Normal 0-5 [facility] Comment on above: Performed By: #### L 500.4050, L100.0100, L700.6800 #### [facility] [address] [place], [address] Platelet mean volume (Bld) [Entitic vol] 10.0 fL Normal 6.2-12.0 [facility] Comment on above: Performed By: #### L 500.4050, L100.0100, L700.6800 #### [facility] [address] [place], [address] Platelets (Bld) [#/Vol] 252 10*3/uL Normal 150-450 [facility] Comment on above: Performed By: #### L 500.4050, L100.0100, L700.6800 #### [facility] [address] [place], [address] RBC (Bld) [#/Vol] 5.13 10*6/uL Normal 4.2-5.4 [facility] Comment on above: Performed By: #### L 500.4050, L100.0100, L700.6800 #### [facility] [address] [place], [address] RDW SD 39.2 fl Normal 35.1-43.9 [facility] Comment on above: Performed By: #### L 500.4050, L100.0100, L700.6800 #### [facility] [address] [place], [address] WBC (Bld) [#/Vol] 9.8 10*3/uL Normal 4.4-11.0 [facility] Comment on above: Performed By: #### L 500.4050, L100.0100, L700.6800 #### [facility] [address] [place], [address] CNPNon 03-19-2025 CNPN Telephone (PNMDNA) GRETA ANDRES ([id number]) 1990 F Date Time Provider Department 03/19/25 CARLIE BROWNLEE During your visit today, we recorded the following information about you: Roselia Verdin 03/19/2025 1:45 PM Signed Patient was seen at [facility] for kidney stones today. 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 Contreras. Call [phone]. Patient is requesting a return call as soon as possible, she is experiencing significant pain from stones. Vinh Pierson MA 03/19/2025 1:55 PM Signed Patient receives Tramadol 50 mg tablet: take 1-2 pill PO every day for pain. Called and spoke with the patient and she states they prescribed her hydrocodone-acetaminophen 5-325 #8 pills. Routing to provider for review. Carlie Brownlee, KIMBERLEY.DRAMATIC ARTS HISTORIAN 03/19/2025 1:57 PM Signed Hold the tramadol while taking the Girard. I am okay with this Vinh Pierson [...] Date Reviewed: 01/05/2025 Reviewed by: Tomas Alexis APRN.DRAMATIC ARTS HISTORIAN - Fully Assessed Reason for Visit: Medication Question [2118] Prescriptions as of 03/19/2025 - traMADol (ULTRAM) [...] by mouth two times a day. - Rjpfp-3-JFO-EPA-Fish Oil (FISH OIL) 1,000 (120-180) mg cap [...] 03/03/2023 O (more content not included)... Normal [facility] Metabolic [facility] ilon 03-19-2025 Albumin [Mass/Vol] 4.2 g/dL Normal 3.5-5.0 [facility] Comment on above: Performed By: #### M 100.2200 #### [facility] [address] [place], [address] Albumin/Globulin [Mass ratio] 1.3 {ratio} Normal 0.9-2.4 [facility] Comment on above: Performed By: #### M 100.2200 #### [facility] [address] [place], [address] ALK PHOS 77 U/L Normal 35-104 [facility] Comment on above: Performed By: #### M 100.2200 #### [facility] [address] [place], [address] ALT [Catalytic activity/Vol] 22 U/L Normal <=34 [facility] Comment on above: Performed By: #### M 100.2200 #### [facility] [address] [place], [address] AST [Catalytic activity/Vol] 29 U/L Normal <=31 [facility] Comment on above: Result Comment: Hemo lysis present, Results??could be affected. ?? Performed By: #### M 100.2200 #### [facility] [address] [place], [address] Bilirubin [Mass/Vol] 0.33 mg/dL Normal 0.00-1.30 [facility] Comment on above: Performed By: #### M 100.2200 #### [facility] [address] [place], [address] BUN/CRE 8.1 RATIO Low 10-20 [facility] Comment on above: Performed By: #### M 100.2199 #### [facility] [address] [place], [address] Calcium [Mass/Vol] 9.0 mg/dL Normal 7.6-11.0 [facility] Comment on above: Performed By: #### M 100.2199 #### [facility] [address] [place], [address] Chloride [Moles/Vol] 107 mmol/L Normal 98-108 [facility] Comment on above: Performed By: #### M 100.2199 #### [facility] [address] [place], [address] CO2 [Moles/Vol] 21.9 mmol/L Normal 21.0-32.0 [facility] Comment on above: Performed By: #### M 100.2199 #### [facility] [address] [place], [address] Creatinine [Mass/Vol] 0.83 mg/dL Normal 0.70-1.20 [facility] Comment on above: Performed By: #### M 100.2199 #### [facility] [address] [place], [address] ECRCL 104.09 ml/min Normal 50-250 [facility] Comment on above: Performed By: #### M 100.2199 #### [facility] [address] [place], [address] GAP 11 Normal 5-15 [facility] Comment on above: Performed By: #### M 100.220 #### [facility] [address] [place], [address] GFR/1.73 sq M.predicted among non-blacks MDRD (S/P/Bld) [Vol rate/Area] 94 mL/min/{1.73_m2} Normal >60 [facility] Comment on above: Result Comment: mL/m in/1.73m2 CKD-EPI Creatinine Equation (2020) Performed By: #### M 100.2200 #### [facility] [address] [place], [address] Globulin (S) [Mass/Vol] 3.3 g/dL Normal 2.2-4.2 [facility] Comment on above: Performed By: #### M 100.2200 #### [facility] [address] [place], [address] Glucose [Mass/Vol] 105 mg/dL High 70-99 [facility] Comment on above: Performed By: #### M 100.2200 #### [facility] [address] [place], [address] Potassium [Moles/Vol] 4.2 mmol/L Normal 3.3-5.1 [facility] Comment on above: Result Comment: Hemo lysis present, Results??could be affected. ?? Performed By: #### M 100.2200 #### [facility] [address] [place], [address] Sodium [Moles/Vol] 141 mmol/L Normal 133-145 [facility] Comment on above: Performed By: #### M 100.2200 #### [facility] [address] [place], [address] T PROT 7.4 g/dL Normal 5.9-8.4 [facility] Comment on above: Performed By: #### M 100.2200 #### [facility] [address] [place], [address] Urea nitrogen [Mass/Vol] 7 mg/dL Normal 4- [facility] Comment on above: Performed By: #### M 100.3328 #### [facility] [address] [place], [address] Emergency Department Summary on 03-19-2025 Emergency Department Summary [facility] Medical Records Department [address] [place] [address] Emergency Department Summary 03/19/25 MR#: [id number] Acct: [id number] Name: GRETA ANDRES Rep #: [id number] : 1990 35 From: Ester WILCOX PCP: [...] of kidney stones and was seen at [facility] yesterday and had a CT scan of the abdomen and pelvis that did not show any evidence of ureteral stone. She reports she has had multiple episodes of nausea and vomiting over the past 6 days. She denies fevers, chills, urinary symptoms, diarrhea, and hematemesis. [facility] Medical History Kidney stone Cancer Anemia Migraine [...] 1 - 2 puff inhalation Q4H PRN MO N 11/06/19 Unknown History aerosol inhaler Sob [...] Room Air (more content not included)... Normal [facility] ,Serum,hCG Quali.on 03-19-2025 HCG, SERUM QUAL Negative Normal [facility] Comment on above: Performed By: #### M 100.2200 #### [facility] [address] [place], [address] Urinalysis, Completeon 03-19 WBC 0-5 SEEN Normal 0-5 [facility] Comment on above: Order Comment: GREGG CTOR TO SPECIFY Performed By: #### L 400.0001 #### [facility] [address] [place], [address] EPI,SQUAMOUS 10-25 SEEN Normal 5-10 [facility] Comment on above: Order Comment: GREGG CTOR TO SPECIFY Performed By: #### L 400.0001 #### [facility] [address] [place], [address] BACTERIA 0 SEEN Normal None Seen [facility] Comment on above: Order Comment: GREGG CTOR TO SPECIFY Performed By: #### L 400.0001 #### [facility] [address] [place], [address] Mucus Ql (Urine sed) 0 SEEN Normal [facility] Comment on above: Order Comment: COLLE CTOR TO SPECIFY Performed By: #### L 400.0001 #### [facility] [address] [place], [address] RBC 0 SEEN Normal 0-5 [facility] Comment on above: Order Comment: COLLE CTOR TO SPECIFY Performed By: #### L 400.0001 #### [facility] [address] [place], [place], [address] CBC + DIFFon 03-18-2025 Baso # 0.03 x10EE3/UL Normal 0.00 - 0.10 [facility] Comment on above: Performed By: #### 2 22065 #### [facility],[address] [place] [address] Basophils/100 WBC (Bld) 0.2 % Normal 0.0 - 2.0 [facility] Comment on above: Performed By: #### 2 50330 #### [address] [address] CBC + DIFF Normal [facility] Comment on above: Result Comment: CBC- COMPLETE BLOOD COUNT Performed By: #### 2 96889 #### [facility],[address] [place] [address] EO # 0.41 x10EE3/UL Normal 0.00 - 0.50 [facility] Comment on above: Performed By: #### 2 35417 #### [facility],[address] [place] [address] Eosinophils/100 WBC (Bld) 3.8 % Normal 0.0 - 7.0 [facility] Comment on above: Performed By: #### 2 03567 #### [facility],[address] [place] [address] Erythrocyte distribution width (RBC) [Ratio] 14.3 % Normal 12.0 - 15.6 [facility] Comment on above: Performed By: #### 2 11578 #### [place] [address] Hematocrit (Bld) [Volume fraction] 39.6 % Normal 34.0 - 46.0 [facility] Comment on above: Performed By: #### 2 14861 #### [facility],[address] [place] [address] Hemoglobin (Bld) [Mass/Vol] 14.0 g/dL Normal 12.0 - 16.0 [facility] Comment on above: Performed By: #### 2 83798 #### [facility],[address] [place] [address] Lymph # 3.07 x10EE3/UL High 0.80 - 2.80 [facility] Comment on above: Performed By: #### 2 26232 #### [place] [address] Lymphocytes/100 WBC (Bld) 27.8 % Normal 20.0 - 45.0 [facility] Comment on above: Performed By: #### 2 26711 #### [place] [address] MANUAL DIFF N/A Normal [facility] Comment on above: Performed By: #### 2 21557 #### [facility],[address] [place] [address] MCH (RBC) [Entitic mass] 28 pg Normal 27 - 33 [facility] Comment on above: Performed By: #### 2 22261 #### [place] [address] MCHC 35 X10 3 Normal 32 - 36 [facility] Comment on above: Performed By: #### 2 22171 #### [place] [address] MCV (RBC) [Entitic vol] 80 fL Normal 80 - 99 [facility] Comment on above: Performed By: #### 2 59980 #### [address] [address] [place] # 0.58 x10EE3/UL Normal 0.20 - 1.00 [facility] Comment on above: Performed By: #### 2 95765 #### [facility],[address] [place] [address] MONOS % 5.2 % Normal 0.0 - 10.0 [facility] Comment on above: Performed By: #### 2 53372 #### [address] [address] Morphology Cristi (Bld) [Interp] N/A Normal [facility] Comment on above: Performed By: #### 2 79229 #### [place] [address] Neut # 6.93 x10EE3/UL Normal 1.50 - 7.10 [facility] Comment on above: Performed By: #### 2 70978 #### [address] [address] Neutrophils/100 WBC (Bld) 62.9 % Normal 46.0 - 76.0 [facility] Comment on above: Performed By: #### 2 62136 #### [facility],[address] [place] [address] PLATELET 239 x10EE3/UL Normal 150 - 450 [facility] Comment on above: Performed By: #### 2 00775 #### [address] [address] Platelet mean volume (Bld) [Entitic vol] 8.1 fL Normal 6.6 - 10.5 [facility] Comment on above: Result Comment: AUTO MATED DIFFERENTIAL Performed By: #### 2 76398 #### [facility],[address] [place] [address] RBC 4.97 x 10EE6/UL Normal 4.10 - 5.30 [facility] Comment on above: Performed By: #### 2 00936 #### [facility],[address] [place] [address] WBC 11.0 x 10EE3/UL High 4.5 - 10.8 [facility] Comment on above: Performed By: #### 2 36172 #### [facility],[address] [place] [address] CMP with eGFRon 03-18-2025 AGE 35 years Normal [facility] Comment on above: Performed By: #### 2 78322 ####[facility],[address] [place] [address] Albumin [Mass/Vol] 3.4 g/dL Normal 3.4 - 5.0 [facility] Comment on above: Performed By: #### 2 56554 ####[facility],[address] [place] [address] Albumin/Globulin [Mass ratio] 0.9 {ratio} Normal 0.9 - 1.6 [facility] Comment on above: Performed By: #### 2 53042 ####[facility],[address] [place] [address] ALK PHOS 69 U/L Normal 46 - 116 [facility] Comment on above: Performed By: #### 2 99789 ####[facility],[address] [place] [address] ALT [Catalytic activity/Vol] 25 U/L Normal 16 - 63 [facility] Comment on above: Performed By: #### 2 49962 ####[facility],[address] [place] [address] Anion gap [Moles/Vol] 11 mmol/L Normal 10 - 20 [facility] Comment on above: Performed By: #### 2 27879 ####[facility],[address] [place] [address] AST [Catalytic activity/Vol] 20 U/L Normal 13 - 39 [facility] Comment on above: Performed By: #### 2 17464 ####[facility],[address] [place] [address] B/C RATIO 11 ratio Normal 0 - 30 [facility] Comment on above: Performed By: #### 2 57774 ####[facility],[address] [place] [address] Bilirubin [Mass/Vol] 0.3 mg/dL Normal 0.2 - 1.0 [facility] Comment on above: Performed By: #### 2 46934 ####[facility],[address] [place] [address] Calcium [Mass/Vol] 8.6 mg/dL Normal 8.5 - 10.1 [facility] Comment on above: Performed By: #### 2 43342 ####[facility],[address] [place] [address] Chloride [Moles/Vol] 108 mmol/L High 98 - 107 [facility] Comment on above: Performed By: #### 2 34184 ####[facility],[address] [place] [address] CMP with eGFR Normal [facility] Comment on above: Result Comment: COMP REHENSIVE METABOLIC PANEL Performed By: #### 2 10371 ####[facility],[address] [place] [address] CO2 [Moles/Vol] 25.4 mmol/L Normal 21.0 - 32.0 [facility] Comment on above: Performed By: #### 2 42129 ####[facility],[address] [place] [address] Creatinine [Mass/Vol] 0.81 mg/dL Normal 0.55 - 1.02 [facility] Comment on above: Performed By: #### 2 27725 ####[facility],[address] [place] [address] GFR/1.73 sq M.predicted among non-blacks MDRD (S/P/Bld) [Vol rate/Area] mL/min/{1.73_m2} Normal 60 - 999 [facility] Comment on above: Performed By: #### 2 52863 ####[facility],[address] [place] [address] Result Comment: ACCO RDING TO THE NATIONAL KIDNEY DISEASE EDUCATION PROGRAM(NKDE), A NORMAL eGFR IS A VALUE GREATER THAN OR EQUAL TO 60 ML/MIN/1.73 SQ METERS. CHRONIC KIDNEY DISEASE: <60mL/MIN/1.73 SQ METERS KIDNEY FAILURE: <15mL/MIN/1.73 SQ METERS THIS TEST SHOULD ONLY BE USED FOR PATIENTS 18 YEARS OF AGE AND OLDER. Globulin (S) [Mass/Vol] 3.9 g/dL High 1.5 - 3.8 [facility] Comment on above: Performed By: #### 2 58327 ####[facility],[address] [place] [address] Glucose [Mass/Vol] 87 mg/dL Normal 74 - 106 [facility] Comment on above: Performed By: #### 2 58253 ####[facility],[address] [place] [address] Potassium [Moles/Vol] 3.7 mmol/L Normal 3.5 - 5.1 [facility] Comment on above: Performed By: #### 2 49529 ####[facility],[address] [place] [address] Protein [Mass/Vol] 7.3 g/dL Normal 6.4 - 8.2 [facility] Comment on above: Performed By: #### 2 95457 ####[facility],[address] [place] [address] Sodium [Moles/Vol] 141 mmol/L Normal 136 - 145 [facility] Comment on above: Performed By: #### 2 68058 ####[facility],[address] [place] [address] Urea nitrogen [Mass/Vol] 9 mg/dL Normal 7 - 18 [facility] Comment on above: Performed By: #### 2 66824 ####[facility],[address] [place] [address] KUB (KIDNEY STONE PROTOCO L)on 03-18-2025 CT KUB (KIDNEY STONE PROTOCOL) [place] [address] Patient: GRETA ANDRES Phone#: : 1990 Age: 35 Gender: F Pt. Type: ER Account: [id number] Location: [facility] Ordering: IRAM SARMIENTO Exam Date: 03/18/2025/14:29 Family Phys: NAGI RED Charge Code: 659912 Physician: Bradley Order #: [id number] Dose#: 10.90 mGy PROCEDURE: CT ABDOMEN AND PELVIS WITHOUT CONTRAST COMPARISON: [facility], CT, KUB W/O CON, 03/28/2023, 13:15. [...] 35 Gender: F Pt. Type: ER Account: [id number] Location: [facility] Ordering: IRAM SARMIENTO Exam Date: 03/18/2025/14:29 Family Phys: NAGI RED Charge Code: 043329 Physician: Bradley Order #: [id number] Dose#: 10.90 mGy LUNG BASES: Normal. No visible pulmonary or pleural disease. OTHER: Negative. CONCLUSION: 1. Nonobstructing bilateral renal calculi are present. There is no evidence of hydronephrosis or ureteral calculus. Dictated by: Fabiola Cantrell MD on 03/18/2025 at 19:26 Approved by: Fabiola Cantrell MD on 03/18/2025 at 19:30 Normal [facility] ED MED ADMINISTRATION DETAIL on 03-18-2025 ED MED ADMINISTRATION DETAIL [employer] Medication Administration Record [address] [address] [id number] 03/18/2025 Patient: GRETA ANDRES Sex: Female : 1990 Age: 35y MEASUREMENTS: Wt: 86.2 kg, Ht/Grzegorz: 65.0 in, BMI: 31.62 ALLERGIES: Adderall, morphine Medication Ordered Medication Administration Date/Time IV NS 0.9 % 1000 13:31 03/18 IV NS 0.9 % 1000 mL started in bag#1 1000 mL at Started mL at 500 mL/hr 500 mL/hr over 2 hour(s) via Site# 1. Allergies verified and 13:31 03/18/2025 (NOW x1) confirmed 5 rights. IV patency [...] 13:43 Tiffani Cheng R.N. 1 of 2 [employer] Medication Ordered Medication Administration Date/Time Zofran IVP [...] pre-medication administration. IVP given by EMT-P. Information Kelly reviewed with patient. Verbalizes understanding. Medication Scanned Wastage: 15 mg wasted. - 14:58 Sudheer CormierP. HYDROmorphone 15:38 03/18 HYDROmorphone (Dilaudid) IVP 0.5 [...] Tiffani Cheng R.N. 2 of 2 Normal [facility] ED NURSES CLINICAL NOTEon ED NURSES CLINICAL NOTE Nurse Narrative Nurse Clinical Narrative [address] [place] [id number] 03/18/2025 12:53:00 Patient: GRETA ANDRES Sex: Female [...] kg, Ht/Grzegorz: 65.0 in, BMI: 31.62 -- 13:03/18/25 DEBORA Guicho Huffman R.N. Medications: promethazine 12.5 mg tablet -- 13:04 03/18/25 [facility] Guicho Huffman R.N. sumatriptan 50 mg tablet -- 13:03/18/25 [facility] Guicho Huffman R.N. tramadol 50 mg tablet -- 13:03/18/25 [facility] Guicho Huffman R.N. 1 of 4 Nurse Narrative levothyroxine 200 mcg tablet -- 13:03/18/25 [facility] Guicho Huffman R.N. propranolol 20 mg tablet -- 13:03/18/25 [facility] Guicho Huffman R.N. levothyroxine 25 mcg tablet -- 13:03/18/25 [facility] Guicho Huffman R.N. prazosin 2 mg capsule -- 13:03/18/25 [facility] Guicho Huffman R.N. hydrochlorothiazide 25 mg tablet -- 13:04 03/18/25 [facility] Guicho Huffman R.N. quetiapine 50 mg tablet -- 13:03/18/25 DEBORA Guicho Huffman R.N. magnesium 100 mg (as glycinate) capsule: TAKE 1 CAPSULE BY MOUTH TWICE DAILY -- 13:03/18/25 BEN Huffman R.N. scopolamine 1 mg over 3 days transdermal patch -- 13:03/18/25 [facility] Guicho Huffman R.N. Vraylar 1.5 mg capsule -- 13:04 03/18/25 DEBORAT Guicho Huffman R.N. Allergies: morphine -- 12:57 03/18/25 DEBORAT Guicho Huffman R.N. Adderall -- 12:57 03/18/25 DEBORAT Guicho Huffman R.N. Problems: Asthma -- 12:57 03/18/25 DEBORAT Guicho Huffman R.N. thyroid cancer -- 12:57 03/18/25 EDT Guicho Huffman R.N. Gastroparesis -- 12:58 03/18/25 EDT Guicho Huffman R.N. kidney stones -- 12:58 03/18/25 EDT Guicho Huffman R.N. ADDITIONAL SURGERIES: Cholecystectomy -- 12:58 03/18/25 DEBORAT Guicho Huffman R.N. Sinus Surgery -- 12:58 03/18/25 EDT Guicho Huffman R.N. kidney stone -- 12:58 03/18/25 EDT Guicho Huffman R.N. urethra widening -- 12:58 03/18/25 EDT Guicho Huffman R.N. Thyroidectomy -- 12:59 03/18/25 EDT Guicho Huffman R.N. History 12:56 03/18/25. SOCIAL [...] with patient. Patient has advanced directive. -- 13:01 03/18/25 DEBORAT Guicho Huffman R.N. PHYSICAL ASSESSMENT 13:45 03/18/25. GENERAL / NEURO / PSYCH: Oriented X 4. RESPIRATORY: Respirations not labored. GI / : Abdomen soft and nontender. Bowel sounds within normal limits. ( RIGHT SIDE FLANK PAIN X5 DAYS, KNOWN HX OF KIDNEY STONES.). SKIN: Skin is warm and dry. -- 13:45 03/18/25 EDT Tiffani Cheng R.N. NURSING PROGRESS NOTES 13:27 03/18/25. Site #1 started via IV in the right antecubital space with a 20g angiocath with aseptic technique and good blood return; 1 attempt. Blood drawn: rainbow set tube(s). Labeled in the presence of the patient and sent to the lab. Saline lock flushed with 5 mL saline. -- 13:30 03/18/25 EDT Sudheer CormierP. 13:31 03/18/25. IV NS 0.9 % 1000 mL started in bag#1 1000 mL at 500 mL/hr over 2 hour(s) via Site# 1. Allergies verified and confirmed 5 rights. IV patency established. IV site checked: no pain, redness, or swelling. IV flushed thoroughly pre-medication administration. Information reviewed with patient. Verbalizes understanding. Completed per protocol. -- 13:32 03/18/25 EDT Sudheer CormierP. 13:42 03/18/25. Zofran IVP 4 mg given via Site# 1. Allergies verified and confirmed 5 rights. IV patency established. IV site checked: no pain, redness, or swelling. IV flushed thoroughly pre-medication administration. Information reviewed with patient. Verbalizes understanding. -- 13:43 03/18/25 EDT Tiffani Cheng R.N. 1 (more content not included)... Normal [facility] ED ORDER SHEET (CPOE ONLY)on 03-18-2025 ED ORDER SHEET (CPOE ONLY) Order Sheet Order Sheet [address] [place] [address] [id number] 03/18/2025 Patient: GRETA ANDRES Sex: Female : 1990 Age: 35y MEASUREMENTS: Wt: 86.2 kg, Ht/Grzegorz: 65.0 in, BMI: 31.62 ALLERGIES: Adderall, morphine MEDICATION/IV/DRIP/FLUID ORDERS Order Description Priority Entered Acknowledged Completed IV NS 0.9 %1000 mL at 500 13:00 03/18/2025 13:22 13:32 mL/hr (NOW x1) Iram Sarmiento, 03/18/2025 03/18/2025 Judson Hinds E.M.T.-P. E.M.T.-P. HYDROmorphone (Dilaudid) 13:33 03/18/2025 13:40 13:43 IVP0.5 mg (NOW x1, HIGH Iram Sarmiento, 03/18/2025 03/18/2025 ALERT MEDICATION) Zachary Campa R.N. Reason for ordering with alerts: Benefits outweigh risks --13:33 03/18/2025 Iram Sarmiento D.O. Zofran IVP4 mg (NOW x1) 13:33 03/18/2025 13:40 13:43 Iram Sarmiento, 03/18/2025 03/18/2025 Zachary Campa, R.NPolina Reason for ordering with alerts: Benefits outweigh risks --13:33 03/18/2025 Iram Sarmiento D.O. KetorOLAC (Toradol) IVP15 mg 14:50 03/18/2025 14:53 14:58 1 of 3 Order Sheet (NOW x1) Iram Sarmiento, 03/18/2025 03/18/2025 Zachary Campa E.M.T.-PPolina Reason for ordering with alerts: Benefits outweigh risks --14:50 03/18/2025 Iram Sarmiento D.O. HYDROmorphone (Dilaudid) 15:35 03/18/2025 15:36 15:39 IVP0.5 mg (NOW x1, HIGH Iram Sarmiento, 03/18/2025 03/18/2025 ALERT MEDICATION) Zachary Campa RPolinaNPolina Reason for ordering with alerts: Benefits outweigh risks --15:35 03/18/2025 Iram Sarmiento D.O. LAB ORDERS Order Description Priority Entered Acknowledged Collected Completed CBC w Diff Stat Stat 13:00 03/18/2025 13:21 03/18/2025 13:32 03/18/2025 Judson Khan Bryan Parker, D.O. E.M.T.-PPolina MartínezT.-PPolina CMP Stat Stat 13:00 03/18/2025 13:21 03/18/2025 13:32 03/18/2025 Judson Khan Bryan Parker, D.O. E.M.T.-P. MauricioT.-P. Lipase Stat Stat 13:00 03/18/2025 13:21 03/18/2025 13:32 03/18/2025 Judson Khan Bryan Parker, D.O. E.M.T.-P. MauricioT.-P. Urinalysis Stat Stat 13:00 03/18/2025 13:21 03/18/2025 Judson Khan D.O. E.M.T.-P. Urine - HCG Stat 13:00 03/18/2025 13:21 03/18/2025 Stat Judson Khan D.O. E.M.T.-P. 2 of 3 Order Sheet DIAGNOSTIC STUDY ORDERS Order Description Priority Entered Acknowledged Completed CT KUB (Kidney stone) Stat Stat 14:24 03/18/2025 14:40 Iram Sarmiento, 03/18/2025 Freeman Cheng R.N. Order Comments: 14:24 03/18/2025: Status: Not . Iram Sarmiento D.O. Reason for Study: Flank Pain STAFF ORDERS Order Description Priority Entered Acknowledged Collected Completed IV Saline Lock 13:00 03/18/2025 13:21 03/18/2025 13:32 03/18/2025 Judson Khan Bryan Parker, D.O. E.M.T.-P. MauricioT.-PPolina [Electronically signed by Iram Sarmiento D.O. (03/18/2025 16:23 EDT)] 3 of 3 Normal [facility] ED PHYSICIAN CLINICAL REPORT on 03-18-2025 ED PHYSICIAN CLINICAL REPORT Narrative Physician Clinical Narrative [address] [address] [phone] 03/18/2025 12:53:00 Patient: GRETA ANDRES Sex: Female [...] a low specific gravity, may not contain hotel services sales representative EXTERNAL QC 03/18/2025 13:29 YES Final [...] Final NORMAL EDT NORMAL: 03/18/2025 13:29 Sp Tad 1.015 Final 1.010-1.030 EDT NORMAL: 03/18/2025 13:29 [...] 03/18/2025 13: (more content not included)... Normal [facility] ED SUPER BILLon 03-18-2025 ED SUPER BILL [facility] [address] [place] [address] [phone] 03/18/2025 Patient: GRETA ANDRES Sex: Female : 1990 Age: 35y Facility Professional Category Item Description Code Code Quantity Fee Total Nurse/E/M EMERGENCY 391439 1 $0.00 $0.00 DEPT VISIT HIGH SEVERITYFUNCJ (24332-94) Nurse/IV/IM/Infusions Hydration 965842 3 $0.00 $0.00 additional hour (33373) Nurse/IV/IM/Infusions IVP additional 285662 2 $0.00 $0.00 push (41345) Nurse/IV/IM/Infusions IVP initial (01719) 932656 1 $0.00 $0.00 Nurse/IV/IM/Infusions IVP same med 179817 1 $0.00 $0.00 (31 min apart) (13584) Grand $0.00 Total Providers Iram Sarmiento D.O. 1 of 2 [facility] Chief Complaint FLANK PAIN. Principal Diagnosis Acute right upper quadrant and right lower quadrant abdominal pain of undetermined cause. ICD-10 Codes R10.11: Right upper quadrant pain R10.31: Right lower quadrant pain 2 of 2 Normal [facility] ED VISIT SUMMARYon ED VISIT SUMMARY Visit Overview Visit Overview [facility] [address] [place] [address] [phone] 03/18/2025 Patient: GRETA ANDRES Sex: Female : [...] OF UNDETERMINED CAUSE 4 of 4 Normal [facility] ED VITALS FLOW SHEETon 03-18 ED VITALS FLOW SHEET Vitals Vital Sign Flow Sheet [address] [address] [phone] 03/18/2025 Patient: GRETA ANDRES Sex: Female : [...] 98.1 F 6 1 of 1 Normal [facility] LIPASEon 03-18-2025 Lipase [Catalytic activity/Vol] 45.0 U/L Normal 15.0 - 78.0 [facility] Comment on above: Result Comment: *PLE ASE NOTE THAT RANGES FOR LIPASE HAVE CHANGED OF 11/19/23 DUE TO AN ASSAY UPDATE BY THE EMBALMER APPRENTICE.THE NEW ASSAY RANGE IS 6-250 U/L, WITH A REFERENCE RANGE OF 16-77 U/L. Performed By: #### 2 37753 #### [facility],[address] [place], [place] [id number] URINEon 03-18-2025 Beta HCG ( test) Ql (U) Negative Normal NEGATIVE [facility] Comment on above: Performed By: #### 2 [address]92 ####[place] [address] EXTERNAL QC DONE? YES Normal [facility] Comment on above: Result Comment: Very dilute urine specimens, as indicated by a low specific gravity, may not contain hotel services sales representative levels of hCG. If is still suspected, a first morning urine specimen should be collected 48 hours later and tested. Performed By: #### 2 74927 ####[place] [address] INTERNAL QC PASS Normal [facility] Comment on above: Performed By: #### 2 03847 ####[place] [address] URINALYSISon 03-18-2025 Bilirubin Ql (U) Negative Normal NORMAL: NEGATIVE [facility] Comment on above: Performed By: #### 2 06696 ####[place] [address] Clarity (U) clear Normal NORMAL: CLEAR [facility] Comment on above: Performed By: #### 2 22776 ####[place] [phone] Color (U) yellow Normal NORMAL: YELLOW [facility] Comment on above: Performed By: #### 2 83310 ####[address] [address] Glucose Ql (U) NORM Normal NORMAL: NORMAL [facility] Comment on above: Performed By: #### 2 11568 ####[facility],[address] [place] [address] Hemoglobin Ql (U) Negative Normal NORMAL: NEGATIVE [facility] Comment on above: Performed By: #### 2 61143 ####[facility],[address] [place] [address] Ketone Negative Normal NORMAL: NEGATIVE [facility] Comment on above: Performed By: #### 2 46458 ####[facility],[address] [place] [address] Leukocytes Negative Normal NORMAL: NEGATIVE [facility] Comment on above: Performed By: #### 2 63518 ####[facility],[address] [place], [place] [phone] Nitrite Ql (U) Negative Normal NORMAL: NEGATIVE [facility] Comment on above: Performed By: #### 2 71428 ####[facility],[address] [place] [address] pH (U) 6.5 [pH] Normal NORMAL: 5.0-8.0 [facility] Comment on above: Performed By: #### 2 36563 ####[facility],[address] [place], [place] [phone] Protein Ql (U) 15 Abnormal NORMAL: NEGATIVE [facility] Comment on above: Performed By: #### 2 01947 ####[facility],[address] [place], [place] [phone] Sp Tad 1.015 Normal NORMAL: 1.010-1.030 [facility] Comment on above: Performed By: #### 2 46324 ####[facility],[address] [place] [address] Specimen Type R Normal [facility] Comment on above: Performed By: #### 2 77071 ####[facility],[address] [place], [place] [phone] Urinalysis dipstick W Reflex Microscopic panel (U) NOT INDICATED Normal [facility] Comment on above: Performed By: #### 2 71045 ####[facility],[address] [place] [address] Urobilinog NORM Normal NORMAL: NORMAL [facility] Comment on above: Performed By: #### 2 15266 ####[facility],[address] [place] [address] CNOVon 03-02-2025 CNOV Office Visit (PNMDNA ) GRETA ANDRES ([id number]) 1990 F Date Time Provider Department 03/02/25 9:00 AM CARLIE BROWNLEE PNMDNA During your visit today, we recorded the following information about you: Pulse Weight 87/minute 86.9 kg Carlie Brownlee, VINYL INSTALLER.DRAMATIC ARTS HISTORIAN 03/02/2025 9:34 AM Signed Subjective Greta Andres presents to [facility] for a follow up [...] been transmitted (more content not included)... Normal [facility] CNPNon 03-02-2025 CNPN Telephone (PNMDNA) GRETA ANDRES ([id number]) 1990 F Date Time Provider Department 03/02/25 CARLIE BROWNLEE PNMDNA During your visit today, [...] for current RX? Please advise jhoan call [facility] at [phone] with recommendations. Carlie Powell APRN.DRAMATIC ARTS HISTORIAN 03/02/2025 10:02 AM Signed Resent the rx Allergies As of Date: 03/02/2025 Noted Allergy Reaction ADHESIVE 02/12/2010 2 - Rash MORPHINE SULFATE 11/12/2008 9 - Itching Comments: had vicodin at same time, but has taken vicodin in past without reaction ADDERALL (DEXTROAMPHETAMINE-AMPHE* 5 - Intolerance Comments: Heart racing, chest pain, diaphoretic, dizzy Date Reviewed: 01/05/2025 Reviewed by: Tomas Alexis APRN.DRAMATIC ARTS HISTORIAN - Fully Assessed Reason for Visit: Medication [...] by mouth two times a day. - Qexoi-6-ONP-EPA-Fish Oil (FISH OIL) 1,000 (120-180) mg cap [...] stones [N20.0 (more content not included)... Normal [facility] CNPNon 02-19-2025 CNPN Telephone (PNMDNA) GRETA ANDRES ([id number]) 1990 F Date Time Provider Department 02/19/25 JUAN DANIEL CONTRERAS PNRACH During your visit today, we recorded the following information about you: Mahesh Quispe, RN 02/19/2025 3:22 PM Signed Patient left message on nurse 02/19/25 at 11:37 asking if she should postpone her appointment with Dr. Contreras on 02/26/25 until after she completes physical therapy. Please call patient at [phone]. Naomi Godwin, RN 02/19/2025 3:30 PM Signed [...] Date Reviewed: 01/05/2025 Reviewed by: Tomas Alexis APRN.DRAMATIC ARTS HISTORIAN - Fully Assessed Reason for Visit: Patient Question [2367] Prescriptions as of 02/19/2025 - SUMAtriptan (IMITREX) [...] by mouth two times a day. - Hwusr-9-WKW-EPA-Fish Oil (FISH OIL) 1,000 (120-180) mg cap [...] Status:Closed by NAOMI GODWIN on 02/19/25 Normal [facility] Gastric Emptying Studyon Gastric Emptying Study [facility] Imaging Services [address] [place] [id number] Gastric Emptying Study MR#: [id number] Acct: [id number] Name: GRETA ANDRES Rep #: [id number] : 1990 F 34 From: [address], MD PCP: Dr. Nagi Red MD Status: REG CLI Study: Gastric Emptying Study Date of Exam: 02/12/25 Exam# [id number] Ordering Dr: Taylor Samuel PROCEDURE: GASTRIC EMPTYING [...] to timing of study termination. Reading Location: [id number] CC: Dr. Nagi Red MD; JERI Marquez Vegetable Vendor: Signed [facility] 02-08-2025 CNPN Telephone (PNMDNA) GRETA ANDRES ([id number]) 1990 F Date Time Provider Department 02/08/25 JUAN DANIEL CONTRERAS During your visit today, we recorded [...] on: 02/08/2025 03:08 PM Modules accepted: Orders Juan Daniel Contreras MD 02/12/2025 10:05 AM Signed Addended by: JUAN DANIEL CONTRERAS on: 02/12/2025 10:05 AM Modules accepted: Orders Allergies As of Date: 02/08/2025 Noted Allergy Reaction ADHESIVE 02/12/2010 2 - Rash MORPHINE SULFATE 11/12/2008 9 - Itching Comments: had vicodin at same time, but has taken vicodin in past without reaction ADDERALL (DEXTROAMPHETAMINE-AMPHE* 5 - Intolerance Comments: Heart racing, chest pain, diaphoretic, dizzy Date Reviewed: 01/05/2025 Reviewed by: Tomas Alexis APRN.DRAMATIC ARTS HISTORIAN - Fully Assessed Reason for Visit: Insurance Authorization [2333] Cmt: Lumbar MRI Denial Primary Visit Diagnosis:Radiculopathy, lumbar region [M54.16] Other Visit Diagnosis: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 - Crkdr-4-JCH-EPA-Fish Oil (FISH OIL) 1,000 (120-180) mg cap [...] 03/22/2014 Fibromyalgia (more content not included)... Normal [facility] Ova and Parasites 8623on OP OVA AND PARASITES EX AM, ROUTINE These results were obtained using wet preparation(s) and trichrome stained smear. This test does not include testing for Crytosporidium parvum, Cyclospora, or Microsporidia. One negative specimen does not rule out the possibility of a parasitic infection. _ TESTING PERFORMED AT [facility]. ORIGINAL REPORT ON FILE IN LAB CONTAINS ADDITIONAL TEST SITE INFORMATION. _ Ova/Parasite Exam NO OVA, CYSTS, OR PARASITES FOUND. Normal [facility] Comment on above: Performed By: #### L 501.2450, L700.4595 #### [facility] [address] [place], [address] Calprotectin, Stoolon [address] 25 ug/g Normal 0-120 [facility] Comment on above: Result Comment: Conc entration Interpretation Follow-Up < 5 - 50 ug/g Normal None >50 -120 ug/g Borderline Re-evaluate in 4-6 weeks >120 ug/g Abnormal Repeat as clinically indicated Performed at: [address] [id number] Trail Construction Worker: Laura John MD, Phone: [phone] Performed By: #### L 501.2450, L885.7368 #### [facility] [address] [place], [place], [id number] Giardia Lamblia, Stool EIAon 02-03-2025 Giardia Stool Negative Normal Negative [facility] Comment on above: Result Comment: Perf ormed at: [address] [id number] Trail Construction Worker: Rony Esquivel PhD, Phone: [phone] Performed By: #### L 501.2450, L700.8040 #### [facility] [address] [place] [place], [address] CDIFF (PCR)on 02-02-2025 CDIFF Reference Range: Neg ative [employer] GeneXpert: polymerase chain reaction (PCR) 027 027 NAP1-B1 Presumptive Negative *for epidemiolologic???use C. Diff PCR Negative- No toxigenic C. Diff Detected Normal [facility] Comment on above: Performed By: #### L 501.2450, L700.6800 #### [facility] [address] [place], [address] ENTERIC PATHOGEN PANEL STOOL on 02-02-2025 EP [...] VIBRIO Not Detected Yersinia Not Detected Normal [facility] Comment on above: Performed By: #### L 501.2450, L700.6800 #### [facility] [address] [place], [address] Stool Lactoferrin/WBCon -1 WBCST Normal Reference Ran ge = Negative Fecal WBC Lactoferrin Negative: No Fecal WBC Lactoferrin present Normal [facility] Comment on above: Performed By: #### L 501.2450, L700.6800 #### [facility] [address] [place], [address] CBC W/Diff, Automatedon 03-0 Absolute Lymph 3.47 X10 3/uL Normal 0.83-4.51 [facility] Comment on above: Performed By: #### L 500.4050, L501.6710, L100.0100, L101.9900 #### [facility] [address] [place], [address] Absolute Neut 7.5 X10 3/uL Normal 2.0-7.7 [facility] Comment on above: Performed By: #### L 500.4050, L501.6710, L100.0100, L101.9900 #### [facility] [address] [place], [address] Basophils/100 WBC (Bld) 0.3 % Normal 0-1 [facility] Comment on above: Performed By: #### L 500.4050, L501.6710, L100.0100, L101.9900 #### [facility] [address] [place], [address] Eosinophils/100 WBC (Bld) 3.3 % Normal 0-5 [facility] Comment on above: Performed By: #### L 500.4050, L501.6710, L100.0100, L101.9900 #### [facility] [address] [place], [address] Erythrocyte distribution width (RBC) [Ratio] 13.3 % Normal 11.6-14.6 [facility] Comment on above: Performed By: #### L 500.4050, L501.6710, L100.0100, L101.9900 #### [facility] [address] [place], [address] Hematocrit (Bld) [Volume fraction] 39.1 % Normal 37-47 [facility] Comment on above: Performed By: #### L 500.4050, L501.6710, L100.0100, L101.9900 #### [facility] [address] [place], [address] Hemoglobin (Bld) [Mass/Vol] 13.8 g/dL Normal 12.0-15.0 [facility] Comment on above: Performed By: #### L 500.4050, L501.6710, L100.0100, L101.9900 #### [facility] [address] [place], [address] IG% 1.000 High 0.0-0.9 [facility] Comment on above: Result Comment: IG% - Immature Granulocytes (promyelocytes, myelocytes and metamyelocytes) > 1% indicates that a LEFT SHIFT is Present. Performed By: #### L 500.4050, L501.6710, L100.0100, L101.9900 #### [facility] [address] [place], [address] Lymphocytes/100 WBC (Bld) 28.2 % Normal 19-41 [facility] Comment on above: Performed By: #### L 500.4050, L501.6710, L100.0100, L101.9900 #### [facility] [address] [place], [address] MCH (RBC) [Entitic mass] 28.0 pg Normal 27.0-32.0 [facility] Comment on above: Performed By: #### L 500.4050, L501.6710, L100.0100, L101.9900 #### [facility] [address] [place], [address] MCHC (RBC) [Mass/Vol] 35.3 g/dL Normal 32-36 [facility] Comment on above: Performed By: #### L 500.4050, L501.6710, L100.0100, L101.9900 #### [facility] [address] [place], [address] MCV (RBC) [Entitic vol] 79.5 fL Low 81-99 [facility] Comment on above: Performed By: #### L 500.4050, L501.6710, L100.0100, L101.9900 #### [facility] [address] [place], [address] Monocytes/100 WBC (Bld) 6.5 % Normal 0-10 [facility] Comment on above: Performed By: #### L 500.4050, L501.6710, L100.0100, L101.9900 #### [facility] [address] [place], [address] Neutrophils/100 WBC (Bld) 60.7 % Normal 47-70 [facility] Comment on above: Performed By: #### L 500.4050, L501.6710, L100.0100, L101.9900 #### [facility] [address] [place], [address] Nucleated RBC (Bld) [#/Vol] 0 10*3/uL Normal 0-5 [facility] Comment on above: Performed By: #### L 500.4050, L501.6710, L100.0100, L101.9900 #### [facility] [address] [place], [address] Platelet mean volume (Bld) [Entitic vol] 10.2 fL Normal 6.2-12.0 [facility] Comment on above: Performed By: #### L 500.4050, L501.6710, L100.0100, L101.9900 #### [facility] [address] [place], [address] Platelets (Bld) [#/Vol] 300 10*3/uL Normal 150-450 [facility] Comment on above: Performed By: #### L 500.4050, L501.6710, L100.0100, L101.9900 #### [facility] [address] [place], [address] RBC (Bld) [#/Vol] 4.92 10*6/uL Normal 4.2-5.4 [facility] Comment on above: Performed By: #### L 500.4050, L501.6710, L100.0100, L101.9900 #### [facility] [address] [place], [address] RDW SD 38.3 fl Normal 35.1-43.9 [facility] Comment on above: Performed By: #### L 500.4050, L501.6710, L100.0100, L101.9900 #### [facility] [address] [place], [address] WBC (Bld) [#/Vol] 12.3 10*3/uL High 4.4-11.0 [facility] Comment on above: Performed By: #### L 500.4050, L501.6710, L100.0100, L101.9900 #### [facility] [address] [place], [address] CRPon 01-26-2025 C-REACTIVE PROT 10.40 mg/L High 0.0-3.0 [facility] Comment on above: Performed By: #### L 500.4050, L501.6710, L100.0100, L101.9900 #### [facility] [address] [place], [address] Comprehensive Metabolic Prof ilon 01-26-2025 Albumin [Mass/Vol] 4.0 g/dL Normal 3.5-5.0 [facility] Comment on above: Performed By: #### L 500.4050, L501.6710, L100.0100, L101.9900 #### [facility] [address] [place], [address] Albumin/Globulin [Mass ratio] 1.3 {ratio} Normal 0.9-2.4 [facility] Comment on above: Performed By: #### L 500.4050, L501.6710, L100.0100, L101.9900 #### [facility] [address] [place], [address] ALK PHOS 79 U/L Normal 35-104 [facility] Comment on above: Performed By: #### L 500.4050, L501.6710, L100.0100, L101.9900 #### [facility] [address] [place], [address] ALT [Catalytic activity/Vol] 19 U/L Normal <=34 [facility] Comment on above: Performed By: #### L 500.4050, L501.6710, L100.0100, L101.9900 #### [facility] [address] [place], [address] AST [Catalytic activity/Vol] 21 U/L Normal <=31 [facility] Comment on above: Performed By: #### L 500.4050, L501.6710, L100.0100, L101.9900 #### [facility] [address] [place], [address] Bilirubin [Mass/Vol] 0.26 mg/dL Normal 0.00-1.30 [facility] Comment on above: Performed By: #### L 500.4050, L501.6710, L100.0100, L101.9900 #### [facility] [address] [place], [address] BUN/CRE 9.9 RATIO Low 10-20 [facility] Comment on above: Performed By: #### L 500.4050, L501.6710, L100.0100, L101.9900 #### [facility] [address] [place], [address] Calcium [Mass/Vol] 9.4 mg/dL Normal 7.6-11.0 [facility] Comment on above: Performed By: #### L 500.4050, L501.6710, L100.0100, L101.9900 #### [facility] [address] [place], [address] Chloride [Moles/Vol] 106 mmol/L Normal 98-108 [facility] Comment on above: Performed By: #### L 500.4050, L501.6710, L100.0100, L101.9900 #### [facility] [address] [place], [address] CO2 [Moles/Vol] 20.8 mmol/L Low 21.0-32.0 [facility] Comment on above: Performed By: #### L 500.4050, L501.6710, L100.0100, L101.9900 #### [facility] [address] [place], [address] Creatinine [Mass/Vol] 0.80 mg/dL Normal 0.70-1.20 [facility] Comment on above: Performed By: #### L 500.4050, L501.6710, L100.0100, L101.9900 #### [facility] [address] [place], [address] GAP 12 Normal 5-15 [facility] Comment on above: Performed By: #### L 500.4050, L501.6710, L100.0100, L101.9900 #### [facility] [address] [place], [address] GFR/1.73 sq M.predicted among non-blacks MDRD (S/P/Bld) [Vol rate/Area] 100 mL/min/{1.73_m2} Normal >60 [facility] Comment on above: Result Comment: mL/m in/1.73m2 CKD-EPI Creatinine Equation (2020) Performed By: #### L 500.4050, L501.6710, L100.0100, L101.9900 #### [facility] [address] [place], [address] Globulin (S) [Mass/Vol] 3.0 g/dL Normal 2.2-4.2 [facility] Comment on above: Performed By: #### L 500.4050, L501.6710, L100.0100, L101.9900 #### [facility] [address] [place], [address] Glucose [Mass/Vol] 78 mg/dL Normal 70-99 [facility] Comment on above: Performed By: #### L 500.4050, L501.6710, L100.0100, L101.9900 #### [facility] [address] [place], [address] Potassium [Moles/Vol] 3.9 mmol/L Normal 3.3-5.1 [facility] Comment on above: Performed By: #### L 500.4050, L501.6710, L100.0100, L101.9900 #### [facility] [address] [place], [address] Sodium [Moles/Vol] 138 mmol/L Normal 133-145 [facility] Comment on above: Performed By: #### L 500.4050, L501.6710, L100.0100, L101.9900 #### [facility] [address] [place], [address] T PROT 7.1 g/dL Normal 5.9-8.4 [facility] Comment on above: Performed By: #### L 500.4050, L501.6710, L100.0100, L101.9900 #### [facility] [address] [place], [address] Urea nitrogen [Mass/Vol] 8 mg/dL Normal 4-19 [facility] Comment on above: Performed By: #### L 500.4050, L501.6710, L100.0100, L101.9900 #### [facility] [address] [place], [address] Erythrocyte Sed Rateon 01-26 SED RATE 7 mm/hr Normal 0-30 [facility] Comment on above: Performed By: #### L 500.4050, L501.6710, L100.0100, L101.9900 #### [facility] [address] [place], [address] Gastroenterology Visit Repor ton 01-19-2025 Gastroenterology Visit Report [facility] [address] [place] [address] OFFICE VISIT Date of Service: 01/19/25 MR#: [id number] Acct: [id number] Name: GRETA ANDRES Rep #: [id number] : 1990 Provider: JERI Marquez Age/Sex: 34/F Location: [facility] Status: Signed Intake Vital Signs 10/21/24 10:40 [...] but is unable to take while working. [facility] Medical History Kidney stone Cancer Anemia Migraine [...] sin (more content not included)... [facility] Office Visit (UCWSTR ) GRETA ANDRES ([id number]) 1990 F Date Time Provider Department 01/05/25 8:15 AM TOMAS ALEXIS [facility] During your visit today, we recorded the following information about you: Temperature Pulse Respiration Blood pressure 98 degrees 84/minute 18/minute 115/79 Weight 87.8 kg Tomas Alexis APRN.CNP 01/05/2025 8:42 AM Signed This note was [...] to start antibiotics. She will otherwise use xxvq-zgo-pchuhes treatments as necessary for symptomatic relief. - [...] Date Reviewed: 01/05/2025 Reviewed by: Tomas Alexis APRN.DRAMATIC ARTS HISTORIAN - Fully Assessed Reason for Visit: Cough [...] by mouth two times a day. - Pnblr-7-UAR-EPA-Fish Oil (FISH OIL) 1,000 (120-180) mg cap [...] Other acqu (more content not included)... Normal [facility] CNOVon 12-15-2024 CNOV Office Visit (FAMPWS ) GRETA ANDRES ([id number]) 1990 F Date Time Provider Department 12/15/24 1:40 PM [facility] During your visit today, we recorded the following information about you: Pulse Respiration Blood pressure Weight 75/minute 14/minute 154/88 88.9 kg Renard Almodovar APRN.DRAMATIC ARTS HISTORIAN 12/15/2024 1:58 PM Signed Chief Complaint Patient [...] 08/07/2013 Bipolar 1 disorder (HCC) 02/14/2018 Seeing [facility] Behavioral Medicine as of 01/2018 [...] spinal stenosis 04/25/2024 Lupus (systemic lupus erythematosus) ([facility]) Migraine without aura and without status migrainosus, not intractable 05/20/2017 Multiple thyroid nodules 07/26/2019 Neoplasm of uncertain behavior of skin of back Obesity, Class I, BMI 30-34.9 03/03/2023 Other and unspecified ovarian cyst Ovarian cyst Other joint derangement, not elsewhere classified, lower leg 08/20/2008 Papillary thyroid carcinoma ([facility]) 07/21/2019 PMH - PAST MEDICAL HISTORY OF r thumb broken Post-surgical hypothyroidism 08/25/2019 Primary thyroid papillary carcinoma ([facility]) 07/21/2019 PTSD (post-traumatic stress disorder) 02/14/2018 PTSD (post-traumatic stress disorder) S/P total thyroidectomy 07/31/2019 Sacroiliitis, not elsewhere classified ([facility]) 02/20/2013 SI (sacroiliac) joint dysfunction 11/06/2015 Spinal [...] (PCOS) Sis (more content not included)... Normal [facility] HISTORY PHYSICALon HISTORY PHYSICAL HNO ID: [id number] Author: JUAN DANIEL CONTRERAS MD Service: Pain Management Author Type: Physician Type: H&P Filed: 11/09/2024 12:32 Note Text: HISTORY AND PHYSICAL EXAMINATION PATIENT NAME: Greta Andres DATE of SERVICE: 11/09/2024 Greta Andres is here for the pain [...] 08/07/2013 Bipolar 1 disorder (HCC) 02/14/2018 Seeing [facility] Behavioral Medicine as of 01/2018 [...] spinal stenosis 04/25/2024 Lupus (systemic lupus erythematosus) ([facility]) Migraine without aura and without status migrainosus, not intractable 05/20/2017 Multiple thyroid nodules 07/26/2019 Neoplasm of uncertain behavior of skin of back Obesity, Class I, BMI 30-34.9 03/03/2023 Other and unspecified ovarian cyst Ovarian cyst Other joint derangement, not elsewhere classified, lower leg 08/20/2008 Papillary thyroid carcinoma ([facility]) 07/21/2019 PMH - PAST MEDICAL HISTORY OF r thumb broken Post-surgical hypothyroidism 08/25/2019 Primary thyroid papillary carcinoma ([facility]) 07/21/2019 PTSD (post-traumatic stress disorder) 02/14/2018 PTSD (post-traumatic stress disorder) S/P total thyroidectomy 07/31/2019 Sacroiliitis, not elsewhere classified ([facility]) 02/20/2013 SI (sacroiliac) joint dysfunction 11/06/2015 Spinal [...] mL/hr INTRAVENOUS CONTIN (more content not included)... [facility] OPERATIVE NOon 11-09-2024 OPERATIVE NO HNO ID: [id number] Author: JUAN DAINEL CONTRERAS MD Service: Pain Management Author Type: Physician Type: Operative Report Filed: 11/09/2024 13:20 Note Text: PATIENT NAME: Greta Andres SERVICE DATE: 11/09/2024 Preoperative Diagnosis: Left SI joint dysfunction Left SI joint pain Postoperative Diagnosis: Same Health Inspector(s): None, I performed the entire procedure. ANESTHESIA: [...] RF ablation of the SI joint per [place] [employer]. PROCEDURE: Left SI joint BIPOLAR RADIOFREQUENCY [...] nil. A sterile dressing was applied. Greta Andres was taken to the Post-block Recovery Area for further observation. EBL: nil I was present the entire time and personally performed the procedure. SIGNATURE: Juan Daniel Contreras MD DATE: November 09, 2024 TIME: 1:19 PM [facility] 11-02-2024 [facility] Office Visit (FAMPWS ) GRETA ANDRES ([id number]) 1990 F Date Time Provider Department 11/02/24 9:40 AM RENARD ALMODOVAR During your visit today, we recorded the following information about you: Pulse Blood pressure Weight 112/minute 125/85 85.3 kg Renard Almodovar APRN.DRAMATIC ARTS HISTORIAN 11/02/2024 9:28 AM Signed Chief Complaint Patient [...] 08/07/2013 Bipolar 1 disorder (HCC) 02/14/2018 Seeing [facility] Behavioral Medicine as of 01/2018 [...] total thyroidectomy 07/31/2019 Sacroiliitis, not elsewhere classified ([facility]) 02/20/2013 SI (sacroiliac) joint dysfunction 11/06/2015 Spinal [...] persistent, in adult 03/03/[address] oCle Previous Surgical History PAST SURGICAL HISTORY Procedure [...] Current Medication (more content not included)... [facility] GRE[facility] AND[facility] ([id number]) 1990 F Date Time Provider Department 10/27/24 [facility] During your visit today, we recorded the following information about you: Christine Dean PA-C 10/27/2024 9:05 AM Signed Let patient know that her TSH is 89. I want her to reach out to her offal baler in regards to the lab results. We can fax the labs to them. Please confirm that she still see Dr. Caitlyn Rivera at [facility]. Her one inflammatory marker is elevated but otherwise labs are normal. CARLYN Maher Sherill A, LPN 10/27/2024 9:22 AM Signed Pt notified of results and instructions. Pt verbalizes understanding. Pt confirms she still sees Dr Rivera. Copy of lab results faxed to his office at [phone]. Ada Carson LPN Allergies As of Date: 10/27/2024 Noted Allergy Reaction ADHESIVE 02/12/2010 2 - Rash MORPHINE SULFATE 11/12/2008 9 - Itching Comments: had vicodin at same time, but has taken vicodin in past without reaction ADDERALL (DEXTROAMPHETAMINE-AMPHE* 5 - Intolerance Comments: Heart racing, chest pain, diaphoretic, dizzy Date Reviewed: 10/18/2024 Reviewed by: Nagi Ku APRN.DRAMATIC ARTS HISTORIAN - Fully Assessed Reason for Visit: Results [...] Status:Closed by ADA CARSON on 10/27/24 Normal [facility] CBC W Auto Differential pane l (Bld)on 10-26-2024 Basophils (Bld) [#/Vol] 0.03 10*3/uL Normal <0.11 [facility] Comment on above: Order Comment: Speci men Type: BLOOD SPECIMENOrdering Facility: [facility] Address: [address] [place] [address] Performed By: #### 4 537-7, 62406-9 ####[facility] LABCLIA [id number] [place] [address] [place] Basophils/100 WBC (Bld) 0.3 % Normal [facility] Comment on above: Order Comment: Speci men Type: BLOOD SPECIMENOrdering Facility: [facility] Address: [address] [place] [address] Performed By: #### 4 537-7, 05990-6 ####[facility] LABCLIA [id number] [place] [address] [place] Differential cell count method Nom (Bld) Auto Normal [facility] Comment on above: Order Comment: Speci men Type: BLOOD SPECIMENOrdering Facility: [facility] Address: [address] [place] [address] Performed By: #### 4 537-7, 01573-9 ####[facility] LABCLIA [id number] [place] [address] [place] Eosinophils (Bld) [#/Vol] 0.33 10*3/uL Normal <0.46 [facility] Comment on above: Order Comment: Speci men Type: BLOOD SPECIMENOrdering Facility: [facility] Address: [address] [place] [address] Performed By: #### 4 537-7, 31360-0 ####[facility] LABCLIA [id number] [place] [address] [place] Eosinophils/100 WBC (Bld) 3.2 % Normal [facility] Comment on above: Order Comment: Speci men Type: BLOOD SPECIMENOrdering Facility: [facility] Address: [address] [place] [address] Performed By: #### 4 537-7, 60812-9 ####[facility] LABCLIA [id number] [place] [address] [place] Erythrocyte distribution width (RBC) [Ratio] 14.3 % Normal 11.5-15.0 [facility] Comment on above: Order Comment: Speci men Type: BLOOD SPECIMENOrdering Facility: [facility] Address: [address] [place] [address] Performed By: #### 4 537-7, 31798-4 ####[facility] LABIA [id number] [place] [address] [place] Hematocrit (Bld) [Volume fraction] 42.4 % Normal 36.0-46.0 [facility] Comment on above: Order Comment: Speci men Type: BLOOD SPECIMENOrdering Facility: [facility] Address: [address] [place] [address] Performed By: #### 4 537-7, 83312-6 ####[facility] LABIA [id number] [place] [address] [place] Hemoglobin (Bld) [Mass/Vol] 14.4 g/dL Normal 11.5-15.5 [facility] Comment on above: Order Comment: Speci men Type: BLOOD SPECIMENOrdering Facility: [facility] Address: [address] [place] [address] Performed By: #### 4 537-7, 11456-8 ####[facility] LABIA [id number] [place] [id number] [place] Immature granulocytes (Bld) [#/Vol] 0.09 10*3/uL Normal <0.10 [facility] Comment on above: Order Comment: Speci men Type: BLOOD SPECIMENOrdering Facility: [facility] Address: [address] [place] [address] Performed By: #### 4 537-7, 83140-8 ####[facility] LABCLIA [id number] [place] [address] [place] Immature granulocytes/100 WBC (Bld) 0.9 % Normal [facility] Comment on above: Order Comment: Speci men Type: BLOOD SPECIMENOrdering Facility: [facility] Address: [address] [place] [address] Performed By: #### 4 537-7, 94876-1 ####[facility] LABCLIA [id number] [place] [address] [place] Lymphocytes (Bld) [#/Vol] 2.48 10*3/uL Normal 1.00-4.00 [facility] Comment on above: Order Comment: Speci men Type: BLOOD SPECIMENOrdering Facility: [facility] Address: [address] [place] [address] Performed By: #### 4 537-7, 54641-9 ####[facility] LABIA [id number] [place] [address] [place] Lymphocytes/100 WBC (Bld) 24.4 % Normal [facility] Comment on above: Order Comment: Speci men Type: BLOOD SPECIMENOrdering Facility: [facility] Address: [address] [place] [address] Performed By: #### 4 537-7, 41787-0 ####[facility] LABIA [id number] [place] [address] [place] MCH (RBC) [Entitic mass] 27.9 pg Normal 26.0-34.0 [facility] Comment on above: Order Comment: Speci men Type: BLOOD SPECIMENOrdering Facility: [facility] Address: [address] [place] [address] Performed By: #### 4 537-7, 93574-3 ####[facility] LABIA [id number] [place] [address] [place] MCHC (RBC) [Mass/Vol] 34.0 g/dL Normal 30.5-36.0 [facility] Comment on above: Order Comment: Speci men Type: BLOOD SPECIMENOrdering Facility: [facility] Address: [address] [place] [address] Performed By: #### 4 537-7, 24660-0 ####[facility] LABCLIA [id number] [place] [address] [place] MCV (RBC) [Entitic vol] 82.0 fL Normal 80.0-100.0 [facility] Comment on above: Order Comment: Speci men Type: BLOOD SPECIMENOrdering Facility: [facility] Address: [address] [place] [address] Performed By: #### 4 537-7, 54672-1 ####[facility] LABCLIA [id number] [place] [address] [place] Monocytes (Bld) [#/Vol] 0.42 10*3/uL Normal <0.87 [facility] Comment on above: Order Comment: Speci men Type: BLOOD SPECIMENOrdering Facility: [facility] Address: [address] [place] [address] Performed By: #### 4 537-7, 24761-5 ####[facility] LABIA [id number] [place] [address] [place] Monocytes/100 WBC (Bld) 4.1 % Normal [facility] Comment on above: Order Comment: Speci men Type: BLOOD SPECIMENOrdering Facility: [facility] Address: [address] [place] [address] Performed By: #### 4 537-7, 28422-7 ####[facility] LABCLIA [id number] [place] [address] [place] Neutrophils (Bld) [#/Vol] 6.82 10*3/uL Normal 1.45-7.50 [facility] Comment on above: Order Comment: Speci men Type: BLOOD SPECIMENOrdering Facility: [facility] Address: [address] [place] [address] Performed By: #### 4 537-7, 13090-2 ####[facility] LABCLIA [id number] [place] [address] [place] Neutrophils/100 WBC (Bld) 67.1 % Normal [facility] Comment on above: Order Comment: Speci men Type: BLOOD SPECIMENOrdering Facility: [facility] Address: [address] [place] [address] Performed By: #### 4 537-7, 15466-6 ####[facility] LABCLIA [id number] [place] [address] [place] Nucleated RBC (Bld) [#/Vol] 10*3/uL Normal <0.01 [facility] Comment on above: Order Comment: Speci men Type: BLOOD SPECIMENOrdering Facility: [facility] Address: [address] [place] [address] Performed By: #### 4 537-7, 49610-9 ####[facility] LABIA [id number] [place] [address] [place] Nucleated RBC/100 WBC (Bld) [Ratio] 0.0 /100 WBC Normal [facility] Comment on above: Order Comment: Speci men Type: BLOOD SPECIMENOrdering Facility: [facility] Address: [address] [place] [address] Performed By: #### 4 537-7, 45440-3 ####[facility] LABIA [id number] [place] [address] [place] Platelet mean volume (Bld) [Entitic vol] 10.4 fL Normal 9.0-12.7 [facility] Comment on above: Order Comment: Speci men Type: BLOOD SPECIMENOrdering Facility: [facility] Address: [address] [place] [address] Performed By: #### 4 537-7, 14082-6 ####[facility] LABCLIA [id number] [place] [address] [place] Platelets (Bld) [#/Vol] 249 10*3/uL Normal 150-400 [facility] Comment on above: Order Comment: Speci men Type: BLOOD SPECIMENOrdering Facility: [facility] Address: [address] [place] [address] Performed By: #### 4 537-7, 91347-7 ####[facility] LABIA [id number] [place] [address] [place] RBC (Bld) [#/Vol] 5.17 10*6/uL Normal 3.90-5.[address] [facility] Comment on above: Order Comment: Speci men Type: BLOOD SPECIMENOrdering Facility: [facility] Address: [address] [place] [address] Performed By: #### 4 537-7, 59567-1 ####[facility] LABIA [id number] [place] [address] [place] WBC (Bld) [#/Vol] 10.17 10*3/uL Normal 3.70-11.00 [facility] Comment on above: Order Comment: Speci men Type: BLOOD SPECIMENOrdering Facility: [facility] Address: [address] [place] [address] Performed By: #### 4 537-7, 31443-5 ####[facility] LABIA [id number] [place] [id number] [place] [facility] [place] CNOVon 10-26-2024 CNOV Office Visit (FAMPWS ) GRETA ANDRES ([id number]) 1990 F Date Time Provider Department 10/26/24 [...] little improvement with treatments. Was seen in [facility], and the ER. Toradol injection at [facility] did give temporary relief. Otherwise nothing has [...] do her job. 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 With head movement, kneeling to [...] 08/07/2013 Bipolar 1 disorder (HCC) 02/14/2018 Seeing [facility] Behavioral Medicine as of 01/2018 [...] spinal stenosis 04/25/2024 Lupus (systemic lupus erythematosus) ([facility]) Migraine without aura and without status migrainosus, not intractable 05/20/2017 Multiple thyroid nodules 07/26/2019 Neoplasm of uncertain behavior of skin of back Obesity, Class I, BMI 30-34.9 03/03/2023 Other and unspecified ovarian cyst Ovarian cyst Other joint derangement, not elsewhere classified, lower leg 08/20/2008 Papillary thyroid carcinoma ([facility]) 07/21/2019 PMH - PAST MEDICAL HISTORY OF r thumb broken Post-surgical hypothyroidism 08/25/2019 Primary thyroid papillary carcinoma ([facility]) 07/21/2019 PTSD (post-traumatic stress disorder) 02/14/2018 PTSD (post-traumatic stress disorder) S/P total thyroidectomy 07/31/2019 Sacroiliitis, not elsewhere classified ([facility]) 02/20/2013 SI (sacroiliac) joint dysfunction 11/06/2015 Spinal [...] thyroid [place] (more content not included)... Normal [facility] CRP SerPl-mCncon 10-26-2024 CRP [Mass/Vol] 1.1 mg/dL High <0.9 [facility] Comment on above: Order Comment: Speci men Type: BLOOD SPECIMENOrdering Facility: [facility] Address: [address] [place] [address] Performed By: #### 3 016-3, , 1988-03, ####[facility] LABIA [id number] [place] [address] [place] Comprehensive metabolic 2000 panelon 10-26-2024 Albumin [Mass/Vol] 4.5 g/dL Normal 3.9-4.9 [facility] Comment on above: Order Comment: Speci men Type: BLOOD SPECIMENOrdering Facility: [facility] Address: [address] [place] [address] Performed By: #### 3 016-3, , ####[facility] LABIA [id number] [place] [address] [place] ALP [Catalytic activity/Vol] 93 U/L Normal 34-123 [facility] Comment on above: Order Comment: Speci men Type: BLOOD SPECIMENOrdering Facility: [facility] Address: [address] [place] [address] Performed By: #### 3 016-3, , ####[facility] LABCLIA [id number] [place] [address] [place] ALT [Catalytic activity/Vol] 33 U/L Normal 7-38 [facility] Comment on above: Order Comment: Speci men Type: BLOOD SPECIMENOrdering Facility: [facility] Address: [address] [place] [address] Performed By: #### 3 016-3, , ####[facility] LABCLIA [id number] [place] [address] [place] Anion gap [Moles/Vol] 16 mmol/L High 8-15 [facility] Comment on above: Order Comment: Speci men Type: BLOOD SPECIMENOrdering Facility: [facility] Address: [address] [place] [address] Performed By: #### 3 016-3, , ####[facility] LABCLIA [id number] [place] [address] [place] AST [Catalytic activity/Vol] 37 U/L High 13-35 [facility] Comment on above: Order Comment: Speci men Type: BLOOD SPECIMENOrdering Facility: [facility] Address: [address] [place] [address] Performed By: #### 3 016-3, , ####[facility] LABCLIA [id number] [place] [address] [place] Bilirubin [Mass/Vol] 0.4 mg/dL Normal 0.2-1.3 [facility] Comment on above: Order Comment: Speci men Type: BLOOD SPECIMENOrdering Facility: [facility] Address: [address] [place] [address] Performed By: #### 3 016-3, , ####[facility] LABCLIA [id number] [place] [address] [place] Calcium [Mass/Vol] 8.9 mg/dL Normal 8.5-10.2 [facility] Comment on above: Order Comment: Speci men Type: BLOOD SPECIMENOrdering Facility: [facility] Address: [address] [place], [place] [address] Performed By: #### 3 016-3, , ####[facility] LABCLIA [id number] [place] [address] [place] Chloride [Moles/Vol] 101 mmol/L Normal 98-107 [facility] Comment on above: Order Comment: Speci men Type: BLOOD SPECIMENOrdering Facility: [facility] Address: [address] [place] [address] Performed By: #### 3 016-3, , ####[facility] LABCLIA [id number] [place] [address] [place] CO2 [Moles/Vol] 20 mmol/L Low 22-30 [facility] Comment on above: Order Comment: Speci men Type: BLOOD SPECIMENOrdering Facility: [facility] Address: [address] [place] [address] Performed By: #### 3 016-3, , ####[facility] LABCLIA [id number] [place] [address] [place] Creatinine [Mass/Vol] 0.84 mg/dL Normal 0.58-0.96 [facility] Comment on above: Order Comment: Speci men Type: BLOOD SPECIMENOrdering Facility: [facility] Address: [address] [place] [address] Performed By: #### 3 016-3, , ####[facility] LABCLIA [id number] [address] [address] [place] Creatinine and Glomerular filtration rate.predicted panel (S/P/Bld) 94 mL/min/1.73m??? Normal >=60 [facility] Comment on above: Order Comment: Monica tsang Type: BLOOD SPECIMENOrdering Facility: [facility] Address: [address] [place] [address] Result Comment: Claudia mated Glomerular Filtration Rate [...] accurately reflect actual GFR. Performed By: #### 3 016-3, , ####[facility] LABCLIA [id number] [place] [address] [place] Glucose [Mass/Vol] 100 mg/dL High 74-99 [facility] Comment on above: Order Comment: Monica tsang Type: BLOOD SPECIMENOrdering Facility: [facility] Address: [address] [place] [address] Result Comment: The [place] [employer] (ADA) provides guidance for cutoff [...] Standards of Medical Care in Diabetes 2016, [place] [employer]. Diabetes Care. 2016.39(Suppl 1). Performed By: #### 3 016-3, , ####[facility] LABCLIA [id number] [address] [address] [place] Potassium [Moles/Vol] 3.8 mmol/L Normal 3.7-5.1 [facility] Comment on above: Order Comment: Speci men Type: BLOOD SPECIMENOrdering Facility: [facility] Address: [address] [place] [address] Performed By: #### 3 016-3, , ####[facility] LABCLIA [id number] [place] [address] [place] Protein [Mass/Vol] 7.4 g/dL Normal 6.3-8.0 [facility] Comment on above: Order Comment: Speci men Type: BLOOD SPECIMENOrdering Facility: [facility] Address: [address] [place] [address] Performed By: #### 3 016-3, , ####[facility] LABIA [id number] [place] [address] [place] Sodium [Moles/Vol] 137 mmol/L Normal 136-144 [facility] Comment on above: Order Comment: Speci men Type: BLOOD SPECIMENOrdering Facility: [facility] Address: [address] [place] [address] Performed By: #### 3 016-3, , ####[facility] LABIA [id number] [place] [address] [place] Urea nitrogen [Mass/Vol] 11 mg/dL Normal 7-21 [facility] Comment on above: Order Comment: Speci men Type: BLOOD SPECIMENOrdering Facility: [facility] Address: [address] [place] [address] Performed By: #### 3 016-3, , ####[facility] LABCLIA [id number] [place] [id number] [place] ESR Westergren method (Bld) [Velocity]on 10-26-2024 ESR (Bld) [Velocity] 8 mm/h Normal 0-20 [facility] Comment on above: Order Comment: Speci men Type: BLOOD SPECIMENOrdering Facility: [facility] Address: [address] [place] [address] Performed By: #### 4 537-7, 43767-7 ####[facility] LABCLIA [id number] [place] [address] [place] Magnesium SerPl-mCncon 10-26 Magnesium [Mass/Vol] 2.1 mg/dL Normal 1.7-2.3 [facility] Comment on above: Order Comment: Speci men Type: BLOOD SPECIMENOrdering Facility: [facility] Address: [address] [place] [address] Performed By: #### 3 016-3, 30433-2, ####[facility] LABCLIA [id number] [place] [address] [place] TSH SerPl-aCncon 10-26-2024 TSH Qn 89.100 m[IU]/L High 0.270-4.200 [facility] Comment on above: Order Comment: Speci men Type: BLOOD SPECIMENOrdering Facility: [facility] Address: [address] [place] [address] Result Comment: If t he patient is , TSH reference range varies by gestational period: First Trimester (weeks 9-12): 0.180-2.990 mIU/L Second Trimester: 0.110-3.980 mIU/L Third Trimester: 0.480-4.710 mIU/L Juanjo Broussard et al. A Practical Approach for the Verifications and Determination of Site- and Trimester-Specific Reference Intervals for Thyroid Function tests in . Thyroid, 2019:29:3:412-420. Shilo Long, et al. 2017 Guidelines of the [place] Thyroid Association for the Diagnosis and Management of Thyroid Disease during and the . Thyroid, 2017:27:3:315-389. Performed By: #### 3 016-3, , ####[facility] [id number] [address] [place] Matilda 10-23-2024 CNPN Telephone (FAMSeWS) GRETA ANDRES ([id number]) 1990 F Date Time Provider Department 10/23/24 NAGI RED During your visit today, we recorded the following information about you: Mara Beach, RN 10/23/2024 9:23 AM Signed Pt calling in as she works at [employer] [employer] and had to call off of work last week due to a bad migraine and viral gastroenteritis. Pt started with the headache on Wednesday the and came [facility] Wed the . Received [...] fill out FMLA for minor illnesses and [employer] HR should know this. It's [...] Date Reviewed: 10/18/2024 Reviewed by: Nagi Ku APRN.DRAMATIC ARTS HISTORIAN - Fully Assessed Reason for Visit: [facility] Paperwork [4800] Prescriptions as of 10/24/2024 - methylPREDNISolone (MEDROL, [...] [K21.9] 02/21/2015 (more content not included)... Normal [facility] Office Visit Reporton 2023 Office Visit Report [facility] [address] [address] OFFICE VISIT Date of Service: 10/21/24 MR#: [id number] Acct: [id number] Patient: GRETA ANDRES ALEX Rep #: [id number] : 1990 Provider: SHANNEN Sanchez Age/Sex: 34/F Location: [facility] Status: Signed Employer Purchased Covid Test Note: Patient here today for Covid Testing, requested by their Employer. Assessment and Plan Assessment and Plan Orders: Orders POC Cepheid Covid, FluAB, RSV 10/21/24 11/04/24 1004 Date Alyssa PRIDE Cosigner Signature: Date (if applicable) CC: Normal [facility] Brain/Head without Contrast n 10-21-2024 Brain/Head without Contrast [facility] Imaging Services [address] [place] [address] Brain/Head without Contrast MR#: [id number] Acct: [id number] Name: GRETA ANDRES Rep #: [id number] : 1990 F 34 From: Supa muller DO PCP: Dr. Nagi Red MD Status: [facility] Study: Brain/Head without Contrast Date of Exam: 09/24 Exam# [id number] Ordering Dr: Rocio Higginbotham DO :[id number] EXAM: CT HEAD WITHOUT INTRAVENOUS CONTRAST CLINICAL [...] Nagi Red MD; Dr. Rocio Higginbotham DO Vegetable Vendor: Signed Normal [facility] Emergency Department Summary on 10-21-2024 Emergency Department Summary [facility] Medical Records Department [address] [place] [address] Emergency Department Summary 10/21/24 MR#: [id number] Acct: [id number] Name: GRETA ANDRES Rep #: [id number] : 1990 34 From: Rocio iHgginbotham DO PCP: Dr. Nagi Red MD Status:DEP [...] or aneurysms. Patient does complain of photophobia. [facility] Medical History Kidney stone Cancer Anemia Migraine [...] lymphadenopathy Allerg (more content not included)... Normal [facility] Office Visit Reporton 2023 Office Visit Report [facility] Services [address] [place] [address] OFFICE VISIT Date of Service: 10/21/24 MR#: [id number] Acct: [id number] Patient: GRETA ANDRES Rep #: [id number] : 1990 Provider: SHANNEN Sanchez Age/Sex: 34/F Location: [facility] Status: Signed Employer Purchased Covid Test Note: Patient here today for Covid Testing, requested by their Employer. Assessment and Plan Assessment and Plan Orders: Orders POC Cepheid Covid, FluAB, RSV 10/21/24 11/04/24 0741 Date Alyssa Leon Signature: Date (if applicable) CC: Normal [facility] Urgent Care Visit Reporton 1 12-21-2023 Urgent Care Visit Report [facility] [address] , [address] [place] [address] OFFICE VISIT Date of Service: 10/21/24 MR#: [id number] Acct: [id number] Name: GRETA ANDRES Rep #: [id number] : 1990 Provider: SHANNEN Sanchez Age/Sex: 34/F Location: [facility] Status: Signed Intake Vital Signs 09/01/24 07:14 [...] improve so went to Urgent care at [facility] Wednesday- dx with migraine and got injection [...] to in (more content not included)... [facility] (UCWSTR ) GRETA ANDRES ([id number]) 1990 F Date Time Provider Department 10/18/24 4:45 PM BOBBY PAIZ WSTR During your visit today, we recorded the following information about you: Temperature Pulse Respiration Blood pressure 98.2 degrees 77/minute 18/minute 118/76 Weight 88.6 kg Bobby Paiz APRN.DRAMATIC ARTS HISTORIAN 10/18/2024 8:01 PM Signed Subjective Headache Pertinent [...] 08/07/2013 Bipolar 1 disorder (HCC) 02/14/2018 Seeing [facility] Behavioral Medicine as of 01/2018 [...] classified, lower leg 08/20/2008 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 Normal [facility] ([id number]) 1990 F Date Time Provider Department 10/01/24 NAGI KU [facility] During your visit today, we recorded the following information about you: Nagi Ku APRN.DRAMATIC ARTS HISTORIAN 10/01/2024 8:17 AM Signed Please inform patient [...] Status:Closed by KRISHNA VILLANUEVA on 10/01/24 Normal [facility] Bacteria Ur Culton Bacteria identified Cx Nom (U) ORGANISM ID: 1 10,000 -<50,000 CFU/ml Normal urogenital lydia Normal [facility] Comment on above: Performed By: #### 6 30-4 ####[facility] [id number] [place] [address] [place] CNOVon 09-29-2024 CNOV Office Visit (UCWSTR ) GRETA ANDRES ([id number]) 1990 F Date Time Provider Department 09/29/24 4:15 PM KAREN JONES [facility] During your visit today, we recorded the following information about you: Temperature Pulse Respiration Blood pressure 98 degrees 60/minute 20/minute 131/80 Weight 86 kg Karen Jones APRN.DRAMATIC ARTS HISTORIAN 09/29/2024 4:53 PM Signed This note was created using MeSixtyriter. Subjective Greta Anrdes is a 34 year old female. 34 year old female with PMH HTN, asthma, migraine and chronic fatigue presents for complaitns. Acute onset one week ago +urgency +dysuria + back pain +blood noted in urine Denies N/V/D (althougth states she recently was with stomach bug) Denies cough Denies SOB or dyspnea Denies abdominal pain Seen September 01 for similar @ [facility] Diagnosed with UTI. Placed on Keflex, completed. 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 No steel division supervisor was used. Hematuria This is a new [...] 08/07/2013 Bipolar 1 disorder (HCC) 02/14/2018 Seeing [facility] Behavioral Medicine as of 01/2018 [...] 1999 due (more content not included)... Normal [facility] UA DIP, URINE (POC)on 2023 BILIRUBIN UA (POCT) Small Abnormal Negative [facility] CLARITY UA (POCT) Clear [facility] COLOR UA (POCT) Red [facility] GLUCOSE UA (POCT) Negative Negative mg/dL [facility] Hemoglobin Ql (U) Large Abnormal Negative [facility] Interpretation and review of laboratory results Abnormal [facility] KETONE UA (POCT) Negative Negative mg/dL [facility] LEUKOCYTES UA (POCT) Negative Negative [facility] NITRITE UA (POCT) Negative Negative [facility] PH UA (POCT) 6.0 4.5 - 8.0 [facility] Protein Ql (U) 100 mg/dL Abnormal Negative [facility] SPECIFIC GRAVITY UA (POCT) >=1.030 1.005 - 1.030 [facility] UROBILINOGEN UA (POCT) 1.0 Normal E.U./dL [facility] Location: [place], [address] [facility], [place], [address] [facility] POINT OF CARE [facility] Matilda 09-26-2024 [place] Telephone (PNRACH) GRETA ANDRES ([id number]) 1990 F Date Time Provider Department 09/26/24 CARLIE BROWNLEE PNMDNA During your visit today, we recorded the following information about you: Vinh Pierson MA 09/26/2024 9:48 AM Signed Order form completed by Carlie Brownlee DRAMATIC ARTS HISTORIAN: Multi Action 2 Formula: Baclofen 5%, Cyclobenzaprine HCI 2%, Diclofenac 3%, Gabapentin 10%, Lidocaine HCl 5% Topical Cream Sig: Apply 1-2 grams every 6-8 hours as needed for pain. Refills: 6 Compound Quantity: 180 gm Order form has been faxed to [facility] at [phone] with confirmation received. Allergies As of Date: [...] Encounter Status:Closed by VINH PIERSON on 09/26/24 [facility] CNOVon 09-21-2024 CNOV Office Visit (VENKATAWS ) GRETA ANDRES ([id number]) 1990 F Date Time Provider Department 09/21/24 11:00 AM RENARD ALMODOVAR During your visit today, we recorded the following information about you: Pulse Respiration Blood pressure Weight 78/minute 14/minute 123/81 86.6 kg Renard Almodovar, KIMBERLEY.DRAMATIC ARTS HISTORIAN 09/21/2024 11:00 AM Signed Chief Complaint Patient [...] 08/07/2013 Bipolar 1 disorder (HCC) 02/14/2018 Seeing [facility] Behavioral Medicine as of 01/2018 Bipolar 1 disorder ([facility]) Chronic fatigue disorder 03/19/2015 Congenital heart [...] spinal stenosis 04/25/2024 Lupus (systemic lupus erythematosus) ([facility]) Migraine without aura and without status [...] Intolerance Hear (more content not included)... Normal [facility] CNOVon 09-15-2024 CNOV Office Visit (UCWSTR ) GRETA [id number]) 1990 F Date Time Provider Department 09/15/24 7:15 AM SHANNON HAWKINS [facility] During your visit today, we recorded the following information about you: Temperature Pulse Respiration Blood pressure 97 degrees 81/minute 18/minute 137/91 Weight Last Period 87 kg 08/18/24 Shannon Hawkins, CARLYN 09/15/2024 8:18 AM Signed This note was created using MeSixtyriIndigoVision. Subjective Greta Andres is a 34 year [...] 08/07/2013 Bipolar 1 disorder (HCC) 02/14/2018 Seeing [facility] Behavioral Medicine as of 01/2018 [...] spinal stenosis 04/25/2024 Lupus (systemic lupus erythematosus) ([facility]) Migraine without aura and without status migrainosus, not intractable 05/20/2017 Multiple thyroid nodules 07/26/2019 Neoplasm of uncertain behavior of skin of back Obesity, Class I, BMI 30-34.9 03/03/2023 Other and unspecified ovarian cyst Ovarian cyst Other joint derangement, not elsewhere classified, lower leg 08/20/2008 Papillary thyroid carcinoma ([facility]) 07/21/2019 PMH - PAST MEDICAL HISTORY OF r thumb broken Post-surgical hypothyroidism 08/25/2019 Primary thyroid papillary carcinoma ([facility]) 07/21/2019 PTSD (post-traumatic stress disorder) 02/14/2018 PTSD (post-traumatic stress disorder) S/P total thyroidectomy 07/31/2019 Sacroiliitis, not elsewhere classified ([facility]) 02/20/2013 SI (sacroiliac) joint dysfunction 11/06/2015 Spinal [...] by mouth (more content not included)... Normal [facility] COVID AND INFLUENZA A/B AND RSV PCR, ROUTINEon 09-15-2024 SARS-CoV-2 (COVID-19) RNA PATRIA+probe Ql (Unsp spec) SARS-COV-2 (AGENT OF COVID-19) RNA: Not detected INFLUENZA A RNA: Not detected INFLUENZA B RNA: Not detected RESPIRATORY SYNCYTIAL VIRUS (RSV) RNA: Not detected Normal [facility] Comment on above: Performed By: #### C VFLRS ####[facility] [id number] [address] OF [facility] Urine Cultureon 09-02-2024 URC Culture exhibits no growth. Normal [facility] Comment on above: Performed By: #### M 100.2200 #### [facility] Laboratory [address] [facility]. [place], [place], [address] Abdomen/Pelvis without Conto n 09-01-2024 Abdomen/Pelvis without Cont [facility] Imaging Services [address] [place], [place] [address] Abdomen/Pelvis without Cont MR#: [id number] Acct: [id number] Name: GRETA ANDRES Rep #: [id number] : 1990 F 34 From: Oliverio kirkland MD PCP: Dr. Nagi Red MD Status: REG ER Study: Abdomen/Pelvis without Cont Date of Exam: 08/22 12/15 Exam# [id number] Ordering Dr: Ludin Adams DO :[id number] STUDY: CT ABDOMEN AND PELVIS WITHOUT CONTRAST [...] Nagi Red MD; Dr. Ludin Adams DO Vegetable Vendor: Signed Normal [facility] CBC W/Diff, Automatedon 10- Absolute Lymph 2.51 X10 3/uL Normal 0.83-4.51 [facility] Comment on above: Performed By: #### M 100.2200 #### [facility] [address] [place], [address] Absolute Neut 7.3 X10 3/uL Normal 2.0-7.7 [facility] Comment on above: Performed By: #### M 100.2200 #### [facility] [address] [place], [address] Basophils/100 WBC (Bld) 0.5 % Normal 0-1 [facility] Comment on above: Performed By: #### M 100.2200 #### [facility] [address] [place], [address] Eosinophils/100 WBC (Bld) 2.0 % Normal 0-5 [facility] Comment on above: Performed By: #### M 100.2200 #### [facility] [address] [place], [address] Erythrocyte distribution width (RBC) [Ratio] 14.0 % Normal 11.6-14.6 [facility] Comment on above: Performed By: #### M 100.2200 #### [facility] [address] [place], [address] Hematocrit (Bld) [Volume fraction] 43.2 % Normal 37-47 [facility] Comment on above: Performed By: #### M 100.2200 #### [facility] [address] [place], [address] Hemoglobin (Bld) [Mass/Vol] 14.6 g/dL Normal 12.0-15.0 [facility] Comment on above: Performed By: #### M 100.2200 #### [facility] [address] [place], [address] IG% 1.200 High 0.0-0.9 [facility] Comment on above: Result Comment: IG% - Immature Granulocytes (promyelocytes, myelocytes and metamyelocytes) > 1% indicates that a LEFT SHIFT is Present. Performed By: #### M 100.2200 #### [facility] [address] [place], [address] Lymphocytes/100 WBC (Bld) 23.6 % Normal 19-41 [facility] Comment on above: Performed By: #### M 100.2200 #### [facility] [address] [place], [address] MCH (RBC) [Entitic mass] 27.1 pg Normal 27.0-32.0 [facility] Comment on above: Performed By: #### M 100.2200 #### [facility] [address] [place], [address] MCHC (RBC) [Mass/Vol] 33.8 g/dL Normal 32-36 [facility] Comment on above: Performed By: #### M 100.2200 #### [facility] [address] [place], [address] MCV (RBC) [Entitic vol] 80.1 fL Low 81-99 [facility] Comment on above: Performed By: #### M 100.2200 #### [facility] [address] [place], [address] Monocytes/100 WBC (Bld) 4.5 % Normal 0-10 [facility] Comment on above: Performed By: #### M 100.2200 #### [facility] [address] [place], [address] Neutrophils/100 WBC (Bld) 68.2 % Normal 47-70 [facility] Comment on above: Performed By: #### M 100.2200 #### [facility] [address] [place], [address] Nucleated RBC (Bld) [#/Vol] 0 10*3/uL Normal 0-5 [facility] Comment on above: Performed By: #### M 100.2200 #### [facility] [address] [place], [address] Platelet mean volume (Bld) [Entitic vol] 9.8 fL Normal 6.2-12.0 [facility] Comment on above: Performed By: #### M 100.2200 #### [facility] [address] [place], [address] Platelets (Bld) [#/Vol] 214 10*3/uL Normal 150-450 [facility] Comment on above: Performed By: #### M 100.2200 #### [facility] [address] [place], [address] RBC (Bld) [#/Vol] 5.39 10*6/uL Normal 4.2-5.4 [facility] Comment on above: Performed By: #### M 100.2200 #### [facility] [address] [place], [address] RDW SD 40.5 fl Normal 35.1-43.9 [facility] Comment on above: Performed By: #### M 100.2200 #### [facility] [address] [place], [address] WBC (Bld) [#/Vol] 10.6 10*3/uL Normal 4.4-11.0 [facility] Comment on above: Performed By: #### M 100.2200 #### [facility] [address] [place], [address] Comprehensive Metabolic Prof ilon 09-01-2024 Albumin [Mass/Vol] 3.9 g/dL Normal 3.2-5.0 [facility] Comment on above: Performed By: #### M 100.2200 #### [facility] [address] [place], [address] Albumin/Globulin [Mass ratio] 1.0 {ratio} Normal 0.9-2.4 [facility] Comment on above: Performed By: #### M 100.2200 #### [facility] [address] [place], [address] ALK P 101 U/L Normal 45-117 [facility] Comment on above: Performed By: #### M 100.2200 #### [facility] [address] [place], [address] ALT [Catalytic activity/Vol] 27 U/L Normal 13-56 [facility] Comment on above: Performed By: #### M 100.0 #### [facility] [address] [place], [address] AST [Catalytic activity/Vol] 20 U/L Normal 15-37 [facility] Comment on above: Performed By: #### M 100.2200 #### [facility] [address] [place], [address] Bilirubin [Mass/Vol] 0.40 mg/dL Normal 0.20-1.00 [facility] Comment on above: Result Comment: For patients on eltrombopag therapy, use of Dimension Tad TBIL is not recommended. Performed By: #### M 100.2200 #### [facility] [address] [place], [address] BUN/CRE 9.8 RATIO Low 10-20 [facility] Comment on above: Performed By: #### M 100.2200 #### [facility] [address] [place], [address] CA,Total 9.0 mg/dL Normal 8.5-10.1 [facility] Comment on above: Performed By: #### M 100.2200 #### [facility] [address] [place], [address] Chloride [Moles/Vol] 109 mmol/L High 98-107 [facility] Comment on above: Performed By: #### M 100.2200 #### [facility] [address] [place], [address] CO2 [Moles/Vol] 24.0 mmol/L Normal 21.0-32.0 [facility] Comment on above: Performed By: #### M 100.2200 #### [facility] [address] [place], [address] Creatinine [Mass/Vol] 1.02 mg/dL Normal 0.55-1.02 [facility] Comment on above: Result Comment: The validity of the calculated GFR GFRAA in patients over 70 years has not been determined. Clinical correlation is essential. Performed By: #### M 100.2200 #### [facility] [address] [place], [address] ECRCL 82.89 ml/min Normal [facility] Comment on above: Performed By: #### M 100.2200 #### [facility] [address] [place], [address] EST GFR - AA 80 mL/min Normal >60 [facility] Comment on above: Result Comment: Afri can [place] GFR Calc Performed By: #### M 100.2200 #### [facility] [address] [place], [address] GAP 7 Normal 5-15 [facility] Comment on above: Performed By: #### M 100.2200 #### [facility] [address] [place], [address] GFR/1.73 sq M.predicted among non-blacks MDRD (S/P/Bld) [Vol rate/Area] 66 mL/min/{1.73_m2} Normal >60 [facility] Comment on above: Result Comment: Non- GFR Calc Performed By: #### M 100.2200 #### [facility] [address] [place], [address] Globulin (S) [Mass/Vol] 4.1 g/dL Normal 2.2-4.2 [facility] Comment on above: Performed By: #### M 100.2200 #### [facility] [address] [place], [address] Glucose [Mass/Vol] 140 mg/dL High 74-106 [facility] Comment on above: Result Comment: Fast ing Glucose result greater than or equal to 126 mg/dL suggests DIABETES MELLITUS per A.D.A. criteria. Performed By: #### M 100.2200 #### [facility] [address] [place], [address] Potassium [Moles/Vol] 3.5 mmol/L Normal 3.5-5.1 [facility] Comment on above: Performed By: #### M 100.2200 #### [facility] [address] [place], [address] Sodium [Moles/Vol] 140 mmol/L Normal 136-145 [facility] Comment on above: Performed By: #### M 100.2200 #### [facility] [address] [place], [address] T PROT 8.0 g/dL Normal 6.4-8.2 [facility] Comment on above: Performed By: #### M 100.2200 #### [facility] [address] [place], [address] Urea nitrogen [Mass/Vol] 10 mg/dL Normal 7-18 [facility] Comment on above: Performed By: #### M 100.2200 #### [facility] [address] [place], [address] Emergency Department Summary on 09-01-2024 Emergency Department Summary [facility] Medical Records Department [address] [place] [address] Emergency Department Summary 09/01/24 MR#: [id number] Acct: [id number] Name: GRETA ANDRES Rep #: [id number] : 1990 34 From: Ludin Adams DO [...] her pain a 7 out of 10. [facility] Medical History Kidney stone Cancer Anemia Migraine [...] following commands knew that she was at [facility] years 2023 Skin: Warm, dry, intact Const (more content not included)... Normal [facility] Lipaseon 09-01-2024 Lipase [Catalytic activity/Vol] 55 U/L Normal 13-75 [facility] Comment on above: Result Comment: Ozzie arrington note: LIPASE revised reference range effective 23. New Lipase methodology. Expected to produce lower values than the previous assay method. NEW Reference Range: 13 - 75 U/L Performed By: #### M 100.2200 #### [facility] [address] [place], [place], [id number] ,Urineon 09-01-2024 Beta HCG ( test) Ql (U) Negative Normal [facility] Comment on above: Order Comment: GREGG CHRISTINE TO SPECIFY Result Comment: Very dilute urine specimens, as indicated by a low specific gravity, may not contain hotel services sales representative levels of hCG. If is still suspected, a first morning urine specimen should be collected 48 hours later and tested. Performed By: #### M 100.2200 #### [facility] [address] [place], [address] Urinalysis, Completeon 09-01 CA OX CRYSTAL RARE Normal [facility] Comment on above: Order Comment: GREGG CHRISTINE TO SPECIFY Performed By: #### M 100.2200 #### [facility] [address] [place], [address] WBC 5-10 SEEN Normal 0-5 [facility] Comment on above: Order Comment: GREGG CHRISTINE TO SPECIFY Performed By: #### M 100.2200 #### [facility] [address] [place], [address] BACTERIA 2+ /hpf Normal None Seen [facility] Comment on above: Order Comment: GREGG CTOR TO SPECIFY Performed By: #### M 100.2200 #### [facility] [address] [place], [address] EPI,SQUAMOUS 5-10 SEEN Normal 5-10 [facility] Comment on above: Order Comment: GREGG CTOR TO SPECIFY Performed By: #### M 100.2200 #### [facility] [address] [place], [address] Mucus Ql (Urine sed) 1+ /hpf Normal [facility] Comment on above: Order Comment: GREGG CTOR TO SPECIFY Performed By: #### M 100.2200 #### [facility] [address] [place], [address] RBC 0 SEEN Normal 0-5 [facility] Comment on above: Order Comment: GREGG CTOR TO SPECIFY Performed By: #### M 100.2200 #### [facility] [address] [place], [address] Hepatitis B Surf AB - EMPon 08-21-2024 HEP B Surf Ab Reactive Normal [facility] Comment on above: Result Comment: Non Reactive: Inconsistent with immunity less than <10 mIU/mL Reactive: Consistent with immunity greater than or equal to 10 mIU/mL Performed By: #### L 501.2450, L700.6800 #### [facility] [address] [place], [place], [address] CNNURSEon 06-30-2024 [facility] GRETA ANDRES ([id number]) 1990 F Date Time Provider Department 06/30/24 10:00 AM [place] NURSE MONICA During your visit today, we [...] Encounter Status:Closed by NATA MORSE on 06/30/24 [facility] SURGICAL PATHOLOGYOrdered By : Rinku Webb on 06-20-2024 Case Report Surgical Pathology R eport Case: [id number] Authorizing Provider: Nagi Red MD Collected: 06/19/2024 03:07 PM Ordering Location: [facility] Received: 06/19/2024 03:33 PM Pathologist: Rinku Webb MD Specimen: Skin, Excision [facility] Work Phone: Clinical History x5zcbUVmIMCqi3erLXUx bGFuZzEw MdSyFxGmOpo6OPOydlG8Qrw6NLCs SJdqtM2mHDRiUYfiT4cutkMavHAt VFYtLSu1aD9sgMljjY5iGoPjZrHq RGNbgOBeF6BauE3wXUFqMBCiBW0r ZVxwYXIgfQ== [facility] Work Phone: FINAL DIAGNOSIS e1yjqIYaHLOznYWfIEBc NVxhbnNp EYDvaVUbP2HnlxaaWErxQM4zSI7h mDjucWOtpVZhYWDsDyAbl3fkj235 vNHbt4htJNMXjtdwgGb6wSicR29j z8C6UirjT73zbGXmUTC8RKHjZBNi yJVdTCEuCHS6SRDjbDBuH1hlLYSq KL2relyhLFdoZPwyMQAqaZU5WOTa rXEsQ2LaYVWhHDhzCQXwdst5CtPb Tz2mpQGrdRkgOFteYEIdZNRaETll RXNqIwPjRY7yP2jfzzcjpCAyuUN9 mIJqksCxNOSxZUGwiTMmu4wxtfyz lQIuXN1fDHODZISgNQQbWxnglh1g RG1beDRqLEUqqoKGLIZjE7RzbA3x MDcvMzAvMjAyNCBccGFyfQ== [facility] Work Phone: Gross Description r2etqGEcTWXmdZZxVBLb NVxhbnNp MARvhNPxX8MgghdwBRlsYV9yYC8q mUcukEDqsMFvYDTmWoTfx3hcj329 lTTnf4kpPTKNtalmaCd4oMfoN13v x9H4NwijL16ryJRgFTU1PTHuOIDg oVZfZMExHSA6SWXaiAZtX1fyJZAk QR6yhkyjPWjeMDcxVCKvjZG6NRHe uMYvA1VwSTFxLZwlYVXlzbp2TlWc Dw5diCLiiMjgJItqNjycdKjsv7Og dCBcXGlkIDUxMDAwIFxcbmggXFx0 QGKxPIqkrKTmOU4vkGpcYvzoaHir w2LxsQFcENgeGDWpMXNuHQaxIBWz A7ZGOTRuEavzDtNdSxGoEHo9JNj2 VC6VWgWgSEL4KPdmNCm6XPTwVBn8 BQnaEO7NGVZcHiv0Iqi2ThHcFPY6 PJbkCUvakJOjOCybd1UeTtYlBMAf DHlmnxI3ESHeooQahTztpZ7vOdNf AqLNPrTIf6brHQNIvJBkd0wbvbdq YOPneDZhWSeeKqGtKJVcyTRUg9Zh BWpmyHLvsczwwfMpIRVtF8BclfZh VTqtKVOcpz1sxBaaFOyxDURdOFJn k7DuDL05JPDdWZjiqWY4gIExjUXl PNysDC61AD7mKJWvtZ4nFH1iRRK9 LdY2qEMfFJ15sfD4wMIipSPygXTf t6ZcoA6lYXAaDWG6MJLtRBX6NWLe WWQciI3zAMluKORvqS9xk6WaKuKw KVXmFM6nyhA4nnY8RZJiJU2yhVRg USa9cNQqNNEwvm1xigH1HHTqYKTy tZEeYACtVZNhc5FwjXLamzKoRF1o RDH5bbqcOeDkUlSoxEMqGkeiU69n IGFuZCBleHRlbmRzIHRvIHdpdGhp wdWbUkWkZ63gyM7fvWikAZ7kXYBe y3HtfSKxI8ruMqMHtPPyJIPafJUq ffWqgYJ9VFCweGSwSFDziA3tUFBy BDUazntcPGInmRUaez8vQXqxJWHd TWIthFCiAMpjJCXlV3Ggf13fPIwt HD0hSBYknMWjmRwms0AwsWn4rDWp GSfuFLC3gfJfMBFfPWV8AXT0QKXz IHRpcHMsIEEyIHJlbWFpbmRlciBv YbQ5hBPexFBtWJseDYWebNYtKEtu VBMbC8Dqu4JgSOnvjKxgPYUaf18o yYMfNw3ilYHbAQY3VREdNFKklTTo AFVRxVrcrFJeVIy2POUtLZUwnCvt QKB3MM0yYWNqNTSfuFApFZpqH2ii DMMoQIEycUEqFNAzsqRYYPZuLb7z GC8kWBV2VSUlOtO3FQXFLFLgjjuv QECgZHYtkITDr2UqJYyjFWKiW8Tw N1UxnsB1v0bqqQfxm9IutEGxEF2u cGFyfQ== [facility] Work Phone: Performing Lab x3suaYUsFZCfpCNqZdKt MDAwXGFu r3vvQJUvqFDcMdTxSeBpGxMsTchu jQAbIMZmEvVug0akm879zUJft7rc BCYwHiQ1pZGqFPBpgDTjG212YBUu HHgzz3dny2UpPXXywYHda7H8WUDF vyfwvOm7wOamJ19gc0H5VbgrH9lk TDAbNBDgJ1SpFW3fNWBlXcs3FVR4 FYV5KRTcOJKcE3YsOG8kXCUqjDWr ZJj2d8ivnFqtXQAmTIW8n6lnWDhk dvNfMY9yan4uzIx5x7zpehBiQKVe RPShlOTXINNtD6XhyYmnQy2bfAw7 rOzoPxysBKT7Zsi0OY2mke82mhm3 nDqhOSDfndiiLnJ7KGcdDOPocivl LIi2KIneWSQfmFE7TOWwpCDeS6Fp BIexKV3dswp2HLN4COsdAMEtAaH6 YXDgwAEsXJWmoNfpNYjst249ORI2 VcMtBV1lG4Byl2M9gJ4ogCBlUAIq vGNzPpLpGWTcbh5fmDDrZPzmi7Gr BLK0fnG1nQYdpCWzISZoUJ51Xfwd f0RdUxxjz7SfT81txIY6VAcsp3uc WP3oUoL6yyQeNUjvb0vfdZ2rDlN2 HLvcTM0oAJ5rSESxrY3ccbqnAQOl PoEwxbnmSRSboOmgzcImEq4csLii RCC2JGewB0huvP3kFhT7RQueC0qz pK7tQTx6TFsgwFC8YERikK9oDN0k vzpee7poPUtcZDplUXXpvrA5fuXg ZAIqsDAmO7VdhO8aYCIsAJ1ntsny t7vpGVI4QCkaXXQoMDP4RmJaTHQp w6Jvryc8ChSqh6KwdXVnEUilV65j e477WUUxfjAlX3vwjKHgwptoxGIk hezvKIvcnwN1WIXvEHHzPGbfOEEt XGZzMjBcbGFuZzEwMzNcaGljaFxm MWrxFiFiNDQfLNisH6mwAfBzWfCn WAGLjURjqm8szYcjQXaqmMEjgBJi fDM5yM9oUEBgcuMzqk9rBXRzjBNU gTZ5YVnlybZxS5ggdtpqYHL5IKJj XCU0U2leJXLDdvAcJQFzZGQpmWXn ZBUHZRK0MQE2PLPhQMWRCQHtFYD5 DOY6PCNnTMQduSJvJPLgcuaiXSRu XHUnSSliWFNhCKEmDaGfyZvzoH9s HjEwBwPdKEojJI7vJTJpX0uhsJKj XLZzUGEuG1cvNlUuzI2faYoqFRzl ZjJcZnMyMFxsdHJjaCBMYWJvcmF0 y9F8YEhztJZwoyoaJKggynBxLSeh sgjxGQIlFKvxM2vkUkPaABWfnBoh JPwio5TaVAGyUMLsFfVjKOujXCT8 q9S4SWlhnQCcxwRKCuNVVR4tsGNs hlcbVY9ZDjdujPDruxyoTKkscgEb AYprtpjaRACmQTnuQ7pkEnCrJSKd kEfrVTpvw8PxQHPlDLFnDbIetAHo fQ== [facility] Work Phone: [facility] Work Phone: HISTORY PHYSICALon HISTORY PHYSICAL HNO ID: [id number] Author: JUAN DANIEL CONTRERAS MD Service: Pain Management Author Type: [...] 08/07/2013 Bipolar 1 disorder (HCC) 02/14/2018 Seeing [facility] Behavioral Medicine as of 01/2018 [...] spinal stenosis 04/25/2024 Lupus (systemic lupus erythematosus) ([facility]) Migraine without aura and without status [...] total thyroidectomy 07/31/2019 Sacroiliitis, not elsewhere classified ([facility]) 02/20/2013 SI (sacroiliac) joint dysfunction 11/06/2015 [...] acute dist (more content not included)... Normal [facility] OPERATIVE NOon 06-13-2024 OPERATIVE NO HNO ID: [id number] Author: JUAN DANIEL CONTRERAS MD Service: Pain Management Author Type: [...] RF ablation of the SI joint per [place] [employer] [employer]. PROCEDURE: Right SI joint BIPOLAR RADIOFREQUENCY [...] time and personally performed the procedure. SIGNATURE: Juan Daniel Contreras MD DATE: June 13, 2024 TIME: 11:15 AM [facility] Lower extremity vein - le fton 05-12-2024 IMPRESSION: Negative study for proximal DVT in the left lower extremity. Negative study for calf DVT in the left lower extremity. Negative study for superficial thrombophlebitis in the imaged segments of the left lower extremity. Vegetable Vendor: [facility] Transcribe Date/Time: May 12 2024 4:00P Dictated by : CRISTELA PARSONS MD This examination was interpreted and the report reviewed and electronically signed by: CRISTELA PARSONS MD on May 12 2024 4:00PM [facility] RADIOLOGY SYNGO * * *Final Report* * [...] spontaneous respirophasic flow. Normal response to augmentation. [employer] RADIOLOGY SYNGO Provider, [facility] - 05/12/2024 * * *Final Report* * [...] imaged segments of the left lower extremity. Vegetable Vendor: [employer] Transcribe Date/Time: May 12 2024 4:00P Dictated by : CRISTELA PARSONS MD This examination was interpreted and the report reviewed and electronically signed by: CRISTELA PARSONS MD on May 12 2024 4:00PM EST [facility] Radiology Study observation (narrative) [facility] US Lower extremity vein - le ftOrdered By: Ccf Provider on 05-12-2024 [facility] CHG US SOFT TISSUE HEAD & NE CK REAL TIME IMGE DOCMon 05-04-2024 Radiology Study [facility] (n[facility]ative[facility]&THYROGLOBULIN ABon 05-03-2024 Supervisor Extrusion review Cristi (Unsp spec) [Interp] SEE COMMENTS [facility] Comment on above: Thyroglobulin (Tg) l [...] testing methods are immunoenzymatic assays manufactured by [employer] and performed on the Color [employer] DXI 800. Values obtained from different assay methods or kits may be different and cannot be used interchangeably. The results cannot be interpreted as absolute evidence for the presence or absence of malignant disease. Test Performed by: [place] [address] [place] [address] Trail Construction Worker: Tennille Mejia Ph.D.; CLIA# [id number] Thyroglobulin [Mass/Vol] <0.1 ng/mL [facility] Comment on above: REFERENCE VALUE Athyrotic <0.1 Intact Thyroid <=33 Thyroglobulin Ab IA Qn <1.8 NINF [facility] CHG US SOFT TISSUE HEAD & NE CK REAL TIME IMGE DOCMon 05-01-2024 Caitlyn Rivera MD 11:36 PM ULTRASOUND NOTE Images were taken through the central and lateral neck bilaterally. RIGHT CENTRAL: there are two small lesions, likely benign LNs superior and anterior of the thyroidectomy bed measuring 0.4 x 0.2 x 0.4 cm and 0.4 x 0.2 x 0.7 cm RIGHT LATERAL: no suspicious nodes LEFT CENTRAL: No suspicious lesions LEFT LATERAL: No suspicious nodes [facility] TSHon 05-01-2024 Interpretation and review of laboratory results Normal [facility] TSH Qn 1.138 m[IU]/L [facility] US Unspecified body regionOr dered By: Unassigned Pacs on 05-01-2024 [facility] Work Phone: US Unspecified body regionon 05-01-2024 Radiology Study observation (narrative) [facility] STREP A MOLECULAR (POC)on Procedural Control Valid [facility] Strep A (POCT) Negative Negative [facility] STREP A MOLECULAR (POC)on Procedural Control Valid [facility] Strep A (POCT) Negative Negative [facility] CTA NECK W IVCONon [facility] XR Lumbar spine AP and Later al and obliqueon 03-29-2023 IMPRESSION: Negative lumbar spine x-ray. Vegetable Vendor: [employer] Transcribe Date/Time: Mar 29 2023 3:16P Dictated by : SRIDHAR ROSAS MD This examination was interpreted and the report reviewed and electronically signed by: SRIDHAR ROSAS MD on Mar 29 2023 3:17PM [facility] DIVISION OF RADIOLOGY * * *Final Report* [...] spine are presented. FINDINGS: There are five kyu-htp-sgerado lumbar vertebra. No fracture or subluxations are noted. Questionable L3 vertebral body bone island. The disc spaces are well preserved. There is no significant osteophyte formation. DIVISION OF RADIOLOGY Provider, [facility] - 03/29/2023 * * *Final Report* * [...] spine are presented. FINDINGS: There are five dmk-zro-afwcdiq lumbar vertebra. No fracture or subluxations are noted. Questionable L3 vertebral body bone island. The disc spaces are well preserved. There is no significant osteophyte formation. IMPRESSION IMPRESSION: Negative lumbar spine x-ray. Vegetable Vendor: [employer] Transcribe Date/Time: Mar 29 2023 3:16P Dictated by : SRIDHAR ROSAS MD This examination was interpreted and the report reviewed and electronically signed by: SRIDHAR ROSAS MD on Mar 29 2023 3:17PM [facility] XR Lumbar spine AP and Later al and obliqueOrdered By: Ccf Provider on 03-29-2023 [facility] XR Lumbar spine AP and Later al and obliqueon 03-27-2023 Radiology Study observation (narrative) [facility] XR FLUOROSCOPYon 02-12-2023 [facility] HCG ( test) Ql (U)o n 10-23-2022 Beta HCG ( test) Ql (U) Negative Normal NEGATIVE [facility] Comment on above: Performed By: #### 2 106-3 #### [facility] [address] [place] [address] Paper Bag Press Operator - Rachelle MULLINS [id number] ABDOMEN FLAT AND UPRIGHTon 1 11-30-2021 ABDOMEN FLAT AND UPRIGHT EXAM: ABDOMEN FLAT AND UPRIGHT HISTORY: Abdominal pain COMPARISON: 05/01/2022 KUB IMPRESSION: No free air or obstruction. Moderate stool mainly in the right colon and sigmoid. Normal [facility] [place] US,HEAD/NECK TISSUES,REAL TIMEon 09-16-2022 Caitlyn Rivera MD 11:59 PM ULTRASOUND NOTE Images [...] 0.9 cm LEFT LATERAL: No suspicious nodes [facility] Radiology Study observation (narrative) [facility] TSHon 09-16-2022 Interpretation and review of laboratory results Normal [facility] TSH Qn 3.175 m[IU]/L [facility] US Unspecified body regionOr dered By: Unassigned Pacs on 09-16-2022 [facility] Work Phone: US Unspecified body regionon 09-16-2022 Radiology Study observation (narrative) [facility] Comprehensive metabolic 2000 panelon 07-06-2022 Albumin [Mass/Vol] 4.9 g/dL 3.9 - 4.9 g/dL [facility] ALP [Catalytic activity/Vol] 65 U/L 34 - 123 U/L [facility] ALT [Catalytic activity/Vol] 26 U/L 7 - 38 U/L [facility] Anion gap [Moles/Vol] 11 mmol/L 9 - 18 mmol/L [facility] AST [Catalytic activity/Vol] 29 U/L 13 - 35 U/L [facility] Bilirubin [Mass/Vol] 0.5 mg/dL 0.2 - 1 .3 mg/dL [facility] Calcium [Mass/Vol] 9.3 mg/dL 8.5 - 10. 2 mg/dL [facility] Chloride [Moles/Vol] 103 mmol/L 97 - 10 5 mmol/L [facility] CO2 [Moles/Vol] 25 mmol/L 22 - 30 mmol/L [facility] Creatinine [Mass/Vol] 0.86 mg/dL 0.58 - 0.96 mg/dL [facility] Estimated Glomerular Filtration Rate 93 mL/min/1.73m >=60 mL/min/1.73 m [facility] Glucose [Mass/Vol] 86 mg/dL 74 - 99 mg/dL [facility] Potassium [Moles/Vol] 4.0 mmol/L 3.7 - 5.1 mmol/L [facility] Protein [Mass/Vol] 7.9 g/dL 6.3 - 8.0 g/dL [facility] Sodium [Moles/Vol] 139 mmol/L 136 - 144 mmol/L [facility] Urea nitrogen [Mass/Vol] 12 mg/dL 7 - 21 mg/dL [facility] LIPID PANEL, NONFASTINGon Cholesterol [Mass/Vol] 214 mg/dL High <200 mg/dL [facility] HDL Cholesterol, Nonfasting 47 mg/dL >39 mg/dL [facility] LDL Cholesterol, Nonfasting 141 mg/dL High <100 mg/dL [facility] LDL/HDL Ratio, Nonfasting 3.00 mg/dL High <2.54 mg/dL [facility] Non HDL Cholesterol, Nonfasting 167 mg/dL High <130 mg/dL [facility] Total Chol/HDL Ratio, Nonfasting 4.55 mg/dL <5.10 mg/dL [facility] Triglycerides, Nonfasting 132 mg/dL <150 mg/dL [facility] VLDL Cholesterol, Nonfasting 26 mg/dL <30 mg/dL [facility] ABDOMEN FLATon 05-01-2022 ABDOMEN FLAT EXAMINATION: ABDOMEN [...] 3. Nonobstructive bowel pattern No convincing Normal [facility] URINALYSIS with reflex to CU LTUREon 05-01-2022 BACTERIA Normal TRACE [facility] Comment on above: Performed By: #### U AR #### [facility] [address] [place] [address] Paper Bag Press Operator - Rachelle MULLINS [id number] Performed for [facility] [address] [place], [place] [address] Bilirubin Ql (U) Negative Normal NEGATIVE [facility] Comment on above: Performed By: #### U AR #### [facility] [address] [place] [address] Paper Bag Press Operator - Rachelle MULLINS [id number] Performed for [facility] [address] [place], [place] [address] Clarity (U) CLEAR Normal CLEAR [facility] Comment on above: Performed By: #### U AR #### [facility] [address] [place] [address] Paper Bag Press Operator - Rachelle MULLINS [id number] Performed for [facility] [address] [place], [place] [address] Color (U) YELLOW Normal YELLOW [facility] Comment on above: Performed By: #### U AR #### [facility] [address] [place] [address] Paper Bag Press Operator - Rachelle MULLINS [id number] Performed for [facility] [address] [place], [place] [address] Glucose Ql (U) Negative Normal NEGATIVE [facility] Comment on above: Performed By: #### U AR #### [facility] [address] [place] [address] Paper Bag Press Operator - Rachelle MULLINS [id number] Performed for [facility] [address] [place], [place] [address] Hemoglobin Ql (U) Negative Normal NEGATIVE [facility] Comment on above: Performed By: #### U AR #### [facility] [address] [place] [address] Paper Bag Press Operator - Rachelle MULLINS [id number] Performed for [facility] [address] [place], [place] [address] HMICRO MICROSCOPIC Normal [facility] Comment on above: Performed By: #### U AR #### [facility] [address] [place] [address] Paper Bag Press Operator - Rachelle MULLINS [id number] Performed for [facility] [address] [place] [address] Hyaline casts (Urine sed) [#/Area] Normal 0-8 [facility] Comment on above: Performed By: #### U AR #### [facility] [address] [place] [address] Paper Bag Press Operator - Rachelle MULLINS [id number] Performed for [facility] [address] [place] [address] KETONE TRACE Abnormal NEGATIVE [facility] Comment on above: Performed By: #### U AR #### [facility] [address] [place] [address] Paper Bag Press Operator - Rachelle MULLINS [id number] Performed for [facility] [address] [place], [place] [address] Leukocyte esterase Test strip Ql (U) Negative Normal TRACE [facility] Comment on above: Performed By: #### U AR #### [facility] [address] [place] [address] Paper Bag Press Operator - Rachelle MULLINS [id number] Performed for [facility] [address] [place], [place] [address] Nitrite Ql (U) Negative Normal NEGATIVE [facility] Comment on above: Performed By: #### U AR #### [facility] [address] [place], [place] [address] Paper Bag Press Operator - Rachelle MULLINS [id number] Performed for [facility] [address] [place], [place] [address] pH (U) 6.0 [pH] Normal 5.5-7.5 [facility] Comment on above: Performed By: #### U AR #### [facility] [address] [place] [address] Paper Bag Press Operator - Rachelle MULLINS [id number] Performed for [facility] [address] [place], [place] [address] Protein Ql (U) Negative Normal NEGATIVE [facility] Comment on above: Performed By: #### U AR #### [facility] [address] [place] [address] Paper Bag Press Operator - Rachelle MULLINS [id number] Performed for [facility] [address] [place], [place] [address] RBC LM.HPF (Urine sed) [#/Area] Normal 0-4 [facility] Comment on above: Performed By: #### U AR #### [facility] [address] [place] [address] Paper Bag Press Operator - Rachelle MULLINS [id number] Performed for [facility] [address] [place], [place] [address] Specific gravity (U) [Rel density] 1.028 Normal 1.010-1.035 [facility] Comment on above: Performed By: #### U AR #### [facility] [address] [place] [address] Paper Bag Press Operator - Rachelle MULLINS [id number] Performed for [facility] [address] [place], [place] [address] SQUAMOUS EPITHELIALS Normal 0-5 [facility] Comment on above: Performed By: #### U AR #### [facility] [address] [place] [address] Paper Bag Press Operator - Rachelle MULLINS [id number] Performed for [facility] [address] [place], [place] [address] Urobilinogen Qn (U) 1.0 {Herbert'U}/dL Normal <=1.0 [facility] Comment on above: Performed By: #### U AR #### [facility] [address] [place], [place] [address] Paper Bag Press Operator - Rachelle MULLINS [id number] Performed for [facility] [address] [place], [place] [address] WBC LM.HPF (Urine sed) [#/Area] Normal 0-5 [facility] Comment on above: Performed By: #### U AR #### [facility] [address] [place], [place] [address] Paper Bag Press Operator - Rachelle MULLINS [id number] Performed for [facility] [address] [place], [place] [address] [place] US,HEAD/NECK TISSUES,REAL TIMEon 03-20-2022 Radiology Study observation (narrative) [facility] THYROGLOBULIN&THYROGLOBULIN ABon 03-19-2022 Supervisor Extrusion review Cristi (Unsp spec) [Interp] SEE COMMENTS [facility] Comment on above: Thyroglobulin (Tg) l [...] testing methods are immunoenzymatic assays manufactured by [employer] and performed on the [employer] DXI 800. Values obtained from different assay methods or kits may be different and cannot be used interchangeably. The results cannot be interpreted as absolute evidence for the presence or absence of malignant disease. Test Performed by: [facility] [address] [place] [address] Trail Construction Worker: Iram Cuellar M.D. Ph.D.; CLIA# [id number] Thyroglobulin [Mass/Vol] <0.1 ng/mL [facility] Comment on above: REFERENCE VALUE Athyrotic <0.1 Intact Thyroid <=33 Thyroglobulin Ab IA Qn <1.8 <1.8 IU/mL [facility] No Panel InformationOrdered By: Unassigned Pacs on 03-18-2022 [facility] Work Phone: [place] US,HEAD/NECK TISSUES,REAL TIMEon 03-18-2022 Caitlyn Rivera MD 2:15 PM ULTRASOUND NOTE Images [...] 0.2 cm LEFT LATERAL: No suspicious nodes [facility] TSHon 03-18-2022 Interpretation and review of laboratory results Normal [facility] TSH Qn 1.140 m[IU]/L [facility] US Unspecified body regionon 03-18-2022 Radiology Study observation (narrative) [facility] MANDIBLE COMPLETEon 03-11-20 MANDIBLE COMPLETE EXAM: SOFT TISSUE NE CK [...] of the left mandible is noted. Radiopaque zoroastrianism associated with the crown of molar within the right mandible are noted. Temporomandibular articulations unremarkable without significant degenerative change. IMPRESSION: 1. Unremarkable soft tissue neck. Prevertebral soft tissues, epiglottis and area of glottic folds appear otherwise unremarkable. 2. Prior dental repair. 3. No acute mandibular fracture or dislocation. Temporomandibular articulations appear otherwise unremarkable. Normal [facility] SOFT TISSUE NECK AP & LATERA Enrique [...] of the left mandible is noted. Radiopaque zoroastrianism associated with the crown of molar within the right mandible are noted. Temporomandibular articulations unremarkable without significant degenerative change. IMPRESSION: 1. Unremarkable soft tissue neck. Prevertebral soft tissues, epiglottis and area of glottic folds appear otherwise unremarkable. 2. Prior dental repair. 3. No acute mandibular fracture or dislocation. Temporomandibular articulations appear otherwise unremarkable. Normal [facility] CORONAVIRUS ABBOTTon 11-15- 021 HMOLE TESTING PERFORMED BY MOLECULAR METHOD Normal [facility] Comment on above: Performed By: #### C OVABOT #### [facility] [address] [place] [address] Paper Bag Press Operator - Rachelle MULLINS [id number] HPCRA TEST PERFORMED USING MANRIQUEZ ID NOW Normal [facility] Comment on above: Performed By: #### C OVABOT #### [facility] [address] [place] [address] Paper Bag Press Operator - Rachelleparveen Hill HARPREET [id number] SARS-CoV-2 (COVID-19) RNA PATRIA+probe Ql (Unsp spec) Detected Abnormal NOT DETECTED [facility] Comment on above: Performed By: #### C JERROD #### [facility] [address] [place] [address] Paper Bag Press Operator - Rachelleparveen [place] KATIEIA [id number] XR Ankle - left AP and Later al and obliqueon 07-17-2021 IMPRESSION: Small stuart int effusion of the left ankle. No acute fractures seen. Vegetable Vendor: [employer] Transcribe Date/Time: Jul 17 2021 12:37P Dictated by : SRIDHAR ROSAS MD This examination was interpreted and the report reviewed and electronically signed by: SRIDHAR ROSAS MD on Jul 17 2021 12:40PM [facility] DIVISION OF RADIOLOGY * * *Final Report* [...] soft tissue swelling. DIVISION OF RADIOLOGY Provider, [facility] Kayli [facility] - 07/17/2021 * * *Final Report* * [...] the left ankle. No acute fractures seen. Vegetable Vendor: [employer] Transcribe Date/Time: Jul 17 2021 12:37P Dictated by : SRIDHAR ROSAS MD This examination was interpreted and the report reviewed and electronically signed by: SRIDHAR ROSAS MD on Jul 17 2021 12:40PM EST [facility] Radiology Study observation (narrative) [facility] XR Ankle - left AP and Later al and obliqueOrdered By: [facility]cf Provider on 07-17-2021 [facility] Ammoniaon 02-08-2021 Ammonia (P) [Mass/Vol] 27 umol/L Normal 11-51 [facility] Reference [facility] Comment on above: Performed By: #### N H3, MG1, CMP, CBCDIF, LI, VPA, XB12F #### [facility] Routine Lab [address] [place], [place] [address] CBC and Differentialon 02-08 Abs Baso <0.03 Normal <0.11 [facility] Reference Lab Comment on above: Performed By: #### N H3, MG1, CMP, CBCDIF, LI, VPA, XB12F #### [facility] Routine Lab [address] [place], [place] [address] Abs [place] 0.56 k/uL Normal <0.87 [facility] Reference Lab Comment on above: Performed By: #### N H3, MG1, CMP, CBCDIF, LI, VPA, XB12F #### [facility] Routine Lab [address] [place], [place] [address] Abs Neut 8.43 k/uL High 1.45-7.50 [facility] Reference Lab Comment on above: Performed By: #### N H3, MG1, CMP, CBCDIF, LI, VPA, XB12F #### [facility] Routine Lab [address] [place], [place] [address] Absolute nRBC <0.01 Normal <0.01 [facility] Reference Lab Comment on above: Performed By: #### N H3, MG1, CMP, CBCDIF, LI, VPA, XB12F #### [facility]ine [facility] [address] [place] [address] Basophils/100 WBC (Bld) 0.2 % Normal [facility] Reference Lab Comment on above: Performed By: #### N H3, MG1, CMP, CBCDIF, LI, VPA, XB12F #### [facility]ine [facility] [address] [place] [address] DTYPE ADIFF Normal [facility] Reference Lab Comment on above: Performed By: #### N H3, MG1, CMP, CBCDIF, LI, VPA, XB12F #### [facility]ine Lab [address] [place] [phone] Eosinophils (Bld) [#/Vol] 0.12 10*3/uL Normal <0.46 [facility] Reference Lab Comment on above: Performed By: #### N H3, MG1, CMP, CBCDIF, LI, VPA, XB12F #### [facility]ine [facility] [address] [place] [phone] Eosinophils/100 WBC (Bld) 1.0 % Normal [facility] Reference Lab Comment on above: Performed By: #### N H3, MG1, CMP, CBCDIF, LI, VPA, XB12F #### [facility] Routine Lab [address] [place] [phone] Erythrocyte distribution width (RBC) [Ratio] 13.4 % Normal 11.5-15.0 [facility] Reference Lab Comment on above: Performed By: #### N H3, MG1, CMP, CBCDIF, LI, VPA, XB12F #### [facility]ine [facility] [address] [place] [address] Hematocrit (Bld) [Volume fraction] 44.6 % Normal 36.0-46.0 [facility] Reference Lab Comment on above: Performed By: #### N H3, MG1, CMP, CBCDIF, LI, VPA, XB12F #### [facility]ine [facility] [address] [place], [place] [address] Hemoglobin (Bld) [Mass/Vol] 14.0 g/dL Normal 11.5-15.5 [facility] Reference Lab Comment on above: Performed By: #### N H3, MG1, CMP, CBCDIF, LI, VPA, XB12F #### [facility] Routine Lab [address] [place] [address] Lymphocytes (Bld) [#/Vol] 2.63 10*3/uL Normal 1.00-4.00 [facility] Reference Lab Comment on above: Performed By: #### N H3, MG1, CMP, CBCDIF, LI, VPA, XB12F #### [facility] [address] [place] [address] Lymphocytes/100 WBC (Bld) 22.4 % Normal [facility] Reference Lab Comment on above: Performed By: #### N H3, MG1, CMP, CBCDIF, LI, VPA, XB12F #### [facility] Routine Lab [address] [place] [address] MCH (RBC) [Entitic mass] 27.9 pG Normal 26.0-34.0 [facility] Reference Lab Comment on above: Performed By: #### N H3, MG1, CMP, CBCDIF, LI, VPA, XB12F #### [facility] Routine Lab [address] [place] [address] MCHC (RBC) [Mass/Vol] 31.4 g/dL Normal 30.5-36.0 [facility] Reference Lab Comment on above: Performed By: #### N H3, MG1, CMP, CBCDIF, LI, VPA, XB12F #### [facility]ine [facility] [address] [place], [place] [address] MCV (RBC) [Entitic vol] 88.8 fL Normal 80.0-100.0 [facility] Reference Lab Comment on above: Performed By: #### N H3, MG1, CMP, CBCDIF, LI, VPA, XB12F #### [facility]ine [facility] [address] [place], [place] [address] Monocytes/100 WBC (Bld) 4.8 % Normal [facility] Lab Comment on above: Performed By: #### N H3, MG1, CMP, CBCDIF, LI, VPA, XB12F #### [facility] Routine Lab [address] [place], [place] [address] Neutrophils/100 WBC (Bld) 71.6 % Normal [facility] Lab Comment on above: Performed By: #### N H3, MG1, CMP, CBCDIF, LI, VPA, XB12F #### [facility] [address] [place] [address] NRBCs 0.0 /100 WBC Normal 0 [facility] Reference Lab Comment on above: Performed By: #### N H3, MG1, CMP, CBCDIF, LI, VPA, XB12F #### [facility]ine [facility] [address] [place] [address] Platelet mean volume (Bld) [Entitic vol] 10.9 fL Normal 9.0-12.7 [facility] Lab Comment on above: Performed By: #### N H3, MG1, CMP, CBCDIF, LI, VPA, XB12F #### [facility]ine [facility] [address] [place], [place] [address] Platelets (Bld) [#/Vol] 278 10*3/uL Normal 150-400 [facility] Reference Lab Comment on above: Performed By: #### N H3, MG1, CMP, CBCDIF, LI, VPA, XB12F #### [facility] Routine [facility] [address] [place], [place] [address] RBC (Bld) [#/Vol] 5.02 10*6/uL Normal 3.90-5.20 [facility] Reference Lab Comment on above: Performed By: #### N H3, MG1, CMP, CBCDIF, LI, VPA, XB12F #### [facility] Routine [facility] [address] [place], [place] [address] WBC (Bld) [#/Vol] 11.76 10*3/uL High 3.70-11.00 [facility] Reference Lab Comment on above: Performed By: #### N H3, MG1, CMP, CBCDIF, LI, VPA, XB12F #### [facility] Routine Lab [address] [place], [place] [address] Comp Metabolic Panelon 02-08 Albumin [Mass/Vol] 4.5 g/dL Normal 3.9-4.9 [facility] Reference Lab Comment on above: Performed By: #### N H3, MG1, CMP, CBCDIF, LI, VPA, XB12F #### [facility]ine Lab [address] [place] [address] ALP [Catalytic activity/Vol] 59 U/L Normal 34-123 [facility] Reference Lab Comment on above: Performed By: #### N H3, MG1, CMP, CBCDIF, LI, VPA, XB12F #### [facility] Routine Lab [address] [place] [address] ALT [Catalytic activity/Vol] 9 U/L Normal 7-38 [facility] Reference Lab Comment on above: Performed By: #### N H3, MG1, CMP, CBCDIF, LI, VPA, XB12F #### [facility] Routine Lab [address] [place], [place] [address] Anion gap [Moles/Vol] 13 mmol/L Normal 9-18 [facility] Reference Lab Comment on above: Performed By: #### N H3, MG1, CMP, CBCDIF, LI, VPA, XB12F #### [facility] Routine [facility] [address] [place], [place] [address] AST [Catalytic activity/Vol] 18 U/L Normal 13-35 [facility] Reference Lab Comment on above: Performed By: #### N H3, MG1, CMP, CBCDIF, LI, VPA, XB12F #### [facility] Routine Lab [address] [place] [address] Bilirubin Ql (U) 0.2 mg/dL Normal 0.2-1.3 [facility] [place] [facility] Reference Lab Comment on above: Performed By: #### N H3, MG1, CMP, CBCDIF, LI, VPA, XB12F #### [facility] Routine [facility] [address] [place] [address] Calcium [Mass/Vol] 9.2 mg/dL Normal 8.5-10.2 [facility] Reference Lab Comment on above: Performed By: #### N H3, MG1, CMP, CBCDIF, LI, VPA, XB12F #### [facility] Routine Lab [address] [place] [address] Chloride [Moles/Vol] 109 mmol/L High 97-105 [facility] Reference Lab Comment on above: Performed By: #### N H3, MG1, CMP, CBCDIF, LI, VPA, XB12F #### [facility]ine [facility] [address] [place] [address] CO2 [Moles/Vol] 21 mmol/L Low 22-30 [facility] Reference Lab Comment on above: Performed By: #### N H3, MG1, CMP, CBCDIF, LI, VPA, XB12F #### [facility]ine [facility] [address] [place] [address] Creatinine [Mass/Vol] 0.75 mg/dL Normal 0.58-0.96 [facility] Reference Lab Comment on above: Performed By: #### N H3, MG1, CMP, CBCDIF, LI, VPA, XB12F #### [facility] Routine Lab [address] [place] [address] eGFR- Amer. >60 Normal [facility] Reference Lab Comment on above: Performed By: #### N H3, MG1, CMP, CBCDIF, LI, VPA, XB12F #### [facility] Routine Lab [address] [place], [place] [address] GFR/1.73 sq M predicted among non-blacks MDRD (S/P/Bld) [Vol rate/Area] mL/min/{1.73_m2} Normal [facility] Reference Lab Comment on above: Performed By: #### N H3, MG1, CMP, CBCDIF, LI, VPA, XB12F #### [facility] Routine Lab [address] [place] [address] Glucose [Mass/Vol] 63 mg/dL Low 74-99 [facility] Reference Lab Comment on above: Performed By: #### N H3, MG1, CMP, CBCDIF, LI, VPA, XB12F #### [facility] Routine Lab [address] [place] [address] Potassium [Moles/Vol] 3.6 mmol/L Low 3.7-5.1 [facility] Reference Lab Comment on above: Performed By: #### N H3, MG1, CMP, CBCDIF, LI, VPA, XB12F #### [facility] Routine Lab [address] [place] [address] Protein [Mass/Vol] 7.5 g/dL Normal 6.3-8.0 [facility] Reference Lab Comment on above: Performed By: #### N H3, MG1, CMP, CBCDIF, LI, VPA, XB12F #### [facility] Routine Lab [address] [place] [address] Sodium [Moles/Vol] 143 mmol/L Normal 136-144 [facility] Reference Lab Comment on above: Performed By: #### N H3, MG1, CMP, CBCDIF, LI, VPA, XB12F #### [facility] Routine Lab [address] [place] [address] [id number] Urea nitrogen [Mass/Vol] 7 mg/dL Normal 7-21 [facility] Reference Lab Comment on above: Performed By: #### N H3, MG1, CMP, CBCDIF, LI, VPA, XB12F #### [facility] Routine Lab [address] [place], [place] [address] Lithiumon 02-08-2021 [place] [Moles/Vol] 0.7 mmol/L Normal 0.6-1.2 [facility] Reference Lab Comment on above: Performed By: #### N H3, MG1, CMP, CBCDIF, LI, VPA, XB12F #### [facility] Routine Lab [address] [place] [address] Magnesiumon 02-08-2021 Magnesium [Mass/Vol] 2.2 mg/dL Normal 1.7-2.3 [facility] Reference Lab Comment on above: Performed By: #### N H3, MG1, CMP, CBCDIF, LI, VPA, XB12F #### [facility] Routine Lab [address] [place] [address] Valproic Acidon 02-08-2021 Valproic Acid 144.8 ug/mL High 50-100 [facility] Reference Lab Comment on above: Performed By: #### N H3, MG1, CMP, CBCDIF, LI, VPA, XB12F #### [facility] Routine Lab [address] [place] [address] Vit B12 / Folate For Ref Lab Use Onlyon 02-08-2021 Cobalamin (Vitamin B12) [Mass/Vol] 502 pg/mL Normal 232-1245 [facility] Reference Lab Comment on above: Performed By: #### N H3, MG1, CMP, CBCDIF, LI, VPA, XB12F #### [facility] Routine Lab [address] [place], [place] [phone] Folate [Mass/Vol] 9.1 ng/mL Normal >4.7 [facility] Reference Lab Comment on above: Performed By: #### N H3, MG1, CMP, CBCDIF, LI, VPA, XB12F #### [facility] Routine Lab [address] [place], [place] [phone] Comp Metabolic Panelon 08-14 Albumin [Mass/Vol] 4.2 g/dL Normal 3.9-4.9 [facility] Reference Lab Comment on above: Performed By: #### C RADHA LI #### [facility] Routine [facility] [address] [place], [place] [address] ALP [Catalytic activity/Vol] 61 U/L Normal 34-123 [facility] Reference Lab Comment on above: Performed By: #### C RADHA LI #### [facility] Routine Lab [address] [place] [address] ALT [Catalytic activity/Vol] 10 U/L Normal 7-38 [facility] Reference Lab Comment on above: Performed By: #### C RADHA, LI #### [facility] Routine Lab [address] [place], [place] [phone] Anion gap [Moles/Vol] 11 mmol/L Normal 9-18 [facility] Reference Lab Comment on above: Performed By: #### C RADHA LI #### [facility] Routine Lab [address] [place], [place] [address] AST [Catalytic activity/Vol] 21 U/L Normal 13-35 [facility] Reference Lab Comment on above: Performed By: #### C RADHA, LI #### [facility] Routine Lab [address] [place], [place] [address] Bilirubin Ql (U) 0.2 mg/dL Normal 0.2-1.3 [facility] [place] [facility] Reference Lab Comment on above: Performed By: #### C RADHA, LI #### [facility] Routine Lab [address] [place], [place] [address] Calcium [Mass/Vol] 9.1 mg/dL Normal 8.5-10.2 [facility] Reference Lab Comment on above: Performed By: #### C RADHA, LI #### [facility] Routine Lab [address] [place], [place] [address] Chloride [Moles/Vol] 106 mmol/L High 97-105 [facility] Reference Lab Comment on above: Performed By: #### C MP, LI #### [facility] Routine Lab [address] [place], [place] [address] CO2 [Moles/Vol] 23 mmol/L Normal 22-30 [facility] Reference Lab Comment on above: Performed By: #### C MP, LI #### [facility] Routine Lab [address] [place], [place] [address] Creatinine [Mass/Vol] 0.75 mg/dL Normal 0.58-0.96 [facility] Reference Lab Comment on above: Performed By: #### C MP, LI #### [facility] Routine Lab [address] [place] [address] eGFR- Amer. >60 Normal [facility] Reference Lab Comment on above: Performed By: #### C MP, LI #### [facility] Routine Lab [address] [place] [address] GFR/1.73 sq M predicted among non-blacks MDRD (S/P/Bld) [Vol rate/Area] mL/min/{1.73_m2} Normal [facility] Reference Lab Comment on above: Performed By: #### C MP, LI #### [facility] Routine Lab [address] [place], [place] [address] Glucose [Mass/Vol] 73 mg/dL Low 74-99 [facility] Reference Lab Comment on above: Performed By: #### C MP, LI #### [facility] Routine Lab [address] [place] [address] Potassium [Moles/Vol] 3.7 mmol/L Normal 3.7-5.1 [facility] Reference Lab Comment on above: Performed By: #### C MP, LI #### [facility] Routine Lab [address] [place], [place] [address] Protein [Mass/Vol] 7.0 g/dL Normal 6.3-8.0 [facility] Reference Lab Comment on above: Performed By: #### C RADHA, LI #### [facility] Routine Lab [address] [place], [place] [address] Sodium [Moles/Vol] 140 mmol/L Normal 136-144 [facility] Reference Lab Comment on above: Performed By: #### C RADHA, LI #### [facility] Routine Lab [address] [place], [place] [address] Urea nitrogen [Mass/Vol] 7 mg/dL Normal 7-21 [facility] Reference Lab Comment on above: Performed By: #### C RADHA, LI #### [facility] Routine Lab [address] [place], [place] [address] Lithiumon 08-14-2020 [place] [Moles/Vol] mmol/L Low 0.6-1.2 [facility] Reference Lab Comment on above: Performed By: #### C RADHA, LI #### [facility] Routine Lab [address] [place], [place] [address] NM THY CA UPTAKEon 0 NM THY [...] NO EVIDENCE FOR DISTANT FUNCTIONAL THYROID METASTASES. Vegetable Vendor: [employer] Trans[employer] Date/Time: May 01 2020 9:59A Dictated by : IKER SILVA MD This examination was interpreted and the report reviewed and electronically signed by: IKER SILVA MD on May 01 2020 10:32AM EST [id number] [facility] THY CA WBon 05-01-2020 OR THY CA WB * * *Final Report* * * DATE OF EXAM: May 01 2020 9:42AM FVN [id number] - OR THY CA WB / PROCEDURE REASON: Malignant [...] NO EVIDENCE FOR DISTANT FUNCTIONAL THYROID METASTASES. Vegetable Vendor: [employer] Transcribe Date/Time: May 01 2020 9:59A Dictated by : IKER SILVA MD This examination was interpreted and the report reviewed and electronically signed by: IKER SILVA MD on May 01 2020 10:32AM EST [id number] [facility] NM TUMOR SPECTon 05-01-2020 NM TUMOR [...] NO EVIDENCE FOR DISTANT FUNCTIONAL THYROID METASTASES. Vegetable Vendor: [employer] Transcribe Date/Time: May 01 2020 9:59A Dictated by : IKER SILVA MD This examination was interpreted and the report reviewed and electronically signed by: IKER SILVA MD on May 01 2020 10:32AM EST [id number] [facility] Comp Metabolic Panelon 01-24 Albumin [Mass/Vol] 4.7 g/dL Normal 3.9-4.9 [facility] Reference Lab Comment on above: Performed By: #### C MP, LI #### [facility] Routine Lab [address] [place] [address] ALP [Catalytic activity/Vol] 65 U/L Normal 34-123 [facility] Reference Lab Comment on above: Performed By: #### C MP, LI #### [facility] Routine [facility] [address] [place] [address] ALT [Catalytic activity/Vol] 11 U/L Normal 7-38 [facility] Reference Lab Comment on above: Performed By: #### C MP, LI #### [facility] Routine Lab [address] [place] [address] Anion gap [Moles/Vol] 12 mmol/L Normal 9-18 [facility] Reference Lab Comment on above: Performed By: #### C MP, LI #### [facility] Routine Lab [address] [place] [address] AST [Catalytic activity/Vol] 21 U/L Normal 13-35 [facility] Reference Lab Comment on above: Performed By: #### C MP, LI #### [facility] Routine Lab [address] [place] [phone] Bilirubin Ql (U) 0.3 mg/dL Normal 0.2-1.3 [facility] [place] [facility] Reference Lab Comment on above: Performed By: #### C MP, LI #### [facility] Routine Lab [address] [place] [address] Calcium [Mass/Vol] 9.4 mg/dL Normal 8.5-10.2 [facility] Reference Lab Comment on above: Performed By: #### C MP, LI #### [facility] Routine Lab [address] [place] [id number] Chloride [Moles/Vol] 103 mmol/L Normal 97-105 [facility] Reference Lab Comment on above: Performed By: #### C MP, LI #### [facility] Routine Lab [address] [place], [place] [address] CO2 [Moles/Vol] 23 mmol/L Normal 22-30 [facility] Reference Lab Comment on above: Performed By: #### Bipin GARCIA, LI #### [facility] Routine Lab [address] [place], [place] [address] Creatinine [Mass/Vol] 0.86 mg/dL Normal 0.58-0.96 [facility] Reference Lab Comment on above: Performed By: #### C RADHA, LI #### [facility] Routine Lab [address] [place], [place] [address] eGFR- Amer. >60 Normal [facility] Reference Lab Comment on above: Performed By: #### Bipin GARCIA, LI #### [facility] Routine Lab [address] [place], [place] [address] GFR/1.73 sq M predicted among non-blacks MDRD (S/P/Bld) [Vol rate/Area] mL/min/{1.73_m2} Normal [facility] Reference Lab Comment on above: Performed By: #### Bipin GARCIA, LI #### [facility] Routine Lab [address] [place], [place] [address] Glucose [Mass/Vol] 77 mg/dL Normal 74-99 [facility] Reference Lab Comment on above: Performed By: #### Bipin GARCIA, LI #### [facility] Routine Lab [address] [place], [place] [address] Potassium [Moles/Vol] 4.3 mmol/L Normal 3.7-5.1 [facility] Reference Lab Comment on above: Performed By: #### Bipin GARCIA, LI #### [facility] Routine Lab [address] [place], [place] [address] Protein [Mass/Vol] 7.2 g/dL Normal 6.3-8.0 [facility] Reference Lab Comment on above: Performed By: #### Bipin GARCIA, LI #### [facility] Routine Lab [address] [place], [place] [phone] Sodium [Moles/Vol] 138 mmol/L Normal 136-144 [facility] Reference Lab Comment on above: Performed By: #### C RADHA, VJ #### [facility] Routine Lab [address] [place], [place] [id number] Urea nitrogen [Mass/Vol] 9 mg/dL Normal 7-21 [facility] Reference Lab Comment on above: Performed By: #### C RADHA, VJ #### [facility] Routine Lab [address] [place], [place] [address] Lithiumon 01-25-2020 [place] [Moles/Vol] 0.9 mmol/L Normal 0.6-1.2 [facility] Reference Lab Comment on above: Performed By: #### C VJ GARCIA #### [facility] Routine Lab [address] [place], [place] [address] Vital Signs Date Time Vital Sign Value Performing Clinician Facility 06-15-2025 12:06-0400 Diastolic blood pressure 100 mm[Hg] Greta Mbanugo DO Work Phone: [facility] 06-15-2025 12:06-0400 Heart rate 91 /min Greta Mbanugo DO Work Phone: [facility] 06-15-2025 12:06-0400 Systolic blood pressure 136 mm[Hg] Greta Mbanugo DO Work Phone: [facility] 06-07-2025 12:58-0400 Body height 165.1 cm Sarah Dusz VINYL INSTALLER.DRAMATIC ARTS HISTORIAN Work Phone: [facility] 06-07-2025 12:58-0400 Diastolic blood pressure 98 mm[Hg] Sarah Dusz VINYL INSTALLER.DRAMATIC ARTS HISTORIAN Work Phone: [facility] 06-07-2025 12:58-0400 Heart rate 88 /min Sarah Dusz VINYL INSTALLER.DRAMATIC ARTS HISTORIAN Work Phone: [facility] 06-07-2025 12:58-0400 Systolic blood pressure 159 mm[Hg] Sarah Dusz VINYL INSTALLER.DRAMATIC ARTS HISTORIAN Work Phone: [facility] 05-08-2025 09:06-0400 Diastolic blood pressure 94 mm[Hg] Nagi Red MD Work Phone: [facility] 05-08-2025 09:06-0400 Systolic blood pressure 118 mm[Hg] Nagi Red MD Work Phone: [facility] 05-08-2025 08:39-0400 Body mass index (BMI) [Ratio] 32.45 kg/m2 Nagi Red MD Work Phone: [facility] 05-08-2025 08:39-0400 Body temperature 98.01 [degF] Nagi Red MD Work Phone: [facility] 05-08-2025 08:39-0400 Body weight 88.45 kg Nagi Red MD Work Phone: [facility] 05-08-2025 08:39-0400 Heart rate 70 /min Nagi Red MD Work Phone: [facility] 05-08-2025 08:39-0400 Respiratory rate 16 /min Nagi Red MD Work Phone: [facility] 03-02-2025 08:41-0400 Body mass index (BMI) [Ratio] 31.88 kg/m2 Carlie Brownlee VINYL INSTALLER.DRAMATIC ARTS HISTORIAN Work Phone: [facility] 03-02-2025 08:41-0400 Body weight 86.9 kg Carlie Brownlee APRN.DRAMATIC ARTS HISTORIAN Work Phone: [facility] 03-02-2025 08:41-0400 Heart rate 87 /min Carlie Brownlee VINYL INSTALLER.DRAMATIC ARTS HISTORIAN Work Phone: [facility] 03-02-2025 08:41-0400 SaO2% (BldA) [Mass fraction] 97 % Carlie Brownlee VINYL INSTALLER.DRAMATIC ARTS HISTORIAN Work Phone: [facility] 01-05-2025 08:19-0500 Body mass index (BMI) [Ratio] 32.21 kg/m2 Tomas De Leonw VINYL INSTALLER.DRAMATIC ARTS HISTORIAN Work Phone: [facility] 01-05-2025 08:19-0500 Body temperature 98.01 [degF] Tomas Moomaw VINYL INSTALLER.DRAMATIC ARTS HISTORIAN Work Phone: [facility] 01-05-2025 08:19-0500 Body weight 87.8 kg Tomas Moomaw VINYL INSTALLER.DRAMATIC ARTS HISTORIAN Work Phone: [facility] 01-05-2025 08:19-0500 Diastolic blood pressure 79 mm[Hg] Tomas Moomaw VINYL INSTALLER.DRAMATIC ARTS HISTORIAN Work Phone: [facility] 01-05-2025 08:19-0500 Heart rate 84 /min Tomas Moomaw VINYL INSTALLER.DRAMATIC ARTS HISTORIAN Work Phone: [facility] 01-05-2025 08:19-0500 Respiratory rate 18 /min Tomas Moomaw VINYL INSTALLER.DRAMATIC ARTS HISTORIAN Work Phone: [facility] 01-05-2025 08:19-0500 SaO2% (BldA) [Mass fraction] 99 % Tomas Moomaw VINYL INSTALLER.DRAMATIC ARTS HISTORIAN Work Phone: [facility] 01-05-2025 08:19-0500 Systolic blood pressure 115 mm[Hg] Tomas Moomaw VINYL INSTALLER.DRAMATIC ARTS HISTORIAN Work Phone: [facility] 12-15-2024 13:44-0500 Body mass index (BMI) [Ratio] 32.62 kg/m2 Renard Almodovar VINYL INSTALLER.DRAMATIC ARTS HISTORIAN Work Phone: [facility] 12-15-2024 13:44-0500 Body weight 88.91 kg Renard Almodovar VINYL INSTALLER.DRAMATIC ARTS HISTORIAN Work Phone: [facility] 12-15-2024 13:44-0500 Diastolic blood pressure 88 mm[Hg] Renard Almodovar VINYL INSTALLER.DRAMATIC ARTS HISTORIAN Work Phone: [facility] 12-15-2024 13:44-0500 Heart rate 75 /min Renard Almodovar VINYL INSTALLER.DRAMATIC ARTS HISTORIAN Work Phone: [facility] 12-15-2024 13:44-0500 Respiratory rate 14 /min Renard Almodovar VINYL INSTALLER.DRAMATIC ARTS HISTORIAN Work Phone: [facility] 12-15-2024 13:44-0500 Systolic blood pressure 154 mm[Hg] Renard Almodovar VINYL INSTALLER.DRAMATIC ARTS HISTORIAN Work Phone: [facility] 11-02-2024 09:15-0500 Body mass index (BMI) [Ratio] 30.87 kg/m2 Renard Almodovar VINYL INSTALLER.DRAMATIC ARTS HISTORIAN Work Phone: [facility] 11-02-2024 09:15-0500 Body weight 85.28 kg Renard Almodovar VINYL INSTALLER.DRAMATIC ARTS HISTORIAN Work Phone: [facility] 11-02-2024 09:15-0500 Diastolic blood pressure 85 mm[Hg] Renard Almodovar VINYL INSTALLER.DRAMATIC ARTS HISTORIAN Work Phone: [facility] 11-02-2024 09:15-0500 Heart rate 112 /min Renard Almodovar VINYL INSTALLER.DRAMATIC ARTS HISTORIAN Work Phone: [facility] 11-02-2024 09:15-0500 Systolic blood pressure 125 mm[Hg] Renard Almodovar VINYL INSTALLER.DRAMATIC ARTS HISTORIAN Work Phone: [facility] 10-26-2024 08:19-0500 Diastolic blood pressure 100 mm[Hg] Christine WILCOX-C Work Phone: [facility] 10-26-2024 08:19-0500 Heart rate 80 /min Christine WILCOX-C Work Phone: [facility] 10-26-2024 08:19-0500 Systolic blood pressure 140 mm[Hg] Christine Dean PA-C Work Phone: [facility] 10-26-2024 07:18-0500 Body mass index (BMI) [Ratio] 32.02 kg/m2 Christine WILCOX-C Work Phone: [facility] 10-26-2024 07:18-0500 Body temperature 97.39 [degF] Christine Dean PA-C Work Phone: [facility] 10-26-2024 07:18-0500 Body weight 88.45 kg Christine Dean PA-C Work Phone: [facility] 10-26-2024 07:18-0500 Respiratory rate 18 /min Christine Dean PA-C Work Phone: [facility] 10-26-2024 07:18-0500 SaO2% (BldA) [Mass fraction] 99 % Christine Dean PA-C Work Phone: [facility] 10-18-2024 16:16-0500 Body mass index (BMI) [Ratio] 32.08 kg/m2 Bobby Praisler-Wood VINYL INSTALLER.DRAMATIC ARTS HISTORIAN Work Phone: [facility] 10-18-2024 16:16-0500 Body temperature 98.2 [degF] Bobby Praisler-Wood VINYL INSTALLER.DRAMATIC ARTS HISTORIAN Work Phone: [facility] 10-18-2024 16:16-0500 Body weight 88.6 kg Bobby Praisler-Wood VINYL INSTALLER.DRAMATIC ARTS HISTORIAN Work Phone: [facility] 10-18-2024 16:16-0500 Diastolic blood pressure 76 mm[Hg] Bobby Praisler-Wood VINYL INSTALLER.DRAMATIC ARTS HISTORIAN Work Phone: [facility] 10-18-2024 16:16-0500 Heart rate 77 /min Bobby Praisler-Wood VINYL INSTALLER.DRAMATIC ARTS HISTORIAN Work Phone: [facility] 10-18-2024 16:16-0500 Respiratory rate 18 /min Bobby Praisler-Wood VINYL INSTALLER.DRAMATIC ARTS HISTORIAN Work Phone: [facility] 10-18-2024 16:16-0500 SaO2% (BldA) [Mass fraction] 98 % Bobby Praisler-Wood VINYL INSTALLER.DRAMATIC ARTS HISTORIAN Work Phone: [facility] 10-18-2024 16:16-0500 Systolic blood pressure 118 mm[Hg] Bobby Praisler-Wood VINYL INSTALLER.DRAMATIC ARTS HISTORIAN Work Phone: [facility] 09-29-2024 15:40-0500 Body mass index (BMI) [Ratio] 31.13 kg/m2 Karen Jones VINYL INSTALLER.DRAMATIC ARTS HISTORIAN Work Phone: [facility] 09-29-2024 15:40-0500 Body temperature 98.01 [degF] Karen Jones VINYL INSTALLER.DRAMATIC ARTS HISTORIAN Work Phone: [facility] 09-29-2024 15:40-0500 Body weight 86 kg Karen Jones VINYL INSTALLER.DRAMATIC ARTS HISTORIAN Work Phone: [facility] 09-29-2024 15:40-0500 Diastolic blood pressure 80 mm[Hg] Karen Jones VINYL INSTALLER.DRAMATIC ARTS HISTORIAN Work Phone: [facility] 09-29-2024 15:40-0500 Heart rate 60 /min Karen Jones VINYL INSTALLER.DRAMATIC ARTS HISTORIAN Work Phone: [facility] 09-29-2024 15:40-0500 Respiratory rate 20 /min Karen Jones VINYL INSTALLER.DRAMATIC ARTS HISTORIAN Work Phone: [facility] 09-29-2024 15:40-0500 SaO2% (BldA) [Mass fraction] 99 % Karen Jones VINYL INSTALLER.DRAMATIC ARTS HISTORIAN Work Phone: [facility] 09-29-2024 15:40-0500 Systolic blood pressure 131 mm[Hg] Karen Jones VINYL INSTALLER.DRAMATIC ARTS HISTORIAN Work Phone: [facility] 09-21-2024 10:40-0400 Body mass index (BMI) [Ratio] 31.36 kg/m2 Renard Almodovar VINYL INSTALLER.DRAMATIC ARTS HISTORIAN Work Phone: [facility] 09-21-2024 10:40-0400 Body weight 86.64 kg Renard Regan VINYL INSTALLER.DRAMATIC ARTS HISTORIAN Work Phone: [facility] 09-21-2024 10:40-0400 Diastolic blood pressure 81 mm[Hg] Renard Burchoble VINYL INSTALLER.DRAMATIC ARTS HISTORIAN Work Phone: [facility] 09-21-2024 10:40-0400 Heart rate 78 /min Renard Almodovar VINYL INSTALLER.DRAMATIC ARTS HISTORIAN Work Phone: [facility] 09-21-2024 10:40-0400 Respiratory rate 14 /min Renard Almodovar APRN.DRAMATIC ARTS HISTORIAN Work Phone: [facility] 09-21-2024 10:40-0400 Systolic blood pressure 123 mm[Hg] Renard Almodovar APRN.DRAMATIC ARTS HISTORIAN Work Phone: [facility] 09-15-2024 07:21-0400 Body mass index (BMI) [Ratio] 31.5 kg/m2 Shannon Athy PA-C Work Phone: [facility] 09-15-2024 07:21-0400 Body temperature 97 [degF] Shannon Athy PA-C Work Phone: [facility] 09-15-2024 07:21-0400 Body weight 87 kg Shannon Athy PA-C Work Phone: [facility] 09-15-2024 07:21-0400 Diastolic blood pressure 91 mm[Hg] Shannon Athy PA-C Work Phone: [facility] 09-15-2024 07:21-0400 Heart rate 81 /min Shannon Athy PA-C Work Phone: [facility] 09-15-2024 07:21-0400 Respiratory rate 18 /min Shannon Athy PA-C Work Phone: [facility] 09-15-2024 07:21-0400 SaO2% (BldA) [Mass fraction] 99 % Shannon Athy PA-C Work Phone: [facility] 09-15-2024 07:21-0400 Systolic blood pressure 137 mm[Hg] Shannon Athy PA-C Work Phone: [facility] 06-19-2024 13:11-0400 Body mass index (BMI) [Ratio] 30.22 kg/m2 Nagi Red MD Work Phone: [facility] 06-19-2024 13:11-0400 Body weight 83.46 kg Nagi Red MD Work Phone: [facility] 06-19-2024 13:11-0400 Diastolic blood pressure 90 mm[Hg] Nagi Red MD Work Phone: [facility] 06-19-2024 13:11-0400 Heart rate 64 /min Nagi Red MD Work Phone: [facility] 06-19-2024 13:11-0400 Systolic blood pressure 138 mm[Hg] Nagi eRd MD Work Phone: [facility] 05-12-2024 13:45-0400 Body mass index (BMI) [Ratio] 30.71 kg/m2 Sakshi Podlogar VINYL INSTALLER.DRAMATIC ARTS HISTORIAN Work Phone: [facility] 05-12-2024 13:45-0400 Body weight 84.82 kg Sakshi Podlogar VINYL INSTALLER.DRAMATIC ARTS HISTORIAN Work Phone: [facility] 05-12-2024 13:45-0400 Diastolic blood pressure 70 mm[Hg] Sakshi Podlogar VINYL INSTALLER.DRAMATIC ARTS HISTORIAN Work Phone: [facility] 05-12-2024 13:45-0400 Heart rate 84 /min Sakshi Podlogar VINYL INSTALLER.DRAMATIC ARTS HISTORIAN Work Phone: [facility] 05-12-2024 13:45-0400 Respiratory rate 16 /min Sakshi Podlogar VINYL INSTALLER.DRAMATIC ARTS HISTORIAN Work Phone: [facility] 05-12-2024 13:45-0400 SaO2% (BldA) [Mass fraction] 98 % Sakshi Podlogar VINYL INSTALLER.DRAMATIC ARTS HISTORIAN Work Phone: [facility] 05-12-2024 13:45-0400 Systolic blood pressure 124 mm[Hg] Sakshi Podlogar VINYL INSTALLER.DRAMATIC ARTS HISTORIAN Work Phone: [facility] 05-01-2024 11:53-0400 Body height 165.1 cm Caitlyn Rivera MD Work Phone: [facility] 05-01-2024 11:53-0400 Body mass index (BMI) [Ratio] 31.6 kg/m2 Caitlyn Rivera MD Work Phone: [facility] 05-01-2024 11:53-0400 Body temperature 97.5 [degF] Caitlyn Rivera MD Work Phone: [facility] 05-01-2024 11:53-0400 Body weight 86.14 kg Caitlyn Rivera MD Work Phone: [facility] 05-01-2024 11:53-0400 Diastolic blood pressure 79 mm[Hg] Caitlyn Rivera MD Work Phone: [facility] 05-01-2024 11:53-0400 Heart rate 76 /min Caitlyn Rivera MD Work Phone: [facility] 05-01-2024 11:53-0400 Respiratory rate 16 /min Caitlyn Rivera MD Work Phone: [facility] 05-01-2024 11:53-0400 SaO2% (BldA) [Mass fraction] 99 % Caitlyn Rivera MD Work Phone: [facility] 05-01-2024 11:53-0400 Systolic blood pressure 136 mm[Hg] Caitlyn Rivera MD Work Phone: [facility] 04-26-2024 11:22-0400 Body height 166.2 cm Pulm Wstr Work Phone: [facility] 04-26-2024 11:22-0400 Body mass index (BMI) [Ratio] 30.38 kg/m2 Pulm Wstr Work Phone: [facility] 04-26-2024 11:22-0400 Body weight 83.92 kg Pulm Wstr Work Phone: [facility] 04-26-2024 11:22-0400 Heart rate 91 /min Pulm Wstr Work Phone: [facility] 04-26-2024 11:22-0400 Respiratory rate 14 /min Pulm Wstr Work Phone: [facility] 04-26-2024 11:22-0400 SaO2% (BldA) [Mass fraction] 96 % Pulm Wstr Work Phone: [facility] 04-25-2024 11:11-0400 Body mass index (BMI) [Ratio] 30.62 kg/m2 Nagi Red MD Work Phone: [facility] 04-25-2024 11:11-0400 Body weight 83.46 kg Nagi Red MD Work Phone: [facility] 04-25-2024 11:11-0400 Diastolic blood pressure 96 mm[Hg] Nagi Red MD Work Phone: [facility] 04-25-2024 11:11-0400 Heart rate 84 /min Nagi Red MD Work Phone: [facility] 04-25-2024 11:11-0400 Respiratory rate 16 /min Nagi Red MD Work Phone: [facility] 04-25-2024 11:11-0400 Systolic blood pressure 138 mm[Hg] Nagi Red MD Work Phone: [facility] 03-25-2024 08:49-0400 Body mass index (BMI) [Ratio] 30.79 kg/m2 Nagi Red MD Work Phone: [facility] 03-25-2024 08:49-0400 Body weight 83.92 kg Nagi Red MD Work Phone: [facility] 03-25-2024 08:49-0400 Diastolic blood pressure 88 mm[Hg] Nagi Red MD Work Phone: [facility] 03-25-2024 08:49-0400 Heart rate 115 /min Nagi Red MD Work Phone: [facility] 03-25-2024 08:49-0400 Respiratory rate 12 /min Nagi Red MD Work Phone: [facility] 03-25-2024 08:49-0400 SaO2% (BldA) [Mass fraction] 98 % Nagi Red MD Work Phone: [facility] 03-25-2024 08:49-0400 Systolic blood pressure 132 mm[Hg] Nagi Red MD Work Phone: [facility] 01-11-2024 08:53-0500 Heart rate 88 /min Galilea Bogner PA-C Work Phone: [facility] 01-11-2024 08:42-0500 Body temperature 98.1 [degF] Galilea Bogner PA-C Work Phone: [facility] 01-11-2024 08:42-0500 Body weight 86.18 kg Galilea Bogner PA-C Work Phone: [facility] 01-11-2024 08:42-0500 Diastolic blood pressure 82 mm[Hg] Galilea Bogner PA-C Work Phone: [facility] 01-11-2024 08:42-0500 Respiratory rate 16 /min Galilea Bogner PA-C Work Phone: [facility] 01-11-2024 08:42-0500 SaO2% (BldA) [Mass fraction] 98 % Galilea Bogner PA-C Work Phone: [facility] 01-11-2024 08:42-0500 Systolic blood pressure 124 mm[Hg] Galilea Bogner PA-C Work Phone: [facility] 01-07-2024 11:10-0500 Body temperature 98.2 [degF] Krislyn Aberegg PA Work Phone: [facility] 01-07-2024 11:10-0500 Body weight 87.45 kg Krislyn Aberegg PA Work Phone: [facility] 01-07-2024 11:10-0500 Diastolic blood pressure 92 mm[Hg] Krislyn Aberegg PA Work Phone: [facility] 01-07-2024 11:10-0500 Heart rate 80 /min Krislyn Aberegg PA Work Phone: [facility] 01-07-2024 11:10-0500 Respiratory rate 18 /min Krislyn Aberegg PA Work Phone: [facility] 01-07-2024 11:10-0500 SaO2% (BldA) [Mass fraction] 98 % Krislyn Aberegg PA Work Phone: [facility] 01-07-2024 11:10-0500 Systolic blood pressure 127 mm[Hg] Krislyn Aberegg PA Work Phone: [facility] 10-04-2023 08:56-0500 Body temperature 98.1 [degF] Bobby Praisler-Wood VINYL INSTALLER.DRAMATIC ARTS HISTORIAN Work Phone: [facility] 10-04-2023 08:56-0500 Body weight 88 kg Bobby Praisler-Wood VINYL INSTALLER.DRAMATIC ARTS HISTORIAN Work Phone: [facility] 10-04-2023 08:56-0500 Diastolic blood pressure 64 mm[Hg] Bobby Praisler-Wood VINYL INSTALLER.DRAMATIC ARTS HISTORIAN Work Phone: [facility] 10-04-2023 08:56-0500 Heart rate 86 /min Bobby Praisler-Wood VINYL INSTALLER.DRAMATIC ARTS HISTORIAN Work Phone: [facility] 10-04-2023 08:56-0500 Respiratory rate 20 /min Bobby Praisler-Wood VINYL INSTALLER.DRAMATIC ARTS HISTORIAN Work Phone: [facility] 10-04-2023 08:56-0500 SaO2% (BldA) [Mass fraction] 98 % Bobby Praisler-Wood VINYL INSTALLER.DRAMATIC ARTS HISTORIAN Work Phone: [facility] 10-04-2023 08:56-0500 Systolic blood pressure 102 mm[Hg] Bobby Praisler-Wood VINYL INSTALLER.DRAMATIC ARTS HISTORIAN Work Phone: [facility] 06-08-2023 10:25-0400 Body weight 91.35 kg Carlie Brownlee VINYL INSTALLER.DRAMATIC ARTS HISTORIAN Work Phone: [facility] 06-08-2023 10:25-0400 Heart rate 113 /min Carlie Brownlee VINYL INSTALLER.DRAMATIC ARTS HISTORIAN Work Phone: [facility] 06-08-2023 10:25-0400 SaO2% (BldA) [Mass fraction] 98 % Carlie Brownlee VINYL INSTALLER.DRAMATIC ARTS HISTORIAN Work Phone: [facility] 04-27-2023 10:05-0400 Body weight 95.71 kg Renard Almodovar VINYL INSTALLER.DRAMATIC ARTS HISTORIAN Work Phone: [facility] 04-27-2023 10:05-0400 Diastolic blood pressure 86 mm[Hg] Renard Almodovar VINYL INSTALLER.DRAMATIC ARTS HISTORIAN Work Phone: [facility] 04-27-2023 10:05-0400 Heart rate 100 /min Renard Almodovar VINYL INSTALLER.DRAMATIC ARTS HISTORIAN Work Phone: [facility] 04-27-2023 10:05-0400 Respiratory rate 16 /min Renard Almodovar VINYL INSTALLER.DRAMATIC ARTS HISTORIAN Work Phone: [facility] 04-27-2023 10:05-0400 Systolic blood pressure 122 mm[Hg] Renard Almodovar VINYL INSTALLER.DRAMATIC ARTS HISTORIAN Work Phone: [facility] 03-03-2023 11:04-0400 Diastolic blood pressure 90 mm[Hg] Nagi Red MD Work Phone: [facility] 03-03-2023 11:04-0400 Systolic blood pressure 116 mm[Hg] Nagi Red MD Work Phone: [facility] 03-03-2023 10:20-0400 Body weight 89.36 kg Nagi Red MD Work Phone: [facility] 03-03-2023 10:20-0400 Heart rate 86 /min Nagi Red MD Work Phone: [facility] 02-12-2023 14:13-0400 Diastolic blood pressure 98 mm[Hg] Juan Daniel Contreras MD Work Phone: [facility] 02-12-2023 14:13-0400 Heart rate 95 /min Juan Daniel Contreras MD Work Phone: [facility] 02-12-2023 14:13-0400 Respiratory rate 16 /min Juan Daniel Contreras MD Work Phone: [facility] 02-12-2023 14:13-0400 SaO2% (BldA) [Mass fraction] 98 % Juan Daniel Contreras MD Work Phone: [facility] 02-12-2023 14:13-0400 Systolic blood pressure 144 mm[Hg] Juan Daniel Contreras MD Work Phone: [facility] 02-12-2023 13:56-0400 Body temperature 97 [degF] Juan Daniel Contreras MD Work Phone: [facility] 02-12-2023 12:59-0400 Body height 165.1 cm Juan Daniel Contreras MD Work Phone: [facility] 02-12-2023 12:59-0400 Body weight 87.54 kg Juan Daniel Contreras MD Work Phone: [facility] 01-22-2023 09:18-0500 Body temperature 97.81 [degF] Nagi Penddemetrius VINYL INSTALLER.DRAMATIC ARTS HISTORIAN Work Phone: [facility] 01-22-2023 09:18-0500 Body weight 87.54 kg Nagi Penddemetrius VINYL INSTALLER.DRAMATIC ARTS HISTORIAN Work Phone: [facility] 01-22-2023 09:18-0500 Diastolic blood pressure 102 mm[Hg] Nagi Pendlemaría elena VINYL INSTALLER.DRAMATIC ARTS HISTORIAN Work Phone: [facility] 01-22-2023 09:18-0500 Heart rate 94 /min Nagi Pendlebury VINYL INSTALLER.DRAMATIC ARTS HISTORIAN Work Phone: [facility] 01-22-2023 09:18-0500 Respiratory rate 18 /min Nagi Pendlemaría elena VINYL INSTALLER.DRAMATIC ARTS HISTORIAN Work Phone: [facility] 01-22-2023 09:18-0500 SaO2% (BldA) [Mass fraction] 99 % Nagi Pendlemaría elena VINYL INSTALLER.DRAMATIC ARTS HISTORIAN Work Phone: [facility] 01-22-2023 09:18-0500 Systolic blood pressure 156 mm[Hg] Nagi Ku APRN.CNP Work Phone: [facility] 09-16-2022 10:48-0400 Body height 165.1 cm Caitlyn Rivera MD Work Phone: [facility] 09-16-2022 10:48-0400 Body mass index (BMI) [Ratio] 30.92 kg/m2 Caitlyn Rivera MD Work Phone: [facility] 09-16-2022 10:48-0400 Body temperature 98.29 [degF] Caitlyn Rivera MD Work Phone: [facility] 09-16-2022 10:48-0400 Body weight 84.28 kg Caitlyn Rivera MD Work Phone: [facility] 09-16-2022 10:48-0400 Diastolic blood pressure 86 mm[Hg] Caitlyn Rivera MD Work Phone: [facility] 09-16-2022 10:48-0400 Heart rate 88 /min Caitlyn Rivera MD Work Phone: [facility] 09-16-2022 10:48-0400 Respiratory rate 16 /min Caitlyn Rivera MD Work Phone: [facility] 09-16-2022 10:48-0400 SaO2% (BldA) [Mass fraction] 99 % Caitlyn Rivera MD Work Phone: [facility] 09-16-2022 10:48-0400 Systolic blood pressure 121 mm[Hg] Caitlyn Rivera MD Work Phone: [facility] 07-06-2022 10:00-0400 Body temperature 98.71 [degF] Christine Dean PA-C Work Phone: [facility] 07-06-2022 10:00-0400 Body weight 84.37 kg Christine Dean PA-C Work Phone: [facility] 07-06-2022 10:00-0400 Diastolic blood pressure 112 mm[Hg] Christine Dean PA-C Work Phone: [facility] 07-06-2022 10:00-0400 Heart rate 80 /min Christine Dean PA-C Work Phone: [facility] 07-06-2022 10:00-0400 Respiratory rate 16 /min Christine Dean PA-C Work Phone: [facility] 07-06-2022 10:00-0400 Systolic blood pressure 142 mm[Hg] Christine Dean PA-C Work Phone: [facility] 06-16-2022 08:40-0400 Body mass index (BMI) [Ratio] 30.99 kg/m2 Osvaldo Tapia MD Work Phone: [facility] 06-16-2022 08:40-0400 Body temperature 97.39 [degF] Osvaldo Tapia MD Work Phone: [facility] 06-16-2022 08:40-0400 Body weight 84.46 kg Osvaldo Tapia MD Work Phone: [facility] 06-16-2022 08:40-0400 Diastolic blood pressure 102 mm[Hg] Osvaldo Tapia MD Work Phone: [facility] 06-16-2022 08:40-0400 Heart rate 81 /min Osvaldo Tapia MD Work Phone: [facility] 06-16-2022 08:40-0400 Respiratory rate 14 /min Osvaldo Tapia MD Work Phone: [facility] 06-16-2022 08:40-0400 SaO2% (BldA) [Mass fraction] 96 % Osvaldo Tapia MD Work Phone: [facility] 06-16-2022 08:40-0400 Systolic blood pressure 141 mm[Hg] Osvaldo Tapia MD Work Phone: [facility] 04-17-2022 10:31-0400 Body height 165.1 cm Karen Land VINYL INSTALLER-DRAMATIC ARTS HISTORIAN Work Phone: [facility] 04-17-2022 10:31-0400 Body mass index (BMI) [Ratio] 26.63 kg/m2 Karen Land VINYL INSTALLER-DRAMATIC ARTS HISTORIAN Work Phone: [facility] 04-17-2022 10:31-0400 Body weight 72.58 kg Karen Land VINYL INSTALLER-DRAMATIC ARTS HISTORIAN Work Phone: [facility] 03-26-2022 08:29-0400 Body height 164.5 cm Osvaldo Tapia MD Work Phone: [facility] 03-26-2022 08:29-0400 Body mass index (BMI) [Ratio] 29.42 kg/m2 sOvaldo Tapia MD Work Phone: [facility] 03-26-2022 08:29-0400 Body temperature 99.19 [degF] Osvaldo Tapia MD Work Phone: [facility] 03-26-2022 08:29-0400 Body weight 79.61 kg Osvaldo Tapia MD Work Phone: [facility] 03-26-2022 08:29-0400 Diastolic blood pressure 88 mm[Hg] Osvaldo Tapia MD Work Phone: [facility] 03-26-2022 08:29-0400 Heart rate 82 /min Osvaldo Tapia MD Work Phone: [facility] 03-26-2022 08:29-0400 Respiratory rate 16 /min Osvaldo Tapia MD Work Phone: [facility] 03-26-2022 08:29-0400 SaO2% (BldA) [Mass fraction] 97 % Osvaldo Tapia MD Work Phone: [facility] 03-26-2022 08:29-0400 Systolic blood pressure 131 mm[Hg] Osvaldo Tapia MD Work Phone: [facility] 03-18-2022 11:40-0400 Body height 165.1 cm Caitlyn Rivera MD Work Phone: [facility] 03-18-2022 11:40-0400 Body mass index (BMI) [Ratio] 29.12 kg/m2 Caitlyn Rivera MD Work Phone: [facility] 03-18-2022 11:40-0400 Body temperature 98.1 [degF] Caitlyn Rivera MD Work Phone: [facility] 03-18-2022 11:40-0400 Body weight 79.38 kg Caitlyn Rivera MD Work Phone: [facility] 03-18-2022 11:40-0400 Diastolic blood pressure 78 mm[Hg] Caitlyn Rivera MD Work Phone: [facility] 03-18-2022 11:40-0400 Heart rate 92 /min Caitlyn Rivera MD Work Phone: [facility] 03-18-2022 11:40-0400 Respiratory rate 16 /min Caitlyn Rivera MD Work Phone: [facility] 03-18-2022 11:40-0400 SaO2% (BldA) [Mass fraction] 99 % Caitlyn Rivera MD Work Phone: [facility] 03-18-2022 11:40-0400 Systolic blood pressure 157 mm[Hg] Caitlyn Rivera MD Work Phone: [facility] Encounters Encounter Date Encounter Type Care Provider Facility Start: 07-04-2025 [facility] Start: 06-28-2025 End: 06-28-2025 ambulatory NAGI ERD Facility:[facility] Start: 06-27-2025 End: 06-27-2025 Follow-up encounter Caitlyn Rivera MD Work Phone: [facility] Comment on above: Encounter for follow -up (Primary Dx) Start: 06-27-2025 ambulatory NAGI Barrett DANIELLA Tomasz ty:[facility] Start: 06-27-2025 ambulatory NAGI Barrett DANIELLA Tomasz ty:[facility]IMAL Start: 06-25-2025 End: 06-25-2025 Telephone encounter Greta Templeton DO Work Phone: [facility] Start: 06-19-2025 End: 06-19-2025 ambulatory NAGI RED Facility:[id number] Start: 06-16-2025 End: 06-16-2025 Emergency department patient visit NAGI RED Facility:[id number] Start: 06-15-2025 End: 06-15-2025 Subsequent hospital visit by physician Elaine Bowden [address] SCAN Comment on above: Bilateral nephrolith iasis [N20.0] Start: 06-15-2025 End: 06-15-2025 Office outpatient visit 25 minutes Greta Templeton DO Work Phone: [facility] Comment on above: Bilateral nephrolith iasis (Primary Dx); Right flank pain; History of ureteroscopy; Abnormal finding on urinalysis Start: 06-15-2025 End: 06-15-2025 ambulatory NAGI RED Facility:[id number] Start: 06-12-2025 End: 06-13-2025 Admission to same day surgery center Sarah Miramontes APRN.DRAMATIC ARTS HISTORIAN Work Phone: Urology Comment on above: Surgery possibility Start: 06-12-2025 End: 06-13-2025 ambulatory Sarah Dusz VINYL INSTALLER.DRAMATIC ARTS HISTORIAN Work Phone: Urology Start: 06-08-2025 End: 06-12-2025 ambulatory Carlie Brownlee APRN.DRAMATIC ARTS HISTORIAN Work Phone: Pain Management Start: 06-08-2025 End: 06-12-2025 Patient encounter procedure Carlie Brownlee APRN.DRAMATIC ARTS HISTORIAN Work Phone: Pain Management Comment on above: Appointment Start: 06-07-2025 End: 06-07-2025 Telephone encounter Sarah Miramontes APRN.DRAMATIC ARTS HISTORIAN Work Phone: Urology Comment on above: Medication Problem Start: 06-07-2025 End: 06-07-2025 Office consultation new/estab patient 60 min Sarah Miramontes APRN.DRAMATIC ARTS HISTORIAN Work Phone: Urology Comment on above: Kidney stones (Prima ry Dx); Right flank pain; Hematuria, unspecified type Start: 06-07-2025 End: 06-07-2025 ambulatory SARAH MIRAMONTES Facility:[facility] Start: 05-23-2025 End: 05-24-2025 ambulatory Nagi Red MD Work Phone: [facility] [place] Comment on above: Kidney stones Start: 05-21-2025 [facility] Start: 05-21-2025 End: 05-21-2025 Subsequent hospital visit by physician [facility] Work Phone: Radiology Comment on above: Nausea and vomiting, unspecified vomiting type [R11.2] Start: 05-21-2025 End: 05-21-2025 ambulatory Nagi Red Facility:[facility] Start: 05-17-2025 End: 05-18-2025 Telephone encounter Nagi Red MD Work Phone: [facility] [place] Comment on above: Patient Update Start: 05-16-2025 End: 05-17-2025 ambulatory [facility] Kumar nogueira Comment on above: Appt Start: 05-16-2025 End: 05-17-2025 E-mail encounter from caregiver [facility] [place] Start: 05-15-2025 End: 05-15-2025 Chart abstracting Nagi Red MD Work Phone: [facility] [place] Comment on above: Received Outside Med ical Records (Imaging) Start: 05-09-2025 End: 05-17-2025 Telephone encounter Jacevalencia Wallis MA [facility] [place] Comment on above: Results Start: 05-08-2025 End: 05-08-2025 Patient encounter procedure Nagi Red MD Work Phone: [facility] [place] Comment on above: SOB (shortness of br eath) (Primary Dx); Dark urine; Nausea; Nausea and vomiting, unspecified vomiting type; RUQ pain; Right flank pain; Gastroparesis; Elevated blood pressure reading without diagnosis of hypertension; Proteinuria, unspecified type Start: 05-08-2025 End: 05-08-2025 ambulatory NAGI RED Facility:[facility] Start: 05-07-2025 End: 05-07-2025 Patient encounter procedure Nagi Red MD Work Phone: [facility] [place] Comment on above: Appointment today Start: 05-07-2025 End: 05-07-2025 Telemedicine consultation with patient Nagi Red MD Work Phone: [facility] [place] Start: 05-07-2025 End: 05-07-2025 ambulatory Nagi Red MD Work Phone: [facility] [place] Comment on above: Patient left before evaluation by physician (Primary Dx) Start: 05-04-2025 End: 05-04-2025 ambulatory Arianne Ramirez RN NURSE CERTIFIER Comment on above: Patient Update Start: 05-02-2025 ambulatory NAGI RED Facili ty:[facility] Start: 05-02-2025 End: 05-02-2025 Subsequent hospital visit by physician Scarlett [facility] [place] Work Phone: Radiology Comment on above: Bilateral pleural ef fusion [J90] Start: 05-02-2025 End: 05-02-2025 ambulatory NAGI RED Facility:[facility] Start: 05-02-2025 End: 05-07-2025 Follow-up encounter Nagi Red MD Work Phone: [facility] [place] Comment on above: Results Start: 04-26-2025 End: 05-02-2025 Telephone encounter Nagi Red MD Work Phone: [facility] [place] Comment on above: Patient Update Start: 04-24-2025 End: 04-24-2025 ambulatory Nagi Red Facility:[facility] Start: 04-18-2025 End: 04-18-2025 Chart abstracting Nagi Red MD Work Phone: [facility] [place] Comment on above: ER Discharge Summary Start: 04-17-2025 End: 04-17-2025 Emergency department patient visit Nagi Red Facility:[facility] Start: 04-17-2025 End: 04-17-2025 ambulatory [facility] Start: 04-17-2025 End: 04-17-2025 Patient encounter procedure Nagi Red MD Work Phone: [facility] [place] Comment on above: Today's appointment Start: 04-10-2025 End: 04-10-2025 ambulatory Nagi Red Facility:[facility] Start: 04-09-2025 End: 04-09-2025 ambulatory Nagi Red Facility:[facility] Start: 04-05-2025 ambulatory Nagi Red Facility :[facility] Start: 04-03-2025 End: 04-03-2025 ambulatory JUAN DANIEL CONTRERAS Facility:[facility] Start: 03-22-2025 End: 03-22-2025 ambulatory [facility] Facility:[facility] Start: 03-20-2025 End: 03-20-2025 Chart abstracting Nagi Red MD Work Phone: [facility] [place] Comment on above: ER Discharge Summary Start: 03-19-2025 End: 03-20-2025 ambulatory Nagi Red MD Work Phone: [facility] Start: 03-19-2025 End: 03-20-2025 Subsequent hospital visit by physician Nagi Red MD Work Phone: [facility] Comment on above: Hospital visit Start: 03-19-2025 End: 03-19-2025 Telephone encounter Carlie Brownlee APRN.CNP Work Phone: Pain Management Comment on above: Medication Question Start: 03-19-2025 End: 03-19-2025 Emergency department patient visit Nagi Red Facility:[facility] Start: 03-18-2025 End: 03-18-2025 Emergency department patient visit NAGI RED [facility] Start: 03-02-2025 End: 03-02-2025 Orders Only Juan Daniel Contreras MD Work Phone: Pain Management Comment on above: SI (sacroiliac) join t dysfunction (Primary Dx) SI (sacroiliac) join t dysfunction Medication Problem ( traMADol (ULTRAM) 50 mg tablet) Start: 02-19-2025 End: 02-19-2025 Telephone encounter Juan Daniel Contreras MD Work Phone: Pain Management Comment on above: Patient Question Start: 02-16-2025 End: 02-16-2025 Chart abstracting Jace Wallis MA [facility] [place] Comment on above: Procedure ([facility] - gas tric emptying study /) Start: 02-12-2025 End: 02-12-2025 [facility] Facility:[facility] Start: 02-08-2025 End: 02-08-2025 Telephone encounter Juan Daniel Contreras MD Work Phone: Pain Management Comment on above: Insurance Authorizat ion (Lumbar MRI Denial) Start: 02-07-2025 End: 02-07-2025 Chart abstracting Jace Wallis MA [facility] [place] Comment on above: Results (Outside lab s /) Start: 02-02-2025 End: 02-02-2025 [facility] Facility:[facility] Start: 01-29-2025 End: 01-29-2025 Chart abstracting Nagi Red MD Work Phone: [facility] Comment on above: Outside [id number] Ordered Start: 01-26-2025 End: 01-26-2025 ambulatory Taylor Samuel Facility:[facility] Start: 01-19-2025 End: 01-19-2025 ambulatory Nagi Red Facility:[facility] Start: 01-05-2025 End: 01-05-2025 ambulatory NAGI RED Facility:[facility] Start: 01-05-2025 End: 01-05-2025 Patient encounter procedure Tomas Zuhaircarolina VINYL INSTALLER.DRAMATIC ARTS HISTORIAN Work Phone: [facility] Comment on above: Bacterial sinusitis (Primary Dx) Start: 12-15-2024 End: 12-15-2024 Patient encounter procedure Renard Almodovar APRN.DRAMATIC ARTS HISTORIAN Work Phone: [facility] [place] Comment on above: Migraine without aur a and without status migrainosus, not intractable (Primary Dx); Mixed headache Start: 12-15-2024 End: 12-15-2024 ambulatory NAGIHANDY RED Facility:[facility] Start: 12-14-2024 End: 12-14-2024 Telemedicine consultation with patient Carlie Brownlee APRN.DRAMATIC ARTS HISTORIAN Work Phone: Pain Management Start: 12-14-2024 End: 12-14-2024 ambulatory Carlie Brownlee APRN.DRAMATIC ARTS HISTORIAN Work Phone: Pain Management Comment on above: SI (sacroiliac) join t dysfunction (Primary Dx); Radiculopathy, lumbar region; Degeneration of intervertebral disc of lumbar region with discogenic back pain Start: 12-06-2024 End: 12-06-2024 ambulatory Carlie Brownlee APRN.DRAMATIC ARTS HISTORIAN Work Phone: Pain Management Comment on above: New back pain Start: 11-09-2024 End: 11-09-2024 ambulatory NAGI RED Facility:[facility] Start: 11-07-2024 End: 11-07-2024 Admission to same day surgery center Carlie Brownlee APRN.DRAMATIC ARTS HISTORIAN Work Phone: Pain Management Comment on above: Surgery Start: 11-07-2024 End: 11-07-2024 ambulatory Carlie Brownlee APRN.DRAMATIC ARTS HISTORIAN Work Phone: Pain Management Start: 11-02-2024 End: 11-02-2024 ambulatory Renard Almodovar APRN.DRAMATIC ARTS HISTORIAN Work Phone: [facility] [place] Comment on above: Work Start: 11-02-2024 End: 11-02-2024 Patient encounter procedure Renard Almodovar APRN.DRAMATIC ARTS HISTORIAN Work Phone: [facility] [place] Comment on above: Migraine without aur a and without status migrainosus, not intractable (Primary Dx) Start: 10-27-2024 End: 10-27-2024 Telephone encounter Christine Dean PA-C Work Phone: [facility] [place] Comment on above: Results Start: 10-26-2024 End: 10-26-2024 ambulatory NAGI RED Facility:[facility] Start: 10-26-2024 End: 10-26-2024 Patient encounter procedure Christine Dean PA-C Work Phone: [facility] [place] Comment on above: Migraine without aur a and without status migrainosus, not intractable (Primary Dx); Mixed headache; Hypertension, essential; Daily headache Start: 10-24-2024 End: 10-24-2024 Chart abstracting Jace Wallis MA [facility] Comment on above: ER F/U ([facility] ) Start: 10-23-2024 End: 10-24-2024 Telephone encounter Nagi Red MD Work Phone: [facility] [place] Comment on above: FMLA Paperwork Start: 10-21-2024 End: 10-21-2024 Emergency department patient visit Nagi Red Facility:[facility] Start: 10-21-2024 End: 10-21-2024 ambulatory Nagi Red Facility:[facility] Start: 10-18-2024 End: 10-18-2024 ambulatory NAGI RED Facility:[facility] Start: 10-18-2024 End: 10-18-2024 Patient encounter procedure Bobby Paiz APRN.CNP Work Phone: [facility] Comment on above: Headache, unspecifie d headache type (Primary Dx); Nausea Start: 10-17-2024 End: 10-17-2024 ambulatory Nagi Red MD Work Phone: [facility] Comment on above: Migraine Start: 10-01-2024 End: 10-01-2024 Telephone encounter Nagi Ku APRN.DRAMATIC ARTS HISTORIAN Work Phone: [facility] Comment on above: Results Start: 09-29-2024 End: 09-29-2024 ambulatory NAGI RED Facility:[facility] Start: 09-29-2024 End: 09-29-2024 Patient encounter procedure Karen Mesha VINYL INSTALLER.DRAMATIC ARTS HISTORIAN Work Phone: [facility] Comment on above: Dysuria (Primary Dx) Start: 09-27-2024 End: 09-27-2024 Orders Only Juan Daniel Contreras MD Work Phone: Pain Management Comment on above: SI (sacroiliac) join t dysfunction (Primary Dx) Start: 09-26-2024 End: 09-26-2024 Telephone encounter Carlie Brownlee APRN.DRAMATIC ARTS HISTORIAN Work Phone: Pain Management Comment on above: Orders Start: 09-21-2024 End: 09-21-2024 Patient encounter procedure Renard Almodovar APRN.DRAMATIC ARTS HISTORIAN Work Phone: [facility] Comment on above: Leg cramps (Primary Dx); Encounter for physical examination related to employment Start: 09-21-2024 End: 09-21-2024 ambulatory NAGI RED Facility:[facility] Start: 09-18-2024 End: 09-18-2024 ambulatory Carlie Brownlee APRN.DRAMATIC ARTS HISTORIAN Work Phone: Pain Management Comment on above: SI (sacroiliac) join t dysfunction (Primary Dx); Radiculopathy, lumbar region; Degeneration of intervertebral disc of lumbar region with discogenic back pain Start: 09-18-2024 End: 09-18-2024 Telemedicine consultation with patient Carlie Brownlee APRN.DRAMATIC ARTS HISTORIAN Work Phone: Pain Management Start: 09-15-2024 End: 09-15-2024 ambulatory NAGI RED Facility:[facility] Start: 09-15-2024 End: 09-15-2024 Patient encounter procedure Shannon Hawkins PA-C Work Phone: [facility] Comment on above: Viral illness (Prima ry Dx) Start: 09-04-2024 End: 09-04-2024 Chart abstracting Nagi Red MD Work Phone: [facility] Comment on above: ER Discharge Summary Start: 09-01-2024 End: 09-01-2024 Emergency department patient visit Ludin Adams Facility:[facility] Start: 08-25-2024 ambulatory Nagi Presleyey Facility :[facility] Start: 08-22-2024 End: 08-22-2024 Chart abstracting Nagi Red MD Work Phone: [facility] Comment on above: Outside [id number] Ordered Start: 08-21-2024 ambulatory Health Risk Assessment Facility:[facility] Start: 06-30-2024 End: 06-30-2024 Nursing evaluation of patient and report Mi Nurse Work Phone: [facility] Comment on above: Dermatofibroma (Prim kathya Dx) Start: 06-30-2024 End: 06-30-2024 ambulatory NAGI RED Facility:[facility] Start: 06-20-2024 Telephone encounter Nagi Red MD Work Phone: [facility] Comment on above: Results Start: 06-19-2024 End: 06-19-2024 Patient encounter procedure Nagi Red MD Work Phone: [facility] Comment on above: Neoplasm of uncertai n behavior of skin of back (Primary Dx); Dermatofibroma Start: 06-15-2024 End: 06-15-2024 ambulatory Carlie Brownlee APRN.CNP Work Phone: Pain Management Comment on above: Spinal stenosis of l umbar region, unspecified whether neurogenic claudication present (Primary Dx); SI (sacroiliac) joint dysfunction; Radiculopathy, lumbar region Start: 06-15-2024 End: 06-15-2024 Telemedicine consultation with patient Carlie Brownlee APRN.DRAMATIC ARTS HISTORIAN Work Phone: Pain Management Start: 06-13-2024 End: 06-13-2024 ambulatory NAGI RED Facility:[facility] Start: 05-23-2024 Telephone encounter Nagi Red MD Work Phone: [facility] [place] Comment on above: Future Appointment Start: 05-15-2024 ambulatory Carlie Brownlee KIMBERLEY.DRAMATIC ARTS HISTORIAN Work Phone: Pain Management Comment on above: Back imaging Start: 05-12-2024 End: 05-12-2024 Subsequent hospital visit by physician [facility] Comment on above: Pain in left lower l eg [M79.662] Start: 05-12-2024 ambulatory Lizzeth candelario RN NURSE CERTIFIER Comment on above: US results Leg ultrasound Start: 05-12-2024 End: 05-12-2024 Patient encounter procedure Sakshi Pandey APRN.DRAMATIC ARTS HISTORIAN Work Phone: [facility] [place] Comment on above: Pain in left lower l eg (Primary Dx) Start: 05-02-2024 Telephone encounter Jace Wallis MA [facility] [place] Comment on above: Appointment Start: 05-01-2024 End: 05-01-2024 Office outpatient visit 25 minutes Caitlyn Rivera MD Work Phone: Division of Endocrinology Comment on above: Papillary thyroid ca rcinoma (Primary Dx); Postsurgical hypothyroidism Start: 04-29-2024 Telephone encounter Nagi Red MD Work Phone: [facility] [place] Comment on above: Results Start: 04-26-2024 End: 04-26-2024 ambulatory [facility] Work Phone: [facility] Comment on above: Spirometry Visit Start: 04-26-2024 End: 04-26-2024 Patient encounter procedure [facility] Work Phone: [facility] Start: 04-25-2024 Telephone encounter Nagi Red MD Work Phone: [facility] [place] Comment on above: Results Start: 04-25-2024 End: 04-25-2024 Patient encounter procedure Nagi Red MD Work Phone: [facility] Comment on above: Hypertension, essent ial (Primary [...] encounter status Nagi Red MD Work Phone: [facility] Start: 04-19-2024 ambulatory Nagi zhang MD Work Phone: [facility] Comment on above: Blood sugar Start: 04-04-2024 Orders Only Juan Daniel Contreras MD Work Phone: Pain Management Comment on above: SI (sacroiliac) join t dysfunction (Primary Dx) Start: 03-25-2024 End: 03-25-2024 Patient encounter procedure Nagi Red MD Work Phone: [facility] [place] Comment on above: Tinnitus of right ea r (Primary Dx); Right ear pain; Neoplasm of uncertain behavior of skin of back Start: 03-16-2024 End: 03-16-2024 Patient encounter procedure Carlie Brownlee APRN.DRAMATIC ARTS HISTORIAN Work Phone: Pain Management Comment on above: SI (sacroiliac) join t dysfunction (Primary Dx); Lumbar degenerative disc disease; Spinal stenosis of lumbar region, unspecified whether neurogenic claudication present Start: 03-07-2024 Chart abstracting Nagi chacon MD Work Phone: [facility] Comment on above: Ext / ABD US Start: 01-11-2024 End: 01-11-2024 Office outpatient visit 15 minutes Galilea Olvera PA-C Work Phone: [facility] Comment on above: Otalgia of both ears (Primary Dx); Flu Start: 01-07-2024 Telephone encounter Jim cerrato APRN.DRAMATIC ARTS HISTORIAN Work Phone: [facility] Comment on above: Results Start: 01-07-2024 End: 01-07-2024 Patient encounter procedure Octavio WILCOX Work Phone: [facility] Comment on above: Sore throat (Primary Dx); URI, acute Start: 01-03-2024 Chart abstracting Nagi chacon MD Work Phone: [facility] [place] Comment on above: Outside imaging and ER Start: 11-04-2023 End: 11-04-2023 Patient encounter procedure Brian Elias Work Phone: Podiatry Comment on above: Plantar wart of left foot (Primary Dx) Start: 10-04-2023 End: 10-04-2023 Patient encounter procedure Bobby Paiz APRN.DRAMATIC ARTS HISTORIAN Work Phone: [facility] Comment on above: Sore throat (Primary Dx); Bronchitis; Lower resp. tract infection Start: 09-16-2023 Orders Only Juan Daniel Contreras MD Work Phone: Pain Management Comment on above: SI (sacroiliac) join t dysfunction (Primary Dx) Start: 09-13-2023 End: 09-13-2023 ambulatory Carlie Brownlee APRN.DRAMATIC ARTS HISTORIAN Work Phone: Pain Management Comment on above: Spinal stenosis of l umbar region, unspecified whether neurogenic claudication present (Primary Dx); SI (sacroiliac) joint dysfunction; Lumbar degenerative disc disease Start: 09-13-2023 End: 09-13-2023 Telemedicine consultation with patient Carlie Brownlee APRN.DRAMATIC ARTS HISTORIAN Work Phone: [facility] Start: 07-08-2023 Orders Only Juan Daniel Contreras MD Work Phone: Pain Management Comment on above: SI (sacroiliac) join t dysfunction (Primary Dx); Sacroiliitis, not elsewhere classified (HCC) Start: 06-08-2023 End: 06-08-2023 Patient encounter procedure Carlie Brownlee APRN.DRAMATIC ARTS HISTORIAN Work Phone: Pain Management Comment on above: SI (sacroiliac) join t dysfunction; Lumbar degenerative disc disease Start: 04-28-2023 Telephone encounter Christine fernandez PA-C Work Phone: [facility] [place] Comment on above: Results Start: 04-28-2023 End: 04-28-2023 Subsequent hospital visit by physician [facility] (I-Stat) Work Phone: Cat Scan Comment on above: Adverse effect of tr eatment, initial encounter [T88.9XXA] Start: 04-27-2023 End: 04-27-2023 Patient encounter procedure Renard Almodovar APRN.DRAMATIC ARTS HISTORIAN Work Phone: [facility] [place] Comment on above: Post-surgical hypoth yroidism (Primary Dx); Adverse effect of treatment, subsequent encounter; Adverse effect of treatment, initial encounter Start: 04-26-2023 Chart abstracting Nagi chacon MD Work Phone: [facility] [place] Start: 04-05-2023 Telephone encounter Renard mchugh APRN.DRAMATIC ARTS HISTORIAN Work Phone: [facility] [place] Comment on above: Results Start: 04-01-2023 Telephone encounter Juan Daniel quiñones MD Work Phone: Pain Management Comment on above: Results Start: 03-29-2023 Telephone encounter Nagi Red MD Work Phone: [facility] [place] Comment on above: ER FU apt Start: 03-27-2023 End: 03-27-2023 Subsequent hospital visit by physician Xr [facility] [place] Work Phone: Radiology Comment on above: Lumbar degenerative disc disease [M51.36] Start: 03-03-2023 End: 03-03-2023 Patient encounter procedure Nagi Red MD Work Phone: [facility] [place] Comment on above: Hypertension, essent ial (Primary [...] diabetes mellitus Start: 02-16-2023 ambulatory Carlie Brownlee APRN.DRAMATIC ARTS HISTORIAN Work Phone: Pain Management Comment on above: Medication Start: 02-12-2023 End: 02-12-2023 Subsequent hospital visit by physician Juan Daniel Contreras MD Work Phone: [facility] Comment on above: SI (sacroiliac) join t dysfunction [M53.3] Start: 02-06-2023 Chart abstracting Nagi chacon MD Work Phone: [facility] [place] Comment on above: Consult (GI ) Start: 01-28-2023 Orders Only Juan Daniel Contreras MD Work Phone: Pain Management Comment on above: Lumbar degenerative disc disease (Primary Dx); SI (sacroiliac) joint dysfunction; Sacroiliitis, not elsewhere classified (HCC) Start: 01-26-2023 Chart abstracting Nagi chacon MD Work Phone: [facility] [place] Comment on above: Outside [id number] Ordered Start: 01-22-2023 Chart abstracting Nagi chacon MD Work Phone: [facility] [place] Comment on above: ER F/U ([facility]) Start: 01-22-2023 End: 01-22-2023 Office outpatient visit 25 minutes Nagi Ku APRN.DRAMATIC ARTS HISTORIAN Work Phone: [facility] Comment on above: Bacterial sinusitis (Primary Dx) Start: 01-06-2023 ambulatory [facility] e[facility] Comment on above: RFA Start: 01-06-2023 E-mail encounter fro m caregiver [facility] Provider [facility] Start: 12-16-2022 ambulatory Nagi zhang MD Work Phone: [facility] [place] Comment on above: High blood sugar Start: 11-25-2022 End: 11-25-2022 ambulatory Carlie Brownlee APRN.DRAMATIC ARTS HISTORIAN Work Phone: Pain Management Comment on above: SI (sacroiliac) join t dysfunction; Lumbar degenerative disc disease SI fusion Start: 11-25-2022 E-mail encounter fro m caregiver Carlie Brownlee APRN.DRAMATIC ARTS HISTORIAN Work Phone: [facility] Start: 11-25-2022 End: 11-25-2022 Telemedicine consultation with patient Carlie Howard Brownlee APRN.DRAMATIC ARTS HISTORIAN Work Phone: [facility] Start: 10-30-2022 Encounter for preprocedural laboratory examination CLAIRE N COCO DO [facility] Start: 10-23-2022 End: 10-23-2022 ambulatory CLAIRE N COCO DO Facility:[facility] Start: 10-10-2022 ambulatory Christine roman PA-C Work Phone: [facility] [place] Start: 10-10-2022 Patient encounter procedure Christine Dean PA-C Work Phone: [facility] [place] Comment on above: Stomach issues refer ral Start: 09-16-2022 End: 09-16-2022 Office outpatient visit 25 minutes Caitlyn Rivera MD Work Phone: Division of Endocrinology Comment on above: Papillary thyroid ca rcinoma (Primary Dx); Postsurgical hypothyroidism; Sialoadenitis of submandibular gland Start: 09-10-2022 End: 09-11-2022 ambulatory CLAIRE N COCO DO Facility:[facility] Start: 09-01-2022 Patient encounter status Mitchell Dean PA-C Work Phone: [facility] Work Phone: Start: 07-30-2022 ambulatory Carlie Brownlee APRN.DRAMATIC ARTS HISTORIAN Work Phone: Pain Management Comment on above: Medication Start: 07-07-2022 Telephone encounter Christine fernandez PA-C Work Phone: [facility] [place] Comment on above: Results Start: 07-06-2022 End: 07-06-2022 Patient encounter procedure Christine Dean PA-C Work Phone: [facility] Comment on above: Hypertension, essent ial (Primary Dx); Weight gain; Primary thyroid papillary carcinoma (HCC); Encounter for lipid screening for cardiovascular disease; Screening for diabetes mellitus Start: 07-01-2022 Orders Only Juan Daniel Contreras MD Work Phone: Pain Management Comment on above: SI (sacroiliac) join t dysfunction (Primary Dx); Sacroiliitis, not elsewhere classified (HCC) Start: 06-24-2022 ambulatory Nagi zhang MD Work Phone: [facility] [place] Comment on above: Pcp Start: 06-16-2022 End: 06-16-2022 Postop follow up visit related to original px Osvaldo Tapia MD Work Phone: Department of Otolaryngology Comment on above: Sialadenitis (Primar y Dx) Start: 05-26-2022 Orders Only Juan Daniel Contreras MD Work Phone: Pain Management Comment on above: SI (sacroiliac) join t dysfunction (Primary Dx); Sacroiliitis, not elsewhere classified (HCC) Start: 05-14-2022 Orders Only Juan Daniel Contreras MD Work Phone: Pain Management Comment on above: SI (sacroiliac) join t dysfunction (Primary Dx); Sacroiliitis, not elsewhere classified (HCC) Start: 05-01-2022 End: 05-01-2022 ambulatory NAGI RED Facility:[facility] Start: 04-17-2022 End: 04-17-2022 Subsequent hospital visit by physician aKren ESPINOSA Work Phone: [facility] [place] Comment on above: Arrived Start: 04-14-2022 Orders Only Juan Daniel Contreras MD Work Phone: Pain Management Comment on above: SI (sacroiliac) join t dysfunction (Primary Dx); Sacroiliitis, not elsewhere classified (HCC) Start: 04-09-2022 Telephone encounter Juan Daniel quiñones MD Work Phone: Pain Management Comment on above: Appointment (Resched ule Injection ) Start: 04-07-2022 End: 04-07-2022 ambulatory Carlie Lawrence Brownlee KIMBERLEY.DRAMATIC ARTS HISTORIAN Work Phone: Pain Management Comment on above: SI (sacroiliac) join t dysfunction (Primary Dx); Lumbar degenerative disc disease Start: 04-07-2022 End: 04-07-2022 Telemedicine consultation with patient Carlie Lawrence Aamir CHU.DRAMATIC ARTS HISTORIAN Work Phone: [facility] Start: 03-26-2022 End: 03-26-2022 Office outpatient new 60 minutes Osvaldo Tapia MD Work Phone: Department of Otolaryngology Comment on above: Sialadenitis (Primar y Dx) Start: 03-18-2022 End: 03-18-2022 Office outpatient visit 25 minutes Caitlyn Rivera MD Work Phone: Division of Endocrinology Comment on above: Postsurgical hypothy roidism (Primary Dx); Papillary thyroid carcinoma; Sialoadenitis of submandibular gland Start: 03-09-2022 ambulatory Morris goff MD Work Phone: Gastroenterology Start: 03-09-2022 Patient encounter procedure Morris Mireles Jr., MD Work Phone: [facility] Start: 03-05-2022 End: 03-05-2022 ambulatory Capsule Shayan Work Phone: Gastroenterology [place] Comment on above: Bloody Stool Start: 03-05-2022 End: 03-05-2022 Patient encounter procedure Capsule Steph Shayan Work Phone: [facility] Start: 12-22-2021 End: 12-23-2021 ambulatory DUC BAKER DO Facility:[facility] Start: 11-15-2021 End: 11-15-[address] SENA CARO MD Facility:[facility] Start: 07-17-2021 End: 07-17-2021 Subsequent hospital visit by physician Xr [facility] [place] Work Phone: Radiology Comment on above: Left ankle injury, i nitial encounter [S99.912A] Start: 06-20-2021 End: 06-20-2021 Clinical Support Encounter Caitlyn Rivera MD Work Phone: [facility] Comment on above: Thyroid cancer (Prim kathya Dx) Start: 08-10-2014 End: 07-27-2019 Patient encounter status Carlie Brownlee VINYL INSTALLER.DRAMATIC ARTS HISTORIAN Work Phone: [facility] Procedures Date Procedure Procedure Detail Performing Clinician Start: 06-15-2025 Ct abdomen & pelvis w/o contrast material Greta Templeton DO Work Phone: Start: 06-07-2025 BLADDER SCAN Sarah Dus z VINYL INSTALLER.DRAMATIC ARTS HISTORIAN Work Phone: Start: 06-07-2025 Urnls dip stick/tabl et reagent auto microscopy Sarah Dusz VINYL INSTALLER.DRAMATIC ARTS HISTORIAN Work Phone: Start: 06-07-2025 Urnls dip stick/tabl et rgnt auto w/o microscopy Sarah Dusz VINYL INSTALLER.DRAMATIC ARTS HISTORIAN Work Phone: Start: 05-08-2025 Urnls dip stick/tabl et rgnt auto w/o microscopy Nagi Red MD Work Phone: Start: 05-02-2025 Radiologic exam ches t 2 views Nagi Red MD Work Phone: Start: 03-18-2025 Urinalysis NAGI CHACON Comment on above: Result Comment: URIN ALYSIS Performed By: #### 2 [id number] ####[facility],[address] [address] Start: 09-29-2024 Urnls dip stick/tabl et rgnt auto w/o microscopy Minor Jean MD Work Phone: Start: 06-19-2024 SURGICAL PATHOLOGY Zeny Red MD Work Phone: Start: 05-12-2024 Dup-scan xtr veins unilateral/limited study Sakshi Pandey VINYL INSTALLER.DRAMATIC ARTS HISTORIAN Work Phone: Start: 05-01-2024 US Unspecified body region Caitlyn Rivera MD Work Phone: Start: 05-01-2024 Us soft tissue head & neck real time imge docm Caitlyn Rivera MD Work Phone: Start: 04-26-2024 Brncdilat rspse spmt ry pre&post-brncdilat admn Nagi Red MD Work Phone: Start: 01-07-2024 STREP A MOLECULAR (POC) Octavio Alcantara PA Work Phone: Start: 10-04-2023 STREP A MOLECULAR (POC) [facility] Provider Start: 04-28-2023 Ct angiography neck w/contrast/noncontrast Renard Almodovar VINYL INSTALLER.DRAMATIC ARTS HISTORIAN Work Phone: Start: 03-27-2023 Radex spine lumbosac ral minimum 4 views Carlie Brownlee VINYL INSTALLER.DRAMATIC ARTS HISTORIAN Work Phone: Start: 02-12-2023 Fluoroscopy up to 1 hour physician/qhp time Juan Daniel Contreras MD Work Phone: Start: 09-16-2022 US Unspecified body region Caitlyn Rivera MD Work Phone: Start: 09-16-2022 Us soft tissue head & neck real time imge docm Caitlyn Rivera MD Work Phone: Start: 07-06-2022 Adult depression screening assessment Christine Dean PA-C Work Phone: Start: 03-18-2022 US Unspecified body region Caitlyn Rivera MD Work Phone: Start: 03-18-2022 Us soft tissue head & neck real time imge docm Caitlyn Rivera MD Work Phone: Start: 07-17-2021 Radex ankle complete minimum 3 views Shannon Hawkins PA-C Work Phone: Start: 07-31-2019 History of thyroidectomy S/P total t hyroidectomy Capsule Shayan Work Phone: Start: 05-20-2017 Adult depression screening assessment Capsule [facility] Work Phone: Plan of Treatment Date Care Activity Detail Author Start: 06-26-2026 End: 06-26-2026 Patient encounter procedure 06/26/2026 1:40 PM EDT Office Visit Division of Endocrinology [address] [facility] 10[address] [place] [address] Caitlyn Rivera MD [address] [place] [address] Division of Endocrinology Start: 05-08-2026 Annual PCP Team Chronic Disease Visit Annual PCP Team Chronic Disease Visit [facility] Start: 05-07-2026 Annual PCP Team Chronic Disease Visit Annual PCP Team Chronic Disease Visit [facility] Start: 01-05-2026 BP Controlled (<130/80) BP Controlled (<130/80) [facility] Start: 12-15-2025 Annual PCP Team Chronic Disease Visit Annual PCP Team Chronic Disease Visit [facility] Start: 11-02-2025 Annual PCP Team Chronic Disease Visit Annual PCP Team Chronic Disease Visit [facility] Start: 10-26-2025 Annual PCP Team Chronic Disease Visit Annual PCP Team Chronic Disease Visit [facility] Start: 10-18-2025 BP Controlled (<130/80) BP Controlled (<130/80) [facility] in Start: 09-21-2025 Annual PCP Team Chronic Disease Visit Annual PCP Team Chronic Disease Visit [facility] Start: 09-21-2025 BP Controlled (<130/80) BP Controlled (<130/80) [facility] Start: 09-21-2025 Covid-19 Vaccine ( season) Covid-19 Vaccine ( season) [facility] Comment on above: Postponed from 07/23/2024 (Declined at t his time) Start: 07-23-2025 Influenza vaccination Influenza Vaccine (#1) Warren Juanita moore Start: 07-17-2025 End: 07-17-2025 Distance Health 07/17/2025 10:30 AM EDT [facility] [address] [address] Carlie Brownlee, VINYL INSTALLER.DRAMATIC ARTS HISTORIAN [address] [place] [address] Rx refill -- update after march surgery Pain Management Comment on above: Rx refill -- update after march surgery Start: 06-29-2025 End: 06-29-2025 Admission to same day surgery center 06/29/2025 1:15 PM EDT - 06/29/2025 3:30 [place] [address] Greta Templeton [address] [place] [id number] CYSTOSCOPY [facility] Comment on above: CYSTOSCOPY Start: 06-29-2025 End: 06-29-2025 Cysto w/insert ureteral stent INSERTION STENT DOUBLE J Bilateral nephrolithiasis Right flank pain 06/29/2025 1:15 PM EDT UN OR Start: 06-29-2025 End: 06-29-2025 Cysto w/ureteroscopy w/lithotripsy LASER CYSTOURETHROSCOPY W/ URETEROSCOPY AND/OR PYELOSCOPY W/ LITHOTRIPSY HOLMIUM Bilateral nephrolithiasis Right flank pain 06/29/2025 1:15 PM EDT UN OR Start: 06-29-2025 End: 06-29-2025 Cystourethroscopy CYSTOSCOPY Bilateral nephrolithiasis Right flank pain 06/29/2025 1:15 PM EDT UN OR Start: 06-29-2025 End: 06-29-2025 Njx retrograde urethrocstograpy RETROGRADE PYELOGRAM Bilateral nephrolithiasis Right flank pain 06/29/2025 1:15 PM EDT UN OR Start: 06-29-2025 Subsequent hospital visit by physician 06/29/2025 1:15 PM EDT Hospital Encounter [facility] [address] [place] [place] [address] Greta Templeton [address] [place] [address] Bilateral nephrolithiasis [N20.0], Right flank pain [R10.9] [facility] Comment on above: Bilateral nephrolithiasis [N20.0], Right flank pain [R10.9] Start: 06-28-2025 End: 06-28-2025 Patient encounter procedure 06/28/2025 11:00 AM EDT Office Visit [facility] [place] [address] [place] [address] Nagi Red MD [address] [place], [place] [id number] elevated BP - next day surgery (unsure if needed time for a pre-op) [facility] [place] Comment on above: elevated BP - next day surgery (unsure i f needed time for a pre-op) Start: 06-19-2025 Annual PCP Team Chronic Disease Visit Annual PCP Team Chronic Disease Visit [facility] Start: 06-19-2025 End: 06-19-2025 Patient encounter procedure 06/19/2025 11:00 AM EDT Office Visit [facility] [address] [place] [address] Greta Templeton DO [address] [place] [address] f/u stat ct flank NEED UA [facility] Comment on above: f/u stat ct flank NEED UA Start: 06-15-2025 End: 07-16-2026 CT Abdomen and Pelvis WO contrast CT FLANK WO IVCON Radiology Routine Bilateral nephrolithiasis Expected: 06/15/2025, Expires: 07/16/2026 [facility] Work Phone: Comment on above: Expected: 06/15/2025, Expires: Start: 06-15-2025 End: 06-15-2025 Patient encounter procedure 06/15/2025 11:40 AM EDT Office Visit [facility] [address] [place] [address] Greta Templeton [address] [place] [address] F/U PER SARAH FOR 6MM NON-OBSTRUCTING KIDNEY STONE [facility] Comment on above: F/U PER SARAH FOR 6MM NON-OBSTRUCTING K IDNEY STONE Start: 06-07-2025 End: 06-07-2025 Patient encounter procedure 06/07/2025 1:00 PM EDT Office Visit Urology [address] [place] [address] Sarah Miramontes APRN.DRAMATIC ARTS HISTORIAN [address] [place] [address] Kidney Stones Urology Comment on above: Kidney Stones Start: 05-24-2025 End: 05-24-2025 Patient encounter procedure 05/24/2025 9:40 AM EDT Office Visit [facility] [place] [address] [place], [place] [address] Christine Dean PA-C [address] [place] [address] 2 week BP check [facility] [place] Comment on above: 2 week BP check Start: 05-22-2025 End: 05-22-2025 Patient encounter procedure 05/22/2025 9:20 AM EDT Appointment Cat Scan [address] [place], [place] [phone] CT FLANK WO IVCON Cat Scan Comment on above: CT FLANK WO IVCON Start: 05-21-2025 End: 05-21-2025 Patient encounter procedure 05/21/2025 10:00 AM EDT Appointment Radiology [address] [place] [address] Nausea and vomiting, unspecified vomiting type [R11.2]; Right flank pain [R10.9]; RUQ pain [R10.11]; Renal stones [N20.0] Radiology Comment on above: Nausea and vomiting, unspecified vomitin g type [R11.2]; Right flank pain [R10.9]; RUQ pain [R10.11]; Renal stones [N20.0] Start: 05-14-2025 End: 05-14-2025 Patient encounter procedure 05/14/2025 1:00 PM EDT Office Visit [facility] [place] [address] [place] [address] Nagi Red MD [address] [place], [place] [phone] ER follow continued Stomach pain Family [facility] Comment on above: ER follow continued Stomach pain Start: 05-12-2025 Annual PCP Team Chronic Disease Visit Annual PCP Team Chronic Disease Visit [facility] Start: 05-12-2025 BP Controlled (<130/80) BP Controlled (<130/80) [facility] Start: 05-08-2025 End: 05-08-2025 Patient encounter procedure 05/08/2025 8:40 AM EDT Office Visit Family [facility] [address] [place] [address] Nagi Red MD [address] [place], [place] [id number] Stomach pain continued [facility] [place] Comment on above: Stomach pain continued Start: 05-07-2025 End: 05-07-2025 Patient encounter procedure 05/07/2025 12:20 PM EDT Office Visit Division of Endocrinology [address] [place] [address] [place] [address] Caitlyn Rivera MD [address] [place] [address] Division of Endocrinology Start: 05-07-2025 End: 05-07-2025 Follow-up encounter 05/07/2025 11:00 AM EDT [facility] [address] [facility] [place] [address] Nagi Red MD [address] [facility] [place] [address] Follow up-test results [facility] Comment on above: Follow up-test results Start: 05-01-2025 Thyroid stimulating hormone measurement [facility] Start: 05-01-2025 End: 07-31-2025 Thyrotropin [Units/volume] in Serum or Plasma THYROID STIMULATING HORMONE Lab Routine Bilateral pleural effusion Post-surgical hypothyroidism Expected: 05/01/2025, Expires: 07/31/2025 [facility] Work Phone: Comment on above: Expected: 05/01/2025, Expires: Start: 05-01-2025 End: 07-31-2025 Thyroxine (T4) free [Mass/volume] in Serum or Plasma T4 FREE/FREE THYROXINE Lab Routine Bilateral pleural effusion Post-surgical hypothyroidism Expected: 05/01/2025, Expires: 07/31/2025 [facility] Comment on above: Expected: 05/01/2025, Expires: Start: 04-25-2025 Annual PCP Team Chronic Disease Visit Annual PCP Team Chronic Disease Visit [facility] Start: 04-03-2025 End: 04-03-2025 Admission to same day surgery center [facility] Surgery Comment on above: RADIOFREQUENCY ABLATION NERVES INNERVATI NG THE SACROILIAC JOINT W/IMAGE GUIDANCE FLUORO OR CT Start: 04-03-2025 End: 04-03-2025 Radiofrequency abltj nrv nrvtg si jt w/img gdn ME OR Start: 04-03-2025 Subsequent hospital visit by physician [facility] Surgery Comment on above: SI (sacroiliac) joint dysfunction [M53.3 ] Start: 03-30-2025 End: 03-30-2025 Patient encounter procedure 03/30/2025 11:20 AM EDT Office Visit [facility] [address] [facility] [address] Nagi Red MD [address] [facility] [place] [address] Er follow up [facility] Comment on above: Er follow up Start: 03-25-2025 Annual PCP Team Chronic Disease Visit Annual PCP Team Chronic Disease Visit [facility] Start: 03-19-2025 Tetanus vaccination TETANUS [facility] Start: 03-19-2025 Urine microalbumin profile [facility] Start: 02-26-2025 End: 02-26-2025 Patient encounter procedure 02/26/2025 7:45 AM EDT Office Visit Pain Management [address] [facility] [address] [place], [place] [id number] Juan Daniel Contreras MD [address] [facility] [place], [place] [id number] Cervical/Thoracic Pain (New Pain, Established Patient) Pain [...] EST Office Visit Pain Management [address] [facility] [address] [place], [place] [id number] Juan Daniel Contreras MD [address] [facility] [place] [address] Cervical/Thoracic Pain (New Pain, Established Patient) Pain Management Comment on above: Cervical/Thoracic Pain (New Pain, Establ ished Patient) Start: 12-29-2024 End: 12-29-2024 Patient encounter procedure 12/29/2024 1:30 PM EST Appointment Radiology [address] [place], [place] [phone] Migraine without aura and without status migrainosus, not intractable [G43.009] Radiology Comment on above: Migraine without aura and without status migrainosus, not intractable [G43.009] Start: 12-15-2024 End: 12-15-2024 Patient encounter procedure 12/15/2024 1:40 PM EST Office Visit [facility] [address] [place], [place] [phone] Renard Almodovar, KIMBERLEY.DRAMATIC ARTS HISTORIAN [address] [place], [place] [phone] 3 week med follow up [facility] Comment on above: 3 week med follow up Start: 11-24-2024 End: 11-24-2024 Patient encounter procedure 11/24/2024 1:40 PM EST Office Visit [facility] [address] [place], [place] [phone] Renard Almodovar, VINYL INSTALLER.DRAMATIC ARTS HISTORIAN [address] [place], [place] [phone] 3 week med follow up [facility] Comment on above: 3 week med follow up Start: 11-23-2024 BP Controlled (<130/80) BP Controlled (<130/80) [facility] in Start: 11-09-2024 End: 11-09-2024 Admission to same day surgery center [facility] Surgery Comment on above: RADIOFREQUENCY ABLATION NERVES INNERVATI NG THE SACROILIAC JOINT W/IMAGE GUIDANCE FLUORO OR CT Start: 11-09-2024 End: 11-09-2024 Radiofrequency abltj nrv nrvtg si jt w/img gdn ME OR Start: 11-09-2024 Subsequent hospital visit by physician [facility] Surgery Comment on above: SI (sacroiliac) joint dysfunction [M53.3 ] Start: 11-09-2024 End: 11-09-2024 Admission to same day surgery center 11/09/2024 9:17 AM EST - 11/09/2024 10:00 AM EST Surgery [facility] Surgery [address] [place] [address] Juan Daniel Contreras MD [address] [facility] [place] [address] RADIOFREQUENCY ABLATION NERVES INNERVATING THE SACROILIAC JOINT W/IMAGE GUIDANCE FLUORO OR CT [facility] Comment on above: RADIOFREQUENCY ABLATION NERVES [...] physician 11/09/2024 9:17 AM EST Hospital Encounter [facility] Surgery [address] [place] [address] Juan Daniel Contreras MD [address] [facility] [place] [address] SI (sacroiliac) joint dysfunction [M53.3] [facility] Surgery Comment on above: SI (sacroiliac) joint dysfunction [M53.3 ] Start: 11-01-2024 End: 11-01-2024 Patient encounter procedure 11/01/2024 3:20 PM EST Office Visit [facility] [address] [place], [place] [phone] Christine Dean PA-C [address] [place], [place] [phone] f/u migraines [facility] Comment on above: f/u migraines Start: 10-26-2024 End: 01-25-2025 C reactive protein [Mass/volume] in Serum or Plasma [facility] Comment on above: Expected: 10/26/2024, Expires: Start: 10-26-2024 End: 01-25-2025 CBC W Auto Differential panel - Blood [facility] Work Phone: Comment on above: Expected: 10/26/2024, Expires: Start: 10-26-2024 End: 01-25-2025 Comprehensive metabolic 2000 panel - Serum or Plasma [facility] Comment on above: Expected: 10/26/2024, Expires: Start: 10-26-2024 End: 01-25-2025 Erythrocyte sedimentation rate [facility] Comment on above: Expected: 10/26/2024, Expires: Start: 10-26-2024 End: 01-25-2025 Magnesium [Mass/volume] in Serum or Plasma [facility] Comment on above: Expected: 10/26/2024, Expires: Start: 10-26-2024 End: 01-25-2025 Thyrotropin [Units/volume] in Serum or Plasma [facility] Comment on above: Expected: 10/26/2024, Expires: Start: 10-26-2024 End: 10-26-2024 Patient encounter procedure [facility] Comment on above: Physical Physical-see phone n ote 10/23. Discuss migraine medication Start: 10-04-2024 BP Controlled (<130/80) BP Controlled (<130/80) [facility] Start: 09-21-2024 End: 12-21-2024 Comprehensive metabolic 2000 panel - Serum or Plasma COMPREHENSIVE METABOLIC PANEL Lab Routine Leg cramps Expected: 09/21/2024, Expires: 12/21/2024 [facility] Work Phone: Comment on above: Expected: 09/21/2024, Expires: Start: 09-21-2024 End: 12-21-2024 Magnesium [Mass/volume] in Serum or Plasma MAGNESIUM Lab Routine Leg cramps Expected: 09/21/2024, Expires: 12/21/2024 [facility] Comment on above: Expected: 09/21/2024, Expires: Start: 09-21-2024 End: 09-21-2024 Patient encounter procedure 09/21/2024 8:00 AM EDT Office Visit [facility] [place] [address] [place], [place] [phone] Christine Dean PA-C [address] [place], [place] [phone] Physical [facility] Comment on above: Physical Start: 09-18-2024 End: 09-18-2024 Admission to same day surgery center 09/18/2024 3:30 PM EDT [facility] [address] [phone] Carlie Brownlee APRN.DRAMATIC ARTS HISTORIAN [address] [place], [place] [phone] Medication renew discuus surgery for October Pain Management Comment on above: Medication renew discuus surgery for Oct emb Start: 08-16-2024 End: 08-16-2024 Patient encounter procedure 08/16/2024 10:00 AM EDT Office Visit [facility]ology [address] [address] Jyoti Rose MD [address] [place], [place] [phone] Elevated LALI. pe [facility] [place] Comment on above: Elevated LALI. pe Start: 08-14-2024 End: 08-14-2024 Patient encounter procedure 08/14/2024 1:00 PM EDT Office Visit Urology [address] [place], [place] [phone] Jose Antonio Mane, VINYL INSTALLER.DRAMATIC ARTS HISTORIAN, DNP [address] [place], [place] [phone] Renal stones [N20.0] Urology Comment on above: Renal stones [N20.0] Start: 07-23-2024 Covid-19 Vaccine ( season) Covid-19 Vaccine ( season) [facility] Start: 07-23-2024 Influenza vaccination [facility] Start: 06-30-2024 End: 06-30-2024 Nursing evaluation of patient and report 06/30/2024 10:00 AM EDT Nurse Visit [facility] [address] [place] [address] Nurse, Al [address] [place] [address] Suture removal on left shoulder [facility] Comment on above: Suture removal on left shoulder Start: 06-19-2024 End: 06-19-2024 Patient encounter procedure 06/19/2024 1:20 PM EDT Office Visit [facility] [address] [place] [address] Nagi Red MD [address] [place] [address] Excisional biospy 40 minute appt [facility] Comment on above: Excisional biospy 40 minute appt Start: 06-13-2024 End: 06-13-2024 Admission to same day surgery center 06/13/2024 11:26 AM EDT - 06/13/2024 12:09 PM EDT Surgery [facility] Surgery [address] [place] [address] Juan Daniel Contreras MD [address] [facility] [place] [address] RADIOFREQUENCY ABLATION NERVES INNERVATING THE SACROILIAC JOINT W/IMAGE GUIDANCE [facility] Surgery Comment on above: RADIOFREQUENCY ABLATION NERVES INNERVATI NG THE SACROILIAC JOINT W/IMAGE GUIDANCE Start: 06-13-2024 End: 06-13-2024 Radiofrequency abltj nrv nrvtg si jt w/img gdn RADIOFREQUENCY ABLATION NERVES INNERVATING THE SACROILIAC JOINT W/IMAGE GUIDANCE SI (sacroiliac) joint dysfunction 06/13/2024 11:26 AM EDT ME OR Start: 06-13-2024 Subsequent hospital visit by physician 06/13/2024 11:26 AM EDT Hospital Encounter [facility] Surgery [address] [place] [address] Juan Daniel Contreras MD [address] [facility] [place] [place] [address] SI (sacroiliac) joint dysfunction [M53.3] [facility] Surgery Comment on above: SI (sacroiliac) joint dysfunction [M53.3 ] Start: 06-05-2024 End: 06-05-2024 Patient encounter procedure 06/05/2024 10:20 AM EDT Office Visit [facility] [address] [place] [address] [id number] Renard Almodovar APRN.[employer] H[employer]ORIAN [address] [place], [place] [address] 4 week follow up HTN [facility] Comment on above: 4 week follow up HTN Start: 05-23-2024 End: 05-23-2024 Patient encounter procedure 05/23/2024 1:40 PM EDT Office Visit [facility] [address] [place] [address] Nagi Red MD [address] [place], [place] [id number] excisional bx [facility] Comment on above: excisional bx Start: 05-23-2024 End: 05-23-2024 Admission to same day surgery center 05/23/2024 10:53 AM EDT - 05/23/2024 11:36 AM EDT Surgery [facility] Surgery [address] [place] [address] Juan Daniel Contreras MD [address] [facility] [place] [address] RADIOFREQUENCY ABLATION NERVES INNERVATING THE SACROILIAC JOINT W/IMAGE GUIDANCE [facility] Surgery Comment on above: RADIOFREQUENCY ABLATION NERVES INNERVATI NG THE SACROILIAC JOINT W/IMAGE GUIDANCE Start: 05-23-2024 End: 05-23-2024 Radiofrequency abltj nrv nrvtg si jt w/img gdn RADIOFREQUENCY ABLATION NERVES INNERVATING THE SACROILIAC JOINT W/IMAGE GUIDANCE SI (sacroiliac) joint dysfunction 05/23/2024 10:53 AM EDT ME OR Start: 05-23-2024 Subsequent hospital visit by physician 05/23/2024 10:53 AM EDT Hospital Encounter [facility] Surgery [address] [place] [address] Juan Daniel Contreras MD [address] [id number] [place] [address] SI (sacroiliac) joint dysfunction [M53.3] [facility] Surgery Comment on above: SI (sacroiliac) joint dysfunction [M53.3 ] Start: 05-10-2024 End: 05-10-2024 Patient encounter procedure 05/10/2024 1:00 PM EDT Office Visit [facility] [address] [place], [place] [phone] Nagi Red MD [address] [place], [place] [phone] excisional bx [facility] Comment on above: excisional bx Start: 05-02-2024 End: 05-02-2024 Patient encounter procedure 05/02/2024 2:20 PM EDT Office Visit [facility] [address] [place] [address] Nagi Red MD [address] [place] [address] excisional biopsy [facility] Comment on above: excisional biopsy Start: 04-27-2024 ANNUAL PCP TEAM CHRONIC DISEASE VISIT ANNUAL PCP TEAM CHRONIC DISEASE VISIT [facility] Start: 04-27-2024 End: 04-27-2024 Patient encounter procedure 04/27/2024 10:20 AM EDT Office Visit Family [facility] [address] [place], [place] [phone] Nagi Red MD [address] [place], [place] [phone] excisional biopsy [facility] Comment on above: excisional biopsy Start: 04-26-2024 End: 04-26-2024 ambulatory 04/26/2024 11:15 AM EDT Procedure PULM LAB [facility] [address] [place] [address] Wstr, Pulm Lab [facility] [address] [place] [address] Exercise-induced asthma [J45.990] [facility] WS Comment on above: Exercise-induced asthma [J45.990] Start: 04-25-2024 End: 07-25-2024 Angiotensin converting enzyme [Enzymatic activity/volume] in Serum or Plasma KATHERINE/ANGIOTENSIN BLD Lab Routine SOB (shortness of breath) Expected: 04/25/2024, Expires: 07/25/2024 [facility] Comment on above: Expected: 04/25/2024, Expires: Start: 04-25-2024 End: 04-25-2024 Patient encounter procedure 04/25/2024 11:20 AM EDT Office Visit [facility] [address] [place] [address] Nagi Red MD [address] [place] [address] Physical [facility] Comment on above: Physical Start: 04-19-2024 End: 07-19-2024 25-hydroxyvitamin D3 [Mass/volume] in Serum or Plasma VITAMIN D 25 HYDROXY Lab Routine Vitamin D deficiency Expected: 04/19/2024, Expires: 07/19/2024 [facility] Comment on above: Expected: 04/19/2024, Expires: Start: 04-19-2024 End: 07-19-2024 CBC W Auto Differential panel - Blood COMPLETE BLOOD COUNT AND DIFFERENTIAL Lab Routine Post-surgical hypothyroidism Expected: 04/19/2024, Expires: 07/19/2024 [facility] Comment on above: Expected: 04/19/2024, Expires: Start: 04-19-2024 End: 07-19-2024 Comprehensive metabolic 2000 panel - Serum or Plasma COMPREHENSIVE METABOLIC PANEL Lab Routine Hypertension, essential Expected: 04/19/2024, Expires: 07/19/2024 [facility] Work Phone: Comment on above: Expected: 04/19/2024, Expires: Start: 04-19-2024 End: 07-19-2024 Hemoglobin A1c in Blood HEMOGLOBIN A1C Lab Routine Encounter for screening for diabetes mellitus Expected: 04/19/2024, Expires: 07/19/2024 [facility] Comment on above: Expected: 04/19/2024, Expires: Start: 04-19-2024 End: 07-19-2024 LIPID PANEL, NONFASTING LIPID PANEL, NONFASTING Lab Routine Hypertension, essential Expected: 04/19/2024, Expires: 07/19/2024 [facility] Comment on above: Expected: 04/19/2024, Expires: Start: 04-19-2024 End: 07-19-2024 Thyrotropin [Units/volume] in Serum or Plasma THYROID STIMULATING HORMONE Lab Routine Post-surgical hypothyroidism Expected: 04/19/2024, Expires: 07/19/2024 [facility] Comment on above: Expected: 04/19/2024, Expires: Start: 04-19-2024 End: 07-19-2024 Urinalysis complete panel - Urine URINALYSIS, WITH MICROSCOPIC Lab Routine Hypertension, essential Expected: 04/19/2024, Expires: 07/19/2024 [facility] Comment on above: Expected: 04/19/2024, Expires: Start: 04-14-2024 End: 04-14-2024 Patient encounter procedure 04/14/2024 9:20 AM EDT Office Visit Family [facility] [address] [place] [phone] Nagi Red MD [address] [facility] [place] [phone] excisional biopsy [facility] Comment on above: excisional biopsy Start: 03-25-2024 End: 03-25-2024 Patient encounter procedure 03/25/2024 9:20 AM EDT Office Visit [facility] [address] [place], [place] [phone] Nagi Red MD [address] [place], [place] [address] Skin lesion on back made [address] Red needs to remove rj [facility] Comment on above: Skin lesion on back made 40 minutes in c ase Dr. Red needs to remove rj Start: 03-21-2024 End: 03-21-2024 ambulatory 03/21/2024 9:00 AM EDT [facility] [address] [address] Zackary Mchugh MD [address] [place] [address] [facility] Comment on above: Kidney Stones Start: 03-03-2024 ANNUAL PCP TEAM CHRONIC DISEASE VISIT ANNUAL PCP TEAM CHRONIC DISEASE VISIT [facility] Start: 11-22-2023 Behavioral Health Screening Behavioral Health Screening [facility] Start: 11-22-2023 Depression Assessment Depression Assessment [facility] Start: 09-16-2023 Thyroid stimulating hormone measurement TSH [facility] Start: 09-01-2023 ANNUAL PCP TEAM CHRONIC DISEASE VISIT ANNUAL PCP TEAM CHRONIC DISEASE VISIT [facility] Start: 08-20-2023 End: 10-20-2023 25-hydroxyvitamin D3 [Mass/volume] in Serum or Plasma VITAMIN D 25 HYDROXY Lab Routine Vitamin D deficiency Expected: 08/20/2023, Expires: 10/20/2023 [facility] Work Phone: Comment on above: Expected: 08/20/2023, Expires: Start: 08-20-2023 End: 10-20-2023 CBC W Auto Differential panel - Blood CBC + DIFF Lab Routine Primary thyroid papillary carcinoma (HCC) PTSD (post-traumatic stress disorder) Expected: 08/20/2023, Expires: 10/20/2023 [facility] Work Phone: Comment on above: Expected: 08/20/2023, Expires: 3 Start: 08-20-2023 End: 10-20-2023 Comprehensive metabolic 2000 panel - Serum or Plasma COMP METABOLIC PANEL Lab Routine Hypertension, essential Expected: 08/20/2023, Expires: 10/20/2023 [facility] Work Phone: Comment on above: Expected: 08/20/2023, Expires: Start: 08-20-2023 End: 10-20-2023 Hemoglobin A1c in Blood HGB A1C Lab Routine Encounter for screening for diabetes mellitus Expected: 08/20/2023, Expires: 10/20/2023 [facility] Work Phone: Comment on above: Expected: 08/20/2023, Expires: 3 Start: 08-20-2023 End: 10-20-2023 LIPID PANEL, NONFASTING LIPID PANEL, NONFASTING Lab Routine Hypertension, essential Expected: 08/20/2023, Expires: 10/20/2023 [facility] Work Phone: Comment on above: Expected: 08/20/2023, Expires: 3 Start: 08-20-2023 End: 10-20-2023 Urinalysis complete panel - Urine URINALYSIS, WITH MICROSCOPIC Lab Routine Hypertension, essential Expected: 08/20/2023, Expires: 10/20/2023 [facility] Work Phone: Comment on above: Expected: 08/20/2023, Expires: 3 Start: 07-23-2023 Covid-19 Vaccine ( season) Covid-19 Vaccine ( season) [facility] Start: 07-23-2023 Influenza vaccination [facility] Start: 07-06-2023 Adult depression screening assessment DEPRESSION SCREENING [facility] Start: 07-06-2023 ANNUAL PCP TEAM CHRONIC DISEASE VISIT ANNUAL PCP TEAM CHRONIC DISEASE VISIT [facility] Start: 04-27-2023 End: 06-27-2023 Thyrotropin [Units/volume] in Serum or Plasma [facility] Work Phone: Comment on above: Expected: 04/27/2023, Expires: 3 Start: 04-27-2023 End: 06-27-2023 Thyroxine (T4) free [Mass/volume] in Serum or Plasma [facility] Work Phone: Comment on above: Expected: 04/27/2023, Expires: 3 Start: 04-27-2023 End: 06-27-2023 Triiodothyronine (T3) [Mass/volume] in Serum or Plasma [facility] Work Phone: Comment on above: Expected: 04/27/2023, Expires: 3 Start: 03-18-2023 Thyroid stimulating hormone measurement TSH [facility] Start: 03-17-2023 End: 03-17-2023 Patient encounter procedure 03/17/2023 Office Visit Endocrinology, Diabetes & Metabolism Caitlyn Rivera MD [address] [place] [id number] Division of Endocrinology Start: 03-03-2023 End: 05-03-2023 LIPID PANEL, NONFASTING LIPID PANEL, NONFASTING Lab Routine Hypertension, essential Expected: 03/03/2023, Expires: 05/03/2023 [facility] Work Phone: Comment on above: Expected: 03/03/2023, Expires: 3 Start: 11-22-2022 DEPRESSION ASSESSMENT DEPRESSION ASSESSMENT [facility] Start: 09-16-2022 End: 09-16-2023 THYROGLOBULIN&THYROGLOBUL IN AB [facility] Comment on above: Expected: 09/16/2022, Expires: 3 Start: 09-16-2022 End: 09-16-2022 Patient encounter procedure 09/16/2022 Office Visit Endocrinology, Diabetes & Metabolism Caitlyn Rivera MD [address] [place] [address] Division of Endocrinology Start: 08-11-2022 Potassium [Moles/volume] in Serum or Plasma POTASSIUM [facility] Start: 07-23-2022 Influenza vaccination [facility] Start: 07-06-2022 End: 09-05-2022 Hemoglobin A1c in Blood [facility] Work Phone: Comment on above: Expected: 07/06/2022, Expires: 2 Start: 07-06-2022 End: 09-05-2022 Thyrotropin [Units/volume] in Serum or Plasma [facility] Work Phone: Comment on above: Expected: 07/06/2022, Expires: 2 Start: 06-04-2022 Thyroid stimulating hormone measurement TSH [facility] Start: 05-06-2022 PAP TESTING PAP TESTING [facility] Start: 05-06-2022 Screening for malignant neoplasm of cervix Pap Testing [facility] Start: 04-21-2022 End: 04-21-2022 Telemedicine consultation with patient 04/21/2022 Telemedicine Otolaryngology Osvaldo Tapia MD [address] [place] [address] Department of Otolaryngology Start: 04-17-2022 End: 04-17-2022 Patient encounter procedure 04/17/2022 Appointment Magnetic Resonance Imaging Karen Land APRN-CNP [address] [place] [address] Imaging and M[facility]ography [facility] Start: 03-26-2022 End: 03-26-2023 MR Salivary gland MRI SIALOGRAM Imaging Routine Sialadenitis Expected: 03/26/2022, Expires: 03/26/2023 [facility] Comment on above: Expected: 03/26/2022, Expires: 3 Start: 03-26-2022 End: 03-26-2022 ambulatory 03/26/2022 Rehab Services Visit Voice & Swallowing Osvaldo Tapia MD [address] [place] [address] [facility] Start: 03-26-2022 End: 03-26-2022 Patient encounter procedure 03/26/2022 Office Visit Otolaryngology Osvaldo Tapia MD [address] [place] [address] Department of Otolaryngology Start: 10-15-2021 End: 10-15-2021 Patient encounter procedure 10/15/2021 Office Visit Endocrinology, Diabetes & Metabolism Caitlyn Rivera MD [address] [place] [address] Division of Endocrinology Start: 07-23-2021 Influenza vaccination INFLUENZA VACCINE (#1) [facility] Start: 2021 HPV TESTING HPV TESTING [facility] Start: 2021 Screening for malignant neoplasm of cervix HPV Testing [facility] Start: 11-04-2020 ANNUAL PCP TEAM CHRONIC DISEASE VISIT ANNUAL PCP TEAM CHRONIC DISEASE VISIT [facility] Start: 05-06-2020 Screening for malignant neoplasm of cervix Cervical Cancer Screening [facility] Start: 05-20-2018 Adult depression screening assessment DEPRESSION SCREENING [facility] Start: 2012 Screening for malignant neoplasm of cervix CERVICAL CANCER SCREENING DISCUSSION [facility] Start: 2010 PNEUMOCOCCAL VACCINE SERIES (1 of 2 - PCV) PNEUMOCOCCAL VACCINE SERIES (1 of 2 - PCV) [facility] Start: 2010 Third diphtheria, tetanus and acellular pertussis (DTaP) vaccination TDAP (ADULT) [facility] Start: 2010 Zoster vaccine hzv live for subcutaneous use ZOSTER (SHINGLES) VACCINE (1 of 2) [facility] Start: 2009 ANNUAL PCP TEAM CHRONIC DISEASE VISIT ANNUAL PCP TEAM CHRONIC DISEASE VISIT [facility] Start: 2009 BP CONTROLLED (<130/80) BP CONTROLLED (<130/80) [facility] in Start: 2009 Depression Screening Depression Screening [facility] Start: 2009 HEPATITIS C SCREENING HEPATITIS C SCREENING [facility] Start: 2009 Hepatitis C screening Hepatitis C Screening [facility] Start: 2009 SPIROMETRY SPIROMETRY [facility] Start: 2009 Tetanus vaccination TETANUS [facility] Start: 2006 HIV screening HIV SCREENING DISCUSSION [facility] Start: 2003 COVID-19 VACCINE (1) COVID-19 VACCINE (1) [facility] Start: 1997 PNEUMOCOCCAL (1 - PCV) PNEUMOCOCCAL (1 - PCV) [facility] Start: 1997 Pneumococcal vaccination [facility] Start: 1997 PNEUMOCOCCAL VACCINE SERIES (1 - PCV) PNEUMOCOCCAL VACCINE SERIES (1 - PCV) [facility] Start: 1997 PNEUMOCOCCAL VACCINE SERIES (1 of 2 - PCV) PNEUMOCOCCAL VACCINE SERIES (1 of 2 - PCV) [facility] Start: 1996 COVID-19 VACCINE (#1) COVID-19 VACCINE (#1) [facility] Start: 1996 COVID-19 VACCINE (1) COVID-19 VACCINE (1) [facility] Start: 1991 COVID-19 VACCINE (#1) COVID-19 VACCINE (#1) [facility] Start: 1991 Hepatitis C antibody, confirmatory test HEPATITIS C VIRUS SCREENING [facility] Start: 1991 Hepatitis C screening HEPATITIS C VIRUS SCREENING [facility] Bacteria identified in Urine by Culture URINE CULTURE Microbiology Routine Dysuria Ordered: 09/29/2024 [facility] Work Phone: Comment on above: Ordered: 09/29/2024 Bacteria identified in Urine by Culture BACTERIAL CULTURE, URINE Microbiology Routine Kidney stones Right flank pain Hematuria, unspecified type 06/07/2025 1:36 PM EDT [facility] CBC W Auto Different ial panel - Blood CBC + DIFF Lab Routine Hypertension, essential Weight gain Primary thyroid papillary carcinoma (HCC) 07/06/2022 10:35 AM EDT [facility] Work Phone: COVID & INFLUENZA A/ B & RSV NAAT, ROUTINE COVID & INFLUENZA A/B & RSV NAAT, ROUTINE Microbiology Routine URI, acute 01/07/2024 11:20 AM EST [facility] Work Phone: COVID & INFLUENZA A/ B & RSV PCR, ROUTINE COVID & INFLUENZA A/B & RSV PCR, ROUTINE Microbiology Routine Viral illness Ordered: 09/15/2024 [facility] Work Phone: Comment on above: Ordered: 09/15/2024 End: 06-07-2026 CT Abdomen and Pelvis WO contrast CT FLANK WO IVCON Radiology Routine Nausea Nausea and vomiting, unspecified vomiting type RUQ pain Right flank pain 1 Occurrences starting 05/08/2025 until 06/07/2026 [facility] Comment on above: 1 Occurrences starting 05/08/2025 until 06/07/2026 End: 05-26-2024 Ct angiography chest w/contrast/noncontrast CTA CHEST (NONGATED) W IVCON Radiology STAT Adverse effect of treatment, initial encounter 1 Occurrences starting 04/27/2023 until 05/26/2024 [facility] Work Phone: Comment on above: 1 Occurrences starting 04/27/2023 until 05/26/2024 End: 06-07-2026 CT Chest WO contrast CT CHEST WO IVCON Radiology Routine SOB (shortness of breath) 1 Occurrences starting 05/08/2025 until 06/07/2026 [facility] Comment on above: 1 Occurrences starting 05/08/2025 until 06/07/2026 End: 05-26-2024 CTA NECK W IVCON CTA NECK W IVCON Radiology Routine Adverse effect of treatment, initial encounter 1 Occurrences starting 04/27/2023 until 05/26/2024 [facility] Work Phone: Comment on above: 1 Occurrences starting 04/27/2023 until 05/26/2024 Dstrj neurolytic age nt other peripheral nerve NRV DESTR RFA, CHEM OTHER Procedures Routine SI (sacroiliac) joint dysfunction Ordered: 04/07/2022 [facility] Work Phone: Comment on above: Ordered: 04/07/2022 Dstrj neurolytic age nt other peripheral nerve NRV DESTR RFA, CHEM OTHER Procedures Routine SI (sacroiliac) joint dysfunction Ordered: 11/25/2022 [facility] Work Phone: Comment on above: Ordered: 11/25/2022 Dstrj neurolytic age nt other peripheral nerve NRV DESTR RFA, CHEM OTHER Procedures Routine SI (sacroiliac) joint dysfunction Ordered: 06/08/2023 [facility] Work Phone: Comment on above: Ordered: 06/08/2023 Dstrj neurolytic age nt other peripheral nerve NRV DESTR RFA, CHEM OTHER Procedures Routine SI (sacroiliac) joint dysfunction Ordered: 03/16/2024 [facility] Work Phone: Comment on above: Ordered: 03/16/2024 Dstrj neurolytic age nt other peripheral nerve NRV DESTR RFA, CHEM OTHER Procedures Routine SI (sacroiliac) joint dysfunction Ordered: 09/18/2024 [facility] Work Phone: Comment on above: Ordered: 09/18/2024 Dstrj neurolytic age nt other peripheral nerve NRV DESTR RFA, CHEM OTHER Procedures Routine SI (sacroiliac) joint dysfunction Ordered: 03/02/2025 [facility] Work Phone: Comment on above: Ordered: 03/02/2025 Inject si joint arthrgrphy&/anes/steroid w/jayce INJECTION PROCEDURE FOR SACROILIAC Procedures Routine SI (sacroiliac) joint dysfunction Sacroiliitis, not elsewhere classified (HCC) 1 Occurrences starting 01/12/2023 [facility] Work Phone: Comment on above: 1 Occurrences starting 01/12/2023 End: 06-07-2026 METHACHOLINE CHALLENGE METHACHOLINE CHALLENGE PFT Routine SOB (shortness of breath) 1 Occurrences starting 05/08/2025 until 06/07/2026 [facility] Comment on above: 1 Occurrences starting 05/08/2025 until 06/07/2026 End: 01-14-2026 MR Brain WO contrast MRI BRAIN WO IVCON Radiology Routine Migraine without aura and without status migrainosus, not intractable 1 Occurrences starting 12/15/2024 until 01/14/2026 [facility] Work Phone: Comment on above: 1 Occurrences starting 12/15/2024 until 01/14/2026 End: 06-14-2025 MR Lumbar spine WO contrast MRI LUMBAR SPINE WO IVCON Radiology Routine Spinal stenosis of lumbar region, unspecified whether neurogenic claudication present Radiculopathy, lumbar region Spinal stenosis of lumbar region with neurogenic claudication 1 Occurrences starting 05/16/2024 until 06/14/2025 [facility] Work Phone: Comment on above: 1 Occurrences starting 05/16/2024 until 06/14/2025 End: 04-17-2022 MR Salivary gland [facility] Comment on above: 1 Occurrences starting 04/17/2022 until 04/17/2022 End: 06-07-2026 NITRIC OXIDE, EXHALED NITRIC OXIDE, EXHALED PFT Routine SOB (shortness of breath) 1 Occurrences starting 05/08/2025 until 06/07/2026 [facility] Work Phone: Comment on above: 1 Occurrences starting 05/08/2025 until 06/07/2026 Protein [Mass/time] in 24 hour Urine PROTEIN, 24 HOUR URINE Lab Routine Proteinuria, unspecified type Ordered: 05/08/2025 [facility] Comment on above: Ordered: 05/08/2025 End: 05-25-2025 SPIROMETRY - BASELINE AND POST DILATOR SPIROMETRY - BASELINE AND POST DILATOR PFT Routine Exercise-induced asthma SOB (shortness of breath) 1 Occurrences starting 04/25/2024 until 05/25/2025 [facility] Work Phone: Comment on above: 1 Occurrences starting 04/25/2024 until 05/25/2025 SPIROMETRY - BASELIN E AND POST DILATOR SPIROMETRY - BASELINE AND POST DILATOR PFT Routine Exercise-induced asthma SOB (shortness of breath) 04/26/2024 11:16 AM EDT [facility] Work Phone: Thyrotropin [Units/volume] in Serum or Plasma THYROID STIMULATING HORMONE Lab Routine Bilateral pleural effusion Post-surgical hypothyroidism 05/02/2025 2:14 PM EDT [facility] Thyroxine (T4) free [Mass/volume] in Serum or Plasma T4 FREE/FREE THYROXINE Lab Routine Bilateral pleural effusion Post-surgical hypothyroidism 05/02/2025 2:14 PM EDT [facility] UA DIP, URINE (POC) UA DIP, URIN E (POC) Lab Routine Kidney stones Right flank pain Ordered: 06/07/2025 [facility] Work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 migrainosus, not intractable (05/20/2017), Multiple thyroid nodules (07/26/2019), Neoplasm of uncertain behavior of skin of back, Obesity, Class I, BMI 30-34.9 (03/03/2023), Other and unspecified ovarian cyst, Other joint derangement, not elsewhere classified, lower leg (08/20/2008), 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), PMH - PAST MEDICAL HISTORY OF, Post-surgical hypothyroidism (08/25/2019), Primary thyroid papillary carcinoma ([facility]) (07/21/2019), PTSD (post-traumatic stress disorder) (02/14/2018), PTSD (post-traumatic stress disorder), S/P total thyroidectomy (07/31/2019), Sacroiliitis, not elsewhere classified (02/20/2013), SI (sacroiliac) joint dysfunction (11/06/2015), Spinal stenosis of lumbar region, unspecified whether neurogenic claudication present, Trauma, Uncontrolled daytime somnolence (01/01/2015), Unspecified asthma(493.90) (05/2004), Ureteral dilatation (03/31/2012), Vitamin D deficiency (03/22/2014), and Vomiting, persistent, in adult (03/03/2023). Past Surgical History: -Patient has a past surgical history that includes dilat female urethra w/suppository&/instlj ini (09/2000); arthroscopy knee diagnostic w/wo synovial bx spx (Right); correct bunion,simple (Right, 01/29/2009); lumbar or caudal epidural inj (2011); injection for nerve block (2010,2011); laparoscopy surg cholecystectomy (2012); fna with imaging (07/18/2014); esophagogastroduodenoscopy transoral diagnostic (02/21/2015); sinus surgery hx (2013); fna (07/18/2019); cystoscopy,remv ureteral stone (2016); colonoscopy (12/16/2021); salpingectomy (Bilateral, 10/23/2022); and thyroidectomy (07/2019). Medications: -Patient has a current medication list which includes the following prescription(s): ketorolac, tramadol, tramadol, sumatriptan, magnesium glycinate, riboflavin (vitamin b2), hydrochlorothiazide, propranolol, quetiapine, cariprazine, cholecalciferol (vitamin d3), cyclobenzaprine, albuterol hfa, levothyroxine, levothyroxine, and etonogestrel. Allergies: -Patient is allergic to adhesive, morphine sulfate, and adderall [dextroamphetamine-amphetamine]. Family History: -Patient family history includes Asthma in her mother; CROHNS in her mother; Cancer in her maternal uncle; Diabetes in her mother; Heart in her sister; Hypertension in her father and mother; KIDNEY PROBLEMS in her mother; LIVER SCLEROSIS in her mother; LUPUS in her mother; PCOS in her sister. Social History: -Patient reports that she has never smoked. She has never used smokeless tobacco. She reports that she does not drink alcohol and does not use drugs. I have confirmed and edited as necessary, the PFSH and ROS obtained by others. OBJECTIVE: PHYSICAL EXAMINATION: BP 136/100 (BP Position: Standing) Pulse 91 LMP 08/18/2024 (Approximate) Constitutional: Non-toxic , No acute distress. Psych: Calm, cooperative Eyes: Lids appear normal. Conjunctivae are not injected. Respiratory: No acute respiratory distress. No audible wheeze. : No Shannon DATA: Clinic: Urine dipstick shows: URINALYSIS: GLUCOSE UA (POCT) Negative 06/07/2025 BILIRUBIN UA (POCT) Negative 06/07/2025 KETONE UA (POCT) Negative 06/07/2025 SPECIFIC GRAVITY UA (POCT) 1.020 06/07/2025 HEMOGLOBIN/BLOOD UA (POCT) Trace-intact 06/07/2025 PH UA (POCT) 6.0 06/07/2025 PROTEIN UA (POCT) Trace 06/07/2025 UROBILINOGEN UA (POCT) 0.2 06/07/2025 NITRITE UA (POCT) Negative 06/07/2025 LEUKOCYTES UA (POCT) Trace 06/07/2025 COLOR UA (POCT) Yellow 06/07/2025 CLARITY UA (POCT) Clear 06/07/2025 Laboratory: Creatinine Date Value Ref Range Status 10/26/2024 0.84 0.58 - 0.96 mg/dL Final 04/24/2024 0.62 0.58 - 0.96 mg/dL Final 04/27/2023 1.16 (H) 0.58 - 0.96 mg/dL Final 03/27/2023 0.76 0.58 - 0.96 mg/dL Final Cultures: Culture Results - Past 1 Year Culture 09/29/2024 10,000 -<50,000 CFU/ml Normal urogenital lydia 06/07/2025 No growth (<1,000 CFU/ml) Susceptibility Tests - Past 1 Year Collected Organism 09/29/24 Normal urogenital lydia ASSESSMENT AND PLAN Greta Andres is 35 year old with: (N20.0) Bilateral nephrolithiasis (primary encounter diagnosis) (R10.9) Right flank pain (Z98.890) History of ureteroscopy (R82.90) Abnormal finding on urinalysis Medical records personally reviewed and found significant for: Cr, UCx, RBUS As background copied from prior notes, changes made: 35 yo F in office to discuss further management of nephrolithiasis. She reports that she was diagnosed with stones 02/2025. In that time she has had significant right flank pain. This has been managed with Toradol. Additionally she reports multiple ER visits. She also states that she is also seeing GI providers and they feel this pain is renal in origin. She reports prior history of ureteroscopy with stent in remote past. RBUS 04/2025 indicated b/l stones up to 8mm. She states no recent CT in 3 months and lately pain worsening. As I was concerned about possible ureteral stone and wanting to further clarify stone burden, recommended STAT CT flank; she was amenable Cr WNL and UCx in past w/o infection . UA micro 1x w/ RBCs Refill Toradol and give in office injection to help. Pt has h/o tubal ligation, denies Plan: CT flank STAT and RTC to discuss stone tx -Patient will call the clinic or use [employer] should anything change or any new issues arise -All questions were answered Greta Templeton DO Staff Urologist Medical Decision Making: Problems: Moderate: 1+ chronic illnesses with change Data: Unique test result(s) reviewed: 3+ Medical Decision Making Level: 4 - Moderate Please note: This note has been produced using speech recognition software and may contain errors related to that system including grammar, punctuation, spelling, gender and words and phrases that may be inappropriate. documented in this encounter [facility] 06-15-2025 History of Present illness Narrative Radiology Service Progress Note PATIENT NAME: Greta Andres DATE OF SERVICE: June 15, 2025 TIME: 12:46 PM PATIENT IDENTITY VERIFICATION COMPLETED USING TWO (2) IDENTIFIERS: Name and Date of confirmed by patient verbally and Name and Date of confirmed by identification band. FALL SCREENING: Has the patient had 2 falls in the last year or 1 fall with injury or currently using an Ambulatory Assistive Device (Walker, Cane, Wheelchair, Crutches, etc.)? No PATIENT GENDER DATA: Assigned female at . status: : No status: N/A PATIENT RELEVANT IMPLANT DATA REVIEWED: Not Applicable PATIENT PRESENTS WITH AN IMPLANTABLE OR ATTACHED PROFESSIONAL SECURITY OFFICER: No RADIOLOGY DEPARTMENT: CT; Exam(s) Completed: Flank Study PERIPHERAL IV DATA: Not applicable SIGNED BY: RT Vanessa(Aniket) June 15, 2025 12:46 PM documented in this encounter [facility] 06-15-2025 Note HNO ID: [id number] Author: GUY BOWMAN RT(R) Service: Radiology Author Type: [employer] Director Type: Progress Notes Filed: 06/15/2025 12:46 Note Text: Radiology Service Progress Note PATIENT NAME: Greta Andres DATE OF SERVICE: June 15, 2025 TIME: 12:46 PM PATIENT IDENTITY VERIFICATION COMPLETED USING TWO (2) IDENTIFIERS: Name and Date of confirmed by patient verbally and Name and Date of confirmed by identification band. FALL SCREENING: Has the patient had 2 falls in the last year or 1 fall with injury or currently using an Ambulatory Assistive Device (Walker, Cane, Wheelchair, Crutches, etc.)? No PATIENT GENDER DATA: Assigned female at . status: : No status: N/A PATIENT RELEVANT IMPLANT DATA REVIEWED: Not Applicable PATIENT PRESENTS WITH AN IMPLANTABLE OR ATTACHED PROFESSIONAL SECURITY OFFICER: No RADIOLOGY DEPARTMENT: CT; Exam(s) Completed: Flank Study PERIPHERAL IV DATA: Not applicable SIGNED BY: BIJU Mendez) June 15, 2025 12:46 PM [facility] 06-15-2025 Note HNO ID: [id number] Author: YANCI NAVARRETE RN Service: ? Author Type: Registered Nurse Type: Procedures Filed: 06/15/2025 14:15 Note Text: Medication requested and received from pharmacy. Injection given IM in left deltoid sites. Pt jamaal well. Post injection instructions given. Educated on side effects and s/s of allergic reaction. No further c/o or concerns. Verbalized understanding. Yanci Navarrete RN [facility] 06-15-2025 Procedure note Medication requested and received from pharmacy. Injection given IM in left deltoid sites. Pt jamaal well. Post injection instructions given. Educated on side effects and s/s of allergic reaction. No further c/o or concerns. Verbalized understanding. Yanci Navarrete RN [facility] 06-15-2025 Procedure note Medication requested and received from pharmacy. Injection given IM in left deltoid sites. Pt jamaal well. Post injection instructions given. Educated on side effects and s/s of allergic reaction. No further c/o or concerns. Verbalized understanding. Yanci Navarrete RN documented in this encounter [facility] 06-12-2025 Telephone encounter Note I sent in the refill for 1 month. Please have her schedule with Carlie Baird APRN.DRAMATIC [employer] HISTORIAN [facility] 06-12-2025 Miscellaneous Notes I sent in the refill for 1 month. Please have her schedule with Carlie Baird APRN.DRAMATIC ARTS HISTORIAN Is that the soonest appointment for Carlie? It has already been over 3 months since the patient was seen. I am happy to provide a bridge prescription but this would be an additional month. Thank you Oscar Mcmillan PA-C Prescription Refill Information The patient has been identified by name and date of : Yes Caregiver verified no other encounters exist for this prescription request: Yes Caregiver confirmed with patient/requestor that no other refills are due, in the near future, with this provider at this time: Yes The last office visit in the department: 03/02/25 with Carlie Brownlee CNP Does the patient have a future office visit with this provider/department: Yes: 07/17/25 with Carlie Brownlee CNP Requested Prescriptions Pending Prescriptions Disp Refills traMADol (ULTRAM) 50 mg tablet 45 tablet 2 Sig: Take 1-2 pills by mouth once a day for pain, erican Vinh Pierson MA June 11, 2025 8:28 AM documented in this encounter [facility] 06-11-2025 Telephone encounter Note Is that the soonest appointment for Carlie? It has already been over 3 months since the patient was seen. I am happy to provide a bridge prescription but this would be an additional month. Thank you Oscar Mcmillan PA-C [facility] Work Phone: 06-11-2025 Telephone encounter Note Prescription Refill Information The patient has been identified by name and date of : Yes Caregiver verified no other encounters exist for this prescription request: Yes Caregiver confirmed with patient/requestor that no other refills are due, in the near future, with this provider at this time: Yes The last office visit in the department: 03/02/25 with Carlie Brownlee CNP Does the patient have a future office visit with this provider/department: Yes: 07/17/25 with Carlie Brownlee CNP Requested Prescriptions Pending Prescriptions Disp Refills traMADol (ULTRAM) 50 mg tablet 45 tablet 2 Sig: Take 1-2 pills by mouth once a day for pain, erican Vinh Pierson MA June 11, 2025 8:28 AM [facility] 06-07-2025 Telephone encounter Note Thank you. [facility] 06-07-2025 Miscellaneous Notes Thank you. Spoke with patient advised pharmacy unable to fill oral Toradol. She will continue Tylenol and Ibuprofen for pain management. Linnette Douglas MA Received call from [facility] pharmacy - they unable to fill oral Ketorolac 10 mg. Toradol oral has to be prescribed as a continuation of care from IM or IV. Call back to [facility] - [phone] Linnette Douglas MA documented in this encounter [facility] 06-07-2025 Telephone encounter Note Spoke with patient advised pharmacy unable to fill oral Toradol. She will continue Tylenol and Ibuprofen for pain management. Linnette Douglas MA [facility] 06-07-2025 Telephone encounter Note Received call from [facility] pharmacy - they unable to fill oral Ketorolac 10 mg. Toradol oral has to be prescribed as a continuation of care from IM or IV. Call back to [facility] - [phone] Linnette Douglas MA [facility] 06-07-2025 Instructions Sarah Miramontes APRN.MARGARITA - 06/07/2025 1:21 PM EDT Images from the original note were not included. Diet Changes Drink enough fluids each day. If you are not producing enough urine, your health care provider will recommend you drink at least 3 liters of liquid each day. This equals about 3 quarts (about ten 10-ounce glasses). This is a great way to lower your risk of forming new stones. Remember to drink more to replace fluids lost when you sweat from exercise or in hot weather. All fluids count toward your fluid intake. But it's best to drink mostly no-calorie or low-calorie drinks. This may mean limiting sugar-sweetened or alcoholic drinks. Knowing how much you drink during the day can help you understand how much you need to drink to produce 2.5 liters of urine. Use a household measuring cup to measure how much liquid you drink for a day or two. Drink from bottles or cans with the fluid ounces listed on the label. Keep a log, and add up the ounces at the end of the day or 24-hour period. Use this total to be sure you are reaching your daily target urine amount of at least 85 ounces (2.5 liters) of urine daily. Health care providers recommend people who form cystine stones drink more liquid than other stone formers. Usually 4 liters of liquid is advised to reduce cystine levels in your urine. Reduce the amount of salt in your diet. This tip is for people with high sodium intake and high urine calcium or cystine. Sodium can cause both urine calcium and cystine to be too high. Your health care provider may advise you to avoid foods that have a lot of salt. The Centers for Disease Control (CDC) and other health groups advise not eating more than 2,300 mg of salt per day. The following foods are high in salt and should be eaten in moderation: Cheese (all types) Most frozen foods and meats, including salty cured meats, deli meats (cold cuts), hot dogs, bratwurst and sausages Canned soups and vegetables Breads, bagels, rolls and baked goods Salty snacks, like chips and pretzels Bottled salad dressings and certain breakfast cereals Pickles and olives Casseroles, other mixed foods, pizza and lasagna Canned and bottled sauces Certain condiments, table salt and some spice blends Eat the recommended amount of calcium. If you take calcium supplements, make sure you aren't getting too much calcium. On the other hand make sure you aren't getting too little calcium either. Talk with your health care provider or dietitian about whether you need supplements. Good sources of calcium to choose from often are those low in salt. Eating calcium-rich foods or beverages with meals every day is a good habit. There are many non-dairy sources of calcium, such as calcium-fortified non-dairy milks. There are good choices, especially if you avoid dairy. You can usually get enough calcium from your diet without supplements if you eat [id number] servings of calcium-rich food. Many foods and beverages have calcium in them. Some foods and beverages that might be easy to include on a daily basis with meals are: Table of Foods Rich in Calcium Eat plenty of fruits and vegetables. Eating at least five servings of fruits and vegetables daily is recommended for all people who form kidney stones. Eating fruits and vegetables give you potassium, fiber, magnesium, antioxidants, phytate and citrate, all of which may help keep stones from forming. A serving means one piece of fruit or one potato or one cup of raw vegetables. For cooked vegetables, a serving is cup. If you are worried you may not be eating the right amount of fruits and vegetables, talk to your health care provider about what will be best for you. Eat foods with low oxalate levels. This recommendation is for patients with high urine oxalate. Eating calcium-rich foods (see table above) with meals can often control the oxalate level in your urine. Urinary oxalate is controlled because eating calcium lowers the oxalate level in your body. But if doing that does not control your urine oxalate, you may be asked to eat less of certain high-oxalate foods. Nearly all plant foods have oxalate, but a few foods contain a lot of it. These include spinach, rhubarb and almonds. It is usually not necessary to completely stop eating foods that contain oxalate. This needs to be determined individually and depends on why your oxalate levels are high in the first place. Eat less meat. If you make cystine or calcium oxalate stones and your urine uric acid is high, your health care provider may tell you to eat less animal protein. If your health care provider thinks your diet is increasing your risk for stones, he or she will tell you to eat less meat, fish, seafood, poultry, pork, tse, mutton and game meat than you eat now. This might mean eating these foods once or twice rather than two or three times a day, fewer times during the week, or eating smaller portions when you do eat them. The amount to limit depends on how much you eat now and how much your diet is affecting your uric acid levels. https://www.urologyhealth.org/urology- a-z/k/kidney-stones#Prevention%20of%20 Future%20Stones documented in this encounter [facility] 06-07-2025 History of Present illness Narrative Images from the original note were not included. [facility] [place] [facility] [place] EXCHANGE NEW PATIENT UROLOGY VISIT 06/07/2025 10:21 AM PATIENT NAME: Greta Andres DATE OF : 1990 TODAY'S DATE: 06/07/2025 Referring Provider: Nagi Red [address] [place] [id number] Referring Note Reviewed: Yes Chief Complaint: kidney stones, right flank pain History of Present Illness: Ms. Andres is a 35 year old female who presents to the office regarding kidney stones and right flank pain since February 2025. She went to [facility] ER on 03/18/25 Found to have bilateral non-obstructing kidney stones CT ABD PEL WO CON FINDINGS: KIDNEYS: Nonobstructing 6 millimeter calcifications present [...] BONES: Normal. No bony lesion or fracture. Also had renal US 05/23/25: RESULT: Right Kidney: -Renal length: 12.8 cm -Parenchyma: Normal parenchymal echogenicity. Normal parenchymal thickness. -Collecting system: No hydronephrosis. -Calculus: 8 mm and 4 mm mid pole calculi. -Lesion: None. Left Kidney: -Renal length: 11.7 cm -Parenchyma: Normal parenchymal echogenicity. Normal parenchymal thickness. -Collecting system: No hydronephrosis. -Calculus: Two 4 mm mid to lower pole calculi. -Lesion: None. Bladder: Normal sonographic appearance. Prevoid Bladder Volume: 108 cc Postvoid Bladder Volume: 0 cc Other: Hepatic steatosis. Patient has seen Urology before regarding kidney stones Saw Dr Og in 2014 2012 was time of her first kidney stone Kidney stones twice a year for the past 10-15 years Passes most on her own Does not get frequent UTIs, has not had one for 4-5 years Previous stone procedures: ESWL: 0 URS: 1, in 2018 PCNL: 0 MET: 20+ Family hx: + stones everyone -- both parents, brother, sister, grandparents.. - gout - prostate ca/ ca Hx thyroid cancer, dx'd 2019 S/p thyroidectomy, on levothyroxine Review of Systems Constitutional: Negative for fever. Genitourinary: Positive for flank pain. Negative for difficulty urinating, dysuria, frequency, hematuria and urgency. 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 No surgical correction done. The father of the baby's brother born with a hole in his heart. Surgical correction was done. 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HCC) Degenerative disc disease Disorders of sacrum 02/20/2013 Dysmenorrhea 04/11/2007 Exercise-induced asthma (HCC) 03/22/2014 Fetus conceived on control 03/31/2012 She [...] total thyroidectomy 07/31/2019 Sacroiliitis, not elsewhere classified 02/20/2013 SI (sacroiliac) joint dysfunction 11/06/2015 Spinal [...] persistent, in adult 03/03/[address] Cole Past Surgical History: PAST SURGICAL HISTORY Procedure Laterality Date ARTHROSCOPY [...] 07/2019 total for papilary thyroid cancer Social History: Social History Tobacco Use Smoking status: Never Smokeless tobacco: Never Substance Use Topics Alcohol use: No Comment: 2-3 x yearly Drug use: No Medications: Prior to Admission medications : Medication SUMAtriptan (IMITREX) 50 mg tablet, Sig Take 1 tablet (50 mg) by mouth as needed for migraine headache (see administration instructions). May repeat dose after 2 hours if needed. Maximum daily dose is 200 mg per day., Start Date 12/15/24, End Date , Taking? , Authorizing Provider Renard Almodovar APRN.DRAMATIC ARTS HISTORIAN Medication magnesium glycinate 100 mg magnesium capsule, Sig Take 2 capsules by mouth two times a day., Start Date 11/02/24, End Date , Taking? , Authorizing Provider Renard Almodovar APRN.DRAMATIC ARTS HISTORIAN Medication riboflavin, vitamin B2, 400 mg tab, Sig Take 1 tablet by mouth once daily., Start Date 11/02/24, End Date , Taking? , Authorizing Provider Renard Almodovar APRN.DRAMATIC ARTS HISTORIAN Medication hydroCHLOROthiazide 25 mg tablet, Sig Take 1 tablet by mouth once daily., Start Date 10/26/24, End Date , Taking? , Authorizing Provider Christine Dean PA-C Medication propranolol (INDERAL) 20 mg tablet, Sig Take 1 tablet by mouth once daily., Start Date 10/26/24, End Date , Taking? , Authorizing Provider Christine Dean PA-C Medication QUEtiapine (SEROQUEL) 50 mg tablet, Sig Take 1 tablet by mouth daily at bedtime. [facility], Start Date 04/25/24, End Date , Taking? , Authorizing Provider Nagi Red MD Medication cariprazine (VRAYLAR) 1.5 mg capsule, Sig Take 1 capsule by mouth once daily. [facility], Start Date 04/25/24, End Date , Taking? , Authorizing Provider Nagi Red MD Medication Cholecalciferol, Vitamin D3, 50 mcg (2,000 unit) cap, Sig Take 1 capsule by mouth once daily., Start Date 04/25/24, End Date , Taking? , Authorizing Provider Nagi Red MD Medication cyclobenzaprine (FLEXERIL) 5 mg tablet, Sig Take by mouth twice daily as needed., Start Date , End Date , Taking? , Authorizing Provider Holly, [facility] Medication albuterol HFA (VENTOLIN HFA) 90 mcg/actuation inhaler, Sig Inhale 2 Puffs as instructed every 6 hours as needed for wheezing/shortness of breath., Start Date 07/06/22, End Date , Taking? , Authorizing Provider Christine Dean PA-C Medication levothyroxine (SYNTHROID) 25 mcg tablet, Sig Take 1 tablet by mouth daily before breakfast. Take 225 mcg total of synthroid daily (so add this 25mcg tab to your daily 200mcg tab), Start Date 08/23/20, End Date , Taking? , Authorizing Provider Jackson Maloney MD Medication levothyroxine (SYNTHROID) 200 mcg tablet, Sig Take 1 tablet by mouth once daily., Start Date 05/17/20, End Date , Taking? , Authorizing Provider Morenita Allen MD Medication etonogestrel (NEXPLANON) subdermal implant 68 mg, Sig 68 mg by SUBDERMAL route one time only., Start Date , End Date , Taking? , Authorizing Provider Provider, [facility] ALLERGIES Allergen Reactions Adhesive Rash Morphine Sulfate Itching had vicodin at same time, but has taken vicodin in past without reaction Adderall [Dextroamp* Intolerance Heart racing, chest pain, diaphoretic, dizzy Problem List Reviewed: Yes Vitals: BP 159/98 Pulse 88 Ht 165.1 cm (5' 5) LMP 08/18/2024 (Approximate) BMI 32.45 kg/m Recent Labs: Creatinine Date Value Ref Range Status 10/26/2024 0.84 0.58 - 0.96 mg/dL Final No results found for: PSA Color (no units) Date Value 04/24/2024 Yellow 07/02/2012 Yellow Clarity (no units) Date Value 04/24/2024 Clear Glucose, Urine Date Value 04/24/2024 Negative 07/19/2017 neg mg/dL Bilirubin, Urine (no units) Date Value 04/24/2024 Negative 07/19/2017 neg Ketones, Urine (no units) Date Value 04/24/2024 Negative 07/19/2017 neg Specific Tad, Ur (no units) Date Value 04/24/2024 1.021 07/19/2017 1.005 Hemoglobin/Blood,Ur (no units) Date Value 04/24/2024 Negative 07/19/2017 neg pH, Urine (no units) Date Value 04/24/2024 6.5 07/19/2017 8.5 Protein, Urine Date Value 04/24/2024 Negative 07/19/2017 neg mg/dL Urobilinogen (no units) Date Value 04/24/2024 1.0 EU/dL 07/02/2012 0.2 Nitrites (no units) Date Value 04/24/2024 Negative 07/19/2017 neg Leukest (no units) Date Value 07/02/2012 Moderate Leuk Esterase (no units) Date Value 04/24/2024 Trace 24HR Urine Studies: No results for input(s): LUPH, LUCAL, LUCIT, LUOXA, LUURIC, LUVOL, LSCAO, LSCAP, LSURIC, LUCL, SALVADOR, FRANCHESKA, LUUREA, LUAM, LUMAG, LUPHOS, LUPCR, LUCREA, LUCRKBW, LUCAKBW, LUCACREA, LUCREACL, LWK, LUSUL in the last 74735 hours. Physical Exam Vitals and nursing note reviewed. Constitutional: General: She is not in acute distress. Appearance: Normal appearance. She is not ill-appearing or toxic-appearing. Comments: Patient in NAD, speaking in full sentences, and breathing is not labored HENT: Head: Normocephalic and atraumatic. Pulmonary: Effort: Pulmonary effort is normal. Skin: General: Skin is warm and dry. Coloration: Skin is not jaundiced or pale. Neurological: Mental Status: She is alert and oriented to person, place, and time. Assessment and Plan: 1. Kidney stones - ICD9: 592.0, ICD10: N20.0 (primary diagnosis) - UA DIP, URINE (POC) - UA DIP, URINE (POC) - BLADDER SCAN - KETOROLAC 10 MG TABLET - URINALYSIS, WITH MICROSCOPIC - BACTERIAL CULTURE, URINE 2. Right flank pain - ICD9: 789.09, ICD10: R10.9 - UA DIP, URINE (POC) - UA DIP, URINE (POC) - BLADDER SCAN - KETOROLAC 10 MG TABLET - URINALYSIS, WITH MICROSCOPIC - BACTERIAL CULTURE, URINE 3. Hematuria, unspecified type - ICD9: 599.70, ICD10: R31.9 - URINALYSIS, WITH MICROSCOPIC - BACTERIAL CULTURE, URINE Patient is seen as a new patient regarding kidney stones.She was recently found to have bilateral non-obstructing kidney stones with the largest being 6mm on the right (8mm on US). No hydronephrosis. Everyone in her family gets kidney stones, and patient has passed 20+ kidney stones in the past 10+ years. She was diagnosed with thyroid cancer in 2019. S/p thyroidectomy and taking levothyroxine. UA today with trace blood, protein, and leuks. Urine sent to lab for microscopic urinalysis and C&S. Patient would like to follow up with physician to discuss possible surgery for kidney stones. Sarah Miramontes APRN.DRAMATIC ARTS HISTORIAN Consultation requested by Nagi Red [address] [place], [place] [phone] for an opinion regarding Greta Andres patient and my final recommendations will be communicated back to the requesting physician by way of shared Medical record or letter via US mail. Recording using Vide[employer] software for draft documentation of the visit was discussed with the patient/authorized hotel services sales representative; all questions welcomed and answered. Patient/authorized hotel services sales representative agreed to proceed documented in this encounter [facility] 06-07-2025 Note HNO ID: [id number] Author: SARAH MIRAMONTES APRN.DRAMATIC ARTS HISTORIAN Service: ? Author Type: Nurse Practitioner Type: Progress Notes Filed: 06/07/2025 14:10 Note Text: [facility] [place] [facility] NEW PATIENT UROLOGY VISIT 06/07/2025 10:21 AM PATIENT NAME: Greta Andres DATE OF : 1990 TODAY'S DATE: 06/07/2025 Referring Provider: Nagi Red [address] [place] [id number] Referring Note Reviewed: Yes Chief Complaint: kidney stones, right flank pain History of Present Illness: Ms. Andres is a 35 year old female who presents to the office regarding kidney stones and right flank pain since February 2025. She went to [facility] ER on 03/18/25 Found to have bilateral non-obstructing kidney stones CT ABD PEL WO CON FINDINGS: KIDNEYS: Nonobstructing 6 millimeter calcifications present [...] BONES: Normal. No bony lesion or fracture. Also had renal US 05/23/25: RESULT: Right Kidney: -Renal length: 12.8 cm -Parenchyma: Normal parenchymal echogenicity. Normal parenchymal thickness. -Collecting system: No hydronephrosis. -Calculus: 8 mm and 4 mm mid pole calculi. -Lesion: None. Left Kidney: -Renal length: 11.7 cm -Parenchyma: Normal parenchymal echogenicity. Normal parenchymal thickness. -Collecting system: No hydronephrosis. -Calculus: Two 4 mm mid to lower pole calculi. -Lesion: None. Bladder: Normal sonographic appearance. Prevoid Bladder Volume: 108 cc Postvoid Bladder Volume: 0 cc Other: Hepatic steatosis. Patient has seen Urology before regarding kidney stones Saw Dr Og in 2014 2012 was time of her first kidney stone Kidney stones twice a year for the past 10-15 years Passes most on her own Does not get frequent UTIs, has not had one for 4-5 years Previous stone procedures: ESWL: 0 URS: 1, in 2018 PCNL: 0 MET: 20+ Family hx: + stones everyone -- both parents, brother, sister, grandparents.. - gout - prostate ca/ ca Hx thyroid cancer, dx'd 2019 S/p thyroidectomy, on levothyroxine Review of Systems Constitutional: Negative for fever. Genitourinary: Positive for flank pain. Negative for difficulty urinating, dysuria, frequency, hematuria and urgency. 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 No surgical correction done. The father of the baby's brother born with a hole in his heart. Surgical correction was done. 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HCC) Degenerative disc disease Disorders of sacrum 02/20/2013 Dysmenorrhea 04/11/2007 Exercise-induced asthma (HCC) 03/22/2014 Fetus conceived on control 03/31/2012 She [...] Migraine without aura and without status migrainosus, n (more content not included)... [facility] 05-24-2025 Telephone encounter Note Appt has already been scheduled with [facility] on 06/07/25. Phil Millan MA [facility] 05-24-2025 Miscellaneous Notes Appt has already been scheduled with [facility] on 06/07/25. Phil Millan MA Please assist patient in scheduling an appt with Urology as consulted. Phil Millan MA Order placed for urology consult. documented in this encounter [facility] 05-24-2025 Telephone encounter Note Please assist patient in scheduling an appt with Urology as consulted. Phil Millan MA [facility] 05-23-2025 Telephone encounter Note Order placed for urology consult. [facility] 05-21-2025 History of Present illness Narrative Radiology Service Progress Note PATIENT NAME: Greta Andres DATE OF SERVICE: May 21, 2025 TIME: 10:18 AM PATIENT IDENTITY VERIFICATION COMPLETED USING TWO (2) IDENTIFIERS: Name and Date of confirmed by patient verbally. FALL SCREENING: Has the patient had 2 falls in the last year or 1 fall with injury or currently using an Ambulatory Assistive Device (Walker, Cane, Wheelchair, Crutches, etc.)? No PATIENT GENDER DATA: Assigned female at . status: : No status: NO. PATIENT RELEVANT IMPLANT DATA REVIEWED: Not Applicable PATIENT PRESENTS WITH AN IMPLANTABLE OR ATTACHED PROFESSIONAL SECURITY OFFICER: No RADIOLOGY DEPARTMENT: Ultrasound PERIPHERAL IV DATA: Not applicable SIGNED BY: Mackenzie Heller RDMS May 21, 2025 10:18 AM documented in this encounter [facility] 05-21-2025 Note HNO ID: [id number] Author: MACKENZIE HELLER RDMS Service: ? Author Type: [employer] Director Type: Progress Notes Filed: 05/21/2025 10:18 Note Text: Radiology Service Progress Note PATIENT NAME: Greta Andres DATE OF SERVICE: May 21, 2025 TIME: 10:18 AM PATIENT IDENTITY VERIFICATION COMPLETED USING TWO (2) IDENTIFIERS: Name and Date of confirmed by patient verbally. FALL SCREENING: Has the patient had 2 falls in the last year or 1 fall with injury or currently using an Ambulatory Assistive Device (Walker, Cane, Wheelchair, Crutches, etc.)? No PATIENT GENDER DATA: Assigned female at . status: : No status: NO. PATIENT RELEVANT IMPLANT DATA REVIEWED: Not Applicable PATIENT PRESENTS WITH AN IMPLANTABLE OR ATTACHED PROFESSIONAL SECURITY OFFICER: No RADIOLOGY DEPARTMENT: Ultrasound PERIPHERAL IV DATA: Not applicable SIGNED BY: Mackenzie Heller RDMS May 21, 2025 10:18 AM [facility] 05-18-2025 Telephone encounter Note Pt returned call and given provider's message below with verbalized understanding. Pt reports she has her inhalers and has been using them. Pt reports she is trying to schedule the testing and will call again today to see if she can schedule. [facility] 05-18-2025 Miscellaneous Notes Pt returned call and given provider's message below with verbalized understanding. Pt reports she has her inhalers and has been using them. Pt reports she is trying to schedule the testing and will call again today to see if she can schedule. Called and left a voicemail for the Patient to call back and ask for a nurse to receive the providers message. Darline Roldan RN My assumption was that she has already been using her inhalers as needed and would continue to do so as was dicussed during her recent visit. She never mentioned at the appt she would need a new script for her rescue inhaler and it looks like the last one was sent in on 07/06/2022. Is she in need of a new script then? Until I have the breathing test results I won't know if other types of treatment will even be beneficial. Pt called and is notified of providers message and instructions. Pt states, that's all he recommends for my breathing problems, not to use my inhalers or anything?. I asked if she had set up appointment for breathing studies, and she said she had called in and they were scheduling out a month. 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 Pt was asking what provider would recommend she do for her breathing issues. Please call and advise. Darline Roldan RN Advise patient I want her to complete the breathing studies I ordered at her recent office visit. Pt notified of providers message and instructions. Pt verbalizes understanding. Pt was assisted in transfer to schedule US and cancel CT appointment. Pt states Dr Red had wanted to know if she has been having any breathing problems. Pt states she does have trouble breathing /shortness of breath. Questions what she can do for this. Advises that she uses her Albuterol inhaler multiple times per day. States her daughter plays ball and she gets out of breath just walking from the car to the ball field. Ok to send pt a msg via or can call pt. Pt uses [employer]. Ada Carson LPN Let patient know her insurance is refusing the CT. They require an US to be done first. This will most likely be non-diagnostic and then we can get the CT. US order placed and order for CT cancelled. documented in this encounter [facility] 05-18-2025 Telephone encounter Note Called and left a voicemail for the Patient to call back and ask for a nurse to receive the providers message. Darline Roldan RN [facility] 05-17-2025 Telephone encounter Note My assumption was that she has already been using her inhalers as needed and would continue to do so as was dicussed during her recent visit. She never mentioned at the appt she would need a new script for her rescue inhaler and it looks like the last one was sent in on 07/06/2022. Is she in need of a new script then? Until I have the breathing test results I won't know if other types of treatment will even be beneficial. [facility] 05-17-2025 Telephone encounter Note Pt called and is notified of providers message and instructions. Pt states, that's all he recommends for my breathing problems, not to use my inhalers or anything?. I asked if she had set up appointment for breathing studies, and she said she had called in and they were scheduling out a month. 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 Pt was asking what provider would recommend she do for her breathing issues. Please call and advise. Darline Roldan RN [facility] 05-17-2025 Telephone encounter Note Advise patient I want her to complete the breathing studies I ordered at her recent office visit. [facility] 05-17-2025 Telephone encounter Note Pt notified of providers message and instructions. Pt verbalizes understanding. Pt was assisted in transfer to schedule US and cancel CT appointment. Pt states Dr Red had wanted to know if she has been having any breathing problems. Pt states she does have trouble breathing /shortness of breath. Questions what she can do for this. Advises that she uses her Albuterol inhaler multiple times per day. States her daughter plays ball and she gets out of breath just walking from the car to the ball field. Ok to send pt a msg via or can call pt. Pt uses [employer]. Ada Carson LPN [facility] 05-17-2025 Telephone encounter Note Let patient know her insurance is refusing the CT. They require an US to be done first. This will most likely be non-diagnostic and then we can get the CT. US order placed and order for CT cancelled. [facility] 05-17-2025 Telephone encounter Note Pt was called and scheduled for 05/24/25 with RR at 9:40 am. Phil Millan MA [facility] 05-17-2025 Telephone encounter Note Pt called and scheduled for 2 week BP check on 05/24/25 at 9:40 am with RR. Pt requested this day due to Daughter having appt at this location around this time. Phil Millan MA [facility] 05-17-2025 Miscellaneous Notes Pt called and scheduled for 2 week BP check on 05/24/25 at 9:40 am with RR. Pt requested this day due to Daughter having appt at this location around this time. Phil Millan MA Pt has been sent a [employer] message notifying her that she needs a BP follow up from 05/08/25 with [facility]. Will wait pt response via [employer]. Will keep this encounter open until appt is made. Watch [employer] message to make sure viewed by pt. If not will call to schedule. Phil Millan MA Yes needs a f/u BP check in 2 weeks and a complete PE scheduled in jul 2025. Note from Dr Red Let patient know her UA was ok except for a large amount of protein. I have placed an order to get a 24 hr urine protein study. She also needs a BP check with AKIKO in 2 weeks. Patient has an appt on 05/14/2025. We could do her BP check then. She needs a complete PE set up in jul. Jace Wallis MA documented in this encounter [facility] 05-17-2025 Miscellaneous Notes Pt was called and scheduled for 05/24/25 with RR at 9:40 am. Phil Millan MA documented in this encounter [facility] 05-16-2025 Telephone encounter Note Pt has been sent a [employer] message notifying her that she needs a BP follow up from 05/08/25 with [facility]KO. Will wait pt response via [employer]. Will keep this encounter open until appt is made. Watch [employer] message to make sure viewed by pt. If not will call to schedule. Phil Millan MA [facility] 05-15-2025 Telephone encounter Note Yes needs a f/u BP check in 2 weeks and a complete PE scheduled in jul 2025. [facility] 05-15-2025 Note HNO ID: [id number] Author: PHIL MILLAN MA Service: ? Author Type: Tipple Greaser Type: Progress Notes Filed: 05/15/2025 09:32 Note Text: View External Imaging - MRCP Abdomen without contrast [ID [id number]] [facility] 05-15-2025 History of Present illness Narrative View External Imaging - MRCP Abdomen without contrast [ID [id number]] documented in this encounter [facility] 05-09-2025 Telephone encounter Note Note from Dr Red Let patient know her UA was ok except for a large amount of protein. I have placed an order to get a 24 hr urine protein study. She also needs a BP check with AKIKO in 2 weeks. Patient has an appt on 05/14/2025. We could do her BP check then. She needs a complete PE set up in jul. Jace Wallis MA [facility] 05-08-2025 Instructions Ngai Red MD - 05/08/2025 9:18 AM EDT We discussed your thyroid and papillary thyroid cancer: - Your TSH level remains high, currently at 34.7, which is an improvement from 89.1 in June but still above the target range of 0.1 to 0.5 for your condition. This increases the risk of cancer recurrence. - I recommend reaching out to your thyroid doctor to address your TSH levels and discuss potential adjustments to your thyroid medication to improve absorption, even with your gastroparesis. - I will send a message to your cancer doctor regarding your TSH levels for further evaluation. Your next appointment with your cancer doctor is on June 27. We discussed your gastroparesis and related symptoms: - Your ongoing abdominal pain, nausea, and vomiting are likely related to your gastroparesis, as delayed stomach emptying can stretch receptors and cause these symptoms. - I will place a referral to the Gastroenterology department at [facility] to connect you with a specialist in gastroparesis. - Continue using the scopolamine patch as prescribed. If your symptoms worsen or you experience severe vomiting episodes, please seek medical attention. We discussed your shortness of breath and lung health: - I will order a methacholine challenge test to evaluate your airway sensitivity. This test will likely be performed at [facility]. During the test, you will inhale a substance to assess for airway reactivity, and any reaction will be reversed immediately. - I will also order a CT scan of your chest to follow up on the infusions seen previously and to check for any other lung issues. We discussed your kidney and urinary symptoms: - I will order a CT flank study to re-evaluate your kidneys and ureters for any stones or abnormalities that could be causing your pain and nausea. - If the CT shows kidney stones, I will determine whether to refer you to a different urologist for further management. Next steps: - Complete the methacholine challenge test, CT chest scan, and CT flank study as scheduled. - Follow up with your cancer doctor on June 27 to discuss your TSH levels and overall care plan. - Await the referral to Gastroenterology at [facility] for further evaluation of your gastroparesis. - Once the CT flank study results are available, we will decide on the need for a urology referral. Please contact our office if you have any questions or if your symptoms worsen. documented in this encounter [facility] 05-08-2025 History of Present illness Narrative Chief Complaint Patient presents with: Nausea & Vomiting HPI Greta Andres is a 35 year old female who presents here today for Continued Stomach pain. Greta Andres is a 35-year-old female with a history of papillary thyroid cancer, gastroparesis, and recurrent Nausea and emesis, presenting for evaluation of persistent symptoms and management of underlying conditions. Greta reports persistent, severe emesis occurring around the clock, with episodes of emesis every 15-20 minutes approximately every 2-3 weeks. She describes the emesis as similar to food poisoning and notes that it can occur without preceding nausea. She has been to the ED multiple times for these episodes, where she receives IV fluids, Phenergan, and Zofran, which provide temporary relief. She denies any recent changes in medications and does not use marijuana. She has been using a scopolamine patch with minimal improvement in symptoms. She reports that certain foods, particularly meats and fatty foods, exacerbate her nausea, and she tries to avoid them. She denies any recent hematuria, dysuria, or changes in urinary frequency or urgency. Pt has been seen by Gastro and recnetly had a MRCP that showed bilateral small plural effusion. a recnet chest x-ray was negative. Greta has a history of papillary thyroid cancer and notes that her TSH levels were significantly elevated at 89.1 in October, with a recent improvement to 34.7. She reports that her offal baler did not increase her medication dosage due to her uncontrolled gastroparesis and difficulty keeping medication down. Instead, she was advised to take her medication at night. She has not had her TSH levels rechecked since the last adjustment. She is scheduled to see her oncologist on June 27. Greta also reports dyspnea, which worsens with heat and physical activity. She denies hemoptysis, but notes frequent coughing, which necessitates the use of her inhaler. She has a history of seasonal allergies. She underwent a breathing test last year and reports no significant changes in her symptoms since then. Greta has a history of kidney issues, including a blocked kidney in 2017 that required emergency surgery. She reports right-sided back pain that radiates to the front, describing it as a deep within pain. She was evaluated by a urologist, Dr. Gonzáles, who did not find any current issues. Her most recent kidney labs from January showed normal BUN, creatinine, and GFR levels. She also underwent an x-ray on April 09, which did not visualize any stones, and a CT scan on March 18. She reports episodes of dark brown urine but denies any recent hematuria. Greta has a history of cholecystectomy and reports that a previous MRCP showed stable mild right hepatic lobe biliary dilation and a question of a stricture at the distal right bile duct. She has not had a HIDA scan but also no longer has a gal bladder. She is willing to travel for further evaluation and treatment. Past medical history, appointments, medications, allergies reviewed. 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 No surgical correction done. The father of the baby's brother born with a hole in his heart. Surgical correction was done. 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HCC) Degenerative disc disease Disorders of sacrum 02/20/2013 Dysmenorrhea 04/11/2007 Exercise-induced asthma (HCC) 03/22/2014 Fetus conceived on control 03/31/2012 She [...] total thyroidectomy 07/31/2019 Sacroiliitis, not elsewhere classified 02/20/2013 SI (sacroiliac) joint dysfunction 11/06/2015 Spinal [...] on File Prior to Visit Medication Sig SUMAtriptan (IMITREX) 50 mg tablet [...] REVIEW OF SYSTEMS SEE HPI EXAM: BP 118/94 Pulse 70 Temp 36.7 C (98 F) (Right Tympanic) Resp 16 Wt 88.5 kg (195 lb) LMP 08/18/2024 (Approximate) BMI 32.45 kg/m BP 118/94 Pulse 70 Temp 36.7 C (98 F) (Right Tympanic) Resp 16 Wt 88.5 kg (195 lb) LMP 08/18/2024 (Approximate) BMI 32.45 kg/m Last 5 Encounter Wt Readings: Date: Wt: 05/08/2025 88.5 kg (195 lb) 03/02/2025 86.9 kg (191 lb 9.3 oz) 01/05/2025 87.8 kg (193 lb 9 oz) 12/15/2024 88.9 kg (196 lb) 11/02/2024 85.3 kg (188 lb) General Appearance: Well appearing, alert, in no acute distress, well-hydrated, well nourished. and Obese. Back:positive CVA tenderness on the right. Lungs: Lungs clear to auscultation. No wheezing, rhonchi, rales.. Heart: RRR without murmur, gallop, or rubs. No ectopy. Abdomen: Abdomen soft, non-distended. Mild RUQ tenderness without guarding or rebound tenderness. Bowel sounds normal. No masses, organomegaly. Health Maintenance List Depression Screening Never done Hepatitis C Screening Never done Cervical Cancer Screening due on 05/06/2020 DTaP,Tdap,Td Vaccine(7 - Td or Tdap) due on 03/19/2025 Covid-19 Vaccine( season) due on 09/21/2025 Annual PCP Team Chronic Disease Visit due on 05/08/2026 Hepatitis B Vaccine Completed Influenza Vaccine Completed HIV Screening Completed Data reviewed Latest Ref Rng 05/08/2025 GLUCOSE UA (POCT) Negative mg/dL Negative BILIRUBIN UA (POCT) Negative Negative KETONE UA (POCT) Negative mg/dL Negative SPECIFIC GRAVITY UA (POCT) 1.005 - 1.030 1.025 HEMOGLOBIN/BLOOD UA (POCT) Negative Negative PH UA (POCT) 4.5 - 8.0 6.5 PROTEIN UA (POCT) Negative mg/dL 100 ! UROBILINOGEN UA (POCT) Normal E.U./dL 0.2 NITRITE UA (POCT) Negative Negative LEUKOCYTES UA (POCT) Negative Negative COLOR UA (POCT) Yellow CLARITY UA (POCT) Clear Assessment and Plan 1. SOB (shortness of breath) (R06.02) Intermittent shortness of breath, exacerbated by heat. No hemoptysis or colored sputum production. No wheezing reported, but frequent coughing necessitates inhaler use. - Ordered methacholine challenge test to assess airway hyperreactivity. - Ordered CT chest to evaluate for pleural effusions and other pulmonary abnormalities. 2. Dark urine (R82.998) Intermittent episodes of dark urine, possibly due to dehydration. No recent hematuria, dysuria, or changes in urinary frequency or urgency. - Ordered urinalysis to evaluate for hematuria and other abnormalities. 3. Nausea (R11.0) Nausea and vomiting, unspecified vomiting type (R11.2) Gastroparesis (K31.84) Severe, persistent nausea and vomiting, likely secondary to gastroparesis. Current management with Scopolamine patch provides minimal relief. Frequent ER visits for IV fluids and antiemetics (Phenergan, Zofran) due to intractable vomiting. No recent changes in medication regimen. No use of marijuana, ruling out cannabinoid hyperemesis syndrome. - Referred to Gastroenterology at [facility] for specialized management of gastroparesis. - Discussed potential for gastric electrical stimulation as a treatment option. 4. RUQ pain (R10.11) Chronic right upper quadrant pain, possibly related to previous cholecystectomy and mild right hepatic lobe biliary dilation with a question of a stricture at the distal right bile duct noted on MRCP in 2014. - Monitor symptoms and follow up with Gastroenterology for further evaluation. 5. Right flank pain (R10.9) Intermittent right flank pain, radiating to the front. Previous CT scan on March 18 showed no kidney stones. Mild right hydronephrosis noted on MRCP in 2014. - Ordered CT flank study to reevaluate kidneys and ureters. - Will consider referral to a different urologist based on CT findings. 6. Elevated blood pressure reading without diagnosis of hypertension (R03.0) Recent blood pressure reading of 118/90 mmHg. - Monitor blood pressure readings. - f/u 2 weeks BP check 7. Proteinuria, unspecified type (R80.9) No current evidence of proteinuria. Recent kidney function tests from January show normal BUN, creatinine, and GFR of 100 mL/min/1.73 m . - check 24 hr urine protein level F/u 1-2 weeks BP check Nagi Red MD I spent a total of 40 minutes on the date of the service which included preparing to see the patient, [id number] patient care, completing clinical documentation, performing a medically appropriate examination, counseling and educating the patient/family/caregiver and ordering medications, tests, or procedures. Recording using Videum software for draft documentation of the visit was discussed with the patient/authorized hotel services sales representative; all questions welcomed and answered. Patient/authorized hotel services sales representative agreed to proceed documented in this encounter [facility] 05-08-2025 Note HNO ID: [id number] Author: NAGI RED MD Service: ? Author Type: Physician Type: Progress Notes Filed: 05/08/2025 19:39 Note Text: Chief Complaint Patient presents with: Nausea AND Vomiting HPI Greta Andres is a 35 year old female who presents here today for Continued Stomach pain. Greta Andres is a 35-year-old female with a history of papillary thyroid cancer, gastroparesis, and recurrent Nausea and emesis, presenting for evaluation of persistent symptoms and management of underlying conditions. Greta reports persistent, severe emesis occurring around the clock, with episodes of emesis every 15-20 minutes approximately every 2-3 weeks. She describes the emesis as similar to food poisoning and notes that it can occur without preceding nausea. She has been to the ED multiple times for these episodes, where she receives IV fluids, Phenergan, and Zofran, which provide temporary relief. She denies any recent changes in medications and does not use marijuana. She has been using a scopolamine patch with minimal improvement in symptoms. She reports that certain foods, particularly meats and fatty foods, exacerbate her nausea, and she tries to avoid them. She denies any recent hematuria, dysuria, or changes in urinary frequency or urgency. Pt has been seen by Gastro and recnetly had a MRCP that showed bilateral small plural effusion. a recnet chest x-ray was negative. Greta has a history of papillary thyroid cancer and notes that her TSH levels were significantly elevated at 89.1 in October, with a recent improvement to 34.7. She reports that her offal baler did not increase her medication dosage due to her uncontrolled gastroparesis and difficulty keeping medication down. Instead, she was advised to take her medication at night. She has not had her TSH levels rechecked since the last adjustment. She is scheduled to see her oncologist on June 27. Greta also reports dyspnea, which worsens with heat and physical activity. She denies hemoptysis, but notes frequent coughing, which necessitates the use of her inhaler. She has a history of seasonal allergies. She underwent a breathing test last year and reports no significant changes in her symptoms since then. Greta has a history of kidney issues, including a blocked kidney in 2017 that required emergency surgery. She reports right-sided back pain that radiates to the front, describing it as a deep within pain. She was evaluated by a urologist, Dr. Gonzáles, who did not find any current issues. Her most recent kidney labs from January showed normal BUN, creatinine, and GFR levels. She also underwent an x-ray on April 09, which did not visualize any stones, and a CT scan on March 18. She reports episodes of dark brown urine but denies any recent hematuria. Greta has a history of cholecystectomy and reports that a previous MRCP showed stable mild right hepatic lobe biliary dilation and a question of a stricture at the distal right bile duct. She has not had a HIDA scan but also no longer has a gal bladder. She is willing to travel for further evaluation and treatment. Past medical history, appointments, medications, allergies reviewed. 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 No surgical correction done. The father of the baby's brother born with a hole in his heart. Surgical correction was done. 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 [facility] 05-07-2025 Telephone encounter Note Patient has appointment for tomorrow. Jace Wallis MA [facility] 05-07-2025 Miscellaneous Notes Patient has appointment for tomorrow. Jace Wallis MA Pt active on mychart. Sent message to pt asking for a call back regarding result/recommendation below from Provider. Will watch for message to be reviewed. Review all results below. Phil Millan MA Called and left message on patients voicemail to return call to the office and ask to speak with a FM triage nurse. Phil Millan MA Let patient know she needs to reach out to her thyroid cancer doctor. Her TSH is 34.7 and in Dec was 89.1. with her thyroid cancer her TSH should be between 0.1-0.5 and every time a dosage is changes she should be getting repeat labs in 2 months to see if her levothyroxine dose adjusted. Based on this info she needs her levothyroxine increased. This lab abnormality may explain the small bilateral plural effusions she seen on her MRCP. Let patient know the chest x-ray showed no plural effusion. documented in this encounter [facility] 05-07-2025 Note HNO ID: [id number] Author: NAGI RED MD Service: ? Author Type: Physician Type: Progress Notes Filed: 05/07/2025 11:41 Note Text: This is a virtual encounter. It required patient-provider interaction for the medical decision making as documented below. The patient is identified by name and birthday. Patient location: The patient consented to this type of encounter since it was performed by phone / virtually due to the COVID-19 epidemic as an effort to protect patients and minimize exposure. I have communicated my name and active licensure. The patient's identity and physical location were verified at the time of this visit. Either the patient or their legal hotel services sales representative has been informed of the risks and benefits of -- and alternatives to -- treatment through a remote evaluation and consents to proceed with the evaluation remotely. Chief Complaint Patient presents with: bilater pleural effusions HPI Greta Andres is a 35 year old female who presents here today for Above Complaints.. Patient was signed in but had to leave due to another appt at Noon and provider was running behind so she had to sign off. Past medical history, appointments, medications, allergies reviewed. [...] 08/07/2013 Bipolar 1 disorder (HCC) 02/14/2018 Seeing [facility] Behavioral Medicine as of 01/2018 [...] spinal stenosis 04/25/2024 Lupus (systemic lupus erythematosus) ([facility]) Migraine without aura and without status [...] papilary thyroid cancer Family History FAMILY HISTORY (more content not included)... [facility] 05-07-2025 History of Present illness Narrative This is a virtual encounter. It required patient-provider interaction for the medical decision making as documented below. The patient is identified by name and birthday. Patient location: The patient consented to this type of encounter since it was performed by phone / virtually due to the COVID-19 epidemic as an effort to protect patients and minimize exposure. I have communicated my name and active licensure. The patient's identity and physical location were verified at the time of this visit. Either the patient or their legal hotel services sales representative has been informed of the risks and benefits of -- and alternatives to -- treatment through a remote evaluation and consents to proceed with the evaluation remotely. Chief Complaint Patient presents with: bilater pleural effusions HPI Greta Andres is a 35 year old female who presents here today for Above Complaints.. Patient was signed in but had to leave due to another appt at Noon and provider was running behind so she had to sign off. Past medical history, appointments, medications, allergies reviewed. [...] 08/07/2013 Bipolar 1 disorder (HCC) 02/14/2018 Seeing [facility] Behavioral Medicine as of 01/2018 [...] total thyroidectomy 07/31/2019 Sacroiliitis, not elsewhere classified ([facility]) 02/20/2013 SI (sacroiliac) joint dysfunction 11/06/2015 Spinal [...] on File Prior to Visit Medication Sig SUMAtriptan (IMITREX) 50 mg tablet [...] Symptoms REVIEW OF SYSTEMS SEE HPI EXAM: LMP 08/18/2024 (Approximate) Health Maintenance List Depression Screening Never done Hepatitis C Screening Never done Cervical Cancer Screening due on 05/06/2020 DTaP,Tdap,Td Vaccine(7 - Td or Tdap) due on 03/19/2025 Covid-19 Vaccine( season) due on 09/21/2025 Annual PCP Team Chronic Disease Visit due on 12/15/2025 Hepatitis B Vaccine Completed Influenza Vaccine Completed HIV Screening Completed Data reviewed Assessment and Plan Nagi Red MD Recording using Videum software for draft documentation of the visit was discussed with the patient/authorized hotel services sales representative; all questions welcomed and answered. Patient/authorized hotel services sales representative agreed to proceed documented in this encounter [facility] 05-04-2025 Telephone encounter Note Patient calling with request for message from Dr Red's office Patient denies any new or worsening symptoms of which a provider is not aware: Yes. Message given and pt conf to [facility] for scheduling (see other telephone encounter) [facility] 05-04-2025 Miscellaneous Notes Patient calling with request for message from Dr Red's office Patient denies any new or worsening symptoms of which a provider is not aware: Yes. Message given and pt conf to [facility] for scheduling (see other telephone encounter) documented in this encounter [facility] 05-04-2025 Telephone encounter Note Pt active on [employer]. Sent message to pt asking for a call back regarding result/recommendation below from Provider. Will watch for message to be reviewed. Review all results below. Phil Millan MA [facility] 05-03-2025 Telephone encounter Note Called and left message on patients voicemail to return call to the office and ask to speak with a triage nurse. Phil Millan MA [facility] 05-03-2025 Telephone encounter Note Let patient know she needs to reach out to her thyroid cancer doctor. Her TSH is 34.7 and in Dec was 89.1. with her thyroid cancer her TSH should be between 0.1-0.5 and every time a dosage is changes she should be getting repeat labs in 2 months to see if her levothyroxine dose adjusted. Based on this info she needs her levothyroxine increased. This lab abnormality may explain the small bilateral plural effusions she seen on her MRCP. [facility] 05-02-2025 Telephone encounter Note Let patient know the chest x-ray showed no plural effusion. [facility] 05-02-2025 History of Present illness Narrative Radiology Service Progress Note PATIENT NAME: Greta Andres DATE OF SERVICE: May 02, 2025 TIME: 3:11 PM PATIENT IDENTITY VERIFICATION COMPLETED USING TWO (2) IDENTIFIERS: Name and Date of confirmed by patient verbally. FALL SCREENING: Has the patient had 2 falls in the last year or 1 fall with injury or currently using an Ambulatory Assistive Device (Walker, Cane, Wheelchair, Crutches, etc.)? No PATIENT GENDER DATA: Assigned female at . status: : No status: NO. PATIENT RELEVANT IMPLANT DATA REVIEWED: Not Applicable PATIENT PRESENTS WITH AN IMPLANTABLE OR ATTACHED PROFESSIONAL SECURITY OFFICER: No RADIOLOGY DEPARTMENT: General X-ray: Exam(s) Completed: Chest X-Ray PERIPHERAL IV DATA: Not applicable SIGNED BY: Gema Rudolph May 02, 2025 3:11 PM documented in this encounter [facility] 05-02-2025 Note HNO ID: [id number] Author: LIZZETH BENJAMIN Tech Service: ? Author Type: Technologist Type: Progress Notes Filed: 05/02/2025 15:18 Note Text: Radiology Service Progress Note PATIENT NAME: Greta Andres DATE OF SERVICE: May 02, 2025 TIME: 3:11 PM PATIENT IDENTITY VERIFICATION COMPLETED USING TWO (2) IDENTIFIERS: Name and Date of confirmed by patient verbally. FALL SCREENING: Has the patient had 2 falls in the last year or 1 fall with injury or currently using an Ambulatory Assistive Device (Walker, Cane, Wheelchair, Crutches, etc.)? No PATIENT GENDER DATA: Assigned female at . status: : No status: NO. PATIENT RELEVANT IMPLANT DATA REVIEWED: Not Applicable PATIENT PRESENTS WITH AN IMPLANTABLE OR ATTACHED PROFESSIONAL SECURITY OFFICER: No RADIOLOGY DEPARTMENT: General X-ray: Exam(s) Completed: Chest X-Ray PERIPHERAL IV DATA: Not applicable SIGNED BY: Gema Rudolph May 02, 2025 3:11 PM [facility] 05-02-2025 Telephone encounter Note Patient notified and scheduled. She is coming in today to get xray and labs. Jace Wallis MA [facility] 05-02-2025 Miscellaneous Notes Patient notified and scheduled. She is coming in today to get xray and labs. Jace Wallis MA In the next 1-2 weeks. I placed an order for her to get a chest x-ray and thyroid las as soon as possible. I also need a copy of the last office note for Dr. Cole. Spoke with patient. She indicated that she has been SOB for quite some time. We sent her for a breathing test and that was normal. She has not notice leg swelling but leg cramps in both legs pretty intense during the day. No night time cramps. Patient indicated that her last TSH was in our office 10/2024. She is seeing her Cancer doctor in June 2025. Patient indicated she is not sure her thyroid medication is working as well as she is still vomiting. She has been back to the ER for vomiting and pain. Dr. Cole indicated they feel the pain is from the fluid outside her lungs and she may have intermittent gastroparesis. They have maxed out the medications they can give her and referred back to PCP. How soon do you want to see the patient. Jace Wallis MA Let patient know I was able to get the ERCP report and review them. Is she having shortness of breath and or leg edema? Does she know the last time her TSH was checked? Printed and given to PCP. Jace Wallis MA Can we see if we can pull the MRCP report off [facility] system? If not can we contact DR. Sheriff office and have them fx us a copy of it. Patient calls and states that Dr. Sheriff's office had a MRCP test done. Patient reports that it came back as Bilateral Pleural Effusion. Patient states that Dr. Cole's office wants PCP to advise on this. Testing was done on Wednesday. Results came back today. documented in this encounter [facility] 05-01-2025 Telephone encounter Note In the next 1-2 weeks. I placed an order for her to get a chest x-ray and thyroid las as soon as possible. I also need a copy of the last office note for Dr. Cole. [facility] 05-01-2025 Telephone encounter Note Spoke with patient. She indicated that she has been SOB for quite some time. We sent her for a breathing test and that was normal. She has not notice leg swelling but leg cramps in both legs pretty intense during the day. No night time cramps. Patient indicated that her last TSH was in our office 10/2024. She is seeing her Cancer doctor in June 2025. Patient indicated she is not sure her thyroid medication is working as well as she is still vomiting. She has been back to the ER for vomiting and pain. Dr. Cole indicated they feel the pain is from the fluid outside her lungs and she may have intermittent gastroparesis. They have maxed out the medications they can give her and referred back to PCP. How soon do you want to see the patient. Jace Wallis MA [facility] 04-30-2025 Telephone encounter Note Let patient know I was able to get the ERCP report and review them. Is she having shortness of breath and or leg edema? Does she know the last time her TSH was checked? [facility] 04-27-2025 Telephone encounter Note Printed and given to PCP. Jace Wallis MA [facility] 04-26-2025 Telephone encounter Note Can we see if we can pull the MRCP report off [facility] system? If not can we contact DR. Sheriff office and have them fx us a copy of it. [facility] 04-26-2025 Telephone encounter Note Patient calls and states that Dr. Sheriff's office had a MRCP test done. Patient reports that it came back as Bilateral Pleural Effusion. Patient states that Dr. Cole's office wants PCP to advise on this. Testing was done on Wednesday. Results came back today. [facility] 04-18-2025 Note HNO ID: [id number] Author: ADA CARSON LPN Service: ? Author Type: LICENSED NURSE Type: Progress Notes Filed: 04/18/2025 09:44 Note Text: Scan on 04/17/2025 10:15 PM by ProviderDami PA-C: Consultation - Emergency Medicine [facility] 04-18-2025 History of Present illness Narrative Scan on 04/17/2025 10:15 PM by ProviderDami PA-C: Consultation - Emergency Medicine documented in this encounter [facility] 04-17-2025 Telephone encounter Note Noted. [facility] 04-17-2025 Miscellaneous Notes Noted. Patient calling said she has been vomiting all night, advised to go back to Er for evaluation, need IV hydration. Patient said she needs to have the MRCP done, was told may have gall stone in the duct blocking things. Patient said she was going to go back to [facility] ER, cancelled her ER follow up appt scheduled for today with PCP. documented in this encounter [facility] 04-17-2025 Telephone encounter Note Patient calling said she has been vomiting all night, advised to go back to Er for evaluation, need IV hydration. Patient said she needs to have the MRCP done, was told may have gall stone in the duct blocking things. Patient said she was going to go back to [facility] ER, cancelled her ER follow up appt scheduled for today with PCP. [facility] 03-20-2025 Telephone encounter Note Contacted patient and she went to [facility] ER. She is scheduled to Urology Dr. Gonzáles. Patient also set up for ER follow up with Dr. Red. Jace Wallis MA [facility] 03-20-2025 Miscellaneous Notes Contacted patient and she went to [facility] ER. She is scheduled to Urology Dr. Gonzáles. Patient also set up for ER follow up with Dr. Red. Jace Wallis MA documented in this encounter [facility] 03-20-2025 Note HNO ID: [id number] Author: ADA CARSON LPN Service: ? Author Type: LICENSED NURSE Type: Progress Notes Filed: 03/20/2025 07:32 Note Text: Scan on 03/20/2025 7:19 AM by ProviderDami PA-C: Consultation - Emergency Medicine [facility] 03-20-2025 History of Present illness Narrative Scan on 03/20/2025 7:19 AM by Dami Barrera PA-C: Consultation - Emergency Medicine documented in this encounter [facility] 03-19-2025 Telephone encounter Note Called and spoke to the patient and relayed below. Patient verbalized understanding. [facility] 03-19-2025 Miscellaneous Notes Called and spoke to the patient and relayed below. Patient verbalized understanding. Hold the tramadol while taking the Girard. I am okay with this Patient receives Tramadol 50 mg tablet: take 1-2 pill PO every day for pain. Called and spoke with the patient and she states they prescribed her hydrocodone-acetaminophen 5-325 #8 pills. Routing to provider for review. Patient was seen at [facility] for kidney stones today. 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 Contreras. Call [phone]. Patient is requesting a return call as soon as possible, she is experiencing significant pain from stones. documented in this encounter [facility] 03-19-2025 Telephone encounter Note Hold the tramadol while taking the Girard. I am okay with this [facility] 03-19-2025 Telephone encounter Note Patient receives Tramadol 50 mg tablet: take 1-2 pill PO every day for pain. Called and spoke with the patient and she states they prescribed her hydrocodone-acetaminophen 5-325 #8 pills. Routing to provider for review. [facility] 03-19-2025 Telephone encounter Note Patient was seen at [facility] for kidney stones today. 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 Contreras. Call [phone]. Patient is requesting a return call as soon as possible, she is experiencing significant pain from stones. [facility] 03-02-2025 Telephone encounter Note Resent the rx [facility] 03-02-2025 Miscellaneous Notes Resent the rx Pharmacist [...] for current RX? Please advise jhoan call [facility] at [phone] with recommendations. Lisa Edmond documented in this encounter [facility] 03-02-2025 Note Addended by: CARLIE BROWNLEE on: 03/02/2025 09:59 AM Modules accepted: Orders [facility] 03-02-2025 Miscellaneous Notes Addended by: CARLIE BROWNLEE on: 03/02/2025 09:59 AM Modules accepted: Orders documented in this encounter [facility] 03-02-2025 Telephone encounter Note Pharmacist called with [...] for current RX? Please advise jhoan call [facility] at [phone] with recommendations. Lisa Edmond [facility] 03-02-2025 Note HNO ID: [id number] Author: CARLIE BROWNLEE APRN.MARGARITA Service: ? Author Type: Nurse Practitioner Type: Progress Notes Filed: 03/02/2025 09:34 Note Text: Elida Andres presents to [facility] for a follow up [...] on March 08 (more content not included)... [facility] 03-02-2025 History of Present illness Narrative Images from the original note were not included. Subjective Greta Andres presents to [facility] for a follow up [...] which included preparing to see the patient, [id number] patient care, completing clinical documentation, performing a [...] above and verbalized understanding. Carlie Brownlee APRN, DRAMATIC ARTS HISTORIAN March 02, 2025 documented in this encounter [facility] 02-19-2025 Telephone encounter Note Advised patient via telephone that her upcoming appointment with Dr. Contreras does not need to be postponed, as this appointment is for a new problem (cervical/thoracic rather than lumbar). Patient verbalized understanding and voiced no additional questions/concerns. Patient to see Dr. Contreras as scheduled. [facility] 02-19-2025 Miscellaneous Notes Advised patient via telephone [...] completes physical therapy. Please call patient at [phone]. documented in this encounter [facility] 02-19-2025 Telephone encounter Note Patient left message on nurse 02/19/25 at 11:37 asking if she should postpone her appointment with Dr. Contreras on 02/26/25 until after she completes physical therapy. Please call patient at [phone]. [facility] 02-16-2025 Note HNO ID: [id number] Author: JACE WALLIS MA Service: ? Author Type: Tipple Greaser Type: Progress Notes Filed: 02/16/2025 16:03 Note Text: Scan on 02/12/2025 9:28 PM by ProviderDami PA-C: GI - gastric emptying study Jace Wallis MA [facility] 02-16-2025 History of Present illness Narrative Scan on 02/12/2025 9:28 PM by Dami Barrera PA-C: GI - gastric emptying study Jace Wallis MA documented in this encounter [facility] 02-08-2025 Note Addended by: Kate GODWIN on: 02/08/2025 03:08 PM Modules accepted: Orders [facility] 02-08-2025 Miscellaneous Notes Addended by: NAOMI GODWIN [...] MRI order placed 05/16/2024. PT: Not completed [employer] message sent. PT order pended for provider review. Routing to provider. documented in this encounter [facility] 02-08-2025 Telephone encounter Note Procedure: Lumbar MRI [...] MRI order placed 05/16/2024. PT: Not completed PAIEON[employer] message sent. PT order pended for provider review. Routing to provider. [facility] 02-07-2025 Note HNO ID: [id number] Author: JACE WALLIS MA Service: ? Author Type: Tipple Greaser Type: Progress Notes Filed: 02/07/2025 17:19 Note Text: Scan on 02/02/2025 1:13 PM by Dami Barrera PA-C: Miscellaneous Lab Scan on 02/02/2025 2:41 PM by Dami Barrera PA-C: Miscellaneous Lab Scan on 02/03/2025 7:48 PM by Dami Barrera PA-C: Miscellaneous Lab Scan on 02/05/2025 5:37 PM by Dami Barrera PA-C: Miscellaneous Lab Scan on 02/06/2025 8:10 AM by Dami Barrera PA-C: Miscellaneous Lab Jace Wallis MA [facility] 02-07-2025 History of Present illness Narrative Scan on 02/02/2025 1:13 PM by Dami Barrera PA-C: Miscellaneous Lab Scan on 02/02/2025 2:41 PM by Dami Barrera PA-C: Miscellaneous Lab Scan on 02/03/2025 7:48 PM by Dami Barrera PA-C: Miscellaneous Lab Scan on 02/05/2025 5:37 PM by Dami Barrera PA-C: Miscellaneous Lab Scan on 02/06/2025 8:10 AM by Dami Barrera PA-C: Miscellaneous Lab Jace Wallis MA documented in this encounter [facility] 01-29-2025 Note HNO ID: [id number] Author: ADA CARSON LPN Service: ? Author Type: LICENSED NURSE Type: Progress Notes Filed: 01/29/2025 07:21 Note Text: Scan on 01/26/2025 2:38 PM by ProviderDami PA-C: Hematology Scan on 01/26/2025 6:12 PM by Dami Barrera PA-C: Chemistry [facility] 01-29-2025 History of Present illness Narrative Scan on 01/26/2025 2:38 PM by Dami Barrera PA-C: Hematology Scan on 01/26/2025 6:12 PM by Dami Barrera PA-C: Chemistry documented in this encounter [facility] 01-05-2025 Note HNO ID: [id number] Author: TOMAS ALEXIS APRN.DRAMATIC ARTS HISTORIAN Service: ? Author Type: Nurse Practitioner Type: Progress Notes Filed: 01/05/2025 08:42 Note Text: This note was created using [employer]. Subjective Greta Andres is a 34 year [...] to start antibiotics. She will otherwise use qsws-tnk-fmqhugu treatments as necessary for symptomatic relief. - AMOXICILLIN 875 MG-POTASSIUM CLAVULANATE 125 MG TABLET Tomas Alexis APRN.CNP [facility] 01-05-2025 History of Present illness Narrative This note was created using [employer]. Subjective Greta Andres is a 34 year [...] to start antibiotics. She will otherwise use lrtr-uti-lcmeweo treatments as necessary for symptomatic relief. - AMOXICILLIN 875 MG-POTASSIUM CLAVULANATE 125 MG TABLET Tomas Alexis APRN.MARGARITA documented in this encounter [facility] 12-15-2024 Note HNO ID: [id number] Author: RENARD ALMODOVAR APRN.CNP Service: ? Author Type: Nurse Practitioner Type: [...] 08/07/2013 Bipolar 1 disorder (HCC) 02/14/2018 Seeing [facility] Behavioral Medicine as of 01/2018 [...] classified, lower leg 08/20/2008 Papillary thyroid carcinoma ([facility]) 07/21/2019 PMH - PAST MEDICAL HISTORY OF r thumb broken Post-surgical hypothyroidism 08/25/2019 Primary thyroid papillary carcinoma ([facility]) 07/21/2019 PTSD (post-traumatic stress disorder) 02/14/2018 PTSD (post-traumatic stress disorder) S/P total thyroidectomy 07/31/2019 Sacroiliitis, not elsewhere classified ([facility]) 02/20/2013 SI (sacroiliac) joint dysfunction 11/06/2015 Spinal [...] diaphoretic, dizzy Curr (more content not included)... [facility] 12-15-2024 History of Present illness Narrative Chief [...] 08/07/2013 Bipolar 1 disorder (HCC) 02/14/2018 Seeing [facility] Behavioral Medicine as of 01/2018 [...] total thyroidectomy 07/31/2019 Sacroiliitis, not elsewhere classified ([facility]) 02/20/2013 SI (sacroiliac) joint dysfunction 11/06/2015 Spinal [...] capsules by mouth two times a day. Ctrur-1-CWW-EPA-Fish Oil (FISH OIL) 1,000 (120-180) mg cap [...] - SUMATRIPTAN 50 MG TABLET Renard Almodovar APRN.DRAMATIC ARTS HISTORIAN documented in this encounter [facility] 12-14-2024 History of Present illness Narrative VIRTUAL VISIT PROGRESS NOTE This is a virtual visit using [employer] Zoom Video Visit. It required patient-provider interaction for the medical decision making as documented below. I have communicated my name and active licensure. The patient's identity and physical location were verified at the time of this visit. Either the patient or their legal hotel services sales representative has been informed of the risks [...] 08/07/2013 Bipolar 1 disorder (HCC) 02/14/2018 Seeing [facility] Behavioral Medicine as of 01/2018 [...] capsules by mouth two times a day. Vkitr-7-QYR-EPA-Fish Oil (FISH OIL) 1,000 (120-180) mg cap [...] her pain as constant fire that is 05/01 She will be seeing Dr. Contreras for [...] which included preparing to see the patient, [id number]-az-[id number] patient care, completing clinical documentation, and ordering medications, tests, or procedures Carlie Brownlee APRN.CNP documented in this encounter [facility] 12-14-2024 Note HNO ID: [id number] Author: CARLIE BROWNLEE APRN.CNP Service: ? Author Type: Nurse Practitioner Type: Progress Notes Filed: 12/14/2024 18:02 Note Text: VIRTUAL VISIT PROGRESS NOTE This is a virtual visit using [employer] Zoom Video Visit. It required patient-provider interaction for the medical decision making as documented below. I have communicated my name and active licensure. The patient's identity and physical location were verified at the time of this visit. Either the patient or their legal hotel services sales representative has been informed of the risks [...] 08/07/2013 Bipolar 1 disorder (HCC) 02/14/2018 Seeing [facility] Behavioral Medicine as of 01/2018 [...] was . Fibromyalgia Gastroparesis 03/25/[address] Cloe GERD (gastroesophageal reflux disease) 03/22/2014 HALLUX VALGUS 01/23/2009 Hypertension, essential 07/06/2022 Irregular menstrual cycle 04/11/2007 Lactose intolerance 03/31/2012 03/31/2012Patient is lactose intolerant. [facility] handout on Increasing Calcium in Your Diet During given to the patient. Lumbago 07/27/[address] Contreras Lumbar degenerative disc disease 07/27/2012 Lumbar spinal stenosis 04/25/2024 Lupus (systemic lupus erythematosus) ([facility]) Migraine without aura and without status [...] No Current Outpatien (more content not included)... 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 Stephanie Dai RN Please see pt message and advise. Phil Millan MA documented in this encounter [facility] 11-02-2024 Telephone encounter Note Please see pt message and advise. Phil Millan MA [facility] 11-02-2024 Note HNO ID: [id number] Author: RENARD ALMODOVAR APRN.DRAMATIC ARTS HISTORIAN Service: ? Author Type: Nurse Practitioner Type: [...] 08/07/2013 Bipolar 1 disorder (HCC) 02/14/2018 Seeing [facility] Behavioral Medicine as of 01/2018 [...] total thyroidectomy 07/31/2019 Sacroiliitis, not elsewhere classified ([facility]) 02/20/2013 SI (sacroiliac) joint dysfunction 11/06/2015 Spinal [...] 50 mg t (more content not included)... [facility] 11-02-2024 History of Present illness Narrative Chief [...] 08/07/2013 Bipolar 1 disorder (HCC) 02/14/2018 Seeing [facility] Behavioral Medicine as of 01/2018 [...] spinal stenosis 04/25/2024 Lupus (systemic lupus erythematosus) ([facility]) Migraine without aura and without status migrainosus, not intractable 05/20/2017 Multiple thyroid nodules 07/26/2019 Neoplasm of uncertain behavior of skin of back Obesity, Class I, BMI 30-34.9 03/03/2023 Other and unspecified ovarian cyst Ovarian cyst Other joint derangement, not elsewhere classified, lower leg 08/20/2008 Papillary thyroid carcinoma ([facility]) 07/21/2019 PMH - PAST MEDICAL HISTORY OF r thumb broken Post-surgical hypothyroidism 08/25/2019 Primary thyroid papillary carcinoma ([facility]) 07/21/2019 PTSD (post-traumatic stress disorder) 02/14/2018 PTSD (post-traumatic stress disorder) S/P total thyroidectomy 07/31/2019 Sacroiliitis, not elsewhere classified ([facility]) 02/20/2013 SI (sacroiliac) joint dysfunction 11/06/2015 Spinal [...] 100 MG ( GLYCINATE) CAPSULE - OMEGA 1-OTR-IFB-FISH OIL 1,000 MG (120 MG-180 MG) CAPSULE - RIBOFLAVIN (VITAMIN B2) 400 MG TABLET Renard Almodovar APRN.DRAMATIC ARTS HISTORIAN documented in this encounter [facility] 10-27-2024 Telephone encounter Note Pt notified of results and instructions. Pt verbalizes understanding. Pt confirms she still sees Dr Rivera. Copy of lab results faxed to his office at [phone]. Ada Carson LPN [facility] 10-27-2024 Miscellaneous Notes Pt notified of results and instructions. Pt verbalizes understanding. Pt confirms she still sees Dr Rivera. Copy of lab results faxed to his office at [phone]. Ada Carson LPN Let patient know that her TSH is 89. I want her to reach out to her offal baler in regards to the lab results. We can fax the labs to them. Please confirm that she still see Dr. Caitlyn Rivera at [facility]. Her one inflammatory marker is elevated but otherwise labs are normal. Christine Dean PA-C documented in this encounter [facility] 10-27-2024 Telephone encounter Note Let patient know that her TSH is 89. I want her to reach out to her offal baler in regards to the lab results. We can fax the labs to them. Please confirm that she still see Dr. Caitlyn Rivera at [facility]. Her one inflammatory marker is elevated but otherwise labs are normal. Christine Dean PA-C [facility] 10-26-2024 Note HNO ID: [id number] Author: CHRISTINE DEAN PA-C Service: ? Author Type: Physician Health Inspector Type: Progress Notes Filed: 10/26/2024 08:20 Note Text: Chief Complaint Patient presents with: ER F/U: migraines HPI Greta Andres is a 34 year old female who presents here today for Above Complaints.. Patient reports migraines for the past 2 weeks. Has been all day. Very little improvement with treatments. Was seen in [facility], and [facility]. Toradol injection at [facility] did give temporary relief. Otherwise nothing has [...] do her job. 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 With head movement, kneeling to [...] 08/07/2013 Bipolar 1 disorder (HCC) 02/14/2018 Seeing [facility] Behavioral Medicine as of 01/2018 [...] Problem Relation Ag (more content not included)... [facility] 10-26-2024 History of Present illness Narrative Chief Complaint Patient presents with: ER F/U: migraines HPI Greta Andres is a 34 year old female who presents here today for Above Complaints.. Patient reports migraines for the past 2 weeks. Has been all day. Very little improvement with treatments. Was seen in [facility], [facility], and the ER. Toradol injection at [facility] did give temporary relief. Otherwise nothing has [...] do her job. 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 Author Type: Tipple Greaser Type: Progress Notes Filed: 10/24/2024 16:00 Note Text: Scan on 10/21/2024 2:21 PM by ProviderDami PA-C: Consultation - Emergency Medicine Jace Wallis MA Patient is scheduled to discuss Migraines. Jace Wallis MA [facility] 10-24-2024 History of Present illness Narrative Scan on 10/21/2024 2:21 PM by Dami Barrera PA-C: Consultation - Emergency Medicine Jace Wallis MA Patient is scheduled to discuss Migraines. Jace Wallis MA documented in this encounter [facility] 10-24-2024 Telephone encounter Note Called and spoke [...] and will discuss with Christine as well. [facility] 10-24-2024 Miscellaneous Notes Called and spoke with [...] fill out FMLA for minor illnesses and [facility] HR should know this. It's [...] Pt calling in as she works at [employer] and had to call off of work last week due to a bad migraine and viral gastroenteritis. Pt started with the headache on Wednesday the and came in to [facility] on Wed evening the . Received Toradol and was prescribed [...] how to proceed. documented in this encounter [facility] 10-23-2024 Telephone encounter Note Let patient know we do not fill out FMLA for minor illnesses and [facility] HR should know this. It's [...] lesson the frequency with a daily med. [facility] 10-23-2024 Telephone encounter Note Pt calling in as she works at [employer] and had to call off of work last week due to a bad migraine and viral gastroenteritis. Pt started with the headache on Wednesday the and came in to [facility] on Wed evening the . Received Toradol and was prescribed [...] Pt has her yearly physical scheduled for the with Christine Dean. Is provider willing to fill out the paperwork? Pt will need a call back to let her know how to proceed. [facility] 10-18-2024 Instructions Bobby Paiz, KIMBERLEY.MARGARITA - 10/18/2024 5:47 PM EST ASSESSMENT/PLAN: 1. [...] analgesia. - Discussed expected course of illness Bobby Paiz APRN.DRAMATIC ARTS HISTORIAN documented in this encounter [facility] 10-18-2024 Note HNO ID: [id number] Author: BOBBY PAIZ APRN.DRAMATIC ARTS HISTORIAN Service: ? Author Type: Nurse Practitioner Type: Progress Notes Filed: 10/18/2024 20:01 Note Text: Subjective Headache Pertinent negatives include no fever. Greta Andres is a 34 year old female who presents with headache and nausea for the past 2 days. She has been taking phenergan for nausea and Maxalt and Excedrin for the headache. Rates pain 10. She denies fever or associated URI symptoms. [...] 08/07/2013 Bipolar 1 disorder (HCC) 02/14/2018 Seeing [facility] Behavioral Medicine as of 01/2018 [...] spinal stenosis 04/25/2024 Lupus (systemic lupus erythematosus) ([facility]) Migraine without aura and without status migrainosus, not intractable 05/20/2017 Multiple thyroid nodules 07/26/2019 Neoplasm of uncertain behavior of skin of back Obesity, Class I, BMI 30-34.9 03/03/2023 Other and unspecified ovarian cyst Ovarian cyst Other joint derangement, not elsewhere classified, lower leg 08/20/2008 Papillary thyroid carcinoma ([facility]) 07/21/2019 PMH - PAST MEDICAL HISTORY OF r thumb broken Post-surgical hypothyroidism 08/25/2019 Primary thyroid papillary carcinoma ([facility]) 07/21/2019 PTSD (post-traumatic stress disorder) 02/14/2018 PTSD (post-traumatic stress disorder) S/P total thyroidectomy 07/31/2019 Sacroiliitis, not elsewhere classified ([facility]) 02/20/2013 SI (sacroiliac) joint dysfunction 11/06/2015 Spinal [...] tablet by mouth (more content not included)... [facility] 10-18-2024 History of Present illness Narrative Subjective [...] generalized Back pain 08/07/2013 Bipolar 1 disorder ([facility]) 02/14/2018 Seeing [facility] Behavioral Medicine as of 01/2018 Bipolar 1 disorder ([facility]) Chronic fatigue disorder 03/19/2015 Congenital heart [...] spinal stenosis 04/25/2024 Lupus (systemic lupus erythematosus) ([facility]) Migraine without aura and without status migrainosus, not intractable 05/20/2017 Multiple thyroid nodules 07/26/2019 Neoplasm of uncertain behavior of skin of back Obesity, Class I, BMI 30-34.9 03/03/2023 Other and unspecified ovarian cyst Ovarian cyst Other joint derangement, not elsewhere classified, lower leg 08/20/2008 Papillary thyroid carcinoma ([facility]) 07/21/2019 PMH - PAST MEDICAL HISTORY OF r thumb broken Post-surgical hypothyroidism 08/25/2019 Primary thyroid papillary carcinoma ([facility]) 07/21/2019 PTSD (post-traumatic stress disorder) 02/14/2018 PTSD (post-traumatic stress disorder) S/P total thyroidectomy 07/31/2019 Sacroiliitis, not elsewhere classified ([facility]) 02/20/2013 SI (sacroiliac) joint dysfunction 11/06/2015 Spinal [...] analgesia. - Discussed expected course of illness Bobby Paiz APRN.DRAMATIC ARTS HISTORIAN documented in this encounter [facility] 10-17-2024 Telephone encounter Note In order to get an off work note we have to see the patient to have documentation in the chart she was seen and advised to stay home. If not with Caesar King I know Lisa Martinez has a lot of openings. [facility] 10-17-2024 Miscellaneous Notes In order to get an off work note we have to see the patient to have documentation in the chart she was seen and advised to stay home. If not with Caesar King I know Lisa Martinez has a lot of openings. Dr. Red patient has history of migraines. Do you still want patient to come in for a visit? Jace Wallis MA documented in this encounter [facility] 10-17-[address] Red patient has history of migraines. Do you still want patient to come in for a visit? Jace Wallis MA [facility] 10-01-2024 Telephone encounter Note Pt was notified of the results. Pt verbalized understanding. Krishna Villanueva MA [facility] 10-01-2024 Miscellaneous Notes Pt was notified of the results. Pt verbalized understanding. Krishna Villanueva MA Please inform patient that her urine culture was negative. May discontinue antibiotics. Follow-up with PCP or urology if symptoms persist. Recommended repeat urinalysis due to blood Nagi Ku APRN.CNP documented in this encounter [facility] 10-01-2024 Telephone encounter Note Please inform patient that her urine culture was negative. May discontinue antibiotics. Follow-up with PCP or urology if symptoms persist. Recommended repeat urinalysis due to blood Nagi Ku APRN.MARGARITA [facility] Work Phone: 09-29-2024 Note HNO ID: [id number] Author: KAREN JONES APRN.MARGARITA Service: ? Author Type: Nurse Practitioner Type: Progress Notes Filed: 09/29/2024 16:53 Note Text: This note was created using [employer]. Elida Andres is a 34 year old female. 34 year old female with PMH HTN, asthma, migraine and chronic fatigue presents for complaitns. Acute onset one week ago +urgency +dysuria + back pain +blood noted in urine Denies N/V/D (althougth states she recently was with stomach bug) Denies cough Denies SOB or dyspnea Denies abdominal pain Seen September 01 for similar @ [facility] Diagnosed with UTI. Placed on Keflex, completed. 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 No steel division supervisor was used. Hematuria This is a new [...] 08/07/2013 Bipolar 1 disorder (HCC) 02/14/2018 Seeing [facility] Behavioral Medicine as of 01/2018 [...] classified, lower leg 08/20/2008 Papillary thyroid carcinoma ([facility] [facility]) 07/21/2019 PMH - PAST MEDICAL HISTORY OF r thumb broken Post-surgical hypothyroidism 08/25/2019 Primary thyroid papillary carcinoma ([facility]) 07/21/2019 PTSD (post-traumatic stress disorder) 02/14/2018 PTSD (post-traumatic stress disorder) S/P total thyroidectomy 07/31/2019 Sacroiliitis, not elsewhere classified ([facility]) 02/20/2013 SI (sacroiliac) joint dysfunction 11/06/2015 Spinal [...] SPX Right COLONOSC (more content not included)... [facility] 09-29-2024 History of Present illness Narrative This note was created using MeSixtyriter. Subjective Greta Andres is a 34 year old female. 34 year old female with PMH HTN, asthma, migraine and chronic fatigue presents for complaitns. Acute onset one week ago +urgency +dysuria + back pain +blood noted in urine Denies N/V/D (althougth states she recently was with stomach bug) Denies cough Denies SOB or dyspnea Denies abdominal pain Seen September 01 for similar @ [facility] Diagnosed with UTI. Placed on Keflex, completed. CT scan revealed renal calculi [place] better after completing ATB Denies following up She works at [employer] at [employer] The history is provided by the patient. No steel division supervisor was used. Hematuria This is a new [...] 08/07/2013 Bipolar 1 disorder (HCC) 02/14/2018 Seeing [facility] Behavioral Medicine as of 01/2018 [...] spinal stenosis 04/25/2024 Lupus (systemic lupus erythematosus) ([facility]) Migraine without aura and without status [...] Post-surgical hypothyroidism 08/25/2019 Primary thyroid papillary carcinoma ([facility]) 07/21/2019 PTSD (post-traumatic stress disorder) 02/14/2018 PTSD (post-traumatic stress disorder) S/P total thyroidectomy 07/31/2019 Sacroiliitis, not elsewhere classified ([facility]) 02/20/2013 SI (sacroiliac) joint dysfunction 11/06/2015 Spinal [...] URINE (POC) - URINE CULTURE Karen Jones APRN.MARGARITA documented in this encounter [facility] 09-26-2024 Telephone encounter Note Order form completed by Carlie Brownlee CNP: Multi Action 2 Formula: Baclofen 5%, Cyclobenzaprine HCI 2%, Diclofenac 3%, Gabapentin 10%, Lidocaine HCl 5% Topical Cream Sig: Apply 1-2 grams every 6-8 hours as needed for pain. Refills: 6 Compound Quantity: 180 gm Order form has been faxed to [employer] [facility] at [phone] with confirmation received. [facility] 09-26-2024 Miscellaneous Notes Order form completed by Carlie Brownlee CNP: Multi Action 2 Formula: Baclofen 5%, Cyclobenzaprine HCI 2%, Diclofenac 3%, Gabapentin 10%, Lidocaine HCl 5% Topical Cream Sig: Apply 1-2 grams every 6-8 hours as needed for pain. Refills: 6 Compound Quantity: 180 gm Order form has been faxed to [employer] [facility] at [phone] with confirmation received. documented in this encounter [facility] 09-21-2024 Note HNO ID: [id number] Author: CARLIE BROWNLEE APRN.MARGARITA Service: ? Author Type: Nurse Practitioner Type: Progress Notes Filed: 09/21/2024 12:35 Note Text: VIRTUAL VISIT PROGRESS NOTE This is a virtual visit using [employer] Zoom Video Visit. It required patient-provider interaction for the medical decision making as documented below. I have communicated my name and active licensure. The patient's identity and physical location were verified at the time of this visit. Either the patient or their legal hotel services sales representative has been informed of the risks [...] 08/07/2013 Bipolar 1 disorder (HCC) 02/14/2018 Seeing [facility] Behavioral Medicine as of 01/2018 Bipolar 1 disorder ([facility]) Chronic fatigue disorder 03/19/2015 Congenital heart [...] spinal stenosis 04/25/2024 Lupus (systemic lupus erythematosus) ([facility]) Migraine without aura and without status [...] total thyroidectomy 07/31/2019 Sacroiliitis, not elsewhere classified ([facility]) 02/20/2013 SI (sacroiliac) joint dysfunction 11/06/2015 Spinal [...] No Current Outpatien (more content not included)... [facility] 09-21-2024 History of Present illness Narrative VIRTUAL VISIT PROGRESS NOTE This is a virtual visit using Broadersheetom Video Visit. It required patient-provider interaction for the medical decision making as documented below. I have communicated my name and active licensure. The patient's identity and physical location were verified at the time of this visit. Either the patient or their legal hotel services sales representative has been informed of the risks [...] generalized Back pain 08/07/2013 Bipolar 1 disorder ([facility]) 02/14/2018 Seeing [facility] Behavioral Medicine as of 01/2018 Bipolar 1 disorder ([facility]) Chronic fatigue disorder 03/19/2015 Congenital heart [...] spinal stenosis 04/25/2024 Lupus (systemic lupus erythematosus) ([facility]) Migraine without aura and without status migrainosus, not intractable 05/20/2017 Multiple thyroid nodules 07/26/2019 Neoplasm of uncertain behavior of skin of back Obesity, Class I, BMI 30-34.9 03/03/2023 Other and unspecified ovarian cyst Ovarian cyst Other joint derangement, not elsewhere classified, lower leg 08/20/2008 Papillary thyroid carcinoma ([facility]) 07/21/2019 PMH - PAST MEDICAL HISTORY OF r thumb broken Post-surgical hypothyroidism 08/25/2019 Primary thyroid papillary carcinoma ([facility]) 07/21/2019 PTSD (post-traumatic stress disorder) 02/14/2018 PTSD (post-traumatic stress disorder) S/P total thyroidectomy 07/31/2019 Sacroiliitis, not elsewhere classified ([facility]) 02/20/2013 SI (sacroiliac) joint dysfunction 11/06/2015 Spinal [...] which included preparing to see the patient, [id number] patient care, completing clinical documentation, performing a medically appropriate examination, and ordering medications, tests, or procedures Carlie Brownlee APRN.MARGARITA documented in this encounter [facility] 09-21-2024 Note HNO ID: [id number] Author: RENARD ALMODOVAR APRN.MARGARITA Service: ? Author [...] 08/07/2013 Bipolar 1 disorder (HCC) 02/14/2018 Seeing [facility] Behavioral Medicine as of 01/2018 [...] total thyroidectomy 07/31/2019 Sacroiliitis, not elsewhere classified ([facility]) 02/20/2013 SI (sacroiliac) joint dysfunction 11/06/2015 Spinal [...] Take 1 tablet (more content not included)... [facility] 09-21-2024 History of Present illness Narrative Chief [...] 08/07/2013 Bipolar 1 disorder (HCC) 02/14/2018 Seeing [facility] Behavioral Medicine as of 01/2018 [...] total thyroidectomy 07/31/2019 Sacroiliitis, not elsewhere classified ([facility]) 02/20/2013 SI (sacroiliac) joint dysfunction 11/06/2015 Spinal [...] completed and returned to patient. Renard Almodovar APRN.MARGARITA documented in this encounter [facility] 09-15-2024 Note HNO ID: [id number] Author: SHANNON HAWKINS PA-C Service: ? Author Type: Physician Health Inspector Type: Progress Notes Filed: 09/15/2024 08:18 Note Text: This note was created using NoteWriter. Elida Andres is a 34 year old [...] 08/07/2013 Bipolar 1 disorder (HCC) 02/14/2018 Seeing [facility] Behavioral Medicine as of 01/2018 [...] spinal stenosis 04/25/2024 Lupus (systemic lupus erythematosus) ([facility]) Migraine without aura and without status migrainosus, not intractable 05/20/2017 Multiple thyroid nodules 07/26/2019 Neoplasm of uncertain behavior of skin of back Obesity, Class I, BMI 30-34.9 03/03/2023 Other and unspecified ovarian cyst Ovarian cyst Other joint derangement, not elsewhere classified, lower leg 08/20/2008 Papillary thyroid carcinoma ([facility]) 07/21/2019 PMH - PAST MEDICAL HISTORY OF r thumb broken Post-surgical hypothyroidism 08/25/2019 Primary thyroid papillary carcinoma ([facility]) 07/21/2019 PTSD (post-traumatic stress disorder) 02/14/2018 PTSD (post-traumatic stress disorder) S/P total thyroidectomy 07/31/2019 Sacroiliitis, not elsewhere classified ([facility]) 02/20/2013 SI (sacroiliac) joint dysfunction 11/06/2015 Spinal [...] of synthroid daily (more content not included)... [facility] 09-15-2024 History of Present illness Narrative This note was created using [employer]. Elida Andres is a 34 year old [...] 08/07/2013 Bipolar 1 disorder (HCC) 02/14/2018 Seeing [facility] Behavioral Medicine as of 01/2018 [...] spinal stenosis 04/25/2024 Lupus (systemic lupus erythematosus) ([facility]) Migraine without aura and without status migrainosus, not intractable 05/20/2017 Multiple thyroid nodules 07/26/2019 Neoplasm of uncertain behavior of skin of back Obesity, Class I, BMI 30-34.9 03/03/2023 Other and unspecified ovarian cyst Ovarian cyst Other joint derangement, not elsewhere classified, lower leg 08/20/2008 Papillary thyroid carcinoma ([facility]) 07/21/2019 PMH - PAST MEDICAL HISTORY OF r thumb broken Post-surgical hypothyroidism 08/25/2019 Primary thyroid papillary carcinoma ([facility]) 07/21/2019 PTSD (post-traumatic stress disorder) 02/14/2018 PTSD (post-traumatic stress disorder) S/P total thyroidectomy 07/31/2019 Sacroiliitis, not elsewhere classified ([facility]) 02/20/2013 SI (sacroiliac) joint dysfunction 11/06/2015 Spinal [...] Shannon Hawkins PA-C documented in this encounter [facility] 09-04-2024 Note HNO ID: [id number] Author: ADA CARSON LPN Service: ? Author Type: LICENSED NURSE Type: Progress Notes Filed: 09/04/2024 06:53 Note Text: Scan on 09/01/2024 12:48 PM by Dami Barrera PA-C: Consultation - Emergency Medicine [facility] 09-04-2024 History of Present illness Narrative Scan on 09/01/2024 12:48 PM by Dami Barrera PA-C: Consultation - Emergency Medicine documented in this encounter [facility] 08-22-2024 Note HNO ID: [id number] Author: ADA CARSON LPN Service: ? Author Type: LICENSED NURSE Type: Progress Notes Filed: 08/22/2024 09:24 Note Text: Scan on 08/21/2024 4:08 PM by ProviderDami PA-C: Miscellaneous Lab [facility] 08-22-2024 History of Present illness Narrative Scan on 08/21/2024 4:08 PM by ProviderDami PA-C: Miscellaneous Lab documented in this encounter [facility] 06-30-2024 Note HNO ID: [id number] Author: NATA MORSE LPN Service: ? Author Type: LICENSED NURSE Type: Progress Notes Filed: 06/30/2024 09:43 Note Text: Patient presents for suture removal per Dr Red. Pt denies any pain, redness, swelling, or drainage from site. Removed 5 sutures from upper left back. Incision well approximated and healing; no redness, swelling, or drainage noted. Tolerated procedure well. Nata Morse LPN [facility] 06-30-2024 History of Present illness Narrative Patient presents for suture removal per Dr Red. Pt denies any pain, redness, swelling, or drainage from site. Removed 5 sutures from upper left back. Incision well approximated and healing; no redness, swelling, or drainage noted. Tolerated procedure well. Nata Morse LPN documented in this encounter [facility] 06-21-2024 Telephone encounter Note Patient notified and voiced understanding. Jace Wallis MA [facility] 06-21-2024 Miscellaneous Notes Patient notified and voiced understanding. Jace Wallis MA Let patient know skin biopsy was benign. documented in this encounter [facility] 06-20-2024 Telephone encounter Note Let patient know skin biopsy was benign. [facility] 06-19-2024 Procedure note Procedure(s): SKIN BIOPSY Pre-Procedure [...] cm x 1.0 cm Nagi Red MD [facility] 06-19-2024 Procedure note Procedure(s): SKIN BIOPSY Pre-Procedure [...] Nagi Red MD documented in this encounter [facility] 06-19-2024 History of Present illness Narrative Chief [...] 08/07/2013 Bipolar 1 disorder (HCC) 02/14/2018 Seeing [facility] Behavioral Medicine as of 01/2018 Bipolar 1 disorder ([facility]) Chronic fatigue disorder 03/19/2015 Congenital heart [...] Cancer Screening due on 05/06/2020 Covid-19 Vaccine( - season) Never done Influenza Vaccine(1) due on [...] Nagi Red MD documented in this encounter [facility] 06-18-2024 History of Present illness Narrative VIRTUAL VISIT PROGRESS NOTE This is a virtual visit using [employer] Zoom Video Visit. It required patient-provider interaction for the medical decision making as documented below. I have communicated my name and active licensure. The patient's identity and physical location were verified at the time of this visit. Either the patient or their legal hotel services sales representative has been informed of the risks [...] 08/07/2013 Bipolar 1 disorder (HCC) 02/14/2018 Seeing [facility] Behavioral Medicine as of 01/2018 [...] total thyroidectomy 07/31/2019 Sacroiliitis, not elsewhere classified ([facility]) 02/20/2013 SI (sacroiliac) joint dysfunction 11/06/2015 [...] which included preparing to see the patient, [id number]-iofn patient care, completing clinical documentation, and ordering medications, tests, or procedures Carlie Brownlee APRN.DRAMATIC ARTS HISTORIAN documented in this encounter [facility] 05-23-2024 Telephone encounter Note Patient rescheduled 06/19/2024 at 1:20 pm with check in time of 1:05 pm Sent my chart message. Jace Wallis MA [facility] 05-23-2024 Miscellaneous Notes Patient rescheduled 06/19/2024 at [...] and call her with date and time. Dede Lundy LPN documented in this encounter [facility] 05-23-2024 Telephone encounter Note Pt called to let you know she is running a fever and has sore throat. She is cancelling for today and. She will not be available till after 06-12-24. Okay to schedule her after 06-12-24 and call her with date and time. Dede Lundy LPN [facility] 05-16-2024 Telephone encounter Note Mri order signed off [facility] 05-16-2024 Miscellaneous Notes Mri order signed off [...] provider for review. documented in this encounter [facility] 05-15-2024 Telephone encounter Note DONA: 03/16/2024 w/Carlie Brownlee CNP PLAN: Continue medication management through the [facility] The following approved medication requests have been transmitted electronically: Ultram Interventional procedure options discussed. Ordered and scheduled repeat right SI RFA F/U in 3 months May be virtual for refills Imagin03/27/2023: Lumbar XRAY MRI: Not noted Routing to provider for review. [facility] 05-12-2024 Telephone encounter Note Reason for Call: Pt calling for results of ultrasound done on left leg today due to pain. Pt states she was told not to use heat or massage until results are back. Is using ibuprofen for pain. Outcome: Will forward message to provider and advised caller to call office tomorrow morning for f/u. [facility] 05-12-2024 Miscellaneous Notes Reason for Call: Pt calling for results of ultrasound done on left leg today due to pain. Pt states she was told not to use heat or massage until results are back. Is using ibuprofen for pain. Outcome: Will forward message to provider and advised caller to call office tomorrow morning for f/u. documented in this encounter [facility] 05-12-2024 History of Present illness Narrative Radiology [...] PATIENT PRESENTS WITH AN IMPLANTABLE OR ATTACHED PROFESSIONAL SECURITY OFFICER: No RADIOLOGY DEPARTMENT: Ultrasound PERIPHERAL IV DATA: Not applicable SIGNED BY: TECHNOLOGIST Sb May 12, 2024 3:51 PM documented in this encounter [facility] 05-12-2024 History of Present illness Narrative 05/12/2024 [...] 08/07/2013 Bipolar 1 disorder (HCC) 02/14/2018 Seeing [facility] Behavioral Medicine as of 01/2018 [...] spinal stenosis 04/25/2024 Lupus (systemic lupus erythematosus) ([facility]) Migraine without aura and without status migrainosus, not intractable 05/20/2017 Multiple thyroid nodules 07/26/2019 Obesity, Class I, BMI 30-34.9 03/03/2023 Other and unspecified ovarian cyst Ovarian cyst Other joint derangement, not elsewhere classified, lower leg 08/20/2008 Papillary thyroid carcinoma ([facility]) 07/21/2019 PMH - PAST MEDICAL HISTORY OF r thumb broken Post-surgical hypothyroidism 08/25/2019 Primary thyroid papillary carcinoma ([facility]) 07/21/2019 PTSD (post-traumatic stress disorder) 02/14/2018 PTSD (post-traumatic stress disorder) S/P total thyroidectomy 07/31/2019 Sacroiliitis, not elsewhere classified ([facility]) 02/20/2013 SI (sacroiliac) joint dysfunction 11/06/2015 [...] ER with red flag symptoms Sakshi Pandey APRN.DRAMATIC ARTS HISTORIAN Prescription instructions reviewed with patient as applicable. [...] 4 - Moderate documented in this encounter [facility] 05-04-2024 Telephone encounter Note Spoke with pt and she is rescheduled to 6-19-24. 1 PM (40 minutes). Dede Lundy LPN [facility] 05-04-2024 Miscellaneous Notes Spoke with pt and she is rescheduled to 6-19-24. 1 PM (40 minutes). Dede Lundy LPN Sent my chart message. Jace Wallis MA Options: 05/05 at 1:40 40 minute 05/08 at 1:20 40 minute 05/10 at 1:00 40 minute Patient is scheduled next Wednesday for excision. This needs to be rescheduled with a 40 minute slot. Any questions, please contact office. [id number] Jace Wallis MA documented in this encounter [facility] 05-03-2024 Telephone encounter Note Sent my chart message. Jace Wallis MA Options: 05/05 at 1:40 40 minute 05/08 at 1:20 40 minute 05/10 at 1:00 40 minute [facility] 05-02-2024 Telephone encounter Note Patient is scheduled next Wednesday for excision. This needs to be rescheduled with a 40 minute slot. Any questions, please contact office. [id number] Jace Wallis MA [facility] 05-01-2024 History of Present illness Narrative Reason for Visit: Papillary thyroid carcinoma History of Present Illness: Greta Andres is a 33 y.o. female here for follow up of papillary thyroid carcinoma ([facility] initial stratification intermediate risk). She is s/p total thyroidectomy and central neck dissection on 07/31/[address] Martinez at [facility]. Pathology showed mutifocal PTC with the [...] were removed uneventfully. 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 Follow up in 1 year. Caitlyn Rivera MD [employer] Department of Internal Medicine Division of Endocrinology, Diabetes and Metabolism [facility] documented in this encounter [facility] 05-01-2024 Instructions Caitlyn Rivera MD - 05/01/2024 12:20 PM EDT Labs today Follow up in 1 year. documented in this encounter [facility] 05-01-2024 Procedure note Associated Ord er(s): [...] suspicious lesions LEFT LATERAL: No suspicious nodes [facility] 05-01-2024 Procedure note Associated Ord er(s): [...] No suspicious nodes documented in this encounter [facility] 05-01-2024 Telephone encounter Note Patient notified and voiced understanding. Jace Wallis MA [facility] 05-01-2024 Miscellaneous Notes Patient notified and voiced understanding. Jace Wallis MA Let patient know her breathing test was ok. documented in this encounter [facility] 04-29-2024 Telephone encounter Note Let patient know her breathing test was ok. [facility] 04-26-2024 Telephone encounter Note Patient was contacted and rescheduled. Jace Wallis MA [facility] 04-26-2024 Miscellaneous Notes Patient was contacted and rescheduled. Jace Wallis MA documented in this encounter [facility] 04-26-2024 History of Present illness Narrative PULM FUNCTION: Provider: Nagi Red MD Assisting Tech: Vangie Carrion RPFT Spirometry w/BD: 1 documented in this encounter [facility] 04-26-2024 Telephone encounter Note Noted. [facility] 04-26-2024 Miscellaneous Notes Noted. Patient was notified and has not done vitmain D for few years but will resume 2000 units daily Yolande Reyes MA Advise patient her Vit D is only slightly low. Advise her to start taking Vit D 2000 international unit(s) 's a day. documented in this encounter [facility] 04-26-2024 Telephone encounter Note Patient was notified and has not done vitmain D for few years but will resume 2000 units daily Yolande Reyes MA [facility] 04-25-2024 Telephone encounter Note Advise patient her Vit D is only slightly low. Advise her to start taking Vit D 2000 international unit(s) 's a day. [facility] 04-25-2024 History of Present illness Narrative Chief [...] is seeing the counseling center here in [place] is on 3 medications but we will need to get those updated with dosage. Patient was seeing a PCP in [facility] when she was living there and was on HCTZ and has not been on this medication for a while. Patient with hx post surgical hypothyroid, papillary thyroid carcinoma, HTN, Anxiety, bipolar, vit D def, gastroparesis and those as below. Patient sees Endocrinology Dr. Rivera Patient sees Gastro [facility] Dr. Cole Past medical history, [...] 08/07/2013 Bipolar 1 disorder (HCC) 02/14/2018 Seeing [facility] Behavioral Medicine as of 01/2018 Bipolar 1 disorder ([facility]) Chronic fatigue disorder 03/19/2015 Congenital heart [...] disc disease 07/27/2012 Lupus (systemic lupus erythematosus) ([facility]) Migraine without aura and without status [...] on File Prior to Visit Medication Sig Gdprbtkwlsckhcf-Oxywukruh-YF (BROMFED DM) 2-30-10 mg/5 mL syrup Take [...] Lymph 1.00 - 4.00 k/uL 2.71 2.50 [place]% % 4.0 5.2 Abs [place] <0.87 k/uL 0.43 0.52 Eosin% % 2.0 [...] Negative Ketones, Urine Negative Negative Negative Specific Tad, Ur 1.005 - 1.030 1.020 1.021 Hemoglobin/Blood,Ur [...] ICD9: V72.31, ICD10: Z01.419 - CONSULT TO COMPLEX HUMAN RESOURCES MANAGER 16. Renal stones - ICD9: 592.0, ICD10: [...] which included preparing to see the patient, hrfm-sp-dsax patient care, completing clinical documentation, performing a medically appropriate examination, counseling and educating the patient/family/caregiver and ordering medications, tests, or procedures. Nagi Red MD documented in this encounter [facility] 04-19-2024 Note Addended by: NAGI RED on: 04/19/2024 04:04 PM Modules accepted: Orders [facility] 04-19-2024 Miscellaneous Notes Addended by: NAGI RED on: 04/19/2024 04:04 PM Modules accepted: Orders documented in this encounter [facility] 03-25-2024 History of Present illness Narrative Chief [...] sevearl years. Had a hearing exam at [facility] about 5 years ago and at that [...] 08/07/2013 Bipolar 1 disorder (HCC) 02/14/2018 Seeing [facility] Behavioral Medicine as of 01/2018 [...] classified, lower leg 08/20/2008 Papillary thyroid carcinoma ([facility]) 07/21/2019 PMH - PAST MEDICAL HISTORY OF r thumb broken Post-surgical hypothyroidism 08/25/2019 Primary thyroid papillary carcinoma ([facility]) 07/21/2019 PTSD (post-traumatic stress disorder) 02/14/2018 PTSD (post-traumatic stress disorder) S/P total thyroidectomy 07/31/2019 Sacroiliitis, not elsewhere classified ([facility]) 02/20/2013 SI (sacroiliac) joint dysfunction 11/06/2015 [...] as needed for up to 30 days. Zzsovyiqaivtrfn-Lgaapnfwl-UR ([facility]FED DM) 2-30-10 mg/5 mL syrup Take [...] H93.11 (primary diagnosis) - CONSULT TO ENT: [place] 2. Right ear pain - ICD9: 388.70, ICD10: H92.01 - CONSULT TO ENT: Antony. 3. Neoplasm of uncertain behavior of skin of back - ICD9: 238.2, ICD10: D48.5 - discussed excisional biopsy and patient in agreement. F/u in near future for excisional biopsy Nagi Red MD documented in this encounter [facility] 03-16-2024 History of Present illness Narrative Images from the original note were not included. Subjective Greta Andres presents to [facility] [place] Pain Management Department for a follow up [...] which included preparing to see the patient, [id number] patient care, completing clinical documentation, performing a [...] above and verbalized understanding. Carlie Brownlee APRN, DRAMATIC ARTS HISTORIAN March 16, 2024 documented in this encounter [facility] 03-07-2024 History of Present illness Narrative Scan on 03/06/2024 2:25 PM by Provider, CARLYN Lomax: Ultrasound Galina Forman LPN documented in this encounter [facility] 01-11-2024 History of Present illness Narrative 01/11/2024 [...] 08/07/2013 Bipolar 1 disorder (HCC) 02/14/2018 Seeing [facility] Behavioral Medicine as of 01/2018 Bipolar 1 disorder ([facility]) Chronic fatigue disorder 03/19/2015 Congenital heart [...] disc disease 07/27/2012 Lupus (systemic lupus erythematosus) ([facility]) Migraine without aura and without status [...] [Dextroamphetamine-Amphetamine] MEDICATIONS Current Outpatient Medications Medication Sig Aiplrlngbshwlrq-Saredycar-TQ (BROMFED DM) 2-30-10 mg/5 mL syrup Take [...] Galilea Olvera PA-C documented in this encounter [facility] 01-07-2024 Miscellaneous Notes Patient notified of results, verbalized understanding of instructions given. Dee Vila MA Please notify positive for flu B Push fluids Otc medication advised Duration typically 5-7 days F/u for worsening s/s documented in this encounter [facility] 01-07-2024 Instructions Octavio Alcantara PA - 01/07/2024 [...] while taking this documented in this encounter [facility] 01-07-2024 History of Present illness Narrative This note was created using [employer]. Elida Andres is a 33 year old [...] treated in the past by Dr. Toyin Crury and she also saw counselor at the counseling center. She believes she is doing well off medication. She denies ever having any symptoms of depression. Anxiety, generalized Back pain 08/07/2013 Bipolar 1 disorder (HCC) 02/14/2018 Seeing [facility] Behavioral Medicine as of 01/2018 [...] disc disease 07/27/2012 Lupus (systemic lupus erythematosus) ([facility]) Migraine without aura and without status migrainosus, not intractable 05/20/2017 Multiple thyroid nodules 07/26/2019 Obesity, Class I, BMI 30-34.9 03/03/2023 Other and unspecified ovarian cyst Ovarian cyst Other joint derangement, not elsewhere classified, lower leg 08/20/2008 Papillary thyroid carcinoma ([facility]) 07/21/2019 PMH - PAST MEDICAL HISTORY [...] Adhesive, Morphine Sulfate, and Adderall [Dextroamphetamine-Amphetamine] MEDICATIONS Nctlgwpjalghngw-Ggbnaqenl-QG (BROMFED DM) 2-30-10 mg/5 mL syrup Take [...] evaluation. JERI Carroll documented in this encounter [facility] 01-03-2024 History of Present illness Narrative Scan on 01/01/2024 12:12 AM by ProviderDami PA-C: Consultation - Emergency Medicine Scan on 12/31/2023 6:12 PM by ProviderDami, PAContrerasC: CT Scan documented in this encounter [facility] 11-04-2023 Instructions Brian Griffin - 11/04/2023 3:57 [...] to twice weekly documented in this encounter [facility] 11-04-2023 History of Present illness Narrative Initial [...] 03/27/2023 5.5 07/06/2022 5.2 12/21/2019 5.3 HBA1C, Antony (%) Date Value 01/20/2006 5.0 PCP: Nagi [...] 08/07/2013 Bipolar 1 disorder (HCC) 02/14/2018 Seeing [facility] Behavioral Medicine as of 01/2018 [...] disc disease 07/27/2012 Lupus (systemic lupus erythematosus) ([facility]) Migraine without aura and without status migrainosus, not intractable 05/20/2017 Multiple thyroid nodules 07/26/2019 Obesity, Class I, BMI 30-34.9 03/03/2023 Other and unspecified ovarian cyst Ovarian cyst Other joint derangement, not elsewhere classified, lower leg 08/20/2008 Papillary thyroid carcinoma ([facility]) 07/21/2019 PMH - PAST MEDICAL HISTORY OF r thumb broken Post-surgical hypothyroidism 08/25/2019 Primary thyroid papillary carcinoma ([facility]) 07/21/2019 PTSD (post-traumatic stress disorder) 02/14/2018 PTSD (post-traumatic stress disorder) S/P total thyroidectomy 07/31/2019 Sacroiliitis, not elsewhere classified ([facility]) 02/20/2013 SI (sacroiliac) joint dysfunction 11/06/2015 [...] excision Brian Griffin DPM Podiatry [address] [facility] [address] Dept: [phone] Dept AMB ROOMING INTAKE FLOWSHEET DATA Pain Pain Level: 2 Pain Location: Foot-Left Description: Sharp Duration Amount of Time: 3 Duration Units: Weeks Frequency: Intermittent Intervention/Comfort measure: Relaxation, Reposition Patient presents with: Left Foot - New Patient, Foreign Body Patient c/o possible splinter to L plantar foot x 3 weeks. Area where splinter is has since callused over. documented in this encounter [facility] 10-04-2023 History of Present illness Narrative Subjective [...] 08/07/2013 Bipolar 1 disorder (HCC) 02/14/2018 Seeing [facility] Behavioral Medicine as of 01/2018 [...] analgesia. - Discussed expected course of illness Bobby Paiz APRN.DRAMATIC ARTS HISTORIAN documented in this encounter [facility] 10-04-2023 Instructions Bobby Paiz APRN.DRAMATIC ARTS HISTORIAN - 10/04/2023 9:26 AM EST ASSESSMENT/PLAN: 1. [...] analgesia. - Discussed expected course of illness Bobby Paiz APRN.CNP ACUTE BRONCHITIS: You have acute [...] of proper treatment. documented in this encounter [facility] 09-15-2023 History of Present illness Narrative VIRTUAL VISIT PROGRESS NOTE This is a virtual visit using [employer] Video Visit. It required patient-provider interaction for the medical decision making as documented below. I have communicated my name and active licensure. The patient's identity and physical location were verified at the time of this visit. Either the patient or their legal hotel services sales representative has been informed of the risks [...] 08/07/2013 Bipolar 1 disorder (HCC) 02/14/2018 Seeing [facility] Behavioral Medicine as of 01/2018 Bipolar 1 disorder ([facility]) Chronic fatigue disorder 03/19/2015 Congenital heart [...] disc disease 07/27/2012 Lupus (systemic lupus erythematosus) ([facility]) Migraine without aura and without status migrainosus, not intractable 05/20/2017 Multiple thyroid nodules 07/26/2019 Obesity, Class I, BMI 30-34.9 03/03/2023 Other and unspecified ovarian cyst Ovarian cyst Other joint derangement, not elsewhere classified, lower leg 08/20/2008 Papillary thyroid carcinoma ([facility]) 07/21/2019 PMH - PAST MEDICAL HISTORY OF r thumb broken Post-surgical hypothyroidism 08/25/2019 Primary thyroid papillary carcinoma ([facility]) 07/21/2019 PTSD (post-traumatic stress disorder) 02/14/2018 PTSD (post-traumatic stress disorder) S/P total thyroidectomy 07/31/2019 Sacroiliitis, not elsewhere classified ([facility]) 02/20/2013 SI (sacroiliac) joint dysfunction 11/06/2015 [...] which included preparing to see the patient, hfnz-jz-ufkz patient care, completing clinical documentation, performing a medically appropriate examination, and ordering medications, tests, or procedures Carlie Brownlee APRN.DRAMATIC ARTS HISTORIAN documented in this encounter [facility] 06-08-2023 History of Present illness Narrative SUBJECTIVE: Greta Andres presents to [facility] [place] Pain Management Department for a follow up [...] activity was identified. 06/08/2023 by Carlie Brownlee APRN.DRAMATIC ARTS HISTORIAN Narcotic Agreement reviewed and signed?: N/A on [...] which included preparing to see the patient, [id number] patient care, completing clinical documentation, performing a medically appropriate examination, and ordering medications, tests, or procedures. Carlei Brownlee APRN.DRAMATIC ARTS HISTORIAN documented in this encounter [facility] 04-28-2023 History of Present illness Narrative Radiology [...] TIME: 3:10 PM documented in this encounter [facility] 04-28-2023 Miscellaneous Notes Pt notified of Christine's [...] notified of thyroid levels. Pt sees Dr Caitlyn Rivera in [place]. Pt's results were faxed & pt will contact the office for follow up. Dr Rivera ph: [phone] Pt is asking for results from rest of labs from yesterday. Galina Forman LPN Let patient know that her TSH level is significantly elevated and may be cause of some of her current symptoms. We can send this lab result to her offal baler and I would advise her to get in touch with her office as well. (Please confirm offal baler so labs can be sent). (Fyi to Dano) documented in this encounter [facility] 04-27-2023 Instructions Renard Almodovar APRN.DRAMATIC ARTS HISTORIAN - 04/27/2023 10:22 AM EDT Complete labs Schedule CTA 3. Follow up as directed with results of CTA and labs documented in this encounter [facility] 04-27-2023 History of Present illness Narrative Chief [...] 08/07/2013 Bipolar 1 disorder (HCC) 02/14/2018 Seeing [facility] Behavioral Medicine as of 01/2018 [...] Renard Almodovar APRN.MARGARITA documented in this encounter [facility] 04-26-2023 History of Present illness Narrative Scan on 04/24/2023 3:46 PM by External Provider, CARLYN: Consultation - Emergency Medicine documented in this encounter [facility] 04-05-2023 Miscellaneous Notes Patient notified and verbalized understanding. Patient states that she needs to look at her schedule and call back to reschedule appointment Greta Fox Cma Please let patient know her cholesterol levels have worsened and her vitamin D is low. Patient should reschedule her appointment to discuss these results. documented in this encounter [facility] 04-01-2023 Miscellaneous Notes Results sent via Glooko message at this time Dr. Contreras reviewed [...] not scheduled it documented in this encounter [facility] 03-29-2023 Miscellaneous Notes Records received and delivered to provider's office. Dede Lundy LPN Pt called and advised was seen in [facility] ER yesterday 03-28-23 for abdominal pain/back pain/ right flank pain. Was told not kidney stone. Pt still having pain and has been scheduled for ER FU today. Pt feels she still may have a kidney stone. I had to leave a phone message requesting records and they are to be faxed to me and I will deliver to office. [facility] Medical records was asked to call if there was any problems. Dede Lundy LPN documented in this encounter [facility] 03-03-2023 Instructions Nagi Red MD - 03/03/2023 11:14 AM EDT Please get labs and urine test done on or after 08/20/2023 prior to your next visit. documented in this encounter [facility] 03-03-2023 History of Present illness Narrative Chief [...] not been successful. Is seeing Gastro at [facility] and feel she may have [...] 08/07/2013 Bipolar 1 disorder (HCC) 02/14/2018 Seeing [facility] Behavioral Medicine as of 01/2018 [...] disc disease 07/27/2012 Lupus (systemic lupus erythematosus) ([facility]) Migraine without aura and without status migrainosus, not intractable 05/20/2017 Multiple thyroid nodules 07/26/2019 Other and unspecified ovarian cyst Ovarian cyst Other joint derangement, not elsewhere classified, lower leg 08/20/2008 Papillary thyroid carcinoma ([facility]) 07/21/2019 PMH - PAST MEDICAL HISTORY OF r thumb broken Post-surgical hypothyroidism 08/25/2019 Primary thyroid papillary carcinoma ([facility]) 07/21/2019 PTSD (post-traumatic stress disorder) 02/14/2018 PTSD (post-traumatic stress disorder) S/P total thyroidectomy 07/31/2019 Sacroiliitis, not elsewhere classified ([facility]) 02/20/2013 SI (sacroiliac) joint dysfunction 11/06/2015 [...] Nagi Red MD documented in this encounter [facility] 02-17-[address] Contreras has sent flexeril to pharmacy Provider: Dr. Juan Daniel Contreras and Carlie Brownlee CNP patient requesting [...] Marcella Mohr RN documented in this encounter [facility] 02-12-2023 Surgical operation note PATIENT NAME: Greta [...] time and personally performed the procedure. SIGNATURE: Juan Daniel Contreras MD DATE: February 12, 2023 TIME: 1:56 PM documented in this encounter [facility] 02-12-2023 History and physical note HISTORY AND [...] 08/07/2013 Bipolar 1 disorder (HCC) 02/14/2018 Seeing [facility] Behavioral Medicine as of 01/2018 [...] disc disease 07/27/2012 Lupus (systemic lupus erythematosus) ([facility]) Migraine without aura and without status migrainosus, not intractable 05/20/2017 Multiple thyroid nodules 07/26/2019 Other and unspecified ovarian cyst Ovarian cyst Other joint derangement, not elsewhere classified, lower leg 08/20/2008 Papillary thyroid carcinoma ([facility]) 07/21/2019 PMH - PAST MEDICAL HISTORY OF r thumb broken Post-surgical hypothyroidism 08/25/2019 Primary thyroid papillary carcinoma ([facility]) 07/21/2019 PTSD (post-traumatic stress disorder) 02/14/2018 PTSD (post-traumatic stress disorder) S/P total thyroidectomy 07/31/2019 Sacroiliitis, not elsewhere classified ([facility]) 02/20/2013 SI (sacroiliac) joint dysfunction 11/06/2015 [...] proceed with the procedure as planned. SIGNATURE: Juan Daniel Contreras MD DATE: February 12, 2023 TIME: 1:09 PM documented in this encounter [facility] 02-06-2023 History of Present illness Narrative Scan on 02/02/2023 7:57 AM by External Provider: GI Jace Wallis MA documented in this encounter [facility] 01-26-2023 History of Present illness Narrative Please see labs: Scan on 01/23/2023 11:14 AM by External Provider: Miscellaneous Lab Ruthann Mitchell LPN documented in this encounter [facility] 01-22-2023 History of Present illness Narrative Scan [...] Jace Wallis MA documented in this encounter [facility] 01-22-2023 History of Present illness Narrative Subjective [...] 08/07/2013 Bipolar 1 disorder (HCC) 02/14/2018 Seeing [facility] Behavioral Medicine as of 01/2018 [...] disc disease 07/27/2012 Lupus (systemic lupus erythematosus) ([facility]) Migraine without aura and without status migrainosus, not intractable 05/20/2017 Multiple thyroid nodules 07/26/2019 Other and unspecified ovarian cyst Ovarian cyst Other joint derangement, not elsewhere classified, lower leg 08/20/2008 Papillary thyroid carcinoma (HCC) 07/21/2019 PMH - PAST MEDICAL HISTORY OF r thumb broken Post-surgical hypothyroidism 08/25/2019 Primary thyroid papillary carcinoma (HCC) 07/21/2019 PTSD (post-traumatic stress disorder) 02/14/2018 Sacroiliitis, not elsewhere classified ([facility]) 02/20/2013 SI (sacroiliac) joint dysfunction 11/06/2015 [...] 2010,2011 SALPINGECTOMY Bilateral 10/23/2022 SINUS SURGERY HX 2013 ALLERGIES Adhesive, Morphine Sulfate, Adderall [Dextroamphetamine-Amphetamine], Animals [...] of care. This note was generated using [employer] software. It may contain errors in wording, punctuation, or spelling. Nagi Ku APRN.MARGARITA documented in this encounter [facility] 01-12-2023 Miscellaneous Notes Injection order signed off Order for Right Sacroiliac Joint Injection pended to provider at this time documented in this encounter [facility] 11-25-2022 History of Present illness Narrative VIRTUAL VISIT PROGRESS NOTE This is a virtual visit using [employer] video visit. It required patient-provider interaction for [...] 08/07/2013 Bipolar 1 disorder (HCC) 02/14/2018 Seeing [facility] Behavioral Medicine as of 01/2018 [...] disc disease 07/27/2012 Lupus (systemic lupus erythematosus) ([facility]) Migraine without aura and without status migrainosus, not intractable 05/20/2017 Multiple thyroid nodules 07/26/2019 Other and unspecified ovarian cyst Ovarian cyst Other joint derangement, not elsewhere classified, lower leg 08/20/2008 Papillary thyroid carcinoma ([facility]) 07/21/2019 PMH - PAST MEDICAL HISTORY OF r thumb broken Post-surgical hypothyroidism 08/25/2019 Primary thyroid papillary carcinoma ([facility]) 07/21/2019 PTSD (post-traumatic stress disorder) 02/14/2018 Sacroiliitis, not elsewhere classified ([facility]) 02/20/2013 SI (sacroiliac) joint dysfunction 11/06/2015 [...] which included preparing to see the patient, [id number]-iyhq patient care, completing clinical documentation, and ordering medications, tests, or procedures Carlie Brownlee APRN.MARGARITA documented in this encounter [facility] 10-12-2022 Miscellaneous Notes Addended by: CHRISTINE VAUGHN [...] Ada Carson LPN documented in this encounter [facility] 09-16-2022 History of Present illness Narrative Reason for Visit: Papillary thyroid carcinoma History of Present Illness: Greta Andres is a 31 y.o. female here for the follow up of her papillary thyroid carcinoma (TAYLOR initial stratification intermediate risk). She is s/p total thyroidectomy and central neck dissection on 07/31/[address] Martinez at [facility]. Pathology showed mutifocal PTC with the [...] stent bilaterally. Follow up in 6 months. Caitlyn Rivera MD [employer]motor[employer] rac[employer] Department of Internal Medicine Division of Endocrinology, Diabetes and Metabolism [facility] documented in this encounter [facility] 09-16-2022 Instructions Stephanie Richards RN - 09/16/2022 11:40 AM EDT Labs today Follow up in 6 months. documented in this encounter [facility] 09-16-2022 Procedure note Associated Ord er(s): MO US,HEAD/NECK TISSUES,REAL TIME ULTRASOUND NOTE Images were [...] 0.9 cm LEFT LATERAL: No suspicious nodes [facility] 09-16-2022 Procedure note Associated Ord er(s): MO US,HEAD/NECK TISSUES,REAL TIME ULTRASOUND NOTE Images were [...] No suspicious nodes documented in this encounter [facility] 09-10-2022 Note PROCEDURE: ULTRASOUN D TRANSVAGINAL [...] 2. Dominant 2.4 cm right ovarian follicle [facility] 07-31-2022 Miscellaneous Notes The following approved medication requests have been transmitted electronically. Requested Prescriptions Signed Prescriptions Disp Refills traMADol (ULTRAM) 50 mg tablet 30 tablet 2 Sig: Take 1 tablet by mouth once daily as needed for up to 30 days. Carlie Brownlee APRN.MARGARITA Received a refill request via [employer] from the patient for the following medication(s): [...] Vinh Pierson Ma documented in this encounter [facility] 07-07-2022 Miscellaneous Notes Patient notified of results and provider's instructions. Patient verbalizes understanding. Ada Carson LPN Let patient know that TSH is elevated at 6.610. Ask her to reach out to her offal baler for further instructions. They may want additional labs. Update us with any changes they do please. Cholesterol is mildly elevated. Could be false elevation due to changes in TSH levels currently. But still we will want to monitor. Rest of labs are normal Christine Dean PA-C documented in this encounter [facility] 07-06-2022 History of Present illness Narrative Chief [...] 08/07/2013 Bipolar 1 disorder (HCC) 02/14/2018 Seeing [facility] Behavioral Medicine as of 01/2018 [...] disc disease 07/27/2012 Lupus (systemic lupus erythematosus) ([facility]) Migraine without aura and without status migrainosus, not intractable 05/20/2017 Multiple thyroid nodules 07/26/2019 Other and unspecified ovarian cyst Ovarian cyst Other joint derangement, not elsewhere classified, lower leg 08/20/2008 Papillary thyroid carcinoma ([facility]) 07/21/2019 PMH - PAST MEDICAL HISTORY OF r thumb broken Post-surgical hypothyroidism 08/25/2019 Primary thyroid papillary carcinoma (HCC) 07/21/2019 PTSD (post-traumatic stress disorder) 02/14/2018 Sacroiliitis, not elsewhere classified ([facility]) 02/20/2013 SI (sacroiliac) joint dysfunction 11/06/2015 [...] BLOCK (MOD 59) 2010,2011 SINUS SURGERY HX 2013 Family History FAMILY HISTORY Problem Relation Age [...] Christine Dean PA-C documented in this encounter [facility] 06-24-2022 Miscellaneous Notes Pt notified to call into Scheduling to setup appt. Okay to Establish care per Dr. Red. Phil Millan Ma Notified pt of Provider message below. Offered to assist in scheduling with PA. Phil Millan Ma I'm ok with patient re-establishing care. documented in this encounter [facility] 06-16-2022 Instructions Caridad Colon RN - 06/16/2022 9:01 AM EDT Please call [phone] to update us on how you are doing in 4-6 weeks. Thank you! Lemon drops and other sialogogues (things that make you salivate) to stimulate saliva. Drink at least 8 glasses of water per day Warm compresses then Parotid (cheek) massage documented in this encounter [facility] 06-16-2022 History of Present illness Narrative [...] update RTC PRN documented in this encounter [facility] 04-10-2022 Miscellaneous Notes Patient contacted via telephone to schedule re-injection. Patient scheduled for: May 12, 2022 Patient left voicemail 04/09/2022 at 1146 Patient states she will need to reschedule procedure that is currently scheduled for 04/23/2022 Patient added to injection scheduling spreadsheet in epic Office to contact patient to reschedule documented in this encounter [facility] 04-07-2022 History of Present illness Narrative VIRTUAL VISIT PROGRESS NOTE This is a virtual visit using [employer] video visit. It required patient-provider interaction for [...] 08/07/2013 Bipolar 1 disorder (HCC) 02/14/2018 Seeing [facility] Behavioral Medicine as of 01/2018 [...] which included preparing to see the patient, [id number]-[id number] patient care, completing clinical documentation and ordering medications, tests, or procedures Carlie Brownlee APRN.MARGARITA documented in this encounter [facility] 03-26-2022 Instructions JESÚS Alford - 03/26/2022 8:32 AM EDT Welcome to the [facility] Clinic. We are here to assist you through your care at the [facility] and Navdeep Garcia [facility]. Dr. Tapia is your Head and Neck Surgical Oncology doctor. It is likely that you will have other cancer doctors to assist with your care. Dr. Tapia's Primary Nurse is Kylah Maddox RN. She can be reached at [phone]. In order to care for you in the best possible way it is very important that you have a relationship with a primary care doctor. If you do not have one please establish care with on in your area or at [facility] at [phone] an [address] Tapia will [...] liquid narcotic pain medication before you leave [place]. If you are on narcotic pain medication, you could become constipated so please take your bowel medication (laxative) of choice when you start narcotic pain medication. Here are the resources/team members available to you at [facility]: Speech and Language Pathologist (CORPORATE EXECUTIVE)- may be asked by Dr. Shay to assist you with swallowing and speaking issues. They may see you during visits with Dr. Shay and in the hospital. Our CORPORATE EXECUTIVE's and contact phone numbers are below: Roselia Kenny [phone] Yue Bateman [phone] Claire Bridges [phone] Caridad Lechuga [phone] Ana María Baker [phone] Darline [phone] Package Line Relief Operator- JORGE LUIS Dumont and JORGE LUIS Hardwick are available to assist with transportation and housing issues related to medical appointments. The social work professor also provides counseling and information regarding Advance Directives, End of Life issues, Social Security Disability, and referrals to support groups, and other community agencies. Please let Poppy or Dr. Shay know if you need these services. You may contact Deepali at [phone] or Beata [phone]. [facility] This is for patients who live in [facility] with a cancer diagnosis. The [facility] can provide rides to appointments, nutritional supplements and other services. It requires that your register for services by speaking with our head and neck social workers. If you are outside of [facility] the social work professor can assist you with what is available in your county. Pastoral Care-Senior Pharmacy Technician Fani Yee-is able to assist your with your spiritual needs. If you wish to see the sprayer insecticide please let your oncology team know to arrange this. Financial Services- Bimal Rees and Sabine Klein are our financial counselor who can assist your at your appointments or call them at [phone]. Telecom Engineer-Currently an order must be placed by Dr. Tapia to have to see the Telecom Engineer, Sandy Lopez. If you are already seeing Sandy her direct phone number is [phone]. Pain Management Team is available if Dr. Tapia feels that you need this a referral is made and your pain care is transferred to this group. Integrative Medicine therapy-these are complementary therapies used in addition to your cancer treatment to assist with anxiety, pain, nausea, poor sleep, and exhaustion. If you wish this additional therapy please contact [email or web address] to set up an appointment. You may also request this in the same way if you are inpatient or ask your nurse. THERE IS NO COST FOR THIS SERVICE. Fertility Presevation and Reproductive Health-The [facility] offers fertility preservation. This requires a referral from your doctor. If you are interested in sperm banking, egg freezing or other options please let your doctor know before you have chemotherapy or radiation. For information options please call [phone]. [facility]- It is conveniently located on the [facility] campus on the conference level (CL) of the [facility] and [facility], next door to [facility] and near [facility]. To learn more about [facility], you can visit it on weekdays from 8 a.m. - 9 p.m. and on weekends from 9 a.m. - 6 p.m., stop by our open house event April 26, call [phone] or visit. [facility]. Items: Family Medical Leave paperwork is available through your human resources department. Please call human resources and have them fax paperwork to DEANDRE Montero @ [phone]. [employer] ([employer])- is a communication tool used through the Internet to communicate NON-urgent medical information with your [facility] doctors. You may ask questions, receive results and get notification of appointments. The results will be released to the [employer]) by your doctors and will only be results that do not need additional explanation. If a discussion of the result is important your doctor or nurse will call you. If you wish to sign up this must be done in person. Our guest relations receptionist staff can assist you to get a password that can be changed when after you log on the first time. IMPORTANT REMINDER: This portal is only for NON-urgent information. If you have urgent information about your condition please call DEANDRE Mcwilliams at [phone]. THERE IS A NEW Diabetes Care Group AKIKO FOR SMART PHONES. USE YOUR AKIKO STORE AND SEARCH BestVendor, download the akiko and follow the prompts to set up the [facility] format. Through this AKIKO, you will be able to look at [...] the pills. documented in this encounter [facility] 03-26-2022 History of Present illness Narrative Chief Complaint: Chief Complaint Patient presents with New Patient HPI: Greta Andres is a 32 y.o. female non-smoker who presents 03/26/22 to the [facility] for evaluation of sialadenitis of the right parotid. Patient has a history of papillary thyroid carcinoma (TAYLOR initial stratification intermediate risk). She is s/p total thyroidectomy and central neck dissection on 07/31/[address] Martinez at [facility]. Pathology showed mutifocal PTC with the [...] to parotid swelling, with Karen ESPINOSA (ORL-HNS POSSUM TRAPPER). I discussed the differential diagnosis and plan [...] female non-smoker who presents 03/26/22 to the [facility] for evaluation of sialadenitis of the right parotid. Patient has a history of papillary thyroid carcinoma (TAYLOR initial stratification intermediate risk). She is s/p total thyroidectomy and central neck dissection on 07/31/[address] Martinez at [facility]. Pathology showed mutifocal PTC with the [...] to parotid swelling, with Karen ESPINOSA (ORL-HNS POSSUM TRAPPER). I discussed the differential diagnosis and plan [...] questions and concerns. documented in this encounter [facility] 03-18-2022 Instructions Stephanie Richards RN - 03/18/2022 12:38 PM EDT Labs today. Placed a referral to ENT to evaluate for salivary gland dysfunction. Follow up in 6 months documented in this encounter [facility] 03-18-2022 History of Present illness Narrative Reason for Visit: Papillary thyroid carcinoma History of Present Illness: Greta Andres is a 31 y.o. female here for the follow up of her papillary thyroid carcinoma (TAYLOR initial stratification intermediate risk). She is s/p total thyroidectomy and central neck dissection on 07/31/[address] Martinez at [facility]. Pathology showed mutifocal PTC with the [...] a referral to ENT for further evaluation. Caitlyn Rivera MD Buckle Frame Shapermotorcycle racer Department of Internal Medicine Division of Endocrinology, Diabetes and Metabolism [facility] documented in this encounter [facility] 03-18-2022 Procedure note Associated Ord er(s): MO US,HEAD/NECK TISSUES,REAL TIME ULTRASOUND NOTE Images were [...] 0.2 cm LEFT LATERAL: No suspicious nodes [facility] 03-18-2022 Procedure note Associated Ord er(s): MO US,HEAD/NECK TISSUES,REAL TIME ULTRASOUND NOTE Images were [...] No suspicious nodes documented in this encounter [facility] 03-05-2022 Instructions Vielka Castillo Al - 03/05/2022 8:13 AM EDT Capsule Endoscopy [...] hours you may call: After Business hours: [phone] have answering service contact your physician documented in this encounter [facility] 03-05-2022 History of Present illness Narrative Patient had a capsule endoscopy. Patient swallowed the capsule without any difficulty. Referring Provider: Susanne Potts Reason for Capsule: Susanne Potts Patient was given discharge instructions. Ingested capsule endoscope without difficulty at 8:12 AM on 03/05/2022. documented in this encounter [facility] 11-15-2021 Note PROCEDURE: CHEST AP PORTABLE REASON [...] No large effusion, dense consolidation, or pneumothorax. [facility] 07-17-2021 History of Present illness Narrative Radiology [...] 2021 12:28 PM documented in this encounter [facility] 06-20-2021 History of Present illness Narrative MARTIN education completed. Handouts and low iodine cookbook provided to patient. Denies any questions at this time. documented in this encounter [facility] 10-19-2017 History of Past i llness Narrative Problem Noted Date Resolved Date Well adult exam 10/19/2017 07/27/2019 Overview: Last done: 10/20/2017 Attention and concentration deficit 03/19/2015 07/27/2019 Esophageal reflux 02/21/2015 07/27/2019 Routine gynecological examination 08/10/2014 07/27/2019 Overview: [facility] Screening for diabetes mellitus (DM) 08/10/2014 07/27/2019 Need for lipid screening 08/10/2014 019 Fibromyalgia 05/07/2014 07/27/2019 Other acquired deformity of toe 05/20/2009 07/27/2019 Backache, unspecified 06/19/2008 07/27/2019 Overview: Patient has degenerative disc disease and a slipped disc in her back. The symptoms began July 2011. 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 She sees Dr. Salter at [facility] for both of these issues. Patient has multiple questions regarding anesthesia during delivery due to her back issues. I have asked her to discuss this with Dr. Salter at an upcoming appointment and have him dictate a letter to Dr. Anderson with any concerns he may have. documented as of this encounter (statuses as of 03/05/2022) [facility] History of Past illness Narrative* Problem Noted Date Resolved Date Well adult exam 10/19/2017 07/27/2019 Overview: Last done: 10/20/2017 Attention and concentration deficit 03/19/2015 07/27/2019 Esophageal reflux 02/21/2015 07/27/2019 Routine gynecological examination 08/10/2014 07/27/2019 Overview: [facility] Screening for diabetes mellitus (DM) 08/10/2014 07/27/2019 Need for lipid screening 08/10/2014 019 Fibromyalgia 05/07/2014 07/27/2019 Other acquired deformity of toe 05/20/2009 07/27/2019 Backache, unspecified 06/19/2008 07/27/2019 Overview: Patient has degenerative disc disease and a slipped disc in her back. The symptoms began July 2011. 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 She sees Dr. Salter at [facility] for both of these issues. Patient has multiple questions regarding anesthesia during delivery due to her back issues. I have asked her to discuss this with Dr. Salter at an upcoming appointment and have him dictate a letter to Dr. Anderson with any concerns he may have. documented as of this encounter (statuses as of 03/09/2022) [facility] History of Past illness Narrative* Problem Noted Date Resolved Date Well adult exam 10/19/2017 07/27/2019 Overview: Last done: 10/20/2017 Attention and concentration deficit 03/19/2015 07/27/2019 Esophageal reflux 02/21/2015 07/27/2019 Routine gynecological examination 08/10/2014 07/27/2019 [facility] (DM[facility] 08/10/2014 07/27/2019 Need for lipid screening 08/10/2014 019 Fibromyalgia 05/07/2014 07/27/2019 Other acquired deformity of toe 05/20/2009 07/27/2019 Backache, unspecified 06/19/2008 07/27/2019 Overview: Patient has degenerative disc disease and a slipped disc in her back. The symptoms began July 2011. 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 She sees Dr. Salter at [facility] for both of these issues. Patient has multiple questions regarding anesthesia during delivery due to her back issues. I have asked her to discuss this with Dr. Salter at an upcoming appointment and have him dictate a letter to Dr. Anderson with any concerns he may have. documented as of this encounter (statuses as of 04/07/2022) [facility] History of Past illness Narrative* Problem Noted Date Resolved Date Well adult exam 10/19/2017 07/27/2019 Overview: Last done: 10/20/2017 Attention and concentration deficit 03/19/2015 07/27/2019 Esophageal reflux 02/21/2015 07/27/2019 Routine gynecological examination 08/10/2014 07/27/2019 Overview: [facility] Screening for diabetes mellitus (DM) 08/10/2014 07/27/2019 Need for lipid screening 08/10/20142 019 Fibromyalgia 05/07/2014 07/27/2019 Other acquired deformity of toe 05/20/2009 07/27/2019 Backache, unspecified 06/19/2008 07/27/2019 Overview: Patient has degenerative disc disease and a slipped disc in her back. The symptoms began July 2011. 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 She sees Dr. Salter at [facility] for both of these issues. Patient has multiple questions regarding anesthesia during delivery due to her back issues. I have asked her to discuss this with Dr. Salter at an upcoming appointment and have him dictate a letter to Dr. Anderson with any concerns he may have. documented as of this encounter (statuses as of 04/10/2022) [facility] History of Past illness Narrative* Problem Noted Date Resolved Date Well adult exam 10/19/2017 07/27/2019 Overview: Last done: 10/20/2017 Attention and concentration deficit 03/19/2015 07/27/2019 Esophageal reflux 02/21/2015 07/27/2019 Routine gynecological examination 08/10/2014 07/27/2019 Overview: [facility] Screening for diabetes mellitus (DM) 08/10/2014 07/27/2019 Need for lipid screening 08/10/2014 019 Fibromyalgia 05/07/2014 07/27/2019 Other acquired deformity of toe 05/20/2009 07/27/2019 Backache, unspecified 06/19/2008 07/27/2019 Overview: Patient has degenerative disc disease and a slipped disc in her back. The symptoms began July 2011. 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 She sees Dr. Salter at [facility] for both of these issues. Patient has multiple questions regarding anesthesia during delivery due to her back issues. I have asked her to discuss this with Dr. Salter at an upcoming appointment and have him dictate a letter to Dr. Anderson with any concerns he may have. documented as of this encounter (statuses as of 04/14/2022) [facility] History of Past illness Narrative* Problem Noted Date Resolved Date Well adult exam 10/19/2017 07/27/2019 Overview: Last done: 10/20/2017 Attention and concentration deficit 03/19/2015 07/27/2019 Esophageal reflux 02/21/2015 07/27/2019 Routine gynecological examination 08/10/2014 07/27/2019 Overview: Sees [facility] Screening for diabetes mellitus (DM) 08/10/2014 07/27/2019 Need for lipid screening 08/10/2014 019 Fibromyalgia 05/07/2014 07/27/2019 Other acquired deformity of toe 05/20/2009 07/27/2019 Backache, unspecified 06/19/2008 07/27/2019 Overview: Patient has degenerative disc disease and a slipped disc in her back. The symptoms began July 2011. 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 She sees Dr. Salter at [facility] for both of these issues. Patient has multiple questions regarding anesthesia during delivery due to her back issues. I have asked her to discuss this with Dr. Salter at an upcoming appointment and have him dictate a letter to Dr. Anderson with any concerns he may have. documented as of this encounter (statuses as of 05/14/2022) [facility] History of Past illness Narrative* Problem Noted Date Resolved Date Well adult exam 10/19/2017 07/27/2019 Overview: Last done: 10/20/2017 Attention and concentration deficit 03/19/2015 07/27/2019 Esophageal reflux 02/21/2015 07/27/2019 Routine gynecological examination 08/10/2014 07/27/2019 Overview: [facility] Screening for diabetes mellitus (DM) 08/10/2014 07/27/2019 Need for lipid screening 08/10/20142 019 Fibromyalgia 05/07/2014 07/27/2019 Other acquired deformity of toe 05/20/2009 07/27/2019 Backache, unspecified 06/19/2008 07/27/2019 Overview: Patient has degenerative disc disease and a slipped disc in her back. The symptoms began July 2011. 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 She sees Dr. Salter at [facility] for both of these issues. Patient has multiple questions regarding anesthesia during delivery due to her back issues. I have asked her to discuss this with Dr. Salter at an upcoming appointment and have him dictate a letter to Dr. Anderson with any concerns he may have. documented as of this encounter (statuses as of 05/26/2022) [facility] History of Past illness Narrative* Problem Noted Date Resolved Date Well adult exam 10/19/2017 07/27/2019 Overview: Last done: 10/20/2017 Attention and concentration deficit 03/19/2015 07/27/2019 Esophageal reflux 02/21/2015 07/27/2019 Routine gynecological examination 08/10/2014 07/27/2019 Overview: [facility] Screening for diabetes mellitus (DM) 08/10/2014 07/27/2019 Need for lipid screening 08/10/2014 019 Fibromyalgia 05/07/2014 07/27/2019 Other acquired deformity of toe 05/20/2009 07/27/2019 Backache, unspecified 06/19/2008 07/27/2019 Overview: Patient has degenerative disc disease and a slipped disc in her back. The symptoms began July 2011. 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 She sees Dr. Salter at [facility] for both of these issues. Patient has multiple questions regarding anesthesia during delivery due to her back issues. I have asked her to discuss this with Dr. Salter at an upcoming appointment and have him dictate a letter to Dr. Anderson with any concerns he may have. documented as of this encounter (statuses as of 06/24/2022) [facility] History of Past illness Narrative* Problem Noted Date Resolved Date Well adult exam 10/19/2017 07/27/2019 Overview: Last done: 10/20/2017 Attention and concentration deficit 03/19/2015 07/27/2019 Esophageal reflux 02/21/2015 07/27/2019 Routine gynecological examination 08/10/2014 07/27/2019 Overview: [facility] Screening for diabetes mellitus (DM) 08/10/2014 07/27/2019 Need for lipid screening 08/10/2014 019 Fibromyalgia 05/07/2014 07/27/2019 Other acquired deformity of toe 05/20/2009 07/27/2019 Backache, unspecified 06/19/2008 07/27/2019 Overview: Patient has degenerative disc disease and a slipped disc in her back. The symptoms began July 2011. 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 She sees Dr. Salter at [facility] for both of these issues. Patient has multiple questions regarding anesthesia during delivery due to her back issues. I have asked her to discuss this with Dr. Salter at an upcoming appointment and have him dictate a letter to Dr. Anderson with any concerns he may have. documented as of this encounter (statuses as of 07/01/2022) [facility] History of Past illness Narrative* Problem Noted Date Resolved Date Well adult exam 10/19/2017 07/27/2019 Overview: Last done: 10/20/2017 Attention and concentration deficit 03/19/2015 07/27/2019 Esophageal reflux 02/21/2015 07/27/2019 Routine gynecological examination 08/10/2014 07/27/2019 Overview: [facility] Screening for diabetes mellitus (DM) 08/10/2014 07/27/2019 Need for lipid screening 08/10/2014 019 Fibromyalgia 05/07/2014 07/27/2019 Other acquired deformity of toe 05/20/2009 07/27/2019 Backache, unspecified 06/19/2008 07/27/2019 Overview: Patient has degenerative disc disease and a slipped disc in her back. The symptoms began July 2011. 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 She sees Dr. Salter at [facility] for both of these issues. Patient has multiple questions regarding anesthesia during delivery due to her back issues. I have asked her to discuss this with Dr. Salter at an upcoming appointment and have him dictate a letter to Dr. Anderson with any concerns he may have. documented as of this encounter (statuses as of 07/06/2022) [facility] History of Past illness Narrative* Problem Noted Date Resolved Date Well adult exam 10/19/2017 07/27/2019 Overview: Last done: 10/20/2017 Attention and concentration deficit 03/19/2015 07/27/2019 Esophageal reflux 02/21/2015 07/27/2019 Routine gynecological examination 08/10/2014 07/27/2019 Overview: [facility]es [facility] Screening for diabetes mellitus (DM) 08/10/2014 07/27/2019 Need for lipid screening 08/10/2014 019 Fibromyalgia 05/07/2014 07/27/2019 Other acquired deformity of toe 05/20/2009 07/27/2019 Backache, unspecified 06/19/2008 07/27/2019 Overview: Patient has degenerative disc disease and a slipped disc in her back. The symptoms began July 2011. 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 She sees Dr. Salter at [facility] for both of these issues. Patient has multiple questions regarding anesthesia during delivery due to her back issues. I have asked her to discuss this with Dr. Salter at an upcoming appointment and have him dictate a letter to Dr. Anderson with any concerns he may have. documented as of this encounter (statuses as of 07/07/2022) [facility] History of Past illness Narrative* Problem Noted Date Resolved Date Well adult exam 10/19/2017 07/27/2019 Overview: Last done: 10/20/2017 Attention and concentration deficit 03/19/2015 07/27/2019 Esophageal reflux 02/21/2015 07/27/2019 Routine gynecological examination 08/10/2014 07/27/2019 Overview: [facility] Screening for diabetes mellitus (DM) 08/10/2014 07/27/2019 Need for lipid screening 08/10/2014 019 Fibromyalgia 05/07/2014 07/27/2019 Other acquired deformity of toe 05/20/2009 07/27/2019 Backache, unspecified 06/19/2008 07/27/2019 Overview: Patient has degenerative disc disease and a slipped disc in her back. The symptoms began July 2011. 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 She sees Dr. Salter at [facility] for both of these issues. Patient has multiple questions regarding anesthesia during delivery due to her back issues. I have asked her to discuss this with Dr. Salter at an upcoming appointment and have him dictate a letter to Dr. Anderson with any concerns he may have. documented as of this encounter (statuses as of 07/31/2022) [facility] History of Past illness Narrative* Problem Noted Date Resolved Date Attention and concentration deficit 03/19/2015 07/27/2019 Esophageal reflux 02/21/2015 07/27/2019 Routine gynecological examination 08/10/2014 07/27/2019 Overview: [facility] Screening for diabetes mellitus (DM) 08/10/2014 07/27/2019 Need for lipid screening 08/10/2014 019 Fibromyalgia 05/07/2014 07/27/2019 Other acquired deformity of toe 05/20/2009 07/27/2019 Backache, unspecified 06/19/2008 07/27/2019 Overview: Patient has degenerative disc disease and a slipped disc in her back. The symptoms began July 2011. 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 She sees Dr. Salter at [facility] for both of these issues. Patient has multiple questions regarding anesthesia during delivery due to her back issues. I have asked her to discuss this with Dr. Salter at an upcoming appointment and have him dictate a letter to Dr. Anderson with any concerns he may have. documented as of this encounter (statuses as of 10/12/2022) [facility] History of Past illness Narrative* Problem Noted Date Resolved Date Attention and concentration deficit 03/19/2015 07/27/2019 Esophageal reflux 02/21/2015 07/27/2019 Routine gynecological examination 08/10/2014 07/27/2019 [facility] diabetes mellitus (DM) 08/10/2014 07/27/2019 Need for lipid screening 08/10/2014 019 Fibromyalgia 05/07/2014 07/27/2019 Other acquired deformity of toe 05/20/2009 07/27/2019 Backache, unspecified 06/19/2008 07/27/2019 Overview: Patient has degenerative disc disease and a slipped disc in her back. The symptoms began July 2011. 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 She sees Dr. Salter at [facility] for both of these issues. Patient has multiple questions regarding anesthesia during delivery due to her back issues. I have asked her to discuss this with Dr. Salter at an upcoming appointment and have him dictate a letter to Dr. Anderson with any concerns he may have. documented as of this encounter (statuses as of 11/26/2022) [facility]04-28-2015 History of Past illness Narrative* Problem Noted Date Resolved Date Attention and concentration deficit 03/19/2015 07/27/2019 Esophageal reflux 02/21/2015 07/27/2019 Routine gynecological examination 08/10/2014 07/27/2019 Overview: [facility] Screening for diabetes mellitus (DM) 08/10/2014 07/27/2019 Need for lipid screening 08/10/2014 019 Fibromyalgia 05/07/2014 07/27/2019 Other acquired deformity of toe 05/20/2009 07/27/2019 Backache, unspecified 06/19/2008 07/27/2019 Overview: Patient has degenerative disc disease and a slipped disc in her back. The symptoms began July 2011. 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 She sees Dr. Salter at [facility] for both of these issues. Patient has multiple questions regarding anesthesia during delivery due to her back issues. I have asked her to discuss this with Dr. Salter at an upcoming appointment and have him dictate a letter to Dr. Anderson with any concerns he may have. documented as of this encounter (statuses as of 11/27/2022) [facility]04-[facility]2015 History of Past illness Narrative* Problem Noted Date Resolved Date Attention and concentration deficit 03/19/2015 07/27/2019 Esophageal reflux 02/21/2015 07/27/2019 Routine gynecological examination 08/10/2014 07/27/2019 Overview: Sees [facility] Screening for diabetes mellitus (DM) 08/10/2014 07/27/2019 Need for lipid screening 08/10/2014 019 Fibromyalgia 05/07/2014 07/27/2019 Other acquired deformity of toe 05/20/2009 07/27/2019 Backache, unspecified 06/19/2008 07/27/2019 Overview: Patient has degenerative disc disease and a slipped disc in her back. The symptoms began July 2011. 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 She sees Dr. Salter at [facility] for both of these issues. Patient has multiple questions regarding anesthesia during delivery due to her back issues. I have asked her to discuss this with Dr. Salter at an upcoming appointment and have him dictate a letter to Dr. Anderson with any concerns he may have. documented as of this encounter (statuses as of 12/17/2022) [facility]04[facility]2015 History of Past illness Narrative* Problem Noted Date Resolved Date Attention and concentration deficit 03/19/2015 07/27/2019 Esophageal reflux 02/21/2015 07/27/2019 Routine gynecological examination 08/10/2014 07/27/2019 Overview: [facility] Screening for diabetes mellitus (DM) 08/10/2014 07/27/2019 Need for lipid screening 08/10/2014 019 Fibromyalgia 05/07/2014 07/27/2019 Other acquired deformity of toe 05/20/2009 07/27/2019 Backache, unspecified 06/19/2008 07/27/2019 Overview: Patient has degenerative disc disease and a slipped disc in her back. The symptoms began July 2011. 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 She sees Dr. Salter at [facility] for both of these issues. Patient has multiple questions regarding anesthesia during delivery due to her back issues. I have asked her to discuss this with Dr. Salter at an upcoming appointment and have him dictate a letter to Dr. Anderson with any concerns he may have. documented as of this encounter (statuses as of 01/12/2023) [facility]2015 History of Past illness Narrative* Problem Noted Date Resolved Date Attention and concentration deficit 03/19/2015 07/27/2019 Esophageal reflux 02/21/2015 07/27/2019 Routine gynecological examination 08/10/2014 07/27/2019 Overview: [facility] Screening for diabetes mellitus (DM) 08/10/2014 07/27/2019 Need for lipid screening 08/10/2014 019 Fibromyalgia 05/07/2014 07/27/2019 Other acquired deformity of toe 05/20/2009 07/27/2019 Backache, unspecified 06/19/2008 07/27/2019 Overview: Patient has degenerative disc disease and a slipped disc in her back. The symptoms began July 2011. 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 She sees Dr. Salter at [facility] for both of these issues. Patient has multiple questions regarding anesthesia during delivery due to her back issues. I have asked her to discuss this with Dr. Salter at an upcoming appointment and have him dictate a letter to Dr. Anderson with any concerns he may have. documented as of this encounter (statuses as of 01/22/2023) [facility]2015 History of Past illness Narrative* Problem Noted Date Resolved Date Attention and concentration deficit 03/19/2015 07/27/2019 Esophageal reflux 02/21/2015 07/27/2019 Routine gynecological examination 08/10/2014 07/27/2019 Overview: [facility] Screening for diabetes mellitus (DM) 08/10/2014 07/27/2019 Need for lipid screening 08/10/2014 019 Fibromyalgia 05/07/2014 07/27/2019 Other acquired deformity of toe 05/20/2009 07/27/2019 Backache, unspecified 06/19/2008 07/27/2019 Overview: Patient has degenerative disc disease and a slipped disc in her back. The symptoms began July 2011. 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 She sees Dr. Salter at [facility] for both of these issues. Patient has multiple questions regarding anesthesia during delivery due to her back issues. I have asked her to discuss this with Dr. Salter at an upcoming appointment and have him dictate a letter to Dr. Anderson with any concerns he may have. documented as of this encounter (statuses as of 01/22/2023) [facility]2015 History of Past illness Narrative* Problem Noted Date Resolved Date Attention and concentration deficit 03/19/2015 07/27/2019 Esophageal reflux 02/21/2015 07/27/2019 Routine gynecological examination 08/10/2014 07/27/2019 Overview: [facility] Screening for diabetes mellitus (DM) 08/10/2014 07/27/2019 Need for lipid screening 08/10/2014 019 Fibromyalgia 05/07/2014 07/27/2019 Other acquired deformity of toe 05/20/2009 07/27/2019 Backache, unspecified 06/19/2008 07/27/2019 Overview: Patient has degenerative disc disease and a slipped disc in her back. The symptoms began July 2011. 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 She sees Dr. Salter at [facility] for both of these issues. Patient has multiple questions regarding anesthesia during delivery due to her back issues. I have asked her to discuss this with Dr. Salter at an upcoming appointment and have him dictate a letter to Dr. Anderson with any concerns he may have. documented as of this encounter (statuses as of 01/26/2023) [facility]2015 History of Past illness Narrative* Problem Noted Date Resolved Date Attention and concentration deficit 03/19/2015 07/27/2019 Esophageal reflux 02/21/2015 07/27/2019 Routine gynecological examination 08/10/2014 07/27/2019 Overview: [facility] Screening for diabetes mellitus (DM) 08/10/2014 07/27/2019 Need for lipid screening 08/10/2014 019 Fibromyalgia 05/07/2014 07/27/2019 Other acquired deformity of toe 05/20/2009 07/27/2019 Backache, unspecified 06/19/2008 07/27/2019 Overview: Patient has degenerative disc disease and a slipped disc in her back. The symptoms began July 2011. 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 She sees Dr. Salter at [facility] for both of these issues. Patient has multiple questions regarding anesthesia during delivery due to her back issues. I have asked her to discuss this with Dr. Salter at an upcoming appointment and have him dictate a letter to Dr. Anderson with any concerns he may have. documented as of this encounter (statuses as of 01/28/2023) [facility]2015 History of Past illness Narrative* Problem Noted Date Resolved Date Attention and concentration deficit 03/19/2015 07/27/2019 Esophageal reflux 02/21/2015 07/27/2019 Routine gynecological examination 08/10/2014 07/27/2019 Overview: [facility] Screening for diabetes mellitus (DM) 08/10/2014 07/27/2019 Need for lipid screening 08/10/2014 019 Fibromyalgia 05/07/2014 07/27/2019 Other acquired deformity of toe 05/20/2009 07/27/2019 Backache, unspecified 06/19/2008 07/27/2019 Overview: Patient has degenerative disc disease and a slipped disc in her back. The symptoms began July 2011. 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 She sees Dr. Salter at [facility] for both of these issues. Patient has multiple questions regarding anesthesia during delivery due to her back issues. I have asked her to discuss this with Dr. Salter at an upcoming appointment and have him dictate a letter to Dr. Anderson with any concerns he may have. documented as of this encounter (statuses as of 02/06/2023) [facility] History of Past illness Narrative* Problem Noted Date Resolved Date Attention and concentration deficit 03/19/2015 07/27/2019 Esophageal reflux 02/21/2015 07/27/2019 Routine gynecological examination 08/10/2014 07/27/2019 Overview: Sees [facility] Screening for diabetes mellitus (DM) 08/10/2014 07/27/2019 Need for lipid screening 08/10/2014 019 Fibromyalgia 05/07/2014 07/27/2019 Other acquired deformity of toe 05/20/2009 07/27/2019 Backache, unspecified 06/19/2008 07/27/2019 Overview: Patient has degenerative disc disease and a slipped disc in her back. The symptoms began July 2011. 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 She sees Dr. Salter at [facility] for both of these issues. Patient has multiple questions regarding anesthesia during delivery due to her back issues. I have asked her to discuss this with Dr. Salter at an upcoming appointment and have him dictate a letter to Dr. Anderson with any concerns he may have. documented as of this encounter (statuses as of 02/13/2023) [facility] History of Past illness Narrative* Problem Noted Date Resolved Date Attention and concentration deficit 03/19/2015 07/27/2019 Esophageal reflux 02/21/2015 07/27/2019 Routine gynecological examination 08/10/2014 07/27/2019 Overview: [facility] Screening for diabetes mellitus (DM) 08/10/2014 07/27/2019 Need for lipid screening 08/10/2014 019 Fibromyalgia 05/07/2014 07/27/2019 Other acquired deformity of toe 05/20/2009 07/27/2019 Backache, unspecified 06/19/2008 07/27/2019 Overview: Patient has degenerative disc disease and a slipped disc in her back. The symptoms began July 2011. 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 She sees Dr. Salter at [facility] for both of these issues. Patient has multiple questions regarding anesthesia during delivery due to her back issues. I have asked her to discuss this with Dr. Salter at an upcoming appointment and have him dictate a letter to Dr. Anderson with any concerns he may have. documented as of this encounter (statuses as of 02/17/2023) [facility] History of Past illness Narrative* Problem Noted Date Resolved Date Attention and concentration deficit 03/19/2015 07/27/2019 Esophageal reflux 02/21/2015 07/27/2019 Routine gynecological examination 08/10/2014 07/27/2019 Overview: [facility] Screening for diabetes mellitus (DM) 08/10/2014 07/27/2019 Need for lipid screening 08/10/20142 019 Fibromyalgia 05/07/2014 07/27/2019 Other acquired deformity of toe 05/20/2009 07/27/2019 Backache, unspecified 06/19/2008 07/27/2019 Overview: Patient has degenerative disc disease and a slipped disc in her back. The symptoms began July 2011. 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 She sees Dr. Salter at [facility] for both of these issues. Patient has multiple questions regarding anesthesia during delivery due to her back issues. I have asked her to discuss this with Dr. Salter at an upcoming appointment and have him dictate a letter to Dr. Anderson with any concerns he may have. documented as of this encounter (statuses as of 03/04/2023) [facility]2015 History of Past illness Narrative* Problem Noted Date Resolved Date Attention and concentration deficit 03/19/2015 07/27/2019 Esophageal reflux 02/21/2015 07/27/2019 Routine gynecological examination 08/10/2014 07/27/2019 Overview: [facility] Screening for diabetes mellitus (DM) 08/10/2014 07/27/2019 Need for lipid screening 08/10/2014 019 Fibromyalgia 05/07/2014 07/27/2019 Other acquired deformity of toe 05/20/2009 07/27/2019 Backache, unspecified 06/19/2008 07/27/2019 Overview: Patient has degenerative disc disease and a slipped disc in her back. The symptoms began July 2011. 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 She sees Dr. Salter at [facility] for both of these issues. Patient has multiple questions regarding anesthesia during delivery due to her back issues. I have asked her to discuss this with Dr. Salter at an upcoming appointment and have him dictate a letter to Dr. Anderson with any concerns he may have. documented as of this encounter (statuses as of 03/29/2023) [facility]2015 History of Past illness Narrative* Problem Noted Date Resolved Date Attention and concentration deficit 03/19/2015 07/27/2019 Esophageal reflux 02/21/2015 07/27/2019 Routine gynecological examination 08/10/2014 07/27/2019 Overview: [facility] Screening for diabetes mellitus (DM) 08/10/2014 07/27/2019 Need for lipid screening 08/10/2014 019 Fibromyalgia 05/07/2014 07/27/2019 Other acquired deformity of toe 05/20/2009 07/27/2019 Backache, unspecified 06/19/2008 07/27/2019 Overview: Patient has degenerative disc disease and a slipped disc in her back. The symptoms began July 2011. 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 She sees Dr. Salter at [facility] for both of these issues. Patient has multiple questions regarding anesthesia during delivery due to her back issues. I have asked her to discuss this with Dr. Salter at an upcoming appointment and have him dictate a letter to Dr. Anderson with any concerns he may have. documented as of this encounter (statuses as of 04/02/2023) [facility] History of Past illness Narrative* Problem Noted Date Resolved Date Attention and concentration deficit 03/19/2015 07/27/2019 Esophageal reflux 02/21/2015 07/27/2019 Routine gynecological examination 08/10/2014 07/27/2019 Overview: [facility] Screening for diabetes mellitus (DM) 08/10/2014 07/27/2019 Need for lipid screening 08/10/2014 019 Fibromyalgia 05/07/2014 07/27/2019 Other acquired deformity of toe 05/20/2009 07/27/2019 Backache, unspecified 06/19/2008 07/27/2019 Overview: Patient has degenerative disc disease and a slipped disc in her back. The symptoms began July 2011. 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 She sees Dr. Salter at [facility] for both of these issues. Patient has multiple questions regarding anesthesia during delivery due to her back issues. I have asked her to discuss this with Dr. Salter at an upcoming appointment and have him dictate a letter to Dr. Anderson with any concerns he may have. documented as of this encounter (statuses as of 04/05/2023) [facility] History of Past illness Narrative* Problem Noted Date Resolved Date Attention and concentration deficit 03/19/2015 07/27/2019 Esophageal reflux 02/21/2015 07/27/2019 Routine gynecological examination 08/10/2014 07/27/2019 Overview: [facility] Screening for diabetes mellitus (DM) 08/10/2014 07/27/2019 Need for lipid screening 08/10/2014 019 Fibromyalgia 05/07/2014 07/27/2019 Other acquired deformity of toe 05/20/2009 07/27/2019 Backache, unspecified 06/19/2008 07/27/2019 Overview: Patient has degenerative disc disease and a slipped disc in her back. The symptoms began July 2011. 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 She sees Dr. Salter at [facility] for both of these issues. Patient has multiple questions regarding anesthesia during delivery due to her back issues. I have asked her to discuss this with Dr. Salter at an upcoming appointment and have him dictate a letter to Dr. Anderson with any concerns he may have. documented as of this encounter (statuses as of 04/26/2023) [facility] History of Past illness Narrative* Problem Noted Date Resolved Date Attention and concentration deficit 03/19/2015 07/27/2019 Esophageal reflux 02/21/2015 07/27/2019 Routine gynecological examination 08/10/2014 07/27/2019 Overview: Sees [facility] Screening for diabetes mellitus (DM) 08/10/2014 07/27/2019 Need for lipid screening 08/10/2014 019 Fibromyalgia 05/07/2014 07/27/2019 Other acquired deformity of toe 05/20/2009 07/27/2019 Backache, unspecified 06/19/2008 07/27/2019 Overview: Patient has degenerative disc disease and a slipped disc in her back. The symptoms began July 2011. 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 She sees Dr. Salter at [facility] for both of these issues. Patient has multiple questions regarding anesthesia during delivery due to her back issues. I have asked her to discuss this with Dr. Salter at an upcoming appointment and have him dictate a letter to Dr. Anderson with any concerns he may have. documented as of this encounter (statuses as of 04/27/2023) [facility] History of Past illness Narrative* Problem Noted Date Resolved Date Attention and concentration deficit 03/19/2015 07/27/2019 Esophageal reflux 02/21/2015 07/27/2019 Routine gynecological examination 08/10/2014 07/27/2019 Overview: [facility] Screening for diabetes mellitus (DM) 08/10/2014 07/27/2019 Need for lipid screening 08/10/2014 019 Fibromyalgia 05/07/2014 07/27/2019 Other acquired deformity of toe 05/20/2009 07/27/2019 Backache, unspecified 06/19/2008 07/27/2019 Overview: Patient has degenerative disc disease and a slipped disc in her back. The symptoms began July 2011. 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 She sees Dr. Salter at [facility] for both of these issues. Patient has multiple questions regarding anesthesia during delivery due to her back issues. I have asked her to discuss this with Dr. Salter at an upcoming appointment and have him dictate a letter to Dr. Anderson with any concerns he may have. documented as of this encounter (statuses as of 04/28/2023) [facility] History of Past illness Narrative* Problem Noted Date Diagnosed Date Resolved Date Attention and concentration deficit 03/19/2015 07/27/2019 Esophageal reflux 02/21/2015 07/27/2019 Routine gynecological examination 08/10/2014 07/27/2019 Overview: [facility] Screening for diabetes mellitus (DM) 08/10/2014 07/27/2019 Need for lipid screening 08/10/201403/2019 Fibromyalgia 05/07/2014 07/27/2019 Other acquired deformity of toe 05/20/2009 07/27/2019 Backache, unspecified 06/19/20082018 Overview: Patient has degenerative disc disease and a slipped disc in her back. The symptoms began July 2011. 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 She sees Dr. Salter at [facility] for both of these issues. Patient has multiple questions regarding anesthesia during delivery due to her back issues. I have asked her to discuss this with Dr. Salter at an upcoming appointment and have him dictate a letter to Dr. Anderson with any concerns he may have. documented as of this encounter (statuses as of 06/08/2023) [facility] History of Past illness Narrative* Problem Noted Date Diagnosed Date Resolved Date Attention and concentration deficit 03/19/2015 07/27/2019 Esophageal reflux 02/21/2015 07/27/2019 Routine gynecological examination 08/10/2014 07/27/2019 Overview: [facility] Screening for diabetes mellitus (DM) 08/10/2014 07/27/2019 Need for lipid screening 08/10/201403/2019 Fibromyalgia 05/07/2014 07/27/2019 Other acquired deformity of toe 05/20/2009 07/27/2019 Backache, unspecified 06/19/20082018 Overview: Patient has degenerative disc disease and a slipped disc in her back. The symptoms began July 2011. 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 She sees Dr. Salter at [facility] for both of these issues. Patient has multiple questions regarding anesthesia during delivery due to her back issues. I have asked her to discuss this with Dr. Salter at an upcoming appointment and have him dictate a letter to Dr. Anderson with any concerns he may have. documented as of this encounter (statuses as of 07/09/2023) [facility] History of Past illness Narrative* Problem Noted Date Diagnosed Date Resolved Date Attention and concentration deficit 03/19/2015 07/27/2019 Esophageal reflux 02/21/2015 07/27/2019 Routine gynecological examination 08/10/2014 07/27/2019 Overview: [facility] Screening for diabetes mellitus (DM) 08/10/2014 07/27/2019 Need for lipid screening 08/10/201403/2019 Fibromyalgia 05/07/2014 07/27/2019 Other acquired deformity of toe 05/20/2009 07/27/2019 Backache, unspecified 06/19/20082018 Overview: Patient has degenerative disc disease and a slipped disc in her back. The symptoms began July 2011. 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 She sees Dr. Salter at [facility] for both of these issues. Patient has multiple questions regarding anesthesia during delivery due to her back issues. I have asked her to discuss this with Dr. Salter at an upcoming appointment and have him dictate a letter to Dr. Anderson with any concerns he may have. documented as of this encounter (statuses as of 09/16/2023) [facility] History of Past illness Narrative* Problem Noted Date Diagnosed Date Resolved Date Attention and concentration deficit 03/19/2015 07/27/2019 Esophageal reflux 02/21/2015 07/27/2019 Routine gynecological examination 08/10/2014 07/27/2019 Overview: [facility] Screening for diabetes mellitus (DM) 08/10/2014 07/27/2019 Need for lipid screening 08/10/201403/2019 Fibromyalgia 05/07/2014 07/27/2019 Other acquired deformity of toe 05/20/2009 07/27/2019 Backache, unspecified 06/19/20082018 Overview: Patient has degenerative disc disease and a slipped disc in her back. The symptoms began July 2011. 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 She sees Dr. Salter at [facility] for both of these issues. Patient has multiple questions regarding anesthesia during delivery due to her back issues. I have asked her to discuss this with Dr. Salter at an upcoming appointment and have him dictate a letter to Dr. Anderson with any concerns he may have. documented as of this encounter (statuses as of 09/16/2023) [facility] History of Past illness Narrative* Problem Noted Date Diagnosed Date Resolved Date Attention and concentration deficit 03/19/2015 07/27/2019 Esophageal reflux 02/21/2015 07/27/2019 Routine gynecological examination 08/10/2014 07/27/2019 Overview: [facility] Screening for diabetes mellitus (DM) 08/10/2014 07/27/2019 Need for lipid screening 08/10/201403/2019 Fibromyalgia 05/07/2014 07/27/2019 Other acquired deformity of toe 05/20/2009 07/27/2019 Backache, unspecified 06/19/20082018 Overview: Patient has degenerative disc disease and a slipped disc in her back. The symptoms began July 2011. 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 She sees Dr. Salter at [facility] for both of these issues. Patient has multiple questions regarding anesthesia during delivery due to her back issues. I have asked her to discuss this with Dr. Salter at an upcoming appointment and have him dictate a letter to Dr. Anderson with any concerns he may have. documented as of this encounter (statuses as of 09/26/2023) [facility]04-[facility]-2015 History of Past illness Narrative* Problem Noted Date Diagnosed Date Resolved Date Attention and concentration deficit 03/19/2015 07/27/2019 Esophageal reflux 02/21/2015 07/27/2019 Routine gynecological examination 08/10/2014 07/27/2019 Overview: Sees [facility] Screening for diabetes mellitus (DM) 08/10/2014 07/27/2019 Need for lipid screening 08/10/201403/2019 Fibromyalgia 05/07/2014 07/27/2019 Other acquired deformity of toe 05/20/2009 07/27/2019 Backache, unspecified 06/19/20082018 Overview: Patient has degenerative disc disease and a slipped disc in her back. The symptoms began July 2011. 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 She sees Dr. Salter at [facility] for both of these issues. Patient has multiple questions regarding anesthesia during delivery due to her back issues. I have asked her to discuss this with Dr. Salter at an upcoming appointment and have him dictate a letter to Dr. Anderson with any concerns he may have. documented as of this encounter (statuses as of 10/04/2023) [facility]04[facility]2015 History of Past illness Narrative* Problem Noted Date Diagnosed Date Resolved Date Attention and concentration deficit 03/19/2015 07/27/2019 Esophageal reflux 02/21/2015 07/27/2019 Routine gynecological examination 08/10/2014 07/27/2019 Overview: [facility] Screening for diabetes mellitus (DM) 08/10/2014 07/27/2019 Need for lipid screening 08/10/201403/2019 Fibromyalgia 05/07/2014 07/27/2019 Other acquired deformity of toe 05/20/2009 07/27/2019 Backache, unspecified 06/19/20082018 Overview: Patient has degenerative disc disease and a slipped disc in her back. The symptoms began July 2011. 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 She sees Dr. Salter at [facility] for both of these issues. Patient has multiple questions regarding anesthesia during delivery due to her back issues. I have asked her to discuss this with Dr. Salter at an upcoming appointment and have him dictate a letter to Dr. Anderson with any concerns he may have. documented as of this encounter (statuses as of 11/06/2023) [facility] History of Past illness Narrative* Problem Noted Date Diagnosed Date Resolved Date Attention and concentration deficit 03/19/2015 07/27/2019 Esophageal reflux 02/21/2015 07/27/2019 Routine gynecological examination 08/10/2014 07/27/2019 Overview: [facility] Screening for diabetes mellitus (DM) 08/10/2014 07/27/2019 Need for lipid screening 08/10/201403/2019 Fibromyalgia 05/07/2014 07/27/2019 Other acquired deformity of toe 05/20/2009 07/27/2019 Backache, unspecified 06/19/20082018 Overview: Patient has degenerative disc disease and a slipped disc in her back. The symptoms began July 2011. 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 She sees Dr. Salter at [facility] for both of these issues. Patient has multiple questions regarding anesthesia during delivery due to her back issues. I have asked her to discuss this with Dr. Salter at an upcoming appointment and have him dictate a letter to Dr. Anderson with any concerns he may have. documented as of this encounter (statuses as of 01/03/2024) [facility]04[facility]-2015 History of Past illness Narrative* Problem Noted Date Diagnosed Date Resolved Date Attention and concentration deficit 03/19/2015 07/27/2019 Esophageal reflux 02/21/2015 07/27/2019 Routine gynecological examination 08/10/2014 07/27/2019 Overview: [facility] Screening for diabetes mellitus (DM) 08/10/2014 07/27/2019 Need for lipid screening 08/10/201403/2019 Fibromyalgia 05/07/2014 07/27/2019 Other acquired deformity of toe 05/20/2009 07/27/2019 Backache, unspecified 06/19/20082018 Overview: Patient has degenerative disc disease and a slipped disc in her back. The symptoms began July 2011. 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 She sees Dr. Salter at [facility] for both of these issues. Patient has multiple questions regarding anesthesia during delivery due to her back issues. I have asked her to discuss this with Dr. Salter at an upcoming appointment and have him dictate a letter to Dr. Anderson with any concerns he may have. documented as of this encounter (statuses as of 01/07/2024) [facility] History of Past illness Narrative* Problem Noted Date Diagnosed Date Resolved Date Attention and concentration deficit 03/19/2015 07/27/2019 Esophageal reflux 02/21/2015 07/27/2019 Routine gynecological examination 08/10/2014 07/27/2019 Overview: [facility] Screening for diabetes mellitus (DM) 08/10/2014 07/27/2019 Need for lipid screening 08/10/201403/2019 Fibromyalgia 05/07/2014 07/27/2019 Other acquired deformity of toe 05/20/2009 07/27/2019 Backache, unspecified 06/19/20082018 Overview: Patient has degenerative disc disease and a slipped disc in her back. The symptoms began July 2011. 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 She sees Dr. Salter at [facility] for both of these issues. Patient has multiple questions regarding anesthesia during delivery due to her back issues. I have asked her to discuss this with Dr. Salter at an upcoming appointment and have him dictate a letter to Dr. Anderson with any concerns he may have. documented as of this encounter (statuses as of 01/07/2024) [facility] History of Past illness Narrative* Problem Noted Date Diagnosed Date Resolved Date Attention and concentration deficit 03/19/2015 07/27/2019 Esophageal reflux 02/21/2015 07/27/2019 Routine gynecological examination 08/10/2014 07/27/2019 Overview: [facility] Screening for diabetes mellitus (DM) 08/10/2014 07/27/2019 Need for lipid screening 08/10/201403/2019 Fibromyalgia 05/07/2014 07/27/2019 Other acquired deformity of toe 05/20/2009 07/27/2019 Backache, unspecified 06/19/20082018 Overview: Patient has degenerative disc disease and a slipped disc in her back. The symptoms began July 2011. 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 She sees Dr. Salter at [facility] for both of these issues. Patient has multiple questions regarding anesthesia during delivery due to her back issues. I have asked her to discuss this with Dr. Saltre at an upcoming appointment and have him dictate a letter to Dr. Anderson with any concerns he may have. documented as of this encounter (statuses as of 01/13/2024) [facility]04[facility]2015 History of Past illness Narrative* Problem Noted Date Diagnosed Date Resolved Date Attention and concentration deficit 03/19/2015 07/27/2019 Esophageal reflux 02/21/2015 07/27/2019 Routine gynecological examination 08/10/2014 07/27/2019 Overview: [facility] Screening for diabetes mellitus (DM) 08/10/2014 07/27/2019 Need for lipid screening 08/10/201403/2019 Fibromyalgia 05/07/2014 07/27/2019 Other acquired deformity of toe 05/20/2009 07/27/2019 Backache, unspecified 06/19/20082018 Overview: Patient has degenerative disc disease and a slipped disc in her back. The symptoms began July 2011. 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 She sees Dr. Salter at [facility] for both of these issues. Patient has multiple questions regarding anesthesia during delivery due to her back issues. I have asked her to discuss this with Dr. Salter at an upcoming appointment and have him dictate a letter to Dr. Anderson with any concerns he may have. 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 neoplasm of thyroid gland Sialoadenitis of submandibular gland Sialoadenitis [facility] Diagnosis Sialadenitis- Primary Sialoadenitis documented in this encounter [facility] note* Diagnosis SI (sacroiliac) joint dysfunction- Primary Disorders of sacrum Lumbar degenerative disc disease Degeneration of lumbar or lumbosacral intervertebral disc [facility] Diagnosis SI (sacroiliac) joint dysfunction- Primary Disorders of sacrum Sacroiliitis, not elsewhere classified (HCC) Sacroiliitis, not elsewhere classified documented in this encounter [facility] note* Diagnosis Sialadenitis Sialoadenitis [facility] Diagnosis SI (sacroiliac) joint dysfunction- Primary Disorders of sacrum Sacroiliitis, not elsewhere classified (HCC) Sacroiliitis, not elsewhere classified SI (sacroiliac) joint dysfunction Disorders of sacrum Sacroiliitis, not elsewhere classified (HCC) Sacroiliitis, not elsewhere classified documented in this encounter [facility] note* Diagnosis SI (sacroiliac) joint dysfunction- Primary Disorders of sacrum Sacroiliitis, not elsewhere classified (HCC) Sacroiliitis, not elsewhere classified [facility] Diagnosis Sialadenitis- Primary Sialoadenitis documented in this encounter [facility] note* Diagnosis SI (sacroiliac) joint dysfunction- Primary Disorders of sacrum Sacroiliitis, not elsewhere classified (HCC) Sacroiliitis, not elsewhere classified SI (sacroiliac) joint dysfunction Disorders of sacrum Sacroiliitis, not elsewhere classified (HCC) Sacroiliitis, not elsewhere classified [facility] Diagnosis Hypertension, essential- Primary Unspecified essential hypertension Weight gain Abnormal weight gain Primary thyroid papillary carcinoma (HCC) Malignant neoplasm of thyroid gland Encounter for lipid screening for cardiovascular disease Screening for lipoid disorders Screening for diabetes mellitus SI (sacroiliac) joint dysfunction Disorders of sacrum Sacroiliitis, not elsewhere classified (HCC) Sacroiliitis, not elsewhere classified documented in this encounter [facility] note* Diagnosis SI (sacroiliac) joint dysfunction Disorders of sacrum Lumbar degenerative disc disease Degeneration of lumbar or lumbosacral intervertebral disc [facility] Diagnosis 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 Postsurgical hypothyroidism Sialoadenitis of submandibular gland Sialoadenitis documented in this encounter [facility] note* Diagnosis Bloating- Primary Flatulence, eructation, and gas pain [facility] Diagnosis SI (sacroiliac) joint dysfunction Disorders of sacrum Lumbar degenerative disc disease Degeneration of lumbar or lumbosacral intervertebral disc [facility] Diagnosis Lumbar degenerative disc disease- Primary Degeneration of lumbar or lumbosacral intervertebral disc SI (sacroiliac) joint dysfunction Disorders of sacrum Sacroiliitis, not elsewhere classified (HCC) Sacroiliitis, not elsewhere classified documented in this encounter [facility] note* Diagnosis Bacterial sinusitis- Primary Unspecified sinusitis (chronic) [facility] Diagnosis Lumbar degenerative disc disease- Primary Degeneration of lumbar or lumbosacral intervertebral disc SI (sacroiliac) joint dysfunction Disorders of sacrum Sacroiliitis, not elsewhere classified (HCC) Sacroiliitis, not elsewhere classified SI (sacroiliac) joint dysfunction Disorders of sacrum Sacroiliitis, not elsewhere classified (HCC) Sacroiliitis, not elsewhere classified documented in this encounter [facility] note* Diagnosis SI (sacroiliac) joint dysfunction Disorders of sacrum Lumbar degenerative disc disease Degeneration of lumbar or lumbosacral intervertebral disc [facility] Diagnosis Hypertension, essential- Primary Unspecified essential [...] for diabetes mellitus [facility] Diagnosis Post-surgical hypothyroidism- Primary Postsurgical hypothyroidism Adverse effect of treatment, subsequent encounter Adverse effect of treatment, initial encounter documented in this encounter [facility] note* Diagnosis SI (sacroiliac) joint dysfunction Disorders of sacrum Lumbar degenerative disc disease Degeneration of lumbar or lumbosacral intervertebral disc documented in this encounter [facility] note* Diagnosis SI (sacroiliac) joint dysfunction- Primary Disorders of sacrum Sacroiliitis, not elsewhere classified (HCC) Sacroiliitis, not elsewhere classified SI (sacroiliac) joint dysfunction Disorders of sacrum Sacroiliitis, not elsewhere classified (HCC) Sacroiliitis, not elsewhere classified documented in this encounter [facility] note* Diagnosis Spinal stenosis of lumbar region, unspecified whether neurogenic claudication present- Primary SI (sacroiliac) joint dysfunction Disorders of sacrum Lumbar degenerative disc disease Degeneration of lumbar or lumbosacral intervertebral disc documented in this encounter [facility] note* Diagnosis SI (sacroiliac) joint dysfunction- Primary Disorders of sacrum SI (sacroiliac) joint dysfunction Disorders of sacrum [facility] Diagnosis Adverse effect of treatment, initial encounter SI (sacroiliac) joint dysfunction Disorders of sacrum [facility] Diagnosis Sore throat- Primary Acute pharyngitis Bronchitis Bronchitis, not specified as acute or chronic Lower resp. tract infection Other diseases of respiratory system, not elsewhere classified SI (sacroiliac) joint dysfunction Disorders of sacrum [facility] Diagnosis Plantar wart of left foot- Primary Plantar wart SI (sacroiliac) joint dysfunction Disorders of sacrum [facility] Diagnosis Sore throat- Primary Acute pharyngitis URI, acute Acute upper respiratory infections of unspecified site [facility] Diagnosis Otalgia of both ears- Primary Otalgia, unspecified Flu Influenza with other respiratory manifestations [facility] Diagnosis SI (sacroiliac) joint dysfunction- Primary Disorders of sacrum Lumbar degenerative disc disease Degeneration of lumbar or lumbosacral intervertebral disc Spinal stenosis of lumbar region, unspecified whether neurogenic claudication present [facility]* Diagnosis Tinnitus of right ear- Primary Unspecified tinnitus Right ear pain Otalgia, unspecified Neoplasm of uncertain behavior of skin of back Neoplasm of uncertain behavior of skin [facility]* Diagnosis SI (sacroiliac) joint dysfunction- Primary Disorders of sacrum SI (sacroiliac) joint dysfunction Disorders of sacrum [facility] Diagnosis Post-surgical hypothyroidism- Primary Postsurgical hypothyroidism Hypertension, essential Unspecified essential hypertension Vitamin D deficiency Unspecified vitamin D deficiency Encounter for screening for diabetes mellitus Screening for diabetes mellitus SI (sacroiliac) joint dysfunction Disorders of sacrum [facility] Diagnosis Hypertension, essential- Primary Unspecified essential [...] Disorders of sacrum [facility] Diagnosis Exercise-induced asthma Exercise induced bronchospasm SOB (shortness of breath) Shortness of breath SI (sacroiliac) joint dysfunction Disorders of sacrum [facility] Diagnosis 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 [facility]urgical [facility]othy[facility] Pain in left lower leg- Primary Pain in left lower leg SI (sacroiliac) joint dysfunction Disorders of sacrum [facility] Diagnosis Pain in left lower leg SI (sacroiliac) joint dysfunction Disorders of sacrum [facility] Diagnosis Spinal stenosis of lumbar region, unspecified whether neurogenic claudication present- Primary Radiculopathy, lumbar region Thoracic or lumbosacral neuritis or radiculitis, unspecified SI (sacroiliac) joint dysfunction Disorders of sacrum [facility] Diagnosis Spinal stenosis of lumbar region, unspecified whether neurogenic claudication present- Primary SI (sacroiliac) joint dysfunction Disorders of sacrum Radiculopathy, lumbar region Thoracic or lumbosacral neuritis or radiculitis, unspecified [facility]* Diagnosis Neoplasm of uncertain behavior of skin of back- Primary Neoplasm of uncertain behavior of skin Dermatofibroma Benign neoplasm of skin, site unspecified [facility] Diagnosis Dermatofibroma- Primary Benign neoplasm of skin, site unspecified [facility] Diagnosis Preoperative examination- Primary Preoperative examination, [...] lumbosacral intervertebral disc [facility] Diagnosis Preoperative examination- Primary Preoperative examination, [...] injury, initial encounter [facility] Diagnosis Preoperative examination- Primary Preoperative examination, [...] of unspecified site [facility] Diagnosis Preoperative examination- Primary Preoperative examination, [...] related to employment [facility] Diagnosis Preoperative examination- Primary Preoperative examination, [...] discogenic back pain [facility] Diagnosis Preoperative examination- Primary Preoperative examination, [...] Disorders of sacrum documented in this encounter [facility] note* Diagnosis Preoperative examination- Primary Preoperative examination, [...] Disorders of sacrum documented in this encounter [facility] note* Diagnosis Preoperative examination- Primary Preoperative examination, [...] Disorders of sacrum [facility] Diagnosis Preoperative examination- Primary Preoperative examination, [...] Disorders of sacrum documented in this encounter [facility] note* Diagnosis Preoperative examination- Primary Preoperative examination, [...] Disorders of sacrum [facility] Diagnosis Preoperative examination- Primary Preoperative examination, [...] discogenic back pain documented in this encounter [facility] note* Diagnosis Preoperative examination- Primary Preoperative examination, [...] Mixed headache Headache [facility] Diagnosis Preoperative examination- Primary Preoperative examination, [...] Unspecified sinusitis (chronic) [facility] Diagnosis Preoperative examination- Primary Preoperative examination, [...] discogenic back pain [facility] Diagnosis Preoperative examination- Primary Preoperative examination, [...] Disorders of sacrum documented in this encounter [facility] note* Diagnosis Preoperative examination- Primary Preoperative examination, [...] Disorders of sacrum documented in this encounter [facility] note* Diagnosis Preoperative examination- Primary Preoperative examination, [...] Disorders of sacrum documented in this encounter [facility] note* Diagnosis Preoperative examination- Primary Preoperative examination, [...] current) unspecified Anxiety, generalized Generalized anxiety disorder Bilateral pleural effusion- Primary Unspecified pleural effusion Post-surgical hypothyroidism Postsurgical hypothyroidism Bilateral pleural effusion Unspecified pleural effusion documented in this encounter [facility] note* Diagnosis Preoperative examination- Primary Preoperative examination, [...] current) unspecified Anxiety, generalized Generalized anxiety disorder Bilateral pleural effusion Unspecified pleural effusion [facility] Diagnosis Preoperative examination- Primary Preoperative examination, [...] current) unspecified Anxiety, generalized Generalized anxiety disorder Patient left before evaluation by physician- Primary [facility] Diagnosis Preoperative examination- Primary Preoperative examination, [...] current) unspecified Anxiety, generalized Generalized anxiety disorder SOB (shortness of breath)- Primary Shortness of breath Dark urine Other nonspecific finding on examination of urine Nausea Nausea alone Nausea and vomiting, unspecified vomiting type RUQ pain Abdominal pain, right upper quadrant Right flank pain Abdominal pain, unspecified site Gastroparesis Elevated blood pressure reading without diagnosis of hypertension Proteinuria, unspecified type [facility] Diagnosis Preoperative examination- Primary Preoperative examination, [...] current) unspecified Anxiety, generalized Generalized anxiety disorder Nausea and vomiting, unspecified vomiting type- Primary Right flank pain Abdominal pain, unspecified site RUQ pain Abdominal pain, right upper quadrant Renal stones Calculus of kidney [facility] Diagnosis Preoperative examination- Primary Preoperative examination, [...] current) unspecified Anxiety, generalized Generalized anxiety disorder Nausea and vomiting, unspecified vomiting type Right flank pain Abdominal pain, unspecified site RUQ pain Abdominal pain, right upper quadrant Renal stones Calculus of kidney [facility] Diagnosis Preoperative examination- Primary Preoperative examination, [...] current) unspecified Anxiety, generalized Generalized anxiety disorder Kidney stones- Primary Calculus of kidney Right flank pain Abdominal pain, unspecified site [facility] this [facility] Diagnosis Preoperative examination- Primary Preoperative examination, [...] current) unspecified Anxiety, generalized Generalized anxiety disorder Kidney stones- Primary Calculus of kidney Right flank pain Abdominal pain, unspecified site Hematuria, unspecified type [facility] Diagnosis Preoperative examination- Primary Preoperative examination, [...] Disorders of sacrum [facility] Diagnosis Preoperative examination- Primary Preoperative examination, [...] current) unspecified Anxiety, generalized Generalized anxiety disorder Bilateral nephrolithiasis- Primary Right flank pain Abdominal pain, unspecified site History of ureteroscopy Abnormal finding on urinalysis Other nonspecific finding on examination of urine Bilateral nephrolithiasis documented in this encounter [facility] note* Diagnosis Preoperative examination- Primary Preoperative examination, [...] current) unspecified Anxiety, generalized Generalized anxiety disorder Bilateral nephrolithiasis documented in this encounter [facility] note* Diagnosis Preoperative examination- Primary Preoperative examination, [...] current) unspecified Anxiety, generalized Generalized anxiety disorder Bilateral nephrolithiasis- Primary Right flank pain Abdominal pain, unspecified site Bilateral nephrolithiasis Right flank pain Abdominal pain, unspecified site documented in this encounter [facility] note* Diagnosis Encounter for follow-up- [facility] Consultation (Routine) - New Request Specialty Diagnoses / Procedures Referred By Kin t Referred To Contact Otolaryngology Diagnoses Sialoadenitis of submandibular gland Caitlyn Rivera MD [address] [place] [address] Osvaldo Tapia MD [address] [place] [address] Referral ID Status Reason Start Date Expiration Date V isits Requested Visits Authorized [id number] New Request 03/18/2022 04/12/2023 1 1 * Radiology (Routine) - New Request Specialty Diagnoses / Procedures Referred By Kin samuel Referred To Contact Diagnoses Papillary thyroid carcinoma Procedures [facility]ING [place] [address] [place] [address] [place] [address] Referral ID Status Reason Start Date Expiration Date V isits Requested Visits Authorized [id number] New Request 03/18/2022 04/12/2023 1 1 [facility] Outpatient Procedure (Routine) - Authorized Specialty Diagnoses / Procedures Referred By Kin t Referred To Contact [facility] Diagnoses Exercise-induced asthma SOB (shortness of breath) Procedures SPIROMETRY - BASELINE AND POST DILATOR BRNCDILAT RSPSE SPMTRY PRE&POST-BRNCDILAT ADMNagi Ortega MD [address] [place] [address] [facility] [place] [address] [place] [address] Referral ID Status Reason Start Date Expiration Date Visits Requested Visits Authorized [id number] Authorized Auto-Generat ed Referral 04/25/2024 05/25/2025 1 1 * Consult, Test, Treat (Routine) - Authorized Specialty Diagnoses / Procedures Referred By Contac t Referred To Contact Urology Diagnoses Renal stones Procedures CONSULT TO UROLOGY OFFICE/OUTPATIENT [facility] 60 MINUTES Nagi Red MD [address] [place] [address] Referral ID Status Reason Start Date Expiration Date Visits Requested Visits Authorized [id number] Authorized PCP Requested Referral 04/25/2024 04/25/2025 1 1 * Consult, Test, Treat (Routine) - Authorized Specialty Diagnoses / Procedures Referred By Contac t Referred To Contact Diagnoses Encounter for gynecological examination Procedures CONSULT TO COMPLEX HUMAN RESOURCES MANAGER OFFICE/OUTPATIENT [facility] 60 MINUTES Nagi Red MD [address] [place] [address] Referral ID Status Reason Start Date Expiration Date Visits Requested Visits Authorized [id number] Authorized PCP Requested Referral Auto-Generate d Referral 04/25/2024 04/25/2025 1 1 [facility] for referral (narrative)* Diagnostic Procedure Only (Urgent) - Closed Specialty Diagnoses / Procedures Referred By Contac t Referred To Contact US IMAGING Diagnoses Pain in left lower leg Procedures US DVT LOWER LEFT DUP-SCAN XTR VEINS UNILATERAL/LIMITED STUDY Sakshi Pandey APRN.CNP [address] [place] [address] [place] [address] Referral ID Status Reason Start Date Expiration Date V isits Requested Visits Authorized [id number] Closed Auto-Generate d Referral 05/12/2024 06/11/2025 1 1 [facility] Diagnostic Procedure Only (Urgent) - Closed Specialty Diagnoses / Procedures Referred By Contac t Referred To Contact US IMAGING Diagnoses Pain in left lower leg Procedures US DVT LOWER LEFT DUP-SCAN XTR VEINS UNILATERAL/LIMITED STUDY Sakshi Pandey APRN.DRAMATIC ARTS HISTORIAN [address] [place] [address] [place] [address] Referral ID Status Reason Start Date Expiration Date V isits Requested Visits Authorized [id number] Closed Auto-Generate d Referral 05/12/2024 06/11/2025 1 1 [facility] for referral (narrative)* Diagnostic Procedure Only (Routine) - Closed Specialty Diagnoses / Procedures Referred By Contac t Referred To Contact XR IMAGING Diagnoses Lumbar degenerative disc disease Procedures XR LUMBAR PARS DEFECT 4V AP/LAT/BOTH OBL RADEX SPINE LUMBOSACRAL MINIMUM 4 VIEWS Carlie Brownlee APRN.DRAMATIC ARTS HISTORIAN [address] [place] [address] [place] [address] Referral ID Status Reason Start Date Expiration Date V isits Requested Visits Authorized [id number] Closed Auto-Generate d Referral 03/01/2023 03/30/2024 1 1 [facility] for referral (narrative)* Diagnostic Procedure Only (Urgent) - Closed Specialty Diagnoses / Procedures Referred By Contac t Referred To Contact XR IMAGING Diagnoses Left ankle injury, initial encounter Procedures XR ANKLE GENERAL 3V AP/LAT/OBL LT X-RAY ANKLE MINIMUM 3 VIEWS Shannon Hawkins PA-C [address] [place] [address] [place] [address] Referral ID Status Reason Start Date Expiration Date V isits Requested Visits Authorized [id number] Closed Auto-Generate d Referral 07/17/2021 08/16/2022 1 1 [facility] for visit Narrative* Diagnostic Procedure Only (Urgent) - Closed Specialty Diagnoses / Procedures Referred By Contac t Referred To Contact US IMAGING Diagnoses Pain in left lower leg Procedures US DVT LOWER LEFT DUP-SCAN XTR VEINS UNILATERAL/LIMITED STUDY Podlogar, Sakshi, VINYL INSTALLER.DRAMATIC ARTS HISTORIAN [address] [place] [address] [place] [address] Referral ID Status Reason Start Date Expiration Date V isits Requested Visits Authorized [id number] Closed Auto-Generate d Referral 05/12/2024 06/11/2025 1 1 [facility] for visit Narrative* Diagnostic Procedure Only (Routine) - Closed Specialty Diagnoses / Procedures Referred By Contac t Referred To Contact XR IMAGING Diagnoses Lumbar degenerative disc disease Procedures XR LUMBAR PARS DEFECT 4V AP/LAT/BOTH OBL RADEX SPINE LUMBOSACRAL MINIMUM 4 VIEWS Carlie Brownlee, VINYL INSTALLER.DRAMATIC ARTS HISTORIAN [address] [place] [address] [place] [address] Referral ID Status Reason Start Date Expiration Date V isits Requested Visits Authorized [id number] Closed Auto-Generate d Referral 03/01/2023 03/30/2024 1 1 [facility] for visit Narrative* Diagnostic Procedure Only (Urgent) - Closed Specialty Diagnoses / Procedures Referred By Contac t Referred To Contact XR IMAGING Diagnoses Left ankle injury, initial encounter Procedures XR ANKLE GENERAL 3V AP/LAT/OBL LT X-RAY ANKLE MINIMUM 3 VIEWS Shannon Hawkins, PA-C [address] [place] [address] [place] [address] Referral ID Status Reason Start Date Expiration Date V isits Requested Visits Authorized [id number] Closed Auto-Generate d Referral 07/17/2021 08/16/2022 1 1 [facility] for visit Narrative* MRI/CT (Urgent) - Pending Review Specialty Diagnoses / Procedures Referred By Contac t Referred To Contact CT IMAGING Diagnoses Bilateral nephrolithiasis Procedures CT FLANK WO IVCON CT ABD & PELVIS W/O CONTRAST Greta Templeton, [address] [place] [address] Phone: tel: fax: [place] [address] Referral ID Status Reason Start Date Expiration Date Visits Requested Visits Authorized [id number] Pending Review Auto-Generate d Referral Clearance Not Met -Financial Clearance Bypassed or Pt Declined to Pay 06/15/2025 07/15/2026 1 1 [facility] Summary Purpose Family History No Family History Records FoundNo Family History Records FoundNo Family History Records FoundNo Family History Records FoundNo Family History Records FoundNo Family History Records FoundNo Family History Records FoundNo Family History Records FoundNo Family History Records FoundNo Family History Records FoundNo Family History Records Found Advance Directives No Advanced Directives Records FoundDocuments on File Type Date Recorded 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 Advance Directive(s) Advance Directive(s) 12/16/2021 [...] Documents on File Type Date Recorded 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 Advance Directive(s) Advance Directive(s) 05/01/2022 [...] Documents on File Type Date Recorded 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 Advance Directive(s) Advance Directive(s) 05/21/2022 [...] Documents on File Type Date Recorded 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 Advance Directive(s) Advance Directive(s) 06/04/2022 [...] Documents on File Type Date Recorded 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 Advance Directive(s) 07/27/2019 10:42 AM Documents on File Type Date Recorded 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 Advance Directive(s) 07/27/2019 10:42 AM Latest Code Status on File Code Status Date Activated Date Inactivated Comments Full Code 06/05/2022 8:03 AM Date Activated Date Inactivated Comments 06/05/2022 8:03 AM Date Activated Date Inactivated Comments 06/05/2022 8:03 AM Reason for Referral Specialty Diagnoses / Procedures Referred By Contac t Referred To Contact Diagnoses Sialadenitis Procedures MRI SIALOGRAM MO MRI, FACE, NECK, COMBO Emery, Karen Barrett, VINYL INSTALLER-DRAMATIC ARTS HISTORIAN [address] [place] [address] Referral ID Status Reason Start Date Expiration Date Visits Requested Visits Authorized [id number] Authorized - Bimal 03/26/2022 04/20/2023 1 1 Referral ID Status Reason Start Date Expiration Date Visits Re quested Visits Authorized [id number] Closed 03/26/2022 04/20/2023 1 1 Specialty Diagnoses / Procedures Referred By Contac t Referred To Contact Christine Dean PA-C [address] [place] [address] Referral ID Status Reason Start Date Expiration Date Visits Re quested Visits Authorized [id number] Closed 1 1 Specialty Diagnoses / Procedures Referred By Contac t Referred To Contact Diagnoses Papillary thyroid carcinoma Procedures US [facility] Caitlyn Rivera MD [address] [place] [address] Referral ID Status Reason Start Date Expiration Date V isits Requested Visits Authorized [id number] New Request 09/16/2022 10/11/2023 1 1 Specialty Diagnoses / Procedures Referred By Contac t Referred To Contact Gastroenterology Diagnoses Bloating Procedures CONSULT TO GASTROENTEROLOGY OFFICE/OUTPATIENT NEW HIGH MDM 60-74 MINUTES Christine Dean PA-C [address] [place] [address] Referral ID Status Reason Start Date Expiration Date Visits Requested Visits Authorized [id number] Authorized PCP Requested Referral 2 10/12/2023 1 1 Specialty Diagnoses / Procedures Referred By Contac t Referred To Contact CT IMAGING Diagnoses Adverse effect of treatment, initial encounter Procedures CTA CHEST (NONGATED) W IVCON CT ANGIOGRAPHY CHEST W/CONTRAST/NONCONTRAST Renard Almodovar APRN.DRAMATIC ARTS HISTORIAN [address] [place] [address] Ct Imaging Referral ID Status Reason Start Date Expiration Date Visits Requested Visits Authorized [id number] Waiting for Online Response Auto-Genera ciro Referral Patient Cleared - Admin/Chair man/Directo r advise to proceed 04/27/2023 05/26/2024 1 1 Specialty Diagnoses / Procedures Referred By Contac t Referred To Contact CT IMAGING Diagnoses Adverse effect of treatment, initial encounter Procedures CTA NECK W IVCON CT ANGIOGRAPHY NECK W/CONTRAST/NONCONTRAST Renard Almodovar, [place].DRAMATIC ARTS HISTORIAN [address] [place] [address] Ct Imaging Referral ID Status Reason Start Date Expiration Date Visits Requested Visits Authorized [id number] Additional Clinical Info Needed Auto-Genera ciro Referral Patient Cleared - Admin/Chair man/Directo r advise to proceed 04/27/2023 05/26/2024 1 1 Specialty Diagnoses / Procedures Referred By Contac t Referred To Contact CT IMAGING Diagnoses Adverse effect of treatment, initial encounter Procedures CTA NECK W IVCON CT ANGIOGRAPHY NECK W/CONTRAST/NONCONTRAST Renard Almodovar, VINYL INSTALLER.DRAMATIC ARTS HISTORIAN [address] [place] [address] [place] [address] Referral ID Status Reason Start Date Expiration Date V isits Requested Visits Authorized [id number] Denied Auto-Generat ed Referral Patient Cleared - Admin/Chairm an/Director advise to proceed or did not respond 04/27/2023 06/26/2023 1 0 Specialty Diagnoses / Procedures Referred By Contac t Referred To Contact Ent - Otolaryngology Diagnoses Tinnitus of right ear Right ear pain Procedures CONSULT TO ENT OFFICE/OUTPATIENT NEW HIGH MDM 60 MINUTES Nagi Red MD [address] [place] [address] Referral ID Status Reason Start Date Expiration Date Visits Requested Visits Authorized [id number] Authorized PCP Requested Referral 03/25/2024 03/25/2025 1 1 Referral ID Status Reason Start Date Expiration Date V isits Requested Visits Authorized [id number] New Request 05/01/2024 05/26/2025 1 1 Specialty Diagnoses / Procedures Referred By Contac t Referred To Contact MR IMAGING Diagnoses Spinal stenosis of lumbar region, unspecified whether neurogenic claudication present Radiculopathy, lumbar region Spinal stenosis of lumbar region with neurogenic claudication Procedures MRI LUMBAR SPINE WO IVCON MRI SPINAL CANAL LUMBAR W/O CONTRAST MATERIAL Carlie Brownlee VINYL INSTALLER.DRAMATIC ARTS HISTORIAN [address] [place] [address] Mr Imaging [facility] Referral ID Status Reason Start Date Expiration Date Visits Requested Visits Authorized [id number] Pending Review Auto-Generat ed Referral 05/16/2024 06/14/2025 1 1 Specialty Diagnoses / Procedures Referred By Contac t Referred To Contact MR IMAGING Diagnoses Migraine without aura and without status migrainosus, not intractable Procedures MRI BRAIN WO IVCON MRI BRAIN BRAIN STEM W/O CONTRAST MATERIAL Renard Almodovar, VINYL INSTALLER.DRAMATIC ARTS HISTORIAN [address] [place] [address] [place] [address] Referral ID Status Reason Start Date Expiration Date Visits Requested Visits Authorized [id number] Authorized Auto-Generat ed Referral 12/15/2024 01/14/2026 1 [...] section and content) DATE CREATED AUTHOR 01/25/2020 [facility] DATE CREATED AUTHOR AUTHOR'S ORGANIZ ATION 05/01/2020 [facility] DATE CREATED AUTHOR AUTHOR'S ORGANIZ ATION 02/09/2021 [facility] DATE CREATED AUTHOR AUTHOR'S ORGANIZ ATION 10/31/2022 [facility] DATE CREATED AUTHOR AUTHOR'S ORGANIZ ATION 03/18/2025 [facility] DATE CREATED AUTHOR AUTHOR'S ORGANIZ ATION 04/04/2025 [facility] DATE CREATED AUTHOR AUTHOR'S ORGANIZ ATION 06/11/2025 [facility] DATE CREATED AUTHOR AUTHOR'S ORGANIZ ATION 06/27/2025 [facility] DATE CREATED AUTHOR AUTHOR'S ORGANIZ ATION 06/29/2025 [facility] DATE CREATED AUTHOR AUTHOR'S ORGANIZ ATION 06/29/2025 [facility] DATE CREATED AUTHOR AUTHOR'S ORGANIZ ATION 06/30/2025 [facility] Reason for Visit (unrecogniz ed section and content) Reason Comments Follow-up Here for MARTIN educati on. Reason Comments Bloody Stool Specialty Diagnoses / Procedures Referred By Contac t Referred To Contact [facility] Diagnoses Bloody stool Procedures CAPSULE ENDOSCOPY SMALL BOWEL GI TRC IMG INTRALUMINAL ESOPHAGUS-ILEUM W/I&R Susanne Potts, VINYL INSTALLER.DRAMATIC ARTS HISTORIAN [address] [place] [address] [facility] [place] [address] [place] [address] Referral ID Status Reason Start Date Expiration Date V isits Requested Visits Authorized [id number] Closed Auto-Generate d Referral 12/28/2021 12/28/2022 1 [...] Contact Otolaryngology Diagnoses Sialoadenitis of submandibular gland Caitlyn Rivera MD [address] [place] [place] [address] Osvaldo Tapia MD [address] [place] [address] Referral ID Status Reason Start Date Expiration Date V isits Requested Visits Authorized [id number] New Request 03/18/2022 04/12/2023 1 1 Reason Comments Pain Reason Comments Appointment Reschedule Injection Specialty Diagnoses / Procedures Referred By Kin samuel Referred To Contact Diagnoses Sialadenitis Procedures MRI SIALOGRAM MO MRI, FACE, NECK, COMBO Karen Land, VINYL INSTALLER-DRAMATIC ARTS HISTORIAN [address] [place] [address] Referral ID Status Reason Start Date Expiration Date Visits Re quested Visits Authorized [id number] Closed 03/26/2022 04/20/2023 1 1 Reason Comments [...] REINOSO x6 days Reason Comments ER F/U [facility] Reason Comments Outside Uecl-[id number] Ordered Reason Comments Consult GI Specialty Diagnoses / Procedures Referred By Kin samuel Referred To Contact Diagnoses SI (sacroiliac) joint dysfunction Sacroiliitis, not elsewhere classified (HCC) Procedures INJECT SI JOINT ARTHRGRPHY&/ANES/STEROID W/JAYCE INJECTION SACROILIAC JOINT, ARTHROGRAPHY AND/OR ANESTHETIC/STEROID [facility] [address] [place] [address] Referral ID Status Reason Start Date Expiration Date Visits Re quested Visits Authorized [id number] 1 1 Reason Comments F/U 6 months Specialty Diagnoses / Procedures Referred By Contac t Referred To Contact Diagnoses SI (sacroiliac) joint dysfunction Sacroiliitis, not elsewhere classified (HCC) Procedures DSTRJ NEUROLYTIC AGENT OTHER PERIPHERAL NERVE RADIOFREQUENCY ABLATION NERVE SPINAL [facility] [address] [place] [address] Referral ID Status Reason Start Date Expiration Date Visits Re quested Visits Authorized [id number] 1 1 Reason Comments ER FU apt Reason Comments Edema Hands, feet, face Reason Comments Injection Followup Refill Request Pain Reason Comments Refill Request Pain Injection Followup Reason Comments Radiology CT Specialty Diagnoses / Procedures [facility] Diagnoses Adverse effect of treatment, initial encounter Procedures CTA NECK W IVCON CT ANGIOGRAPHY NECK W/CONTRAST/NONCONTRAST Renard Almodovar, [place]BER[place].DRAMATIC ARTS HISTORIAN [phone] Imaging [place] [address] Referral ID Status Reason Start Date Expiration Date V isits Requested Visits Authorized [id number] Denied Auto-Generat ed Referral Patient Cleared - [...] Spirometry Specialty Diagnoses / Procedures [facility] Diagnoses Exercise-induced asthma SOB (shortness of breath) Procedures SPIROMETRY - BASELINE AND POST DILATOR BRNCDILAT RSPSE SPMTRY PRE&POST-BRNCDILAT Nagi Benjamin MD [address] [place] [address] [facility] [place] [address] [place] [address] Referral ID Status Reason Start Date Expiration Date V isits Requested Visits Authorized [id number] Closed Auto-Generate d Referral 04/25/2024 05/25/2025 1 [...] 50 mg tablet Reason Comments Medication Question Reason Comments Patient Update Reason Comments bilater pleural effusions Reason Onset Date Comments Results 05/02/2025 Reason Comments Nausea & Vomiting Reason Comments Received Outside Medical Records Imaging Reason Comments Patient Update Reason Comments Radiology US Specialty Diagnoses / Procedures Referred By Contac t Referred To Contact US IMAGING Diagnoses Nausea and vomiting, unspecified vomiting type Right flank pain RUQ pain Renal stones Procedures US KIDNEY/BLADDER US RETROPERITONEAL REAL TIME W/IMAGE COMPLETE Nagi Red MD [address] [place] [id number] Phone: tel: fax: [place] [address] Referral ID Status Reason Start Date Expiration Date V isits Requested Visits Authorized [id number] Closed Auto-Generate d Referral 05/17/2025 06/16/2026 1 1 Reason Comments Kidney Stones Specialty Diagnoses / Procedures Referred By Contac t Referred To Contact Urology Diagnoses Kidney stones Right flank pain Procedures CONSULT TO UROLOGY OFFICE/OUTPATIENT [facility] 60 MINUTES Nagi Red MD [address] [place] [id number] Phone: tel: fax: Referral ID Status Reason Start Date Expiration Date V isits Requested Visits Authorized [id number] Closed PCP Requested Referral 05/23/2025 05/23/2026 1 1 Reason Comments Medication Problem Reason Comments Follow Up Patient state that s he is having right side flank pain that wraps around to the front . She states that the pain comes and goes all the time and is desperate to get it out. Denies any urinary symptoms at this time. Reason Comments Labs Only Care Teams (unrecognized sec tion and content) Meteorology Professor Relationship Specialty Start Date End Date Nagi Red MD [address] [place] [address] PCP - General Family Medicine 10/16/20 Meteorology Professor Relationship Specialty Start Date End Date Nagi Red MD [address] [place] [address] [facility] 03/29/14 Meteorology Professor Relationship Specialty Start Date End Date Nagi Red MD [address] [place] [address] [facility] 03/29/14 Meteorology Professor Relationship Specialty Start Date End Date Nagi Red MD [address] [place] [address] PCP - General Family Medicine 10/16/20 Meteorology Professor Relationship Specialty Start Date End Date Nagi Red MD [address] [place] [address] PCP - General Family Medicine 10/16/20 Meteorology Professor Relationship Specialty Start Date End Date Nagi Red MD [address] [place] [address] [place] [address] Family [facility] 03/29/14 Meteorology Professor Relationship Specialty Start Date End Date Nagi Red MD [address] [place] [address] [place] [address] [facility] 03/29/14 Meteorology Professor Relationship Specialty Start Date End Date Nagi Red MD [address] [place] [address] PCP - General Family Medicine 10/16/20 Meteorology Professor Relationship Specialty Start Date End Date Nagi Red MD [facility] [place] [address] PCP - General Family Medicine 10/16/20 Meteorology Professor Relationship Specialty Start Date End Date Nagi Red MD [address] [place] [address], [place] [address] Family Practice 03/29/14 Meteorology Professor Relationship Specialty Start Date End Date Nagi Red MD [address] [place] [address], [place] [address] Family Practice 03/29/14 Meteorology Professor Relationship Specialty Start Date End Date Nagi Red MD [address] [place] [address], [place] [address] PCP - General Family Practice 07/06/22 Nagi Red MD [address] [place] [address], [place] [address] Family Practice 03/29/14 Meteorology Professor Relationship Specialty Start Date End Date Nagi Red MD [address] [place] [address], [place] [address] PCP - General Family Practice 07/06/22 Nagi Red MD [address] [place] [address], [place] [address] Family Practice 03/29/14 Meteorology Professor Relationship Specialty Start Date End Date Nagi Red MD [address] [place] [address] , [place] [address] PCP - General Family Medicine 10/16/20 Meteorology Professor Relationship Specialty Start Date End Date Nagi Red MD [address] [place] [address], [place] [address] PCP - General Family Medicine 07/06/22 Nagi Red MD [address] [facility] [place] [address] Family Medicine 03/29/14 Meteorology Professor Relationship Specialty Start Date End Date Nagi Red MD [address] [facility] [place] [address] PCP - General Family Medicine 07/06/22 Nagi Red MD [address] [facility] [place] [address] Family Medicine 03/29/14 Meteorology Professor Relationship Specialty Start Date End Date Nagi Red MD 0 [facility] [place] [address] PCP - General Family Medicine 07/06/22 Nagi Red MD [address] [place] [address], [place] [address] Family Medicine 03/29/14 Meteorology Professor Relationship Specialty Start Date End Date Nagi Red MD 0 [facility] [place] [address] PCP - General Family Medicine 07/06/22 Nagi Red MD [facility] [place] [address] Family Medicine 03/29/14 Meteorology Professor Relationship Specialty Start Date End Date Nagi Red MD 0 [facility] [place] [address] PCP - General Family Medicine 07/06/22 Nagi Red MD [facility] [place] [address] Family Medicine 03/29/14 Meteorology Professor Relationship Specialty Start Date End Date Nagi Red MD [facility] [place] [address] PCP - General Family Medicine 07/06/22 Nagi Red MD [address] [facility] [place] [address] Family Medicine 03/29/14 Meteorology Professor Relationship Specialty Start Date End Date Nagi Red MD [address] [facility] [place] [address] PCP - General Family Medicine 07/06/22 Nagi Red MD [address] [facility] [place] [address] Family Medicine 03/29/14 Meteorology Professor Relationship Specialty Start Date End Date Nagi Red MD [facility] [place] [address] PCP - General Family Medicine 07/06/22 Nagi Red MD [facility] [place] [address] Family Medicine 03/29/14 Meteorology Professor Relationship Specialty Start Date End Date Nagi Red MD [address] [facility] [place] [address] PCP - General Family Medicine 07/06/22 Nagi Red MD [facility] [place] [address] Family Medicine 03/29/14 Meteorology Professor Relationship Specialty Start Date End Date Nagi Red MD [address] [facility] [place] [address] PCP - General Family Medicine 07/06/22 Nagi Red MD [facility] [place] [address] Family Medicine 03/29/14 Meteorology Professor Relationship Specialty Start Date End Date Nagi Red MD [facility] [place] [address] PCP - General Family Medicine 07/06/22 Nagi Red MD [address] [facility] [place] [address] Family Medicine 03/29/14 Meteorology Professor Relationship Specialty Start Date End Date Nagi Red MD [address] [place] [address] PCP - General Family Medicine 07/06/22 Nagi Red MD [address] [place] [address] Family Medicine 03/29/14 Meteorology Professor Relationship Specialty Start Date End Date Nagi Red MD [address] [place] [address] PCP - General Family Medicine 07/06/22 Nagi Red MD [address] [place] [address] Family Medicine 03/29/14 Meteorology Professor Relationship Specialty Start Date End Date Nagi Red MD [address] [place] [address] PCP - General Family Medicine 07/06/22 Nagi Red MD [address] [place] [address] Family Medicine 03/29/14 Meteorology Professor Relationship Specialty Start Date End Date Nagi Red MD [address] [place] [address] PCP - General Family Medicine 07/06/22 Nagi Red MD [address] [place] [address] Family Medicine 03/29/14 Meteorology Professor Relationship Specialty Start Date End Date Nagi Red MD [address] [place] [address] PCP - General Family Medicine 07/06/22 Nagi Red MD [address] [place] [address] Family Medicine 03/29/14 Meteorology Professor Relationship Specialty Start Date End Date Nagi Red MD [address] [place] [address] PCP - General Family Medicine 07/06/22 Nagi Red MD [address] [place] [address] Family Medicine 03/29/14 Meteorology Professor Relationship Specialty Start Date End Date Nagi Red MD [address] [place] [address] PCP - General Family Medicine 07/06/22 Nagi Red MD [address] [place] [address] Family Medicine 03/29/14 Meteorology Professor Relationship Specialty Start Date End Date Nagi Red MD 0 [place] [address] PCP - General Family Medicine 07/06/22 Nagi Red MD [address] [place] [address] Family Medicine 03/29/14 Meteorology Professor Relationship Specialty Start Date End Date Nagi Red MD [address] [place] [address] PCP - General Family Medicine 07/06/22 Nagi Red MD [address] [facility] [place] [address] Family Medicine 03/29/14 Meteorology Professor Relationship Specialty Start Date End Date Nagi Red MD [address] [facility] [place] [address] PCP - General Family Medicine 07/06/22 Nagi Red MD [address] [facility] [place] [address] Family Medicine 03/29/14 Meteorology Professor Relationship Specialty Start Date End Date Nagi Red MD [address] [facility] [place] [address] PCP - General Family Medicine 07/06/22 Nagi Red MD [address] [facility] [place] [address] Family Medicine 03/29/14 Meteorology Professor Relationship Specialty Start Date End Date Nagi Red MD [address] [facility] [place] [address] PCP - General Family Medicine 07/06/22 Nagi Red MD [address] [facility] [place] [address] Family Medicine 03/29/14 Meteorology Professor Relationship Specialty Start Date End Date Nagi Red MD [address] [place] [address] PCP - General Family Medicine 07/06/22 Nagi Red MD [address] [place] [address] Family Medicine 03/29/14 Meteorology Professor Relationship Specialty Start Date End Date Nagi Red MD [address] [place] [address] PCP - General Family Medicine 07/06/22 Nagi Red MD [address] [place] [address] Family Medicine 03/29/14 Meteorology Professor Relationship Specialty Start Date End Date Nagi Red MD [address] [place] [address] PCP - General Family Medicine 07/06/22 Nagi Red MD [address] [place] [address] Family Medicine 03/29/14 Meteorology Professor Relationship Specialty Start Date End Date Nagi Red MD [address] [place] [address] PCP - General Family Medicine 07/06/22 Nagi Red MD 0 [place] [address] Family Medicine 03/29/14 Meteorology Professor Relationship Specialty Start Date End Date Nagi Red MD [address] [place] [address] PCP - General Family Medicine 07/06/22 Nagi Red MD [address] [facility] [place] [address] Family Medicine 03/29/14 Meteorology Professor Relationship Specialty Start Date End Date Nagi Red MD [address] [facility] [place] [address] PCP - General Family Medicine 10/16/20 Meteorology Professor Relationship Specialty Start Date End Date Nagi Red MD [address] [facility] [place] [address] PCP - General Family Medicine 07/06/22 Nagi Red MD [address] [facility] [place] [address] Family Medicine 03/29/14 Meteorology Professor Relationship Specialty Start Date End Date Nagi Red MD [address] [facility] [place] [address] PCP - General Family Medicine 07/06/22 Nagi Red MD [address] [facility] [place] [address] Family Medicine 03/29/14 Meteorology Professor Relationship Specialty Start Date End Date Nagi Red MD [address] [facility] [place] [address] PCP - General Family Medicine 07/06/22 Nagi Red MD [address] [facility] [place] [address] Family Medicine 03/29/14 Meteorology Professor Relationship Specialty Start Date End Date Nagi Red MD [address] [place] [address] Family Medicine 03/29/14 Meteorology Professor Relationship Specialty Start Date End Date Nagi Red MD [address] [place] [address] PCP - General Family Medicine 07/06/22 Nagi Red MD [address] [place] [address] Family Medicine 03/29/14 Meteorology Professor Relationship Specialty Start Date End Date Nagi Red MD [address] [place] [address] PCP - General Family Medicine 07/06/22 Nagi Red MD [address] [place] [address] Family Medicine 03/29/14 Meteorology Professor Relationship Specialty Start Date End Date Nagi Red MD [address] [place] [address] PCP - General Family Medicine 07/06/22 Nagi Red MD [address] [place] [address] Family Medicine 03/29/14 Meteorology Professor Relationship Specialty Start Date End Date Nagi Red MD [address] [place] [address] PCP - General Family Medicine 07/06/22 Nagi Red MD [address] [place] [address] Family Medicine 03/29/14 Meteorology Professor Relationship Specialty Start Date End Date Nagi Red MD [address] [facility] [place] [address] PCP - General Family Medicine 07/06/22 Nagi Red MD [address] [facility] [place] [address] Family Medicine 03/29/14 Meteorology Professor Relationship Specialty Start Date End Date Nagi Red MD [address] [facility] [place] [address] PCP - General Family Medicine 07/06/22 Nagi Red MD [address] [facility] [place] [address] Family Medicine 03/29/14 Meteorology Professor Relationship Specialty Start Date End Date Nagi Red MD [address] [facility] [place] [address] PCP - General Family Medicine 07/06/22 Nagi Red MD [address] [facility] [place] [address] Family Medicine 03/29/14 Meteorology Professor Relationship Specialty Start Date End Date Nagi Red MD [address] [facility] [place] [address] PCP - General Family Medicine 07/06/22 Nagi Red MD [address] [facility] [place] [address] Family Medicine 03/29/14 Meteorology Professor Relationship Specialty Start Date End Date Nagi Red MD [address] [facility] [place] [address] PCP - General Family Medicine 07/06/22 Nagi Red MD [address] [facility] [place] [address] Family Medicine 03/29/14 Meteorology Professor Relationship Specialty Start Date End Date Nagi Red MD [address] [facility] [place] [address] PCP - General Family Medicine 07/06/22 Nagi Red MD [address] [place] [address] Family Medicine 03/29/14 Renard Almodovar APRN.DRAMATIC ARTS HISTORIAN [address] [place] [address] Forensic Document Examiner Family [facility] 10/28/24 Christine Dean PA-C [address] [place] [address] Forensic Document Examiner Family [facility] 10/28/24 Meteorology Professor Relationship Specialty Start Date End Date Nagi Red MD [address] [place] [address] PCP - General Family Medicine 07/06/22 Nagi Red MD [address] [place] [address] Family Medicine 03/29/14 Renard Almodovar APRN.DRAMATIC ARTS HISTORIAN [address] [place] [address] Forensic Document Examiner Family Medicine 10/28/24 Christine Dean PA-C [address] [facility] [place] [address] Forensic Document Examiner Family [facility] 10/28/24 Meteorology Professor Relationship Specialty Start Date End Date Nagi Red MD [address] [facility] [place] [address] PCP - General Family Medicine 07/06/22 Nagi Red MD [address] [place] [address] Family Medicine 03/29/14 Renard Almodovar APRN.DRAMATIC ARTS HISTORIAN [address] [place] [address] Forensic Document Examiner Family Medicine 10/28/24 Christine Dean PA-C [address] [facility] [place] [address] Forensic Document Examiner Family [facility] 10/28/24 Meteorology Professor Relationship Specialty Start Date End Date Nagi Red MD [address] [facility] [place] [address] PCP - General Family Medicine 07/06/22 Nagi Red MD [address] [place] [address] Family Medicine 03/29/14 Renard Almodvoar APRN.DRAMATIC ARTS HISTORIAN [address] [place] [address] Forensic Document Examiner Family Medicine 10/28/24 Christine Dean PA-C [address] [place] [address] Forensic Document Examiner Family Medicine 10/28/24 Meteorology Professor Relationship Specialty Start Date End Date Nagi Red MD [address] [facility] [place] [address] PCP - General Family Medicine 07/06/22 Nagi Red MD [address] [facility] [place] [address] Family Medicine 03/29/14 Renard Almodovar APRN.DRAMATIC ARTS HISTORIAN [address] [facility] [place] [address] Forensic Document Examiner Family Medicine 10/28/24 Christine Dean PA-C [address] [facility] [place] [address] Forensic Document Examiner Family Medicine 10/28/24 Meteorology Professor Relationship Specialty Start Date End Date Nagi Red MD [address] [facility] [place] [address] PCP - General Family Medicine 07/06/22 Nagi Red MD [address] [facility] [place] [address] Family Medicine 03/29/14 Renard Almodovar, VINYL INSTALLER.DRAMATIC ARTS HISTORIAN [address] [facility] [place] [address] Forensic Document Examiner Family Medicine 10/28/24 Christine Dean PA-C [address] [facility] [place] [address] Forensic Document Examiner Family Medicine 10/28/24 Meteorology Professor Relationship Specialty Start Date End Date Nagi Red MD [address] [facility] [place] [address] PCP - General Family Medicine 07/06/22 Nagi Red MD [address] [place] [address] Family Medicine 03/29/14 Renard Almodovar APRN.DRAMATIC ARTS HISTORIAN [address] [place] [address] Forensic Document Examiner Family Medicine 10/28/24 Christine Dean PA-C [address] [place] [address] Forensic Document Examiner [facility] 10/28/24 Meteorology Professor Relationship Specialty Start Date End Date Nagi Red MD [address] [place] [address] PCP - General Family Medicine 07/06/22 Nagi Red MD [address] [place] [address] Family Medicine 03/29/14 Renard Almodovar, VINYL INSTALLER.DRAMATIC ARTS HISTORIAN [address] [place] [address] Forensic Document Examiner Family Medicine 10/28/24 Christine Dean PA-C [address] [place] [address] Forensic Document Examiner Family Medicine 10/28/24 Meteorology Professor Relationship Specialty Start Date End Date Nagi Red MD [address] [place] [address] PCP - General Family Medicine 07/06/22 Nagi Red MD [address] [facility] [place] [address] Family Medicine 03/29/14 Renard Almodovar APRN.DRAMATIC ARTS HISTORIAN [address] [place] [address] Forensic Document Examiner Family Medicine 10/28/24 Christine Dean PA-C [address] [place] [address] Forensic Document Examiner Family Medicine 10/28/24 Meteorology Professor Relationship Specialty Start Date End Date Nagi Red MD [address] [place] [address] PCP - General Family Medicine 07/06/22 Nagi Red MD [facility] [place] [address] Family Medicine 03/29/14 Renard Alomdovar APRN.DRAMATIC ARTS HISTORIAN [address] [place] [address] Forensic Document Examiner Family Medicine 10/28/24 Christine Dean PA-C [address] [place] [address] Forensic Document Examiner Family [facility] 10/28/24 Meteorology Professor Relationship Specialty Start Date End Date Nagi Red MD [address] [place] [address] PCP - General Family Medicine 07/06/22 Nagi Red MD [address] [place] [address] Family Medicine 03/29/14 Renard Almodovar, VINYL INSTALLER.DRAMATIC ARTS HISTORIAN [address] [facility] [place] [address] Forensic Document Examiner Family [facility] 10/28/24 Christine Dean PA-C [address] [facility] [place] [address] Forensic Document Examiner [facility] 10/28/24 Meteorology Professor Relationship Specialty Start Date End Date Nagi Red MD [address] [facility] [place] [address] PCP - General Family Medicine 07/06/22 Nagi Red MD [address] [facility] [place] [address] Family Medicine 03/29/14 Renard Almodovar, VINYL INSTALLER.DRAMATIC ARTS HISTORIAN [address] [facility] [place] [address] Forensic Document Examiner Family [facility] 10/28/24 Christine Dean PA-C [address] [facility] [place] [address] Forensic Document Examiner [facility] 10/28/24 Meteorology Professor Relationship Specialty Start Date End Date Nagi Red MD [address] [facility] [place] [address] PCP - General Family Medicine 07/06/22 Nagi Red MD [address] [facility] [place] [address] Family Medicine 03/29/14 Christine Dean PA-C [address] [facility] [place] [address] Forensic Document Examiner Family Medicine 10/28/24 Meteorology Professor Relationship Specialty Start Date End Date Nagi Red MD [address] [facility] [place] [address] PCP - General Family Medicine 07/06/22 Nagi Red MD [address] [facility] [place] [address] Family Medicine 03/29/14 Christine Dean PA-C [address] [place] [address] Forensic Document Examiner Family [facility] 10/28/24 Meteorology Professor Relationship Specialty Start Date End Date Nagi Red MD [address] [facility] [place] [address] PCP - General Family Medicine 07/06/22 Nagi Red MD [address] [place] [address] Family Medicine 03/29/14 Renard Almodovar APRN.CNP [address] [place] [address] Forensic Document Examiner Family Medicine 04/23/25 Christine Dean PA-C [address] [facility] [place] [address] Forensic Document Examiner Family Medicine 04/23/25 Meteorology Professor Relationship Specialty Start Date End Date Nagi Red MD [address] [facility] [place] [address] PCP - General Family Medicine 07/06/22 Nagi Red MD [address] [facility] [place] [address] Family Medicine 03/29/14 Renard Almodovar APRN.DRAMATIC ARTS HISTORIAN [address] [facility] [place] [address] Forensic Document Examiner Family Medicine 04/23/25 Christine Dean PA-C [address] [facility] [place] [address] Forensic Document Examiner Family Medicine 04/23/25 Meteorology Professor Relationship Specialty Start Date End Date Nagi Red MD [address] [place] [address] PCP - General Family Medicine 07/06/22 Nagi Red MD [facility] [place] [address] Family Medicine 03/29/14 Renard Almodovar, KIMBERLEY.DRAMATIC ARTS HISTORIAN [address] [facility] [place] [address] Forensic Document Examiner Family Medicine 04/23/25 Christine Dean PA-C [address] [place] [address] Forensic Document Examiner Family Medicine 04/23/25 Meteorology Professor Relationship Specialty Start Date End Date Nagi Red MD [address] [facility] [place] [address] PCP - General Family Medicine 07/06/22 Nagi Red MD [address] [place] [address] Family Medicine 03/29/14 Renard Almodovar, KIMBERLEY.DRAMATIC ARTS HISTORIAN [address] [facility] [place] [address] Forensic Document Examiner Family Medicine 04/23/25 Christine Dean PA-C [address] [facility] [place] [address] Forensic Document Examiner Family [facility] 04/23/25 Meteorology Professor Relationship Specialty Start Date End Date Nagi Red MD [address] [facility] [place] [address] PCP - General Family Medicine 07/06/22 Nagi Red MD [address] [facility] [place] [address] Family Medicine 03/29/14 Renard Almodovar, VINYL INSTALLER.DRAMATIC ARTS HISTORIAN [address] [facility] [place] [address] Forensic Document Examiner Family Medicine 04/23/25 Christine Dean PA-C [address] [facility] [place] [address] Forensic Document Examiner Family [facility] 04/23/25 Meteorology Professor Relationship Specialty Start Date End Date Nagi Red MD [address] [facility] [place] [address] PCP - General Family Medicine 07/06/22 Nagi Red MD [address] [facility] [place] [address] Family Medicine 03/29/14 Renard Almodovar, VINYL INSTALLER.DRAMATIC ARTS HISTORIAN [address] [facility] [place] [address] Forensic Document Examiner Family Medicine 04/23/25 Christine Dean PA-C [address] [place] [address] Forensic Document Examiner Family Medicine 04/23/25 Meteorology Professor Relationship Specialty Start Date End Date Nagi Red MD [address] [place] [address] PCP - General Family Medicine 07/06/22 Nagi Red MD [address] [place] [address] Family Medicine 03/29/14 Renard Almodovar, KIMBERLEY.DRAMATIC ARTS HISTORIAN [address] [place] [address] Forensic Document Examiner Family Medicine 04/23/25 Christine Dean PA-C [address] [place] [address] Forensic Document Examiner Family Medicine 04/23/25 Meteorology Professor Relationship Specialty Start Date End Date Nagi Red MD [address] [place] [address] PCP - General Family Medicine 07/06/22 Nagi Red MD [address] [place] [address] Family Medicine 03/29/14 Renard Almodovar, KIMBERLEY.DRAMATIC ARTS HISTORIAN [address] [place] [address] Forensic Document Examiner Family Medicine 04/23/25 Christine Dean PA-C [address] [facility] [place] [address] Forensic Document Examiner Family Medicine 04/23/25 Meteorology Professor Relationship Specialty Start Date End Date Nagi Red MD [address] [facility] [place] [address] PCP - General Family Medicine 07/06/22 Nagi Red MD [address] [place] [address] Family Medicine 03/29/14 Renard Almodovar APRN.DRAMATIC ARTS HISTORIAN [address] [place] [address] Forensic Document Examiner Family Medicine 04/23/25 Christine Dean PA-C [address] [facility] [place] [address] Forensic Document Examiner Family Medicine 04/23/25 Meteorology Professor Relationship Specialty Start Date End Date Nagi Red MD [address] [facility] [place] [address] PCP - General Family Medicine 07/06/22 Nagi Red MD [address] [facility] [place] [address] Family Medicine 03/29/14 Renard Almodovar APRN.DRAMATIC ARTS HISTORIAN [address] [place] [address] Forensic Document Examiner Family Medicine 04/23/25 Christine Dean PA-C [address] [place] [address] Forensic Document Examiner Family Medicine 04/23/25 Meteorology Professor Relationship Specialty Start Date End Date Nagi Red MD [address] [facility] [place] [address] PCP - General Family Medicine 07/06/22 Nagi Red MD [address] [facility] [place] [address] Family Medicine 03/29/14 Renard Almodovar, VINYL INSTALLER.DRAMATIC ARTS HISTORIAN [address] [place] [address] Forensic Document Examiner Family Medicine 04/23/25 Christine Dean PA-C [address] [place] [address] Forensic Document Examiner Family Medicine 04/23/25 Meteorology Professor Relationship Specialty Start Date End Date Nagi Red MD [address] [place] [address] PCP - General Family Medicine 07/06/22 Nagi Red MD [address] [facility] [place] [address] Family Medicine 03/29/14 Renard Almodovar, VINYL INSTALLER.DRAMATIC ARTS HISTORIAN [address] [place] [address] Forensic Document Examiner Family Medicine 04/23/25 Christine Dean PA-C [address] [facility] [place] [address] Forensic Document Examiner Family Medicine 04/23/25 Meteorology Professor Relationship Specialty Start Date End Date Nagi Red MD [address] [facility] [place] [address] PCP - General Family Medicine 07/06/22 Nagi Red MD [address] [facility] [place] [address] Family Medicine 03/29/14 Renard Almodovar, KIMBERLEY.DRAMATIC ARTS HISTORIAN [address] [place] [address] Forensic Document Examiner Family Medicine 04/23/25 Christine Dean PA-C [address] [place] [address] Forensic Document Examiner Family Medicine 04/23/25 Meteorology Professor Relationship Specialty Start Date End Date Nagi Red MD [address] [place] [address] PCP - General Family Medicine 07/06/22 Nagi Red MD [address] [place] [address] Family Medicine 03/29/14 Renard Almodovar, VINYL INSTALLER.DRAMATIC ARTS HISTORIAN [address] [place] [address] Forensic Document Examiner Family Medicine 04/23/25 Christine Dean PA-C [address] [place] [address] Forensic Document Examiner Family Medicine 04/23/25 Meteorology Professor Relationship Specialty Start Date End Date Nagi Red MD [address] [place] [address] PCP - General Family Medicine 07/06/22 Nagi Red MD [address] [facility] [place] [address] Family Medicine 03/29/14 Renard Almodovar APRN.DRAMATIC ARTS HISTORIAN [address] [place] [place] [address] Forensic Document Examiner Family Medicine 04/23/25 Christine Dean PA-C [address] [facility] [place] [address] Forensic Document Examiner Family Medicine 04/23/25 Meteorology Professor Relationship Specialty Start Date End Date Nagi Red MD [address] [place] [address] PCP - General Family Medicine 07/06/22 Nagi Red MD [address] [place] [address] Family Medicine 03/29/14 Renard Almodovar, KIMBERLEY.DRAMATIC ARTS HISTORIAN [address] [place] [address] Forensic Document Examiner Family Medicine 04/23/25 Christine Dean PA-C [address] [facility] [place] [address] Forensic Document Examiner Family Medicine 04/23/25 Meteorology Professor Relationship Specialty Start Date End Date Nagi Red MD [address] [place] [address] PCP - General Family Medicine 07/06/22 Nagi Red MD [address] [place] [address] Family Medicine 03/29/14 Renard Almodovar, VINYL INSTALLER.DRAMATIC ARTS HISTORIAN [address] [place], [place] [address] [facility] 04/23/25 Christine Dean PA-C [address] [place] [address] [facility] 04/23/25 Meteorology Professor Relationship Specialty Start Date End Date Nagi Red MD [address] [place] [address] PCP - General Family Medicine 07/06/22 Nagi Red MD [address] [place] [address] Family [facility] 03/29/14 Renard Almodovar, VINYL INSTALLER.DRAMATIC ARTS HISTORIAN [address] [place] [address] [facility] 04/23/25 Christine Dean PA-C [address] [facility] [place] [address] [facility] 04/23/25 Meteorology Professor Relationship Specialty Start Date End Date Nagi Red MD [address] [place] [address] PCP - General Family Medicine 10/16/20 Source Comments (unrecognize d section and content) In the event this informatio n is protected by the Federal Confidentiality of Alcohol and Drug Abuse Patient Records regulations: The Federal rules restrict any use of the information to criminally investigate or prosecute any alcohol or drug abuse patient.[facility] the event this information is protected by the Federal Confidentiality of Alcohol and Drug Abuse Patient Records regulations: The Federal rules restrict any use of the information to criminally investigate or prosecute any alcohol or drug abuse patient.[facility] CenterIn the event this information is protected by the Federal Confidentiality of Alcohol and Drug Abuse Patient Records regulations: The Federal rules restrict any use of the information to criminally investigate or prosecute any alcohol or drug abuse patient.[facility] CenterIn the event this information is protected by the Federal Confidentiality of Alcohol and Drug Abuse Patient Records regulations: The Federal rules restrict any use of the information to criminally investigate or prosecute any alcohol or drug abuse patient.[facility] CenterIn the event this information is protected by the Federal Confidentiality of Alcohol and Drug Abuse Patient Records regulations: The Federal rules restrict any use of the information to criminally investigate or prosecute any alcohol or drug abuse patient.[facility] CenterIn the event this information is protected by the Federal Confidentiality of Alcohol and Drug Abuse Patient Records regulations: The Federal rules restrict any use of the information to criminally investigate or prosecute any alcohol or drug abuse patient.[facility] CenterIn the event this information is protected by the Federal Confidentiality of Alcohol and Drug Abuse Patient Records regulations: The Federal rules restrict any use of the information to criminally investigate or prosecute any alcohol or drug abuse patient.[facility] CenterIn the event this information is protected by the Federal Confidentiality of Alcohol and Drug Abuse Patient Records regulations: The Federal rules restrict any use of the information to criminally investigate or prosecute any alcohol or drug abuse patient.[facility] CenterIn the event this information is protected by the Federal Confidentiality of Alcohol and Drug Abuse Patient Records regulations: The Federal rules restrict any use of the information to criminally investigate or prosecute any alcohol or drug abuse patient.[facility] CenterIn the event this information is protected by the Federal Confidentiality of Alcohol and Drug Abuse Patient Records regulations: The Federal rules restrict any use of the information to criminally investigate or prosecute any alcohol or drug abuse patient.[facility] CenterIn the event this information is protected by the Federal Confidentiality of Alcohol and Drug Abuse Patient Records regulations: The Federal rules restrict any use of the information to criminally investigate or prosecute any alcohol or drug abuse patient.[facility] CenterIn the event this information is protected by the Federal Confidentiality of Alcohol and Drug Abuse Patient Records regulations: The Federal rules restrict any use of the information to criminally investigate or prosecute any alcohol or drug abuse patient.[facility] CenterIn the event this information is protected by the Federal Confidentiality of Alcohol and Drug Abuse Patient Records regulations: The Federal rules restrict any use of the information to criminally investigate or prosecute any alcohol or drug abuse patient.[facility] CenterIn the event this information is protected by the Federal Confidentiality of Alcohol and Drug Abuse Patient Records regulations: The Federal rules restrict any use of the information to criminally investigate or prosecute any alcohol or drug abuse patient.[facility] CenterIn the event this information is protected by the Federal Confidentiality of Alcohol and Drug Abuse Patient Records regulations: The Federal rules restrict any use of the information to criminally investigate or prosecute any alcohol or drug abuse patient.[facility] CenterIn the event this information is protected by the Federal Confidentiality of Alcohol and Drug Abuse Patient Records regulations: The Federal rules restrict any use of the information to criminally investigate or prosecute any alcohol or drug abuse patient.[facility] CenterIn the event this information is protected by the Federal Confidentiality of Alcohol and Drug Abuse Patient Records regulations: The Federal rules restrict any use of the information to criminally investigate or prosecute any alcohol or drug abuse patient.[facility] CenterIn the event this information is protected by the Federal Confidentiality of Alcohol and Drug Abuse Patient Records regulations: The Federal rules restrict any use of the information to criminally investigate or prosecute any alcohol or drug abuse patient.[facility] CenterIn the event this information is protected by the Federal Confidentiality of Alcohol and Drug Abuse Patient Records regulations: The Federal rules restrict any use of the information to criminally investigate or prosecute any alcohol or drug abuse patient.[facility] CenterIn the event this information is protected by the Federal Confidentiality of Alcohol and Drug Abuse Patient Records regulations: The Federal rules restrict any use of the information to criminally investigate or prosecute any alcohol or drug abuse patient.[facility] CenterIn the event this information is protected by the Federal Confidentiality of Alcohol and Drug Abuse Patient Records regulations: The Federal rules restrict any use of the information to criminally investigate or prosecute any alcohol or drug abuse patient.[facility] CenterIn the event this information is protected by the Federal Confidentiality of Alcohol and Drug Abuse Patient Records regulations: The Federal rules restrict any use of the information to criminally investigate or prosecute any alcohol or drug abuse patient.[facility] CenterIn the event this information is protected by the Federal Confidentiality of Alcohol and Drug Abuse Patient Records regulations: The Federal rules restrict any use of the information to criminally investigate or prosecute any alcohol or drug abuse patient.[facility] CenterIn the event this information is protected by the Federal Confidentiality of Alcohol and Drug Abuse Patient Records regulations: The Federal rules restrict any use of the information to criminally investigate or prosecute any alcohol or drug abuse patient.[facility] CenterIn the event this information is protected by the Federal Confidentiality of Alcohol and Drug Abuse Patient Records regulations: The Federal rules restrict any use of the information to criminally investigate or prosecute any alcohol or drug abuse patient.[facility] CenterIn the event this information is protected by the Federal Confidentiality of Alcohol and Drug Abuse Patient Records regulations: The Federal rules restrict any use of the information to criminally investigate or prosecute any alcohol or drug abuse patient.[facility] CenterIn the event this information is protected by the Federal Confidentiality of Alcohol and Drug Abuse Patient Records regulations: The Federal rules restrict any use of the information to criminally investigate or prosecute any alcohol or drug abuse patient.[facility] CenterIn the event this information is protected by the Federal Confidentiality of Alcohol and Drug Abuse Patient Records regulations: The Federal rules restrict any use of the information to criminally investigate or prosecute any alcohol or drug abuse patient.[facility] CenterIn the event this information is protected by the Federal Confidentiality of Alcohol and Drug Abuse Patient Records regulations: The Federal rules restrict any use of the information to criminally investigate or prosecute any alcohol or drug abuse patient.[facility] CenterIn the event this information is protected by the Federal Confidentiality of Alcohol and Drug Abuse Patient Records regulations: The Federal rules restrict any use of the information to criminally investigate or prosecute any alcohol or drug abuse patient.[facility] CenterIn the event this information is protected by the Federal Confidentiality of Alcohol and Drug Abuse Patient Records regulations: The Federal rules restrict any use of the information to criminally investigate or prosecute any alcohol or drug abuse patient.[facility] CenterIn the event this information is protected by the Federal Confidentiality of Alcohol and Drug Abuse Patient Records regulations: The Federal rules restrict any use of the information to criminally investigate or prosecute any alcohol or drug abuse patient.[facility] CenterIn the event this information is protected by the Federal Confidentiality of Alcohol and Drug Abuse Patient Records regulations: The Federal rules restrict any use of the information to criminally investigate or prosecute any alcohol or drug abuse patient.[facility] CenterIn the event this information is protected by the Federal Confidentiality of Alcohol and Drug Abuse Patient Records regulations: The Federal rules restrict any use of the information to criminally investigate or prosecute any alcohol or drug abuse patient.[facility] CenterIn the event this information is protected by the Federal Confidentiality of Alcohol and Drug Abuse Patient Records regulations: The Federal rules restrict any use of the information to criminally investigate or prosecute any alcohol or drug abuse patient.[facility] CenterIn the event this information is protected by the Federal Confidentiality of Alcohol and Drug Abuse Patient Records regulations: The Federal rules restrict any use of the information to criminally investigate or prosecute any alcohol or drug abuse patient.[facility] CenterIn the event this information is protected by the Federal Confidentiality of Alcohol and Drug Abuse Patient Records regulations: The Federal rules restrict any use of the information to criminally investigate or prosecute any alcohol or drug abuse patient.[facility] CenterIn the event this information is protected by the Federal Confidentiality of Alcohol and Drug Abuse Patient Records regulations: The Federal rules restrict any use of the information to criminally investigate or prosecute any alcohol or drug abuse patient.[facility] CenterIn the event this information is protected by the Federal Confidentiality of Alcohol and Drug Abuse Patient Records regulations: The Federal rules restrict any use of the information to criminally investigate or prosecute any alcohol or drug abuse patient.[facility] CenterIn the event this information is protected by the Federal Confidentiality of Alcohol and Drug Abuse Patient Records regulations: The Federal rules restrict any use of the information to criminally investigate or prosecute any alcohol or drug abuse patient.[facility] CenterIn the event this information is protected by the Federal Confidentiality of Alcohol and Drug Abuse Patient Records regulations: The Federal rules restrict any use of the information to criminally investigate or prosecute any alcohol or drug abuse patient.[facility] CenterIn the event this information is protected by the Federal Confidentiality of Alcohol and Drug Abuse Patient Records regulations: The Federal rules restrict any use of the information to criminally investigate or prosecute any alcohol or drug abuse patient.[facility] CenterIn the event this information is protected by the Federal Confidentiality of Alcohol and Drug Abuse Patient Records regulations: The Federal rules restrict any use of the information to criminally investigate or prosecute any alcohol or drug abuse patient.[facility] CenterIn the event this information is protected by the Federal Confidentiality of Alcohol and Drug Abuse Patient Records regulations: The Federal rules restrict any use of the information to criminally investigate or prosecute any alcohol or drug abuse patient.[facility] CenterIn the event this information is protected by the Federal Confidentiality of Alcohol and Drug Abuse Patient Records regulations: The Federal rules restrict any use of the information to criminally investigate or prosecute any alcohol or drug abuse patient.[facility] CenterIn the event this information is protected by the Federal Confidentiality of Alcohol and Drug Abuse Patient Records regulations: The Federal rules restrict any use of the information to criminally investigate or prosecute any alcohol or drug abuse patient.[facility] CenterIn the event this information is protected by the Federal Confidentiality of Alcohol and Drug Abuse Patient Records regulations: The Federal rules restrict any use of the information to criminally investigate or prosecute any alcohol or drug abuse patient.[facility] CenterIn the event this information is protected by the Federal Confidentiality of Alcohol and Drug Abuse Patient Records regulations: The Federal rules restrict any use of the information to criminally investigate or prosecute any alcohol or drug abuse patient.[facility] CenterIn the event this information is protected by the Federal Confidentiality of Alcohol and Drug Abuse Patient Records regulations: The Federal rules restrict any use of the information to criminally investigate or prosecute any alcohol or drug abuse patient.[facility] CenterIn the event this information is protected by the Federal Confidentiality of Alcohol and Drug Abuse Patient Records regulations: The Federal rules restrict any use of the information to criminally investigate or prosecute any alcohol or drug abuse patient.[facility] CenterIn the event this information is protected by the Federal Confidentiality of Alcohol and Drug Abuse Patient Records regulations: The Federal rules restrict any use of the information to criminally investigate or prosecute any alcohol or drug abuse patient.[facility] CenterIn the event this information is protected by the Federal Confidentiality of Alcohol and Drug Abuse Patient Records regulations: The Federal rules restrict any use of the information to criminally investigate or prosecute any alcohol or drug abuse patient.[facility] CenterIn the event this information is protected by the Federal Confidentiality of Alcohol and Drug Abuse Patient Records regulations: The Federal rules restrict any use of the information to criminally investigate or prosecute any alcohol or drug abuse patient.[facility] CenterIn the event this information is protected by the Federal Confidentiality of Alcohol and Drug Abuse Patient Records regulations: The Federal rules restrict any use of the information to criminally investigate or prosecute any alcohol or drug abuse patient.[facility] CenterIn the event this information is protected by the Federal Confidentiality of Alcohol and Drug Abuse Patient Records regulations: The Federal rules restrict any use of the information to criminally investigate or prosecute any alcohol or drug abuse patient.[facility] CenterIn the event this information is protected by the Federal Confidentiality of Alcohol and Drug Abuse Patient Records regulations: The Federal rules restrict any use of the information to criminally investigate or prosecute any alcohol or drug abuse patient.[facility] CenterIn the event this information is protected by the Federal Confidentiality of Alcohol and Drug Abuse Patient Records regulations: The Federal rules restrict any use of the information to criminally investigate or prosecute any alcohol or drug abuse patient.[facility] CenterIn the event this information is protected by the Federal Confidentiality of Alcohol and Drug Abuse Patient Records regulations: The Federal rules restrict any use of the information to criminally investigate or prosecute any alcohol or drug abuse patient.[facility] CenterIn the event this information is protected by the Federal Confidentiality of Alcohol and Drug Abuse Patient Records regulations: The Federal rules restrict any use of the information to criminally investigate or prosecute any alcohol or drug abuse patient.[facility] CenterIn the event this information is protected by the Federal Confidentiality of Alcohol and Drug Abuse Patient Records regulations: The Federal rules restrict any use of the information to criminally investigate or prosecute any alcohol or drug abuse patient.[facility] CenterIn the event this information is protected by the Federal Confidentiality of Alcohol and Drug Abuse Patient Records regulations: The Federal rules restrict any use of the information to criminally investigate or prosecute any alcohol or drug abuse patient.[facility] CenterIn the event this information is protected by the Federal Confidentiality of Alcohol and Drug Abuse Patient Records regulations: The Federal rules restrict any use of the information to criminally investigate or prosecute any alcohol or drug abuse patient.[facility] CenterIn the event this information is protected by the Federal Confidentiality of Alcohol and Drug Abuse Patient Records regulations: The Federal rules restrict any use of the information to criminally investigate or prosecute any alcohol or drug abuse patient.[facility] CenterIn the event this information is protected by the Federal Confidentiality of Alcohol and Drug Abuse Patient Records regulations: The Federal rules restrict any use of the information to criminally investigate or prosecute any alcohol or drug abuse patient.[facility] CenterIn the event this information is protected by the Federal Confidentiality of Alcohol and Drug Abuse Patient Records regulations: The Federal rules restrict any use of the information to criminally investigate or prosecute any alcohol or drug abuse patient.[facility] CenterIn the event this information is protected by the Federal Confidentiality of Alcohol and Drug Abuse Patient Records regulations: The Federal rules restrict any use of the information to criminally investigate or prosecute any alcohol or drug abuse patient.[facility] CenterIn the event this information is protected by the Federal Confidentiality of Alcohol and Drug Abuse Patient Records regulations: The Federal rules restrict any use of the information to criminally investigate or prosecute any alcohol or drug abuse patient.[facility] CenterIn the event this information is protected by the Federal Confidentiality of Alcohol and Drug Abuse Patient Records regulations: The Federal rules restrict any use of the information to criminally investigate or prosecute any alcohol or drug abuse patient.[facility] CenterIn the event this information is protected by the Federal Confidentiality of Alcohol and Drug Abuse Patient Records regulations: The Federal rules restrict any use of the information to criminally investigate or prosecute any alcohol or drug abuse patient.[facility] CenterIn the event this information is protected by the Federal Confidentiality of Alcohol and Drug Abuse Patient Records regulations: The Federal rules restrict any use of the information to criminally investigate or prosecute any alcohol or drug abuse patient.[facility] CenterIn the event this information is protected by the Federal Confidentiality of Alcohol and Drug Abuse Patient Records regulations: The Federal rules restrict any use of the information to criminally investigate or prosecute any alcohol or drug abuse patient.[facility] CenterIn the event this information is protected by the Federal Confidentiality of Alcohol and Drug Abuse Patient Records regulations: The Federal rules restrict any use of the information to criminally investigate or prosecute any alcohol or drug abuse patient.[facility] CenterIn the event this information is protected by the Federal Confidentiality of Alcohol and Drug Abuse Patient Records regulations: The Federal rules restrict any use of the information to criminally investigate or prosecute any alcohol or drug abuse patient.[facility] CenterIn the event this information is protected by the Federal Confidentiality of Alcohol and Drug Abuse Patient Records regulations: The Federal rules restrict any use of the information to criminally investigate or prosecute any alcohol or drug abuse patient.[facility] CenterIn the event this information is protected by the Federal Confidentiality of Alcohol and Drug Abuse Patient Records regulations: The Federal rules restrict any use of the information to criminally investigate or prosecute any alcohol or drug abuse patient.[facility] CenterIn the event this information is protected by the Federal Confidentiality of Alcohol and Drug Abuse Patient Records regulations: The Federal rules restrict any use of the information to criminally investigate or prosecute any alcohol or drug abuse patient.[facility] CenterIn the event this information is protected by the Federal Confidentiality of Alcohol and Drug Abuse Patient Records regulations: The Federal rules restrict any use of the information to criminally investigate or prosecute any alcohol or drug abuse patient.[facility] CenterIn the event this information is protected by the Federal Confidentiality of Alcohol and Drug Abuse Patient Records regulations: The Federal rules restrict any use of the information to criminally investigate or prosecute any alcohol or drug abuse patient.[facility] CenterIn the event this information is protected by the Federal Confidentiality of Alcohol and Drug Abuse Patient Records regulations: The Federal rules restrict any use of the information to criminally investigate or prosecute any alcohol or drug abuse patient.[facility] CenterIn the event this information is protected by the Federal Confidentiality of Alcohol and Drug Abuse Patient Records regulations: The Federal rules restrict any use of the information to criminally investigate or prosecute any alcohol or drug abuse patient.[facility] CenterIn the event this information is protected by the Federal Confidentiality of Alcohol and Drug Abuse Patient Records regulations: The Federal rules restrict any use of the information to criminally investigate or prosecute any alcohol or drug abuse patient.[facility] CenterIn the event this information is protected by the Federal Confidentiality of Alcohol and Drug Abuse Patient Records regulations: The Federal rules restrict any use of the information to criminally investigate or prosecute any alcohol or drug abuse patient.[facility] CenterIn the event this information is protected by the Federal Confidentiality of Alcohol and Drug Abuse Patient Records regulations: The Federal rules restrict any use of the information to criminally investigate or prosecute any alcohol or drug abuse patient.[facility] CenterIn the event this information is protected by the Federal Confidentiality of Alcohol and Drug Abuse Patient Records regulations: The Federal rules restrict any use of the information to criminally investigate or prosecute any alcohol or drug abuse patient.[facility] CenterIn the event this information is protected by the Federal Confidentiality of Alcohol and Drug Abuse Patient Records regulations: The Federal rules restrict any use of the information to criminally investigate or prosecute any alcohol or drug abuse patient.[facility] CenterIn the event this information is protected by the Federal Confidentiality of Alcohol and Drug Abuse Patient Records regulations: The Federal rules restrict any use of the information to criminally investigate or prosecute any alcohol or drug abuse patient.[facility] CenterIn the event this information is protected by the Federal Confidentiality of Alcohol and Drug Abuse Patient Records regulations: The Federal rules restrict any use of the information to criminally investigate or prosecute any alcohol or drug abuse patient.[facility] CenterIn the event this information is protected by the Federal Confidentiality of Alcohol and Drug Abuse Patient Records regulations: The Federal rules restrict any use of the information to criminally investigate or prosecute any alcohol or drug abuse patient.[facility] CenterIn the event this information is protected by the Federal Confidentiality of Alcohol and Drug Abuse Patient Records regulations: The Federal rules restrict any use of the information to criminally investigate or prosecute any alcohol or drug abuse patient.[facility] CenterIn the event this information is protected by the Federal Confidentiality of Alcohol and Drug Abuse Patient Records regulations: The Federal rules restrict any use of the information to criminally investigate or prosecute any alcohol or drug abuse patient.[facility] CenterIn the event this information is protected by the Federal Confidentiality of Alcohol and Drug Abuse Patient Records regulations: The Federal rules restrict any use of the information to criminally investigate or prosecute any alcohol or drug abuse patient.[facility] CenterIn the event this information is protected by the Federal Confidentiality of Alcohol and Drug Abuse Patient Records regulations: The Federal rules restrict any use of the information to criminally investigate or prosecute any alcohol or drug abuse patient.[facility] CenterIn the event this information is protected by the Federal Confidentiality of Alcohol and Drug Abuse Patient Records regulations: The Federal rules restrict any use of the information to criminally investigate or prosecute any alcohol or drug abuse patient.[facility] CenterIn the event this information is protected by the Federal Confidentiality of Alcohol and Drug Abuse Patient Records regulations: The Federal rules restrict any use of the information to criminally investigate or prosecute any alcohol or drug abuse patient.[facility] CenterIn the event this information is protected by the Federal Confidentiality of Alcohol and Drug Abuse Patient Records regulations: The Federal rules restrict any use of the information to criminally investigate or prosecute any alcohol or drug abuse patient.[facility] CenterIn the event this information is protected by the Federal Confidentiality of Alcohol and Drug Abuse Patient Records regulations: The Federal rules restrict any use of the information to criminally investigate or prosecute any alcohol or drug abuse patient.[facility] CenterIn the event this information is protected by the Federal Confidentiality of Alcohol and Drug Abuse Patient Records regulations: The Federal rules restrict any use of the information to criminally investigate or prosecute any alcohol or drug abuse patient.[facility] CenterIn the event this information is protected by the Federal Confidentiality of Alcohol and Drug Abuse Patient Records regulations: The Federal rules restrict any use of the information to criminally investigate or prosecute any alcohol or drug abuse patient.[facility] CenterIn the event this information is protected by the Federal Confidentiality of Alcohol and Drug Abuse Patient Records regulations: The Federal rules restrict any use of the information to criminally investigate or prosecute any alcohol or drug abuse patient.[facility] CenterIn the event this information is protected by the Federal Confidentiality of Alcohol and Drug Abuse Patient Records regulations: The Federal rules restrict any use of the information to criminally investigate or prosecute any alcohol or drug abuse patient.[facility] CenterIn the event this information is protected by the Federal Confidentiality of Alcohol and Drug Abuse Patient Records regulations: The Federal rules restrict any use of the information to criminally investigate or prosecute any alcohol or drug abuse patient.[facility] CenterIn the event this information is protected by the Federal Confidentiality of Alcohol and Drug Abuse Patient Records regulations: The Federal rules restrict any use of the information to criminally investigate or prosecute any alcohol or drug abuse patient.[facility] CenterIn the event this information is protected by the Federal Confidentiality of Alcohol and Drug Abuse Patient Records regulations: The Federal rules restrict any use of the information to criminally investigate or prosecute any alcohol or drug abuse patient.[facility] CenterIn the event this information is protected by the Federal Confidentiality of Alcohol and Drug Abuse Patient Records regulations: The Federal rules restrict any use of the information to criminally investigate or prosecute any alcohol or drug abuse patient.[facility] CenterIn the event this information is protected by the Federal Confidentiality of Alcohol and Drug Abuse Patient Records regulations: The Federal rules restrict any use of the information to criminally investigate or prosecute any alcohol or drug abuse patient.[facility] CenterIn the event this information is protected by the Federal Confidentiality of Alcohol and Drug Abuse Patient Records regulations: The Federal rules restrict any use of the information to criminally investigate or prosecute any alcohol or drug abuse patient.[facility] CenterIn the event this information is protected by the Federal Confidentiality of Alcohol and Drug Abuse Patient Records regulations: The Federal rules restrict any use of the information to criminally investigate or prosecute any alcohol or drug abuse patient.[facility] CenterIn the event this information is protected by the Federal Confidentiality of Alcohol and Drug Abuse Patient Records regulations: The Federal rules restrict any use of the information to criminally investigate or prosecute any alcohol or drug abuse patient.[facility] CenterIn the event this information is protected by the Federal Confidentiality of Alcohol and Drug Abuse Patient Records regulations: The Federal rules restrict any use of the information to criminally investigate or prosecute any alcohol or drug abuse patient.[facility] CenterIn the event this information is protected by the Federal Confidentiality of Alcohol and Drug Abuse Patient Records regulations: The Federal rules restrict any use of the information to criminally investigate or prosecute any alcohol or drug abuse patient.[facility] CenterIn the event this information is protected by the Federal Confidentiality of Alcohol and Drug Abuse Patient Records regulations: The Federal rules restrict any use of the information to criminally investigate or prosecute any alcohol or drug abuse patient.[facility] CenterIn the event this information is protected by the Federal Confidentiality of Alcohol and Drug Abuse Patient Records regulations: The Federal rules restrict any use of the information to criminally investigate or prosecute any alcohol or drug abuse patient.[facility] CenterIn the event this information is protected by the Federal Confidentiality of Alcohol and Drug Abuse Patient Records regulations: The Federal rules restrict any use of the information to criminally investigate or prosecute any alcohol or drug abuse patient.[facility] CenterIn the event this information is protected by the Federal Confidentiality of Alcohol and Drug Abuse Patient Records regulations: The Federal rules restrict any use of the information to criminally investigate or prosecute any alcohol or drug abuse patient.[facility] CenterIn the event this information is protected by the Federal Confidentiality of Alcohol and Drug Abuse Patient Records regulations: The Federal rules restrict any use of the information to criminally investigate or prosecute any alcohol or drug abuse patient.[facility] CenterIn the event this information is protected by the Federal Confidentiality of Alcohol and Drug Abuse Patient Records regulations: The Federal rules restrict any use of the information to criminally investigate or prosecute any alcohol or drug abuse patient.[facility] CenterIn the event this information is protected by the Federal Confidentiality of Alcohol and Drug Abuse Patient Records regulations: The Federal rules restrict any use of the information to criminally investigate or prosecute any alcohol or drug abuse patient.[facility] CenterIn the event this information is protected by the Federal Confidentiality of Alcohol and Drug Abuse Patient Records regulations: The Federal rules restrict any use of the information to criminally investigate or prosecute any alcohol or drug abuse patient.[facility] CenterIn the event this information is protected by the Federal Confidentiality of Alcohol and Drug Abuse Patient Records regulations: The Federal rules restrict any use of the information to criminally investigate or prosecute any alcohol or drug abuse patient.[facility] CenterIn the event this information is protected by the Federal Confidentiality of Alcohol and Drug Abuse Patient Records regulations: The Federal rules restrict any use of the information to criminally investigate or prosecute any alcohol or drug abuse patient.[facility] CenterIn the event this information is protected by the Federal Confidentiality of Alcohol and Drug Abuse Patient Records regulations: The Federal rules restrict any use of the information to criminally investigate or prosecute any alcohol or drug abuse patient.[facility] PRN Active and Recently Administ ered Medications (unrecognized section and content) Medication Order 02/10/2023 02/11/2023 02/12/2023 BUPivacaine (PF) 0.25 % (2.5 mg/mL) injection (SENSORCAINE MPF) (CANCELED) X (OR/PROCEDURE) PRN, Starting on Wed02/12/23 at 1349, Until Wed02/12/23 at 1401, Intraprocedure 1349 (Given - Provid er: Juan Daniel Contrreas MD) fentaNYL 50 mcg/mL injection (SUBLIMAZE) (CANCELED) X (OR/PROCEDURE) PRN, Starting on Wed02/12/23 at 1339, Until Wed02/12/23 at 1401, Intraprocedure 1339 (Given - Provid er: Neva Damon RN)1342 (Given - Provider: Neva Damon RN) iohexol IV injection (OMNIPAQUE 300) (CANCELED) X (OR/PROCEDURE) PRN, Starting on Wed02/12/23 at 1349, Until Wed02/12/23 at 1401, Intraprocedure 1349 (Given - Provid er: Juan Daniel Contreras MD) midazolam (PF) injection (VERSED) (CANCELED) X (OR/PROCEDURE) PRN, Starting on Wed02/12/23 at 1339, Until Wed02/12/23 at 1401, Intraprocedure 1332 (Given - Provid er: Neva Damon RN)1339 (Given - Provider: Neva Damon RN) triamcinolone acetonide injection (KeNALog 40) (CANCELED) X (OR/PROCEDURE) PRN, Starting on Wed02/12/23 at 1349, Until Wed02/12/23 at 1401, Intraprocedure 1349 (Given - Provid er: Juan Daniel Contreras MD) FOR RECORDS PERTAINING TO PATIENTS [...] BE BASED ON THE PRIMARY CLINICAL RECORDS. [facility]. provides no warranty or guarantee of the accuracy or completeness of information in this document.
[2025-07-01 01:38] LABS: Red Blood Cells-Urine > 100 SEEN /hpf (0-5); Squamous Epithelial Cells - UA 0-5 SEEN /hpf (5-10)
[2025-07-01 01:45] VITALS: BP 174/91; PULSE 67; RESP 18; O2SAT 97
[2025-07-01 02:46] LABS: Anion Gap 13 (5-15); BUN 13 mg/dL (4-19); BUN/Creat Ratio 15.5 RATIO (10-20); Calcium,Total 9.3 mg/dL (7.6-11.0); Carbon Dioxide 22.1 mmol/L (21.0-32.0); Chloride 105 mmol/L (98-108); Estimated Creatinine Clearance 106.67 ml/min (50-250); Glucose 275 mg/dL (70-99); Potassium 3.9 mmol/L (3.3-5.1)
[2025-07-01 03:00] VITALS: BP 155/98; PULSE 95; RESP 18; TEMP 36.6; O2SAT 95; O2SAT 96
--- NOTE | 2025-07-01 03:07 | EX.ED.DYSGE1 ---
HPI History of Present Illness Chief Complaint: Flank Pain Informant: patient Narrative Narrative: Patient is a 35-year-old female with past medical history of hypertension and kidney stones. She states she follows with a urologist at the [facility]. She states that the other day she underwent laser lithotripsy and had a stent placed secondary to a 7 to 8 mm right-sided kidney stone. She states she is taking [place] at home. She reports that today despite taking her medication she was having increased pain. She states her urologist told her that they would prefer the stent stay in place until middle of the week but if it was causing irritation and needed to come out she was safe to pull on her own at home. Patient states that because of her increased/persistent pain today she did remove the stent. Despite doing that pain persisted and therefore she presents for evaluation [facility] Medical History Right carpal tunnel syndrome Kidney stone Cancer Anemia Migraine headache History of GI bleed Non-smoker Shortness of breath on exertion Leg cramps Hypertension Cardiology follow-up encounter Vitamin D deficiency PTSD (post-traumatic stress disorder) Papillary thyroid carcinoma Lupus Lactose intolerance Fibromyalgia DDD (degenerative disc disease) Congenital hip deformity Congenital heart defect Chronic fatigue Back pain Anxiety Bloating Environmental allergies Asthma Home Medications ?Medication ?Instructions ?Recorded ?Last Taken ?Type albuterol sulfate 90 mcg/actuation 1 - 2 puff inhalation Q4H PRN PRN 11/06/19 Unknown History aerosol inhaler Sob &/Or Wheezing rizatriptan 10 mg tablet (Maxalt) 10 mg PO PRN PRN MIGRAINES 10/28/22 Unknown History tramadol 50 mg tablet 50 mg PO Q6H PRN Pain 04/05/23 03/18/25 History cyclobenzaprine 10 mg tablet 10 mg PO TID PRN Muscle Spasm #20 03/13/24 Unknown Rx TABLETS cariprazine 1.5 mg capsule 1.5 mg PO DAILY 05/13/24 03/18/25 History (Ambroselagigi) scopolamine base 1 mg over 3 days 1 patch transdermal Q3D PRN nasuea 01/19/25 Unknown Rx transdermal patch #24 ea hydrochlorothiazide 25 mg tablet 25 mg PO DAILY 03/19/25 03/18/25 History levothyroxine 200 mcg tablet 200 mcg PO DAILY 03/19/25 03/18/25 History levothyroxine 25 mcg tablet 25 mcg PO MOWE 03/19/25 03/14/25 History ondansetron 4 mg disintegrating 4 mg PO Q8H PRN PRN Nausea #10 tabs 03/19/25 Unknown Rx tablet prazosin 2 mg capsule 2 mg PO QHS 03/19/25 03/18/25 History quetiapine 50 mg tablet 50 mg PO QHS 03/19/25 03/18/25 History promethazine 12.5 mg tablet 12.5 mg PO TID PRN nausea and 04/10/25 Unknown Rx vomiting #30 tabs promethazine 25 mg rectal 25 mg [place] Q6H PRN nausea and 04/17/25 Unknown Rx suppository vomiting #12 ea oxycodone-acetaminophen 5 mg-325 1 tab PO Q6H PRN pain 5 days #20 07/01/25 Unknown Rx mg tablet (Percocet) tabs Allergy/AdvReac Type Severity Reaction Status Date / Time amphetamine (From Adderall) Allergy Severe unknown Verified 07/01/25 00:39 dextroamphetamine (From Allergy Severe unknown Verified 07/01/25 00:39 Adderall) adhesive tape Allergy Intermediate Rash Verified 07/01/25 00:39 morphine Allergy Rash Verified 07/01/25 00:39 Family History Mother Asthma Diabetes Hypertension Crohn's disease Kidney disease Father Hypertension Sister Bone cancer Other Bipolar 1 disorder Surgical History Hx of thyroidectomy Hx of esophagogastroduodenoscopy Hx of colonoscopy History of cystoscopy Hx of tubal ligation History of sinus surgery Hx of cholecystectomy S/P right knee arthroscopy Social History Smoking Status: Never smoker alcohol intake: never ROS ROS ED Constitutional Constitutional ED: Denies chills or fever(s) ENT ENT ED: Denies sore throat Cardiovascular Cardiovascular: Denies chest pain Respiratory/Chest Respiratory/Chest: Denies cough or dyspnea Gastrointestinal Gastrointestinal: Reports abdominal pain and nausea; Denies diarrhea or vomiting Genitourinary Genitourinary ED: Reports hematuria; Denies dysuria Musculoskeletal Musculoskeletal: Reports back pain Integumentary Denies rash Neurologic Neurologic: Denies headache(s) Hematologic/Lymphatic Hematologic/Lymphatic: Denies easy bleeding or easy bruising EXAM Physical Exam Const Vital Signs: 07/01/25 00:39 07/01/25 00:44 07/01/25 01:45 Temperature 98 F Temperature Source Oral Pulse Rate 74 67 Respiratory Rate 14 18 Respiratory Effort Normal Blood Pressure 190/98 H 174/91 H Blood Pressure Mean 128 118 Pulse Ox 99 97 Oxygen Delivery Method Room Air Room Air 07/01/25 03:00 07/01/25 03:00 Temperature 98 F Temperature Source Pulse Rate 95 95 Respiratory Rate 18 18 Respiratory Effort Blood Pressure 155/98 H 155/98 H Blood Pressure Mean 117 117 Pulse Ox 96 95 Oxygen Delivery Method Room Air Positive well nourished and well developed General Appearance ED: well developed; Negative for pallor HEENT HEENT Narrative: Normocephalic atraumatic Eyes PERRL and EOMs intact bilaterally General Eye ED: Negative for scleral icterus Neck supple Neck Narrative: No nuchal rigidity or meningeal signs Resp normal respiratory effort and clear to auscultation bilaterally Cardio regular rate and regular rhythm Rate: other Other Details: Heart is regular rate and rhythm without murmurs rubs or gallops Radial and carotid pulses are equal and symmetric GI non-distended and no masses GI Narrative: Abdomen is soft and nondistended with hypoactive bowel sounds. There is diffuse pain along the right lateral abdomen. No voluntary guarding or rigidity. No organomegaly to suggest urinary retention. No pulsatile mass Auscultation: hypoactive bowel sounds Palpation: soft Back/Spine Back/Spine Narrative: Positive right CVA pain noted Extremity normal to inspection Neuro oriented x3, CN's II-XII intact bilaterally and no sensory deficits noted Sensorium / Orientation: alert Motor Exam: strength 5/5 throughout Psych Mood & Affect: anxious Skin no rashes or lesions noted and no wounds Skin Narrative: No overlying soft tissue changes to suggest trauma or infection General Skin Exam: Negative for jaundice or pallor MDM MDM MDM Narrative Medical decision making narrative: Patient arrived to the ER hypertensive but has a past medical history of this and is in pain so this is to be expected and otherwise vitals are stable. With her report of recent kidney stone and lithotripsy but now persistent pain there is concern for reaccumulation of stone fragments versus acute kidney injury versus urosepsis versus ureteral rupture. Secondary to his basic labs were obtained with a CT scan. Labs reveal leukocytosis but urine sample shows no sign of infection and therefore I feel this is most likely stress response secondary to her recent procedure and pain. CT scan shows resolution of her kidney stone but there is hydronephrosis on the right consistent with ureteral spasm but there is no rupture. The blood work also confirms no signs of acute kidney injury. After receiving fluid and IV medication the patient had significant improvement of her pain and her blood pressure improved with this. Therefore at this time she does not have findings of urosepsis or acute kidney injury or ureteral rupture and her pain has improved so therefore there is no need for emergent urology consultation or admission and she is otherwise safe for discharge History & Record Review Discussion w/independent historian: Patient Lab Data Attestation: I reviewed the patient's lab results. Labs: Laboratory Results - last 24 hr 07/01/25 07/01/25 01:07 01:13 WBC 15.0 H RBC 4.61 Hgb 13.2 Hct 37.4 MCV 81.1 MCH 28.6 MCHC 35.3 RDW Std Deviation 39.6 RDW Coeff of Ame 13.5 Plt Count 222 MPV 9.7 Immature Gran % (Auto) 1.900 H Neut % (Auto) 65.3 Lymph % (Auto) 26.3 [place] % (Auto) 5.6 Eos % (Auto) 0.7 Baso % (Auto) 0.2 Absolute Neuts (auto) 9.8 H Absolute Lymphs (auto) 3.93 Nucleated RBC % 0 Sodium 139 Potassium 3.9 Chloride 105 Carbon Dioxide 22.1 Anion Gap 13 BUN 13 Creatinine 0.84 Estim Creat Clear Calc 106.67 Est GFR (MDRD) Non-Af 94 BUN/Creatinine Ratio 15.5 Glucose 275 H Calcium 9.3 Urine Color Red Urine Clarity Cloudy Urine pH 6.5 Ur Specific [place] 1.020 Urine Protein 100 H Urine Glucose (UA) 1000 H Urine Ketones Negative Urine Occult Blood 250 H Urine Nitrite Negative Urine Bilirubin Negative Urine Urobilinogen Normal Ur Leukocyte Esterase 100 H Urine RBC > 100 SEEN Urine WBC 0 SEEN Ur Squamous Epith Cells 0-5 SEEN Urine Bacteria 0 SEEN Urine Mucus 0 SEEN Radiography Diagnostic Testing: Clinical Impression(s) from Imaging Studies Abdomen/Pelvis CT 07/01/25 00:54 IMPRESSION: Marked right-sided hydronephrosis, without ureteral stone. Findings suggest a recently passed ureteral stone with residual UVJ spasm/edema. Bilateral nephrolithiasis. Reading Location: [place] [address] Discharge Plan Triage Chief Complaint: Flank Pain Other Complaint: Chest Pain ED Provider: Ron Pate Dx/Rx/DC Orders Clinical Impression: Hydronephrosis, Right flank pain, Hypertension Instructions: Understanding Hydronephrosis, ED Kidney Stone, Passed Prescriptions: New oxycodone-acetaminophen [Percocet] 5-325 mg tablet 1 tab PO Q6H PRN (Reason: pain) 5 Days Qty: 20 0RF No Action rizatriptan [Maxalt] 10 mg tablet 10 mg PO PRN PRN (Reason: MIGRAINES) scopolamine base 1 mg over 3 days patch 3 day 1 patch transdermal Q3D PRN (Reason: nasuea ) Qty: 24 2RF promethazine 12.5 mg tablet 12.5 mg PO TID PRN (Reason: nausea and vomiting) Qty: 30 2RF albuterol sulfate 1 INHALER inhaler 1 - 2 puff inhalation Q4H PRN MDD \ PRN (Reason: Sob &/Or Wheezing) tramadol 50 mg Tablet 50 mg PO Q6H PRN (Reason: Pain) cyclobenzaprine 10 mg tablet 10 mg PO TID PRN (Reason: Muscle Spasm) Qty: 20 0RF Vraylar 1.5 mg capsule 1.5 mg PO DAILY promethazine 25 mg suppository 25 mg [place] Q6H PRN (Reason: nausea and vomiting) Qty: 12 0RF hydrochlorothiazide 25 mg tablet 25 mg PO DAILY prazosin 2 mg capsule 2 mg PO QHS quetiapine 50 mg tablet 50 mg PO QHS levothyroxine 200 mcg tablet 200 mcg PO DAILY levothyroxine 25 mcg tablet 25 mcg PO MOWE Rx Instructions: WITH 200MCG ondansetron 4 mg tablet,disintegrating 4 mg PO Q8H PRN PRN (Reason: Nausea) Qty: 10 0RF Primary Care Provider: Nagi Blanc Referrals: Nagi Blanc MD [Primary Care Provider] - Activity Restrictions/Additional Instructions: Please stop the hydrocodone/[place] and begin taking the Percocet along with your Toradol that you have at home to help control your pain. The CT scan today shows your stone is passed but the ureter is swollen and inflamed. This should resolve over the next few days. If you develop a fever or have intractable pain despite taking your medications please return to the ER for repeat evaluation Print Language: Japanese Disposition Disposition: Home, Self Care Discharge Date/Time: 07/01/25 03:17
== END 2025-07-01 03:17 | disposition home or self-care (01) ==
PROVIDERS: Emergency Provider Emergency Medicine; PCP Family Medicine; Visit Provider Emergency Medicine
DX: N13.2 Hydronephrosis with renal and ureteral calculous obstruction (principal); I10 Essential (primary) hypertension; Z87.442 Personal history of urinary calculi; J45.909 Unspecified asthma, uncomplicated; R10.9 Unspecified abdominal pain
CPT/HCPCS: 74176; 80048; 81001; 85025; 96361; 96374; 96375; 96376; 99285; A4216; J2405

== ENCOUNTER 2025-10-31 16:27 | Emergency (ER) | payer MEDICAID, SELFPAY ==
[2025-10-31 16:28] VITALS: BP 179/107; PULSE 82; RESP 16; TEMP 36.8; O2SAT 100; BMI 34.2
--- NOTE | 2025-10-31 17:08 | EX.ED.DYSGE1 ---
HPI History of Present Illness Chief Complaint: Complaint Informant: patient Onset/Context/Timing Onset: Yesterday Context: Gradual Onset Timing: Continuous Quality: Cramping, burning, pressure Location: Left flank and suprapubic area Worsened by: Ambulation Relieved by: Laying down for a while Narrative Narrative: Patient presents with left flank pain and suprapubic pain that began yesterday. Patient states she had recent urologic surgery. Patient states she had her stents removed yesterday. Patient states that she started having pain last night. Patient describes it as cramping, burning, and pressure. Patient states the pain is over the suprapubic area and left flank. Patient states her pain is worse with ambulation. Patient states her pain is better when she is able to lay down for a while. Patient had a temperature of 100.7 last night. Patient admits to some nausea with vomiting. [facility] Medical History Migraine headache without aura Endometriosis Benign heart murmur Right carpal tunnel syndrome Kidney stone Cancer Anemia Migraine headache History of GI bleed Non-smoker Shortness of breath on exertion Leg cramps Hypertension Cardiology follow-up encounter Vitamin D deficiency PTSD (post-traumatic stress disorder) Papillary thyroid carcinoma Lupus Lactose intolerance Fibromyalgia DDD (degenerative disc disease) Congenital hip deformity Congenital heart defect Chronic fatigue Back pain Anxiety Bloating Environmental allergies Asthma Home Medications ?Medication ?Instructions ?Recorded ?Last Taken ?Type albuterol sulfate 90 mcg/actuation 1 - 2 puff inhalation Q4H PRN PRN 11/06/19 Unknown History aerosol inhaler Sob &/Or Wheezing rizatriptan 10 mg tablet (Maxalt) 10 mg PO PRN PRN MIGRAINES 10/28/22 Unknown History tramadol 50 mg tablet 50 mg PO Q6H PRN Pain 04/05/23 03/18/25 History cyclobenzaprine 10 mg tablet 10 mg PO TID PRN Muscle Spasm #20 03/13/24 Unknown Rx TABLETS cariprazine 1.5 mg capsule 1.5 mg PO DAILY 05/13/24 03/18/25 History (Vraylar) scopolamine base 1 mg over 3 days 1 patch transdermal Q3D PRN nasuea 01/19/25 Unknown Rx transdermal patch #24 ea hydrochlorothiazide 25 mg tablet 25 mg PO DAILY 03/19/25 03/18/25 History levothyroxine 200 mcg tablet 200 mcg PO DAILY 03/19/25 03/18/25 History levothyroxine 25 mcg tablet 25 mcg PO MOWE 03/19/25 03/14/25 History ondansetron 4 mg disintegrating 4 mg PO Q8H PRN PRN Nausea #10 tabs 03/19/25 Unknown Rx tablet prazosin 2 mg capsule 2 mg PO QHS 03/19/25 03/18/25 History quetiapine 50 mg tablet 50 mg PO QHS 03/19/25 03/18/25 History promethazine 12.5 mg tablet 12.5 mg PO TID PRN nausea and 04/10/25 Unknown Rx vomiting #30 tabs promethazine 25 mg rectal 25 mg [place] Q6H PRN nausea and 04/17/25 Unknown Rx suppository vomiting #12 ea oxycodone-acetaminophen 5 mg-325 1 tab PO Q6H PRN pain 5 days #20 07/01/25 Unknown Rx mg tablet (Percocet) tabs hydrocodone-acetaminophen 5-325mg 1 tab PO Q6H PRN PRN Pain 3 days 10/31/25 Unknown Rx 5mg-325mg #10 TABLETS sulfamethoxazole 800 1 tab PO BID #14 TABLETS 10/31/25 Unknown Rx mg-trimethoprim 160 mg tablet Allergy/AdvReac Type Severity Reaction Status Date / Time amphetamine (From Adderall) Allergy Severe unknown Verified 10/31/25 16:28 dextroamphetamine (From Allergy Severe unknown Verified 10/31/25 16:28 Adderall) adhesive tape Allergy Intermediate Rash Verified 10/31/25 16:28 morphine Allergy Rash Verified 10/31/25 16:28 Family History Mother Asthma Diabetes Hypertension Crohn's disease Kidney disease Father Hypertension Sister Bone cancer Other Bipolar 1 disorder Surgical History Hx of thyroidectomy Hx of esophagogastroduodenoscopy Hx of colonoscopy History of cystoscopy Hx of tubal ligation History of sinus surgery Hx of cholecystectomy S/P right knee arthroscopy Social History Smoking Status: Never smoker alcohol intake: never ROS ROS ED Constitutional Constitutional ED: Reports fever(s); Denies chills Eyes Eyes: Denies blurry vision or change in vision ENT ENT ED: Denies rhinorrhea or sore throat Cardiovascular Cardiovascular: Reports chest pain; Denies palpitations Respiratory/Chest Respiratory/Chest: Denies cough or dyspnea Gastrointestinal Gastrointestinal: Reports nausea and vomiting Genitourinary Genitourinary ED: Reports dysuria; Denies hematuria Musculoskeletal Musculoskeletal: Denies back pain or neck pain Integumentary Denies abscess or rash Neurologic Neurologic: Denies headache(s) or weakness Allergic/Immunologic Allergic/Immunologic ED: Denies mouth swelling or urticaria EXAM Physical Exam Const Vital Signs: 10/31/25 16:28 10/31/25 17:36 10/31/25 18:00 Temperature 98.2 F 98.7 F 98.9 F Temperature Source Oral Oral Oral Pulse Rate 82 84 75 Respiratory Rate 16 16 16 Blood Pressure 179/107 H 161/104 H 151/91 H Blood Pressure Mean 131 123 111 Pulse Ox 100 98 99 Oxygen Delivery Method Room Air Room Air Room Air 10/31/25 20:00 10/31/25 20:53 Temperature 98 F Temperature Source Pulse Rate 77 98 Respiratory Rate 15 18 Blood Pressure 144/93 H 144/93 H Blood Pressure Mean 110 110 Pulse Ox 95 99 Oxygen Delivery Method Room Air Positive well nourished and well developed Constitutional Narrative: BMI is 34.3. General Appearance ED: well developed and NAD HEENT Reports moist mucous membranes Neck supple and no JVD Resp normal respiratory effort and clear to auscultation bilaterally Cardio regular rate and regular rhythm GI non-distended Palpation: soft and tender suprapubic; Negative for guarding or rebound tenderness present Back/Spine General Back: CVA tenderness left MDM MDM MDM Narrative Medical decision making narrative: Differential diagnosis limited to pyelonephritis, urinary tract infection, electrolyte abnormality, and chronic kidney disease. CBC will be obtained to assess for leukocytosis and anemia. Basic metabolic profile will be obtained to assess for electrolyte abnormality renal function. Urinalysis will be obtained to assess for urinary tract infection and hematuria. CT scan of the abdomen and pelvis will be obtained to assess for pyelonephritis and ureteral calculus. Lab Data Attestation: I reviewed the patient's lab results. Lab results narrative: CBC was reviewed. There is a mild leukocytosis of 11.3. The remainder was within normal limits. Basic metabolic profile was reviewed. Glucose was mildly elevated at 167. The remainder was within normal limits. Urinalysis was reviewed. There is cloudy yellow urine. Occult blood was 250. There are greater than 100 red blood cells. There is 2+ bacteria. There are 5-10 white blood cells and 5-10 epithelial cells. Leukocyte Estrace was negative. Labs: Laboratory Results - last 24 hr 10/31/25 18:01 WBC 11.3 H RBC 4.23 Hgb 12.6 Hct 35.6 L MCV 84.2 MCH 29.8 MCHC 35.4 RDW Std Deviation 41.5 RDW Coeff of Ame 13.6 Plt Count 197 MPV 9.5 Immature Gran % (Auto) 2.700 H Neut % (Auto) 65.5 Lymph % (Auto) 23.3 [place] % (Auto) 5.5 Eos % (Auto) 2.3 Baso % (Auto) 0.7 Absolute Neuts (auto) 7.4 Absolute Lymphs (auto) 2.63 Nucleated RBC % 0 Sodium 140 Potassium 3.7 Chloride 103 Carbon Dioxide 25.7 Anion Gap 11 BUN 9 Creatinine 0.66 L Estim Creat Clear Calc 135.71 Est GFR (MDRD) Non-Af 118 BUN/Creatinine Ratio 13.3 Glucose 167 H Calcium 9.4 Urine Color Yellow Urine Clarity Cloudy Urine pH 7.0 Ur Specific [place] 1.015 Urine Protein 100 H Urine Glucose (UA) Normal Urine Ketones Negative Urine Occult Blood 250 H Urine Nitrite Negative Urine Bilirubin Negative Urine Urobilinogen Normal Ur Leukocyte Esterase Negative Urine RBC > 100 SEEN Urine WBC 5-10 SEEN Ur Squamous Epith Cells 5-10 SEEN Amorphous Sediment 2+ Urine Bacteria 2+ Urine Mucus 2+ Radiography Diagnostic Testing: Clinical Impression(s) from Imaging Studies Abdomen/Pelvis CT 10/31/25 17:34 IMPRESSION: Mild left hydroureteronephrosis without visualized obstructing calculus which may represent passage of a recent calculus. Correlate with urinalysis to exclude ascending infection. Reading Location: [facility] CT scan of the abdomen and pelvis was obtained. There is mild left hydronephrosis and hydroureter. There is no ureteral calculus. There is no free fluid or free air. This was interpreted by the radiologist. I also independently reviewed the images and did not see any free air or free fluid. I did not see any perinephric stranding. Additional Tests and Interventions Additional Tests or Interventions: Urine culture was ordered. Treatment and Re-Evaluation :: Patient was given IV fluids, Zofran, and Dilaudid. Patient was given a repeat dose of Dilaudid. Patient was advised of her findings. Patient was given a dose of Bactrim here. Patient was given a prescription for Bactrim. Patient was instructed to follow-up with her primary care physician and urologist in 3 to 5 days. Patient understood and was agreeable with the plan. All questions were answered. Discharge Plan Triage Chief Complaint: Complaint ED Provider: Joaquín Loja Dx/Rx/DC Orders Clinical Impression: Urinary tract infection, Acute left flank pain Instructions: ED Pyelonephritis, Female (Adult), ED Cystitis Female Adult Prescriptions: New hydrocodone-acetaminophen 5-325 mg tablet 1 tab PO Q6H PRN PRN (Reason: Pain) 3 Days Qty: 10 0RF sulfamethoxazole-trimethoprim 800-160 mg tablet 1 tab PO BID Qty: 14 0RF No Action rizatriptan [Maxalt] 10 mg tablet 10 mg PO PRN PRN (Reason: MIGRAINES) scopolamine base 1 mg over 3 days patch 3 day 1 patch transdermal Q3D PRN (Reason: nasuea ) Qty: 24 2RF promethazine 12.5 mg tablet 12.5 mg PO TID PRN (Reason: nausea and vomiting) Qty: 30 2RF albuterol sulfate 1 INHALER inhaler 1 - 2 puff inhalation Q4H PRN MDD \ PRN (Reason: Sob &/Or Wheezing) tramadol 50 mg Tablet 50 mg PO Q6H PRN (Reason: Pain) cyclobenzaprine 10 mg tablet 10 mg PO TID PRN (Reason: Muscle Spasm) Qty: 20 0RF Vraylar 1.5 mg capsule 1.5 mg PO DAILY promethazine 25 mg suppository 25 mg [place] Q6H PRN (Reason: nausea and vomiting) Qty: 12 0RF oxycodone-acetaminophen [Percocet] 5-325 mg tablet 1 tab PO Q6H PRN (Reason: pain) 5 Days Qty: 20 0RF hydrochlorothiazide 25 mg tablet 25 mg PO DAILY prazosin 2 mg capsule 2 mg PO QHS quetiapine 50 mg tablet 50 mg PO QHS levothyroxine 200 mcg tablet 200 mcg PO DAILY levothyroxine 25 mcg tablet 25 mcg PO MOWE Rx Instructions: WITH 200MCG ondansetron 4 mg tablet,disintegrating 4 mg PO Q8H PRN PRN (Reason: Nausea) Qty: 10 0RF Primary Care Provider: Nagi Blanc Referrals: Nagi Blanc MD [Primary Care Provider, Family Practice] - 5-7 Days Print Language: Welsh Disposition Disposition: Home, Self Care Discharge Date/Time: 10/31/25 20:57
--- NOTE | 2025-10-31 17:34 | CT_ITS ---
PROCEDURE: ABDOMEN/PELVIS WITHOUT CONT 10/31/2025 REASON FOR EXAM: LEFT FLANK PAIN TECHNIQUE: Procedure Code: CTABDPEL Modality: CT Procedure: ABDOMEN/PELVIS WITHOUT CONT Noncontrast technique limits evaluation of the abdominal and pelvic viscera. Coronal and Sagittal reconstruction series were provided. One or more dose reduction techniques were used (e.g., Automated exposure control, adjustment of the mA and/or kV according to patient size, use of iterative reconstruction technique). RADIATION DOSE SUMMARY: CTDlvol: 13 mGy DLP: 137 mGycm COMPARISON: 07/01/2025. FINDINGS: The lung bases are clear. The peripheral soft tissues are unremarkable. Normal caliber abdominal aorta. No suspicious lymphadenopathy. Hypodense liver indicating steatosis. The gallbladder is surgically absent. The pancreas, spleen, and adrenals unremarkable. Punctate right kidney nonobstructive calculi. No right hydroureteronephrosis. Mild left hydroureteronephrosis with mild left periureteral stranding. No visualized left ureteral calculus. Punctate nonobstructive calculi within the left kidney. The urinary bladder is unremarkable. Normal caliber large and small bowel without surrounding inflammatory changes. CT/Abdomen/Pelvis without Cont IMPRESSION: Mild left hydroureteronephrosis without visualized obstructing calculus which m ay represent passage of a recent calculus. Correlate with urinalysis to exclude ascending infection. Reading [facility]
[2025-10-31 17:36] VITALS: BP 161/104; PULSE 84; RESP 16; TEMP 37.1; O2SAT 98
[2025-10-31] MEDS: 0.9% Normal Saline (1000mL) 1,000 ML 1000 ML IV (17:53)
[2025-10-31 18:00] VITALS: BP 151/91; PULSE 75; RESP 16; TEMP 37.2; O2SAT 99
--- OUTSIDE RECORDS SUMMARY | 2025-10-31 18:07 | XMS RPT_ITS | CCD ---
Author Organization [facility] Providers Care Telephone Messenger Name Role Phone Nagi Red MD Primary Care Provider Nagi Red MD Unavailable Nagi Red MD Primary Care Provider Nagi Red MD Primary Care Provider Nagi Red MD Unavailable [phone] Nagi Red MD Primary Care Provider COOC DOCLAIRE Admitting Unavailable COCO DOCLAIRE Attending Unavailable NAGI RED Primary Care Unavailable ANTONIO [phone], AMIRA Lawrence Consulting Unavailable COCO DOCLAIRE Consulting [...] DR SENA Barrett Attending Unavaila ana ALVAREZ [phone], AMIRA Lawrence Consulting Unavailable NAGI RED Consulting [...] Unavailable RUSTY HARDY, PAOLA Lawrence Consulting Unavailable DANIELLA NAGI Arnold Consulting Unavailable Daniella HARDY, Nagi Barrett Primary Care Provider [phone] Nagi Red MD Unavailable Daniella HARDY, Nagi Barrett Primary Care Provider [phone] Nagi Red MD Primary Care Provider [phone] Regan CUSTOMER SUPPORT ANALYST.SHELF DRIER OPERATOR, Renard Unavailable Christine Dean PA-C Unavailable NAGI RED MD Consulting Unavailable IRAM SARMIENTO Attending Unavailable IRAM SARMIENTO Primary Care Unavailable IRAM SARMIENTO Admitting Unavailable NAGI RED MD Referring Unavailable PROVIDER, UNKNOWN Consulting Unavailable Regan CUSTOMER SUPPORT ANALYST.SHELF DRIER OPERATOR, Renard Unavailable Jermaine ALCOCER Christine Unavailable SARAH MIRAMONTES Attending Unavailable DANIELLA, NAGI A Referring Unavailable DANIELLA, NAGI A Primary Care Unavailable DANIELLA, NAGI A Primary Care Unavailable DANIELLA, NAGI A Referring Unavailable AKI, CAITLYN Attending Unavailable AZARUDOLPH ROJASA Attending Unavailable AZARYAN, CAITLYN Referring Unavailable DANIELLA, NAGI A Primary Care Unavailable DANIELLA, NAGI A Primary Care Unavailable DANIELLA, NAGI A Referring Unavailable AZARYAN CAITLYN Attending Unavailable Daniella, Nagi Primary Care Unavailable Jose Antonio Kee Attending Unavailable Daniella, Nagi Primary Care Unavailable Taylor Samuel Attending Unavailable Taylor Samuel Referring Unavailable Daniella, Nagi Primary Care Unavailable Kate Gonzáles Referring Unavailable Kate Gonzáles Attending Unavailable Daniella, Nagi Primary Care Unavailable Ungur, Remus Referring Unavailable Ungur, Remus Attending Unavailable Daniella, Nagi Primary Care Unavailable Taylor Samuel Referring Unavailable Taylor Samuel Attending Unavailable Taylor Samuel Attending Unavailable Taylor Samuel Referring Unavailable Daniella, Nagi Primary Care Unavailable Thaddeus Moya Referring Unavailable MollisonThaddeus Attending Unavailable Daniella, Nagi Primary Care Unavailable Daniella, Nagi Primary Care Unavailable Taylor Samuel Attending Unavailable Taylor Samuel Referring Unavailable Taylor Samuel Attending Unavailable Taylor Samuel Referring Unavailable Daniella, Nagi Primary Care Unavailable Assessment, Health Risk Referring Unavaila ble Assessment, Health Risk Attending Unavaila ble Daniella, Nagi Primary Care Unavailable Daniella, Nagi Primary Care Unavailable Daniella, Nagi Referring Unavailable Taylor Samuel Attending Unavailable Daniella, Nagi Primary Care Unavailable Ludin Adams Attending Unavailable Daniella, Nagi Primary Care Unavailable Ron Pate Attending Unavailable Ludin Adams Attending Unavailable Daniella, Nagi Primary Care Unavailable Daniella, Nagi Primary Care Unavailable Daniella, Nagi Referring Unavailable Taylor Samuel Attending Unavailable Thaddeus Moya Attending Unavailable Daniella, Nagi Referring Unavailable Daniella, Nagi Primary Care Unavailable Daniella, Nagi Referring Unavailable Daniella, Nagi Primary Care Unavailable Taylor Samuel Attending Unavailable Daniella, Nagi Referring Unavailable Daniella, Nagi Primary Care Unavailable Alyssa Sanchez Attending Unavailable Daniella, Nagi Referring Unavailable Daniella, Nagi Primary Care Unavailable Alyssa Sanchez Attending Unavailable Daniella, Nagi Referring Unavailable Daniella, Nagi Primary Care Unavailable Roselia Arrieta Attending Unavailabl e DANIELLA, NAGI A Primary Care Unavailable JUAN DANIEL CONTRERAS Attending Unavailable JUAN DANIEL CONTRERAS Admitting Unavailable DANIELLA, NAGI A Primary Care Unavailable JUAN DANIEL CONTRERAS Attending Unavailable JUAN DANIEL CONTRERAS Admitting Unavailable JUAN DANIEL CONTRERAS Admitting Unavailable DANIELLA, NAGI A Primary Care Unavailable JUAN DANIEL CONTRERAS Attending Unavailable DANIELLA, NAGI A Primary Care Unavailable BOBBY PAIZ Attending Unavailable DANIELLA, NAGI A Primary Care Unavailable CHRISTINE DEAN Referring Unavailable DANIELLA, NAGI A Primary Care Unavailable CARLIE BROWNLEE Attending Unavailable DANIELLA, NAGI A Referring Unavailable DANIELLA, NAGI A Primary Care Unavailable DANIELLA, NAGI A Referring Unavailable DANIELLA, NAGI A Primary Care Unavailable CARLIE BROWNLEE Attending Unavailable DANIELLA, NAGI A Primary Care Unavailable DANIELLA, NAGI A Primary Care Unavailable DANIELLA, NAGI A Primary Care Unavailable DANIELLA, NAGI A Referring Unavailable DANIELLA, NAGI A Primary Care Unavailable SELF Referring Unavailable CARLIE BROWNLEE Attending Unavailable DANIELLA, NAGI A Primary Care Unavailable RENARD ALMODOVAR Attending Unavailable DANIELLA, NAGI A Primary Care Unavailable DANIELLA, NAGI A Referring Unavailable DANIELLA, NAGI A Attending Unavailable DANIELLA, NAGI A Primary Care Unavailable DANIELLA, NAGI A Referring Unavailable DANIELLA, NAGI A Primary Care Unavailable RENARD ALMODOVAR Attending Unavailable DANIELLA, NAGI A Primary Care Unavailable MBANUGO, GRETA Referring Unavailable DANIELLA, NAGI A Primary Care Unavailable CHRISTINE DEAN Attending Unavailable DANIELLA, NAGI A Primary Care Unavailable BOBBY PAIZ Referring Unavailable DANIELLA, NAGI A Attending Unavailable SELF Referring Unavailable DANIELLA, NAGI A Primary Care Unavailable DANIELLA, NAGI A Primary Care Unavailable CHRISTINE DEAN Attending Unavailable DANIELLA, NAGI A Primary Care Unavailable DANIELLA, NAGI A Primary Care Unavailable DANIELLA, NAGI A Primary Care Unavailable DANIELLA, NAGI A Attending Unavailable DANIELLA, NAGI A Attending Unavailable DANIELLA, NAGI A Primary Care Unavailable MBANUGO, GRETA Attending Unavailable DANIELLA, NAGI A Primary Care Unavailable MBANUGO, GRETA Referring Unavailable DANIELLA, NAGI A Primary Care Unavailable MBANUGO, GRETA Attending Unavailable DANIELLA, NAIG A Referring Unavailable DANIELLA, NAGI A Primary Care Unavailable MBANUGO, GRETA Attending Unavailable DANIELLA, NAGI A Primary Care Unavailable JEN ROBERTSON Attending Unavailable DANIELLA, NAGI A Primary Care Unavailable MBANUGO, GRETA Admitting Unavailable MBANUGO, GRETA Attending Unavailable DANIELLA, NAGI A Primary Care Unavailable MBANUGO, GRETA Attending Unavailable DANIELLA, NAGI A Primary Care Unavailable Allergies Allergy Classification Reported Allergen(s) Allergy Type Date of Onset Reaction(s) Facility Amphetamine / Dextroamphetamine (1 source) Amphetamine / Dextroamphetamine Drug Allergy 020 Palpitations [facility] Amphetamine aspartate / Amphetamine Sulfate / Dextroamphetamine saccharate / Dextroamphetamine Sulfate (4 sources) Amphetamine aspartate / Amphetamine Sulfate / Dextroamphetamine saccharate / Dextroamphetamine Sulfate Drug Allergy 015 Intolerance [facility] Work Phone: Opioid Agonists (5 sources) Morphine Drug Allergy 008 Itching [facility] (6 sources) Amphetamine / Dextroamphetamine Drug Allergy Palpitations [facility] (8 sources) Morphine Drug Allergy 020 Itching [facility] (9 sources) Wound Dressing Adhesive Propensity to adverse reactions to drug Itching [facility] (20 sources) Adhesive agent; Translations: [ADHESIVE] Drug Allergy 010 Rash [facility] Work Phone: (20 sources) Amphetamine aspartate / Amphetamine Sulfate / Dextroamphetamine saccharate / Dextroamphetamine Sulfate; Translations: [DEXTROAMPHETAMINE-A MPHETAMINE] Drug Allergy 015 Intolerance [facility] Work Phone: [phone] (20 sources) Morphine; Translations: [MORPHINE SULFATE] Drug Allergy 008 Itching [facility] Work Phone: (20 sources) animals [Other] Propensity to adverse reactions 005 Unknown [facility] Work Phone: [phone] (20 sources) Environmental allergies [Other] Propensity to adverse reactions 008 Unknown [facility] Work Phone: (1 source) Amphetamine / Dextroamphetamine Drug Allergy [facility] Repository (1 source) Morphine Drug Allergy [facility] Repository (1 source) Amphetamine / Dextroamphetamine Drug Allergy [facility] Repository (1 source) Morphine Drug Allergy [facility] Repository (2 sources) Amphetamine / Dextroamphetamine Drug Allergy 020 Palpitations [facility] (1 source) Adhesive Tape Drug allergy (disorder) [facility] Repository (1 source) Amphetamine Drug Allergy [facility] Repository (1 source) Dextroamphetamine Drug Allergy [facility] Repository (1 source) Morphine Drug Allergy [facility] Repository Medications Current Medications Medication Drug Class(es) Dates Sig (Normalized) Sig (Original) acetaminophen 325 mg / HYDROcodone bitartrate 5 mg oral tablet (3 sources) Opioid Agonist Start: 06-26-2025 End: 07-03-2025 take 1 tablet by mouth every six hours as needed hydroCODone-aceta minophen 5-325 MG tablet Take 1 tablet by mouth every 6 hours as needed. for up to 7 days 06/26/2025 Active Start: 06-25-2025 End: 06-28-2025 take 1 tablet by mouth every eight hours as needed for pain HYDROcodone-acetaminophen (NORCO) 5-325 mg per tablet Indications: Bilateral nephrolithiasis , Right flank pain Take 1 tablet by mouth every 8 hours as needed for pain for up to 3 days. 6 tablet 06/25/2025 06/28/2025 Active [id number] 200 actuat albuterol 0.09 mg/actuat metered dose [...] 7 days. Take 1 capsule by mo [facility] [place] two times a day for 10 days. [...] on above: Take 1 capsule by mo ut once daily. Take 1 tablet by liza th once daily. levothyroxine sodium 0.2 mg oral tablet (20 [...] 2 times daily. 0 09/16/2020 Active End: 12-02-2021 take 1 tablet by mouth once daily [...] 11/02/2024 Active melatonin 10 mg oral tablet (9 sources) Melatonin 10 MG tablet Take by mouth daily as needed. Active 24 hr metFORMIN hydrochloride 500 mg extended release oral tablet (3 sources) Biguanide Start: 07-18-2025 take 1 tablet by mouth once daily metFORMIN ER (GLUCOPHAGE XR) 500 mg 24 hr tablet Take 1 tablet by mouth once daily. 90 tablet 1 07/18/2025 Active methylPREDNISolone (3 sources) Corticosteroid Start: 10-18-2024 End: 10-24-2024 methylPREDNISolone (MEDROL, RATNA,) 4 mg Dose-Pack Indications: Headache, unspecified headache type Follow dosing instructions, take with food. 21 tablet 10/18/2024 10/24/2024 Active naloxone hydrochloride 40 mg/ml nasal spray (3 sources) Opioid Antagonist Start: 06-05-2022 End: 06-05-2022 naloxone 4 MG/0.1ML 1 spray by Nasal route once for 1 dose. [place] into the nose as directed. Call 911. [...] 7 days. 14 capsule 09/29/2024 10/06/2024 Active Gahqd-6-MHK-EPA-Fish Oil (FISH OIL) 1,000 (120-180) mg cap (18 sources) Start: 11-02-2024 take 2 capsules by mouth twice daily Wgzfu-2-NXP-EPA-Fish Oil (FISH OIL) 1,000 (120-180) mg cap Indications: Migraine without aura and without status migrainosus, not intractable Take 2 capsules by mouth two times a day. 120 capsule 2 11/02/2024 Active ondansetron 4 mg disintegrating oral tablet (14 sources) Serotonin-3 Receptor Antagonist Start: 06-16-2025 take [...] 1 tablet by liza th once daily for 4 days. Take daily with food. promethazine hydrochloride 12.5 mg oral tablet (4 sources) Phenothiazine Start: 06-14-20 take 1 tablet by mouth three times daily as needed for nausea and vomiting Promethazine HCl 12.5 MG tablet TAKE 1 TABLET BY MOUTH THREE TIMES DAILY NEEDED FOR NAUSEA AND VOMITING 06/14/2025 Active Start: 04-18-2025 Promethazine 2 5 MG Suppository suppository INSERT 1 SUPPOSITORY RECTALLY EVERY 6 HOURS NEEDED FOR NAUSEA AND VOMITING 04/18/2025 Active propranolol hydrochloride 40 mg oral tablet (20 sources) beta-Adrenergic Max Start: 06-28-2025 take 1 tablet by mouth twice daily propranolol (INDERAL) 40 mg tablet Take 1 tablet by mouth two times a day. 60 tablet 5 06/28/2025 Active Start: 10-26-2024 take 1 tablet by liza th once daily propranolol (INDERAL) 20 mg tablet [...] bedtime. [facility] 04/25/[facility]24 Active rizatriptan 10 mg oral tablet (20 sources) Serotonin-1b and Serotonin-1d Receptor Agonist Start: End: rizatriptan 10 MG tablet Take 1 tablet by mouth as needed. 11/04/2019 Active Comment on above: Take 1 tablet by liza th as needed. May repeat in 2 hours if needed scopolamine - REMOVE PATCH (8 sources) scopolamine - RE MOVE PATCH every 72 hours. Active sennosides, long-term 8.6 mg oral capsule (5 sources) Start: take 1 capsule by mouth [...] tablet (20 sources) Opioid Agonist Start: End: take 1-2 tablets by mouth once daily as needed for pain traMADol (ULTRAM) 50 mg tablet Indications: SI (sacroiliac) joint dysfunction Take 1-2 pills by mouth once a day for pain, prn 45 tablet 2 07/17/2025 08/09/2025 Active Start: 03-08-2025 End: 04-01-2025 traMADol (ULTRAM) 50 [...] 03/08/2025 03/02/2025 Discontinued (Discontinued by Patient) Start: 08-26-2020 End: 07-05-2025 take 1-2 tablets by mouth once daily as needed for pain traMADol (ULTRAM) 50 mg tablet Indications: SI (sacroiliac) joint dysfunction Take 1-2 pills by mouth once a day for pain, prn 45 tablet 06/12/2025 06/25/2025 Discontinued take 1 tablet by liza th every twelve hours as needed traMADol (ULTRAM) 50 mg tablet Take 50 mg by mouth two times a day as needed for pain. Patient filled 06/12/2025 PDMP Active End: 09-18-2024 take 1 tablet by [...] oral solution (9 sources) alpha-Adrenergic Agonist, Uncompetitive N-vjthje-Q-aspartat e Receptor Antagonist, Sigma-1 Agonist Start: 01-07-2024 [...] 1 tablet by liza th twice daily as needed. Take by mouth [...] Ibuprofen (16 sources) Nonsteroidal Anti-inflammatory Drug End: 024 ibuprofen (MOTRIN ORAL) Take by mouth. 0 [...] in the CT contrast administration guidelines link. ketorolac tromethamine 10 mg oral tablet (20 sources) Nonsteroidal Anti-inflammatory Drug, Cyclooxygenase Inhibitor Start: [...] therapy for ketorolac (Toradol). Start: 06-07-2025 End: 07-18-2025 take 1 tablet by mouth every six hours as needed keTORolac (TORADOL) 10 mg tablet Indications: Right flank pain Take 1 tablet by mouth every 6 hours as needed. 20 tablet 06/15/2025 1:03 PM EDT 06/15/2025 07/18/2025 Discontinued (Course of therapy completed) Start: 10-26-2024 End: 10-26-2024 keTORolac 30 mg [...] the duration of therapy for ketorolac (Toradol) omeprazole 20 mg delayed release oral capsule (20 sources) Proton Pump Inhibitor Start: 10-28-2021 End: 02-12-2023 take 2 capsules by mouth once daily omeprazole (PRILOSEC) 20 mg capsule Indications: Nausea and vomiting, intractability of vomiting not specified, unspecified vomiting type , LUQ pain Take 2 capsules by mouth once daily. 60 capsule 2 10/28/2021 02/12/2023 Discontinued Comment on above: Take 2 capsules by m outh once daily. oxyCODONE hydrochloride 5 mg oral tablet (3 sources) Opioid Agonist Start: 06-05-2022 End: 05-01-2024 take 1 tablet by mouth every four hours as needed oxyCODONE 5 MG tablet Indications: Papillary thyroid carcinoma , Sialadenitis Take 1 tablet by mouth every 4 hours as needed for up to 7 days. 8 tablet 06/05/2022 05/01/2024 Discontinued (Therapy completed) polyethylene glycol 3350 [id number] mg / potassium chloride 2970 mg / sodium bicarbonate 6740 mg / sodium chloride 5860 mg / sodium sulfate 55237 mg powder for oral solution (7 sources) Osmotic Laxative Start: 10-28-2021 peg 3350-Electrolytes (GOLYTELY) 236-22.74-6.74 -5.86 gram suspension Refer to printed prep instructions from your provider. 4000 mL 0 10/28/2021 Active Comment on above: Refer to printed pre p instructions from your provider. prochlorperazine 5 mg oral tablet (20 sources) Phenothiazine Start: 11-04-2019 End: 02-12-2023 take 1 tablet by mouth every eight hours as needed prochlorperazine (COMPAZINE) 5 mg tablet Take 1 tablet by mouth every 8 hours as needed. 30 tablet 2 11/04/2019 02/12/2023 Discontinued Comment on above: Take 1 tablet by [facility] 8 hours as needed. riboflavin 400 mg oral tablet (20 sources) Start: 11-02-2024 End: 06-25-2025 take 1 tablet by mouth once daily riboflavin, vitamin B2, 400 mg tab Indications: Migraine without aura and without status migrainosus, not intractable Take 1 tablet by mouth once daily. 90 tablet 11/02/2024 06/25/2025 Discontinued (Course of therapy completed) 10 ml sodium chloride 9 mg/ml injection (1 source) Start: 04-17-2022 End: 04-17-2022 sodium chloride (PF) 0.9 % injection 1-100 mL sucralfate 100 mg/ml oral suspension (5 sources) Aluminum Complex Start: 12-23-2021 End: 09-16-2022 take 10 mL by mouth four times daily 1 hour(s) before bedtime sucralfate 1 GM/10ML oral suspension TAKE 10 ML BY MOUTH FOUR TIMES A DAY 1 HOUR BEFORE MEALS AND AT BEDTIME ON EMPTY STOMACH 0 12/23/2021 09/16/2022 Discontinued (Therapy completed) tamsulosin hydrochloride 0.4 mg oral capsule (6 sources) alpha-Adrenergic Max Start: 06-29-2025 End: 07-18-2025 take 1 capsule by mouth once daily in the evening tamsulosin (FLOMAX) 0.4 mg Take 1 capsule by mouth once daily for 7 days. 7 capsule 06/29/2025 5:11 PM EDT 06/29/2025 07/18/2025 Discontinued (Course of therapy completed) traZODone hydrochloride 150 mg oral tablet (20 sources) Serotonin Reuptake Inhibitor End: 05-01-2024 take 2 tablets by mouth once daily at bedtime traZODone (DESYREL) 150 mg tablet Take 300 mg by mouth daily at bedtime. 02/12/2023 Discontinued Comment on above: Take 300 mg by mouth daily at bedtime. 24 hr divalproex sodium 500 mg extended release oral tablet (20 sources) Mood Stabilizer, Anti-epileptic Agent Start: 11-04-2019 End: 02-12-2023 take 3 tablets by mouth once daily at bedtime divalproex ER (DEPAKOTE ER) 500 mg 24 hr tablet Take 3 tablets by mouth daily [facility]time[facility] 02/12/2023 Discontinued Start: 11-04-2019 End: 05-01-2024 divalproex 500 MG tablet ER Take 1,500 mg by mouth. 11/04/2019 05/01/2024 Discontinued (Therapy completed) Comment on above: Take 3 tablets by mo uth daily at bedtime. [facility] zip[facility]idone 40 mg oral capsule (18 sources) [...] Chronic Chronic obstructive pulmonary disease and bronchiectasis (2 sources) Bronchitis; Translations: [Bronchitis, not specified as acute or chronic] Onset: 08-13-2025 10-04-2023 Episodic Complications of surgical procedures or medical care (20 sources) Postoperative hypothyroidism; Translations: [Postprocedural hypothyroidism] Onset: 08-25-2019 06-06-2021 Chronic Complications of surgical procedures or medical care (3 sources) Complication of procedure; Translations: [Complication of surgical and medical care, unspecified, subsequent encounter] Episodic Contraceptive and procreative management (3 sources) Encounter for sterilization; Translations: [ENCOUNTER FOR STERILIZATION] Onset: 10-23-2022 Episodic Diabetes mellitus without complication (7 sources) Hyperglycemia; Translations: [Hyperglycemia, unspecified] Onset: 07-17-2025 07-12-2025 Episodic Diseases of mouth; excluding dental (6 sources) Sialoadenitis of the submandibular gland; Translations: [Sialoadenitis, unspecified] Episodic Essential hypertension (20 sources) Essential hypertension; Translations: [Essential (primary) hypertension] Onset: 07-06-2022 Chronic Gastrointestinal hemorrhage (1 source) Blood-tinged feces; Translations: [Melena] Episodic Genitourinary symptoms and ill-defined conditions (8 sources) Dysuria; Translations: [Dysuria] Onset: 05-08-2025 09-29-2024 [...] [Bipolar disorder, unspecified] Onset: 02-14-2018 03-22-2018 Chronic Neoplasms of unspecified nature or uncertain behavior [...] without diagnosis of hypertension] 05-08-2025 Episodic Other connective tissue disease (2 [...] diarrhea; Translations: [Irritable bowel syndrome, unspecified] Onset: 08-13-2025 Chronic Other gastrointestinal disorders (1 source) Abdominal bloating; Translations: [Abdominal distension (gaseous)] Episodic Other injuries and conditions due to external causes (1 source) Injury of left ankle; Translations: [Unspecified injury of left ankle, initial encounter] 07-17-2021 Episodic Other lower respiratory disease (1 source) Lower respiratory tract infection; Translations: [Unspecified acute lower respiratory infection] 10-04-2023 Episodic Other lower respiratory disease (6 sources) Dyspnea; Translations: [Shortness of breath] 04-25-2024 Episodic Other nervous system disorders (2 sources) [...] weight gain] Episodic Other upper respiratory infections (3 sources) Bacterial sinusitis; Translations: [Chronic sinusitis, unspecified] Onset: 08-13-2025 Chronic Other upper respiratory infections (3 sources) Sore throat symptom; Translations: [Acute pharyngitis, unspecified] 10-04-2023 Episodic Ovarian cyst (2 sources) Unspecified ovarian cyst, right side; Translations: [Follicular cyst of left ovary] Onset: 09-14-2022 Episodic Residual codes; unclassified (1 source) Past history of procedure; Translations: [Other specified postprocedural states] 06-15-2025 Episodic Spondylosis; intervertebral disc disorders; other back problems (20 sources) Degeneration of lumbar intervertebral disc; Translations: [Other intervertebral disc degeneration, lumbar region] Onset: 07-27-2012 03-22-2014 Chronic Spondylosis; intervertebral disc disorders; other back problems (20 sources) Low back pain; Translations: [Lumbago] Onset: 06-19-2008 Resolved: 04-25-2024 11-17-2021 Episodic Unclassified (2 sources) COUGH, UNSPECIFIED; Translations: [COUGH, UNSPECIFIED] Onset: 11-19-2021 Unclassified (6 sources) Autogenerated Problem Onset: 07-17-2025 07-17-2025 Unclassified (1 source) Subacute cough; Translations: [Subacute cough] Onset: 08-13-2025 Unclassified (1 source) Degeneration of intervertebral disc of lumbar region with discogenic back pain; Translations: [Degeneration of intervertebral disc of lumbar region with discogenic back pain] Onset: 03-22-2014 Unclassified (1 source) Degeneration of intervertebral disc of lumbar region with discogenic back pain and lower extremity pain; Translations: [Degeneration of intervertebral disc of lumbar region with discogenic back pain and lower extremity pain] Onset: 03-22-2014 Unclassified (1 source) Cyclical vomiting syndrome unrelated to migraine; Translations: [Vomiting, persistent, in adult] Onset: 03-03-2023 Unclassified (1 source) Bilateral flank pain; Translations: [Bilateral flank pain] Onset: 09-26-2025 Viral infection (1 source) COVID-19; Translations: [COVID-19] Onset: 11-19-2021 Past or Other Problems Problem Classification Problem Date Documented Da te Episodic/Chronic Acquired foot deformities (20 sources) Acquired deformity of toe; Translations: [Other deformities of toe(s) (acquired), unspecified foot] Onset: 9 Resolved: 9 07-27-2019 Episodic Calculus of urinary tract (20 sources) Kidney stone; Translations: [Calculus of kidney] Onset: 1 03-25-2022 Episodic Coma; stupor; and brain damage (20 sources) Daytime somnolence; Translations: [Somnolence] Onset: 5 05-09-2015 Episodic Esophageal disorders (20 sources) Gastroesophageal reflux disease; Translations: [Gastro-esophageal reflux disease without esophagitis] Onset: 5 Resolved: 9 07-27-2019 Chronic Joint disorders and dislocations; trauma-related (20 sources) Joint derangement; Translations: [Other internal derangements of unspecified knee] Onset: 8 Resolved: 4 03-22-2014 Chronic Mood disorders (8 sources) Mood disorders Onset: 2 Resolved: 5 03-18-2022 Nausea and vomiting (13 sources) Nausea and vomiting; Translations: [Nausea with vomiting, unspecified] Onset: 5 Episodic Other and unspecified benign neoplasm (20 sources) Dermatofibroma; Translations: [Other benign neoplasm of skin, unspecified] Onset: 4 06-20-2024 Episodic Other circulatory disease (1 source) Elevated blood-pressure reading, without diagnosis of hypertension; Translations: [Elevated blood pressure reading without diagnosis of hypertension] Onset: 5 Episodic Other connective tissue disease (20 sources) Fibromyalgia; Translations: [Fibromyalgia] Onset: 4 Resolved: 9 07-27-2019 Episodic Other disorders of stomach and duodenum (20 sources) Persistent vomiting; Translations: [Cyclical vomiting syndrome unrelated to migraine] Onset: 3 Episodic Other disorders of stomach and duodenum (20 sources) Gastroparesis syndrome; Translations: [Gastroparesis] Onset: 4 03-25-2024 Episodic Other disorders of stomach and duodenum (2 sources) Gastroparesis; Translations: [Gastroparesis] Onset: 4 Episodic Other gastrointestinal disorders (1 source) Diarrhea, unspecified; Translations: [Diarrhea, unspecified] Onset: 5 Episodic Other lower respiratory disease (7 sources) Cough; Translations: [Cough, unspecified] Onset: 1 03-25-2022 Episodic Other lower respiratory disease (1 source) Shortness of breath; Translations: [SOB (shortness of breath)] Onset: 5 Episodic Other nervous system disorders (20 sources) Disturbance of attention; Translations: [Attention and concentration deficit] Onset: 5 Resolved: 9 07-27-2019 Chronic Other screening for suspected conditions (not mental disorders or infectious disease) (20 sources) Patient encounter status; Translations: [Encounter for screening for lipoid disorders] Onset: 4 Resolved: 9 Episodic Pleurisy; pneumothorax; pulmonary collapse (3 sources) Bilateral pleural effusion; Translations: [Pleural effusion, not elsewhere classified] Onset: 5 05-01-2025 Episodic Residual codes; unclassified (1 source) Procedure and treatment not carried out due to patient leaving prior to being seen by health care provider; Translations: [Patient left before evaluation by physician] Onset: 5 Episodic Residual codes; unclassified (1 source) Other specified postprocedural states; Translations: [History of ureteroscopy] Onset: 5 Episodic Thyroid disorders (20 sources) Multinodular goiter; Translations: [Nontoxic multinodular goiter] Onset: 4 Resolved: 4 11-17-2021 Chronic Unclassified (1 source) COUGH, UNSPECIFIED; Translations: [COUGH, UNSPECIFIED] Onset: 1 Viral infection (9 sources) Disease caused by 2019-nCoV; Translations: [COVID-19] Onset: 1 03-25-2022 Episodic Results Test Name Value Interpretation Reference Range Facility [facility] 09-27-2025 CNOV Office Visit (VENKATAWS ) GRETA ANDRES ([id number]) 1990 F Date Time Provider Department 09/27/25 7:40 AM CHRISTINE DEAN During your visit today, we recorded the following information about you: Temperature Pulse Respiration Blood pressure 97.5 degrees 86/minute 18/minute 134/94 Weight 92.1 kg Christine Dean PA-C 09/27/2025 8:58 AM Signed Chief Complaint Patient presents with: elevated blood pressure at office visit HPI Greta Andres is a 35 year old female who presents here today for Above Complaints.. Hypertension: - History of HTN, currently managed with propranolol 40 mg BID and hydrochlorothiazide 25 mg daily. - Recent BP readings have been elevated, with home measurements averaging 140/105-110 mmHg. - Recent pre-op BP reading was 140/114 mmHg. - Previous BP readings were typically 112-120/70 mmHg prior to the last few months. - Believes elevated BP is due to pain from kidney stones. - No plans for ; has had a bilateral salpingectomy. Migraines: - Propranolol was initially prescribed for migraine prophylaxis. Nephrolithiasis: - Scheduled for 1-2 more surgeries for kidney stones; has had one previous kidney surgery. - Next surgery is tentatively scheduled for October. Weight Gain: - Noted weight gain since starting metformin in June; current weight is 203 lbs, up from 198 lbs. - Reports decreased appetite but continued weight gain. - Inquires about the use of GLP-1 patches for weight management. - Does not engage in regular exercise due to back issues. Last 6 Encounter Wt Readings: Date: Wt: 09/27/2025 92.1 kg (203 lb) 08/13/2025 90.1 kg (198 lb 10.2 oz) 07/18/2025 90.2 kg (198 lb 12.8 oz) 06/28/2025 89 kg (196 lb 3.2 oz) 06/22/2025 88.4 kg (194 lb 14.2 oz) 06/16/2025 89.9 kg (198 lb 3.1 oz) Last 7 Encounter BP Readings: Date: BP: 09/27/2025 134/94[average with bp machine[ 09/26/2025 167/114 09/11/2025 153/107 08/13/2025 124/86 07/18/2025 114/72 07/17/2025 152/99 06/29/2025 112/76 Past medical history, appointments, medications, allergies reviewed. 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 No surgical correction done. The father of the baby's brother born with a hole in his heart. Surgical correction was done. 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[facility]) Degenerative disc disease Disorders of sacrum 02/20/2013 Dysmenorrhea 04/11/2007 Exercise-induced asthma ([facility]) 03/22/2014 Fetus conceived on control 03/31/2012 [...] spinal stenosis 04/25/2024 Lupus (systemic lupus erythematosus) ([facility]) Migraine without aura and without status [...] dilatation 3 times in 1999 due to (more content not included)... Normal [facility] CNPNon 09-27-2025 CNPN Telephone (UROUPD) GRETA ANDRES ([id number]) 1990 F Date Time Provider Department 09/27/25 GRETA TEMPLETON UROUPD During your visit today, we recorded the following information about you: Penelope Bazan 09/27/2025 3:09 PM Signed Faxed medical clearance to PCP Jermaine King Pt had pre-op appt today and was put on blood pressure medication Fx: [phone] LOREN Spicer Rilee, MA 09/27/2025 4:32 PM Signed Received in office and routed to Christine to review when she returns 09/28/25. KAUSHAL Armendariz Rayanne, PA-C 09/28/2025 7:31 AM Signed Patient did not have preop. She was only scheduled for a BP check given her high BP readings. She will need a preop visit for me to clear her. I had her scheduled a repeat BP visit 10/12. If we can change it to preop, then I can address this. CARLYN Maher Sherill A, LPN 09/28/2025 8:43 AM Signed Appointment was changed to pre-op appointment. Was able to expand appointment time. Ada Carson LPN Allergies As of Date: 09/27/2025 Noted Allergy Reaction ADHESIVE 02/12/2010 2 - Rash MORPHINE SULFATE 11/12/2008 9 - Itching Comments: had vicodin at same time, but has taken vicodin in past without reaction ADDERALL (DEXTROAMPHETAMINE-AMPHE* 5 - Intolerance Comments: Heart racing, chest pain, diaphoretic, dizzy Date Reviewed: 09/27/2025 Reviewed by: Ada Carson LPN - Fully Assessed Prescriptions as of 09/28/2025 - losartan (COZAAR) 50 mg tablet Take 1 tablet by mouth once daily. - metFORMIN ER (GLUCOPHAGE XR) 500 mg 24 hr tablet Take 1 tablet by mouth once daily. - propranolol (INDERAL) 40 mg tablet Take 1 tablet by mouth two times a day. - scopolamine - REMOVE PATCH every 72 hours. - traMADol (ULTRAM) 50 mg tablet Take 50 mg by mouth two times a day as needed for pain. Patient filled 06/12/2025 PDMP - ondansetron orally disintegrating (ZOFRAN ODT) 4 mg disintegrating tablet Take 1 tablet by mouth every 8 hours as needed for nausea/vomiting. - SUMAtriptan (IMITREX) 50 mg tablet Take [...] time only. Problem List As Of Date 09/27/2025 Noted Resolved Irregular menstrual cycle [N92.6] 04/11/2007 Backache, unspecified [M54.9] 06/19/2008 07/27/2019 Other joint derangement, not elsewhere classifi*08/20/2008 04/25/2024 Other acquired deformity of toe [M20.5X9] 05/20/2009 07/27/2019 Lactose intolerance [E73.9] 03/31/2012 Anxiety, generalized [F41.1] 03/31/2012 Congenital heart defect (HCC) [Q24.9] 03/31/2012 Lumbago [M54.50] 07/27/2012 Lumbar degenerative disc disease [M51.369] 07/27/2012 Back pain [M54.9] 08/07/2013 04/25/2024 Exercise-induced asthma (HCC) [J45.990] 03/22/2014 Vitamin D deficiency [E55.9] 03/22/2014 [...] [E89.0] 08/25/2019 Hypertension, essential [I10] 07/06/2022 Vomiting, persiste (more content not included)... Normal [facility] Bacteria Ur Culton Bacteria identified Cx Nom (U) ORGANISM ID: 1 10,000 -<50,000 CFU/ml Normal urogenital lydia Normal [facility] Comment on above: Performed By: #### 6 30-4 #### [facility] CLIA [id number] [address] [place] [address] Urinalysis complete panel (U )on 09-26-2025 Bacteria LM.HPF (Urine sed) [#/Area] Rare Abnormal None Seen [facility] Comment on above: Order Comment: Speci men Type: URINE SPECIMENOrdering Facility: [facility] Address: [address] [place] [address] Performed By: #### 2 4356-8 ####[facility] [id number] [place] [address] [place] Bilirubin Ql (U) Negative Normal Negative [facility] Comment on above: Order Comment: Speci men Type: URINE SPECIMENOrdering Facility: [facility] Address: [address] [place] [address] Performed By: #### 2 4356-8 ####[facility] [id number] [address] [place] [facility] Clarity (Unsp spec) Clear Normal Clear [facility] Comment on above: Order Comment: Speci men Type: URINE SPECIMENOrdering Facility: [facility] Address: [address] [place] [address] Performed By: #### 2 4356-8 ####[facility] [id number] [address] [place] Color (U) Yellow Normal Yellow [facility] Comment on above: Order Comment: Speci men Type: URINE SPECIMENOrdering Facility: [facility] Address: [address] [place] [address] Performed By: #### 2 4356-8 ####[facility] [id number] [address] Epithelial cells LM.HPF (Urine sed) [#/Area] Moderate Normal [facility] Comment on above: Order Comment: Speci men Type: URINE SPECIMENOrdering Facility: [facility] Address: [address] [place] [address] Performed By: #### 2 4356-8 ####[facility] [id number] [address] Glucose Test strip (U) [Mass/Vol] Negative Normal Negative [facility] Comment on above: Order Comment: Speci men Type: URINE SPECIMENOrdering Facility: [facility] Address: [address] [place] [address] Performed By: #### 2 4356-8 ####[facility] [id number] [address] [place] [facility] Hemoglobin Ql (U) Negative Normal Negative [facility] Comment on above: Order Comment: Speci men Type: URINE SPECIMENOrdering Facility: [facility] Address: [address] [place] [address] Performed By: #### 2 4356-8 ####[facility]IA [id number] [address] [place] [facility] Ketones Ql (U) Negative Normal Negative [facility] Comment on above: Order Comment: Speci men Type: URINE SPECIMENOrdering Facility: [facility] Address: [address] [place] [address] Performed By: #### 2 4356-8 ####[facility] [id number] [address] Leukocyte esterase Test strip Ql (U) Trace Abnormal Negative [facility] Comment on above: Order Comment: Speci men Type: URINE SPECIMENOrdering Facility: [facility] Address: [address] [place] [address] Performed By: #### 2 4356-8 ####[facility] [id number] [place] [address] [place] Nitrite Ql (U) Negative Normal Negative [facility] Comment on above: Order Comment: Speci men Type: URINE SPECIMENOrdering Facility: [facility] Address: [address] [place] [address] Performed By: #### 2 4356-8 ####[facility] LABIA [id number] [place] [address] [place] pH (U) 6.5 [pH] Normal 5.0-8.0 [facility] Comment on above: Order Comment: Speci men Type: URINE SPECIMENOrdering Facility: [facility] Address: [address] [place] [address] Performed By: #### 2 4356-8 ####[facility] [id number] [place] [address] [place] Protein (U) [Mass/Vol] Negative Normal Negative [facility] Comment on above: Order Comment: Speci men Type: URINE SPECIMENOrdering Facility: [facility] Address: [address] [place] [address] Performed By: #### 2 4356-8 ####[facility] [id number] [place] [address] [place] RBC LM.HPF (Urine sed) [#/Area] 0-3 /HPF Normal 0-3 /HPF [facility] Comment on above: Order Comment: Speci men Type: URINE SPECIMENOrdering Facility: [facility] Address: [address] [place] [address] Performed By: #### 2 4356-8 ####[facility] LABIA [id number] [place] [address] [place] Specific gravity (U) [Rel density] 1.015 Normal 1.005-1.030 [facility] Comment on above: Order Comment: Speci men Type: URINE SPECIMENOrdering Facility: [facility] Address: [address] [place] [address] Performed By: #### 2 4356-8 ####[facility] LABIA [id number] [place] [address] [place] Urobilinogen Ql (U) 0.2 EU/dL Normal 0.2-1.0 EU/dL [facility] Comment on above: Order Comment: Speci men Type: URINE SPECIMENOrdering Facility: [facility] Address: [address] [place] [address] Performed By: #### 2 4356-8 ####[facility] [id number] [address] WBC LM.HPF (Urine sed) [#/Area] 0-5 /HPF Normal 0-5 /HPF [facility] Comment on above: Order Comment: Speci men Type: URINE SPECIMENOrdering Facility: [facility] Address: [address] [place] [address] Performed By: #### 2 4356-8 ####[facility] [id number] [address] [facility] GRETA ANDRES ([id number]) 1990 F Date Time Provider Department 09/17/25 GRETA TEMPLETON UROUPD During your visit today, we recorded the following information about you: Greta Templeton DO 09/17/2025 8:09 AM Signed Please schedule follow up soonest available appt preop kidney stone removal DO Corin Walker Jane 09/17/2025 11:31 AM Signed Pt scheduled for Wed09/21/25 Allergies As of Date: 09/17/2025 Noted Allergy Reaction ADHESIVE 02/12/2010 2 - Rash MORPHINE SULFATE 11/12/2008 9 - Itching Comments: had vicodin at same time, but has taken vicodin in past without reaction ADDERALL (DEXTROAMPHETAMINE-AMPHE* 5 - Intolerance Comments: Heart racing, chest pain, diaphoretic, dizzy Date Reviewed: 09/11/2025 Reviewed by: Caro Dominguez - Fully Assessed Prescriptions as of 09/17/2025 - metFORMIN ER (GLUCOPHAGE XR) 500 mg 24 hr tablet Take 1 tablet by mouth once daily. - propranolol (INDERAL) 40 mg tablet Take 1 tablet by mouth two times a day. - scopolamine - REMOVE PATCH every 72 hours. - traMADol (ULTRAM) 50 mg tablet Take 50 mg by mouth two times a day as needed for pain. Patient filled 06/12/2025 PDMP - ondansetron orally disintegrating (ZOFRAN ODT) 4 mg disintegrating tablet Take 1 tablet by mouth every 8 hours as needed for nausea/vomiting. - SUMAtriptan (IMITREX) 50 mg tablet Take [...] time only. Problem List As Of Date 09/17/2025 Noted Resolved Irregular menstrual cycle [N92.6] 04/11/2007 Backache, unspecified [M54.9] 06/19/2008 07/27/2019 Other joint derangement, not elsewhere classifi*08/20/2008 04/25/2024 Other acquired deformity of toe [M20.5X9] 05/20/2009 07/27/2019 Lactose intolerance [E73.9] 03/31/2012 Anxiety, generalized [F41.1] 03/31/2012 Congenital heart defect (HCC) [Q24.9] 03/31/2012 Lumbago [M54.50] 07/27/2012 Lumbar degenerative disc disease [M51.369] 07/27/2012 Back pain [M54.9] 08/07/2013 04/25/2024 Exercise-induced asthma (HCC) [J45.990] 03/22/2014 Vitamin D deficiency [E55.9] 03/22/2014 [...] for gynecological examination [Z01.41*04/25/2024 Dermatofibroma [D23.9] 06/20/2024 Elevated hemoglobin A1c [R73.09] 07/18/2025 Encounter Status:Closed by GRETA TEMPLETON on 09/17/25 [facility] 09-11-2025 [facility] Office Visit (URUN) GRETA ANDRES ([id number]) 1990 F Date Time Provider Department 09/11/25 3:00 PM GRETA TEMPLETON During your visit today, we recorded the following information about you: Pulse Blood pressure 76/minute 153/107 Greta Templeton DO 09/11/2025 10:58 PM Signed [facility] [place] ESTABLISHED PATIENT NOTE/HISTORY AND PHYSICAL PATIENT: Greta Andres (35 year old) PCP: Nagi Red MD DATE OF SERVICE: 09/11/2025 SUBJECTIVE: CHIEF COMPLAINT: Follow Up (Patient states that her left side is having more frequent pain. No urinary symptoms. She will have occasional hematuria also. ) HISTORY OF PRESENT ILLNESS: Recording using [email or web address] software for draft documentation of the visit was discussed with the patient/authorized claim representative; all questions welcomed and answered. Patient/authorized claim representative agreed to proceed The patient was last seen by Greta Templeton DO on 06/29/25 . Prior notes were reviewed. Patient returns today for follow up . In interim, pulled stent on POD 2 2/2 UUI and then had R ureteral colic -> ER OSH and CT Mod R HUN per read. Now, R flank pain improved. She has intermittent L flank pain now, not sure if wants L side tx or not Review of Symptoms: Genitourinary: See HPI Constitutional: [...] generalized, Back pain (08/07/2013), Bipolar 1 disorder ([facility]) (02/14/2018), Bipolar 1 disorder ([facility]), Chronic fatigue disorder (03/19/2015), Congenital heart defect ([facility]) (03/31/2012), 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[facility]), Degenerative disc disease, Disorders of sacrum (02/20/2013), Dysmenorrhea (04/11/2007), Exercise-induced asthma ([facility]) (03/22/2014), Fetus conceived on control (03/31/2012), Fibromyalgia, Gastroparesis (03/25/2024), GERD (gastroesophageal reflux disease) (03/22/2014), HALLUX VALGUS (01/23/2009), Hypertension, essential (07/06/2022), Irregular menstrual cycle (04/11/2007), Lactose intolerance (03/31/2012), Lumbago (07/27/2012), Lumbar degenerative disc disease (07/27/2012), Lumbar spinal stenosis (04/25/2024), Lupus (systemic lupus erythematosus) ([facility]), Migraine without aura and without status migrainosus, not intractable (05/20/2017), Multiple thyroid nodules (07/26/2019), Neoplasm of uncertain behavior of skin of back, Obesity, Class I, BMI 30-34.9 (03/03/2023), Other and unspecified ovarian cyst, Other joint derangement, not elsewhere classified, lower leg (08/20/2008), Papillary thyroid carcinoma ([facility]) (07/21/2019), PMH - PAST MEDICAL HISTORY [...] arthroscopy knee diagnostic w/wo synovial bx spx (Right, 2003); correct bunion,simple (Right, 01/29/2009); lumbar or caudal epidural inj (2011); injection for nerve block (2010,2011); laparoscopy surg cholecystectomy (2012); fna with imaging (07/18/2014); esophagogastroduodenoscopy transoral diagnostic (02/21/2015); sinus surgery hx (2013); fna (07/18/2019); cystoscopy,remv ureteral stone (2016); colonoscopy (12/16/2021); salpingectomy (Bilateral, 10/23/2022); thyroidectomy (07/2019); ligate fallopian tube (2021); and past surgical history of (Right, 06/29/2025). Medications: -Patient has a current medication list which includes the following prescription(s): metformin er, propranolol, scopolamine - remove patch, tramadol, ondansetron orally disintegrating, sumatriptan, magnesium glycinate, hydrochlorothiazide, quetiapine, cariprazine, cholecalciferol (vitamin d3), cyclobenzaprine, albuterol hfa, levothyroxine, levothyroxine, and etonogestrel. Allergies: -Patient is allergic to adhesive, morphine sulfate, and adderall [dextroamphetamine-amphetami ne]. Family History: -Patient family history inc (more content not included)... [facility] GRETA ANDRES ([id number]) 1990 F Date Time Provider Department 09/11/25 GRETA TEMPLETON UROJOSEPH During your visit today, we recorded the following information about you: Greta Templeton DO 09/11/2025 3:24 PM Signed Pt completing medical records release form [facility] 05/22/25 - 09/11/25 today but I would like the CT images from ER 06/2025 if these images can be pushed over If not , please call patient to ask to shredder picker disc DO Anny Walker Sherri 09/12/2025 12:07 PM Addendum I faxed medical records release to [facility], and added to please push over the CT images from ER from 06/2025. I also called and spoke with Roselia from Medical Records department, and she states she is preparing this information for us to receive. Windy Bronson 09/13/2025 8:15 AM Addendum Records from [facility] are now scanned into [employer] and they state the CT images are pushed through. Windy Mccormick Allergies As of Date: 09/11/2025 Noted Allergy Reaction ADHESIVE 02/12/2010 2 - Rash MORPHINE SULFATE 11/12/2008 9 - Itching Comments: had vicodin at same time, but has taken vicodin in past without reaction ADDERALL (DEXTROAMPHETAMINE-AMPHE* 5 - Intolerance Comments: Heart racing, chest pain, diaphoretic, dizzy Date Reviewed: 09/11/2025 Reviewed by: Caro Dominguez - Fully Assessed Prescriptions as of 09/13/2025 - metFORMIN ER (GLUCOPHAGE XR) 500 mg 24 hr tablet Take 1 tablet by mouth once daily. - propranolol (INDERAL) 40 mg tablet Take 1 tablet by mouth two times a day. - scopolamine - REMOVE PATCH every 72 hours. - traMADol (ULTRAM) 50 mg tablet Take 50 mg by mouth two times a day as needed for pain. Patient filled 06/12/2025 PDMP - ondansetron orally disintegrating (ZOFRAN ODT) 4 mg disintegrating tablet Take 1 tablet by mouth every 8 hours as needed for nausea/vomiting. - SUMAtriptan (IMITREX) 50 mg tablet Take [...] time only. Problem List As Of Date 09/11/2025 Noted Resolved Irregular menstrual cycle [N92.6] 04/11/2007 Backache, unspecified [M54.9] 06/19/2008 07/27/2019 Other joint derangement, not elsewhere classifi*08/20/2008 04/25/2024 Other acquired deformity of toe [M20.5X9] 05/20/2009 07/27/2019 Lactose intolerance [E73.9] 03/31/2012 Anxiety, generalized [F41.1] 03/31/2012 Congenital heart defect (HCC) [Q24.9] 03/31/2012 Lumbago [M54.50] 07/27/2012 Lumbar degenerative disc disease [M51.369] 07/27/2012 Back pain [M54.9] 08/07/2013 04/25/2024 Exercise-induced asthma (HCC) [J45.990] 03/22/2014 Vitamin D deficiency [E55.9] 03/22/2014 [...] I, BMI 30-34.9 [E66.811] 03/03/2023 Encounter for scree (more content not included)... Normal [facility] HISTORY PHYSICALon HISTORY PHYSICAL HNO ID: [id number] Author: GRETA TEMPLETON DO Service: ? Author Type: Physician Type: H&P Filed: 09/11/2025 22:58 Note Text: [facility] [place] ESTABLISHED PATIENT NOTE/HISTORY AND PHYSICAL PATIENT: Greta Andres (35 year old) PCP: Nagi Red MD DATE OF SERVICE: 09/11/2025 SUBJECTIVE: CHIEF COMPLAINT: Follow Up (Patient states that her left side is having more frequent pain. No urinary symptoms. She will have occasional hematuria also. ) HISTORY OF PRESENT ILLNESS: Recording using [email or web address] software for draft documentation of the visit was discussed with the patient/authorized claim representative; all questions welcomed and answered. Patient/authorized claim representative agreed to proceed The patient was last seen by Greta Templeton DO on 06/29/25 . Prior notes were reviewed. Patient returns today for follow up . In interim, pulled stent on POD 2 2/2 UUI and then had R ureteral colic -> ER OSH and CT Mod R HUN per read. Now, R flank pain improved. She has intermittent L flank pain now, not sure if wants L side tx or not Review of Symptoms: Genitourinary: See HPI Constitutional: [...] 1 disorder (HCC) (02/14/2018), Bipolar 1 disorder ([facility]), Chronic fatigue disorder (03/19/2015), Congenital heart defect (HCC) (03/31/2012), 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[facility]), Degenerative disc disease, Disorders of sacrum (02/20/2013), Dysmenorrhea (04/11/2007), Exercise-induced asthma (HCC) (03/22/2014), Fetus conceived on control (03/31/2012), Fibromyalgia, Gastroparesis (03/25/2024), GERD (gastroesophageal reflux disease) (03/22/2014), HALLUX VALGUS (01/23/2009), Hypertension, essential (07/06/2022), Irregular menstrual cycle (04/11/2007), Lactose intolerance (03/31/2012), Lumbago (07/27/2012), Lumbar degenerative disc disease (07/27/2012), Lumbar spinal stenosis (04/25/2024), Lupus (systemic lupus erythematosus) ([facility]), Migraine without aura and without status [...] arthroscopy knee diagnostic w/wo synovial bx spx (Right, 2003); correct bunion,simple (Right, 01/29/2009); lumbar or caudal epidural inj (2011); injection for nerve block (2010,2011); laparoscopy surg cholecystectomy (2012); fna with imaging (07/18/2014); esophagogastroduodenoscopy transoral diagnostic (02/21/2015); sinus surgery hx (2013); fna (07/18/2019); cystoscopy,remv ureteral stone (2016); colonoscopy (12/16/2021); salpingectomy (Bilateral, 10/23/2022); thyroidectomy (07/2019); ligate fallopian tube (2021); and past surgical history of (Right, 06/29/2025). Medications: -Patient has a current medication list which includes the following prescription(s): metformin er, propranolol, scopolamine - remove patch, tramadol, ondansetron orally disintegrating, sumatriptan, magnesium glycinate, hydrochlorothiazide, quetiapine, cariprazine, cholecalciferol (vitamin d3), cyclobenzaprine, albuterol hfa, levothyroxine, levothyroxine, and etonogestrel. Allergies: -Patient is allergic to adhesive, morphine sulfate, and adderall [dextroamphetamine-amphetami ne]. Family History: -Patient family history includes Asthma in her mother; CROHNS in her mother; Cancer in her maternal uncle; Diabetes in her mother, paternal grandfather, and paternal grandmother; Heart in her sister; Hypertension in her father and mother; KIDNEY PROBLEMS in her moth (more content not included)... [facility] HISTORY PHYSICALon HISTORY PHYSICAL HNO ID: [id number] Author: JUAN DANIEL CONTRERAS MD Service: Pain Management Author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 Pate DO Can Solderer: Signed Normal [facility] Basic Metabolic Profile (BMP )on 07-01-2025 BUN/CRE 15.5 RATIO Normal 10-20 [facility] Comment on above: Performed By: #### L 100.0100, L500.2500 #### [facility] [address] [place], [address] Calcium [Mass/Vol] 9.3 mg/dL Normal 7.6-11.0 [facility] Comment on above: Performed By: #### L 100.0100, L500.2500 #### [facility] [address] [place], [address] Chloride [Moles/Vol] 105 mmol/L Normal 98-108 [facility] Comment on above: Performed By: #### L 100.0100, L500.2500 #### [facility] [address] [place], [address] CO2 [Moles/Vol] 22.1 mmol/L Normal 21.0-32.0 [facility] Comment on above: Performed By: #### L 100.0100, L500.2500 #### [facility] [address] [place], [address] Creatinine [Mass/Vol] 0.84 mg/dL Normal 0.70-1.20 [facility] Comment on above: Performed By: #### L 100.0100, L500.2500 #### [facility] [address] [place], [address] ECRCL 106.67 ml/min Normal 50-250 [facility] Comment on above: Performed By: #### L 100.0100, L500.2500 #### [facility] [address] [place], [address] GAP 13 Normal 5-15 [facility] Comment on above: Performed By: #### L 100.0100, L500.2500 #### [facility] [address] [place], [address] GFR/1.73 sq M.predicted among non-blacks MDRD (S/P/Bld) [Vol rate/Area] 94 mL/min/{1.73_m2} Normal >60 [facility] Comment on above: Result Comment: mL/m in/1.73m2 CKD-EPI Creatinine Equation (2020) Performed By: #### L 100.0100, L500.2500 #### [facility] [address] [place], [address] Glucose [Mass/Vol] 275 mg/dL High 70-99 [facility] Comment on above: Performed By: #### L 100.0100, L500.2500 #### [facility] [address] [place], [address] Potassium [Moles/Vol] 3.9 mmol/L Normal 3.3-5.1 [facility] Comment on above: Performed By: #### L 100.0100, L500.2500 #### [facility] [address] [place], [address] Sodium [Moles/Vol] 139 mmol/L Normal 133-145 [facility] Comment on above: Performed By: #### L 100.0100, L500.2500 #### [facility] [address] [place], [address] Urea nitrogen [Mass/Vol] 13 mg/dL Normal 4-19 [facility] Comment on above: Performed By: #### L 100.0100, L500.2500 #### [facility] [address] [place], [address] CBC W/Diff, Automatedon 08-1 0-5 Absolute Lymph 3.93 X10 3/uL Normal 0.83-4.51 [facility] Comment on above: Performed By: #### L 100.0100, L500.2500 #### [facility] [address] [place], [address] Absolute Neut 9.8 X10 3/uL High 2.0-7.7 [facility] Comment on above: Performed By: #### L 100.0100, L500.2500 #### [facility] [address] [place], [address] Basophils/100 WBC (Bld) 0.2 % Normal 0-1 [facility] Comment on above: Performed By: #### L 100.0100, L500.2500 #### [facility] [address] [place], [address] Eosinophils/100 WBC (Bld) 0.7 % Normal 0-5 [facility] Comment on above: Performed By: #### L 100.0100, L500.2500 #### [facility] [address] [place], [address] Erythrocyte distribution width (RBC) [Ratio] 13.5 % Normal 11.6-14.6 [facility] Comment on above: Performed By: #### L 100.0100, L500.2500 #### [facility] [address] [place], [address] Hematocrit (Bld) [Volume fraction] 37.4 % Normal 37-47 [facility] Comment on above: Performed By: #### L 100.0100, L500.2500 #### [facility] [address] [place], [address] Hemoglobin (Bld) [Mass/Vol] 13.2 g/dL Normal 12.0-15.0 [facility] Comment on above: Performed By: #### L 100.0100, L500.2500 #### [facility] [address] [place], [address] IG% 1.900 High 0.0-0.9 [facility] Comment on above: Result Comment: IG% - Immature Granulocytes (promyelocytes, myelocytes and metamyelocytes) > 1% indicates that a LEFT SHIFT is Present. Performed By: #### L 100.0100, L500.2500 #### [facility] [address] [place], [address] Lymphocytes/100 WBC (Bld) 26.3 % Normal 19-41 [facility] Comment on above: Performed By: #### L 100.0100, L500.2500 #### [facility] [address] [place], [address] MCH (RBC) [Entitic mass] 28.6 pg Normal 27.0-32.0 [facility] Comment on above: Performed By: #### L 100.0100, L500.2500 #### [facility] [address] [place], [address] MCHC (RBC) [Mass/Vol] 35.3 g/dL Normal 32-36 [facility] Comment on above: Performed By: #### L 100.0100, L500.2500 #### [facility] [address] [place], [address] MCV (RBC) [Entitic vol] 81.1 fL Normal 81-99 [facility] Comment on above: Performed By: #### L 100.0100, L500.2500 #### [facility] [address] [place], [address] Monocytes/100 WBC (Bld) 5.6 % Normal 0-10 [facility] Comment on above: Performed By: #### L 100.0100, L500.2500 #### [facility] [address] [place], [address] Neutrophils/100 WBC (Bld) 65.3 % Normal 47-70 [facility] Comment on above: Performed By: #### L 100.0100, L500.2500 #### [facility] [address] [place], [address] Nucleated RBC (Bld) [#/Vol] 0 10*3/uL Normal 0-5 [facility] Comment on above: Performed By: #### L 100.0100, L500.2500 #### [facility] [address] [place], [address] Platelet mean volume (Bld) [Entitic vol] 9.7 fL Normal 6.2-12.0 [facility] Comment on above: Performed By: #### L 100.0100, L500.2500 #### [facility] [address] [place], [address] Platelets (Bld) [#/Vol] 222 10*3/uL Normal 150-450 [facility] Comment on above: Performed By: #### L 100.0100, L500.2500 #### [facility] [address] [place], [address] RBC (Bld) [#/Vol] 4.61 10*6/uL Normal 4.2-5.4 [facility] Comment on above: Performed By: #### L 100.0100, L500.2500 #### [facility] [address] [place], [address] RDW SD 39.6 fl Normal 35.1-43.9 [facility] Comment on above: Performed By: #### L 100.0100, L500.2500 #### [facility] [address] [place], [address] WBC (Bld) [#/Vol] 15.0 10*3/uL High 4.4-11.0 [facility] Comment on above: Performed By: #### L 100.0100, L500.2500 #### [facility] [address] [place], [address] Emergency Department Summary on 07-01-2025 Emergency Department Summary [facility] Medical Records Department [address] [place] [address] Emergency Department Summary 07/01/25 MR#: [id number] Acct: [id number] Name: GRETA ANDRES Rep #: [id number] : 1990 35 From: Ron Pate DO PCP: Dr. Nagi Red MD Status:DEP ER Location: ED HPI History of Present Illness Chief Complaint: Flank Pain Informant: patient Narrative Narrative: Patient is a 35-year-old female with past medical history of hypertension and kidney stones. She states she follows with a urologist at the [facility]. She states that the other day she underwent laser lithotripsy and had a stent placed secondary to a 7 to 8 mm right-sided kidney stone. She states she is taking Homer at home. She reports that today despite taking her medication she was having increased pain. She states her urologist told her that they would prefer the stent stay in place until middle of the week but if it was causing irritation and needed to come out she was safe to pull on her own at home. Patient states that because of her increased/persistent pain today she did remove the stent. Despite doing that pain persisted and therefore she presents for evaluation [facility] Medical History Right carpal tunnel syndrome Kidney [...] 1 - 2 puff inhalation Q4H PRN ME N 11/06/19 Unknown History aerosol inhaler Sob /Or Wheezing rizatriptan 10 mg tablet (Maxalt) 10 mg PO PRN PRN MIGRAINES Unknown History tramadol 50 mg tablet 50 mg PO Q6H PRN Pain 04/05/23 History cyclobenzaprine 10 mg tablet 10 mg PO TID PRN Muscle Spasm #20 03/13/24 Unknown Rx TABLETS cariprazine 1.5 mg capsule 1.5 mg PO DAILY 05/13/24 03/18/25 History (Ambroselar) scopolamine base 1 mg over 3 days 1 patch transdermal Q3D PRN nasue a 01/19/25 Unknown Rx transdermal patch #24 ea hydrochlorothiazide 25 mg tablet 25 mg PO DAILY 03/19/25 03/18/25 H istory levothyroxine 200 mcg tablet 200 [...] tabs promethazine 25 mg rectal 25 mg ME Q6H PRN nausea and Unknown Rx suppository vomiting #12 ea oxycodone-acetaminophen 5 mg-325 1 tab PO Q6H PRN pain 5 days #20 0 07/01/25 Unknown Rx mg tablet (Percocet) tabs Allergy/AdvReac Type Severity Reaction Status Date / Time amphetamine (From Adderall) Allergy Severe unknown Verified 07/01/25 00:39 dextroamphetamine (From Allergy Severe unknown Verified 07/01/25 00:39 Adderall) adhesive tape Allergy Intermediate Rash Verified 07/01/25 00:39 morphine Allergy Rash Verified 07/01/25 00:39 Family History Mother Asthma Diabetes Hypertension Crohn's [...] Constitutional Constitutional ED: Denies chills or fever(s) ENT ENT ED: Denies sore throat Cardiovascular Cardiovascular: Denies chest pain Respiratory/Chest Respiratory/Chest: Denies cough or dyspnea Gastrointestinal Gastrointestinal: Reports abdominal pain and nausea; Denies diarrhea or vomiting Genitourinary Genitourinary ED: Reports hematuria; Denies dysuria Musculoskeletal Musculoskeletal: Reports back pain Integumentary Denies rash Neurologic Neurologic: Denies headache(s) Hematologic/Lymphatic Hematologic/Lymphatic: Denies easy bleeding (more content not included)... Normal [facility] Urinalysis, Completeon 07-01 EPI,SQUAMOUS 0-5 SEEN Normal 03-31 [facility] Comment on above: Order Comment: COLOR OF URINE MAY AFFECT DIPSTICK RESULTS. CLEAN CATCH Performed By: #### L 400.0001 #### [facility] [address] [place], [address] RBC > 100 SEEN Normal 0-5 [facility] Comment on above: Order Comment: COLOR OF URINE MAY AFFECT DIPSTICK RESULTS. CLEAN CATCH Performed By: #### L 400.0001 #### [facility] [address] [place], [address] BACTERIA 0 SEEN Normal None Seen [facility] Comment on above: Order Comment: COLOR OF URINE MAY AFFECT DIPSTICK RESULTS. CLEAN CATCH Performed By: #### L 400.0001 #### [facility] [address] [place], [address] Mucus Ql (Urine sed) 0 SEEN Normal [facility] Comment on above: Order Comment: COLOR OF URINE MAY AFFECT DIPSTICK RESULTS. CLEAN CATCH Performed By: #### L 400.0001 #### [facility] [address] [place], [address] WBC 0 SEEN Normal 0-5 [facility] Comment on above: Order Comment: COLOR OF URINE MAY AFFECT DIPSTICK RESULTS. CLEAN CATCH Performed By: #### L 400.0001 #### [facility] [address] [place], [address] ANES POSTPROC EVALon 025 ANES POSTPROC EVAL HNO ID: [id number] Author: BIMAL ALVAREZ DO Service: ? Author Type: Anesthesiologist Type: Anesthesia Postprocedure Evaluation Filed: 06/29/2025 16:23 Note Text: POST ANESTHESIA EVALUATION NOTE : 1990 Procedure Summary Date: 06/29/25 Room / Location: UN OR 06 / UN OR Anesthesia Start: 1401 Anesthesia Stop: 1520 Procedures: CYSTOSCOPY (Bladder) RETROGRADE PYELOGRAM (Bilateral: Kidney) LASER CYSTOURETHROSCOPY W/ URETEROSCOPY AND/OR PYELOSCOPY W/ LITHOTRIPSY HOLMIUM (Right: Kidney) INSERTION STENT DOUBLE J (Right: Kidney) Diagnosis: Bilateral nephrolithiasis Right flank pain (Bilateral nephrolithiasis [N20.0]) (Right flank pain [R10.9]) Surgeons: Greta Templeton DO Responsible Provider: Bimal Alvarez DO Anesthesia Type: general ASA Status: 2 Anesthesia Type: general Airway Type: LMA Last Vitals Vitals Value Taken Time BP 135/106 06/29/25 1623 Temp 36.7 ?C (98.1 ?F) 06/29/25 1530 Pulse 74 06/29/25 1623 Resp 16 06/29/25 1623 SpO2 96 % 06/29/25 1623 Post Anesthesia Patient Status Patient Evaluation: PACU. PACU/ICU Patient Condition: stable. Anticipated Disposition: phase 2 then home. Neurological Status: aware and responsive. Pulmonary Status: breathing comfortably on room air Airway Control: returned to baseline unsupported. Cardiovascular Status: stable. Pain Management: clinically adequate Postoperative Hydration: acceptable. Intraoperative Events: no significant anesthesia events Post Operative Nausea/Vomiting Status: no significant post operative nausea or vomiting Recommendation: continue current plan of care. Anesthesia Observations No Documentation SIGNATURE: Bimal Alvarez DO PATIENT NAME: Greta Andres DATE: June 29, 2025 TIME: 4:23 PM CSN: [id number] [facility] ANES PRE-OPon 06-29-2025 ANES PRE-OP HNO ID: [id number] Author: BIMAL ALVAREZ DO Service: ? Author Type: Anesthesiologist Type: Anesthesia Preprocedure Evaluation Filed: 06/29/2025 13:51 Note Text: ANESTHESIOLOGY DAY OF SURGERY NOTE : 1990 Procedure Information Date/Time: 06/29/25 1345 Procedures: CYSTOSCOPY (Bladder) RETROGRADE PYELOGRAM (Bilateral: Kidney) LASER CYSTOURETHROSCOPY W/ URETEROSCOPY AND/OR PYELOSCOPY W/ LITHOTRIPSY HOLMIUM (Right: Kidney) INSERTION STENT DOUBLE J (Right: Kidney) Location: UN OR 06 / UN OR Surgeons: Greta Templeton DO Estimated body mass index is 32.43 kg/m? as calculated from the following: Height as of this encounter: 165.1 cm (5' 5). Weight as of this encounter: 88.4 kg (194 lb 14.2 oz). Most recent hematocrit and potassium results: Hematocrit 37.8 06/16/2025 K 4.0 06/16/2025 Relevant Problems CARDIO (+) Hypertension, essential (+) Migraine without aura and without status migrainosus, not intractable ENDO (+) Post-surgical hypothyroidism -RENAL (+) Renal stones NEURO-PSYCH (+) Migraine without aura and without status migrainosus, not intractable I - PHYSICAL EVALUATION AIRWAY Patient intubated: No. Tracheostomy tube not present Mallampati: III. TM distance: >3 FB. Neck ROM: full ROM without neurological symptoms. Mouth opening: adequate. Short neck: no. Thick neck: no An present: no Microretrognathia/Micronagth ia/Recessed Chin: No DENTAL Normal dental observations. Dental findings: teeth intact. Additional exam findings: no II - ANESTHESIA PLAN ASA Score: 2 Anesthetic Plan: general Airway type: ETT The patient is not a current smoker. NPO Status: adequate Beta Max Monitoring Plan Monitoring plan: standard ASA. Post Procedure Analgesic Plan Postoperative analgesic plan: parenteral or oral opioids. Informed Consent Anesthetic risks, benefits, alternatives, personnel and consent discussed: yes. Patient / Responsible Libertarian agrees to proceed: yes Patient / Surrogate agrees to blood products: blood products not planned DNR status reviewed with patient and/or family prior to surgery. patient elects to suspend DNR status in the perioperative setting (Full Code). Significant changes in the patient condition since the History and Physical, not otherwise documented in primary service progress note: no. Discussed the possibility of lip / dental damage: yes Vitals Value Taken Time BP 141/99 06/29/25 1232 Pulse 78 06/29/25 1232 Resp 17 06/29/25 1232 Temp 36.9 ?C (98.5 ?F) 06/29/25 1232 SpO2 98 % 06/29/25 1232 Facility-Administered Medications as of 06/29/2025 Medication Dose Route Frequency lidocaine (PF) 10 mg/mL (1 %) 1-2 mg injection (XYLOCAINE) 0.1-0.2 mL INTRADERMAL PRN lactated ringers iv infusion 5-30 mL/hr INTRAVENOUS CONTINUOUS NaCl 0.9% iv flush bag 20 mL INTRAVENOUS PRN ceFAZolin 2 g in D5W 100 mL (ANCEF) 2 g INTRAVENOUS Pre-Op Once Outpatient Medications as of 06/29/2025 Medication Sig scopolamine - REMOVE PATCH every 72 hours. ondansetron orally disintegrating (ZOFRAN ODT) 4 mg disintegrating tablet Take 1 tablet by mouth every 8 hours as needed for nausea/vomiting. SUMAtriptan (IMITREX) 50 mg tablet Take 1 tablet (50 mg) by mouth as needed for migraine headache (see administration instructions). May repeat dose after 2 hours if needed. Maximum daily dose is 200 mg per day. magnesium glycinate 100 mg magnesium capsule Take 2 capsules by mouth two times a day. hydroCHLOROthiazide 25 mg tablet Take 1 tablet [...] needed for pain. Patient filled 06/12/2025 PDMP (Patient not taking: Reported on 06/28/2025) [] cephALEXin (KEFLEX) 500 mg capsule Take 1 capsule by mouth three times a day for 7 days. keTORolac (TORADOL) 10 mg tablet Take 1 tablet by mouth every 6 hours as needed. (Patient not taking: Reported on 06/28/2025) I have interviewed and examined the patient. I have reviewed the medical record and/or the pre-anesthesia evaluation, pertinent (more content not included)... [facility] Matilda 06-29-2025 CNPN Telephone ([facility]) GRETA ANDRES ([id number]) 1990 F Date Time Provider Department 06/29/25 GRETA TEMPLETON [facility] During your visit today, we recorded the following information about you: Greta Templeton DO 06/29/2025 3:42 PM Signed Please schedule RBUS after 08/06/25 plus office follow up to go over images --- she had URS today DO Bert Walker [place], MA 07/02/2025 4:07 PM Signed Called and scheduled patient Gem Noel MA Allergies As of Date: 06/29/2025 Noted Allergy Reaction ADHESIVE 02/12/2010 2 - Rash MORPHINE SULFATE 11/12/2008 9 - Itching Comments: had vicodin at same time, but has taken vicodin in past without reaction ADDERALL (DEXTROAMPHETAMINE-AMPHE* 5 - Intolerance Comments: Heart racing, chest pain, diaphoretic, dizzy Date Reviewed: 06/29/2025 Reviewed by: Kalli Fofana RN - Fully Assessed Primary Visit Diagnosis:Bilateral nephrolithiasis [N20.0] Order(s):US KIDNEY/BLADDER [[id number]] Order #: [id number] FUTURE Prescriptions as of 07/02/2025 - tamsulosin (FLOMAX) 0.4 mg Take 1 capsule by mouth once daily for 7 days. - propranolol (INDERAL) 40 mg tablet Take 1 tablet by mouth two times a day. - scopolamine - REMOVE PATCH every 72 hours. - traMADol (ULTRAM) 50 mg tablet Take [...] time only. Problem List As Of Date 06/29/2025 Noted Resolved Irregular menstrual cycle [N92.6] 04/11/2007 Backache, unspecified [M54.9] 06/19/2008 07/27/2019 Other joint derangement, not elsewhere classifi*08/20/2008 04/25/2024 Other acquired deformity of toe [M20.5X9] 05/20/2009 07/27/2019 Lactose intolerance [E73.9] 03/31/2012 Anxiety, generalized [F41.1] 03/31/2012 Congenital heart defect (HCC) [Q24.9] 03/31/2012 Lumbago [M54.50] 07/27/2012 Lumbar degenerative disc disease [M51.369] 07/27/2012 Back pain [M54.9] 08/07/2013 04/25/2024 Exercise-induced asthma (HCC) [J45.990] 03/22/2014 Vitamin D deficiency [E55.9] 03/22/2014 [...] [N20.0] 04/25/2024 Encounter for gynecological examination [Z01.41*04/25/2024 Dermato (more content not included)... Normal [facility] ECG COMPLETEon 06-29-2025 ECG COMPLETE Ventricular Rate : 6 1 BPM Atrial Rate : 61 BPM P-R Interval : 156 ms QRS Duration : 96 ms Q-T Interval : 428 ms QTC Calculation(Bazett) : 430 ms Calculated P [place] : 28 degrees Calculated R [place] : -2 degrees Calculated T [place] : 59 degrees Normal sinus rhythm with sinus arrhythmia Minimal voltage criteria for LVH, may be normal variant ( R in aVL ) Borderline ECG No previous ECGs available Confirmed by TERRY QUILES MD ([id number]) on 07/02/2025 5:00:40 PM NAME : GRETA ANDRES PID : [id number] : 1990 Gender : Female Race : ORD : [id number] Procedure Date : Jun 29 2025 12:28:32 Edit Date : Jul 02 2025 17:00:48 Diagnosis: Normal sinus rhythm with sinus arrhythmia Minimal voltage criteria for LVH, may be normal variant ( R in aVL ) Borderline ECG No previous ECGs available Confirmed by TERRY QUILES MD ([id number]) on 07/02/2025 5:00:40 PM Test Reason : OTOE Location : 7 : [facility] Overread By : TERRY QUILES MD Edited By : TERRY QUILES MD Referred By : , Acquired by : PATY MON [facility] HCG Preg Ur Qlon 06-29-2025 HCG ( test) Ql (U) Negative Normal Negative [facility] Comment on above: Order Comment: Speci men Type: URINE SPECIMEN Ordering Facility: [facility] Address: [address] [place] [address] Result Comment: This test is intended to aid in the early detection of . Very dilute urine samples, as indicated by a low specific gravity, may not contain claim representative levels of hCG. This test detects intact hCG only. This test does not reliably detect hCG degradation products, including free-beta subunit and beta-core fragment. Therefore, this test may show reduced reactivity in urine after 8 weeks gestation. A number of conditions other than , including trophoblastic disease and certain non-trophoblastic neoplasms cause elevated levels of hCG. As with any assay employing mouse antibodies, the possibility exists for interference by human anti-mouse antibodies (HAMA) in the specimen. The test provides a presumptive diagnosis for . Performed By: #### 2 106-3 #### [facility] CLIA [id number] [address] [place] [address] [place] OPERATIVE NOon 06-29-2025 OPERATIVE NO HNO ID: [id number] Author: GRETA TEMPLETON DO Service: Urology Author Type: Physician Type: Operative Report Filed: 06/29/2025 15:31 Note Text: OPERATIVE/PROCEDURE REPORT LOG ID: [id number] SURGERY/PROCEDURE DATE: 06/29/2025 INCISION/PROCEDURE START TIME: 2:18 PM INCISION CLOSE/PROCEDURE END TIME: 3:13 PM SURGEON(S)/PROCEDURALIST(S) AND RESEARCH CENTER PARTNER(S): Surgeons and Role: * Greta Templeton DO - Primary No Additional Staff SURGERY/PROCEDURE(S): Cystoscopy, Bilateral Retrograde Pyelogram with Intraoperative Interpretation, Right Ureteroscopy and Right Pyeloscopy, Laser Lithotripsy, Stone Basketing, Right Stent Placement ANESTHESIA: General PRE-OP/PRE-PROCEDURE DIAGNOSIS: Right renal stone, Right flank pain POST-OP/POST-PROCEDURE DIAGNOSIS: Same as Preop ESTIMATED BLOOD LOSS: 0 ml SPECIMENS: None IMPLANTABLE DEVICES: Implant Name Type Inv. Item Serial No. Administrative Program Specialist Lot No. LRB No. Used Action STENT INLAY OPTIMA 6FR TAPER DIOMEDE GREEN POLYMER PHREECOAT 28CM URETERAL - [id number] Urologic Stents STENT INLAY OPTIMA 6FR TAPER DIOMEDE GREEN POLYMER PHREECOAT 28CM URETERAL DAVID MIKE [id number] Right 1 Implanted FOLEYS: None COMPLICATIONS: None CLOSURE TECHNIQUE: n/a PARTICIPATION IN SURGERY/PROCEDURE: I/primary surgeon/proceduralist performed the entire procedure. INDICATION FOR PROCEDURE: Greta Andres was seen in office for R renal stones, R flank pain. After discussing options, the patient elected to go with R URS. The patient presents today and in preop was doing well. Rereviewed the risks/benefits of the procedure and answered all questions. Informed consent was signed and secured on the chart. SURGERY/PROCEDURE DETAILS: A huddle was performed wherein the patient, procedure, and laterality were verified in the presence of the patient and operative team. The patient was transported to the operating room and transferred to the operating table in the supine position. Sequential compression devices were placed on the lower extremities and turned on. After the placement of lines and monitors, anesthesia was induced. Prophylactic antibiotics were administered prior to the procedure start (Ancef). The patient was positioned in dorsal lithotomy. The genitalia were prepped and draped in the usual sterile fashion. A time out was performed, wherein the patient, procedure, and laterality were confirmed prior to starting. A 22 Beninese sheath rigid cystoscope was used to inspect both the urethra and bladder. The urethra was without any lesions or strictures. After thorough inspection with 30 degree lens, bladder mucosa appeared normal with two ureteral orifices in orthotopic position (there were no trabeculations, diverticula, cellules, masses/tumors or foreign bodies). On gauntlet pairer, the stone was not visible. A 5 Fr open ended catheter was used to gently cannulate the left then the right ureteral orifice. Contrast dye was injected and a retrograde pyelograms was performed and interpreted. Normal course, caliber for each ureter, no filling defects, also no hydronephrosis. Prompt drainage on the left. A 0.035 Amplantz was placed in the right ureter up to the kidney under fluoroscopic guidance. A disposable ureteroscope was assembled and advanced to the kidney over the wire. All calyces explored. Located small stone in renal pelvis and tiny stones in upper pole, interpolar calyx. Using a 272 Excalibur micron laser fiber was used to dust the calculus into tiny fragments, which were too small to basket. Stones dusted nicely. Another gentle retrograde was performed and there were no filling defects to suggest significant residual stone. There was no extravasation of contrast to suggest collecting system injury. All calyces were systematically cleared. Final pass of the ureteroscope confirmed no further calculi >3mm. Scope retracted, cleared ureter, no injury but mild edema at UVJ Given the edema distally, decision made to place a stent. The ureteroscope was exchanged for the cystoscope, which was back-loaded over the wire. A 6 iranian 28 cm double j ureteral stent was passed over the wire. Once in position, the wire was removed. Good coil was noted in the renal pelvis and in the bladder under fluoroscopic guidance. There was good drainage through the stent holes. The patient's bladder was emptied and the cystoscope was removed. The instruments were inspected and were noted to have been removed intact. Counts were reported to be correct. Patient awoken from anesthesia having tolerated the procedure well. Greta Andres was transferred to recovery room in stable condition. PLAN: - d/c home once anesthesia criteria met - Rx: Flomax 1 week, Refill Homer 1x - Follow-up: RBUS 5 weeks - Discussed return precautions - Pt instructions provided SIGNATURE: Greta TempletonDO PATIENT NAME: Greta Andres DATE: June 29, 2025 TIME: 3:24 PM [facility] THYROGLOBULIN&THYROGLOBULIN ABon 06-29-2025 Blanket Washer review Cristi (Unsp spec) [Interp] SEE COMMENTS [facility] Comment on above: Thyroglobulin (Tg) r eference intervals are for patients with an intact [...] testing methods are immunoenzymatic assays manufactured by [employer] and performed on the ForeSee DXI 800. Values obtained from different assay methods or kits may be different and cannot be used interchangeably. The results cannot be interpreted as absolute evidence for the presence or absence of malignant disease. Test Performed by: [facility] - [address] [address] Property Management Supervisor: Tennille Mejia Ph.D.; CLIA# [id number] Thyroglobulin [Mass/Vol] <0.1 < or = 33 ng/mL [facility] Thyroglobulin Ab IA Qn <1.8 NINF [facility] CNOVon 06-28-2025 CNOV Office Visit (FAMPWS ) GRETA ANDRES ([id number]) 1990 F Date Time Provider Department 06/28/25 11:00 AM NAGI REDPWS During your visit today, we recorded the [...] change in her BP readings. Yesterday at OV in [place] it was 159/95. Supposed to hear back from regarding her Thyroid results and dosage from Dr. Caitlyn Rivera, Division of Endo at [facility]. Greta Andres is a 35-year-old female [...] a referral to a specialist at the [facility] for gastroparesis management. 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 No surgical correction done. The father of the baby's brother born with a hole in his heart. Surgical correction was done. 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[facility]) Degenerative disc disease Disorders of sacrum [...] joint dysfun (more content not included)... Normal [facility] CHG US SOFT TISSUE HEAD & NE CK REAL TIME IMGE DOCMon 06-27-2025 Caitlyn Rivera MD 10/2025 1:48 AM ULTRASOUND NOTE Images were taken through the central and lateral neck bilaterally. This reveals no residual tissue in the thyroid bed. RIGHT CENTRAL: No suspicious lesion. RIGHT LATERAL: No suspicious lesion LEFT CENTRAL: No suspicious lesions LEFT LATERAL: No suspicious nodes [facility] THYROGLOBULIN&THYROGLOBULIN ABon 06-27-2025 Thyroglobulin Antibody <1.8 Normal <1.8 [facility] Comment on above: Performed By: #### T HYBAT #### [facility] (DEFAULT) [address] [place] [address] Thyroglobulin Interpretation SEE COMMENTS Normal [facility] Comment on above: Result Comment: Thyr [...] testing methods are immunoenzymatic assays manufactured by [employer] and performed on the ForeSee DXI 800. Values obtained from different assay methods or kits may be different and cannot be used interchangeably. The results cannot be interpreted as absolute evidence for the presence or absence of malignant disease. Test Performed by: [facility] [address] [place] [address] Property Management Supervisor: Tennille Mejia Ph.D.; CLIA# [id number] Performed By: #### T HYBAT #### [facility] (DEFAULT) [address] [address] Thyroglobulin, Tumor Marker <0.1 Normal < or = 33 [facility] Comment on above: Performed By: #### T HYBAT #### [facility] (DEFAULT) [address] [address] TSHon 06-27-2025 Interpretation and review of laboratory results Normal [facility] TSH Qn 2.099 m[IU]/L [facility] TSH 2.099 uIU/mL Normal 0.550-4.780 [facility] Comment on above: Performed By: #### T SH #### [facility] (DEFAULT) [address] [address] [place] Unspecified body regionOr dered By: Unassigned Pacs on 06-27-2025 [facility] Work Phone: [place] Unspecified body regionon 06-27-2025 Radiology Study observation (narrative) [facility] Matilda 06-26-2025 CNPN Telephone (UROUPD) GRETA ANDRES ([id number]) 1990 F Date Time Provider Department 06/26/25 GRETA TEMPLETON During your visit today, we recorded the following information about you: Greta Templeton DO 06/26/2025 1:49 PM Signed Please call [place] [facility] to see why the Homer I prescribed was canceled 06/25/25 , I [...] Encounter Status:Closed by GRETA TEMPLETON on 06/26/25 [facility] Matilda 06-25-2025 MARGARITAN Telephone (FAMPWS) GRETA ANDRES ([id number]) 1990 F Date Time Provider Department 06/25/25 NAGI RED During your visit today, we [...] is elevated due to her increased pain[facility] about this, she [...] and concen (more content not included)... [facility] ([id number]) 1990 F Date Time Provider Department 06/25/25 [...] ask to see how she did with Homer in the past and let me know DO Dipesh Walker Kaelee 06/25/2025 4:30 PM Signed Spoke to pt and she voiced her understanding, she did state if she remembers correctly she is fine with Homer. Greta Templeton DO 06/25/2025 5:16 PM Signed Stop Tramadol sending Rx Homer DO Roya Walker Brittany, DO 06/25/2025 5:16 [...] diaphoretic, dizzy Date Reviewed: 06/19/2025 Reviewed by: Caor Dominguez - Fully Assessed Primary Visit Diagnosis:Bilateral [...] 06/22 (more content not included)... [facility] 06-19-2025 [facility] Office Visit (URUN) GRETA ANDRES ([id number]) 1990 F Date Time Provider Department 06/19/25 11:00 AM GRETA TEMPLETON During your visit today, we recorded the following information about you: Pulse Blood pressure 74/minute 143/99 Greta Templeton DO 06/29/2025 1:26 PM Signed [facility] [place] ESTABLISHED PATIENT NOTE/HISTORY AND PHYSICAL PATIENT: Greta Andres (35 year old) PCP: Nagi Red MD DATE OF SERVICE: 06/19/2025 SUBJECTIVE: CHIEF COMPLAINT: Follow Up (CT f/u. Patient has no new complaints and still in a lot of pain. ) HISTORY OF PRESENT ILLNESS: Recording using [email or web address] software for draft documentation of the visit was discussed with the patient/authorized claim representative; all questions welcomed and answered. Patient/authorized claim representative agreed to proceed The patient was last seen by Greta Templeton DO on 06/15/25 . Prior notes were reviewed. Patient returns today for follow up . In interim still having R sided pain but after ER this weekend felt she may have passed calcification, had gross hematuria at time also. Since then, R sided pain improving (Tramadol works better than Toradol), n/v improving through chronic 2/2 gastroparesis, she admits. Also here discuss CT, next steps Review of Symptoms: Genitourinary: See HPI Constitutional: [...] 1 disorder (HCC) (02/14/2018), Bipolar 1 disorder (HCC), Chronic fatigue disorder (03/19/2015), Congenital heart defect (HCC) (03/31/2012), 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[facility]), Degenerative disc disease, Disorders of sacrum [...] medication list which includes the following prescription(s): cephalexin, ondansetron orally disintegrating, ketorolac, tramadol, tramadol, sumatriptan, magnesium glycinate, riboflavin (vitamin b2), hydrochlorothiazide, propranolol, quetiapine, cariprazine, cholecalciferol (vitamin d3), cyclobenzaprine, albuterol hfa, levothyroxine, levothyroxine, and etonogestrel. Allergies: -Patient is allergic to adhesive, morphine sulfate, and adderall [dextroamphetamine-amphetami ne]. Family History: -Patient family history includes Asthma in her mother; CROHN (more content not included)... [facility] HISTORY PHYSICALon HISTORY PHYSICAL HNO ID: [id number] Author: GRETA TEMPLETON DO Service: ? Author Type: Physician Type: H&P Filed: 06/29/2025 13:26 Note Text: [facility] [place] ESTABLISHED PATIENT NOTE/HISTORY AND PHYSICAL PATIENT: Greta Andres (35 year old) PCP: Nagi Red MD DATE OF SERVICE: 06/19/2025 SUBJECTIVE: CHIEF COMPLAINT: Follow Up (CT f/u. Patient has no new complaints and still in a lot of pain. ) HISTORY OF PRESENT ILLNESS: Recording using [email or web address] software for draft documentation of the visit was discussed with the patient/authorized claim representative; all questions welcomed and answered. Patient/authorized claim representative agreed to proceed The patient was last seen by Greta Templeton DO on 06/15/25 . Prior notes were reviewed. Patient returns today for follow up . In interim still having R sided pain but after ER this weekend felt she may have passed calcification, had gross hematuria at time also. Since then, R sided pain improving (Tramadol works better than Toradol), n/v improving through chronic 2/2 gastroparesis, she admits. Also here discuss CT, next steps Review of Symptoms: Genitourinary: See HPI Constitutional: [...] generalized, Back pain (08/07/2013), Bipolar 1 disorder ([facility]) (02/14/2018), Bipolar 1 disorder ([facility]), Chronic fatigue disorder (03/19/2015), Congenital heart defect ([facility]) (03/31/2012), 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[facility]), Degenerative disc disease, Disorders of sacrum (02/20/2013), Dysmenorrhea (04/11/2007), Exercise-induced asthma ([facility]) (03/22/2014), Fetus conceived on control (03/31/2012), Fibromyalgia, Gastroparesis (03/25/2024), GERD (gastroesophageal reflux disease) (03/22/2014), HALLUX VALGUS (01/23/2009), Hypertension, essential (07/06/2022), Irregular menstrual cycle (04/11/2007), Lactose intolerance (03/31/2012), Lumbago (07/27/2012), Lumbar degenerative disc disease (07/27/2012), Lumbar spinal stenosis (04/25/2024), Lupus (systemic lupus erythematosus) ([facility]), Migraine without aura and without status migrainosus, not intractable (05/20/2017), Multiple thyroid nodules (07/26/2019), Neoplasm of uncertain behavior of skin of back, Obesity, Class I, BMI 30-34.9 (03/03/2023), Other and unspecified ovarian cyst, Other joint derangement, not elsewhere classified, lower leg (08/20/2008), 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 Allergies: -Patient is allergic to adhesive, morphine sulfate, and adderall [dextroamphetamine-amphetami ne]. Family History: -Patient family history includes Asthma in her mother; CROHNS in her mother; Cancer in her maternal uncle; Diabetes in her mother; Heart in her sister; Hypertension in her father and mother; KIDNEY PROBLEMS in her mother; LIVER SCLEROSIS in her mother; LUPUS in her mother; PCOS in her sister. (more content not included)... Normal [facility] CBC W Auto Differential pane l (Bld)on 06-16-2025 Basophils (Bld) [#/Vol] 0.05 10*3/uL Normal <0.11 [facility] Comment on above: Order Comment: Speci men Type: BLOOD SPECIMEN Ordering Facility: [facility] Address: [address] [place] [address] Performed By: #### 5 7021-8 #### [facility] CLIA [id number] [address] [place] [address] [place] Basophils/100 WBC (Bld) 0.4 % [facility] Comment on above: Order Comment: Speci men Type: BLOOD SPECIMEN Ordering Facility: [facility] Address: [address] [place] [address] Performed By: #### 5 7021-8 #### [facility] CLIA [id number] [address] [place] [address] [place] Differential cell count method Nom (Bld) Auto [facility] Comment on above: Order Comment: Speci men Type: BLOOD SPECIMEN Ordering Facility: [facility] Address: [address] [place] [address] Performed By: #### 5 7021-8 #### [facility] CLIA [id number] [address] [place] [address] [place] Eosinophils (Bld) [#/Vol] 0.25 10*3/uL Normal <0.46 [facility] Comment on above: Order Comment: Speci men Type: BLOOD SPECIMEN Ordering Facility: [facility] Address: [address] [place] [address] Performed By: #### 5 7021-8 #### [facility] CLIA [id number] [address] [place] [address] [place] Eosinophils/100 WBC (Bld) 1.9 % [facility] Comment on above: Order Comment: Speci men Type: BLOOD SPECIMEN Ordering Facility: [facility] Address: [address] [place] [address] Performed By: #### 5 7021-8 #### [facility] CLIA [id number] [address] [place] [address] [place] Erythrocyte distribution width (RBC) [Ratio] 13.7 % Normal 11.5-15.0 [facility] Comment on above: Order Comment: Speci men Type: BLOOD SPECIMEN Ordering Facility: [facility] Address: [address] [place] [address] Performed By: #### 5 7021-8 #### [facility] CLIA [id number] [address] [place] [address] [place] Hematocrit (Bld) [Volume fraction] 37.8 % Normal 36.0-46.0 [facility] Comment on above: Order Comment: Speci men Type: BLOOD SPECIMEN Ordering Facility: [facility] Address: [address] [place] [address] Performed By: #### 5 7021-8 #### [facility] CLIA [id number] [address] [place] [address] [place] Hemoglobin (Bld) [Mass/Vol] 13.0 g/dL Normal 11.5-15.5 [facility] Comment on above: Order Comment: Speci men Type: BLOOD SPECIMEN Ordering Facility: [facility] Address: [address] [place] [address] Performed By: #### 5 7021-8 #### [facility] CLIA [id number] [address] [place] [address] [place] Immature granulocytes (Bld) [#/Vol] 0.18 10*3/uL High <0.10 [facility] Comment on above: Order Comment: Speci men Type: BLOOD SPECIMEN Ordering Facility: [facility] Address: [address] [place] [address] Performed By: #### 5 7021-8 #### [facility] CLIA [id number] [address] [place] [address] [place] Immature granulocytes/100 WBC (Bld) 1.4 % Normal [facility] Comment on above: Order Comment: Speci men Type: BLOOD SPECIMEN Ordering Facility: [facility] Address: [address] [place] [address] Performed By: #### 5 7021-8 #### [facility] CLIA [id number] [address] [place] [address] [place] Lymphocytes (Bld) [#/Vol] 3.12 10*3/uL Normal 1.00-4.00 [facility] Comment on above: Order Comment: Speci men Type: BLOOD SPECIMEN Ordering Facility: [facility] Address: [address] [place] [address] Performed By: #### 5 7021-8 #### [facility] CLIA [id number] [address] [place] [address] [place] Lymphocytes/100 WBC (Bld) 23.9 % Normal [facility] Comment on above: Order Comment: Speci men Type: BLOOD SPECIMEN Ordering Facility: [facility] Address: [address] [place] [address] Performed By: #### 5 7021-8 #### [facility] CLIA [id number] [address] [place] [address] [place] MCH (RBC) [Entitic mass] 28.3 pg Normal 26.0-34.0 [facility] Comment on above: Order Comment: Speci men Type: BLOOD SPECIMEN Ordering Facility: [facility] Address: [address] [place] [address] Performed By: #### 5 7021-8 #### [facility] CLIA [id number] [address] [place] [address] [place] MCHC (RBC) [Mass/Vol] 34.4 g/dL Normal 30.5-36.0 [facility] Comment on above: Order Comment: Speci men Type: BLOOD SPECIMEN Ordering Facility: [facility] Address: [address] [place] [address] Performed By: #### 5 7021-8 #### [facility] CLIA [id number] [address] [place] [address] [place] MCV (RBC) [Entitic vol] 82.4 fL Normal 80.0-100.0 [facility] Comment on above: Order Comment: Speci men Type: BLOOD SPECIMEN Ordering Facility: [facility] Address: [address] [place] [address] Performed By: #### 5 7021-8 #### [facility] CLIA [id number] [address] [place] [address] [place] Monocytes (Bld) [#/Vol] 0.85 10*3/uL Normal <0.87 [facility] Comment on above: Order Comment: Speci men Type: BLOOD SPECIMEN Ordering Facility: [facility] Address: [address] [place] [address] Performed By: #### 5 7021-8 #### [facility] CLIA [id number] [address] [place] [address] [place] Monocytes/100 WBC (Bld) 6.5 % Normal [facility] Comment on above: Order Comment: Speci men Type: BLOOD SPECIMEN Ordering Facility: [facility] Address: [address] [place] [address] Performed By: #### 5 7021-8 #### [facility] CLIA [id number] [address] [place] [address] [place] Neutrophils (Bld) [#/Vol] 8.61 10*3/uL High 1.45-7.50 [facility] Comment on above: Order Comment: Speci men Type: BLOOD SPECIMEN Ordering Facility: [facility] Address: [address] [place] [address] Performed By: #### 5 7021-8 #### [facility] CLIA [id number] [address] [place] [address] [place] Neutrophils/100 WBC (Bld) 65.9 % Normal [facility] Comment on above: Order Comment: Speci men Type: BLOOD SPECIMEN Ordering Facility: [facility] Address: [address] [place] [address] Performed By: #### 5 7021-8 #### [facility] CLIA [id number] [address] [place] [address] [place] Nucleated RBC (Bld) [#/Vol] 10*3/uL Normal <0.01 [facility] Comment on above: Order Comment: Speci men Type: BLOOD SPECIMEN [facility] [facility] Address: [address] [place] [address] Performed By: #### 5 7021-8 #### [facility] CLIA [id number] [address] [place] [address] [place] Nucleated RBC/100 WBC (Bld) [Ratio] 0.0 /100 WBC Normal [facility] Comment on above: Order Comment: Speci men Type: BLOOD SPECIMEN Ordering Facility: [facility] Address: [address] [place] [address] Performed By: #### 5 7021-8 #### [facility] CLIA [id number] [address] [place] [address] [place] Platelet mean volume (Bld) [Entitic vol] 10.1 fL Normal 9.0-12.7 [facility] Comment on above: Order Comment: Speci men Type: BLOOD SPECIMEN Ordering Facility: [facility] Address: [address] [place] [address] Performed By: #### 5 7021-8 #### [facility] CLIA [id number] [address] [place] [address] [place] Platelets (Bld) [#/Vol] 239 10*3/uL Normal 150-400 [facility] Comment on above: Order Comment: Speci men Type: BLOOD SPECIMEN Ordering Facility: [facility] Address: [address] [place] [address] Performed By: #### 5 7021-8 #### [facility] CLIA [id number] [address] [place] [address] [place] RBC (Bld) [#/Vol] 4.59 10*6/uL Normal 3.90-5.20 [facility] Comment on above: Order Comment: Speci men Type: BLOOD SPECIMEN Ordering Facility: [facility] Address: [address] [place] [address] Performed By: #### 5 7021-8 #### [facility] CLIA [id number] [address] [place] [address] [place] WBC (Bld) [#/Vol] 13.06 10*3/uL High 3.70-11.00 [facility] Comment on above: Order Comment: Speci men Type: BLOOD SPECIMEN Ordering Facility: [facility] Address: [address] [place] [address] Performed By: #### 5 7021-8 #### [facility] CLIA [id number] [address] [place] [address] [place] Comprehensive metabolic 2000 panelon 06-16-2025 Albumin [Mass/Vol] 4.2 g/dL Normal 3.9-4.9 [facility] Comment on above: Order Comment: Speci men Type: BLOOD SPECIMEN Ordering Facility: [facility] Address: [address] [place] [address] Performed By: #### 2 4323-8 #### [facility] CLIA [id number] [address] [place] [address] [place] ALP [Catalytic activity/Vol] 76 U/L Normal 34-123 [facility] Comment on above: Order Comment: Speci men Type: BLOOD SPECIMEN Ordering Facility: [facility] Address: [address] [place] [address] Performed By: #### 2 4323-8 #### [facility] CLIA [id number] [address] [place] [address] [place] ALT [Catalytic activity/Vol] 20 U/L Normal 7-38 [facility] Comment on above: Order Comment: Speci men Type: BLOOD SPECIMEN Ordering Facility: [facility] Address: [address] [place] [address] Performed By: #### 2 4323-8 #### [facility] CLIA [id number] [address] [place] [address] [place] Anion gap [Moles/Vol] 11 mmol/L Normal 8-15 [facility] Comment on above: Order Comment: Speci men Type: BLOOD SPECIMEN Ordering Facility: [facility] Address: [address] [place] [address] Performed By: #### 2 4323-8 #### [facility] CLIA [id number] [address] [place] [address] [place] AST [Catalytic activity/Vol] 23 U/L Normal 13-35 [facility] Comment on above: Order Comment: Speci men Type: BLOOD SPECIMEN Ordering Facility: [facility] Address: [address] [place] [address] Result Comment: Resu lts may be falsely increased due to interference by hemolysis. Suggest reorder as clinically indicated. Performed By: #### 2 4323-8 #### [facility] CLIA [id number] [address] [place] [address] [place] Bilirubin [Mass/Vol] 0.3 mg/dL Normal 0.2-1.3 [facility] Comment on above: Order Comment: Speci men Type: BLOOD SPECIMEN Ordering Facility: [facility] Address: [address] [place] [address] Performed By: #### 2 4323-8 #### [facility] CLIA [id number] [address] [place] [address] [place] Calcium [Mass/Vol] 9.7 mg/dL Normal 8.5-10.2 [facility] Comment on above: Order Comment: Speci men Type: BLOOD SPECIMEN Ordering Facility: [facility] Address: [address] [place] [address] Performed By: #### 2 4323-8 #### [facility] CLIA [id number] [address] [place] [address] [place] Chloride [Moles/Vol] 107 mmol/L Normal 98-107 [facility] Comment on above: Order Comment: Speci men Type: BLOOD SPECIMEN Ordering Facility: [facility] Address: [address] [place] [address] Performed By: #### 2 4323-8 #### [facility] CLIA [id number] [address] [place] [address] [place] CO2 [Moles/Vol] 22 mmol/L Normal 22-30 [facility] Comment on above: Order Comment: Monica tsang Type: BLOOD SPECIMEN Ordering Facility: [facility] Address: [address] [place] [address] Performed By: #### 2 4323-8 #### [facility] CLIA [id number] [address] [place] [address] [place] Creatinine [Mass/Vol] 0.61 mg/dL Normal 0.58-0.96 [facility] Comment on above: Order Comment: Speci men Type: BLOOD SPECIMEN Ordering Facility: [facility] Address: [address] [place] [address] Performed By: #### 2 4323-8 #### [facility] CLIA [id number] [address] [place] [address] [place] eGFRcr SerPlBld CKD-EPI 2020 120 mL/min/1.73m??? Normal >=60 [facility] Comment on above: Order Comment: Monica sharan Type: BLOOD SPECIMEN Ordering Facility: [facility] Address: [address] [place] [address] Result Comment: Claudia mated Glomerular Filtration Rate [...] GFR. Performed By: #### 2 4323-8 #### [facility] CLIA [id number] [address] [place] [address] [place] Glucose [Mass/Vol] 94 mg/dL Normal 74-99 [facility] Comment on above: Order Comment: Gogoi sharan Type: BLOOD SPECIMEN Ordering Facility: [facility] Address: [address] [place] [address] Result Comment: The [place] Diabetes Association (ADA) provides guidance for cutoff [...] Standards of Medical Care in Diabetes 2016, [place] Diabetes Association. Diabetes Care. 2016.39(Suppl 1). Performed By: #### 2 4323-8 #### [facility] CLIA [id number] [address] [place] [address] [place] Potassium [Moles/Vol] 4.0 mmol/L Normal 3.7-5.1 [facility] Comment on above: Order Comment: Speci men Type: BLOOD SPECIMEN Ordering Facility: [facility] Address: [address] [place] [address] Performed By: #### 2 4323-8 #### [facility] CLIA [id number] [address] [place] [address] [place] Protein [Mass/Vol] 7.2 g/dL Normal 6.3-8.0 [facility] Comment on above: Order Comment: Speci men Type: BLOOD SPECIMEN Ordering Facility: [facility] Address: [address] [place] [address] Performed By: #### 2 4323-8 #### [facility] CLIA [id number] [address] [place] [address] [place] Sodium [Moles/Vol] 140 mmol/L Normal 136-144 [facility] Comment on above: Order Comment: Speci men Type: BLOOD SPECIMEN Ordering Facility: [facility] Address: [address] [place] [address] Performed By: #### 2 4323-8 #### [facility] CLIA [id number] [address] [place] [address] [place] Urea nitrogen [Mass/Vol] 8 mg/dL Normal 7-21 [facility] Comment on above: Order Comment: Speci men Type: BLOOD SPECIMEN Ordering Facility: [facility] Address: [address] [place] [address] Performed By: #### 2 4323-8 #### [facility] CLIA [id number] [address] [place] [address] STATES OF [facility] ED PROV NOTEon 06-16-2025 ED PROV NOTE HNO ID: [id number] Author: JEN ROBERTSON DO Service: ? Author [...] when she moves. 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 Normal [facility] HCG QUALITATIVEon 06-16-2025 HCG, QUALITATIVE Negative Normal Negative [facility] Comment on above: Order Comment: Speci men Type: BLOOD SPECIMEN Ordering Facility: [facility] Address: [address] [place] [address] Performed By: #### H CG #### [facility] CLIA [id number] [address] [place] [address] [place] Urinalysis complete panel (U )on 06-16-2025 Bacteria LM.HPF (Urine sed) [#/Area] Rare Abnormal None Seen [facility] Comment on above: Order Comment: Speci men Type: URINE SPECIMENOrdering Facility: [facility] Address: [address] [place] [address] Performed By: #### 2 4356-8 ####[facility] [id number] [place] [address] [place] Bilirubin Ql (U) Negative Normal Negative [facility] Comment on above: Order Comment: Speci men Type: URINE SPECIMENOrdering Facility: [facility] Address: [address] [place] [address] Performed By: #### 2 4356-8 ####[facility] [id number] [place] [address] [place] Clarity (Unsp spec) Clear Normal Clear [facility] Comment on above: Order Comment: Speci men Type: URINE SPECIMENOrdering Facility: [facility] Address: [address] [place] [address] Performed By: #### 2 4356-8 ####[facility] [id number] [place] [address] [place] Color (U) Yellow Normal Yellow [facility] Comment on above: Order Comment: Speci men Type: URINE SPECIMENOrdering Facility: [facility] Address: [address] [place] [address] Performed By: #### 2 4356-8 ####[facility] [id number] [place] [address] [place] Epithelial cells LM.HPF (Urine sed) [#/Area] Few Normal [facility] Comment on above: Order Comment: Speci men Type: URINE SPECIMENOrdering Facility: [facility] Address: [address] [place] [address] Performed By: #### 2 4356-8 ####[facility] [id number] [place] [address] [place] Glucose Test strip (U) [Mass/Vol] Negative Normal Negative [facility] Comment on above: Order Comment: Speci men Type: URINE SPECIMENOrdering Facility: [facility] Address: [address] [place] [address] Performed By: #### 2 4356-8 ####[facility] [id number] [place] [address] [place] Hemoglobin Ql (U) 3+ Abnormal Negative [facility] Comment on above: Order Comment: Speci men Type: URINE SPECIMENOrdering Facility: [facility] Address: [address] [place] [address] Performed By: #### 2 4356-8 ####[facility] [id number] [address] [place] Ketones Ql (U) Negative Normal Negative [facility] Comment on above: Order Comment: Speci men Type: URINE SPECIMENOrdering Facility: [facility] Address: [address] [place] [address] Performed By: #### 2 4356-8 ####[facility] [id number] [address] STATES [facility] Leukocyte esterase Test strip Ql (U) Negative Normal Negative [facility] Comment on above: Order Comment: Speci men Type: URINE SPECIMENOrdering Facility: [facility] Address: [address] [place] [address] Performed By: #### 2 4356-8 ####[facility] [id number] [place] [address] [place] Nitrite Ql (U) Negative Normal Negative [facility] Comment on above: Order Comment: Speci men Type: URINE SPECIMENOrdering Facility: [facility] Address: [address] [place] [address] Performed By: #### 2 4356-8 ####[facility] [id number] [place] [address] [place] pH (U) 6.5 [pH] Normal 5.0-8.0 [facility] Comment on above: Order Comment: Speci men Type: URINE SPECIMENOrdering Facility: [facility] Address: [address] [place] [address] Performed By: #### 2 4356-8 ####[facility] [id number] [place] [address] [place] Protein (U) [Mass/Vol] Negative Normal Negative [facility] Comment on above: Order Comment: Speci men Type: URINE SPECIMENOrdering Facility: [facility] Address: [address] [place] [address] Performed By: #### 2 4356-8 ####[facility] [id number] [place] [address] [place] RBC LM.HPF (Urine sed) [#/Area] /[HPF] Abnormal 0-3 /HPF [facility] Comment on above: Order Comment: Speci men Type: URINE SPECIMENOrdering Facility: [facility] Address: [address] [place] [address] Performed By: #### 2 4356-8 ####[facility] [id number] [address] STATES [facility] Specific gravity (U) [Rel density] 1.020 Normal 1.005-1.030 [facility] Comment on above: Order Comment: Speci men Type: URINE SPECIMENOrdering Facility: [facility] Address: [address] [place] [address] Performed By: #### 2 4356-8 ####[facility] [id number] [place] [address] [facility] Urobilinogen Ql (U) 0.2 EU/dL Normal 0.2-1.0 EU/dL [facility] Comment on above: Order Comment: Speci men Type: URINE SPECIMENOrdering Facility: [facility] Address: [address] [place] [address] Performed By: #### 2 4356-8 ####[facility] [id number] [place] [address] [facility] WBC LM.HPF (Urine sed) [#/Area] 6-10 /HPF Abnormal 0-5 /HPF [facility] Comment on above: Order Comment: Speci men Type: URINE SPECIMENOrdering Facility: [facility] Address: [address] [place] [address] Performed By: #### 2 4356-8 ####[facility] [id number] [place] [address] [facility] CNOVon 06-15-2025 CNOV Office Visit (URUN) GRETA ANDRES ([id number]) 1990 F Date Time Provider Department 06/15/25 11:40 AM GRETA [place] During your visit today, we recorded the following information about you: Pulse Blood pressure 91/minute 136/100 Yanci Navarrete RN 06/15/2025 2:15 PM Signed Medication requested and received from pharmacy. Injection given IM in left deltoid sites. Pt jamaal well. Post injection instructions given. Educated on side effects and s/s of allergic reaction. No further c/o or concerns. Verbalized understanding. DEANDRE BassGreta gottlieb, 06/15/2025 2:15 PM Signed [facility] [place] ESTABLISHED PATIENT NOTE/HISTORY AND PHYSICAL PATIENT: Greta [...] ) HISTORY OF PRESENT ILLNESS: Recording using [email or web address] software for draft documentation of the visit was discussed with the patient/authorized claim representative; all questions welcomed and answered. Patient/authorized claim representative agreed to proceed The patient was [...] generalized, Back pain (08/07/2013), Bipolar 1 disorder ([facility]) (02/14/2018), Bipolar 1 disorder ([facility]), Chronic fatigue disorder (03/19/2015), Congenital heart defect (HCC) (03/31/2012), 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[facility]), Degenerative disc disease, Disorders of sacrum (02/20/2013), Dysmenorrhea (04/11/2007), Exercise-induced asthma ([facility]) (03/22/2014), Fetus conceived on control (03/31/2012), Fibromyalgia, Gastroparesis (03/25/2024), GERD (gastroesophageal reflux disease) (03/22/2014), HALLUX VALGUS (01/23/2009), Hypertension, essential (07/06/2022), Irregular menstrual cycle (04/11/2007), Lactose intolerance (03/31/2012), Lumbago (07/27/2012), Lumbar degenerative disc disease (07/27/2012), Lumbar spinal stenosis (04/25/2024), Lupus (systemic lupus erythematosus) ([facility]), Migraine without aura and without status [...] albuterol hfa, levothyroxine (more content not included)... [facility] CT Abdomen and Pelvis WO con traston 06-15-2025 IMPRESSION: Nonobstructing bilateral renal calculi. Can Solderer: EITAN Transcribe Date/Time: Jun 15 2025 12:57P Dictated by : SRIDHAR ROSAS MD This examination was interpreted and the report reviewed and electronically signed by: SRIDHAR ROSAS MD on Jun 15 2025 1:02PM [facility] * * *Final Report* * * DATE OF EXAM: Jun 15 2025 12:46PM [facility] 0529 - CT FLANK WO IVCON / [...] thorax: Unremarkable. Localizer images: No additional findings. [facility], [facility] [facility]/15/[facility]25 * * *Final Report* * * DATE OF EXAM: Jun 15 2025 12:46PM [facility] 0529 - CT FLANK WO IVCON / [...] findings. IMPRESSION IMPRESSION: Nonobstructing bilateral renal calculi. Can Solderer: PSCKeke Transcribe Date/Time: Jun 15 2025 12:57P Dictated by : SRIDHAR ROSAS MD This examination was interpreted and the report reviewed and electronically signed by: SRIDHAR ROSAS MD on Jun 15 2025 1:02PM EST [facility] Radiology Study observation (narrative) [facility] CT Abdomen and Pelvis WO con trastOrdered By: Ccf Provider on 06-15-[address] [facility] [address] FLANK WO IVCONon 06-15-20 CT FLANK WO IVCON * * *Final Report* * * DATE OF EXAM: Jun 15 2025 12:46PM [facility] 0529 - CT FLANK WO IVCON / [...] additional findings. IMPRESSION: Nonobstructing bilateral renal calculi. Can Solderer: PSCB Transcribe Date/Time: Jun 15 2025 12:57P Dictated by : SRIDHAR ROSAS MD This examination was interpreted and the report reviewed and electronically signed by: SRIDHAR ROSAS MD on Jun 15 2025 1:02PM EST [id number] Normal [facility] BLADDER SCANon 06-07-2025 PVR = 0 ml [facility] Bacteria Ur Culton 5 Bacteria identified Cx Nom (U) CULTURE, URINE: No growth (<1,000 CFU/ml) Normal [facility] Comment on above: Performed By: #### 6 30-4 #### [facility] CLIA [id number] [address] [place] CNOVon 06-07-2025 CNOV Office Visit (UROLAE ) GRETA ANDRES ([id number]) 1990 F Date Time Provider Department 06/07/25 1:00 PM SARAH MIRAMONTES During your visit today, we recorded the following information about you: Pulse Blood pressure Height 88/minute 159/98 1.651 m Sarah Miramontes APRN.SHELF DRIER OPERATOR 06/07/2025 2:10 PM Signed [facility] [place] [facility] [place] UROL [place] EXCHANGE NEW PATIENT UROLOGY VISIT 06/07/2025 10:21 AM PATIENT NAME: Greta Andres DATE OF : 1990 TODAY'S DATE: 06/07/2025 Referring Provider: Nagi Burns [facility] [address] Referring Note Reviewed: Yes Chief Complaint: kidney stones, right flank pain History of Present Illness: Ms. Andres is a 35 year old female who presents to the office regarding kidney stones and right flank pain since February 2025. 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 No surgical correction done. The father of the baby's brother born with a hole in his heart. Surgical correction was done. 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[facility]) Degenerative disc disease Disorders of sacrum 02/20/2013 Dysmenorrhea 04/11/2007 Exercise-induced asthma ([facility]) 03/22/2014 Fetus conceived on control 03/31/2012 [...] given to (more content not included)... Normal [facility] Matilda 06-07-2025 [place] Telephone (MARISELA) GRETA ANDRES ([id number]) 1990 F Date Time Provider Department 06/07/25 SARAH MIRAMONTES During your visit today, we recorded the following information about you: Linnette Douglas MA 06/07/2025 2:05 PM Signed Received call from [facility] pharmacy - they unable to fill oral Ketorolac 10 mg. Toradol oral has to be prescribed as a continuation of care from IM or IV. Call back to [facility] pharmacy - [phone] KAUSHAL Naylor Donna, MA 06/07/2025 2:09 PM Signed Spoke with patient advised pharmacy unable to fill oral Toradol. She will continue Tylenol and Ibuprofen for pain management. KAUSHAL Naylor Alison, APRN.[facility] 06/07/2025 2:10 PM Signed Thank you. Domenica Baker MA 06/08/2025 10:[address] [facility] pharmacy called and stated that are canceling the medication Ketorolac, because it is not given in office via IV or IM, they daniel asking if another medication can be called into pharmacy. Please advise. KAUSHAL Novoa Alison, APRN.[facility] 06/08/2025 11:05 AM Signed Patient will take OTC Tylenol/ Motrin. Sarah Miramontes APRN.SHELF DRIER OPERATOR Allergies As of Date: 06/07/2025 Noted Allergy Reaction ADHESIVE 02/12/2010 2 - Rash MORPHINE SULFATE 11/12/2008 9 - Itching Comments: had vicodin at same time, but has taken vicodin in past without reaction ADDERALL (DEXTROAMPHETAMINE-AMPHE* 5 - Intolerance Comments: Heart racing, chest pain, diaphoretic, dizzy Date Reviewed: 06/07/2025 Reviewed by: Sarah Miramontes APRN.SHELF DRIER OPERATOR - Fully Assessed Reason for Visit: Medication [...] for screeni (more content not included)... Normal [facility] UA DIP, URINE (POC)on 2024 BILIRUBIN UA (POCT) Negative Negative [facility] CLARITY UA (POCT) Clear [facility] COLOR UA (POCT) Yellow [facility] GLUCOSE UA (POCT) Negative Negative mg/dL [facility] Hemoglobin Ql (U) Trace-intact Abnormal Negative [facility] Interpretation and review of laboratory results Abnormal [facility] KETONE UA (POCT) Negative Negative mg/dL [facility] LEUKOCYTES UA (POCT) Trace Abnormal Negative [facility] NITRITE UA (POCT) Negative Negative [facility] PH UA (POCT) 6 4.5 - 8.0 [facility] Protein Ql (U) Trace Abnormal Negative mg/dL [facility] SPECIFIC GRAVITY UA (POCT) 1.02 1.005 - 1.030 [facility] UROBILINOGEN UA (POCT) 0.2 Normal E.U./dL [facility], [address] [place] [address], [address] [place] [address] POINT OF CARE [facility] Urinalysis complete panel (U )on 06-07-2025 Bilirubin Ql (U) Negative Negative [facility] Calcium Oxalate Crystals Few Abnormal None Seen /HPF [facility] [facility] Clarity (Unsp spec) Clear Clear [facility] Color (U) Yellow yellow [facility] Epithelial cells LM.HPF (Urine sed) [#/Area] Few Abnormal None Seen /HPF [facility] Glucose Test strip (U) [Mass/Vol] Negative Trace, Negative [facility] Hemoglobin Ql (U) Negative Negative, Trace [facility] Interpretation and review of laboratory results Abnormal [facility] Ketones Ql (U) Negative Negative, Trace [facility] Leukocyte esterase Test strip Ql (U) 25 Ari/uL Negative, 25 Ari/uL [facility] Nitrite Ql (U) Negative Negative [facility] pH (U) 6 [pH] 5.0 - 8.0 [facility] Protein (U) [Mass/Vol] Trace Trace, Negative [facility] RBC LM.HPF (Urine sed) [#/Area] 3-5 /HPF Abnormal 0-3 /HPF [facility] Specific gravity (U) [Rel density] 1.023 1.005 - 1.030 [facility] Urobilinogen Ql (U) Normal Normal [facility] WBC LM.HPF (Urine sed) [#/Area] 0-5 /HPF 0-5 /HPF [facility] Bilirubin Ql (U) Negative Normal Negative [facility] Comment on above: Order Comment: Speci men Type: URINE SPECIMEN Ordering Facility: [facility] Address: [address] [place] [address] Performed By: #### 2 4356-8 #### [facility] CLIA [id number] [address] OF [facility] CALCIUM OXALATE CRYSTALS (UA) Few Abnormal None Seen [facility] Comment on above: Order Comment: Speci men Type: URINE SPECIMEN Ordering Facility: [facility] Address: [address] [place] [address] Performed By: #### 2 4356-8 #### [facility] CLIA [id number] [address] OF [place] Clarity (Unsp spec) Clear Normal Clear [facility] Comment on above: Order Comment: Speci men Type: URINE SPECIMEN Ordering Facility: [facility] Address: [address] [place] [address] Performed By: #### 2 4356-8 #### [facility] CLIA [id number] [address] [facility] Color (U) Yellow Normal yellow [facility] Comment on above: Order Comment: Speci men Type: URINE SPECIMEN Ordering Facility: [facility] Address: [address] [place] [address] Performed By: #### 2 4356-8 #### [facility] CLIA [id number] [address] OF [place] Epithelial cells LM.HPF (Urine sed) [#/Area] Few Normal [facility] Comment on above: Order Comment: Speci men Type: URINE SPECIMEN Ordering Facility: [facility] Address: [address] [place] [address] Result Comment: Few Performed By: #### 2 4356-8 #### [facility] CLIA [id number] [address] Glucose Test strip (U) [Mass/Vol] Negative Normal Trace, Negative [facility] Comment on above: Order Comment: Speci men Type: URINE SPECIMEN Ordering Facility: [facility] Address: [address] [place] [address] Performed By: #### 2 4356-8 #### [facility] CLIA [id number] [address] Hemoglobin Ql (U) Negative Normal Negative, Trace [facility] Comment on above: Order Comment: Speci men Type: URINE SPECIMEN Ordering Facility: [facility] Address: [address] [place] [address] Performed By: #### 2 4356-8 #### [facility] CLIA [id number] [address] Ketones Ql (U) Negative Normal Negative, Trace [facility] Comment on above: Order Comment: Speci men Type: URINE SPECIMEN Ordering Facility: [facility] Address: [address] [place] [address] Performed By: #### 2 4356-8 #### [facility] CLIA [id number] [address] Leukocyte esterase Test strip Ql (U) 25 Ari/uL Normal Negative, 25 Ari/uL [facility] Comment on above: Order Comment: Speci men Type: URINE SPECIMEN Ordering Facility: [facility] Address: [address] [place] [address] Performed By: #### 2 4356-8 #### [facility] CLIA [id number] [address] OF [place] Nitrite Ql (U) Negative Normal Negative [facility] Comment on above: Order Comment: Speci men Type: URINE SPECIMEN Ordering Facility: [facility] Address: [address] [place] [address] Performed By: #### 2 4356-8 #### [facility] CLIA [id number] [address] [place] [address] pH (U) 6.0 [pH] Normal 5.0-8.0 [facility] Comment on above: Order Comment: Speci men Type: URINE SPECIMEN Ordering Facility: [facility] Address: [address] [place] [address] Performed By: #### 2 4356-8 #### [facility] CLIA [id number] [address] Protein (U) [Mass/Vol] Trace Normal Trace, Negative [facility] Comment on above: Order Comment: Speci men Type: URINE SPECIMEN Ordering Facility: [facility] Address: [address] [place] [address] Performed By: #### 2 4356-8 #### [facility] CLIA [id number] [address] RBC LM.HPF (Urine sed) [#/Area] 3-5 /HPF Abnormal 0-3 /HPF [facility] Comment on above: Order Comment: Speci men Type: URINE SPECIMEN Ordering Facility: [facility] Address: [address] [place] [address] Performed By: #### 2 4356-8 #### [facility] CLIA [id number] [address] Specific gravity (U) [Rel density] 1.023 Normal 1.005-1.030 [facility] Comment on above: Order Comment: Speci men Type: URINE SPECIMEN Ordering Facility: [facility] Address: [address] [place] [address] Performed By: #### 2 4356-8 #### [facility] CLIA [id number] [address] Urobilinogen Ql (U) Normal Normal Normal [facility] Comment on above: Order Comment: Speci men Type: URINE SPECIMEN Ordering Facility: [facility] Address: [address] [place] [address] Performed By: #### 2 4356-8 #### [facility] CLIA [id number] [address] [place] WBC LM.HPF (Urine sed) [#/Area] 0-5 /HPF Normal 0-5 /HPF [facility] Comment on above: Order Comment: Speci men Type: URINE SPECIMEN Ordering Facility: [facility] Address: [address] [place] [address] Performed By: #### 2 4356-8 #### [facility] CLIA [id number] 1 [place] [id number] [place] Orthopedic Visit Reporton Orthopedic Visit Report [facility] [address] [place] [address] [address] [place] [address] OFFICE VISIT Date of Service: 05/21/25 MR#: [id number] Acct: [id number] Name: GRETA ANDRES Rep #: [id number] : 1990 Provider: Dr. Thaddeus roman MD Age/Sex: 35/F Location[place] [email or web address] Status: Signed Intake Vital Signs 04/17/25 15:02 [...] 1 - 2 puff inhalation Q4H PRN ME N 11/06/19 05/21/25 History aerosol inhaler Sob [...] tabs promethazine 25 mg rectal 25 mg ME Q6H PRN nausea and 05/21/25 Rx suppository [...] by me, Dr. Thaddeus Moya MD 05/21/25 0753. Part of today???s visit was documented by [...] driving. 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 Has not tried any treatments no past [...] Tunnel Syndr (more content not included)... Normal [facility] US KIDNEY/BLADDERon 05-21-20 US KIDNEY/BLADDER * * *Final Report* * * DATE OF EXAM: May 21 2025 10:21AM [facility] 1055 - US KIDNEY/BLADDER / PROCEDURE [...] IMPRESSION: Bilateral nephrolithiasis. No hydronephrosis. Hepatic steatosis. Can Solderer: PSCB Transcribe Date/Time: May 23 2025 4:50A Dictated by : DUC JONES MD This examination was interpreted and the report reviewed and electronically signed by: DUC JONES MD on May 23 2025 4:53AM EST [id number] Normal [facility] 05-17-2025 [facility] Telephone ([facility]) GRETA ANDRES ([id number]) 1990 F Date Time Provider Department 05/17/25 NAGI RED [facility] During your visit today, we recorded [...] Ok to send pt a msg via MC or can call pt. Pt uses [employer]. 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 Darline Roldan RN 05/18/2025 8:48 AM Signed Called and left [...] [R10.9] RUQ pain [R10.11] Renal stones [N20.0] Order(s): KIDNEY/BLADDER [0733820] Order #: [id number] FUTURE Prescriptions as of 05/18/2025 - SUMAtriptan [...] your d (more content not included)... [facility] GRETA AND[facility] ([id number]) 1990 F Date Time Provider Department 05/14/25 NAGI RED During your visit today, we recorded the following information about you: Chloé BradyhSTAN 05/14/2025 12:48 PM Signed Patient calling she did not know she had appt today until she just got a my chart message of the appt. Patient said she did not think she needed to come in, she had appt last week with PCP on 05/08. Phil Millan MA 05/15/2025 9:32 AM Signed Pt was sent a [employer] message notifying her that PCP notified MA [...] examination [Z01.41*04/25/2024 (more content not included)... Normal [facility] CNPNon 05-09-2025 [facility] Telephone ([facility]) GRETA ANDRES ([id number]) 1990 F Date Time Provider Department 05/09/25 JACE WALLIS During your visit today, we [...] AM Signed Pt has been sent a [employer] message notifying her that she needs a BP follow up from 05/08/25 with AKIKO. Will wait pt response via [employer]. Will keep this encounter open until appt is made. Watch [employer] message to make sure viewed by pt. [...] Gastroparesis [K31.84] (more content not included)... Normal [facility] CNOVon 05-08-2025 CNOV Office Visit ([facility]AMPWS ) GRETA ANDRES ([id number]) 1990 F Date Time Provider Department 05/08/25 8:40 AM NAGI RED During your visit today, [...] improvement to 34.7. 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 No surgical correction done. The father of the baby's brother born with a hole in his heart. Surgical correction was done. 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[facility]) Degenerative disc disease Disorders of sacrum [...] 03/31/2012 03/31/2012Patient (more content not included)... Normal [facility] UA DIP, URINE (POC)on 2024 BILIRUBIN UA (POCT) Negative Negative [facility] CLARITY UA (POCT) Clear [facility] COLOR UA (POCT) Yellow [facility] GLUCOSE UA (POCT) Negative Negative mg/dL [facility] Hemoglobin Ql (U) Negative Negative [facility] Interpretation and review of laboratory results Abnormal [facility] KETONE UA (POCT) Negative Negative mg/dL [facility] LEUKOCYTES UA (POCT) Negative Negative [facility] NITRITE UA (POCT) Negative Negative [facility] PH UA (POCT) 6.5 4.5 - 8.0 [facility] Protein Ql (U) 100 mg/dL Abnormal Negative [facility] SPECIFIC GRAVITY UA (POCT) 1.025 1.005 - 1.030 [facility] UROBILINOGEN UA (POCT) 0.2 Normal E.U./dL [facility] Location:[address], [address] [place] [address] POINT OF CARE [facility] T4 Free SerPl-mCncon 025 Free T4 [Mass/Vol] 1.2 ng/dL Normal 0.9-1.7 [facility] Comment on above: Order Comment: Speci men Type: BLOOD SPECIMENOrdering Facility: [facility] Address: [address] [place] [address] Performed By: #### 3 024-7, 3016-3 ####[facility] [id number] [place] [address] [place] TSH SerPl-aCncon 05-02-2025 TSH Qn 34.700 m[IU]/L High 0.270-4.200 [facility] Comment on above: Order Comment: Speci men Type: BLOOD SPECIMENOrdering Facility: [facility] Address: [address] [place] [address] Result Comment: If t he patient is , TSH reference range varies by gestational period: First Trimester (weeks 9-12): 0.180-2.990 mIU/L Second Trimester: 0.110-3.980 mIU/L Third Trimester: 0.480-4.710 mIU/L Juanjo Broussard et al. A Practical Approach for the Verifications and Determination of Site- and Trimester-Specific Reference Intervals for Thyroid Function tests in . Thyroid, 2019:29:3:412-420. Shilo Long, et al. 2017 Guidelines of the [place] Thyroid Association for the Diagnosis and Management of Thyroid Disease during and the . Thyroid, 2017:27:3:315-389. Performed By: #### 3 024-7, 3016-3 ####[facility] [id number] [place] [address] [place] XR CHEST 2V [...] tissues: Unremarkable. IMPRESSION: No acute radiographic abnormality. Can Solderer: EITAN Transcribe Date/Time: May 02 2025 3:19P Dictated by : SRIDHAR ROSAS MD This examination was interpreted and the report reviewed and electronically signed by: SRIDHAR ROSAS MD on May 02 2025 3:20PM EST [id number] Normal [facility] XR Chest PA and Lateralon IMPRESSION: No acute radiographic abnormality. Can Solderer: EITAN Transcribe Date/Time: May 02 2025 3:19P Dictated by : SRIDHAR ROSAS MD This examination was interpreted and the report reviewed and electronically signed by: SRIDHAR ROSAS MD on May 02 2025 3:20PM [facility] DIVISION OF RADIOLOGY * * *Final Report* [...] soft tissues: Unremarkable. DIVISION OF RADIOLOGY Provider, [facility] - 05/02/2025 * * *Final Report* * [...] Unremarkable. IMPRESSION IMPRESSION: No acute radiographic abnormality. Can Solderer: EITAN Transcribe Date/Time: May 02 2025 3:19P Dictated by : SRIDHAR ROSAS MD This examination was interpreted and the report reviewed and electronically signed by: SRIDHAR ROSAS MD on May 02 2025 3:20PM [facility] Radiology Study observation (narrative) [facility] XR Chest PA and LateralOrder ed By: [facility] Provider on 05-02-2025 [facility] Matilda 04-26-2025 CNPN Telephone (FAMPWS) GRETA ANDRES ([id number]) 1990 F Date Time Provider Department 04/26/25 NAGI RED During your visit today, we recorded the following information about you: Isabel Wiley RN 04/26/2025 4:26 PM Signed Patient calls and states that Dr. Sheriff's office had a MRCP test done. Patient reports that it came back as Bilateral Pleural Effusion. Patient states that Dr. Coel's office wants PCP to advise on this. Testing was done on Wednesday. Results came back today. Nagi Red MD 04/26/2025 5:01 PM Signed Can we see if we can pull the MRCP report off [facility] system? 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 Normal [facility] MRCP Abdomen without Contras ton 04-24-2025 MRCP Abdomen without Contrast [facility] [address] [place] [address] MRCP Abdomen without Contrast MR#: [id number] Acct: [id number] Name: GRETA ANDRES Rep #: [id number] : 1990 F 35 From: Louie Godoy MD PCP: Dr. Nagi Red MD Status: DEP CLI Study: MRCP Abdomen without Contrast Date of Exam: Exam# [id number] Ordering Dr: Taylor Samuel ADDENDUM by Dr. Louie Godoy MD on 05/14/25 at 1837 3D post processing was performed and reviewed. Reading Location: [facility] 05/14/251836 Date cc: Dr. Nagi Red MD; [...] Findings: Lung bases: Trace bilateral pleural effusions, xptru-tkcevur-jwae-left.. Spleen: Unremarkable. Adrenals: Unremarkable. Kidneys and ureters: [...] laboratory analysis. 2. Trace bilateral pleural effusions, lcbvu-phuqhrh-qcvc-left. Reading Location: [facility] CC: Dr. Nagi Red MD; JERI Marquez Can Solderer: Signed Normal [facility] Abdomen/Pelvis W IV Cont ONL Yon 04-17-2025 Abdomen/Pelvis W IV Cont ONLY [facility] [address] [place], [place] [address] Abdomen/Pelvis W IV Cont ONLY MR#: [id number] Acct: [id number] Name: GRETA ANDRES Rep #: [id number] : 1990 F 35 From: Damaris Hernandez DO PCP: Dr. Nagi Red MD Status: REG ER Study: Abdomen/Pelvis W IV Cont ONLY Date of Exam: Exam# [id number] Ordering Dr: Ludin Adams DO PROCEDURE: ABDOMEN/PELVIS [...] lower chance of developing HCC. Reading Location: [facility] CC: Dr. Nagi Red MD; Dr. Ludin Adams DO Can Solderer: Signed Normal [facility] CBC W/Diff, Automatedon 03-23 Absolute Lymph 1.57 X10 3/uL Normal 0.83-4.51 [facility] Comment on above: Performed By: #### L 501.2450, L700.6800 #### [facility] [address] [place], [address] Absolute Neut 8.8 X10 3/uL High 2.0-7.7 [facility] Comment on above: Performed By: #### L 501.2450, L700.6800 #### [facility] [address] [place], [address] Basophils/100 WBC (Bld) 0.3 % Normal 0-1 [facility] Comment on above: Performed By: #### L 501.2450, L700.6800 #### [facility] [address] [place], [address] Eosinophils/100 WBC (Bld) 0.8 % Normal 0-5 [facility] Comment on above: Performed By: #### L 501.2450, L700.6800 #### [facility] [address] [place], [address] Erythrocyte distribution width (RBC) [Ratio] 14.2 % Normal 11.6-14.6 [facility] Comment on above: Performed By: #### L 501.2450, L700.6800 #### [facility] [address] [place], [address] Hematocrit (Bld) [Volume fraction] 44.0 % Normal 37-47 [facility] Comment on above: Performed By: #### L 501.2450, L700.6800 #### [facility] [address] [place], [address] Hemoglobin (Bld) [Mass/Vol] 15.2 g/dL High 12.0-15.0 [facility] Comment on above: Performed By: #### L 501.2450, L700.6800 #### [facility] [address] [place], [address] IG% 0.800 Normal 0.0-0.9 [facility] Comment on above: Result Comment: IG% - Immature Granulocytes (promyelocytes, myelocytes and metamyelocytes) > 1% indicates that a LEFT SHIFT is Present. Performed By: #### L 501.2450, L700.6800 #### [facility] [address] [place], [address] Lymphocytes/100 WBC (Bld) 14.1 % Low 19-41 [facility] Comment on above: Performed By: #### L 501.2450, L700.6800 #### [facility] [address] [place], [address] MCH (RBC) [Entitic mass] 28.2 pg Normal 27.0-32.0 [facility] Comment on above: Performed By: #### L 501.2450, L700.6800 #### [facility] [address] [place], [address] MCHC (RBC) [Mass/Vol] 34.5 g/dL Normal 32-36 [facility] Comment on above: Performed By: #### L 501.2450, L700.6800 #### [facility] [address] [place], [address] MCV (RBC) [Entitic vol] 81.6 fL Normal 81-99 [facility] Comment on above: Performed By: #### L 501.2450, L700.6800 #### [facility] [address] [place], [address] Monocytes/100 WBC (Bld) 5.0 % Normal 0-10 [facility] Comment on above: Performed By: #### L 501.2450, L700.6800 #### [facility] [address] [place], [address] Neutrophils/100 WBC (Bld) 79.0 % High 47-70 [facility] Comment on above: Performed By: #### L 501.2450, L700.6800 #### [facility] [address] [place], [address] Nucleated RBC (Bld) [#/Vol] 0 10*3/uL Normal 0-5 [facility] Comment on above: Performed By: #### L 501.2450, L700.6800 #### [facility] [address] [place], [address] Platelet mean volume (Bld) [Entitic vol] 9.9 fL Normal 6.2-12.0 [facility] Comment on above: Performed By: #### L 501.2450, L700.6800 #### [facility] [address] [place], [address] Platelets (Bld) [#/Vol] 246 10*3/uL Normal 150-450 [facility] Comment on above: Performed By: #### L 501.2450, L700.6800 #### [facility] [address] [place], [address] RBC (Bld) [#/Vol] 5.39 10*6/uL Normal 4.2-5.4 [facility] Comment on above: Performed By: #### L 501.2450, L700.6800 #### [facility] [address] [place], [address] RDW SD 41.6 fl Normal 35.1-43.9 [facility] Comment on above: Performed By: #### L 501.2450, L700.6800 #### [facility] [address] [place], [address] WBC (Bld) [#/Vol] 11.1 10*3/uL High 4.4-11.0 [facility] Comment on above: Performed By: #### L 501.2450, L700.6800 #### [facility] [address] [place], [address] Comprehensive Metabolic Prof [facility] 04-17-2025 Albumin [Mass/Vol] 4.6 g/dL Normal 3.5-5.0 [facility] Comment on above: Performed By: #### L 101.9900, L500.4050, L501.6710, L100.0100 #### [facility] [address] [place], [address] Albumin/Globulin [Mass ratio] 1.3 {ratio} Normal 0.9-2.4 [facility] Comment on above: Performed By: #### L 101.9900, L500.4050, L501.6710, L100.0100 #### [facility] [address] [place], [address] ALK PHOS 90 U/L Normal 35-104 [facility] Comment on above: Performed By: #### L 101.9900, L500.4050, L501.6710, L100.0100 #### [facility] [address] [place], [address] ALT [Catalytic activity/Vol] 20 U/L Normal <=34 [facility] Comment on above: Performed By: #### L 101.9900, L500.4050, L501.6710, L100.0100 #### [facility] [address] [place], [address] AST [Catalytic activity/Vol] 29 U/L Normal <=31 [facility] Comment on above: Result Comment: Hemo lysis present, Results??could be affected. ?? Performed By: #### L 101.9900, L500.4050, L501.6710, L100.0100 #### [facility] [address] [place], [address] Bilirubin [Mass/Vol] 0.75 mg/dL Normal 0.00-1.30 [facility] Comment on above: Performed By: #### L 101.9900, L500.4050, L501.6710, L100.0100 #### [facility] [address] [place], [address] BUN/CRE 11.4 RATIO Normal 10-20 [facility] Comment on above: Performed By: #### L 101.9900, L500.4050, L501.6710, L100.0100 #### [facility] [address] [place], [address] Calcium [Mass/Vol] 8.6 mg/dL Normal 7.6-11.0 [facility] Comment on above: Performed By: #### L 101.9900, L500.4050, L501.6710, L100.0100 #### [facility] [address] [place], [address] Chloride [Moles/Vol] 102 mmol/L Normal 98-108 [facility] Comment on above: Performed By: #### L 101.9900, L500.4050, L501.6710, L100.0100 #### [facility] [address] [place], [address] CO2 [Moles/Vol] 23.4 mmol/L Normal 21.0-32.0 [facility] Comment on above: Performed By: #### L 101.9900, L500.4050, L501.6710, L100.0100 #### [facility] [address] [place], [address] Creatinine [Mass/Vol] 0.88 mg/dL Normal 0.70-1.20 [facility] Comment on above: Performed By: #### L 101.9900, L500.4050, L501.6710, L100.0100 #### [facility] [address] [place], [address] ECRCL 98.58 ml/min Normal 50-250 [facility] Comment on above: Performed By: #### L 101.9900, L500.4050, L501.6710, L100.0100 #### [facility] [address] [place], [address] GAP 14 Normal 5-15 [facility] Comment on above: Performed By: #### L 101.9900, L500.4050, L501.6710, L100.0100 #### [facility] [address] [place], [address] GFR/1.73 sq M.predicted among non-blacks MDRD (S/P/Bld) [Vol rate/Area] 88 mL/min/{1.73_m2} Normal >60 [facility] Comment on above: Result Comment: mL/m in/1.73m2 CKD-EPI Creatinine Equation (2020) Performed By: #### L 101.9900, L500.4050, L501.6710, L100.0100 #### [facility] [address] [place], [address] Globulin (S) [Mass/Vol] 3.5 g/dL Normal 2.2-4.2 [facility] Comment on above: Performed By: #### L 101.9900, L500.4050, L501.6710, L100.0100 #### [facility] [address] [place], [address] Glucose [Mass/Vol] 85 mg/dL Normal 70-99 [facility] Comment on above: Performed By: #### L 101.9900, L500.4050, L501.6710, L100.0100 #### [facility] [address] [place], [address] Potassium [Moles/Vol] 3.5 mmol/L Normal 3.3-5.1 [facility] Comment on above: Result Comment: Hemo lysis present, Results??could be affected. ?? Performed By: #### L 101.9900, L500.4050, L501.6710, L100.0100 #### [facility] [address] [place], [address] Sodium [Moles/Vol] 139 mmol/L Normal 133-145 [facility] Comment on above: Performed By: #### L 101.9900, L500.4050, L501.6710, L100.0100 #### [facility] [address] [place], [address] T PROT 8.0 g/dL Normal 5.9-8.4 [facility] Comment on above: Performed By: #### L 101.9900, L500.4050, L501.6710, L100.0100 #### [facility] [address] [place], [address] Urea nitrogen [Mass/Vol] 10 mg/dL Normal 4-19 [facility] Comment on above: Performed By: #### L 101.9900, L500.4050, L501.6710, L100.0100 #### [facility] [address] [place], [address] Emergency Department Summary on 04-17-2025 Emergency Department Summary [facility] Medical Records Department [address] [place] [address] Emergency Department Summary 04/17/25 MR#: [id number] Acct: [id number] Name: GRETA ANDRES Rep #: [id number] : 1990 35 From: Ludin Adams DO [...] further evaluation management. Denies any recent contacts [facility] Medical History Kidney stone Cancer Anemia [...] 1 - 2 puff inhalation Q4H PRN ME N 11/06/19 Unknown History aerosol inhaler Sob [...] tabs promethazine 25 mg rectal 25 mg ME Q6H PRN nausea and Unknown Rx suppository [...] Exam Na (more content not included)... Normal [facility] Lipaseon 04-17-2025 Lipase [Catalytic activity/Vol] 43 U/L Normal 13-75 [facility] Comment on above: Result Comment: Ozzie arrington note: LIPASE revised reference range effective 23. New Lipase methodology. Expected to produce lower values than the previous assay method. NEW Reference Range: 13 - 75 U/L Performed By: #### L 501.2450, L700.6800 #### [facility] [address] [place], [place], [id number] ,Serum,hCG Quali.on 04-17-2025 HCG, SERUM QUAL Negative Normal [facility] Comment on above: Performed By: #### L 501.2450, L700.6800 #### [facility] [address] [place], [place], [id number] HCG, SERUM QUAL Normal [facility] Comment on above: Result Comment: Sahil sawant via OM: Ordered Performed By: #### L 501.2450, L700.6800 #### [facility] [address] [place], [address] INTERNAL QC OK? Normal [facility] Comment on above: Result Comment: Sahil sawant via OM: MD Ordered Performed By: #### L 501.2450, L700.6800 #### [facility] [address] [place], [address] RECORD KIT LOT# Normal [facility] Comment on above: Result Comment: Sahil sawant via OM: Ordered Performed By: #### L 501.2450, L700.6800 #### [facility] [address] [place], [address] Urinalysis, Completeon 04-17 EPI,SQUAMOUS 5-10 SEEN Normal 5-10 [facility] Comment on above: Order Comment: CLEAN CATCH Performed By: #### L 101.9900, L500.4050, L501.6710, L100.0100 #### [facility] [address] [place], [address] RBC 0-5 SEEN Normal 0-5 [facility] Comment on above: Order Comment: CLEAN CATCH Performed By: #### L 101.9900, L500.4050, L501.6710, L100.0100 #### [facility] [address] [place], [address] WBC 5-10 SEEN Normal 0-5 [facility] Comment on above: Order Comment: CLEAN CATCH Performed By: #### L 101.9900, L500.4050, L501.6710, L100.0100 #### [facility] [address] [place], [address] BACTERIA 0 SEEN Normal None Seen [facility] Comment on above: Order Comment: CLEAN CATCH Performed By: #### L 101.9900, L500.4050, L501.6710, L100.0100 #### [facility] [address] [place], [address] Mucus Ql (Urine sed) 0 SEEN Normal [facility] Comment on above: Order Comment: CLEAN CATCH Performed By: #### L 101.9900, L500.4050, L501.6710, L100.0100 #### [facility] [address] [place], [address] CNPSara 04-13-2025 MARGARITAN Telephone (PNMDNA) GRETA ANDRES ([id number]) 1990 F Date Time Provider Department 04/13/25 CARLIE BROWNLEE PNOHYULY During your visit today, we recorded the following information about you: Lisa Edmond 04/13/2025 2:43 PM Signed Huy with [facility] called to report Patient has been prescribed Lorazepam by another provider. Pharmacy wants to check if Carlie Brownlee CNP is agreeable to Patient taking Tramadol along with Lorazepam? Please advise and call [facility] at [phone] with recommendations. Carlie Powell, CUSTOMER SUPPORT ANALYST.SHELF DRIER OPERATOR 04/13/2025 3:11 PM Signed I am okay [...] Status:Closed by CARLIE BAUTISTA on 04/13/25 Normal [facility] Gastroenterology Visit Repor gallo 04-10-2025 Gastroenterology Visit Report [facility] [address] [place] [address] OFFICE VISIT Date of Service: 04/10/25 MR#: [id number] Acct: [id number] Name: GRETA ANDRES Rep #: [id number] : 1990 Provider: JERI Marquez Age/Sex: 35/F Location[place] [facility] Status: Signed Intake Vital Signs 03/19/25 10:23 [...] if its from stones seen in imaging. [facility] Medical History Kidney stone Cancer Anemia Migraine [...] presents to the office today for f/u. I established in 2022 with chronic vomiting. Family [...] Biopsys all with no pathologic change OV 2 PT continues with n/v. Scopolamine patch and promethazine has been helpful. worse symptoms when eating meat. Unable to be on Reglan due to interactions with psych medications she is on. Biochemical work up 3..25; WBC H, CRP H 10.4, LFTs wnl, ESR wnl 4 hour GES; normal [facility] ED 4..25 with right sided flank pain CT abd/pelvi1. [...] and leg (more content not included)... Normal [facility] Abdomen Single Viewon 2024 Abdomen Single View [facility] Imaging Services [address] [place] [address] Abdomen Single View MR#: [id number] Acct: [id number] Name: GRETA ANDRES Rep #: [id number] : 1990 F 35 From: Louie Godoy MD PCP: Dr. Nagi Red MD Status: REG CLI Study: Abdomen Single View Date of Exam: 04/09/25 Exam# [id number] Ordering Dr: Kate Gonzáles MD PROCEDURE: ABDOMEN [...] pathologic calcification identified by radiographs. Reading Location: [id number] CC: Dr. Kate Gonzáles MD; Dr. Nagi Red MD Can Solderer: Signed [facility] HISTORY PHYSICALon HISTORY PHYSICAL HNO ID: [id number] Author: JUAN DANIEL CONTRERAS MD Service: Pain [...] 08/07/2013 Bipolar 1 disorder (HCC) 02/14/2018 Seeing [facility] Behavioral Medicine as of 01/2018 Bipolar [...] conjunction with observation. (more content not included)... [facility] OPERATIVE NOon 04-03-2025 OPERATIVE NO HNO ID: [id number] Author: JUAN DANIEL CONTRERAS MD Service: Pain Management Author Type: Physician Type: Operative Report Filed: 04/03/2025 10:16 Note Text: PATIENT NAME: Greta Andres SERVICE DATE: 04/03/2025 Preoperative Diagnosis: Right SI joint dysfunction Right SI joint pain Postoperative Diagnosis: Same Hearings Reporter(s): None, I performed the entire procedure. ANESTHESIA: [...] RF ablation of the SI joint per [employer]. PROCEDURE: Right SI joint BIPOLAR RADIOFREQUENCY [...] DATE: April 03, 2025 TIME: 10:15 AM [facility] Gastric Emptying Study - 4 H Gamaliel 03-22-2025 Gastric Emptying Study - 4 HR [facility] Imaging Services [address] [place] [address] Gastric Emptying Study - 4 HR MR#: [id number] Acct: [id number] Name: GRETA ANDRES Rep #: [id number] : 1990 F 35 From: Robert Rey PCP: Dr. Nagi Red MD Status: REG CLI Study: Gastric Emptying Study - 4 HR Date of Exam: Exam# [id number] Ordering Dr: Taylor Samuel PROCEDURE: GASTRIC EMPTYING [...] geometric mean was used to calculate a mmjx-hccmyqns-pxgnj. Medications taken in the past 24 hours [...] in solid phase gastric emptying. Reading Location: [place] [address] CC: Dr. Nagi Red MD; JERI Marquez Can Solderer: Signed Normal [facility] Abdomen/Pelvis W IV Cont ONL Yon 03-19-2025 Abdomen/Pelvis W IV Cont ONLY [facility] Imaging Services [address] [place], [place] [address] Abdomen/Pelvis W IV Cont ONLY MR#: [id number] Acct: [id number] Name: GRETA ANDRES Rep #: [id number] : 1990 F 35 From: Zackary Navarrete MD PCP: Dr. Nagi Red MD Status: REG ER Study: Abdomen/Pelvis W IV Cont ONLY Date of Exam: Exam# [id number] Ordering Dr: Ester Blas PROCEDURE: ABDOMEN/PELVIS W [...] 3. Additional description as above. Reading Location: [id number] CC: Dr. Nagi Red MD; JERI Singleton Can Solderer: Signed Normal [facility] CBC W/Diff, Automatedon 04-2 Absolute Lymph 2.58 X10 3/uL Normal 0.83-4.51 [facility] Comment on above: Performed By: #### L 501.2450, L700.6800 #### [facility] [address] [place], [address] Absolute Neut 6.5 X10 3/uL Normal 2.0-7.7 [facility] Comment on above: Performed By: #### L 501.2450, L700.6800 #### [facility] [address] [place], [address] Basophils/100 WBC (Bld) 0.3 % Normal 0-1 [facility] Comment on above: Performed By: #### L 501.2450, L700.6800 #### [facility] [address] [place], [address] Eosinophils/100 WBC (Bld) 3.3 % Normal 0-5 [facility] Comment on above: Performed By: #### L 501.2450, L700.6800 #### [facility] [address] [place], [address] Erythrocyte distribution width (RBC) [Ratio] 13.4 % Normal 11.6-14.6 [facility] Comment on above: Performed By: #### L 501.2450, L700.6800 #### [facility] [address] [place], [address] Hematocrit (Bld) [Volume fraction] 41.4 % Normal 37-47 [facility] Comment on above: Performed By: #### L 501.2450, L700.6800 #### [facility] [address] [place], [address] Hemoglobin (Bld) [Mass/Vol] 14.4 g/dL Normal 12.0-15.0 [facility] Comment on above: Performed By: #### L 501.2450, L700.6800 #### [facility] [address] [place], [address] IG% 0.600 Normal 0.0-0.9 [facility] Comment on above: Result Comment: IG% - Immature Granulocytes (promyelocytes, myelocytes and metamyelocytes) > 1% indicates that a LEFT SHIFT is Present. Performed By: #### L 501.2450, L700.6800 #### [facility] [address] [place], [address] Lymphocytes/100 WBC (Bld) 26.3 % Normal 19-41 [facility] Comment on above: Performed By: #### L 501.2450, L700.6800 #### [facility] [address] [place], [address] MCH (RBC) [Entitic mass] 28.1 pg Normal 27.0-32.0 [facility] Comment on above: Performed By: #### L 501.2450, L700.6800 #### [facility] [address] [place], [address] MCHC (RBC) [Mass/Vol] 34.8 g/dL Normal 32-36 [facility] Comment on above: Performed By: #### L 501.2450, L700.6800 #### [facility] [address] [place], [address] MCV (RBC) [Entitic vol] 80.7 fL Low 81-99 [facility] Comment on above: Performed By: #### L 501.2450, L700.6800 #### [facility] [address] [place], [address] Monocytes/100 WBC (Bld) 3.8 % Normal 0-10 [facility] Comment on above: Performed By: #### L 501.2450, L700.6800 #### [facility] [address] [place], [address] Neutrophils/100 WBC (Bld) 65.7 % Normal 47-70 [facility] Comment on above: Performed By: #### L 501.2450, L700.6800 #### [facility] [address] [place], [address] Nucleated RBC (Bld) [#/Vol] 0 10*3/uL Normal 0-5 [facility] Comment on above: Performed By: #### L 501.2450, L700.6800 #### [facility] [address] [place], [address] Platelet mean volume (Bld) [Entitic vol] 10.0 fL Normal 6.2-12.0 [facility] Comment on above: Performed By: #### L 501.2450, L700.6800 #### [facility] [address] [place], [address] Platelets (Bld) [#/Vol] 252 10*3/uL Normal 150-450 [facility] Comment on above: Performed By: #### L 501.2450, L700.6800 #### [facility] [address] [place], [address] RBC (Bld) [#/Vol] 5.13 10*6/uL Normal 4.2-5.4 [facility] Comment on above: Performed By: #### L 501.2450, L700.6800 #### [facility] [address] [place], [address] RDW SD 39.2 fl Normal 35.1-43.9 [facility] Comment on above: Performed By: #### L 501.2450, L700.6800 #### [facility] [address] [place], [address] WBC (Bld) [#/Vol] 9.8 10*3/uL Normal 4.4-11.0 [facility] Comment on above: Performed By: #### L 501.2450, L700.6800 #### [facility] [address] [place], [address] CNPNon 03-19-2025 CNPN Telephone (PNMDNA) GRETA ANDRES ([id number]) 1990 F Date Time Provider Department 03/19/25 CARLIE BROWNLEE PNMDNA During your visit today, we recorded the following information about you: Roselia Verdin 03/19/2025 1:45 PM Signed Patient was seen at [facility] for kidney stones today. Patient was given an RX for pain medication and questions if she can shredder picker or if picking up a pain medication from a different doctor is in breach of her contact with Dr. Contreras. Call [phone]. Patient is requesting a return call as soon as possible, she is experiencing significant pain from stones. Roseline Pierson MA 03/19/2025 1:55 PM Signed Patient receives Tramadol 50 mg tablet: take 1-2 pill PO every day for pain. Called and spoke with the patient and she states they prescribed her hydrocodone-acetaminophen 5-325 #8 pills. Routing to provider for review. Carlie Brownlee APRN.MARGARITA 03/19/2025 1:57 PM Signed Hold the tramadol while taking the Homer. I am okay with this Roseline Pierson MA 03/19/2025 1:59 PM Signed Called [...] Date Reviewed: 01/05/2025 Reviewed by: Tomas Alexis APRN.SHELF DRIER OPERATOR - Fully Assessed Reason for Visit: Medication Question [6458] Prescriptions as of 03/19/2025 - traMADol (ULTRAM) [...] by mouth two times a day. - Vrrnd-6-HCT-EPA-Fish Oil (FISH OIL) 1,000 (120-180) mg cap [...] 03/03/2023 O (more content not included)... Normal [facility] Metabolic Prof miranda 03-19-2025 Albumin [Mass/Vol] 4.2 g/dL Normal 3.5-5.0 [facility] Comment on above: Performed By: #### L 501.2450, L700.6800 #### [facility] [address] [place], [address] Albumin/Globulin [Mass ratio] 1.3 {ratio} Normal 0.9-2.4 [facility] Comment on above: Performed By: #### L 501.2450, L700.6800 #### [facility] [address] [place], [address] ALK PHOS 77 U/L Normal 35-104 [facility] Comment on above: Performed By: #### L 501.2450, L700.6800 #### [facility] [address] [place], [address] ALT [Catalytic activity/Vol] 22 U/L Normal <=34 [facility] Comment on above: Performed By: #### L 501.2450, L700.6800 #### [facility] [address] [place], [address] AST [Catalytic activity/Vol] 29 U/L Normal <=31 [facility] Comment on above: Result Comment: Hemo lysis present, Results??could be affected. ?? Performed By: #### L 501.2450, L700.6800 #### [facility] [address] [place], [address] Bilirubin [Mass/Vol] 0.33 mg/dL Normal 0.00-1.30 [facility] Comment on above: Performed By: #### L 501.2450, L700.6800 #### [facility] [address] [place], [address] BUN/CRE 8.1 RATIO Low 10-20 [facility] Comment on above: Performed By: #### L 501.2450, L700.6800 #### [facility] [address] [place], [address] Calcium [Mass/Vol] 9.0 mg/dL Normal 7.6-11.0 [facility] Comment on above: Performed By: #### L 501.2450, L700.6800 #### [facility] [address] [place], [address] Chloride [Moles/Vol] 107 mmol/L Normal 98-108 [facility] Comment on above: Performed By: #### L 501.2450, L700.6800 #### [facility] [address] [place], [address] CO2 [Moles/Vol] 21.9 mmol/L Normal 21.0-32.0 [facility] Comment on above: Performed By: #### L 501.2450, L700.6800 #### [facility] [address] [place], [address] Creatinine [Mass/Vol] 0.83 mg/dL Normal 0.70-1.20 [facility] Comment on above: Performed By: #### L 501.2450, L700.6800 #### [facility] [address] [place], [address] ECRCL 104.09 ml/min Normal 50-250 [facility] Comment on above: Performed By: #### L 501.2450, L700.6800 #### [facility] [address] [place], [address] GAP 11 Normal 5-15 [facility] Comment on above: Performed By: #### L 501.2450, L700.6800 #### [facility] [address] [place], [address] GFR/1.73 sq M.predicted among non-blacks MDRD (S/P/Bld) [Vol rate/Area] 94 mL/min/{1.73_m2} Normal >60 [facility] Comment on above: Result Comment: mL/m in/1.73m2 CKD-EPI Creatinine Equation (2020) Performed By: #### L 501.2450, L700.6800 #### [facility] [address] [place], [address] Globulin (S) [Mass/Vol] 3.3 g/dL Normal 2.2-4.2 [facility] Comment on above: Performed By: #### L 501.2450, L700.6800 #### [facility] [address] [place], [address] Glucose [Mass/Vol] 105 mg/dL High 70-99 [facility] Comment on above: Performed By: #### L 501.2450, L700.6800 #### [facility] [address] [place], [address] Potassium [Moles/Vol] 4.2 mmol/L Normal 3.3-5.1 [facility] Comment on above: Result Comment: Hemo lysis present, Results??could be affected. ?? Performed By: #### L 501.2450, L700.6800 #### [facility] [address] [place], [address] Sodium [Moles/Vol] 141 mmol/L Normal 133-145 [facility] Comment on above: Performed By: #### L 501.2450, L700.6800 #### [facility] [address] [place], [address] T PROT 7.4 g/dL Normal 5.9-8.4 [facility] Comment on above: Performed By: #### L 501.2450, L700.6800 #### [facility] [address] [place], [address] Urea nitrogen [Mass/Vol] 7 mg/dL Normal 4-19 [facility] Comment on above: Performed By: #### L 501.2450, L700.6800 #### [facility] [address] [place], [address] Emergency Department Summary on 03-19-2025 Emergency Department Summary [facility] Medical Records Department [address] [place] [address] Emergency Department Summary 03/19/25 MR#: [id number] Acct: [id number] Name: GRETA ANDRES Rep #: [id number] : 1990 35 From: Ester WILCOX PCP: [...] of kidney stones and was seen at [facility] yesterday and had a CT scan of the abdomen and pelvis that did not show any evidence of ureteral stone. She reports she has had multiple episodes of nausea and vomiting over the past 6 days. She denies fevers, chills, urinary symptoms, diarrhea, and hematemesis. [facility] Medical History Kidney stone Cancer Anemia [...] 1 - 2 puff inhalation Q4H PRN ME N 11/06/19 Unknown History aerosol inhaler Sob [...] Room Air (more content not included)... Normal [facility] ,Serum,hCG Quali.on 03-19-2025 HCG, SERUM QUAL Negative Normal [facility] Comment on above: Performed By: #### L 501.2450, L700.6800 #### [facility] [address] [place], [address] Urinalysis, Completeon 03-19 WBC 0-5 SEEN Normal 0-5 [facility] Comment on above: Order Comment: GREGG CTOR TO SPECIFY Performed By: #### L 400.0001 #### [facility] [address] [place], [address] EPI,SQUAMOUS 10-25 SEEN Normal 5-10 [facility] Comment on above: Order Comment: GREGG CTOR TO SPECIFY Performed By: #### L 400.0001 #### [facility] [address] [place], [address] BACTERIA 0 SEEN Normal None Seen [facility] Comment on above: Order Comment: GREGG CTOR TO SPECIFY Performed By: #### L 400.0001 #### [facility] [address] [place], [address] Mucus Ql (Urine sed) 0 SEEN Normal [facility] Comment on above: Order Comment: GREGG CTOR TO SPECIFY Performed By: #### L 400.0001 #### [facility] [address] [place], [address] RBC 0 SEEN Normal 0-5 [facility] Comment on above: Order Comment: GREGG CTOR TO SPECIFY Performed By: #### L 400.0001 #### [facility] [address] [place], [address] CBC + DIFFon 03-18-2025 Baso # 0.03 x10EE3/UL Normal 0.00 - 0.10 [facility] Comment on above: Performed By: #### 2 [address]506 #### [facility],[address] [place], [place] [id number] Basophils/100 WBC (Bld) 0.2 % Normal 0.0 - 2.0 [facility] Comment on above: Performed By: #### 2 [address]0785 #### [facility],[address] [place] [address] CBC + DIFF Normal [facility] Comment on above: Result Comment: CBC- COMPLETE BLOOD COUNT Performed By: #### 2 70383 #### [facility],[address] [place] [address] EO # 0.41 x10EE3/UL Normal 0.00 - 0.50 [facility] Comment on above: Performed By: #### 2 69891 #### [facility],[address] [place] [address] Eosinophils/100 WBC (Bld) 3.8 % Normal 0.0 - 7.0 [facility] Comment on above: Performed By: #### 2 87977 #### [facility],[address] [place] [address] Erythrocyte distribution width (RBC) [Ratio] 14.3 % Normal 12.0 - 15.6 [facility] Comment on above: Performed By: #### 2 26485 #### [facility],[address] [place] [address] Hematocrit (Bld) [Volume fraction] 39.6 % Normal 34.0 - 46.0 [facility] Comment on above: Performed By: #### 2 [address]8028 #### [facility],[address] [place], [place] [id number] Hemoglobin (Bld) [Mass/Vol] 14.0 g/dL Normal 12.0 - 16.0 [facility] Comment on above: Performed By: #### 2 56306 #### [facility],[address] [place] [address] Lymph # 3.07 x10EE3/UL High 0.80 - 2.80 [facility] Comment on above: Performed By: #### 2 92851 #### [facility],[address] [place] [address] Lymphocytes/100 WBC (Bld) 27.8 % Normal 20.0 - 45.0 [facility] Comment on above: Performed By: #### 2 44922 #### [facility],[address] [place] [address] MANUAL DIFF N/A Normal [facility] Comment on above: Performed By: #### 2 52390 #### [facility],[address] [place] [address] MCH (RBC) [Entitic mass] 28 pg Normal 27 - 33 [facility] Comment on above: Performed By: #### 2 26816 #### [facility],[address] [place] [address] MCHC 35 X10 3 Normal 32 - 36 [facility] Comment on above: Performed By: #### 2 79812 #### [facility],[address] [place], [place] [id number] MCV (RBC) [Entitic vol] 80 fL Normal 80 - 99 [facility] Comment on above: Performed By: #### 2 71151 #### [facility],[address] [place] [address] Thayer # 0.58 x10EE3/UL Normal 0.20 - 1.00 [facility] Comment on above: Performed By: #### 2 42281 #### [facility],[address] [place], [place] [id number] MONOS % 5.2 % Normal 0.0 - 10.0 [facility] Comment on above: Performed By: #### 2 88745 #### [facility],[address] [place], [place] [id number] Morphology Cristi (Bld) [Interp] N/A Normal [facility] Comment on above: Performed By: #### 2 89664 #### [facility],[address] [place] [address] Neut # 6.93 x10EE3/UL Normal 1.50 - 7.10 [facility] Comment on above: Performed By: #### 2 30105 #### [facility],[address] [place], [place] [phone] Neutrophils/100 WBC (Bld) 62.9 % Normal 46.0 - 76.0 [facility] Comment on above: Performed By: #### 2 04582 #### [facility],[address] [place] [address] PLATELET 239 x10EE3/UL Normal 150 - 450 [facility] Comment on above: Performed By: #### 2 69075 #### [facility],[address] [place] [address] 94691 Platelet mean volume (Bld) [Entitic vol] 8.1 fL Normal 6.6 - 10.5 [facility] Comment on above: Result Comment: AUTO MATED DIFFERENTIAL Performed By: #### 2 44247 #### [facility],[address] [place] [address]603 RBC 4.97 x 10EE6/UL Normal 4.10 - 5.30 [facility] Comment on above: Performed By: #### 2 32942 #### [facility],[address] [place] [address]23 WBC 11.0 x 10EE3/UL High 4.5 - 10.8 [facility] Comment on above: Performed By: #### 2 87366 #### [facility],[address] [place] [address]36 CMP with eGFRon 03-18-2025 AGE 35 years Normal [facility] Comment on above: Performed By: #### 2 69371 ####[facility],[address] [place] [address] 89370 Albumin [Mass/Vol] 3.4 g/dL Normal 3.4 - 5.0 [facility] Comment on above: Performed By: #### 2 31043 ####[facility],[address] [place] [address] 96362 Albumin/Globulin [Mass ratio] 0.9 {ratio} Normal 0.9 - 1.6 [facility] Comment on above: Performed By: #### 2 45981 ####[facility],[address] [place] [address] 52449 ALK PHOS 69 U/L Normal 46 - 116 [facility] Comment on above: Performed By: #### 2 20194 ####[facility],[address] [place] [address] 03282 ALT [Catalytic activity/Vol] 25 U/L Normal 16 - 63 [facility] Comment on above: Performed By: #### 2 96832 ####[facility],[address] [place] [address] 60333 Anion gap [Moles/Vol] 11 mmol/L Normal 10 - 20 [facility] Comment on above: Performed By: #### 2 84733 ####[facility],[address] [place] [address] 78194 AST [Catalytic activity/Vol] 20 U/L Normal 13 - 39 [facility] Comment on above: Performed By: #### 2 60348 ####[facility],[address] [place] [address] 94785 B/C RATIO 11 ratio Normal 0 - 30 [facility] Comment on above: Performed By: #### 2 10709 ####[facility],[address] [place] [address] 11226 Bilirubin [Mass/Vol] 0.3 mg/dL Normal 0.2 - 1.0 [facility] Comment on above: Performed By: #### 2 38315 ####[facility],[address] [place] [address] 26542 Calcium [Mass/Vol] 8.6 mg/dL Normal 8.5 - 10.1 [facility] Comment on above: Performed By: #### 2 81302 ####[facility],[address] [place] [address] 52778 Chloride [Moles/Vol] 108 mmol/L High 98 - 107 [facility] Comment on above: Performed By: #### 2 67450 ####[facility],[address] [place] [address] 08737 CMP with eGFR Normal [facility] Comment on above: Result Comment: COMP REHENSIVE METABOLIC PANEL Performed By: #### 2 29499 ####[facility],[address] [place] [address] 84634 CO2 [Moles/Vol] 25.4 mmol/L Normal 21.0 - 32.0 [facility] Comment on above: Performed By: #### 2 71455 ####[facility],[address] [place] [address] 95823 Creatinine [Mass/Vol] 0.81 mg/dL Normal 0.55 - 1.02 [facility] Comment on above: Performed By: #### 2 34456 ####[facility],[address] [place] [address] 47199 GFR/1.73 sq M.predicted among non-blacks MDRD (S/P/Bld) [Vol rate/Area] mL/min/{1.73_m2} Normal 60 - 999 [facility] Comment on above: Performed By: #### 2 45173 ####[facility],[address] [place] [address] 37256 Result Comment: ACCO RDING TO THE NATIONAL KIDNEY DISEASE EDUCATION PROGRAM(NKDE), A NORMAL eGFR IS A VALUE GREATER THAN OR EQUAL TO 60 ML/MIN/1.73 SQ METERS. CHRONIC KIDNEY DISEASE: <60mL/MIN/1.73 SQ METERS KIDNEY FAILURE: <15mL/MIN/1.73 SQ METERS THIS TEST SHOULD ONLY BE USED FOR PATIENTS 18 YEARS OF AGE AND OLDER. Globulin (S) [Mass/Vol] 3.9 g/dL High 1.5 - 3.8 [facility] Comment on above: Performed By: #### 2 97602 ####[facility],[address] [place] [address] 86485 Glucose [Mass/Vol] 87 mg/dL Normal 74 - 106 [facility] Comment on above: Performed By: #### 2 62324 ####[facility],[address] [place] [address] 89985 Potassium [Moles/Vol] 3.7 mmol/L Normal 3.5 - 5.1 [facility] Comment on above: Performed By: #### 2 02111 ####[address] [address] Protein [Mass/Vol] 7.3 g/dL Normal 6.4 - 8.2 [facility] Comment on above: Performed By: #### 2 07710 ####[facility],[address] [place] [address] 07178 Sodium [Moles/Vol] 141 mmol/L Normal 136 - 145 [facility] Comment on above: Performed By: #### 2 42693 ####[facility],[address] [place] [address] 36439 Urea nitrogen [Mass/Vol] 9 mg/dL Normal 7 - 18 [facility] Comment on above: Performed By: #### 2 41197 ####[address] [address] [address] KUB (KIDNEY STONE PROTOCO L)on 03-18-2025 CT KUB (KIDNEY STONE PROTOCOL) [place] [id number] Patient: GRETA ANDRES Artem Phone#: : 1990 Age: 35 Gender: F Pt. Type: ER Account: [id number] Location: 052 Ordering: IRAM VALLEJOER Exam Date: 03/18/2025/14:29 Family Phys: NAGI RED Charge Code: 390019 Physician: [place] Order #: [id number] Dose#: 10.90 mGy PROCEDURE: CT ABDOMEN AND PELVIS WITHOUT CONTRAST COMPARISON: [facility], CT, KUB W/O CON, 03/28/2023, 13:15. [...] 35 Gender: F Pt. Type: ER Account: [id number] Location: 052 Ordering: IRAM SARMIENTO Exam Date: 03/18/2025/14:29 Family Phys: NAGI RED Charge Code: 806113 Physician: [place] Order #: [id number] Dose#: 10.90 mGy LUNG BASES: Normal. No visible pulmonary or pleural disease. OTHER: Negative. CONCLUSION: 1. Nonobstructing bilateral renal calculi are present. There is no evidence of hydronephrosis or ureteral calculus. Dictated by: Fabiola Cantrell MD on 03/18/2025 at 19:26 Approved by: Fabiola Cantrell MD on 03/18/2025 at 19:30 Normal [facility] ED MED ADMINISTRATION DETAIL on 03-18-2025 ED MED ADMINISTRATION DETAIL Control Clerk Auditing Medication Administration Record [address] [place] [address] [id number] 03/18/2025 Patient: GRETA ANDRES Sex: Female : [...] established. IV site checked: no pain, Judson Trey, redness, or swelling. IV flushed thoroughly pre-medication E.M.T.-P. administration. Information reviewed with patient. Verbalizes Stopped understanding. Completed per protocol. - 13:32 Judson Yang, 16:15 03/18/2025 E.M.T.-P. Tiffani Cheng R.N. Scanned 16:15 03/18 Medication Discontinued: bag #1 completed upon discharge. Total amount infused: 1000 mL. IV patency established. IV site checked: no pain, redness, or swelling. IV flushed thoroughly post-medication administration. - 16:16 Zachary Floydmorphone 13:43 03/18 HYDROmorphone (Dilaudid) IVP 0.5 mg given via Given (Dilaudid) IVP 0.5 Site# 1. Allergies verified and confirmed 5 rights. IV patency 13:43 03/18/2025 mg (NOW x1, HIGH established. IV site checked: no pain, redness, or swelling. IV Tiffani Cheng R.N. ALERT flushed thoroughly pre-medication administration. Information Scanned MEDICATION) reviewed with patient. Verbalizes understanding. - 13:43 Tiffani Cheng R.N. 1 of 2 Control Clerk Auditing Medication Ordered Medication Administration Date/Time Zofran IVP [...] Scanned Wastage: 15 mg wasted. - 14:58 Kd CormierM.T.-P. HYDROmorphone 15:38 03/18 HYDROmorphone (Dilaudid) IVP 0.5 [...] Tiffani Cheng R.N. 2 of 2 Normal [facility] ED NURSES CLINICAL NOTEon ED NURSES CLINICAL NOTE Nurse Narrative Nurse Clinical Narrative [place] [address] [place] [address] [id number] 03/18/2025 12:53:00 Patient: GRETA ANDRES Sex: Female [...] Ht/Grzegorz: 65.0 in, BMI: 31.62 -- 13:03/18/25 EDT Guicho Huffman R.N. Medications: promethazine 12.5 mg tablet -- 13:03/18/25 DEBORAT Guicho Huffman R.N. sumatriptan 50 mg tablet -- 13:03/18/25 DEBORAT Guicho Huffman R.N. tramadol 50 mg tablet -- 13:03/18/25 DEBORAT Guicho Huffman R.N. 1 of 4 Nurse Narrative levothyroxine 200 mcg tablet -- 13:03/18/25 EDT Guicho Huffman R.N. propranolol 20 mg tablet -- 13:04 03/18/25 DEBORA Guicho Huffman R.N. levothyroxine 25 mcg tablet -- 13:04 03/18/25 DEBORAT Guicho Huffman R.N. prazosin 2 mg capsule -- 13:04 03/18/25 [facility] Guicho Huffman R.N. hydrochlorothiazide 25 mg tablet -- 13:04 03/18/25 [facility] Guicho Huffman R.N. quetiapine 50 mg tablet -- 13:04 03/18/25 [facility] Guicho Huffman R.N. magnesium 100 mg (as glycinate) capsule: TAKE 1 CAPSULE BY MOUTH TWICE DAILY -- 13:04 03/18/25 DEBORAT Guicho Huffman R.N. scopolamine 1 mg over 3 days transdermal patch -- 13:04 03/18/25 DEBORA Guicho Huffman R.N. Vraylar 1.5 mg capsule -- 13:04 03/18/25 DEBORAT Guicho Huffman R.N. Allergies: morphine -- 12:57 03/18/25 T Guicho Huffman R.N. Adderall -- 12:57 03/18/25 DEBORAT Guicho Huffman R.N. Problems: Asthma -- 12:57 03/18/25 DEBORAT Guicho Huffman R.N. thyroid cancer -- 12:57 03/18/25 DEBORAT Guicho Huffman R.N. Gastroparesis -- 12:58 03/18/25 DEBORAT Guicho Huffman R.N. kidney stones -- 12:58 03/18/25 DEBORAT Guicho Huffman R.N. ADDITIONAL SURGERIES: Cholecystectomy -- 12:58 03/18/25 DEBORAT Guicho Huffman R.N. Sinus Surgery -- 12:58 03/18/25 DEBORAT Guicho Huffman R.N. kidney stone -- 12:58 03/18/25 DEBORAT Guicho Huffman R.N. urethra widening -- 12:58 03/18/25 DEBORAT Guicho Huffman R.N. Thyroidectomy -- 12:59 03/18/25 [...] completed. No risk factors identified. -- 13:03/18/25 EDT Guicho Huffman R.N. Interventions 12:56 03/18/25. Advanced [...] mL saline. -- 13:30 03/18/25 EDT Akua Cormier-P. 13:31 03/18/25. IV NS 0.9 % 1000 mL started in bag#1 1000 mL at 500 mL/hr over 2 hour(s) via Site# 1. Allergies verified and confirmed 5 rights. IV patency established. IV site checked: no pain, redness, or swelling. IV flushed thoroughly pre-medication administration. Information reviewed with patient. Verbalizes understanding. Completed per protocol. -- 13:32 03/18/25 EDT Akua Cormier-P. 13:42 03/18/25. Zofran IVP 4 mg given via Site# 1. Allergies verified and confirmed 5 rights. IV patency established. IV site checked: no pain, redness, or swelling. IV flushed thoroughly pre-medication administration. Information reviewed with patient. Verbalizes understanding. -- 13:43 03/18/25 EDT Tiffani Cheng R.N. 1 (more content not included)... Normal [facility] ED ORDER SHEET (CPOE ONLY)on 03-18-2025 ED ORDER SHEET (CPOE ONLY) Order Sheet Order Sheet [facility] [address] [place] [address] [id number] 03/18/2025 Patient: GRETA ANDRES Sex: Female : 1990 Age: 35y MEASUREMENTS: Wt: 86.2 kg, Ht/Grzegorz: 65.0 in, BMI: 31.62 ALLERGIES: Adderall, morphine MEDICATION/IV/DRIP/FLUID ORDERS Order Description Priority Entered Acknowledged Completed IV NS 0.9 %1000 mL at 500 13:00 03/18/2025 13:22 13:32 mL/hr (NOW x1) Iram Sarmiento, 03/18/2025 03/18/2025 Judson Hinds E.M.T.-PPolina YiM.T.-P. HYDROmorphone (Dilaudid) 13:33 03/18/2025 13:40 13:43 IVP0.5 mg (NOW x1, HIGH Iram Sarmiento, 03/18/2025 03/18/2025 ALERT MEDICATION) Zachary Campa, R.NPolina Reason for ordering with alerts: Benefits outweigh risks --13:33 03/18/2025 Iram Sarmiento D.O. Zofran IVP4 mg (NOW x1) 13:33 03/18/2025 13:40 13:43 Iram Sarmiento, 03/18/2025 03/18/2025 Zachary Campa, R.N. Reason for ordering with alerts: Benefits outweigh risks --13:33 03/18/2025 Iram Sarmiento D.O. KetorOLAC (Toradol) IVP15 mg 14:50 03/18/2025 14:53 14:58 1 of 3 Order Sheet (NOW x1) Iram Sarmiento, 03/18/2025 03/18/2025 Zachary Campa E.M.T.-Sy Reason for ordering with alerts: Benefits outweigh [...] 03/18/2025 Judson Khan Bryan Parker, D.O. E.M.T.-PPolina MartínezT.-P. CMP Stat Stat 13:00 03/18/2025 13:21 03/18/2025 13:32 03/18/2025 Judson Khan Bryan Parker, D.O. E.M.TPolina-PPolina MartínezT.-P. Lipase Stat Stat 13:00 03/18/2025 13:21 03/18/2025 13:32 03/18/2025 Judson Khan Bryan Parker, D.O. E.M.TPolina-PPolina MartínezT.-P. Urinalysis Stat Stat 13:00 03/18/2025 13:21 03/18/2025 [...] (03/18/2025 16:23 EDT)] 3 of 3 Normal [facility] ED PHYSICIAN CLINICAL REPORT on 03-18-2025 ED PHYSICIAN CLINICAL REPORT Narrative Physician Clinical Narrative [address] [address] [id number] 03/18/2025 12:53:00 Patient: GRETA ANDRES Sex: Female [...] a low specific gravity, may not contain claim representative EXTERNAL QC 03/18/2025 13:29 YES Final [...] Final NORMAL EDT NORMAL: 03/18/2025 13:29 Sp Wolbach 1.015 Final 1.010-1.030 EDT NORMAL: 03/18/2025 13:29 [...] 03/18/2025 13: (more content not included)... Normal [facility] ED SUPER BILLon 03-18-2025 ED SUPER BILL [facility] [address] [place] [address] [id number] 03/18/2025 Patient: GRETA ANDRES Sex: Female : 1990 Age: 35y Facility Professional Category Item Description Code Code Quantity Fee Total Nurse/E/M EMERGENCY 801685 1 $0.00 $0.00 DEPT VISIT HIGH SEVERITYFUNCJ (86310-22) Nurse/IV/IM/Infusions Hydration 979819 3 $0.00 $0.00 additional hour (94107) Nurse/IV/IM/Infusions IVP additional 093562 2 $0.00 $0.00 push (02773) Nurse/IV/IM/Infusions IVP initial (40684) 294468 1 $0.00 $0.00 Nurse/IV/IM/Infusions IVP same med 879919 1 $0.00 $0.00 (31 min apart) (81324) Grand $0.00 Total Providers Iram Sarmiento D.O. 1 of 2 Superbill Chief Complaint FLANK PAIN. Principal Diagnosis Acute right upper quadrant and right lower quadrant abdominal pain of undetermined cause. ICD-10 Codes R10.11: Right upper quadrant pain R10.31: Right lower quadrant pain 2 of 2 Normal [facility] ED VISIT SUMMARYon ED VISIT SUMMARY Visit Overview Visit Overview [address] [address] [id number] 03/18/2025 Patient: GRETA ANDRES Sex: Female : [...] 15:32 03/18/25 BP 13:00 03/18/25 155/104 BP 15:03/18/25 158/108 HR 13:00 03/18/25 74 HR 15:03/18/25 78 RR 13:00 03/18/25 16 RR 15:03/18/25 18 O2 Sat 13:00 03/18/25 99% O2 Sat 15:03/18/25 98% Pain 13:00 03/18/25 6 Pain 15:03/18/25 7 ETCO2 13:00 03/18/25 ETCO2 15:32 03/18/25 GCS 13:00 03/18/25 GCS 15:32 03/18/25 RTS 13:00 03/18/25 RTS 15:03/18/25 PROCEDURES NURSING INTERVENTIONS LABS / STUDIES LABS / STUDIES ORDERED CBC w Diff CMP CT KUB (Kidney stone) Lipase Urinalysis Urine - HCG CLINICAL IMPRESSION 3 of 4 Visit Overview ACUTE RIGHT UPPER QUADRANT AND RIGHT LOWER QUADRANT ABDOMINAL PAIN OF UNDETERMINED CAUSE 4 of 4 Normal [facility] ED VITALS FLOW SHEETon 03-18 ED VITALS FLOW SHEET Vitals Vital Sign Flow Sheet [address] [place] [id number] 03/18/2025 Patient: GRETA ANDRES Sex: Female : [...] 98.1 F 6 1 of 1 Normal [facility] LIPASEon 03-18-2025 Lipase [Catalytic activity/Vol] 45.0 U/L Normal 15.0 - 78.0 [facility] Comment on above: Result Comment: *PLE ASE NOTE THAT RANGES FOR LIPASE HAVE CHANGED OF 11/19/23 DUE TO AN ASSAY UPDATE BY THE BUSINESS TECHNOLOGY TEACHER.THE NEW ASSAY RANGE IS 6-250 U/L, WITH A REFERENCE RANGE OF 16-77 U/L. Performed By: #### 2 [id number] #### [facility],[address] [place] [address]168 URINEon 03-18-2025 Beta HCG ( test) Ql (U) Negative Normal NEGATIVE [facility] Comment on above: Performed By: #### 2 19227 ####[address] [address] EXTERNAL QC DONE? YES Normal [facility] Comment on above: Result Comment: Very dilute urine specimens, as indicated by a low specific gravity, may not contain claim representative levels of hCG. If is still suspected, a first morning urine specimen should be collected 48 hours later and tested. Performed By: #### 2 05707 ####[facility],[address] [place] [address] INTERNAL QC PASS Normal [facility] Comment on above: Performed By: #### 2 57511 ####[facility],[address] [place] [address] URINALYSISon 03-18-2025 Bilirubin Ql (U) Negative Normal NORMAL: NEGATIVE [facility] Comment on above: Performed By: #### 2 91308 ####[facility],[address] [place] [address] Clarity (U) clear Normal NORMAL: CLEAR [facility] Comment on above: Performed By: #### 2 49673 ####[facility],[address] [place] [address] Color (U) yellow Normal NORMAL: YELLOW [facility] Comment on above: Performed By: #### 2 92018 ####[facility],[address] [place], [place] [id number] Glucose Ql (U) NORM Normal NORMAL: NORMAL [facility] Comment on above: Performed By: #### 2 90591 ####[facility],[address] [place] [address]115 Hemoglobin Ql (U) Negative Normal NORMAL: NEGATIVE [facility] Comment on above: Performed By: #### 2 21789 ####[facility],[address] [place] [address]397 Ketone Negative Normal NORMAL: NEGATIVE [facility] Comment on above: Performed By: #### 2 94068 ####[facility],[address] [place] [address] Leukocytes Negative Normal NORMAL: NEGATIVE [facility] Comment on above: Performed By: #### 2 20907 ####[facility],[address] [place] [address] Nitrite Ql (U) Negative Normal NORMAL: NEGATIVE [facility] Comment on above: Performed By: #### 2 61110 ####[facility],[address] [place] [address] pH (U) 6.5 [pH] Normal NORMAL: 5.0-8.0 [facility] Comment on above: Performed By: #### 2 31878 ####[facility],[address] [place] [address] Protein Ql (U) 15 Abnormal NORMAL: NEGATIVE [facility] Comment on above: Performed By: #### 2 [id number] ####[facility],[address] [place] [address] Sp Wolbach 1.015 Normal NORMAL: 1.010-1.030 [facility] Comment on above: Performed By: #### 2 89665 ####[facility],[address] [place] [address] Specimen Type R Normal [facility] Comment on above: Performed By: #### 2 29421 ####[facility],[address] [place] [address] Urinalysis dipstick W Reflex Microscopic panel (U) NOT INDICATED Normal [facility] Comment on above: Performed By: #### 2 88081 ####[facility],[address] [place] [address] Urobilinog NORM Normal NORMAL: NORMAL [facility] Comment on above: Performed By: #### 2 15326 ####[facility],[address] [place], [place] [address] CNOVon 03-02-2025 CNOV Office Visit (PNMDNA ) GRETA ANDRES ([id number]) 1990 F Date Time Provider Department 03/02/25 9:00 AM CARLIE BROWNLEE CYNDIMDYULY During your visit today, we recorded the following information about you: Pulse Weight 87/minute 86.9 kg Carlie Brownlee, CUSTOMER SUPPORT ANALYST.SHELF DRIER OPERATOR 03/02/2025 9:34 AM Signed Subjective Greta Andres presents to [facility] Pain Management Department for a follow up [...] been transmitted (more content not included)... Normal [facility] 03-02-2025 CNPN Telephone (PNMDNA) GRETA ANDRES ([id number]) 1990 F Date Time Provider Department 03/02/25 CARLIE BROWNLEE During your visit today, we [...] for current RX? Please advise jhoan call [facility] at [phone] with recommendations. Carlie Powell APRN.[facility] 03/02/2025 10:02 AM Signed Resent the rx Allergies As of Date: 03/02/2025 Noted Allergy Reaction ADHESIVE 02/12/2010 2 - Rash MORPHINE SULFATE 11/12/2008 9 - Itching Comments: had vicodin at same time, but has taken vicodin in past without reaction ADDERALL (DEXTROAMPHETAMINE-AMPHE* 5 - Intolerance Comments: Heart racing, chest pain, diaphoretic, dizzy Date Reviewed: 01/05/2025 Reviewed by: Moomaw, Tomas, CUSTOMER SUPPORT ANALYST.SHELF DRIER OPERATOR - Fully Assessed Reason for Visit: Medication [...] by mouth two times a day. - Gvgch-5-ROG-EPA-Fish Oil (FISH OIL) 1,000 (120-180) mg cap [...] stones [N20.0 (more content not included)... Normal [facility] CNPNon 02-19-2025 CNPN Telephone (PNMDNA) GRETA ANDRES ([id number]) 1990 F Date Time Provider Department 02/19/25 JUAN DANIEL CONTRERAS During your visit today, we recorded the following information about you: Mahesh Quispe, RN 02/19/2025 3:22 PM Signed Patient left message on nurse 02/19/25 at 11:37 asking if she should postpone her appointment with Dr. Contreras on 02/26/25 until after she completes physical therapy. Please call patient at [phone]. Naomi Godwin, DEANDRE 02/19/2025 3:30 PM Signed Advised patient via [...] Date Reviewed: 01/05/2025 Reviewed by: Tomas Alexis APRN.SHELF DRIER OPERATOR - Fully Assessed Reason for Visit: Patient Question [9754] Prescriptions as of 02/19/2025 - SUMAtriptan (IMITREX) [...] by mouth two times a day. - Nkgfb-8-BCZ-EPA-Fish Oil (FISH OIL) 1,000 (120-180) mg cap [...] Status:Closed by NAOMI GODWIN on 02/19/25 Normal [facility] Gastric Emptying Studyon Gastric Emptying Study [facility] Imaging Services [address] [place], [place] [address] Gastric Emptying Study MR#: [id number] Acct: [id number] Name: GRETA ANDRES Rep #: [id number] : 1990 F 34 From: Loan Aguirre nd, MD PCP: Dr. Nagi Red MD Status: REG CLI Study: Gastric Emptying Study Date of Exam: 02/12/25 Exam# [id number] Ordering Dr: Taylor Samuel PROCEDURE: GASTRIC EMPTYING [...] to timing of study termination. Reading Location: [id number] CC: Dr. Nagi Red MD; JERI Marquez Can Solderer: Signed Normal [facility] CNPSara 02-08-2025 CNPN Telephone (PNMDNA) GRETA ANDRES ([id number]) 1990 F Date Time Provider Department 02/08/25 JUAN DANIEL CONTRERAS PNMDNA During your visit today, we recorded [...] MRI order placed 05/16/2024. PT: Not completed [employer]ut message sent. PT order pended for provider [...] Date Reviewed: 01/05/2025 Reviewed by: Tomas Alexis APRN.SHELF DRIER OPERATOR - Fully Assessed Reason for Visit: Insurance Authorization [[id number]] Cmt: Lumbar MRI Denial Primary Visit Diagnosis:Radiculopathy, lumbar region [M54.16] Other Visit Diagnosis:Degeneration of intervertebral disc of lumbar region with discogenic back pain [M51.360] Order(s):CONSULT TO PHYSICAL THERAPY [1277] Order #: [id number]: 1 FUTURE Prescriptions as of 02/12/2025 - [...] by mouth two times a day. - Phsgs-9-NFG-EPA-Fish Oil (FISH OIL) 1,000 (120-180) mg cap [...] 03/22/2014 Fibromyalgia (more content not included)... Normal [facility] Ova and Parasites 8623on OP OVA AND PARASITES EX AM, ROUTINE These results were obtained using wet preparation(s) and trichrome stained smear. This test does not include testing for Crytosporidium parvum, Cyclospora, or Microsporidia. One negative specimen does not rule out the possibility of a parasitic infection. _ [facility] ORIGINAL REPORT ON FILE IN LAB CONTAINS ADDITIONAL TEST SITE INFORMATION. _ Ova/Parasite Exam NO OVA, CYSTS, OR PARASITES FOUND. Normal [facility] Comment on above: Performed By: #### L 101.9900, L500.4050, L501.6710, L100.0100 #### [facility] [address] [place], [place], [id number] Calprotectin, Stoolon [address] 25 ug/g Normal 0-120 [facility] Comment on above: Result Comment: Conc entration Interpretation Follow-Up < 5 - 50 ug/g Normal None >50 -120 ug/g Borderline Re-evaluate in 4-6 weeks >120 ug/g Abnormal Repeat as clinically indicated Performed at: - [facility] [id number] Property Management Supervisor: Laura John MD, Phone: [phone] Performed By: #### L 101.9900, L500.4050, L501.6710, L100.0100 #### [facility] [address] [place], [place], [id number] Giardia Lamblia, Stool EIAon 02-03-2025 Giardia Stool Negative Normal Negative [facility] Comment on above: Result Comment: Perf ormed at: [facility] [id number] Property Management Supervisor: Rony Esquivel PhD, Phone: [phone] Performed By: #### L 101.9900, L500.4050, L501.6710, L100.0100 #### [facility] [address] [place], [place], [id number] CDIFF (PCR)on 02-02-2025 CDIFF Reference Range: Neg ative Cepheid GeneXpert: polymerase chain reaction (PCR) 027 027 NAP1-B1 Presumptive Negative *for epidemiolologic???use C. Diff PCR Negative- No toxigenic C. Diff Detected Normal [facility] Comment on above: Performed By: #### L 101.9900, L500.4050, L501.6710, L100.0100 #### [facility] [address] [place], [place], [id number] ENTERIC PATHOGEN PANEL STOOL on 02-02-2025 EP [...] VIBRIO Not Detected Yersinia Not Detected Normal [facility] Comment on above: Performed By: #### L 101.9900, L500.4050, L501.6710, L100.0100 #### [facility] [address] [place], [place], [id number] (860) Stool Lactoferrin/WBCon -1 WBCST Normal Reference Ran ge = Negative Fecal WBC Lactoferrin Negative: No Fecal WBC Lactoferrin present Normal [facility] Comment on above: Performed By: #### L 101.9900, L500.4050, L501.6710, L100.0100 #### [facility] [address] [place], [address] CBC W/Diff, Automatedon 03-0 Absolute Lymph 3.47 X10 3/uL Normal 0.83-4.51 [facility] Comment on above: Performed By: #### L 101.9900, L500.4050, L501.6710, L100.0100 #### [facility] [address] [place], [address] Absolute Neut 7.5 X10 3/uL Normal 2.0-7.7 [facility] Comment on above: Performed By: #### L 101.9900, L500.4050, L501.6710, L100.0100 #### [facility] [address] [place], [address] Basophils/100 WBC (Bld) 0.3 % Normal 0-1 [facility] Comment on above: Performed By: #### L 101.9900, L500.4050, L501.6710, L100.0100 #### [facility] [address] [place], [address] Eosinophils/100 WBC (Bld) 3.3 % Normal 0-5 [facility] Comment on above: Performed By: #### L 101.9900, L500.4050, L501.6710, L100.0100 #### [facility] [address] [place], [address] Erythrocyte distribution width (RBC) [Ratio] 13.3 % Normal 11.6-14.6 [facility] Comment on above: Performed By: #### L 101.9900, L500.4050, L501.6710, L100.0100 #### [facility] [address] [place], [address] Hematocrit (Bld) [Volume fraction] 39.1 % Normal 37-47 [facility] Comment on above: Performed By: #### L 101.9900, L500.4050, L501.6710, L100.0100 #### [facility] [address] [place], [address] Hemoglobin (Bld) [Mass/Vol] 13.8 g/dL Normal 12.0-15.0 [facility] Comment on above: Performed By: #### L 101.9900, L500.4050, L501.6710, L100.0100 #### [facility] [address] [place], [address] IG% 1.000 High 0.0-0.9 [facility] Comment on above: Result Comment: IG% - Immature Granulocytes (promyelocytes, myelocytes and metamyelocytes) > 1% indicates that a LEFT SHIFT is Present. Performed By: #### L 101.9900, L500.4050, L501.6710, L100.0100 #### [facility] [address] [place], [address] Lymphocytes/100 WBC (Bld) 28.2 % Normal 19-41 [facility] Comment on above: Performed By: #### L 101.9900, L500.4050, L501.6710, L100.0100 #### [facility] [address] [place], [address] MCH (RBC) [Entitic mass] 28.0 pg Normal 27.0-32.0 [facility] Comment on above: Performed By: #### L 101.9900, L500.4050, L501.6710, L100.0100 #### [facility] [address] [place], [address] MCHC (RBC) [Mass/Vol] 35.3 g/dL Normal 32-36 [facility] Comment on above: Performed By: #### L 101.9900, L500.4050, L501.6710, L100.0100 #### [facility] [address] [place], [address] MCV (RBC) [Entitic vol] 79.5 fL Low 81-99 [facility] Comment on above: Performed By: #### L 101.9900, L500.4050, L501.6710, L100.0100 #### [facility] [address] [place], [address] Monocytes/100 WBC (Bld) 6.5 % Normal 0-10 [facility] Comment on above: Performed By: #### L 101.9900, L500.4050, L501.6710, L100.0100 #### [facility] [address] [place], [address] Neutrophils/100 WBC (Bld) 60.7 % Normal 47-70 [facility] Comment on above: Performed By: #### L 101.9900, L500.4050, L501.6710, L100.0100 #### [facility] [address] [place], [address] Nucleated RBC (Bld) [#/Vol] 0 10*3/uL Normal 0-5 [facility] Comment on above: Performed By: #### L 101.9900, L500.4050, L501.6710, L100.0100 #### [facility] [address] [place], [address] Platelet mean volume (Bld) [Entitic vol] 10.2 fL Normal 6.2-12.0 [facility] Comment on above: Performed By: #### L 101.9900, L500.4050, L501.6710, L100.0100 #### [facility] [address] [place], [address] Platelets (Bld) [#/Vol] 300 10*3/uL Normal 150-450 [facility] Comment on above: Performed By: #### L 101.9900, L500.4050, L501.6710, L100.0100 #### [facility] [address] [place], [address] RBC (Bld) [#/Vol] 4.92 10*6/uL Normal 4.2-5.4 [facility] Comment on above: Performed By: #### L 101.9900, L500.4050, L501.6710, L100.0100 #### [facility] [address] [place], [address] RDW SD 38.3 fl Normal 35.1-43.9 [facility] Comment on above: Performed By: #### L 101.9900, L500.4050, L501.6710, L100.0100 #### [facility] [address] [place], [address] WBC (Bld) [#/Vol] 12.3 10*3/uL High 4.4-11.0 [facility] Comment on above: Performed By: #### L 101.9900, L500.4050, L501.6710, L100.0100 #### [facility] [address] [place], [address] CRPon 01-26-2025 C-REACTIVE PROT 10.40 mg/L High 0.0-3.0 [facility] Comment on above: Performed By: #### L 101.9900, L500.4050, L501.6710, L100.0100 #### [facility] [address] [place], [address] Comprehensive Metabolic Prof ilon 01-26-2025 Albumin [Mass/Vol] 4.0 g/dL Normal 3.5-5.0 [facility] Comment on above: Performed By: #### L 101.9900, L500.4050, L501.6710, L100.0100 #### [facility] [address] [place], [address] Albumin/Globulin [Mass ratio] 1.3 {ratio} Normal 0.9-2.4 [facility] Comment on above: Performed By: #### L 101.9900, L500.4050, L501.6710, L100.0100 #### [facility] [address] [place], [address] ALK PHOS 79 U/L Normal 35-104 [facility] Comment on above: Performed By: #### L 101.9900, L500.4050, L501.6710, L100.0100 #### [facility] [address] [place], [address] ALT [Catalytic activity/Vol] 19 U/L Normal <=34 [facility] Comment on above: Performed By: #### L 101.9900, L500.4050, L501.6710, L100.0100 #### [facility] [address] [place], [address] AST [Catalytic activity/Vol] 21 U/L Normal <=31 [facility] Comment on above: Performed By: #### L 101.9900, L500.4050, L501.6710, L100.0100 #### [facility] [address] [place], [address] Bilirubin [Mass/Vol] 0.26 mg/dL Normal 0.00-1.30 [facility] Comment on above: Performed By: #### L 101.9900, L500.4050, L501.6710, L100.0100 #### [facility] [address] [place], [address] BUN/CRE 9.9 RATIO Low 10-20 [facility] Comment on above: Performed By: #### L 101.9900, L500.4050, L501.6710, L100.0100 #### [facility] [address] [place], [address] Calcium [Mass/Vol] 9.4 mg/dL Normal 7.6-11.0 [facility] Comment on above: Performed By: #### L 101.9900, L500.4050, L501.6710, L100.0100 #### [facility] [address] [place], [address] Chloride [Moles/Vol] 106 mmol/L Normal 98-108 [facility] Comment on above: Performed By: #### L 101.9900, L500.4050, L501.6710, L100.0100 #### [facility] [address] [place], [address] CO2 [Moles/Vol] 20.8 mmol/L Low 21.0-32.0 [facility] Comment on above: Performed By: #### L 101.9900, L500.4050, L501.6710, L100.0100 #### [facility] [address] [place], [address] Creatinine [Mass/Vol] 0.80 mg/dL Normal 0.70-1.20 [facility] Comment on above: Performed By: #### L 101.9900, L500.4050, L501.6710, L100.0100 #### [facility] [address] [place], [address] GAP 12 Normal 5-15 [facility] Comment on above: Performed By: #### L 101.9900, L500.4050, L501.6710, L100.0100 #### [facility] [address] [place], [address] GFR/1.73 sq M.predicted among non-blacks MDRD (S/P/Bld) [Vol rate/Area] 100 mL/min/{1.73_m2} Normal >60 [facility] Comment on above: Result Comment: mL/m in/1.73m2 CKD-EPI Creatinine Equation (2020) Performed By: #### L 101.9900, L500.4050, L501.6710, L100.0100 #### [facility] [address] [place], [address] Globulin (S) [Mass/Vol] 3.0 g/dL Normal 2.2-4.2 [facility] Comment on above: Performed By: #### L 101.9900, L500.4050, L501.6710, L100.0100 #### [facility] [address] [place], [address] Glucose [Mass/Vol] 78 mg/dL Normal 70-99 [facility] Comment on above: Performed By: #### L 101.9900, L500.4050, L501.6710, L100.0100 #### [facility] [address] [place], [address] Potassium [Moles/Vol] 3.9 mmol/L Normal 3.3-5.1 [facility] Comment on above: Performed By: #### L 101.9900, L500.4050, L501.6710, L100.0100 #### [facility] [address] [place], [address] Sodium [Moles/Vol] 138 mmol/L Normal 133-145 [facility] Comment on above: Performed By: #### L 101.9900, L500.4050, L501.6710, L100.0100 #### [facility] [address] [place], [address] T PROT 7.1 g/dL Normal 5.9-8.4 [facility] Comment on above: Performed By: #### L 101.9900, L500.4050, L501.6710, L100.0100 #### [facility] [address] [place], [address] Urea nitrogen [Mass/Vol] 8 mg/dL Normal 4-19 [facility] Comment on above: Performed By: #### L 101.9900, L500.4050, L501.6710, L100.0100 #### [facility] [address] [place], [address] Erythrocyte Sed Rateon 01-26 SED RATE 7 mm/hr Normal 0-30 [facility] Comment on above: Performed By: #### L 101.9900, L500.4050, L501.6710, L100.0100 #### [facility] [address] [place], [address] Gastroenterology Visit Repor ton 01-19-2025 Gastroenterology Visit Report [facility] [address] [place] [address] OFFICE VISIT Date of Service: 01/19/25 MR#: [id number] Acct: [id number] Name: GRETA ANDRES Rep #: [id number] : 1990 Provider: JERI Marquez Age/Sex: 34/F Location: [facility] Status: Signed Intake Vital Signs 10/21/24 10:40 [...] but is unable to take while working. [facility] Medical History Kidney stone Cancer Anemia Migraine [...] the office today for f/u. BGI established 3.. with chronic vomiting. Family hx of Crohns [...] and sin (more content not included)... [facility] (UCW[facility] ) GRETA ANDRES ([id number]) 1990 F Date Time Provider Department 01/05/25 8:15 AM TOMAS ALEXIS [facility] During your visit today, we recorded the following information about you: Temperature Pulse Respiration Blood pressure 98 degrees 84/minute 18/minute 115/79 Weight 87.8 kg Tomas Alexis APRN.SHELF DRIER OPERATOR 01/05/2025 8:42 AM Signed This note was created using Sesameariter. Subjective rGeta Andres is a 34 year old female. [...] to start antibiotics. She will otherwise use tody-yrw-hciygav treatments as necessary for symptomatic relief. - [...] Date Reviewed: 01/05/2025 Reviewed by: Tomas Alexis APRN.SHELF DRIER OPERATOR - Fully Assessed Reason for Visit: Cough [...] by mouth two times a day. - Rpgai-7-MZU-EPA-Fish Oil (FISH OIL) 1,000 (120-180) mg cap [...] Other acqu (more content not included)... Normal [facility] CNOVon 12-15-2024 CNOV Office Visit (FAMPWS ) GRETA ANDRES ([id number]) 1990 F Date Time Provider Department 12/15/24 1:40 PM RENARD ALMODOVAR During your visit today, we recorded the following information about you: Pulse Respiration Blood pressure Weight 75/minute 14/minute 154/88 88.9 kg Renard Almodovar, CUSTOMER SUPPORT ANALYST.SHELF DRIER OPERATOR 12/15/2024 1:58 PM Signed Chief Complaint Patient [...] 08/07/2013 Bipolar 1 disorder (HCC) 02/14/2018 Seeing [facility] Behavioral Medicine as of 01/2018 Bipolar [...] spinal stenosis 04/25/2024 Lupus (systemic lupus erythematosus) ([facility]) Migraine without aura and without status migrainosus, not intractable 05/20/2017 Multiple thyroid nodules 07/26/2019 Neoplasm of uncertain behavior of skin of back Obesity, Class I, BMI 30-34.9 03/03/2023 Other and unspecified ovarian cyst Ovarian cyst Other joint derangement, not elsewhere classified, lower leg 08/20/2008 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 Normal [facility] HISTORY PHYSICALon HISTORY PHYSICAL HNO ID: [id number] Author: JUAN DANIEL CONTRERAS MD Service: Pain [...] 08/07/2013 Bipolar 1 disorder (HCC) 02/14/2018 Seeing [facility] Behavioral Medicine as of 01/2018 Bipolar [...] classified, lower leg 08/20/2008 Papillary thyroid carcinoma ([facility]) 07/21/2019 PMH - PAST MEDICAL HISTORY OF r thumb broken Post-surgical hypothyroidism 08/25/2019 Primary thyroid papillary carcinoma ([facility]) 07/21/2019 PTSD (post-traumatic stress disorder) 02/14/2018 PTSD (post-traumatic stress disorder) S/P total thyroidectomy 07/31/2019 Sacroiliitis, not elsewhere classified ([facility]) 02/20/2013 SI (sacroiliac) joint dysfunction 11/06/2015 [...] mL/hr INTRAVENOUS CONTIN (more content not included)... [facility] OPERATIVE NOon 11-09-2024 OPERATIVE NO HNO ID: [id number] Author: JUAN DANIEL CONTRERAS MD Service: Pain Management Author Type: Physician Type: Operative Report Filed: 11/09/2024 13:20 Note Text: PATIENT NAME: Greta Andres SERVICE DATE: 11/09/2024 Preoperative Diagnosis: Left SI joint dysfunction Left SI joint pain Postoperative Diagnosis: Same Hearings Reporter(s): None, I performed the entire procedure. ANESTHESIA: [...] RF ablation of the SI joint per [employer]. PROCEDURE: Left SI joint BIPOLAR RADIOFREQUENCY [...] DATE: November 09, 2024 TIME: 1:19 PM [facility] 11-02-2024 [facility] Office Visit (FAMSeWS ) GRETA ANDRES ([id number]) 1990 F Date Time Provider Department 11/02/24 9:40 AM RENARD ALMODOVAR During your visit today, we recorded the following information about you: Pulse Blood pressure Weight 112/minute 125/85 85.3 kg Renard Almodovar APRN.SHELF DRIER OPERATOR 11/02/2024 9:28 AM Signed Chief Complaint Patient [...] 08/07/2013 Bipolar 1 disorder (HCC) 02/14/2018 Seeing [facility] Behavioral Medicine as of 01/2018 Bipolar [...] Current Medication (more content not included)... Normal [facility] Matilda 10-27-2024 MARGARITAN Telephone (FAMPWS) GRETA ANDRES ([id number]) 1990 F Date Time Provider Department 10/27/24 CHRISTINE DEAN During your visit today, we recorded the following information about you: Christine Dean PA-C 10/27/2024 9:05 AM Signed Let patient know that her TSH is 89. 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 We [...] lab results faxed to his office at [phone]. Ada Carson LPN Allergies As of Date: 10/27/2024 Noted Allergy Reaction ADHESIVE 02/12/2010 2 - Rash MORPHINE SULFATE 11/12/2008 9 - Itching Comments: had vicodin at same time, but has taken vicodin in past without reaction ADDERALL (DEXTROAMPHETAMINE-AMPHE* 5 - Intolerance Comments: Heart racing, chest pain, diaphoretic, dizzy Date Reviewed: 10/18/2024 Reviewed by: Nagi Ku APRN.SHELF DRIER OPERATOR - Fully Assessed Reason for Visit: Results [...] Status:Closed by ADA CARSON on 10/27/24 Normal [facility] CBC W Auto Differential pane l (Bld)on 10-26-2024 Basophils (Bld) [#/Vol] 0.03 10*3/uL Normal <0.11 [facility] Comment on above: Order Comment: Speci men Type: BLOOD SPECIMENOrdering Facility: [facility] Address: [address] [place] [address] Performed By: #### 5 7021-8, 4537-7 ####[facility] [id number] [facility] [id number], [place] [address] [place] Basophils/100 WBC (Bld) 0.3 % Normal [facility] Comment on above: Order Comment: Speci men Type: BLOOD SPECIMENOrdering Facility: [facility] Address: [address] [place] [address] Performed By: #### 5 7021-8, 4536-7 ####[facility] [id number] [place] [address] [place] Differential cell count method Nom (Bld) Auto Normal [facility] Comment on above: Order Comment: Speci men Type: BLOOD SPECIMENOrdering Facility: [facility] Address: [address] [place] [address] Performed By: #### 5 7021-8, 7 ####[facility] [id number] [place] [address] [place] Eosinophils (Bld) [#/Vol] 0.33 10*3/uL Normal <0.46 [facility] Comment on above: Order Comment: Speci men Type: BLOOD SPECIMENOrdering Facility: [facility] Address: [address] [place] [address] Performed By: #### 5 7021-8, 7 ####[facility] [id number] [place] [address] [place] Eosinophils/100 WBC (Bld) 3.2 % Normal [facility] Comment on above: Order Comment: Speci men Type: BLOOD SPECIMENOrdering Facility: [facility] Address: [address] [place] [address] Performed By: #### 5 7021-8, 4536-7 ####[facility] [id number] [place] [address] [place] Erythrocyte distribution width (RBC) [Ratio] 14.3 % Normal 11.5-15.0 [facility] Comment on above: Order Comment: Speci men Type: BLOOD SPECIMENOrdering Facility: [facility] Address: [address] [place] [address] Performed By: #### 5 7021-8, 4536-7 ####[facility] [id number] [place] [address] [place] Hematocrit (Bld) [Volume fraction] 42.4 % Normal 36.0-46.0 [facility] Comment on above: Order Comment: Speci men Type: BLOOD SPECIMENOrdering Facility: [facility] Address: [address] [place] [address] Performed By: #### 5 7021-8, 4536-7 ####[facility] [id number] [place] [address] [place] Hemoglobin (Bld) [Mass/Vol] 14.4 g/dL Normal 11.5-15.5 [facility] Comment on above: Order Comment: Speci men Type: BLOOD SPECIMENOrdering Facility: [facility] Address: [address] [place] [address] Performed By: #### 5 7021-8, 7 ####[facility] [id number] [place] [address] [place] Immature granulocytes (Bld) [#/Vol] 0.09 10*3/uL Normal <0.10 [facility] Comment on above: Order Comment: Speci men Type: BLOOD SPECIMENOrdering Facility: [facility] Address: [address] [place] [address] Performed By: #### 5 7021-8, 7 ####[facility] [id number] [place] [address] [place] Immature granulocytes/100 WBC (Bld) 0.9 % Normal [facility] Comment on above: Order Comment: Speci men Type: BLOOD SPECIMENOrdering Facility: [facility] Address: [address] [place] [address] Performed By: #### 5 7021-8, 7 ####[facility] [id number] [place] [address] [place] Lymphocytes (Bld) [#/Vol] 2.48 10*3/uL Normal 1.00-4.00 [facility] Comment on above: Order Comment: Speci men Type: BLOOD SPECIMENOrdering Facility: [facility] Address: [address] [place] [address] Performed By: #### 5 7021-8, 4536-7 ####[facility] [id number] [place] [address] [place] Lymphocytes/100 WBC (Bld) 24.4 % Normal [facility] Comment on above: Order Comment: Speci men Type: BLOOD SPECIMENOrdering Facility: [facility] Address: [address] [place] [address] Performed By: #### 5 7021-8, 453-7 ####[facility] [id number] [place] [address] [place] MCH (RBC) [Entitic mass] 27.9 pg Normal 26.0-34.0 [facility] Comment on above: Order Comment: Speci men Type: BLOOD SPECIMENOrdering Facility: [facility] Address: [address] [place] [address] Performed By: #### 5 7021-8, 4536-7 ####[facility] [id number] [place] [address] [place] MCHC (RBC) [Mass/Vol] 34.0 g/dL Normal 30.5-36.0 [facility] Comment on above: Order Comment: Speci men Type: BLOOD SPECIMENOrdering Facility: [facility] Address: [address] [place] [address] Performed By: #### 5 7021-8, 4537-7 ####[facility] [id number] [place] [address] [place] MCV (RBC) [Entitic vol] 82.0 fL Normal 80.0-100.0 [facility] Comment on above: Order Comment: Speci men Type: BLOOD SPECIMENOrdering Facility: [facility] Address: [address] [place] [address] Performed By: #### 5 7021-8, 7-7 ####[facility] [id number] [place] [address] [place] Monocytes (Bld) [#/Vol] 0.42 10*3/uL Normal <0.87 [facility] Comment on above: Order Comment: Speci men Type: BLOOD SPECIMENOrdering Facility: [facility] Address: [address] [place] [address] Performed By: #### 5 7021-8, 7-7 ####[facility] [id number] [place] [address] [place] Monocytes/100 WBC (Bld) 4.1 % Normal [facility] Comment on above: Order Comment: Speci men Type: BLOOD SPECIMENOrdering Facility: [facility] Address: [address] [place] [address] Performed By: #### 5 7021-8, 4536-7 ####[facility] [id number] [place] [address] [place] Neutrophils (Bld) [#/Vol] 6.82 10*3/uL Normal 1.45-7.50 [facility] Comment on above: Order Comment: Speci men Type: BLOOD SPECIMENOrdering Facility: [facility] Address: [address] [place] [address] Performed By: #### 5 7021-8, 4536-7 ####[facility] [id number] [place] [address] [place] Neutrophils/100 WBC (Bld) 67.1 % Normal [facility] Comment on above: Order Comment: Speci men Type: BLOOD SPECIMENOrdering Facility: [facility] Address: [address] [place] [address] Performed By: #### 5 7021-8, 4537-7 ####[facility] [id number] [place] [address] [place] Nucleated RBC (Bld) [#/Vol] 10*3/uL Normal <0.01 [facility] Comment on above: Order Comment: Speci men Type: BLOOD SPECIMENOrdering Facility: [facility]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 [Moles/Vol] 3.5 mmol/L Normal 3.5-5.1 [facility] Comment on above: Performed By: #### L 501.2450, L700.6800 #### [facility] [address] [place], [address] Sodium [Moles/Vol] 140 mmol/L Normal 136-145 [facility] Comment on above: Performed By: #### L 501.2450, L700.6800 #### [facility] [address] [place], [address] T PROT 8.0 g/dL Normal 6.4-8.2 [facility] Comment on above: Performed By: #### L 501.2450, L700.6800 #### [facility] [address] [place], [address] Urea nitrogen [Mass/Vol] 10 mg/dL Normal 7-18 [facility] Comment on above: Performed By: #### L 501.2450, L700.6800 #### [facility] [address] [place], [address] Emergency Department Summary on 09-01-2024 Emergency Department Summary [facility] Medical Records Department [address] [place] [address] Emergency Department Summary 09/01/24 MR#: [id number] Acct: [id number] Name: GRETA NADRES Rep #: [id number] : 1990 34 From: Ludin Adams DO [...] her pain a 7 out of 10. PFSH PFS Medical History Kidney stone Cancer Anemia Migraine [...] following commands knew that she was at [facility] years 2023 Skin: Warm, dry, intact Const (more content not included)... Normal [facility] Lipaseon 09-01-2024 Lipase [Catalytic activity/Vol] 55 U/L Normal 13-75 [facility] Comment on above: Result Comment: Plea se note: LIPASE revised reference range effective 23. New Lipase methodology. Expected to produce lower values than the previous assay method. NEW Reference Range: 13 - 75 U/L Performed By: #### L 501.2450, L700.6800 #### [facility] [address] [place], [address] ,Urineon 09-01-2024 Beta HCG ( test) Ql (U) Negative Normal [facility] Comment on above: Order Comment: GREGG CTOR TO SPECIFY Result Comment: Very dilute urine specimens, as indicated by a low specific gravity, may not contain claim representative levels of hCG. If is still suspected, a first morning urine specimen should be collected 48 hours later and tested. Performed By: #### L 501.2450, L700.6800 #### [facility] [address] [place], [address] Urinalysis, Completeon 09-01 CA OX CRYSTAL RARE Normal [facility] Comment on above: Order Comment: GREGG CTOR TO SPECIFY Performed By: #### L 501.2450, L700.6800 #### [facility] [address] [place], [address] WBC 5-10 SEEN Normal 0-5 [facility] Comment on above: Order Comment: GREGG CTOR TO SPECIFY Performed By: #### L 501.2450, L700.6800 #### [facility] [address] [place], [address] BACTERIA 2+ /hpf Normal None Seen [facility] Comment on above: Order Comment: GREGG CTOR TO SPECIFY Performed By: #### L 501.2450, L700.6800 #### [facility] [address] [place], [address] EPI,SQUAMOUS 5-10 SEEN Normal 5-10 [facility] Comment on above: Order Comment: GREGG CTOR TO SPECIFY Performed By: #### L 501.2450, L700.6800 #### [facility] [address] [place], [address] Mucus Ql (Urine sed) 1+ /hpf Normal [facility] Comment on above: Order Comment: COLLE CTOR TO SPECIFY Performed By: #### L 501.2450, L700.6800 #### [facility] [address] [place], [place], [address] RBC 0 SEEN Normal 0-5 [facility] Comment on above: Order Comment: COLLE CTOR TO SPECIFY Performed By: #### L 501.2450, L700.6800 #### [facility] [address] [place], [place], [address] Hepatitis B Surf AB - EMPon 08-21-2024 HEP B Surf Ab Reactive Normal [facility] Comment on above: Result Comment: Non Reactive: Inconsistent with immunity less than <10 mIU/mL Reactive: Consistent with immunity greater than or equal to 10 mIU/mL Performed By: #### L 101.9900, L500.4050, L501.6710, L100.0100 #### [facility] [address] [place], [place], [address] SURGICAL PATHOLOGYOrdered By : Rinku Webb on 06-20-2024 Case Report Surgical Pathology R eport Case: [id number] Authorizing Provider: Nagi Red MD Collected: 06/19/2024 03:07 PM Ordering Location: [facility] Received: 06/19/2024 03:33 PM Pathologist: Rinku Webb MD Specimen: Skin, Excision [facility] Work Phone: Clinical History p6qsnBFpRSVif1zuKBOd bGFuZzEw PsUjZnDhYye6KVBsfhS6Fqz6FYPe RAsreW7zWBIwPKmsP2owycAxuKFq BWHuQUc5wY7duMyquC4zYiEcYcZv CLLbeNNwQ3KubJ6aOPMbWTSyMP1v ZVxwYXIgfQ== [facility] Work Phone: FINAL DIAGNOSIS j3rjrLKrGTFvcVSwZXDw NVxhbnNp OCBomKMrM8RpmvwoZWrxNV7kYC3m vXresMRafSEyQYOiViCwt9rmp017 lLFkb1mbQHLCruqvdKm5yFwdO37s d7J3GpksF91rqZYuLBL1OCFiJAFs mQEpHMBbTNZ8AEQcoTHzX6kbPGIr HX0jbmwkIBujUBuiMPGzaWL8GWVf sSSrA9ZqNUZcOAnsEKVxpdz7GmQw Xf0sdAZvcHluKCsgRGZdKXWnVAqt NEVhRsHbSF4hN9xorczyoNRclFZ5 iAPqbrDiRZUlKQBpoPMgt6ldcjzq qDMxXF1yPBLBUIOoNOPhKdnxup5u ZX2cwBMiYWXdyqKBHOJnU3OqfA3b MDcvMzAvMjAyNCBccGFyfQ== [facility] Work Phone: Gross Description x0lseIDwXUOenPIeKCEh NVxhbnNp KERylLFjO3PmgbbuIGkiHZ2tIO4i dZkinQIwiSTdKEFnXmTuc4opk535 pNKjm1pyVIAZltacfJb8fLlpH53a i7A6PkgfZ69fbTWqKJA5CVDwTAZc mDCaHAErKAS3QHZlpRYuT1inACRv QF9ukkjlFBlmSSezBUOmrWY5ONLe wCNhN4BhSQSbFTyqZVLwdwz0GsBy Fq1fnJCtwXvnNGigPjbzaOkvk8Qe dCBcXGlkIDUxMDAwIFxcbmggXFx0 XYWhAMejjGQwLO1xuWpmUhkyyHvt c1LnkOSaOYfmDRZkXNUlIItpTVSw K0TPYZBxSimwRhHnVpJcUVj3NWy0 WR3AAcPmNBI7WVsiFOb0HXFvJMo3 BBceGP7WHHWuRed4Wil4AwLdTIW3 REjsFEfylAUgRLbti2HfUvUtERIz ZYriofG3XGNtygWimLmfhF7hMlQn QiVUXvAHq2knRQRPfWZxh2caqqrd OPPsiHEqPAkoFmZjMOEhgBOVi2Og GExjrUIgjydpjkZqSFHuB8AnqmJr WBegZCMyzj5orXlsTKhyKIKuLIAq a9HaXU10FPNaVTcowXD2eVBrjDRt WAgeTT24NE2eDPWdbL5jKY1rMYS9 ClU6tWWuMT68ucX6qJWuuZKtyFAd u5PjuN5jHQUjXWO4IKJjVFK2UBXk XXLwpK7yCHvdPFMtbW0mh7IoKmJc ASYoZN0eigV5rfH3GZJeDY2zmEJh SVy2yMVyOBQcbj8yusJ1FLSkDUHx qUJdIANuUAYjs2ArhSRhutPuZZ7j RVF4jkjpKqCuDmSimJCeFvlkV75i IGFuZCBleHRlbmRzIHRvIHdpdGhp wtQkPqXsJ37zsN9btUgdNV2aOHWk w5OdgSTwS7yaYkCAoADvLJRizBRg rvKbwNZ3YWXkbCEpPMKpiI5kAVHx HHLbswaaBBSrpGBxiv6eIZfnUYYd ARSwnFCoRNdlHPVkG4Jnw33iGEmh CC7cRUOmnPDcxYysm5LlkQo4cPZm ZTvqLBX1kbGsOORcUWN7XNX2JYPl IHRpcHMsIEEyIHJlbWFpbmRlciBv FdE0jSIijKAcVDytUNTtyNTiTVca KLBbC6Hsj3CxTLsalZveUJFiv93p pASdLt7xcAJwHSF4YZMwAOIdwPLm BIZLrEslkNPkMDv6UBUdBNOvzJzi BQM0CZ8mJHWxCFUzsUQwIYcrT6ku WJUnEIFekAWyUWUeauHNILHmQs3b XJ9nXAI0JIRgTdK9EIGMUHJtfzft VQAsKNShvSTDr5XzQRtsYFLiB8Jo C8QcedR5i5nrsNgwl6UiuKAdYS4w cGFyfQ== [facility] Work Phone: Performing Lab w2ckzYUsAAQadXWgPpXc MDAwXGFu c8rbVMUgoEYpKoPmHrDkIjIvDnzr oNNfQXEpQzLhe6bre770gXVra0ab FFKgKrH6qIBsGXRsgRFgO154WJSc QFzio7svo8SjQMZvrIZxk4W5KMQG akatoWr2vNlmO46aq3B1TluaN8pp JTUkYARkF5SrVI6nVCCbToo1OUU7 GNP4GYTjMAWpD7ToIY1rQUDovHZp FVp0t6btyLqvZLEhPUZ9s6jzDJpf fbJgLZ9iuf2bcGc3q3cdvgJuBVTi BINtuZNUJMXkU2CbaWtwJq6dmGm5 qTngKyegPKN9Qlv6IG1smb38rbo7 qMthHYEwklvuWuM7PJfuORHwlzdd DAl1JKcxNHZbdRW7KCApyYXaT3Of XMliTD2cbmq5QHD5QKxvJCGsChZ2 CAMjwEXiVAAdjNnxIApfa429JDZ4 LfKyHQ0sQ7Sok8O4iD8tiYZhVNUr fJIvWsTgVUWxpo9tvADbFSitf6Kc MWL0goT8mVYglVCmGPQnGV71Qfrl h5FlOvyym3TzA80qaGN3MRymi4cy JN1pGlF9itVzSXwyu1hynS4xKoD3 BVaiIA7ySS4qRTSdaN4qkvyyLHIo BwFkqjmxOFGaoPtvbsAsDt8vdLfo ANZ6QWmoP8lvmV4aMeU8LDoyS7tk rJ6gGQz9YRqbjJF8YDAixR5hRF7z lofkk0lhEIcwAYjjYMQsbeS4tmPa OYXxhJApP5RttE1hPNIyOA5fowxr h6wfTFM6MGpcMLRcRTS7JbGoXXLu a2Wuang5BlDwq3NwyPPbZYyvG66p e124OPDkeuFuQ0ynsXAvfdyedXVx krmeARjerxQ2ACHoHQAcYAomKSHp XGZzMjBcbGFuZzEwMzNcaGljaFxm IKccHuMlLVAeTYmmM0kbTkJcHiUn AQDEvWZjcv8haLhhJKehxARwbYFi dNZ1fI0uHHTmdbEjta8yXXLtvKMZ kAV6TMvzawQpV4axuavyEGX3ZUMv WZH9H1gaHWRBqbUzZUKkLHJpjFXe YVBRHUL8XHN0TECbUIRCXLStGJE4 ZJE5BDUiBVIrnHWlORFoxzusERVn ZKBmWIuhEQSbVFRtAmCpcSyasR0y HrXoXrJjUIxoYQ4fEQYfO3gokFDm KMAfBBUlN8cqHtErvN0nxIanRTqr ZjJcZnMyMFxsdHJjaCBMYWJvcmF0 v4R2UBtnfVHhlypmZTqubgZhYLft zfhgEOXfDVpeU7xwOuExAOFkpOmx AItxe2QfVOPvJCGeOwFnJFhwQJI4 a3E2HNkjqFBjkwZJZvTIPP8ruHVt algmYH5WWcxcwDOzhltsINqjwtWh JIwdbodaUABtXGyaV0bmZiEiSHUj yGwyRMncp6CoEBVxVGHcLvVycJMf fQ== [facility] Work Phone: [facility] Work Phone: US Lower extremity vein - le fton 05-12-2024 IMPRESSION: Negative study for proximal DVT in the left lower extremity. Negative study for calf DVT in the left lower extremity. Negative study for superficial thrombophlebitis in the imaged segments of the left lower extremity. Can Solderer: EITAN Transcribe Date/Time: May 12 2024 4:00P Dictated by : CRISTELA PARSONS MD This examination was interpreted and the report reviewed and electronically signed by: CRISTELA PARSONS MD on May 12 2024 4:00PM [facility] RAD[facility] * * *Final [...] spontaneous respirophasic flow. Normal response to augmentation. [facility] * * *Final Report* * [...] imaged segments of the left lower extremity. Can Solderer: PSCB Transcribe Date/Time: May 12 2024 4:00P Dictated by : CRISTELA PARSONS MD This examination was interpreted and the report reviewed and electronically signed by: CRISTELA PARSONS MD on May 12 2024 4:00PM EST [facility] Radiology Study observation (narrative) [facility] US Lower extremity vein - le ftOrdered By: Ccf Provider on 05-12-2024 [facility] CHG US SOFT TISSUE HEAD & NE CK REAL TIME IMGE DOCMon 05-04-2024 Radiology Study observation (narrative) [facility] THYROGLOBULIN&THYROGLOBULIN ABon 05-03-2024 Blanket Washer review Cristi (Unsp spec) [Interp] SEE COMMENTS [facility] Comment on above: Thyroglobulin (Tg) l evels [...] testing methods are immunoenzymatic assays manufactured by [employer] and performed on the ForeSee DXI 800. Values obtained from different assay methods or kits may be different and cannot be used interchangeably. The results cannot be interpreted as absolute evidence for the presence or absence of malignant disease. Test Performed by: [address] [address] [employer] Supervisor: Tennille Mejia Ph.D.; CLIA# [id number] Thyroglobulin [Mass/Vol] <0.1 ng/mL [facility] Comment on above: REFERENCE VALUE Athyrotic <0.1 Intact Thyroid <=33 Thyroglobulin Ab IA Qn <1.8 NINF [facility] CHG US SOFT TISSUE HEAD & NE CK REAL TIME [facility]2024 Caitlyn Rivera MD 11:36 PM ULTRASOUND [...] suspicious lesions LEFT LATERAL: No suspicious nodes [facility] TSHon 05-01-2024 Interpretation and review of laboratory results Normal [facility] TSH Qn 1.138 m[IU]/L [facility] US Unspecified body regionOr dered By: Unassigned Pacs on 05-01-2024 [facility] Work Phone: US Unspecified body regionon 05-01-2024 Radiology Study observation (narrative) [facility] STREP A MOLECULAR (POC)on Procedural Control Valid [facility] Strep A (POCT) Negative Negative [facility] STREP A MOLECULAR (POC)on Procedural Control Valid [facility] Strep A (POCT) Negative Negative [facility] CT[facility] Lumbar spine AP and Later al and obliqueon 03-29-2023 IMPRESSION: Negative lumbar spine x-ray. Can Solderer: PSCB Transcribe Date/Time: Mar 29 2023 3:16P Dictated by : SRIDHAR ROSAS MD This examination was interpreted and the report reviewed and electronically signed by: SRIDHAR ROSAS MD on Mar 29 2023 3:17PM [facility] DIVISION OF RADIOLOGY * * *Final Report* * * DATE OF EXAM: May 6 2023 9:00AM WOX [id number] - XR LUMBAR [...] spine are presented. FINDINGS: There are five ybu-jjc-jcrmong lumbar vertebra. No fracture or subluxations are noted. Questionable L3 vertebral body bone island. The disc spaces are well preserved. There is no significant osteophyte formation. DIVISION OF RADIOLOGY Provider, [facility] - 03/29/2023 * * *Final Report* * [...] spine are presented. FINDINGS: There are five qpj-hid-wflqler lumbar vertebra. No fracture or subluxations are noted. Questionable L3 vertebral body bone island. The disc spaces are well preserved. There is no significant osteophyte formation. IMPRESSION IMPRESSION: Negative lumbar spine x-ray. Can Solderer: PSCB Transcribe Date/Time: Mar 29 2023 3:16P Dictated by : SRIDHAR ROSAS MD This examination was interpreted and the report reviewed and electronically signed by: SRIDHAR ROSAS MD on Mar 29 2023 3:17PM EST [facility] XR Lumbar spine AP and Later al and obliqueOrdered By: [facility] Provider on 03-29-2023 [facility] XR Lumbar spine AP and Later al and obliqueon 03-27-2023 Radiology Study observation (narrative) [facility] XR FLUOROSCOPYon 02-12-2023 [facility] HCG ( test) Ql (U)o n 10-23-2022 Beta HCG ( test) Ql (U) Negative Normal NEGATIVE [facility] Comment on above: Performed By: #### 2 [id number] #### [facility] [address] [place] [address] [employer] - Rachelle MULLINS [id number] ABDOMEN FLAT AND UPRIGHTon 1 11-30-2021 ABDOMEN FLAT AND UPRIGHT EXAM: ABDOMEN FLAT AND UPRIGHT HISTORY: Abdominal pain COMPARISON: 05/01/2022 KUB IMPRESSION: No free air or obstruction. Moderate stool mainly in the right colon and sigmoid. Normal [facility] ME US,HEAD/NECK TISSUES,REAL TIMEon 09-16-2022 Caitlyn Rivera MD [...] 0.9 cm LEFT LATERAL: No suspicious nodes [facility] Radiology Study observation (narrative) [facility] TSHon 09-16-2022 Interpretation and review of laboratory results Normal [facility] TSH Qn 3.175 m[IU]/L [facility] US Unspecified body regionOr dered By: Unassigned Pacs on 09-16-2022 [facility] Work Phone: [place] Unspecified body regionon 09-16-2022 Radiology Study observation (narrative) [facility] Comprehensive metabolic 2000 panelon 07-06-2022 Albumin [Mass/Vol] 4.9 g/dL 3.9 - 4.9 g/dL [facility] ALP [Catalytic activity/Vol] 65 U/L 34 - 123 U/L [facility] ALT [Catalytic activity/Vol] 26 U/L 7 - 38 U/L [facility] Anion gap [Moles/Vol] 11 mmol/L 9 - 18 mmol/L [facility] AST [Catalytic activity/Vol] 29 U/L 13 - 35 U/L [facility] Bilirubin [Mass/Vol] 0.5 mg/dL 0.2 - 1 .3 mg/dL [facility] Calcium [Mass/Vol] 9.3 mg/dL 8.5 - 10. 2 mg/dL [facility] Chloride [Moles/Vol] 103 mmol/L 97 - 10 5 mmol/L [facility] CO2 [Moles/Vol] 25 mmol/L 22 - 30 mmol/L [facility] Creatinine [Mass/Vol] 0.86 mg/dL 0.58 - 0.96 mg/dL [facility] Estimated Glomerular Filtration Rate 93 mL/min/1.73m >=60 mL/min/1.73 m [facility] Glucose [Mass/Vol] 86 mg/dL 74 - 99 mg/dL [facility] Potassium [Moles/Vol] 4.0 mmol/L 3.7 - 5.1 mmol/L [facility] Protein [Mass/Vol] 7.9 g/dL 6.3 - 8.0 g/dL [facility] Sodium [Moles/Vol] 139 mmol/L 136 - 144 mmol/L [facility] Urea nitrogen [Mass/Vol] 12 mg/dL 7 - 21 mg/dL [facility] LIPID PANEL, NONFASTINGon Cholesterol [Mass/Vol] 214 mg/dL High <200 mg/dL [facility] HDL Cholesterol, Nonfasting 47 mg/dL >39 mg/dL [facility] LDL Cholesterol, Nonfasting 141 mg/dL High <100 mg/[facility] LDL/HDL Ratio, Nonfasting 3.00 mg/dL High <2.54 mg/dL [facility] Non HDL Cholesterol, Nonfasting 167 mg/dL High <130 mg/dL [facility] Total Chol/HDL Ratio, Nonfasting 4.55 mg/dL <5.10 mg/dL [facility] Triglycerides, Nonfasting 132 mg/dL <150 mg/dL [facility] VLDL Cholesterol, Nonfasting 26 mg/dL <30 mg/dL [facility] ABDOMEN FLATon 05-01-2022 ABDOMEN FLAT EXAMINATION: [...] 3. Nonobstructive bowel pattern No convincing Normal [facility] URINALYSIS with reflex to CU LTUREon 05-01-2022 BACTERIA Normal TRACE [facility] Comment on above: Performed By: #### U AR #### [facility] [address] [place] [address] [employer] Operator - Rachelle WILSONIA [id number] Performed for [facility] [address] [place] [address] Bilirubin Ql (U) Negative Normal NEGATIVE [facility] Comment on above: Performed By: #### U AR #### [facility] [address] [place] [address] [employer] - Rachelle WILSONIA [id number] Performed for [facility] [address] [place] [address] Clarity (U) CLEAR Normal CLEAR [facility] Comment on above: Performed By: #### U AR #### [facility] [address] [place] [address] [facility] [employer] [facility] KATIEIA [id number] Performed for [facility] [address] [place] [address] Color (U) YELLOW Normal YELLOW [facility] Comment on above: Performed By: #### U AR #### [facility] [address] [place] [address] [employer] [facility] CLIA [id number] Performed for [facility] [address] [place] [address] Glucose Ql (U) Negative Normal NEGATIVE [facility] Comment on above: Performed By: #### U AR #### [facility] [address] [place] [address] [employer] Operator - Rachelle Sergio WILSONIA [id number] Performed for [facility] [address] [place] [address] Hemoglobin Ql (U) Negative Normal NEGATIVE [facility] Comment on above: Performed By: #### U AR #### [facility] [address] [place] [address] [employer] - Rachelle MULLINS [id number] Performed for [facility] [address] [place], [place] [address] HMICRO MICROSCOPIC Normal [facility] Comment on above: Performed By: #### U AR #### [facility] [address] [place] [address] [employer] - Rachelle MULLINS [id number] Performed for [facility] [address] [place] [address] Hyaline casts (Urine sed) [#/Area] Normal 0-8 [facility] Comment on above: Performed By: #### U AR #### [facility] [address] [place] [address] [employer] - Rachelle MULLINS [id number] Performed for [facility] [address] [place], [place] [address] KETONE TRACE Abnormal NEGATIVE [facility] Comment on above: Performed By: #### U AR #### [facility] [address] [place] [address] [employer] Operator - Rachelle MULLINS [id number] Performed for [facility] [address] [place], [place] [address] Leukocyte esterase Test strip Ql (U) Negative Normal TRACE [facility] Comment on above: Performed By: #### U AR #### [facility] [address] [place] [address] [employer] Operator - Rachelle MULLINS [id number] Performed for [facility] [address] [place], [place] [address] Nitrite Ql (U) Negative Normal NEGATIVE [facility] Comment on above: Performed By: #### U AR #### [facility] [address] [place] [address] [employer] - Rachelle MULLINS [id number] Performed for [facility] [address] [place] [address] pH (U) 6.0 [pH] Normal 5.5-7.5 [facility] Comment on above: Performed By: #### U AR #### [facility] [address] [place] [address] [employer] Operator - Rachelle MULLINS [id number] Performed for [facility] [address] [place], [place] [address] Protein Ql (U) Negative Normal NEGATIVE [facility] Comment on above: Performed By: #### U AR #### [facility] [address] [place] [address] [employer] Operator - Rachelle MULLINS [id number] Performed for [facility] [address] [place] [address] RBC LM.HPF (Urine sed) [#/Area] Normal 0-4 [facility] Comment on above: Performed By: #### U AR #### [facility] [address] [place] [address] [employer] Operator - Rachelle MULLINS [id number] Performed for [facility] [address] [place], [place] [address] Specific gravity (U) [Rel density] 1.028 Normal 1.010-1.035 [facility] Comment on above: Performed By: #### U AR #### [facility] [address] [place] [address] [employer] Operator - Rachelle MULLINS [id number] Performed for [facility] [address] [place], [place] [address] SQUAMOUS EPITHELIALS Normal 0-5 [facility] Comment on above: Performed By: #### U AR #### [facility] [address] [place] [address] [employer] Operator - Rachelle MULLINS [id number] Performed for [facility] [address] [place], [place] [address] Urobilinogen Qn (U) 1.0 {Herbert'U}/dL Normal <=1.0 [facility] Comment on above: Performed By: #### U AR #### [facility] [address] [place] [address] [employer] Operator - Rachelle MULLINS [id number] Performed for [facility] [address] [place], [place] [address] WBC LM.HPF (Urine sed) [#/Area] Normal 0-5 [facility] Comment on above: Performed By: #### U AR #### [facility] [address] [place], [place] [address] [employer] Operator - Rachelle WILSONIA [id number] Performed for [facility] [address] [place], [place] [address] ME US,HEAD/NECK TISSUES,REAL TIMEon 03-20-2022 Radiology Study observation (narrative) [facility] THYROGLOBULIN&THYROGLOBULIN ABon 03-19-2022 Blanket Washer review Cristi (Unsp spec) [Interp] SEE COMMENTS [facility] Comment on above: Thyroglobulin (Tg) l evels [...] testing methods are immunoenzymatic assays manufactured by [employer] and performed on the ForeSee DXI 800. Values obtained from different assay methods or kits may be different and cannot be used interchangeably. The results cannot be interpreted as absolute evidence for the presence or absence of malignant disease. Test Performed by: [facility] [address] [place] [address] Property Management Supervisor: Iram Cuellar M.D. Ph.D.; CLIA# [id number] Thyroglobulin [Mass/Vol] <0.1 ng/mL [facility] Comment on above: REFERENCE VALUE Athyrotic <0.1 Intact Thyroid <=33 Thyroglobulin Ab IA Qn <1.8 <1.8 IU/mL [facility] No Panel InformationOrdered By: Unassigned Pacs on 03-18-2022 [facility] Work Phone: ME US,HEAD/NECK TISSUES,REAL TIMEon 03-18-2022 Caitlyn Rivera MD [...] 0.2 cm LEFT LATERAL: No suspicious nodes [facility] TSHon 03-18-2022 Interpretation and review of laboratory results Normal [facility] TSH Qn 1.140 m[IU]/L [facility] US Unspecified body regionon 03-18-2022 Radiology Study observation (narrative) [facility] MANDIBLE COMPLETEon 03-11-20 MANDIBLE COMPLETE EXAM: SOFT [...] of the left mandible is noted. Radiopaque zoroastrian associated with the crown of molar within the right mandible are noted. Temporomandibular articulations unremarkable without significant degenerative change. IMPRESSION: 1. Unremarkable soft tissue neck. Prevertebral soft tissues, epiglottis and area of glottic folds appear otherwise unremarkable. 2. Prior dental repair. 3. No acute mandibular fracture or dislocation. Temporomandibular articulations appear otherwise unremarkable. Normal [facility] SOFT TISSUE NECK AP & LATERA [...] of the left mandible is noted. Radiopaque zoroastrian associated with the crown of molar within the right mandible are noted. Temporomandibular articulations unremarkable without significant degenerative change. IMPRESSION: 1. Unremarkable soft tissue neck. Prevertebral soft tissues, epiglottis and area of glottic folds appear otherwise unremarkable. 2. Prior dental repair. 3. No acute mandibular fracture or dislocation. Temporomandibular articulations appear otherwise unremarkable. Normal [facility] CORONAVIRUS ABBOTTon 12-25-2 021 HMOLE TESTING PERFORMED BY MOLECULAR METHOD Normal [facility] Comment on above: Performed By: #### C OVABOT #### [facility] [address] [facility] [place] [address] Tube Laser Operator - [facility] [id number] HPCRA TEST PERFORMED USING MANRIQUEZ ID NOW Normal [facility] Comment on above: Performed By: #### C OVABOT #### [facility] [address] [facility] [place] [address] Tube Laser Operator - [facility] [id number] SARS-CoV-2 (COVID-19) RNA PATRIA+probe Ql (Unsp spec) Detected Abnormal NOT DETECTED [facility] Comment on above: Performed By: #### C OVABOT #### [facility] [address] [place] [address] Tube Laser Operator - Rachelle MULLINS [id number] XR Ankle - left AP and Later al and obliqueon 07-17-2021 IMPRESSION: Small stuart int effusion of the left ankle. No acute fractures seen. Can Solderer: EITAN Transcribe Date/Time: Jul 17 2021 12:37P Dictated by : SRIDHAR ROSAS MD This examination was interpreted and the report reviewed and electronically signed by: SRIDHAR ROSAS MD on Jul 17 2021 12:40PM [facility] DIVISION OF RADIOLOGY * * *Final Report* [...] soft tissue swelling. DIVISION OF RADIOLOGY Provider, [facility] - 07/17/2021 * * *Final Report* [...] the left ankle. No acute fractures seen. Can Solderer: EITAN Transcribe Date/Time: Jul 17 2021 12:37P Dictated by : SRIDHAR ROSAS MD This examination was interpreted and the report reviewed and electronically signed by: SRIDHAR ROSAS MD on Jul 17 2021 12:40PM EST [facility] Radiology Study observation (narrative) [facility] XR Ankle - left AP and Later al and obliqueOrdered By: [facility]cf Provider on 07-17-2021 [facility] Ammoniaon 02-08-2021 Ammonia (P) [Mass/Vol] 27 umol/L Normal 11-51 [facility] Reference Lab Comment on above: Performed By: #### N H3, MG1, CMP, CBCDIF, LI, VPA, XB12F #### [facility]ine [facility] [address] [place] [phone] CBC and Differentialon 02-08 Abs Baso <0.03 Normal <0.11 [facility] Reference Lab Comment on above: Performed By: #### N H3, MG1, CMP, CBCDIF, LI, VPA, XB12F #### [facility] [address] [place] [phone] Abs Thayer 0.56 k/uL Normal <0.87 [facility] Reference Lab Comment on above: Performed By: #### N H3, MG1, CMP, CBCDIF, LI, VPA, XB12F #### [facility] [address] [place] [phone] Abs Neut 8.43 k/uL High 1.45-7.50 [facility] Reference Lab Comment on above: Performed By: #### N H3, MG1, CMP, CBCDIF, LI, VPA, XB12F #### [facility] [address] [place] [phone] Absolute nRBC <0.01 Normal <0.01 [facility] Reference Lab Comment on above: Performed By: #### N H3, MG1, CMP, CBCDIF, LI, VPA, XB12F #### [facility] [address] [place] [address] Basophils/100 WBC (Bld) 0.2 % Normal [facility] Reference Lab Comment on above: Performed By: #### N H3, MG1, CMP, CBCDIF, LI, VPA, XB12F #### [facility] [address] [place] [address] DTYPE ADIFF Normal [facility] Reference Lab Comment on above: Performed By: #### N H3, MG1, CMP, CBCDIF, LI, VPA, XB12F #### [facility] [address] [place] [address] Eosinophils (Bld) [#/Vol] 0.12 10*3/uL Normal <0.46 [facility] Reference Lab Comment on above: Performed By: #### N H3, MG1, CMP, CBCDIF, LI, VPA, XB12F #### [facility] [address] [place] [phone] Eosinophils/100 WBC (Bld) 1.0 % Normal [facility] Reference Lab Comment on above: Performed By: #### N H3, MG1, CMP, CBCDIF, LI, VPA, XB12F #### [facility] [address] [place] [phone] Erythrocyte distribution width (RBC) [Ratio] 13.4 % Normal 11.5-15.0 [facility] Reference [facility] Comment on above: Performed By: #### N H3, MG1, CMP, CBCDIF, LI, VPA, XB12F #### [facility] [address] [place] [address] Hematocrit (Bld) [Volume fraction] 44.6 % Normal 36.0-46.0 [facility] Reference [facility] Comment on above: Performed By: #### N H3, MG1, CMP, CBCDIF, LI, VPA, XB12F #### [facility] [address] [place] [phone] Hemoglobin (Bld) [Mass/Vol] 14.0 g/dL Normal 11.5-15.5 [facility] Reference Lab Comment on above: Performed By: #### N H3, MG1, CMP, CBCDIF, LI, VPA, XB12F #### [facility] [address] [place] [address] Lymphocytes (Bld) [#/Vol] 2.63 10*3/uL Normal 1.00-4.00 [facility] Reference [facility] Comment on above: Performed By: #### N H3, MG1, CMP, CBCDIF, LI, VPA, XB12F #### [facility] [address] [place] [address] Lymphocytes/100 WBC (Bld) 22.4 % Normal [facility] Reference Lab Comment on above: Performed By: #### N H3, MG1, CMP, CBCDIF, LI, VPA, XB12F #### [facility] [address] [place] [address] MCH (RBC) [Entitic mass] 27.9 pG Normal 26.0-34.0 [facility] Reference [facility] Comment on above: Performed By: #### N H3, MG1, CMP, CBCDIF, LI, VPA, XB12F #### [facility] [address] [place] [address] MCHC (RBC) [Mass/Vol] 31.4 g/dL Normal 30.5-36.0 [facility] Reference [facility] Comment on above: Performed By: #### N H3, MG1, CMP, CBCDIF, LI, VPA, XB12F #### [facility] [address] [place] [address] MCV (RBC) [Entitic vol] 88.8 fL Normal 80.0-100.0 [facility] Reference [facility] Comment on above: Performed By: #### N H3, MG1, CMP, CBCDIF, LI, VPA, XB12F #### [facility] [address] [place] [address] Monocytes/100 WBC (Bld) 4.8 % Normal [facility] Reference [facility] Comment on above: Performed By: #### N H3, MG1, CMP, CBCDIF, LI, VPA, XB12F #### [facility] [address] [place] [address] Neutrophils/100 WBC (Bld) 71.6 % Normal [facility] Reference [facility] Comment on above: Performed By: #### N H3, MG1, CMP, CBCDIF, LI, VPA, XB12F #### [facility] [address] [place] [address] NRBCs 0.0 /100 WBC Normal 0 [facility] Reference Lab Comment on above: Performed By: #### N H3, MG1, CMP, CBCDIF, LI, VPA, XB12F #### [facility] [address] [place] [address] Platelet mean volume (Bld) [Entitic vol] 10.9 fL Normal 9.0-12.7 [facility] Reference [facility] Comment on above: Performed By: #### N H3, MG1, CMP, CBCDIF, LI, VPA, XB12F #### [facility] [address] [place] [address] Platelets (Bld) [#/Vol] 278 10*3/uL Normal 150-400 [facility] Reference Lab Comment on above: Performed By: #### N H3, MG1, CMP, CBCDIF, LI, VPA, XB12F #### [facility] [address] [place] [address] RBC (Bld) [#/Vol] 5.02 10*6/uL Normal 3.90-5.20 [facility] Reference Lab Comment on above: Performed By: #### N H3, MG1, CMP, CBCDIF, LI, VPA, XB12F #### [facility] [address] [place], [place] [address] WBC (Bld) [#/Vol] 11.76 10*3/uL High 3.70-11.00 [facility] Reference Lab Comment on above: Performed By: #### N H3, MG1, CMP, CBCDIF, LI, VPA, XB12F #### [facility] [address] [place], [place] [address] Comp Metabolic Panelon 02-08 Albumin [Mass/Vol] 4.5 g/dL Normal 3.9-4.9 [facility] Reference Lab Comment on above: Performed By: #### N H3, MG1, CMP, CBCDIF, LI, VPA, XB12F #### [facility] [address] [place], [place] [address] ALP [Catalytic activity/Vol] 59 U/L Normal 34-123 [facility] Reference Lab Comment on above: Performed By: #### N H3, MG1, CMP, CBCDIF, LI, VPA, XB12F #### [facility] [address] [place] [address] ALT [Catalytic activity/Vol] 9 U/L Normal 7-38 [facility] Reference Lab Comment on above: Performed By: #### N H3, MG1, CMP, CBCDIF, LI, VPA, XB12F #### [facility] [address] [place], [place] [address] Anion gap [Moles/Vol] 13 mmol/L Normal 9-18 [facility] Reference Lab Comment on above: Performed By: #### N H3, MG1, CMP, CBCDIF, LI, VPA, XB12F #### [facility] [address] [place], [place] [address] AST [Catalytic activity/Vol] 18 U/L Normal 13-35 [facility] Reference Lab Comment on above: Performed By: #### N H3, MG1, CMP, CBCDIF, LI, VPA, XB12F #### [facility] [address] [place] [address] Bilirubin Ql (U) 0.2 mg/dL Normal 0.2-1.3 [facility] Reference Lab Comment on above: Performed By: #### N H3, MG1, CMP, CBCDIF, LI, VPA, XB12F #### [facility] [address] [place] [phone] Calcium [Mass/Vol] 9.2 mg/dL Normal 8.5-10.2 [facility] Reference Lab Comment on above: Performed By: #### N H3, MG1, CMP, CBCDIF, LI, VPA, XB12F #### [facility] [address] [place] [phone] Chloride [Moles/Vol] 109 mmol/L High 97-105 [facility] Reference Lab Comment on above: Performed By: #### N H3, MG1, CMP, CBCDIF, LI, VPA, XB12F #### [facility] [address] [place] [phone] CO2 [Moles/Vol] 21 mmol/L Low 22-30 [facility] Reference Lab Comment on above: Performed By: #### N H3, MG1, CMP, CBCDIF, LI, VPA, XB12F #### [facility] [address] [place] [phone] Creatinine [Mass/Vol] 0.75 mg/dL Normal 0.58-0.96 [facility] Reference Lab Comment on above: Performed By: #### N H3, MG1, CMP, CBCDIF, LI, VPA, XB12F #### [facility] [address] [place] [phone] eGFR- Amer. >60 Normal [facility] Reference Lab Comment on above: Performed By: #### N H3, MG1, CMP, CBCDIF, LI, VPA, XB12F #### [facility] [address] [place], [place] [address] GFR/1.73 sq M predicted among non-blacks MDRD (S/P/Bld) [Vol rate/Area] mL/min/{1.73_m2} Normal [facility] Reference Lab Comment on above: Performed By: #### N H3, MG1, CMP, CBCDIF, LI, VPA, XB12F #### [facility] [address] [place], [place] [address] Glucose [Mass/Vol] 63 mg/dL Low 74-99 [facility] Reference Lab Comment on above: Performed By: #### N H3, MG1, CMP, CBCDIF, LI, VPA, XB12F #### [facility] [address] [place] [address] Potassium [Moles/Vol] 3.6 mmol/L Low 3.7-5.1 [facility] Reference Lab Comment on above: Performed By: #### N H3, MG1, CMP, CBCDIF, LI, VPA, XB12F #### [facility] [address] [place] [address] Protein [Mass/Vol] 7.5 g/dL Normal 6.3-8.0 [facility] Reference Lab Comment on above: Performed By: #### N H3, MG1, CMP, CBCDIF, LI, VPA, XB12F #### [facility] [address] [place] [address] Sodium [Moles/Vol] 143 mmol/L Normal 136-144 [facility] Reference Lab Comment on above: Performed By: #### N H3, MG1, CMP, CBCDIF, LI, VPA, XB12F #### [facility] [address] [place] [address] Urea nitrogen [Mass/Vol] 7 mg/dL Normal 7-21 [facility] Reference Lab Comment on above: Performed By: #### N H3, MG1, CMP, CBCDIF, LI, VPA, XB12F #### [facility] [address] [place] [address] Lithiumon 02-08-2021 [place] [Moles/Vol] 0.7 mmol/L Normal 0.6-1.2 [facility] Reference Lab Comment on above: Performed By: #### N H3, MG1, CMP, CBCDIF, LI, VPA, XB12F #### [facility] [address] [address] Magnesiumon 02-08-2021 Magnesium [Mass/Vol] 2.2 mg/dL Normal 1.7-2.3 [facility] Reference Lab Comment on above: Performed By: #### N H3, MG1, CMP, CBCDIF, LI, VPA, XB12F #### [facility] [address] [address] Valproic Acidon 02-08-2021 Valproic Acid 144.8 ug/mL High 50-100 [facility] Reference Lab Comment on above: Performed By: #### N H3, MG1, CMP, CBCDIF, LI, VPA, XB12F #### [facility] [address] [place] [address] Vit B12 / Folate For Ref Lab Use Onlyon 02-08-2021 Cobalamin (Vitamin B12) [Mass/Vol] 502 pg/mL Normal 232-1245 [facility] Comment on above: Performed By: #### N H3, MG1, CMP, CBCDIF, LI, VPA, XB12F #### [facility]ine [facility] [address] [id number] Folate [Mass/Vol] 9.1 ng/mL Normal >4.7 [facility] Reference Lab Comment on above: Performed By: #### N H3, MG1, CMP, CBCDIF, LI, VPA, XB12F #### [facility] [address] [address] Comp Metabolic Panelon 08-14 Albumin [Mass/Vol] 4.2 g/dL Normal 3.9-4.9 [facility] Reference Lab Comment on above: Performed By: #### C MP, LI #### [facility] Routine Lab [address] [place], [place] [address] ALP [Catalytic activity/Vol] 61 U/L Normal 34-123 [facility] Comment on above: Performed By: #### C MP, LI #### [facility] [address] [place], [place] [address] ALT [Catalytic activity/Vol] 10 U/L Normal 7-38 [facility] Comment on above: Performed By: #### C RADHA, LI #### [facility] [address] [place], [place] [address] Anion gap [Moles/Vol] 11 mmol/L Normal 9-18 [facility] Comment on above: Performed By: #### C MP, LI #### [facility] [address] [place], [place] [address] AST [Catalytic activity/Vol] 21 U/L Normal 13-35 [facility] Comment on above: Performed By: #### C MP, LI #### [facility] [address] [place], [place] [address] Bilirubin Ql (U) 0.2 mg/dL Normal 0.2-1.3 [facility] Reference Lab Comment on above: Performed By: #### C MP, LI #### [facility] [address] [place], [place] [address] Calcium [Mass/Vol] 9.1 mg/dL Normal 8.5-10.2 [facility] Reference Lab Comment on above: Performed By: #### C MP, LI #### [facility] [address] [place], [place] [address] Chloride [Moles/Vol] 106 mmol/L High 97-105 [facility] Reference Lab Comment on above: Performed By: #### C RADHA, LI #### [facility]ine [facility] [address] [place], [place] [address] CO2 [Moles/Vol] 23 mmol/L Normal 22-30 [facility] Comment on above: Performed By: #### C RADHA, LI #### [facility] [address] [place], [place] [address] Creatinine [Mass/Vol] 0.75 mg/dL Normal 0.58-0.96 [facility] Comment on above: Performed By: #### C RADHA, LI #### [facility] [address] [place], [place] [address] eGFR- Amer. >60 Normal [facility] Reference Lab Comment on above: Performed By: #### C RADHA, LI #### [facility] [address] [address] GFR/1.73 sq M predicted among non-blacks MDRD (S/P/Bld) [Vol rate/Area] mL/min/{1.73_m2} Normal [facility] Comment on above: Performed By: #### C RADHA, LI #### [facility] [address] [place], [place] [address] Glucose [Mass/Vol] 73 mg/dL Low 74-99 [facility] Reference Lab Comment on above: Performed By: #### C MP, LI #### [facility] [address] [place], [place] [address] Potassium [Moles/Vol] 3.7 mmol/L Normal 3.7-5.1 [facility] Comment on above: Performed By: #### C MP, LI #### [facility] [address] [place], [place] [address] Protein [Mass/Vol] 7.0 g/dL Normal 6.3-8.0 [facility] Reference Lab Comment on above: Performed By: #### C RADHA, LI #### [facility] Routine Lab [address] [place], [place] [address] Sodium [Moles/Vol] 140 mmol/L Normal 136-144 [facility] Reference Lab Comment on above: Performed By: #### C RADHA, LI #### [facility] Routine Lab [address] [place], [place] [address] Urea nitrogen [Mass/Vol] 7 mg/dL Normal 7-21 [facility] Comment on above: Performed By: #### C RADHA, LI #### [facility]ine [facility] [address] [place], [place] [address] Lithiumon 08-14-2020 [place] [Moles/Vol] mmol/L Low 0.6-1.2 [facility] Reference Lab Comment on above: Performed By: #### C RADHA, LI #### [facility]ine [facility] [address] [place], [place] [address] NM THY CA UPTAKEon 0 NM THY [...] NO EVIDENCE FOR DISTANT FUNCTIONAL THYROID METASTASES. Can Solderer: EITAN Transcribe Date/Time: May 01 2020 9:59A Dictated by : IKER SILVA MD This examination was interpreted and the report reviewed and electronically signed by: IKER SILVA MD on May 01 2020 10:32AM EST [id number] [facility] THY CA WBon 05-01-2020 AR THY CA WB * * *Final Report* * * DATE OF EXAM: May 01 2020 9:42AM [facility]VN 0080 - NM THY CA WB / PROCEDURE REASON: Malignant [...] NO EVIDENCE FOR DISTANT FUNCTIONAL THYROID METASTASES. Can Solderer: [facility] Transcribe Date/Time: May 01 2020 9:59A Dictated by : IKER SILVA MD This examination was interpreted and the report reviewed and electronically signed by: IKER SILVA MD on May 01 2020 10:32AM EST [id number] Normal [facility] NM TUMOR SPECTon 05-01-2020 NM TUMOR SPECT * * *Final Report* * * DATE OF EXAM: May 01 2020 10:14AM FVN 0055 - NM TUMOR SPECT / PROCEDURE [...] NO EVIDENCE FOR DISTANT FUNCTIONAL THYROID METASTASES. Can Solderer: [facility] Transcribe Date/Time: May 01 2020 9:59A Dictated by : IKER SILVA MD This examination was interpreted and the report reviewed and electronically signed by: IKER SILVA MD on May 01 2020 10:32AM EST [id number] [facility] Comp Metabolic Panelon 01-24 Albumin [Mass/Vol] 4.7 g/dL Normal 3.9-4.9 [facility] Reference Lab Comment on above: Performed By: #### C VJ GARCIA #### [facility] Routine Lab [address] [place], [place] [address] ALP [Catalytic activity/Vol] 65 U/L Normal 34-123 [facility] Comment on above: Performed By: #### C RADHA, LI #### [facility] [address] [place], [place] [address] ALT [Catalytic activity/Vol] 11 U/L Normal 7-38 [facility] Comment on above: Performed By: #### C MP, LI #### [facility] [address] [place], [place] [address] Anion gap [Moles/Vol] 12 mmol/L Normal 9-18 [facility] Comment on above: Performed By: #### C RADHA, LI #### [facility]ine Lab [address] [place] [address] AST [Catalytic activity/Vol] 21 U/L Normal 13-35 [facility] Lab Comment on above: Performed By: #### C RADHA, LI #### [facility]ine [facility] [address] [id number] Bilirubin Ql (U) 0.3 mg/dL Normal 0.2-1.3 [facility] Reference Lab Comment on above: Performed By: #### C RADHA, LI #### [facility]ine [facility] [address] [place], [place] [address] Calcium [Mass/Vol] 9.4 mg/dL Normal 8.5-10.2 [facility] Reference Lab Comment on above: Performed By: #### C MP, LI #### [facility] [address] [place], [place] [address] Chloride [Moles/Vol] 103 mmol/L Normal 97-105 [facility] Reference Lab Comment on above: Performed By: #### C MP, LI #### [facility]ine [facility] [address] [place], [place] [address] CO2 [Moles/Vol] 23 mmol/L Normal 22-30 [facility] Comment on above: Performed By: #### C RADHA, LI #### [facility] [address] [place], [place] [address] Creatinine [Mass/Vol] 0.86 mg/dL Normal 0.58-0.96 [facility] Comment on above: Performed By: #### C MP, LI #### [facility] [address] [place], [place] [address] eGFR- Amer. >60 Normal [facility] Reference Lab Comment on above: Performed By: #### C RADHA, LI #### [facility]ine [facility] [address] [place], [place] [address] GFR/1.73 sq M predicted among non-blacks MDRD (S/P/Bld) [Vol rate/Area] mL/min/{1.73_m2} Normal [facility] Comment on above: Performed By: #### C RADHA, LI #### [facility] [address] [place], [place] [address] Glucose [Mass/Vol] 77 mg/dL Normal 74-99 [facility] Reference Lab Comment on above: Performed By: #### C RADHA, LI #### [facility] [address] [place], [place] [address] Potassium [Moles/Vol] 4.3 mmol/L Normal 3.7-5.1 [facility] Comment on above: Performed By: #### C MP, LI #### [facility] [address] [place], [place] [address] Protein [Mass/Vol] 7.2 g/dL Normal 6.3-8.0 [facility] Reference Lab Comment on above: Performed By: #### C MP, LI #### [facility]ine [facility] [address] [place], [place] [address] Sodium [Moles/Vol] 138 mmol/L Normal 136-144 [facility] Reference Lab Comment on above: Performed By: #### C MP, LI #### [facility]ine Lab [address] [place], [place] [id number] Urea nitrogen [Mass/Vol] 9 mg/dL Normal 7-21 [facility] Comment on above: Performed By: #### C RADHA, LI #### [facility] Routine Lab [address] [place], [place] [id number] Lithiumon 01-25-2020 [place] [Moles/Vol] 0.9 mmol/L Normal 0.6-1.2 [facility] Reference Lab Comment on above: Performed By: #### C RADHA, LI #### [facility] Routine Lab [address] [place], [place] [address] Vital Signs Date Time Vital Sign Value Performing Clinician Facility 07-18-2025 09:08-0400 Diastolic blood pressure 72 mm[Hg] Nagi Red MD Work Phone: [facility] 07-18-2025 09:08-0400 Systolic blood pressure 114 mm[Hg] Nagi Red MD Work Phone: [facility] 07-18-2025 08:40-0400 Body mass index (BMI) [Ratio] 33.08 kg/m2 Nagi Red MD Work Phone: [facility] 07-18-2025 08:40-0400 Body weight 90.17 kg Nagi Red MD Work Phone: [facility] 07-18-2025 08:40-0400 Heart rate 78 /min Nagi Red MD Work Phone: [facility] 07-18-2025 08:40-0400 Respiratory rate 16 /min Nagi Red MD Work Phone: [facility] 06-27-2025 14:02-0400 Body height 165.1 cm Caitlyn Rivera MD Work Phone: [facility] 06-27-2025 14:02-0400 Body mass index (BMI) [Ratio] 32.7 kg/m2 Caitlyn Rivera MD Work Phone: [facility] 06-27-2025 14:02-0400 Body temperature 98.1 [degF] Caitlyn Rivera MD Work Phone: [facility] 06-27-2025 14:02-0400 Body weight 89.13 kg Caitlyn Rivera MD Work Phone: [facility] 06-27-2025 14:02-0400 Diastolic blood pressure 95 mm[Hg] Caitlyn Rivera MD Work Phone: [facility] 06-27-2025 14:02-0400 Heart rate 80 /min Caitlyn Rivera MD Work Phone: [facility] 06-27-2025 14:02-0400 Respiratory rate 16 /min Caitlyn Rivera MD Work Phone: [facility] 06-27-2025 14:02-0400 SaO2% (BldA) [Mass fraction] 98 % Caitlyn Rivera MD Work Phone: [facility] 06-27-2025 14:02-0400 Systolic blood pressure 159 mm[Hg] Caitlyn Rivera MD Work Phone: [facility] 06-15-2025 12:06-0400 Diastolic blood pressure 100 mm[Hg] Greta Mbanugo DO Work Phone: [facility] 06-15-2025 12:06-0400 Heart rate 91 /min Greta Mbanugo DO Work Phone: [facility] 06-15-2025 12:06-0400 Systolic blood pressure 136 mm[Hg] Greta Mbanugo DO Work Phone: [facility] 06-07-2025 12:58-0400 Body height 165.1 cm Sarah Miramontes APRN.CNP Work Phone: [facility] 06-07-2025 12:58-0400 Diastolic blood pressure 98 mm[Hg] Sarah Dusz CUSTOMER SUPPORT ANALYST.SHELF DRIER OPERATOR Work Phone: [facility] 06-07-2025 12:58-0400 Heart rate 88 /min Sarah Dusz CUSTOMER SUPPORT ANALYST.SHELF DRIER OPERATOR Work Phone: [facility] 06-07-2025 12:58-0400 Systolic blood pressure 159 mm[Hg] Sarah Laurenz CUSTOMER SUPPORT ANALYST.SHELF DRIER OPERATOR Work Phone: [facility] 05-08-2025 09:06-0400 Diastolic blood pressure 94 mm[Hg] Nagi Red MD Work Phone: [facility] 05-08-2025 09:06-0400 Systolic blood pressure 118 mm[Hg] Nagi Red MD Work Phone: [facility] 05-08-2025 08:39-0400 Body mass index (BMI) [Ratio] 32.45 kg/m2 Nagi Red MD Work Phone: [facility] 05-08-2025 08:39-0400 Body temperature 98.01 [degF] Nagi Red MD Work Phone: [facility] 05-08-2025 08:39-0400 Body weight 88.45 kg Nagi Red MD Work Phone: [facility] 05-08-2025 08:39-0400 Heart rate 70 /min Nagi Red MD Work Phone: [facility] 05-08-2025 08:39-0400 Respiratory rate 16 /min Nagi Red MD Work Phone: [facility] 03-02-2025 08:41-0400 Body mass index (BMI) [Ratio] 31.88 kg/m2 Carlie Brownlee APRN.SHELF DRIER OPERATOR Work Phone: [facility] 03-02-2025 08:41-0400 Body weight 86.9 kg Carlie Brownlee APRN.SHELF DRIER OPERATOR Work Phone: [facility] 03-02-2025 08:41-0400 Heart rate 87 /min Carlie Brownlee CUSTOMER SUPPORT ANALYST.SHELF DRIER OPERATOR Work Phone: [facility] 03-02-2025 08:41-0400 SaO2% (BldA) [Mass fraction] 97 % Carlie Brownlee CUSTOMER SUPPORT ANALYST.SHELF DRIER OPERATOR Work Phone: [facility] 01-05-2025 08:19-0500 Body mass index (BMI) [Ratio] 32.21 kg/m2 Tomas Moomaw CUSTOMER SUPPORT ANALYST.SHELF DRIER OPERATOR Work Phone: [facility] 01-05-2025 08:19-0500 Body temperature 98.01 [degF] Tomas Moomaw CUSTOMER SUPPORT ANALYST.SHELF DRIER OPERATOR Work Phone: [facility] 01-05-2025 08:19-0500 Body weight 87.8 kg Tomas Moomaw CUSTOMER SUPPORT ANALYST.SHELF DRIER OPERATOR Work Phone: [facility] 01-05-2025 08:19-0500 Diastolic blood pressure 79 mm[Hg] Tomas Moomaw CUSTOMER SUPPORT ANALYST.SHELF DRIER OPERATOR Work Phone: [facility] 01-05-2025 08:19-0500 Heart rate 84 /min Tomas Moomaw CUSTOMER SUPPORT ANALYST.SHELF DRIER OPERATOR Work Phone: [facility] 01-05-2025 08:19-0500 Respiratory rate 18 /min Tomas Moomaw CUSTOMER SUPPORT ANALYST.SHELF DRIER OPERATOR Work Phone: [facility] 01-05-2025 08:19-0500 SaO2% (BldA) [Mass fraction] 99 % Tomas Moomaw CUSTOMER SUPPORT ANALYST.SHELF DRIER OPERATOR Work Phone: [facility] 01-05-2025 08:19-0500 Systolic blood pressure 115 mm[Hg] Tomas Moomaw CUSTOMER SUPPORT ANALYST.SHELF DRIER OPERATOR Work Phone: [facility] 12-15-2024 13:44-0500 Body mass index (BMI) [Ratio] 32.62 kg/m2 Renard Almodovar CUSTOMER SUPPORT ANALYST.SHELF DRIER OPERATOR Work Phone: [facility] 12-15-2024 13:44-0500 Body weight 88.91 kg Renard Almodovar CUSTOMER SUPPORT ANALYST.SHELF DRIER OPERATOR Work Phone: [facility] 12-15-2024 13:44-0500 Diastolic blood pressure 88 mm[Hg] Renard Almodovar CUSTOMER SUPPORT ANALYST.SHELF DRIER OPERATOR Work Phone: [facility] 12-15-2024 13:44-0500 Heart rate 75 /min Renard Almodovar CUSTOMER SUPPORT ANALYST.SHELF DRIER OPERATOR Work Phone: [facility] 12-15-2024 13:44-0500 Respiratory rate 14 /min Renard Almodovar CUSTOMER SUPPORT ANALYST.SHELF DRIER OPERATOR Work Phone: [facility] 12-15-2024 13:44-0500 Systolic blood pressure 154 mm[Hg] Renard Almodovar CUSTOMER SUPPORT ANALYST.SHELF DRIER OPERATOR Work Phone: [facility] 11-02-2024 09:15-0500 Body mass index (BMI) [Ratio] 30.87 kg/m2 Renard Almodovar CUSTOMER SUPPORT ANALYST.SHELF DRIER OPERATOR Work Phone: [facility] 11-02-2024 09:15-0500 Body weight 85.28 kg Renard Almodovar CUSTOMER SUPPORT ANALYST.SHELF DRIER OPERATOR Work Phone: [facility] 11-02-2024 09:15-0500 Diastolic blood pressure 85 mm[Hg] Renard Almodovar CUSTOMER SUPPORT ANALYST.SHELF DRIER OPERATOR Work Phone: [facility] 11-02-2024 09:15-0500 Heart rate 112 /min Renard Almodovar CUSTOMER SUPPORT ANALYST.SHELF DRIER OPERATOR Work Phone: [facility] 11-02-2024 09:15-0500 Systolic blood pressure 125 mm[Hg] Renard Almodovar CUSTOMER SUPPORT ANALYST.SHELF DRIER OPERATOR Work Phone: [facility] 10-26-2024 08:19-0500 Diastolic blood pressure 100 mm[Hg] Christine Dean PA-C Work Phone: [facility] 10-26-2024 08:19-0500 Heart rate 80 /min Christine Dean PA-C Work Phone: [facility] 10-26-2024 08:19-0500 Systolic blood pressure 140 mm[Hg] Christine Dean PA-C Work Phone: [facility] 10-26-2024 07:18-0500 Body mass index (BMI) [Ratio] 32.02 kg/m2 Christine Dean PA-C Work Phone: [facility] 10-26-2024 07:18-0500 Body temperature 97.39 [degF] Christine Dean PA-C Work Phone: [facility] 10-26-2024 07:18-0500 Body weight 88.45 kg Christine Dean PA-C Work Phone: [facility] 10-26-2024 07:18-0500 Respiratory rate 18 /min Christine Dean PA-C Work Phone: [facility] 10-26-2024 07:18-0500 SaO2% (BldA) [Mass fraction] 99 % Christine Dean PA-C Work Phone: [facility] 10-18-2024 16:16-0500 Body mass index (BMI) [Ratio] 32.08 kg/m2 Bobby Praisler-Wood CUSTOMER SUPPORT ANALYST.SHELF DRIER OPERATOR Work Phone: [facility] 10-18-2024 16:16-0500 Body temperature 98.2 [degF] Bobby Praisler-Wood CUSTOMER SUPPORT ANALYST.SHELF DRIER OPERATOR Work Phone: [facility] 10-18-2024 16:16-0500 Body weight 88.6 kg Bobby Praisler-Wood CUSTOMER SUPPORT ANALYST.SHELF DRIER OPERATOR Work Phone: [facility] 10-18-2024 16:16-0500 Diastolic blood pressure 76 mm[Hg] Bobby Praisler-Wood CUSTOMER SUPPORT ANALYST.SHELF DRIER OPERATOR Work Phone: [facility] 10-18-2024 16:16-0500 Heart rate 77 /min Bobby Praisler-Wood CUSTOMER SUPPORT ANALYST.SHELF DRIER OPERATOR Work Phone: [facility] 10-18-2024 16:16-0500 Respiratory rate 18 /min Bobby Praisler-Wood CUSTOMER SUPPORT ANALYST.SHELF DRIER OPERATOR Work Phone: [facility] 10-18-2024 16:16-0500 SaO2% (BldA) [Mass fraction] 98 % Bobby Praisler-Wood CUSTOMER SUPPORT ANALYST.SHELF DRIER OPERATOR Work Phone: [facility] 10-18-2024 16:16-0500 Systolic blood pressure 118 mm[Hg] Bobby Praisler-Wood CUSTOMER SUPPORT ANALYST.SHELF DRIER OPERATOR Work Phone: [facility] 09-29-2024 15:40-0500 Body mass index (BMI) [Ratio] 31.13 kg/m2 Karen Jones CUSTOMER SUPPORT ANALYST.SHELF DRIER OPERATOR Work Phone: [facility] 09-29-2024 15:40-0500 Body temperature 98.01 [degF] Karen Jones CUSTOMER SUPPORT ANALYST.SHELF DRIER OPERATOR Work Phone: [facility] 09-29-2024 15:40-0500 Body weight 86 kg Karen Jones CUSTOMER SUPPORT ANALYST.SHELF DRIER OPERATOR Work Phone: [facility] 09-29-2024 15:40-0500 Diastolic blood pressure 80 mm[Hg] Karen Jones CUSTOMER SUPPORT ANALYST.SHELF DRIER OPERATOR Work Phone: [facility] 09-29-2024 15:40-0500 Heart rate 60 /min Karen Jones CUSTOMER SUPPORT ANALYST.SHELF DRIER OPERATOR Work Phone: [facility] 09-29-2024 15:40-0500 Respiratory rate 20 /min Karen Jones CUSTOMER SUPPORT ANALYST.SHELF DRIER OPERATOR Work Phone: [facility] 09-29-2024 15:40-0500 SaO2% (BldA) [Mass fraction] 99 % Karen Jones CUSTOMER SUPPORT ANALYST.SHELF DRIER OPERATOR Work Phone: [facility] 09-29-2024 15:40-0500 Systolic blood pressure 131 mm[Hg] Karen Jones CUSTOMER SUPPORT ANALYST.SHELF DRIER OPERATOR Work Phone: [facility] 09-21-2024 10:40-0400 Body mass index (BMI) [Ratio] 31.36 kg/m2 Renard Almodovar CUSTOMER SUPPORT ANALYST.SHELF DRIER OPERATOR Work Phone: [facility] 09-21-2024 10:40-0400 Body weight 86.64 kg Renard Almodovar CUSTOMER SUPPORT ANALYST.SHELF DRIER OPERATOR Work Phone: [facility] 09-21-2024 10:40-0400 Diastolic blood pressure 81 mm[Hg] Renard Almodovar CUSTOMER SUPPORT ANALYST.SHELF DRIER OPERATOR Work Phone: [facility] 09-21-2024 10:40-0400 Heart rate 78 /min Renard Almodovar CUSTOMER SUPPORT ANALYST.SHELF DRIER OPERATOR Work Phone: [facility] 09-21-2024 10:40-0400 Respiratory rate 14 /min Renard Almodovar CUSTOMER SUPPORT ANALYST.SHELF DRIER OPERATOR Work Phone: [facility] 09-21-2024 10:40-0400 Systolic blood pressure 123 mm[Hg] Renard Almodovar CUSTOMER SUPPORT ANALYST.SHELF DRIER OPERATOR Work Phone: [facility] 09-15-2024 07:21-0400 Body mass index (BMI) [Ratio] 31.5 kg/m2 Tori Athy PA-C Work Phone: [facility] 09-15-2024 07:21-0400 Body temperature 97 [degF] Tori Athy PA-C Work Phone: [facility] 09-15-2024 07:21-0400 Body weight 87 kg Tori Athy PA-C Work Phone: [facility] 09-15-2024 07:21-0400 Diastolic blood pressure 91 mm[Hg] Tori Athy PA-C Work Phone: [facility] 09-15-2024 07:21-0400 Heart rate 81 /min Tori Athy PA-C Work Phone: [facility] 09-15-2024 07:21-0400 Respiratory rate 18 /min Tori Athy PA-C Work Phone: [facility] 09-15-2024 07:21-0400 SaO2% (BldA) [Mass fraction] 99 % Tori Athy PA-C Work Phone: [facility] 09-15-2024 07:21-0400 Systolic blood pressure 137 mm[Hg] Tori Athy PA-C Work Phone: [facility] 06-19-2024 13:11-0400 Body mass index (BMI) [Ratio] 30.22 kg/m2 Nagi Red MD Work Phone: [facility] 06-19-2024 13:11-0400 Body weight 83.46 kg Nagi Red MD Work Phone: [facility] 06-19-2024 13:11-0400 Diastolic blood pressure 90 mm[Hg] Nagi Red MD Work Phone: [facility] 06-19-2024 13:11-0400 Heart rate 64 /min Nagi Red MD Work Phone: [facility] 06-19-2024 13:11-0400 Systolic blood pressure 138 mm[Hg] Nagi Red MD Work Phone: [facility] 05-12-2024 13:45-0400 Body mass index (BMI) [Ratio] 30.71 kg/m2 Sakshi Podlogar CUSTOMER SUPPORT ANALYST.SHELF DRIER OPERATOR Work Phone: [facility] 05-12-2024 13:45-0400 Body weight 84.82 kg Sakshi Podlogar CUSTOMER SUPPORT ANALYST.SHELF DRIER OPERATOR Work Phone: [facility] 05-12-2024 13:45-0400 Diastolic blood pressure 70 mm[Hg] Sakshi Podlogar CUSTOMER SUPPORT ANALYST.SHELF DRIER OPERATOR Work Phone: [facility] 05-12-2024 13:45-0400 Heart rate 84 /min Sakshi Podlogar CUSTOMER SUPPORT ANALYST.SHELF DRIER OPERATOR Work Phone: [facility] 05-12-2024 13:45-0400 Respiratory rate 16 /min Sakshi Podlogar CUSTOMER SUPPORT ANALYST.SHELF DRIER OPERATOR Work Phone: [facility] 05-12-2024 13:45-0400 SaO2% (BldA) [Mass fraction] 98 % Sakshi Podlogar CUSTOMER SUPPORT ANALYST.SHELF DRIER OPERATOR Work Phone: [facility] 05-12-2024 13:45-0400 Systolic blood pressure 124 mm[Hg] Sakshi Podlogar CUSTOMER SUPPORT ANALYST.SHELF DRIER OPERATOR Work Phone: [facility] 05-01-2024 11:53-0400 Body height 165.1 cm Caitlyn Rivera MD Work Phone: [facility] 05-01-2024 11:53-0400 Body mass index (BMI) [Ratio] 31.6 kg/m2 Caitlyn Rivera MD Work Phone: [facility] 05-01-2024 11:53-0400 Body temperature 97.5 [degF] Caitlyn Rivera MD Work Phone: [facility] 05-01-2024 11:53-0400 Body weight 86.14 kg Caitlyn Rivera MD Work Phone: [facility] 05-01-2024 11:53-0400 Diastolic blood pressure 79 mm[Hg] Caitlyn Rivera MD Work Phone: [facility] 05-01-2024 11:53-0400 Heart rate 76 /min Caitlyn Rivera MD Work Phone: [facility] 05-01-2024 11:53-0400 Respiratory rate 16 /min Caitlyn Rivera MD Work Phone: [facility] 05-01-2024 11:53-0400 SaO2% (BldA) [Mass fraction] 99 % Caitlyn Rivera MD Work Phone: [facility] 05-01-2024 11:53-0400 Systolic blood pressure 136 mm[Hg] Caitlyn Rivera MD Work Phone: [facility] 04-26-2024 11:22-0400 Body height 166.2 cm Pulm Wstr Work Phone: [facility] 04-26-2024 11:22-0400 Body mass index (BMI) [Ratio] 30.38 kg/m2 Pulm Wstr Work Phone: [facility] 04-26-2024 11:22-0400 Body weight 83.92 kg Pulm Wstr Work Phone: [facility] 04-26-2024 11:22-0400 Heart rate 91 /min Pulm Wstr Work Phone: [facility] 04-26-2024 11:22-0400 Respiratory rate 14 /min Pulm Wstr Work Phone: [facility] 04-26-2024 11:22-0400 SaO2% (BldA) [Mass fraction] 96 % Pulm Wstr Work Phone: [facility] 04-25-2024 11:11-0400 Body mass index (BMI) [Ratio] 30.62 kg/m2 Nagi Red MD Work Phone: [facility] 04-25-2024 11:11-0400 Body weight 83.46 kg Nagi Red MD Work Phone: [facility] 04-25-2024 11:11-0400 Diastolic blood pressure 96 mm[Hg] Nagi Red MD Work Phone: [facility] 04-25-2024 11:11-0400 Heart rate 84 /min Nagi Red MD Work Phone: [facility] 04-25-2024 11:11-0400 Respiratory rate 16 /min Nagi Red MD Work Phone: [facility] 04-25-2024 11:11-0400 Systolic blood pressure 138 mm[Hg] Nagi Red MD Work Phone: [facility] 03-25-2024 08:49-0400 Body mass index (BMI) [Ratio] 30.79 kg/m2 Nagi Red MD Work Phone: [facility] 03-25-2024 08:49-0400 Body weight 83.92 kg Nagi Rde MD Work Phone: [facility] 03-25-2024 08:49-0400 Diastolic blood pressure 88 mm[Hg] Nagi Red MD Work Phone: [facility] 03-25-2024 08:49-0400 Heart rate 115 /min Nagi Red MD Work Phone: [facility] 03-25-2024 08:49-0400 Respiratory rate 12 /min Nagi Red MD Work Phone: [facility] 03-25-2024 08:49-0400 SaO2% (BldA) [Mass fraction] 98 % Nagi Red MD Work Phone: [facility] 03-25-2024 08:49-0400 Systolic blood pressure 132 mm[Hg] Nagi Red MD Work Phone: [facility] 01-11-2024 08:53-0500 Heart rate 88 /min Galilea Bogner PA-C Work Phone: [facility] 01-11-2024 08:42-0500 Body temperature 98.1 [degF] Galilea Bogner PA-C Work Phone: [facility] 01-11-2024 08:42-0500 Body weight 86.18 kg Galilea Bogner PA-C Work Phone: [facility] 01-11-2024 08:42-0500 Diastolic blood pressure 82 mm[Hg] Galilea Bogner PA-C Work Phone: [facility] 01-11-2024 08:42-0500 Respiratory rate 16 /min Galilea Bogner PA-C Work Phone: [facility] 01-11-2024 08:42-0500 SaO2% (BldA) [Mass fraction] 98 % Galilea Bogner PA-C Work Phone: [facility] 01-11-2024 08:42-0500 Systolic blood pressure 124 mm[Hg] Galilea Bogner PA-C Work Phone: [facility] 01-07-2024 11:10-0500 Body temperature 98.2 [degF] Octavio Alcantara PA Work Phone: [facility] 01-07-2024 11:10-0500 Body weight 87.45 kg Krislyn Aberegg PA Work Phone: [facility] 01-07-2024 11:10-0500 Diastolic blood pressure 92 mm[Hg] Krislyn Aberegg PA Work Phone: [facility] 01-07-2024 11:10-0500 Heart rate 80 /min Krislyn Aberegg PA Work Phone: [facility] 01-07-2024 11:10-0500 Respiratory rate 18 /min Krislyn Aberegg PA Work Phone: [facility] 01-07-2024 11:10-0500 SaO2% (BldA) [Mass fraction] 98 % Krislyn Aberegg PA Work Phone: [facility] 01-07-2024 11:10-0500 Systolic blood pressure 127 mm[Hg] Krislyn Aberegg PA Work Phone: [facility] 10-04-2023 08:56-0500 Body temperature 98.1 [degF] Bobby Praisler-Wood CUSTOMER SUPPORT ANALYST.SHELF DRIER OPERATOR Work Phone: [facility] 10-04-2023 08:56-0500 Body weight 88 kg Bobby Praisler-Wood CUSTOMER SUPPORT ANALYST.SHELF DRIER OPERATOR Work Phone: [facility] 10-04-2023 08:56-0500 Diastolic blood pressure 64 mm[Hg] Bobby Praisler-Wood CUSTOMER SUPPORT ANALYST.SHELF DRIER OPERATOR Work Phone: [facility] 10-04-2023 08:56-0500 Heart rate 86 /min Bobby Praisler-Wood CUSTOMER SUPPORT ANALYST.SHELF DRIER OPERATOR Work Phone: [facility] 10-04-2023 08:56-0500 Respiratory rate 20 /min Bobby Praisler-Wood CUSTOMER SUPPORT ANALYST.SHELF DRIER OPERATOR Work Phone: [facility] 10-04-2023 08:56-0500 SaO2% (BldA) [Mass fraction] 98 % Bobby Praisler-Wood CUSTOMER SUPPORT ANALYST.SHELF DRIER OPERATOR Work Phone: [facility] 10-04-2023 08:56-0500 Systolic blood pressure 102 mm[Hg] Bobby Paiz CUSTOMER SUPPORT ANALYST.SHELF DRIER OPERATOR Work Phone: [facility] 06-08-2023 10:25-0400 Body weight 91.35 kg Carlie Brownlee CUSTOMER SUPPORT ANALYST.SHELF DRIER OPERATOR Work Phone: [facility] 06-08-2023 10:25-0400 Heart rate 113 /min Carlie Brownlee CUSTOMER SUPPORT ANALYST.SHELF DRIER OPERATOR Work Phone: [facility] 06-08-2023 10:25-0400 SaO2% (BldA) [Mass fraction] 98 % Carlie Brownlee CUSTOMER SUPPORT ANALYST.SHELF DRIER OPERATOR Work Phone: [facility] 04-27-2023 10:05-0400 Body weight 95.71 kg Renard Almodovar CUSTOMER SUPPORT ANALYST.SHELF DRIER OPERATOR Work Phone: [facility] 04-27-2023 10:05-0400 Diastolic blood pressure 86 mm[Hg] Renard Almodovar CUSTOMER SUPPORT ANALYST.SHELF DRIER OPERATOR Work Phone: [facility] 04-27-2023 10:05-0400 Heart rate 100 /min Renard Almodovar CUSTOMER SUPPORT ANALYST.SHELF DRIER OPERATOR Work Phone: [facility] 04-27-2023 10:05-0400 Respiratory rate 16 /min Renard Almodovar CUSTOMER SUPPORT ANALYST.SHELF DRIER OPERATOR Work Phone: [facility] 04-27-2023 10:05-0400 Systolic blood pressure 122 mm[Hg] Renard Almodovar CUSTOMER SUPPORT ANALYST.SHELF DRIER OPERATOR Work Phone: [facility] 03-03-2023 11:04-0400 Diastolic blood pressure 90 mm[Hg] Nagi Red MD Work Phone: [facility] 03-03-2023 11:04-0400 Systolic blood pressure 116 mm[Hg] Nagi Red MD Work Phone: [facility] 03-03-2023 10:20-0400 Body weight 89.36 kg Nagi Red MD Work Phone: [facility] 03-03-2023 10:20-0400 Heart rate 86 /min Nagi Red MD Work Phone: [facility] 02-12-2023 14:13-0400 Diastolic blood pressure 98 mm[Hg] Juan Daniel Contreras MD Work Phone: [facility] 02-12-2023 14:13-0400 Heart rate 95 /min Juan Daniel Contreras MD Work Phone: [facility] 02-12-2023 14:13-0400 Respiratory rate 16 /min Juan Daniel Contreras MD Work Phone: [facility] 02-12-2023 14:13-0400 SaO2% (BldA) [Mass fraction] 98 % Juan Daniel Contreras MD Work Phone: [facility] 02-12-2023 14:13-0400 Systolic blood pressure 144 mm[Hg] Juan Daniel Contreras MD Work Phone: [facility] 02-12-2023 13:56-0400 Body temperature 97 [degF] Juan Daniel Contreras MD Work Phone: [facility] 02-12-2023 12:59-0400 Body height 165.1 cm Juan Daniel Contreras MD Work Phone: [facility] 02-12-2023 12:59-0400 Body weight 87.54 kg Juan Daniel Contreras MD Work Phone: [facility] 01-22-2023 09:18-0500 Body temperature 97.81 [degF] Nagi Ku CUSTOMER SUPPORT ANALYST.SHELF DRIER OPERATOR Work Phone: [facility] 01-22-2023 09:18-0500 Body weight 87.54 kg Nagi Ku CUSTOMER SUPPORT ANALYST.SHELF DRIER OPERATOR Work Phone: [facility] 01-22-2023 09:18-0500 Diastolic blood pressure 102 mm[Hg] Nagi Ku CUSTOMER SUPPORT ANALYST.SHELF DRIER OPERATOR Work Phone: [facility] 01-22-2023 09:18-0500 Heart rate 94 /min Nagi Ku CUSTOMER SUPPORT ANALYST.SHELF DRIER OPERATOR Work Phone: [facility] 01-22-2023 09:18-0500 Respiratory rate 18 /min Nagi Roamaría elena CUSTOMER SUPPORT ANALYST.SHELF DRIER OPERATOR Work Phone: [facility] 01-22-2023 09:18-0500 SaO2% (BldA) [Mass fraction] 99 % Nagi Roamaría elena CUSTOMER SUPPORT ANALYST.SHELF DRIER OPERATOR Work Phone: [facility] 01-22-2023 09:18-0500 Systolic blood pressure 156 mm[Hg] Nagi Englanddemetrius CUSTOMER SUPPORT ANALYST.SHELF DRIER OPERATOR Work Phone: [facility] 09-16-2022 10:48-0400 Body height 165.1 cm Caitlyn Rivera MD Work Phone: [facility] 09-16-2022 10:48-0400 Body mass index (BMI) [Ratio] 30.92 kg/m2 Caitlyn Rivera MD Work Phone: [facility] 09-16-2022 10:48-0400 Body temperature 98.29 [degF] Caitlyn Rivera MD Work Phone: [facility] 09-16-2022 10:48-0400 Body weight 84.28 kg Caitlyn Rivera MD Work Phone: [facility] 09-16-2022 10:48-0400 Diastolic blood pressure 86 mm[Hg] Caitlyn Rivera MD Work Phone: [facility] 09-16-2022 10:48-0400 Heart rate 88 /min Caitlyn Rivera MD Work Phone: [facility] 09-16-2022 10:48-0400 Respiratory rate 16 /min Caitlyn Rivera MD Work Phone: [facility] 09-16-2022 10:48-0400 SaO2% (BldA) [Mass fraction] 99 % Caitlyn Rivera MD Work Phone: [facility] 09-16-2022 10:48-0400 Systolic blood pressure 121 mm[Hg] Caitlyn Rivera MD Work Phone: [facility] 07-06-2022 10:00-0400 Body temperature 98.71 [degF] Christinedk Dean PA-C Work Phone: [facility] 07-06-2022 10:00-0400 Body weight 84.37 kg Christine Dean PA-C Work Phone: [facility] 07-06-2022 10:00-0400 Diastolic blood pressure 112 mm[Hg] Christine Dean PA-C Work Phone: [facility] 07-06-2022 10:00-0400 Heart rate 80 /min Christine Dean PA-C Work Phone: [facility] 07-06-2022 10:00-0400 Respiratory rate 16 /min Christine Dean PA-C Work Phone: [facility] 07-06-2022 10:00-0400 Systolic blood pressure 142 mm[Hg] Christine Dean PA-C Work Phone: [facility] 06-16-2022 08:40-0400 Body mass index (BMI) [Ratio] 30.99 kg/m2 Osvaldo Tapia MD Work Phone: [facility] 06-16-2022 08:40-0400 Body temperature 97.39 [degF] Osvaldo Tapia MD Work Phone: [facility] 06-16-2022 08:40-0400 Body weight 84.46 kg Osvaldo Tapia MD Work Phone: [facility] 06-16-2022 08:40-0400 Diastolic blood pressure 102 mm[Hg] Osvaldo Tapia MD Work Phone: [facility] 06-16-2022 08:40-0400 Heart rate 81 /min Osvaldo Tapia MD Work Phone: [facility] 06-16-2022 08:40-0400 Respiratory rate 14 /min Osvaldo Tapia MD Work Phone: [facility] 06-16-2022 08:40-0400 SaO2% (BldA) [Mass fraction] 96 % Osvaldo Tapia MD Work Phone: [facility] 06-16-2022 08:40-0400 Systolic blood pressure 141 mm[Hg] Osvaldo Tapia MD Work Phone: [facility] 04-17-2022 10:31-0400 Body height 165.1 cm Karen Land APRN-SHELF DRIER OPERATOR Work Phone: [facility] 04-17-2022 10:31-0400 Body mass index (BMI) [Ratio] 26.63 kg/m2 Karen Land APRN-SHELF DRIER OPERATOR Work Phone: [facility] 04-17-2022 10:31-0400 Body weight 72.58 kg Karen ESPINOSA Work Phone: [facility] 03-26-2022 08:29-0400 Body height 164.5 cm Osvaldo Tapia MD Work Phone: [facility] 03-26-2022 08:29-0400 Body mass index (BMI) [Ratio] 29.42 kg/m2 Osvaldo Tapia MD Work Phone: [facility] 03-26-2022 08:29-0400 Body temperature 99.19 [degF] Osvaldo Tapia MD Work Phone: [facility] 03-26-2022 08:29-0400 Body weight 79.61 kg Osvaldo Tapia MD Work Phone: [facility] 03-26-2022 08:29-0400 Diastolic blood pressure 88 mm[Hg] Osvaldo Tapia MD Work Phone: [facility] 03-26-2022 08:29-0400 Heart rate 82 /min Osvaldo Tapia MD Work Phone: [facility] 03-26-2022 08:29-0400 Respiratory rate 16 /min Osvaldo Tapia MD Work Phone: [facility] 03-26-2022 08:29-0400 SaO2% (BldA) [Mass fraction] 97 % Osvaldo Tapia MD Work Phone: [facility] 03-26-2022 08:29-0400 Systolic blood pressure 131 mm[Hg] Osvaldo Tapia MD Work Phone: [facility] 03-18-2022 11:40-0400 Body height 165.1 cm Caitlyn Rivera MD Work Phone: [facility] 03-18-2022 11:40-0400 Body mass index (BMI) [Ratio] 29.12 kg/m2 Caitlyn Rivera MD Work Phone: [facility] 03-18-2022 11:40-0400 Body temperature 98.1 [degF] Caitlyn Rivera MD Work Phone: [facility] 03-18-2022 11:40-0400 Body weight 79.38 kg Caitlyn Rivera MD Work Phone: [facility] 03-18-2022 11:40-0400 Diastolic blood pressure 78 mm[Hg] Caitlyn Rivera MD Work Phone: [facility] 03-18-2022 11:40-0400 Heart rate 92 /min Caitlyn Rivera MD Work Phone: [facility] 03-18-2022 11:40-0400 Respiratory rate 16 /min Caitlyn Rivera MD Work Phone: [facility] 03-18-2022 11:40-0400 SaO2% (BldA) [Mass fraction] 99 % Caitlyn Rivera MD Work Phone: [facility] 03-18-2022 11:40-0400 Systolic blood pressure 157 mm[Hg] Caitlyn Rivera MD Work Phone: [facility] Encounters Encounter Date Encounter Type Care Provider Facility Start: 09-27-2025 End: 09-27-2025 ambulatory NAGI RED Facility:[facility] Start: 09-26-2025 End: 09-26-2025 ambulatory GRETA TEMPLETON Facility:[id number] Start: 09-11-2025 End: 09-11-2025 ambulatory GRETA TEMPLETON Facility:[id number] Start: 08-16-2025 End: 08-16-2025 ambulatory JUAN DANIEL CONTRERAS Facility:[facility] Start: 08-13-2025 End: 08-13-2025 ambulatory NAGI RED Facility:[facility] Start: 08-08-2025 [facility] Start: 08-06-2025 ambulatory NAGI RED Facili ty:[facility] Start: 08-06-2025 End: 08-06-2025 Subsequent hospital visit by physician [facility] W[facility] 1 Work Phone: Radiology Comment on above: Bilateral nephrolith iasis [N20.0] Start: 08-01-2025 End: 08-01-2025 ambulatory Carlie Brownlee APRN.SHELF DRIER OPERATOR Work Phone: Pain Management Comment on above: August 16 Start: 07-18-2025 End: 07-18-2025 Patient encounter procedure Nagi Red MD Work Phone: [facility] [place] Comment on above: Hypertension, essent ial (Primary Dx); Elevated hemoglobin A1c; Bipolar 1 disorder (HCC); Primary thyroid papillary carcinoma (HCC); Congenital heart defect (HCC); Exercise-induced asthma (HCC) Start: 07-18-2025 End: 07-18-2025 ambulatory NAGI RED Facility:[facility] Start: 07-17-2025 End: 07-17-2025 Admission to same day surgery center Carlie Brownlee SHELF DRIER OPERATOR Work Phone: Pain Management Comment on above: Surgery Start: 07-17-2025 End: 07-17-2025 Telemedicine consultation with patient Carlie Brownlee APRN.SHELF DRIER OPERATOR Work Phone: Pain Management Start: 07-17-2025 End: 07-17-2025 ambulatory Carlie Brownlee KIMBERLEY.SHELF DRIER OPERATOR Work Phone: Pain Management Comment on above: SI (sacroiliac) join t dysfunction (Primary Dx); Radiculopathy, lumbar region; Degeneration of intervertebral disc of lumbar region with discogenic back pain; Degeneration of intervertebral disc of lumbar region with discogenic back pain and lower extremity pain SI (sacroiliac) join t dysfunction (Primary Dx) Start: 07-12-2025 End: 07-12-2025 ambulatory Nagi Red MD Work Phone: Family [facility] [place] Comment on above: Blood sugar levels Start: 07-11-2025 End: 07-11-2025 Telephone encounter [facility] Provider [facility] Comment on above: Appointment Start: 07-01-2025 End: 07-01-2025 Emergency department patient visit Nagi Red Facility:[facility] Start: 06-29-2025 End: 06-29-2025 ambulatory GRETA TEMPLETON Facility:[id number] Start: 06-28-2025 End: 06-28-2025 ambulatory NAGI RED Facility:[facility] Start: 06-27-2025 End: 06-27-2025 Follow-up encounter Caitlyn Rivera MD Work Phone: [facility] Comment on above: Encounter for follow -up (Primary Dx) Start: 06-27-2025 ambulatory CAITLYN RIVERA Facility: [facility] Start: 06-27-2025 End: 06-27-2025 Office outpatient visit 25 minutes Caitlyn Rivera MD Work Phone: Division of Endocrinology Comment on above: Papillary thyroid ca rcinoma (Primary Dx); Postsurgical hypothyroidism; Sialoadenitis Start: 06-27-2025 ambulatory NAGI Tolbert ty:[facility] Start: 06-25-2025 End: 06-25-2025 Telephone encounter Greta Templeton DO Work Phone: [facility] Start: 06-19-2025 End: 06-19-2025 ambulatory GRETA TEMPLETON Facility:[id number] Start: 06-16-2025 End: 06-16-2025 Emergency department patient visit JENALVIN ROBERTSON Facility:[id number] Start: 06-15-2025 End: 06-15-2025 Subsequent hospital visit by physician [address] [place] Comment on above: Bilateral nephrolith iasis [N20.0] Start: 06-15-2025 End: 06-15-2025 Office outpatient visit 25 minutes Greta Templeton DO Work Phone: [facility] Comment on above: Bilateral nephrolith iasis (Primary Dx); Right flank pain; History of ureteroscopy; Abnormal finding on urinalysis Start: 06-15-2025 End: 06-15-2025 ambulatory GRETA TEMPLETON Facility:[id number] Start: 06-12-2025 End: 06-13-2025 Admission to same day surgery center Sarah Miramontes APRN.SHELF DRIER OPERATOR Work Phone: Urology Comment on above: Surgery possibility Start: 06-12-2025 End: 06-13-2025 ambulatory Sarah Miramontes APRN.SHELF DRIER OPERATOR Work Phone: Urology Start: 06-08-2025 End: 06-12-2025 ambulatory Carlie Brownlee APRN.SHELF DRIER OPERATOR Work Phone: Pain Management Start: 06-08-2025 End: 06-12-2025 Patient encounter procedure Carlie Brownlee APRN.SHELF DRIER OPERATOR Work Phone: Pain Management Comment on above: Appointment Start: 06-07-2025 End: 06-07-2025 Telephone encounter Sarah Nhung CUSTOMER SUPPORT ANALYST.SHELF DRIER OPERATOR Work Phone: Urology Comment on above: Medication Problem Start: 06-07-2025 End: 06-07-2025 Office consultation new/estab patient 60 min Sarah Miramontes CUSTOMER SUPPORT ANALYST.SHELF DRIER OPERATOR Work Phone: Urology Comment on above: Kidney stones (Prima ry Dx); Right flank pain; Hematuria, unspecified type Start: 06-07-2025 End: 06-07-2025 ambulatory [facility] Start: 05-23-2025 End: 05-24-2025 ambulatory Nagi Red MD Work Phone: [facility] [place] Comment on above: Kidney stones Start: 05-21-2025 [facility] Start: 05-21-2025 End: 05-21-2025 Subsequent hospital visit by physician [facility] Wstr [address] 2 Work Phone: Radiology Comment on above: Nausea and vomiting, unspecified vomiting type [R11.2] Start: 05-21-2025 End: 05-21-2025 [facility] Start: 05-17-2025 End: 05-18-2025 Telephone encounter Nagi Red MD Work Phone: Family [facility] [place] Comment on above: Patient Update Start: 05-16-2025 End: 05-17-2025 ambulatory [facility] Provider [facility] [address] [facility] Comment on above: Appt Start: 05-16-2025 End: 05-17-2025 E-mail encounter from caregiver [facility] Provider [facility] [place] Start: 05-15-2025 End: 05-15-2025 Chart abstracting Nagi Red MD Work Phone: [facility] [place] Comment on above: Received Outside Med ical Records (Imaging) Start: 05-09-2025 End: 05-17-2025 Telephone encounter Jace Wallis MA [facility] [place] Comment on above: Results Start: 05-08-2025 End: 05-08-2025 Patient encounter procedure Nagi Red MD Work Phone: [facility] [place] Comment on above: SOB (shortness of br eath) (Primary Dx); Dark urine; Nausea; Nausea and vomiting, unspecified vomiting type; RUQ pain; Right flank pain; Gastroparesis; Elevated blood pressure reading without diagnosis of hypertension; Proteinuria, unspecified type Start: 05-08-2025 End: 05-08-2025 ambulatory NAGI RED Facility:[facility] Start: 05-07-2025 End: 05-07-2025 Patient encounter procedure Nagi Red MD Work Phone: [facility] [place] Comment on above: Appointment today Start: 05-07-2025 End: 05-07-2025 Telemedicine consultation with patient Nagi Red MD Work Phone: [facility] [place] Start: 05-07-2025 End: 05-07-2025 ambulatory Nagi Red MD Work Phone: [facility] [place] Comment on above: Patient left before evaluation by physician (Primary Dx) Start: 05-04-2025 End: 05-04-2025 ambulatory Arianne Ramirez RN NURSE INSTALLER TECHNICIAN Comment on above: Patient Update Start: 05-02-2025 ambulatory NAGI RED [facility] ty:[facility] Start: 05-02-2025 End: 05-02-2025 [facility] Comment on above: Bilateral pleural ef fusion [J90] Start: 05-02-2025 End: 05-02-2025 ambulatory NAGI RED Facility:[facility] Start: 05-02-2025 End: 05-07-2025 Follow-up encounter Nagi Red MD Work Phone: [facility] [place] Comment on above: Results Start: 04-26-2025 End: 05-02-2025 Telephone encounter Nagi Red MD Work Phone: [facility] [place] Comment on above: Patient Update Start: 04-24-2025 End: 04-24-2025 ambulatory Nagi Red Facility:[facility] Start: 04-18-2025 End: 04-18-2025 Chart abstracting [facility] Comment on [facility]: ER Discharge Summary Start: 04-17-2025 End: 04-17-2025 Emergency department patient visit Nagi Red Facility:[facility] Start: 04-17-2025 End: 04-17-2025 ambulatory Nagi Red MD Work Phone: [facility] Start: 04-17-2025 End: 04-17-2025 Patient encounter procedure Nagi Red MD Work Phone: [facility] Comment on above: Today's appointment Start: 04-10-2025 End: 04-10-2025 ambulatory Nagi Red Facility[facility] Start: 04-09-2025 End: 04-09-2025 ambulatory Nagi Red Facility:[facility] Start: 04-05-2025 ambulatory Nagi Red Facility :[facility] Start: 04-03-2025 End: 04-03-2025 ambulatory NAGI RED Facility:[facility] Start: 03-22-2025 End: 03-22-2025 ambulatory Nagi Red Facility:[facility] Start: 03-20-2025 End: 03-20-2025 Chart abstracting Nagi Red MD Work Phone: [facility] Comment on above: ER Discharge Summary Start: 03-19-2025 End: 03-20-2025 ambulatory [facility] Start: 03-19-2025 End: 03-20-2025 Subsequent hospital visit by physician Nagi Red MD Work Phone: [facility] Comment on above: Hospital visit Start: 03-19-2025 End: 03-19-2025 Telephone encounter Carlie Brownlee APRN.SHELF DRIER OPERATOR Work Phone: Pain Management Comment on above: Medication Question Start: 03-19-2025 End: 03-19-2025 Emergency department patient visit Nagi Red Facility:[facility] Start: 03-18-2025 End: 03-18-2025 Emergency department patient visit NAGI MD DANIELLA [facility] Start: 03-02-2025 End: 03-02-2025 Orders Only Juan [...] Medicine [place] Comment on above: Procedure ([facility] - gas tric emptying study /) Start: 02-12-2025 End: 02-12-2025 ambulatory [facility] Facility:[facility] Start: 02-08-2025 End: 02-08-2025 Telephone encounter Juan Daniel Contreras MD Work Phone: Pain Management Comment on above: Insurance Authorizat ion (Lumbar MRI Denial) Start: 02-07-2025 End: 02-07-2025 Chart abstracting Jace Wallis MA Family Medicine [place] Comment on above: Results (Outside lab s /) Start: 02-02-2025 End: 02-02-2025 ambulatory Nagi Daniella Facility:[facility] Start: 01-29-2025 End: 01-29-2025 Chart abstracting Nagi Red MD Work Phone: [facility] Comment on above: Outside [id number] Ordered Start: 01-26-2025 End: 01-26-2025 ambulatory [facility] Facility:[facility] Start: 01-19-2025 End: 01-19-2025 ambulatory Nagi Red Facility:[facility] Start: 01-05-2025 End: 01-05-2025 ambulatory NAGI RED Facility:[facility] Start: 01-05-2025 End: 01-05-2025 Patient encounter procedure Tomas Alexis APRN.CNP Work Phone: [facility] Comment on above: Bacterial sinusitis (Primary Dx) Start: 12-15-2024 End: 12-15-2024 Patient encounter procedure Renard Almodovar APRN.CNP Work Phone: Family Medicine [place] Comment on above: Migraine without aur a and without status migrainosus, not intractable (Primary Dx); Mixed headache Start: 12-15-2024 End: 12-15-2024 ambulatory [facility] Facility:[facility] Start: 12-14-2024 End: 12-14-2024 Telemedicine consultation with patient Carlie Brownlee APRN.SHELF DRIER OPERATOR Work Phone: Pain Management Start: 12-14-2024 End: 12-14-2024 ambulatory Carlie Brownlee APRN.SHELF DRIER OPERATOR Work Phone: Pain Management Comment on above: SI (sacroiliac) join t dysfunction (Primary Dx); Radiculopathy, lumbar region; Degeneration of intervertebral disc of lumbar region with discogenic back pain Start: 12-06-2024 End: 12-06-2024 ambulatory Carlie Brownlee APRN.SHELF DRIER OPERATOR Work Phone: Pain Management Comment on above: New back pain Start: 11-09-2024 End: 11-09-2024 ambulatory [facility] Facility:[facility] Start: 11-07-2024 End: 11-07-2024 Admission to same day surgery center Carlie Brownlee APRN.SHELF DRIER OPERATOR Work Phone: Pain Management Comment on above: Surgery Start: 11-07-2024 End: 11-07-2024 ambulatory Carlie Brownlee APRN.SHELF DRIER OPERATOR Work Phone: Pain Management Start: 11-02-2024 End: 11-02-2024 ambulatory Renard Almodovar APRN.SHELF DRIER OPERATOR Work Phone: Family Medicine [place] Comment on above: Work Start: 11-02-2024 End: 11-02-2024 Patient encounter procedure Renard Almoodvar APRN.SHELF DRIER OPERATOR Work Phone: Family Medicine [place] Comment on above: Migraine without aur a and without status migrainosus, not intractable (Primary Dx) Start: 10-27-2024 End: 10-27-2024 Telephone encounter Christine Dena PA-C Work Phone: [facility] Comment on above: Results Start: 10-26-2024 End: 10-26-2024 ambulatory NAGI RED Facility:[facility] Start: 10-26-2024 End: 10-26-2024 Patient encounter procedure Christine Dean PA-C Work Phone: [facility] [place] Comment on above: Migraine without aur a and without status migrainosus, not intractable (Primary Dx); Mixed headache; Hypertension, essential; Daily headache Start: 10-24-2024 End: 10-24-2024 Chart abstracting Jace Wallis MA [facility] Comment on above: ER F/U ([facility] ) Start: 10-23-2024 End: 10-24-2024 Telephone encounter Nagi Red MD Work Phone: [facility] [place] Comment on above: FMLA Paperwork Start: 10-21-2024 End: 10-21-2024 Emergency department patient visit Nagi Red Facility:[facility] Start: 10-21-2024 End: 10-21-2024 ambulatory Naig Red [facility] Start: 10-18-2024 End: 10-18-2024 ambulatory NAGI RED Facility:[facility] Start: 10-18-2024 End: 10-18-2024 Patient encounter procedure Bobby Paiz APRN.SHELF DRIER OPERATOR Work Phone: [facility] Comment on above: Headache, unspecifie d headache type (Primary Dx); Nausea Start: 10-17-2024 End: 10-17-2024 ambulatory [facility] Comment on above: Migraine Start: 10-01-2024 End: 10-01-2024 Telephone encounter Nagi Ku APRN.SHELF DRIER OPERATOR Work Phone: [facility] Comment on above: Results Start: 09-29-2024 End: 09-29-2024 ambulatory NAGI RED Facility:[facility] Start: 09-29-2024 End: 09-29-2024 Patient encounter procedure Karen Jones CUSTOMER SUPPORT ANALYST.SHELF DRIER OPERATOR Work Phone: [facility] Comment on above: Dysuria (Primary Dx) Start: 09-27-2024 End: 09-27-2024 Orders Only Juan Daniel Contreras MD Work Phone: Pain Management Comment on above: SI (sacroiliac) join t dysfunction (Primary Dx) Start: 09-26-2024 End: 09-26-2024 Telephone encounter Carlie Lawrence Aamir CHU.SHELF DRIER OPERATOR Work Phone: Pain Management Comment on above: Orders Start: 09-21-2024 End: 09-21-2024 Patient encounter procedure Renard Regan CUSTOMER SUPPORT ANALYST.SHELF DRIER OPERATOR Work Phone: [facility] Comment on above: Leg cramps (Primary Dx); Encounter for physical examination related to employment Start: 09-18-2024 End: 09-18-2024 ambulatory Carlie Brownlee APRN.SHELF DRIER OPERATOR Work Phone: Pain Management Comment on above: SI (sacroiliac) join t dysfunction (Primary Dx); Radiculopathy, lumbar region; Degeneration of intervertebral disc of lumbar region with discogenic back pain Start: 09-18-2024 End: 09-18-2024 Telemedicine consultation with patient Carlie Brownlee KIMBERLEY.SHELF DRIER OPERATOR Work Phone: Pain Management Start: 09-15-2024 End: 09-15-2024 Patient encounter procedure Tori Michael PA-C Work Phone: [facility] Comment on above: Viral illness (Prima ry Dx) Start: 09-04-2024 End: 09-04-2024 Chart abstracting Nagi Red MD Work Phone: [facility] Comment on above: ER Discharge Summary Start: 09-01-2024 End: 09-01-2024 Emergency department patient visit Ludin Adams Facility:[facility] Start: 08-25-2024 ambulatory Nagi Red [facility] Start: 08-22-2024 End: 08-22-2024 Chart abstracting Nagi Red MD Work Phone: [facility] Comment on above: Outside Drhs-Eya-TBZ Ordered Start: 08-21-2024 ambulatory Health Risk Assessment Facility:[facility] Start: 06-30-2024 End: 06-30-2024 Nursing evaluation of patient and report Mi Nurse Work Phone: [facility] Comment on above: Dermatofibroma (Prim kathya Dx) Start: 06-20-2024 Telephone encounter Nagi Red MD Work Phone: [facility] Comment on above: Results Start: 06-19-2024 End: 06-19-2024 Patient encounter procedure Nagi Red MD Work Phone: [facility] Comment on above: Neoplasm of uncertai n behavior of skin of back (Primary Dx); Dermatofibroma Start: 06-15-2024 End: 06-15-2024 ambulatory Carlie Brownlee APRN.SHELF DRIER OPERATOR Work Phone: Pain Management Comment on above: Spinal stenosis of l umbar region, unspecified whether neurogenic claudication present (Primary Dx); SI (sacroiliac) joint dysfunction; Radiculopathy, lumbar region Start: 06-15-2024 End: 06-15-2024 Telemedicine consultation with patient Carlie Brownlee APRN.SHELF DRIER OPERATOR Work Phone: Pain Management Start: 05-23-2024 Telephone encounter Nagi Red MD Work Phone: [facility] Comment on above: Future Appointment Start: 05-15-2024 ambulatory Carlie Brownlee APRN.SHELF DRIER OPERATOR Work Phone: Pain Management Comment on above: Back imaging Start: 05-12-2024 End: 05-12-2024 Subsequent hospital visit by physician [facility] Comment on above: Pain in left lower l eg [M79.662] Start: 05-12-2024 ambulatory Lizzeth candelario RN NURSE INSTALLER TECHNICIAN Comment on above: US results Leg ultrasound Start: 05-12-2024 End: 05-12-2024 Patient encounter procedure Sakshi Pandey APRN.SHELF DRIER OPERATOR Work Phone: [facility] Comment on above: Pain in left lower l eg (Primary Dx) Start: 05-02-2024 Telephone encounter Jace Wallis MA [facility] Comment on above: Appointment Start: 05-01-2024 End: 05-01-2024 Office outpatient visit 25 minutes Caitlyn Rivera MD Work Phone: Division of Endocrinology Comment on above: Papillary thyroid ca rcinoma (Primary Dx); Postsurgical hypothyroidism Start: 04-29-2024 Telephone encounter Nagi Red MD Work Phone: [facility] Comment on above: Results Start: 04-26-2024 End: 04-26-2024 ambulatory [facility] Work Phone: [facility] Comment on above: Spirometry Visit Start: 04-26-2024 End: 04-26-2024 Patient encounter procedure [facility] Work Phone: [facility] Start: 04-25-2024 Telephone encounter Nagi Red MD Work Phone: [facility] Comment on above: Results Start: 04-25-2024 End: 04-25-2024 Patient encounter procedure Nagi Red MD Work Phone: [facility] Comment on above: Hypertension, essent ial (Primary [...] encounter status Nagi Red MD Work Phone: [facility] Start: 04-19-2024 ambulatory Nagi zhang MD Work Phone: [facility] Comment on above: Blood sugar Start: 04-04-2024 Orders Only Juan Daniel Contreras MD Work Phone: Pain Management Comment on above: SI (sacroiliac) join t dysfunction (Primary Dx) Start: 03-25-2024 End: 03-25-2024 Patient encounter procedure Nagi Red MD Work Phone: [facility] Comment on above: Tinnitus of right ea r (Primary Dx); Right ear pain; Neoplasm of uncertain behavior of skin of back Start: 03-16-2024 End: 03-16-2024 Patient encounter procedure Carlie Brownlee APRN.SHELF DRIER OPERATOR Work Phone: Pain Management Comment on above: SI (sacroiliac) join t dysfunction (Primary Dx); Lumbar degenerative disc disease; Spinal stenosis of lumbar region, unspecified whether neurogenic claudication present Start: 03-07-2024 Chart abstracting Nagi chacon MD Work Phone: [facility] Comment on above: Ext / ABD US Start: 01-11-2024 End: 01-11-2024 Office outpatient visit 15 minutes Galilea Olvera PA-C Work Phone: [facility] Comment on above: Otalgia of both ears (Primary Dx); Flu Start: 01-07-2024 Telephone encounter Jim cerrato APRN.SHELF DRIER OPERATOR Work Phone: [facility] Comment on above: Results Start: 01-07-2024 End: 01-07-2024 Patient encounter procedure Octavio WILCOX Work Phone: [facility] Comment on above: Sore throat (Primary Dx); URI, acute Start: 01-03-2024 Chart abstracting Nagi chacon MD Work Phone: [facility] Comment on above: Outside imaging and ER Start: 11-04-2023 End: 11-04-2023 Patient encounter procedure Brian Griffin Work Phone: Podiatry Comment on above: Plantar wart of left foot (Primary Dx) Start: 10-04-2023 End: 10-04-2023 Patient encounter procedure Bobby Paiz APRN.SHELF DRIER OPERATOR Work Phone: [facility] Comment on above: Sore throat (Primary Dx); Bronchitis; Lower resp. tract infection Start: 09-16-2023 Orders Only Juan Daniel Contreras MD Work Phone: Pain Management Comment on above: SI (sacroiliac) join t dysfunction (Primary Dx) Start: 09-13-2023 End: 09-13-2023 ambulatory Carlie Brownlee APRN.SHELF DRIER OPERATOR Work Phone: Pain Management Comment on above: Spinal stenosis of l umbar region, unspecified whether neurogenic claudication present (Primary Dx); SI (sacroiliac) joint dysfunction; Lumbar degenerative disc disease Start: 09-13-2023 End: 09-13-2023 Telemedicine consultation with patient Carlie Brownlee APRN.SHELF DRIER OPERATOR Work Phone: [facility] Start: 07-08-2023 Orders Only Juan Daniel Contreras MD Work Phone: Pain Management Comment on above: SI (sacroiliac) join t dysfunction (Primary Dx); Sacroiliitis, not elsewhere classified (HCC) Start: 06-08-2023 End: 06-08-2023 Patient encounter procedure Carlie Brownlee APRN.SHELF DRIER OPERATOR Work Phone: Pain Management Comment on above: SI (sacroiliac) join t dysfunction; Lumbar degenerative disc disease Start: 04-28-2023 Telephone encounter Christine fernandez PA-C Work Phone: [facility] [place] Comment on above: Results Start: 04-28-2023 End: 04-28-2023 Subsequent hospital visit by physician Elaine [facility] ([facility]) Work Phone: Cat Scan Comment on above: Adverse effect of tr eatment, initial encounter [T88.9XXA] Start: 04-27-2023 End: 04-27-2023 Patient encounter procedure Renard Almodovar APRN.SHELF DRIER OPERATOR Work Phone: [facility] Comment on above: Post-surgical hypoth yroidism (Primary Dx); Adverse effect of treatment, subsequent encounter; Adverse effect of treatment, initial encounter Start: 04-26-2023 Chart abstracting Nagi chacon MD Work Phone: [facility] Start: 04-05-2023 Telephone encounter Renard mchugh CUSTOMER SUPPORT ANALYST.SHELF DRIER OPERATOR Work Phone: [facility] Comment on above: Results Start: 04-01-2023 Telephone encounter Juan Daniel quiñones MD Work Phone: Pain Management Comment on above: Results Start: 03-29-2023 Telephone encounter Nagi Red MD Work Phone: [facility] Comment on above: ER FU apt Start: 03-27-2023 End: 03-27-2023 Subsequent hospital visit by physician Scarlett [facility] [place] Work Phone: Radiology Comment on above: Lumbar degenerative disc disease [M51.36] Start: 03-03-2023 End: 03-03-2023 Patient encounter procedure Nagi Red MD Work Phone: [facility] Comment on above: Hypertension, essent ial [...] diabetes mellitus Start: 02-16-2023 ambulatory Carlie Brownlee CUSTOMER SUPPORT ANALYST.SHELF DRIER OPERATOR Work Phone: Pain Management Comment on above: Medication Start: 02-12-2023 End: 02-12-2023 Subsequent hospital visit by physician Juan Daniel Contreras MD Work Phone: [facility] Comment on above: SI (sacroiliac) join t dysfunction [M53.3] Start: 02-06-2023 Chart abstracting Nagi chacon MD Work Phone: [facility] Comment on above: Consult (GI ) Start: 01-28-2023 Orders Only Juan Daniel Contreras MD Work Phone: Pain Management Comment on above: Lumbar degenerative disc disease (Primary Dx); SI (sacroiliac) joint dysfunction; Sacroiliitis, not elsewhere classified (HCC) Start: 01-26-2023 Chart abstracting Nagi chacon MD Work Phone: [facility] [place] Comment on above: Outside Cjkz-Tqx-VZV Ordered Start: 01-22-2023 Chart abstracting Nagi chacon MD Work Phone: [facility] Comment on above: ER F/U ([facility]) Start: 01-22-2023 End: 01-22-2023 Office outpatient visit 25 minutes Nagi Ku APRN.SHELF DRIER OPERATOR Work Phone: [facility] Comment on above: Bacterial sinusitis (Primary Dx) Start: 01-06-2023 ambulatory [facility] Provider Pain Manag ement Comment on above: RFA Start: 01-06-2023 E-mail encounter fro m caregiver [facility] Provider [facility] Start: 12-16-2022 ambulatory Nagi zhang MD Work Phone: [facility] [place] Comment on above: High blood sugar Start: 11-25-2022 End: 11-25-2022 ambulatory Carlie Brownlee APRN.SHELF DRIER OPERATOR Work Phone: Pain Management Comment on above: SI (sacroiliac) join t dysfunction; Lumbar degenerative disc disease SI fusion Start: 11-25-2022 E-mail encounter fro m caregiver Carlie Brownlee APRN.SHELF DRIER OPERATOR Work Phone: [facility] Start: 11-25-2022 End: 11-25-2022 Telemedicine consultation with patient Carlie Brownlee APRN.SHELF DRIER OPERATOR Work Phone: [facility] Start: 10-30-2022 Encounter for preprocedural laboratory examination CLAIRE SEPULVEDA DO [facility] Start: 10-23-2022 End: 10-23-2022 ambulatory CLAIRE SEPULVEDA DO Facility:[facility] Start: 10-10-2022 ambulatory Christine WILCOX-C Work Phone: [facility] Start: 10-10-2022 Patient encounter procedure Christine Dean PA-C Work Phone: [facility] [place] Comment on above: Stomach issues refer ral Start: 09-16-2022 End: 09-16-2022 Office outpatient visit 25 minutes Caitlyn Rivera MD Work Phone: Division of Endocrinology Comment on above: Papillary thyroid ca rcinoma (Primary Dx); Postsurgical hypothyroidism; Sialoadenitis of submandibular gland Start: 09-10-2022 End: 09-11-2022 ambulatory CLAIREHECTOR DOMINGUEZAM Facility:[facility] Start: 09-01-2022 Patient encounter status Sergioconcetta ja WILCOX-C Work Phone: [facility] Work Phone: Start: 07-30-2022 ambulatory Carlie Brownlee APRN.CNP Work Phone: Pain Management Comment on above: Medication Start: 07-07-2022 Telephone encounter Christine fernandez PA-C Work Phone: [facility] [place] Comment on above: Results Start: 07-06-2022 End: 07-06-2022 Patient encounter procedure Christine SALEEMC Work Phone: [facility] [place] Comment on above: Hypertension, essent ial (Primary Dx); Weight gain; Primary thyroid papillary carcinoma (HCC); Encounter for lipid screening for cardiovascular disease; Screening for diabetes mellitus Start: 07-01-2022 Orders Only Juan Daniel Contreras MD Work Phone: Pain Management Comment on above: SI (sacroiliac) join t dysfunction (Primary Dx); Sacroiliitis, not elsewhere classified (HCC) Start: 06-24-2022 ambulatory Nagi zhang MD Work Phone: [facility] [place] Comment on above: Pcp Start: 06-16-2022 End: 07-26-2022 Postop follow up visit related to original [...] Start: 05-01-2022 End: 05-01-2022 ambulatory NAGI RED Facility:[facility] Start: 04-17-2022 End: 04-17-2022 Subsequent hospital visit by physician Karen Land APRN-SHELF DRIER OPERATOR Work Phone: [facility] [place] Comment on above: Arrived Start: 04-14-2022 Orders Only Juan Daniel Contreras MD Work Phone: Pain Management Comment on above: SI (sacroiliac) join t dysfunction (Primary Dx); Sacroiliitis, not elsewhere classified (HCC) Start: 04-09-2022 Telephone encounter Juan Daniel quiñones MD Work Phone: Pain Management Comment on above: Appointment (Resched ule Injection ) Start: 04-07-2022 End: 04-07-2022 ambulatory Carlie Brownlee APRN.SHELF DRIER OPERATOR Work Phone: Pain Management Comment on above: SI (sacroiliac) join t dysfunction (Primary Dx); Lumbar degenerative disc disease Start: 04-07-2022 End: 04-07-2022 Telemedicine consultation with patient Carlie Brownlee APRN.SHELF DRIER OPERATOR Work Phone: [facility] Start: 03-26-2022 End: 03-26-2022 Office outpatient new [...] Mireles Jr., MD Work Phone: [facility] Start: 03-05-2022 End: 03-05-2022 ambulatory Capsule Downey Work Phone: [facility] [place] Comment on above: Bloody Stool Start: 03-05-2022 End: 03-05-2022 Patient encounter procedure Capsule Steph Downey Work Phone: [facility] Start: 12-22-2021 End: 12-23-2021 ambulatory DUC BAKER DO Facility:[facility] Start: 11-15-2021 End: 11-15-[address] SENA CARO MD Facility:[facility] Start: 07-17-2021 End: 07-17-2021 Subsequent hospital visit by physician Xr [facility] Work Phone: Radiology Comment on above: Left ankle injury, i nitial encounter [S99.912A] Start: 06-20-2021 End: 06-20-2021 Clinical Support Encounter Caitlyn Rivera MD Work Phone: [facility] Comment on above: Thyroid cancer (Prim kathya Dx) Start: 08-10-2014 End: 07-27-2019 Patient encounter status Carlie Brownlee APRN.CNP Work Phone: [facility] Procedures Date Procedure Procedure Detail Performing Clinician Start: 06-27-2025 US Unspecified body region Caitlyn Rivera MD Work Phone: Start: 06-27-2025 Us soft tissue head & neck real time imge docm Caitlyn Rivera MD Work Phone: Start: 06-15-2025 Ct abdomen & pelvis w/o contrast material Greta Paragbull MCKEON Work Phone: Start: 06-07-2025 BLADDER SCAN Sarah Dus z CUSTOMER SUPPORT ANALYST.SHELF DRIER OPERATOR Work Phone: Start: 06-07-2025 Urnls dip stick/tabl et reagent auto microscopy Sarah Dusz CUSTOMER SUPPORT ANALYST.SHELF DRIER OPERATOR Work Phone: Start: 06-07-2025 Urnls dip stick/tabl et rgnt auto w/o microscopy Sarah Dusz CUSTOMER SUPPORT ANALYST.SHELF DRIER OPERATOR Work Phone: Start: 05-08-2025 Urnls dip stick/tabl et rgnt auto w/o microscopy Nagi Red MD Work Phone: Start: 05-02-2025 Radiologic exam ches t 2 views Nagi Red MD Work Phone: Start: 03-18-2025 Urinalysis NAGI CHACON Comment on above: Result Comment: URIN ALYSIS Performed By: #### [id number] ####[facility],[address] [place] [address] Start: 09-29-2024 Urnls dip stick/tabl et rgnt auto w/o microscopy Minor Jean MD Work Phone: Start: 06-19-2024 SURGICAL PATHOLOGY Melvin Red MD Work Phone: Start: 05-12-2024 Dup-scan xtr veins unilateral/limited study Sakshi Pandey CUSTOMER SUPPORT ANALYST.SHELF DRIER OPERATOR Work Phone: Start: 05-01-2024 US Unspecified body region Caitlyn Rivera MD Work Phone: Start: 05-01-2024 Us soft tissue head & neck real time imge docm Caitlyn Rivera MD Work Phone: Start: 04-26-2024 Brncdilat rspse spmt ry pre&post-brncdilat admn Nagi Red MD Work Phone: Start: 01-07-2024 STREP A MOLECULAR (POC) Octavio WILCOX Work Phone: Start: 10-04-2023 STREP A MOLECULAR (POC) [facility] Provider Start: 04-28-2023 Ct angiography neck w/contrast/noncontrast Renard Almodovar CUSTOMER SUPPORT ANALYST.SHELF DRIER OPERATOR Work Phone: Start: 03-27-2023 Radex spine lumbosac ral minimum 4 views Carlie Brownlee CUSTOMER SUPPORT ANALYST.SHELF DRIER OPERATOR Work Phone: Start: 02-12-2023 Fluoroscopy up to 1 hour physician/qhp time Juan Daniel Contreras MD Work Phone: Start: 09-16-2022 US Unspecified body region Caitlyn Rivera MD Work Phone: Start: 09-16-2022 Us soft tissue head & neck real time imge docm Caitlyn Rivera MD Work Phone: Start: 07-06-2022 Adult depression screening assessment Christine Dean PA-C Work Phone: Start: 03-18-2022 US Unspecified body region Caitlyn Rivear MD Work Phone: Start: 03-18-2022 Us soft tissue head & neck real time imge docjose Rivera MD Work Phone: Start: 07-17-2021 Radex ankle complete minimum 3 views Tori Michael PA-C Work Phone: Start: 07-31-2019 History of thyroidectomy S/P total t hyroidectomy Capsule Goldie Work Phone: Start: 05-20-2017 Adult depression screening assessment Capsule [facility] Work Phone: Plan of Treatment Date Care Activity Detail Author Start: 07-18-2026 Annual PCP Team Chronic Disease Visit Annual PCP Team Chronic Disease Visit [facility] Start: 06-28-2026 Annual PCP Team Chronic Disease Visit Annual PCP Team Chronic Disease Visit [facility] Start: 06-27-2026 Thyroid stimulating hormone measurement TSH [facility] Start: 06-26-2026 End: 06-26-2026 Patient encounter procedure Division of Endocrinology Start: 05-08-2026 Annual PCP Team Chronic Disease Visit Annual PCP Team Chronic Disease Visit [facility] Start: 05-07-2026 Annual PCP Team Chronic Disease Visit Annual PCP Team Chronic Disease Visit [facility] Start: 01-05-2026 BP Controlled (<130/80) BP Controlled (<130/80) [facility] Start: 12-15-2025 Annual PCP Team Chronic Disease Visit Annual PCP Team Chronic Disease Visit [facility] Start: 11-02-2025 Annual PCP Team Chronic Disease Visit Annual PCP Team Chronic Disease Visit [facility] Start: 10-26-2025 Annual PCP Team Chronic Disease Visit Annual PCP Team Chronic Disease Visit [facility] Start: 10-18-2025 BP Controlled (<130/80) BP Controlled (<130/80) [facility] in Start: 09-21-2025 Annual PCP Team Chronic Disease Visit Annual PCP Team Chronic Disease Visit [facility] Start: 09-21-2025 BP Controlled (<130/80) BP Controlled (<130/80) [facility] in Start: 09-21-2025 Covid-19 Vaccine ( season) Covid-19 Vaccine ( season) [facility] Comment on above: Postponed from 07/23/2024 (Declined at t his time) Start: 08-16-2025 End: 08-16-2025 Admission to same day surgery center 08/16/2025 12:49 PM EDT - 08/16/2025 1:32 PM EDT Surgery [facility] [address] [place] [address] Juan Daniel Contreras MD [address] [facility] [id number] [place] [address] RADIOFREQUENCY ABLATION NERVES INNERVATING THE SACROILIAC JOINT W/IMAGE GUIDANCE FLUORO OR CT [facility] Comment on above: RADIOFREQUENCY ABLATION NERVES INNERVATI NG THE SACROILIAC JOINT W/IMAGE GUIDANCE FLUORO OR CT Start: 08-16-2025 End: 08-16-2025 Radiofrequency abltj nrv nrvtg si jt w/img gdn RADIOFREQUENCY ABLATION NERVES INNERVATING THE SACROILIAC JOINT W/IMAGE GUIDANCE FLUORO OR CT SI (sacroiliac) joint dysfunction 08/16/2025 12:49 PM EDT [facility] Start: 08-16-2025 Subsequent hospital visit by physician 08/16/2025 12:49 PM EDT Hospital Encounter [facility] [address] [place] [address] Juan Daniel Contreras MD [address] [facility] [address] SI (sacroiliac) joint dysfunction [M53.3] [facility] Comment on above: SI (sacroiliac) joint dysfunction [M53.3 ] Start: 08-16-2025 End: 08-16-2025 Admission to same day surgery center 08/16/2025 10:25 AM EDT - 08/16/2025 11:08 AM EDT Surgery [facility] End[facility] [address] [place] [address] Juan Daniel Contreras MD [address] [address] RADIOFREQUENCY ABLATION NERVES INNERVATING THE SACROILIAC JOINT W/IMAGE GUIDANCE FLUORO OR CT [facility] Comment on above: RADIOFREQUENCY ABLATION NERVES INNERVATI NG THE SACROILIAC JOINT W/IMAGE GUIDANCE FLUORO OR CT Start: 08-16-2025 End: 08-16-2025 Radiofrequency abltj nrv nrvtg si jt w/img gdn RADIOFREQUENCY ABLATION NERVES INNERVATING THE SACROILIAC JOINT W/IMAGE GUIDANCE FLUORO OR CT SI (sacroiliac) joint dysfunction 08/16/2025 10:25 AM EDT [facility] Start: 08-16-2025 Subsequent hospital visit by physician 08/16/2025 10:25 AM EDT Hospital Encounter [facility] [address] [place] [address] Juan Daniel Contreras MD [address] [address] SI (sacroiliac) joint dysfunction [M53.3] [facility] Comment on above: SI (sacroiliac) joint dysfunction [M53.3 ] Start: 08-13-2025 End: 08-13-2025 Patient encounter procedure 08/13/2025 1:40 PM EDT Office Visit [facility] [address] [place] [address] Greta Templeton DO [address] [place] [address] RBUX/SX FU [facility] Comment on above: RBUX/SX FU Start: 08-10-2025 End: 08-10-2025 Patient encounter procedure 08/10/2025 9:40 AM EDT Office Visit [facility] [address] [place] [address] Nagi Red MD [address] [place], [place] [phone] 3 week f/u HTN/Glucose [facility] [place] Comment on above: 3 week f/u HTN/Glucose Start: 08-06-2025 End: 08-06-2025 Patient encounter procedure [facility] Comment on above: Bilateral nephrolithiasis [N20.0] Start: 07-23-2025 Influenza vaccination Influenza Vaccine (#1) [facility] Start: 07-18-2025 End: 07-18-2025 Patient encounter procedure [facility] Comment on above: 3 wk BP f/u 3 wk BP f/u - elevat ed sugars/A1c results Start: 07-17-2025 End: 07-17-2025 [facility] 07/17/2025 10:30 AM EDT [facility] Pain Management [address] [address] Carlie Brownlee, CUSTOMER SUPPORT ANALYST.SHELF DRIER OPERATOR [address] [place] [address] Rx refill -- update after march surgery Pain Management Comment on above: Rx refill -- update after march surgery Start: 07-12-2025 End: 10-11-2025 Hemoglobin A1c in Blood HEMOGLOBIN A1C Lab Routine Hyperglycemia Expected: 07/12/2025, Expires: 10/11/2025 [facility] Work Phone: Comment on above: Expected: 07/12/2025, Expires: Start: 06-29-2025 End: 06-29-2025 Admission to same day surgery center 06/29/2025 1:15 PM EDT - 06/29/2025 3:30 PM EDT Surgery [facility] [address] [place] [address] Greta Templeton DO [address] [place] [address] [id number] CYSTOSCOPY [facility] Comment on above: CYSTOSCOPY Start: 06-29-2025 End: [...] physician 06/29/2025 1:15 PM EDT Hospital Encounter [facility] [address] [place] [address] Greta Templeton DO [address] [place] [address] Bilateral nephrolithiasis [N20.0], Right flank pain [R10.9] [facility] Comment on above: Bilateral nephrolithiasis [N20.0], Right flank pain [R10.9] Start: 06-28-2025 End: 06-28-2025 Patient encounter procedure 06/28/2025 11:00 AM EDT Office Visit [facility] [address] [place] [address] Nagi Red MD [address] [place], [place] [phone] elevated BP - next day surgery (unsure if needed time for a pre-op) [facility] Comment on above: elevated BP - next day surgery (unsure i f needed time for a pre-op) Start: 06-19-2025 Annual PCP Team Chronic Disease Visit Annual PCP Team Chronic Disease Visit [facility] Start: 06-19-2025 End: 06-19-2025 Patient encounter procedure 06/19/2025 11:00 AM EDT Office Visit [facility] [address] [place] [address] Greta Templeton DO [address] [place] [address] f/u stat ct flank NEED UA [facility] Comment on above: f/u stat ct flank NEED UA Start: 06-15-2025 End: 07-16-2026 CT Abdomen and Pelvis WO contrast CT FLANK WO IVCON Radiology Routine Bilateral nephrolithiasis Expected: 06/15/2025, Expires: 07/16/2026 [facility] Work Phone: Comment on above: Expected: 06/15/2025, Expires: Start: 06-15-2025 End: 06-15-2025 Patient encounter procedure 06/15/2025 11:40 AM EDT Office Visit [facility] [address] [place] [address] Roberta TempletonDO vickie [address] [place] [address] F/U PER SARAH FOR 6MM NON-OBSTRUCTING KIDNEY STONE [facility] Comment on above: F/U PER SARAH FOR 6MM NON-OBSTRUCTING K IDNEY STONE Start: 06-07-2025 End: 06-07-2025 Patient encounter procedure 06/07/2025 1:00 PM EDT Office Visit Urology [address] [place] [address] Sarah Miramontes, CUSTOMER SUPPORT ANALYST.SHELF DRIER OPERATOR [address] [place] [address] Kidney Stones Urology Comment on above: Kidney Stones Start: 05-24-2025 End: 05-24-2025 Patient encounter procedure 05/24/2025 9:40 AM EDT Office Visit [facility] [address] [place] [address] Christine Dean PA-C [address] [place] [address] 2 week BP check [facility] Comment on above: 2 week BP check Start: 05-22-2025 End: 05-22-2025 Patient encounter procedure 05/22/2025 9:20 AM EDT Appointment Cat Scan [address] [place] [address] CT FLANK WO IVCON Cat Scan Comment on above: CT FLANK WO IVCON Start: 05-21-2025 End: 05-21-2025 Patient encounter procedure 05/21/2025 10:00 AM EDT Appointment Radiology [address] [place], [place] [phone] Nausea and vomiting, unspecified vomiting type [R11.2]; Right flank pain [R10.9]; RUQ pain [R10.11]; Renal stones [N20.0] Radiology Comment on above: Nausea and vomiting, unspecified vomitin g type [R11.2]; Right flank pain [R10.9]; RUQ pain [R10.11]; Renal stones [N20.0] Start: 05-14-2025 End: 05-14-2025 Patient encounter procedure 05/14/2025 1:00 PM EDT Office Visit [facility] [address] [place] [address] Nagi Red MD [address] [place], [place] [phone] ER follow continued Stomach pain [facility] Comment on above: ER follow continued Stomach pain Start: 05-12-2025 Annual PCP Team Chronic Disease Visit Annual PCP Team Chronic Disease Visit [facility] Start: 05-12-2025 BP Controlled (<130/80) BP Controlled (<130/80) [facility] Start: 05-08-2025 End: 05-08-2025 Patient encounter procedure 05/08/2025 8:40 AM EDT Office Visit [facility] [address] [place] [address] Nagi Red MD [address] [place], [place] [phone] Stomach pain continued [facility] Comment on above: Stomach pain continued Start: 05-07-2025 End: 05-07-2025 Patient encounter procedure 05/07/2025 12:20 PM EDT Office Visit Division of Endocrinology [address] [facility] [address] [place] [address] Caitlyn Rivera MD [address] [place] [address] [place] [address] Division of Endocrinology Start: 05-07-2025 End: 05-07-2025 Follow-up encounter 05/07/2025 11:00 AM EDT [facility] Kaleb Hardy [address] [place] [address] Nagi Red MD [address] [place], [place] [phone] Follow up-test results Family [facility] Comment on above: Follow up-test results Start: 05-01-2025 Thyroid stimulating hormone measurement TSH [facility] Start: 05-01-2025 End: 07-31-2025 Thyrotropin [Units/volume] in Serum or Plasma THYROID STIMULATING HORMONE Lab Routine Bilateral pleural effusion Post-surgical hypothyroidism Expected: 05/01/2025, Expires: 07/31/2025 [facility] Work Phone: Comment on above: Expected: 05/01/2025, Expires: Start: 05-01-2025 End: 07-31-2025 Thyroxine (T4) free [Mass/volume] in Serum or Plasma T4 FREE/FREE THYROXINE Lab Routine Bilateral pleural effusion Post-surgical hypothyroidism Expected: 05/01/2025, Expires: 07/31/2025 [facility] Comment on above: Expected: 05/01/2025, Expires: Start: 04-25-2025 Annual PCP Team Chronic Disease Visit Annual PCP Team Chronic Disease Visit [facility] Start: 04-03-2025 End: 04-03-2025 Admission to same day surgery center [facility] Surgery Comment on above: RADIOFREQUENCY ABLATION NERVES INNERVATI NG THE SACROILIAC JOINT W/IMAGE GUIDANCE FLUORO OR CT Start: 04-03-2025 End: 04-03-2025 Radiofrequency abltj nrv nrvtg si jt w/img gdn ME OR Start: 04-03-2025 Subsequent hospital visit by physician [facility] Surgery Comment on above: SI (sacroiliac) joint dysfunction [M53.3 ] Start: 03-30-2025 End: 03-30-2025 Patient encounter procedure 03/30/2025 11:20 AM EDT Office Visit [facility] K[facility] [address] [place] [address] Nagi Red MD [address] [place] [address] Er follow up Family [facility] Comment on above: Er follow up Start: 03-25-2025 Annual PCP Team Chronic Disease Visit Annual PCP Team Chronic Disease Visit [facility] Start: 03-19-2025 Tetanus vaccination TETANUS [facility] Start: 03-19-2025 Urine microalbumin profile [facility] Start: 02-26-2025 End: 02-26-2025 Patient encounter procedure 02/26/2025 7:45 AM EDT Office Visit Pain Management [address] [address] Juan Daniel Contreras MD [address] [facility] [place] [address] Cervical/Thoracic Pain (New Pain, Established Patient) Pain [...] EST Office Visit Pain Management [address] [address] Juan Daniel Contreras MD [address] [facility] [place] [address] Cervical/Thoracic Pain (New Pain, Established Patient) Pain Management Comment on above: Cervical/Thoracic Pain (New Pain, Establ ished Patient) Start: 12-29-2024 End: 12-29-2024 Patient encounter procedure 12/29/2024 1:30 PM EST Appointment Rad[facility] [address] [facility] [place], [place] [phone] Migraine without aura and without status migrainosus, not intractable [G43.009] Radiology Comment on above: Migraine without aura and without status migrainosus, not intractable [G43.009] Start: 12-15-2024 End: 12-15-2024 Patient encounter procedure 12/15/2024 1:40 PM EST Office Visit [facility] [address] [place], [place] [phone] Renard Almodovar, KIMBERLEY.SHELF DRIER OPERATOR [address] [place], [place] [phone] 3 week med follow up [facility] Comment on above: 3 week med follow up Start: 11-24-2024 End: 11-24-2024 Patient encounter procedure 11/24/2024 1:40 PM EST Office Visit [facility] [address] [place], [place] [phone] Renard Almodovar, CUSTOMER SUPPORT ANALYST.SHELF DRIER OPERATOR [address] [place], [place] [phone] 3 week med follow up [facility] Comment on above: 3 week med follow up Start: 11-23-2024 BP Controlled (<130/80) BP Controlled (<130/80) [facility] in Start: 11-09-2024 End: 11-09-2024 Admission to same day surgery center [facility] Surgery Comment on above: RADIOFREQUENCY ABLATION NERVES INNERVATI NG THE SACROILIAC JOINT W/IMAGE GUIDANCE FLUORO OR CT Start: 11-09-2024 End: 11-09-2024 Radiofrequency abltj nrv nrvtg si jt w/img gdn ME OR Start: 11-09-2024 Subsequent hospital visit by physician [facility] Surgery Comment on above: SI (sacroiliac) joint dysfunction [M53.3 ] Start: 11-09-2024 End: 11-09-2024 Admission to same day surgery center 11/09/2024 9:17 AM EST - 11/09/2024 10:00 AM EST Surgery [facility] Surgery [address] [place] [address] Juan Daniel Contreras MD [address] [facility] [place] [address] RADIOFREQUENCY ABLATION NERVES INNERVATING THE SACROILIAC JOINT W/IMAGE GUIDANCE FLUORO OR CT [facility] Surgery Comment on above: RADIOFREQUENCY ABLATION [...] physician 11/09/2024 9:17 AM EST Hospital Encounter [facility] Surgery [address] [place] [address] Juan Daniel Contreras MD [address] [facility] [place] [address] SI (sacroiliac) joint dysfunction [M53.3] [facility] Surgery Comment on above: SI (sacroiliac) joint dysfunction [M53.3 ] Start: 11-01-2024 End: 11-01-2024 Patient encounter procedure 11/01/2024 3:20 PM EST Office Visit [facility] [place] [address] [place], [place] [phone] Christine Dean PA-C [address] [place], [place] [phone] f/u migraines [facility] [place] Comment on above: f/u migraines Start: 10-26-2024 End: 01-25-2025 C reactive protein [Mass/volume] in Serum or Plasma [facility] Comment on above: Expected: 10/26/2024, Expires: Start: 10-26-2024 End: 01-25-2025 CBC W Auto Differential panel - Blood [facility] Work Phone: Comment on above: Expected: 10/26/2024, Expires: Start: 10-26-2024 End: 01-25-2025 Comprehensive metabolic 2000 panel - Serum or Plasma [facility] Comment on above: Expected: 10/26/2024, Expires: Start: 10-26-2024 End: 01-25-2025 Erythrocyte sedimentation rate [facility] Comment on above: Expected: 10/26/2024, Expires: Start: 10-26-2024 End: 01-25-2025 Magnesium [Mass/volume] in Serum or Plasma [facility] Comment on above: Expected: 10/26/2024, Expires: Start: 10-26-2024 End: 01-25-2025 Thyrotropin [Units/volume] in Serum or Plasma [facility] Comment on above: Expected: 10/26/2024, Expires: Start: 10-26-2024 End: 10-26-2024 Patient encounter procedure Family [facility] Comment on above: Physical Physical-see phone n ote 10/23. Discuss migraine medication Start: 10-04-2024 BP Controlled (<130/80) BP Controlled (<130/80) [facility] Start: 09-21-2024 End: 12-21-2024 Comprehensive metabolic 2000 panel - Serum or Plasma COMPREHENSIVE METABOLIC PANEL Lab Routine Leg cramps Expected: 09/21/2024, Expires: 12/21/2024 [facility] Work Phone: Comment on above: Expected: 09/21/2024, Expires: Start: 09-21-2024 End: 12-21-2024 Magnesium [Mass/volume] in Serum or Plasma MAGNESIUM Lab Routine Leg cramps Expected: 09/21/2024, Expires: 12/21/2024 [facility] Comment on above: Expected: 09/21/2024, Expires: Start: 09-21-2024 End: 09-21-2024 Patient encounter procedure 09/21/2024 8:00 AM EDT Office Visit Family [facility] [address] [facility] [address] Christine Dean PA-C [address] [place], [place] [phone] Physical [facility] Comment on above: Physical Start: 09-18-2024 End: 09-18-2024 Admission to same day surgery center 09/18/2024 3:30 PM EDT [facility] Pain Management [address] [phone] Carlie Brownlee APRN.SHELF DRIER OPERATOR [address] [place] [address] Medication renew discuus surgery for October Pain Management Comment on above: Medication renew discuus surgery for Oct emb Start: 08-16-2024 End: 08-16-2024 Patient encounter procedure 08/16/2024 10:00 AM EDT Office Visit [facility] [address] [phone] Jyoti Rose MD [address] [place], [place] [phone] Elevated LALI. pe [facility] [place] Comment on above: Elevated LALI. pe Start: 08-14-2024 End: 08-14-2024 Patient encounter procedure 08/14/2024 1:00 PM EDT Office Visit Urology [address] [place], [place] [phone] Jose Antonio Mane APRN.SHELF DRIER OPERATOR, DNP [address] [place], [place] [phone] Renal stones [N20.0] Urology Comment on above: Renal stones [N20.0] Start: 07-23-2024 Covid-19 Vaccine ( season) Covid-19 Vaccine ( season) [facility] Start: 07-23-2024 Influenza vaccination [facility] Start: 06-30-2024 End: 06-30-2024 Nursing evaluation of patient and report 06/30/2024 10:00 AM EDT Nurse Visit Family [facility] [address] [place] [address] Nurse, [place] [address] [facility] [place] [phone] Suture removal on left shoulder [facility] Comment on above: Suture removal on left shoulder Start: 06-19-2024 End: 06-19-2024 Patient encounter procedure 06/19/2024 1:20 PM EDT Office Visit [facility] [address] [place], [place] [phone] Nagi Red MD [address] [place] [address] Excisional biospy 40 minute appt rj [facility] Comment on above: Excisional biospy 40 minute appt rj Start: 06-13-2024 End: 06-13-2024 Admission to same day surgery center 06/13/2024 11:26 AM EDT - 06/13/2024 12:09 PM EDT Surgery [facility] Surgery [address] [place] [address] Juan Daniel Contreras MD [address] [facility] [place] [address] RADIOFREQUENCY ABLATION NERVES INNERVATING THE SACROILIAC JOINT W/IMAGE GUIDANCE [facility] Comment on above: RADIOFREQUENCY ABLATION NERVES INNERVATI NG THE SACROILIAC JOINT W/IMAGE GUIDANCE Start: 06-13-2024 End: 06-13-2024 Radiofrequency abltj nrv nrvtg si jt w/img gdn RADIOFREQUENCY ABLATION NERVES INNERVATING THE SACROILIAC JOINT W/IMAGE GUIDANCE SI (sacroiliac) joint dysfunction 06/13/2024 11:26 AM EDT ME OR Start: 06-13-2024 Subsequent hospital visit by physician 06/13/2024 11:26 AM EDT Hospital Encounter [facility] Surgery [address] [place] [address] Juan Daniel Contreras MD [address] [facility] [place] [address] SI (sacroiliac) joint dysfunction [M53.3] [facility] Surgery Comment on above: SI (sacroiliac) joint dysfunction [M53.3 ] Start: 06-05-2024 End: 06-05-2024 Patient encounter procedure 06/05/2024 10:20 AM EDT Office Visit [facility] [address] [place], [place] [address] Renard Almodovar APRN.SHELF DRIER OPERATOR [address] [place], [place] [phone] 4 week follow up HTN [facility] Comment on above: 4 week follow up HTN Start: 05-23-2024 End: 05-23-2024 Patient encounter procedure 05/23/2024 1:40 PM EDT Office Visit [facility] [address] [place] [phone] Nagi Red MD [address] [place] [address] excisional bx [facility] Comment on above: excisional bx Start: 05-23-2024 End: 05-23-2024 Admission to same day surgery center 05/23/2024 10:53 AM EDT - 05/23/2024 11:36 AM EDT Surgery [facility] Surgery [address] [place] [address] Juan Daniel Contreras MD [address] [place] [address] [place] [address] RADIOFREQUENCY ABLATION NERVES INNERVATING THE SACROILIAC JOINT W/IMAGE GUIDANCE [facility] Comment on above: RADIOFREQUENCY ABLATION NERVES INNERVATI NG THE SACROILIAC JOINT W/IMAGE GUIDANCE Start: 05-23-2024 End: 05-23-2024 Radiofrequency abltj nrv nrvtg si jt w/img gdn RADIOFREQUENCY ABLATION NERVES INNERVATING THE SACROILIAC JOINT W/IMAGE GUIDANCE SI (sacroiliac) joint dysfunction 05/23/2024 10:53 AM EDT ME OR Start: 05-23-2024 Subsequent hospital visit by physician 05/23/2024 10:53 AM EDT Hospital Encounter [facility] Surgery [address] [place] [address] Juan Daniel Contreras MD [address] [facility] [place] [address] SI (sacroiliac) joint dysfunction [M53.3] [facility] Comment on above: SI (sacroiliac) joint dysfunction [M53.3 ] Start: 05-10-2024 End: 05-10-2024 Patient encounter procedure 05/10/2024 1:00 PM EDT Office Visit Family [facility] [address] [place] [address] Nagi Red MD [address] [place], [place] [phone] excisional bx Family [facility] Comment on above: excisional bx Start: 05-02-2024 End: 05-02-2024 Patient encounter procedure 05/02/2024 2:20 PM EDT Office Visit Family [facility] [address] [place] [address] Nagi Red MD [address] [place] [address] excisional biopsy [facility] Comment on above: excisional biopsy Start: 04-27-2024 ANNUAL PCP TEAM CHRONIC DISEASE VISIT ANNUAL PCP TEAM CHRONIC DISEASE VISIT [facility] Start: 04-27-2024 End: 04-27-2024 Patient encounter procedure 04/27/2024 10:20 AM EDT Office Visit [facility] Kaleb Hardy [address] [place] [address] Nagi Red MD [address] [place] [address] excisional biopsy Family [facility] Comment on above: excisional biopsy Start: 04-26-2024 End: 04-26-2024 ambulatory 04/26/2024 11:15 AM EDT Procedure PULM LAB PENDING SALE TO [facility] [address] [place] [address] Wstr, Pulm Lab [facility] [address] [place] [address] Exercise-induced asthma [J45.990] P[facility] PENDING S[facility] TO [facility] Comment on above: Exercise-induced asthma [J45.990] Start: 04-25-2024 End: 07-25-2024 Angiotensin converting enzyme [Enzymatic activity/volume] in Serum or Plasma KATHERINE/ANGIOTENSIN BLD Lab Routine SOB (shortness of breath) Expected: 04/25/2024, Expires: 07/25/2024 [facility] Comment on above: Expected: 04/25/2024, Expires: Start: 04-25-2024 End: 04-25-2024 Patient encounter procedure 04/25/2024 11:20 AM EDT Office Visit [facility] [place] [address] [place] [address] Naig Red MD [address] [place] [address] Physical Family [facility] Comment on above: Physical Start: 04-19-2024 End: 07-19-2024 25-hydroxyvitamin D3 [Mass/volume] in Serum or Plasma VITAMIN D 25 HYDROXY Lab Routine Vitamin D deficiency Expected: 04/19/2024, Expires: 07/19/2024 [facility] Comment on above: Expected: 04/19/2024, Expires: Start: 04-19-2024 End: 07-19-2024 CBC W Auto Differential panel - Blood COMPLETE BLOOD COUNT AND DIFFERENTIAL Lab Routine Post-surgical hypothyroidism Expected: 04/19/2024, Expires: 07/19/2024 [facility] Comment on above: Expected: 04/19/2024, Expires: Start: 04-19-2024 End: 07-19-2024 Comprehensive metabolic 2000 panel - Serum or Plasma COMPREHENSIVE METABOLIC PANEL Lab Routine Hypertension, essential Expected: 04/19/2024, Expires: 07/19/2024 [facility] Work Phone: Comment on above: Expected: 04/19/2024, Expires: Start: 04-19-2024 End: 07-19-2024 Hemoglobin A1c in Blood HEMOGLOBIN A1C Lab Routine Encounter for screening for diabetes mellitus Expected: 04/19/2024, Expires: 07/19/2024 [facility] Comment on above: Expected: 04/19/2024, Expires: Start: 04-19-2024 End: 07-19-2024 LIPID PANEL, NONFASTING LIPID PANEL, NONFASTING Lab Routine Hypertension, essential Expected: 04/19/2024, Expires: 07/19/2024 [facility] Comment on above: Expected: 04/19/2024, Expires: Start: 04-19-2024 End: 07-19-2024 Thyrotropin [Units/volume] in Serum or Plasma THYROID STIMULATING HORMONE Lab Routine Post-surgical hypothyroidism Expected: 04/19/2024, Expires: 07/19/2024 [facility] Comment on above: Expected: 04/19/2024, Expires: Start: 04-19-2024 End: 07-19-2024 Urinalysis complete panel - Urine URINALYSIS, WITH MICROSCOPIC Lab Routine Hypertension, essential Expected: 04/19/2024, Expires: 07/19/2024 [facility] Comment on above: Expected: 04/19/2024, Expires: Start: 04-14-2024 End: 04-14-2024 Patient encounter procedure 04/14/2024 9:20 AM EDT Office Visit [facility] [place] [address] [place], [place] [phone] Nagi Red MD [address] [place], [place] [phone] excisional biopsy [facility] Comment on above: excisional biopsy Start: 03-25-2024 End: 03-25-2024 Patient encounter procedure 03/25/2024 9:20 AM EDT Office Visit [facility] [place] [address] [place], [place] [phone] Nagi Red MD [address] [place], [place] [phone] Skin lesion on back made [address] Red needs to remove rj [facility] Comment on above: Skin lesion on back made 40 minutes in c ase Dr. Red needs to remove rosalio Start: 03-21-2024 End: 03-21-2024 ambulatory 03/21/2024 9:00 AM EDT [facility] Urology [address] [address] Zackary Mchugh MD [address] [place] [address] Kidney Stones Urology Comment on above: Kidney Stones Start: 03-03-2024 ANNUAL PCP TEAM CHRONIC DISEASE VISIT ANNUAL PCP TEAM CHRONIC DISEASE VISIT [facility] Start: 11-22-2023 Behavioral Health Screening Behavioral Health Screening [facility] Start: 11-22-2023 Depression Assessment Depression Assessment [facility] Start: 09-16-2023 Thyroid stimulating hormone measurement TSH [facility] Start: 09-01-2023 ANNUAL PCP TEAM CHRONIC DISEASE VISIT ANNUAL PCP TEAM CHRONIC DISEASE VISIT [facility] Start: 08-20-2023 End: 10-20-2023 25-hydroxyvitamin D3 [Mass/volume] in Serum or Plasma VITAMIN D 25 HYDROXY Lab Routine Vitamin D deficiency Expected: 08/20/2023, Expires: 10/20/2023 [facility] Work Phone: Comment on above: Expected: 08/20/2023, Expires: 3 Start: 08-20-2023 End: 10-20-2023 CBC W Auto Differential panel - Blood CBC + DIFF Lab Routine Primary thyroid papillary carcinoma (HCC) PTSD (post-traumatic stress disorder) Expected: 08/20/2023, Expires: 10/20/2023 [facility] Work Phone: Comment on above: Expected: 08/20/2023, Expires: 3 Start: 08-20-2023 End: 10-20-2023 Comprehensive metabolic 2000 panel - Serum or Plasma COMP METABOLIC PANEL Lab Routine Hypertension, essential Expected: 08/20/2023, Expires: 10/20/2023 [facility] Work Phone: Comment on above: Expected: 08/20/2023, Expires: 3 Start: 08-20-2023 End: 10-20-2023 Hemoglobin A1c in Blood HGB A1C Lab Routine Encounter for screening for diabetes mellitus Expected: 08/20/2023, Expires: 10/20/2023 [facility] Work Phone: Comment on above: Expected: 08/20/2023, Expires: Start: 08-20-2023 End: 10-20-2023 LIPID PANEL, NONFASTING LIPID PANEL, NONFASTING Lab Routine Hypertension, essential Expected: 08/20/2023, Expires: 10/20/2023 [facility] Work Phone: Comment on above: Expected: 08/20/2023, Expires: Start: 08-20-2023 End: 10-20-2023 Urinalysis complete panel - Urine URINALYSIS, WITH MICROSCOPIC Lab Routine Hypertension, essential Expected: 08/20/2023, Expires: 10/20/2023 [facility] Work Phone: Comment on above: Expected: 08/20/2023, Expires: 3 Start: 07-23-2023 Covid-19 Vaccine () Covid-19 Vaccine () [facility] Start: 07-23-2023 Influenza vaccination [facility] Start: 07-06-2023 Adult depression screening assessment DEPRESSION SCREENING [facility] Start: 07-06-2023 ANNUAL PCP TEAM CHRONIC DISEASE VISIT ANNUAL PCP TEAM CHRONIC DISEASE VISIT [facility] Start: 04-27-2023 End: 06-27-2023 Thyrotropin [Units/volume] in Serum or Plasma [facility] Work Phone: Comment on above: Expected: 04/27/2023, Expires: 3 Start: 04-27-2023 End: 06-27-2023 Thyroxine (T4) free [Mass/volume] in Serum or Plasma [facility] Work Phone: Comment on above: Expected: 04/27/2023, Expires: 3 Start: 04-27-2023 End: 06-27-2023 Triiodothyronine (T3) [Mass/volume] in Serum or Plasma [facility] Work Phone: Comment on above: Expected: 04/27/2023, Expires: 3 Start: 03-18-2023 Thyroid stimulating hormone measurement TSH [facility] Start: 03-17-2023 End: 03-17-2023 Patient encounter procedure 03/17/2023 Office Visit Endocrinology, Diabetes & Metabolism Caitlyn Rivera MD [address] [place] [address] Division of Endocrinology Start: 03-03-2023 End: 05-03-2023 LIPID PANEL, NONFASTING LIPID PANEL, NONFASTING Lab Routine Hypertension, essential Expected: 03/03/2023, Expires: 05/03/2023 [facility] Work Phone: Comment on above: Expected: 03/03/2023, Expires: 3 Start: 11-22-2022 DEPRESSION ASSESSMENT DEPRESSION ASSESSMENT [facility] Start: 09-16-2022 End: 09-16-2023 THYROGLOBULIN&THYROGLOBUL IN AB [facility] Comment on above: Expected: 09/16/2022, Expires: 3 Start: 09-16-2022 End: 09-16-2022 Patient encounter procedure 09/16/2022 Office Visit Endocrinology, Diabetes & Metabolism Caitlyn Rivera MD [address] [place] [address] Division of Endocrinology Start: 08-11-2022 Potassium [Moles/volume] in Serum or Plasma POTASSIUM [facility] Start: 07-23-2022 Influenza vaccination [facility] Start: 07-06-2022 End: 09-05-2022 Hemoglobin A1c in Blood [facility] Work Phone: Comment on above: Expected: 07/06/2022, Expires: 2 Start: 07-06-2022 End: 09-05-2022 Thyrotropin [Units/volume] in Serum or Plasma [facility] Work Phone: Comment on above: Expected: 07/06/2022, Expires: 2 Start: 06-04-2022 Thyroid stimulating hormone measurement TSH [facility] Start: 05-06-2022 PAP TESTING PAP TESTING [facility] Start: 05-06-2022 Screening for malignant neoplasm of cervix Pap Testing [facility] Start: 04-21-2022 End: 04-21-2022 Telemedicine consultation with patient 04/21/2022 Telemedicine Otolaryngology Osvaldo Tapia MD [address] [place] [address] Department of Otolaryngology Start: 04-17-2022 End: 04-17-2022 Patient encounter procedure 04/17/2022 Appointment Magnetic Resonance Imaging Karen Land, CUSTOMER SUPPORT ANALYST-SHELF DRIER OPERATOR [address] [place] [id number] Imaging and Mammography [facility] [place] Start: 03-26-2022 End: 03-26-2023 MR Salivary gland MRI SIALOGRAM Imaging Routine Sialadenitis Expected: 03/26/2022, Expires: 03/26/2023 [facility] Comment on above: Expected: 03/26/2022, Expires: 3 Start: 03-26-2022 End: 03-26-2022 ambulatory 03/26/2022 Rehab Services Visit Voice & Swallowing Osvaldo Tapia MD [address] [place] [address] [facility] Start: 03-26-2022 End: 03-26-2022 Patient encounter procedure 03/26/2022 Office Visit Otolaryngology Osvaldo Tapia MD [address] [place] [address] Department of Otolaryngology Start: 10-15-2021 End: 10-15-2021 Patient encounter procedure 10/15/2021 Office Visit Endocrinology, Diabetes & Metabolism Caitlyn Rivera MD [address] [place] [address] Division of Endocrinology Start: 07-23-2021 Influenza vaccination INFLUENZA VACCINE (#1) [facility] Start: 2021 HPV TESTING HPV TESTING [facility] Start: 2021 Screening for malignant neoplasm of cervix HPV Testing [facility] Start: 11-04-2020 ANNUAL PCP TEAM CHRONIC DISEASE VISIT ANNUAL PCP TEAM CHRONIC DISEASE VISIT [facility] Start: 05-06-2020 Screening for malignant neoplasm of cervix Cervical Cancer Screening [facility] Start: 05-20-2018 Adult depression screening assessment DEPRESSION SCREENING [facility] Start: 2012 Screening for malignant neoplasm of cervix CERVICAL CANCER SCREENING DISCUSSION [facility] Start: 2010 PNEUMOCOCCAL VACCINE SERIES (1 of 2 - PCV) PNEUMOCOCCAL VACCINE SERIES (1 of 2 - PCV) [facility] Start: 2010 Third diphtheria, tetanus and acellular pertussis (DTaP) vaccination TDAP (ADULT) [facility] Start: 2010 Zoster vaccine hzv live for subcutaneous use ZOSTER (SHINGLES) VACCINE (1 of 2) [facility] Start: 2009 ANNUAL PCP TEAM CHRONIC DISEASE VISIT ANNUAL PCP TEAM CHRONIC DISEASE VISIT [facility] Start: 2009 BP CONTROLLED (<130/80) BP CONTROLLED (<130/80) [facility] Start: 2009 Depression Screening Depression Screening [facility] Start: 2009 HEPATITIS C SCREENING HEPATITIS C SCREENING [facility] Start: 2009 Hepatitis C screening Hepatitis C Screening [facility] Start: 2009 SPIROMETRY SPIROMETRY [facility] Start: 2009 Tetanus vaccination TETANUS [facility] Start: 2006 HIV screening HIV SCREENING DISCUSSION [facility] Start: 2003 COVID-19 VACCINE (1) COVID-19 VACCINE (1) [facility] Start: 1997 PNEUMOCOCCAL (1 - PCV) PNEUMOCOCCAL (1 - PCV) [facility] Start: 1997 Pneumococcal vaccination [facility] Start: 1997 PNEUMOCOCCAL VACCINE SERIES (1 - PCV) PNEUMOCOCCAL VACCINE SERIES (1 - PCV) [facility] Start: 1997 PNEUMOCOCCAL VACCINE SERIES (1 of 2 - PCV) PNEUMOCOCCAL VACCINE SERIES (1 of 2 - PCV) [facility] Start: 1996 COVID-19 VACCINE (#1) COVID-19 VACCINE (#1) [facility] Start: 1996 COVID-19 VACCINE (1) COVID-19 VACCINE (1) [facility] Start: 1991 COVID-19 VACCINE (#1) COVID-19 VACCINE (#1) [facility] Start: 1991 Hepatitis C antibody, confirmatory test HEPATITIS C VIRUS SCREENING [facility] Start: 1991 Hepatitis C screening HEPATITIS C VIRUS SCREENING [facility] Bacteria identified in Urine by Culture URINE CULTURE Microbiology Routine Dysuria Ordered: 09/29/2024 [facility] Work Phone: Comment on above: Ordered: 09/29/2024 Bacteria identified in Urine by Culture BACTERIAL CULTURE, URINE Microbiology Routine Kidney stones Right flank pain Hematuria, unspecified type 06/07/2025 1:36 PM EDT [facility] CBC W Auto Different ial panel - Blood CBC + DIFF Lab Routine Hypertension, essential Weight gain Primary thyroid papillary carcinoma (HCC) 07/06/2022 10:35 AM EDT [facility] Work Phone: COVID & INFLUENZA A/ B & RSV NAAT, ROUTINE COVID & INFLUENZA A/B & RSV NAAT, ROUTINE Microbiology Routine URI, acute 01/07/2024 11:20 AM EST [facility] Work Phone: COVID & INFLUENZA A/ B & RSV PCR, ROUTINE COVID & INFLUENZA A/B & RSV PCR, ROUTINE Microbiology Routine Viral illness Ordered: 09/15/2024 [facility] Work Phone: Comment on above: Ordered: 09/15/2024 End: 06-07-2026 CT Abdomen and Pelvis WO contrast CT FLANK WO IVCON Radiology Routine Nausea Nausea and vomiting, unspecified vomiting type RUQ pain Right flank pain 1 Occurrences starting 05/08/2025 until 06/07/2026 [facility] Comment on above: 1 Occurrences starting 05/08/2025 until 06/07/2026 End: 05-26-2024 Ct angiography chest w/contrast/noncontrast CTA CHEST (NONGATED) W IVCON Radiology STAT Adverse effect of treatment, initial encounter 1 Occurrences starting 04/27/2023 until 05/26/2024 [facility] Work Phone: Comment on above: 1 Occurrences starting 04/27/2023 until 05/26/2024 End: 06-07-2026 CT Chest WO contrast CT CHEST WO IVCON Radiology Routine SOB (shortness of breath) 1 Occurrences starting 05/08/2025 until 06/07/2026 [facility] Comment on above: 1 Occurrences starting 05/08/2025 until 06/07/2026 End: 05-26-2024 CTA NECK W IVCON CTA NECK W IVCON Radiology Routine Adverse effect of treatment, initial encounter 1 Occurrences starting 04/27/2023 until 05/26/2024 [facility] Work Phone: Comment on above: 1 Occurrences starting 04/27/2023 until 05/26/2024 Dstrj neurolytic age nt other peripheral nerve NRV DESTR RFA, CHEM OTHER Procedures Routine SI (sacroiliac) joint dysfunction Ordered: 04/07/2022 [facility] Work Phone: Comment on above: Ordered: 04/07/2022 Dstrj neurolytic age nt other peripheral nerve NRV DESTR RFA, CHEM OTHER Procedures Routine SI (sacroiliac) joint dysfunction Ordered: 11/25/2022 [facility] Work Phone: Comment on above: Ordered: 11/25/2022 Dstrj neurolytic age nt other peripheral nerve NRV DESTR RFA, CHEM OTHER Procedures Routine SI (sacroiliac) joint dysfunction Ordered: 06/08/2023 [facility] Work Phone: Comment on above: Ordered: 06/08/2023 Dstrj neurolytic age nt other peripheral nerve NRV DESTR RFA, CHEM OTHER Procedures Routine SI (sacroiliac) joint dysfunction Ordered: 03/16/2024 [facility] Work Phone: Comment on above: Ordered: 03/16/2024 Dstrj neurolytic age nt other peripheral nerve NRV DESTR RFA, CHEM OTHER Procedures Routine SI (sacroiliac) joint dysfunction Ordered: 09/18/2024 [facility] Work Phone: Comment on above: Ordered: 09/18/2024 Dstrj neurolytic age nt other peripheral nerve NRV DESTR RFA, CHEM OTHER Procedures Routine SI (sacroiliac) joint dysfunction Ordered: 03/02/2025 [facility] Work Phone: Comment on above: Ordered: 03/02/2025 Dstrj neurolytic age nt other peripheral nerve NRV DESTR RFA, CHEM OTHER Procedures Routine SI (sacroiliac) joint dysfunction Ordered: 07/17/2025 [facility] Work Phone: Comment on above: Ordered: 07/17/2025 Inject si joint arthrgrphy&/anes/steroid w/jayce INJECTION PROCEDURE FOR SACROILIAC Procedures Routine SI (sacroiliac) joint dysfunction Sacroiliitis, not elsewhere classified (HCC) 1 Occurrences starting 01/12/2023 [facility] Work Phone: Comment on above: 1 Occurrences starting 01/12/2023 End: 06-07-2026 METHACHOLINE CHALLENGE METHACHOLINE CHALLENGE PFT Routine SOB (shortness of breath) 1 Occurrences starting 05/08/2025 until 06/07/2026 [facility] Comment on above: 1 Occurrences starting 05/08/2025 until 06/07/2026 End: 01-14-2026 MR Brain WO contrast MRI BRAIN WO IVCON Radiology Routine Migraine without aura and without status migrainosus, not intractable 1 Occurrences starting 12/15/2024 until 01/14/2026 [facility] Work Phone: Comment on above: 1 Occurrences starting 12/15/2024 until 01/14/2026 End: 06-14-2025 MR Lumbar spine WO contrast MRI LUMBAR SPINE WO IVCON Radiology Routine Spinal stenosis of lumbar region, unspecified whether neurogenic claudication present Radiculopathy, lumbar region Spinal stenosis of lumbar region with neurogenic claudication 1 Occurrences starting 05/16/2024 until 06/14/2025 [facility] Work Phone: Comment on above: 1 Occurrences starting 05/16/2024 until 06/14/2025 End: 04-17-2022 MR Salivary gland [facility] Comment on above: 1 Occurrences starting 04/17/2022 until 04/17/2022 End: 06-07-2026 NITRIC OXIDE, EXHALED NITRIC OXIDE, EXHALED PFT Routine SOB (shortness of breath) 1 Occurrences starting 05/08/2025 until 06/07/2026 [facility] Work Phone: Comment on above: 1 Occurrences starting 05/08/2025 until 06/07/2026 Protein [Mass/time] in 24 hour Urine PROTEIN, 24 HOUR URINE Lab Routine Proteinuria, unspecified type Ordered: 05/08/2025 [facility] Comment on above: Ordered: 05/08/2025 End: 05-25-2025 SPIROMETRY - BASELINE AND POST DILATOR SPIROMETRY - BASELINE AND POST DILATOR PFT Routine Exercise-induced asthma SOB (shortness of breath) 1 Occurrences starting 04/25/2024 until 05/25/2025 [facility] Work Phone: Comment on above: 1 Occurrences starting 04/25/2024 until 05/25/2025 SPIROMETRY - BASELIN E AND POST DILATOR SPIROMETRY - BASELINE AND POST DILATOR PFT Routine Exercise-induced asthma SOB (shortness of breath) 04/26/2024 11:16 AM EDT [facility] Work Phone: Thyrotropin [Units/volume] in Serum or Plasma THYROID STIMULATING HORMONE Lab Routine Bilateral pleural effusion Post-surgical hypothyroidism 05/02/2025 2:14 PM EDT [facility] Thyroxine (T4) free [Mass/volume] in Serum or Plasma T4 FREE/FREE THYROXINE Lab Routine Bilateral pleural effusion Post-surgical hypothyroidism 05/02/2025 2:14 PM EDT [facility] UA DIP, URINE (POC) UA DIP, URIN E (POC) Lab Routine Kidney stones Right flank pain Ordered: 06/07/2025 [facility] Work Phone: Comment on above: Ordered: 06/07/2025 End: 06-16-2026 US Kidney - bilateral and Urinary bladder US KIDNEY/BLADDER Radiology Routine Nausea and vomiting, unspecified vomiting type Right flank pain RUQ pain Renal stones 1 Occurrences starting 05/17/2025 until 06/16/2026 [facility] Work Phone: Comment on above: 1 Occurrences starting 05/17/2025 until 06/16/2026 US Kidney - bilatera l and Urinary bladder US KIDNEY/BLADDER Radiology Routine Nausea and vomiting, unspecified vomiting type Right flank pain RUQ pain Renal stones 05/21/2025 10:21 AM EDT [facility] Work Phone: US Kidney - bilatera l and Urinary bladder US KIDNEY/BLADDER Radiology Routine Bilateral nephrolithiasis 08/06/2025 10:24 AM EDT [facility] Work Phone: [facility] Immunizations Immunization Date Immunization Notes Care Provider [facility] 08-21-2024 influenza virus vaccine, unspecified formulation Nagi Red MD Work Phone: [facility] 10-19-2017 influenza virus vaccine, unspecified formulation Carlie Brownlee APRN.CNP Work Phone: [facility] 09-29-2016 influenza, injectabl e, quadrivalent, contains preservative [employer] Goldie Work Phone: [facility] Work Phone: 09-29-2016 influenza virus vaccine, unspecified formulation Caitlyn Rivera MD Work Phone: [facility] 03-19-2015 tetanus toxoid, redu jennifer diphtheria toxoid, and acellular pertussis vaccine, adsorbed [employer] [place] Work Phone: [facility] Work Phone: 08-24-2012 influenza virus vaccine, unspecified formulation [employer] [place] Work Phone: [facility] 08-24-2009 influenza virus vaccine, unspecified formulation [employer] [place] Work Phone: [facility] Work Phone: 10-05-2008 influenza virus vaccine, unspecified formulation [employer] [place] Work Phone: [facility] Work Phone: 06-08-2008 human papilloma viru s vaccine, quadrivalent [employer] [place] Work Phone: [facility] Work Phone: 04-24-2008 hepatitis A vaccine, unspecified formulation [employer] [place] Work Phone: [facility] Work Phone: 02-10-2008 human papilloma viru s vaccine, quadrivalent [employer] [place] Work Phone: [facility] Work Phone: 12-07-2007 human papilloma viru s vaccine, quadrivalent [employer] [place] Work Phone: [facility] Work Phone: 09-20-2007 influenza virus vaccine, unspecified formulation [employer] [place] Work Phone: [facility] Work Phone: 09-20-2006 influenza virus vaccine, unspecified formulation [employer] [place] Work Phone: [facility] Work Phone: 07-23-2005 Meningococcal, MCV4, unspecified conjugate formulation(groups A, C, Y and W-135) [employer] [place] Work Phone: [facility] Work Phone: 12-26-2002 diphtheria and tetan us toxoids, adsorbed for pediatric use [employer] [place] Work Phone: [facility] Work Phone: 12-26-2002 measles, mumps and rubella virus vaccine [employer] [place] Work Phone: [facility] Work Phone: 05-01-2002 hepatitis B vaccine, pediatric or pediatric/adolescent dosage [employer] [place] Work Phone: [facility] Work Phone: 10-24-2001 hepatitis B vaccine, pediatric or pediatric/adolescent dosage [employer] [place] Work Phone: [facility] Work Phone: 09-27-2001 hepatitis B vaccine, pediatric or pediatric/adolescent dosage [employer] [place] Work Phone: [facility] Work Phone: 02-18-1998 trivalent poliovirus vaccine, live, oral [employer] [place] Work Phone: [facility] Work Phone: 11-15-1996 Chicken Pox (disease) Capsul e [place] Work Phone: [facility] Work Phone: 10-06-1993 diphtheria, tetanus toxoids and pertussis vaccine [employer] [place] Work Phone: [facility] Work Phone: 09-20-1992 measles, mumps and rubella virus vaccine [employer] [place] Work Phone: [facility] Work Phone: 1991 diphtheria, tetanus toxoids and pertussis vaccine [employer] [place] Work Phone: [facility] Work Phone: 1991 haemophilus influenz ae type b vaccine, HbOC conjugate [employer] [place] Work Phone: [facility] Work Phone: 1991 diphtheria, tetanus toxoids and pertussis vaccine [employer]aps[employer] [place] Work Phone: [facility] Work Phone: 1991 trivalent poliovirus vaccine, live, oral [facility] [place] Work Phone: [facility] Work Phone: 1991 diphtheria, tetanus toxoids and pertussis vaccine [facility] [place] Work Phone: [facility] Work Phone: 1991 haemophilus influenz ae type b vaccine, HbOC conjugate [facility] [place] Work Phone: [facility] Work Phone: 1991 trivalent poliovirus vaccine, live, oral [facility] [place] Work Phone: [facility] Work Phone: Payers Date Payer Category Payer Unknown [id number] 2024 Private Health Insurance [id number] 2024 Unknown [id number] 2024 Self-pay 2020 Medicaid (Managed Care) [facility] [id number] 2020 Unknown [id number]. [id number] 2020 Unknown [id number] 2017 Medicaid [id number] 2017 Unknown [id number]. [id number] 1991 Unknown [id number] 2.16.840.1.479264.3.579.2. 419 1991 Unknown [id number] 2.16.840.1.163909.3.579.2. 419 1991 Unknown [id number] 2.16.840.1.193616.3.579.2. 419 1991 Unknown [id number] 2.16.840.1.628979.3.579.2. 419 1991 Unknown [id number] 2.840.1.277833.3.579.2. 419 1991 Unknown [id number] 2.16.840.1.544848.3.579.2. 651 1991 Unknown [id number] 2.840.1.328208.3.579.2. 594 1991 Unknown [id number] 2.840.1.956959.3.579.2. 594 1991 Unknown [id number] 2.840.1.054408.3.579.2. 594 Unknown [id number] Unknown [id number] 2.840.1.169532.3.579.2. 462 Unknown [id number] 2.840.1.551415.3.579.2. 462 Unknown [id number] 2.840.1.045647.3.579.2. 462 Unknown [id number] 2.840.1.555456.3.579.2. 462 Unknown [id number] 2.840.1.115648.3.579.2. 462 Unknown [id number] 2.16840.1.529191.3.579.2. 462 Unknown [id number] 2.840.1.404799.3.579.2. 462 Unknown [id number] 2.16.840.1.711709.3.579.2. 462 Unknown [id number] 2.16.840.1.575301.3.579.2. 462 Unknown [id number] 2.16.840.1.483504.3.579.2. 462 Unknown [id number] 2.16.840.1.125907.3.579.2. 462 Unknown [id number] 2.16.840.1.038948.3.579.2. 462 Unknown [id number] 2.16.840.1.325232.3.579.2. 462 Unknown [id number] 2.16.840.1.188018.3.579.2. 462 Unknown [id number] 2.16.840.1.846646.3.579.2. 462 Unknown [id number] 2.16.840.1.637840.3.579.2. 462 Unknown [id number] 2.16.840.1.121824.3.579.2. 462 Unknown [id number] 2.16.840.1.309313.3.579.2. 462 Unknown [id number] 2.16.840.1.109128.3.579.2. 462 Unknown [id number] 2.16.840.1.850484.3.579.2. 462 Social History Date Type Detail Facility Start: 10-16-2020 End: 07-06-2022 Tobacco smoking status NHIS Never smoker [facility] Start: 10-16-2020 End: 07-06-2022 Tobacco use and exposure Never used [facility] Start: 06-06-2021 End: 07-18-2025 Alcohol intake Ex-drinker (finding) [facility] Start: 01-15-2021 History SDOH Alcohol Frequency 2 [facility] Start: 01-15-2021 Alcohol Comment occassional [facility] Start: 1990 Sex Assigned At Not on file [facility] Start: 06-17-2021 End: 07-30-2022 Exposure to SARS-CoV-2 (event) Not sure [facility] Start: 01-06-2022 End: 06-19-2025 Alcohol intake Current non-drinker of alcohol (finding) [facility] Start: 07-27-2019 History SDOH Alcohol Comment 2-3 x yearly [facility] Start: 03-27-2022 End: 06-26-2022 Exposure to SARS-CoV-2 (event) Unable to assess [facility] Start: 03-03-2023 End: 04-27-2023 History of Social function [facility] Work Phone: Start: 03-03-2023 End: 04-27-2023 Tobacco use panel [facility] Work Phone: Start: 10-23-2012 Adult Depression Screening Assessment 0 [facility] Work Phone: How often to you hav e a drink containing alcohol? Monthly or less [facility] Has the [employer] or [employer] threatened to shut off services in your home in past 12Mo No [facility] Do you belong to any clubs or organizations such as christianity groups, unions, fraternal or athletic groups, or school groups? Yes [facility] Are you now , , , , never or living with a partner? [facility] How often to you hav e a drink containing alcohol? Never [facility] Do you feel stress - tense, restless, nervous, or anxious, or unable to sleep at night because your mind is troubled all the time - these days [OSQ] Only a little [facility] (I/We) worried clarence er (my/our) food would run out before (I/we) got money to buy more. Never true [facility] Start: 09-03-2020 Sex Female (finding) [facility] Medical Equipment Procedure Code Equipment Code Equipment Origin al Text Equipment Identifier Dates Stent Salivary 1 mm [employer] Pebax Radiopaque Short Term - [id number] Start: 06-05-2022 Stent Salivary 1 mm [employer] Pebax Radiopaque Short Term - [id number] [facility] Start: 06-05-2022 Stent Inlay Opti ma 6fr [place] [employer] - [id number] [facility] Start: 06-29-2025 Goals Date Patient Goal Desired Activity /State Personal health goal Functional Status Date Assessment Result Facility 05-07-2025 Total score [AUDIT-C] 0 05/07/20 10:52 AM EDT User, Dannat [facility] 05-07-2025 How often to you hav e a drink containing alcohol? Never 05/07/2025 10:52 AM EDT User, Mychart Never [facility] 05-07-2025 Functional status Patient does n ot drink 05/07/2025 10:52 AM EDT User, [facility] Patient does not drink [facility] 05-07-2025 How often do you hav e 6 or more drinks on 1 occasion? Never 05/07/2025 10:52 AM EDT User, Víctorhart Never [facility] 08-24-2020 Are you deaf, or do you have serious difficulty hearing No 08/24/2020 7:45 AM Belkis Bynum, DEANDRE No [facility] 08-24-2020 Are you blind, or do you have serious difficulty seeing, even when wearing glasses No 08/24/2020 7:45 AM Belkis Bynum, DEANDRE No [facility] 08-24-2020 Do you have serious difficulty walking or climbing stairs No 08/24/2020 7:45 AM Belkis Bynum RN No [facility] 08-24-2020 Do you have difficul ty dressing or bathing No 08/24/2020 7:45 AM Belkis Bynum, RN No [facility] 08-24-2020 Because of a physica l, mental, or emotional condition, do you have difficulty doing errands alone such as visiting a physician's office or shopping No 08/24/2020 7:45 AM Belkis Bynum, RN No [facility] Mental Status Date Assessment Result Facility 08-24-2020 Because of a physica l, mental, or emotional condition, do you have serious difficulty concentrating, remembering, or making decisions No 08/24/2020 7:45 AM Belkis Bynum, RN No [facility] Clinical Notes 03-19-2015 to 09-27-2025 Ana Laura KarenERASMO jarquin - 08/06/2025 10:00 AM EDTPatient InstructionsNagi Red MD - 07/18/2025 8:40 AM EDTTelephone Encounter - Naomi Godwin RN - 07/17/2025 2:21 PM EDTPatient Instructions Note Date & Type Note Facility 09-27-2025 Note HNO ID: [id number] Author: CHRISTINE DEAN PA-C Service: ? Author Type: Physician Hearings Reporter Type: Progress Notes Filed: 09/27/2025 08:58 Note Text: Chief Complaint Patient presents with: elevated blood pressure at office visit HPI Greta Andres is a 35 year old female who presents here today for Above Complaints.. Hypertension: - History of HTN, currently managed with propranolol 40 mg BID and hydrochlorothiazide 25 mg daily. - Recent BP readings have been elevated, with home measurements averaging 140/105-110 mmHg. - Recent pre-op BP reading was 140/114 mmHg. - Previous BP readings were typically 112-120/70 mmHg prior to the last few months. - Believes elevated BP is due to pain from kidney stones. - No plans for ; has had a bilateral salpingectomy. Migraines: - Propranolol was initially prescribed for migraine prophylaxis. Nephrolithiasis: - Scheduled for 1-2 more surgeries for kidney stones; has had one previous kidney surgery. - Next surgery is tentatively scheduled for October. Weight Gain: - Noted weight gain since starting metformin in June; current weight is 203 lbs, up from 198 lbs. - Reports decreased appetite but continued weight gain. - Inquires about the use of GLP-1 patches for weight management. - Does not engage in regular exercise due to back issues. Last 6 Encounter Wt Readings: Date: Wt: 09/27/2025 92.1 kg (203 lb) 08/13/2025 90.1 kg (198 lb 10.2 oz) 07/18/2025 90.2 kg (198 lb 12.8 oz) 06/28/2025 89 kg (196 lb 3.2 oz) 06/22/2025 88.4 kg (194 lb 14.2 oz) 06/16/2025 89.9 kg (198 lb 3.1 oz) Last 7 Encounter BP Readings: Date: BP: 09/27/2025 134/94[average with bp machine[ 09/26/2025 167/114 09/11/2025 153/107 08/13/2025 124/86 07/18/2025 114/72 07/17/2025 152/99 06/29/2025 112/76 Past medical history, appointments, medications, allergies reviewed. 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 No surgical correction done. The father of the baby's brother born with a hole in his heart. Surgical correction was done. 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 [facility] 08-13-2025 Note HNO ID: [id number] Author: BOBBY PAIZ APRN.SHELF DRIER OPERATOR Service: ? Author Type: Nurse Practitioner Type: Progress Notes Filed: 08/13/2025 14:44 Note Text: URGENT CARE ANTONY Andres is a 35 year old female. Patient presents with: Cough: X 2 weeks Cough The patient is a 35-year-old female presenting with a persistent cough, fatigue, and congestion. Cough: - Persistent cough, initially productive, now non-productive and more painful. - Using Mucinex DM (daytime and nighttime formulations). - Daughter recently had pneumonia. Fatigue: - Severe fatigue, attributing to the cough. - Slept from 18:00 last night to 11:00 this morning. Congestion: - Reports feeling congested up in my head with a foggy sensation. - Initially thought it was a sinus infection that seemed to improve but still feels foggy and congested. - Denies sore throat, earaches, or dizziness. -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 was 510. She reported having a sugar reading of 210 prior to eating. A1c was completed with a result of 6.2. Was seen at [facility] ED on 07/01/25 for R sided kidney and back pain. Patient states that she was advised to remove 3-4 days later, or sooner if issues. Patient states that she was soiling herself with urine with minimal exertion. She took the stent out Wednesday night and right after she started having severe pain. Kathleen was called and she was taken to [facility] ED and evaluated. ED told the ureter was swollen and the kidney was spasming causing her increased pain. Was given Percocet for pain, but not using only taking Tramadol. Greta Andres is a 35-year-old female with a history of papillary thyroid cancer, gastroparesis, and recent kidney stone removal, presenting with hyperglycemia. rGeta reports elevated blood glucose levels ranging from 200-300 mg/dL over the past week, following the removal of a kidney stone and stent. She was previously informed that the hyperglycemia was due to pain and would resolve, but it has persisted. She has a family history of diabetes mellitus, including both paternal grandparents and her mother, who developed diabetes secondary to steroid use. She has noticed increased thirst but denies polyuria, polyphagia, or recent fevers. She has been consuming sugar-free water packets and primarily eating eggs due to gastroparesis, which she notes are the only food that digests well. She has experienced emesis after consuming eggs three times recently. She inquires about the suitability of eggs for a diabetic diet. She expresses interest in weight loss and inquires about GLP-1 receptor agonist patches, noting difficulty with fasting due to blood sugar fluctuations. She has been on Vraylar for a couple of years and was made aware that it may contribute to elevated blood glucose levels. She denies any chest pain, dyspnea, wheezing, cephalalgia, or syncope since a recent change in her propranolol dosage. She is scheduled for two surgeries next month, including back injections and left kidney stone removal. Past medical history, appointments, medications, allergies reviewed. [...] 08/07/2013 Bipolar 1 disorder (HCC) 02/14/2018 Seeing [facility] Behavioral Medicine as of 01/2018 Bipolar [...] handout on Increasing Calcium in Your Diet Du (more content not included)... [facility] 07-17-2025 Telephone encounter Note Injection procedure rescheduled from 08/07/2025 to 08/16/2025. Case message sent. [facility] 07-17-2025 Miscellaneous Notes Injection procedure rescheduled from 08/07/2025 to 08/16/2025. Case message sent. documented in this encounter [facility] 07-17-2025 Note HNO ID: [id number] Author: CARLIE BROWNLEE APRN.MARGARITA Service: ? Author Type: Nurse Practitioner Type: Progress Notes Filed: 07/17/2025 10:49 Note Text: I have communicated my name and active licensure. The patient's identity and physical location were verified at the time of this visit. Either the patient or their legal claim representative has been informed of the risks and benefits of -- and alternatives to -- treatment through a remote evaluation and consents to proceed with the evaluation remotely. Elida Andres is a 35-year-old female presenting for follow-up regarding kidney stones and associated pain. Greta reports a history of five kidney stones, with three larger stones surgically removed from the right side in March. She is scheduled for surgery on the left side in July. She experiences back pain radiating to the left hip and down the leg to the knee, described as sharp, burning, and achy, with a pain level of 5/10. She requests a refill of tramadol for pain management. She is not currently taking baby aspirin, blood thinners, or anti-inflammatories. She is not diagnosed with diabetes but has been experiencing elevated blood sugar levels since her kidney surgery. She has an appointment with her family doctor tomorrow to discuss potential diabetes diagnosis, with hemoglobin A1c results expected today. Her last left SI RFA was 11/09/2024. The pain has return in the past month and she would like to repeat Objective LMP 08/18/2024 (Approximate) GENERAL: alert and appropriate, in no distress Assessment AND Plan SI (sacroiliac) joint dysfunction Radiculopathy, lumbar region Degeneration of intervertebral disc of lumbar region with discogenic back pain Degeneration of intervertebral disc of lumbar region with discogenic back pain and lower extremity pain The following approved medication requests have been transmitted electronically. Requested Prescriptions Signed Prescriptions Disp Refills traMADol (ULTRAM) 50 mg tablet 45 tablet 2 Sig: Take 1-2 pills by mouth once a day for pain, prn 2. Ordered and scheduled repeat left SI RFA for 08/07 3. Follow up in 3 months in the office for med refills Visit was conducted via Tw[employer] Provider Location: [facility] Facility Patient Location: Patient Home or Place of Residence I spent a total of 20 minutes on the date of the service which included preparing to see the patient, [id number] patient care, completing clinical documentation, ordering medications, tests, or procedures, and care coordination (not separately reported). [facility] 07-17-2025 History of Present illness Narrative I have communicated my name and active licensure. The patient's identity and physical location were verified at the time of this visit. Either the patient or their legal claim representative has been informed of the risks and benefits of -- and alternatives to -- treatment through a remote evaluation and consents to proceed with the evaluation remotely. Elida Andres is a 35-year-old female presenting for follow-up regarding kidney stones and associated pain. Greta reports a history of five kidney stones, with three larger stones surgically removed from the right side in March. She is scheduled for surgery on the left side in July. She experiences back pain radiating to the left hip and down the leg to the knee, described as sharp, burning, and achy, with a pain level of 5/10. She requests a refill of tramadol for pain management. She is not currently taking baby aspirin, blood thinners, or anti-inflammatories. She is not diagnosed with diabetes but has been experiencing elevated blood sugar levels since her kidney surgery. She has an appointment with her family doctor tomorrow to discuss potential diabetes diagnosis, with hemoglobin A1c results expected today. Her last left SI RFA was 11/09/2024. The pain has return in the past month and she would like to repeat Objective LMP 08/18/2024 (Approximate) GENERAL: alert and appropriate, in no distress Assessment & Plan SI (sacroiliac) joint dysfunction Radiculopathy, lumbar region Degeneration of intervertebral disc of lumbar region with discogenic back pain Degeneration of intervertebral disc of lumbar region with discogenic back pain and lower extremity pain The following approved medication requests have been transmitted electronically. Requested Prescriptions Signed Prescriptions Disp Refills traMADol (ULTRAM) 50 mg tablet 45 tablet 2 Sig: Take 1-2 pills by mouth once a day for pain, prn 2. Ordered and scheduled repeat left SI RFA for 08/07 3. Follow up in 3 months in the office for med refills Visit was conducted via TwitChat Provider Location: [facility] Facility Patient Location: Patient Home or Place of Residence I spent a total of 20 minutes on the date of the service which included preparing to see the patient, [id number] patient care, completing clinical documentation, ordering medications, tests, or procedures, and care coordination (not separately reported). documented in this encounter [facility] 07-12-2025 Telephone encounter Note Pt notified of message below from PCP. Phil Millan MA [facility] 07-12-2025 Miscellaneous Notes Pt notified of message below from PCP. Phil Millan MA Let patient know I placed an order for an A1c to get done before her appt with me. We can then eval her BP and the A1c result. Can you review pt's message and advise. Do not see where she's dx with DM and pt follows with [facility], unsure if they manage this? Phil Millan MA documented in this encounter [facility] 07-12-2025 Telephone encounter Note Let patient know I placed an order for an A1c to get done before her appt with me. We can then eval her BP and the A1c result. [facility] 07-12-2025 Telephone encounter Note Can you review pt's message and advise. Do not see where she's dx with DM and pt follows with [facility], unsure if they manage this? Phil Millan MA [facility] 07-11-2025 Telephone encounter Note Left VM for patient to call office to update registration and go over records needed for review prior to scheduling. [facility] 07-11-2025 Telephone encounter Note ----- Message from Mari Lawrence sent at 06/28/2025 11:16 AM EDT ----- Regarding: Schedule Consult to Gastroenterology Greta Andres is being referred to or the Gastroparesis clinic. Referring Physician: Nagi Red MD Preferred phone number for contact: [phone] Send to GASTROPARESIS SCHEDULING POOL [[id number]] [facility] 07-11-2025 Miscellaneous Notes Left VM for patient to call office to update registration and go over records needed for review prior to scheduling. ----- Message from Mari Jose sent at 06/28/2025 11:16 AM EDT ----- Regarding: Schedule Consult to Gastroenterology Greta Andres is being referred to or the Gastroparesis clinic. Referring Physician: Nagi Red MD Preferred phone number for contact: [phone] Send to GASTROPARESIS SCHEDULING POOL [[id number]] documented in this encounter [facility] 06-29-2025 Note HNO ID: [id number] Author: RENARD WYNN [facility] Service: ? Author Type: Pharmacist Type: Plan of Care Filed: 06/29/2025 17:17 Note Text: PHARMACY BEDSIDE DELIVERY SERVICE Patient Name: Greta Andres The marked outpatient medications were Filled at: [facility] and delivered to the patient's bedside to amb Medication List START taking these medications keTORolac 10 mg tablet Commonly known as: Toradol Take 1 tablet by mouth every 6 hours as needed. tamsulosin 0.4 mg Commonly known as: FLOMAX Take 1 capsule by mouth once daily for 7 days. traMADol 50 mg tablet Commonly known as: ULTRAM CONTINUE taking these medications albuterol HFA 90 mcg/actuation inhaler Commonly known as: VENTOLIN HFA Inhale 2 Puffs as instructed every 6 hours as needed for wheezing/shortness of breath. cariprazine 1.5 mg capsule Commonly known as: VRAYLAR Take 1 capsule by mouth once daily. Per Psych[facility] Cholecalciferol (Vitamin D3) 50 mcg (2,000 unit) Cap Take 1 capsule by mouth once daily. cyclobenzaprine 5 mg tablet Commonly known as: FLEXERIL etonogestrel 68 mg Impl subdermal implant Commonly known as: NEXPLANON hydroCHLOROthiazide 25 mg tablet Take 1 tablet by mouth once daily. HYDROcodone-acetaminophen 5-325 mg per tablet Commonly known as: NORCO Take 1 tablet by mouth every 6 hours as needed for up to 7 days. * levothyroxine 200 mcg tablet Commonly known as: SYNTHROID Take 1 tablet by mouth once daily. * levothyroxine 25 mcg tablet Commonly known as: SYNTHROID Take 1 tablet by mouth daily before breakfast. Take 225 mcg total of synthroid daily (so add this 25mcg tab to your daily 200mcg tab) magnesium glycinate 100 mg magnesium capsule Take 2 capsules by mouth two times a day. ondansetron orally disintegrating 4 mg disintegrating tablet Commonly known as: ZOFRAN ODT Take 1 tablet by mouth every 8 hours as needed for nausea/vomiting. propranolol 40 mg tablet Commonly known as: INDERAL Take 1 tablet by mouth two times a day. QUEtiapine 50 mg tablet Commonly known as: SeroqueL Take 1 tablet by mouth daily at bedtime. [facility] Psych[facility] scopolamine - REMOVE PATCH SUMAtriptan 50 mg tablet Commonly known as: IMITREX Take 1 tablet (50 mg) by mouth as needed for migraine headache (see administration instructions). May repeat dose after 2 hours if needed. Maximum daily dose is 200 mg per day. * This list has 2 medication(s) that are the same as other medications prescribed for you. Read the directions carefully, and ask your doctor or other care provider to review them with you. You might also be taking other medications not listed above. If you have questions about any of your other medications, talk to the person who prescribed them or your Primary Care Provider. Renard Wynn [facility] PAGER: [phone] June 29, 2025 5:16 PM [facility] 06-29-2025 Note HNO ID: [id number] Author: BIMAL ALVAREZ DO Service: ? Author Type: Anesthesiologist Type: Anesthesia Procedure Notes Filed: 06/29/2025 14:31 Note Text: ANESTHESIOLOGY PROCEDURE NOTE Airway General Information Procedure Start Time/Medication Administration: 06/29/2025 2:07 PM Procedure End Time: 06/29/2025 2:13 PM Patient location during procedure: OR Timeout Performed Pre-procedure: timeout performed Consent Obtained: Yes Patient identity confirmed: arm band Staffing Anesthesiologist: Bimal Alvarez DO CALL CENTER RECRUITER: Balaji Sharp APRN.CALL CENTER RECRUITER Performed by: LETI Indications and Patient Condition Indications for airway management: anesthesia Preoxygenated: yes anesthesia circuit Patient position: sniffing Method: asleep Cricoid Pressure: No Manual In-Line Stabilization: No Difficult Mask: No Airway Accessory: LMA Final Airway Details Final airway type: supraglottic airway Number of attempts at approach: 1 Final Supraglottic Airway: i-gel Size 4 Seal Adequate: yes Failed airway: no Unrecognized esophageal intubation: no Airway not difficult SIGNATURE: Balaji Sharp APRN.CALL CENTER RECRUITER PATIENT NAME: Greta Andres DATE: June 29, 2025 TIME: 2:13 PM CSN: [id number] [facility] 06-28-2025 Note HNO ID: [id number] Author: NAGI RED MD Service: ? Author [...] change in her BP readings. Yesterday at OV in [place] it was 159/95. Supposed to hear back from regarding her Thyroid results and dosage from Dr. Caitlyn Rivrea, Division of Endo at [facility]. Greta Andres is a 35-year-old female [...] a referral to a specialist at the [facility] for gastroparesis management. 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 No surgical correction done. The father of the baby's brother born with a hole in his heart. Surgical correction was done. 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[facility]) Degenerative disc disease Disorders of sacrum 02/20/2013 Dysmenorrhea 04/11/2007 Exercise-induced asthma ([facility]) 03/22/2014 Fetus conceived on control 03/31/2012 [...] spinal stenosis 04/25/2024 Lupus (systemic lupus erythematosus) ([facility]) Migraine without aura and without status [...] Ureteral dilatation 03/22 (more content not included)... [facility] 06-27-2025 History of Present illness Narrative CC: Papillary thyroid carcinoma History of Present Illness: Greta Andres is a 35 y.o. female presenting for follow up of papillary thyroid carcinoma (TAYLOR initial stratification intermediate risk). She is s/p total thyroidectomy and central neck dissection on 07/31/[address] Martinez at [facility]. Pathology showed mutifocal PTC with the [...] foci measuring 0.6 cm with no MAKI. 09/2020 neck US showed right central hypoechoic [...] were removed uneventfully. She was evaluated for Goessel's disease due to significant weight gain and facial swelling in 2022. Am cortisol level after 1 mg DST was 3.2, 24 h urine cortisol was normal. She was noted to be profoundly hypothyroid around the same time. Reports being officially diagnosed with gastroparesis. 04/2024 neck US showed in the right central region two small lesions, likely benign LNs superior and anterior of the thyroidectomy bed measuring 0.4 x 0.2 x 0.4 cm and 0.4 x 0.2 x 0.7 cm. Interval History: The patient states her energy level is decreased at times. Has skin tags in neck. Has gastroparesis and gets nausea and vomiting. Is going to be seen at [facility] for it. Gets SOB. Coughs when eats. Has control implant and states had fallopian tubes removed. Gets a period about once a year. This Wednesday is having right kidney surgery for kidney stones then will have surgery on the left kidney for kidney stones. She denies heat intolerance, cold intolerance, chest pain, palpitations, tremor, diarrhea, constipation, neck pain, new neck masses, dysphagia, and changes in voice. Meds: Levothyroxine 200 mcg daily 5 days/week and 225 mcg daily 2 days/week - states takes it in AM, if vomits in AM will retake it in PM Labs: Date TSH Tg TgAbs 10/10 32 6.2 6.4 12/11 40 1.9 03/11 3.8 0.9 04/10 133 8.3 10.4 05/11 356 7.2 11 08/11 5.3 1.2 S/p right CND 10/11 150 6.4 <1.8 01/12 0.018 1.1 <1.8 06/11 0.381 0.5 <1.8 08/12 2.473 0.9 <1.8 08/12 >150 4.5 <1.8 (rhTSH-stimulated, MARTIN therapy) 10/12 105 0.2 <1.8 03/13 1.1 <0.1 <1.8 09/12 3.175 <0.1 <1.8 05/01/24 1.1 <0.1 <1.8 10/2024 89.100 04/2025 34.7 Review of Systems: As noted in the history above Physical Exam: Vitals: 06/27/25 1402 BP: (!) 159/95 Pulse: 80 Resp: 16 Temp: 98.1 degrees F (36.7 degrees C) TempSrc: Infrared SpO2: 98% Weight: 89.1 kg (196 lb 8 oz) Height: 1.651 m (5' 5) Body mass index is 32.7 kg/m . Constitutional: Well-developed, in no acute distress Neck: Surgical scar well-healed, no tenderness with palpation of anterior neck and supraclavicular regions, no discrete masses or enlarged lymph nodes noted on palpation of anterior neck and supraclavicular regions Cardiovascular: Regular rate and rhythm, radial pulses 2+ Respiratory: Respirations unlabored on room air, lungs CTA Musculoskeletal: Normal range of motion, normal tone Neurological: Alert, oriented Integumentary (Skin): Skin warm, no thinning Psychiatric: Mood appropriate, good eye contact Imaging: See separate note regarding neck US performed today All of the above documented by Vangie Jaramillo PA-C. Impression and plan below by Dr. Caitlyn Rivera. ATTENDING ATTESTATION I have personally seen, interviewed and examined this patient independently of Vangie Jaramillo PA-C. The plan was developed mutually at the time of the clinic visit. Vangie and I spoke with the patient and provided written and verbal instructions for the patient. The above note has been reviewed and edited by me as appropriate and I wrote the assessment and plan. Follow-up arrangements were made prior to the patient being discharged from the clinic. Assessment and Plan: Greta Andres is a [...] tumor board. Post-therapy scan showed activity within bilateral thyroid bed. Tg was undetectable after MARTIN. Papillary Thyroid Carcinoma: Neck US today without suspicious lesions. She has RUSS. Will check TSH and Tg battery today. Goal TSH 0.5-2.0 Postsurgical hypothyroidism: Levothyroxine 200 mcg daily 5 days/week and 225 mcg daily 2 days/week. Reports frequent vomiting with taking pills. Diagnosed with gastroparesis, [facility]. Post MARTIN sialadenitis S/p kenalog injection to bilateral parotid glands and placement of parotid duct stent bilaterally. Reports no symptoms. Follow up in 1 year. Caitlyn Rivera MD Hotel Sales Managerchef kitchen manager Department of Internal Medicine Division of Endocrinology, Diabetes and Metabolism [facility] documented in this encounter [facility] 06-27-2025 Instructions Stephanie Richards RN - 06/27/2025 2:20 PM EDT Labs today RTC in one year with Dr. Rivera documented in this encounter [facility] 06-27-2025 Procedure note Associated Ord er(s): CHG US SOFT TISSUE HEAD & NECK REAL TIME IMGE DOCM ULTRASOUND NOTE Images were taken through the central and lateral neck bilaterally. This reveals no residual tissue in the thyroid bed. RIGHT CENTRAL: No suspicious lesion. RIGHT LATERAL: No suspicious lesion LEFT CENTRAL: No suspicious lesions LEFT LATERAL: No suspicious nodes [facility] 06[facility]25 Procedure note Associated Ord er(s): CHG US SOFT TISSUE HEAD & NECK REAL TIME IMGE DOCM ULTRASOUND NOTE Images were taken through the central and lateral neck bilaterally. This reveals no residual tissue in the thyroid bed. RIGHT CENTRAL: No suspicious lesion. RIGHT LATERAL: No suspicious lesion LEFT CENTRAL: No suspicious lesions LEFT LATERAL: No suspicious nodes documented in this encounter [facility] 06-26-2025 Note HNO ID: [id number] Author: GEORGES HARDIN APRN.CNP Service: Anesthesiology Author Type: Nurse Practitioner Type: Progress Notes Filed: 06/26/2025 07:15 Note Text: ---- Summary: PreAnesthesia Review ---- SERVICE DATE: 06/26/2025 SERVICE TIME: 7:01 AM Surgeon: Roya Type of surgery: CYSTOSCOPY, RETROGRADE PYELOGRAM, LASER CYSTOURETHROSCOPY W/ URETEROSCOPY AND/OR PYELOSCOPY W/ LITHOTRIPSY HOLMIUM, INSERTION STENT DOUBLE J Patient scheduled for surgery on 06/29/2025 Surgery Location: [facility] HPI: Greta Andres is a 35 [...] 08/07/2013 Bipolar 1 disorder (HCC) 02/14/2018 Seeing [facility] Behavioral Medicine as of 01/2018 Bipolar 1 disorder (HCC) Chronic fatigue disorder 03/19/2015 Congenital heart defect (HCC) 03/31/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 No surgical correction done. The father of the baby's brother born with a hole in his heart. Surgical correction was done. 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[facility]) Degenerative disc disease Disorders of sacrum 02/20/2013 Dysmenorrhea 04/11/2007 Exercise-induced asthma ([facility]) 03/22/2014 Fetus conceived on control 03/31/2012 [...] spinal stenosis 04/25/2024 Lupus (systemic lupus erythematosus) ([facility]) Migraine without aura and without status migrainosus, not intractable 05/20/2017 Multiple thyroid nodules 07/26/2019 Neoplasm of uncertain behavior of skin of back Obesity, Class I, BMI 30-34.9 03/03/2023 Other and unspecified ovarian cyst Ovarian cyst Other joint derangement, not elsewhere classified, lower leg 08/20/2008 Papillary thyroid carcinoma ([facility]) 07/21/2019 PMH - PAST MEDICAL HISTORY OF r thumb broken Post-surgical hypothyroidism 08/25/2019 Primary thyroid papillary carcinoma ([facility]) 07/21/2019 PTSD (post-traumatic stress disorder) 02/14/2018 [...] No Comment: 2-3 (more content not included)... [facility] 06-25-2025 Note Addended by: GRETA TEMPLETON on: 06/25/2025 05:16 PM Modules accepted: Orders [facility] 06-25-2025 Miscellaneous Notes Addended by: GRETA TEMPLETON on: 06/25/2025 05:16 PM Modules accepted: Orders Stop Tramadol sending Rx Homer Greta Templeton DO Spoke to pt and she voiced her understanding, she did state if she remembers correctly she is fine with Homer. Please call the patient to talk to her to discuss that there isn't really anything stronger than Tramadol unfortunately. Looking back through records even in ER they gave Toradol or Tramadol . Opiods like Oxycodone are less recommended as they can worsen her gastroparesis , but can you ask to see how she did with Homer in the past and let me know Greta Templeton DO documented in this encounter [facility] 06-25-2025 Telephone encounter Note Stop Tramadol sending Rx Homer Greta Templeton DO [facility] 06-25-2025 Telephone encounter Note Spoke to pt and she voiced her understanding, she did state if she remembers correctly she is fine with Homer. [facility] 06-25-2025 Telephone encounter Note Please call the patient to talk to her to discuss that there isn't really anything stronger than Tramadol unfortunately. Looking back through records even in ER they gave Toradol or Tramadol . Opiods like Oxycodone are less recommended as they can worsen her gastroparesis , but can you ask to see how she did with Homer in the past and let me know Greta Templeton DO [facility] 06-15-2025 Note HNO ID: [id number] Author: GRETA TEMPLETON DO Service: ? Author Type: Physician Type: Progress Notes Filed: 06/15/2025 14:15 Note Text: [facility] [place] ESTABLISHED PATIENT NOTE/HISTORY AND PHYSICAL PATIENT: Greta [...] ) HISTORY OF PRESENT ILLNESS: Recording using [email or web address] software for draft documentation of the visit was discussed with the patient/authorized claim representative; all questions welcomed and answered. Patient/authorized claim representative agreed to proceed The patient was [...] 1 disorder (HCC) (02/14/2018), Bipolar 1 disorder (HCC), Chronic fatigue disorder (03/19/2015), Congenital heart defect (HCC) (03/31/2012), 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HCC), Degenerative disc disease, Disorders of sacrum (02/20/2013), [...] has never used (more content not included)... [facility] 06-15-2025 History of Present illness Narrative Images from the original note were not included. [facility] [place] ESTABLISHED PATIENT NOTE/HISTORY AND PHYSICAL PATIENT: Greta [...] ) HISTORY OF PRESENT ILLNESS: Recording using [email or web address] software for draft documentation of the visit was discussed with the patient/authorized claim representative; all questions welcomed and answered. Patient/authorized claim representative agreed to proceed The patient was [...] generalized, Back pain (08/07/2013), Bipolar 1 disorder ([facility]) (02/14/2018), Bipolar 1 disorder ([facility]), Chronic fatigue disorder (03/19/2015), Congenital heart defect ([facility]) (03/31/2012), 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[facility]), Degenerative disc disease, Disorders of sacrum (02/20/2013), Dysmenorrhea (04/11/2007), Exercise-induced asthma ([facility]) (03/22/2014), Fetus conceived on control (03/31/2012), Fibromyalgia, Gastroparesis (03/25/2024), GERD (gastroesophageal reflux disease) (03/22/2014), HALLUX VALGUS (01/23/2009), Hypertension, essential (07/06/2022), Irregular menstrual cycle (04/11/2007), Lactose intolerance (03/31/2012), Lumbago (07/27/2012), Lumbar degenerative disc disease (07/27/2012), Lumbar spinal stenosis (04/25/2024), Lupus (systemic lupus erythematosus) ([facility]), Migraine without aura and without status migrainosus, not intractable (05/20/2017), Multiple thyroid nodules (07/26/2019), Neoplasm of uncertain behavior of skin of back, Obesity, Class I, BMI 30-34.9 (03/03/2023), Other and unspecified ovarian cyst, Other joint derangement, not elsewhere classified, lower leg (08/20/2008), 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 documented in this encounter [facility] 06-15-2025 History of Present illness Narrative Radiology Service Progress Note PATIENT NAME: Great Andres DATE OF SERVICE: June 15, 2025 [...] PATIENT PRESENTS WITH AN IMPLANTABLE OR ATTACHED GEAR ROLLER: No RADIOLOGY DEPARTMENT: CT; Exam(s) Completed: Flank Study PERIPHERAL IV DATA: Not applicable SIGNED BY: RT Vanessa(Aniket) June 15, 2025 12:46 PM documented in this encounter [facility] 06-15-2025 Note HNO ID: [id number] Author: GUY BOWMAN RT(R) Service: Radiology Author Type: Customer Support Analyst Type: Progress Notes Filed: 06/15/2025 12:46 Note [...] PATIENT PRESENTS WITH AN IMPLANTABLE OR ATTACHED GEAR ROLLER: No RADIOLOGY DEPARTMENT: CT; Exam(s) Completed: Flank Study PERIPHERAL IV DATA: Not applicable SIGNED BY: RT Vanessa(Aniket) June 15, 2025 12:46 PM [facility] 06-15-2025 Note HNO ID: [id number] Author: YANCI NAVARRETE RN Service: ? Author Type: Registered Nurse Type: Procedures Filed: 06/15/2025 14:15 Note Text: Medication requested and received from pharmacy. Injection given IM in left deltoid sites. Pt jamaal well. Post injection instructions given. Educated on side effects and s/s of allergic reaction. No further c/o or concerns. Verbalized understanding. Yanci Navarrete RN [facility] 06-15-2025 Procedure note Medication requested and received from pharmacy. Injection given IM in left deltoid sites. Pt jamaal well. Post injection instructions given. Educated on side effects and s/s of allergic reaction. No further c/o or concerns. Verbalized understanding. Yanci Navarrete RN [facility] 06-15-2025 Procedure note Medication requested and received from pharmacy. Injection given IM in left deltoid sites. Pt jamaal well. Post injection instructions given. Educated on side effects and s/s of allergic reaction. No further c/o or concerns. Verbalized understanding. Yanci Navarrete RN documented in this encounter [facility] 06-12-2025 Telephone encounter Note I sent in the refill for 1 month. Please have her schedule with Carlie Baird APRN.CNP [facility] 06-12-2025 Miscellaneous Notes I sent in the refill for 1 month. Please have her schedule with Carlie Baird APRN.MARGARITA Is that the soonest appointment for Carlie? [...] by mouth once a day for pain, janiya Pierson MA June 11, 2025 8:28 AM documented in this encounter [facility] 06-11-2025 Telephone encounter Note Is that the soonest appointment for Carlie? It has already been over 3 months since the patient was seen. I am happy to provide a bridge prescription but this would be an additional month. Thank you Oscar Mcmillan PA-C [facility] Work Phone: 06-11-2025 Telephone encounter Note Prescription [...] by mouth once a day for pain, janiya Pierson MA June 11, 2025 8:28 AM [facility] 06-07-2025 Telephone encounter Note Thank you. [facility] 06-07-2025 Miscellaneous Notes Thank you. Spoke with patient advised pharmacy unable to fill oral Toradol. She will continue Tylenol and Ibuprofen for pain management. Linnette Douglas MA Received call from [facility] pharmacy - they unable to fill oral Ketorolac 10 mg. Toradol oral has to be prescribed as a continuation of care from IM or IV. Call back to [facility] pharmacy - [phone] Linnette Douglas MA documented in this encounter [facility] 06-07-2025 Telephone encounter Note Spoke with patient advised pharmacy unable to fill oral Toradol. She will continue Tylenol and Ibuprofen for pain management. Linnette Douglas MA [facility] 06-07-2025 Telephone encounter Note Received call from [facility] pharmacy - they unable to fill oral Ketorolac 10 mg. Toradol oral has to be prescribed as a continuation of care from IM or IV. Call back to [facility] - [phone] Linnette Douglas MA [facility] 06-07-2025 Instructions Sarah Miramontes APRN.MARGARITA - 06/07/2025 [...] your diet without supplements if you eat [id number] servings of calcium-rich food. Many foods and [...] [email or web address]%[email or web address] [email or web address] documented in this encounter [facility] 06-07-2025 History of Present illness Narrative Images from the original note were not included. Former[facility] [place] [facility] [place] UROL [place] EXCHANGE NEW PATIENT UROLOGY VISIT 06/07/2025 10:21 AM PATIENT NAME: Greta Andres DATE OF : 1990 TODAY'S DATE: 06/07/2025 Referring Provider: Nagi Red [address] [place] [address] Referring Note Reviewed: Yes Chief Complaint: kidney stones, right flank pain History of Present Illness: Ms. Andres is a 35 year old female who presents to the office regarding kidney stones and right flank pain since February 2025. 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 No surgical correction done. The father of the baby's brother born with a hole in his heart. Surgical correction was done. 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[facility]) Degenerative disc disease Disorders of sacrum 02/20/2013 Dysmenorrhea 04/11/2007 Exercise-induced asthma ([facility]) 03/22/2014 Fetus conceived on control 03/31/2012 [...] , Taking? , Authorizing Provider Renard Almodovar APRN.SHELF DRIER OPERATOR Medication magnesium glycinate 100 mg magnesium capsule, Sig Take 2 capsules by mouth two times a day., Start Date 11/02/24, End Date , Taking? , Authorizing Provider Renard Almodovar APRN.SHELF DRIER OPERATOR Medication riboflavin, vitamin B2, 400 mg tab, Sig Take 1 tablet by mouth once daily., Start Date 11/02/24, End Date , Taking? , Authorizing Provider Renard Almodovar APRN.SHELF DRIER OPERATOR Medication hydroCHLOROthiazide 25 mg tablet, Sig Take [...] End Date , Taking? , Authorizing Provider Trever Barrera Medication albuterol HFA (VENTOLIN HFA) 90 mcg/actuation inhaler, Sig Inhale 2 Puffs as instructed every 6 hours as needed for wheezing/shortness of breath., Start Date 07/06/22, End Date , Taking? , Authorizing Provider Christine eDan PA-C Medication levothyroxine (SYNTHROID) 25 mcg tablet, [...] End Date , Taking? , Authorizing Provider Trever Barrera ALLERGIES Allergen Reactions Adhesive Rash Morphine Sulfate [...] Date Value 04/24/2024 Negative 07/19/2017 neg Specific [place], Ur (no units) Date Value 04/24/2024 1.021 [...] LUCACREA, LUCREACL, LWK, LUSUL in the last [id number] hours. Physical Exam Vitals and nursing note [...] possible surgery for kidney stones. Sarah Miramontes APRN.SHELF DRIER OPERATOR Consultation requested by Nagi Red [address] [place] [address] for an opinion regarding Greta Andres patient and my final recommendations will be communicated back to the requesting physician by way of shared Medical record or letter via US mail. Recording using [email or web address] software for draft documentation of the visit was discussed with the patient/authorized claim representative; all questions welcomed and answered. Patient/authorized claim representative agreed to proceed documented in this encounter [facility] 06-07-2025 Note HNO ID: [id number] Author: SARAH MIRAMONTES APRN.SHELF DRIER OPERATOR Service: ? Author Type: Nurse Practitioner Type: Progress Notes Filed: 06/07/2025 14:10 Note Text: [facility] [place] [facility] [place] UROL [place] EXCHANGE NEW PATIENT UROLOGY VISIT 06/07/2025 10:21 AM PATIENT NAME: Greta Andres DATE OF : 1990 TODAY'S DATE: 06/07/2025 Referring Provider: Nagi Red [address] [place] [address] Referring Note Reviewed: Yes Chief Complaint: kidney stones, right flank pain History of Present Illness: Ms. Andres is a 35 year old female who presents to the office regarding kidney stones and right flank pain since February 2025. 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 No surgical correction done. The father of the baby's brother born with a hole in his heart. Surgical correction was done. 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[facility]) Degenerative disc disease Disorders of sacrum 02/20/2013 Dysmenorrhea 04/11/2007 Exercise-induced asthma ([facility]) 03/22/2014 Fetus conceived on control 03/31/2012 [...] status migrainosus, n (more content not included)... [facility] 05-24-2025 Telephone encounter Note Appt has already been scheduled with [facility] on 06/07/25. Phil Millan MA [facility] 05-24-2025 Miscellaneous Notes Appt has already been scheduled with [facility] on 06/07/25. Phil Millan MA Please assist patient in scheduling an appt with Urology as consulted. Phil Millan MA Order placed for urology consult. documented in this encounter [facility] 05-24-2025 Telephone encounter Note Please assist patient in scheduling an appt with Urology as consulted. Phil Millan MA [facility] 05-23-2025 Telephone encounter Note Order placed for urology consult. [facility] 05-21-2025 History of Present illness Narrative Radiology [...] PATIENT PRESENTS WITH AN IMPLANTABLE OR ATTACHED GEAR ROLLER: No RADIOLOGY DEPARTMENT: Ultrasound PERIPHERAL IV DATA: Not applicable SIGNED BY: Mackenzie Heller RDMS May 21, 2025 10:18 AM documented in this encounter [facility] 05-21-2025 Note HNO ID: [id number] Author: MACKENZIE HELLER RDMS Service: ? Author Type: Customer Support Analyst Type: Progress Notes Filed: 05/21/2025 10:18 Note [...] PATIENT PRESENTS WITH AN IMPLANTABLE OR ATTACHED GEAR ROLLER: No RADIOLOGY DEPARTMENT: Ultrasound PERIPHERAL IV DATA: Not applicable SIGNED BY: Mackenzie Heller RDMS May 21, 2025 10:18 AM [facility] 05-18-2025 Telephone encounter Note Pt returned call and given provider's message below with verbalized understanding. Pt reports she has her inhalers and has been using them. Pt reports she is trying to schedule the testing and will call again today to see if she can schedule. 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 Pt uses [facility]. Ada Carson LPN Let patient know her insurance is refusing the CT. They require an US to be done first. This will most likely be non-diagnostic and then we can get the CT. US order placed and order for CT cancelled. documented in this encounter [facility] 05-18-2025 Telephone encounter Note Called and left a voicemail for the Patient to call back and ask for a nurse to receive the providers message. Darline Roldan RN [facility] 05-17-2025 Telephone encounter Note My assumption was [...] types of treatment will even be beneficial. 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 Pt was asking what provider would recommend she do for her breathing issues. Please call and advise. Darline Roldan RN T [facility] 05-17-2025 Telephone encounter Note Advise patient I want her to complete the breathing studies I ordered at her recent office visit. [facility] 05-17-2025 Telephone encounter Note Pt notified of [...] via or can call pt. Pt uses [facility]. Ada Carson LPN [facility] 05-17-2025 Telephone encounter Note Let patient know her insurance is refusing the CT. They require an US to be done first. This will most likely be non-diagnostic and then we can get the CT. US order placed and order for CT cancelled. [facility] 05-17-2025 Telephone encounter Note Pt was called and scheduled for 05/24/25 with RR at 9:40 am. Phil Millan MA [facility] 05-17-2025 Telephone encounter Note Pt called and scheduled for 2 week BP check on 05/24/25 at 9:40 am with RR. Pt requested this day due to Daughter having appt at this location around this time. Phil Millan MA [facility] 05-17-2025 Miscellaneous Notes Pt called and scheduled for 2 week BP check on 05/24/25 at 9:40 am with RR. Pt requested this day due to Daughter having appt at this location around this time. Phil Millan MA Pt has been sent a [employer] message notifying her that she needs a BP follow up from 05/08/25 with AKIKO. Will wait pt response via [employer]. Will keep this encounter open until appt is made. Watch [employer] message to make sure viewed by pt. [...] Jace Wallis MA documented in this encounter [facility] 05-17-2025 Miscellaneous Notes Pt was called and scheduled for 05/24/25 with RR at 9:40 am. Phil Millan MA documented in this encounter [facility] 05-16-2025 Telephone encounter Note Pt has been sent a [employer] message notifying her that she needs a BP follow up from 05/08/25 with [facility]KO. Will wait pt response via [employer]. Will keep this encounter open until appt is made. Watch [employer] message to make sure viewed by pt. If not will call to schedule. Phil Millan MA [facility] 05-15-2025 Telephone encounter Note Yes needs a f/u BP check in 2 weeks and a complete PE scheduled in jul 2025. [facility] 05-15-2025 Note HNO ID: [id number] Author: PHIL MILLAN MA Service: ? Author Type: [employer] Type: Progress Notes Filed: 05/15/2025 09:32 Note Text: View External Imaging - MRCP Abdomen without contrast [ID [id number]] [facility] 05-15-2025 History of Present illness Narrative View External Imaging - MRCP Abdomen without contrast [ID [id number]] documented in this encounter [facility] 05-09-2025 Telephone encounter Note Note from Dr [...] set up in jul. Jace Wallis MA [facility] 05-08-2025 Instructions Nagi Red MD - 05/08/2025 9:18 AM EDT [...] a referral to the Gastroenterology department at [facility] to connect you with a specialist in gastroparesis. - Continue using the scopolamine patch as prescribed. If your symptoms worsen or you experience severe vomiting episodes, please seek medical attention. We discussed your shortness of breath and lung health: - I will order a methacholine challenge test to evaluate your airway sensitivity. This test will likely be performed at [place]. During the test, you will inhale a [...] - Await the referral to Gastroenterology at [facility] for further evaluation of your gastroparesis. - Once the CT flank study results are available, we will decide on the need for a urology referral. Please contact our office if you have any questions or if your symptoms worsen. documented in this encounter [facility] 05-08-2025 History of Present illness Narrative Chief [...] improvement to 34.7. 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 - Referred to Gastroenterology at [facility] for specialized management of gastroparesis. - [...] which included preparing to see the patient, qcvg-nq-mhuc patient care, completing clinical documentation, performing a medically appropriate examination, counseling and educating the patient/family/caregiver and ordering medications, tests, or procedures. Recording using [email or web address] software for draft documentation of the visit was discussed with the patient/authorized claim representative; all questions welcomed and answered. Patient/authorized claim representative agreed to proceed documented in this encounter [facility] 05-08-2025 Note HNO ID: [id number] Author: NAGI RED MD Service: ? Author [...] improvement to 34.7. 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 No surgical correction done. The father of the baby's brother born with a hole in his heart. Surgical correction was done. 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[facility]) Degenerative disc disease Disorders of sacrum 02/20/2013 Dysmenorrhea 04/11/2007 Exercise-induced asthma ([facility]) 03/22/2014 Fetus conceived on control 03/31/2012 [...] spinal stenosis 04/25/2024 Lupus (systemic lupus erythematosus) ([facility]) Migraine without aura a (more content not included)... [facility] 05-07-2025 Telephone encounter Note Patient has appointment for tomorrow. Jace Wallis MA [facility] 05-07-2025 Miscellaneous Notes Patient has appointment for tomorrow. Jace Wallis MA Pt active on Twonqt. Sent message to pt asking for a call back regarding result/recommendation below from Provider. Will watch for message to be reviewed. Review all results below. Phil Millan MA Called and left message on patients voicemail to return call to the office and ask to speak with a triage nurse. Phil Millan MA Let patient [...] no plural effusion. documented in this encounter [facility] 05-07-2025 Note HNO ID: [id number] Author: NAGI RED MD Service: ? Author [...] visit. Either the patient or their legal claim representative has been informed of the risks [...] 08/07/2013 Bipolar 1 disorder (HCC) 02/14/2018 Seeing [facility] Behavioral Medicine as of 01/2018 Bipolar [...] History FAMILY HISTORY (more content not included)... [facility] 05-07-2025 History of Present illness Narrative This [...] visit. Either the patient or their legal claim representative has been informed of the risks [...] 08/07/2013 Bipolar 1 disorder (HCC) 02/14/2018 Seeing [facility] Behavioral Medicine as of 01/2018 Bipolar [...] spinal stenosis 04/25/2024 Lupus (systemic lupus erythematosus) ([facility]) Migraine without aura and without status [...] Td or Tdap) due on 03/19/2025 Covid-19 Vaccine(1 - 2024-25 season) due on 09/21/2025 Annual PCP Team Chronic Disease Visit due on 12/15/2025 Hepatitis B Vaccine Completed Influenza Vaccine Completed HIV Screening Completed Data reviewed Assessment and Plan Nagi Red MD Recording using [email or web address] software for draft documentation of the visit was discussed with the patient/authorized claim representative; all questions welcomed and answered. Patient/authorized claim representative agreed to proceed documented in this encounter [facility] 05-04-2025 Telephone encounter Note Patient calling with request for message from Dr Red's office Patient denies any new or worsening symptoms of which a provider is not aware: Yes. Message given and pt conf to [facility] scheduling (see other telephone encounter) [facility] 05-04-2025 Miscellaneous Notes Patient calling with request for message from Dr Red's office Patient denies any new or worsening symptoms of which a provider is not aware: Yes. Message given and pt conf to [facility] for scheduling (see other telephone encounter) documented in this encounter [facility] 05-04-2025 Telephone encounter Note Pt active on Twonqt. Sent message to pt asking for a call back regarding result/recommendation below from Provider. Will watch for message to be reviewed. Review all results below. Phil Millan MA [facility] 05-03-2025 Telephone encounter Note Called and left message on patients voicemail to return call to the office and ask to speak with a triage nurse. Phil Millan MA [facility] 05-03-2025 Telephone encounter Note Let patient know [...] plural effusions she seen on her MRCP. [facility] 05-02-2025 Telephone encounter Note Let patient know the chest x-ray showed no plural effusion. [facility] 05-02-2025 History of Present illness Narrative Radiology [...] PATIENT PRESENTS WITH AN IMPLANTABLE OR ATTACHED GEAR ROLLER: No RADIOLOGY DEPARTMENT: General X-ray: Exam(s) Completed: Chest X-Ray PERIPHERAL IV DATA: Not applicable SIGNED BY: Gema Rudolph May 02, 2025 3:11 PM documented in this encounter [facility] 05-02-2025 Note HNO ID: [id number] Author: LIZZETH BENJAMIN Tech Service: ? Author [...] PATIENT PRESENTS WITH AN IMPLANTABLE OR ATTACHED GEAR ROLLER: No RADIOLOGY DEPARTMENT: General X-ray: Exam(s) Completed: Chest X-Ray PERIPHERAL IV DATA: Not applicable SIGNED BY: Gema Rudolph May 02, 2025 3:11 PM [facility] 05-02-2025 Telephone encounter Note Patient notified and scheduled. She is coming in today to get xray and labs. Jace Wallis MA [facility] 05-02-2025 Miscellaneous Notes Patient notified and scheduled. [...] we can pull the MRCP report off [facility] system? If not can we contact [...] came back today. documented in this encounter [facility] 05-01-2025 Telephone encounter Note In the next 1-2 weeks. I placed an order for her to get a chest x-ray and thyroid las as soon as possible. I also need a copy of the last office note for Dr. Cole. [facility] 05-01-2025 Telephone encounter Note Spoke with patient. [...] to see the patient. Jace Wallis MA [facility] 04-30-2025 Telephone encounter Note Let patient know I was able to get the ERCP report and review them. Is she having shortness of breath and or leg edema? Does she know the last time her TSH was checked? [facility] 04-27-2025 Telephone encounter Note Printed and given to PCP. Jace Wallis MA [facility] 04-26-2025 Telephone encounter Note Can we see if we can pull the MRCP report off [facility] system? If not can we contact DR. Sheriff office and have them fx us a copy of it. [facility] 04-26-2025 Telephone encounter Note Patient calls and states that Dr. Sheriff's office had a MRCP test done. Patient reports that it came back as Bilateral Pleural Effusion. Patient states that Dr. Cole's office wants PCP to advise on this. Testing was done on Wednesday. Results came back today. [facility] 04-18-2025 Note HNO ID: [id number] Author: ADA CARSON LPN Service: ? Author Type: LICENSED NURSE Type: Progress Notes Filed: 04/18/2025 09:44 Note Text: Scan on 04/17/2025 10:15 PM by ProviderDami PA-C: Consultation - Emergency Medicine [facility] 04-18-2025 History of Present illness Narrative Scan on 04/17/2025 10:15 PM by ProviderDami PA-C: Consultation - Emergency Medicine documented in this encounter [facility] 04-17-2025 Telephone encounter Note Noted. [facility] 04-17-2025 Miscellaneous Notes Noted. Patient calling said she has been vomiting all night, advised to go back to Er for evaluation, need IV hydration. Patient said she needs to have the MRCP done, was told may have gall stone in the duct blocking things. Patient said she was going to go back to [facility] ER, cancelled her ER follow up appt scheduled for today with PCP. documented in this encounter [facility] 04-17-2025 Telephone encounter Note Patient calling said she has been vomiting all night, advised to go back to Er for evaluation, need IV hydration. Patient said she needs to have the MRCP done, was told may have gall stone in the duct blocking things. Patient said she was going to go back to [facility] ER, cancelled her ER follow up appt scheduled for today with PCP. [facility] 03-20-2025 Telephone encounter Note Contacted patient and she went to [facility] ER. She is scheduled to Urology Dr. Gonzáles. Patient also set up for ER follow up with Dr. Red. Jace Wallis MA [facility] 03-20-2025 Miscellaneous Notes Contacted patient and she went to [facility] ER. She is scheduled to Urology Dr. Gonzáles. Patient also set up for ER follow up with Dr. Red. Jace Wallis MA documented in this encounter [facility] 03-20-2025 Note HNO ID: [id number] Author: ADA CARSON LPN Service: ? Author Type: LICENSED NURSE Type: Progress Notes Filed: 03/20/2025 07:32 Note Text: Scan on 03/20/2025 7:19 AM by ProviderDami PA-C: Consultation - Emergency Medicine [facility] 03-20-2025 History of Present illness Narrative Scan on 03/20/2025 7:19 AM by Dami Barrera PA-C: Consultation - Emergency Medicine documented in this encounter [facility] 03-19-2025 Telephone encounter Note Called and spoke to the patient and relayed below. Patient verbalized understanding. [facility] 03-19-2025 Miscellaneous Notes Called and spoke to the patient and relayed below. Patient verbalized understanding. Hold the tramadol while taking the Homer. I am okay with this Patient receives Tramadol 50 mg tablet: take 1-2 pill PO every day for pain. Called and spoke with the patient and she states they prescribed her hydrocodone-acetaminophen 5-325 #8 pills. Routing to provider for review. Patient was seen at [facility] for kidney stones today. Patient was given an RX for pain medication and questions if she can shredder picker or if picking up a pain medication from a different doctor is in breach of her contact with Dr. Contreras. Call [phone]. Patient is requesting a return call as soon as possible, she is experiencing significant pain from stones. documented in this encounter [facility] 03-19-2025 Telephone encounter Note Hold the tramadol while taking the Homer. I am okay with this [facility] 03-19-2025 Telephone encounter Note Patient receives Tramadol 50 mg tablet: take 1-2 pill PO every day for pain. Called and spoke with the patient and she states they prescribed her hydrocodone-acetaminophen 5-325 #8 pills. Routing to provider for review. [facility] 03-19-2025 Telephone encounter Note Patient was seen at [facility] for kidney stones today. Patient was given an RX for pain medication and questions if she can shredder picker or if picking up a pain medication from a different doctor is in breach of her contact with Dr. Contreras. Call [phone]. Patient is requesting a return call as soon as possible, she is experiencing significant pain from stones. [facility] 03-02-2025 Telephone encounter Note Resent the rx [facility] 03-02-2025 Miscellaneous Notes Resent the rx [...] for current RX? Please advise jhoan call [facility] at [phone] with recommendations. Lisa Edmond documented in this encounter [facility] 03-02-2025 Note Addended by: CARLIE BROWNLEE on: 03/02/2025 09:59 AM Modules accepted: Orders [facility] 03-02-2025 Miscellaneous Notes Addended by: CARLIE BROWNLEE on: 03/02/2025 09:59 AM Modules accepted: Orders documented in this encounter [facility] 03-02-2025 Telephone encounter Note Pharmacist called [...] for current RX? Please advise jhoan call [facility] at [phone] with recommendations. Lisa Edmond [facility] 03-02-2025 Note HNO ID: [id number] Author: CARLIE BROWNLEE APRN.MARGARITA Service: ? Author Type: Nurse Practitioner Type: Progress Notes Filed: 03/02/2025 09:34 Note Text: [facility] for [facility] follow up [...] on March 08 (more content not included)... [facility] 03-02-2025 History of Present illness Narrative Images from the original note were not included. Subjective Greta Andres presents to [facility] Department for a follow up [...] which included preparing to see the patient, akpe-ix-turg patient care, completing clinical documentation, performing a [...] above and verbalized understanding. Carlie Brownlee APRN, SHELF DRIER OPERATOR March 02, 2025 documented in this encounter [facility] 02-19-2025 Telephone encounter Note Advised patient via telephone that her upcoming appointment with Dr. Contreras does not need to be postponed, as this appointment is for a new problem (cervical/thoracic rather than lumbar). Patient verbalized understanding and voiced no additional questions/concerns. Patient to see Dr. Contreras as scheduled. [facility] 02-19-2025 Miscellaneous Notes Advised patient via [...] completes physical therapy. Please call patient at [phone]. documented in this encounter [facility] 02-19-2025 Telephone encounter Note Patient left message on nurse VM 02/19/25 at 11:37 asking if she should postpone her appointment with Dr. Contreras on 02/26/25 until after she completes physical therapy. Please call patient at [phone]. [facility] 02-16-2025 Note HNO ID: [id number] Author: JACE WALLIS MA Service: ? Author Type: [employer] Type: Progress Notes Filed: 02/16/2025 16:03 Note Text: Scan on 02/12/2025 9:28 PM by ProviderDami PA-C: GI - gastric emptying study Jace Wallis MA [facility] 02-16-2025 History of Present illness Narrative Scan on 02/12/2025 9:28 PM by ProviderDami PA-C: GI - gastric emptying study Jace Wallis MA documented in this encounter [facility] 02-08-2025 Note Addended by: Kate GODWIN on: 02/08/2025 03:08 PM Modules accepted: Orders [facility] 02-08-2025 Miscellaneous Notes Addended by: NAOMI [...] MRI order placed 05/16/2024. PT: Not completed [employer] message sent. PT order pended for provider review. Routing to provider. documented in this encounter [facility] 02-08-2025 Telephone encounter Note Procedure: Lumbar [...] pended for provider review. Routing to provider. [facility] 02-07-2025 Note HNO ID: [id number] Author: JACE WALLIS MA Service: ? Author Type: [employer] Type: Progress Notes Filed: 02/07/2025 17:19 Note Text: Scan on 02/02/2025 1:13 PM by Provider, External, PA-C: Miscellaneous Lab Scan on 02/02/2025 2:41 PM by Provider External, PA-C: Miscellaneous Lab Scan on 02/03/2025 7:48 PM by Provider External, PA-C: Miscellaneous Lab Scan on 02/05/2025 5:37 PM by Provider External, PA-C: Miscellaneous Lab Scan on 02/06/2025 8:10 AM by Provider External, PAContrerasC: Miscellaneous Lab Jace Wallis MA [facility] 02-07-2025 History of Present illness Narrative Scan on 02/02/2025 1:13 PM by Provider, External, PA-C: Miscellaneous Lab Scan on 02/02/2025 2:41 PM by Provider External, PA-C: Miscellaneous Lab Scan on 02/03/2025 7:48 PM by Provider External, PA-C: Miscellaneous Lab Scan on 02/05/2025 5:37 PM by Provider External, PA-C: Miscellaneous Lab Scan on 02/06/2025 8:10 AM by ProviderDami PA-C: Miscellaneous Lab Jace Wallis MA documented in this encounter [facility] 01-29-2025 Note HNO ID: [id number] Author: ADA CARSON LPN Service: ? Author Type: LICENSED NURSE Type: Progress Notes Filed: 01/29/2025 07:21 Note Text: Scan on 01/26/2025 2:38 PM by Provider, External, PA-C: Hematology Scan on 01/26/2025 6:12 PM by ProviderDami PA-C: Chemistry [facility] 01-29-2025 History of Present illness Narrative Scan on 01/26/2025 2:38 PM by ProviderDami PA-C: Hematology Scan on 01/26/2025 6:12 PM by ProviderDami PA-C: Chemistry documented in this encounter [facility] 01-05-2025 Note HNO ID: [id number] Author: TOMAS ALEXIS APRN.SHELF DRIER OPERATOR Service: ? Author Type: Nurse Practitioner Type: Progress Notes Filed: 01/05/2025 08:42 Note Text: This note was created using Giftbar. Elida Andres is a 34 year old [...] to start antibiotics. She will otherwise use ribw-aee-ajgyezd treatments as necessary for symptomatic relief. - AMOXICILLIN 875 MG-POTASSIUM CLAVULANATE 125 MG TABLET Tomas Alexis APRN.CNP [facility] 01-05-2025 History of Present illness Narrative This note was created using Giftbar. Subjective Greta Andres is a 34 year [...] to start antibiotics. She will otherwise use xwgp-czk-eccqkxf treatments as necessary for symptomatic relief. - AMOXICILLIN 875 MG-POTASSIUM CLAVULANATE 125 MG TABLET Tomas Alexis APRN.SHELF DRIER OPERATOR documented in this encounter [facility] 12-15-2024 Note HNO ID: [id number] Author: RENARD ALMODOVAR APRN.MARGARITA Service: ? Author [...] 08/07/2013 Bipolar 1 disorder (HCC) 02/14/2018 Seeing [facility] Behavioral Medicine as of 01/2018 Bipolar [...] total thyroidectomy 07/31/2019 Sacroiliitis, not elsewhere classified ([facility]) 02/20/2013 SI (sacroiliac) joint dysfunction 11/06/2015 [...] diaphoretic, dizzy Curr (more content not included)... [facility] 12-15-2024 History of Present illness Narrative [...] 08/07/2013 Bipolar 1 disorder (HCC) 02/14/2018 Seeing [facility] Behavioral Medicine as of 01/2018 Bipolar [...] spinal stenosis 04/25/2024 Lupus (systemic lupus erythematosus) ([facility]) Migraine without aura and without status migrainosus, not intractable 05/20/2017 Multiple thyroid nodules 07/26/2019 Neoplasm of uncertain behavior of skin of back Obesity, Class I, BMI 30-34.9 03/03/2023 Other and unspecified ovarian cyst Ovarian cyst Other joint derangement, not elsewhere classified, lower leg 08/20/2008 Papillary thyroid carcinoma ([facility]) 07/21/2019 PMH - PAST MEDICAL HISTORY OF r thumb broken Post-surgical hypothyroidism 08/25/2019 Primary thyroid papillary carcinoma ([facility]) 07/21/2019 PTSD (post-traumatic stress disorder) 02/14/2018 PTSD (post-traumatic stress disorder) S/P total thyroidectomy 07/31/2019 Sacroiliitis, not elsewhere classified ([facility]) 02/20/2013 SI (sacroiliac) joint dysfunction 11/06/2015 [...] capsules by mouth two times a day. Glmou-2-ECV-EPA-Fish Oil (FISH OIL) 1,000 (120-180) mg cap [...] - SUMATRIPTAN 50 MG TABLET Renard Almodovar APRN.SHELF DRIER OPERATOR documented in this encounter [facility] 12-14-2024 History of Present illness Narrative VIRTUAL VISIT PROGRESS NOTE This is a virtual visit using [employer] Zoom Video Visit. It required patient-provider interaction for the medical decision making as documented below. I have communicated my name and active licensure. The patient's identity and physical location were verified at the time of this visit. Either the patient or their legal claim representative has been informed of the risks [...] 08/07/2013 Bipolar 1 disorder (HCC) 02/14/2018 Seeing [facility] Behavioral Medicine as of 01/2018 Bipolar [...] capsules by mouth two times a day. Yeijm-0-DXU-EPA-Fish Oil (FISH OIL) 1,000 (120-180) mg cap [...] which included preparing to see the patient, yyca-bz-bhgj patient care, completing clinical documentation, and ordering medications, tests, or procedures Carlie Brownlee APRN.CNP documented in this encounter [facility] 12-14-2024 Note HNO ID: [id number] Author: CARLIE BROWNLEE APRN.CNP Service: ? Author Type: Nurse Practitioner Type: Progress Notes Filed: 12/14/2024 18:02 Note Text: VIRTUAL VISIT PROGRESS NOTE This is a virtual visit using [employer] Video Visit. It required patient-provider interaction for the medical decision making as documented below. I have communicated my name and active licensure. The patient's identity and physical location were verified at the time of this visit. Either the patient or their legal claim representative has been informed of the risks [...] 08/07/2013 Bipolar 1 disorder (HCC) 02/14/2018 Seeing [facility] Behavioral Medicine as of 01/2018 Bipolar [...] classified, lower leg 08/20/2008 Papillary thyroid carcinoma ([facility]) 07/21/2019 PMH - PAST MEDICAL HISTORY OF r thumb broken Post-surgical hypothyroidism 08/25/2019 Primary thyroid papillary carcinoma ([facility]) 07/21/2019 PTSD (post-traumatic stress disorder) 02/14/2018 PTSD (post-traumatic stress disorder) S/P total thyroidectomy 07/31/2019 Sacroiliitis, not elsewhere classified ([facility]) 02/20/2013 SI (sacroiliac) joint dysfunction 11/06/2015 [...] No Current Outpatien (more content not included)... 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 Stephanie Dai RN Please see pt message and advise. Phil Millan MA documented in this encounter [facility] 11-02-2024 Telephone encounter Note Please see pt message and advise. Phil Millan MA [facility] 11-02-2024 Note HNO ID: [id number] Author: RENARD ALMODOVAR APRN.SHELF DRIER OPERATOR Service: ? Author Type: Nurse Practitioner Type: [...] 08/07/2013 Bipolar 1 disorder (HCC) 02/14/2018 Seeing [facility] Behavioral Medicine as of 01/2018 Bipolar [...] total thyroidectomy 07/31/2019 Sacroiliitis, not elsewhere classified ([facility]) 02/20/2013 SI (sacroiliac) joint dysfunction 11/06/2015 [...] 50 mg t (more content not included)... [facility] 11-02-2024 History of Present illness Narrative [...] 08/07/2013 Bipolar 1 disorder (HCC) 02/14/2018 Seeing [facility] Behavioral Medicine as of 01/2018 Bipolar [...] total thyroidectomy 07/31/2019 Sacroiliitis, not elsewhere classified ([facility]) 02/20/2013 SI (sacroiliac) joint dysfunction 11/06/2015 [...] 100 MG ( GLYCINATE) CAPSULE - OMEGA 0-EDK-FFT-FISH OIL 1,000 MG (120 MG-180 MG) CAPSULE - RIBOFLAVIN (VITAMIN B2) 400 MG TABLET Renard Almodovar APRN.SHELF DRIER OPERATOR documented in this encounter [facility] 10-27-2024 Telephone encounter Note Pt notified of results and instructions. Pt verbalizes understanding. Pt confirms she still sees Dr Rivera. Copy of lab results faxed to his office at [phone]. Ada Carson LPN [facility] 10-27-2024 Miscellaneous Notes Pt notified of results and instructions. Pt verbalizes understanding. Pt confirms she still sees Dr Rivera. Copy of lab results faxed to his office at [phone]. Ada Carson LPN Let patient know that her TSH is 89. 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 We can fax the labs to them. Please confirm that she still see Dr. Caitlyn Rivera at [facility]. Her one inflammatory marker is elevated but otherwise labs are normal. Christine Dean PA-C documented in this encounter [facility] 10-27-2024 Telephone encounter Note Let patient know that her TSH is 89. 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 We can fax the labs to them. Please confirm that she still see Dr. Caitlyn Rivera at [facility]. Her one inflammatory marker is elevated but otherwise labs are normal. Christine Dean PA-C [facility] 10-26-2024 Note HNO ID: [id number] Author: CHRISTINE DEAN PA-C Service: ? Author Type: Physician Hearings Reporter Type: Progress Notes Filed: 10/26/2024 08:20 Note Text: Chief Complaint Patient presents with: ER F/U: migraines HPI Greta Andres is a 34 year old female who presents here today for Above Complaints.. Patient reports migraines for the past 2 weeks. Has been all day. Very little improvement with treatments. Was seen in [facility], and [facility]. Toradol injection at [facility] did give temporary relief. Otherwise nothing [...] do her job. 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 With head movement, kneeling to standing, etc, [...] 08/07/2013 Bipolar 1 disorder (HCC) 02/14/2018 Seeing [facility] Behavioral Medicine as of 01/2018 Bipolar 1 disorder ([facility]) Chronic fatigue disorder 03/19/2015 Congenital heart [...] Problem Relation Ag (more content not included)... [facility] 10-26-2024 History of Present illness Narrative Chief Complaint Patient presents with: ER F/U: migraines HPI Greta Andres is a 34 year old female who presents here today for Above Complaints.. Patient reports migraines for the past 2 weeks. Has been all day. Very little improvement with treatments. Was seen in [facility], [facility], and the ER. Toradol injection at [facility] did give temporary relief. Otherwise nothing [...] do her job. 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 With head movement, kneeling to standing, [...] 08/07/2013 Bipolar 1 disorder (HCC) 02/14/2018 Seeing [facility] Behavioral Medicine as of 01/2018 Bipolar [...] Christine Dean PA-C documented in this encounter [facility] 10-24-2024 Note HNO ID: [id number] Author: JACE WALLIS MA Service: ? Author Type: [employer] Type: Progress Notes Filed: 10/24/2024 16:00 Note Text: Scan on 10/21/2024 2:21 PM by ProviderDami PA-C: Consultation - Emergency Medicine Jace Wallis MA Patient is scheduled to discuss Migraines. Jace Wallis MA [facility] 10-24-2024 History of Present illness Narrative Scan on 10/21/2024 2:21 PM by ProviderDami PA-C: Consultation - Emergency Medicine Jace Wallis MA Patient is scheduled to discuss Migraines. Jace Wallis MA documented in this encounter [facility] 10-24-2024 Telephone encounter Note Called and [...] and will discuss with Christine as well. [facility] 10-24-2024 Miscellaneous Notes Called and spoke [...] fill out FMLA for minor illnesses and [facility] HR should know this. It's intended [...] Pt calling in as she works at [facility] and had to call off of [...] how to proceed. documented in this encounter [facility] 10-23-2024 Telephone encounter Note Let patient know we do not fill out FMLA for minor illnesses and [facility] HR should know this. It's intended [...] lesson the frequency with a daily med. [facility] 10-23-2024 Telephone encounter Note Pt calling in as she works at [facility] and had to call off of [...] to let her know how to proceed. [facility] 10-18-2024 Bobby Sunshine APRN.SHELF DRIER OPERATOR - 10/18/2024 5:47 PM EST ASSESSMENT/PLAN: 1. [...] Discussed expected course of illness Bobby Paiz APRN.SHELF DRIER OPERATOR documented in this encounter [facility] 10-18-2024 Note HNO ID: [id number] Author: BOBBY PAIZ APRN.MARGARITA Service: ? Author Type: Nurse [...] 08/07/2013 Bipolar 1 disorder (HCC) 02/14/2018 Seeing [facility] Behavioral Medicine as of 01/2018 Bipolar [...] tablet by mouth (more content not included)... [facility] 10-18-2024 History of Present illness Narrative [...] 08/07/2013 Bipolar 1 disorder (HCC) 02/14/2018 Seeing [facility] Behavioral Medicine as of 01/2018 Bipolar 1 disorder ([facility]) Chronic fatigue disorder 03/19/2015 Congenital heart [...] spinal stenosis 04/25/2024 Lupus (systemic lupus erythematosus) ([facility]) Migraine without aura and without status migrainosus, not intractable 05/20/2017 Multiple thyroid nodules 07/26/2019 Neoplasm of uncertain behavior of skin of back Obesity, Class I, BMI 30-34.9 03/03/2023 Other and unspecified ovarian cyst Ovarian cyst Other joint derangement, not elsewhere classified, lower leg 08/20/2008 Papillary thyroid carcinoma ([facility]) 07/21/2019 PMH - PAST MEDICAL HISTORY OF r thumb broken Post-surgical hypothyroidism 08/25/2019 Primary thyroid papillary carcinoma (HCC) 07/21/2019 PTSD (post-traumatic stress disorder) 02/14/2018 PTSD (post-traumatic stress disorder) S/P total thyroidectomy 07/31/2019 Sacroiliitis, not elsewhere classified ([facility]) 02/20/2013 SI (sacroiliac) joint dysfunction 11/06/2015 [...] Discussed expected course of illness Bobby Paiz APRN.SHELF DRIER OPERATOR documented in this encounter [facility] 10-17-2024 Telephone encounter Note In order to get an off work note we have to see the patient to have documentation in the chart she was seen and advised to stay home. If not with Caesar King I know Lisa Martinez has a lot of openings. [facility] 10-17-2024 Miscellaneous Notes In order to [...] Jace Wallis MA documented in this encounter [facility] 10-17-[address] Red patient has history of migraines. Do you still want patient to come in for a visit? Jace Wallis MA [facility] 10-01-2024 Telephone encounter Note Pt was notified of the results. Pt verbalized understanding. Krishna Villanueva MA [facility] 10-01-2024 Miscellaneous Notes Pt was notified of the results. Pt verbalized understanding. Krishna Villanueva MA Please inform patient that her urine culture was negative. May discontinue antibiotics. Follow-up with PCP or urology if symptoms persist. Recommended repeat urinalysis due to blood Nagi Ku APRN.CNP documented in this encounter [facility] 10-01-2024 Telephone encounter Note Please inform patient that her urine culture was negative. May discontinue antibiotics. Follow-up with PCP or urology if symptoms persist. Recommended repeat urinalysis due to blood Nagi Ku APRN.MARGARITA [facility] Work Phone: 09-29-2024 Note HNO ID: [id number] Author: KAREN JONES APRN.MARGARITA Service: ? Author Type: Nurse Practitioner Type: Progress Notes Filed: 09/29/2024 16:53 Note Text: This note was created using [email or web address]. Elida Andres is a 34 year old female. 34 year old female with PMH HTN, asthma, migraine and chronic fatigue presents for complaitns. Acute onset one week ago +urgency +dysuria + back pain +blood noted in urine Denies N/V/D (althougth states she recently was with stomach bug) Denies cough Denies SOB or dyspnea Denies abdominal pain Seen September 01 for similar @ [facility] Diagnosed with UTI. Placed on Keflex, completed. CT scan revealed renal calculi [place] better after completing ATB Denies following up She works at [employer] The history is provided by the patient. No automotive teacher was used. 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 PMH - PAST MEDICAL HISTORY OF r thumb broken Post-surgical hypothyroidism 08/25/2019 Primary thyroid papillary carcinoma ([facility]) 07/21/2019 PTSD (post-traumatic stress disorder) 02/14/2018 PTSD (post-traumatic stress disorder) S/P total thyroidectomy 07/31/2019 Sacroiliitis, not elsewhere classified ([facility]) 02/20/2013 SI (sacroiliac) joint dysfunction 11/06/2015 [...] SPX Right COLONOSC (more content not included)... [facility] 09-29-2024 History of Present illness Narrative This note was created using NoteWriter. Elida [...] pain Seen September 01 for similar @ [facility] Diagnosed with UTI. Placed on Keflex, completed. CT scan revealed renal calculi [place] better after completing ATB Denies following up She works at [employer] The history is provided by the patient. No automotive teacher was used. 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 PMH - PAST MEDICAL HISTORY OF r thumb broken Post-surgical hypothyroidism 08/25/2019 Primary thyroid papillary carcinoma ([facility]) 07/21/2019 PTSD (post-traumatic stress disorder) 02/14/2018 PTSD (post-traumatic stress disorder) S/P total thyroidectomy 07/31/2019 Sacroiliitis, not elsewhere classified ([facility]) 02/20/2013 SI (sacroiliac) joint dysfunction 11/06/2015 [...] Karen Jones APRN.MARGARITA documented in this encounter [facility] 09-26-2024 Telephone encounter Note Order form completed by Carlie Brownlee CNP: Multi Action 2 Formula: Baclofen 5%, Cyclobenzaprine HCI 2%, Diclofenac 3%, Gabapentin 10%, Lidocaine HCl 5% Topical Cream Sig: Apply 1-2 grams every 6-8 hours as needed for pain. Refills: 6 Compound Quantity: 180 gm Order form has been faxed to [employer] at [phone] with confirmation received. [facility] 09-26-2024 Miscellaneous Notes Order form completed by Carlie Brownlee SHELF DRIER OPERATOR: Multi Action 2 Formula: Baclofen 5%, Cyclobenzaprine HCI 2%, Diclofenac 3%, Gabapentin 10%, Lidocaine HCl 5% Topical Cream Sig: Apply 1-2 grams every 6-8 hours as needed for pain. Refills: 6 Compound Quantity: 180 gm Order form has been faxed to [employer] at [phone] with confirmation received. documented in this encounter [facility] 09-21-2024 History of Present illness Narrative VIRTUAL VISIT PROGRESS NOTE This is a virtual visit using [employer]om Video Visit. It required patient-provider interaction for the medical decision making as documented below. I have communicated my name and active licensure. The patient's identity and physical location were verified at the time of this visit. Either the patient or their legal claim representative has been informed of the risks [...] 08/07/2013 Bipolar 1 disorder (HCC) 02/14/2018 Seeing [facility] Behavioral Medicine as of 01/2018 Bipolar [...] spinal stenosis 04/25/2024 Lupus (systemic lupus erythematosus) ([facility]) Migraine without aura and without status migrainosus, not intractable 05/20/2017 Multiple thyroid nodules 07/26/2019 Neoplasm of uncertain behavior of skin of back Obesity, Class I, BMI 30-34.9 03/03/2023 Other and unspecified ovarian cyst Ovarian cyst Other joint derangement, not elsewhere classified, lower leg 08/20/2008 Papillary thyroid carcinoma ([facility]) 07/21/2019 PMH - PAST MEDICAL HISTORY OF r thumb broken Post-surgical hypothyroidism 08/25/2019 Primary thyroid papillary carcinoma ([facility]) 07/21/2019 PTSD (post-traumatic stress disorder) 02/14/2018 PTSD (post-traumatic stress disorder) S/P total thyroidectomy 07/31/2019 Sacroiliitis, not elsewhere classified ([facility]) 02/20/2013 SI (sacroiliac) joint dysfunction 11/06/2015 [...] which included preparing to see the patient, [id number] patient care, completing clinical documentation, performing a medically appropriate examination, and ordering medications, tests, or procedures Carlie Brownlee APRN.SHELF DRIER OPERATOR documented in this encounter [facility] 09-21-2024 History of Present illness Narrative [...] 08/07/2013 Bipolar 1 disorder (HCC) 02/14/2018 Seeing [facility] Behavioral Medicine as of 01/2018 Bipolar [...] Cervical Cancer Screening due on 05/06/2020 Covid-19 Vaccine() Never done DTaP,Tdap,Td Vaccine(7 - Td or [...] completed and returned to patient. Renard Almodovar APRN.SHELF DRIER OPERATOR documented in this encounter [facility] 09-15-2024 History of Present illness Narrative This note was created using Giftbar. Elida Andres is a 34 year old [...] 08/07/2013 Bipolar 1 disorder (HCC) 02/14/2018 Seeing [facility] Behavioral Medicine as of 01/2018 Bipolar 1 disorder ([facility]) Chronic fatigue disorder 03/19/2015 Congenital heart [...] spinal stenosis 04/25/2024 Lupus (systemic lupus erythematosus) ([facility]) Migraine without aura and without status [...] total thyroidectomy 07/31/2019 Sacroiliitis, not elsewhere classified ([facility]) 02/20/2013 SI (sacroiliac) joint dysfunction 11/06/2015 [...] & INFLUENZA A/B & RSV PCR, ROUTINE Tori Michael PA-C documented in this encounter [facility] 09-04-2024 History of Present illness Narrative Scan on 09/01/2024 12:48 PM by Provider, CARLYN Lomax: Consultation - Emergency Medicine documented in this encounter [facility] 08-22-2024 History of Present illness Narrative Scan on 08/21/2024 4:08 PM by ProviderDami PA-C: Miscellaneous Lab documented in this encounter [facility] 06-30-2024 History of Present illness Narrative Patient presents for suture removal per Dr Red. Pt denies any pain, redness, swelling, or drainage from site. Removed 5 sutures from upper left back. Incision well approximated and healing; no redness, swelling, or drainage noted. Tolerated procedure well. Nata Morse LPN documented in this encounter [facility] 06-21-2024 Telephone encounter Note Patient notified and voiced understanding. Jace Wallis MA [facility] 06-21-2024 Miscellaneous Notes Patient notified and voiced understanding. Jace Wallis MA Let patient know skin biopsy was benign. documented in this encounter [facility] 06-20-2024 Telephone encounter Note Let patient know skin biopsy was benign. [facility] 06-19-2024 Procedure note Procedure(s): SKIN BIOPSY [...] cm x 1.0 cm Nagi Red MD [facility] 06-19-2024 Procedure note Procedure(s): SKIN BIOPSY [...] Nagi Red MD documented in this encounter [facility] 06-19-2024 History of Present illness Narrative [...] 08/07/2013 Bipolar 1 disorder (HCC) 02/14/2018 Seeing [facility] Behavioral Medicine as of 01/2018 Bipolar [...] spinal stenosis 04/25/2024 Lupus (systemic lupus erythematosus) ([facility]) Migraine without aura and without status migrainosus, not intractable 05/20/2017 Multiple thyroid nodules 07/26/2019 Obesity, Class I, BMI 30-34.9 03/03/2023 Other and unspecified ovarian cyst Ovarian cyst Other joint derangement, not elsewhere classified, lower leg 08/20/2008 Papillary thyroid carcinoma (HCC) 07/21/2019 PMH - PAST MEDICAL HISTORY OF r thumb broken Post-surgical hypothyroidism 08/25/2019 Primary thyroid papillary carcinoma ([facility]) 07/21/2019 PTSD (post-traumatic stress disorder) 02/14/2018 PTSD (post-traumatic stress disorder) S/P total thyroidectomy 07/31/2019 Sacroiliitis, not elsewhere classified ([facility]) 02/20/2013 SI (sacroiliac) joint dysfunction 11/06/2015 [...] Nagi Red MD documented in this encounter [facility] 06-18-2024 History of Present illness Narrative VIRTUAL VISIT PROGRESS NOTE This is a virtual visit using [employer] Zoom Video Visit. It required patient-provider interaction for the medical decision making as documented below. I have communicated my name and active licensure. The patient's identity and physical location were verified at the time of this visit. Either the patient or their legal claim representative has been informed of the risks [...] 08/07/2013 Bipolar 1 disorder (HCC) 02/14/2018 Seeing [facility] Behavioral Medicine as of 01/2018 Bipolar [...] which included preparing to see the patient, [id number] patient care, completing clinical documentation, and ordering medications, tests, or procedures Carlie Brownlee APRN.SHELF DRIER OPERATOR documented in this encounter [facility] 05-23-2024 Telephone encounter Note Patient rescheduled 06/19/2024 at 1:20 pm with check in time of 1:05 pm Sent my chart message. Jace Wallis MA [facility] 05-23-2024 Miscellaneous Notes Patient rescheduled 06/19/2024 [...] Dede Lundy LPN documented in this encounter [facility] 05-23-2024 Telephone encounter Note Pt called to let you know she is running a fever and has sore throat. She is cancelling for today and. She will not be available till after 06-12-24. Okay to schedule her after 06-12-24 and call her with date and time. Dede Lundy LPN [facility] 05-16-2024 Telephone encounter Note Mri order signed off [facility] 05-16-2024 Miscellaneous Notes Mri order signed [...] provider for review. documented in this encounter [facility] 05-15-2024 Telephone encounter Note DONA: 03/16/2024 w/Carlie Brownlee CNP PLAN: Continue medication management through [facility] The following approved medication requests have been transmitted electronically: Ultram Interventional procedure options discussed. Ordered and scheduled repeat right SI RFA F/U in 3 months May be virtual for refills Imagin03/27/2023: Lumbar XRAY MRI: Not noted Routing to provider for review. [facility] 05-12-2024 Telephone encounter Note Reason for Call: Pt calling for results of ultrasound done on left leg today due to pain. Pt states she was told not to use heat or massage until results are back. Is using ibuprofen for pain. Outcome: Will forward message to provider and advised caller to call office tomorrow morning for f/u. [facility] 05-12-2024 Miscellaneous Notes Reason for Call: Pt calling for results of ultrasound done on left leg today due to pain. Pt states she was told not to use heat or massage until results are back. Is using ibuprofen for pain. Outcome: Will forward message to provider and advised caller to call office tomorrow morning for f/u. documented in this encounter [facility] 05-12-2024 History of Present illness Narrative [...] PATIENT PRESENTS WITH AN IMPLANTABLE OR ATTACHED GEAR ROLLER: No RADIOLOGY DEPARTMENT: Ultrasound PERIPHERAL IV DATA: Not applicable SIGNED BY: HARMAN BasurtoOLOGIST May 12, 2024 3:51 PM documented in this encounter [facility] 05-12-2024 History of Present illness Narrative [...] 08/07/2013 Bipolar 1 disorder (HCC) 02/14/2018 Seeing [facility] Behavioral Medicine as of 01/2018 Bipolar [...] Cervical Cancer Screening due on 05/06/2020 Covid-19 Vaccine() Never done Behavioral Health Screening Never done [...] to ER with red flag symptoms Sakshi Podlogar, CUSTOMER SUPPORT ANALYST.SHELF DRIER OPERATOR Prescription instructions reviewed with patient as applicable. [...] 4 - Moderate documented in this encounter [facility] 05-04-2024 Telephone encounter Note Spoke with pt and she is rescheduled to 6-19-24. 1 PM (40 minutes). Dede Lundy LPN [facility] 05-04-2024 Miscellaneous Notes Spoke with pt [...] minute slot. Any questions, please contact office. [id number] Jace Wallis MA documented in this encounter [facility] 05-03-2024 Telephone encounter Note Sent my chart message. Jace Wallis MA Options: 05/05 at 1:40 40 minute 05/08 at 1:20 40 minute 05/10 at 1:00 40 minute [facility] 05-02-2024 Telephone encounter Note Patient is scheduled next Wednesday for excision. This needs to be rescheduled with a 40 minute slot. Any questions, please contact office. [id number] Jace Wallis MA [facility] 05-01-2024 History of Present illness Narrative Reason for Visit: Papillary thyroid carcinoma History of Present Illness: Greta Andres is a 33 y.o. female here for follow up of papillary thyroid carcinoma (TAYOLR initial stratification intermediate risk). She is s/p total thyroidectomy and central neck dissection on 07/31/[address] Martinez at [facility]. Pathology showed mutifocal PTC with the [...] US performed today Assessment and Plan: Greta Adnres is a 31 y.o. female s/p TT [...] up in 1 year. Caitlyn Rivera MD Hotel Sales Managerchef kitchen manager Department of Internal Medicine Division of Endocrinology, Diabetes and Metabolism [facility] documented in this encounter [facility] 05-01-2024 Instructions Caitlyn Rivera MD - 05/01/2024 12:20 PM EDT Labs today Follow up in 1 year. documented in this encounter [facility] 05-01-2024 Procedure note Associated Ord er(s): CHG US SOFT TISSUE HEAD & NECK REAL TIME GE DOCM ULTRASOUND NOTE Images were taken through the central and lateral neck bilaterally. RIGHT CENTRAL: there are two small lesions, likely benign LNs superior and anterior of the thyroidectomy bed measuring 0.4 x 0.2 x 0.4 cm and 0.4 x 0.2 x 0.7 cm RIGHT LATERAL: no suspicious nodes LEFT CENTRAL: No suspicious lesions LEFT LATERAL: No suspicious nodes [facility] 05-01-2024 Procedure note Associated Ord er(s): CHG [...] No suspicious nodes documented in this encounter [facility] 05-01-2024 Telephone encounter Note Patient notified and voiced understanding. Jace Wallis MA [facility] 05-01-2024 Miscellaneous Notes Patient notified and voiced understanding. Jace Wallis MA Let patient know her breathing test was ok. documented in this encounter [facility] 04-29-2024 Telephone encounter Note Let patient know her breathing test was ok. [facility] 04-26-2024 Telephone encounter Note Patient was contacted and rescheduled. Jace Wallis MA [facility] 04-26-2024 Miscellaneous Notes Patient was contacted and rescheduled. Jace Wallis MA documented in this encounter [facility] 04-26-2024 History of Present illness Narrative PULM FUNCTION: Provider: Nagi Red MD Assisting Tech: Vangie Carrion RPFT Spirometry w/BD: 1 documented in this encounter [facility] 04-26-2024 Telephone encounter Note Noted. [facility] 04-26-2024 Miscellaneous Notes Noted. Patient was notified and has not done vitmain D for few years but will resume 2000 units daily Yolande Reyes MA Advise patient her Vit D is only slightly low. Advise her to start taking Vit D 2000 international unit(s) 's a day. documented in this encounter [facility] 04-26-2024 Telephone encounter Note Patient was notified and has not done vitmain D for few years but will resume 2000 units daily Yolande Reyes MA [facility] 04-25-2024 Telephone encounter Note Advise patient her Vit D is only slightly low. Advise her to start taking Vit D 2000 international unit(s) 's a day. [facility] 04-25-2024 History of Present illness Narrative [...] dosage. Patient was seeing a PCP in [facility] when she was living there and was on HCTZ and has not been on this medication for a while. Patient with hx post surgical hypothyroid, papillary thyroid carcinoma, HTN, Anxiety, bipolar, vit D def, gastroparesis and those as below. Patient sees Endocrinology Dr. Rivera Patient sees Gastro [facility] Dr. Cole Past medical history, appointments, [...] 08/07/2013 Bipolar 1 disorder (HCC) 02/14/2018 Seeing [facility] Behavioral Medicine as of 01/2018 Bipolar 1 disorder ([facility]) Chronic fatigue disorder 03/19/2015 Congenital heart [...] disc disease 07/27/2012 Lupus (systemic lupus erythematosus) ([facility]) Migraine without aura and without status migrainosus, not intractable 05/20/2017 Multiple thyroid nodules 07/26/2019 Obesity, Class I, BMI 30-34.9 03/03/2023 Other and unspecified ovarian cyst Ovarian cyst Other joint derangement, not elsewhere classified, lower leg 08/20/2008 Papillary thyroid carcinoma ([facility]) 07/21/2019 PMH - PAST MEDICAL HISTORY OF r thumb broken Post-surgical hypothyroidism 08/25/2019 Primary thyroid papillary carcinoma ([facility]) 07/21/2019 PTSD (post-traumatic stress disorder) 02/14/2018 PTSD (post-traumatic stress disorder) S/P total thyroidectomy 07/31/2019 Sacroiliitis, not elsewhere classified ([facility]) 02/20/2013 SI (sacroiliac) joint dysfunction 11/06/2015 [...] on File Prior to Visit Medication Sig Qiuopoyfyfefutt-Vbvrusolj-PW (BROMFED DM) 2-30-10 mg/5 mL syrup Take [...] Lymph 1.00 - 4.00 k/uL 2.71 2.50 Thayer% % 4.0 5.2 Abs Thayer <0.87 k/uL 0.43 0.52 Eosin% % 2.0 [...] Negative Ketones, Urine Negative Negative Negative Specific Wolbach, Ur 1.005 - 1.030 1.020 1.021 Hemoglobin/Blood,Ur [...] ICD9: V72.31, ICD10: Z01.419 - CONSULT TO RELIEF PHARMACIST 16. Renal stones - ICD9: 592.0, ICD10: [...] which included preparing to see the patient, zxmi-bx-wvpl patient care, completing clinical documentation, performing a medically appropriate examination, counseling and educating the patient/family/caregiver and ordering medications, tests, or procedures. Nagi Red MD documented in this encounter [facility] 04-19-2024 Note Addended by: NAGI RED on: 04/19/2024 04:04 PM Modules accepted: Orders [facility] 04-19-2024 Miscellaneous Notes Addended by: NAGI RED on: 04/19/2024 04:04 PM Modules accepted: Orders documented in this encounter [facility] 03-25-2024 History of Present illness Narrative [...] sevearl years. Had a hearing exam at [place] about 5 years ago and at that [...] 08/07/2013 Bipolar 1 disorder (HCC) 02/14/2018 Seeing [facility] Behavioral Medicine as of 01/2018 Bipolar [...] Post-surgical hypothyroidism 08/25/2019 Primary thyroid papillary carcinoma ([facility]) 07/21/2019 PTSD (post-traumatic stress disorder) 02/14/2018 PTSD (post-traumatic stress disorder) S/P total thyroidectomy 07/31/2019 Sacroiliitis, not elsewhere classified ([facility]) 02/20/2013 SI (sacroiliac) joint dysfunction 11/06/2015 [...] as needed for up to 30 days. Ciwbmhcsjsmjfeo-Hfcxxnwvw-GB (BROMFED DM) 2-30-10 mg/5 mL syrup Take [...] Nagi Red MD documented in this encounter [facility] 03-16-2024 History of Present illness Narrative Images from the original note were not included. [facility] for [facility] follow up [...] which included preparing to see the patient, aiag-po-ujaz patient care, completing clinical documentation, performing a [...] March 16, 2024 documented in this encounter [facility] 03-07-2024 History of Present illness Narrative Scan on 03/06/2024 2:25 PM by Provider, CARLYN Lomax: Ultrasound Galina Forman LPN documented in this encounter [facility] 01-11-2024 History of Present illness Narrative [...] 08/07/2013 Bipolar 1 disorder (HCC) 02/14/2018 Seeing [facility] Behavioral Medicine as of 01/2018 Bipolar [...] disc disease 07/27/2012 Lupus (systemic lupus erythematosus) ([facility]) Migraine without aura and without status migrainosus, not intractable 05/20/2017 Multiple thyroid nodules 07/26/2019 Obesity, Class I, BMI 30-34.9 03/03/2023 Other and unspecified ovarian cyst Ovarian cyst Other joint derangement, not elsewhere classified, lower leg 08/20/2008 Papillary thyroid carcinoma ([facility]) 07/21/2019 PMH - PAST MEDICAL HISTORY OF r thumb broken Post-surgical hypothyroidism 08/25/2019 Primary thyroid papillary carcinoma ([facility]) 07/21/2019 PTSD (post-traumatic stress disorder) 02/14/2018 PTSD (post-traumatic stress disorder) S/P total thyroidectomy 07/31/2019 Sacroiliitis, not elsewhere classified ([facility]) 02/20/2013 SI (sacroiliac) joint dysfunction 11/06/2015 [...] [Dextroamphetamine-Amphetamine] MEDICATIONS Current Outpatient Medications Medication Sig Zspiufdlycskgpu-Awfnhczxv-LV (BROMFED DM) 2-30-10 mg/5 mL syrup Take [...] Galilea Olvera PA-C documented in this encounter [facility] 01-07-2024 Miscellaneous Notes Patient notified of results, verbalized understanding of instructions given. Dee Vila MA Please notify positive for flu B Push fluids Otc medication advised Duration typically 5-7 days F/u for worsening s/s documented in this encounter [facility] 01-07-2024 Instructions Octavio Alcantara PA - [...] while taking this documented in this encounter [facility] 01-07-2024 History of Present illness Narrative This note was created using [employer]. Elida Andres is a 33 year old [...] 08/07/2013 Bipolar 1 disorder (HCC) 02/14/2018 Seeing [facility] Behavioral Medicine as of 01/2018 Bipolar [...] total thyroidectomy 07/31/2019 Sacroiliitis, not elsewhere classified ([facility]) 02/20/2013 SI (sacroiliac) joint dysfunction 11/06/2015 [...] Adhesive, Morphine Sulfate, and Adderall [Dextroamphetamine-Amphetamine] MEDICATIONS Vpdzsbshvhaznrj-Vyhqmxkbp-QV (BROMFED DM) 2-30-10 mg/5 mL syrup Take [...] evaluation. JERI Carroll documented in this encounter [facility] 01-03-2024 History of Present illness Narrative Scan on 01/01/2024 12:12 AM by ProviderDami PA-C: Consultation - Emergency Medicine Scan on 12/31/2023 6:12 PM by Provider, CARLYN Lomax: CT Scan documented in this encounter [facility] 11-04-2023 Instructions Brian Griffin - 11/04/2023 [...] to twice weekly documented in this encounter [facility] 11-04-2023 History of Present illness Narrative [...] 08/07/2013 Bipolar 1 disorder (HCC) 02/14/2018 Seeing [facility] Behavioral Medicine as of 01/2018 Bipolar [...] excision Brian Griffin DPM Podiatry [address] [facility] [address] Dept: [phone] Dept AMB ROOMING INTAKE FLOWSHEET DATA Pain Pain Level: 2 Pain Location: Foot-Left Description: Sharp Duration Amount of Time: 3 Duration Units: Weeks Frequency: Intermittent Intervention/Comfort measure: Relaxation, Reposition Patient presents with: Left Foot - New Patient, Foreign Body Patient c/o possible splinter to L plantar foot x 3 weeks. Area where splinter is has since callused over. documented in this encounter [facility] 10-04-2023 History of Present illness Narrative [...] 08/07/2013 Bipolar 1 disorder (HCC) 02/14/2018 Seeing [facility] Behavioral Medicine as of 01/2018 Bipolar 1 disorder ([facility]) Chronic fatigue disorder 03/19/2015 Congenital heart [...] Discussed expected course of illness Bobby Paiz APRN.SHELF DRIER OPERATOR documented in this encounter [facility] 10-04-2023 Instructions Bobby Paiz APRN.MARGARITA - 10/04/2023 9:26 AM EST ASSESSMENT/PLAN: 1. [...] Discussed expected course of illness Bobby Paiz APRN.SHELF DRIER OPERATOR ACUTE BRONCHITIS: You have acute bronchitis. This [...] of proper treatment. documented in this encounter [facility] 09-15-2023 History of Present illness Narrative VIRTUAL VISIT PROGRESS NOTE This is a virtual visit using [employer] Zoom Video Visit. It required patient-provider interaction for the medical decision making as documented below. I have communicated my name and active licensure. The patient's identity and physical location were verified at the time of this visit. Either the patient or their legal claim representative has been informed of the risks [...] 08/07/2013 Bipolar 1 disorder (HCC) 02/14/2018 Seeing [facility] Behavioral Medicine as of 01/2018 Bipolar [...] disc disease 07/27/2012 Lupus (systemic lupus erythematosus) ([facility]) Migraine without aura and without status migrainosus, not intractable 05/20/2017 Multiple thyroid nodules 07/26/2019 Obesity, Class I, BMI 30-34.9 03/03/2023 Other and unspecified ovarian cyst Ovarian cyst Other joint derangement, not elsewhere classified, lower leg 08/20/2008 Papillary thyroid carcinoma ([facility]) 07/21/2019 PMH - PAST MEDICAL HISTORY OF r thumb broken Post-surgical hypothyroidism 08/25/2019 Primary thyroid papillary carcinoma ([facility]) 07/21/2019 PTSD (post-traumatic stress disorder) 02/14/2018 PTSD (post-traumatic stress disorder) S/P total thyroidectomy 07/31/2019 Sacroiliitis, not elsewhere classified ([facility]) 02/20/2013 SI (sacroiliac) joint dysfunction 11/06/2015 [...] which included preparing to see the patient, pksv-ii-xpkt patient care, completing clinical documentation, performing a medically appropriate examination, and ordering medications, tests, or procedures Carlie Brownlee APRN.MARGARITA documented in this encounter [facility] 06-08-2023 History of Present illness Narrative SUBJECTIVE: Greta Andres presents to [facility] Pain Management Department for a follow up appointment for refills. Since the last visit, Greta Jerome states the pain has been persistent. Current [...] Patient had a right SI RFA on 6-20-2023 and reports over 75% improvement Patient has [...] activity was identified. 06/08/2023 by Carlie Brownlee APRN.SHELF DRIER OPERATOR Narcotic Agreement reviewed and signed?: N/A on [...] which included preparing to see the patient, gqho-px-rlov patient care, completing clinical documentation, performing a medically appropriate examination, and ordering medications, tests, or procedures. Carlie Brownlee APRN.SHELF DRIER OPERATOR documented in this encounter [facility] 04-28-2023 History of Present illness Narrative [...] TIME: 3:10 PM documented in this encounter [facility] 04-28-2023 Miscellaneous Notes Pt notified of [...] levels. Pt sees Dr Caitlyn Rivera in [place]. Pt's results were faxed & pt will contact the office for follow up. Dr Rivera ph: [phone] Pt is asking for results from rest of labs from yesterday. Galina Forman LPN Let patient know that her TSH level is significantly elevated and may be cause of some of her current symptoms. We can send this lab result to her supervisor sheet manufacturing and I would advise her to get in touch with her office as well. (Please confirm supervisor sheet manufacturing so labs can be sent). (Fyi to Dano) documented in this encounter [facility] 04-27-2023 Instructions Renard Almodovar APRN.CNP - 04/27/2023 10:22 AM EDT Complete labs Schedule CTA 3. Follow up as directed with results of CTA and labs documented in this encounter [facility] 04-27-2023 History of Present illness Narrative Chief Complaint Patient presents with: Edema: Hands, feet, face THIEN Andres is a 33 year old female [...] 08/07/2013 Bipolar 1 disorder (HCC) 02/14/2018 Seeing [facility] Behavioral Medicine as of 01/2018 Bipolar [...] Renard Almodovar APRN.MARGARITA documented in this encounter [facility] 04-26-2023 History of Present illness Narrative Scan on 04/24/2023 3:46 PM by External Provider, CARLYN: Consultation - Emergency Medicine documented in this encounter [facility] 04-05-2023 Miscellaneous Notes Patient notified and verbalized understanding. Patient states that she needs to look at her schedule and call back to reschedule appointment Greta Fox Cma Please let patient know her cholesterol levels have worsened and her vitamin D is low. Patient should reschedule her appointment to discuss these results. documented in this encounter [facility] 04-01-2023 Miscellaneous Notes Results sent via [employer] message at this time Dr. Contreras reviewed [...] not scheduled it documented in this encounter [facility] 03-29-2023 Miscellaneous Notes Records received and delivered to provider's office. Dede Lundy LPN Pt called and advised was seen in [facility] ER yesterday 03-28-23 for abdominal pain/back pain/ right flank pain. Was told not kidney stone. Pt still having pain and has been scheduled for ER FU today. Pt feels she still may have a kidney stone. I had to leave a phone message requesting records and they are to be faxed to me and I will deliver to office. [facility] Medical records was asked to call if there was any problems. Dede Lundy LPN documented in this encounter [facility] 03-03-2023 Instructions Nagi Red MD - 03/03/2023 11:14 AM EDT Please get labs and urine test done on or after 08/20/2023 prior to your next visit. documented in this encounter [facility] 03-03-2023 History of Present illness Narrative [...] not been successful. Is seeing Gastro at [facility] and feel she may have gastroparesis. [...] 08/07/2013 Bipolar 1 disorder (HCC) 02/14/2018 Seeing [facility] Behavioral Medicine as of 01/2018 Bipolar [...] total thyroidectomy 07/31/2019 Sacroiliitis, not elsewhere classified ([facility]) 02/20/2013 SI (sacroiliac) joint dysfunction 11/06/2015 [...] Nagi Red MD documented in this encounter [facility] 02-17-[address] Contreras has [...] Marcella Mohr RN documented in this encounter [facility] 02-12-2023 Surgical operation note PATIENT NAME: [...] TIME: 1:56 PM documented in this encounter [facility] 02-12-2023 History and physical note HISTORY [...] 08/07/2013 Bipolar 1 disorder (HCC) 02/14/2018 Seeing [facility] Behavioral Medicine as of 01/2018 Bipolar [...] TIME: 1:09 PM documented in this encounter [facility] 02-06-2023 History of Present illness Narrative Scan on 02/02/2023 7:57 AM by External Provider: DONNA Wallis MA documented in this encounter [facility] 01-26-2023 History of Present illness Narrative Please see labs: Scan on 01/23/2023 11:14 AM by External Provider: Miscellaneous Lab Ruthann Mitchell LPN documented in this encounter [facility] 01-22-2023 History of Present illness Narrative [...] Jace Wallis MA documented in this encounter [facility] 01-22-2023 History of Present illness Narrative [...] 08/07/2013 Bipolar 1 disorder (HCC) 02/14/2018 Seeing [facility] Behavioral Medicine as of 01/2018 Chronic [...] stress disorder) 02/14/2018 Sacroiliitis, not elsewhere classified ([facility]) 02/20/2013 SI (sacroiliac) joint dysfunction 11/06/2015 [...] of care. This note was generated using [employer] software. It may contain errors in wording, punctuation, or spelling. Nagi Ku APRN.MARGARITA documented in this encounter [facility] 01-12-2023 Miscellaneous Notes Injection order signed off Order for Right Sacroiliac Joint Injection pended to provider at this time documented in this encounter [facility] 11-25-2022 History of Present illness Narrative VIRTUAL VISIT PROGRESS NOTE This is a virtual visit using [employer] video visit. It required patient-provider interaction for [...] 08/07/2013 Bipolar 1 disorder (HCC) 02/14/2018 Seeing [facility] Behavioral Medicine as of 01/2018 Chronic [...] stress disorder) 02/14/2018 Sacroiliitis, not elsewhere classified ([facility]) 02/20/2013 SI (sacroiliac) joint dysfunction 11/06/2015 [...] which included preparing to see the patient, qgcg-gx-dfam patient care, completing clinical documentation, and ordering medications, tests, or procedures Carlie Brownlee APRN.SHELF DRIER OPERATOR documented in this encounter [facility] 10-12-2022 Miscellaneous Notes Addended by: CHRISTINE [...] Ada Carson LPN documented in this encounter [facility] 09-16-2022 History of Present illness Narrative Reason for Visit: Papillary thyroid carcinoma History of Present Illness: Greta Andres is a 31 y.o. female here for the follow up of her papillary thyroid carcinoma (TAYLOR initial stratification intermediate risk). She is s/p total thyroidectomy and central neck dissection on 07/31/[address] Martinez at [facility]. Pathology showed mutifocal PTC with the [...] up in 6 months. Caitlyn Rivera MD Hotel Sales Managerchef kitchen manager Department of Internal Medicine Division of Endocrinology, Diabetes and Metabolism [facility] documented in this encounter [facility] 09-16-2022 Instructions Stephanie Richards RN - 09/16/2022 11:40 AM EDT Labs today Follow up in 6 months. documented in this encounter [facility] 09-16-2022 Procedure note Associated Ord er(s): ME US,HEAD/NECK TISSUES,REAL TIME ULTRASOUND NOTE Images were [...] 0.9 cm LEFT LATERAL: No suspicious nodes [facility] 09-16-2022 Procedure note Associated Ord er(s): ME US,HEAD/NECK TISSUES,REAL TIME ULTRASOUND NOTE Images were [...] No suspicious nodes documented in this encounter [facility] 09-10-2022 Note PROCEDURE: ULTRASOUN D TRANSVAGINAL NON [...] 2. Dominant 2.4 cm right ovarian follicle [facility] 07-31-2022 Miscellaneous Notes The following approved medication requests have been transmitted electronically. Requested Prescriptions Signed Prescriptions Disp Refills traMADol (ULTRAM) 50 mg tablet 30 tablet 2 Sig: Take 1 tablet by mouth once daily as needed for up to 30 days. Carlie Brownlee APRN.MARGARITA Received a refill request via [employer] from the patient for the following medication(s): [...] Roseline Pierson Ma documented in this encounter [facility] 07-07-2022 Miscellaneous Notes Patient notified of results and provider's instructions. Patient verbalizes understanding. Ada Carson LPN Let patient know that TSH is elevated at 6.610. 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 They may want additional labs. Update us with any changes they do please. Cholesterol is mildly elevated. Could be false elevation due to changes in TSH levels currently. But still we will want to monitor. Rest of labs are normal Christine Dean PA-C documented in this encounter [facility] 07-06-2022 History of Present illness Narrative [...] 08/07/2013 Bipolar 1 disorder (HCC) 02/14/2018 Seeing [facility] Behavioral Medicine as of 01/2018 Chronic [...] stress disorder) 02/14/2018 Sacroiliitis, not elsewhere classified ([facility]) 02/20/2013 SI (sacroiliac) joint dysfunction 11/06/2015 [...] Christine Dean PA-C documented in this encounter [facility] 06-24-2022 Miscellaneous Notes Pt notified to call into Scheduling to setup appt. Okay to Establish care per Dr. Red. Phil Millan Ma Notified pt of Provider message below. Offered to assist in scheduling with PA. Phil Millan Ma I'm ok with patient re-establishing care. documented in this encounter [facility] 06-16-2022 Instructions Caridad Colon RN - 06/16/2022 9:01 AM EDT Please call [phone] to update us on how you are doing in 4-6 weeks. Thank you! Lemon drops and other sialogogues (things that make you salivate) to stimulate saliva. Drink at least 8 glasses of water per day Warm compresses then Parotid (cheek) massage documented in this encounter [facility] 06-16-2022 History of Present illness Narrative [...] RTC PRN documented in this encounter [facility] 04-10-2022 Miscellaneous Notes Patient contacted via telephone to schedule re-injection. Patient scheduled for: May 12, 2022 Patient left voicemail 04/09/2022 at 1146 Patient states she will need to reschedule procedure that is currently scheduled for 04/23/2022 Patient added to injection scheduling spreadsheet in epic Office to contact patient to reschedule documented in this encounter [facility] 04-07-2022 History of Present illness Narrative VIRTUAL VISIT PROGRESS NOTE This is a virtual visit using [employer] video visit. It required patient-provider interaction for [...] 08/07/2013 Bipolar 1 disorder (HCC) 02/14/2018 Seeing [facility] Behavioral Medicine as of 01/2018 Chronic [...] which included preparing to see the patient, caxm-ph-fyft patient care, completing clinical documentation and ordering medications, tests, or procedures Carlie Brownlee APRN.MARGARITA documented in this encounter [facility] 03-26-2022 Instructions JESÚS Alford - 03/26/2022 8:32 AM EDT Welcome to the [facility]. We are here to assist you through your care at the [facility] and [facility]. Dr. Tapia is your Head and Neck Surgical Oncology doctor. It is likely that you will have other cancer doctors to assist with your care. Dr. Tapia's Primary Nurse is Kylah Maddox RN. She can be reached at [phone]. In order to care for you in the best possible way it is very important that you have a relationship with a primary care doctor. If you do not have one please establish care with on in your area or at [facility] at [phone] an [address] Tapia will [...] liquid narcotic pain medication before you leave [place]. If you are on narcotic pain medication, you could become constipated so please take your bowel medication (laxative) of choice when you start narcotic pain medication. Here are the resources/team members available to you at [facility]: Speech and Language Pathologist (PHARMACY TECHNICIAN INFUSION)- may be asked by Dr. Shay to assist you with swallowing and speaking issues. They may see you during visits with Dr. Shay and in the hospital. Our PHARMACY TECHNICIAN INFUSION's and contact phone numbers are below: Roselia Kenny [phone] Yue Bateman [phone] Claire Bridges [phone] Caridad Lechuga [phone] Ana María Baker [phone] Darline [phone] Compensation Coordinator- JORGE LUIS Dumont and JORGE LUIS Hardwick are available to assist with transportation and housing issues related to medical appointments. The social security assessor also provides counseling and information regarding Advance Directives, End of Life issues, Social Security Disability, and referrals to support groups, and other community agencies. Please let Poppy or Dr. Shay know if you need these services. You may contact Deepali at [phone] or Beata [phone]. [facility] [place] This is for patients who live in [facility] with a cancer diagnosis. The [facility] can provide rides to appointments, nutritional supplements and other services. It requires that your register for services by speaking with our head and neck social workers. If you are outside of [facility] the social security assessor can assist you with what is available in your county. Pastoral Care-Documentation Liaison Fani Yee-is able to assist your with your spiritual needs. If you wish to see the die maker please let your oncology team know to arrange this. Financial Services- Bimal Rees and Sabine Klein are our financial counselor who can assist your at your appointments or call them at [phone]. Ferry Pilot-Currently an order must be placed by Dr. Tapia to have to see the Ferry Pilot, Sandy Lopez. If you are already seeing Sandy her direct phone number is [phone]. Pain Management Team is available if Dr. Tapia feels that you need this a referral is made and your pain care is transferred to this group. Integrative Medicine therapy-these are complementary therapies used in addition to your cancer treatment to assist with anxiety, pain, nausea, poor sleep, and exhaustion. If you wish this additional therapy please contact [email or web address] to set up an appointment. You may also request this in the same way if you are inpatient or ask your nurse. THERE IS NO COST FOR THIS SERVICE. Fertility Presevation and Reproductive Health-The [facility] offers fertility preservation. This requires a referral from your doctor. If you are interested in sperm banking, egg freezing or other options please let your doctor know before you have chemotherapy or radiation. For information options please call [phone]. [facility]- It is conveniently located on the [facility] campus on the conference level (CL) of the [facility] and [facility], next door to [facility] and near [facility]. To learn more about [facility], you can visit it on weekdays from 8 a.m. - 9 p.m. and on weekends from 9 a.m. - 6 p.m., stop by our open house event April 26, call [phone] or visit. [facility]. Items: Family Medical Leave paperwork is available through your human resources department. Please call human resources and have them fax paperwork to DEANDRE Montero @ [phone]. [employer])- is a communication tool used through the Internet to communicate NON-urgent medical information with your [facility] doctors. You may ask questions, receive results and get notification of appointments. The results will be released to the [employer] by your doctors and will only be results that do not need additional explanation. If a discussion of the result is important your doctor or nurse will call you. If you wish to sign up this must be done in person. Our medical receptionist staff can assist you to get a password that can be changed when after you log on the first time. IMPORTANT REMINDER: This portal is only for NON-urgent information. If you have urgent information about your condition please call DEANDRE Mcwilliams at [phone]. THERE IS A NEW [employer]KO FOR SMART PHONES. USE YOUR AKIKO STORE AND SEARCH [employer], download the akiko and follow the prompts to set up the [facility] format. Through this AKIKO, you will be [...] the pills. documented in this encounter [facility] 03-26-2022 History of Present illness Narrative Chief Complaint: Chief Complaint Patient presents with New Patient HPI: Greta Andres is a 32 y.o. female non-smoker who presents 03/26/22 to the [facility] for evaluation of sialadenitis of the right parotid. Patient has a history of papillary thyroid carcinoma (TAYLOR initial stratification intermediate risk). She is s/p total thyroidectomy and central neck dissection on 07/31/[address] Martinez at [facility]. Pathology showed mutifocal PTC with the [...] to parotid swelling, with Karen ESPINOSA ([employer] COIL WINDER). I discussed the differential diagnosis and plan [...] female non-smoker who presents 03/26/22 to the [facility] for evaluation of sialadenitis of the right parotid. Patient has a history of papillary thyroid carcinoma (TAYLOR initial stratification intermediate risk). She is s/p total thyroidectomy and central neck dissection on 07/31/[address] Martinez at [facility]. Pathology showed mutifocal PTC with the [...] to parotid swelling, with Karen ESPINOSA ([employer] COIL WINDER). I discussed the differential diagnosis and plan [...] questions and concerns. documented in this encounter [facility] 03-18-2022 Instructions Stephanie Richards RN - 03/18/2022 12:38 PM EDT Labs today. Placed a referral to ENT to evaluate for salivary gland dysfunction. Follow up in 6 months documented in this encounter [facility] 03-18-2022 History of Present illness Narrative Reason for Visit: Papillary thyroid carcinoma History of Present Illness: Greta Andres is a 31 y.o. female here for the follow up of her papillary thyroid carcinoma (TAYLOR initial stratification intermediate risk). She is s/p total thyroidectomy and central neck dissection on 07/31/[address] Martinez at [facility]. Pathology showed mutifocal PTC with the [...] ENT for further evaluation. Caitlyn Rivera MD Hotel Sales Managerchef kitchen manager Department of Internal Medicine Division of Endocrinology, Diabetes and Metabolism [facility] documented in this encounter [facility] 03-18-2022 Procedure note Associated Ord er(s): ME US,HEAD/NECK TISSUES,REAL TIME ULTRASOUND NOTE Images were [...] 0.2 cm LEFT LATERAL: No suspicious nodes [facility] 03-18-2022 Procedure note Associated Ord er(s): ME US,HEAD/NECK TISSUES,REAL TIME ULTRASOUND NOTE Images were [...] No suspicious nodes documented in this encounter [facility] 03-05-2022 Instructions Vielka Castillo Mo - 03/05/2022 8:13 AM EDT Capsule Endoscopy [...] the airport, bank and government buildings. Many [employer] use a similar technology for security, it [...] hours you may call: After Business hours: [phone] have answering service contact your physician documented in this encounter [facility] 03-05-2022 History of Present illness Narrative Patient had a capsule endoscopy. Patient swallowed the capsule without any difficulty. Referring Provider: Susanne Potts Reason for Capsule: Susanne Potts Patient was given discharge instructions. Ingested capsule endoscope without difficulty at 8:12 AM on 03/05/2022. documented in this encounter [facility] 11-15-2021 Note PROCEDURE: CHEST AP PORTABLE [...] No large effusion, dense consolidation, or pneumothorax. [facility] 07-17-2021 History of Present illness Narrative [...] 2021 12:28 PM documented in this encounter [facility] 06-20-2021 History of Present illness Narrative MARTIN education completed. Handouts and low iodine cookbook provided to patient. Denies any questions at this time. documented in this encounter [facility] 10-19-2017 History of Past i llness Narrative Problem Noted Date Resolved Date Well adult exam 10/19/2017 07/27/2019 Overview: Last done: 10/20/2017 Attention and concentration deficit 03/19/2015 07/27/2019 Esophageal reflux 02/21/2015 07/27/2019 Routine gynecological examination 08/10/2014 07/27/2019 Overview: [facility] Screening for diabetes mellitus (DM) 08/10/2014 07/27/2019 Need for lipid screening 08/10/2014 019 Fibromyalgia 05/07/2014 07/27/2019 Other acquired deformity of toe 05/20/2009 07/27/2019 Backache, unspecified 06/19/2008 07/27/2019 Overview: Patient has degenerative disc disease and a slipped disc in her back. The symptoms began July 2011. 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 She sees Dr. Salter at [facility] for both of these issues. Patient has multiple questions regarding anesthesia during delivery due to her back issues. I have asked her to discuss this with Dr. Salter at an upcoming appointment and have him dictate a letter to Dr. Anderson with any concerns he may have. documented as of this encounter (statuses as of 03/05/2022) [facility]2017 History of Past illness Narrative* Problem Noted Date Resolved Date Well adult exam 10/19/2017 07/27/2019 Overview: Last done: 10/20/2017 Attention and concentration deficit 03/19/2015 07/27/2019 Esophageal reflux 02/21/2015 07/27/2019 Routine gynecological examination 08/10/2014 07/27/2019 Overview: [facility] Screening for diabetes mellitus (DM) 08/10/2014 07/27/2019 Need for lipid screening 08/10/2014 019 Fibromyalgia 05/07/2014 07/27/2019 Other acquired deformity of toe 05/20/2009 07/27/2019 Backache, unspecified 06/19/2008 07/27/2019 Overview: Patient has degenerative disc disease and a slipped disc in her back. The symptoms began July 2011. 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 She sees Dr. Salter at [facility] for both of these issues. Patient has multiple questions regarding anesthesia during delivery due to her back issues. I have asked her to discuss this with Dr. Salter at an upcoming appointment and have him dictate a letter to Dr. Anderson with any concerns he may have. documented as of this encounter (statuses as of 03/09/2022) [facility] History of Past illness Narrative* Problem Noted Date Resolved Date Well adult exam 10/19/2017 07/27/2019 Overview: Last done: 10/20/2017 Attention and concentration deficit 03/19/2015 07/27/2019 Esophageal reflux 02/21/2015 07/27/2019 Routine gynecological examination 08/10/2014 07/27/2019 Overview: [facility] Screening for diabetes mellitus (DM) 08/10/2014 07/27/2019 Need for lipid screening 08/10/2014 019 Fibromyalgia 05/07/2014 07/27/2019 Other acquired deformity of toe 05/20/2009 07/27/2019 Backache, unspecified 06/19/2008 07/27/2019 Overview: Patient has degenerative disc disease and a slipped disc in her back. The symptoms began July 2011. 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 She sees Dr. Salter at [facility] for both of these issues. Patient has multiple questions regarding anesthesia during delivery due to her back issues. I have asked her to discuss this with Dr. Salter at an upcoming appointment and have him dictate a letter to Dr. Anderson with any concerns he may have. documented as of this encounter (statuses as of 04/07/2022) [facility] History of Past illness Narrative* Problem Noted Date Resolved Date Well adult exam 10/19/2017 07/27/2019 Overview: Last done: 10/20/2017 Attention and concentration deficit 03/19/2015 07/27/2019 Esophageal reflux 02/21/2015 07/27/2019 Routine gynecological examination 08/10/2014 07/27/2019 Overview: [facility] Screening for diabetes mellitus (DM) 08/10/2014 07/27/2019 Need for lipid screening 08/10/2014 019 Fibromyalgia 05/07/2014 07/27/2019 Other acquired deformity of toe 05/20/2009 07/27/2019 Backache, unspecified 06/19/2008 07/27/2019 Overview: Patient has degenerative disc disease and a slipped disc in her back. The symptoms began July 2011. 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 She sees Dr. Salter at [facility] for both of these issues. Patient has multiple questions regarding anesthesia during delivery due to her back issues. I have asked her to discuss this with Dr. Salter at an upcoming appointment and have him dictate a letter to Dr. Anderson with any concerns he may have. documented as of this encounter (statuses as of 04/10/2022) [facility] History of Past illness Narrative* Problem Noted Date Resolved Date Well adult exam 10/19/2017 07/27/2019 Overview: Last done: 10/20/2017 Attention and concentration deficit 03/19/2015 07/27/2019 Esophageal reflux 02/21/2015 07/27/2019 Routine gynecological examination 08/10/2014 07/27/2019 Overview: Sees [facility] Screening for diabetes mellitus (DM) 08/10/2014 07/27/2019 Need for lipid screening 08/10/2014 019 Fibromyalgia 05/07/2014 07/27/2019 Other acquired deformity of toe 05/20/2009 07/27/2019 Backache, unspecified 06/19/2008 07/27/2019 Overview: Patient has degenerative disc disease and a slipped disc in her back. The symptoms began July 2011. 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 She sees Dr. Salter at [facility] for both of these issues. Patient has multiple questions regarding anesthesia during delivery due to her back issues. I have asked her to discuss this with Dr. Salter at an upcoming appointment and have him dictate a letter to Dr. Anderson with any concerns he may have. documented as of this encounter (statuses as of 04/14/2022) [facility] History of Past illness Narrative* Problem Noted Date Resolved Date Well adult exam 10/19/2017 07/27/2019 Overview: Last done: 10/20/2017 Attention and concentration deficit 03/19/2015 07/27/2019 Esophageal reflux 02/21/2015 07/27/2019 Routine gynecological examination 08/10/2014 07/27/2019 Overview: [facility] Screening for diabetes mellitus (DM) 08/10/2014 07/27/2019 Need for lipid screening 08/10/2014 019 Fibromyalgia 05/07/2014 07/27/2019 Other acquired deformity of toe 05/20/2009 07/27/2019 Backache, unspecified 06/19/2008 07/27/2019 Overview: Patient has degenerative disc disease and a slipped disc in her back. The symptoms began July 2011. 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 She sees Dr. Salter at [facility] for both of these issues. Patient has multiple questions regarding anesthesia during delivery due to her back issues. I have asked her to discuss this with Dr. Salter at an upcoming appointment and have him dictate a letter to Dr. Anderson with any concerns he may have. documented as of this encounter (statuses as of 05/14/2022) [facility] History of Past illness Narrative* Problem Noted Date Resolved Date Well adult exam 10/19/2017 07/27/2019 Overview: Last done: 10/20/2017 Attention and concentration deficit 03/19/2015 07/27/2019 Esophageal reflux 02/21/2015 07/27/2019 Routine gynecological examination 08/10/2014 07/27/2019 Overview: [facility] Screening for diabetes mellitus (DM) 08/10/2014 07/27/2019 Need for lipid screening 08/10/2014 019 Fibromyalgia 05/07/2014 07/27/2019 Other acquired deformity of toe 05/20/2009 07/27/2019 Backache, unspecified 06/19/2008 07/27/2019 Overview: Patient has degenerative disc disease and a slipped disc in her back. The symptoms began July 2011. 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 She sees Dr. Salter at [facility] for both of these issues. Patient has multiple questions regarding anesthesia during delivery due to her back issues. I have asked her to discuss this with Dr. Salter at an upcoming appointment and have him dictate a letter to Dr. Anderson with any concerns he may have. documented as of this encounter (statuses as of 05/26/2022) [facility] History of Past illness Narrative* Problem Noted Date Resolved Date Well adult exam 10/19/2017 07/27/2019 Overview: Last done: 10/20/2017 Attention and concentration deficit 03/19/2015 07/27/2019 Esophageal reflux 02/21/2015 07/27/2019 Routine gynecological examination 08/10/2014 07/27/2019 Overview: [facility] Screening for diabetes mellitus (DM) 08/10/2014 07/27/2019 Need for lipid screening 08/10/2014 019 Fibromyalgia 05/07/2014 07/27/2019 Other acquired deformity of toe 05/20/2009 07/27/2019 Backache, unspecified 06/19/2008 07/27/2019 Overview: Patient has degenerative disc disease and a slipped disc in her back. The symptoms began July 2011. 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 She sees Dr. Salter at [facility] for both of these issues. Patient has multiple questions regarding anesthesia during delivery due to her back issues. I have asked her to discuss this with Dr. Salter at an upcoming appointment and have him dictate a letter to Dr. Anderson with any concerns he may have. documented as of this encounter (statuses as of 06/24/2022) [facility] History of Past illness Narrative* Problem Noted Date Resolved Date Well adult exam 10/19/2017 07/27/2019 Overview: Last done: 10/20/2017 Attention and concentration deficit 03/19/2015 07/27/2019 Esophageal reflux 02/21/2015 07/27/2019 Routine gynecological examination 08/10/2014 07/27/2019 Overview: [facility] Screening for diabetes mellitus (DM) 08/10/2014 07/27/2019 Need for lipid screening 08/10/2014 019 Fibromyalgia 05/07/2014 07/27/2019 Other acquired deformity of toe 05/20/2009 07/27/2019 Backache, unspecified 06/19/2008 07/27/2019 Overview: Patient has degenerative disc disease and a slipped disc in her back. The symptoms began July 2011. 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 She sees Dr. Salter at [facility] for both of these issues. Patient has multiple questions regarding anesthesia during delivery due to her back issues. I have asked her to discuss this with Dr. Salter at an upcoming appointment and have him dictate a letter to Dr. Anderson with any concerns he may have. documented as of this encounter (statuses as of 07/01/2022) [facility] History of Past illness Narrative* Problem Noted Date Resolved Date Well adult exam 10/19/2017 07/27/2019 Overview: Last done: 10/20/2017 Attention and concentration deficit 03/19/2015 07/27/2019 Esophageal reflux 02/21/2015 07/27/2019 Routine gynecological examination 08/10/2014 07/27/2019 Overview: [facility] Screening for diabetes mellitus (DM) 08/10/2014 07/27/2019 Need for lipid screening 08/10/2014 019 Fibromyalgia 05/07/2014 07/27/2019 Other acquired deformity of toe 05/20/2009 07/27/2019 Backache, unspecified 06/19/2008 07/27/2019 Overview: Patient has degenerative disc disease and a slipped disc in her back. The symptoms began July 2011. 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 She sees Dr. Salter at [facility] for both of these issues. Patient has multiple questions regarding anesthesia during delivery due to her back issues. I have asked her to discuss this with Dr. Salter at an upcoming appointment and have him dictate a letter to Dr. Anderson with any concerns he may have. documented as of this encounter (statuses as of 07/06/2022) [facility] History of Past illness Narrative* Problem Noted Date Resolved Date Well adult exam 10/19/2017 07/27/2019 Overview: Last done: 10/20/2017 Attention and concentration deficit 03/19/2015 07/27/2019 Esophageal reflux 02/21/2015 07/27/2019 Routine gynecological examination 08/10/2014 07/27/2019 Overview: [facility] Screening for diabetes mellitus (DM) 08/10/2014 07/27/2019 Need for lipid screening 08/10/2014 019 Fibromyalgia 05/07/2014 07/27/2019 Other acquired deformity of toe 05/20/2009 07/27/2019 Backache, unspecified 06/19/2008 07/27/2019 Overview: Patient has degenerative disc disease and a slipped disc in her back. The symptoms began July 2011. 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 She sees Dr. Salter at [facility] for both of these issues. Patient has multiple questions regarding anesthesia during delivery due to her back issues. I have asked her to discuss this with Dr. Salter at an upcoming appointment and have him dictate a letter to Dr. Anderson with any concerns he may have. documented as of this encounter (statuses as of 07/07/2022) [facility] History of Past illness Narrative* Problem Noted Date Resolved Date Well adult exam 10/19/2017 07/27/2019 Overview: Last done: 10/20/2017 Attention and concentration deficit 03/19/2015 07/27/2019 Esophageal reflux 02/21/2015 07/27/2019 Routine gynecological examination 08/10/2014 07/27/2019 Overview: [facility] Screening for diabetes mellitus (DM) 08/10/2014 07/27/2019 Need for lipid screening 08/10/2014 019 Fibromyalgia 05/07/2014 07/27/2019 Other acquired deformity of toe 05/20/2009 07/27/2019 Backache, unspecified 06/19/2008 07/27/2019 Overview: Patient has degenerative disc disease and a slipped disc in her back. The symptoms began July 2011. 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 She sees Dr. Salter at [facility] for both of these issues. Patient has multiple questions regarding anesthesia during delivery due to her back issues. I have asked her to discuss this with Dr. Salter at an upcoming appointment and have him dictate a letter to Dr. Anderson with any concerns he may have. documented as of this encounter (statuses as of 07/31/2022) [facility] History of Past illness Narrative* Problem Noted Date Resolved Date Attention and concentration deficit 03/19/2015 07/27/2019 Esophageal reflux 02/21/2015 07/27/2019 Routine gynecological examination 08/10/2014 07/27/2019 Overview: [facility] Screening for diabetes mellitus (DM) 08/10/2014 07/27/2019 Need for lipid screening 08/10/2014 019 Fibromyalgia 05/07/2014 07/27/2019 Other acquired deformity of toe 05/20/2009 07/27/2019 Backache, unspecified 06/19/2008 07/27/2019 Overview: Patient has degenerative disc disease and a slipped disc in her back. The symptoms began July 2011. 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 She sees Dr. Salter at [facility] for both of these issues. Patient has multiple questions regarding anesthesia during delivery due to her back issues. I have asked her to discuss this with Dr. Salter at an upcoming appointment and have him dictate a letter to Dr. Anderson with any concerns he may have. documented as of this encounter (statuses as of 10/12/2022) [facility] History of Past illness Narrative* Problem Noted Date Resolved Date Attention and concentration deficit 03/19/2015 07/27/2019 Esophageal reflux 02/21/2015 07/27/2019 Routine gynecological examination 08/10/2014 07/27/2019 Overview: [facility] Screening for diabetes mellitus (DM) 08/10/2014 07/27/2019 Need for lipid screening 08/10/20142 019 Fibromyalgia 05/07/2014 07/27/2019 Other acquired deformity of toe 05/20/2009 07/27/2019 Backache, unspecified 06/19/2008 07/27/2019 Overview: Patient has degenerative disc disease and a slipped disc in her back. The symptoms began July 2011. 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 She sees Dr. Salter at [facility] for both of these issues. Patient has multiple questions regarding anesthesia during delivery due to her back issues. I have asked her to discuss this with Dr. Salter at an upcoming appointment and have him dictate a letter to Dr. Anderson with any concerns he may have. documented as of this encounter (statuses as of 11/26/2022) [facility] History of Past illness Narrative* Problem Noted Date Resolved Date Attention and concentration deficit 03/19/2015 07/27/2019 Esophageal reflux 02/21/2015 07/27/2019 Routine gynecological examination 08/10/2014 07/27/2019 Overview: [facility] Screening for diabetes mellitus (DM) 08/10/2014 07/27/2019 Need for lipid screening 08/10/20142 019 Fibromyalgia 05/07/2014 07/27/2019 Other acquired deformity of toe 05/20/2009 07/27/2019 Backache, unspecified 06/19/2008 07/27/2019 Overview: Patient has degenerative disc disease and a slipped disc in her back. The symptoms began July 2011. 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 She sees Dr. Salter at [facility] for both of these issues. Patient has multiple questions regarding anesthesia during delivery due to her back issues. I have asked her to discuss this with Dr. Salter at an upcoming appointment and have him dictate a letter to Dr. Anderson with any concerns he may have. documented as of this encounter (statuses as of 11/27/2022) [facility]04-28[facility]2015 History of Past illness Narrative* Problem Noted Date Resolved Date Attention and concentration deficit 03/19/2015 07/27/2019 Esophageal reflux 02/21/2015 07/27/2019 Routine gynecological examination 08/10/2014 07/27/2019 Overview: [facility] Screening for diabetes mellitus (DM) 08/10/2014 07/27/2019 Need for lipid screening 08/10/2014 019 Fibromyalgia 05/07/2014 07/27/2019 Other acquired deformity of toe 05/20/2009 07/27/2019 Backache, unspecified 06/19/2008 07/27/2019 Overview: Patient has degenerative disc disease and a slipped disc in her back. The symptoms began July 2011. 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 She sees Dr. Salter at [facility] for both of these issues. Patient has multiple questions regarding anesthesia during delivery due to her back issues. I have asked her to discuss this with Dr. Salter at an upcoming appointment and have him dictate a letter to Dr. Anderson with any concerns he may have. documented as of this encounter (statuses as of 12/17/2022) [facility]04-28[facility]2015 History of Past illness Narrative* Problem Noted Date Resolved Date Attention and concentration deficit 03/19/2015 07/27/2019 Esophageal reflux 02/21/2015 07/27/2019 Routine gynecological examination 08/10/2014 07/27/2019 Overview: [facility] Screening for diabetes mellitus (DM) 08/10/2014 07/27/2019 Need for lipid screening 08/10/2014 019 Fibromyalgia 05/07/2014 07/27/2019 Other acquired deformity of toe 05/20/2009 07/27/2019 Backache, unspecified 06/19/2008 07/27/2019 Overview: Patient has degenerative disc disease and a slipped disc in her back. The symptoms began July 2011. 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 She sees Dr. Salter at [facility] for both of these issues. Patient has multiple questions regarding anesthesia during delivery due to her back issues. I have asked her to discuss this with Dr. Salter at an upcoming appointment and have him dictate a letter to Dr. Anderson with any concerns he may have. documented as of this encounter (statuses as of 01/12/2023) [facility]04-[facility]2015 History of Past illness Narrative* Problem Noted Date Resolved Date Attention and concentration deficit 03/19/2015 07/27/2019 Esophageal reflux 02/21/2015 07/27/2019 Routine gynecological examination 08/10/2014 07/27/2019 Overview: [facility] Screening for diabetes mellitus (DM) 08/10/2014 07/27/2019 Need for lipid screening 08/10/2014 019 Fibromyalgia 05/07/2014 07/27/2019 Other acquired deformity of toe 05/20/2009 07/27/2019 Backache, unspecified 06/19/2008 07/27/2019 Overview: Patient has degenerative disc disease and a slipped disc in her back. The symptoms began July 2011. 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 She sees Dr. Salter at [facility] for both of these issues. Patient has multiple questions regarding anesthesia during delivery due to her back issues. I have asked her to discuss this with Dr. Salter at an upcoming appointment and have him dictate a letter to Dr. Anderson with any concerns he may have. documented as of this encounter (statuses as of 01/22/2023) [facility]04[facility]2015 History of Past illness Narrative* Problem Noted Date Resolved Date Attention and concentration deficit 03/19/2015 07/27/2019 Esophageal reflux 02/21/2015 07/27/2019 Routine gynecological examination 08/10/2014 07/27/2019 Overview: [facility] Screening for diabetes mellitus (DM) 08/10/2014 07/27/2019 Need for lipid screening 08/10/20142 019 Fibromyalgia 05/07/2014 07/27/2019 Other acquired deformity of toe 05/20/2009 07/27/2019 Backache, unspecified 06/19/2008 07/27/2019 Overview: Patient has degenerative disc disease and a slipped disc in her back. The symptoms began July 2011. 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 She sees Dr. Salter at [facility] for both of these issues. Patient has multiple questions regarding anesthesia during delivery due to her back issues. I have asked her to discuss this with Dr. Salter at an upcoming appointment and have him dictate a letter to Dr. Anderson with any concerns he may have. documented as of this encounter (statuses as of 01/22/2023) [facility]04[facility] History of Past illness Narrative* Problem Noted Date Resolved Date Attention and concentration deficit 03/19/2015 07/27/2019 Esophageal reflux 02/21/2015 07/27/2019 Routine gynecological examination 08/10/2014 07/27/2019 Overview: Sees [facility] Screening for diabetes mellitus (DM) 08/10/2014 07/27/2019 Need for lipid screening 08/10/2014 019 Fibromyalgia 05/07/2014 07/27/2019 Other acquired deformity of toe 05/20/2009 07/27/2019 Backache, unspecified 06/19/2008 07/27/2019 Overview: Patient has degenerative disc disease and a slipped disc in her back. The symptoms began July 2011. 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 She sees Dr. Salter at [facility] for both of these issues. Patient has multiple questions regarding anesthesia during delivery due to her back issues. I have asked her to discuss this with Dr. Salter at an upcoming appointment and have him dictate a letter to Dr. Anderson with any concerns he may have. documented as of this encounter (statuses as of 01/26/2023) [facility]04[facility] History of Past illness Narrative* Problem Noted Date Resolved Date Attention and concentration deficit 03/19/2015 07/27/2019 Esophageal reflux 02/21/2015 07/27/2019 Routine gynecological examination 08/10/2014 07/27/2019 Overview: [facility] Screening for diabetes mellitus (DM) 08/10/2014 07/27/2019 Need for lipid screening 08/10/2014 019 Fibromyalgia 05/07/2014 07/27/2019 Other acquired deformity of toe 05/20/2009 07/27/2019 Backache, unspecified 06/19/2008 07/27/2019 Overview: Patient has degenerative disc disease and a slipped disc in her back. The symptoms began July 2011. 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 She sees Dr. Salter at [facility] for both of these issues. Patient has multiple questions regarding anesthesia during delivery due to her back issues. I have asked her to discuss this with Dr. Salter at an upcoming appointment and have him dictate a letter to Dr. Anderson with any concerns he may have. documented as of this encounter (statuses as of 01/28/2023) [facility] History of Past illness Narrative* Problem Noted Date Resolved Date Attention and concentration deficit 03/19/2015 07/27/2019 Esophageal reflux 02/21/2015 07/27/2019 Routine gynecological examination 08/10/2014 07/27/2019 Overview: [facility] Screening for diabetes mellitus (DM) 08/10/2014 07/27/2019 Need for lipid screening 08/10/2014 019 Fibromyalgia 05/07/2014 07/27/2019 Other acquired deformity of toe 05/20/2009 07/27/2019 Backache, unspecified 06/19/2008 07/27/2019 Overview: Patient has degenerative disc disease and a slipped disc in her back. The symptoms began July 2011. 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 She sees Dr. Salter at [facility] for both of these issues. Patient has multiple questions regarding anesthesia during delivery due to her back issues. I have asked her to discuss this with Dr. Salter at an upcoming appointment and have him dictate a letter to Dr. Anderson with any concerns he may have. documented as of this encounter (statuses as of 02/06/2023) [facility]04[facility] History of Past illness Narrative* Problem Noted Date Resolved Date Attention and concentration deficit 03/19/2015 07/27/2019 Esophageal reflux 02/21/2015 07/27/2019 Routine gynecological examination 08/10/2014 07/27/2019 Overview: [facility] Screening for diabetes mellitus (DM) 08/10/2014 07/27/2019 Need for lipid screening 08/10/2014 019 Fibromyalgia 05/07/2014 07/27/2019 Other acquired deformity of toe 05/20/2009 07/27/2019 Backache, unspecified 06/19/2008 07/27/2019 Overview: Patient has degenerative disc disease and a slipped disc in her back. The symptoms began July 2011. 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 She sees Dr. Salter at [facility] for both of these issues. Patient has multiple questions regarding anesthesia during delivery due to her back issues. I have asked her to discuss this with Dr. Salter at an upcoming appointment and have him dictate a letter to Dr. Anderson with any concerns he may have. documented as of this encounter (statuses as of 02/13/2023) [facility]04[facility] History of Past illness Narrative* Problem Noted Date Resolved Date Attention and concentration deficit 03/19/2015 07/27/2019 Esophageal reflux 02/21/2015 07/27/2019 Routine gynecological examination 08/10/2014 07/27/2019 Overview: [facility] Screening for diabetes mellitus (DM) 08/10/2014 07/27/2019 Need for lipid screening 08/10/2014 019 Fibromyalgia 05/07/2014 07/27/2019 Other acquired deformity of toe 05/20/2009 07/27/2019 Backache, unspecified 06/19/2008 07/27/2019 Overview: Patient has degenerative disc disease and a slipped disc in her back. The symptoms began July 2011. 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 She sees Dr. Salter at [facility] for both of these issues. Patient has multiple questions regarding anesthesia during delivery due to her back issues. I have asked her to discuss this with Dr. Salter at an upcoming appointment and have him dictate a letter to Dr. Anderson with any concerns he may have. documented as of this encounter (statuses as of 02/17/2023) [facility] History of Past illness Narrative* Problem Noted Date Resolved Date Attention and concentration deficit 03/19/2015 07/27/2019 Esophageal reflux 02/21/2015 07/27/2019 Routine gynecological examination 08/10/2014 07/27/2019 Overview: [facility] Screening for diabetes mellitus (DM) 08/10/2014 07/27/2019 Need for lipid screening 08/10/2014 019 Fibromyalgia 05/07/2014 07/27/2019 Other acquired deformity of toe 05/20/2009 07/27/2019 Backache, unspecified 06/19/2008 07/27/2019 Overview: Patient has degenerative disc disease and a slipped disc in her back. The symptoms began July 2011. 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 She sees Dr. Salter at [facility] for both of these issues. Patient has multiple questions regarding anesthesia during delivery due to her back issues. I have asked her to discuss this with Dr. Salter at an upcoming appointment and have him dictate a letter to Dr. Anderson with any concerns he may have. documented as of this encounter (statuses as of 03/04/2023) [facility] History of Past illness Narrative* Problem Noted Date Resolved Date Attention and concentration deficit 03/19/2015 07/27/2019 Esophageal reflux 02/21/2015 07/27/2019 Routine gynecological examination 08/10/2014 07/27/2019 Overview: [facility] Screening for diabetes mellitus (DM) 08/10/2014 07/27/2019 Need for lipid screening 08/10/2014 019 Fibromyalgia 05/07/2014 07/27/2019 Other acquired deformity of toe 05/20/2009 07/27/2019 Backache, unspecified 06/19/2008 07/27/2019 Overview: Patient has degenerative disc disease and a slipped disc in her back. The symptoms began July 2011. 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 She sees Dr. Salter at [facility] for both of these issues. Patient has multiple questions regarding anesthesia during delivery due to her back issues. I have asked her to discuss this with Dr. Salter at an upcoming appointment and have him dictate a letter to Dr. Anderson with any concerns he may have. documented as of this encounter (statuses as of 03/29/2023) [facility] History of Past illness Narrative* Problem Noted Date Resolved Date Attention and concentration deficit 03/19/2015 07/27/2019 Esophageal reflux 02/21/2015 07/27/2019 Routine gynecological examination 08/10/2014 07/27/2019 Overview: Sees [facility] Screening for diabetes mellitus (DM) 08/10/2014 07/27/2019 Need for lipid screening 08/10/2014 019 Fibromyalgia 05/07/2014 07/27/2019 Other acquired deformity of toe 05/20/2009 07/27/2019 Backache, unspecified 06/19/2008 07/27/2019 Overview: Patient has degenerative disc disease and a slipped disc in her back. The symptoms began July 2011. 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 She sees Dr. Salter at [facility] for both of these issues. Patient has multiple questions regarding anesthesia during delivery due to her back issues. I have asked her to discuss this with Dr. Salter at an upcoming appointment and have him dictate a letter to Dr. Anderson with any concerns he may have. documented as of this encounter (statuses as of 04/02/2023) [facility] History of Past illness Narrative* Problem Noted Date Resolved Date Attention and concentration deficit 03/19/2015 07/27/2019 Esophageal reflux 02/21/2015 07/27/2019 Routine gynecological examination 08/10/2014 07/27/2019 Overview: [facility] Screening for diabetes mellitus (DM) 08/10/2014 07/27/2019 Need for lipid screening 08/10/2014 019 Fibromyalgia 05/07/2014 07/27/2019 Other acquired deformity of toe 05/20/2009 07/27/2019 Backache, unspecified 06/19/2008 07/27/2019 Overview: Patient has degenerative disc disease and a slipped disc in her back. The symptoms began July 2011. 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 She sees Dr. Salter at [facility] for both of these issues. Patient has multiple questions regarding anesthesia during delivery due to her back issues. I have asked her to discuss this with Dr. Salter at an upcoming appointment and have him dictate a letter to Dr. Anderson with any concerns he may have. documented as of this encounter (statuses as of 04/05/2023) [facility] History of Past illness Narrative* Problem Noted Date Resolved Date Attention and concentration deficit 03/19/2015 07/27/2019 Esophageal reflux 02/21/2015 07/27/2019 Routine gynecological examination 08/10/2014 07/27/2019 Overview: [facility] Screening for diabetes mellitus (DM) 08/10/2014 07/27/2019 Need for lipid screening 08/10/2014 019 Fibromyalgia 05/07/2014 07/27/2019 Other acquired deformity of toe 05/20/2009 07/27/2019 Backache, unspecified 06/19/2008 07/27/2019 Overview: Patient has degenerative disc disease and a slipped disc in her back. The symptoms began July 2011. 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 She sees Dr. Salter at [facility] for both of these issues. Patient has multiple questions regarding anesthesia during delivery due to her back issues. I have asked her to discuss this with Dr. Salter at an upcoming appointment and have him dictate a letter to Dr. Anderson with any concerns he may have. documented as of this encounter (statuses as of 04/26/2023) [place] [address]-28-2015 History of Past illness Narrative* Problem Noted Date Resolved Date Attention and concentration deficit 03/19/2015 07/27/2019 Esophageal reflux 02/21/2015 07/27/2019 Routine gynecological examination 08/10/2014 07/27/2019 Overview: [facility] Screening for diabetes mellitus (DM) 08/10/2014 07/27/2019 Need for lipid screening 08/10/2014 019 Fibromyalgia 05/07/2014 07/27/2019 Other acquired deformity of toe 05/20/2009 07/27/2019 Backache, unspecified 06/19/2008 07/27/2019 Overview: Patient has degenerative disc disease and a slipped disc in her back. The symptoms began July 2011. 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 She sees Dr. Salter at [facility] for both of these issues. Patient has multiple questions regarding anesthesia during delivery due to her back issues. I have asked her to discuss this with Dr. Salter at an upcoming appointment and have him dictate a letter to Dr. Anderson with any concerns he may have. documented as of this encounter (statuses as of 04/27/2023) [facility] History of Past illness Narrative* Problem Noted Date Resolved Date Attention and concentration deficit 03/19/2015 07/27/2019 Esophageal reflux 02/21/2015 07/27/2019 Routine gynecological examination 08/10/2014 07/27/2019 Overview: [facility] Screening for diabetes mellitus (DM) 08/10/2014 07/27/2019 Need for lipid screening 08/10/2014 019 Fibromyalgia 05/07/2014 07/27/2019 Other acquired deformity of toe 05/20/2009 07/27/2019 Backache, unspecified 06/19/2008 07/27/2019 Overview: Patient has degenerative disc disease and a slipped disc in her back. The symptoms began July 2011. 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 She sees Dr. Salter at [facility] for both of these issues. Patient has multiple questions regarding anesthesia during delivery due to her back issues. I have asked her to discuss this with Dr. Salter at an upcoming appointment and have him dictate a letter to Dr. Anderson with any concerns he may have. documented as of this encounter (statuses as of 04/28/2023) [facility] History of Past illness Narrative* Problem Noted Date Diagnosed Date Resolved Date Attention and concentration deficit 03/19/2015 07/27/2019 Esophageal reflux 02/21/2015 07/27/2019 Routine gynecological examination 08/10/2014 07/27/2019 Overview: [facility] Screening for diabetes mellitus (DM) 08/10/2014 07/27/2019 Need for lipid screening 08/10/201403/2019 Fibromyalgia 05/07/2014 07/27/2019 Other acquired deformity of toe 05/20/2009 07/27/2019 Backache, unspecified 06/19/20082018 Overview: Patient has degenerative disc disease and a slipped disc in her back. The symptoms began July 2011. 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 She sees Dr. Salter at [facility] for both of these issues. Patient has multiple questions regarding anesthesia during delivery due to her back issues. I have asked her to discuss this with Dr. Salter at an upcoming appointment and have him dictate a letter to Dr. Anderson with any concerns he may have. documented as of this encounter (statuses as of 06/08/2023) [facility] History of Past illness Narrative* Problem Noted Date Diagnosed Date Resolved Date Attention and concentration deficit 03/19/2015 07/27/2019 Esophageal reflux 02/21/2015 07/27/2019 Routine gynecological examination 08/10/2014 07/27/2019 Overview: [facility] Screening for diabetes mellitus (DM) 08/10/2014 07/27/2019 Need for lipid screening 08/10/201403/2019 Fibromyalgia 05/07/2014 07/27/2019 Other acquired deformity of toe 05/20/2009 07/27/2019 Backache, unspecified 06/19/20082018 Overview: Patient has degenerative disc disease and a slipped disc in her back. The symptoms began July 2011. 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 She sees Dr. Salter at [facility] for both of these issues. Patient has multiple questions regarding anesthesia during delivery due to her back issues. I have asked her to discuss this with Dr. Salter at an upcoming appointment and have him dictate a letter to Dr. Anderson with any concerns he may have. documented as of this encounter (statuses as of 07/09/2023) [facility] History of Past illness Narrative* Problem Noted Date Diagnosed Date Resolved Date Attention and concentration deficit 03/19/2015 07/27/2019 Esophageal reflux 02/21/2015 07/27/2019 Routine gynecological examination 08/10/2014 07/27/2019 Overview: Sees [facility] Screening for diabetes mellitus (DM) 08/10/2014 07/27/2019 Need for lipid screening 08/10/201403/2019 Fibromyalgia 05/07/2014 07/27/2019 Other acquired deformity of toe 05/20/2009 07/27/2019 Backache, unspecified 06/19/20082018 Overview: Patient has degenerative disc disease and a slipped disc in her back. The symptoms began July 2011. 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 She sees Dr. Salter at [facility] for both of these issues. Patient has multiple questions regarding anesthesia during delivery due to her back issues. I have asked her to discuss this with Dr. Salter at an upcoming appointment and have him dictate a letter to Dr. Anderson with any concerns he may have. documented as of this encounter (statuses as of 09/16/2023) [facility] History of Past illness Narrative* Problem Noted Date Diagnosed Date Resolved Date Attention and concentration deficit 03/19/2015 07/27/2019 Esophageal reflux 02/21/2015 07/27/2019 Routine gynecological examination 08/10/2014 07/27/2019 Overview: [facility] Screening for diabetes mellitus (DM) 08/10/2014 07/27/2019 Need for lipid screening 08/10/201403/2019 Fibromyalgia 05/07/2014 07/27/2019 Other acquired deformity of toe 05/20/2009 07/27/2019 Backache, unspecified 06/19/20082018 Overview: Patient has degenerative disc disease and a slipped disc in her back. The symptoms began July 2011. 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 She sees Dr. Salter at [facility] for both of these issues. Patient has multiple questions regarding anesthesia during delivery due to her back issues. I have asked her to discuss this with Dr. Salter at an upcoming appointment and have him dictate a letter to Dr. Anderson with any concerns he may have. documented as of this encounter (statuses as of 09/16/2023) [facility] History of Past illness Narrative* Problem Noted Date Diagnosed Date Resolved Date Attention and concentration deficit 03/19/2015 07/27/2019 Esophageal reflux 02/21/2015 07/27/2019 Routine gynecological examination 08/10/2014 07/27/2019 Overview: [facility] Screening for diabetes mellitus (DM) 08/10/2014 07/27/2019 Need for lipid screening 08/10/201403/2019 Fibromyalgia 05/07/2014 07/27/2019 Other acquired deformity of toe 05/20/2009 07/27/2019 Backache, unspecified 06/19/20082018 Overview: Patient has degenerative disc disease and a slipped disc in her back. The symptoms began July 2011. 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 She sees Dr. Salter at [facility] for both of these issues. Patient has multiple questions regarding anesthesia during delivery due to her back issues. I have asked her to discuss this with Dr. Salter at an upcoming appointment and have him dictate a letter to Dr. Anderson with any concerns he may have. documented as of this encounter (statuses as of 09/26/2023) [facility] History of Past illness Narrative* Problem Noted Date Diagnosed Date Resolved Date Attention and concentration deficit 03/19/2015 07/27/2019 Esophageal reflux 02/21/2015 07/27/2019 Routine gynecological examination 08/10/2014 07/27/2019 Overview: [facility] Screening for diabetes mellitus (DM) 08/10/2014 07/27/2019 Need for lipid screening 08/10/201403/2019 Fibromyalgia 05/07/2014 07/27/2019 Other acquired deformity of toe 05/20/2009 07/27/2019 Backache, unspecified 06/19/20082018 Overview: Patient has degenerative disc disease and a slipped disc in her back. The symptoms began July 2011. 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 She sees Dr. Salter at [facility] for both of these issues. Patient has multiple questions regarding anesthesia during delivery due to her back issues. I have asked her to discuss this with Dr. Salter at an upcoming appointment and have him dictate a letter to Dr. Anderson with any concerns he may have. documented as of this encounter (statuses as of 10/04/2023) [facility] History of Past illness Narrative* Problem Noted Date Diagnosed Date Resolved Date Attention and concentration deficit 03/19/2015 07/27/2019 Esophageal reflux 02/21/2015 07/27/2019 Routine gynecological examination 08/10/2014 07/27/2019 Overview: [facility] Screening for diabetes mellitus (DM) 08/10/2014 07/27/2019 Need for lipid screening 08/10/201403/2019 Fibromyalgia 05/07/2014 07/27/2019 Other acquired deformity of toe 05/20/2009 07/27/2019 Backache, unspecified 06/19/20082018 Overview: Patient has degenerative disc disease and a slipped disc in her back. The symptoms began July 2011. 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 She sees Dr. Salter at [facility] for both of these issues. Patient has multiple questions regarding anesthesia during delivery due to her back issues. I have asked her to discuss this with Dr. Salter at an upcoming appointment and have him dictate a letter to Dr. Anderson with any concerns he may have. documented as of this encounter (statuses as of 11/06/2023) [facility] History of Past illness Narrative* Problem Noted Date Diagnosed Date Resolved Date Attention and concentration deficit 03/19/2015 07/27/2019 Esophageal reflux 02/21/2015 07/27/2019 Routine gynecological examination 08/10/2014 07/27/2019 Overview: [facility] Screening for diabetes mellitus (DM) 08/10/2014 07/27/2019 Need for lipid screening 08/10/201403/2019 Fibromyalgia 05/07/2014 07/27/2019 Other acquired deformity of toe 05/20/2009 07/27/2019 Backache, unspecified 06/19/20082018 Overview: Patient has degenerative disc disease and a slipped disc in her back. The symptoms began July 2011. 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 She sees Dr. Salter at [facility] for both of these issues. Patient has multiple questions regarding anesthesia during delivery due to her back issues. I have asked her to discuss this with Dr. Salter at an upcoming appointment and have him dictate a letter to Dr. Anderson with any concerns he may have. documented as of this encounter (statuses as of 01/03/2024) [facility] History of Past illness Narrative* Problem Noted Date Diagnosed Date Resolved Date Attention and concentration deficit 03/19/2015 07/27/2019 Esophageal reflux 02/21/2015 07/27/2019 Routine gynecological examination 08/10/2014 07/27/2019 Overview: [facility] Screening for diabetes mellitus (DM) 08/10/2014 07/27/2019 Need for lipid screening 08/10/201403/2019 Fibromyalgia 05/07/2014 07/27/2019 Other acquired deformity of toe 05/20/2009 07/27/2019 Backache, unspecified 06/19/20082018 Overview: Patient has degenerative disc disease and a slipped disc in her back. The symptoms began July 2011. 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 She sees Dr. Salter at [facility] for both of these issues. Patient has multiple questions regarding anesthesia during delivery due to her back issues. I have asked her to discuss this with Dr. Salter at an upcoming appointment and have him dictate a letter to Dr. Anderson with any concerns he may have. documented as of this encounter (statuses as of 01/07/2024) [place] [id number] History of Past illness Narrative* Problem Noted Date Diagnosed Date Resolved Date Attention and concentration deficit 03/19/2015 07/27/2019 Esophageal reflux 02/21/2015 07/27/2019 Routine gynecological examination 08/10/2014 07/27/2019 Overview: Sees [facility] Screening for diabetes mellitus (DM) 08/10/2014 07/27/2019 Need for lipid screening 08/10/201403/2019 Fibromyalgia 05/07/2014 07/27/2019 Other acquired deformity of toe 05/20/2009 07/27/2019 Backache, unspecified 06/19/20082018 Overview: Patient has degenerative disc disease and a slipped disc in her back. The symptoms began July 2011. 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 She sees Dr. Salter at [facility] for both of these issues. Patient has multiple questions regarding anesthesia during delivery due to her back issues. I have asked her to discuss this with Dr. Salter at an upcoming appointment and have him dictate a letter to Dr. Anderson with any concerns he may have. documented as of this encounter (statuses as of 01/07/2024) [facility] History of Past illness Narrative* Problem Noted Date Diagnosed Date Resolved Date Attention and concentration deficit 03/19/2015 07/27/2019 Esophageal reflux 02/21/2015 07/27/2019 Routine gynecological examination 08/10/2014 07/27/2019 Overview: [facility] Screening for diabetes mellitus (DM) 08/10/2014 07/27/2019 Need for lipid screening 08/10/201403/2019 Fibromyalgia 05/07/2014 07/27/2019 Other acquired deformity of toe 05/20/2009 07/27/2019 Backache, unspecified 06/19/20082018 Overview: Patient has degenerative disc disease and a slipped disc in her back. The symptoms began July 2011. 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 She sees Dr. Salter at [facility] for both of these issues. Patient has multiple questions regarding anesthesia during delivery due to her back issues. I have asked her to discuss this with Dr. Salter at an upcoming appointment and have him dictate a letter to Dr. Anderson with any concerns he may have. documented as of this encounter (statuses as of 01/13/2024) [facility] History of Past illness Narrative* Problem Noted Date Diagnosed Date Resolved Date Attention and concentration deficit 03/19/2015 07/27/2019 Esophageal reflux 02/21/2015 07/27/2019 Routine gynecological examination 08/10/2014 07/27/2019 Overview: [facility] Screening for diabetes mellitus (DM) 08/10/2014 07/27/2019 Need for lipid screening 08/10/201403/2019 Fibromyalgia 05/07/2014 07/27/2019 Other acquired deformity of toe 05/20/2009 07/27/2019 Backache, unspecified 06/19/20082018 Overview: Patient has degenerative disc disease and a slipped disc in her back. The symptoms began July 2011. 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 She sees Dr. Salter at [facility] for both of these issues. Patient has multiple questions regarding anesthesia during delivery due to her back issues. I have asked her to discuss this with Dr. Salter at an upcoming appointment and have him dictate a letter to Dr. Anderson with any concerns he may have. 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 thyroid gland Sialoadenitis of submandibular gland Sialoadenitis documented in this encounter [facility] note* Diagnosis Sialadenitis- Primary [facility]oadenitis [facility] Diagnosis SI (sacroiliac) joint dysfunction- Primary Disorders of sacrum Lumbar degenerative disc disease Degeneration of lumbar or lumbosacral intervertebral disc documented in this encounter [facility] note* Diagnosis SI (sacroiliac) joint dysfunction- Primary Disorders of sacrum Sacroiliitis, not elsewhere classified (HCC) Sacroiliitis, not elsewhere classified documented in this encounter [facility] note* Diagnosis Sialadenitis Sialoadenitis [facility] Diagnosis SI (sacroiliac) joint dysfunction- Primary Disorders of sacrum Sacroiliitis, not elsewhere classified (HCC) Sacroiliitis, not elsewhere classified SI (sacroiliac) joint dysfunction Disorders of sacrum Sacroiliitis, not elsewhere classified (HCC) Sacroiliitis, not elsewhere classified documented in this encounter [facility] note* Diagnosis SI (sacroiliac) joint dysfunction- Primary Disorders of sacrum Sacroiliitis, not elsewhere classified (HCC) Sacroiliitis, not elsewhere classified documented in this encounter [facility] note* Diagnosis Sialadenitis- Primary Sialoadenitis [facility] Diagnosis SI (sacroiliac) joint dysfunction- Primary Disorders of sacrum Sacroiliitis, not elsewhere classified (HCC) Sacroiliitis, not elsewhere classified SI (sacroiliac) joint dysfunction Disorders of sacrum Sacroiliitis, not elsewhere classified (HCC) Sacroiliitis, not elsewhere classified documented in this encounter [facility] note* Diagnosis Hypertension, essential- Primary Unspecified essential hypertension Weight gain Abnormal weight gain Primary thyroid papillary carcinoma (HCC) Malignant neoplasm of thyroid gland Encounter for lipid screening for cardiovascular disease Screening for lipoid disorders Screening for diabetes mellitus SI (sacroiliac) joint dysfunction Disorders of sacrum Sacroiliitis, not elsewhere classified (HCC) Sacroiliitis, not elsewhere classified documented in this encounter [facility] note* Diagnosis SI (sacroiliac) joint dysfunction Disorders of sacrum Lumbar degenerative disc disease Degeneration of lumbar or lumbosacral intervertebral disc documented in this encounter [facility] note* Diagnosis 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 Postsurgical hypothyroidism Sialoadenitis of submandibular gland Sialoadenitis [facility] Diagnosis Bloating- Primary Flatulence, eructation, and gas pain documented in this encounter [facility] note* Diagnosis SI (sacroiliac) joint dysfunction Disorders of sacrum Lumbar degenerative disc disease Degeneration of lumbar or lumbosacral intervertebral disc documented in this encounter [facility] note* Diagnosis Lumbar degenerative disc disease- Primary Degeneration of lumbar or lumbosacral intervertebral disc SI (sacroiliac) joint dysfunction Disorders of sacrum Sacroiliitis, not elsewhere classified (HCC) Sacroiliitis, not elsewhere classified documented in this encounter [facility] note* Diagnosis Bacterial sinusitis- Primary Unspecified sinusitis (chronic) documented in this encounter [facility] note* Diagnosis Lumbar degenerative disc disease- Primary Degeneration of lumbar or lumbosacral intervertebral disc SI (sacroiliac) joint dysfunction Disorders of sacrum Sacroiliitis, not elsewhere classified (HCC) Sacroiliitis, not elsewhere classified SI (sacroiliac) joint dysfunction Disorders of sacrum Sacroiliitis, not elsewhere classified (HCC) Sacroiliitis, not elsewhere classified documented in this encounter [facility] note* Diagnosis SI (sacroiliac) joint dysfunction Disorders of sacrum Lumbar degenerative disc disease Degeneration of lumbar or lumbosacral intervertebral disc documented in this encounter [facility] note* Diagnosis Hypertension, essential- Primary Unspecified essential [...] for diabetes mellitus [facility] Diagnosis Post-surgical hypothyroidism- Primary Postsurgical hypothyroidism Adverse effect of treatment, subsequent encounter Adverse effect of treatment, initial encounter [facility] SI (sacroiliac) joint dysfunction Disorders of sacrum Lumbar degenerative disc disease Degeneration of lumbar or lumbosacral intervertebral disc [facility] Diagnosis SI (sacroiliac) joint dysfunction- Primary Disorders of sacrum Sacroiliitis, not elsewhere classified (HCC) Sacroiliitis, not elsewhere classified SI (sacroiliac) joint dysfunction Disorders of sacrum Sacroiliitis, not elsewhere classified (HCC) Sacroiliitis, not elsewhere classified [facility] Diagnosis Spinal stenosis of lumbar region, unspecified whether neurogenic claudication present- Primary SI (sacroiliac) joint dysfunction Disorders of sacrum Lumbar degenerative disc disease Degeneration of lumbar or lumbosacral intervertebral disc [facility] Diagnosis SI (sacroiliac) joint dysfunction- Primary Disorders of sacrum SI (sacroiliac) joint dysfunction Disorders of sacrum [facility] Diagnosis Adverse effect of treatment, initial encounter SI (sacroiliac) joint dysfunction Disorders of sacrum [facility] Diagnosis Sore throat- Primary Acute pharyngitis Bronchitis Bronchitis, not specified as acute or chronic Lower resp. tract infection Other diseases of respiratory system, not elsewhere classified SI (sacroiliac) joint dysfunction Disorders of sacrum [facility] Diagnosis Plantar wart of left foot- Primary Plantar wart SI (sacroiliac) joint dysfunction Disorders of sacrum [facility] Diagnosis Sore throat- Primary Acute pharyngitis URI, acute Acute upper respiratory infections of unspecified site [facility] Diagnosis Otalgia of both ears- Primary Otalgia, unspecified Flu Influenza with other respiratory manifestations [facility] Diagnosis SI (sacroiliac) joint dysfunction- Primary Disorders of sacrum Lumbar degenerative disc disease Degeneration of lumbar or lumbosacral intervertebral disc Spinal stenosis of lumbar region, unspecified whether neurogenic claudication present [facility] Diagnosis Tinnitus of right ear- Primary Unspecified tinnitus Right ear pain Otalgia, unspecified Neoplasm of uncertain behavior of skin of back Neoplasm of uncertain behavior of skin [facility] Diagnosis SI (sacroiliac) joint dysfunction- Primary Disorders of sacrum SI (sacroiliac) joint dysfunction Disorders of sacrum [facility] Diagnosis Post-surgical hypothyroidism- Primary Postsurgical hypothyroidism Hypertension, essential Unspecified essential hypertension Vitamin D deficiency Unspecified vitamin D deficiency Encounter for screening for diabetes mellitus Screening for diabetes mellitus SI (sacroiliac) joint dysfunction Disorders of sacrum [facility] Diagnosis Hypertension, essential- Primary Unspecified essential [...] Disorders of sacrum [facility] Diagnosis Exercise-induced asthma Exercise induced bronchospasm SOB (shortness of breath) Shortness of breath SI (sacroiliac) joint dysfunction Disorders of sacrum [facility] Diagnosis 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 Postsurgical [facility]othyroidism [facility] Pain in left lower leg- Primary Pain in left lower leg SI (sacroiliac) joint dysfunction Disorders of sacrum [facility] Diagnosis Pain in left lower leg SI (sacroiliac) joint dysfunction Disorders of sacrum [facility]* Diagnosis Spinal stenosis of lumbar region, unspecified whether neurogenic claudication present- Primary Radiculopathy, lumbar region Thoracic or lumbosacral neuritis or radiculitis, unspecified SI (sacroiliac) joint dysfunction Disorders of sacrum [facility]* Diagnosis Spinal stenosis of lumbar region, unspecified whether neurogenic claudication present- Primary SI (sacroiliac) joint dysfunction Disorders of sacrum Radiculopathy, lumbar region Thoracic or lumbosacral neuritis or radiculitis, unspecified [facility]* Diagnosis Neoplasm of uncertain behavior of skin of back- Primary Neoplasm of uncertain behavior of skin Dermatofibroma Benign neoplasm of skin, site unspecified [facility]* Diagnosis Dermatofibroma- Primary Benign neoplasm of skin, site unspecified [facility]* Diagnosis Preoperative examination- Primary Preoperative examination, [...] lumbosacral intervertebral disc [facility]* Diagnosis Preoperative examination- Primary Preoperative examination, [...] injury, initial encounter [facility] this [facility]* Diagnosis Preoperative examination- Primary Preoperative examination, [...] of unspecified site [facility] Diagnosis Preoperative examination- Primary Preoperative examination, [...] related to employment [facility] Diagnosis Preoperative examination- Primary Preoperative examination, [...] discogenic back pain documented in this encounter [facility] note* Diagnosis Preoperative examination- Primary Preoperative examination, [...] Disorders of sacrum [facility] Diagnosis Preoperative examination- Primary Preoperative examination, [...] Disorders of sacrum [facility] Diagnosis Preoperative examination- Primary Preoperative examination, [...] Disorders of sacrum [facility] Diagnosis Preoperative examination- Primary Preoperative examination, [...] Disorders of sacrum [facility] Diagnosis Preoperative examination- Primary Preoperative examination, [...] Disorders of sacrum [facility] Diagnosis Preoperative examination- Primary Preoperative examination, [...] discogenic back pain [facility] Diagnosis Preoperative examination- Primary Preoperative examination, [...] Mixed headache Headache [facility] Diagnosis Preoperative examination- Primary Preoperative [...] Unspecified sinusitis (chronic) [facility] Diagnosis Preoperative examination- Primary Preoperative examination, [...] discogenic back pain [facility] Diagnosis Preoperative examination- Primary Preoperative examination, [...] Disorders of sacrum [facility] Diagnosis Preoperative examination- Primary Preoperative examination, [...] Disorders of sacrum [facility] Diagnosis Preoperative examination- Primary Preoperative examination, [...] Disorders of sacrum [facility] Diagnosis Preoperative examination- Primary Preoperative examination, [...] Unspecified pleural effusion [facility] Diagnosis Preoperative examination- Primary Preoperative examination, [...] Unspecified pleural effusion [facility] Diagnosis Preoperative examination- Primary Preoperative examination, [...] by physician- Primary [facility] Diagnosis Preoperative examination- Primary Preoperative examination, [...] Proteinuria, unspecified type [facility] Diagnosis Preoperative examination- Primary Preoperative examination, [...] Calculus of kidney [facility] Diagnosis Preoperative examination- Primary Preoperative examination, [...] Calculus of kidney [facility] Diagnosis Preoperative examination- Primary Preoperative examination, [...] pain, unspecified site [facility] Diagnosis Preoperative examination- Primary Preoperative examination, [...] Hematuria, unspecified type [facility] Diagnosis Preoperative examination- Primary Preoperative examination, [...] Disorders of sacrum [facility] Diagnosis Preoperative examination- Primary Preoperative examination, [...] urine Bilateral nephrolithiasis [facility] Diagnosis Preoperative examination- Primary Preoperative examination, [...] disorder Bilateral nephrolithiasis [facility]* Diagnosis Preoperative examination- Primary Preoperative examination, [...] pain, unspecified site [facility]* Diagnosis Encounter for follow-up- Primary 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 Sialoadenitis documented in this [facility] Diagnosis Preoperative examination- Primary Preoperative examination, [...] current) unspecified Anxiety, generalized Generalized anxiety disorder Hyperglycemia- Primary Other abnormal glucose [facility] this encounter [facility] Diagnosis Preoperative examination- Primary Preoperative examination, [...] of lumbar region with discogenic back pain Degeneration of intervertebral disc of lumbar region with discogenic back pain and lower extremity pain SI (sacroiliac) joint dysfunction Disorders of sacrum documented in this encounter [facility] note* Diagnosis Preoperative examination- Primary Preoperative examination, [...] Disorders of sacrum documented in this encounter [facility] note* Diagnosis Preoperative examination- Primary Preoperative examination, [...] current) unspecified Anxiety, generalized Generalized anxiety disorder Hypertension, essential- Primary Unspecified essential hypertension Elevated hemoglobin A1c Other abnormal blood chemistry Bipolar 1 disorder (HCC) Bipolar I disorder, most recent episode (or current) unspecified Primary thyroid papillary carcinoma (HCC) Malignant neoplasm of thyroid gland 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 Exercise-induced asthma (HCC) Exercise induced bronchospasm SI (sacroiliac) joint dysfunction Disorders of sacrum [facility] Preoperative examination- Primary Preoperative [...] Anxiety, generalized Generalized anxiety disorder Bilateral nephrolithiasis SI (sacroiliac) joint dysfunction Disorders of sacrum [facility] Consultation (Routine) - New Request Specialty Diagnoses / Procedures Referred By Contac t Referred To Contact Otolaryngology Diagnoses Sialoadenitis of submandibular gland Caitlyn Rivera MD [address] [place] [address] Osvaldo Tapia MD [address] Floor [place] [id number] Referral ID Status Reason Start Date Expiration Date V isits Requested Visits Authorized [id number] New Request 03/18/2022 04/12/2023 1 1 * Radiology (Routine) - New Request Specialty Diagnoses / Procedures Referred By Contbrock t Referred To Contact Diagnoses Papillary thyroid carcinoma Procedures [facility] Caitlyn Rivera MD [address] [place] [address] Referral ID Status Reason Start Date Expiration Date V isits Requested Visits Authorized [id number] New Request 03/18/2022 04/12/[address] [facility] Outpatient Procedure (Routine) - Authorized Specialty Diagnoses / Procedures Referred By Kin t Referred To Contact [facility] Diagnoses Exercise-induced asthma SOB (shortness of breath) Procedures SPIROMETRY - BASELINE AND POST DILATOR BRNCDILAT RSPSE SPMTRY PRE&POST-BRNCDILAT ADMN Nagi Red MD [address] [place] [address] [facility] [place] [address] [place] [address] Referral ID Status Reason Start Date Expiration Date Visits Requested Visits Authorized [id number] Authorized Auto-Generat ed Referral 04/25/2024 05/25/2025 1 1 * Consult, Test, Treat (Routine) - Authorized Specialty Diagnoses / Procedures Referred By Kin samuel Referred To Contact Urology Diagnoses Renal stones Procedures CONSULT TO UROLOGY OFFICE/OUTPATIENT [facility] 60 MINUTES Nagi Red MD [address] [place] [address] Referral ID Status Reason Start Date Expiration Date Visits Requested Visits Authorized [id number] Authorized PCP Requested Referral 04/25/2024 04/25/2025 1 1 * Consult, Test, Treat (Routine) - Authorized Specialty Diagnoses / Procedures Referred By Kin t Referred To Contact Diagnoses Encounter for gynecological examination Procedures CONSULT TO RELIEF PHARMACIST OFFICE/OUTPATIENT [facility] 60 MINUTES Nagi Red MD [address] [place] [address] Referral ID Status Reason Start Date Expiration Date Visits Requested Visits Authorized [id number] Authorized PCP Requested Referral Auto-Generate d Referral 04/25/2024 04/25/2025 1 1 [facility] for referral (narrative)* Diagnostic Procedure Only (Urgent) - Closed Specialty Diagnoses / Procedures Referred By Contac t Referred To Contact US IMAGING Diagnoses Pain in left lower leg Procedures US DVT LOWER LEFT DUP-SCAN XTR VEINS UNILATERAL/LIMITED STUDY PodlogarSakshi APRN.SHELF DRIER OPERATOR [address] [place] [address] [place] [address] Referral ID Status Reason Start Date Expiration Date V isits Requested Visits Authorized [id number] Closed Auto-Generate d Referral 05/12/2024 06/11/2025 1 1 [facility] for referral (narrative)* Diagnostic Procedure Only (Urgent) - Closed Specialty Diagnoses / Procedures Referred By Contac t Referred To Contact US IMAGING Diagnoses Pain in left lower leg Procedures US DVT LOWER LEFT DUP-SCAN XTR VEINS UNILATERAL/LIMITED STUDY YasmeenlogSakshi lan APRN.SHELF DRIER OPERATOR [address] [place] [address] [place] [address] Referral ID Status Reason Start Date Expiration Date V isits Requested Visits Authorized [id number] Closed Auto-Generate d Referral 05/12/2024 06/11/2025 1 1 [facility] for referral (narrative)* Diagnostic Procedure Only (Routine) - Closed Specialty Diagnoses / Procedures Referred By Contac t Referred To Contact XR IMAGING Diagnoses Lumbar degenerative disc disease Procedures XR LUMBAR PARS DEFECT 4V AP/LAT/BOTH OBL RADEX SPINE LUMBOSACRAL MINIMUM 4 VIEWS Carlie Brownlee, CUSTOMER SUPPORT ANALYST.SHELF DRIER OPERATOR [address] [place] [address] [place] [address] Referral ID Status Reason Start Date Expiration Date V isits Requested Visits Authorized [id number] Closed Auto-Generate d Referral 03/01/2023 03/30/2024 1 1 [facility] for referral (narrative)* Diagnostic Procedure Only (Urgent) - Closed Specialty Diagnoses / Procedures Referred By Contac t Referred To Contact XR IMAGING Diagnoses Left ankle injury, initial encounter Procedures XR ANKLE GENERAL 3V AP/LAT/OBL LT X-RAY ANKLE MINIMUM 3 VIEWS Tori Michael PA-C [address] [place] [address] [place] [address] Referral ID Status Reason Start Date Expiration Date V isits Requested Visits Authorized [id number] Closed Auto-Generate d Referral 07/17/2021 08/16/2022 1 1 [facility] for visit Narrative* Diagnostic Procedure Only (Urgent) - Closed Specialty Diagnoses / Procedures Referred By Contac t Referred To Contact US IMAGING Diagnoses Pain in left lower leg Procedures US DVT LOWER LEFT DUP-SCAN XTR VEINS UNILATERAL/LIMITED STUDY PodlogSakshi lan CUSTOMER SUPPORT ANALYST.SHELF DRIER OPERATOR [address] [place] [address] [place] [address] Referral ID Status Reason Start Date Expiration Date V isits Requested Visits Authorized [id number] Closed Auto-Generate d Referral 05/12/2024 06/11/2025 1 1 [facility] for visit Narrative* Diagnostic Procedure Only (Routine) - Closed Specialty Diagnoses / Procedures Referred By Contac t Referred To Contact XR IMAGING Diagnoses Lumbar degenerative disc disease Procedures XR LUMBAR PARS DEFECT 4V AP/LAT/BOTH OBL RADEX SPINE LUMBOSACRAL MINIMUM 4 VIEWS Carlie Brownlee, CUSTOMER SUPPORT ANALYST.SHELF DRIER OPERATOR [address] [place] [address] [place] [address] Referral ID Status Reason Start Date Expiration Date V isits Requested Visits Authorized [id number] Closed Auto-Generate d Referral 03/01/2023 03/30/2024 1 1 [facility] for visit Narrative* Diagnostic Procedure Only (Urgent) - Closed Specialty Diagnoses / Procedures Referred By Contac t Referred To Contact XR IMAGING Diagnoses Left ankle injury, initial encounter Procedures XR ANKLE GENERAL 3V AP/LAT/OBL LT X-RAY ANKLE MINIMUM 3 VIEWS Tori Michael PA-C [address] [place] [address] [place] [address] Referral ID Status Reason Start Date Expiration Date V isits Requested Visits Authorized [id number] Closed Auto-Generate d Referral 07/17/2021 08/16/2022 1 1 [facility] MRI/CT (Urgent) - Pending Review Specialty Diagnoses / Procedures Referred By Kin t Referred To Contact CT IMAGING Diagnoses Bilateral nephrolithiasis Procedures CT FLANK WO IVCON CT ABD & PELVIS W/O CONTRAST Greta Templeton, [address] [place] [address] Phone: tel: fax: [place] [address] Referral ID Status Reason Start Date Expiration Date Visits Requested Visits Authorized [id number] Pending Review Auto-Generate d Referral Clearance Not Met -Financial Clearance Bypassed or Pt Declined to Pay 06/15/2025 07/15/2026 1 1 [facility] Summary Purpose Family History No Family History Records FoundNo Family History Records FoundNo Family History Records FoundNo Family History Records FoundNo Family History Records FoundNo Family History Records FoundNo Family History Records FoundNo Family History Records FoundNo Family History Records FoundNo Family History Records FoundNo Family History Records Found Advance Directives No Advanced Directives Records FoundDocuments on File Type Date Recorded Patient Fabric Cutter Expl anation Advance Directive(s) Advance Directive(s) 12/16/2021 [...] Documents on File Type Date Recorded Patient Fabric Cutter Expl anation Advance Directive(s) Advance Directive(s) 05/01/2022 [...] Documents on File Type Date Recorded Patient Fabric Cutter Expl anation Advance Directive(s) Advance Directive(s) 05/21/2022 [...] Documents on File Type Date Recorded Patient Fabric Cutter Expl anation Advance Directive(s) Advance Directive(s) 06/04/2022 [...] Documents on File Type Date Recorded Patient Fabric Cutter Expl anation Advance Directive(s) 07/27/2019 10:42 AM Documents on File Type Date Recorded Patient Fabric Cutter Expl anation Advance Directive(s) 07/27/2019 10:42 AM Latest Code Status on File Code Status Date Activated Date Inactivated Comments Full Code 06/05/2022 8:03 AM Date Activated Date Inactivated Comments 06/05/2022 8:03 AM Date Activated Date Inactivated Comments 06/05/2022 8:03 AM Reason for Referral Specialty Diagnoses / Procedures Referred By Kin samuel Referred To Contact Diagnoses Sialadenitis Procedures MRI SIALOGRAM ME MRI, FACE, NECK, COMBO Karen Land, CUSTOMER SUPPORT ANALYST-SHELF DRIER OPERATOR [address] [place] [address] Referral ID Status Reason Start Date Expiration Date Visits Requested Visits Authorized [id number] Authorized - Bimal 03/26/2022 04/20/2023 1 1 Referral ID Status Reason Start Date Expiration Date Visits Re quested Visits Authorized [id number] Closed 03/26/2022 04/20/2023 1 1 Specialty Diagnoses / Procedures Referred By Contac t Referred To Contact Christine Dean PA-C [address] [place] [address] Referral ID Status Reason Start Date Expiration Date Visits Re quested Visits Authorized [id number] Closed 1 1 Specialty Diagnoses / Procedures Referred By Contac t Referred To Contact Diagnoses Papillary thyroid carcinoma Procedures [facility] Caitlyn Rivera MD [address] [place] [address] Referral ID Status Reason Start Date Expiration Date V isits Requested Visits Authorized [id number] New Request 09/16/2022 10/11/2023 1 1 Specialty Diagnoses / Procedures Referred By Contac t Referred To Contact Gastroenterology Diagnoses Bloating Procedures CONSULT TO GASTROENTEROLOGY OFFICE/OUTPATIENT NEW HIGH MDM 60-74 MINUTES Christine Dean PA-C [address] [place] [address] Referral ID Status Reason Start Date Expiration Date Visits Requested Visits Authorized [id number] Authorized PCP Requested Referral 2 10/12/2023 1 1 Specialty Diagnoses / Procedures Referred By Contac t Referred To Contact CT IMAGING Diagnoses Adverse effect of treatment, initial encounter Procedures CTA CHEST (NONGATED) W IVCON CT ANGIOGRAPHY CHEST W/CONTRAST/NONCONTRAST Renard Almodovar, KIMBERLEY.SHELF DRIER OPERATOR [address] [place] [address] Ct Imaging Referral ID Status Reason Start Date Expiration Date Visits Requested Visits Authorized [id number] Waiting for Online Response Auto-Genera ciro Referral Patient Cleared - Admin/Chair man/Directo r advise to proceed 04/27/2023 05/26/2024 1 1 Specialty Diagnoses / Procedures Referred By Contac t Referred To Contact CT IMAGING Diagnoses Adverse effect of treatment, initial encounter Procedures CTA NECK W IVCON CT ANGIOGRAPHY NECK W/CONTRAST/NONCONTRAST Renard Almodovar APRN.SHELF DRIER OPERATOR [address] [place] [address] Ct Imaging Referral ID Status Reason Start Date Expiration Date Visits Requested Visits Authorized [id number] Additional Clinical Info Needed Auto-Genera ciro Referral Patient Cleared - Admin/Chair man/Directo r advise to proceed 04/27/2023 05/26/2024 1 1 Specialty Diagnoses / Procedures Referred By Contac t Referred To Contact CT IMAGING Diagnoses Adverse effect of treatment, initial encounter Procedures CTA NECK W IVCON CT ANGIOGRAPHY NECK W/CONTRAST/NONCONTRAST Renard Almodovar, CUSTOMER SUPPORT ANALYST.SHELF DRIER OPERATOR [address] [place] [address] [place] [address] Referral ID Status Reason Start Date Expiration Date V isits Requested Visits Authorized [id number] Denied Auto-Generat ed Referral Patient Cleared - Admin/Chairm an/Director advise to proceed or did not respond 04/27/2023 06/26/2023 1 0 Specialty Diagnoses / Procedures Referred By Contac t Referred To Contact Ent - Otolaryngology Diagnoses Tinnitus of right ear Right ear pain Procedures CONSULT TO ENT OFFICE/OUTPATIENT [facility] 60 MINUTES Nagi Red MD [address] [place] [address] Referral ID Status Reason Start Date Expiration Date Visits Requested Visits Authorized [id number] Authorized PCP Requested Referral 03/25/2024 03/25/2025 1 1 Referral ID Status Reason Start Date Expiration Date V isits Requested Visits Authorized [id number] New Request 05/01/2024 05/26/2025 1 1 Specialty Diagnoses / Procedures Referred By Contac t Referred To Contact MR IMAGING Diagnoses Spinal stenosis of lumbar region, unspecified whether neurogenic claudication present Radiculopathy, lumbar region Spinal stenosis of lumbar region with neurogenic claudication Procedures MRI LUMBAR SPINE WO IVCON MRI SPINAL CANAL LUMBAR W/O CONTRAST MATERIAL Carlie Brownlee, CUSTOMER SUPPORT ANALYST.SHELF DRIER OPERATOR [address] [place] [address] [place] [address] Referral ID Status Reason Start Date Expiration Date Visits Requested Visits Authorized [id number] Pending Review Auto-Generat ed Referral 05/16/2024 06/14/2025 1 1 Specialty Diagnoses / Procedures Referred By Contac t Referred To Contact MR IMAGING Diagnoses Migraine without aura and without status migrainosus, not intractable Procedures MRI BRAIN WO IVCON MRI BRAIN BRAIN STEM W/O CONTRAST MATERIAL Renard Almodovar, CUSTOMER SUPPORT ANALYST.SHELF DRIER OPERATOR [address] [place] [address] [place] [address] Referral ID Status Reason Start Date Expiration Date Visits Requested Visits Authorized [id number] Authorized Auto-Generat ed Referral 12/15/2024 01/14/2026 1 [...] section and content) DATE CREATED AUTHOR 01/25/2020 [facility] DATE CREATED AUTHOR AUTHOR'S ORGANIZ ATION [facility]01/2020 [facility] DATE CREATED AUTHOR AUTHOR'S ORGANIZ ATION 02/09/2021 [facility] DATE CREATED AUTHOR AUTHOR'S ORGANIZ ATION 10/31/2022 [facility] DATE CREATED AUTHOR AUTHOR'S ORGANIZ ATION 03/18/2025 [facility] DATE CREATED AUTHOR AUTHOR'S ORGANIZ ATION 06/11/2025 [facility] DATE CREATED AUTHOR AUTHOR'S ORGANIZ ATION 07/04/2025 [facility] DATE CREATED AUTHOR AUTHOR'S ORGANIZ ATION 08/14/2025 [facility] DATE CREATED AUTHOR AUTHOR'S ORGANIZ ATION 08/17/2025 [facility] DATE CREATED AUTHOR AUTHOR'S ORGANIZ ATION 09/28/2025 [facility] DATE CREATED AUTHOR AUTHOR'S ORGANIZ ATION 09/30/2025 [facility] Reason for Visit (unrecogniz ed section and content) Reason Comments Follow-up Here for MARIO ribeiroati on. Reason Comments Bloody Stool Specialty Diagnoses / Procedures Referred By Kin t Referred To Contact [facility] Diagnoses Bloody stool Procedures CAPSULE ENDOSCOPY SMALL BOWEL GI TRC IMG INTRALUMINAL ESOPHAGUS-ILEUM W/I&R Susanne Potts, CUSTOMER SUPPORT ANALYST.SHELF DRIER OPERATOR [address] [place] [address] [facility] [place] [address] [place] [address] Referral ID Status Reason Start Date Expiration Date V isits Requested Visits Authorized [id number] Closed Auto-Generate d Referral 12/28/2021 12/28/2022 1 [...] of submandibular gland Caitlyn Rivera MD [address] [address] Osvaldo Tapia MD [address] [place] [address] Referral ID Status Reason Start Date Expiration Date V isits Requested Visits Authorized [id number] New Request 03/18/2022 04/12/2023 1 1 Reason Comments Pain Reason Comments Appointment Reschedule Injection Specialty Diagnoses / Procedures Referred By Kin t Referred To Contact Diagnoses Sialadenitis Procedures MRI SIALOGRAM ME MRI, FACE, NECK, TAJO Karen Land, CUSTOMER SUPPORT ANALYST-SHELF DRIER OPERATOR [address] [place] [address] Referral ID Status Reason Start Date Expiration Date Visits Re quested Visits Authorized [id number] Closed 03/26/2022 04/20/2023 1 1 Reason Comments [...] Comments ER F/U [facility] Reason Comments Outside [id number] Ordered Reason Comments Consult GI Specialty Diagnoses / Procedures Referred By [facility] Referred To Contact Diagnoses SI (sacroiliac) joint dysfunction Sacroiliitis, not elsewhere classified (HCC) Procedures INJECT SI JOINT ARTHRGRPHY&/ANES/STEROID W/JAYCE INJECTION SACROILIAC JOINT, ARTHROGRAPHY AND/OR ANESTHETIC/STEROID [facility] [address] [place] [address] Referral ID Status Reason Start Date Expiration Date Visits Re quested Visits Authorized [id number] 1 1 Reason Comments F/U 6 months Specialty Diagnoses / Procedures Referred By [facility] t Referred To Contact Diagnoses SI (sacroiliac) joint dysfunction Sacroiliitis, not elsewhere classified (HCC) Procedures DSTRJ NEUROLYTIC AGENT OTHER PERIPHERAL NERVE RADIOFREQUENCY ABLATION NERVE SPINAL [facility] [address] [place] [address] Referral ID Status Reason Start Date Expiration Date Visits Re quested Visits Authorized [id number] 1 1 Reason Comments ER FU apt Reason Comments Edema Hands, feet, face Reason Comments Injection Followup Refill Request Pain Reason Comments Refill Request Pain Injection Followup Reason Comments Radiology CT Specialty Diagnoses / Procedures Referred By [facility] Referred To Contact CT IMAGING Diagnoses Adverse effect of treatment, initial encounter Procedures CTA NECK W IVCON CT ANGIOGRAPHY NECK W/CONTRAST/NONCONTRAST Renard Almodovar, CUSTOMER SUPPORT ANALYST.SHELF DRIER OPERATOR [address] [place] [address] [place] [address] Referral ID Status Reason Start Date Expiration Date V isits Requested Visits Authorized [id number] Denied Auto-Generat ed Referral Patient Cleared - [...] Spirometry Specialty Diagnoses / Procedures Referred By Contac t Referred To Contact [facility] Diagnoses Exercise-induced asthma SOB (shortness of breath) Procedures SPIROMETRY - BASELINE AND POST DILATOR BRNCDILAT RSPSE SPMTRY PRE&POST-BRNCDILAT ADMN Nagi Red MD [address] [place] [address] [facility] [place] [address] [place] [address] Referral ID Status Reason Start Date Expiration Date V isits Requested Visits Authorized [id number] Closed Auto-Generate d Referral 04/25/2024 05/25/2025 1 [...] TIME W/IMAGE COMPLETE Nagi Red MD [address] [place] [address] Phone: tel: fax: [place] [address] Referral ID Status Reason Start Date Expiration Date V isits Requested Visits Authorized [id number] Closed Auto-Generate d Referral 05/17/2025 06/16/2026 1 1 Reason Comments Kidney Stones Specialty Diagnoses / Procedures Referred By Contac t Referred To Contact Urology Diagnoses Kidney stones Right flank pain Procedures CONSULT TO UROLOGY OFFICE/OUTPATIENT [facility] 60 MINUTES Nagi Red MD [address] [place] [address] Phone: tel: fax: Referral ID Status Reason Start Date Expiration Date V isits Requested Visits Authorized [id number] Closed PCP Requested Referral 05/23/2025 05/23/2026 1 1 Reason Comments Medication Problem Reason Comments Follow Up Patient state that s he is having right side flank pain that wraps around to the front . She states that the pain comes and goes all the time and is desperate to get it out. Denies any urinary symptoms at this time. Reason Comments Labs Only Reason Comments Follow-up Gastroparesis, afrai d she is not keeping LT4 down and that's why high TSH Reason Comments Follow Up HTN and Glucose Specialty Diagnoses / Procedures Referred By Contac t Referred To Contact US IMAGING Diagnoses Bilateral nephrolithiasis Procedures US KIDNEY/BLADDER US RETROPERITONEAL REAL TIME W/IMAGE COMPLETE Greta Templeton, DO [address] [place] [address] Phone: tel: fax: [place] [address] Referral ID Status Reason Start Date Expiration Date V isits Requested Visits Authorized [id number] Closed Auto-Generate d Referral 08/06/2025 07/29/2026 1 1 Care Teams (unrecognized sec tion and content) Telephone Messenger Relationship Specialty Start Date End Date Nagi Red MD [address] [place] [address] PCP - General Family Medicine 10/16/20 Telephone Messenger Relationship Specialty Start Date End Date Nagi Red MD [address] [place] [address], [place] [address] Family Practice 03/29/14 Telephone Messenger Relationship Specialty Start Date End Date Nagi Red MD [address] [place] [address], [place] [address] Family Practice 03/29/14 Telephone Messenger Relationship Specialty Start Date End Date Nagi Red MD [address] [place] [address] , [place] [address] PCP - General Family Medicine 10/16/20 Telephone Messenger Relationship Specialty Start Date End Date Nagi Red MD [address] [place] [address] , [place] [address] PCP - General Family Medicine 10/16/20 Telephone Messenger Relationship Specialty Start Date End Date Nagi Red MD [address] [place] [address], [place] [address] Family Practice 03/29/14 Telephone Messenger Relationship Specialty Start Date End Date Nagi Red MD [address] [place] [address], [place] [address] Family Practice 03/29/14 Telephone Messenger Relationship Specialty Start Date End Date Nagi Red MD [address] [place] [address] , [place] [address] PCP - General Family Medicine 10/16/20 Telephone Messenger Relationship Specialty Start Date End Date Nagi Red MD [address] [place] [address] , [place] [address] PCP - General Family Medicine 10/16/20 Telephone Messenger Relationship Specialty Start Date End Date Nagi Red MD [address] [place] [address], [place] [address] Family Practice 03/29/14 Telephone Messenger Relationship Specialty Start Date End Date Nagi Red MD [address] [place] [address], [place] [address] Family Practice 03/29/14 Telephone Messenger Relationship Specialty Start Date End Date Nagi Red MD [address] [place] [address] PCP - General Family Practice 07/06/22 Nagi Red MD [address] [place] [address], [place] [address] Family Practice 03/29/14 Telephone Messenger Relationship Specialty Start Date End Date Nagi Red MD [address] [place] [address], [place] [address] PCP - General Family Practice 07/06/22 Nagi Red MD [address] [place] [address] [place] [address] Family Practice 03/29/14 Telephone Messenger Relationship Specialty Start Date End Date Nagi Red MD [address] [place] [address] PCP - General Family Medicine 10/16/20 Telephone Messenger Relationship Specialty Start Date End Date Nagi Red MD [address] [place] [address], [place] [address] PCP - General Family Medicine 07/06/22 Nagi Red MD [address] [place] [address], [place] [address] Family Medicine 03/29/14 Telephone Messenger Relationship Specialty Start Date End Date Nagi Red MD [address] [place] [address], [place] [address] PCP - General Family Medicine 07/06/22 Nagi Red MD [address] [place] [address], [place] [address] Family Medicine 03/29/14 Telephone Messenger Relationship Specialty Start Date End Date Nagi Red MD [address] [place] [address] PCP - General Family Medicine 07/06/22 Nagi Red MD [address] [place] [address], [place] [address] Family Medicine 03/29/14 Telephone Messenger Relationship Specialty Start Date End Date Nagi Red MD [address] [place] [address], [place] [address] PCP - General Family Medicine 07/06/22 Nagi Red MD [address] [place] [address], [place] [address] Family Medicine 03/29/14 Telephone Messenger Relationship Specialty Start Date End Date Nagi Red MD [address] [place] [address], [place] [address] PCP - General Family Medicine 07/06/22 Nagi Red MD [address] [place] [address], [place] [address] Family Medicine 03/29/14 Telephone Messenger Relationship Specialty Start Date End Date Nagi Red MD [address] [place] [address], [place] [address] PCP - General Family Medicine 07/06/22 Nagi Red MD [address] [place] [address], [place] [address] Family Medicine 03/29/14 Telephone Messenger Relationship Specialty Start Date End Date Nagi Red MD [address] [place] [address], [place] [address] PCP - General Family Medicine 07/06/22 Nagi eRd MD [address] [place] [address], [place] [address] Family Medicine 03/29/14 Telephone Messenger Relationship Specialty Start Date End Date Nagi Red MD [address] [place] [address] PCP - General Family Medicine 07/06/22 Nagi Red MD [address] [place] [address], [place] [address] Family Medicine 03/29/14 Telephone Messenger Relationship Specialty Start Date End Date Nagi Red MD [address] [place] [address], [place] [address] PCP - General Family Medicine 07/06/22 Nagi Red MD [address] [place] [address], [place] [address] Family Medicine 03/29/14 Telephone Messenger Relationship Specialty Start Date End Date Nagi Red MD [address] [place] [address], [place] [address] PCP - General Family Medicine 07/06/22 Nagi Red MD [address] [place] [address], [place] [address] Family Medicine 03/29/14 Telephone Messenger Relationship Specialty Start Date End Date Nagi Red MD [address] [place] [address], [place] [address] PCP - General Family Medicine 07/06/22 Nagi Red MD [address] [place] [address], [place] [address] Family Medicine 03/29/14 Telephone Messenger Relationship Specialty Start Date End Date Nagi Red MD [address] [place] [address], [place] [address] PCP - General Family Medicine 07/06/22 Nagi Red MD [address] [place] [address], [place] [address] Family Medicine 03/29/14 Telephone Messenger Relationship Specialty Start Date End Date Nagi Red MD [address] [place] [address] PCP - General Family Medicine 07/06/22 Nagi Red MD [address] [place] [address] Family Medicine 03/29/14 Telephone Messenger Relationship Specialty Start Date End Date Nagi Red MD [address] [place] [address] PCP - General Family Medicine 07/06/22 Nagi Red MD [address] [place] [address] Family Medicine 03/29/14 Telephone Messenger Relationship Specialty Start Date End Date Nagi Red MD [address] [place] [address] PCP - General Family Medicine 07/06/22 Nagi Red MD [address] [place] [address] Family Medicine 03/29/14 Telephone Messenger Relationship Specialty Start Date End Date Nagi Red MD [address] [place] [address] PCP - General Family Medicine 07/06/22 Nagi Red MD [address] [place] [address] Family Medicine 03/29/14 Telephone Messenger Relationship Specialty Start Date End Date Nagi Red MD [address] [facility] [place] [address] PCP - General Family Medicine 07/06/22 Nagi Red MD [address] [facility] [place] [address] Family Medicine 03/29/14 Telephone Messenger Relationship Specialty Start Date End Date Nagi Red MD [address] [place] [address] PCP - General Family Medicine 07/06/22 Nagi Red MD [address] [place] [address] Family Medicine 03/29/14 Telephone Messenger Relationship Specialty Start Date End Date Nagi Red MD [address] [place] [address] PCP - General Family Medicine 07/06/22 Nagi Red MD [address] [facility] [place] [address] Family Medicine 03/29/14 Telephone Messenger Relationship Specialty Start Date End Date Nagi Red MD [address] [place] [address] PCP - General Family Medicine 07/06/22 Nagi Red MD [address] [place] [address] Family Medicine 03/29/14 Telephone Messenger Relationship Specialty Start Date End Date Nagi Red MD [address] [place] [address] PCP - General Family Medicine 07/06/22 Nagi Red MD [address] [place] [address] Family Medicine 03/29/14 Telephone Messenger Relationship Specialty Start Date End Date Nagi Red MD [address] [place] [address] PCP - General Family Medicine 07/06/22 Nagi Red MD [address] [place] [address] Family Medicine 03/29/14 Telephone Messenger Relationship Specialty Start Date End Date Nagi Red MD [address] [place] [address] PCP - General Family Medicine 07/06/22 Nagi Red MD [address] [place] [address] Family Medicine 03/29/14 Telephone Messenger Relationship Specialty Start Date End Date Nagi Red MD [address] [place] [address] PCP - General Family Medicine 07/06/22 Nagi Red MD [address] [place] [address] Family Medicine 03/29/14 Telephone Messenger Relationship Specialty Start Date End Date Nagi Red MD [address] [place] [address] PCP - General Family Medicine 07/06/22 Nagi Red MD [address] [place] [address] Family Medicine 03/29/14 Telephone Messenger Relationship Specialty Start Date End Date Nagi Red MD [address] [place] [address] PCP - General Family Medicine 07/06/22 Nagi Red MD [address] [place] [address] Family Medicine 03/29/14 Telephone Messenger Relationship Specialty Start Date End Date Nagi Red MD [address] [place] [address] PCP - General Family Medicine 07/06/22 Nagi Red MD [address] [place] [address], [place] [address] Family Medicine 03/29/14 Telephone Messenger Relationship Specialty Start Date End Date Nagi Red MD [address] [place] [address] PCP - General Family Medicine 07/06/22 Nagi Red MD [address] [place] [address] Family Medicine 03/29/14 Telephone Messenger Relationship Specialty Start Date End Date Nagi Red MD [address] [facility] [place] [address] PCP - General Family Medicine 10/16/20 Telephone Messenger Relationship Specialty Start Date End Date Nagi Red MD [address] [place] [address] PCP - General Family Medicine 07/06/22 Nagi Red MD [address] [place] [address] Family Medicine 03/29/14 Telephone Messenger Relationship Specialty Start Date End Date Nagi Red MD [address] [place] [address] PCP - General Family Medicine 07/06/22 Nagi Red MD [address] [place] [address] Family Medicine 03/29/14 Telephone Messenger Relationship Specialty Start Date End Date Nagi Red MD [address] [place] [address] PCP - General Family Medicine 07/06/22 Nagi Red MD [address] [place] [address] Family Medicine 03/29/14 Telephone Messenger Relationship Specialty Start Date End Date Nagi Red MD [address] [place] [address] Family Medicine 03/29/14 Telephone Messenger Relationship Specialty Start Date End Date Nagi Red MD [address] [place] [address] PCP - General Family Medicine 07/06/22 Nagi Red MD [address] [place] [address] Family Medicine 03/29/14 Telephone Messenger Relationship Specialty Start Date End Date Nagi Red MD [address] [place] [address] PCP - General Family Medicine 07/06/22 Nagi Red MD [address] [facility] [place] [address] Family Medicine 03/29/14 Telephone Messenger Relationship Specialty Start Date End Date Nagi Red MD [address] [facility] [place] [address] PCP - General Family Medicine 07/06/22 Nagi Red MD [address] [facility] [place] [address] Family Medicine 03/29/14 Telephone Messenger Relationship Specialty Start Date End Date Nagi Red MD [address] [facility] [place] [address] PCP - General Family Medicine 07/06/22 Nagi Red MD [address] [facility] [place] [address] Family Medicine 03/29/14 Telephone Messenger Relationship Specialty Start Date End Date Nagi Red MD [address] [facility] [place] [address] PCP - General Family Medicine 07/06/22 Nagi Red MD [address] [facility] [place] [address] Family Medicine 03/29/14 Telephone Messenger Relationship Specialty Start Date End Date Nagi Red MD [address] [place] [address] PCP - General Family Medicine 07/06/22 Nagi Red MD [address] [place] [address] Family Medicine 03/29/14 Telephone Messenger Relationship Specialty Start Date End Date Nagi Red MD [address] [place] [address] PCP - General Family Medicine 07/06/22 Nagi Red MD [address] [place] [address] Family Medicine 03/29/14 Telephone Messenger Relationship Specialty Start Date End Date Nagi Red MD [address] [place] [address] PCP - General Family Medicine 07/06/22 Nagi Red MD [address] [place] [address] Family Medicine 03/29/14 Telephone Messenger Relationship Specialty Start Date End Date Nagi Red MD [address] [place] [address] PCP - General Family Medicine 07/06/22 Nagi Red MD [address] [place] [address] Family Medicine 03/29/14 Telephone Messenger Relationship Specialty Start Date End Date Nagi Red MD [address] [place] [address] PCP - General Family Medicine 07/06/22 Nagi Red MD [address] [place] [address] Family Medicine 03/29/14 Renard Almodovar APRN.SHELF DRIER OPERATOR [address] [facility] [place] [address] Professional Sports Scout Family Medicine 10/28/24 Christine Dean PA-C [address] [place] [address] Professional Sports Scout Family [facility] 10/28/24 Telephone Messenger Relationship Specialty Start Date End Date Nagi Red MD [address] [place] [address] PCP - General Family Medicine 07/06/22 Nagi Red MD [facility] [place] [address] Family Medicine 03/29/14 Renard Almodovar APRN.SHELF DRIER OPERATOR [address] [facility] [place] [address] Professional Sports Scout Family [facility] 10/28/24 Christine Dean PA-C [address] [place] [address] Professional Sports Scout Family [facility] 10/28/24 Telephone Messenger Relationship Specialty Start Date End Date Nagi Red MD [address] [place] [address] PCP - General Family Medicine 07/06/22 Nagi Red MD [address] [place] [address] Family Medicine 03/29/14 Renard Almodovar, KIMBERLEY.SHELF DRIER OPERATOR [address] [facility] [place] [address] Professional Sports Scout Family [facility] 10/28/24 Christine Dean PA-C [address] [place] [address] Professional Sports Scout Family [facility] 10/28/24 Telephone Messenger Relationship Specialty Start Date End Date Nagi Red MD [address] [place] [address] PCP - General Family Medicine 07/06/22 Nagi Red MD [address] [place] [address] Family Medicine 03/29/14 Renard Almodovar, CUSTOMER SUPPORT ANALYST.SHELF DRIER OPERATOR [address] [facility] [place] [address] Professional Sports Scout Family [facility] 10/28/24 Christine Dean PA-C [address] [place] [address] Professional Sports Scout Family [facility] 10/28/24 Telephone Messenger Relationship Specialty Start Date End Date Nagi Red MD [address] [place] [address] PCP - General Family Medicine 07/06/22 Nagi Red MD [address] [place] [address] Family Medicine 03/29/14 Renard Almodovar, CUSTOMER SUPPORT ANALYST.SHELF DRIER OPERATOR [address] [place] [address] Professional [employer] Scout Family Medicine 10/28/24 Christine Dean PA-C [address] [place] [address] Professional Sports Scout Family [facility] 10/28/24 Telephone Messenger Relationship Specialty Start Date End Date Nagi Red MD [address] [place] [address] PCP - General Family Medicine 07/06/22 Nagi Red MD [address] [place] [address] Family Medicine 03/29/14 Renard Almodovar, KIMBERLEY.SHELF DRIER OPERATOR [address] [place] [address] Professional [employer] Scout Family Medicine 10/28/24 Christine Dean PA-C [address] [place] [address] Professional Sports Scout Family [facility] 10/28/24 Telephone Messenger Relationship Specialty Start Date End Date Nagi Red MD [address] [place] [address] PCP - General Family Medicine 07/06/22 Nagi Red MD [address] [place] [address] Family Medicine 03/29/14 Renard Almodovar, KIMBERLEY.SHELF DRIER OPERATOR [address] [place] [address] Professional Sports Scout Family Medicine 10/28/24 Christine Dean PA-C [address] [place] [address] Professional Sports Scout Family [facility] 10/28/24 Telephone Messenger Relationship Specialty Start Date End Date Nagi Red MD [address] [place] [address] PCP - General Family Medicine 07/06/22 Nagi Red MD [address] [place] [address] Family Medicine 03/29/14 Renard Almodovar APRN.SHELF DRIER OPERATOR [address] [place] [address] Professional [employer] Scout Family Medicine 10/28/24 Christine Dean PA-C [address] [place] [address] Professional Sports Scout Family [facility] 10/28/24 Telephone Messenger Relationship Specialty Start Date End Date Nagi Red MD [address] [place] [address] PCP - General Family Medicine 07/06/22 Nagi Red MD [address] [place] [address] Family Medicine 03/29/14 Renard Almodovar APRN.SHELF DRIER OPERATOR [address] [place] [address] Professional Sports Scout Family [facility] 10/28/24 Christine Dean PA-C [address] [place] [address] Professional Sports Scout Family Medicine 10/28/24 Telephone Messenger Relationship Specialty Start Date End Date Nagi Red MD [address] [place] [address] PCP - General Family Medicine 07/06/22 Nagi Red MD [address] [place] [address] Family Medicine 03/29/14 Renard Almodovar, KIMBERLEY.SHELF DRIER OPERATOR [address] [place] [address] Professional Sports Scout Family Medicine 10/28/24 Christine Dean PA-C [address] [place] [address] Professional Sports Scout Family [facility] 10/28/24 Telephone Messenger Relationship Specialty Start Date End Date Nagi Red MD [address] [place] [address] PCP - General Family Medicine 07/06/22 Nagi Red MD [address] [place] [address] Family Medicine 03/29/14 Renard Almodovar, CUSTOMER SUPPORT ANALYST.SHELF DRIER OPERATOR [address] [facility] [place] [address] Professional Sports Scout Family Medicine 10/28/24 Christine Dean PA-C [address] [place] [address] Professional Sports Scout Family Medicine 10/28/24 Telephone Messenger Relationship Specialty Start Date End Date Nagi Red MD [address] [facility] [place] [address] PCP - General Family Medicine 07/06/22 Nagi Red MD [address] [place] [address] Family Medicine 03/29/14 Renard Almodovar, KIMBERLEY.[facility] [address] [place] [address] Professional Sports Scout Family Medicine 10/28/24 Christine Dean PA-C [address] [place] [address] Professional Sports Scout [facility] 10/28/24 Telephone Messenger Relationship Specialty Start Date End Date Nagi Red MD [address] [place] [address] PCP - General Family Medicine 07/06/22 Nagi Red MD [address] [place] [address] Family Medicine 03/29/14 Christine Dean PA-C [address] [place] [address] Professional Sports Scout [facility] 10/28/24 Telephone Messenger Relationship Specialty Start Date End Date Nagi Red MD [address] [place] [address] PCP - General Family Medicine 07/06/22 Nagi Red MD [address] [place] [address] Family Medicine 03/29/14 Christine Dean PA-C [address] [place] [address] Professional Sports Scout Family Medicine 10/28/24 Telephone Messenger Relationship Specialty Start Date End Date Nagi Red MD [address] [place] [address] PCP - General Family Medicine 07/06/22 Nagi Red MD [address] [place] [address] Family Medicine 03/29/14 Renard Almodovar APRN.SHELF DRIER OPERATOR [address] [place] [address] Professional Sports Scout Family Medicine 04/23/25 Christine Dean PA-C [address] [place] [address] Professional Sports Scout Family Medicine 04/23/25 Telephone Messenger Relationship Specialty Start Date End Date Nagi Red MD [address] [place] [address] PCP - General Family Medicine 07/06/22 Nagi Red MD [address] [place] [address] Family Medicine 03/29/14 Renard Almodovar APRN.SHELF DRIER OPERATOR [address] [facility] [place] [address] Professional Sports Scout Family Medicine 04/23/25 Christine Dean PA-C [address] [place] [address] Professional Sports Scout Family Medicine 04/23/25 Telephone Messenger Relationship Specialty Start Date End Date Nagi Red MD [address] [place] [address] PCP - General Family Medicine 07/06/22 Nagi Red MD [address] [place] [address] Family Medicine 03/29/14 Renard Almodovar, CUSTOMER SUPPORT ANALYST.SHELF DRIER OPERATOR [address] [place] [address] Professional Sports Scout Family Medicine 04/23/25 Christine Dean PA-C [address] [place] [address] Professional Sports Scout Family Medicine 04/23/25 Telephone Messenger Relationship Specialty Start Date End Date Nagi Red MD [address] [place] [address] PCP - General Family Medicine 07/06/22 Nagi Red MD [address] [place] [address] Family Medicine 03/29/14 Renard Almodovar, CUSTOMER SUPPORT ANALYST.SHELF DRIER OPERATOR [address] [facility] [place] [address] Professional Sports Scout Family Medicine 04/23/25 Christine Dean PA-C [address] [place] [address] Professional Sports Scout Family Medicine 04/23/25 Telephone Messenger Relationship Specialty Start Date End Date Nagi Red MD [address] [place] [address] PCP - General Family Medicine 07/06/22 Nagi Red MD [address] [place] [address] Family Medicine 03/29/14 Renard Almodovar, KIMBERLEY.SHELF DRIER OPERATOR [address] [place] [address] Professional Sports Scout Family Medicine 04/23/25 Christine Dean PA-C [address] [place] [address] Professional Sports Scout Family Medicine 04/23/25 Telephone Messenger Relationship Specialty Start Date End Date Nagi Red MD [address] [place] [address] PCP - General Family Medicine 07/06/22 Nagi Red MD [address] [place] [address] Family Medicine 03/29/14 Renard Almodovar, CUSTOMER SUPPORT ANALYST.SHELF DRIER OPERATOR [address] [place] [address] Professional Sports Scout Family Medicine 04/23/25 Christine Dean PA-C [address] [place] [address] Professional Sports Scout Family Medicine 04/23/25 Telephone Messenger Relationship Specialty Start Date End Date Nagi Red MD [address] [place] [address] PCP - General Family Medicine 07/06/22 Nagi Red MD [address] [place] [address] Family Medicine 03/29/14 Renard Almodovar APRN.SHELF DRIER OPERATOR [address] [facility] [place] [address] Professional Sports Scout Family Medicine 04/23/25 Christine Dean PA-C [address] [place] [address] Professional Sports Scout Family Medicine 04/23/25 Telephone Messenger Relationship Specialty Start Date End Date Nagi Red MD [address] [place] [address] PCP - General Family Medicine 07/06/22 Nagi Red MD [address] [place] [address] Family Medicine 03/29/14 Renard Almodovar, KIMBERLEY.SHELF DRIER OPERATOR [address] [facility] [place] [address] Professional Sports Scout Family Medicine 04/23/25 Christine Dean PA-C [address] [place] [address] Professional Sports Scout Family Medicine 04/23/25 Telephone Messenger Relationship Specialty Start Date End Date Nagi Red MD [address] [place] [address] PCP - General Family Medicine 07/06/22 Nagi Red MD [address] [place] [address] Family Medicine 03/29/14 Renard Almodovar, KIMBERLEY.SHELF DRIER OPERATOR [address] [facility] [place] [address] Professional Sports Scout Family [facility] 04/23/25 Christine Dean PA-C [address] [place] [address] Professional Sports Scout [facility] 04/23/25 Telephone Messenger Relationship Specialty Start Date End Date Nagi Red MD [address] [place] [address] PCP - General Family Medicine 07/06/22 Nagi Red MD [address] [place] [address] Family Medicine 03/29/14 Renard Almodovar, CUSTOMER SUPPORT ANALYST.SHELF DRIER OPERATOR [address] [facility] [place] [address] Professional Sports Scout Family [facility] 04/23/25 Christine Dean PA-C [address] [place] [address] Professional Sports Scout Family [facility] 04/23/25 Telephone Messenger Relationship Specialty Start Date End Date Nagi Red MD [address] [place] [address] PCP - General Family Medicine 07/06/22 Nagi Red MD [address] [place] [address] Family Medicine 03/29/14 Renard Almodovar, CUSTOMER SUPPORT ANALYST.SHELF DRIER OPERATOR [address] [place] [address] Professional Sports Scout Family Medicine 04/23/25 Christine Dean PA-C [address] [place] [address] Professional Sports Scout Family Medicine 04/23/25 Telephone Messenger Relationship Specialty Start Date End Date Nagi Red MD [address] [place] [address] PCP - General Family Medicine 07/06/22 Nagi Red MD [address] [place] [address] Family Medicine 03/29/14 Renard Almodovar, KIMBERLEY.SHELF DRIER OPERATOR [address] [place] [address] Professional Sports Scout Family Medicine 04/23/25 Christine Dean PA-C [address] [place] [address] Professional Sports Scout Family Medicine 04/23/25 Telephone Messenger Relationship Specialty Start Date End Date Nagi Red MD [address] [place] [address] PCP - General Family Medicine 07/06/22 Nagi Red MD [address] [place] [address] Family Medicine 03/29/14 Renard Almodovar, KIMBERLEY.SHELF DRIER OPERATOR [address] [place] [address] Professional Sports Scout Family Medicine 04/23/25 Christine Dean PA-C [address] [place] [address] Professional Sports Scout Family Medicine 04/23/25 Telephone Messenger Relationship Specialty Start Date End Date Nagi Red MD [address] [place] [address] PCP - General Family Medicine 07/06/22 Nagi Red MD [address] [place] [address] Family Medicine 03/29/14 Renard Almodovar APRN.SHELF DRIER OPERATOR [address] [place] [address] Professional Sports Scout Family Medicine 04/23/25 Christine Dean PA-C [address] [place] [address] Professional Sports Scout Family Medicine 04/23/25 Telephone Messenger Relationship Specialty Start Date End Date Nagi Red MD [address] [place] [address] PCP - General Family Medicine 07/06/22 Nagi Red MD [address] [place] [address] Family Medicine 03/29/14 Renard Almodovar APRN.SHELF DRIER OPERATOR [address] [facility] [place] [address] Professional Sports Scout Family Medicine 04/23/25 Christine Dean PA-C [address] [place] [address] Professional Sports Scout Family Medicine 04/23/25 Telephone Messenger Relationship Specialty Start Date End Date Nagi Red MD [address] [place] [address] PCP - General Family Medicine 07/06/22 Nagi Red MD [address] [place] [address] Family Medicine 03/29/14 Renard Almodovar, CUSTOMER SUPPORT ANALYST.SHELF DRIER OPERATOR [address] [place] [address] Professional Sports Scout Family Medicine 04/23/25 Christine Dean PA-C [address] [place] [address] Professional Sports Scout Family Medicine 04/23/25 Telephone Messenger Relationship Specialty Start Date End Date Nagi Red MD [address] [place] [address] PCP - General Family Medicine 07/06/22 Nagi Red MD [address] [place] [address] Family Medicine 03/29/14 Renard Almodovar, CUSTOMER SUPPORT ANALYST.SHELF DRIER OPERATOR [address] [facility] [place] [address] Professional Sports Scout Family Medicine 04/23/25 Christine Dean PA-C [address] [place] [address] Professional Sports Scout Family Medicine 04/23/25 Telephone Messenger Relationship Specialty Start Date End Date Nagi Red MD [address] [place] [address] PCP - General Family Medicine 07/06/22 Nagi Red MD [address] [place] [address] Family Medicine 03/29/14 Renard Almodovar APRN.SHELF DRIER OPERATOR [address] [place], [place] [id number] [facility] 04/23/25 Christine Dean PA-C [address] [place] [id number] [facility] 04/23/25 Telephone Messenger Relationship Specialty Start Date End Date Nagi Red MD [address] [place] [id number] PCP - General Family Medicine 10/16/20 Telephone Messenger Relationship Specialty Start Date End Date Nagi Red MD [address] [place] [id number] PCP - General Family Medicine 10/16/20 Telephone Messenger Relationship Specialty Start Date End Date Nagi Red MD [address] [place] [address] PCP - General Family Medicine 07/06/22 Nagi Red MD [address] [place] [address] Family Medicine 03/29/14 Renard Almodovar, KIMBERLEY.SHELF DRIER OPERATOR [address] [place] [address] [facility] 04/23/25 Christine Dean PA-C [address] [place] [address] [employer] [facility] 04/23/25 Telephone Messenger Relationship Specialty Start Date End Date Nagi Red MD [address] [place] [address] PCP - General Family Medicine 07/06/22 Nagi Red MD [address] [place] [address] Family Medicine 03/29/14 Renard Almodovar APRN.SHELF DRIER OPERATOR [address] [place] [address] [facility] 04/23/25 Christine Dean PA-C [address] [place] [address] [facility] 04/23/25 Telephone Messenger Relationship Specialty Start Date End Date Nagi Red MD [address] [place] [address] PCP - General Family Medicine 07/06/22 Nagi Red MD [address] [place] [address] Family Medicine 03/29/14 Renard Almodovar APRN.SHELF DRIER OPERATOR [address] [facility] [place] [address] [employer] [facility] 04/23/25 Christine Dean PA-C [address] [place] [address] [employer] [facility] 04/23/25 Telephone Messenger Relationship Specialty Start Date End Date Nagi Red MD [address] [place] [address] PCP - General Family Medicine 07/06/22 Nagi Red MD [address] [place] [address] Family Medicine 03/29/14 Renard Almodovar APRN.SHELF DRIER OPERATOR [address] [place] [address] [facility] 04/23/25 Christine Dean PA-C [address] [place] [address] [facility] 04/23/25 Telephone Messenger Relationship Specialty Start Date End Date Nagi Red MD [address] [place] [address] PCP - General Family Medicine 07/06/22 Nagi Red MD [address] [place] [address] Family Medicine 03/29/14 Renard Almodovar, CUSTOMER SUPPORT ANALYST.SHELF DRIER OPERATOR [address] [place] [address] [facility] 04/23/25 Christine Dean PA-C [address] [place] [address] [facility] 04/23/25 Source Comments (unrecognize d section and content) In the event this informatio n is protected by the Federal Confidentiality of Alcohol and Drug Abuse Patient Records regulations: The Federal rules restrict any use of the information to criminally investigate or prosecute any alcohol or drug abuse patient.[facility]In the event this information is protected by the Federal Confidentiality of Alcohol and Drug Abuse Patient Records regulations: The Federal rules restrict any use of the information to criminally investigate or prosecute any alcohol or drug abuse patient.[facility] HospitalIn the event this information is protected by the Federal Confidentiality of Alcohol and Drug Abuse Patient Records regulations: The Federal rules restrict any use of the information to criminally investigate or prosecute any alcohol or drug abuse patient.[facility] HospitalIn the event this information is protected by the Federal Confidentiality of Alcohol and Drug Abuse Patient Records regulations: The Federal rules restrict any use of the information to criminally investigate or prosecute any alcohol or drug abuse patient.[facility] HospitalIn the event this information is protected by the Federal Confidentiality of Alcohol and Drug Abuse Patient Records regulations: The Federal rules restrict any use of the information to criminally investigate or prosecute any alcohol or drug abuse patient.[facility] HospitalIn the event this information is protected by the Federal Confidentiality of Alcohol and Drug Abuse Patient Records regulations: The Federal rules restrict any use of the information to criminally investigate or prosecute any alcohol or drug abuse patient.[facility] HospitalIn the event this information is protected by the Federal Confidentiality of Alcohol and Drug Abuse Patient Records regulations: The Federal rules restrict any use of the information to criminally investigate or prosecute any alcohol or drug abuse patient.[facility] HospitalIn the event this information is protected by the Federal Confidentiality of Alcohol and Drug Abuse Patient Records regulations: The Federal rules restrict any use of the information to criminally investigate or prosecute any alcohol or drug abuse patient.[facility] HospitalIn the event this information is protected by the Federal Confidentiality of Alcohol and Drug Abuse Patient Records regulations: The Federal rules restrict any use of the information to criminally investigate or prosecute any alcohol or drug abuse patient.[facility] HospitalIn the event this information is protected by the Federal Confidentiality of Alcohol and Drug Abuse Patient Records regulations: The Federal rules restrict any use of the information to criminally investigate or prosecute any alcohol or drug abuse patient.[facility] HospitalIn the event this information is protected by the Federal Confidentiality of Alcohol and Drug Abuse Patient Records regulations: The Federal rules restrict any use of the information to criminally investigate or prosecute any alcohol or drug abuse patient.[facility] HospitalIn the event this information is protected by the Federal Confidentiality of Alcohol and Drug Abuse Patient Records regulations: The Federal rules restrict any use of the information to criminally investigate or prosecute any alcohol or drug abuse patient.[facility] HospitalIn the event this information is protected by the Federal Confidentiality of Alcohol and Drug Abuse Patient Records regulations: The Federal rules restrict any use of the information to criminally investigate or prosecute any alcohol or drug abuse patient.[facility] HospitalIn the event this information is protected by the Federal Confidentiality of Alcohol and Drug Abuse Patient Records regulations: The Federal rules restrict any use of the information to criminally investigate or prosecute any alcohol or drug abuse patient.[facility] HospitalIn the event this information is protected by the Federal Confidentiality of Alcohol and Drug Abuse Patient Records regulations: The Federal rules restrict any use of the information to criminally investigate or prosecute any alcohol or drug abuse patient.[facility] HospitalIn the event this information is protected by the Federal Confidentiality of Alcohol and Drug Abuse Patient Records regulations: The Federal rules restrict any use of the information to criminally investigate or prosecute any alcohol or drug abuse patient.[facility] HospitalIn the event this information is protected by the Federal Confidentiality of Alcohol and Drug Abuse Patient Records regulations: The Federal rules restrict any use of the information to criminally investigate or prosecute any alcohol or drug abuse patient.[facility] HospitalIn the event this information is protected by the Federal Confidentiality of Alcohol and Drug Abuse Patient Records regulations: The Federal rules restrict any use of the information to criminally investigate or prosecute any alcohol or drug abuse patient.[facility] HospitalIn the event this information is protected by the Federal Confidentiality of Alcohol and Drug Abuse Patient Records regulations: The Federal rules restrict any use of the information to criminally investigate or prosecute any alcohol or drug abuse patient.[facility] HospitalIn the event this information is protected by the Federal Confidentiality of Alcohol and Drug Abuse Patient Records regulations: The Federal rules restrict any use of the information to criminally investigate or prosecute any alcohol or drug abuse patient.[facility] HospitalIn the event this information is protected by the Federal Confidentiality of Alcohol and Drug Abuse Patient Records regulations: The Federal rules restrict any use of the information to criminally investigate or prosecute any alcohol or drug abuse patient.[facility] HospitalIn the event this information is protected by the Federal Confidentiality of Alcohol and Drug Abuse Patient Records regulations: The Federal rules restrict any use of the information to criminally investigate or prosecute any alcohol or drug abuse patient.[facility] HospitalIn the event this information is protected by the Federal Confidentiality of Alcohol and Drug Abuse Patient Records regulations: The Federal rules restrict any use of the information to criminally investigate or prosecute any alcohol or drug abuse patient.[facility] HospitalIn the event this information is protected by the Federal Confidentiality of Alcohol and Drug Abuse Patient Records regulations: The Federal rules restrict any use of the information to criminally investigate or prosecute any alcohol or drug abuse patient.[facility] HospitalIn the event this information is protected by the Federal Confidentiality of Alcohol and Drug Abuse Patient Records regulations: The Federal rules restrict any use of the information to criminally investigate or prosecute any alcohol or drug abuse patient.[facility] HospitalIn the event this information is protected by the Federal Confidentiality of Alcohol and Drug Abuse Patient Records regulations: The Federal rules restrict any use of the information to criminally investigate or prosecute any alcohol or drug abuse patient.[facility] HospitalIn the event this information is protected by the Federal Confidentiality of Alcohol and Drug Abuse Patient Records regulations: The Federal rules restrict any use of the information to criminally investigate or prosecute any alcohol or drug abuse patient.[facility] HospitalIn the event this information is protected by the Federal Confidentiality of Alcohol and Drug Abuse Patient Records regulations: The Federal rules restrict any use of the information to criminally investigate or prosecute any alcohol or drug abuse patient.[facility] HospitalIn the event this information is protected by the Federal Confidentiality of Alcohol and Drug Abuse Patient Records regulations: The Federal rules restrict any use of the information to criminally investigate or prosecute any alcohol or drug abuse patient.[facility] HospitalIn the event this information is protected by the Federal Confidentiality of Alcohol and Drug Abuse Patient Records regulations: The Federal rules restrict any use of the information to criminally investigate or prosecute any alcohol or drug abuse patient.[facility] HospitalIn the event this information is protected by the Federal Confidentiality of Alcohol and Drug Abuse Patient Records regulations: The Federal rules restrict any use of the information to criminally investigate or prosecute any alcohol or drug abuse patient.[facility] HospitalIn the event this information is protected by the Federal Confidentiality of Alcohol and Drug Abuse Patient Records regulations: The Federal rules restrict any use of the information to criminally investigate or prosecute any alcohol or drug abuse patient.[facility] HospitalIn the event this information is protected by the Federal Confidentiality of Alcohol and Drug Abuse Patient Records regulations: The Federal rules restrict any use of the information to criminally investigate or prosecute any alcohol or drug abuse patient.[facility] HospitalIn the event this information is protected by the Federal Confidentiality of Alcohol and Drug Abuse Patient Records regulations: The Federal rules restrict any use of the information to criminally investigate or prosecute any alcohol or drug abuse patient.[facility] HospitalIn the event this information is protected by the Federal Confidentiality of Alcohol and Drug Abuse Patient Records regulations: The Federal rules restrict any use of the information to criminally investigate or prosecute any alcohol or drug abuse patient.[facility] HospitalIn the event this information is protected by the Federal Confidentiality of Alcohol and Drug Abuse Patient Records regulations: The Federal rules restrict any use of the information to criminally investigate or prosecute any alcohol or drug abuse patient.[facility] HospitalIn the event this information is protected by the Federal Confidentiality of Alcohol and Drug Abuse Patient Records regulations: The Federal rules restrict any use of the information to criminally investigate or prosecute any alcohol or drug abuse patient.[facility] HospitalIn the event this information is protected by the Federal Confidentiality of Alcohol and Drug Abuse Patient Records regulations: The Federal rules restrict any use of the information to criminally investigate or prosecute any alcohol or drug abuse patient.[facility] HospitalIn the event this information is protected by the Federal Confidentiality of Alcohol and Drug Abuse Patient Records regulations: The Federal rules restrict any use of the information to criminally investigate or prosecute any alcohol or drug abuse patient.[facility] HospitalIn the event this information is protected by the Federal Confidentiality of Alcohol and Drug Abuse Patient Records regulations: The Federal rules restrict any use of the information to criminally investigate or prosecute any alcohol or drug abuse patient.[facility] HospitalIn the event this information is protected by the Federal Confidentiality of Alcohol and Drug Abuse Patient Records regulations: The Federal rules restrict any use of the information to criminally investigate or prosecute any alcohol or drug abuse patient.[facility] HospitalIn the event this information is protected by the Federal Confidentiality of Alcohol and Drug Abuse Patient Records regulations: The Federal rules restrict any use of the information to criminally investigate or prosecute any alcohol or drug abuse patient.[facility] HospitalIn the event this information is protected by the Federal Confidentiality of Alcohol and Drug Abuse Patient Records regulations: The Federal rules restrict any use of the information to criminally investigate or prosecute any alcohol or drug abuse patient.[facility] HospitalIn the event this information is protected by the Federal Confidentiality of Alcohol and Drug Abuse Patient Records regulations: The Federal rules restrict any use of the information to criminally investigate or prosecute any alcohol or drug abuse patient.[facility] HospitalIn the event this information is protected by the Federal Confidentiality of Alcohol and Drug Abuse Patient Records regulations: The Federal rules restrict any use of the information to criminally investigate or prosecute any alcohol or drug abuse patient.[facility] HospitalIn the event this information is protected by the Federal Confidentiality of Alcohol and Drug Abuse Patient Records regulations: The Federal rules restrict any use of the information to criminally investigate or prosecute any alcohol or drug abuse patient.[facility] HospitalIn the event this information is protected by the Federal Confidentiality of Alcohol and Drug Abuse Patient Records regulations: The Federal rules restrict any use of the information to criminally investigate or prosecute any alcohol or drug abuse patient.[facility] HospitalIn the event this information is protected by the Federal Confidentiality of Alcohol and Drug Abuse Patient Records regulations: The Federal rules restrict any use of the information to criminally investigate or prosecute any alcohol or drug abuse patient.[facility] HospitalIn the event this information is protected by the Federal Confidentiality of Alcohol and Drug Abuse Patient Records regulations: The Federal rules restrict any use of the information to criminally investigate or prosecute any alcohol or drug abuse patient.[facility] HospitalIn the event this information is protected by the Federal Confidentiality of Alcohol and Drug Abuse Patient Records regulations: The Federal rules restrict any use of the information to criminally investigate or prosecute any alcohol or drug abuse patient.[facility] HospitalIn the event this information is protected by the Federal Confidentiality of Alcohol and Drug Abuse Patient Records regulations: The Federal rules restrict any use of the information to criminally investigate or prosecute any alcohol or drug abuse patient.[facility] HospitalIn the event this information is protected by the Federal Confidentiality of Alcohol and Drug Abuse Patient Records regulations: The Federal rules restrict any use of the information to criminally investigate or prosecute any alcohol or drug abuse patient.[facility] HospitalIn the event this information is protected by the Federal Confidentiality of Alcohol and Drug Abuse Patient Records regulations: The Federal rules restrict any use of the information to criminally investigate or prosecute any alcohol or drug abuse patient.[facility] HospitalIn the event this information is protected by the Federal Confidentiality of Alcohol and Drug Abuse Patient Records regulations: The Federal rules restrict any use of the information to criminally investigate or prosecute any alcohol or drug abuse patient.[facility] HospitalIn the event this information is protected by the Federal Confidentiality of Alcohol and Drug Abuse Patient Records regulations: The Federal rules restrict any use of the information to criminally investigate or prosecute any alcohol or drug abuse patient.[facility] HospitalIn the event this information is protected by the Federal Confidentiality of Alcohol and Drug Abuse Patient Records regulations: The Federal rules restrict any use of the information to criminally investigate or prosecute any alcohol or drug abuse patient.[facility] HospitalIn the event this information is protected by the Federal Confidentiality of Alcohol and Drug Abuse Patient Records regulations: The Federal rules restrict any use of the information to criminally investigate or prosecute any alcohol or drug abuse patient.[facility] HospitalIn the event this information is protected by the Federal Confidentiality of Alcohol and Drug Abuse Patient Records regulations: The Federal rules restrict any use of the information to criminally investigate or prosecute any alcohol or drug abuse patient.[facility] HospitalIn the event this information is protected by the Federal Confidentiality of Alcohol and Drug Abuse Patient Records regulations: The Federal rules restrict any use of the information to criminally investigate or prosecute any alcohol or drug abuse patient.[facility] HospitalIn the event this information is protected by the Federal Confidentiality of Alcohol and Drug Abuse Patient Records regulations: The Federal rules restrict any use of the information to criminally investigate or prosecute any alcohol or drug abuse patient.[facility] HospitalIn the event this information is protected by the Federal Confidentiality of Alcohol and Drug Abuse Patient Records regulations: The Federal rules restrict any use of the information to criminally investigate or prosecute any alcohol or drug abuse patient.[facility] HospitalIn the event this information is protected by the Federal Confidentiality of Alcohol and Drug Abuse Patient Records regulations: The Federal rules restrict any use of the information to criminally investigate or prosecute any alcohol or drug abuse patient.[facility] HospitalIn the event this information is protected by the Federal Confidentiality of Alcohol and Drug Abuse Patient Records regulations: The Federal rules restrict any use of the information to criminally investigate or prosecute any alcohol or drug abuse patient.[facility] HospitalIn the event this information is protected by the Federal Confidentiality of Alcohol and Drug Abuse Patient Records regulations: The Federal rules restrict any use of the information to criminally investigate or prosecute any alcohol or drug abuse patient.[facility] HospitalIn the event this information is protected by the Federal Confidentiality of Alcohol and Drug Abuse Patient Records regulations: The Federal rules restrict any use of the information to criminally investigate or prosecute any alcohol or drug abuse patient.[facility] HospitalIn the event this information is protected by the Federal Confidentiality of Alcohol and Drug Abuse Patient Records regulations: The Federal rules restrict any use of the information to criminally investigate or prosecute any alcohol or drug abuse patient.[facility] HospitalIn the event this information is protected by the Federal Confidentiality of Alcohol and Drug Abuse Patient Records regulations: The Federal rules restrict any use of the information to criminally investigate or prosecute any alcohol or drug abuse patient.[facility] HospitalIn the event this information is protected by the Federal Confidentiality of Alcohol and Drug Abuse Patient Records regulations: The Federal rules restrict any use of the information to criminally investigate or prosecute any alcohol or drug abuse patient.[facility] HospitalIn the event this information is protected by the Federal Confidentiality of Alcohol and Drug Abuse Patient Records regulations: The Federal rules restrict any use of the information to criminally investigate or prosecute any alcohol or drug abuse patient.[facility] HospitalIn the event this information is protected by the Federal Confidentiality of Alcohol and Drug Abuse Patient Records regulations: The Federal rules restrict any use of the information to criminally investigate or prosecute any alcohol or drug abuse patient.[facility] HospitalIn the event this information is protected by the Federal Confidentiality of Alcohol and Drug Abuse Patient Records regulations: The Federal rules restrict any use of the information to criminally investigate or prosecute any alcohol or drug abuse patient.[facility] HospitalIn the event this information is protected by the Federal Confidentiality of Alcohol and Drug Abuse Patient Records regulations: The Federal rules restrict any use of the information to criminally investigate or prosecute any alcohol or drug abuse patient.[facility] HospitalIn the event this information is protected by the Federal Confidentiality of Alcohol and Drug Abuse Patient Records regulations: The Federal rules restrict any use of the information to criminally investigate or prosecute any alcohol or drug abuse patient.[facility] HospitalIn the event this information is protected by the Federal Confidentiality of Alcohol and Drug Abuse Patient Records regulations: The Federal rules restrict any use of the information to criminally investigate or prosecute any alcohol or drug abuse patient.[facility] HospitalIn the event this information is protected by the Federal Confidentiality of Alcohol and Drug Abuse Patient Records regulations: The Federal rules restrict any use of the information to criminally investigate or prosecute any alcohol or drug abuse patient.[facility] HospitalIn the event this information is protected by the Federal Confidentiality of Alcohol and Drug Abuse Patient Records regulations: The Federal rules restrict any use of the information to criminally investigate or prosecute any alcohol or drug abuse patient.[facility] HospitalIn the event this information is protected by the Federal Confidentiality of Alcohol and Drug Abuse Patient Records regulations: The Federal rules restrict any use of the information to criminally investigate or prosecute any alcohol or drug abuse patient.[facility] HospitalIn the event this information is protected by the Federal Confidentiality of Alcohol and Drug Abuse Patient Records regulations: The Federal rules restrict any use of the information to criminally investigate or prosecute any alcohol or drug abuse patient.[facility] HospitalIn the event this information is protected by the Federal Confidentiality of Alcohol and Drug Abuse Patient Records regulations: The Federal rules restrict any use of the information to criminally investigate or prosecute any alcohol or drug abuse patient.[facility] HospitalIn the event this information is protected by the Federal Confidentiality of Alcohol and Drug Abuse Patient Records regulations: The Federal rules restrict any use of the information to criminally investigate or prosecute any alcohol or drug abuse patient.[facility] HospitalIn the event this information is protected by the Federal Confidentiality of Alcohol and Drug Abuse Patient Records regulations: The Federal rules restrict any use of the information to criminally investigate or prosecute any alcohol or drug abuse patient.[facility] HospitalIn the event this information is protected by the Federal Confidentiality of Alcohol and Drug Abuse Patient Records regulations: The Federal rules restrict any use of the information to criminally investigate or prosecute any alcohol or drug abuse patient.[facility] HospitalIn the event this information is protected by the Federal Confidentiality of Alcohol and Drug Abuse Patient Records regulations: The Federal rules restrict any use of the information to criminally investigate or prosecute any alcohol or drug abuse patient.[facility] HospitalIn the event this information is protected by the Federal Confidentiality of Alcohol and Drug Abuse Patient Records regulations: The Federal rules restrict any use of the information to criminally investigate or prosecute any alcohol or drug abuse patient.[facility] HospitalIn the event this information is protected by the Federal Confidentiality of Alcohol and Drug Abuse Patient Records regulations: The Federal rules restrict any use of the information to criminally investigate or prosecute any alcohol or drug abuse patient.[facility] HospitalIn the event this information is protected by the Federal Confidentiality of Alcohol and Drug Abuse Patient Records regulations: The Federal rules restrict any use of the information to criminally investigate or prosecute any alcohol or drug abuse patient.[facility] HospitalIn the event this information is protected by the Federal Confidentiality of Alcohol and Drug Abuse Patient Records regulations: The Federal rules restrict any use of the information to criminally investigate or prosecute any alcohol or drug abuse patient.[facility] HospitalIn the event this information is protected by the Federal Confidentiality of Alcohol and Drug Abuse Patient Records regulations: The Federal rules restrict any use of the information to criminally investigate or prosecute any alcohol or drug abuse patient.[facility] HospitalIn the event this information is protected by the Federal Confidentiality of Alcohol and Drug Abuse Patient Records regulations: The Federal rules restrict any use of the information to criminally investigate or prosecute any alcohol or drug abuse patient.[facility] HospitalIn the event this information is protected by the Federal Confidentiality of Alcohol and Drug Abuse Patient Records regulations: The Federal rules restrict any use of the information to criminally investigate or prosecute any alcohol or drug abuse patient.[facility] HospitalIn the event this information is protected by the Federal Confidentiality of Alcohol and Drug Abuse Patient Records regulations: The Federal rules restrict any use of the information to criminally investigate or prosecute any alcohol or drug abuse patient.[facility] HospitalIn the event this information is protected by the Federal Confidentiality of Alcohol and Drug Abuse Patient Records regulations: The Federal rules restrict any use of the information to criminally investigate or prosecute any alcohol or drug abuse patient.[facility] HospitalIn the event this information is protected by the Federal Confidentiality of Alcohol and Drug Abuse Patient Records regulations: The Federal rules restrict any use of the information to criminally investigate or prosecute any alcohol or drug abuse patient.[facility] HospitalIn the event this information is protected by the Federal Confidentiality of Alcohol and Drug Abuse Patient Records regulations: The Federal rules restrict any use of the information to criminally investigate or prosecute any alcohol or drug abuse patient.[facility] HospitalIn the event this information is protected by the Federal Confidentiality of Alcohol and Drug Abuse Patient Records regulations: The Federal rules restrict any use of the information to criminally investigate or prosecute any alcohol or drug abuse patient.[facility] HospitalIn the event this information is protected by the Federal Confidentiality of Alcohol and Drug Abuse Patient Records regulations: The Federal rules restrict any use of the information to criminally investigate or prosecute any alcohol or drug abuse patient.[facility] HospitalIn the event this information is protected by the Federal Confidentiality of Alcohol and Drug Abuse Patient Records regulations: The Federal rules restrict any use of the information to criminally investigate or prosecute any alcohol or drug abuse patient.[facility] HospitalIn the event this information is protected by the Federal Confidentiality of Alcohol and Drug Abuse Patient Records regulations: The Federal rules restrict any use of the information to criminally investigate or prosecute any alcohol or drug abuse patient.[facility] HospitalIn the event this information is protected by the Federal Confidentiality of Alcohol and Drug Abuse Patient Records regulations: The Federal rules restrict any use of the information to criminally investigate or prosecute any alcohol or drug abuse patient.[facility] HospitalIn the event this information is protected by the Federal Confidentiality of Alcohol and Drug Abuse Patient Records regulations: The Federal rules restrict any use of the information to criminally investigate or prosecute any alcohol or drug abuse patient.[facility] HospitalIn the event this information is protected by the Federal Confidentiality of Alcohol and Drug Abuse Patient Records regulations: The Federal rules restrict any use of the information to criminally investigate or prosecute any alcohol or drug abuse patient.[facility] HospitalIn the event this information is protected by the Federal Confidentiality of Alcohol and Drug Abuse Patient Records regulations: The Federal rules restrict any use of the information to criminally investigate or prosecute any alcohol or drug abuse patient.[facility] HospitalIn the event this information is protected by the Federal Confidentiality of Alcohol and Drug Abuse Patient Records regulations: The Federal rules restrict any use of the information to criminally investigate or prosecute any alcohol or drug abuse patient.[facility] HospitalIn the event this information is protected by the Federal Confidentiality of Alcohol and Drug Abuse Patient Records regulations: The Federal rules restrict any use of the information to criminally investigate or prosecute any alcohol or drug abuse patient.[facility] HospitalIn the event this information is protected by the Federal Confidentiality of Alcohol and Drug Abuse Patient Records regulations: The Federal rules restrict any use of the information to criminally investigate or prosecute any alcohol or drug abuse patient.[facility] HospitalIn the event this information is protected by the Federal Confidentiality of Alcohol and Drug Abuse Patient Records regulations: The Federal rules restrict any use of the information to criminally investigate or prosecute any alcohol or drug abuse patient.[facility] HospitalIn the event this information is protected by the Federal Confidentiality of Alcohol and Drug Abuse Patient Records regulations: The Federal rules restrict any use of the information to criminally investigate or prosecute any alcohol or drug abuse patient.[facility] HospitalIn the event this information is protected by the Federal Confidentiality of Alcohol and Drug Abuse Patient Records regulations: The Federal rules restrict any use of the information to criminally investigate or prosecute any alcohol or drug abuse patient.[facility] HospitalIn the event this information is protected by the Federal Confidentiality of Alcohol and Drug Abuse Patient Records regulations: The Federal rules restrict any use of the information to criminally investigate or prosecute any alcohol or drug abuse patient.[facility] HospitalIn the event this information is protected by the Federal Confidentiality of Alcohol and Drug Abuse Patient Records regulations: The Federal rules restrict any use of the information to criminally investigate or prosecute any alcohol or drug abuse patient.[facility] HospitalIn the event this information is protected by the Federal Confidentiality of Alcohol and Drug Abuse Patient Records regulations: The Federal rules restrict any use of the information to criminally investigate or prosecute any alcohol or drug abuse patient.[facility] HospitalIn the event this information is protected by the Federal Confidentiality of Alcohol and Drug Abuse Patient Records regulations: The Federal rules restrict any use of the information to criminally investigate or prosecute any alcohol or drug abuse patient.[facility] HospitalIn the event this information is protected by the Federal Confidentiality of Alcohol and Drug Abuse Patient Records regulations: The Federal rules restrict any use of the information to criminally investigate or prosecute any alcohol or drug abuse patient.[facility] HospitalIn the event this information is protected by the Federal Confidentiality of Alcohol and Drug Abuse Patient Records regulations: The Federal rules restrict any use of the information to criminally investigate or prosecute any alcohol or drug abuse patient.[facility] HospitalIn the event this information is protected by the Federal Confidentiality of Alcohol and Drug Abuse Patient Records regulations: The Federal rules restrict any use of the information to criminally investigate or prosecute any alcohol or drug abuse patient.[facility] HospitalIn the event this information is protected by the Federal Confidentiality of Alcohol and Drug Abuse Patient Records regulations: The Federal rules restrict any use of the information to criminally investigate or prosecute any alcohol or drug abuse patient.[facility] HospitalIn the event this information is protected by the Federal Confidentiality of Alcohol and Drug Abuse Patient Records regulations: The Federal rules restrict any use of the information to criminally investigate or prosecute any alcohol or drug abuse patient.[facility] HospitalIn the event this information is protected by the Federal Confidentiality of Alcohol and Drug Abuse Patient Records regulations: The Federal rules restrict any use of the information to criminally investigate or prosecute any alcohol or drug abuse patient.[facility] HospitalIn the event this information is protected by the Federal Confidentiality of Alcohol and Drug Abuse Patient Records regulations: The Federal rules restrict any use of the information to criminally investigate or prosecute any alcohol or drug abuse patient.[facility] HospitalIn the event this information is protected by the Federal Confidentiality of Alcohol and Drug Abuse Patient Records regulations: The Federal rules restrict any use of the information to criminally investigate or prosecute any alcohol or drug abuse patient.[facility] HospitalIn the event this information is protected by the Federal Confidentiality of Alcohol and Drug Abuse Patient Records regulations: The Federal rules restrict any use of the information to criminally investigate or prosecute any alcohol or drug abuse patient.[facility] HospitalIn the event this information is protected by the Federal Confidentiality of Alcohol and Drug Abuse Patient Records regulations: The Federal rules restrict any use of the information to criminally investigate or prosecute any alcohol or drug abuse patient.[facility] HospitalIn the event this information is protected by the Federal Confidentiality of Alcohol and Drug Abuse Patient Records regulations: The Federal rules restrict any use of the information to criminally investigate or prosecute any alcohol or drug abuse patient.[facility] HospitalIn the event this information is protected by the Federal Confidentiality of Alcohol and Drug Abuse Patient Records regulations: The Federal rules restrict any use of the information to criminally investigate or prosecute any alcohol or drug abuse patient.[facility] HospitalIn the event this information is protected by the Federal Confidentiality of Alcohol and Drug Abuse Patient Records regulations: The Federal rules restrict any use of the information to criminally investigate or prosecute any alcohol or drug abuse patient.[facility] HospitalIn the event this information is protected by the Federal Confidentiality of Alcohol and Drug Abuse Patient Records regulations: The Federal rules restrict any use of the information to criminally investigate or prosecute any alcohol or drug abuse patient.[facility] HospitalIn the event this information is protected by the Federal Confidentiality of Alcohol and Drug Abuse Patient Records regulations: The Federal rules restrict any use of the information to criminally investigate or prosecute any alcohol or drug abuse patient.[facility] HospitalIn the event this information is protected by the Federal Confidentiality of Alcohol and Drug Abuse Patient Records regulations: The Federal rules restrict any use of the information to criminally investigate or prosecute any alcohol or drug abuse patient.[facility] HospitalIn the event this information is protected by the Federal Confidentiality of Alcohol and Drug Abuse Patient Records regulations: The Federal rules restrict any use of the information to criminally investigate or prosecute any alcohol or drug abuse patient.[facility] PRN Active and Recently Administ ered Medications (unrecognized section and content) Medication Order 02/10/2023 02/11/2023 02/12/2023 BUPivacaine (PF) 0.25 % (2.5 mg/mL) injection (SENSORCAINE MPF) (CANCELED) X (OR/PROCEDURE) PRN, Starting on Wed02/12/23 at 1349, Until Wed02/12/23 at 1401, Intraprocedure 1349 (Given - Provid er: Juan Daniel Contreras MD) fentaNYL 50 mcg/mL injection (SUBLIMAZE) [...] BE BASED ON THE PRIMARY CLINICAL RECORDS. [employer] [facility]. provides no warranty or guarantee of the accuracy or completeness of information in this document.
[2025-10-31 18:09] LABS: Hematocrit 35.6 % (37-47); Hemoglobin 12.6 g/dL (12.0-15.0); Immature Granulocytes Count 0.300 X10^3/uL (0.0-0.0); Mean Corp Hgb Conc 35.4 g/dL (32-36); Mean Corpuscular Volume 84.2 fL (81-99); Mean Platelet Vol. 9.5 fl (6.2-12.0); NRBC Flagged by Analyzer 0 % (0-5); Platelet Count 197 K/mm3 (150-450); RBC Distribution Width CV 13.6 % (11.6-14.6); RBC Distribution Width SD 41.5 fl (35.1-43.9); Red Blood Count 4.23 M/mm3 (4.2-5.4); White Blood Count 11.3 K/mm3 (4.4-11.0)
[2025-10-31 18:41] LABS: Anion Gap 11 (5-15); BUN 9 mg/dL (4-19); BUN/Creat Ratio 13.3 RATIO (10-20); Calcium,Total 9.4 mg/dL (7.6-11.0); Carbon Dioxide 25.7 mmol/L (21.0-32.0); Chloride 103 mmol/L (98-108); Estimated Creatinine Clearance 135.71 ml/min (50-250); Glucose 167 mg/dL (70-99); Potassium 3.7 mmol/L (3.3-5.1)
[2025-10-31 19:25] LABS: Color, Urine Yellow (Yellow); Glucose, Dipstick Normal (Normal); Ketone-Dipstick Negative (Negative); Leukocyte Esterase-Dipstick Negative /ul (Negative); Nitrite-Dipstick Negative (Negative); Occult Blood-Urine 250 /ul (Negative); Protein-Dipstick 100 mg/dl (Negative); Specific Gravity, Urine 1.015 (1.002-1.030); Urine Bilirubin Dipstick Negative (Negative)
[2025-10-31 19:44] LABS: Red Blood Cells-Urine > 100 SEEN /hpf (0-5)
[2025-10-31 19:46] LABS: Squamous Epithelial Cells - UA 5-10 SEEN /hpf (5-10)
[2025-10-31 19:47] LABS: Mucous, Urine 2+ /hpf (<or=2+)
[2025-10-31 20:00] VITALS: BP 144/93; PULSE 77; RESP 15; O2SAT 95
[2025-10-31] MEDS: Smz/Tmp Ds Tablet 1 TABLET PO (20:52)
[2025-10-31 20:53] VITALS: BP 144/93; PULSE 98; RESP 18; TEMP 36.6; O2SAT 99
== END 2025-10-31 20:57 | disposition home or self-care (01) ==
PROVIDERS: Emergency Provider Emergency Medicine; PCP Family Medicine; Visit Provider Emergency Medicine
DX: N39.0 Urinary tract infection, site not specified (principal); I10 Essential (primary) hypertension; Z87.442 Personal history of urinary calculi; J45.909 Unspecified asthma, uncomplicated; Z98.51 Tubal ligation status; Z90.49 Acquired absence of other specified parts of digestive tract; R07.9 Chest pain, unspecified; N13.30 Unspecified hydronephrosis
CPT/HCPCS: 74176; 80048; 81001; 85025; 96361; 96374; 96375; 96376; 99284; A4216; J2405

== ENCOUNTER 2025-11-01 17:41 | Emergency (ER) | payer MEDICAID, SELFPAY ==
[2025-11-01 17:41] VITALS: BP 157/96; PULSE 81; RESP 16; TEMP 36.4; O2SAT 100; BMI 34.1
[2025-11-01 19:13] LABS: Mucous, Urine 0 SEEN /hpf (<or=2+)
[2025-11-01 19:19] LABS: Color, Urine Straw (Yellow); Glucose, Dipstick Normal (Normal); Ketone-Dipstick Negative (Negative); Leukocyte Esterase-Dipstick 25 /ul (Negative); Nitrite-Dipstick Negative (Negative); Occult Blood-Urine 25 /ul (Negative); Protein-Dipstick 30 mg/dl (Negative); Specific Gravity, Urine 1.015 (1.002-1.030); Urine Bilirubin Dipstick Negative (Negative)
[2025-11-01 19:21] LABS: Internal QC Validated? YES +Cl - CLEAR BKGD; Pregnancy, Urine Negative Negative
--- NOTE | 2025-11-01 19:35 | EX.ED.DYSGE1 ---
HPI History of Present Illness Chief Complaint: Complaint Detail of Chief Complaint: Hematuria, dysuria, abdominal pain Informant: patient Narrative Narrative: Patient presents to the emergency department with complaint of hematuria and vomiting today. Patient states she was seen in the emergency department last evening and diagnosed with a UTI and started on Bactrim. Patient tells me that she had a surgery for kidney stone removal on the left side in October 25 and then had a stent placed. She had the stent removed few days ago. She continues to have pain. Urologist from out of town referred her back to the emergency department. Patient had a CT scan of the abdomen pelvis last evening that showed mild ongoing left hydroureter. No stone seen last night. [facility] Medical History Migraine headache without aura Endometriosis Benign heart murmur Right carpal tunnel syndrome Kidney stone Cancer Anemia Migraine headache History of GI bleed Non-smoker Shortness of breath on exertion Leg cramps Hypertension Cardiology follow-up encounter Vitamin D deficiency PTSD (post-traumatic stress disorder) Papillary thyroid carcinoma Lupus Lactose intolerance Fibromyalgia DDD (degenerative disc disease) Congenital hip deformity Congenital heart defect Chronic fatigue Back pain Anxiety Bloating Environmental allergies Asthma Home Medications ?Medication ?Instructions ?Recorded ?Last Taken ?Type albuterol sulfate 90 mcg/actuation 1 - 2 puff inhalation Q4H PRN PRN 11/06/19 Unknown History aerosol inhaler Sob &/Or Wheezing rizatriptan 10 mg tablet (Maxalt) 10 mg PO PRN PRN MIGRAINES 10/28/22 Unknown History tramadol 50 mg tablet 50 mg PO Q6H PRN Pain 04/05/23 03/18/25 History cyclobenzaprine 10 mg tablet 10 mg PO TID PRN Muscle Spasm #20 03/13/24 Unknown Rx TABLETS cariprazine 1.5 mg capsule 1.5 mg PO DAILY 05/13/24 03/18/25 History (Ambroselagigi) scopolamine base 1 mg over 3 days 1 patch transdermal Q3D PRN nasuea 01/19/25 Unknown Rx transdermal patch #24 ea hydrochlorothiazide 25 mg tablet 25 mg PO DAILY 03/19/25 03/18/25 History levothyroxine 200 mcg tablet 200 mcg PO DAILY 03/19/25 03/18/25 History levothyroxine 25 mcg tablet 25 mcg PO MOWE 03/19/25 03/14/25 History ondansetron 4 mg disintegrating 4 mg PO Q8H PRN PRN Nausea #10 tabs 03/19/25 Unknown Rx tablet prazosin 2 mg capsule 2 mg PO QHS 03/19/25 03/18/25 History quetiapine 50 mg tablet 50 mg PO QHS 03/19/25 03/18/25 History promethazine 12.5 mg tablet 12.5 mg PO TID PRN nausea and 04/10/25 Unknown Rx vomiting #30 tabs promethazine 25 mg rectal 25 mg FL Q6H PRN nausea and 04/17/25 Unknown Rx suppository vomiting #12 ea oxycodone-acetaminophen 5 mg-325 1 tab PO Q6H PRN pain 5 days #20 07/01/25 Unknown Rx mg tablet (Percocet) tabs hydrocodone-acetaminophen 5-325mg 1 tab PO Q6H PRN PRN Pain 3 days 10/31/25 Unknown Rx 5mg-325mg #10 TABLETS sulfamethoxazole 800 1 tab PO BID #14 TABLETS 10/31/25 Unknown Rx mg-trimethoprim 160 mg tablet ondansetron 4 mg disintegrating 4 mg PO Q8H PRN PRN Nausea #10 tabs 11/01/25 Unknown Rx tablet phenazopyridine 200 mg tablet 200 mg PO BID PRN PRN Pain #10 tabs 11/01/25 Unknown Rx (Pyridium) Allergy/AdvReac Type Severity Reaction Status Date / Time amphetamine (From Adderall) Allergy Severe unknown Verified 11/01/25 17:44 dextroamphetamine (From Allergy Severe unknown Verified 11/01/25 17:44 Adderall) adhesive tape Allergy Intermediate Rash Verified 11/01/25 17:44 morphine Allergy Rash Verified 11/01/25 17:44 Family History Mother Asthma Diabetes Hypertension Crohn's disease Kidney disease Father Hypertension Sister Bone cancer Other Bipolar 1 disorder Surgical History Hx of thyroidectomy Hx of esophagogastroduodenoscopy Hx of colonoscopy History of cystoscopy Hx of tubal ligation History of sinus surgery Hx of cholecystectomy S/P right knee arthroscopy Social History Smoking Status: Never smoker alcohol intake: never ROS ROS ED Review of Systems ROS Unobtainable: other Constitutional Constitutional ED: Reports lethargy; Denies chills, fever(s), sweats or weight loss Eyes Eyes: Denies blurry vision, change in vision or diplopia ENT ENT ED: Denies rhinorrhea or sore throat Cardiovascular Cardiovascular: Denies chest pain, orthopnea or racing heartbeat Respiratory/Chest Respiratory/Chest: Denies cough, dyspnea, dyspnea on exertion, orthopnea or sputum Gastrointestinal Gastrointestinal: Reports abdominal pain, nausea and vomiting; Denies diarrhea Genitourinary Genitourinary ED: Reports dysuria; Denies hematuria or urinary frequency Musculoskeletal Musculoskeletal: Denies arthralgias, back pain, myalgias or neck pain Integumentary Denies abscess, Abrasions or rash Neurologic Neurologic: Denies headache(s) or weakness Psychiatric Psychiatric: Denies anxiety, depression or suicidal thoughts Endocrine Endocrinology: Denies polydipsia, polyphagia or polyuria Hematologic/Lymphatic Hematologic/Lymphatic: Denies easy bleeding, easy bruising or lymphadenopathy Allergic/Immunologic Allergic/Immunologic ED: Denies mouth swelling, tongue swelling or urticaria EXAM Physical Exam Const Vital Signs: 11/01/25 17:41 11/01/25 19:55 Temperature 97.5 F L Temperature Source Oral Pulse Rate 81 73 Respiratory Rate 16 14 Blood Pressure 157/96 H 161/100 H Blood Pressure Mean 116 120 Pulse Ox 100 95 Oxygen Delivery Method Room Air Room Air Positive well nourished and well developed General Appearance ED: well developed and NAD HEENT Reports TM's clear and moist mucous membranes normocephalic and atraumatic; Negative for trauma or tenderness Tympanic Membrane ED: Yes TM's clear Eyes PERRL and EOMs intact bilaterally General Eye ED: Negative for pale conjunctiva or scleral icterus Neck no lymphadenopathy, supple and no JVD General: Negative for tenderness Chest Wall inspection of chest normal and palpation of chest normal Chest: Negative for tenderness Resp normal respiratory effort and clear to auscultation bilaterally Effort and Inspection: Negative for respiratory distress or pain with movement Auscultation: Negative for rhonchi, wheezes or diminished lung sounds Cardio regular rate, regular rhythm, S1 normal heart sound, S2 normal heart sound and no murmurs Peripheral Pulses: pulses 2+ throughout GI normal to inspection, nondistended, normoactive bowel sounds, soft to palpation, non-tender, non-distended and no masses GI Narrative: Diffuse tenderness over suprapubic region left lower quadrant with some guarding. There is no rebound, rigidity, or peritoneal signs. Mild CVA tenderness on the left. Back/Spine no thoracic nor lumbar tenderness; Negative for no CVA tenderness Back/Spine Narrative: CVA tenderness on the left. Extremity normal to inspection General Extremety ED: Negative for edema General Extremity: Negative for edema Neuro oriented x3, CN's II-XII intact bilaterally, no sensory deficits noted and gait normal Sensorium / Orientation: awake, alert, oriented to person, oriented to place and oriented to time Motor Exam: strength 5/5 throughout and strength abnormal Psych mental status grossly normal Skin no rashes or lesions noted and no wounds MDM MDM MDM Narrative Medical decision making narrative: Patient presents the emergency department with nausea and vomiting and some hematuria. Recent history of kidney stone surgery and stent that was secondarily removed. Seen in the emergency department for ongoing pain yesterday and had a CT that showed some hydroureter but no stone. She was discharged home with hydrocodone. She has Phenergan at home did not seem to help her nausea. She called her urologist and was told to come to the emergency department to be evaluated. Her urologist however does not have credentialing at our facility and normally goes to [facility]. I will establish. Patient was medicated with Toradol and Zofran initially and she had good relief of her nausea. CBC with differential obtained showed a white count of 9.8 with hemoglobin 13 and platelet count of 218. Chemistries unremarkable. Lactate normal at 1.8. Urinalysis showed 0-5 red blood cells and +1 bacteria with 25 leukocyte esterase and negative nitrites. Patient currently on Bactrim. She continued to have pain and was given a milligram of Dilaudid. At this point I do not have urology available at our facility. I did offer to have her transferred to where her urologist practices at [facility] if she has ongoing pain. Patient does not want to do that and would like to go home. I will write her prescription for Zofran and Pyridium. Advised to follow-up with her urologist within next 1 to 2 days. She is to return if worsening pain, fever, persistent vomiting, dehydration, or condition should worsen anyway. Lab Data Attestation: I reviewed the patient's lab results. Labs: Laboratory Results - last 24 hr 11/01/25 11/01/25 19:06 19:56 WBC 9.8 RBC 4.48 Hgb 13.0 Hct 37.5 MCV 83.7 MCH 29.0 MCHC 34.7 RDW Std Deviation 41.0 RDW Coeff of Ame 13.6 Plt Count 218 MPV 9.9 Immature Gran % (Auto) 3.200 H Neut % (Auto) 59.4 Lymph % (Auto) 27.5 [place] % (Auto) 6.2 Eos % (Auto) 3.0 Baso % (Auto) 0.7 Absolute Neuts (auto) 5.8 Absolute Lymphs (auto) 2.71 Nucleated RBC % 0 Sodium 142 Potassium 3.7 Chloride 106 Carbon Dioxide 22.5 Anion Gap 14 BUN 8 Creatinine 0.71 Estim Creat Clear Calc 125.83 Est GFR (MDRD) Non-Af 114 BUN/Creatinine Ratio 11.8 Glucose 164 H Lactic Acid 1.8 Calcium 9.5 Urine Color Straw Urine Clarity Sl. Cloudy Urine pH 7.0 Ur Specific [place] 1.015 Urine Protein 30 H Urine Glucose (UA) Normal Urine Ketones Negative Urine Occult Blood 25 H Urine Nitrite Negative Urine Bilirubin Negative Urine Urobilinogen Normal Ur Leukocyte Esterase 25 H Urine RBC 0-5 SEEN Urine WBC 0-5 SEEN Ur Squamous Epith Cells 0-5 SEEN Amorphous Sediment 2+ Urine Bacteria 1+ Urine Mucus 0 SEEN Urine Test Negative Discharge Plan Triage Chief Complaint: Complaint ED Provider: Rocio Higginbotham Dx/Rx/DC Orders Clinical Impression: Dysuria, Acute flank pain, Hematuria Instructions: ED Hematuria, ED Pain, Acute, Uncertain Cause, ED UTIs Women Prescriptions: New phenazopyridine [Pyridium] 200 mg tablet 200 mg PO BID PRN PRN (Reason: Pain) Qty: 10 0RF ondansetron 4 mg tablet,disintegrating 4 mg PO Q8H PRN PRN (Reason: Nausea) Qty: 10 0RF No Action rizatriptan [Maxalt] 10 mg tablet 10 mg PO PRN PRN (Reason: MIGRAINES) scopolamine base 1 mg over 3 days patch 3 day 1 patch transdermal Q3D PRN (Reason: nasuea ) Qty: 24 2RF promethazine 12.5 mg tablet 12.5 mg PO TID PRN (Reason: nausea and vomiting) Qty: 30 2RF albuterol sulfate 1 INHALER inhaler 1 - 2 puff inhalation Q4H PRN MDD \ PRN (Reason: Sob &/Or Wheezing) tramadol 50 mg Tablet 50 mg PO Q6H PRN (Reason: Pain) cyclobenzaprine 10 mg tablet 10 mg PO TID PRN (Reason: Muscle Spasm) Qty: 20 0RF Vraylar 1.5 mg capsule 1.5 mg PO DAILY promethazine 25 mg suppository 25 mg FL Q6H PRN (Reason: nausea and vomiting) Qty: 12 0RF oxycodone-acetaminophen [Percocet] 5-325 mg tablet 1 tab PO Q6H PRN (Reason: pain) 5 Days Qty: 20 0RF hydrocodone-acetaminophen 5-325 mg tablet 1 tab PO Q6H PRN PRN (Reason: Pain) 3 Days Qty: 10 0RF sulfamethoxazole-trimethoprim 800-160 mg tablet 1 tab PO BID Qty: 14 0RF hydrochlorothiazide 25 mg tablet 25 mg PO DAILY prazosin 2 mg capsule 2 mg PO QHS quetiapine 50 mg tablet 50 mg PO QHS levothyroxine 200 mcg tablet 200 mcg PO DAILY levothyroxine 25 mcg tablet 25 mcg PO MOWE Rx Instructions: WITH 200MCG ondansetron 4 mg tablet,disintegrating 4 mg PO Q8H PRN PRN (Reason: Nausea) Qty: 10 0RF Primary Care Provider: Nagi Blanc Referrals: Nagi Blanc MD [Primary Care Provider, Family Practice] Activity Restrictions/Additional Instructions: Follow-up with urology within the next 1 to 2 days. Please return if persistent or worsening pain, fever, persistent vomiting, or condition worsen anyway. Print Language: Slovenian Disposition Disposition: Home, Self Care
--- OUTSIDE RECORDS SUMMARY | 2025-11-01 19:49 | XMS RPT_ITS | CCD ---
Author Organization [facility] Care Team Providers Care Supervisor [employer] Name Role Phone Nagi Red MD Primary Care Provider [phone] Nagi Red MD Unavailable [phone] Nagi Red MD Primary Care Provider [phone] Nagi Red MD Primary Care Provider Dental findings: teeth intact. Additional exam findings: [...] pre-anesthesia evaluation, pertinent (more content not included)... [facility] GRETA ANDRES ([id number]) 1990 F Date Time Provider Department 06/29/25 [...] Primary Visit Diagnosis:Bilateral nephrolithiasis [N20.0] Order(s):US KIDNEY/BLADDER [0049947] Order #: [id number] FUTURE Prescriptions as of 07/02/2025 - tamsulosin [...] [Z01.41*04/25/2024 Dermato (more content not included)... Normal [facility] ECG COMPLETEon 06-29-2025 ECG COMPLETE Ventricular Rate : 6 1 BPM Atrial Rate : 61 BPM P-R Interval : 156 ms QRS Duration : 96 ms Q-T Interval : 428 ms QTC Calculation(Bazett) : 430 ms Calculated P [place] : 28 degrees Calculated R [place] : -2 degrees Calculated T [place] : 59 degrees Normal sinus rhythm with sinus arrhythmia Minimal voltage criteria for LVH, may be normal variant ( R in aVL ) Borderline ECG No previous ECGs available Confirmed by TERRY QUILES MD ([id number]) on 07/02/2025 5:00:40 PM NAME : GRETA ANDRES PID : [id number] : 1990 Gender : Female Race : ORD : [id number] Procedure Date : Jun 29 2025 12:28:32 Edit Date : Jul 02 2025 17:00:48 Diagnosis: Normal sinus rhythm with sinus arrhythmia Minimal voltage criteria for LVH, may be normal variant ( R in aVL ) Borderline ECG No previous ECGs available Confirmed by TERRY QUILES MD ([id number]) on 07/02/2025 5:00:40 PM Test Reason : OTOE Location : 7 : [facility] Overread By : TERRY QUILES MD Edited By : TERRY QUILES MD Referred By : , Acquired by : PATY MON [facility] HCG Preg Ur Qlon 06-29-2025 HCG ( test) Ql (U) Negative Normal Negative [facility] Comment on above: Order Comment: Speci men Type: URINE SPECIMEN Ordering Facility: [facility] Address: [address] [place] [address] Result Comment: This test is intended to aid in the early detection of . Very dilute urine samples, as indicated by a low specific gravity, may not contain manufacturers representative levels of hCG. This test detects [...] . Performed By: #### 2 106-3 #### [facility] CLIA [id number] [address] [place], [place] [id number] [place] OPERATIVE NOon 06-29-2025 OPERATIVE NO HNO ID: [id number] Author: GRETA TEMPLETON DO Service: Urology Author Type: Physician Type: Operative Report Filed: 06/29/2025 15:31 Note Text: OPERATIVE/PROCEDURE REPORT LOG ID: [id number] SURGERY/PROCEDURE DATE: 06/29/2025 INCISION/PROCEDURE START TIME: 2:18 PM INCISION CLOSE/PROCEDURE END TIME: 3:13 PM SURGEON(S)/PROCEDURALIST(S) AND INVENTORY SPECIALIST(S): Surgeons and Role: * Greta Templeton DO - Primary No Additional Staff SURGERY/PROCEDURE(S): Cystoscopy, Bilateral Retrograde Pyelogram with Intraoperative Interpretation, Right Ureteroscopy and Right Pyeloscopy, Laser Lithotripsy, Stone Basketing, Right Stent Placement ANESTHESIA: General PRE-OP/PRE-PROCEDURE DIAGNOSIS: Right renal stone, Right flank pain POST-OP/POST-PROCEDURE DIAGNOSIS: Same as Preop ESTIMATED BLOOD LOSS: 0 ml SPECIMENS: None IMPLANTABLE DEVICES: Implant Name Type Inv. Item Serial No. Steward/Stewardess Bath Lot No. LRB No. Used Action STENT INLAY OPTIMA 6FR TAPER SITKA GREEN POLYMER PHREECOAT 28CM URETERAL - [id number] Urologic Stents STENT INLAY OPTIMA 6FR TAPER SITKA GREEN POLYMER PHREECOAT 28CM URETERAL DAVID MIKE [id number] Right 1 Implanted FOLEYS: None COMPLICATIONS: None CLOSURE TECHNIQUE: n/a PARTICIPATION IN SURGERY/PROCEDURE: I/primary surgeon/proceduralist performed the entire procedure. INDICATION FOR PROCEDURE: Greta Anrdes was seen in office for R renal [...] were confirmed prior to starting. A 22 Icelandic sheath rigid cystoscope was used to inspect both the urethra and bladder. The urethra was without any lesions or strictures. After thorough inspection with 30 degree lens, bladder mucosa appeared normal with two ureteral orifices in orthotopic position (there were no trabeculations, diverticula, cellules, masses/tumors or foreign bodies). On procedure tech, the stone was not visible. A 5 [...] met - Rx: Flomax 1 week, Refill Humarock 1x - Follow-up: RBUS 5 weeks - Discussed return precautions - Pt instructions provided SIGNATURE: Greta Templeton PATIENT NAME: Greta Andres DATE: June 29, 2025 TIME: 3:[address] [facility] THYROGLOBULIN&THYROGLOBULIN ABon 06-29-2025 Rough Rounder review Cristi (Unsp spec) [Interp] SEE COMMENTS [facility] Comment on above: Thyroglobulin (Tg) r eference [...] testing methods are immunoenzymatic assays manufactured by [employer] and performed on the ABODO DXI 800. Values obtained from different assay methods or kits may be different and cannot be used interchangeably. The results cannot be interpreted as absolute evidence for the presence or absence of malignant disease. Test Performed by: [facility] [address] [place] [address] Angio Technologist: Tennille Mejia Ph.D.; CLIA# [id number] Thyroglobulin [Mass/Vol] <0.1 < or = 33 ng/mL [facility] Thyroglobulin Ab IA Qn <1.8 NINF [facility] CNOVon 06-28-2025 CNOV Office Visit (FAMPWS ) GRETA ANDRES ([id number]) 1990 F Date Time Provider Department 06/28/25 [...] in her BP readings. Yesterday at in [place] it was 159/95. Supposed to hear back from regarding her Thyroid results and dosage from Dr. Caitlyn Rivera, Division of Endo at [facility]. Greta Andres is a 35-year-old female [...] a referral to a specialist at the [facility] for gastroparesis management. She has previously [...] 08/07/2013 Bipolar 1 disorder (HCC) 02/14/2018 Seeing [facility] Behavioral Medicine as of 01/2018 Bipolar [...] joint dysfun (more content not included)... Normal [facility] CHG US SOFT TISSUE HEAD & NE CK REAL TIME IMGE DOCMon 06-27-2025 Caitlyn Rivera MD 10/2025 1:48 AM ULTRASOUND NOTE Images were taken through the central and lateral neck bilaterally. This reveals no residual tissue in the thyroid bed. RIGHT CENTRAL: No suspicious lesion. RIGHT LATERAL: No suspicious lesion LEFT CENTRAL: No suspicious lesions LEFT LATERAL: No suspicious nodes [facility] THYROGLOBULIN&THYROGLOBULIN ABon 06-27-2025 Thyroglobulin Antibody <1.8 Normal <1.8 [facility] Comment on above: Performed By: #### T HYBAT #### [facility] (DEFAULT) [address] [place] [address] Thyroglobulin Interpretation SEE COMMENTS Normal [facility] Comment on above: Result Comment: Thyr [...] testing methods are immunoenzymatic assays manufactured by [employer]. and performed on the ABODO DXI 800. Values obtained from different assay methods or kits may be different and cannot be used interchangeably. The results cannot be interpreted as absolute evidence for the presence or absence of malignant disease. Test Performed by: [facility] [address] [place] [address] Angio Technologist: Tennille Mejia Ph.D.; CLIA# [id number] Performed By: #### T HYBAT #### [facility] (DEFAULT) [address] [place] [address] Thyroglobulin, Tumor Marker <0.1 Normal < or = 33 [facility] Comment on above: Performed By: #### T HYBAT #### [facility] (DEFAULT) [address] [address] TSHon 06-27-2025 Interpretation and review of laboratory results Normal [facility] TSH Qn 2.099 m[IU]/L [facility] TSH 2.099 uIU/mL Normal 0.550-4.780 [facility] Comment on above: Performed By: #### T SH #### [facility] (DEFAULT) [address] [place] [address] [place] Unspecified body regionOr dered By: Unassigned Pacs on 06-27-2025 [facility] Work Phone: [place] Unspecified body regionon 06-27-2025 Radiology Study observation (narrative) [facility] CNPNon 06-26-2025 CNPN Telephone (UROUPD) GRETA ANDRES ([id number]) 1990 F Date Time Provider Department 06/26/25 GRETA TEMPLETON UROUPD During your visit today, we recorded the following information about you: Greta Templeton DO 06/26/2025 1:49 PM Signed Please call [place] [facility] to see why the Humarock I prescribed was canceled 06/25/25 , I [...] Encounter Status:Closed by GRETA TEMPLETON on 06/26/25 [facility] 06-25-2025 [place] Telephone (FAMPWS) GRETA ANDRES ([id number]) 1990 F Date Time Provider Department 06/25/25 [...] is elevated due to her increased pain. Syrenaicat message sent into Urology about this, she [...] and concen (more content not included)... Normal [facility] CNPN Telephone (UROUPD) GRETA ANDRES ([id number]) 1990 F Date Time Provider Department 06/25/25 [...] ask to see how she did with Humarock in the past and let me know Greta Templeton DO Omer Landon 06/25/2025 4:30 PM Signed Spoke to pt and she voiced her understanding, she did state if she remembers correctly she is fine with Humarock. Greta Templeton DO 06/25/2025 5:16 PM Signed Stop Tramadol sending Rx Humarock DO Roya Walker Brittany, DO 06/25/2025 5:16 [...] essential [I10] 06/22 (more content not included)... [facility] 06-19-2025 [facility] Office Visit (URUN) GRETA ANDRES ([id number]) 1990 F Date Time Provider Department 06/19/25 11:00 AM GRETA TEMPLETON During your visit today, we recorded the following information about you: Pulse Blood pressure 74/minute 143/99 Greta Templeton DO 06/29/2025 1:26 PM Signed [facility] [place] ESTABLISHED PATIENT NOTE/HISTORY AND PHYSICAL PATIENT: Greta Andres (35 year old) PCP: Nagi Red MD DATE OF SERVICE: 06/19/2025 SUBJECTIVE: CHIEF COMPLAINT: Follow Up (CT f/u. Patient has no new complaints and still in a lot of pain. ) HISTORY OF PRESENT ILLNESS: Recording using Admaxim software for draft documentation of the visit was discussed with the patient/authorized manufacturers representative; all questions welcomed and answered. Patient/authorized manufacturers representative agreed to proceed The patient was [...] (03/31/2012), 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[facility]), Degenerative disc disease, Disorders of sacrum [...] her mother; CROHN (more content not included)... [facility] HISTORY PHYSICALon HISTORY PHYSICAL HNO ID: [id number] Author: GRETA TEMPLETON DO Service: ? Author Type: Physician Type: H&P Filed: 06/29/2025 13:26 Note Text: [facility] [place] ESTABLISHED PATIENT NOTE/HISTORY AND PHYSICAL PATIENT: Greta Andres (35 year old) PCP: Nagi Red MD DATE OF SERVICE: 06/19/2025 SUBJECTIVE: CHIEF COMPLAINT: Follow Up (CT f/u. Patient has no new complaints and still in a lot of pain. ) HISTORY OF PRESENT ILLNESS: Recording using Admaxim software for draft documentation of the visit was discussed with the patient/authorized manufacturers representative; all questions welcomed and answered. Patient/authorized manufacturers representative agreed to proceed The patient was [...] (08/07/2013), Bipolar 1 disorder ([facility]) (02/14/2018), Bipolar 1 disorder ([facility]), Chronic fatigue disorder (03/19/2015), Congenital heart defect ([facility]) (03/31/2012), 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[facility]), Degenerative disc disease, Disorders of sacrum (02/20/2013), Dysmenorrhea (04/11/2007), Exercise-induced asthma ([facility]) (03/22/2014), Fetus conceived on control (03/31/2012), Fibromyalgia, Gastroparesis (03/25/2024), GERD (gastroesophageal reflux disease) (03/22/2014), HALLUX VALGUS (01/23/2009), Hypertension, essential (07/06/2022), Irregular menstrual cycle (04/11/2007), Lactose intolerance (03/31/2012), Lumbago (07/27/2012), Lumbar degenerative disc disease (07/27/2012), Lumbar spinal stenosis (04/25/2024), Lupus (systemic lupus erythematosus) ([facility]), Migraine without aura and without status migrainosus, not intractable (05/20/2017), Multiple thyroid nodules (07/26/2019), Neoplasm of uncertain behavior of skin of back, Obesity, Class I, BMI 30-34.9 (03/03/2023), Other and unspecified ovarian cyst, Other joint derangement, not elsewhere classified, lower leg (08/20/2008), 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 (more content not included)... Normal [facility] CBC W Auto Differential pane l (Bld)on 06-16-2025 Basophils (Bld) [#/Vol] 0.05 10*3/uL Normal <0.11 [facility] Comment on above: Order Comment: Speci men Type: BLOOD SPECIMEN Ordering Facility: [facility] Address: [address] [place] [address] Performed By: #### 5 7021-8 #### [facility] CLIA [id number] [address] [place] [address] [place] Basophils/100 WBC (Bld) 0.4 % [facility] Comment on above: Order Comment: Speci men Type: BLOOD SPECIMEN Ordering Facility: [facility] Address: [address] [place] [address] Performed By: #### 5 7021-8 #### [facility] CLIA [id number] [address] [place] [address] [place] Differential cell count method Nom (Bld) Auto Normal [facility] Comment on above: Order Comment: Speci men Type: BLOOD SPECIMEN Ordering Facility: [facility] Address: [address] [place] [address] Performed By: #### 5 7021-8 #### [facility] CLIA [id number] [address] [place] [address] [place] Eosinophils (Bld) [#/Vol] 0.25 10*3/uL Normal <0.46 [facility] Comment on above: Order Comment: Speci men Type: BLOOD SPECIMEN Ordering Facility: [facility] Address: [address] [place] [address] Performed By: #### 5 7021-8 #### [facility] CLIA [id number] [address] [place] [address] [place] Eosinophils/100 WBC (Bld) 1.9 % [facility] Comment on above: Order Comment: Speci men Type: BLOOD SPECIMEN Ordering Facility: [facility] Address: [address] [place] [address] Performed By: #### 5 7021-8 #### [facility] CLIA [id number] [address] [place] [address] [place] Erythrocyte distribution width (RBC) [Ratio] 13.7 % Normal 11.5-15.0 [facility] Comment on above: Order Comment: Speci men Type: BLOOD SPECIMEN Ordering Facility: [facility] Address: [address] [place] [address] Performed By: #### 5 7021-8 #### [facility] CLIA [id number] [address] [place] [address] [place] Hematocrit (Bld) [Volume fraction] 37.8 % Normal 36.0-46.0 [facility] Comment on above: Order Comment: Speci men Type: BLOOD SPECIMEN Ordering Facility: [facility] Address: [address] [place] [address] Performed By: #### 5 7021-8 #### [facility] CLIA [id number] [address] [place] [address] [place] Hemoglobin (Bld) [Mass/Vol] 13.0 g/dL Normal 11.5-15.5 [facility] Comment on above: Order Comment: Speci men Type: BLOOD SPECIMEN Ordering Facility: [facility] Address: [address] [place] [address] Performed By: #### 5 7021-8 #### [facility] CLIA [id number] [address] [place] [address] [place] Immature granulocytes (Bld) [#/Vol] 0.18 10*3/uL High <0.10 [facility] Comment on above: Order Comment: Speci men Type: BLOOD SPECIMEN Ordering Facility: [facility] Address: [address] [place] [address] Performed By: #### 5 7021-8 #### [facility] CLIA [id number] [address] [place] [address] [place] Immature granulocytes/100 WBC (Bld) 1.4 % Normal [facility] Comment on above: Order Comment: Speci men Type: BLOOD SPECIMEN Ordering Facility: [facility] Address: [address] [place] [address] Performed By: #### 5 7021-8 #### [facility] CLIA [id number] [address] [place] [address] [place] Lymphocytes (Bld) [#/Vol] 3.12 10*3/uL Normal 1.00-4.00 [facility] Comment on above: Order Comment: Speci men Type: BLOOD SPECIMEN Ordering Facility: [facility] Address: [address] [place] [address] Performed By: #### 5 7021-8 #### [facility] CLIA [id number] [address] [place] [address] [place] Lymphocytes/100 WBC (Bld) 23.9 % Normal [facility] Comment on above: Order Comment: Speci men Type: BLOOD SPECIMEN Ordering Facility: [facility] Address: [address] [place] [address] Performed By: #### 5 7021-8 #### [facility] CLIA [id number] [address] [place] [address] [place] MCH (RBC) [Entitic mass] 28.3 pg Normal 26.0-34.0 [facility] Comment on above: Order Comment: Speci men Type: BLOOD SPECIMEN Ordering Facility: [facility] Address: [address] [place] [address] Performed By: #### 5 7021-8 #### [facility] CLIA [id number] [address] [place] [address] [place] MCHC (RBC) [Mass/Vol] 34.4 g/dL Normal 30.5-36.0 [facility] Comment on above: Order Comment: Speci men Type: BLOOD SPECIMEN Ordering Facility: [facility] Address: [address] [place] [address] Performed By: #### 5 7021-8 #### [facility] CLIA [id number] [address] [place] [address] [place] MCV (RBC) [Entitic vol] 82.4 fL Normal 80.0-100.0 [facility] Comment on above: Order Comment: Speci men Type: BLOOD SPECIMEN Ordering Facility: [facility] Address: [address] [place] [address] Performed By: #### 5 7021-8 #### [facility] CLIA [id number] [address] [place] [address] [place] Monocytes (Bld) [#/Vol] 0.85 10*3/uL Normal <0.87 [facility] Comment on above: Order Comment: Speci men Type: BLOOD SPECIMEN Ordering Facility: [facility] Address: [address] [place] [address] Performed By: #### 5 7021-8 #### [facility] CLIA [id number] [address] [place] [address] [place] Monocytes/100 WBC (Bld) 6.5 % Normal [facility] Comment on above: Order Comment: Speci men Type: BLOOD SPECIMEN Ordering Facility: [facility] Address: [address] [place] [address] Performed By: #### 5 7021-8 #### [facility] CLIA [id number] [address] [place] [address] [place] Neutrophils (Bld) [#/Vol] 8.61 10*3/uL High 1.45-7.50 [facility] Comment on above: Order Comment: Speci men Type: BLOOD SPECIMEN Ordering Facility: [facility] Address: [address] [place] [address] Performed By: #### 5 7021-8 #### [facility] CLIA [id number] [address] [place] [address] [place] Neutrophils/100 WBC (Bld) 65.9 % Normal [facility] Comment on above: Order Comment: Speci men Type: BLOOD SPECIMEN Ordering Facility: [facility] Address: [address] [place] [address] Performed By: #### 5 7021-8 #### [facility] CLIA [id number] [address] [place] [address] [place] Nucleated RBC (Bld) [#/Vol] 10*3/uL Normal <0.01 [facility] Comment on above: Order Comment: Speci men Type: BLOOD SPECIMEN Ordering Facility: [facility] Address: [address] [place] [address] Performed By: #### 5 7021-8 #### [facility] CLIA [id number] [address] [place] [address] [place] Nucleated RBC/100 WBC (Bld) [Ratio] 0.0 /100 WBC Normal [facility] Comment on above: Order Comment: Speci men Type: BLOOD SPECIMEN Ordering Facility: [facility] Address: [address] [place] [address] Performed By: #### 5 7021-8 #### [facility] CLIA [id number] [address] [place] [address] [place] Platelet mean volume (Bld) [Entitic vol] 10.1 fL Normal 9.0-12.7 [facility] Comment on above: Order Comment: Speci men Type: BLOOD SPECIMEN Ordering Facility: [facility] Address: [address] [place] [address] Performed By: #### 5 7021-8 #### [facility] CLIA [id number] [address] [place] [address] [place] Platelets (Bld) [#/Vol] 239 10*3/uL Normal 150-400 [facility] Comment on above: Order Comment: Speci men Type: BLOOD SPECIMEN Ordering Facility: [facility] Address: [address] [place] [address] Performed By: #### 5 7021-8 #### [facility] CLIA [id number] [address] [place] [address] [place] RBC (Bld) [#/Vol] 4.59 10*6/uL Normal 3.90-5.20 [facility] Comment on above: Order Comment: Speci men Type: BLOOD SPECIMEN Ordering Facility: [facility] Address: [address] [place] [address] Performed By: #### 5 7021-8 #### [facility] CLIA [id number] [address] [place] [address] [place] WBC (Bld) [#/Vol] 13.06 10*3/uL High 3.70-11.00 [facility] Comment on above: Order Comment: Speci men Type: BLOOD SPECIMEN Ordering Facility: [facility] Address: [address] [place] [address] Performed By: #### 5 7021-8 #### [facility] CLIA [id number] [address] [place] [address] [facility] Comprehensive metabolic 2000 panelon 06-16-2025 Albumin [Mass/Vol] 4.2 g/dL Normal 3.9-4.9 [facility] Comment on above: Order Comment: Speci men Type: BLOOD SPECIMEN Ordering Facility: [facility] Address: [address] [place] [address] Performed By: #### 2 4323-8 #### [facility] CLIA [id number] [address] [place] [address] [place] ALP [Catalytic activity/Vol] 76 U/L Normal 34-123 [facility] Comment on above: Order Comment: Speci men Type: BLOOD SPECIMEN Ordering Facility: [facility] Address: [address] [place] [address] Performed By: #### 2 4323-8 #### [facility] CLIA [id number] [address] [place] [address] [place] ALT [Catalytic activity/Vol] 20 U/L Normal 7-38 [facility] Comment on above: Order Comment: Speci men Type: BLOOD SPECIMEN Ordering Facility: [facility] Address: [address] [place] [address] Performed By: #### 2 4323-8 #### [facility] CLIA [id number] [address] [place] [address] [place] Anion gap [Moles/Vol] 11 mmol/L Normal 8-15 [facility] Comment on above: Order Comment: Speci men Type: BLOOD SPECIMEN Ordering Facility: [facility] Address: [address] [place] [address] Performed By: #### 2 4323-8 #### [facility] CLIA [id number] [address] [place] [address] [place] AST [Catalytic activity/Vol] 23 U/L Normal 13-35 [facility] Comment on above: Order Comment: Speci men Type: BLOOD SPECIMEN Ordering Facility: [facility] Address: [address] [place] [address] Result Comment: Resu lts may be falsely increased due to interference by hemolysis. Suggest reorder as clinically indicated. Performed By: #### 2 4323-8 #### [facility] CLIA [id number] [address] [place] [address] [place] Bilirubin [Mass/Vol] 0.3 mg/dL Normal 0.2-1.3 [facility] Comment on above: Order Comment: Speci men Type: BLOOD SPECIMEN Ordering Facility: [facility] Address: [address] [place] [address] Performed By: #### 2 4323-8 #### [facility] CLIA [id number] [address] [place] [address] [place] Calcium [Mass/Vol] 9.7 mg/dL Normal 8.5-10.2 [facility] Comment on above: Order Comment: Speci men Type: BLOOD SPECIMEN Ordering Facility: [facility] Address: [address] [place] [address] Performed By: #### 2 4323-8 #### [facility] CLIA [id number] [address] [place] [address] [place] Chloride [Moles/Vol] 107 mmol/L Normal 98-107 [facility] Comment on above: Order Comment: Speci men Type: BLOOD SPECIMEN Ordering Facility: [facility] Address: [address] [place] [address] Performed By: #### 2 4323-8 #### [facility] CLIA [id number] [address] [place] [address] [place] CO2 [Moles/Vol] 22 mmol/L Normal 22-30 [facility] Comment on above: Order Comment: Speci men Type: BLOOD SPECIMEN Ordering Facility: [facility] Address: [address] [place] [address] Performed By: #### 2 4323-8 #### [facility] CLIA [id number] [address] [place] [address] [place] Creatinine [Mass/Vol] 0.61 mg/dL Normal 0.58-0.96 [facility] Comment on above: Order Comment: Speci men Type: BLOOD SPECIMEN Ordering Facility: [facility] Address: [address] [place] [address] Performed By: #### 2 4323-8 #### [facility] CLIA [id number] [address] [place] [address] [place] eGFRcr SerPlBld CKD-EPI 2020 120 mL/min/1.73m??? Normal >=60 [facility] Comment on above: Order Comment: Speci men Type: BLOOD SPECIMEN Ordering Facility: [facility] Address: [address] [place] [address] Result Comment: Claudia mated Glomerular Filtration Rate [...] GFR. Performed By: #### 2 4323-8 #### [facility] CLIA [id number] [address] [place] [address] [place] Glucose [Mass/Vol] 94 mg/dL Normal 74-99 [facility] Comment on above: Order Comment: Speci men Type: BLOOD SPECIMEN Ordering Facility: [facility] Address: [address] [place] [address] Result Comment: The [place] [employer] (ADA) provides guidance for cutoff [...] Standards of Medical Care in Diabetes 2016, [place] [employer]. Diabetes Care. 2016.39(Suppl 1). Performed By: #### 2 4323-8 #### [facility] CLIA [id number] [address] [place] [address] [place] Potassium [Moles/Vol] 4.0 mmol/L Normal 3.7-5.1 [facility] Comment on above: Order Comment: Monica tsang Type: BLOOD SPECIMEN Ordering Facility: [facility] Address: [address] [place] [address] Performed By: #### 2 4323-8 #### [facility] CLIA [id number] [address] [place] [address] [place] Protein [Mass/Vol] 7.2 g/dL Normal 6.3-8.0 [facility] Comment on above: Order Comment: Monica tsang Type: BLOOD SPECIMEN Ordering Facility: [facility] Address: [address] [place] [address] Performed By: #### 2 4323-8 #### [facility] CLIA [id number] [address] [place] [address] [place] Sodium [Moles/Vol] 140 mmol/L Normal 136-144 [facility] Comment on above: Order Comment: Gogoi sharan Type: BLOOD SPECIMEN Ordering Facility: [facility] Address: [address] [place] [address] Performed By: #### 2 4323-8 #### [facility] CLIA [id number] [address] [place] [address] [place] Urea nitrogen [Mass/Vol] 8 mg/dL Normal 7-21 [facility] Comment on above: Order Comment: Gogoi sharan Type: BLOOD SPECIMEN Ordering Facility: [facility] Address: [address] [place], [place] [address] [id number] Performed By: #### 2 4323-8 #### [facility] CLIA [id number] [address] [place] [address] [place] ED PROV NOTEon 06-16-2025 ED PROV NOTE HNO ID: [id number] Author: JEN ROBERTSON DO Service: ? Author [...] when she moves. History provided by: Patient cook helper juice used: No PAST MEDICAL HISTORY Diagnosis Date [...] 08/07/2013 Bipolar 1 disorder (HCC) 02/14/2018 Seeing [facility] Behavioral Medicine as of 01/2018 Bipolar [...] Mother other (more content not included)... Normal [facility] HCG QUALITATIVEon 06-16-2025 HCG, QUALITATIVE Negative Normal Negative [facility] Comment on above: Order Comment: Speci men Type: BLOOD SPECIMEN Ordering Facility: [facility] Address: [address] [place] [address] Performed By: #### H CG #### [facility] CLIA [id number] [address] [place] [address] [place] Urinalysis complete panel (U )on 06-16-2025 Bacteria LM.HPF (Urine sed) [#/Area] Rare Abnormal None Seen [facility] Comment on above: Order Comment: Speci men Type: URINE SPECIMENOrdering Facility: [facility] Address: [address] [place] [address] Performed By: #### 2 4356-8 ####[facility] [id number] [place] [address] [place] Bilirubin Ql (U) Negative Normal Negative [facility] Comment on above: Order Comment: Speci men Type: URINE SPECIMENOrdering Facility: [facility] Address: [address] [place] [address] Performed By: #### 2 4356-8 ####[facility] [id number] [place] [address] [place] Clarity (Unsp spec) Clear Normal Clear [facility] Comment on above: Order Comment: Speci men Type: URINE SPECIMENOrdering Facility: [facility] Address: [address] [place] [address] Performed By: #### 2 4356-8 ####[facility] [id number] [place] [address] [place] Color (U) Yellow Normal Yellow [facility] Comment on above: Order Comment: Speci men Type: URINE SPECIMENOrdering Facility: [facility] Address: [address] [place] [address] Performed By: #### 2 4356-8 ####[facility] [id number] [place] [address] [place] Epithelial cells LM.HPF (Urine sed) [#/Area] Few Normal [facility] Comment on above: Order Comment: Speci men Type: URINE SPECIMENOrdering Facility: [facility] Address: [address] [place] [address] Performed By: #### 2 4356-8 ####[facility] [id number] [place] [address] [place] Glucose Test strip (U) [Mass/Vol] Negative Normal Negative [facility] Comment on above: Order Comment: Speci men Type: URINE SPECIMENOrdering Facility: [facility] Address: [address] [place] [address] Performed By: #### 2 4356-8 ####[facility] [id number] [place] [address] [place] Hemoglobin Ql (U) 3+ Abnormal Negative [facility] Comment on above: Order Comment: Speci men Type: URINE SPECIMENOrdering Facility: [facility] Address: [address] [place] [address] Performed By: #### 2 4356-8 ####[facility] [id number] [address] [place] Ketones Ql (U) Negative Normal Negative [facility] Comment on above: Order Comment: Speci men Type: URINE SPECIMENOrdering Facility: [facility] Address: [address] [place] [address] Performed By: #### 2 4356-8 ####[facility] [id number] [address] Leukocyte esterase Test strip Ql (U) Negative Normal Negative [facility] Comment on above: Order Comment: Speci men Type: URINE SPECIMENOrdering Facility: [facility] Address: [address] [place] [address] Performed By: #### 2 4356-8 ####[facility] [id number] [place] [address] [place] Nitrite Ql (U) Negative Normal Negative [facility] Comment on above: Order Comment: Speci men Type: URINE SPECIMENOrdering Facility: [facility] Address: [address] [place] [address] Performed By: #### 2 4356-8 ####[facility]IA [id number] [place] [address] [place] pH (U) 6.5 [pH] Normal 5.0-8.0 [facility] Comment on above: Order Comment: Speci men Type: URINE SPECIMENOrdering Facility: [facility] Address: [address] [place] [address] Performed By: #### 2 4356-8 ####[facility] [id number] [address] STATES [facility] Protein (U) [Mass/Vol] Negative Normal Negative [facility] Comment on above: Order Comment: Speci men Type: URINE SPECIMENOrdering Facility: [facility] Address: [address] [place] [address] Performed By: #### 2 4356-8 ####[facility] [id number] [address] STATES [facility] RBC LM.HPF (Urine sed) [#/Area] /[HPF] Abnormal 0-3 /HPF [facility] Comment on above: Order Comment: Speci men Type: URINE SPECIMENOrdering Facility: [facility] Address: [address] [place] [address] Performed By: #### 2 4356-8 ####[facility] [id number] [address] STATES [facility] Specific gravity (U) [Rel density] 1.020 Normal 1.005-1.030 [facility] Comment on above: Order Comment: Speci men Type: URINE SPECIMENOrdering Facility: [facility] Address: [address] [place] [address] Performed By: #### 2 4356-8 ####[facility] [id number] [place] [address] [facility] Urobilinogen Ql (U) 0.2 EU/dL Normal 0.2-1.0 EU/dL [facility] Comment on above: Order Comment: Speci men Type: URINE SPECIMENOrdering Facility: [facility] Address: [address] [place] [address] Performed By: #### 2 4356-8 ####[facility] [id number] [address] STATES [facility] WBC LM.HPF (Urine sed) [#/Area] 6-10 /HPF Abnormal 0-5 /HPF [facility] Comment on above: Order Comment: Speci men Type: URINE SPECIMENOrdering Facility: [facility] Address: [address] [place] [address] Performed By: #### 2 4356-8 ####[facility] [id number] [address] OF [facility] CNOVon 06-15-2025 CNOV Office Visit (URUN) GRETA ANDRES ([id number]) 1990 F Date Time Provider Department 06/15/25 [...] c/o or concerns. Verbalized understanding. DEANDRE BassGreta goff, 06/15/2025 2:15 PM Signed [facility] [place] ESTABLISHED PATIENT NOTE/HISTORY AND PHYSICAL PATIENT: Greta [...] ) HISTORY OF PRESENT ILLNESS: Recording using Admaxim software for draft documentation of the visit was discussed with the patient/authorized manufacturers representative; all questions welcomed and answered. Patient/authorized manufacturers representative agreed to proceed The patient was [...] Lupus (systemic lupus erythematosus) ([facility]), Migraine without aura and without status migrainosus, not intractable (05/20/2017), Multiple thyroid nodules (07/26/2019), Neoplasm of uncertain behavior of skin of back, Obesity, Class I, BMI 30-34.9 (03/03/2023), Other and unspecified ovarian cyst, Other joint derangement, not elsewhere classified, lower leg (08/20/2008), Papillary thyroid carcinoma ([facility]) (07/21/2019), PMH - PAST MEDICAL HISTORY [...] albuterol hfa, levothyroxine (more content not included)... [facility] CT Abdomen and Pelvis WO con traston 06-15-2025 IMPRESSION: Nonobstructing bilateral renal calculi. Resource Forester: EITAN Transcribe Date/Time: Jun 15 2025 12:57P Dictated by : SRIDHAR ROSAS MD This examination was interpreted and the report reviewed and electronically signed by: SRIDHAR ROSAS MD on Jun 15 2025 1:02PM [facility] * * *Final Report* * * DATE OF EXAM: Jun 15 2025 12:46PM [facility] 0529 - CT FLANK WO IVCON / [...] thorax: Unremarkable. Localizer images: No additional findings. [facility] Provider, [facility] - 06/15/2025 * * *Final Report* * * DATE OF EXAM: Jun 15 2025 12:46PM [facility] 0529 - CT FLANK WO IVCON / [...] findings. IMPRESSION IMPRESSION: Nonobstructing bilateral renal calculi. Resource Forester: PSCB Transcribe Date/Time: Jun 15 2025 12:57P Dictated by : SRIDHAR ROSAS MD This examination was interpreted and the report reviewed and electronically signed by: SRIDHAR ROSAS MD on Jun 15 2025 1:02PM EST [facility] Radiology Study observation (narrative) [facility] CT Abdomen and Pelvis WO con trastOrdered By: Ccf Provider on 06-15-[address] [facility] CT FLANK WO IVCONon 06-15-20 CT FLANK WO IVCON * * *Final Report* * * DATE OF EXAM: Jun 15 2025 12:46PM [facility] 0529 - CT FLANK WO IVCON / [...] additional findings. IMPRESSION: Nonobstructing bilateral renal calculi. Resource Forester: PSCB Transcribe Date/Time: Jun 15 2025 12:57P Dictated by : SRIDHAR ROSAS MD This examination was interpreted and the report reviewed and electronically signed by: SRIDHAR ROSAS MD on Jun 15 2025 1:02PM EST [id number] Normal [facility] BLADDER SCANon 06-07-2025 PVR = 0 ml [facility] Bacteria Ur Culton 5 Bacteria identified Cx Nom (U) CULTURE, URINE: No growth (<1,000 CFU/ml) Normal [facility] Comment on above: Performed By: #### 6 30-4 #### [facility] CLIA [id number] [address] [place] [address] [place] CNOVon 06-07-2025 CNOV Office Visit (UROLAE ) GRETA ANDRES ([id number]) 1990 F Date Time Provider Department 06/07/25 1:00 PM SARAH MIRAMONTES During your visit today, we recorded the following information about you: Pulse Blood pressure Height 88/minute 159/98 1.651 m Sarah Miramontes APRN.METAL DRILL OPERATOR 06/07/2025 2:10 PM Signed [facility] [place] [facility] [place] UROL [place] [employer] NEW PATIENT UROLOGY VISIT 06/07/2025 10:21 AM PATIENT NAME: Greta Andres DATE OF : 1990 TODAY'S DATE: 06/07/2025 Referring Provider: Nagi Red [address] [place] [address] Referring Note Reviewed: Yes Chief Complaint: kidney stones, right flank pain History of Present Illness: Ms. Andres is a 35 year old female who presents to the office regarding kidney stones and right flank pain since February 2025. She went to [facility] ER on 03/18/25 Found to have bilateral [...] 08/07/2013 Bipolar 1 disorder (HCC) 02/14/2018 Seeing [facility] Behavioral Medicine as of 01/2018 Bipolar [...] given to (more content not included)... Normal [facility] CNPNon 06-07-2025 [place] Telephone (MARISELA) GRETA ANDRES ([id number]) 1990 F Date Time Provider Department 06/07/25 SARAH MIRAMONTES During your visit today, we recorded the following information about you: Linnette Douglas MA 06/07/2025 2:05 PM Signed Received call from [facility] pharmacy - they unable to fill oral Ketorolac 10 mg. Toradol oral has to be prescribed as a continuation of care from IM or IV. Call back to [facility] pharmacy - [phone] KAUSHAL Naylor Donna, MA 06/07/2025 2:09 PM Signed Spoke with patient advised pharmacy unable to fill oral Toradol. She will continue Tylenol and Ibuprofen for pain management. KAUSHAL Naylor Alison, APRN.[facility] 06/07/2025 2:10 PM Signed Thank you. Domenica Baker MA 06/08/2025 10:13 AM Signed [facility] pharmacy called and stated that are canceling the medication Ketorolac, because it is not given in office via IV or IM, they daniel asking if another medication can be called into pharmacy. Please advise. KAUSHAL Novoa Alison, APRN.METAL DRILL OPERATOR 06/08/2025 11:05 AM Signed Patient will take [...] Date Reviewed: 06/07/2025 Reviewed by: Sarah Miramontes APRN.METAL DRILL OPERATOR - Fully Assessed Reason for Visit: [...] for screeni (more content not included)... Normal [facility] UA DIP, URINE (POC)on 2024 BILIRUBIN UA (POCT) Negative Negative [facility] CLARITY UA (POCT) Clear [facility] COLOR UA (POCT) Yellow [facility] GLUCOSE UA (POCT) Negative Negative mg/dL [facility] Hemoglobin Ql (U) Trace-intact Abnormal Negative [facility] Interpretation and review of laboratory results Abnormal [facility] KETONE UA (POCT) Negative Negative mg/dL [facility] LEUKOCYTES UA (POCT) Trace Abnormal Negative [facility] NITRITE UA (POCT) Negative Negative [facility] PH UA (POCT) 6 4.5 - 8.[address] [facility] Protein Ql (U) Trace Abnormal Negative mg/dL [facility] SPECIFIC GRAVITY UA (POCT) 1.02 1.005 - 1.[address] [facility] UROBILINOGEN UA (POCT) 0.2 Normal E.U./dL [facility] Location:[facility] Urology Dept, [address] [place] [address], [address] [facility] POINT OF CARE [facility] Urinalysis complete panel (U )on 06-07-2025 Bilirubin Ql (U) Negative Negative [facility] Calcium Oxalate Crystals Few Abnormal None Seen /HPF [facility] Clarity (Unsp spec) Clear Clear [facility] Color (U) Yellow yellow [facility] Epithelial cells LM.HPF (Urine sed) [#/Area] Few Abnormal None Seen /HPF [facility] Glucose Test strip (U) [Mass/Vol] Negative Trace, Negative [facility] Hemoglobin Ql (U) Negative Negative, Trace [facility] Interpretation and review of laboratory results Abnormal [facility] Ketones Ql (U) Negative Negative, Trace [facility] Leukocyte esterase Test strip Ql (U) 25 Ari/uL Negative, 25 Ari/uL [facility] Nitrite Ql (U) Negative Negative [facility] pH (U) 6 [pH] 5.0 - 8.0 [facility] Protein (U) [Mass/Vol] Trace Trace, Negative [facility] RBC LM.HPF (Urine sed) [#/Area] 3-5 /HPF Abnormal 0-3 /HPF [facility] Specific gravity (U) [Rel density] 1.023 1.005 - 1.[address] [facility] Urobilinogen Ql (U) Normal Normal [facility] WBC LM.HPF (Urine sed) [#/Area] 0-5 /HPF 0-5 /HPF [facility] Bilirubin Ql (U) Negative Normal Negative [facility] Comment on above: Order Comment: Speci men Type: URINE SPECIMEN Ordering Facility: [facility] Address: [address] [place] [address] Performed By: #### 2 4356-8 #### [facility] CLIA [id number] [address] CALCIUM OXALATE CRYSTALS (UA) Few Abnormal None Seen [facility] Comment on above: Order Comment: Speci men Type: URINE SPECIMEN Ordering Facility: [facility] Address: [address] [place] [address] Performed By: #### 2 4356-8 #### [facility] CLIA [id number] [address] [place] Clarity (Unsp spec) Clear Normal Clear [facility] Comment on above: Order Comment: Speci men Type: URINE SPECIMEN Ordering Facility: [facility] Address: [address] [place] [address] Performed By: #### 2 4356-8 #### [facility] CLIA [id number] [address] OF [facility] Color (U) Yellow Normal yellow [facility] Comment on above: Order Comment: Speci men Type: URINE SPECIMEN Ordering Facility: [facility] Address: [address] [place] [address] Performed By: #### 2 4356-8 #### [facility] CLIA [id number] [address] Epithelial cells LM.HPF (Urine sed) [#/Area] Few Normal [facility] Comment on above: Order Comment: Speci men Type: URINE SPECIMEN Ordering Facility: [facility] Address: [address] [place] [address] Result Comment: Few Performed By: #### 2 4356-8 #### [facility] CLIA [id number] [address] Glucose Test strip (U) [Mass/Vol] Negative Normal Trace, Negative [facility] Comment on above: Order Comment: Speci men Type: URINE SPECIMEN Ordering Facility: [facility] Address: [address] [place] [address] Performed By: #### 2 4356-8 #### [facility] CLIA [id number] [address] [place] Hemoglobin Ql (U) Negative Normal Negative, Trace [facility] Comment on above: Order Comment: Speci men Type: URINE SPECIMEN Ordering Facility: [facility] Address: [facility] [place] [address] Performed By: #### 2 4356-8 #### [facility] CLIA [id number] [address] [place] Ketones Ql (U) Negative Normal Negative, Trace [facility] Comment on above: Order Comment: Speci men Type: URINE SPECIMEN Ordering Facility: [facility] Address: [address] [place] [address] Performed By: #### 2 4356-8 #### [facility] CLIA [id number] [address] Leukocyte esterase Test strip Ql (U) 25 Ari/uL Normal Negative, 25 Ari/uL [facility] Comment on above: Order Comment: Speci men Type: URINE SPECIMEN Ordering Facility: [facility] Address: [address] [place] [address] Performed By: #### 2 4356-8 #### [facility] CLIA [id number] [address] [place] Nitrite Ql (U) Negative Normal Negative [facility] Comment on above: Order Comment: Speci men Type: URINE SPECIMEN Ordering Facility: [facility] Address: [address] [place] [address] Performed By: #### 2 4356-8 #### [facility] CLIA [id number] [address] pH (U) 6.0 [pH] Normal 5.0-8.0 [facility] Comment on above: Order Comment: Speci men Type: URINE SPECIMEN Ordering Facility: [facility] Address: [address] [place] [address] Performed By: #### 2 4356-8 #### [facility] CLIA [id number] [address] Protein (U) [Mass/Vol] Trace Normal Trace, Negative [facility] Comment on above: Order Comment: Speci men Type: URINE SPECIMEN Ordering Facility: [facility] Address: [address] [place] [address] Performed By: #### 2 4356-8 #### [facility] CLIA [id number] [address] RBC LM.HPF (Urine sed) [#/Area] 3-5 /HPF Abnormal 0-3 /HPF [facility] Comment on above: Order Comment: Speci men Type: URINE SPECIMEN Ordering Facility: [facility] Address: [address] [place] [address] Performed By: #### 2 4356-8 #### [facility] CLIA [id number] [address] Specific gravity (U) [Rel density] 1.023 Normal 1.005-1.030 [facility] Comment on above: Order Comment: Speci men Type: URINE SPECIMEN Ordering Facility: [facility] Address: [address] [place] [address] Performed By: #### 2 4356-8 #### [facility] CLIA [id number] [address] Urobilinogen Ql (U) Normal Normal Normal [facility] Comment on above: Order Comment: Speci men Type: URINE SPECIMEN Ordering Facility: [facility] Address: [address] [place] [address] Performed By: #### 2 4356-8 #### [facility] CLIA [id number] [address] [place] WBC LM.HPF (Urine sed) [#/Area] 0-5 /HPF Normal 0-5 /HPF [facility] Comment on above: Order Comment: Speci men Type: URINE SPECIMEN Ordering Facility: [facility] Address: [address] [place] [address] Performed By: #### 2 4356-8 #### [facility] CLIA [id number] 1 [place] [id number] [place] Orthopedic Visit Reporton Orthopedic Visit Report [facility] [address] [place] [address] [address] [place] [address] OFFICE VISIT Date of Service: 05/21/25 MR#: [id number] Acct: [id number] Name: GRETA ANDRES Rep #: [id number] : 1990 Provider: Dr. Thaddeus roman MD Age/Sex: 35/F Location: [facility] Status: Signed Intake Vital Signs 04/17/25 15:02 [...] driving. 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 Has not tried any treatments no past [...] Tunnel Syndr (more content not included)... [facility] US KIDNEY/BLADDERon 05-21-20 US KIDNEY/BLADDER * [...] IMPRESSION: Bilateral nephrolithiasis. No hydronephrosis. Hepatic steatosis. Resource Forester: EITAN Transcribe Date/Time: May 23 2025 4:50A Dictated by : DUC JONES MD This examination was interpreted and the report reviewed and electronically signed by: DUC JONES MD on May 23 2025 4:53AM EST [id number] Normal [facility] 05-17-2025 [facility] Telephone ([facility]) GRETA ANDRES ([id number]) 1990 F Date Time Provider Department 05/17/25 NAGI RED [facility] During your visit today, we recorded the [...] MC or can call pt. Pt uses [employer]. 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 Normal [facility] 05-14-2025 CNPN Telephone (FAMPWS) MCKENNA,GRETA ([id number]) 1990 F Date Time Provider Department 05/14/25 [facility] RED [facility] During your visit today, we recorded the [...] 9:32 AM Signed Pt was sent a [employer] message notifying her that PCP notified MA [...] examination [Z01.41*04/25/2024 (more content not included)... Normal [facility] CNPNon 05-09-2025 CNPN Telephone (FAMPWS) GRETA ANDRES ([id number]) 1990 F Date Time Provider Department 05/09/25 JACE WALLIS [facility] During your visit today, we recorded the [...] complete PE set up in jul. KAUSHAL Mazariegos, Nagi Barrett MD 05/15/2025 3:57 PM Signed Yes needs a f/u BP check in 2 weeks and a complete PE scheduled in jul 2025. Phil Millan MA 05/16/2025 7:46 AM Signed Pt has been sent a [employer] message notifying her that she needs a BP follow up from 05/08/25 with [facility]. Will wait pt response via [employer]. Will keep this encounter open until appt is made. Watch [employer] message to make sure viewed by pt. [...] Gastroparesis [K31.84] (more content not included)... Normal [facility] CNOVon 05-08-2025 CNOV Office Visit (FAMPWS ) GRETA ANDRES ([id number]) 1990 F Date Time Provider Department 05/08/25 8:40 AM NAGI REDWS During your visit today, we recorded the [...] improvement to 34.7. 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 No surgical correction done. The father of the baby's brother born with a hole in his heart. Surgical correction was done. 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 Normal [facility] UA DIP, URINE (POC)on 2024 BILIRUBIN UA (POCT) Negative Negative [facility] CLARITY UA (POCT) Clear [facility] COLOR UA (POCT) Yellow [facility] GLUCOSE UA (POCT) Negative Negative mg/dL [facility] Hemoglobin Ql (U) Negative Negative [facility] Interpretation and review of laboratory results Abnormal [facility] KETONE UA (POCT) Negative Negative mg/dL [facility] LEUKOCYTES UA (POCT) Negative Negative [facility] NITRITE UA (POCT) Negative Negative [facility] PH UA (POCT) 6.5 4.5 - 8.[address] [facility] Protein Ql (U) 100 mg/dL Abnormal Negative [facility] SPECIFIC GRAVITY UA (POCT) 1.025 1.005 - 1.[address] [facility] UROBILINOGEN UA (POCT) 0.2 Normal E.U./dL [facility] Location:[address], [address] [place] [address] POINT OF CARE [facility] T4 Free SerPl-mCncon 025 Free T4 [Mass/Vol] 1.2 ng/dL Normal 0.9-1.[address] [facility] Comment on above: Order Comment: Speci men Type: BLOOD SPECIMENOrdering Facility: [facility] Address: [address] [place] [address] [place] [address] Performed By: #### 3 024-7, 3016-3 ####[facility] LABCLIA [id number] [place] [address] [place] TSH SerPl-aCncon 05-02-2025 TSH Qn 34.700 m[IU]/L High 0.270-4.200 [facility] Comment on above: Order Comment: Speci men Type: BLOOD SPECIMENOrdering Facility: [facility] Address: [address] [place] [address] Result Comment: If t he patient is , TSH reference range varies by gestational period: First Trimester (weeks 9-12): 0.180-2.990 mIU/L Second Trimester: 0.110-3.980 mIU/L Third Trimester: 0.480-4.710 mIU/L Juanjo Broussard et al. A Practical Approach for the Verifications and Determination of Site- and Trimester-Specific Reference Intervals for Thyroid Function tests in . Thyroid, 2019:29:3:412-420. Shilo Long et al. 2017 Guidelines of the [place] Thyroid Association for the Diagnosis and Management of Thyroid Disease during and the . Thyroid, 2017:27:3:315-389. Performed By: #### 3 024-7, 3016-3 ####[facility] LABCLIA [id number] [place] [address] [place] XR CHEST 2V [...] tissues: Unremarkable. IMPRESSION: No acute radiographic abnormality. Resource Forester: EITAN Transcribe Date/Time: May 02 2025 3:19P Dictated by : SRIDHAR ROSAS MD This examination was interpreted and the report reviewed and electronically signed by: SRIDHAR ROSAS MD on May 02 2025 3:20PM EST [id number] Normal [facility] XR Chest PA and Lateralon IMPRESSION: No acute radiographic abnormality. Resource Forester: EITAN Transcribe Date/Time: May 02 2025 3:19P [...] soft tissues: Unremarkable. DIVISION OF RADIOLOGY Provider, [facility] - 05/02/2025 * * *Final Report* * [...] Unremarkable. IMPRESSION IMPRESSION: No acute radiographic abnormality. Resource Forester: EITAN Transcribe Date/Time: May 02 2025 3:19P Dictated by : SRIDHAR ROSAS MD This examination was interpreted and the report reviewed and electronically signed by: SRIDHAR ROSAS MD on May 02 2025 3:20PM EST [facility] Radiology Study observation (narrative) [facility] XR Chest PA and LateralOrder ed By: Ccf Provider on 05-02-[address] [facility] Matilda 04-26-2025 CNPN Telephone (FAMSeWS) MCKENNAGRETA ([id number]) 1990 F Date Time Provider Department 04/26/25 [...] we can pull the MRCP report off [facility] system? If not can we contact DR. 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 Normal [facility] MRCP Abdomen without Contras ton 04-24-2025 MRCP Abdomen without Contrast [facility] [address] [place] [address] MRCP Abdomen without Contrast MR#: [id number] Acct: [id number] Name: MCKENNAGRETAHEIDI JOHNSON Rep #: [id number] : 1990 F 35 From: Louie Godoy MD PCP: Dr. Nagi Red MD Status: DEP CLI Study: MRCP Abdomen without Contrast Date of Exam: Exam# [id number] Ordering Dr: Taylor Samuel ADDENDUM by Dr. [...] Findings: Lung bases: Trace bilateral pleural effusions, esufs-pqmwukh-kgqx-left.. Spleen: Unremarkable. Adrenals: Unremarkable. Kidneys and ureters: [...] laboratory analysis. 2. Trace bilateral pleural effusions, qypds-qipcjwb-seos-left. Reading Location: [facility] CC: Dr. Nagi Red MD; JERI Marquez Resource Forester: Signed Normal [facility] Abdomen/Pelvis W IV Cont ONL Yon 04-17-2025 Abdomen/Pelvis W IV Cont ONLY [facility] [address] [place] [address] Abdomen/Pelvis W IV Cont ONLY MR#: [id number] Acct: [id number] Name: GRTEA ANDRES Rep #: [id number] : 1990 F 35 From: Damaris Hernandez DO PCP: Dr. Nagi Red MD Status: REG ER Study: Abdomen/Pelvis W IV Cont ONLY Date of Exam: Exam# [id number] Ordering Dr: Ludin Adams DO PROCEDURE: ABDOMEN/PELVIS [...] Nagi Red MD; Dr. Ludin Adams DO Resource Forester: Signed Normal [facility] CBC W/Diff, Automatedon 03-23 Absolute Lymph 1.57 X10 3/uL Normal 0.83-4.51 [facility] Comment on above: Performed By: #### L 501.2450, L700.6800 #### [facility] [address] [place], [address] Absolute Neut 8.8 X10 3/uL High 2.0-7.7 [facility] Comment on above: Performed By: #### L 501.2450, L700.6800 #### [facility] [address] [place], [address] Basophils/100 WBC (Bld) 0.3 % Normal 0-1 [facility] Comment on above: Performed By: #### L 501.2450, L700.6800 #### [facility] [address] [place], [address] Eosinophils/100 WBC (Bld) 0.8 % Normal 0-5 [facility] Comment on above: Performed By: #### L 501.2450, L700.6800 #### [facility] [address] [place], [address] Erythrocyte distribution width (RBC) [Ratio] 14.2 % Normal 11.6-14.6 [facility] Comment on above: Performed By: #### L 501.2450, L700.6800 #### [facility] [address] [place], [address] Hematocrit (Bld) [Volume fraction] 44.0 % Normal 37-47 [facility] Comment on above: Performed By: #### L 501.2450, L700.6800 #### [facility] [address] [place], [address] Hemoglobin (Bld) [Mass/Vol] 15.2 g/dL High 12.0-15.0 [facility] Comment on above: Performed By: #### L 501.2450, L700.6800 #### [facility] [address] [place], [address] IG% 0.800 Normal 0.0-0.9 [facility] Comment on above: Result Comment: IG% - Immature Granulocytes (promyelocytes, myelocytes and metamyelocytes) > 1% indicates that a LEFT SHIFT is Present. Performed By: #### L 501.2450, L700.6800 #### [facility] [address] [place], [address] Lymphocytes/100 WBC (Bld) 14.1 % Low 19-41 [facility] Comment on above: Performed By: #### L 501.2450, L700.6800 #### [facility] [address] [place], [address] MCH (RBC) [Entitic mass] 28.2 pg Normal 27.0-32.0 [facility] Comment on above: Performed By: #### L 501.2450, L700.6800 #### [facility] [address] [place], [address] MCHC (RBC) [Mass/Vol] 34.5 g/dL Normal 32-36 [facility] Comment on above: Performed By: #### L 501.2450, L700.6800 #### [facility] [address] [place], [address] MCV (RBC) [Entitic vol] 81.6 fL Normal 81-99 [facility] Comment on above: Performed By: #### L 501.2450, L700.6800 #### [facility] [address] [place], [address] Monocytes/100 WBC (Bld) 5.0 % Normal 0-10 [facility] Comment on above: Performed By: #### L 501.2450, L700.6800 #### [facility] [address] [place], [address] Neutrophils/100 WBC (Bld) 79.0 % High 47-70 [facility] Comment on above: Performed By: #### L 501.2450, L700.6800 #### [facility] [address] [place], [address] Nucleated RBC (Bld) [#/Vol] 0 10*3/uL Normal 0-5 [facility] Comment on above: Performed By: #### L 501.2450, L700.6800 #### [facility] [address] [place], [address] Platelet mean volume (Bld) [Entitic vol] 9.9 fL Normal 6.2-12.0 [facility] Comment on above: Performed By: #### L 501.2450, L700.6800 #### [facility] [address] [place], [address] Platelets (Bld) [#/Vol] 246 10*3/uL Normal 150-450 [facility] Comment on above: Performed By: #### L 501.2450, L700.6800 #### [facility] [address] [place], [address] RBC (Bld) [#/Vol] 5.39 10*6/uL Normal 4.2-5.4 [facility] Comment on above: Performed By: #### L 501.2450, L700.6800 #### [facility] [address] [place], [address] RDW SD 41.6 fl Normal 35.1-43.9 [facility] Comment on above: Performed By: #### L 501.2450, L700.6800 #### [facility] [address] [place], [address] WBC (Bld) [#/Vol] 11.1 10*3/uL High 4.4-11.0 [facility] Comment on above: Performed By: #### L 501.2450, L700.6800 #### [facility] [address] [place], [address] Comprehensive Metabolic Prof [facility] 04-17-2025 Albumin [Mass/Vol] 4.6 g/dL Normal 3.5-5.0 [facility] Comment on above: Performed By: #### L 101.9900, L500.4050, L501.6710, L100.0100 #### [facility] [address] [place], [address] Albumin/Globulin [Mass ratio] 1.3 {ratio} Normal 0.9-2.4 [facility] Comment on above: Performed By: #### L 101.9900, L500.4050, L501.6710, L100.0100 #### [facility] [address] [place], [address] ALK PHOS 90 U/L Normal 35-104 [facility] Comment on above: Performed By: #### L 101.9900, L500.4050, L501.6710, L100.0100 #### [facility] [address] [place], [address] ALT [Catalytic activity/Vol] 20 U/L Normal <=34 [facility] Comment on above: Performed By: #### L 101.9900, L500.4050, L501.6710, L100.0100 #### [facility] [address] [place], [address] AST [Catalytic activity/Vol] 29 U/L Normal <=31 [facility] Comment on above: Result Comment: Hemo lysis present, Results??could be affected. ?? Performed By: #### L 101.9900, L500.4050, L501.6710, L100.0100 #### [facility] [address] [place], [address] Bilirubin [Mass/Vol] 0.75 mg/dL Normal 0.00-1.30 [facility] Comment on above: Performed By: #### L 101.9900, L500.4050, L501.6710, L100.0100 #### [facility] [address] [place], [address] BUN/CRE 11.4 RATIO Normal 10-20 [facility] Comment on above: Performed By: #### L 101.9900, L500.4050, L501.6710, L100.0100 #### [facility] [address] [place], [address] Calcium [Mass/Vol] 8.6 mg/dL Normal 7.6-11.0 [facility] Comment on above: Performed By: #### L 101.9900, L500.4050, L501.6710, L100.0100 #### [facility] [address] [place], [address] Chloride [Moles/Vol] 102 mmol/L Normal 98-108 [facility] Comment on above: Performed By: #### L 101.9900, L500.4050, L501.6710, L100.0100 #### [facility] [address] [place], [address] CO2 [Moles/Vol] 23.4 mmol/L Normal 21.0-32.0 [facility] Comment on above: Performed By: #### L 101.9900, L500.4050, L501.6710, L100.0100 #### [facility] [address] [place], [address] Creatinine [Mass/Vol] 0.88 mg/dL Normal 0.70-1.20 [facility] Comment on above: Performed By: #### L 101.9900, L500.4050, L501.6710, L100.0100 #### [facility] [address] [place], [address] ECRCL 98.58 ml/min Normal 50-250 [facility] Comment on above: Performed By: #### L 101.9900, L500.4050, L501.6710, L100.0100 #### [facility] [address] [place], [address] GAP 14 Normal 5-15 [facility] Comment on above: Performed By: #### L 101.9900, L500.4050, L501.6710, L100.0100 #### [facility] [address] [place], [address] GFR/1.73 sq M.predicted among non-blacks MDRD (S/P/Bld) [Vol rate/Area] 88 mL/min/{1.73_m2} Normal >60 [facility] Comment on above: Result Comment: mL/m in/1.73m2 CKD-EPI Creatinine Equation (2020) Performed By: #### L 101.9900, L500.4050, L501.6710, L100.0100 #### [facility] [address] [place], [address] Globulin (S) [Mass/Vol] 3.5 g/dL Normal 2.2-4.2 [facility] Comment on above: Performed By: #### L 101.9900, L500.4050, L501.6710, L100.0100 #### [facility] [address] [place], [address] Glucose [Mass/Vol] 85 mg/dL Normal 70-99 [facility] Comment on above: Performed By: #### L 101.9900, L500.4050, L501.6710, L100.0100 #### [facility] [address] [place], [address] Potassium [Moles/Vol] 3.5 mmol/L Normal 3.3-5.1 [facility] Comment on above: Result Comment: Hemo lysis present, Results??could be affected. ?? Performed By: #### L 101.9900, L500.4050, L501.6710, L100.0100 #### [facility] [address] [place], [address] Sodium [Moles/Vol] 139 mmol/L Normal 133-145 [facility] Comment on above: Performed By: #### L 101.9900, L500.4050, L501.6710, L100.0100 #### [facility] [address] [place], [address] T PROT 8.0 g/dL Normal 5.9-8.4 [facility] Comment on above: Performed By: #### L 101.9900, L500.4050, L501.6710, L100.0100 #### [facility] [address] [place], [address] Urea nitrogen [Mass/Vol] 10 mg/dL Normal - [facility] Comment on above: Performed By: #### L 101.9900, L500.4050, L501.6710, L100.0100 #### [facility] [address] [place], [address] Emergency Department Summary on 04-17-2025 Emergency Department Summary [facility] Medical Records Department [address] [place] [address] Emergency Department Summary 04/17/25 MR#: [id number] Acct: [id number] Name: GRETA ANDRES Rep #: [id number] : 1990 35 From: Ludin Adams DO [...] further evaluation management. Denies any recent contacts [facility] Medical History Kidney stone Cancer Anemia [...] 1.5 mg PO DAILY 05/13/24 03/18/25 History (Vrfrancoislar) ondansetron 4 mg disintegrating 4 mg PO [...] Adderall) adhesive tape Allergy Intermediate Rash Verified 05/27/25 15:05 morphine Allergy Rash Verified 04/17/25 15:05 [...] Exam Na (more content not included)... [facility] Lipaseon 04-17-2025 Lipase [Catalytic activity/Vol] 43 U/L Normal 13-75 [facility] Comment on above: Result Comment: Ozzie arrington note: LIPASE revised reference range effective 23. New Lipase methodology. Expected to produce lower values than the previous assay method. NEW Reference Range: 13 - 75 U/L Performed By: #### L 501.2450, L700.6800 #### [facility] [address] [place], [place], [address] ,Serum,hCG Quali.on 04-17-2025 HCG, SERUM QUAL Negative Normal [facility] Comment on above: Performed By: #### L 501.2450, L700.6800 #### [facility] [address] [place], [place], [address] HCG, SERUM QUAL Normal [facility] Comment on above: Result Comment: Sahil sawant via OM: Ordered Performed By: #### L 501.2450, L700.6800 #### [facility] [address] [place], [address] INTERNAL QC OK? Normal [facility] Comment on above: Result Comment: Canc elled via OM: MD Ordered Performed By: #### L 501.2450, L700.6800 #### [facility] [address] [place], [address] RECORD KIT LOT# Normal [facility] Comment on above: Result Comment: Canc elled via OM: MD Ordered Performed By: #### L 501.2450, L700.6800 #### [facility] [address] [place], [address] Urinalysis, Completeon 04-17 EPI,SQUAMOUS 5-10 SEEN Normal 5-10 [facility] Comment on above: Order Comment: CLEAN CATCH Performed By: #### L 101.9900, L500.4050, L501.6710, L100.0100 #### [facility] [address] [place], [address] RBC 0-5 SEEN Normal 0-5 [facility] Comment on above: Order Comment: CLEAN CATCH Performed By: #### L 101.9900, L500.4050, L501.6710, L100.0100 #### [facility] [address] [place], [address] WBC 5-10 SEEN Normal 0-5 [facility] Comment on above: Order Comment: CLEAN CATCH Performed By: #### L 101.9900, L500.4050, L501.6710, L100.0100 #### [facility] [address] [place], [address] BACTERIA 0 SEEN Normal None Seen [facility] Comment on above: Order Comment: CLEAN CATCH Performed By: #### L 101.9900, L500.4050, L501.6710, L100.0100 #### [facility] [address] [place], [address] Mucus Ql (Urine sed) 0 SEEN Normal [facility] Comment on above: Order Comment: CLEAN CATCH Performed By: #### L 101.9900, L500.4050, L501.6710, L100.0100 #### [facility] [address] [place], [address] CNPNon 04-13-2025 CNPN Telephone (PNMDNA) GRETA ANDRES ([id number]) 1990 F Date Time Provider Department 04/13/25 [facility] During your visit today, we recorded the following information about you: Lisa Edmond 04/13/2025 2:43 PM Signed Huy with [facility] called to report Patient has been prescribed Lorazepam by another provider. Pharmacy wants to check if Carlie Brownlee CNP is agreeable to Patient taking Tramadol along with Lorazepam? Please advise and call [facility] at [phone] with recommendations. Carlie Powell, COMPENSATION SUPERVISOR.METAL DRILL OPERATOR 04/13/2025 3:11 PM Signed I am okay with this. She has been on Tramadol for years! Carlie Bautista, RN 04/13/2025 3:21 PM Signed Message from [...] Dermatofibroma [D23.9] 06/20/2024 Encounter Status:Closed by CARLIE BAUTSITA on 04/13/[address] [facility] Gastroenterology Visit Repor ton 04-10-2025 Gastroenterology Visit Report [facility] [address] [place] [address] OFFICE VISIT Date of Service: 04/10/25 MR#: [id number] Acct: [id number] Name: GRETA ANDRES Rep #: [id number] : 1990 Provider: JERI Marquez Age/Sex: 35/F Location: [facility] Status: Signed Intake Vital Signs 03/19/25 10:23 [...] if its from stones seen in imaging. [facility] Medical History Kidney stone Cancer Anemia Migraine [...] wnl 4 hour GES; normal [facility] ED 4 with right sided flank pain CT abd/pelvi1. [...] and leg (more content not included)... [facility] Single Viewon 2024 [facility] [address] [place], [place] [address] Abdomen Single View MR#: [id number] Acct: [id number] Name: GRETA ANDRES Rep #: [id number] : 1990 F 35 From: Louie Godoy MD PCP: Dr. Nagi Red MD Status: REG CLI Study: Abdomen Single View Date of Exam: 04/09/25 Exam# [id number] Ordering Dr: Kate Gonzáles MD PROCEDURE: ABDOMEN [...] pathologic calcification identified by radiographs. Reading Location: [facility] CC: Dr. Kate Gonzáles MD; Dr. Nagi Red MD Resource Forester: Signed [facility] HISTORY PHYSICALon HISTORY PHYSICAL HNO ID: [id number] Author: JUAN DANIEL CONTRERAS MD Service: Pain [...] 08/07/2013 Bipolar 1 disorder (HCC) 02/14/2018 Seeing [facility] Behavioral Medicine as of 01/2018 Bipolar [...] conjunction with observation. (more content not included)... [facility] OPERATIVE NOon 04-03-2025 OPERATIVE NO HNO ID: [id number] Author: JUAN DANIEL CONTRERAS MD Service: Pain Management Author Type: Physician Type: Operative Report Filed: 04/03/2025 10:16 Note Text: PATIENT NAME: Greta Andres SERVICE DATE: 04/03/2025 Preoperative Diagnosis: Right SI joint dysfunction Right SI joint pain Postoperative Diagnosis: Same Motorcycle Delivery Driver(s): None, I performed the entire procedure. ANESTHESIA: [...] RF ablation of the SI joint per [employer]. PROCEDURE: Right SI joint BIPOLAR RADIOFREQUENCY [...] DATE: April 03, 2025 TIME: 10:[address] [facility] Gastric Emptying Study - 4 H Gamaliel 03-22-2025 Gastric Emptying Study - 4 HR [facility] Imaging Services [address] [place] [address] Gastric Emptying Study - 4 HR MR#: [id number] Acct: [id number] Name: GRETA ANDRES Rep #: [id number] : 1990 F 35 From: Robert Rey PCP: Dr. Nagi Red MD Status: REG CLI Study: Gastric Emptying Study - 4 HR Date of Exam: Exam# [id number] Ordering Dr: Taylor Samuel PROCEDURE: GASTRIC EMPTYING [...] geometric mean was used to calculate a mxju-yqgfleju-drwhw. Medications taken in the past 24 hours [...] in solid phase gastric emptying. Reading Location: [place] [address] CC: Dr. Nagi Red MD; JERI Marquez Resource Forester: Signed [facility] Abdomen/Pelvis W IV Cont ONL Yon 03-19-2025 Abdomen/Pelvis W IV Cont ONLY [facility] Imaging Services [address] [place] [address] Abdomen/Pelvis W IV Cont ONLY MR#: [id number] Acct: [id number] Name: GRETA ANDRES Rep #: [id number] : 1990 F 35 From: Zackary Navarrete MD PCP: Dr. Nagi Red MD Status: REG ER Study: Abdomen/Pelvis W IV Cont ONLY Date of Exam: Exam# [id number] Ordering Dr: Ester Blas PROCEDURE: ABDOMEN/PELVIS W [...] 3. Additional description as above. Reading Location: [id number] CC: Dr. Nagi Red MD; JERI Singleton Resource Forester: Signed [facility] CBC W/Diff, Automatedon 02-21 Absolute Lymph 2.58 X10 3/uL Normal 0.83-4.51 [facility] Comment on above: Performed By: #### L 501.2450, L700.6800 #### [facility] [address] [place], [address] Absolute Neut 6.5 X10 3/uL Normal 2.0-7.7 [facility] Comment on above: Performed By: #### L 501.2450, L700.6800 #### [facility] [address] [place], [address] Basophils/100 WBC (Bld) 0.3 % Normal 0-1 [facility] Comment on above: Performed By: #### L 501.2450, L700.6800 #### [facility] [address] [place], [address] Eosinophils/100 WBC (Bld) 3.3 % Normal 0-5 [facility] Comment on above: Performed By: #### L 501.2450, L700.6800 #### [facility] [address] [place], [address] Erythrocyte distribution width (RBC) [Ratio] 13.4 % Normal 11.6-14.6 [facility] Comment on above: Performed By: #### L 501.2450, L700.6800 #### [facility] [address] [place], [address] Hematocrit (Bld) [Volume fraction] 41.4 % Normal 37-47 [facility] Comment on above: Performed By: #### L 501.2450, L700.6800 #### [facility] [address] [place], [address] Hemoglobin (Bld) [Mass/Vol] 14.4 g/dL Normal 12.0-15.0 [facility] Comment on above: Performed By: #### L 501.2450, L700.6800 #### [facility] [address] [place], [address] IG% 0.600 Normal 0.0-0.9 [facility] Comment on above: Result Comment: IG% - Immature Granulocytes (promyelocytes, myelocytes and metamyelocytes) > 1% indicates that a LEFT SHIFT is Present. Performed By: #### L 501.2450, L700.6800 #### [facility] [address] [place], [address] Lymphocytes/100 WBC (Bld) 26.3 % Normal 19-41 [facility] Comment on above: Performed By: #### L 501.2450, L700.6800 #### [facility] [address] [place], [address] MCH (RBC) [Entitic mass] 28.1 pg Normal 27.0-32.0 [facility] Comment on above: Performed By: #### L 501.2450, L700.6800 #### [facility] [address] [place], [address] MCHC (RBC) [Mass/Vol] 34.8 g/dL Normal 32-36 [facility] Comment on above: Performed By: #### L 501.2450, L700.6800 #### [facility] [address] [place], [address] MCV (RBC) [Entitic vol] 80.7 fL Low 81-99 [facility] Comment on above: Performed By: #### L 501.2450, L700.6800 #### [facility] [address] [place], [address] Monocytes/100 WBC (Bld) 3.8 % Normal 0-10 [facility] Comment on above: Performed By: #### L 501.2450, L700.6800 #### [facility] [address] [place], [address] Neutrophils/100 WBC (Bld) 65.7 % Normal 47-70 [facility] Comment on above: Performed By: #### L 501.2450, L700.6800 #### [facility] [address] [place], [address] Nucleated RBC (Bld) [#/Vol] 0 10*3/uL Normal 0-5 [facility] Comment on above: Performed By: #### L 501.2450, L700.6800 #### [facility] [address] [place], [address] Platelet mean volume (Bld) [Entitic vol] 10.0 fL Normal 6.2-12.0 [facility] Comment on above: Performed By: #### L 501.2450, L700.6800 #### [facility] [address] [place], [address] Platelets (Bld) [#/Vol] 252 10*3/uL Normal 150-450 [facility] Comment on above: Performed By: #### L 501.2450, L700.6800 #### [facility] [address] [place], [address] RBC (Bld) [#/Vol] 5.13 10*6/uL Normal 4.2-5.4 [facility] Comment on above: Performed By: #### L 501.2450, L700.6800 #### [facility] [address] [place], [address] RDW SD 39.2 fl Normal 35.1-43.9 [facility] Comment on above: Performed By: #### L 501.2450, L700.6800 #### [facility] [address] [place], [address] WBC (Bld) [#/Vol] 9.8 10*3/uL Normal 4.4-11.0 [facility] Comment on above: Performed By: #### L 501.2450, L700.6800 #### [facility] [address] [place], [address] CNPSara 03-19-2025 CNPN Telephone (PNNA) GRETA ANDRES ([id number]) 1990 F Date Time Provider Department 03/19/25 CARLIE BROWNLEE PNNA During your visit today, we recorded the following information about you: Roselia Verdin 03/19/2025 1:45 PM Signed Patient was seen at [facility] for kidney stones today. Patient was given an RX for pain medication and questions if she can garbage pick up man or if picking up a pain medication from a different doctor is in breach of her contact with Dr. Contreras. Call [phone]. Patient is requesting a return call as [...] Signed Hold the tramadol while taking the [place]. I am okay with this Roseline Pierson [...] Date Reviewed: 01/05/2025 Reviewed by: Tomas Alexis APRN.METAL DRILL OPERATOR - Fully Assessed Reason for Visit: Medication Question [5878] Prescriptions as of 03/19/2025 - traMADol (ULTRAM) [...] by mouth two times a day. - Hqlls-6-MUS-EPA-Fish Oil (FISH OIL) 1,000 (120-180) mg cap [...] 03/03/2023 O (more content not included)... Normal [facility] Metabolic Prof idabel 03-19-2025 Albumin [Mass/Vol] 4.2 g/dL Normal 3.5-5.0 [facility] Comment on above: Performed By: #### L 501.2450, L700.6800 #### [facility] [address] [place], [address] Albumin/Globulin [Mass ratio] 1.3 {ratio} Normal 0.9-2.4 [facility] Comment on above: Performed By: #### L 501.2450, L700.6800 #### [facility] [address] [place], [address] ALK PHOS 77 U/L Normal 35-104 [facility] Comment on above: Performed By: #### L 501.2450, L700.6800 #### [facility] [address] [place], [address] ALT [Catalytic activity/Vol] 22 U/L Normal <=34 [facility] Comment on above: Performed By: #### L 501.2450, L700.6800 #### [facility] [address] [place], [address] AST [Catalytic activity/Vol] 29 U/L Normal <=31 [facility] Comment on above: Result Comment: Hemo lysis present, Results??could be affected. ?? Performed By: #### L 501.2450, L700.6800 #### [facility] [address] [place], [address] Bilirubin [Mass/Vol] 0.33 mg/dL Normal 0.00-1.30 [facility] Comment on above: Performed By: #### L 501.2450, L700.6800 #### [facility] [address] [place], [address] BUN/CRE 8.1 RATIO Low 10-20 [facility] Comment on above: Performed By: #### L 501.2450, L700.6800 #### [facility] [address] [place], [address] Calcium [Mass/Vol] 9.0 mg/dL Normal 7.6-11.0 [facility] Comment on above: Performed By: #### L 501.2450, L700.6800 #### [facility] [address] [place], [address] Chloride [Moles/Vol] 107 mmol/L Normal 98-108 [facility] Comment on above: Performed By: #### L 501.2450, L700.6800 #### [facility] [address] [place], [address] CO2 [Moles/Vol] 21.9 mmol/L Normal 21.0-32.0 [facility] Comment on above: Performed By: #### L 501.2450, L700.6800 #### [facility] [address] [place], [address] Creatinine [Mass/Vol] 0.83 mg/dL Normal 0.70-1.20 [facility] Comment on above: Performed By: #### L 501.2450, L700.6800 #### [facility] [address] [place], [address] ECRCL 104.09 ml/min Normal 50-250 [facility] Comment on above: Performed By: #### L 501.2450, L700.6800 #### [facility] [address] [place], [address] GAP 11 Normal 5-15 [facility] Comment on above: Performed By: #### L 501.2450, L700.6800 #### [facility] [address] [place], [address] GFR/1.73 sq M.predicted among non-blacks MDRD (S/P/Bld) [Vol rate/Area] 94 mL/min/{1.73_m2} Normal >60 [facility] Comment on above: Result Comment: mL/m in/1.73m2 CKD-EPI Creatinine Equation (2020) Performed By: #### L 501.2450, L700.6800 #### [facility] [address] [place], [address] Globulin (S) [Mass/Vol] 3.3 g/dL Normal 2.2-4.2 [facility] Comment on above: Performed By: #### L 501.2450, L700.6800 #### [facility] [address] [place], [address] Glucose [Mass/Vol] 105 mg/dL High 70-99 [facility] Comment on above: Performed By: #### L 501.2450, L700.6800 #### [facility] [address] [place], [address] Potassium [Moles/Vol] 4.2 mmol/L Normal 3.3-5.1 [facility] Comment on above: Result Comment: Hemo lysis present, Results??could be affected. ?? Performed By: #### L 501.2450, L700.6800 #### [facility] [address] [place], [address] Sodium [Moles/Vol] 141 mmol/L Normal 133-145 [facility] Comment on above: Performed By: #### L 501.2450, L700.6800 #### [facility] [address] [place], [address] T PROT 7.4 g/dL Normal 5.9-8.4 [facility] Comment on above: Performed By: #### L 501.2450, L700.6800 #### [facility] [address] [place], [address] Urea nitrogen [Mass/Vol] 7 mg/dL Normal 4-19 [facility] Comment on above: Performed By: #### L 501.2450, L700.6800 #### [facility] [address] [place], [address] Emergency Department Summary on 03-19-2025 Emergency Department Summary [facility] Medical Records Department [address] [place] [address] Emergency Department Summary 03/19/25 MR#: [id number] Acct: [id number] Name: GRETA ANDRES Rep #: [id number] : 1990 35 From: Ester WILCOX PCP: [...] of kidney stones and was seen at [facility] yesterday and had a CT scan of the abdomen and pelvis that did not show any evidence of ureteral stone. She reports she has had multiple episodes of nausea and vomiting over the past 6 days. She denies fevers, chills, urinary symptoms, diarrhea, and hematemesis. [facility] Medical History Kidney stone Cancer Anemia [...] Room Air (more content not included)... [facility] ,Serum,hCG Quali.on 03-19-2025 HCG, SERUM QUAL Negative Normal [facility] Comment on above: Performed By: #### L 501.2450, L700.6800 #### [facility] [address] [place], [address] Urinalysis, Completeon 03-19 WBC 0-5 SEEN Normal 0-5 [facility] Comment on above: Order Comment: GREGG CTOR TO SPECIFY Performed By: #### L 400.0001 #### [facility] [address] [place], [address] EPI,SQUAMOUS 10-25 SEEN Normal 5-10 [facility] Comment on above: Order Comment: GREGG CTOR TO SPECIFY Performed By: #### L 400.0001 #### [facility] [address] [place], [address] BACTERIA 0 SEEN Normal None Seen [facility] Comment on above: Order Comment: GREGG CTOR TO SPECIFY Performed By: #### L 400.0001 #### [facility] [address] [place], [address] Mucus Ql (Urine sed) 0 SEEN Normal [facility] Comment on above: Order Comment: GREGG CTOR TO SPECIFY Performed By: #### L 400.0001 #### [facility] [address] [place], [address] RBC 0 SEEN Normal 0-5 [facility] Comment on above: Order Comment: GREGG CTOR TO SPECIFY Performed By: #### L 400.0001 #### [facility] [address] [place], [place], [address] CBC + DIFFon 03-18-2025 Baso # 0.03 x10EE3/UL Normal 0.00 - 0.10 [facility] Comment on above: Performed By: #### 2 38815 #### [facility],[address] [place] [address] Basophils/100 WBC (Bld) 0.2 % Normal 0.0 - 2.0 [facility] Comment on above: Performed By: #### 2 27469 #### [facility],[address] [place] [address] CBC + DIFF Normal [facility] Comment on above: Result Comment: CBC- COMPLETE BLOOD COUNT Performed By: #### 2 44983 #### [facility],[address] [place] [address] EO # 0.41 x10EE3/UL Normal 0.00 - 0.50 [facility] Comment on above: Performed By: #### 2 54962 #### [facility],[address] [place] [address] Eosinophils/100 WBC (Bld) 3.8 % Normal 0.0 - 7.0 [facility] Comment on above: Performed By: #### 2 68531 #### [facility],[address] [place] [address] Erythrocyte distribution width (RBC) [Ratio] 14.3 % Normal 12.0 - 15.6 [facility] Comment on above: Performed By: #### 2 54328 #### [facility],[address] [place] [address] Hematocrit (Bld) [Volume fraction] 39.6 % Normal 34.0 - 46.0 [facility] Comment on above: Performed By: #### 2 66875 #### [facility],[address] [place] [address] Hemoglobin (Bld) [Mass/Vol] 14.0 g/dL Normal 12.0 - 16.0 [facility] Comment on above: Performed By: #### 2 18496 #### [facility],[address] [place] [address] Lymph # 3.07 x10EE3/UL High 0.80 - 2.80 [facility] Comment on above: Performed By: #### 2 80269 #### [facility],[address] [place] [address] Lymphocytes/100 WBC (Bld) 27.8 % Normal 20.0 - 45.0 [facility] Comment on above: Performed By: #### 2 01003 #### [facility],[address] [place] [address] MANUAL DIFF N/A Normal [facility] Comment on above: Performed By: #### 2 19443 #### [facility],[address] [place] [address] MCH (RBC) [Entitic mass] 28 pg Normal 27 - 33 [facility] Comment on above: Performed By: #### 2 29725 #### [facility],[address] [place] [address] MCHC 35 X10 3 Normal 32 - 36 [facility] Comment on above: Performed By: #### 2 98188 #### [facility],[address] [place], [place] [address] MCV (RBC) [Entitic vol] 80 fL Normal 80 - 99 [facility] Comment on above: Performed By: #### 2 31732 #### [facility],[address] [place], [place] [address] Fountain # 0.58 x10EE3/UL Normal 0.20 - 1.00 [facility] Comment on above: Performed By: #### 2 55952 #### [facility],[address] [place], [place] [address] MONOS % 5.2 % Normal 0.0 - 10.0 [facility] Comment on above: Performed By: #### 2 92632 #### [facility],[address] [place] [address] Morphology Cristi (Bld) [Interp] N/A Normal [facility] Comment on above: Performed By: #### 2 72415 #### [facility],[address] [place] [address] Neut # 6.93 x10EE3/UL Normal 1.50 - 7.10 [facility] Comment on above: Performed By: #### 2 33956 #### [facility],[address] [place] [address] Neutrophils/100 WBC (Bld) 62.9 % Normal 46.0 - 76.0 [facility] Comment on above: Performed By: #### 2 86385 #### [facility],[address] [place] [address] PLATELET 239 x10EE3/UL Normal 150 - 450 [facility] Comment on above: Performed By: #### 2 23960 #### [facility],[address] [place] [address] Platelet mean volume (Bld) [Entitic vol] 8.1 fL Normal 6.6 - 10.5 [facility] Comment on above: Result Comment: AUTO MATED DIFFERENTIAL Performed By: #### 2 03407 #### [facility],[address] [place] [address] 19852 RBC 4.97 x 10EE6/UL Normal 4.10 - 5.30 [facility] Comment on above: Performed By: #### 2 14210 #### [facility],[address] [place] [address] WBC 11.0 x 10EE3/UL High 4.5 - 10.8 [facility] Comment on above: Performed By: #### 2 07013 #### [facility],[address] [place] [address] CMP with eGFRon 03-18-2025 AGE 35 years Normal [facility] Comment on above: Performed By: #### 2 05779 ####[facility],[address] [place] [address] Albumin [Mass/Vol] 3.4 g/dL Normal 3.4 - 5.0 [facility] Comment on above: Performed By: #### 2 59124 ####[facility],[address] [place] [address] Albumin/Globulin [Mass ratio] 0.9 {ratio} Normal 0.9 - 1.6 [facility] Comment on above: Performed By: #### 2 42312 ####[facility],[address] [place] [address] ALK PHOS 69 U/L Normal 46 - 116 [facility] Comment on above: Performed By: #### 2 40513 ####[facility],[address] [place] [address] ALT [Catalytic activity/Vol] 25 U/L Normal 16 - 63 [facility] Comment on above: Performed By: #### 2 48188 ####[facility],[address] [place] [address] Anion gap [Moles/Vol] 11 mmol/L Normal 10 - 20 [facility] Comment on above: Performed By: #### 2 18401 ####[facility],[address] [place] [address]351 AST [Catalytic activity/Vol] 20 U/L Normal 13 - 39 [facility] Comment on above: Performed By: #### 2 91871 ####[facility],[address] [place] [address]90[address] B/C RATIO 11 ratio Normal 0 - 30 [facility] Comment on above: Performed By: #### 2 44581 ####[facility],[address] [place] [address] Bilirubin [Mass/Vol] 0.3 mg/dL Normal 0.2 - 1.0 [facility] Comment on above: Performed By: #### 2 57529 ####[facility],[address] [place] [address] Calcium [Mass/Vol] 8.6 mg/dL Normal 8.5 - 10.1 [facility] Comment on above: Performed By: #### 2 50262 ####[facility],[address] [place] [address]805 Chloride [Moles/Vol] 108 mmol/L High 98 - 107 [facility] Comment on above: Performed By: #### 2 74769 ####[facility],[address] [place], [place] [address] CMP with eGFR Normal [facility] Comment on above: Result Comment: COMP REHENSIVE METABOLIC PANEL Performed By: #### 2 10191 ####[facility],[address] [place] [address] CO2 [Moles/Vol] 25.4 mmol/L Normal 21.0 - 32.0 [facility] Comment on above: Performed By: #### 2 85022 ####[facility],[address] [place], [place] [address] Creatinine [Mass/Vol] 0.81 mg/dL Normal 0.55 - 1.02 [facility] Comment on above: Performed By: #### 2 54193 ####[facility] [facility],[address] [place] [address] GFR/1.73 sq M.predicted among non-blacks MDRD (S/P/Bld) [Vol rate/Area] mL/min/{1.73_m2} Normal 60 - 999 [facility] Comment on above: Performed By: #### 2 67475 ####[facility],[address] [place], [place] [id number] Result Comment: ACCO RDING TO THE NATIONAL KIDNEY DISEASE EDUCATION PROGRAM(NKDE), A NORMAL eGFR IS A VALUE GREATER THAN OR EQUAL TO 60 ML/MIN/1.73 SQ METERS. CHRONIC KIDNEY DISEASE: <60mL/MIN/1.73 SQ METERS KIDNEY FAILURE: <15mL/MIN/1.73 SQ METERS THIS TEST SHOULD ONLY BE USED FOR PATIENTS 18 YEARS OF AGE AND OLDER. Globulin (S) [Mass/Vol] 3.9 g/dL High 1.5 - 3.8 [facility] Comment on above: Performed By: #### 2 58870 ####[address] [address] Glucose [Mass/Vol] 87 mg/dL Normal 74 - 106 [facility] Comment on above: Performed By: #### 2 42683 ####[address] [address] Potassium [Moles/Vol] 3.7 mmol/L Normal 3.5 - 5.1 [facility] Comment on above: Performed By: #### 2 98682 ####[address] [address] Protein [Mass/Vol] 7.3 g/dL Normal 6.4 - 8.2 [facility] Comment on above: Performed By: #### 2 02447 ####[address] [address] Sodium [Moles/Vol] 141 mmol/L Normal 136 - 145 [facility] Comment on above: Performed By: #### 2 99578 ####[address] [address] Urea nitrogen [Mass/Vol] 9 mg/dL Normal 7 - 18 [facility] Comment on above: Performed By: #### 2 66661 ####[address] [address] [address] KUB (KIDNEY STONE PROTOCO L)on 03-18-2025 CT KUB (KIDNEY STONE PROTOCOL) [place] [address] Patient: GRETA ANDRES Phone#: : 1990 Age: 35 Gender: F Pt. Type: ER Account: [id number] Location: 052 Ordering: IRAM SARMIENTO Exam Date: 03/18/2025/14:29 Family Phys: NAGI RED Charge Code: 393350 Physician: Lowndes Order #: [id number] Dose#: 10.90 mGy PROCEDURE: CT ABDOMEN AND PELVIS WITHOUT CONTRAST COMPARISON: [facility], CT, KUB W/O CON, 03/28/2023, 13:15. INDICATIONS: [...] 35 Gender: F Pt. Type: ER Account: [id number] Location: 052 Ordering: IRAM SARMIENTO Exam Date: 03/18/2025/14:29 Family Phys: NAGI RED Charge Code: 522393 Physician: Lowndes Order #: [id number] Dose#: 10.90 mGy LUNG BASES: Normal. No visible pulmonary or pleural disease. OTHER: Negative. CONCLUSION: 1. Nonobstructing bilateral renal calculi are present. There is no evidence of hydronephrosis or ureteral calculus. Dictated by: Fabiola Cantrell MD on 03/18/2025 at 19:26 Approved by: Fabiola Cantrell MD on 03/18/2025 at 19:30 Normal [facility] ED MED ADMINISTRATION DETAIL on 03-18-2025 ED MED ADMINISTRATION DETAIL [employer] Medication Administration Record [address] [address] [id number] 03/18/2025 Patient: GRETA ANDRES Sex: Female : [...] 16:15 03/18/2025 E.M.T.-P. Tiffani Cheng R.N. Scanned 16:03/18 Medication Discontinued: bag #1 completed upon discharge. [...] 13:43 Tiffani Cheng R.N. 1 of 2 [employer] Medication Ordered Medication Administration Date/Time Zofran IVP [...] Scanned Wastage: 15 mg wasted. - 14:58 Ethan Cormier.M.T.-P. HYDROmorphone 15:38 03/18 HYDROmorphone (Dilaudid) IVP 0.5 [...] Tiffani Cheng R.N. 2 of 2 Normal [facility] ED NURSES CLINICAL NOTEon ED NURSES CLINICAL NOTE Nurse Narrative Nurse Clinical Narrative [facility] [address] [place] [address] [id number] 03/18/2025 12:53:00 Patient: GRETA ANDRES Sex: Female [...] Medications: promethazine 12.5 mg tablet -- 13:03/18/25 BEN Huffman R.N. sumatriptan 50 mg tablet -- 13:03/18/25 EDT Guicho Huffman R.N. tramadol 50 mg tablet -- 13:03/18/25 EDT Guicho Huffman R.N. 1 of 4 Nurse Narrative levothyroxine 200 mcg tablet -- 13:04 03/18/25 [facility] Guicho Huffman R.N. propranolol 20 mg tablet -- 13:04 03/18/25 [facility] Guicho Huffman R.N. levothyroxine 25 mcg tablet -- 13:04 03/18/25 [facility] Guicho Huffman R.N. prazosin 2 mg capsule -- 13:04 03/18/25 [facility] Guicho Huffman R.N. hydrochlorothiazide 25 mg tablet -- 13:04 03/18/25 [facility] Aniket Suarez.Artem quetiapine 50 mg tablet -- 13:04 03/18/25 [facility] Guicho Huffman R.N. magnesium 100 mg (as glycinate) capsule: TAKE 1 CAPSULE BY MOUTH TWICE DAILY -- 13:03/18/25 DEBORAT Guicho Huffman R.N. scopolamine 1 mg over 3 days transdermal patch -- 13:03/18/25 [facility] Guicho Huffman R.N. Vraylar 1.5 mg capsule -- 13:04 03/18/25 [facility] Guicho Huffman R.N. Allergies: morphine -- 12:57 03/18/25 T Guicho Huffman R.N. Adderall -- 12:57 03/18/25 DEBORAT Guicho Huffman R.N. Problems: Asthma -- 12:57 03/18/25 DEBORAT Guicho Huffman R.N. thyroid cancer -- 12:57 03/18/25 DEBORAT Guicho Huffman R.N. Gastroparesis -- 12:58 03/18/25 T Guicho Huffman R.N. kidney stones -- 12:58 [...] assessment completed. No risk factors identified. -- 13:01 03/18/25 DEBORAT Guicho Huffman R.N. Interventions 12:56 03/18/25. [...] 5 mL saline. -- 13:30 03/18/25 EDT Judson Yang E.M.T.-P. 13:31 03/18/25. IV NS 0.9 % 1000 [...] R.N. 1 (more content not included)... Normal [facility] ED ORDER SHEET (CPOE ONLY)on 03-18-2025 ED ORDER SHEET (CPOE ONLY) Order Sheet Order Sheet [address] [place] [address] [id number] 03/18/2025 Patient: GRETA ANDRES Sex: Female : 1990 Age: 35y MEASUREMENTS: Wt: 86.2 kg, Ht/Grzegorz: 65.0 in, BMI: 31.62 ALLERGIES: Adderall, morphine MEDICATION/IV/DRIP/FLUID ORDERS Order Description Priority Entered Acknowledged Completed IV NS 0.9 %1000 mL at 500 13:00 03/18/2025 13:22 13:32 mL/hr (NOW x1) Iram Sarmiento, 03/18/2025 03/18/2025 Judson Hinds E.M.T.-P. MauricioTPolina-P. HYDROmorphone (Dilaudid) 13:33 03/18/2025 13:40 13:43 IVP0.5 mg (NOW x1, HIGH Iram Sarmiento, 03/18/2025 03/18/2025 ALERT MEDICATION) Zachary Campa REmanuel Reason for ordering with alerts: Benefits outweigh risks --13:33 03/18/2025 Iram Sarmiento D.O. Zofran IVP4 mg (NOW x1) 13:33 03/18/2025 13:40 13:43 Iram Sarmiento, 03/18/2025 03/18/2025 Zachary Campa R.NPolina Reason for ordering with alerts: Benefits [...] Judson Khan Bryan Parker, D.O. E.M.TPolina-PPolina MartínezT.-P. CMP Stat Stat 13:00 03/18/2025 13:21 03/18/2025 13:32 03/18/2025 Judson Khan Bryan Parker, D.O. E.M.T.-P. EPolinaMPolinaT.-P. Lipase Stat Stat 13:00 03/18/2025 13:21 03/18/2025 13:32 03/18/2025 Judson Khan Bryan Parker, D.O. E.M.T.-P. EPolinaMPolinaT.-P. Urinalysis Stat Stat 13:00 03/18/2025 13:21 03/18/2025 [...] (03/18/2025 16:23 EDT)] 3 of 3 Normal [facility] ED PHYSICIAN CLINICAL REPORT on 03-18-2025 ED PHYSICIAN CLINICAL REPORT Narrative Physician Clinical Narrative [address] [address] [id number] 03/18/2025 12:53:00 Patient: GRETA ANDRES Sex: Female [...] a low specific gravity, may not contain manufacturers representative EXTERNAL QC 03/18/2025 13:29 YES Final [...] Final NORMAL EDT NORMAL: 03/18/2025 13:29 Sp Tarpley 1.015 Final 1.010-1.030 EDT NORMAL: 03/18/2025 13:29 [...] 03/18/2025 13: (more content not included)... Normal [facility] ED SUPER BILLon 03-18-2025 ED SUPER [facility] [address] [place] [address] [id number] 03/18/2025 Patient: GRETA ANDRES Sex: Female : 1990 Age: 35y Facility Professional Category Item Description Code Code Quantity Fee Total Nurse/E/M EMERGENCY 124670 1 $0.00 $0.00 DEPT VISIT HIGH SEVERITYFUNCJ (98968-88) Nurse/IV/IM/Infusions Hydration 014064 3 $0.00 $0.00 additional hour (96452) Nurse/IV/IM/Infusions IVP additional 356541 2 $0.00 $0.00 push (65505) Nurse/IV/IM/Infusions IVP initial (07561) 869137 1 $0.00 $0.00 Nurse/IV/IM/Infusions IVP same med 899574 1 $0.00 $0.00 (31 min apart) (20644) Grand $0.00 Total Providers Iram Sarmiento D.O. 1 of 2 Superbill Chief Complaint FLANK PAIN. Principal Diagnosis Acute right upper quadrant and right lower quadrant abdominal pain of undetermined cause. ICD-10 Codes R10.11: Right upper quadrant pain R10.31: Right lower quadrant pain 2 of 2 Normal [facility] ED VISIT SUMMARYon ED VISIT SUMMARY Visit Overview Visit Overview [address] [address] [id number] 03/18/2025 Patient: GRETA ANDRES Sex: Female : [...] Vitals Temp 13:00 03/18/25 98.1 F Temp 15:03/18/25 BP 13:03/18/25 155/104 BP 15:03/18/25 158/108 HR 13:03/18/25 74 HR 15:03/18/25 78 RR 13:03/18/25 16 RR 15:03/18/25 18 O2 Sat 13:03/18/25 99% O2 Sat 15:03/18/25 98% Pain 13:03/18/25 6 Pain 15:03/18/25 7 ETCO2 13:00 03/18/25 ETCO2 15:03/18/25 GCS 13:00 03/18/25 GCS 15:03/18/25 RTS 13:00 03/18/25 RTS 15:32 03/18/25 PROCEDURES NURSING INTERVENTIONS LABS / STUDIES LABS / STUDIES ORDERED CBC w Diff CMP CT KUB (Kidney stone) Lipase Urinalysis Urine - HCG CLINICAL IMPRESSION 3 of 4 Visit Overview ACUTE RIGHT UPPER QUADRANT AND RIGHT LOWER QUADRANT ABDOMINAL PAIN OF UNDETERMINED CAUSE 4 of 4 Normal [facility] ED VITALS FLOW SHEETon 03-18 ED VITALS FLOW SHEET Vitals Vital Sign Flow Sheet [address] [place] [address] [id number] 03/18/2025 Patient: GRETA ANDRES Sex: Female : [...] 98.1 F 6 1 of 1 Normal [facility] LIPASEon 03-18-2025 Lipase [Catalytic activity/Vol] 45.0 U/L Normal 15.0 - 78.0 [facility] Comment on above: Result Comment: *PLE ASE NOTE THAT RANGES FOR LIPASE HAVE CHANGED OF 11/19/23 DUE TO AN ASSAY UPDATE BY THE SPORTS MARKETER.THE NEW ASSAY RANGE IS 6-250 U/L, WITH A REFERENCE RANGE OF 16-77 U/L. Performed By: #### 2 [address]1212 #### [place] [address] URINEon 03-18-2025 Beta HCG ( test) Ql (U) Negative Normal NEGATIVE [facility] Comment on above: Performed By: #### 2 [address]23 ####[place] [address] EXTERNAL QC DONE? YES Normal [facility] Comment on above: Result Comment: Very dilute urine specimens, as indicated by a low specific gravity, may not contain manufacturers representative levels of hCG. If is still suspected, a first morning urine specimen should be collected 48 hours later and tested. Performed By: #### 2 59949 ####[facility],[address] [place] [address] INTERNAL QC PASS Normal [facility] Comment on above: Performed By: #### 2 48222 ####[facility],[address] [place] [address] URINALYSISon 03-18-2025 Bilirubin Ql (U) Negative Normal NORMAL: NEGATIVE [facility] Comment on above: Performed By: #### 2 14523 ####[facility],[address] [place] [address] Clarity (U) clear Normal NORMAL: CLEAR [facility] Comment on above: Performed By: #### 2 74091 ####[facility],[address] [place] [address] Color (U) yellow Normal NORMAL: YELLOW [facility] Comment on above: Performed By: #### 2 69613 ####[facility],[address] [place] [address] Glucose Ql (U) NORM Normal NORMAL: NORMAL [facility] Comment on above: Performed By: #### 2 72373 ####[facility],[address] [place] [address] Hemoglobin Ql (U) Negative Normal NORMAL: NEGATIVE [facility] Comment on above: Performed By: #### 2 15596 ####[facility],[address] [place] [address] Ketone Negative Normal NORMAL: NEGATIVE [facility] Comment on above: Performed By: #### 2 06082 ####[facility],[address] [place] [address] Leukocytes Negative Normal NORMAL: NEGATIVE [facility] Comment on above: Performed By: #### 2 18983 ####[facility],[address] [place] [address] Nitrite Ql (U) Negative Normal NORMAL: NEGATIVE [facility] Comment on above: Performed By: #### 2 48624 ####[facility],[address] [place] [address] pH (U) 6.5 [pH] Normal NORMAL: 5.0-8.0 [facility] Comment on above: Performed By: #### 2 52966 ####[facility],[address] [place] [address] Protein Ql (U) 15 Abnormal NORMAL: NEGATIVE [facility] Comment on above: Performed By: #### 2 90045 ####[facility],[address] [place] [address] Sp Tarpley 1.015 Normal NORMAL: 1.010-1.030 [facility] Comment on above: Performed By: #### 2 22135 ####[facility],[address] [place] [address] Specimen Type R Normal [facility] Comment on above: Performed By: #### 2 79432 ####[facility],[address] [place] [address] Urinalysis dipstick W Reflex Microscopic panel (U) NOT INDICATED Normal [facility] Comment on above: Performed By: #### 2 10246 ####[facility],[address] [place] [address] Urobilinog NORM Normal NORMAL: NORMAL [facility] Comment on above: Performed By: #### 2 67646 ####[facility],[address] [place] [address] CNOVon 03-02-2025 CNOV Office Visit (PNMDNA ) GRETA ANDRES ([id number]) 1990 F Date Time Provider Department 03/02/25 9:00 AM CARLIE BROWNLEE PNMDNA During your visit today, we recorded the following information about you: Pulse Weight 87/minute 86.9 kg Carlie Brownlee, COMPENSATION SUPERVISOR.METAL DRILL OPERATOR 03/02/2025 9:34 AM Signed Subjective Greta Andres presents to [facility] Management Department for a follow up [...] been transmitted (more content not included)... Normal [facility] 03-02-2025 CNPN Telephone (PNMDNA) GRETA ANDRES ([id number]) 1990 F Date Time Provider Department 03/02/25 CARLIE BROWNLEECTYULY During your visit today, we recorded the [...] for current RX? Please advise jhoan call [facility] at [phone] with recommendations. Carlie Powell, COMPENSATION SUPERVISOR.[facility] 03/02/2025 10:02 AM Signed Resent the rx Allergies As of Date: 03/02/2025 Noted Allergy Reaction ADHESIVE 02/12/2010 2 - Rash MORPHINE SULFATE 11/12/2008 9 - Itching Comments: had vicodin at same time, but has taken vicodin in past without reaction ADDERALL (DEXTROAMPHETAMINE-AMPHE* 5 - Intolerance Comments: Heart racing, chest pain, diaphoretic, dizzy Date Reviewed: 01/05/2025 Reviewed by: Tomas Alexis APRN.METAL DRILL OPERATOR - Fully Assessed Reason for Visit: [...] by mouth two times a day. - Hcjyu-8-DTL-EPA-Fish Oil (FISH OIL) 1,000 (120-180) mg cap [...] stones [N20.0 (more content not included)... Normal [facility] CNPNon 02-19-2025 CNPN Telephone (PNMDNA) GRETA ANDRES ([id number]) 1990 F Date Time Provider Department 02/19/25 JUAN DANIEL CONTRERAS During your visit today, we recorded the following information about you: Mahesh Quispe, RN 02/19/2025 3:22 PM Signed Patient left message on nurse 02/19/25 at 11:37 asking if she should postpone her appointment with Dr. Contreras on 02/26/25 until after she completes physical therapy. Please call patient at [phone]. Naomi Godwin, DEANDRE 02/19/2025 3:30 PM Signed [...] Date Reviewed: 01/05/2025 Reviewed by: Tomas Alexis APRN.METAL DRILL OPERATOR - Fully Assessed Reason for Visit: Patient Question [1477] Prescriptions as of 02/19/2025 - SUMAtriptan (IMITREX) [...] by mouth two times a day. - Lsalk-8-XJA-EPA-Fish Oil (FISH OIL) 1,000 (120-180) mg cap [...] Status:Closed by NAOMI GODWIN on 02/19/[address] [facility] Gastric Emptying Studyon Gastric Emptying Study [facility] [address] [place], [place] [address] Gastric Emptying Study MR#: [id number] Acct: [id number] Name: GRETA ANDRES Rep #: [id number] : 1990 F 34 From: Loan Aguirre nd, MD PCP: Dr. Nagi Red MD Status: REG CLI Study: Gastric Emptying Study Date of Exam: 02/12/25 Exam# [id number] Ordering Dr: Taylor Samuel PROCEDURE: GASTRIC EMPTYING [...] to timing of study termination. Reading Location: [id number] CC: Dr. Nagi Red MD; JERI Marquez Resource Forester: Signed [facility] CNPN Telephone (PNMDNA) GRETA ANDRES ([id number]) 1990 F Date Time Provider Department 02/08/25 JUAN DANIEL CONTRERASMDNA During your visit today, we recorded the [...] MRI order placed 05/16/2024. PT: Not completed Conjecturt message sent. 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 - Qlybn-1-UCL-EPA-Fish Oil (FISH OIL) 1,000 (120-180) mg cap [...] 03/22/2014 Fibromyalgia (more content not included)... Normal [facility] Ova and Parasites 8623on OP OVA AND PARASITES EX AM, ROUTINE These results were obtained using wet preparation(s) and trichrome stained smear. This test does not include testing for Crytosporidium parvum, Cyclospora, or Microsporidia. One negative specimen does not rule out the possibility of a parasitic infection. _ TESTING PERFORMED AT [facility]. ORIGINAL REPORT ON FILE IN LAB CONTAINS ADDITIONAL TEST SITE INFORMATION. _ Ova/Parasite Exam NO OVA, CYSTS, OR PARASITES FOUND. Normal [facility] Comment on above: Performed By: #### L 101.9900, L500.4050, L501.6710, L100.0100 #### [facility] [address] [place], [place], [id number] Calprotectin, Stoolon [address] 25 ug/g Normal 0-120 [facility] Comment on above: Result Comment: Conc entration Interpretation Follow-Up < 5 - 50 ug/g Normal None >50 -120 ug/g Borderline Re-evaluate in 4-6 weeks >120 ug/g Abnormal Repeat as clinically indicated Performed at: [facility] Lab[address] [id number] Angio Technologist: Laura John MD, Phone: [phone] Performed By: #### L 101.9900, L500.4050, L501.6710, L100.0100 #### [facility] [address] [place], [place], [id number] Giardia Lamblia, Stool EIAon 02-03-2025 Giardia Stool Negative Normal Negative [facility] Comment on above: Result Comment: Perf ormed at: [facility] Lab[address] [id number] Angio Technologist: Rony Esquivel PhD, Phone: [phone] Performed By: #### L 101.9900, L500.4050, L501.6710, L100.0100 #### [facility] [address] [place], [place], [id number] CDIFF (PCR)on 02-02-2025 CDIFF Reference Range: Neg ative [employer]ep[employer] Control Systemsid GeneXpert: polymerase chain reaction (PCR) 027 027 NAP1-B1 Presumptive Negative *for epidemiolologic???use C. Diff PCR Negative- No toxigenic C. Diff Detected Normal [facility] Comment on above: Performed By: #### L 101.9900, L500.4050, L501.6710, L100.0100 #### [facility] [address] [place], [address] ENTERIC PATHOGEN PANEL STOOL on 02-02-2025 EP [...] VIBRIO Not Detected Yersinia Not Detected Normal [facility] Comment on above: Performed By: #### L 101.9900, L500.4050, L501.6710, L100.0100 #### [facility] [place], [address] Stool Lactoferrin/WBCon -1 WBCST Normal Reference Ran ge = Negative Fecal WBC Lactoferrin Negative: No Fecal WBC Lactoferrin present Normal [facility] Comment on above: Performed By: #### L 101.9900, L500.4050, L501.6710, L100.0100 #### [facility] [address] [place], [address] CBC W/Diff, Automatedon 03-0 Absolute Lymph 3.47 X10 3/uL Normal 0.83-4.51 [facility] Comment on above: Performed By: #### L 101.9900, L500.4050, L501.6710, L100.0100 #### [facility] [address] [place], [address] Absolute Neut 7.5 X10 3/uL Normal 2.0-7.7 [facility] Comment on above: Performed By: #### L 101.9900, L500.4050, L501.6710, L100.0100 #### [facility] [address] [place], [address] Basophils/100 WBC (Bld) 0.3 % Normal 0-1 [facility] Comment on above: Performed By: #### L 101.9900, L500.4050, L501.6710, L100.0100 #### [facility] [address] [place], [address] Eosinophils/100 WBC (Bld) 3.3 % Normal 0-5 [facility] Comment on above: Performed By: #### L 101.9900, L500.4050, L501.6710, L100.0100 #### [facility] [address] [place], [address] Erythrocyte distribution width (RBC) [Ratio] 13.3 % Normal 11.6-14.6 [facility] Comment on above: Performed By: #### L 101.9900, L500.4050, L501.6710, L100.0100 #### [facility] [address] [place], [address] Hematocrit (Bld) [Volume fraction] 39.1 % Normal 37-47 [facility] Comment on above: Performed By: #### L 101.9900, L500.4050, L501.6710, L100.0100 #### [facility] [address] [place], [address] Hemoglobin (Bld) [Mass/Vol] 13.8 g/dL Normal 12.0-15.0 [facility] Comment on above: Performed By: #### L 101.9900, L500.4050, L501.6710, L100.0100 #### [facility] [address] [place], [address] IG% 1.000 High 0.0-0.9 [facility] Comment on above: Result Comment: IG% - Immature Granulocytes (promyelocytes, myelocytes and metamyelocytes) > 1% indicates that a LEFT SHIFT is Present. Performed By: #### L 101.9900, L500.4050, L501.6710, L100.0100 #### [facility] [address] [place], [address] Lymphocytes/100 WBC (Bld) 28.2 % Normal 19-41 [facility] Comment on above: Performed By: #### L 101.9900, L500.4050, L501.6710, L100.0100 #### [facility] [address] [place], [address] MCH (RBC) [Entitic mass] 28.0 pg Normal 27.0-32.0 [facility] Comment on above: Performed By: #### L 101.9900, L500.4050, L501.6710, L100.0100 #### [facility] [address] [place], [address] MCHC (RBC) [Mass/Vol] 35.3 g/dL Normal 32-36 [facility] Comment on above: Performed By: #### L 101.9900, L500.4050, L501.6710, L100.0100 #### [facility] [address] [place], [address] MCV (RBC) [Entitic vol] 79.5 fL Low 81-99 [facility] Comment on above: Performed By: #### L 101.9900, L500.4050, L501.6710, L100.0100 #### [facility] [address] [place], [address] Monocytes/100 WBC (Bld) 6.5 % Normal 0-10 [facility] Comment on above: Performed By: #### L 101.9900, L500.4050, L501.6710, L100.0100 #### [facility] [address] [place], [address] Neutrophils/100 WBC (Bld) 60.7 % Normal 47-70 [facility] Comment on above: Performed By: #### L 101.9900, L500.4050, L501.6710, L100.0100 #### [facility] [address] [place], [address] Nucleated RBC (Bld) [#/Vol] 0 10*3/uL Normal 0-5 [facility] Comment on above: Performed By: #### L 101.9900, L500.4050, L501.6710, L100.0100 #### [facility] [address] [place], [address] Platelet mean volume (Bld) [Entitic vol] 10.2 fL Normal 6.2-12.0 [facility] Comment on above: Performed By: #### L 101.9900, L500.4050, L501.6710, L100.0100 #### [facility] [address] [place], [address] Platelets (Bld) [#/Vol] 300 10*3/uL Normal 150-450 [facility] Comment on above: Performed By: #### L 101.9900, L500.4050, L501.6710, L100.0100 #### [facility] [address] [place], [address] RBC (Bld) [#/Vol] 4.92 10*6/uL Normal 4.2-5.4 [facility] Comment on above: Performed By: #### L 101.9900, L500.4050, L501.6710, L100.0100 #### [facility] [address] [place], [address] RDW SD 38.3 fl Normal 35.1-43.9 [facility] Comment on above: Performed By: #### L 101.9900, L500.4050, L501.6710, L100.0100 #### [facility] [address] [place], [address] WBC (Bld) [#/Vol] 12.3 10*3/uL High 4.4-11.0 [facility] Comment on above: Performed By: #### L 101.9900, L500.4050, L501.6710, L100.0100 #### [facility] [address] [place], [address] CRPon 01-26-2025 C-REACTIVE PROT 10.40 mg/L High 0.0-3.0 [facility] Comment on above: Performed By: #### L 101.9900, L500.4050, L501.6710, L100.0100 #### [facility] [address] [place], [address] Comprehensive Metabolic Prof ilon 01-26-2025 Albumin [Mass/Vol] 4.0 g/dL Normal 3.5-5.0 [facility] Comment on above: Performed By: #### L 101.9900, L500.4050, L501.6710, L100.0100 #### [facility] [address] [place], [address] Albumin/Globulin [Mass ratio] 1.3 {ratio} Normal 0.9-2.4 [facility] Comment on above: Performed By: #### L 101.9900, L500.4050, L501.6710, L100.0100 #### [facility] [address] [place], [address] ALK PHOS 79 U/L Normal 35-104 [facility] Comment on above: Performed By: #### L 101.9900, L500.4050, L501.6710, L100.0100 #### [facility] [address] [place], [address] ALT [Catalytic activity/Vol] 19 U/L Normal <=34 [facility] Comment on above: Performed By: #### L 101.9900, L500.4050, L501.6710, L100.0100 #### [facility] [address] [place], [address] AST [Catalytic activity/Vol] 21 U/L Normal <=31 [facility] Comment on above: Performed By: #### L 101.9900, L500.4050, L501.6710, L100.0100 #### [facility] [address] [place], [address] Bilirubin [Mass/Vol] 0.26 mg/dL Normal 0.00-1.30 [facility] Comment on above: Performed By: #### L 101.9900, L500.4050, L501.6710, L100.0100 #### [facility] [address] [place], [address] BUN/CRE 9.9 RATIO Low 10-20 [facility] Comment on above: Performed By: #### L 101.9900, L500.4050, L501.6710, L100.0100 #### [facility] [address] [place], [address] Calcium [Mass/Vol] 9.4 mg/dL Normal 7.6-11.0 [facility] Comment on above: Performed By: #### L 101.9900, L500.4050, L501.6710, L100.0100 #### [facility] [address] [place], [address] Chloride [Moles/Vol] 106 mmol/L Normal 98-108 [facility] Comment on above: Performed By: #### L 101.9900, L500.4050, L501.6710, L100.0100 #### [facility] [address] [place], [address] CO2 [Moles/Vol] 20.8 mmol/L Low 21.0-32.0 [facility] Comment on above: Performed By: #### L 101.9900, L500.4050, L501.6710, L100.0100 #### [facility] [address] [place], [address] Creatinine [Mass/Vol] 0.80 mg/dL Normal 0.70-1.20 [facility] Comment on above: Performed By: #### L 101.9900, L500.4050, L501.6710, L100.0100 #### [facility] [address] [place], [address] GAP 12 Normal 5-15 [facility] Comment on above: Performed By: #### L 101.9900, L500.4050, L501.6710, L100.0100 #### [facility] [address] [place], [address] GFR/1.73 sq M.predicted among non-blacks MDRD (S/P/Bld) [Vol rate/Area] 100 mL/min/{1.73_m2} Normal >60 [facility] Comment on above: Result Comment: mL/m in/1.73m2 CKD-EPI Creatinine Equation (2020) Performed By: #### L 101.9900, L500.4050, L501.6710, L100.0100 #### [facility] [address] [place], [address] Globulin (S) [Mass/Vol] 3.0 g/dL Normal 2.2-4.2 [facility] Comment on above: Performed By: #### L 101.9900, L500.4050, L501.6710, L100.0100 #### [facility] [address] [place], [address] Glucose [Mass/Vol] 78 mg/dL Normal 70-99 [facility] Comment on above: Performed By: #### L 101.9900, L500.4050, L501.6710, L100.0100 #### [facility] [address] [place], [address] Potassium [Moles/Vol] 3.9 mmol/L Normal 3.3-5.1 [facility] Comment on above: Performed By: #### L 101.9900, L500.4050, L501.6710, L100.0100 #### [facility] [address] [place], [address] Sodium [Moles/Vol] 138 mmol/L Normal 133-145 [facility] Comment on above: Performed By: #### L 101.9900, L500.4050, L501.6710, L100.0100 #### [facility] [address] [place], [address] T PROT 7.1 g/dL Normal 5.9-8.4 [facility] Comment on above: Performed By: #### L 101.9900, L500.4050, L501.6710, L100.0100 #### [facility] [address] [place], [address] Urea nitrogen [Mass/Vol] 8 mg/dL Normal 4-19 [facility] Comment on above: Performed By: #### L 101.9900, L500.4050, L501.6710, L100.0100 #### [facility] [address] [place], [address] Erythrocyte Sed Rateon 01-26 SED RATE 7 mm/hr Normal 0-30 [facility] Comment on above: Performed By: #### L 101.9900, L500.4050, L501.6710, L100.0100 #### [facility] [address] [place], [address] Gastroenterology Visit Repor ton 01-19-2025 Gastroenterology Visit Report [facility] [address] [place] [address] OFFICE VISIT Date of Service: 01/19/25 MR#: [id number] Acct: [id number] Name: GRETA ANDRES Rep #: [id number] : 1990 Provider: JERI Marquez Age/Sex: 34/F [place] [facility] [place] Status: Signed Intake Vital Signs 10/21/24 10:40 [...] but is unable to take while working. [facility] Medical History Kidney stone Cancer Anemia Migraine [...] the office today for f/u. I established 3.1.23 with chronic vomiting. Family hx [...] and sin (more content not included)... Normal [facility] 01-05-2025 [facility] Office Visit (UCWSTR ) GRETA ANDRES ([id number]) 1990 F Date Time Provider Department 01/05/25 8:15 AM TOMAS ALEXIS [facility] During your visit today, we recorded the following information about you: Temperature Pulse Respiration Blood pressure 98 degrees 84/minute 18/minute 115/79 Weight 87.8 kg Tomas Alexis APRN.METAL DRILL OPERATOR 01/05/2025 8:42 AM Signed This note [...] to start antibiotics. She will otherwise use iqki-vwi-gpvshjp treatments as necessary for symptomatic relief. - [...] Date Reviewed: 01/05/2025 Reviewed by: Tomas Alexis APRN.METAL DRILL OPERATOR - Fully Assessed Reason for Visit: [...] by mouth two times a day. - Mjglt-8-KUI-EPA-Fish Oil (FISH OIL) 1,000 (120-180) mg cap [...] Other acqu (more content not included)... Normal [facility] CNOVon 12-15-2024 CNOV Office Visit (FAMPWS ) GRETA ANDRES ([id number]) 1990 F Date Time Provider Department 12/15/24 1:40 PM RENARD ALMODOVAR During your visit today, we recorded the following information about you: Pulse Respiration Blood pressure Weight 75/minute 14/minute 154/88 88.9 kg Renard Almodovar, COMPENSATION SUPERVISOR.METAL DRILL OPERATOR 12/15/2024 1:58 PM Signed Chief Complaint [...] 08/07/2013 Bipolar 1 disorder (HCC) 02/14/2018 Seeing [facility] Behavioral Medicine as of 01/2018 Bipolar [...] Sacroiliitis, not elsewhere classified ([facility]) 02/20/2013 SI (sacroiliac) joint dysfunction 11/06/2015 [...] (PCOS) Sis (more content not included)... Normal [facility] HISTORY PHYSICALon HISTORY PHYSICAL HNO ID: [id number] Author: JUAN DANIEL CONTRERAS MD Service: Pain [...] 08/07/2013 Bipolar 1 disorder (HCC) 02/14/2018 Seeing [facility] Behavioral Medicine as of 01/2018 Bipolar [...] Sacroiliitis, not elsewhere classified ([facility]) 02/20/2013 SI (sacroiliac) joint dysfunction 11/06/2015 [...] mL/hr INTRAVENOUS CONTIN (more content not included)... [facility] OPERATIVE NOon 11-09-2024 OPERATIVE NO HNO ID: [id number] Author: JUAN DANIEL CONTRERAS MD Service: Pain Management Author Type: Physician Type: Operative Report Filed: 11/09/2024 13:20 Note Text: PATIENT NAME: Greta Andres SERVICE DATE: 11/09/2024 Preoperative Diagnosis: Left SI joint dysfunction Left SI joint pain Postoperative Diagnosis: Same Motorcycle Delivery Driver(s): None, I performed the entire procedure. ANESTHESIA: [...] RF ablation of the SI joint per [employer]. PROCEDURE: Left SI joint BIPOLAR RADIOFREQUENCY [...] DATE: November 09, 2024 TIME: 1:19 PM [facility] 11-02-2024 [facility] Office Visit (FAMSeWS ) GRETA ANDRES ([id number]) 1990 F Date Time Provider Department 11/02/24 9:40 AM RENARD ALMODOVAR During your visit today, we recorded the following information about you: Pulse Blood pressure Weight 112/minute 125/85 85.3 kg Renard Almodovar, KIMBERLEY.METAL DRILL OPERATOR 11/02/2024 9:28 AM Signed Chief Complaint [...] 08/07/2013 Bipolar 1 disorder (HCC) 02/14/2018 Seeing [facility] Behavioral Medicine as of 01/2018 Bipolar [...] Current Medication (more content not included)... Normal [facility] GRETA ANDRES ([id number]) 1990 F Date Time Provider Department 10/27/24 CHRISTINE DEAN During your visit today, we recorded the following information about you: Christine Dean PA-C 10/27/2024 9:05 AM Signed Let patient know that her TSH is 89. 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 We [...] lab results faxed to his office at [phone]. Ada Carson LPN Allergies As of Date: 10/27/2024 Noted Allergy Reaction ADHESIVE 02/12/2010 2 - Rash MORPHINE SULFATE 11/12/2008 9 - Itching Comments: had vicodin at same time, but has taken vicodin in past without reaction ADDERALL (DEXTROAMPHETAMINE-AMPHE* 5 - Intolerance Comments: Heart racing, chest pain, diaphoretic, dizzy Date Reviewed: 10/18/2024 Reviewed by: Nagi Ku APRN.METAL DRILL OPERATOR - Fully Assessed Reason for Visit: [...] Status:Closed by ADA CARSON on 10/27/[address] [facility] CBC W Auto Differential pane l (Bld)on 10-26-2024 Basophils (Bld) [#/Vol] 0.03 10*3/uL Normal <0.11 [facility] Comment on above: Order Comment: Speci men Type: BLOOD SPECIMENOrdering Facility: [facility] Address: [address] [place] [address] Performed By: #### 5 7021-8, 4537-7 ####[facility] LABCLIA [id number] [place] [address] [place] Basophils/100 WBC (Bld) 0.3 % Normal [facility] Comment on above: Order Comment: Speci men Type: BLOOD SPECIMENOrdering Facility: [facility] Address: [address] [place] [address] Performed By: #### 5 7021-8, 4536-7 ####[facility] LABCLIA [id number] [place] [address] [place] Differential cell count method Nom (Bld) Auto Normal [facility] Comment on above: Order Comment: Speci men Type: BLOOD SPECIMENOrdering Facility: [facility] Address: [address] [place] [address] Performed By: #### 5 7021-8, 4536-7 ####[facility] LABCLIA [id number] [place] [address] [place] Eosinophils (Bld) [#/Vol] 0.33 10*3/uL Normal <0.46 [facility] Comment on above: Order Comment: Speci men Type: BLOOD SPECIMENOrdering Facility: [facility] Address: [address] [place] [address] Performed By: #### 5 7021-8, 4536-7 ####[facility] LABCLIA [id number] [place] [address] [place] Eosinophils/100 WBC (Bld) 3.2 % Normal [facility] Comment on above: Order Comment: Speci men Type: BLOOD SPECIMENOrdering Facility: [facility] Address: [address] [place] [address] Performed By: #### 5 7021-8, 4536-7 ####[facility] LABCLIA [id number] [place] [address] [place] Erythrocyte distribution width (RBC) [Ratio] 14.3 % Normal 11.5-15.0 [facility] Comment on above: Order Comment: Speci men Type: BLOOD SPECIMENOrdering Facility: [facility] Address: [address] [place] [address] Performed By: #### 5 7021-8, 7-7 ####[facility] LABCLIA [id number] [place] [address] [place] Hematocrit (Bld) [Volume fraction] 42.4 % Normal 36.0-46.0 [facility] Comment on above: Order Comment: Speci men Type: BLOOD SPECIMENOrdering Facility: [facility] Address: [address] [place] [address] Performed By: #### 5 7021-8, 4536-7 ####[facility] LABCLIA [id number] [place] [address] [place] Hemoglobin (Bld) [Mass/Vol] 14.4 g/dL Normal 11.5-15.5 [facility] Comment on above: Order Comment: Speci men Type: BLOOD SPECIMENOrdering Facility: [facility] Address: [address] [place] [address] Performed By: #### 5 7021-8, 4536-7 ####[facility] LABCLIA [id number] [place] [address] [place] Immature granulocytes (Bld) [#/Vol] 0.09 10*3/uL Normal <0.10 [facility] Comment on above: Order Comment: Speci men Type: BLOOD SPECIMENOrdering Facility: [facility] Address: [address] [place] [address] Performed By: #### 5 7021-8, 7-7 ####[facility] LABCLIA [id number] [place] [address] [place] Immature granulocytes/100 WBC (Bld) 0.9 % Normal [facility] Comment on above: Order Comment: Speci men Type: BLOOD SPECIMENOrdering Facility: [facility] Address: [address] [place] [address] Performed By: #### 5 7021-8, 7-7 ####[facility] LABCLIA [id number] [place] [address] [place] Lymphocytes (Bld) [#/Vol] 2.48 10*3/uL Normal 1.00-4.00 [facility] Comment on above: Order Comment: Speci men Type: BLOOD SPECIMENOrdering Facility: [facility] Address: [address] [place] [address] Performed By: #### 5 7021-8, 4536-7 ####[facility] LABCLIA [id number] [place] [address] [place] Lymphocytes/100 WBC (Bld) 24.4 % Normal [facility] Comment on above: Order Comment: Speci men Type: BLOOD SPECIMENOrdering Facility: [facility] Address: [address] [place] [address] Performed By: #### 5 7021-8, 4536-7 ####[facility] LABCLIA [id number] [place] [address] [place] MCH (RBC) [Entitic mass] 27.9 pg Normal 26.0-34.0 [facility] Comment on above: Order Comment: Speci men Type: BLOOD SPECIMENOrdering Facility: [facility] Address: [address] [place] [address] Performed By: #### 5 7021-8, 7 ####[facility] LABCLIA [id number] [place] [address] [place] MCHC (RBC) [Mass/Vol] 34.0 g/dL Normal 30.5-36.0 [facility] Comment on above: Order Comment: Speci men Type: BLOOD SPECIMENOrdering Facility: [facility] Address: [address] [place] [address] Performed By: #### 5 7021-8, 4536-7 ####[facility] LABCLIA [id number] [place] [address] [place] MCV (RBC) [Entitic vol] 82.0 fL Normal 80.0-100.0 [facility] Comment on above: Order Comment: Speci men Type: BLOOD SPECIMENOrdering Facility: [facility] Address: [address] [place] [address] Performed By: #### 5 7021-8, 4536-7 ####[facility] LABIA [id number] [place] [address] [place] Monocytes (Bld) [#/Vol] 0.42 10*3/uL Normal <0.87 [facility] Comment on above: Order Comment: Speci men Type: BLOOD SPECIMENOrdering Facility: [facility] Address: [address] [place] [address] Performed By: #### 5 7021-8, 4536-7 ####[facility] LABIA [id number] [place] [address] [place] Monocytes/100 WBC (Bld) 4.1 % Normal [facility] Comment on above: Order Comment: Speci men Type: BLOOD SPECIMENOrdering Facility: [facility] Address: [address] [place] [address] Performed By: #### 5 7021-8, 4536-7 ####[facility] LABIA [id number] [place] [address] [place] Neutrophils (Bld) [#/Vol] 6.82 10*3/uL Normal 1.45-7.50 [facility] Comment on above: Order Comment: Speci men Type: BLOOD SPECIMENOrdering Facility: [facility] Address: [address] [place] [address] Performed By: #### 5 7021-8, 4536-7 ####[facility] LABIA [id number] [place] [address] [place] Neutrophils/100 WBC (Bld) 67.1 % Normal [facility] Comment on above: Order Comment: Speci men Type: BLOOD SPECIMENOrdering Facility: [facility] Address: [address] [place] [address] Performed By: #### 5 7021-8, 4537-7 ####[facility] LABCLIA [id number] [place] [address] [place] Nucleated RBC (Bld) [#/Vol] 10*3/uL Normal <0.01 [facility] Comment on above: Order Comment: Speci men Type: BLOOD SPECIMENOrdering Facility: [facility] Address: [address] [place] [address] Performed By: #### 5 7021-8, 4537-7 ####[facility] LABCLIA [id number] [place] [address] [place] Nucleated RBC/100 WBC (Bld) [Ratio] 0.0 /[address] [facility] Comment on above: Order Comment: Speci men Type: BLOOD SPECIMENOrdering Facility: [facility] Address: [address] [place] [address] Performed By: #### 5 7021-8, 4537-7 ####[facility] LABCLIA [id number] [place] [address] [place] Platelet mean volume (Bld) [Entitic vol] 10.4 fL Normal 9.0-12.7 [facility] Comment on above: Order Comment: Speci men Type: BLOOD SPECIMENOrdering Facility: [facility] Address: [address] [place] [address] Performed By: #### 5 7021-8, 7-7 ####[facility] LABCLIA [id number] [place] [address] [place] Platelets (Bld) [#/Vol] 249 10*3/uL Normal 150-400 [facility] Comment on above: Order Comment: Speci men Type: BLOOD SPECIMENOrdering Facility: [facility] Address: [address] [place] [address] Performed By: #### 5 7021-8, 4537-7 ####[facility] LABCLIA [id number] [place] [id number] [place] RBC (Bld) [#/Vol] 5.17 10*6/uL Normal 3.90-5.20 [facility] Comment on above: Order Comment: Speci men Type: BLOOD SPECIMENOrdering Facility: [facility] Address: [address] [place] [address] Performed By: #### 5 7021-8, 4537-7 ####[facility] LABCLIA [id number] [place] [address] [place] WBC (Bld) [#/Vol] 10.17 10*3/uL Normal 3.70-11.00 [facility] Comment on above: Order Comment: Speci men Type: BLOOD SPECIMENOrdering Facility: [facility] Address: [address] [place] [address] Performed By: #### 5 7021-8, 4537-7 ####[facility] LABCLIA [id number] [place] [address] [place] CNOVon 10-26-2024 CNOV Office Visit (FAMPWS ) GRETA ANDRES ([id number]) 1990 F Date Time Provider Department 10/26/24 7:40 AM [facility] During your visit today, we recorded the [...] little improvement with treatments. Was seen in [facility], and the ER. Toradol injection at [facility] did give temporary relief. Otherwise nothing [...] do her job. 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 With head movement, kneeling to standing, etc, [...] 08/07/2013 Bipolar 1 disorder (HCC) 02/14/2018 Seeing [facility] Behavioral Medicine as of 01/2018 Bipolar [...] Lupus (systemic lupus erythematosus) ([facility]) Migraine without aura and without status migrainosus, not intractable 05/20/2017 Multiple thyroid nodules 07/26/2019 Neoplasm of uncertain behavior of skin of back Obesity, Class I, BMI 30-34.9 03/03/2023 Other and unspecified ovarian cyst Ovarian cyst Other joint derangement, not elsewhere classified, lower leg 08/20/2008 Papillary thyroid carcinoma ([facility]) 07/21/2019 PMH - PAST MEDICAL HISTORY OF r thumb broken Post-surgical hypothyroidism 08/25/2019 Primary thyroid papillary carcinoma ([facility]) 07/21/2019 PTSD (post-traumatic stress disorder) 02/14/2018 PTSD (post-traumatic stress disorder) S/P total thyroidectomy 07/31/2019 Sacroiliitis, not elsewhere classified ([facility]) 02/20/2013 SI (sacroiliac) joint dysfunction 11/06/2015 [...] thyroid LA (more content not included)... Normal [facility] CRP SerPl-mCncon 10-26-2024 CRP [Mass/Vol] 1.1 mg/dL High <0.9 [facility] Comment on above: Order Comment: Speci men Type: BLOOD SPECIMENOrdering Facility: [facility] Address: [address] [place] [address] Performed By: #### 3 016-3, , , 1988-03 ####[facility] LABIA [id number] [place] [address] [place] Comprehensive metabolic 2000 panelon 10-26-2024 Albumin [Mass/Vol] 4.5 g/dL Normal 3.9-4.[address] [facility] Comment on above: Order Comment: Speci men Type: BLOOD SPECIMENOrdering Facility: [facility] Address: [address] [place] [address] Performed By: #### 3 016-3, , , 1988-03 ####[facility] LABIA [id number] [place] [address] [place] ALP [Catalytic activity/Vol] 93 U/L Normal 34-123 [facility] Comment on above: Order Comment: Speci men Type: BLOOD SPECIMENOrdering Facility: [facility] Address: [address] [place] [address] Performed By: #### 3 016-3, , , 1988-03 ####[facility] LABIA [id number] [address] [address] [place] ALT [Catalytic activity/Vol] 33 U/L Normal 7-38 [facility] Comment on above: Order Comment: Speci men Type: BLOOD SPECIMENOrdering Facility: [facility] Address: [address] [place] [address] Performed By: #### 3 016-3, 20169-6, , 1987-03 ####[facility] LABCLIA [id number] [address] [address] [place] Anion gap [Moles/Vol] 16 mmol/L High 8-15 [facility] Comment on above: Order Comment: Speci men Type: BLOOD SPECIMENOrdering Facility: [facility] Address: [address] [place] [address] Performed By: #### 3 016-3, , , 1987-03 ####[facility] LABCLIA [id number] [address] [address] [place] AST [Catalytic activity/Vol] 37 U/L High 13-35 [facility] Comment on above: Order Comment: Speci men Type: BLOOD SPECIMENOrdering Facility: [facility] Address: [address] [place] [address] Performed By: #### 3 016-3, , , 1987-03 ####[facility] LABCLIA [id number] [address] [address] [place] Bilirubin [Mass/Vol] 0.4 mg/dL Normal 0.2-1.3 [facility] Comment on above: Order Comment: Speci men Type: BLOOD SPECIMENOrdering Facility: [facility] Address: [address] [place] [address] Performed By: #### 3 016-3, , , 1988-03 ####[facility] LABCLIA [id number] [address] [address] [place] Calcium [Mass/Vol] 8.9 mg/dL Normal 8.5-10.[address] [facility] Comment on above: Order Comment: Speci men Type: BLOOD SPECIMENOrdering Facility: [facility] Address: [address] [place] [address] Performed By: #### 3 016-3, , , 1988-03 ####[facility] LABCLIA [id number] [place] [address] [place] Chloride [Moles/Vol] 101 mmol/L Normal 98-107 [facility] Comment on above: Order Comment: Speci men Type: BLOOD SPECIMENOrdering Facility: [facility] Address: [address] [place] [address] Performed By: #### 3 016-3, , , 1988-03 ####[facility] LABIA [id number] [place] [id number] [place] CO2 [Moles/Vol] 20 mmol/L Low 22-30 [facility] Comment on above: Order Comment: Speci men Type: BLOOD SPECIMENOrdering Facility: [facility] Address: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 Work Phone: Gross Description a1fgxXJsUZTrjOExUSFc NVxhbnNp KDNqxTToV3VzithqJBmbBV5dZY2m qCjyhINadSNbFADoQmPaq9sza455 kVGrn9muRIGTvvplvEu5dOywK76p v1E8RsvdM42bxBAlSJD8OAGyHVRu rIKzJDCpTLE7XUBftNMcM3kuSPNr TH0ewrtlZWloVFndCRZozCX1GKRa uZNaG5WdGFKaJTaaSTNsife3EwCs Qo5hoQTlyOdtZElwHmvacRcmn4Zu dCBcXGlkIDUxMDAwIFxcbmggXFx0 KYUnJSwtgHNbJP2ktAmlEzvgpWaa c5IgqLZpMMeuCWSyBXKtNYmeVQZj A5PFRQLfQfifCaUuGcDbEIn3IGp7 SV2RKoNxAWS0PTzxVKn9CGDlHFs5 VSepFJ7CWHOgYme1Ojf0OxPlVFW3 OSolMOvhhGVeTRauz8KeTrDqNJRd MSqocjE8DGTaxdVbgZxfwI8uViPp YbHIMpEIw6dcWIFYtJIer0rrlwcc EEAnzWUvVBoyDnCnSMEutFXXk5Px WVvhdIFwqzpqakTeIHMwT4QjpfCk ANriNMVmrv1wpXkrEPsgWZFrTPHh r4NkQL92VPJeVUkuhFL1mNWhaYWv VIlpFR08XM7hEGLkbB6nBU5tOSS7 UxH5fLRoNY42liS0jBKwbQFakQQi t3WeyN9pNXWsPCF0VWUnTNO7UQQv EXBqaX5aJGgeTANjeL9nc9WqTxDj RZEcKR5mhgZ9qxU6NVVkGF1wwFDe VUm3cFMaYRGhrc3dhgY2BBGwEMDo tUCjCIEcOPUxk7EapEXzmmOpAH6v NRF8embgPeVvWbGahTHrMmyuD20y IGFuZCBleHRlbmRzIHRvIHdpdGhp gzGiDxWbW26sjI5txBexLW9sJYDw d0OgnNJlY7mjCcCUrVNpBWIqhAZf rdUswIW2RDYlfYElIXGzwP9yILXs KPArxqhzAHKjqSHuxr3aKNiaSQLt NYWhnHXwQUxlEKFaQ8Eha73bLYit ZY4wKBTmtKPehKavp1BfsGw9wUBv KAwnBTN0zdJePYTaYOA7HTT2UCQa IHRpcHMsIEEyIHJlbWFpbmRlciBv XqG4iYIrkXMuSYoxNDDzlHCjJUpu ISCfD1Nfb7IlICrtoRwgCLLel15p gIFsRt9kvKTpJIW3JZRxZNBgjANv BMLKeStnuYSiVSj5UEQaAHVwgYmt TZR7XW6oFHTeCFHubHDwOBzlA8qq UIJlJSJaqCUeBYDseoYKCPJuKr4u KX6kWFC9ZYSwKaK6FXCURVMxhemj ZEZmVEDfiYRIc3IjYCekNTOfC6Vr T3QthvY7n7xscQxyd3HlbEOlTN4z cGFyfQ== [facility] Work Phone: Performing Lab d3daiILoGFFtaAMiKeOc MDAwXGFu p0loQSOkzBHrGzXfFiWbFsRyNsrj ePDuMAFaAoOvm8feh424lCEbl8at WLFoHdC6wYKlPYWlsIJmL475LHUi TDuuk9vkb1TdLQIdcJImz0F8XMSC cwdtqWq7qSjmT03ei0R0OxdeE9ta ESDqLRNxP0GxHK5iAVRoJux4MGU4 OKU1FWBlDZYyO2ImHO2iMHEmqSXf JMl0d2gapUabDFIzOXF1t2vkIXta ilGrXV7pvo8tmYh4s6ghzjSmPLBl LORhqADMYGFgE1UqpNijZs5nrIg0 cZurPrpmKQR4Jgb3SR8mcw02rys8 oKedHAEtkdfiGsY4TIryBHXvzvqq GKx5XTxiTEYhjMV2INVteBGkB2Ci CWczKM9nkcl0ZJM3OXyjELYkFtG0 XXCafZLiAIViuHnrHGrwq651VHN6 TlXvJE2qE4Ulo1A0iF0taKJwEJXu qUQeXqFyECSdgf0cbNSzASdwr6Qm TVR9cwJ0zWBtcJMhFRLvAU24Ncbx k9OhQepkz8HfU27jtBT3ERthn3vc XW5xAjU4xiXoYQxax8pxaK2aBzR4 DFunQW2eAT7cJOBpfK9kpiisHEAz VaGmcqacFSXjaUbtqzIhTe9lfLqa BON5IYdcQ5pzmU2eOgM7AXcpL2mn dT0jEBp7REbuxLH9AWIutP8gDG4p pbzlv0anHDheBSjyUYFdrrY2ckYg GCFthYKhC2PnoB9mIOZoBI4chbtg d4tfGIH5MHxwQBNuACM5QfJoQALt a5Sxjoj3LyEin6XmfTVwWKvfO63j k682DUZqapLmQ7zxbEPfvmumgOYg vyjaLEgncgJ6GZDuVDBwCXbzOQGg XGZzMjBcbGFuZzEwMzNcaGljaFxm LOkdJgHxGUGeKVamB6grDpPrYrAy OJXLhUXdor0rvEpmDGblnEDoxCBq bZX2gF2nXXRvvaSuin7cEGLguNFD pLV6NVaxqeJbD9rkflvmVUK1IMIz OHU3H7pcQRNJlaLaEOKsENPflIPc AIKHNFU7LZG1EEExTILELVLpHJE7 ASE3HRPyHBMocLAeEKKtzojlZEWs UQGsPGlzYRNiYZPgNcAjjBwqpM4b EbViWdTbIIehDC6tJAEgG5orqYOg BINuHIBcK5qwCtPgnT4kpSjdJMlr ZjJcZnMyMFxsdHJjaCBMYWJvcmF0 l7X2QIbnwJBysneiVOnfckPlQFkk jexpMFGkEGzyL3huWvTuNIQpwLam YYacu2XrOPQpECRlAiXaDQiuGMP3 w2E7CQymnVDtytEMYtDDTH1fpVOr usmfNZ2UDrdhgITillstCJunxnKi EFaaswdySGSiENslN5jkLmKaGFBw aYmjSUvxe9BmKWMqREDhWyGeuMDu fQ== [facility] Work Phone: [facility] Work Phone: [place] Lower extremity vein - le fton 05-12-2024 IMPRESSION: Negative study for proximal DVT in the left lower extremity. Negative study for calf DVT in the left lower extremity. Negative study for superficial thrombophlebitis in the imaged segments of the left lower extremity. Resource Forester: PSCB Transcribe Date/Time: May 12 2024 4:00P Dictated by : CRISTELA PARSONS MD This examination was interpreted and the report reviewed and electronically signed by: CRISTELA PARSONS MD on May 12 2024 4:00PM [facility] RADIOLOG[facility] SYNGO * * *Final Report* * [...] spontaneous respirophasic flow. Normal response to augmentation. [facility] Provider, [facility] - 05/12/2024 * * *Final Report* * [...] imaged segments of the left lower extremity. Resource Forester: PSCB Transcribe Date/Time: May 12 2024 4:00P Dictated by : CRISTELA PARSONS MD This examination was interpreted and the report reviewed and electronically signed by: CRISTELA PARSONS MD on May 12 2024 4:00PM EST [facility] Radiology Study observation (narrative) [facility] US Lower extremity vein - le ftOrdered By: Ccf Provider on 05-12-[address] [facility] CHG US SOFT TISSUE HEAD & NE CK REAL TIME IMGE DOCMon 05-04-2024 Radiology Study observation (narrative) [facility] THYROGLOBULIN&THYROGLOBULIN ABon 05-03-2024 Rough Rounder review Cristi (Unsp spec) [Interp] SEE COMMENTS [facility] Comment on above: Thyroglobulin (Tg) [...] testing methods are immunoenzymatic assays manufactured by [employer] and performed on the ABODO DXI 800. Values obtained from different assay methods or kits may be different and cannot be used interchangeably. The results cannot be interpreted as absolute evidence for the presence or absence of malignant disease. Test Performed by: [address] [place] [address] Angio Technologist: Tennille Mejia Ph.D.; CLIA# [id number] Thyroglobulin [Mass/Vol] <0.1 ng/mL [facility] Comment on above: REFERENCE VALUE Athyrotic <0.1 Intact Thyroid <=33 Thyroglobulin Ab IA Qn <1.8 NINF [facility] CHG US SOFT TISSUE HEAD & [...] suspicious lesions LEFT LATERAL: No suspicious nodes [facility] TSHon 05-01-2024 Interpretation and review of laboratory results Normal [facility] TSH Qn 1.138 m[IU]/L [facility] US Unspecified body regionOr dered By: Unassigned Pacs on 05-01-2024 [facility] Work Phone: [place] Unspecified body regionon 05-01-2024 Radiology Study observation (narrative) [facility] STREP A MOLECULAR (POC)on Procedural Control Valid [facility] Strep A (POCT) Negative Negative [facility] STREP A MOLECULAR (POC)on Procedural Control Valid [facility] Strep A (POCT) Negative Negative [facility] CTA NECK W IVCONon [facility] XR Lumbar spine AP and Later al and obliqueon 03-29-2023 IMPRESSION: Negative lumbar spine x-ray. Resource Forester: EITAN Transcribe Date/Time: Mar 29 2023 3:16P Dictated by : SRIDHAR ROSAS MD This examination was interpreted and the report reviewed and electronically signed by: SRIDHAR ROSAS MD on Mar 29 2023 3:17PM [facility] DIVISION OF RADIOLOGY * * *Final [...] spine are presented. FINDINGS: There are five lzh-gkx-vufiazu lumbar vertebra. No fracture or subluxations are noted. Questionable L3 vertebral body bone island. The disc spaces are well preserved. There is no significant osteophyte formation. DIVISION OF RADIOLOGY Provider, [facility] - 03/29/2023 * * *Final Report* [...] spine are presented. FINDINGS: There are five zcz-gzc-wqifkpz lumbar vertebra. No fracture or subluxations are noted. Questionable L3 vertebral body bone island. The disc spaces are well preserved. There is no significant osteophyte formation. IMPRESSION IMPRESSION: Negative lumbar spine x-ray. Resource Forester: PSCB Transcribe Date/Time: Mar 29 2023 3:16P Dictated by : SRIDHAR ROSAS MD This examination was interpreted and the report reviewed and electronically signed by: SRIDHAR ROSAS MD on Mar 29 2023 3:17PM EST [facility] XR Lumbar spine AP and Later al and obliqueOrdered By: Ccf Provider on 03-29-[address] [facility] XR Lumbar spine AP and Later al and obliqueon 03-27-2023 Radiology Study observation (narrative) [facility] XR FLUOROSCOPYon 02-12-[address] [facility] HCG ( test) Ql (U)o n 12-02-2022 Beta HCG ( test) Ql (U) Negative Normal NEGATIVE [facility] Comment on above: Performed By: #### 2 106-3 #### [facility] [address] [place] [address] Patient Support Representative - Rachelleparveen Hill HARPREET [id number] ABDOMEN FLAT AND UPRIGHTon 1 11-30-2021 ABDOMEN FLAT AND UPRIGHT EXAM: ABDOMEN FLAT AND UPRIGHT HISTORY: Abdominal pain COMPARISON: 05/01/2022 KUB IMPRESSION: No free air or obstruction. Moderate stool mainly in the right colon and sigmoid. Normal [facility] [place] US,HEAD/NECK TISSUES,REAL TIMEon 09-16-2022 Caitlyn [...] 0.9 cm LEFT LATERAL: No suspicious nodes [facility] Radiology Study observation (narrative) [facility] TSHon 09-16-2022 Interpretation and review of laboratory results Normal [facility] TSH Qn 3.175 m[IU]/L [facility] US Unspecified body regionOr dered By: Unassigned Pacs on 09-16-2022 [facility] Work Phone: US Unspecified body regionon 09-16-2022 Radiology Study observation (narrative) [facility] Comprehensive metabolic 2000 panelon 07-06-2022 Albumin [Mass/Vol] 4.9 g/dL 3.9 - 4.9 g/dL [facility] ALP [Catalytic activity/Vol] 65 U/L 34 - 123 U/L [facility] ALT [Catalytic activity/Vol] 26 U/L 7 - 38 U/L [facility] Anion gap [Moles/Vol] 11 mmol/L 9 - 18 mmol/L [facility] AST [Catalytic activity/Vol] 29 U/L 13 - 35 U/L [facility] Bilirubin [Mass/Vol] 0.5 mg/dL 0.2 - 1 .3 mg/dL [facility] Calcium [Mass/Vol] 9.3 mg/dL 8.5 - 10. 2 mg/dL [facility] Chloride [Moles/Vol] 103 mmol/L 97 - 10 5 mmol/L [facility] CO2 [Moles/Vol] 25 mmol/L 22 - 30 mmol/L [facility] Creatinine [Mass/Vol] 0.86 mg/dL 0.58 - 0.96 mg/dL [facility] Estimated Glomerular Filtration Rate 93 mL/min/1.73m >=60 mL/min/1.[address] [facility] Glucose [Mass/Vol] 86 mg/dL 74 - 99 mg/dL [facility] Potassium [Moles/Vol] 4.0 mmol/L 3.7 - 5.1 mmol/L [facility] Protein [Mass/Vol] 7.9 g/dL 6.3 - 8.0 g/dL [facility] Sodium [Moles/Vol] 139 mmol/L 136 - 144 mmol/L [facility] Urea nitrogen [Mass/Vol] 12 mg/dL 7 - 21 mg/dL [facility] LIPID PANEL, NONFASTINGon Cholesterol [Mass/Vol] 214 mg/dL High <200 mg/dL [facility] HDL Cholesterol, Nonfasting 47 mg/dL >39 mg/dL [facility] LDL Cholesterol, Nonfasting 141 mg/dL High <100 mg/dL [facility] LDL/HDL Ratio, Nonfasting 3.00 mg/dL High <2.54 mg/dL [facility] Non HDL Cholesterol, Nonfasting 167 mg/dL High <130 mg/dL [facility] Total Chol/HDL Ratio, Nonfasting 4.55 mg/dL <5.10 mg/dL [facility] Triglycerides, Nonfasting 132 mg/dL <150 mg/dL [facility] VLDL Cholesterol, Nonfasting 26 mg/dL <30 mg/dL [facility] ABDOMEN FLATon 05-01-2022 ABDOMEN FLAT EXAMINATION: [...] 3. Nonobstructive bowel pattern No convincing Normal [facility] URINALYSIS with reflex to CU LTUREon 05-01-2022 BACTERIA Normal TRACE [facility] Comment on above: Performed By: #### U AR #### [facility] [address] [place] [address] Patient Support Representative - Rachelle WILSONIA [id number] Performed for [facility] [address] [place] [address] Bilirubin Ql (U) Negative Normal NEGATIVE [facility] Comment on above: Performed By: #### U AR #### [facility] [address] [place] [address] Patient Support Representative - Rachelle WILSONIA [id number] Performed for [facility] [address] [place] [address] Clarity (U) CLEAR Normal CLEAR [facility] Comment on above: Performed By: #### U AR #### [facility] [address] [place] [address] Patient Support Representative - Rachelle WILSONIA [id number] Performed for [facility] [address] [place] [address] Color (U) YELLOW Normal YELLOW [facility] Comment on above: Performed By: #### U AR #### [facility] [address] [place] [address] Patient Support Representative - Rachelle [place] CLIA [id number] Performed for [facility] [address] [place] [address] Glucose Ql (U) Negative Normal NEGATIVE [facility] Comment on above: Performed By: #### U AR #### [facility] [address] [place] [address] Patient Support Representative - Rachelle WILSONIA [id number] Performed for [facility] [address] [place], [place] [address] Hemoglobin Ql (U) Negative Normal NEGATIVE [facility] Comment on above: Performed By: #### U AR #### [facility] [address] [place], [place] [address] Patient Support Representative - Rachelle MULLINS [id number] Performed for [facility] [address] [place], [place] [address] HMICRO MICROSCOPIC Normal [facility] Comment on above: Performed By: #### U AR #### [facility] [address] [place], [place] [address] Patient Support Representative - Rachelle WILSONIA [id number] Performed for [facility] [address] [place], [place] [address] Hyaline casts (Urine sed) [#/Area] Normal 0-8 [facility] Comment on above: Performed By: #### U AR #### [facility] [address] [place] [address] Patient Support Representative - Rachelle MULLINS [id number] Performed for [facility] [address] [place], [place] [address] KETONE TRACE Abnormal NEGATIVE [facility] Comment on above: Performed By: #### U AR #### [facility] [address] [place], [place] [address] Patient Support Representative - Rachelle WILSONIA [id number] Performed for [facility] [address] [place], [place] [address] Leukocyte esterase Test strip Ql (U) Negative Normal TRACE [facility] Comment on above: Performed By: #### U AR #### [facility] [address] [place], [place] [address] Patient Support Representative - Rachelle WILSONIA [id number] Performed for [facility] [address] [place], [place] [address] Nitrite Ql (U) Negative Normal NEGATIVE [facility] Comment on above: Performed By: #### U AR #### [facility] [address] [place] [address] Patient Support Representative - Rachelle MULLINS [id number] Performed for [facility] [address] [place] [address] pH (U) 6.0 [pH] Normal 5.5-7.5 [facility] Comment on above: Performed By: #### U AR #### [facility] [address] [place] [address] Patient Support Representative - Rachelle MULLINS [id number] Performed for [facility] [address] [place], [place] [address] Protein Ql (U) Negative Normal NEGATIVE [facility] Comment on above: Performed By: #### U AR #### [facility] [address] [place] [address] Patient Support Representative - Rachelle MULLINS [id number] Performed for [facility] [address] [place], [place] [address] RBC LM.HPF (Urine sed) [#/Area] Normal 0-4 [facility] Comment on above: Performed By: #### U AR #### [facility] [address] [place] [address] Patient Support Representative - Rachelle MULLINS [id number] Performed for [facility] [address] [place], [place] [address] Specific gravity (U) [Rel density] 1.028 Normal 1.010-1.035 [facility] Comment on above: Performed By: #### U AR #### [facility] [address] [place] [address] Patient Support Representative - Rachelle MULLINS [id number] Performed for [facility] [address] [place], [place] [address] SQUAMOUS EPITHELIALS Normal 0-5 [facility] Comment on above: Performed By: #### U AR #### [facility] [address] [place] [address] Patient Support Representative [facility]formerly [facility] HARPREET [id number] Performed for [facility] [address] [place], [place] [address] Urobilinogen Qn (U) 1.0 {Herbert'U}/dL Normal <=1.0 [facility] Comment on above: Performed By: #### U AR #### [facility] [address] [place], [place] [address] Patient Support Representative - Rachelle WILSONIA [id number] Performed for [facility] [address] [place], [place] [address] WBC LM.HPF (Urine sed) [#/Area] Normal 0-5 [facility] Comment on above: Performed By: #### U AR #### [address] [place], [place] [address] Patient Support Representative - Rachelle WILSONIA [id number] Performed for [facility] [address] [place] [address] [place] US,HEAD/NECK TISSUES,REAL TIMEon 03-20-2022 Radiology Study observation (narrative) [facility] THYROGLOBULIN&THYROGLOBULIN ABon 03-19-2022 Rough Rounder review Cristi (Unsp spec) [Interp] SEE COMMENTS [facility] Comment on above: Thyroglobulin (Tg) [...] testing methods are immunoenzymatic assays manufactured by [employer] and performed on the [employer] DXI 800. Values obtained from different assay methods or kits may be different and cannot be used interchangeably. The results cannot be interpreted as absolute evidence for the presence or absence of malignant disease. Test Performed by: [facility] [address] [place] [address] Angio Technologist: Iram Cuellar M.D. Ph.D.; CLIA# [id number] Thyroglobulin [Mass/Vol] <0.1 ng/mL [facility] Comment on above: REFERENCE VALUE Athyrotic <0.1 Intact Thyroid <=33 Thyroglobulin Ab IA Qn <1.8 <1.8 IU/mL [facility] No Panel InformationOrdered By: Unassigned Pacs on 03-18-2022 [facility] Work Phone: [place] US,HEAD/NECK TISSUES,REAL TIMEon [...] 0.2 cm LEFT LATERAL: No suspicious nodes [facility] TSHon 03-18-2022 Interpretation and review of laboratory results Normal [facility] TSH Qn 1.140 m[IU]/L [facility] US Unspecified body regionon 03-18-2022 Radiology Study observation (narrative) [facility] MANDIBLE COMPLETEon 03-11-20 MANDIBLE COMPLETE EXAM: [...] of the left mandible is noted. Radiopaque shinto associated with the crown of molar within the right mandible are noted. Temporomandibular articulations unremarkable without significant degenerative change. IMPRESSION: 1. Unremarkable soft tissue neck. Prevertebral soft tissues, epiglottis and area of glottic folds appear otherwise unremarkable. 2. Prior dental repair. 3. No acute mandibular fracture or dislocation. Temporomandibular articulations appear otherwise unremarkable. Normal [facility] SOFT TISSUE NECK AP & LATERA [...] of the left mandible is noted. Radiopaque shinto associated with the crown of molar within the right mandible are noted. Temporomandibular articulations unremarkable without significant degenerative change. IMPRESSION: 1. Unremarkable soft tissue neck. Prevertebral soft tissues, epiglottis and area of glottic folds appear otherwise unremarkable. 2. Prior dental repair. 3. No acute mandibular fracture or dislocation. Temporomandibular articulations appear otherwise unremarkable. Normal [facility] CORONAVIRUS ABBOTTon -25-2 021 HMOLE TESTING PERFORMED BY MOLECULAR METHOD Normal [facility] Comment on above: Performed By: #### C OVABOT #### [facility] [address] [place] [address] Patient Support Representative - Rachelle WILSONIA [id number] HPCRA TEST PERFORMED USING MANRIQUEZ ID NOW Normal [facility] Comment on above: Performed By: #### C OVABOT #### [facility] [address] [place] [address] Patient Support Representative - Rachelle WILSONIA [id number] SARS-CoV-2 (COVID-19) RNA PATRIA+probe Ql (Unsp spec) Detected Abnormal NOT DETECTED [facility] Comment on above: Performed By: #### C OVABOT #### [facility] [address] [place] [address] Patient Support Representative - Rachelle MULLINS [id number] XR Ankle - left AP and Later al and obliqueon 07-17-2021 IMPRESSION: Small stuart int effusion of the left ankle. No acute fractures seen. Resource Forester: PSCKeke Transcribe Date/Time: Jul 17 2021 12:37P Dictated by : SRIDHAR ROSAS MD This examination was interpreted and the report reviewed and electronically signed by: SRIDHAR ROSAS MD on Jul 17 2021 12:40PM [facility] DIVISION OF RADIOLOGY * * *Final [...] soft tissue swelling. DIVISION OF RADIOLOGY Provider, [facility] - 07/17/2021 * * *Final Report* * [...] the left ankle. No acute fractures seen. Resource Forester: PSCB Transcribe Date/Time: Jul 17 2021 12:37P Dictated by : SRIDHAR ROSAS MD This examination was interpreted and the report reviewed and electronically signed by: SRIDHAR ROSAS MD on Jul 17 2021 12:40PM EST [facility] Radiology Study observation (narrative) [facility] XR Ankle - left AP and Later al and obliqueOrdered By: Ccf Provider on 07-17-[address] [facility] Ammoniaon 02-08-2021 Ammonia (P) [Mass/Vol] 27 umol/L Normal 11-[address] [facility] Reference Lab Comment on above: Performed By: #### N H3, MG1, CMP, CBCDIF, LI, VPA, XB12F #### [facility] [address] [place] [address] CBC and Differentialon 02-08 Abs Baso <0.03 Normal <0.[address] [facility] Reference Lab Comment on above: Performed By: #### N H3, MG1, CMP, CBCDIF, LI, VPA, XB12F #### [facility] [address] [place] [phone] Abs Fountain 0.56 k/uL Normal <0.[address] [facility] Reference Lab Comment on above: Performed By: #### N H3, MG1, CMP, CBCDIF, LI, VPA, XB12F #### [facility] [address] [place] [address] Abs Neut 8.43 k/uL High 1.45-7.[address] [facility] Reference Lab Comment on above: Performed By: #### N H3, MG1, CMP, CBCDIF, LI, VPA, XB12F #### [facility] [address] [place] [address] Absolute nRBC <0.01 Normal <0.[address] [facility] Reference Lab Comment on above: Performed By: #### N H3, MG1, CMP, CBCDIF, LI, VPA, XB12F #### [facility] [address] [place], [place] [address] Basophils/100 WBC (Bld) 0.2 % Normal [facility] Reference Lab Comment on above: Performed By: #### N H3, MG1, CMP, CBCDIF, LI, VPA, XB12F #### [facility] [address] [place] [address] DTYPE ADIFF Normal [facility] Reference Lab Comment on above: Performed By: #### N H3, MG1, CMP, CBCDIF, LI, VPA, XB12F #### [facility] [address] [place] [address] Eosinophils (Bld) [#/Vol] 0.12 10*3/uL Normal <0.[address] [facility] Reference Lab Comment on above: Performed By: #### N H3, MG1, CMP, CBCDIF, LI, VPA, XB12F #### [facility] [address] [place] [address] Eosinophils/100 WBC (Bld) 1.0 % Normal [facility] Reference Lab Comment on above: Performed By: #### N H3, MG1, CMP, CBCDIF, LI, VPA, XB12F #### [facility] [address] [place] [address] Erythrocyte distribution width (RBC) [Ratio] 13.4 % Normal 11.5-15.[address] [facility] Reference Lab Comment on above: Performed By: #### N H3, MG1, CMP, CBCDIF, LI, VPA, XB12F #### [facility] [address] [place] [address] Hematocrit (Bld) [Volume fraction] 44.6 % Normal 36.0-46.[address] [facility] Reference Lab Comment on above: Performed By: #### N H3, MG1, CMP, CBCDIF, LI, VPA, XB12F #### [facility] [address] [place] [id number] Hemoglobin (Bld) [Mass/Vol] 14.0 g/dL Normal 11.5-15.[address] [facility] Reference Lab Comment on above: Performed By: #### N H3, MG1, CMP, CBCDIF, LI, VPA, XB12F #### [facility] [address] [place] [address] Lymphocytes (Bld) [#/Vol] 2.63 10*3/uL Normal 1.00-4.[address] [facility] Reference Lab Comment on above: Performed By: #### N H3, MG1, CMP, CBCDIF, LI, VPA, XB12F #### [facility] [address] [place] [address] Lymphocytes/100 WBC (Bld) 22.4 % Normal [facility] Reference Lab Comment on above: Performed By: #### N H3, MG1, CMP, CBCDIF, LI, VPA, XB12F #### [facility] [address] [place] [address] MCH (RBC) [Entitic mass] 27.9 pG Normal 26.0-34.[address] [facility] Reference Lab Comment on above: Performed By: #### N H3, MG1, CMP, CBCDIF, LI, VPA, XB12F #### [facility] [address] [place] [address] MCHC (RBC) [Mass/Vol] 31.4 g/dL Normal 30.5-36.[address] [facility] Reference Lab Comment on above: Performed By: #### N H3, MG1, CMP, CBCDIF, LI, VPA, XB12F #### [facility] [address] [place] [address] MCV (RBC) [Entitic vol] 88.8 fL Normal 80.0-100.[address] [facility] Reference Lab Comment on above: Performed By: #### N H3, MG1, CMP, CBCDIF, LI, VPA, XB12F #### [facility] [address] [place] [address] Monocytes/100 WBC (Bld) 4.8 % Normal [facility] Lab Comment on above: Performed By: #### N H3, MG1, CMP, CBCDIF, LI, VPA, XB12F #### [facility] [address] [place] [address] Neutrophils/100 WBC (Bld) 71.6 % Normal [facility] Lab Comment on above: Performed By: #### N H3, MG1, CMP, CBCDIF, LI, VPA, XB12F #### [facility] [address] [place] [address] NRBCs 0.0 /100 WBC Normal [address] [facility] Reference Lab Comment on above: Performed By: #### N H3, MG1, CMP, CBCDIF, LI, VPA, XB12F #### [facility] [address] [place] [address] Platelet mean volume (Bld) [Entitic vol] 10.9 fL Normal 9.0-12.[address] [facility] Reference Lab Comment on above: Performed By: #### N H3, MG1, CMP, CBCDIF, LI, VPA, XB12F #### [facility] [address] [place] [address] Platelets (Bld) [#/Vol] 278 10*3/uL Normal 150-[address] [facility] Reference Lab Comment on above: Performed By: #### N H3, MG1, CMP, CBCDIF, LI, VPA, XB12F #### [facility] [address] [place] [address] RBC (Bld) [#/Vol] 5.02 10*6/uL Normal 3.90-5.20 [facility] Reference Lab Comment on above: Performed By: #### N H3, MG1, CMP, CBCDIF, LI, VPA, XB12F #### [facility] [address] [place], [place] [phone] WBC (Bld) [#/Vol] 11.76 10*3/uL High 3.70-11.00 [facility] Reference Lab Comment on above: Performed By: #### N H3, MG1, CMP, CBCDIF, LI, VPA, XB12F #### [facility] [address] [place] [address] Comp Metabolic Panelon 02-08 Albumin [Mass/Vol] 4.5 g/dL Normal 3.9-4.9 [facility] Reference Lab Comment on above: Performed By: #### N H3, MG1, CMP, CBCDIF, LI, VPA, XB12F #### [facility] [address] [place] [address] ALP [Catalytic activity/Vol] 59 U/L Normal 34-[address] [facility] Reference Lab Comment on above: Performed By: #### N H3, MG1, CMP, CBCDIF, LI, VPA, XB12F #### [facility] [address] [place] [address] ALT [Catalytic activity/Vol] 9 U/L Normal 7-[address] [facility] Reference Lab Comment on above: Performed By: #### N H3, MG1, CMP, CBCDIF, LI, VPA, XB12F #### [facility] [address] [place], [place] [address] Anion gap [Moles/Vol] 13 mmol/L Normal 9-[address] [facility] Reference Lab Comment on above: Performed By: #### N H3, MG1, CMP, CBCDIF, LI, VPA, XB12F #### [facility] [address] [place], [place] [address] AST [Catalytic activity/Vol] 18 U/L Normal 13-[address] [facility] Reference Lab Comment on above: Performed By: #### N H3, MG1, CMP, CBCDIF, LI, VPA, XB12F #### [facility] [address] [place] [address] Bilirubin Ql (U) 0.2 mg/dL Normal 0.2-1.3 [facility] Reference Lab Comment on above: Performed By: #### N H3, MG1, CMP, CBCDIF, LI, VPA, XB12F #### [facility] [address] [place] [phone] Calcium [Mass/Vol] 9.2 mg/dL Normal 8.5-10.2 [facility] Reference Lab Comment on above: Performed By: #### N H3, MG1, CMP, CBCDIF, LI, VPA, XB12F #### [facility] [address] [place] [phone] Chloride [Moles/Vol] 109 mmol/L High 97-105 [facility] Reference Lab Comment on above: Performed By: #### N H3, MG1, CMP, CBCDIF, LI, VPA, XB12F #### [facility] [address] [place] [phone] CO2 [Moles/Vol] 21 mmol/L Low 22-[address] [facility] Reference Lab Comment on above: Performed By: #### N H3, MG1, CMP, CBCDIF, LI, VPA, XB12F #### [facility] [address] [place] [phone] Creatinine [Mass/Vol] 0.75 mg/dL Normal 0.58-0.[address] [facility] Reference Lab Comment on above: Performed By: #### N H3, MG1, CMP, CBCDIF, LI, VPA, XB12F #### [facility] [address] [place] [phone] eGFR- Amer. >60 Normal [facility] Reference Lab Comment on above: Performed By: #### N H3, MG1, CMP, CBCDIF, LI, VPA, XB12F #### [facility] [address] [place], [place] [address] GFR/1.73 sq M predicted among non-blacks MDRD (S/P/Bld) [Vol rate/Area] mL/min/{1.73_m2} Normal [facility] Reference Lab Comment on above: Performed By: #### N H3, MG1, CMP, CBCDIF, LI, VPA, XB12F #### [facility] [address] [place], [place] [address] Glucose [Mass/Vol] 63 mg/dL Low 74-99 [facility] Reference Lab Comment on above: Performed By: #### N H3, MG1, CMP, CBCDIF, LI, VPA, XB12F #### [facility] [address] [place] [address] Potassium [Moles/Vol] 3.6 mmol/L Low 3.7-5.[address] [facility] Reference Lab Comment on above: Performed By: #### N H3, MG1, CMP, CBCDIF, LI, VPA, XB12F #### [facility] [address] [place] [address] Protein [Mass/Vol] 7.5 g/dL Normal 6.3-8.0 [facility] Reference Lab Comment on above: Performed By: #### N H3, MG1, CMP, CBCDIF, LI, VPA, XB12F #### [facility] [address] [place], [place] [address] Sodium [Moles/Vol] 143 mmol/L Normal 136-144 [facility] Reference Lab Comment on above: Performed By: #### N H3, MG1, CMP, CBCDIF, LI, VPA, XB12F #### [facility] [address] [place] [address] Urea nitrogen [Mass/Vol] 7 mg/dL Normal 7-[address] [facility] Reference Lab Comment on above: Performed By: #### N H3, MG1, CMP, CBCDIF, LI, VPA, XB12F #### [facility] [address] [place] [address] Lithiumon 02-08-2021 [place] [Moles/Vol] 0.7 mmol/L Normal 0.6-1.2 [facility] Reference Lab Comment on above: Performed By: #### N H3, MG1, CMP, CBCDIF, LI, VPA, XB12F #### [facility] [address] [place] [address] Magnesiumon 02-08-2021 Magnesium [Mass/Vol] 2.2 mg/dL Normal 1.7-2.3 [facility] Reference Lab Comment on above: Performed By: #### N H3, MG1, CMP, CBCDIF, LI, VPA, XB12F #### [facility] [address] [place] [address] Valproic Acidon 02-08-2021 Valproic Acid 144.8 ug/mL High 50-[address] [facility] Reference Lab Comment on above: Performed By: #### N H3, MG1, CMP, CBCDIF, LI, VPA, XB12F #### [facility] [address] [place] [address] Vit B12 / Folate For Ref Lab Use Onlyon 02-08-2021 Cobalamin (Vitamin B12) [Mass/Vol] 502 pg/mL Normal 232-[address] [facility] Reference Lab Comment on above: Performed By: #### N H3, MG1, CMP, CBCDIF, LI, VPA, XB12F #### [facility] [address] [place] [address] Folate [Mass/Vol] 9.1 ng/mL Normal >4.7 [facility] Comment on above: Performed By: #### N H3, MG1, CMP, CBCDIF, LI, VPA, XB12F #### [facility] [address] [place] [address] Comp Metabolic Panelon 08-14 Albumin [Mass/Vol] 4.2 g/dL Normal 3.9-4.9 [facility] Reference Lab Comment on above: Performed By: #### C MP, LI #### [facility] [address] [place], [place] [address] ALP [Catalytic activity/Vol] 61 U/L Normal 34-[address] [facility] Reference Lab Comment on above: Performed By: #### C MP, LI #### [facility] [address] [place] [address] ALT [Catalytic activity/Vol] 10 U/L Normal 7-[address] [facility] Reference Lab Comment on above: Performed By: #### C RADHA, LI #### [facility] [address] [place] [address] Anion gap [Moles/Vol] 11 mmol/L Normal 9-[address] [facility] Reference Lab Comment on above: Performed By: #### C MP, LI #### [facility] [address] [place] [address] AST [Catalytic activity/Vol] 21 U/L Normal 13-[address] [facility] Reference Lab Comment on above: Performed By: #### C MP, LI #### [facility] [address] [place] [address] Bilirubin Ql (U) 0.2 mg/dL Normal 0.2-1.3 [facility] Reference Lab Comment on above: Performed By: #### C MP, LI #### [facility] [address] [place] [address] Calcium [Mass/Vol] 9.1 mg/dL Normal 8.5-10.2 [facility] Reference Lab Comment on above: Performed By: #### C MP, LI #### [facility] [address] [place] [address] Chloride [Moles/Vol] 106 mmol/L High 97-105 [facility] Reference Lab Comment on above: Performed By: #### C RADHA, LI #### [facility] [address] [place], [place] [address] CO2 [Moles/Vol] 23 mmol/L Normal 22-[address] [facility] Reference Lab Comment on above: Performed By: #### C RADHA, LI #### [facility] [address] [place], [place] [address] Creatinine [Mass/Vol] 0.75 mg/dL Normal 0.58-0.[address] [facility] Reference Lab Comment on above: Performed By: #### C RADHA, LI #### [facility] [address] [place], [place] [address] eGFR- Amer. >60 Normal [facility] Reference Lab Comment on above: Performed By: #### C RADHA, LI #### [facility] [address] [place], [place] [address] GFR/1.73 sq M predicted among non-blacks MDRD (S/P/Bld) [Vol rate/Area] mL/min/{1.73_m2} Normal [facility] Reference Lab Comment on above: Performed By: #### C RADHA, LI #### [facility] [address] [place], [place] [address] Glucose [Mass/Vol] 73 mg/dL Low 74-99 [facility] Reference Lab Comment on above: Performed By: #### C RADHA, LI #### [facility] [address] [place], [place] [address] Potassium [Moles/Vol] 3.7 mmol/L Normal 3.7-5.[address] [facility] Reference Lab Comment on above: Performed By: #### C RADHA, LI #### [facility] [address] [place], [place] [address] Protein [Mass/Vol] 7.0 g/dL Normal 6.3-8.0 [facility] Reference Lab Comment on above: Performed By: #### C VJ GARCIA #### [facility] [address] [place], [place] [phone] Sodium [Moles/Vol] 140 mmol/L Normal 136-144 [facility] Reference Lab Comment on above: Performed By: #### C RADHA, VJ #### [facility] [address] [place], [place] [id number] Urea nitrogen [Mass/Vol] 7 mg/dL Normal 7-[address] [facility] Reference Lab Comment on above: Performed By: #### C RADHA, VJ #### [facility] [address] [place], [place] [id number] Lithiumon 08-14-2020 [place] [Moles/Vol] mmol/L Low 0.6-1.2 [facility] Reference Lab Comment on above: Performed By: #### C VJ GARCIA #### [facility] [address] [place], [place] [id number] NM THY CA UPTAKEon 0 NM THY [...] NO EVIDENCE FOR DISTANT FUNCTIONAL THYROID METASTASES. Resource Forester: EITAN Transcribe Date/Time: May 01 2020 9:59A Dictated by : IKER SILVA MD This examination was interpreted and the report reviewed and electronically signed by: IKER SILVA MD on May 01 2020 10:32AM EST [id number] [facility] THY CA WBon 05-01-2020 OK THY CA WB * * *Final Report* [...] NO EVIDENCE FOR DISTANT FUNCTIONAL THYROID METASTASES. Resource Forester: [email or web address] Transcribe Date/Time: May 01 2020 9:59A Dictated by : IKER SILVA MD This examination was interpreted and the report reviewed and electronically signed by: IKER SILVA MD on May 01 2020 10:32AM EST [id number] [facility] NM TUMOR SPECTon 05-01-2020 NM TUMOR [...] NO EVIDENCE FOR DISTANT FUNCTIONAL THYROID METASTASES. Resource Forester: PSCB Transcribe Date/Time: May 01 2020 9:59A Dictated by : IKER SILVA MD This examination was interpreted and the report reviewed and electronically signed by: IKER SILVA MD on May 01 2020 10:32AM EST [id number] [facility] Comp Metabolic Panelon 01-24 Albumin [Mass/Vol] 4.7 g/dL Normal 3.9-4.9 [facility] Reference Lab Comment on above: Performed By: #### C VJ GARCIA #### [facility] Routine Lab [address] [place], [place] [address] ALP [Catalytic activity/Vol] 65 U/L Normal 34-[address] [facility] Reference Lab Comment on above: Performed By: #### C MP, LI #### [facility] [address] [place], [place] [address] ALT [Catalytic activity/Vol] 11 U/L Normal 7-[address] [facility] Reference Lab Comment on above: Performed By: #### C MP, LI #### [facility] [address] [place], [place] [address] Anion gap [Moles/Vol] 12 mmol/L Normal 9-[address] [facility] Reference Lab Comment on above: Performed By: #### C MP, LI #### [facility] [address] [place], [place] [address] AST [Catalytic activity/Vol] 21 U/L Normal 13-[address] [facility] Reference Lab Comment on above: Performed By: #### C MP, LI #### [facility] [address] [place], [place] [address] Bilirubin Ql (U) 0.3 mg/dL Normal 0.2-1.3 [facility] Reference Lab Comment on above: Performed By: #### C MP, LI #### [facility] [address] [place], [place] [address] Calcium [Mass/Vol] 9.4 mg/dL Normal 8.5-10.2 [facility] Reference Lab Comment on above: Performed By: #### C MP, LI #### [facility] [address] [place], [place] [address] Chloride [Moles/Vol] 103 mmol/L Normal 97-105 [facility] Reference Lab Comment on above: Performed By: #### C MP, LI #### [facility] [address] [place], [place] [address] CO2 [Moles/Vol] 23 mmol/L Normal 22-[address] [facility] Reference Lab Comment on above: Performed By: #### C MP, LI #### [facility] [address] [place], [place] [address] Creatinine [Mass/Vol] 0.86 mg/dL Normal 0.58-0.[address] [facility] Reference Lab Comment on above: Performed By: #### C MP, LI #### [facility] [address] [place], [place] [address] eGFR- Amer. >60 Normal [facility] Reference Lab Comment on above: Performed By: #### C RADHA, LI #### [facility] [address] [place] [address] GFR/1.73 sq M predicted among non-blacks MDRD (S/P/Bld) [Vol rate/Area] mL/min/{1.73_m2} Normal [facility] Reference Lab Comment on above: Performed By: #### C RADHA, LI #### [facility] [address] [place], [place] [address] Glucose [Mass/Vol] 77 mg/dL Normal 74-99 [facility] Reference Lab Comment on above: Performed By: #### C MP, LI #### [facility] [address] [place], [place] [address] Potassium [Moles/Vol] 4.3 mmol/L Normal 3.7-5.[address] [facility] Reference Lab Comment on above: Performed By: #### C MP, LI #### [facility] [address] [place], [place] [address] Protein [Mass/Vol] 7.2 g/dL Normal 6.3-8.0 [facility] Reference Lab Comment on above: Performed By: #### C MP, LI #### [facility] [address] [place], [place] [address] Sodium [Moles/Vol] 138 mmol/L Normal 136-144 [facility] Reference Lab Comment on above: Performed By: #### C RADHA, VJ #### [facility] Routine Lab [address] [place] [id number] Urea nitrogen [Mass/Vol] 9 mg/dL Normal 7-[address] [facility] Reference Lab Comment on above: Performed By: #### C RADHA, VJ #### [facility] Routine Lab [address] [place] [address] Lithiumon 01-25-2020 [place] [Moles/Vol] 0.9 mmol/L Normal 0.6-1.2 [facility] Reference Lab Comment on above: Performed By: #### C RADHA, VJ #### [facility] Routine Lab [address] [place], [place] [address] Vital Signs Date Time Vital Sign Value Performing Clinician Facility 07-18-2025 09:08-0400 Diastolic blood pressure 72 mm[Hg] Nagi Red MD Work Phone: [facility] 07-18-2025 09:08-0400 Systolic blood pressure 114 mm[Hg] Nagi Red MD Work Phone: [facility] 07-18-2025 08:40-0400 Body mass index (BMI) [Ratio] 33.08 kg/m2 Nagi Red MD Work Phone: [facility] 07-18-2025 08:40-0400 Body weight 90.17 kg Nagi Red MD Work Phone: [facility] 07-18-2025 08:40-0400 Heart rate 78 /min Nagi Red MD Work Phone: [facility] 07-18-2025 08:40-0400 Respiratory rate 16 /min Nagi Red MD Work Phone: [facility] 06-27-2025 14:02-0400 Body height 165.1 cm Caitlyn Rivera MD Work Phone: [facility] 06-27-2025 14:02-0400 Body mass index (BMI) [Ratio] 32.7 kg/m2 Caitlyn Rivera MD Work Phone: [facility] 06-27-2025 14:02-0400 Body temperature 98.1 [degF] Caitlyn Rivera MD Work Phone: [facility] 06-27-2025 14:02-0400 Body weight 89.13 kg Caitlyn Rivera MD Work Phone: [facility] 06-27-2025 14:02-0400 Diastolic blood pressure 95 mm[Hg] Caitlyn Rivera MD Work Phone: [facility] 06-27-2025 14:02-0400 Heart rate 80 /min Caitlyn Rivera MD Work Phone: [facility] 06-27-2025 14:02-0400 Respiratory rate 16 /min Caitlyn Rivera MD Work Phone: [facility] 06-27-2025 14:02-0400 SaO2% (BldA) [Mass fraction] 98 % Caitlyn Rivera MD Work Phone: [facility] 06-27-2025 14:02-0400 Systolic blood pressure 159 mm[Hg] Caitlyn Rivera MD Work Phone: [facility] 06-15-2025 12:06-0400 Diastolic blood pressure 100 mm[Hg] Greta Mbanugo DO Work Phone: [facility] 06-15-2025 12:06-0400 Heart rate 91 /min Greta Mbanugo DO Work Phone: [facility] 06-15-2025 12:06-0400 Systolic blood pressure 136 mm[Hg] Greta Mbanugo DO Work Phone: [facility] 06-07-2025 12:58-0400 Body height 165.1 cm Sarah Dusz COMPENSATION SUPERVISOR.METAL DRILL OPERATOR Work Phone: [facility] 06-07-2025 12:58-0400 Diastolic blood pressure 98 mm[Hg] Sarah Aguialrcisco COMPENSATION SUPERVISOR.METAL DRILL OPERATOR Work Phone: [facility] 06-07-2025 12:58-0400 Heart rate 88 /min Sarah Nhung COMPENSATION SUPERVISOR.METAL DRILL OPERATOR Work Phone: [facility] 06-07-2025 12:58-0400 Systolic blood pressure 159 mm[Hg] Sarahsteve Miramontes COMPENSATION SUPERVISOR.METAL DRILL OPERATOR Work Phone: [facility] 05-08-2025 09:06-0400 Diastolic blood pressure 94 mm[Hg] Nagi Red MD Work Phone: [facility] 05-08-2025 09:06-0400 Systolic blood pressure 118 mm[Hg] Nagi Red MD Work Phone: [facility] 05-08-2025 08:39-0400 Body mass index (BMI) [Ratio] 32.45 kg/m2 Nagi Red MD Work Phone: [facility] 05-08-2025 08:39-0400 Body temperature 98.01 [degF] Nagi Red MD Work Phone: [facility] 05-08-2025 08:39-0400 Body weight 88.45 kg Nagi Red MD Work Phone: [facility] 05-08-2025 08:39-0400 Heart rate 70 /min Nagi Red MD Work Phone: [facility] 05-08-2025 08:39-0400 Respiratory rate 16 /min Nagi Red MD Work Phone: [facility] 03-02-2025 08:41-0400 Body mass index (BMI) [Ratio] 31.88 kg/m2 Carlie Brownlee COMPENSATION SUPERVISOR.METAL DRILL OPERATOR Work Phone: [facility] 03-02-2025 08:41-0400 Body weight 86.9 kg Carlie Brownlee COMPENSATION SUPERVISOR.METAL DRILL OPERATOR Work Phone: [facility] 03-02-2025 08:41-0400 Heart rate 87 /min Carlie Brownlee COMPENSATION SUPERVISOR.METAL DRILL OPERATOR Work Phone: [facility] 03-02-2025 08:41-0400 SaO2% (BldA) [Mass fraction] 97 % Carlie Brownlee COMPENSATION SUPERVISOR.METAL DRILL OPERATOR Work Phone: [facility] 01-05-2025 08:19-0500 Body mass index (BMI) [Ratio] 32.21 kg/m2 Tomas Moomaw COMPENSATION SUPERVISOR.METAL DRILL OPERATOR Work Phone: [facility] 01-05-2025 08:19-0500 Body temperature 98.01 [degF] Tomas Moomaw COMPENSATION SUPERVISOR.METAL DRILL OPERATOR Work Phone: [facility] 01-05-2025 08:19-0500 Body weight 87.8 kg Tomas Moomaw COMPENSATION SUPERVISOR.METAL DRILL OPERATOR Work Phone: [facility] 01-05-2025 08:19-0500 Diastolic blood pressure 79 mm[Hg] Tomas Moomaw COMPENSATION SUPERVISOR.METAL DRILL OPERATOR Work Phone: [facility] 01-05-2025 08:19-0500 Heart rate 84 /min Tomas Moomaw COMPENSATION SUPERVISOR.METAL DRILL OPERATOR Work Phone: [facility] 01-05-2025 08:19-0500 Respiratory rate 18 /min Tomas Moomaw COMPENSATION SUPERVISOR.METAL DRILL OPERATOR Work Phone: [facility] 01-05-2025 08:19-0500 SaO2% (BldA) [Mass fraction] 99 % Tomas Moomaw COMPENSATION SUPERVISOR.METAL DRILL OPERATOR Work Phone: [facility] 01-05-2025 08:19-0500 Systolic blood pressure 115 mm[Hg] Tomas Moomaw COMPENSATION SUPERVISOR.METAL DRILL OPERATOR Work Phone: [facility] 12-15-2024 13:44-0500 Body mass index (BMI) [Ratio] 32.62 kg/m2 Renard Almodovar COMPENSATION SUPERVISOR.METAL DRILL OPERATOR Work Phone: [facility] 12-15-2024 13:44-0500 Body weight 88.91 kg Renard Almodovar COMPENSATION SUPERVISOR.METAL DRILL OPERATOR Work Phone: [facility] 12-15-2024 13:44-0500 Diastolic blood pressure 88 mm[Hg] Renard Almodovar COMPENSATION SUPERVISOR.METAL DRILL OPERATOR Work Phone: [facility] 12-15-2024 13:44-0500 Heart rate 75 /min Renard Almodovar COMPENSATION SUPERVISOR.METAL DRILL OPERATOR Work Phone: [facility] 12-15-2024 13:44-0500 Respiratory rate 14 /min Renard Almodovar COMPENSATION SUPERVISOR.METAL DRILL OPERATOR Work Phone: [facility] 12-15-2024 13:44-0500 Systolic blood pressure 154 mm[Hg] Renard Almodovar COMPENSATION SUPERVISOR.METAL DRILL OPERATOR Work Phone: [facility] 11-02-2024 09:15-0500 Body mass index (BMI) [Ratio] 30.87 kg/m2 Renard Almodovar COMPENSATION SUPERVISOR.METAL DRILL OPERATOR Work Phone: [facility] 11-02-2024 09:15-0500 Body weight 85.28 kg Renard Almodovar COMPENSATION SUPERVISOR.METAL DRILL OPERATOR Work Phone: [facility] 11-02-2024 09:15-0500 Diastolic blood pressure 85 mm[Hg] Renard Almodovar COMPENSATION SUPERVISOR.METAL DRILL OPERATOR Work Phone: [facility] 11-02-2024 09:15-0500 Heart rate 112 /min Renard Almodovar COMPENSATION SUPERVISOR.METAL DRILL OPERATOR Work Phone: [facility] 11-02-2024 09:15-0500 Systolic blood pressure 125 mm[Hg] Renard Almodovar COMPENSATION SUPERVISOR.METAL DRILL OPERATOR Work Phone: [facility] 10-26-2024 08:19-0500 Diastolic blood pressure 100 mm[Hg] Christine Dean PA-C Work Phone: [facility] 10-26-2024 08:19-0500 Heart rate 80 /min Christine Dean PA-C Work Phone: [facility] 10-26-2024 08:19-0500 Systolic blood pressure 140 mm[Hg] Christine Dean PA-C Work Phone: [facility] 10-26-2024 07:18-0500 Body mass index (BMI) [Ratio] 32.02 kg/m2 Christine Dean PA-C Work Phone: [facility] 10-26-2024 07:18-0500 Body temperature 97.39 [degF] Christine Dean PA-C Work Phone: [facility] 10-26-2024 07:18-0500 Body weight 88.45 kg Christine Dean PA-C Work Phone: [facility] 10-26-2024 07:18-0500 Respiratory rate 18 /min Christine Dean PA-C Work Phone: [facility] 10-26-2024 07:18-0500 SaO2% (BldA) [Mass fraction] 99 % Christine Dean PA-C Work Phone: [facility] 10-18-2024 16:16-0500 Body mass index (BMI) [Ratio] 32.08 kg/m2 Bobby Praisler-Wood COMPENSATION SUPERVISOR.METAL DRILL OPERATOR Work Phone: [facility] 10-18-2024 16:16-0500 Body temperature 98.2 [degF] Bobby Praisler-Wood COMPENSATION SUPERVISOR.METAL DRILL OPERATOR Work Phone: [facility] 10-18-2024 16:16-0500 Body weight 88.6 kg Bobby Praisler-Wood COMPENSATION SUPERVISOR.METAL DRILL OPERATOR Work Phone: [facility] 10-18-2024 16:16-0500 Diastolic blood pressure 76 mm[Hg] Bobby Praisler-Wood COMPENSATION SUPERVISOR.METAL DRILL OPERATOR Work Phone: [facility] 10-18-2024 16:16-0500 Heart rate 77 /min Bobby Praisler-Wood COMPENSATION SUPERVISOR.METAL DRILL OPERATOR Work Phone: [facility] 10-18-2024 16:16-0500 Respiratory rate 18 /min Bobby Praisler-Wood COMPENSATION SUPERVISOR.METAL DRILL OPERATOR Work Phone: [facility] 10-18-2024 16:16-0500 SaO2% (BldA) [Mass fraction] 98 % Bobby Romero-Wood COMPENSATION SUPERVISOR.METAL DRILL OPERATOR Work Phone: [facility] 10-18-2024 16:16-0500 Systolic blood pressure 118 mm[Hg] Bobby Mauroanantler-Wood COMPENSATION SUPERVISOR.METAL DRILL OPERATOR Work Phone: [facility] 09-29-2024 15:40-0500 Body mass index (BMI) [Ratio] 31.13 kg/m2 Karen Jones COMPENSATION SUPERVISOR.METAL DRILL OPERATOR Work Phone: [facility] 09-29-2024 15:40-0500 Body temperature 98.01 [degF] Karen Jones COMPENSATION SUPERVISOR.METAL DRILL OPERATOR Work Phone: [facility] 09-29-2024 15:40-0500 Body weight 86 kg Karen Jones COMPENSATION SUPERVISOR.METAL DRILL OPERATOR Work Phone: [facility] 09-29-2024 15:40-0500 Diastolic blood pressure 80 mm[Hg] Karen Jones COMPENSATION SUPERVISOR.METAL DRILL OPERATOR Work Phone: [facility] 09-29-2024 15:40-0500 Heart rate 60 /min Karen Jones COMPENSATION SUPERVISOR.METAL DRILL OPERATOR Work Phone: [facility] 09-29-2024 15:40-0500 Respiratory rate 20 /min Karen Jones COMPENSATION SUPERVISOR.METAL DRILL OPERATOR Work Phone: [facility] 09-29-2024 15:40-0500 SaO2% (BldA) [Mass fraction] 99 % Karen Jones COMPENSATION SUPERVISOR.METAL DRILL OPERATOR Work Phone: [facility] 09-29-2024 15:40-0500 Systolic blood pressure 131 mm[Hg] Karen Jones COMPENSATION SUPERVISOR.METAL DRILL OPERATOR Work Phone: [facility] 09-21-2024 10:40-0400 Body mass index (BMI) [Ratio] 31.36 kg/m2 Renard Almodovar COMPENSATION SUPERVISOR.METAL DRILL OPERATOR Work Phone: [facility] 09-21-2024 10:40-0400 Body weight 86.64 kg Renard Almodovar COMPENSATION SUPERVISOR.METAL DRILL OPERATOR Work Phone: [facility] 09-21-2024 10:40-0400 Diastolic blood pressure 81 mm[Hg] Renard Almodovar COMPENSATION SUPERVISOR.METAL DRILL OPERATOR Work Phone: [facility] 09-21-2024 10:40-0400 Heart rate 78 /min Renard Almodovar COMPENSATION SUPERVISOR.METAL DRILL OPERATOR Work Phone: [facility] 09-21-2024 10:40-0400 Respiratory rate 14 /min Renard Almodovar COMPENSATION SUPERVISOR.METAL DRILL OPERATOR Work Phone: [facility] 09-21-2024 10:40-0400 Systolic blood pressure 123 mm[Hg] Renard Almodovar COMPENSATION SUPERVISOR.METAL DRILL OPERATOR Work Phone: [facility] 09-15-2024 07:21-0400 Body mass index (BMI) [Ratio] 31.5 kg/m2 Tori Athy PA-C Work Phone: [facility] 09-15-2024 07:21-0400 Body temperature 97 [degF] Tori Athy PA-C Work Phone: [facility] 09-15-2024 07:21-0400 Body weight 87 kg Tori Athy PA-C Work Phone: [facility] 09-15-2024 07:21-0400 Diastolic blood pressure 91 mm[Hg] Tori Athy PA-C Work Phone: [facility] 09-15-2024 07:21-0400 Heart rate 81 /min Tori Athy PA-C Work Phone: [facility] 09-15-2024 07:21-0400 Respiratory rate 18 /min Tori Athy PA-C Work Phone: [facility] 09-15-2024 07:21-0400 SaO2% (BldA) [Mass fraction] 99 % Troi Athy PA-C Work Phone: [facility] 09-15-2024 07:21-0400 Systolic blood pressure 137 mm[Hg] Tori Athy PA-C Work Phone: [facility] 06-19-2024 13:11-0400 Body mass index (BMI) [Ratio] 30.22 kg/m2 Nagi Red MD Work Phone: [facility] 06-19-2024 13:11-0400 Body weight 83.46 kg Nagi Red MD Work Phone: [facility] 06-19-2024 13:11-0400 Diastolic blood pressure 90 mm[Hg] Nagi Red MD Work Phone: [facility] 06-19-2024 13:11-0400 Heart rate 64 /min Nagi Red MD Work Phone: [facility] 06-19-2024 13:11-0400 Systolic blood pressure 138 mm[Hg] Nagi eRd MD Work Phone: [facility] 05-12-2024 13:45-0400 Body mass index (BMI) [Ratio] 30.71 kg/m2 Sakshi Podlogar COMPENSATION SUPERVISOR.METAL DRILL OPERATOR Work Phone: [facility] 05-12-2024 13:45-0400 Body weight 84.82 kg Sakshi Podlogar COMPENSATION SUPERVISOR.METAL DRILL OPERATOR Work Phone: [facility] 05-12-2024 13:45-0400 Diastolic blood pressure 70 mm[Hg] Sakshi Podlogar COMPENSATION SUPERVISOR.METAL DRILL OPERATOR Work Phone: [facility] 05-12-2024 13:45-0400 Heart rate 84 /min Sakshi Podlogar COMPENSATION SUPERVISOR.METAL DRILL OPERATOR Work Phone: [facility] 05-12-2024 13:45-0400 Respiratory rate 16 /min Sakshi Podlogar COMPENSATION SUPERVISOR.METAL DRILL OPERATOR Work Phone: [facility] 05-12-2024 13:45-0400 SaO2% (BldA) [Mass fraction] 98 % Sakshi Podlogar COMPENSATION SUPERVISOR.METAL DRILL OPERATOR Work Phone: [facility] 05-12-2024 13:45-0400 Systolic blood pressure 124 mm[Hg] Sakshi Podlogar COMPENSATION SUPERVISOR.METAL DRILL OPERATOR Work Phone: [facility] 05-01-2024 11:53-0400 Body height 165.1 cm Caitlyn Rivera MD Work Phone: [facility] 05-01-2024 11:53-0400 Body mass index (BMI) [Ratio] 31.6 kg/m2 Caitlyn Rivera MD Work Phone: [facility] 05-01-2024 11:53-0400 Body temperature 97.5 [degF] Caitlyn Rivera MD Work Phone: [facility] 05-01-2024 11:53-0400 Body weight 86.14 kg Caitlyn Rivera MD Work Phone: [facility] 05-01-2024 11:53-0400 Diastolic blood pressure 79 mm[Hg] Caitlyn Rivera MD Work Phone: [facility] 05-01-2024 11:53-0400 Heart rate 76 /min Caitlyn Rivera MD Work Phone: [facility] 05-01-2024 11:53-0400 Respiratory rate 16 /min Caitlyn Rivera MD Work Phone: [facility] 05-01-2024 11:53-0400 SaO2% (BldA) [Mass fraction] 99 % Caitlyn Rivera MD Work Phone: [facility] 05-01-2024 11:53-0400 Systolic blood pressure 136 mm[Hg] Caitlyn Rivera MD Work Phone: [facility] 04-26-2024 11:22-0400 Body height 166.2 cm Pulm Wstr Work Phone: [facility] 04-26-2024 11:22-0400 Body mass index (BMI) [Ratio] 30.38 kg/m2 Pulm Wstr Work Phone: [facility] 04-26-2024 [id number] Body weight 83.92 kg Pulm Wstr Work Phone: [facility] 04-26-2024 11:22-0400 Heart rate 91 /min Pulm Wstr Work Phone: [facility] 04-26-2024 11:22-0400 Respiratory rate 14 /min Pulm Wstr Work Phone: [facility] 04-26-2024 11:22-0400 SaO2% (BldA) [Mass fraction] 96 % Pulm Wstr Work Phone: [facility] 04-25-2024 11:11-0400 Body mass index (BMI) [Ratio] 30.62 kg/m2 Nagi Red MD Work Phone: [facility] 04-25-2024 11:11-0400 Body weight 83.46 kg Nagi Red MD Work Phone: [facility] 04-25-2024 11:11-0400 Diastolic blood pressure 96 mm[Hg] Nagi Red MD Work Phone: [facility] 04-25-2024 11:11-0400 Heart rate 84 /min Nagi Red MD Work Phone: [facility] 04-25-2024 11:11-0400 Respiratory rate 16 /min Nagi Red MD Work Phone: [facility] 04-25-2024 11:11-0400 Systolic blood pressure 138 mm[Hg] Nagi Red MD Work Phone: [facility] 03-25-2024 08:49-0400 Body mass index (BMI) [Ratio] 30.79 kg/m2 Nagi Red MD Work Phone: [facility] 03-25-2024 08:49-0400 Body weight 83.92 kg Nagi Red MD Work Phone: [facility] 03-25-2024 08:49-0400 Diastolic blood pressure 88 mm[Hg] Nagi Red MD Work Phone: [facility] 03-25-2024 08:49-0400 Heart rate 115 /min Nagi Red MD Work Phone: [facility] 03-25-2024 08:49-0400 Respiratory rate 12 /min Nagi Red MD Work Phone: [facility] 03-25-2024 08:49-0400 SaO2% (BldA) [Mass fraction] 98 % Nagi Red MD Work Phone: [facility] 03-25-2024 08:49-0400 Systolic blood pressure 132 mm[Hg] Nagi Red MD Work Phone: [facility] 01-11-2024 08:53-0500 Heart rate 88 /min Galilea Bogner PA-C Work Phone: [facility] 01-11-2024 08:42-0500 Body temperature 98.1 [degF] Galilea Bogner PA-C Work Phone: [facility] 01-11-2024 08:42-0500 Body weight 86.18 kg Galilea Bogner PA-C Work Phone: [facility] 01-11-2024 08:42-0500 Diastolic blood pressure 82 mm[Hg] Galilea Bogner PA-C Work Phone: [facility] 01-11-2024 08:42-0500 Respiratory rate 16 /min Galilea Bogner PA-C Work Phone: [facility] 01-11-2024 08:42-0500 SaO2% (BldA) [Mass fraction] 98 % Galilea Bogner PA-C Work Phone: [facility] 01-11-2024 08:42-0500 Systolic blood pressure 124 mm[Hg] Galilea Bogner PA-C Work Phone: [facility] 01-07-2024 11:10-0500 Body temperature 98.2 [degF] Octavio Alcantara PA Work Phone: [facility] 01-07-2024 11:10-0500 Body weight 87.45 kg Krislyn Aberegg PA Work Phone: [facility] 01-07-2024 11:10-0500 Diastolic blood pressure 92 mm[Hg] Krislyn Aberegg PA Work Phone: [facility] 01-07-2024 11:10-0500 Heart rate 80 /min Krislyn Aberegg PA Work Phone: [facility] 01-07-2024 11:10-0500 Respiratory rate 18 /min Krislyn Aberegg PA Work Phone: [facility] 01-07-2024 11:10-0500 SaO2% (BldA) [Mass fraction] 98 % Krislyn Aberegg PA Work Phone: [facility] 01-07-2024 11:10-0500 Systolic blood pressure 127 mm[Hg] Krislyn Aberegg PA Work Phone: [facility] 10-04-2023 08:56-0500 Body temperature 98.1 [degF] Bobby Praisler-Wood COMPENSATION SUPERVISOR.METAL DRILL OPERATOR Work Phone: [facility] 10-04-2023 08:56-0500 Body weight 88 kg Bobby Praisler-Wood COMPENSATION SUPERVISOR.METAL DRILL OPERATOR Work Phone: [facility] 10-04-2023 08:56-0500 Diastolic blood pressure 64 mm[Hg] Bobby Praisler-Wood COMPENSATION SUPERVISOR.METAL DRILL OPERATOR Work Phone: [facility] 10-04-2023 08:56-0500 Heart rate 86 /min Bobby Praisler-Wood COMPENSATION SUPERVISOR.METAL DRILL OPERATOR Work Phone: [facility] 10-04-2023 08:56-0500 Respiratory rate 20 /min Bobby Praisler-Wood COMPENSATION SUPERVISOR.METAL DRILL OPERATOR Work Phone: [facility] 10-04-2023 08:56-0500 SaO2% (BldA) [Mass fraction] 98 % Bobby Romero-Sagar COMPENSATION SUPERVISOR.METAL DRILL OPERATOR Work Phone: [facility] 10-04-2023 08:56-0500 Systolic blood pressure 102 mm[Hg] Bobby Echevarrialer-Wood COMPENSATION SUPERVISOR.METAL DRILL OPERATOR Work Phone: [facility] 06-08-2023 10:25-0400 Body weight 91.35 kg Carlie Brownlee COMPENSATION SUPERVISOR.METAL DRILL OPERATOR Work Phone: [facility] 06-08-2023 10:25-0400 Heart rate 113 /min Carlie Brownlee COMPENSATION SUPERVISOR.METAL DRILL OPERATOR Work Phone: [facility] 06-08-2023 10:25-0400 SaO2% (BldA) [Mass fraction] 98 % Carlie Brownlee COMPENSATION SUPERVISOR.METAL DRILL OPERATOR Work Phone: [facility] 04-27-2023 10:05-0400 Body weight 95.71 kg Renard Almodovar COMPENSATION SUPERVISOR.METAL DRILL OPERATOR Work Phone: [facility] 04-27-2023 10:05-0400 Diastolic blood pressure 86 mm[Hg] Renard Almodovar COMPENSATION SUPERVISOR.METAL DRILL OPERATOR Work Phone: [facility] 04-27-2023 10:05-0400 Heart rate 100 /min Renard Almodovar COMPENSATION SUPERVISOR.METAL DRILL OPERATOR Work Phone: [facility] 04-27-2023 10:05-0400 Respiratory rate 16 /min Renard Almodovar COMPENSATION SUPERVISOR.METAL DRILL OPERATOR Work Phone: [facility] 04-27-2023 10:05-0400 Systolic blood pressure 122 mm[Hg] Renard Almodovar COMPENSATION SUPERVISOR.METAL DRILL OPERATOR Work Phone: [facility] 03-03-2023 11:04-0400 Diastolic blood pressure 90 mm[Hg] Nagi Red MD Work Phone: [facility] 03-03-2023 11:04-0400 Systolic blood pressure 116 mm[Hg] Nagi Red MD Work Phone: [facility] 03-03-2023 10:20-0400 Body weight 89.36 kg Nagi Red MD Work Phone: [facility] 03-03-2023 10:20-0400 Heart rate 86 /min Nagi Red MD Work Phone: [facility] 02-12-2023 14:13-0400 Diastolic blood pressure 98 mm[Hg] Juan Daniel Contreras MD Work Phone: [facility] 02-12-2023 14:13-0400 Heart rate 95 /min Juan Daniel Contreras MD Work Phone: [facility] 02-12-2023 14:13-0400 Respiratory rate 16 /min Juan Daniel Contreras MD Work Phone: [facility] 02-12-2023 14:13-0400 SaO2% (BldA) [Mass fraction] 98 % Juan Daniel Contreras MD Work Phone: [facility] 02-12-2023 14:13-0400 Systolic blood pressure 144 mm[Hg] Juan Daniel Contreras MD Work Phone: [facility] 02-12-2023 13:56-0400 Body temperature 97 [degF] Juan Daniel Contreras MD Work Phone: [facility] 02-12-2023 12:59-0400 Body height 165.1 cm Juan Daniel Contreras MD Work Phone: [facility] 02-12-2023 12:59-0400 Body weight 87.54 kg Juan Daniel Contreras MD Work Phone: [facility] 01-22-2023 09:18-0500 Body temperature 97.81 [degF] Nagi Ku APRN.METAL DRILL OPERATOR Work Phone: [facility] 01-22-2023 09:18-0500 Body weight 87.54 kg Nagi Ku APRN.METAL DRILL OPERATOR Work Phone: [facility] 01-22-2023 09:18-0500 Diastolic blood pressure 102 mm[Hg] Nagi Ku COMPENSATION SUPERVISOR.METAL DRILL OPERATOR Work Phone: [facility] 01-22-2023 09:18-0500 Heart rate 94 /min [facility] COMPENSATION SUPERVISOR.METAL DRILL OPERATOR Work Phone: [facility] 01-22-2023 09:18-0500 Respiratory rate 18 /min [facility] COMPENSATION SUPERVISOR.METAL DRILL OPERATOR Work Phone: [facility] 01-22-2023 09:18-0500 SaO2% (BldA) [Mass fraction] 99 % [facility] COMPENSATION SUPERVISOR.METAL DRILL OPERATOR Work Phone: [facility] 01-22-2023 09:18-0500 Systolic blood pressure 156 mm[Hg] [facility] COMPENSATION SUPERVISOR.METAL DRILL OPERATOR Work Phone: [facility] 09-16-2022 10:48-0400 Body height 165.1 cm Caitlyn Rivera MD Work Phone: [facility] 09-16-2022 10:48-0400 Body mass index (BMI) [Ratio] 30.92 kg/m2 Caitlyn Rivera MD Work Phone: [facility] 09-16-2022 10:48-0400 Body temperature 98.29 [degF] Caitlyn Rivera MD Work Phone: [facility] 09-16-2022 10:48-0400 Body weight 84.28 kg Caitlyn Rivera MD Work Phone: [facility] 09-16-2022 10:48-0400 Diastolic blood pressure 86 mm[Hg] Caitlyn Rivera MD Work Phone: [facility] 09-16-2022 10:48-0400 Heart rate 88 /min Caitlyn Rivera MD Work Phone: [facility] 09-16-2022 10:48-0400 Respiratory rate 16 /min Caitlyn Rivera MD Work Phone: [facility] 09-16-2022 10:48-0400 SaO2% (BldA) [Mass fraction] 99 % Caitlyn Rivera MD Work Phone: [facility] 09-16-2022 10:48-0400 Systolic blood pressure 121 mm[Hg] Caitlyn Rivera MD Work Phone: [facility] 07-06-2022 10:00-0400 Body temperature 98.71 [degF] Christine Dean PA-C Work Phone: [facility] 07-06-2022 10:00-0400 Body weight 84.37 kg Christine Dean PA-C Work Phone: [facility] [facility] 07-06-2022 10:00-0400 Diastolic blood pressure 112 mm[Hg] Christine Dean PA-C Work Phone: [facility] 07-06-2022 10:00-0400 Heart rate 80 /min Christine Dean PA-C Work Phone: [facility] 07-06-2022 10:00-0400 Respiratory rate 16 /min Christine Dean PA-C Work Phone: [facility] 07-06-2022 10:00-0400 Systolic blood pressure 142 mm[Hg] Christine Dean PA-C Work Phone: [facility] 06-16-2022 08:40-0400 Body mass index (BMI) [Ratio] 30.99 kg/m2 Osvaldo Tapia MD Work Phone: [facility] 06-16-2022 08:40-0400 Body temperature 97.39 [degF] Osvaldo Tapia MD Work Phone: [facility] 06-16-2022 08:40-0400 Body weight 84.46 kg Osvaldo Tapia MD Work Phone: [facility] 06-16-2022 08:40-0400 Diastolic blood pressure 102 mm[Hg] Osvaldo Tapia MD Work Phone: [facility] 06-16-2022 08:40-0400 Heart rate 81 /min Osvaldo Tapia MD Work Phone: [facility] 06-16-2022 08:40-0400 Respiratory rate 14 /min Osvaldo Tapia MD Work Phone: [facility] 06-16-2022 08:40-0400 SaO2% (BldA) [Mass fraction] 96 % Osvaldo Tapia MD Work Phone: [facility] 06-16-2022 08:40-0400 Systolic blood pressure 141 mm[Hg] Osvaldo Tapia MD Work Phone: [facility] 04-17-2022 10:31-0400 Body height 165.1 cm Carol Land APRN-METAL DRILL OPERATOR Work Phone: [facility] 04-17-2022 10:31-0400 Body mass index (BMI) [Ratio] 26.63 kg/m2 Carol Land COMPENSATION SUPERVISOR-METAL DRILL OPERATOR Work Phone: [facility] 04-17-2022 10:31-0400 Body weight 72.58 kg Carol Land APRN-METAL DRILL OPERATOR Work Phone: [facility] 03-26-2022 08:29-0400 Body height 164.5 cm Osvaldo Tapia MD Work Phone: [facility] 03-26-2022 08:29-0400 Body mass index (BMI) [Ratio] 29.42 kg/m2 Osvaldo Tapia MD Work Phone: [facility] 03-26-2022 08:29-0400 Body temperature 99.19 [degF] Osvaldo Tapia MD Work Phone: [facility] 03-26-2022 08:29-0400 Body weight 79.61 kg Osvaldo Tapia MD Work Phone: [facility] 03-26-2022 08:29-0400 Diastolic blood pressure 88 mm[Hg] Osvaldo Tapia MD Work Phone: [facility] 03-26-2022 08:29-0400 Heart rate 82 /min Osvaldo Tapia MD Work Phone: [facility] 03-26-2022 08:29-0400 Respiratory rate 16 /min Osvaldo Tapia MD Work Phone: [facility] 03-26-2022 08:29-0400 SaO2% (BldA) [Mass fraction] 97 % Osvaldo Tapia MD Work Phone: [facility] 03-26-2022 08:29-0400 Systolic blood pressure 131 mm[Hg] Osvaldo Tapia MD Work Phone: [facility] 03-18-2022 11:40-0400 Body height 165.1 cm Caitlyn Rivera MD Work Phone: [facility] 03-18-2022 11:40-0400 Body mass index (BMI) [Ratio] 29.12 kg/m2 Caitlyn Rivera MD Work Phone: [facility] 03-18-2022 11:40-0400 Body temperature 98.1 [degF] Caitlyn Rivera MD Work Phone: [facility] 03-18-2022 11:40-0400 Body weight 79.38 kg Caitlyn Rivera MD Work Phone: [facility] 03-18-2022 11:40-0400 Diastolic blood pressure 78 mm[Hg] Caitlyn Rivera MD Work Phone: [facility] 03-18-2022 11:40-0400 Heart rate 92 /min Caitlyn Rivera MD Work Phone: [facility] 03-18-2022 11:40-0400 Respiratory rate 16 /min Caitlyn Rivera MD Work Phone: [facility] 03-18-2022 11:40-0400 SaO2% (BldA) [Mass fraction] 99 % Caitlyn Rivera MD Work Phone: [facility] 03-18-2022 11:40-0400 Systolic blood pressure 157 mm[Hg] Caitlyn Rivera MD Work Phone: [facility] Encounters Encounter Date Encounter Type Care Provider Facility Start: 09-27-2025 End: 09-27-2025 ambulatory NAGI RED Facility:[facility] Start: 09-26-2025 End: 09-26-2025 ambulatory GRETA TEMPLETON Facility:[id number] Start: 09-11-2025 End: 09-11-2025 ambulatory GRETA TEMPLETON Facility:[id number] Start: 08-16-2025 End: 08-16-2025 ambulatory JUAN DANIEL CONTRERAS Facility:[facility] Start: 08-13-2025 End: 08-13-2025 ambulatory NAGI RED Facility:[facility] Start: 08-08-2025 ambulatory Thaddeus Moya Facility [facility] Start: 08-06-2025 ambulatory NAGI RED Facili ty:[facility] Start: 08-06-2025 End: 08-06-2025 Subsequent hospital visit by physician [facility] Work Phone: Radiology Comment on above: Bilateral nephrolith iasis [N20.0] Start: 08-01-2025 End: 08-01-2025 ambulatory Carlie Brownlee APRN.CNP Work Phone: Pain Management Comment on above: August 16 Start: 07-18-2025 End: 07-18-2025 Patient encounter procedure Nagi Red MD Work Phone: [facility] Medicine [place] Comment on above: Hypertension, essent ial (Primary Dx); Elevated hemoglobin A1c; Bipolar 1 disorder (HCC); Primary thyroid papillary carcinoma (HCC); Congenital heart defect (HCC); Exercise-induced asthma (HCC) Start: 07-18-2025 End: 07-18-2025 ambulatory NAGI RED Facility:[facility] Start: 07-17-2025 End: 07-17-2025 Admission to same day surgery center Carlie Brownlee [facility] Work Phone: Pain Management Comment on above: Surgery Start: 07-17-2025 End: 07-17-2025 Telemedicine consultation with patient Carlie Brownlee KIMBERLEY.METAL DRILL OPERATOR Work Phone: Pain Management Start: 07-17-2025 End: 07-17-2025 ambulatory Carlie Lawrence Aamir CHU.METAL DRILL OPERATOR Work Phone: Pain Management Comment on above: SI (sacroiliac) join t dysfunction (Primary Dx); Radiculopathy, lumbar region; Degeneration of intervertebral disc of lumbar region with discogenic back pain; Degeneration of intervertebral disc of lumbar region with discogenic back pain and lower extremity pain SI (sacroiliac) join t dysfunction (Primary Dx) Start: 07-12-2025 End: 07-12-2025 ambulatory Nagi Red MD Work Phone: [facility] Medicine [place] Comment on above: Blood sugar levels Start: 07-11-2025 End: 07-11-2025 Telephone encounter [facility] Comment on above: Appointment Start: 07-01-2025 End: 07-01-2025 Emergency department patient visit Nagi Red Facility:[facility] Start: 06-29-2025 End: 06-29-2025 ambulatory GRETA BLANCASKALYAN Facility:[id number] Start: 06-28-2025 End: 06-28-2025 ambulatory NAGI RED Facility:[facility] Start: 06-27-2025 End: 06-27-2025 Follow-up encounter Caitlyn [...] Telephone encounter Greta Templeton DO Work Phone: [facility] Start: 06-19-2025 End: 06-19-2025 ambulatory GRETA TEMPLETON Facility:[id number] Start: 06-16-2025 End: 06-16-2025 Emergency department patient visit JEN ROBERTSON Facility:[id number] Start: 06-15-2025 End: 06-15-2025 Subsequent hospital visit by physician Elaine Bowden [address] SCAN Comment on above: Bilateral nephrolith iasis [N20.0] Start: 06-15-2025 End: 06-15-2025 Office outpatient visit 25 minutes Greta Templeton DO Work Phone: [facility] Comment on above: Bilateral nephrolith iasis (Primary Dx); Right flank pain; History of ureteroscopy; Abnormal finding on urinalysis Start: 06-15-2025 End: 06-15-2025 ambulatory GRETA TEMPLETON Facility:[id number] Start: 06-12-2025 End: 06-13-2025 Admission to same day surgery center Sarah Miramontes APRN.METAL DRILL OPERATOR Work Phone: Urology Comment on above: Surgery possibility Start: 06-12-2025 End: 06-13-2025 ambulatory Sarah Miramontes APRN.METAL DRILL OPERATOR Work Phone: Urology Start: 06-08-2025 End: 06-12-2025 ambulatory Carlie Brownlee APRN.METAL DRILL OPERATOR Work Phone: Pain Management Start: 06-08-2025 End: 06-12-2025 Patient encounter procedure Carlie Brownlee APRN.METAL DRILL OPERATOR Work Phone: Pain Management Comment on above: Appointment Start: 06-07-2025 End: 06-07-2025 Telephone encounter Sarah Nhung COMPENSATION SUPERVISOR.METAL DRILL OPERATOR Work Phone: Urology Comment on above: Medication Problem Start: 06-07-2025 End: 06-07-2025 Office consultation new/estab patient 60 min Sarah Nhung COMPENSATION SUPERVISOR.METAL DRILL OPERATOR Work Phone: Urology Comment on above: Kidney stones (Prima ry Dx); Right flank pain; Hematuria, unspecified type Start: 06-07-2025 End: 06-07-2025 ambulatory SARAH [facility]AMONTES [facility] Start: 05-23-2025 End: 05-24-2025 ambulatory Nagi Red MD Work Phone: Family Medicine [place] Comment on above: Kidney stones Start: 05-21-2025 ambulatory NAGI RED Facili ty:[facility] Start: 05-21-2025 End: 05-21-2025 Subsequent hospital visit by physician [facility] Work Phone: Radiology Comment on above: Nausea and vomiting, unspecified vomiting type [R11.2] Start: 05-21-2025 End: 05-21-2025 [facility] Start: 05-17-2025 End: 05-18-2025 Telephone encounter Nagi Red MD Work Phone: [facility] [place] Comment on above: Patient Update Start: 05-16-2025 End: 05-17-2025 ambulatory [facility] Provider [facility] [place] Comment on above: Appt Start: 05-16-2025 End: 05-17-2025 E-mail encounter from caregiver [facility] Provider [facility] [place] Start: 05-15-2025 End: 05-15-2025 Chart abstracting Nagi Red MD Work Phone: [facility] [place] Comment on above: Received Outside Med ical Records (Imaging) Start: 05-09-2025 End: 05-17-2025 Telephone encounter Jace Wallis MA [facility] [place] Comment on above: Results Start: 05-08-2025 End: 05-08-2025 Patient encounter procedure Nagi Red MD Work Phone: [facility] [place] Comment on above: SOB (shortness of br eath) (Primary Dx); Dark urine; Nausea; Nausea and vomiting, unspecified vomiting type; RUQ pain; Right flank pain; Gastroparesis; Elevated blood pressure reading without diagnosis of hypertension; Proteinuria, unspecified type Start: 05-08-2025 End: 05-08-2025 ambulatory NAGI RED Facility:[facility] Start: 05-07-2025 End: 05-07-2025 Patient encounter procedure Nagi Red MD Work Phone: [facility] [place] Comment on above: Appointment today Start: 05-07-2025 End: 05-07-2025 Telemedicine consultation with patient Nagi Red MD Work Phone: [facility] [place] Start: 05-07-2025 End: 05-07-2025 ambulatory Nagi Red MD Work Phone: [facility] [place] Comment on above: Patient left before evaluation by physician (Primary Dx) Start: 05-04-2025 End: 05-04-2025 ambulatory Arianne Ramirez RN NURSE BLUEPRINTER Comment on above: Patient Update Start: 05-02-2025 ambulatory NAGI RED [facility] ty:[facility] Start: 05-02-2025 End: 05-02-2025 Subsequent hospital visit by physician [facility] Work Phone: Radiology Comment on above: Bilateral pleural ef fusion [J90] Start: 05-02-2025 End: 05-02-2025 ambulatory NAGI RED Facility:[facility] Start: 05-02-2025 End: 05-07-2025 Follow-up encounter Nagi Red MD Work Phone: [facility] [place] Comment on above: Results Start: 04-26-2025 End: 05-02-2025 Telephone encounter Nagi Red MD Work Phone: [facility] [place] Comment on above: Patient Update Start: 04-24-2025 End: 04-24-2025 ambulatory Nagi Red Facility:[facility] Start: 04-18-2025 End: 04-18-2025 Chart abstracting Nagi Red MD Work Phone: [facility] Comment on above: ER Discharge Summary Start: 04-17-2025 End: 04-17-2025 Emergency department patient visit Nagi Daniella Facility:[facility] Start: 04-17-2025 End: 04-17-2025 ambulatory Nagi Red MD Work Phone: [facility] Start: 04-17-2025 End: 04-17-2025 Patient encounter procedure Nagi Red MD Work Phone: [facility] Comment on above: Today's appointment Start: 04-10-2025 End: 04-10-2025 ambulatory Nagi Red Facility:[facility] Start: 04-09-2025 End: 04-09-2025 ambulatory Nagi Red Facility:[facility] Start: 04-05-2025 ambulatory Nagi Red Facility :[facility] Start: 04-03-2025 End: 04-03-2025 ambulatory NAGI RED Facility:[facility] Start: 03-22-2025 End: 03-22-2025 ambulatory Nagi Red Facility:[facility] Start: 03-20-2025 End: 03-20-2025 Chart abstracting Nagi Red MD Work Phone: [facility] Comment on above: ER Discharge Summary Start: 03-19-2025 End: 03-20-2025 ambulatory [facility] Start: 03-19-2025 End: 03-20-2025 Subsequent hospital visit by physician Nagi Red MD Work Phone: [facility] Comment on above: Hospital visit Start: 03-19-2025 End: 03-19-2025 Telephone encounter Carlie Brownlee APRN.CNP Work Phone: Pain Management Comment on above: Medication Question Start: 03-19-2025 End: 03-19-2025 Emergency department patient visit Nagi Red Facility:[facility] Start: 03-18-2025 End: 03-18-2025 Emergency department patient visit NAGI RED [facility] Start: 03-02-2025 End: 03-02-2025 Orders Only [...] Chart abstracting Jace Wallis MA Family Medicine [employer] [address] Comment on above: Procedure ([facility] - gas tric emptying study /) Start: 02-12-2025 End: 02-12-2025 ambulatory [facility] Start: 02-08-2025 End: 02-08-2025 Telephone encounter Juan Daniel Contreras MD Work Phone: Pain Management Comment on above: Insurance Authorizat ion (Lumbar MRI Denial) Start: 02-07-2025 End: 02-07-2025 Chart abstracting Jace Wallis MA [facility] Medicine [employer] [address] Comment on above: Results (Outside lab s /) Start: 02-02-2025 End: 02-02-2025 ambulatory [facility] Start: 01-29-2025 End: 01-29-2025 Chart abstracting Nagi Red MD Work Phone: [facility] Comment on above: Outside [facility] Ordered Start: 01-26-2025 End: 01-26-2025 ambulatory [facility] Start: 01-19-2025 End: 01-19-2025 ambulatory Nagi Red Facility:[facility] Start: 01-05-2025 End: 01-05-2025 ambulatory NAGI RED Facility:[facility] Start: 01-05-2025 End: 01-05-2025 Patient encounter procedure Tomas Alexis APRN.METAL DRILL OPERATOR Work Phone: [facility] Comment on above: Bacterial sinusitis (Primary Dx) Start: 12-15-2024 End: 12-15-2024 Patient encounter procedure Renard Almodovar APRN.MARGARITA Work Phone: Family Medicine [place] Comment on above: Migraine without aur a and without status migrainosus, not intractable (Primary Dx); Mixed headache Start: 12-15-2024 End: 12-15-2024 ambulatory [facility] Facility:[facility] Start: 12-14-2024 End: 12-14-2024 Telemedicine consultation with patient Carlie Brownlee APRN.METAL DRILL OPERATOR Work Phone: Pain Management Start: 12-14-2024 End: 12-14-2024 ambulatory Carlie Brownlee APRN.METAL DRILL OPERATOR Work Phone: Pain Management Comment on above: SI (sacroiliac) join t dysfunction (Primary Dx); Radiculopathy, lumbar region; Degeneration of intervertebral disc of lumbar region with discogenic back pain Start: 12-06-2024 End: 12-06-2024 ambulatory Carlie Brownlee APRN.METAL DRILL OPERATOR Work Phone: Pain Management Comment on above: New back pain Start: 11-09-2024 End: 11-09-2024 ambulatory NAGI A [facility] Facility:[facility] Start: 11-07-2024 End: 11-07-2024 Admission to same day surgery center Carlie Brownlee APRN.METAL DRILL OPERATOR Work Phone: Pain Management Comment on above: Surgery Start: 11-07-2024 End: 11-07-2024 ambulatory Carlie Brownlee APRN.METAL DRILL OPERATOR Work Phone: Pain Management Start: 11-02-2024 End: 11-02-2024 ambulatory Renard Almodovar APRN.CNP Work Phone: [facility] [place] Comment on above: Work Start: 11-02-2024 End: 11-02-2024 Patient encounter procedure Renard Almodovar APRN.METAL DRILL OPERATOR Work Phone: [facility] [place] Comment on above: Migraine without aur a and without status migrainosus, not intractable (Primary Dx) Start: 10-27-2024 End: 10-27-2024 Telephone encounter Christine Dean PA-C Work Phone: [facility] [place] Comment on above: Results Start: 10-26-2024 End: 10-26-2024 ambulatory NAGI RED Facility:[facility] Start: 10-26-2024 End: 10-26-2024 Patient encounter procedure Christine Dean PA-C Work Phone: [facility] [place] Comment on above: Migraine without aur a and without status migrainosus, not intractable (Primary Dx); Mixed headache; Hypertension, essential; Daily headache Start: 10-24-2024 End: 10-24-2024 Chart abstracting Jace Wallis MA [facility] Kumar nogueira Comment on above: ER F/U ([facility] ) Start: 10-23-2024 End: 10-24-2024 Telephone encounter Nagi Red MD Work Phone: [facility] [place] Comment on above: FMLA Paperwork Start: 10-21-2024 End: 10-21-2024 Emergency department patient visit Nagi Red Facility[facility] Start: 10-21-2024 End: 10-21-2024 ambulatory Nagi Red Facility:[facility] Start: 10-18-2024 End: 10-18-2024 ambulatory NAGI RED Facility:[facility] Start: 10-18-2024 End: 10-18-2024 Patient encounter procedure Bobby Paiz APRN.METAL DRILL OPERATOR Work Phone: [facility] Comment on above: Headache, unspecifie d headache type (Primary Dx); Nausea Start: 10-17-2024 End: 10-17-2024 ambulatory Nagi Red MD Work Phone: [facility] [place] Comment on above: Migraine Start: 10-01-2024 End: 10-01-2024 Telephone encounter Nagi Ku APRN.METAL DRILL OPERATOR Work Phone: [facility] Comment on above: Results Start: 09-29-2024 End: 09-29-2024 ambulatory NAGI RED Facility:[facility] Start: 09-29-2024 End: 09-29-2024 Patient encounter procedure Karen Mesha COMPENSATION SUPERVISOR.METAL DRILL OPERATOR Work Phone: [place] [facility] Comment on above: Dysuria (Primary Dx) Start: 09-27-2024 End: 09-27-2024 Orders Only Juan Daniel Contreras MD Work Phone: Pain Management Comment on above: SI (sacroiliac) join t dysfunction (Primary Dx) Start: 09-26-2024 End: 09-26-2024 Telephone encounter Carlie Brownlee APRN.METAL DRILL OPERATOR Work Phone: Pain Management Comment on above: Orders Start: 09-21-2024 End: 09-21-2024 Patient encounter procedure Renard Almodovar COMPENSATION SUPERVISOR.METAL DRILL OPERATOR Work Phone: [facility] Comment on above: Leg cramps (Primary Dx); Encounter for physical examination related to employment Start: 09-18-2024 End: 09-18-2024 ambulatory Carlie Brownlee APRN.METAL DRILL OPERATOR Work Phone: Pain Management Comment on above: SI (sacroiliac) join t dysfunction (Primary Dx); Radiculopathy, lumbar region; Degeneration of intervertebral disc of lumbar region with discogenic back pain Start: 09-18-2024 End: 09-18-2024 Telemedicine consultation with patient Carlie Cardonakj CHU.METAL DRILL OPERATOR Work Phone: Pain Management Start: 09-15-2024 End: 09-15-2024 Patient encounter procedure Tori Michael PA-C Work Phone: [facility] Comment on above: Viral illness (Prima ry Dx) Start: 09-04-2024 End: 09-04-2024 Chart abstracting Nagi Red MD Work Phone: [facility] Comment on above: ER Discharge Summary Start: 09-01-2024 End: 09-01-2024 Emergency department patient visit Ludin Adams Facility[facility] Start: 08-25-2024 ambulatory Nagi Red Facility :[facility] Start: 08-22-2024 End: 08-22-2024 Chart abstracting Nagi Red MD Work Phone: [facility] Comment on above: Outside [facility] Ordered Start: 08-21-2024 ambulatory [facility] Facility[facility] Start: 06-30-2024 End: 06-30-2024 Nursing evaluation of patient and report Mi Nurse Work Phone: [facility] Comment on above: Dermatofibroma (Prim kathya Dx) Start: 06-20-2024 Telephone encounter Nagi Red MD Work Phone: [facility] Comment on above: Results Start: 06-19-2024 End: 06-19-2024 Patient encounter procedure Nagi Red MD Work Phone: [facility] Comment on above: Neoplasm of uncertai n behavior of skin of back (Primary Dx); Dermatofibroma Start: 06-15-2024 End: 06-15-2024 ambulatory Carlie Brownlee APRN.METAL DRILL OPERATOR Work Phone: Pain Management Comment on above: Spinal stenosis of l umbar region, unspecified whether neurogenic claudication present (Primary Dx); SI (sacroiliac) joint dysfunction; Radiculopathy, lumbar region Start: 06-15-2024 End: 06-15-2024 Telemedicine consultation with patient Carlie Jose Brownlee APRN.METAL DRILL OPERATOR Work Phone: Pain Management Start: 05-23-2024 Telephone encounter Nagi Red MD Work Phone: [facility] Comment on above: Future Appointment Start: 05-15-2024 ambulatory Carlie Brownlee APRN.METAL DRILL OPERATOR Work Phone: Pain Management Comment on above: Back imaging Start: 05-12-2024 End: 05-12-2024 Subsequent hospital visit by physician [facility] Comment on above: Pain in left lower l eg [M79.662] Start: 05-12-2024 ambulatory Lizzeth candelario RN NURSE BLUEPRINTER Comment on above: US results Leg ultrasound Start: 05-12-2024 End: 05-12-2024 Patient encounter procedure Sakshi Dannie COMPENSATION SUPERVISOR.METAL DRILL OPERATOR Work Phone: [facility] [place] Comment on above: Pain in left lower l eg (Primary Dx) Start: 05-02-2024 Telephone encounter Jace Wallis MA [facility] [place] Comment on above: Appointment Start: 05-01-2024 End: 05-01-2024 Office outpatient visit 25 minutes Caitlyn Rivera MD Work Phone: Division of Endocrinology Comment on above: Papillary thyroid ca rcinoma (Primary Dx); Postsurgical hypothyroidism Start: 04-29-2024 Telephone encounter Nagi Red MD Work Phone: [facility] [place] Comment on above: Results Start: 04-26-2024 End: 04-26-2024 ambulatory [facility] Work Phone: [facility] Comment on above: Spirometry Visit Start: 04-26-2024 End: 04-26-2024 Patient encounter procedure [facility] Work Phone: [facility] Start: 04-25-2024 Telephone encounter Nagi Red MD Work Phone: [facility] [place] Comment on above: Results Start: 04-25-2024 End: 04-25-2024 Patient encounter procedure Nagi Red MD Work Phone: [facility] [place] Comment on above: Hypertension, essent ial [...] encounter status Nagi Red MD Work Phone: [facility] Start: 04-19-2024 ambulatory Nagi zhang MD Work Phone: [facility] [place] Comment on above: Blood sugar Start: 04-04-2024 Orders Only Juan Daniel Contreras MD Work Phone: Pain Management Comment on above: SI (sacroiliac) join t dysfunction (Primary Dx) Start: 03-25-2024 End: 03-25-2024 Patient encounter procedure Nagi Red MD Work Phone: [facility] [place] Comment on above: Tinnitus of right ea r (Primary Dx); Right ear pain; Neoplasm of uncertain behavior of skin of back Start: 03-16-2024 End: 03-16-2024 Patient encounter procedure Carlie Brownlee APRN.METAL DRILL OPERATOR Work Phone: Pain Management Comment on above: SI (sacroiliac) join t dysfunction (Primary Dx); Lumbar degenerative disc disease; Spinal stenosis of lumbar region, unspecified whether neurogenic claudication present Start: 03-07-2024 Chart abstracting Nagi chacon MD Work Phone: [facility] [place] Comment on above: Ext / ABD US Start: 01-11-2024 End: 01-11-2024 Office outpatient visit 15 minutes Galilea Olvera PA-C Work Phone: [facility] Comment on above: Otalgia of both ears (Primary Dx); Flu Start: 01-07-2024 Telephone encounter Jim cerrato APRN.METAL DRILL OPERATOR Work Phone: [facility] Comment on above: Results Start: 01-07-2024 End: 01-07-2024 Patient encounter procedure Octavio WILCOX Work Phone: [facility] Comment on above: Sore throat (Primary Dx); URI, acute Start: 01-03-2024 Chart abstracting Nagi chacon MD Work Phone: [facility] [place] Comment on above: Outside imaging and ER Start: 11-04-2023 End: 11-04-2023 Patient encounter procedure Brian Griffin Work Phone: Podiatry Comment on above: Plantar wart of left foot (Primary Dx) Start: 10-04-2023 End: 10-04-2023 Patient encounter procedure Bobby Paiz APRN.METAL DRILL OPERATOR Work Phone: [facility] Comment on above: Sore throat (Primary Dx); Bronchitis; Lower resp. tract infection Start: 09-16-2023 Orders Only Juan Daniel Contreras MD Work Phone: Pain Management Comment on above: SI (sacroiliac) join t dysfunction (Primary Dx) Start: 09-13-2023 End: 09-13-2023 ambulatory Carlie Brownlee APRN.METAL DRILL OPERATOR Work Phone: Pain Management Comment on above: Spinal stenosis of l umbar region, unspecified whether neurogenic claudication present (Primary Dx); SI (sacroiliac) joint dysfunction; Lumbar degenerative disc disease Start: 09-13-2023 End: 09-13-2023 Telemedicine consultation with patient Carlie Brownlee APRN.METAL DRILL OPERATOR Work Phone: [facility] Start: 07-08-2023 Orders Only Juan Daniel Contreras MD Work Phone: Pain Management Comment on above: SI (sacroiliac) join t dysfunction (Primary Dx); Sacroiliitis, not elsewhere classified (HCC) Start: 06-08-2023 End: 06-08-2023 Patient encounter procedure Carlie Brownlee APRN.METAL DRILL OPERATOR Work Phone: Pain Management Comment on above: SI (sacroiliac) join t dysfunction; Lumbar degenerative disc disease Start: 04-28-2023 Telephone encounter Christine fernandez PA-C Work Phone: [facility] Comment on above: Results Start: 04-28-2023 End: 04-28-2023 Subsequent hospital visit by physician Elaine [facility] (I-Stat) Work Phone: Cat Scan Comment on above: Adverse effect of tr eatment, initial encounter [T88.9XXA] Start: 04-27-2023 End: 04-27-2023 Patient encounter procedure Renard Almodovar APRN.METAL DRILL OPERATOR Work Phone: [facility] Comment on above: Post-surgical hypoth yroidism (Primary Dx); Adverse effect of treatment, subsequent encounter; Adverse effect of treatment, initial encounter Start: 04-26-2023 Chart abstracting Nagi chacon MD Work Phone: [facility] [place] Start: 04-05-2023 Telephone encounter Renard mchugh APRN.METAL DRILL OPERATOR Work Phone: [facility] Comment on above: Results Start: 04-01-2023 Telephone encounter Juan Daniel quiñones MD Work Phone: Pain Management Comment on above: Results Start: 03-29-2023 Telephone encounter Nagi Red MD Work Phone: [facility] Comment on above: ER FU apt Start: 03-27-2023 End: 03-27-2023 Subsequent hospital visit by physician Scarlett [facility] [place] Work Phone: Radiology Comment on above: Lumbar degenerative disc disease [M51.36] Start: 03-03-2023 End: 03-03-2023 Patient encounter procedure Nagi Red MD Work Phone: [facility] Comment on above: Hypertension, essent ial [...] diabetes mellitus Start: 02-16-2023 ambulatory Carlie Brownlee APRN.METAL DRILL OPERATOR Work Phone: Pain Management Comment on above: Medication Start: 02-12-2023 End: 02-12-2023 Subsequent hospital visit by physician Juan Daniel Contreras MD Work Phone: [facility] Comment on above: SI (sacroiliac) join t dysfunction [M53.3] Start: 02-06-2023 Chart abstracting Nagi chacon MD Work Phone: [facility] Comment on above: Consult (GI ) Start: 01-28-2023 Orders Only Juan Daniel Contreras MD Work Phone: Pain Management Comment on above: Lumbar degenerative disc disease (Primary Dx); SI (sacroiliac) joint dysfunction; Sacroiliitis, not elsewhere classified (HCC) Start: 01-26-2023 Chart abstracting Nagi chacon MD Work Phone: [facility] Comment on above: Outside Delb-Zfs-ZPL Ordered Start: 01-22-2023 Chart abstracting Nagi chacon MD Work Phone: [facility] [place] Comment on above: ER F/U (WC) Start: 01-22-2023 End: 01-22-2023 Office outpatient visit 25 minutes Nagi Ku APRN.METAL DRILL OPERATOR Work Phone: [facility] Comment on above: Bacterial sinusitis (Primary Dx) Start: 01-06-2023 ambulatory [facility] Comment on above: RFA Start: 01-06-2023 E-mail encounter fro m caregiver [facility] Provider [facility] Start: 12-16-2022 ambulatory Nagi zhang MD Work Phone: [facility] [place] Comment on above: High blood sugar Start: 11-25-2022 End: 11-25-2022 ambulatory Carlie Brownlee APRN.METAL DRILL OPERATOR Work Phone: Pain Management Comment on above: SI (sacroiliac) join t dysfunction; Lumbar degenerative disc disease SI fusion Start: 11-25-2022 E-mail encounter fro m caregiver Carlie Brownlee APRN.METAL DRILL OPERATOR Work Phone: [facility] Start: 11-25-2022 End: 11-25-2022 Telemedicine consultation with patient Carlie Brownlee APRN.METAL DRILL OPERATOR Work Phone: [facility] Start: 10-30-2022 Encounter for preprocedural laboratory examination CLAIRE SEPULVEDA DO [facility] Start: 10-23-2022 End: 10-23-2022 ambulatory CLAIRE N COCO DO Facility:[facility] Start: 10-10-2022 ambulatory Christine SALEEMC Work Phone: [facility] Start: 10-10-2022 Patient encounter procedure Christine SALEEMC Work Phone: [facility] Comment on above: Stomach issues refer ral Start: 09-16-2022 End: 09-16-2022 Office outpatient visit 25 minutes Caitlyn Rivera MD Work Phone: Division of Endocrinology Comment on above: Papillary thyroid ca rcinoma (Primary Dx); Postsurgical hypothyroidism; Sialoadenitis of submandibular gland Start: 09-10-2022 End: 09-11-2022 ambulatory CLAIRE N COCO DO Facility:[facility] Start: 09-01-2022 Patient encounter status Mitchell WILCOX-C Work Phone: [facility] Work Phone: Start: 07-30-2022 ambulatory Carlie Brownlee APRN.CNP Work Phone: Pain Management Comment on above: Medication Start: 07-07-2022 Telephone encounter Christine fernandez PA-C Work Phone: [facility] [place] Comment on above: Results Start: 07-06-2022 End: 07-06-2022 Patient encounter procedure Christine Dean PA-C Work Phone: Family [facility] [place] Comment on above: Hypertension, essent ial (Primary Dx); Weight gain; Primary thyroid papillary carcinoma (HCC); Encounter for lipid screening for cardiovascular disease; Screening for diabetes mellitus Start: 07-01-2022 Orders Only Juan Daniel Contreras MD Work Phone: Pain Management Comment on above: SI (sacroiliac) join t dysfunction (Primary Dx); Sacroiliitis, not elsewhere classified (HCC) Start: 06-24-2022 ambulatory Nagi zhang MD Work Phone: [facility] Comment on above: Pcp Start: 06-16-2022 [...] Start: 05-01-2022 End: 05-01-2022 ambulatory NAGI RED Facility:[facility] Start: 04-17-2022 End: 04-17-2022 Subsequent hospital visit by physician Carol Land APRN-METAL DRILL OPERATOR Work Phone: [facility] [place] Comment on above: Arrived Start: 04-14-2022 Orders Only Juan Daniel Contreras MD Work Phone: Pain Management Comment on above: SI (sacroiliac) join t dysfunction (Primary Dx); Sacroiliitis, not elsewhere classified (HCC) Start: 04-09-2022 Telephone encounter Juan Daniel quiñones MD Work Phone: Pain Management Comment on above: Appointment (Resched ule Injection ) Start: 04-07-2022 End: 04-07-2022 ambulatory Carlie Brownlee APRN.METAL DRILL OPERATOR Work Phone: Pain Management Comment on above: SI (sacroiliac) join t dysfunction (Primary Dx); Lumbar degenerative disc disease Start: 04-07-2022 End: 04-07-2022 Telemedicine consultation with patient Carlie Brownlee APRN.METAL DRILL OPERATOR Work Phone: [facility] Start: 03-26-2022 End: 03-26-2022 Office outpatient new [...] procedure Morris Mireles Jr., MD Work Phone: [facility] Start: 03-05-2022 End: 03-05-2022 ambulatory Capsule Downey Work Phone: Gastroenterology [place] Comment on above: Bloody Stool Start: 03-05-2022 End: 03-05-2022 Patient encounter procedure Capsule Steph Downey Work Phone: [facility] Start: 12-22-2021 End: 12-23-2021 ambulatory DUC BAKER DO Facility:[facility] Start: 11-15-2021 End: 11-15-[address] SENA CARO MD Facility:[facility] Start: 07-17-2021 End: 07-17-2021 Subsequent hospital visit by physician Xr [facility] Work Phone: Radiology Comment on above: Left ankle injury, i nitial encounter [S99.912A] Start: 06-20-2021 End: 06-20-2021 Clinical Support Encounter Caitlyn Rivera MD Work Phone: [facility] Comment on above: Thyroid cancer (Prim kathya Dx) Start: 08-10-2014 End: 07-27-2019 Patient encounter status Carlie Brownlee APRN.CNP Work Phone: [facility] Procedures Date Procedure Procedure Detail Performing Clinician Start: 06-27-2025 US Unspecified body region Caitlyn Rivera MD Work Phone: Start: 06-27-2025 Us soft tissue head & neck real time imge docm Caitlyn Rivera MD Work Phone: Start: 06-15-2025 Ct abdomen & pelvis w/o contrast material Greta Templeton Work Phone: Start: 06-07-2025 BLADDER SCAN Sarah Dus z COMPENSATION SUPERVISOR.METAL DRILL OPERATOR Work Phone: Start: 06-07-2025 Urnls dip stick/tabl et reagent auto microscopy Sarah Dusz COMPENSATION SUPERVISOR.METAL DRILL OPERATOR Work Phone: Start: 06-07-2025 Urnls dip stick/tabl et rgnt auto w/o microscopy Sarah Dusz COMPENSATION SUPERVISOR.METAL DRILL OPERATOR Work Phone: Start: 05-08-2025 Urnls dip stick/tabl et rgnt auto w/o microscopy Nagi Red MD Work Phone: Start: 05-02-2025 Radiologic exam ches t 2 views Nagi Red MD Work Phone: Start: 03-18-2025 Urinalysis NAGI CHACON Comment on above: Result Comment: URIN ALYSIS Performed By: #### 2 [id number] ####[facility],[address] [place] [address] Start: 09-29-2024 Urnls dip stick/tabl et rgnt auto w/o microscopy Minor Jean MD Work Phone: Start: 06-19-2024 SURGICAL PATHOLOGY Melvin Red MD Work Phone: Start: 05-12-2024 Dup-scan xtr veins unilateral/limited study Sakshi Pandey COMPENSATION SUPERVISOR.METAL DRILL OPERATOR Work Phone: Start: 05-01-2024 US Unspecified [...] 04-28-2023 Ct angiography neck w/contrast/noncontrast Renard Almodovar COMPENSATION SUPERVISOR.METAL DRILL OPERATOR Work Phone: Start: 03-27-2023 Radex spine lumbosac ral minimum 4 views Carlie Brownlee COMPENSATION SUPERVISOR.METAL DRILL OPERATOR Work Phone: Start: 02-12-2023 Fluoroscopy up to 1 hour physician/qhp time Juan Daniel Contreras MD Work Phone: Start: 09-16-2022 US Unspecified body region Caitlyn Rivera MD Work Phone: Start: 09-16-2022 Us soft tissue head & neck real time imge clara Rivera MD Work Phone: Start: 07-06-2022 Adult [...] Treatment Date Care Activity Detail Author Start: 08-27-2026 Annual PCP Team Chronic Disease Visit Annual PCP Team Chronic Disease Visit [facility] Start: 06-28-2026 Annual PCP Team Chronic Disease Visit Annual PCP Team Chronic Disease Visit [facility] Start: 06-27-2026 Thyroid stimulating hormone measurement TSH [facility] Start: 06-26-2026 End: 06-26-2026 Patient encounter procedure Division of Endocrinology Start: 05-08-2026 Annual PCP Team Chronic Disease Visit Annual PCP Team Chronic Disease Visit [facility] Start: 05-07-2026 Annual PCP Team Chronic Disease Visit Annual PCP Team Chronic Disease Visit [facility] Start: 01-05-2026 BP Controlled (<130/80) BP Controlled (<130/80) [facility] Start: 12-15-2025 Annual PCP Team Chronic Disease Visit Annual PCP Team Chronic Disease Visit [facility] Start: 11-02-2025 Annual PCP Team Chronic Disease Visit Annual PCP Team Chronic Disease Visit [facility] Start: 10-26-2025 Annual PCP Team Chronic Disease Visit Annual PCP Team Chronic Disease Visit [facility] Start: 10-18-2025 BP Controlled (<130/80) BP Controlled (<130/80) [facility] Start: 09-21-2025 Annual PCP Team Chronic Disease Visit Annual PCP Team Chronic Disease Visit [facility] Start: 09-21-2025 BP Controlled (<130/80) BP Controlled (<130/80) [facility] Start: 09-21-2025 Covid-19 Vaccine ( season) Covid-19 Vaccine ( season) [facility] Comment on above: Postponed from 07/23/2024 (Declined at t his time) Start: 08-16-2025 End: 08-16-2025 Admission to same day surgery center 08/16/2025 12:49 PM EDT - 08/16/2025 1:32 PM EDT Surgery [facility] End[facility] [address] [place] [address] Juan Daniel Contreras MD [address] [facility] [id number] [place] [address] RADIOFREQUENCY ABLATION NERVES INNERVATING THE SACROILIAC JOINT W/IMAGE GUIDANCE FLUORO OR CT [facility] Comment on above: RADIOFREQUENCY ABLATION NERVES [...] physician 08/16/2025 12:49 PM EDT Hospital Encounter [facility] [address] [place] [address] Juan Daniel Contreras MD [address] [facility] [place] [address] SI (sacroiliac) joint dysfunction [M53.3] [facility] Comment on above: SI (sacroiliac) joint dysfunction [M53.3 ] Start: 08-16-2025 End: 08-16-2025 Admission to same day surgery center 08/16/2025 10:25 AM EDT - 08/16/2025 11:08 AM EDT Surgery [facility] End[facility] [address] [place] [address] Juan Daniel Contreras MD [address] [address] RADIOFREQUENCY ABLATION NERVES INNERVATING THE SACROILIAC JOINT W/IMAGE GUIDANCE FLUORO OR CT [facility] Comment on above: RADIOFREQUENCY ABLATION NERVES [...] physician 08/16/2025 10:25 AM EDT Hospital Encounter [facility] [address] [place] [address] Juan Daniel Contreras MD [address] [facility] [place] [address] SI (sacroiliac) joint dysfunction [M53.3] [facility] Comment on above: SI (sacroiliac) joint dysfunction [M53.3 ] Start: 08-13-2025 End: 08-13-2025 Patient encounter procedure 08/13/2025 1:40 PM [place] [address] Greta Templeton [address] [address] [facility] Comment on above: RBUX/SX FU Start: 08-10-2025 End: 08-10-2025 Patient encounter procedure 08/10/2025 9:40 AM EDT Office Visit [facility] [address] [place] [address] Nagi Red MD [address] [place] [address] 3 week f/u HTN/Glucose [facility] Comment on above: 3 week f/u HTN/Glucose Start: 08-06-2025 End: 08-06-2025 Patient encounter procedure [facility] Comment on above: Bilateral nephrolithiasis [N20.0] Start: 07-23-2025 Influenza [facility] Start: 07-18-2025 End: 07-18-2025 Patient encounter procedure [facility] Comment on above: 3 wk BP f/u 3 wk BP f/u - elevat ed sugars/A1c results Start: 07-17-2025 End: 07-17-2025 [facility] 07/17/2025 10:30 AM EDT [facility] Pain Management [address] [address] Carlie Brownlee, COMPENSATION SUPERVISOR.METAL DRILL OPERATOR [address] [place] [address] Rx refill -- update after march surgery Pain Management Comment on above: Rx refill -- update after march surgery Start: 07-12-2025 End: 10-11-2025 Hemoglobin A1c in Blood HEMOGLOBIN A1C Lab Routine Hyperglycemia Expected: 07/12/2025, Expires: 10/11/2025 [facility] Work Phone: Comment on above: Expected: 07/12/2025, Expires: Start: 06-29-2025 End: 06-29-2025 Admission to same day surgery center 06/29/2025 1:15 PM EDT - 06/29/2025 3:30 PM EDT Surgery [address] [address] Greta Templeton DO [address] [place] [id number] CYSTOSCOPY [facility] Comment on above: CYSTOSCOPY Start: 06-29-2025 End: [...] physician 06/29/2025 1:15 PM EDT Hospital Encounter [place] [id number] Greta Templeton [address] [place] [address] Bilateral nephrolithiasis [N20.0], Right flank pain [R10.9] [facility] Comment on above: Bilateral nephrolithiasis [N20.0], Right flank pain [R10.9] Start: 06-28-2025 End: 06-28-2025 Patient encounter procedure 06/28/2025 11:00 AM EDT Office Visit [facility] [place] [address] [place] [address] Nagi Red MD [address] [place], [place] [phone] elevated BP - next day surgery (unsure if needed time for a pre-op) [facility] [place] Comment on above: elevated BP - next day surgery (unsure i f needed time for a pre-op) Start: 06-19-2025 Annual PCP Team Chronic Disease Visit Annual PCP Team Chronic Disease Visit [facility] Start: 06-19-2025 End: 06-19-2025 Patient encounter procedure 06/19/2025 11:00 AM EDT Office Visit [facility] [employer] [facility] [address] [place] [address] [facility] [address] [place] [address] f/u stat ct flank NEED UA [facility] Comment on above: f/u stat ct flank NEED UA Start: 06-15-2025 End: 07-16-2026 CT Abdomen and Pelvis WO contrast CT FLANK WO IVCON Radiology Routine Bilateral nephrolithiasis Expected: 06/15/2025, Expires: 07/16/2026 [facility] Work Phone: Comment on above: Expected: 06/15/2025, Expires: Start: 06-15-2025 End: 06-15-2025 Patient encounter procedure 06/15/2025 11:40 AM EDT Office Visit [facility] [address] [place] [address] Greta Templeton, [address] [place] [address] F/U PER SARAH FOR 6MM NON-OBSTRUCTING KIDNEY STONE [facility] Comment on above: F/U PER SARAH FOR 6MM NON-OBSTRUCTING K IDNEY STONE Start: 06-07-2025 End: 06-07-2025 Patient encounter procedure 06/07/2025 1:00 PM EDT Office Visit Urology [address] [place] [address] Sarah Miramontes APRN.METAL DRILL OPERATOR [address] [place] [address] Kidney Stones Urology Comment on above: Kidney Stones Start: 05-24-2025 End: 05-24-2025 Patient encounter procedure 05/24/2025 9:40 AM EDT Office Visit [facility] [place] [address] [place], [place] [phone] Christine Dean PA-C [address] [place], [place] [phone] 2 week BP check [facility] [place] Comment on above: 2 week BP check Start: 05-22-2025 End: 05-22-2025 Patient encounter procedure 05/22/2025 9:20 AM EDT Appointment Cat Scan [address] [place] [address] CT FLANK WO IVCON Cat Scan Comment on above: CT FLANK WO IVCON Start: 05-21-2025 End: 05-21-2025 Patient encounter procedure 05/21/2025 10:00 AM EDT Appointment Radiology [address] [place], [place] [phone] Nausea and vomiting, unspecified vomiting type [R11.2]; Right flank pain [R10.9]; RUQ pain [R10.11]; Renal stones [N20.0] Radiology Comment on above: Nausea and vomiting, unspecified vomitin g type [R11.2]; Right flank pain [R10.9]; RUQ pain [R10.11]; Renal stones [N20.0] Start: 05-14-2025 End: 05-14-2025 Patient encounter procedure 05/14/2025 1:00 PM EDT Office Visit Family [facility] [address] [place] [address] Nagi Red MD [address] [place], [place] [phone] ER follow continued Stomach pain [facility] Comment on above: ER follow continued Stomach pain Start: 05-12-2025 Annual PCP Team Chronic Disease Visit Annual PCP Team Chronic Disease Visit [facility] Start: 05-12-2025 BP Controlled (<130/80) BP Controlled (<130/80) [facility] Start: 05-08-2025 End: 05-08-2025 Patient encounter procedure 05/08/2025 8:40 AM EDT Office Visit [facility] [address] [place] [address] Nagi Red MD [address] [place], [place] [phone] Stomach pain continued [facility] Comment on above: Stomach pain continued Start: 05-07-2025 End: 05-07-2025 Patient encounter procedure 05/07/2025 12:20 PM EDT Office Visit Division of Endocrinology [address] [place] [address] [place] [address] Caitlyn Rivera MD [facility] [place] [address] Division of Endocrinology Start: 05-07-2025 End: 05-07-2025 Follow-up encounter 05/07/2025 11:00 AM EDT [facility] [address] [place] [address] Nagi Red MD [address] [place], [place] [phone] Follow up-test results Family [facility] Comment on above: Follow up-test results Start: 05-01-2025 Thyroid stimulating hormone measurement TSH [facility] Start: 05-01-2025 End: 07-31-2025 Thyrotropin [Units/volume] in Serum or Plasma THYROID STIMULATING HORMONE Lab Routine Bilateral pleural effusion Post-surgical hypothyroidism Expected: 05/01/2025, Expires: 07/31/2025 [facility] Work Phone: Comment on above: Expected: 05/01/2025, Expires: Start: 05-01-2025 End: 07-31-2025 Thyroxine (T4) free [Mass/volume] in Serum or Plasma T4 FREE/FREE THYROXINE Lab Routine Bilateral pleural effusion Post-surgical hypothyroidism Expected: 05/01/2025, Expires: 07/31/[address] [facility] Comment on above: Expected: 05/01/2025, Expires: Start: 04-25-2025 Annual PCP Team Chronic Disease Visit Annual PCP Team Chronic Disease Visit [facility] Start: 04-03-2025 End: 04-03-2025 Admission to same day surgery center [facility] Comment on above: RADIOFREQUENCY ABLATION NERVES INNERVATI NG THE SACROILIAC JOINT W/IMAGE GUIDANCE FLUORO OR CT Start: 04-03-2025 End: 04-03-2025 Radiofrequency abltj nrv nrvtg si jt w/img gdn ME OR Start: 04-03-2025 Subsequent hospital visit by physician [facility] Comment on above: SI (sacroiliac) joint dysfunction [M53.3 ] Start: 03-30-2025 End: 03-30-2025 Patient encounter procedure 03/30/2025 11:20 AM EDT Office Visit Family [facility] [address] [facility] [place] [address] Nagi Red MD [address] [place] [address] Er follow up Family [facility] Comment on above: Er follow up Start: 03-25-2025 Annual PCP Team Chronic Disease Visit Annual PCP Team Chronic Disease Visit [facility] Start: 03-19-2025 Tetanus vaccination TETANUS [facility] Start: 03-19-2025 Urine microalbumin profile [facility] Start: 02-26-2025 End: 02-26-2025 Patient encounter procedure 02/26/2025 7:45 AM EDT Office Visit Pain Management [address] [address] Juan Daniel Contreras MD [address] [facility] [place] [address] Cervical/Thoracic Pain (New Pain, Established Patient) Pain [...] EST Office Visit Pain Management [address] [address] Juan Daniel Contreras MD [address] [facility] [place] [address] Cervical/Thoracic Pain (New Pain, Established Patient) Pain Management Comment on above: Cervical/Thoracic Pain (New Pain, Establ ished Patient) Start: 12-29-2024 End: 12-29-2024 Patient encounter procedure 12/29/2024 1:30 PM EST Appointment Radiology [address] [facility], [place] [address] Migraine without aura and without status migrainosus, not intractable [G43.009] Radiology Comment on above: Migraine without aura and without status migrainosus, not intractable [G43.009] Start: 12-15-2024 End: 12-15-2024 Patient encounter procedure 12/15/2024 1:40 PM EST Office Visit Family [facility] [address] [place], [place] [address] Renard Almodovar, [place].METAL DRILL OPERATOR [address] [place], [place] [phone] 3 week med follow up [facility] Comment on above: 3 week med follow up Start: 11-24-2024 End: 11-24-2024 Patient encounter procedure 11/24/2024 1:40 PM EST Office Visit [facility] [address] [place], [place] [phone] Renard Almodovar, KIMBERLEY.METAL DRILL OPERATOR [address] [place], [place] [phone] 3 week med follow up [facility] Comment on above: 3 week med follow up Start: 11-23-2024 BP Controlled (<130/80) BP Controlled (<130/80) [facility] Start: 11-09-2024 End: 11-09-2024 Admission to same day surgery center [facility] Comment on above: RADIOFREQUENCY ABLATION NERVES INNERVATI NG THE SACROILIAC JOINT W/IMAGE GUIDANCE FLUORO OR CT Start: 11-09-2024 End: 11-09-2024 Radiofrequency abltj nrv nrvtg si jt w/img gdn [place] OR Start: 11-09-2024 Subsequent hospital visit by physician [facility] Comment on above: SI (sacroiliac) joint dysfunction [M53.3 ] Start: 11-09-2024 End: 11-09-2024 Admission to same day surgery center 11/09/2024 9:17 AM EST - 11/09/2024 10:00 AM EST Surgery [facility] [address] [place] [address] Juan Daniel Contreras MD [address] [facility] [place] [address] RADIOFREQUENCY ABLATION NERVES INNERVATING THE SACROILIAC JOINT W/IMAGE GUIDANCE FLUORO OR CT [facility] Comment on above: RADIOFREQUENCY ABLATION NERVES [...] 9:17 AM EST Hospital Encounter [facility] [address] [place] [address] Juan Daniel Contreras MD [address] [facility] [place] [address] SI (sacroiliac) joint dysfunction [M53.3] [facility] Comment on above: SI (sacroiliac) joint dysfunction [M53.3 ] Start: 11-01-2024 End: 11-01-2024 Patient encounter procedure 11/01/2024 3:20 PM EST Office Visit [facility] [place] [address] [place], [place] [phone] Christine Dean PA-C [address] [place], [place] [address] f/u migraines [facility] [place] Comment on above: f/u migraines Start: 10-26-2024 End: 01-25-2025 C reactive protein [Mass/volume] in Serum or Plasma [facility] Comment on above: Expected: 10/26/2024, Expires: Start: 10-26-2024 End: 01-25-2025 CBC W Auto Differential panel - Blood [facility] Work Phone: Comment on above: Expected: 10/26/2024, Expires: Start: 10-26-2024 End: 01-25-2025 Comprehensive metabolic 2000 panel - Serum or Plasma [facility] Comment on above: Expected: 10/26/2024, Expires: Start: 10-26-2024 End: 01-25-2025 Erythrocyte sedimentation rate [facility] Comment on above: Expected: 10/26/2024, Expires: Start: 10-26-2024 End: 01-25-2025 Magnesium [Mass/volume] in Serum or Plasma [facility] Comment on above: Expected: 10/26/2024, Expires: Start: 10-26-2024 End: 01-25-2025 Thyrotropin [Units/volume] in Serum or Plasma [facility] Comment on above: Expected: 10/26/2024, Expires: Start: 10-26-2024 End: 10-26-2024 Patient encounter procedure Family [facility] Comment on above: Physical Physical-see phone n ote 10/23. Discuss migraine medication Start: 10-04-2024 BP Controlled (<130/80) BP Controlled (<130/80) [facility] Start: 09-21-2024 End: 12-21-2024 Comprehensive metabolic 2000 panel - Serum or Plasma COMPREHENSIVE METABOLIC PANEL Lab Routine Leg cramps Expected: 09/21/2024, Expires: 12/21/2024 [facility] Work Phone: Comment on above: Expected: 09/21/2024, Expires: Start: 09-21-2024 End: 12-21-2024 Magnesium [Mass/volume] in Serum or Plasma MAGNESIUM Lab Routine Leg cramps Expected: 09/21/2024, Expires: 12/21/[address] [facility] Comment on above: Expected: 09/21/2024, Expires: Start: 09-21-2024 End: 09-21-2024 Patient encounter procedure 09/21/2024 8:00 AM EDT Office Visit Family [facility] [address] [place], [place] [phone] Christine Dean PA-C [address] [place], [place] [phone] Physical [facility] [place] Comment on above: Physical Start: 09-18-2024 End: 09-18-2024 Admission to same day surgery center 09/18/2024 3:30 PM EDT [facility] [address] [address] Carlie Brownlee COMPENSATION SUPERVISOR.METAL DRILL OPERATOR [address] [place] [address] Medication renew discuus surgery for October Pain Management Comment on above: Medication renew discuus surgery for Oct ember Start: 08-16-2024 End: 08-16-2024 Patient encounter procedure 08/16/2024 10:00 AM EDT Office Visit [facility] [address] [phone] Jyoti Rose MD [address] [place], [place] [phone] Elevated LALI. pe [facility] [place] Comment on above: Elevated LALI. pe Start: 08-14-2024 End: 08-14-2024 Patient encounter procedure 08/14/2024 1:00 PM EDT Office Visit Urology [address] [place], [place] [phone] Jose Antonio Mane, COMPENSATION SUPERVISOR.METAL DRILL OPERATOR, DNP [address] [place], [place] [phone] Renal stones [N20.0] Urology Comment on above: Renal stones [N20.0] Start: 07-23-2024 Covid-19 Vaccine ( season) Covid-19 Vaccine ( season) [facility] Start: 07-23-2024 Influenza vaccination [facility] Start: 06-30-2024 End: 06-30-2024 Nursing evaluation of patient and report 06/30/2024 10:00 AM EDT Nurse Visit [facility] [address] [place], [place] [phone] Nurse, Ri [address] [place], [place] [phone] Suture removal on left shoulder [facility] Comment on above: Suture removal on left shoulder Start: 06-19-2024 End: 06-19-2024 Patient encounter procedure 06/19/2024 1:20 PM EDT Office Visit [facility] [address] [place], [place] [phone] Nagi Red MD [address] [place], [place] [phone] Excisional biospy 40 minute appt rj [facility] Comment on above: Excisional biospy 40 minute appt rj Start: 06-13-2024 End: 06-13-2024 Admission to same day surgery center 06/13/2024 11:26 AM EDT - 06/13/2024 12:09 PM EDT Surgery [facility] [address] [place] [address] Juan Daniel Contreras MD [address] [place] [address] [place] [address] RADIOFREQUENCY ABLATION NERVES INNERVATING THE SACROILIAC JOINT W/IMAGE GUIDANCE [facility] Comment on above: RADIOFREQUENCY ABLATION NERVES INNERVATI NG THE SACROILIAC JOINT W/IMAGE GUIDANCE Start: 06-13-2024 End: 06-13-2024 Radiofrequency abltj nrv nrvtg si jt w/img gdn RADIOFREQUENCY ABLATION NERVES INNERVATING THE SACROILIAC JOINT W/IMAGE GUIDANCE SI (sacroiliac) joint dysfunction 06/13/2024 11:26 AM EDT ME OR Start: 06-13-2024 Subsequent hospital visit by physician 06/13/2024 11:26 AM EDT Hospital Encounter [facility] [address] [place] [address] Juan Daniel Contreras MD [address] [place] [address] [place] [address] SI (sacroiliac) joint dysfunction [M53.3] [facility] Comment on above: SI (sacroiliac) joint dysfunction [M53.3 ] Start: 06-05-2024 End: 06-05-2024 Patient encounter procedure 06/05/2024 10:20 AM EDT Office Visit [facility] [address] [place], [place] [phone] Renard Almodovar APRN.METAL DRILL OPERATOR [address] [place], [place] [phone] 4 week follow up HTN [facility] Comment on above: 4 week follow up HTN Start: 05-23-2024 End: 05-23-2024 Patient encounter procedure 05/23/2024 1:40 PM EDT Office Visit [facility] [address] [place], [place] [phone] Nagi Red MD [address] [place], [place] [phone] excisional bx [facility] Comment on above: excisional bx Start: 05-23-2024 End: 05-23-2024 Admission to same day surgery center 05/23/2024 10:53 AM EDT - 05/23/2024 11:36 AM EDT Surgery [facility] [address] [place] [address] Juan Daniel Contreras MD [address] [facility] [address] [place] [address] RADIOFREQUENCY ABLATION NERVES INNERVATING THE SACROILIAC JOINT W/IMAGE GUIDANCE [facility] Comment on above: RADIOFREQUENCY ABLATION NERVES INNERVATI NG THE SACROILIAC JOINT W/IMAGE GUIDANCE Start: 05-23-2024 End: 05-23-2024 Radiofrequency abltj nrv nrvtg si jt w/img gdn RADIOFREQUENCY ABLATION NERVES INNERVATING THE SACROILIAC JOINT W/IMAGE GUIDANCE SI (sacroiliac) joint dysfunction 05/23/2024 10:53 AM EDT ME OR Start: 05-23-2024 Subsequent hospital visit by physician 05/23/2024 10:53 AM EDT Hospital Encounter [facility] [address] [place] [address] Juan Daniel Contreras MD [address] [facility] [address] [place] [address] SI (sacroiliac) joint dysfunction [M53.3] [facility] Comment on above: SI (sacroiliac) joint dysfunction [M53.3 ] Start: 05-10-2024 End: 05-10-2024 Patient encounter procedure 05/10/2024 1:00 PM EDT Office Visit [facility] [address] [place], [place] [phone] Nagi Red MD [address] [place], [place] [address] [phone] excisional bx [facility] Comment on above: excisional bx Start: 05-02-2024 End: 05-02-2024 Patient encounter procedure 05/02/2024 2:20 PM EDT Office Visit [facility] [address] [place] [address] Nagi Red MD [address] [place] [address] excisional biopsy [facility] Comment on above: excisional biopsy Start: 04-27-2024 ANNUAL PCP TEAM CHRONIC DISEASE VISIT ANNUAL PCP TEAM CHRONIC DISEASE VISIT [facility] Start: 04-27-2024 End: 04-27-2024 Patient encounter procedure 04/27/2024 10:20 AM EDT Office Visit [facility] [address] [place] [address] Nagi Red MD [address] [place] [address] excisional biopsy [facility] Comment on above: excisional biopsy Start: 04-26-2024 End: 04-26-2024 ambulatory 04/26/2024 11:15 AM EDT Procedure PULM LAB [facility] [address] [place], [place] [id number] Wstr, Pulm Lab [facility] [address] [place] [address] Exercise-induced asthma [J45.990] PULM LAB [facility] Comment on above: Exercise-induced asthma [J45.990] Start: 04-25-2024 End: 07-25-2024 Angiotensin converting enzyme [Enzymatic activity/volume] in Serum or Plasma KATHERINE/ANGIOTENSIN BLD Lab Routine SOB (shortness of breath) Expected: 04/25/2024, Expires: 07/25/[address] [facility] Comment on above: Expected: 04/25/2024, Expires: Start: 04-25-2024 End: 04-25-2024 Patient encounter procedure 04/25/2024 11:20 AM EDT Office Visit Family [facility] [address] [facility] [place] [address] Nagi Red MD [address] [place] [address] Physical Family [facility] Comment on above: Physical Start: 04-19-2024 End: 07-19-2024 25-hydroxyvitamin D3 [Mass/volume] in Serum or Plasma VITAMIN D 25 HYDROXY Lab Routine Vitamin D deficiency Expected: 04/19/2024, Expires: 07/19/[address] [facility] Comment on above: Expected: 04/19/2024, Expires: Start: 04-19-2024 End: 07-19-2024 CBC W Auto Differential panel - Blood COMPLETE BLOOD COUNT AND DIFFERENTIAL Lab Routine Post-surgical hypothyroidism Expected: 04/19/2024, Expires: 07/19/[address] [facility] Comment on above: Expected: 04/19/2024, Expires: Start: 04-19-2024 End: 07-19-2024 Comprehensive metabolic 2000 panel - Serum or Plasma COMPREHENSIVE METABOLIC PANEL Lab Routine Hypertension, essential Expected: 04/19/2024, Expires: 07/19/2024 [facility] Work Phone: Comment on above: Expected: 04/19/2024, Expires: Start: 04-19-2024 End: 07-19-2024 Hemoglobin A1c in Blood HEMOGLOBIN A1C Lab Routine Encounter for screening for diabetes mellitus Expected: 04/19/2024, Expires: 07/19/[address] [facility] Comment on above: Expected: 04/19/2024, Expires: Start: 04-19-2024 End: 07-19-2024 LIPID PANEL, NONFASTING LIPID PANEL, NONFASTING Lab Routine Hypertension, essential Expected: 04/19/2024, Expires: 07/19/[address] [facility] Comment on above: Expected: 04/19/2024, Expires: Start: 04-19-2024 End: 07-19-2024 Thyrotropin [Units/volume] in Serum or Plasma THYROID STIMULATING HORMONE Lab Routine Post-surgical hypothyroidism Expected: 04/19/2024, Expires: 07/19/[address] [facility] Comment on above: Expected: 04/19/2024, Expires: Start: 04-19-2024 End: 07-19-2024 Urinalysis complete panel - Urine URINALYSIS, WITH MICROSCOPIC Lab Routine Hypertension, essential Expected: 04/19/2024, Expires: 07/19/[address] [facility] Comment on above: Expected: 04/19/2024, Expires: Start: 04-14-2024 End: 04-14-2024 Patient encounter procedure 04/14/2024 9:20 AM EDT Office Visit [facility] [address] [place] [address] Nagi Red MD [address] [place] [address] excisional biopsy [facility] Comment on above: excisional biopsy Start: 03-25-2024 End: 03-25-2024 Patient encounter procedure 03/25/2024 9:20 AM EDT Office Visit [facility] [address] [place] [address] Nagi Red MD [address] [place] [address] Skin lesion on back made [address] Red needs to remove rosalio [facility] Comment on above: Skin lesion on back made 40 minutes in c ase Dr. Red needs to remove rosalio Start: 03-21-2024 End: 03-21-2024 ambulatory 03/21/2024 9:00 AM EDT [facility] [address] [address] Zackary Mchugh MD [address] [place] [address] Kidney Stones Urology Comment on above: Kidney Stones Start: 03-03-2024 ANNUAL PCP TEAM CHRONIC DISEASE VISIT ANNUAL PCP TEAM CHRONIC DISEASE VISIT [facility] Start: 11-22-2023 Behavioral Health Screening Behavioral Health Screening [facility] Start: 11-22-2023 Depression Assessment Depression Assessment [facility] Start: 09-16-2023 Thyroid stimulating hormone measurement TSH U [facility] Start: 09-01-2023 ANNUAL PCP TEAM CHRONIC DISEASE VISIT ANNUAL PCP TEAM CHRONIC DISEASE VISIT [facility] Start: 08-20-2023 End: 10-20-2023 25-hydroxyvitamin D3 [Mass/volume] in Serum or Plasma VITAMIN D 25 HYDROXY Lab Routine Vitamin D deficiency Expected: 08/20/2023, Expires: 10/20/2023 [facility] Work Phone: Comment on above: Expected: 08/20/2023, Expires: 3 Start: 08-20-2023 End: 10-20-2023 CBC W Auto Differential panel - Blood CBC + DIFF Lab Routine Primary thyroid papillary carcinoma (HCC) PTSD (post-traumatic stress disorder) Expected: 08/20/2023, Expires: 10/20/2023 [facility] Work Phone: Comment on above: Expected: 08/20/2023, Expires: 3 Start: 08-20-2023 End: 10-20-2023 Comprehensive metabolic 2000 panel - Serum or Plasma COMP METABOLIC PANEL Lab Routine Hypertension, essential Expected: 08/20/2023, Expires: 10/20/2023 [facility] Work Phone: Comment on above: Expected: 08/20/2023, Expires: 3 Start: 08-20-2023 End: 10-20-2023 Hemoglobin A1c in Blood HGB A1C Lab Routine Encounter for screening for diabetes mellitus Expected: 08/20/2023, Expires: 10/20/2023 [facility] Work Phone: Comment on above: Expected: 08/20/2023, Expires: 3 Start: 08-20-2023 End: 10-20-2023 LIPID PANEL, NONFASTING LIPID PANEL, NONFASTING Lab Routine Hypertension, essential Expected: 08/20/2023, Expires: 10/20/2023 [facility] Work Phone: Comment on above: Expected: 08/20/2023, Expires: 3 Start: 08-20-2023 End: 10-20-2023 Urinalysis complete panel - Urine URINALYSIS, WITH MICROSCOPIC Lab Routine Hypertension, essential Expected: 08/20/2023, Expires: 10/20/2023 [facility] Work Phone: Comment on above: Expected: 08/20/2023, Expires: Start: 07-23-2023 Covid-19 Vaccine ( season) Covid-19 Vaccine ( season) [facility] Start: 07-23-2023 Influenza vaccination [facility] Start: 07-06-2023 Adult depression screening assessment DEPRESSION SCREENING [facility] Start: 07-06-2023 ANNUAL PCP TEAM CHRONIC DISEASE VISIT ANNUAL PCP TEAM CHRONIC DISEASE VISIT [facility] Start: 04-27-2023 End: 06-27-2023 Thyrotropin [Units/volume] in Serum or Plasma [facility] Work Phone: Comment on above: Expected: 04/27/2023, Expires: 3 Start: 04-27-2023 End: 06-27-2023 Thyroxine (T4) free [Mass/volume] in Serum or Plasma [facility] Work Phone: Comment on above: Expected: 04/27/2023, Expires: 3 Start: 04-27-2023 End: 06-27-2023 Triiodothyronine (T3) [Mass/volume] in Serum or Plasma [facility] Work Phone: Comment on above: Expected: 04/27/2023, Expires: 3 Start: 03-18-2023 Thyroid stimulating hormone measurement TSH [facility] Start: 03-17-2023 End: 03-17-2023 Patient encounter procedure 03/17/2023 Office Visit Endocrinology, Diabetes & Metabolism Caitlyn Rivera MD [address] [facility] [place] [place] [phone] Division of Endocrinology Start: 03-03-2023 End: 05-03-2023 LIPID PANEL, NONFASTING LIPID PANEL, NONFASTING Lab Routine Hypertension, essential Expected: 03/03/2023, Expires: 05/03/2023 [facility] Work Phone: Comment on above: Expected: 03/03/2023, Expires: 3 Start: 11-22-2022 DEPRESSION ASSESSMENT DEPRESSION ASSESSMENT [facility] Start: 09-16-2022 End: 09-16-2023 THYROGLOBULIN&THYROGLOBUL IN AB [facility] Comment on above: Expected: 09/16/2022, Expires: 3 Start: 09-16-2022 End: 09-16-2022 Patient encounter procedure 09/16/2022 Office Visit Endocrinology, Diabetes & Metabolism Caitlyn Rivera MD [address] [facility] [place] [address] Division of Endocrinology Start: 08-11-2022 Potassium [Moles/volume] in Serum or Plasma POTASSIUM [facility] Start: 07-23-2022 Influenza vaccination [facility] Start: 07-06-2022 End: 09-05-2022 [address] A1c in Blood [facility] Work Phone: Comment on above: Expected: 07/06/2022, Expires: 2 Start: 07-06-2022 End: 09-05-2022 Thyrotropin [Units/volume] in Serum or Plasma [facility] Work Phone: Comment on above: Expected: 07/06/2022, Expires: 2 Start: 06-04-2022 Thyroid stimulating hormone measurement TSH [facility] Start: 05-06-2022 PAP TESTING PAP TESTING [facility] Start: 05-06-2022 Screening for malignant neoplasm of cervix Pap Testing [facility] Start: 04-21-2022 End: 04-21-2022 Telemedicine consultation with patient 04/21/2022 Telemedicine Otolaryngology Osvaldo Tapia MD [address] [place] [address] Department of Otolaryngology Start: 04-17-2022 End: 04-17-2022 Patient encounter procedure 04/17/2022 Appointment Magnetic Resonance Imaging Carol Land, COMPENSATION SUPERVISOR-METAL DRILL OPERATOR [address] [place] [address] Imaging and Mammography [facility] [place] Start: 03-26-2022 End: 03-26-2023 MR Salivary gland MRI SIALOGRAM Imaging Routine Sialadenitis Expected: 03/26/2022, Expires: 03/26/2023 [facility] Comment on above: Expected: 03/26/2022, Expires: 3 Start: 03-26-2022 End: 03-26-2022 ambulatory 03/26/2022 Rehab Services Visit Voice & Swallowing Osvaldo Tapia MD [address] [place] [address] [facility] Start: 03-26-2022 End: 03-26-2022 Patient encounter procedure 03/26/2022 Office Visit Otolaryngology Osvaldo Tapia MD [address] [place] [address] Department of Otolaryngology Start: 10-15-2021 End: 10-15-2021 Patient encounter procedure 10/15/2021 Office Visit Endocrinology, Diabetes & Metabolism Caitlyn Rivera MD [address] [facility] [place] [place] [address] Division of Endocrinology Start: 07-23-2021 Influenza vaccination INFLUENZA VACCINE (#1) [facility] Start: 2021 HPV TESTING HPV TESTING [facility] Start: 2021 Screening for malignant neoplasm of cervix HPV Testing [facility] Start: 11-04-2020 ANNUAL PCP TEAM CHRONIC DISEASE VISIT ANNUAL PCP TEAM CHRONIC DISEASE VISIT [facility] Start: 05-06-2020 Screening for malignant neoplasm of cervix Cervical Cancer Screening [facility] Start: 05-20-2018 Adult depression screening assessment DEPRESSION SCREENING [facility] Start: 2012 Screening for malignant neoplasm of cervix CERVICAL CANCER SCREENING DISCUSSION [facility] Start: 2010 PNEUMOCOCCAL VACCINE SERIES (1 of 2 - PCV) PNEUMOCOCCAL VACCINE SERIES (1 of 2 - PCV) [facility] Start: 2010 Third diphtheria, tetanus and acellular pertussis (DTaP) vaccination TDAP (ADULT) [facility] Start: 2010 Zoster vaccine hzv live for subcutaneous use ZOSTER (SHINGLES) VACCINE (1 of 2) [facility] Start: 2009 ANNUAL PCP TEAM CHRONIC DISEASE VISIT ANNUAL PCP TEAM CHRONIC DISEASE VISIT [facility] Start: 2009 BP CONTROLLED (<130/80) BP CONTROLLED (<130/80) [facility] Start: 2009 Depression Screening Depression Screening [facility] Start: 2009 HEPATITIS C SCREENING HEPATITIS C SCREENING [facility] Start: 2009 Hepatitis C screening Hepatitis C Screening [facility] Start: 2009 SPIROMETRY SPIROMETRY [facility] Start: 2009 Tetanus vaccination TETANUS [facility] Start: 2006 HIV screening HIV SCREENING DISCUSSION [facility] Start: 2003 COVID-19 VACCINE (1) COVID-19 VACCINE (1) [facility] Start: 1997 PNEUMOCOCCAL (1 - PCV) PNEUMOCOCCAL (1 - PCV) [facility] ic Start: 1997 Pneumococcal vaccination [facility] c Start: 1997 PNEUMOCOCCAL VACCINE SERIES (1 - PCV) PNEUMOCOCCAL VACCINE SERIES (1 - PCV) [facility] Start: 1997 PNEUMOCOCCAL VACCINE SERIES (1 of 2 - PCV) PNEUMOCOCCAL VACCINE SERIES (1 of 2 - PCV) [facility] Start: 1996 COVID-19 VACCINE (#1) COVID-19 VACCINE (#1) [facility] Start: 1996 COVID-19 VACCINE (1) COVID-19 VACCINE (1) [facility] Start: 1991 COVID-19 VACCINE (#1) COVID-19 VACCINE (#1) [facility] Start: 1991 Hepatitis C antibody, confirmatory test HEPATITIS C VIRUS SCREENING [facility] Start: 1991 Hepatitis C screening HEPATITIS C VIRUS SCREENING [facility] Bacteria identified in Urine by Culture URINE CULTURE Microbiology Routine Dysuria Ordered: 09/29/2024 [facility] Work Phone: Comment on above: Ordered: 09/29/2024 Bacteria identified in Urine by Culture BACTERIAL CULTURE, URINE Microbiology Routine Kidney stones Right flank pain Hematuria, unspecified type 06/07/2025 1:36 PM EDT [facility] CBC W Auto Different ial panel - Blood CBC + DIFF Lab Routine Hypertension, essential Weight gain Primary thyroid papillary carcinoma (HCC) 07/06/2022 10:[address] [facility] Work Phone: COVID & INFLUENZA A/ B & RSV NAAT, ROUTINE COVID & INFLUENZA A/B & RSV NAAT, ROUTINE Microbiology Routine URI, acute 01/07/2024 11:[address] [facility] Work Phone: COVID & INFLUENZA A/ B & RSV PCR, ROUTINE COVID & INFLUENZA A/B & RSV PCR, ROUTINE Microbiology Routine Viral illness Ordered: 09/15/2024 [facility] Work Phone: Comment on above: Ordered: 09/15/2024 End: 06-07-2026 CT Abdomen and Pelvis WO contrast CT FLANK WO IVCON Radiology Routine Nausea Nausea and vomiting, unspecified vomiting type RUQ pain Right flank pain 1 Occurrences starting 05/08/2025 until 06/07/[address] [facility] Comment on above: 1 Occurrences starting 05/08/2025 until 06/07/2026 End: 05-26-2024 Ct angiography chest w/contrast/noncontrast CTA CHEST (NONGATED) W IVCON Radiology STAT Adverse effect of treatment, initial encounter 1 Occurrences starting 04/27/2023 until 05/26/2024 [facility] Work Phone: Comment on above: 1 Occurrences starting 04/27/2023 until 05/26/2024 End: 06-07-2026 CT Chest WO contrast CT CHEST WO IVCON Radiology Routine SOB (shortness of breath) 1 Occurrences starting 05/08/2025 until 06/07/[address] [facility] Comment on above: 1 Occurrences starting 05/08/2025 until 06/07/2026 End: 05-26-2024 CTA NECK W IVCON CTA NECK W IVCON Radiology Routine Adverse effect of treatment, initial encounter 1 Occurrences starting 04/27/2023 until 05/26/2024 [facility] Work Phone: Comment on above: 1 Occurrences starting 04/27/2023 until 05/26/2024 Dstrj neurolytic age nt other peripheral nerve NRV DESTR RFA, CHEM OTHER Procedures Routine SI (sacroiliac) joint dysfunction Ordered: 04/07/2022 [facility] Work Phone: Comment on above: Ordered: 04/07/2022 Dstrj neurolytic age nt other peripheral nerve NRV DESTR RFA, CHEM OTHER Procedures Routine SI (sacroiliac) joint dysfunction Ordered: 11/25/2022 [facility] Work Phone: Comment on above: Ordered: 11/25/2022 Dstrj neurolytic age nt other peripheral nerve NRV DESTR RFA, CHEM OTHER Procedures Routine SI (sacroiliac) joint dysfunction Ordered: 06/08/2023 [facility] Work Phone: Comment on above: Ordered: 06/08/2023 Dstrj neurolytic age nt other peripheral nerve NRV DESTR RFA, CHEM OTHER Procedures Routine SI (sacroiliac) joint dysfunction Ordered: 03/16/2024 [facility] Work Phone: Comment on above: Ordered: 03/16/2024 Dstrj neurolytic age nt other peripheral nerve NRV DESTR RFA, CHEM OTHER Procedures Routine SI (sacroiliac) joint dysfunction Ordered: 09/18/2024 [facility] Work Phone: Comment on above: Ordered: 09/18/2024 Dstrj neurolytic age nt other peripheral nerve NRV DESTR RFA, CHEM OTHER Procedures Routine SI (sacroiliac) joint dysfunction Ordered: 03/02/2025 [facility] Work Phone: Comment on above: Ordered: 03/02/2025 Dstrj neurolytic age nt other peripheral nerve NRV DESTR RFA, CHEM OTHER Procedures Routine SI (sacroiliac) joint dysfunction Ordered: 07/17/2025 [facility] Work Phone: Comment on above: Ordered: 07/17/2025 Inject si joint arthrgrphy&/anes/steroid w/jayce INJECTION PROCEDURE FOR SACROILIAC Procedures Routine SI (sacroiliac) joint dysfunction Sacroiliitis, not elsewhere classified (HCC) 1 Occurrences starting 01/12/2023 [facility] Work Phone: Comment on above: 1 Occurrences starting 01/12/2023 End: 06-07-2026 METHACHOLINE CHALLENGE METHACHOLINE CHALLENGE PFT Routine SOB (shortness of breath) 1 Occurrences starting 05/08/2025 until 06/07/[address] [facility] Comment on above: 1 Occurrences starting 05/08/2025 until 06/07/2026 End: 01-14-2026 MR Brain WO contrast MRI BRAIN WO IVCON Radiology Routine Migraine without aura and without status migrainosus, not intractable 1 Occurrences starting 12/15/2024 until 01/14/2026 [facility] Work Phone: Comment on above: 1 Occurrences starting 12/15/2024 until 01/14/2026 End: 06-14-2025 MR Lumbar spine WO contrast MRI LUMBAR SPINE WO IVCON Radiology Routine Spinal stenosis of lumbar region, unspecified whether neurogenic claudication present Radiculopathy, lumbar region Spinal stenosis of lumbar region with neurogenic claudication 1 Occurrences starting 05/16/2024 until 06/14/2025 [facility] Work Phone: Comment on above: 1 Occurrences starting 05/16/2024 until 06/14/2025 End: 04-17-2022 MR Salivary gland [facility] Comment on above: 1 Occurrences starting 04/17/2022 until 04/17/2022 End: 06-07-2026 NITRIC OXIDE, EXHALED NITRIC OXIDE, EXHALED PFT Routine SOB (shortness of breath) 1 Occurrences starting 05/08/2025 until 06/07/2026 [facility] Work Phone: Comment on above: 1 Occurrences starting 05/08/2025 until 06/07/2026 Protein [Mass/time] in 24 hour Urine PROTEIN, 24 HOUR URINE Lab Routine Proteinuria, unspecified type Ordered: 05/08/[address] [facility] Comment on above: Ordered: 05/08/2025 End: 05-25-2025 SPIROMETRY - BASELINE AND POST DILATOR SPIROMETRY - BASELINE AND POST DILATOR PFT Routine Exercise-induced asthma SOB (shortness of breath) 1 Occurrences starting 04/25/2024 until 05/25/2025 [facility] Work Phone: Comment on above: 1 Occurrences starting 04/25/2024 until 05/25/2025 SPIROMETRY - BASELIN E AND POST DILATOR SPIROMETRY - BASELINE AND POST DILATOR PFT Routine Exercise-induced asthma SOB (shortness of breath) 04/26/2024 11:[address] [facility] Work Phone: Thyrotropin [Units/volume] in Serum or Plasma THYROID STIMULATING HORMONE Lab Routine Bilateral pleural effusion Post-surgical hypothyroidism 05/02/2025 2:14 PM EDT [facility] Thyroxine (T4) free [Mass/volume] in Serum or Plasma T4 FREE/FREE THYROXINE Lab Routine Bilateral pleural effusion Post-surgical hypothyroidism 05/02/2025 2:14 PM EDT [facility] UA DIP, URINE (POC) UA DIP, URIN E (POC) Lab Routine Kidney stones Right flank pain Ordered: 06/07/2025 [facility] Work Phone: Comment on above: Ordered: 06/07/2025 End: 06-16-2026 US Kidney - bilateral and Urinary bladder US KIDNEY/BLADDER Radiology Routine Nausea and vomiting, unspecified vomiting type Right flank pain RUQ pain Renal stones 1 Occurrences starting 05/17/2025 until 06/16/2026 [facility] Work Phone: Comment on above: 1 Occurrences starting 05/17/2025 until 06/16/2026 US Kidney - bilatera l and Urinary bladder US KIDNEY/BLADDER Radiology Routine Nausea and vomiting, unspecified vomiting type Right flank pain RUQ pain Renal stones 05/21/2025 10:[address] [facility] Work Phone: US Kidney - bilatera l and Urinary bladder US KIDNEY/BLADDER Radiology Routine Bilateral nephrolithiasis 08/06/2025 10:[address] [facility] Work Phone: [facility] Immunizations Immunization Date Immunization Notes Care Provider Isiah salinas 08-21-2024 influenza virus vaccine, unspecified formulation Nagi Red MD Work Phone: [facility] 10-19-2017 influenza virus vaccine, unspecified formulation Carlie Brownlee APRN.CNP Work Phone: [facility] 09-29-2016 influenza, injectabl e, quadrivalent, contains preservative Capsule Shayan Work Phone: [facility] Work Phone: 09-29-2016 influenza virus vaccine, unspecified formulation Caitlyn Rivera MD Work Phone: [facility] 03-19-2015 tetanus toxoid, redu jennifer diphtheria toxoid, and acellular pertussis vaccine, adsorbed Capsule Downey Work Phone: [facility] Work Phone: 08-24-2012 influenza virus vaccine, unspecified formulation Capsule Downey Work Phone: [facility] 08-24-2009 influenza virus vaccine, unspecified formulation Capsule Downey Work Phone: [facility] Work Phone: 10-05-2008 influenza virus vaccine, unspecified formulation Capsule Downey Work Phone: [facility] Work Phone: 06-08-2008 human papilloma viru s vaccine, quadrivalent Capsule Downey Work Phone: [facility] Work Phone: 04-24-2008 hepatitis A vaccine, unspecified formulation Capsule Downey Work Phone: [facility] Work Phone: 02-10-2008 human papilloma viru s vaccine, quadrivalent Capsule Downey Work Phone: [facility] Work Phone: 12-07-2007 human papilloma viru s vaccine, quadrivalent Capsule Downey Work Phone: [facility] Work Phone: 09-20-2007 influenza virus vaccine, unspecified formulation Capsule Downey Work Phone: [facility] Work Phone: 09-20-2006 influenza virus vaccine, unspecified formulation Capsule Downey Work Phone: [facility] Work Phone: 07-23-2005 Meningococcal, MCV4, unspecified conjugate formulation(groups A, C, Y and W-135) Capsule Downey Work Phone: [facility] Work Phone: 12-26-2002 diphtheria and tetan us toxoids, adsorbed for pediatric use Capsule Shayan Work Phone: [facility] Work Phone: 12-26-2002 measles, mumps and rubella virus vaccine Capsule Shayan Work Phone: [facility] Work Phone: 05-01-2002 hepatitis B vaccine, pediatric or pediatric/adolescent dosage Capsule Shayan Work Phone: [facility] Work Phone: 10-24-2001 hepatitis B vaccine, pediatric or pediatric/adolescent dosage Capsule Downey Work Phone: [facility] Work Phone: 09-27-2001 hepatitis B vaccine, pediatric or pediatric/adolescent dosage Capsule Shayan Work Phone: [facility] Work Phone: 02-18-1998 trivalent poliovirus vaccine, live, oral Capsule Downey Work Phone: [facility] Work Phone: 11-15-1996 Chicken Pox (disease) Capsul e Downey Work Phone: [facility] Work Phone: 10-06-1993 diphtheria, tetanus toxoids and pertussis vaccine Capsule Shayan Work Phone: [facility] Work Phone: 09-20-1992 measles, mumps and rubella virus vaccine Capsule Downey Work Phone: [facility] Work Phone: 1991 diphtheria, tetanus toxoids and pertussis vaccine Capsule Downey Work Phone: [facility] Work Phone: 1991 haemophilus influenz ae type b vaccine, HbOC conjugate Capsule Downey Work Phone: [facility] Work Phone: 1991 diphtheria, tetanus toxoids and pertussis vaccine Capsule Downey Work Phone: [facility] Work Phone: 1991 trivalent poliovirus vaccine, live, oral Capsule Tarpley Work Phone: [facility] Work Phone: 1991 diphtheria, tetanus toxoids and pertussis vaccine Capsule Tarpley Work Phone: [facility] Work Phone: 1991 haemophilus influenz ae type b vaccine, HbOC conjugate Capsule Tarpley Work Phone: [facility] Work Phone: 1991 trivalent poliovirus vaccine, live, oral Capsule Tarpley Work Phone: [facility] Work Phone: Payers Date Payer Category Payer Unknown [id number] 2024 Private Health Insurance [id number] 2024 Unknown [id number] 2024 Self-pay 2020 Medicaid (Managed Care) [employer] [place] [id number] 2020 Unknown [id number]. [id number] 2020 Unknown [id number] 2017 Medicaid [id number]. [id number] 2017 Unknown [id number]. [id number] 1991 Unknown [id number] 2.16.840.1.582036.3.579.2. 419 1991 Unknown [id number] 2.16.840.1.977414.3.579.2. 419 1991 Unknown [id number] 2.16.840.1.910701.3.579.2. 419 1991 Unknown [id number] 2.16.840.1.736806.3.579.2. 419 1991 Unknown [id number] 2.840.1.856795.3.579.2. 419 1991 Unknown [id number] 2.840.1.026963.3.579.2. 651 1991 Unknown [id number] 2.840.1.188427.3.579.2. 594 1991 Unknown [id number] 2.840.1.555278.3.579.2. 594 1991 Unknown [id number] 2.840.1.014709.3.579.2. 594 Unknown [id number] Unknown [id number] 2.840.1.235708.3.579.2. 462 Unknown [id number] 2.840.1.398142.3.579.2. 462 Unknown [id number] 2.16840.1.412074.3.579.2. 462 Unknown [id number] 2.16.840.1.660644.3.579.2. 462 Unknown [id number] 2.16840.1.904549.3.579.2. 462 Unknown [id number] 2.16840.1.568382.3.579.2. 462 Unknown [id number] 2.840.1.981312.3.579.2. 462 Unknown [id number] 2.16.840.1.717545.3.579.2. 462 Unknown [id number] 2.16.840.1.229199.3.579.2. 462 Unknown [id number] 2.16.840.1.514197.3.579.2. 462 Unknown [id number] 2.16.840.1.373946.3.579.2. 462 Unknown [id number] 2.16.840.1.547625.3.579.2. 462 Unknown [id number] 2.16.840.1.913429.3.579.2. 462 Unknown [id number] 2.16.840.1.573501.3.579.2. 462 Unknown [id number] 2.16.840.1.456852.3.579.2. 462 Unknown [id number] 2.16.840.1.972746.3.579.2. 462 Unknown [id number] 2.16.840.1.701599.3.579.2. 462 Unknown [id number] 2.16.840.1.190204.3.579.2. 462 Unknown [id number] 2.16.840.1.667989.3.579.2. 462 Unknown [id number] 2.16840.1.220848.3.579.2. 462 Social History Date Type Detail Facility Start: 10-16-2020 End: 07-06-2022 Tobacco smoking status NHIS Never smoker [facility] Start: 10-16-2020 End: 07-06-2022 Tobacco use and exposure Never used [facility] Start: 06-06-2021 End: 07-18-2025 Alcohol intake Ex-drinker (finding) [facility] Start: 01-15-2021 History SDOH Alcohol Frequency 2 [facility] Start: 01-15-2021 Alcohol Comment occassional [facility] Start: 1990 Sex Assigned At Not on file [facility] Start: 06-17-2021 End: 07-30-2022 Exposure to SARS-CoV-2 (event) Not sure [facility] Start: 01-06-2022 End: 06-19-2025 Alcohol intake Current non-drinker of alcohol (finding) [facility] Start: 07-27-2019 History SDOH Alcohol Comment 2-3 x yearly [facility] Start: 03-27-2022 End: 06-26-2022 Exposure to SARS-CoV-2 (event) Unable to assess [facility] Start: 03-03-2023 End: 04-27-2023 History of Social function [facility] Work Phone: Start: 03-03-2023 End: 04-27-2023 Tobacco use panel [facility] Work Phone: Start: 10-23-2012 Adult Depression Screening Assessment [address] [facility] Work Phone: How often to you hav e a drink containing alcohol? Monthly or less [facility] Has the [employer], or [employer] threatened to shut off services in your home in past 12Mo No [facility] Do you belong to any clubs or organizations such as temple groups, unions, fraternal or athletic groups, or school groups? Yes [facility] Are you now , , , , never or living with a partner? [facility] How often to you hav e a drink containing alcohol? Never [facility] Do you feel stress - tense, restless, nervous, or anxious, or unable to sleep at night because your mind is troubled all the time - these days [OSQ] Only a little [facility] (I/We) worried wheth er (my/our) food would run out before (I/we) got money to buy more. Never true [facility] Start: 09-03-2020 Sex Female (finding) [facility] Medical Equipment Procedure Code Equipment Code Equipment Origin al Text Equipment Identifier Dates Stent Salivary 1 mm Wal[employer]kar Pebax Radiopaque Short Term - [id number] Start: 06-05-2022 Stent Salivary 1 mm [employer]kar Pebax Radiopaque Short Term - [id number] Start: 06-05-2022 Stent Inlay Opti ma 6fr Taper [place] Polymer Phreecoat 28cm Ureteral - [id number] Start: 06-29-2025 Goals Date Patient Goal Desired Activity /State Personal health goal Functional Status Date Assessment Result Facility 05-07-2025 Total score [AUDIT-C] 0 05/07/20 10:52 AM EDT User, Víctoralbertinat [facility] 05-07-2025 How often to you hav e a drink containing alcohol? Never 05/07/2025 10:52 AM EDT User, Mychart Never [facility] 05-07-2025 Functional status Patient does n ot drink 05/07/2025 10:52 AM EDT User, Víctoralbertinat Patient does not drink [facility] 05-07-2025 How often do you hav e 6 or more drinks on 1 occasion? Never 05/07/2025 10:52 AM EDT User, Víctoralbertinat Never [facility] 08-24-2020 Are you deaf, or do you have serious difficulty hearing No 08/24/2020 7:45 AM DEBORAT Belkis Rose, DEANDRE No [facility] 08-24-2020 Are you blind, or do you have serious difficulty seeing, even when wearing glasses No 08/24/2020 7:45 AM Belkis Bynum, RN No [facility] 08-24-2020 Do you have serious difficulty walking or climbing stairs No 08/24/2020 7:45 AM Belkis Bynum, RN No [facility] 08-24-2020 Do you have difficul ty dressing or bathing No 08/24/2020 7:45 AM Belkis Bynum, RN No [facility] 08-24-2020 Because of a physica l, mental, or emotional condition, do you have difficulty doing errands alone such as visiting a physician's office or shopping No 08/24/2020 7:45 AM Belkis Bynum, RN No [facility] Mental Status Date Assessment Result Facility 08-24-2020 Because of a physica l, mental, or emotional condition, do you have serious difficulty concentrating, remembering, or making decisions No 08/24/2020 7:45 AM EDT Belkis Rose RN No [facility] Clinical Notes 03-19-2015 to 09-27-2025 Karen Moreira RDMS - 08/06/2025 10:00 AM EDTPatient InstructionsNagi Red MD - 07/18/2025 8:40 AM EDTTelephone Encounter - Naomi Godwin RN - 07/17/2025 2:21 PM EDTPatient Instructions Note Date & Type Note Facility 09-27-2025 Note HNO ID: [id number] Author: CHRISTINE DEAN PA-C Service: ? Author Type: Physician Motorcycle Delivery Driver Type: Progress Notes Filed: 09/27/2025 08:58 Note [...] 08/07/2013 Bipolar 1 disorder (HCC) 02/14/2018 Seeing [facility] Behavioral Medicine as of 01/2018 Bipolar [...] W/WO SYNOVIAL BX (more content not included)... [facility] 08-13-2025 Note HNO ID: [id number] Author: BOBBY PAIZ APRN.METAL DRILL OPERATOR Service: ? Author Type: Nurse Practitioner [...] - Bipolar 1 disorder (HCC) 02/14/2018 Seeing [facility] Behavioral Medicine as of 01/2018 - Bipolar [...] W/SUPPOSITORYAND/INSTLJ INI 09/2000 (more content not included)... [facility] 08-13-2025 Note HNO ID: [id number] Author: EMMANUELLE MCWILLIAMS RT(Aniket) Service: ? Author Type: General Foundry Worker Type: Progress Notes Filed: 08/13/2025 14:02 Note [...] PATIENT PRESENTS WITH AN IMPLANTABLE OR ATTACHED PULL THROUGH HOOKER: No RADIOLOGY DEPARTMENT: General X-ray: Exam(s) Completed: Chest X-Ray PERIPHERAL IV DATA: Not applicable SIGNED BY: RT Alex(Aniket) August 13, 2025 1:[address] [facility] 08-06-2025 History of Present illness Narrative [...] PATIENT PRESENTS WITH AN IMPLANTABLE OR ATTACHED PULL THROUGH HOOKER: No RADIOLOGY DEPARTMENT: Ultrasound PERIPHERAL IV DATA: Not applicable SIGNED BY: Karen Moreira RDMS RVT August 06, 2025 2:43 PM documented in this encounter [facility] 08-06-2025 Note HNO ID: [id number] Author: KAREN MOREIRA RDMS Service: ? Author Type: Executive Vice President Type: Progress Notes Filed: 08/06/2025 14:43 Note [...] PATIENT PRESENTS WITH AN IMPLANTABLE OR ATTACHED PULL THROUGH HOOKER: No RADIOLOGY DEPARTMENT: Ultrasound PERIPHERAL IV DATA: Not applicable SIGNED BY: Karen Moreira RDMS RVPanda August 06, 2025 2:[address] [facility] 07-18-2025 Instructions Nagi Red MD - [...] weight loss. I recommend consulting with your mica laminating machine feeder to ensure these options are safe given [...] to your next visit. - Contact your mica laminating machine feeder regarding GLP-1 medications or patches for weight loss. - Let me know if you experience any worsening symptoms, such as persistent high blood sugar, increased thirst, frequent urination, or digestive issues. documented in this encounter [facility] 07-18-2025 History of Present illness Narrative [...] well. On 07/12/25 patient sent in a [employer] message as well updating office that she's struggled with her sugar for the past year. Sugars would drop into the 40-60 range and she was told this was related to her gastroparesis. Since having surgery her sugar is running 200-300 most day and when she went to [facility] ED by kathleen it was 510. She reported having a sugar reading of 210 prior to eating. A1c was completed with a result of 6.2. Was seen at [facility] ED on 07/01/25 for R sided kidney and back pain. Patient states that she was advised to remove 3-4 days later, or sooner if issues. Patient states that she was soiling herself with urine with minimal exertion. She took the stent out Wednesday night and right after she started having severe pain. Kathleen was called and she was taken to [facility] ED and evaluated. 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 No surgical correction done. The father of the baby's brother born with a hole in his heart. Surgical correction was done. 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[facility]) Degenerative disc disease Disorders of sacrum 02/20/2013 Dysmenorrhea 04/11/2007 Exercise-induced asthma ([facility]) 03/22/2014 Fetus conceived on control 03/31/2012 [...] Lupus (systemic lupus erythematosus) ([facility]) Migraine without aura and without status [...] QTC Calculation (Bazett) 06/29/2025 430 Calculated P [place] 06/29/2025 28 Calculated R [place] 06/29/2025 -2 Calculated T [place] 06/29/2025 59 HCG Qualitative, Urine 06/29/2025 Negative [...] 06/16/2025 3.12 Monocytes % 06/16/2025 6.5 Abs [place] 06/16/2025 0.85 Eosinophils % 06/16/2025 1.9 Abs Eosin 06/16/2025 0.25 Basophils % 06/16/2025 0.4 Abs Baso 06/16/2025 0.05 Immature Granulocytes % 06/16/2025 1.4 Abs Immature Gran 06/16/2025 0.18 (H) NRBC 06/16/2025 0.0 Absolute nRBC 06/16/2025 <0.01 Diff Type 06/16/2025 Auto Color 06/16/2025 Yellow Clarity 06/16/2025 Clear Glucose, Urine 06/16/2025 Negative Bilirubin, Urine 06/16/2025 Negative Ketones, Urine 06/16/2025 Negative Specific Tarpley, Ur 06/16/2025 1.020 Hemoglobin/Blood,Ur 06/16/2025 3+ (A) [...] 06/07/2025 Negative Ketones, Urine 06/07/2025 Negative Specific Tarpley, Ur 06/07/2025 1.023 Hemoglobin/Blood,Ur 06/07/2025 Negative pH, [...] and record results. - Advised to consult mica laminating machine feeder regarding use of GLP-1 patches or Ozempic [...] Endo for management. - Advised to consult mica laminating machine feeder before initiating GLP-1 therapy for weight loss. [...] which included preparing to see the patient, [id number] patient care, completing clinical documentation, performing a medically appropriate examination, counseling and educating the patient/family/caregiver and ordering medications, tests, or procedures. Recording using [employer] software for draft documentation of the visit was discussed with the patient/authorized manufacturers representative; all questions welcomed and answered. Patient/authorized manufacturers representative agreed to proceed [1] Social History Tobacco Use Smoking status: Never Smokeless tobacco: Never Vaping Use Vaping status: Never Used Substance Use Topics Alcohol use: Not Currently Comment: 2-3 x yearly Drug use: Never documented in this encounter [facility] 07-18-2025 Note HNO ID: [id number] Author: NAGI RED MD Service: ? Author [...] well. On 07/12/25 patient sent in a [employer] message as well updating office that she's struggled with her sugar for the past year. Sugars would drop into the 40-60 range and she was told this was related to her gastroparesis. Since having surgery her sugar is running 200-300 most day and when she went to [facility] ED by squad it was 510. She reported having a sugar reading of 210 prior to eating. A1c was completed with a result of 6.2. Was seen at [facility] ED on 07/01/25 for R sided kidney and back pain. Patient states that she was advised to remove 3-4 days later, or sooner if issues. Patient states that she was soiling herself with urine with minimal exertion. She took the stent out Wednesday night and right after she started having severe pain. Squjuan was called and she was taken to [facility] ED and evaluated. 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 No surgical correction done. The father of the baby's brother born with a hole in his heart. Surgical correction was done. 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 [facility] 07-17-2025 Telephone encounter Note Injection procedure rescheduled from 08/07/2025 to 08/16/2025. Case message sent. [facility] 07-17-2025 Miscellaneous Notes Injection procedure rescheduled from 08/07/2025 to 08/16/2025. Case message sent. documented in this encounter [facility] 07-17-2025 Note HNO ID: [id number] Author: CARLIE BROWNLEE APRN.MARGARITA Service: ? Author Type: Nurse Practitioner Type: Progress Notes Filed: 07/17/2025 10:49 Note Text: I have communicated my name and active licensure. The patient's identity and physical location were verified at the time of this visit. Either the patient or their legal manufacturers representative has been informed of the risks [...] for med refills Visit was conducted via Yunno Provider Location: [facility] Facility Patient Location: Patient Home or Place of Residence I spent a total of 20 minutes on the date of the service which included preparing to see the patient, [id number] patient care, completing clinical documentation, ordering medications, tests, or procedures, and care coordination (not separately reported). [facility] 07-17-2025 History of Present illness Narrative I have communicated my name and active licensure. The patient's identity and physical location were verified at the time of this visit. Either the patient or their legal manufacturers representative has been informed of the risks [...] for med refills Visit was conducted via Yunno Provider Location: [facility] Patient Location: Patient Home or Place of Residence I spent a total of 20 minutes on the date of the service which included preparing to see the patient, fzeb-vr-hlfe patient care, completing clinical documentation, ordering medications, tests, or procedures, and care coordination (not separately reported). documented in this encounter [facility] 07-12-2025 Telephone encounter Note Pt notified of message below from PCP. Phil Millan MA [facility] 07-12-2025 Miscellaneous Notes Pt notified of [...] Phil Millan MA documented in this encounter [facility] 07-12-2025 Telephone encounter Note Let patient know I placed an order for an A1c to get done before her appt with me. We can then eval her BP and the A1c result. [facility] 07-12-2025 Telephone encounter Note Can you review pt's message and advise. Do not see where she's dx with DM and pt follows with [facility], unsure if they manage this? Phil Millan MA [facility] 07-11-2025 Telephone encounter Note Left VM for patient to call office to update registration and go over records needed for review prior to scheduling. [facility] 07-11-2025 Telephone encounter Note ----- Message from Mari Lawrence sent at 06/28/2025 11:16 AM EDT ----- Regarding: Schedule Consult to Gastroenterology Greta Andres is being referred to or the Gastroparesis clinic. Referring Physician: Nagi Red MD Preferred phone number for contact: [phone] Send to GASTROPARESIS SCHEDULING POOL [[id number]] [facility] 07-11-2025 Miscellaneous Notes Left VM for patient to call office to update registration and go over records needed for review prior to scheduling. ----- Message from Mari Lawrence sent at 06/28/2025 11:16 AM EDT ----- Regarding: Schedule Consult to Gastroenterology Greta Andres is being referred to or the Gastroparesis clinic. Referring Physician: Nagi Red MD Preferred phone number for contact: [phone] Send to GASTROPARESIS SCHEDULING POOL [[id number]] documented in this encounter [facility] 06-29-2025 Note HNO ID: [id number] Author: RENARD WYNN [facility] Service: ? Author Type: Pharmacist Type: Plan of Care Filed: 06/29/2025 17:17 Note Text: PHARMACY BEDSIDE DELIVERY SERVICE Patient Name: Greta Andres The marked outpatient medications were Filled at: [facility] and delivered to the patient's bedside to [...] or your Primary Care Provider. Renard Wynn [facility] PAGER: [phone] June 29, 2025 5:16 PM [facility] 06-29-2025 Note HNO ID: [id number] Author: BIMAL ALVAREZ DO Service: ? Author Type: Anesthesiologist Type: Anesthesia Procedure Notes Filed: 06/29/2025 14:31 Note Text: ANESTHESIOLOGY PROCEDURE NOTE Airway General Information Procedure Start Time/Medication Administration: 06/29/2025 2:07 PM Procedure End Time: 06/29/2025 2:13 PM Patient location during procedure: OR Timeout Performed Pre-procedure: timeout performed Consent Obtained: Yes Patient identity confirmed: arm band Staffing Anesthesiologist: Bimal Alvarez DO [employer] SUPERVISOR: Balaji Sharp APRN.SOLID WASTE FACILITY SUPERVISOR Performed by: LETI Indications and Patient Condition [...] no Airway not difficult SIGNATURE: Balaji Sharp APRN.SOLID WASTE FACILITY SUPERVISOR PATIENT NAME: Greta Andres DATE: June 29, 2025 TIME: 2:13 PM CSN: [id number] [facility] 06-28-2025 Note HNO ID: [id number] Author: NAGI RED MD Service: ? Author [...] her BP readings. Yesterday at [facility] in [place] it was 159/95. Supposed to hear back from regarding her Thyroid results and dosage from Dr. Caitlyn Rivera, Division of Endo at [facility]. Greta Andres is a 35-year-old female [...] a referral to a specialist at the [facility] for gastroparesis management. She has previously [...] been treated in the past by Dr. Tyoin Curry and she also saw counselor at the counseling center. She believes she is doing well off medication. She denies ever having any symptoms of depression. 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 No surgical correction done. The father of the baby's brother born with a hole in his heart. Surgical correction was done. 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[facility]) Degenerative disc disease Disorders of sacrum 02/20/2013 Dysmenorrhea 04/11/2007 Exercise-induced asthma ([facility]) 03/22/2014 Fetus conceived on control 03/31/2012 [...] Lupus (systemic lupus erythematosus) ([facility]) Migraine without aura and without status [...] Ureteral dilatation 03/22 (more content not included)... [facility] 06-27-2025 History of Present illness Narrative CC: Papillary thyroid carcinoma History of Present Illness: Greta Andres is a 35 y.o. female presenting for follow up of papillary thyroid carcinoma (TA[place]OR initial stratification intermediate risk). She is s/p total thyroidectomy and central neck dissection on 07/31/[address] Martinez at [facility]. Pathology showed mutifocal PTC with the largest [...] vomiting. Is going to be seen at [facility] for it. Gets SOB. Coughs when [...] pills. Diagnosed with gastroparesis, pending evaluation at [facility] for gastric stimulator. Post MARTIN sialadenitis S/p kenalog injection to bilateral parotid glands and placement of parotid duct stent bilaterally. Reports no symptoms. Follow up in 1 year. Caitlyn Rivera MD Summer Analystmaintenance instructor Department of Internal Medicine Division of Endocrinology, Diabetes and Metabolism [facility] documented in this encounter [facility] 06-27-2025 Instructions Stephanie Richards RN - 06/27/2025 2:20 PM EDT Labs today RTC in one year with Dr. Rivera documented in this encounter [facility] 06-27-2025 Procedure note Associated Ord er(s): CHG US SOFT TISSUE HEAD & NECK REAL TIME IMGE DOCM ULTRASOUND NOTE Images were taken through the central and lateral neck bilaterally. This reveals no residual tissue in the thyroid bed. RIGHT CENTRAL: No suspicious lesion. RIGHT LATERAL: No suspicious lesion LEFT CENTRAL: No suspicious lesions LEFT LATERAL: No suspicious nodes [facility] 06-27-2025 Procedure note Associated Ord er(s): CHG US SOFT TISSUE HEAD & NECK REAL TIME IMGE DOCM ULTRASOUND NOTE Images were taken through the central and lateral neck bilaterally. This reveals no residual tissue in the thyroid bed. RIGHT CENTRAL: No suspicious lesion. RIGHT LATERAL: No suspicious lesion LEFT CENTRAL: No suspicious lesions LEFT LATERAL: No suspicious nodes documented in this encounter [facility] 06-26-2025 Note HNO ID: [id number] Author: GEORGES HARDIN APRN.CNP Service: Anesthesiology Author Type: Nurse Practitioner Type: Progress Notes Filed: 06/26/2025 07:15 Note Text: ---- Summary: PreAnesthesia Review ---- SERVICE DATE: 06/26/2025 SERVICE TIME: 7:01 AM Surgeon: Roya Type of surgery: CYSTOSCOPY, RETROGRADE PYELOGRAM, LASER CYSTOURETHROSCOPY W/ URETEROSCOPY AND/OR PYELOSCOPY W/ LITHOTRIPSY HOLMIUM, INSERTION STENT DOUBLE J Patient scheduled for surgery on 06/29/2025 Surgery Location: [facility] HPI: Greta Andres is a 35 [...] 08/07/2013 Bipolar 1 disorder (HCC) 02/14/2018 Seeing [facility] Behavioral Medicine as of 01/2018 Bipolar 1 disorder ([facility]) Chronic fatigue disorder 03/19/2015 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 No surgical correction done. The father of the baby's brother born with a hole in his heart. Surgical correction was done. 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[facility]) Degenerative disc disease Disorders of sacrum 02/20/2013 Dysmenorrhea 04/11/2007 Exercise-induced asthma ([facility]) 03/22/2014 Fetus conceived on control 03/31/2012 [...] Lupus (systemic lupus erythematosus) ([facility]) Migraine without aura and without status migrainosus, not intractable 05/20/2017 Multiple thyroid nodules 07/26/2019 Neoplasm of uncertain behavior of skin of back Obesity, Class I, BMI 30-34.9 03/03/2023 Other and unspecified ovarian cyst Ovarian cyst Other joint derangement, not elsewhere classified, lower leg 08/20/2008 Papillary thyroid carcinoma ([facility]) 07/21/2019 PMH - PAST MEDICAL HISTORY [...] No Comment: 2-3 (more content not included)... [facility] 06-25-2025 Note Addended by: GRETA TEMPLETON on: 06/25/2025 05:16 PM Modules accepted: Orders [facility] 06-25-2025 Miscellaneous Notes Addended by: GRETA TEMPLETON on: 06/25/2025 05:16 PM Modules accepted: Orders Stop Tramadol sending Rx Humarock Greta Templeton DO Spoke to pt and she voiced her understanding, she did state if she remembers correctly she is fine with Humarock. Please call the patient to talk to her to discuss that there isn't really anything stronger than Tramadol unfortunately. Looking back through records even in ER they gave Toradol or Tramadol . Opiods like Oxycodone are less recommended as they can worsen her gastroparesis , but can you ask to see how she did with Humarock in the past and let me know Greta Templeton DO documented in this encounter [facility] 06-25-2025 Telephone encounter Note Stop Tramadol sending Rx Humarock Greta Templeton DO [facility] 06-25-2025 Telephone encounter Note Spoke to pt and she voiced her understanding, she did state if she remembers correctly she is fine with Humarock. [facility] 06-25-2025 Telephone encounter Note Please call the patient to talk to her to discuss that there isn't really anything stronger than Tramadol unfortunately. Looking back through records even in ER they gave Toradol or Tramadol . Opiods like Oxycodone are less recommended as they can worsen her gastroparesis , but can you ask to see how she did with Humarock in the past and let me know Greta Templeton DO [facility] 06-15-2025 Note HNO ID: [id number] Author: GRETA TEMPLETON DO Service: ? Author Type: Physician Type: Progress Notes Filed: 06/15/2025 14:15 Note Text: [facility] [place] ESTABLISHED PATIENT NOTE/HISTORY AND PHYSICAL PATIENT: Greta [...] ) HISTORY OF PRESENT ILLNESS: Recording using Admaxim software for draft documentation of the visit was discussed with the patient/authorized manufacturers representative; all questions welcomed and answered. Patient/authorized manufacturers representative agreed to proceed The patient was [...] (02/14/2018), Bipolar 1 disorder ([facility]), Chronic fatigue disorder (03/19/2015), Congenital heart defect (HCC) (03/31/2012), 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[facility]), Degenerative disc disease, Disorders of sacrum [...] has never used (more content not included)... [facility] 06-15-2025 History of Present illness Narrative Images from the original note were not included. [facility] [place] ESTABLISHED PATIENT NOTE/HISTORY AND PHYSICAL PATIENT: Greta [...] ) HISTORY OF PRESENT ILLNESS: Recording using Admaxim software for draft documentation of the visit was discussed with the patient/authorized manufacturers representative; all questions welcomed and answered. Patient/authorized manufacturers representative agreed to proceed The patient was [...] (08/07/2013), Bipolar 1 disorder ([facility]) (02/14/2018), Bipolar 1 disorder ([facility]), Chronic fatigue disorder (03/19/2015), Congenital heart defect ([facility]) (03/31/2012), 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[facility]), Degenerative disc disease, Disorders of sacrum (02/20/2013), Dysmenorrhea (04/11/2007), Exercise-induced asthma ([facility]) (03/22/2014), Fetus conceived on control (03/31/2012), Fibromyalgia, Gastroparesis (03/25/2024), GERD (gastroesophageal reflux disease) (03/22/2014), HALLUX VALGUS (01/23/2009), Hypertension, essential (07/06/2022), Irregular menstrual cycle (04/11/2007), Lactose intolerance (03/31/2012), Lumbago (07/27/2012), Lumbar degenerative disc disease (07/27/2012), Lumbar spinal stenosis (04/25/2024), Lupus (systemic lupus erythematosus) ([facility]), Migraine without aura and without status migrainosus, not intractable (05/20/2017), Multiple thyroid nodules (07/26/2019), Neoplasm of uncertain behavior of skin of back, Obesity, Class I, BMI 30-34.9 (03/03/2023), Other and unspecified ovarian cyst, Other joint derangement, not elsewhere classified, lower leg (08/20/2008), Papillary thyroid carcinoma ([facility]) (07/21/2019), PMH - PAST MEDICAL HISTORY OF, Post-surgical hypothyroidism (08/25/2019), Primary thyroid papillary carcinoma ([facility]) (07/21/2019), PTSD (post-traumatic stress disorder) (02/14/2018), [...] may be inappropriate. documented in this encounter [facility] 06-15-2025 History of Present illness Narrative [...] PATIENT PRESENTS WITH AN IMPLANTABLE OR ATTACHED PULL THROUGH HOOKER: No RADIOLOGY DEPARTMENT: CT; Exam(s) Completed: Flank Study PERIPHERAL IV DATA: Not applicable SIGNED BY: BIJU Mendez) June 15, 2025 12:46 PM documented in this encounter [facility] 06-15-2025 Note HNO ID: [id number] Author: GUY BOWMAN RT(R) Service: Radiology Author Type: General Foundry Worker Type: Progress Notes Filed: 06/15/2025 12:46 Note [...] PATIENT PRESENTS WITH AN IMPLANTABLE OR ATTACHED PULL THROUGH HOOKER: No RADIOLOGY DEPARTMENT: CT; Exam(s) Completed: Flank Study PERIPHERAL IV DATA: Not applicable SIGNED BY: RT Vanessa(Aniket) June 15, 2025 12:46 PM [facility] 06-15-2025 Note HNO ID: [id number] Author: YANCI NAVARRETE RN Service: ? Author Type: Registered Nurse Type: Procedures Filed: 06/15/2025 14:15 Note Text: Medication requested and received from pharmacy. Injection given IM in left deltoid sites. Pt jamaal well. Post injection instructions given. Educated on side effects and s/s of allergic reaction. No further c/o or concerns. Verbalized understanding. Yanci Navarrete RN [facility] 06-15-2025 Procedure note Medication requested and received from pharmacy. Injection given IM in left deltoid sites. Pt jamaal well. Post injection instructions given. Educated on side effects and s/s of allergic reaction. No further c/o or concerns. Verbalized understanding. Yanci Navarrete RN [facility] 06-15-2025 Procedure note Medication requested and received from pharmacy. Injection given IM in left deltoid sites. Pt jamaal well. Post injection instructions given. Educated on side effects and s/s of allergic reaction. No further c/o or concerns. Verbalized understanding. Yanci Navarrete RN documented in this encounter [facility] 06-12-2025 Telephone encounter Note I sent in the refill for 1 month. Please have her schedule with Carlie Baird APRN.CNP [facility] 06-12-2025 Miscellaneous Notes I sent in [...] 2025 8:28 AM documented in this encounter [facility] 06-11-2025 Telephone encounter Note Is that the soonest appointment for Carlie? It has already been over 3 months since the patient was seen. I am happy to provide a bridge prescription but this would be an additional month. Thank you Oscar Mcmillan PA-C [facility] Work Phone: 06-11-2025 Telephone encounter Note [...] Pierson MA June 11, 2025 8:[address] [facility] 06-07-2025 Telephone encounter Note Thank you. [facility] 06-07-2025 Miscellaneous Notes Thank you. Spoke with patient advised pharmacy unable to fill oral Toradol. She will continue Tylenol and Ibuprofen for pain management. Linnette Douglas MA Received call from [facility] pharmacy - they unable to fill oral Ketorolac 10 mg. Toradol oral has to be prescribed as a continuation of care from IM or IV. Call back to [facility] pharmacy - [phone] Linnette Douglas MA documented in this encounter [facility] 06-07-2025 Telephone encounter Note Spoke with patient advised pharmacy unable to fill oral Toradol. She will continue Tylenol and Ibuprofen for pain management. Linnette Douglas MA [facility] 06-07-2025 Telephone encounter Note Received call from [facility] pharmacy - they unable to fill oral Ketorolac 10 mg. Toradol oral has to be prescribed as a continuation of care from IM or IV. Call back to [facility] - [phone] Linnette Douglas MA [facility] 06-07-2025 Instructions Sarah Miramontes APRN.CNP - 06/07/2025 1:21 PM EDT Images from [...] your diet without supplements if you eat zjxuq-[id number] servings of calcium-rich food. Many foods and [...] [email or web address] [email or web address] documented in this encounter [facility] 06-07-2025 History of Present illness Narrative Images from the original note were not included. [facility] [place] [facility] UROL [place] EXCHANGE NEW PATIENT UROLOGY VISIT 06/07/2025 10:21 AM PATIENT NAME: Greta Andres DATE OF : 1990 TODAY'S DATE: 06/07/2025 Referring Provider: Nagi Red [address] [place] [id number] Referring Note Reviewed: Yes Chief Complaint: kidney stones, right flank pain History of Present Illness: Ms. Andres is a 35 year old female who presents to the office regarding kidney stones and right flank pain since February 2025. 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 No surgical correction done. The father of the baby's brother born with a hole in his heart. Surgical correction was done. 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[facility]) Degenerative disc disease Disorders of sacrum [...] , Taking? , Authorizing Provider Renard Almodovar APRN.METAL DRILL OPERATOR Medication magnesium glycinate 100 mg magnesium capsule, Sig Take 2 capsules by mouth two times a day., Start Date 11/02/24, End Date , Taking? , Authorizing Provider Renard Almodovar APRN.METAL DRILL OPERATOR Medication riboflavin, vitamin B2, 400 mg tab, Sig Take 1 tablet by mouth once daily., Start Date 11/02/24, End Date , Taking? , Authorizing Provider Renard Almodovar APRN.METAL DRILL OPERATOR Medication hydroCHLOROthiazide 25 mg tablet, Sig [...] End Date , Taking? , Authorizing Provider ProviderDaiaan Medication albuterol HFA (VENTOLIN HFA) 90 mcg/actuation [...] Date Value 04/24/2024 Negative 07/19/2017 neg Specific Tarpley, Ur (no units) Date Value 04/24/2024 1.021 [...] LUCACREA, LUCREACL, LWK, LUSUL in the last [id number] hours. Physical Exam Vitals and nursing note [...] possible surgery for kidney stones. Sarah Miramontes APRN.METAL DRILL OPERATOR Consultation requested by Nagi Red [address] [place] [address] for an opinion regarding Greta Andres patient and my final recommendations will be communicated back to the requesting physician by way of shared Medical record or letter via US mail. Recording using ambient Streem software for draft documentation of the visit was discussed with the patient/authorized manufacturers representative; all questions welcomed and answered. Patient/authorized manufacturers representative agreed to proceed documented in this encounter [facility] 06-07-2025 Note HNO ID: [id number] Author: SARAH MIRAMONTES APRN.MARGARITA Service: ? Author Type: Nurse Practitioner Type: Progress Notes Filed: 06/07/2025 14:10 Note Text: [facility] [place] [facility] [place] [facility] UROL [place] EXCHANGE NEW PATIENT UROLOGY VISIT 06/07/2025 10:21 AM PATIENT NAME: Greta Andres DATE OF : 1990 TODAY'S DATE: 06/07/2025 Referring Provider: Nagi Red [address] [place] [id number] Referring Note Reviewed: Yes Chief Complaint: kidney stones, right flank pain History of Present Illness: Ms. Andres is a 35 year old female who presents to the office regarding kidney stones and right flank pain since February 2025. She went to [facility] ER on 03/18/25 Found to have bilateral [...] 08/07/2013 Bipolar 1 disorder (HCC) 02/14/2018 Seeing [facility] Behavioral Medicine as of 01/2018 Bipolar [...] status migrainosus, n (more content not included)... [facility] 05-24-2025 Telephone encounter Note Appt has already been scheduled with [facility] on 06/07/25. Phil Millan MA [facility] 05-24-2025 Miscellaneous Notes Appt has already been scheduled with [facility] on 06/07/25. Phil Millan MA Please assist patient in scheduling an appt with Urology as consulted. Phil Millan MA Order placed for urology consult. documented in this encounter [facility] 05-24-2025 Telephone encounter Note Please assist patient in scheduling an appt with Urology as consulted. Phil Millan MA [facility] 05-23-2025 Telephone encounter Note Order placed for urology consult. [facility] 05-21-2025 History of Present illness Narrative [...] PATIENT PRESENTS WITH AN IMPLANTABLE OR ATTACHED PULL THROUGH HOOKER: No RADIOLOGY DEPARTMENT: Ultrasound PERIPHERAL IV DATA: Not applicable SIGNED BY: Mackenzie Heller RDMS May 21, 2025 10:18 AM documented in this encounter [facility] 05-21-2025 Note HNO ID: [id number] Author: MACKENZIE HELLER RDMS Service: ? Author Type: General Foundry Worker Type: Progress Notes Filed: 05/21/2025 10:18 Note [...] PATIENT PRESENTS WITH AN IMPLANTABLE OR ATTACHED PULL THROUGH HOOKER: No RADIOLOGY DEPARTMENT: Ultrasound PERIPHERAL IV DATA: Not applicable SIGNED BY: Mackenzie Heller RDMS May 21, 2025 10:[address] [facility] 05-18-2025 Telephone encounter Note Pt returned call and given provider's message below with verbalized understanding. Pt reports she has her inhalers and has been using them. Pt reports she is trying to schedule the testing and will call again today to see if she can schedule. 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 Pt uses [employer]. Ada Carson LPN Let patient know her insurance is refusing the CT. They require an US to be done first. This will most likely be non-diagnostic and then we can get the CT. US order placed and order for CT cancelled. documented in this encounter [facility] 05-18-2025 Telephone encounter Note Called and left a voicemail for the Patient to call back and ask for a nurse to receive the providers message. Darline Roldan, RN [facility] 05-17-2025 Telephone encounter Note My assumption [...] types of treatment will even be beneficial. 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 Pt was asking what provider would recommend she do for her breathing issues. Please call and advise. Darline Roldan, DEANDRE [facility] 05-17-2025 Telephone encounter Note Advise patient I want her to complete the breathing studies I ordered at her recent office visit. [facility] 05-17-2025 Telephone encounter Note Pt [...] via or can call pt. Pt uses [employer]. Ada Carson LPN [facility] 05-17-2025 Telephone encounter Note Let patient know her insurance is refusing the CT. They require an US to be done first. This will most likely be non-diagnostic and then we can get the CT. US order placed and order for CT cancelled. [facility] 05-17-2025 Telephone encounter Note Pt was called and scheduled for 05/24/25 with RR at 9:40 am. Phil Millan MA [facility] 05-17-2025 Telephone encounter Note Pt called and scheduled for 2 week BP check on 05/24/25 at 9:40 am with RR. Pt requested this day due to Daughter having appt at this location around this time. Phil Millan MA [facility] 05-17-2025 Miscellaneous Notes Pt called and scheduled for 2 week BP check on 05/24/25 at 9:40 am with RR. Pt requested this day due to Daughter having appt at this location around this time. Phil Millan MA Pt has been sent a [employer] message notifying her that she needs a BP follow up from 05/08/25 with [facility]. Will wait pt response via [employer]. Will keep this encounter open until appt is made. Watch [employer] message to make sure viewed by pt. [...] complete PE set up in jul. Jace Wallsi MA documented in this encounter [facility] 05-17-2025 Miscellaneous Notes Pt was called and scheduled for 05/24/25 with RR at 9:40 am. Phil Millan MA documented in this encounter [facility] 05-16-2025 Telephone encounter Note Pt has been sent a [employer] message notifying her that she needs a BP follow up from 05/08/25 with [facility]. Will wait pt response via [employer]. Will keep this encounter open until appt is made. Watch [employer] message to make sure viewed by pt. If not will call to schedule. Phil Millan MA [facility] 05-15-2025 Telephone encounter Note Yes needs a f/u BP check in 2 weeks and a complete PE scheduled in jul 2025. [facility] 05-15-2025 Note HNO ID: [id number] Author: PHIL MILLAN MA Service: ? Author Type: Adzing And Boring Machine Helper Type: Progress Notes Filed: 05/15/2025 09:32 Note Text: View External Imaging - MRCP Abdomen without contrast [ID [id number]] [facility] 05-15-2025 History of Present illness Narrative View External Imaging - MRCP Abdomen without contrast [ID [id number]] documented in this encounter [facility] 05-09-2025 Telephone encounter Note Note from [...] set up in jul. Jace Wallis MA [facility] 05-08-2025 Instructions Nagi Red MD - [...] a referral to the Gastroenterology department at [facility] to connect you with a specialist in gastroparesis. - Continue using the scopolamine patch as prescribed. If your symptoms worsen or you experience severe vomiting episodes, please seek medical attention. We discussed your shortness of breath and lung health: - I will order a methacholine challenge test to evaluate your airway sensitivity. This test will likely be performed at [facility]. During the test, you will inhale a [...] - Await the referral to Gastroenterology at [facility] for further evaluation of your gastroparesis. - Once the CT flank study results are available, we will decide on the need for a urology referral. Please contact our office if you have any questions or if your symptoms worsen. documented in this encounter [facility] 05-08-2025 History of Present illness Narrative [...] improvement to 34.7. She reports that her mica laminating machine feeder did not increase her medication dosage due [...] 08/07/2013 Bipolar 1 disorder (HCC) 02/14/2018 Seeing [facility] Behavioral Medicine as of 01/2018 Bipolar [...] hyperemesis syndrome. - Referred to Gastroenterology at [facility] for specialized management of gastroparesis. - Discussed [...] which included preparing to see the patient, [id number] patient care, completing clinical documentation, performing a medically appropriate examination, counseling and educating the patient/family/caregiver and ordering medications, tests, or procedures. Recording using [employer] software for draft documentation of the visit was discussed with the patient/authorized manufacturers representative; all questions welcomed and answered. Patient/authorized manufacturers representative agreed to proceed documented in this encounter [facility] 05-08-2025 Note HNO ID: [id number] Author: NAGI RED MD Service: ? Author [...] improvement to 34.7. 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 No surgical correction done. The father of the baby's brother born with a hole in his heart. Surgical correction was done. 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 [facility] 05-07-2025 Telephone encounter Note Patient has appointment for tomorrow. Jace Wallis MA [facility] 05-07-2025 Miscellaneous Notes Patient has appointment for tomorrow. Jace Wallis MA Pt active on [employer]. Sent message to pt asking for a [...] no plural effusion. documented in this encounter [facility] 05-07-2025 Note HNO ID: [id number] Author: NAGI RED MD Service: ? Author [...] visit. Either the patient or their legal manufacturers representative has been informed of the risks [...] 08/07/2013 Bipolar 1 disorder (HCC) 02/14/2018 Seeing [facility] Behavioral Medicine as of 01/2018 Bipolar [...] History FAMILY HISTORY (more content not included)... [facility] 05-07-2025 History of Present illness Narrative [...] visit. Either the patient or their legal manufacturers representative has been informed of the risks [...] 08/07/2013 Bipolar 1 disorder (HCC) 02/14/2018 Seeing [facility] Behavioral Medicine as of 01/2018 Bipolar [...] Sacroiliitis, not elsewhere classified ([facility]) 02/20/2013 SI (sacroiliac) joint dysfunction 11/06/2015 [...] and Plan Nagi Red MD Recording using [employer] software for draft documentation of the visit was discussed with the patient/authorized manufacturers representative; all questions welcomed and answered. Patient/authorized manufacturers representative agreed to proceed documented in this encounter [facility] 05-04-2025 Telephone encounter Note Patient calling with request for message from Dr Red's office Patient denies any new or worsening symptoms of which a provider is not aware: Yes. Message given and pt conf to [facility] for scheduling (see other telephone encounter) [facility] 05-04-2025 Miscellaneous Notes Patient calling with request for message from Dr Red's office Patient denies any new or worsening symptoms of which a provider is not aware: Yes. Message given and pt conf to [facility] for scheduling (see other telephone encounter) documented in this encounter [facility] 05-04-2025 Telephone encounter Note Pt active on [employer]. Sent message to pt asking for a call back regarding result/recommendation below from Provider. Will watch for message to be reviewed. Review all results below. Phil Millan MA [facility] 05-03-2025 Telephone encounter Note Called and left message on patients voicemail to return call to the office and ask to speak with a triage nurse. Phil Millan MA [facility] 05-03-2025 Telephone encounter Note Let patient [...] plural effusions she seen on her MRCP. [facility] 05-02-2025 Telephone encounter Note Let patient know the chest x-ray showed no plural effusion. [facility] 05-02-2025 History of Present illness Narrative [...] PATIENT PRESENTS WITH AN IMPLANTABLE OR ATTACHED PULL THROUGH HOOKER: No RADIOLOGY DEPARTMENT: General X-ray: Exam(s) Completed: Chest X-Ray PERIPHERAL IV DATA: Not applicable SIGNED BY: Gema Rudolph May 02, 2025 3:11 PM documented in this encounter [facility] 05-02-2025 Note HNO ID: [id number] Author: LIZZETH BENJAMIN Tech Service: ? Author [...] PATIENT PRESENTS WITH AN IMPLANTABLE OR ATTACHED PULL THROUGH HOOKER: No RADIOLOGY DEPARTMENT: General X-ray: Exam(s) Completed: Chest X-Ray PERIPHERAL IV DATA: Not applicable SIGNED BY: Gema Rudolph May 02, 2025 3:[address] [facility] 05-02-2025 Telephone encounter Note Patient notified and scheduled. She is coming in today to get xray and labs. Jace Wallis MA [facility] 05-02-2025 Miscellaneous Notes Patient notified and [...] we can pull the MRCP report off [facility] system? If not can we contact DR. [...] came back today. documented in this encounter [facility] 05-01-2025 Telephone encounter Note In the next 1-2 weeks. I placed an order for her to get a chest x-ray and thyroid las as soon as possible. I also need a copy of the last office note for Dr. Cole. [facility] 05-01-2025 Telephone encounter Note Spoke [...] to see the patient. Jace Wallis MA [facility] 04-30-2025 Telephone encounter Note Let patient know I was able to get the ERCP report and review them. Is she having shortness of breath and or leg edema? Does she know the last time her TSH was checked? [facility] 04-27-2025 Telephone encounter Note Printed and given to PCP. Jace Wallis MA [facility] 04-26-2025 Telephone encounter Note Can we see if we can pull the MRCP report off [facility] system? If not can we contact DR. Sheriff office and have them fx us a copy of it. [facility] 04-26-2025 Telephone encounter Note Patient calls and states that Dr. Sheriff's office had a MRCP test done. Patient reports that it came back as Bilateral Pleural Effusion. Patient states that Dr. Cole's office wants PCP to advise on this. Testing was done on Wednesday. Results came back today. [facility] 04-18-2025 Note HNO ID: [id number] Author: ADA CARSON LPN Service: ? Author Type: LICENSED NURSE Type: Progress Notes Filed: 04/18/2025 09:44 Note Text: Scan on 04/17/2025 10:15 PM by ProviderDami PA-C: Consultation - Emergency Medicine [facility] 04-18-2025 History of Present illness Narrative Scan on 04/17/2025 10:15 PM by ProviderDami PA-C: Consultation - Emergency Medicine documented in this encounter [facility] 04-17-2025 Telephone encounter Note Noted. [facility] 04-17-2025 Miscellaneous Notes Noted. Patient calling said she has been vomiting all night, advised to go back to Er for evaluation, need IV hydration. Patient said she needs to have the MRCP done, was told may have gall stone in the duct blocking things. Patient said she was going to go back to [facility] ER, cancelled her ER follow up appt scheduled for today with PCP. documented in this encounter [facility] 04-17-2025 Telephone encounter Note Patient calling said she has been vomiting all night, advised to go back to Er for evaluation, need IV hydration. Patient said she needs to have the MRCP done, was told may have gall stone in the duct blocking things. Patient said she was going to go back to [facility] ER, cancelled her ER follow up appt scheduled for today with PCP. [facility] 03-20-2025 Telephone encounter Note Contacted patient and she went to [facility] ER. She is scheduled to Urology Dr. Gonzáles. Patient also set up for ER follow up with Dr. Red. Jace Wallis MA [facility] 03-20-2025 Miscellaneous Notes Contacted patient and she went to [facility] ER. She is scheduled to Urology Dr. Gonzáles. Patient also set up for ER follow up with Dr. Red. Jace Wallis MA documented in this encounter [facility] 03-20-2025 Note HNO ID: [id number] Author: ADA CARSON LPN Service: ? Author Type: LICENSED NURSE Type: Progress Notes Filed: 03/20/2025 07:32 Note Text: Scan on 03/20/2025 7:19 AM by ProviderDami PA-C: Consultation - Emergency Medicine [facility] 03-20-2025 History of Present illness Narrative Scan on 03/20/2025 7:19 AM by Dami Barrera PA-C: Consultation - Emergency Medicine documented in this encounter [facility] 03-19-2025 Telephone encounter Note Called and spoke to the patient and relayed below. Patient verbalized understanding. [facility] 03-19-2025 Miscellaneous Notes Called and spoke to the patient and relayed below. Patient verbalized understanding. Hold the tramadol while taking the [place]. I am okay with this Patient receives Tramadol 50 mg tablet: take 1-2 pill PO every day for pain. Called and spoke with the patient and she states they prescribed her hydrocodone-acetaminophen 5-325 #8 pills. Routing to provider for review. Patient was seen at [facility] for kidney stones today. Patient was given an RX for pain medication and questions if she can garbage pick up man or if picking up a pain medication from a different doctor is in breach of her contact with Dr. Contreras. Call [phone]. Patient is requesting a return call as soon as possible, she is experiencing significant pain from stones. documented in this encounter [facility] 03-19-2025 Telephone encounter Note Hold the tramadol while taking the [place]. I am okay with this [facility] 03-19-2025 Telephone encounter Note Patient receives Tramadol 50 mg tablet: take 1-2 pill PO every day for pain. Called and spoke with the patient and she states they prescribed her hydrocodone-acetaminophen 5-325 #8 pills. Routing to provider for review. [facility] 03-19-2025 Telephone encounter Note Patient was seen at [facility] for kidney stones today. Patient was given an RX for pain medication and questions if she can garbage pick up man or if picking up a pain medication from a different doctor is in breach of her contact with Dr. Contreras. Call [phone]. Patient is requesting a return call as soon as possible, she is experiencing significant pain from stones. [facility] 03-02-2025 Telephone encounter Note Resent the rx [facility] 03-02-2025 Miscellaneous Notes Resent the rx [...] for current RX? Please advise jhoan call [facility] at [phone] with recommendations. Lisa Edmond documented in this encounter [facility] 03-02-2025 Note Addended by: CARLIE BROWNLEE on: 03/02/2025 09:59 AM Modules accepted: Orders [facility] 03-02-2025 Miscellaneous Notes Addended by: CARLIE BROWNLEE on: 03/02/2025 09:59 AM Modules accepted: Orders documented in this encounter [facility] 03-02-2025 Telephone encounter Note Pharmacist called [...] for current RX? Please advise jhoan call [facility] at [phone] with recommendations. Lisa Edmond [facility] 03-02-2025 Note HNO ID: [id number] Author: CARLIE BROWNLEE APRN.MARGARITA Service: ? Author Type: Nurse Practitioner Type: Progress Notes Filed: 03/02/2025 09:34 Note Text: Elida Andres presents to [facility] for a follow up [...] on March 08 (more content not included)... [facility] 03-02-2025 History of Present illness Narrative Images from the original note were not included. Subjective Greta Andres presents to [facility] for a follow up [...] which included preparing to see the patient, [id number] patient care, completing clinical documentation, performing a [...] verbalized understanding. Carlie Brownlee APRN, MARGARITA March 02, 2025 documented in this encounter [facility] 02-19-2025 Telephone encounter Note Advised patient via telephone that her upcoming appointment with Dr. Contreras does not need to be postponed, as this appointment is for a new problem (cervical/thoracic rather than lumbar). Patient verbalized understanding and voiced no additional questions/concerns. Patient to see Dr. Contreras as scheduled. [facility] 02-19-2025 Miscellaneous Notes Advised patient via [...] completes physical therapy. Please call patient at [phone]. documented in this encounter [facility] 02-19-2025 Telephone encounter Note Patient left message on nurse VM 02/19/25 at 11:37 asking if she should postpone her appointment with Dr. Contreras on 02/26/25 until after she completes physical therapy. Please call patient at [phone]. [facility] 02-16-2025 Note HNO ID: [id number] Author: JACE WALLIS MA Service: ? Author Type: Adzing And Boring Machine Helper Type: Progress Notes Filed: 02/16/2025 16:03 Note Text: Scan on 02/12/2025 9:28 PM by ProviderDami PA-C: GI - gastric emptying study Jace Wallis MA [facility] 02-16-2025 History of Present illness Narrative Scan on 02/12/2025 9:28 PM by ProviderDami PA-C: GI - gastric emptying study Jace Wallis MA documented in this encounter [facility] 02-08-2025 Note Addended by: Kate GODWIN on: 02/08/2025 03:08 PM Modules accepted: Orders [facility] 02-08-2025 Miscellaneous Notes Addended by: NAOMI [...] did not include these notes. DONA: 12/14/2024 sammie/Carlie Brownlee CNP PLAN: The following approved medication requests have been transmitted electronically: Ultram Follow up in the office in 3 months Lumbar MRI order placed 05/16/2024. PT: Not completed [employer] message sent. PT order pended for provider review. Routing to provider. documented in this encounter [facility] 02-08-2025 Telephone encounter Note Procedure: Lumbar [...] pended for provider review. Routing to provider. [facility] 02-07-2025 Note HNO ID: [id number] Author: JACE WALLIS MA Service: ? Author Type: Adzing And Boring Machine Helper Type: Progress Notes Filed: 02/07/2025 17:19 Note Text: Scan on 02/02/2025 1:13 PM by Provider External PA-C: Miscellaneous Lab Scan on 02/02/2025 2:41 PM by Provider External, PA-C: Miscellaneous Lab Scan on 02/03/2025 7:48 PM by ProviderDami, PA-C: Miscellaneous Lab Scan on 02/05/2025 5:37 PM by Provider External, PA-C: Miscellaneous Lab Scan on 02/06/2025 8:10 AM by ProviderDami PA-C: Miscellaneous Lab Jace Wallis MA [facility] 02-07-2025 History of Present illness Narrative Scan on 02/02/2025 1:13 PM by ProviderDami PA-C: Miscellaneous Lab Scan on 02/02/2025 2:41 PM by Provider External, PA-C: Miscellaneous Lab Scan on 02/03/2025 7:48 PM by ProviderDami, PA-C: Miscellaneous Lab Scan on 02/05/2025 5:37 PM by ProviderDami PA-C: Miscellaneous Lab Scan on 02/06/2025 8:10 AM by Dami Barrera PA-C: Miscellaneous Lab Jace Wallis MA documented in this encounter [facility] 01-29-2025 Note HNO ID: [id number] Author: ADA CARSON LPN Service: ? Author Type: LICENSED NURSE Type: Progress Notes Filed: 01/29/2025 07:21 Note Text: Scan on 01/26/2025 2:38 PM by ProviderDami PA-C: Hematology Scan on 01/26/2025 6:12 PM by ProviderDami PA-C: Chemistry [facility] 01-29-2025 History of Present illness Narrative Scan on 01/26/2025 2:38 PM by ProviderDami PA-C: Hematology Scan on 01/26/2025 6:12 PM by ProviderDami PA-C: Chemistry documented in this encounter [facility] 01-05-2025 Note HNO ID: [id number] Author: TOMAS ALEXIS APRN.METAL DRILL OPERATOR Service: ? Author Type: Nurse Practitioner Type: Progress Notes Filed: 01/05/2025 08:42 Note Text: This note was created using Appistryriter. Subjective Greta Andres is a 34 year [...] to start antibiotics. She will otherwise use knda-gar-fvmzwzm treatments as necessary for symptomatic relief. - AMOXICILLIN 875 MG-POTASSIUM CLAVULANATE 125 MG TABLET Tomas Tj, COMPENSATION SUPERVISOR.METAL DRILL OPERATOR [facility] 01-05-2025 History of Present illness Narrative This note was created using Gendel. Subjective Greta Andres is a 34 year [...] to start antibiotics. She will otherwise use tluj-djm-lqewunu treatments as necessary for symptomatic relief. - AMOXICILLIN 875 MG-POTASSIUM CLAVULANATE 125 MG TABLET Tomas Moomaw, COMPENSATION SUPERVISOR.METAL DRILL OPERATOR documented in this encounter [facility] 12-15-2024 Note HNO ID: [id number] Author: RENARD ALMODOVAR APRN.CNP Service: ? Author [...] 08/07/2013 Bipolar 1 disorder (HCC) 02/14/2018 Seeing [facility] Behavioral Medicine as of 01/2018 Bipolar [...] Primary thyroid papillary carcinoma ([facility]) 07/21/2019 PTSD (post-traumatic stress disorder) 02/14/2018 PTSD (post-traumatic stress disorder) S/P total thyroidectomy 07/31/2019 Sacroiliitis, not elsewhere classified ([facility]) 02/20/2013 SI (sacroiliac) joint dysfunction 11/06/2015 [...] diaphoretic, dizzy Curr (more content not included)... [facility] 12-15-2024 History of Present illness Narrative [...] 08/07/2013 Bipolar 1 disorder (HCC) 02/14/2018 Seeing [facility] Behavioral Medicine as of 01/2018 Bipolar [...] 08/20/2008 Papillary thyroid carcinoma ([facility]) 07/21/2019 PMH - PAST MEDICAL HISTORY OF r thumb broken Post-surgical hypothyroidism 08/25/2019 Primary thyroid papillary carcinoma ([facility]) 07/21/2019 PTSD (post-traumatic stress disorder) 02/14/2018 PTSD (post-traumatic stress disorder) S/P total thyroidectomy 07/31/2019 Sacroiliitis, not elsewhere classified ([facility]) 02/20/2013 SI (sacroiliac) joint dysfunction 11/06/2015 [...] capsules by mouth two times a day. Dpbwf-6-OSW-EPA-Fish Oil (FISH OIL) 1,000 (120-180) mg cap [...] Cancer Screening due on 05/06/2020 Covid-19 Vaccine() due on 09/21/2025 DTaP,Tdap,Td Vaccine(7 - Td [...] - SUMATRIPTAN 50 MG TABLET Renard Almodovar APRN.METAL DRILL OPERATOR documented in this encounter [facility] 12-14-2024 History of Present illness Narrative VIRTUAL VISIT PROGRESS NOTE This is a virtual visit using Here On Biz Zoom Video Visit. It required patient-provider interaction for the medical decision making as documented below. I have communicated my name and active licensure. The patient's identity and physical location were verified at the time of this visit. Either the patient or their legal manufacturers representative has been informed of the risks [...] 08/07/2013 Bipolar 1 disorder (HCC) 02/14/2018 Seeing [facility] Behavioral Medicine as of 01/2018 Bipolar [...] capsules by mouth two times a day. Lesws-1-VOD-EPA-Fish Oil (FISH OIL) 1,000 (120-180) mg cap [...] which included preparing to see the patient, yuic-gy-jqch patient care, completing clinical documentation, and ordering medications, tests, or procedures Carlie Brownlee APRN.MARGARITA documented in this encounter [facility] 12-14-2024 Note HNO ID: [id number] Author: CARLIE BROWNLEE APRN.CNP Service: ? Author Type: Nurse Practitioner Type: Progress Notes Filed: 12/14/2024 18:02 Note Text: VIRTUAL VISIT PROGRESS NOTE This is a virtual visit using Here On Biz Zoom Video Visit. It required patient-provider interaction for the medical decision making as documented below. I have communicated my name and active licensure. The patient's identity and physical location were verified at the time of this visit. Either the patient or their legal manufacturers representative has been informed of the risks [...] 08/07/2013 Bipolar 1 disorder (HCC) 02/14/2018 Seeing [facility] Behavioral Medicine as of 01/2018 Bipolar [...] Lupus (systemic lupus erythematosus) ([facility]) Migraine without aura and without status migrainosus, not intractable 05/20/2017 Multiple thyroid nodules 07/26/2019 Neoplasm of uncertain behavior of skin of back Obesity, Class I, BMI 30-34.9 03/03/2023 Other and unspecified ovarian cyst Ovarian cyst Other joint derangement, not elsewhere classified, lower leg 08/20/2008 Papillary thyroid carcinoma ([facility]) 07/21/2019 PMH - PAST MEDICAL HISTORY OF r thumb broken Post-surgical hypothyroidism 08/25/2019 Primary thyroid papillary carcinoma ([facility]) 07/21/2019 PTSD (post-traumatic stress disorder) 02/14/2018 PTSD (post-traumatic stress disorder) S/P total thyroidectomy 07/31/2019 Sacroiliitis, not elsewhere classified ([facility]) 02/20/2013 SI (sacroiliac) joint dysfunction 11/06/2015 [...] No Current Outpatien (more content not included)... 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 Stephanie Dai RN 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 Stephanie Dai RN Please see pt message and advise. Phil Millan MA documented in this encounter [facility] 11-02-2024 Telephone encounter Note Please see pt message and advise. Phil Millan MA [facility] 11-02-2024 Note HNO ID: [id number] Author: RENARD ALMODOVAR APRN.METAL DRILL OPERATOR Service: ? Author Type: Nurse Practitioner [...] 08/07/2013 Bipolar 1 disorder (HCC) 02/14/2018 Seeing [facility] Behavioral Medicine as of 01/2018 Bipolar [...] Sacroiliitis, not elsewhere classified ([facility]) 02/20/2013 SI (sacroiliac) joint dysfunction 11/06/2015 [...] 50 mg t (more content not included)... [facility] 11-02-2024 History of Present illness Narrative [...] 08/07/2013 Bipolar 1 disorder (HCC) 02/14/2018 Seeing [facility] Behavioral Medicine as of 01/2018 Bipolar [...] Sacroiliitis, not elsewhere classified ([facility]) 02/20/2013 SI (sacroiliac) joint dysfunction 11/06/2015 [...] 100 MG ( GLYCINATE) CAPSULE - OMEGA 0-UHQ-SAT-FISH OIL 1,000 MG (120 MG-180 MG) CAPSULE - RIBOFLAVIN (VITAMIN B2) 400 MG TABLET Renard Almodovar APRN.METAL DRILL OPERATOR documented in this encounter [facility] 10-27-2024 Telephone encounter Note Pt notified of results and instructions. Pt verbalizes understanding. Pt confirms she still sees Dr Rivera. Copy of lab results faxed to his office at [phone]. Ada Carson LPN [facility] 10-27-2024 Miscellaneous Notes Pt notified of results and instructions. Pt verbalizes understanding. Pt confirms she still sees Dr Rivera. Copy of lab results faxed to his office at [phone]. Ada Carson LPN Let patient know that her TSH is 89. 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 We can fax the labs to them. Please confirm that she still see Dr. Caitlyn Rivera at [facility]. Her one inflammatory marker is elevated but otherwise labs are normal. Christine Dean PA-C documented in this encounter [facility] 10-27-2024 Telephone encounter Note Let patient know that her TSH is 89. 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 We can fax the labs to them. Please confirm that she still see Dr. Caitlyn Rivera at [facility]. Her one inflammatory marker is elevated but otherwise labs are normal. Christine Dean PA-C [facility] 10-26-2024 Note HNO ID: [id number] Author: CHRISTINE DEAN PA-C Service: ? Author Type: Physician Motorcycle Delivery Driver Type: Progress Notes Filed: 10/26/2024 08:20 Note Text: Chief Complaint Patient presents with: ER F/U: migraines HPI Greta Andres is a 34 year old female who presents here today for Above Complaints.. Patient reports migraines for the past 2 weeks. Has been all day. Very little improvement with treatments. Was seen in [facility], and the ER. Toradol injection at [facility] did give temporary relief. Otherwise nothing [...] do her job. 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 With head movement, kneeling to standing, etc, [...] 08/07/2013 Bipolar 1 disorder (HCC) 02/14/2018 Seeing [facility] Behavioral Medicine as of 01/2018 Bipolar [...] Lupus (systemic lupus erythematosus) ([facility]) Migraine without aura and without status [...] Problem Relation Ag (more content not included)... [facility] 10-26-2024 History of Present illness Narrative Chief Complaint Patient presents with: ER F/U: migraines HPI Greta Andres is a 34 year old female who presents here today for Above Complaints.. Patient reports migraines for the past 2 weeks. Has been all day. Very little improvement with treatments. Was seen in [facility], [facility], and the ER. Toradol injection at [facility] did give temporary relief. Otherwise nothing [...] do her job. 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 With head movement, kneeling to standing, etc, [...] 08/07/2013 Bipolar 1 disorder (HCC) 02/14/2018 Seeing [facility] Behavioral Medicine as of 01/2018 Bipolar 1 disorder ([facility]) Chronic fatigue disorder 03/19/2015 Congenital heart [...] Lupus (systemic lupus erythematosus) ([facility]) Migraine without aura and without status [...] Cancer Screening due on 05/06/2020 Covid-19 Vaccine() due on 09/21/2025 DTaP,Tdap,Td Vaccine(7 - Td [...] Christine Dean PA-C documented in this encounter [facility] 10-24-2024 Note HNO ID: [id number] Author: JACE WALLIS MA Service: ? Author Type: Adzing And Boring Machine Helper Type: Progress Notes Filed: 10/24/2024 16:00 Note Text: Scan on 10/21/2024 2:21 PM by ProviderDami PA-C: Consultation - Emergency Medicine Jace Wallis MA Patient is scheduled to discuss Migraines. Jace Wallis MA [facility] 10-24-2024 History of Present illness Narrative Scan on 10/21/2024 2:21 PM by ProviderDami PA-C: Consultation - Emergency Medicine Jace Wallis MA Patient is scheduled to discuss Migraines. Jace Wallis MA documented in this encounter [facility] 10-24-2024 Telephone encounter Note Called and [...] and will discuss with Christine as well. [facility] 10-24-2024 Miscellaneous Notes Called and spoke [...] fill out FMLA for minor illnesses and [facility] HR should know this. It's intended for [...] Pt calling in as she works at [facility] and had to call off of work last week due to a bad migraine and viral gastroenteritis. Pt started with the headache on Wednesday the and came in to [facility] on Wed the [...] how to proceed. documented in this encounter [facility] 10-23-2024 Telephone encounter Note Let patient know we do not fill out FMLA for minor illnesses and [facility] HR should know this. It's intended for [...] lesson the frequency with a daily med. [facility] 10-23-2024 Telephone encounter Note Pt calling in as she works at [facility] and had to call off of work last week due to a bad migraine and viral gastroenteritis. Pt started with the headache on Wednesday the and came in to [facility] on Wed evening the . Received Toradol and was prescribed Prednisone. She states she went to work on Wednesday but they sent her to the [facility] clinic to be tested for COVID since [...] to let her know how to proceed. [facility] 10-18-2024 Instructions Bobby Paiz, KIMBERLEY.MARGARITA - [...] Discussed expected course of illness Bobby Paiz APRN.METAL DRILL OPERATOR documented in this encounter [facility] 10-18-2024 Note HNO ID: [id number] Author: BOBBY PAIZ APRN.METAL DRILL OPERATOR Service: ? Author Type: Nurse Practitioner [...] 08/07/2013 Bipolar 1 disorder (HCC) 02/14/2018 Seeing [facility] Behavioral Medicine as of 01/2018 Bipolar [...] 08/20/2008 Papillary thyroid carcinoma ([facility]) 07/21/2019 PMH - PAST MEDICAL HISTORY OF r thumb broken Post-surgical hypothyroidism 08/25/2019 Primary thyroid papillary carcinoma (HCC) 07/21/2019 PTSD (post-traumatic stress disorder) 02/14/2018 PTSD (post-traumatic stress disorder) S/P total thyroidectomy 07/31/2019 Sacroiliitis, not elsewhere classified ([facility]) 02/20/2013 SI (sacroiliac) joint dysfunction 11/06/2015 [...] tablet by mouth (more content not included)... [facility] 10-18-2024 History of Present illness Narrative [...] 08/07/2013 Bipolar 1 disorder (HCC) 02/14/2018 Seeing [facility] Behavioral Medicine as of 01/2018 Bipolar 1 disorder ([facility]) Chronic fatigue disorder 03/19/2015 Congenital heart [...] Lupus (systemic lupus erythematosus) ([facility]) Migraine without aura and without status [...] Discussed expected course of illness Bobby Paiz APRN.METAL DRILL OPERATOR documented in this encounter [facility] 10-17-2024 Telephone encounter Note In order to get an off work note we have to see the patient to have documentation in the chart she was seen and advised to stay home. If not with Caesar King I know Lisa Martinez has a lot of openings. [facility] 10-17-2024 Miscellaneous Notes In order to [...] Jace Wallis MA documented in this encounter [facility] 10-17-[address] Daniella patient has history of migraines. Do you still want patient to come in for a visit? Jace Wallis MA [facility] 10-01-2024 Telephone encounter Note Pt was notified of the results. Pt verbalized understanding. Krishna Villanueva MA [facility] 10-01-2024 Miscellaneous Notes Pt was notified of the results. Pt verbalized understanding. Krishna Villanueva MA Please inform patient that her urine culture was negative. May discontinue antibiotics. Follow-up with PCP or urology if symptoms persist. Recommended repeat urinalysis due to blood Nagi Ku APRN.CNP documented in this encounter [facility] 10-01-2024 Telephone encounter Note Please inform patient that her urine culture was negative. May discontinue antibiotics. Follow-up with PCP or urology if symptoms persist. Recommended repeat urinalysis due to blood Nagi Ku APRN.CNP [facility] Work Phone: 09-29-2024 Note HNO ID: [id number] Author: KAREN JONES APRN.MARGARITA Service: ? Author Type: Nurse Practitioner Type: Progress Notes Filed: 09/29/2024 16:53 Note Text: This note was created using Appistryriter. Elida Andres is a 34 year old female. 34 year old female with PMH HTN, asthma, migraine and chronic fatigue presents for complaitns. Acute onset one week ago +urgency +dysuria + back pain +blood noted in urine Denies N/V/D (althougth states she recently was with stomach bug) Denies cough Denies SOB or dyspnea Denies abdominal pain Seen September 01 for similar @ [facility] Diagnosed with UTI. Placed on Keflex, completed. CT scan revealed renal calculi [place] better after completing ATB Denies following up She works at [employer] The history is provided by the patient. No speech and language clinician was used. Hematuria This is a new [...] 08/07/2013 Bipolar 1 disorder (HCC) 02/14/2018 Seeing [facility] Behavioral Medicine as of 01/2018 Bipolar [...] Lupus (systemic lupus erythematosus) ([facility]) Migraine without aura and without status migrainosus, not intractable 05/20/2017 Multiple thyroid nodules 07/26/2019 Neoplasm of uncertain behavior of skin of back Obesity, Class I, BMI 30-34.9 03/03/2023 Other and unspecified ovarian cyst Ovarian cyst Other joint derangement, not elsewhere classified, lower leg 08/20/2008 Papillary thyroid carcinoma ([facility]) 07/21/2019 PMH - PAST MEDICAL HISTORY OF r thumb broken Post-surgical hypothyroidism 08/25/2019 Primary thyroid papillary carcinoma ([facility]) 07/21/2019 PTSD (post-traumatic stress disorder) 02/14/2018 PTSD (post-traumatic stress disorder) S/P total thyroidectomy 07/31/2019 Sacroiliitis, not elsewhere classified ([facility]) 02/20/2013 SI (sacroiliac) joint dysfunction 11/06/2015 [...] SPX Right COLONOSC (more content not included)... [facility] 09-29-2024 History of Present illness Narrative This note was created using NoteWriter. Subjective [...] pain Seen September 01 for similar @ [facility] Diagnosed with UTI. Placed on Keflex, completed. CT scan revealed renal calculi [place] better after completing ATB Denies following up She works at [employer] The history is provided by the patient. No speech and language clinician was used. Hematuria This is a new [...] 08/07/2013 Bipolar 1 disorder (HCC) 02/14/2018 Seeing [facility] Behavioral Medicine as of 01/2018 Bipolar [...] Lupus (systemic lupus erythematosus) ([facility]) Migraine without aura and without status migrainosus, not intractable 05/20/2017 Multiple thyroid nodules 07/26/2019 Neoplasm of uncertain behavior of skin of back Obesity, Class I, BMI 30-34.9 03/03/2023 Other and unspecified ovarian cyst Ovarian cyst Other joint derangement, not elsewhere classified, lower leg 08/20/2008 Papillary thyroid carcinoma ([facility]) 07/21/2019 PMH - PAST MEDICAL HISTORY OF r thumb broken Post-surgical hypothyroidism 08/25/2019 Primary thyroid papillary carcinoma ([facility]) 07/21/2019 PTSD (post-traumatic stress disorder) 02/14/2018 PTSD (post-traumatic stress disorder) S/P total thyroidectomy 07/31/2019 Sacroiliitis, not elsewhere classified ([facility]) 02/20/2013 SI (sacroiliac) joint dysfunction 11/06/2015 [...] URINE (POC) - URINE CULTURE Karen Jones APRN.CNP documented in this encounter [facility] 09-26-2024 Telephone encounter Note Order form completed by Carlie Brownlee CNP: Multi Action 2 Formula: Baclofen 5%, Cyclobenzaprine HCI 2%, Diclofenac 3%, Gabapentin 10%, Lidocaine HCl 5% Topical Cream Sig: Apply 1-2 grams every 6-8 hours as needed for pain. Refills: 6 Compound Quantity: 180 gm Order form has been faxed to [facility] [employer] [facility] at [phone] with confirmation received. [facility] 09-26-2024 Miscellaneous Notes Order form completed by Carlie Brownlee, METAL DRILL OPERATOR: Multi Action 2 Formula: Baclofen 5%, Cyclobenzaprine HCI 2%, Diclofenac 3%, Gabapentin 10%, Lidocaine HCl 5% Topical Cream Sig: Apply 1-2 grams every 6-8 hours as needed for pain. Refills: 6 Compound Quantity: 180 gm Order form has been faxed to [facility] at [phone] with confirmation received. documented in this encounter [facility] 09-21-2024 History of Present illness Narrative VIRTUAL VISIT PROGRESS NOTE This is a virtual visit using [employer] Video Visit. It required patient-provider interaction for the medical decision making as documented below. I have communicated my name and active licensure. The patient's identity and physical location were verified at the time of this visit. Either the patient or their legal manufacturers representative has been informed of the risks [...] 08/07/2013 Bipolar 1 disorder (HCC) 02/14/2018 Seeing [facility] Behavioral Medicine as of 01/2018 Bipolar [...] Lupus (systemic lupus erythematosus) ([facility]) Migraine without aura and without status migrainosus, not intractable 05/20/2017 Multiple thyroid nodules 07/26/2019 Neoplasm of uncertain behavior of skin of back Obesity, Class I, BMI 30-34.9 03/03/2023 Other and unspecified ovarian cyst Ovarian cyst Other joint derangement, not elsewhere classified, lower leg 08/20/2008 Papillary thyroid carcinoma ([facility]) 07/21/2019 PMH - PAST MEDICAL HISTORY OF r thumb broken Post-surgical hypothyroidism 08/25/2019 Primary thyroid papillary carcinoma ([facility]) 07/21/2019 PTSD (post-traumatic stress disorder) 02/14/2018 PTSD (post-traumatic stress disorder) S/P total thyroidectomy 07/31/2019 Sacroiliitis, not elsewhere classified ([facility]) 02/20/2013 SI (sacroiliac) joint dysfunction 11/06/2015 [...] Vomiting, persistent, in adult 03/03/[address] Friend PAST SURGICAL HISTORY Procedure Laterality Date ARTHROSCOPY [...] which included preparing to see the patient, [id number] patient care, completing clinical documentation, performing a medically appropriate examination, and ordering medications, tests, or procedures Carlie Brownlee APRN.METAL DRILL OPERATOR documented in this encounter [facility] 09-21-2024 History of Present illness Narrative [...] 08/07/2013 Bipolar 1 disorder (HCC) 02/14/2018 Seeing [facility] Behavioral Medicine as of 01/2018 Bipolar [...] Screening due on 05/06/2020 Covid-19 Vaccine(2023- season) Never done DTaP,Tdap,Td Vaccine(7 - Td [...] completed and returned to patient. Renard Almodovar APRN.METAL DRILL OPERATOR documented in this encounter [facility] 09-15-2024 History of Present illness Narrative This note was created using Gendel. Elida Andres is a 34 year old [...] 08/07/2013 Bipolar 1 disorder (HCC) 02/14/2018 Seeing [facility] Behavioral Medicine as of 01/2018 Bipolar 1 disorder ([facility]) Chronic fatigue disorder 03/19/2015 Congenital heart [...] Lupus (systemic lupus erythematosus) ([facility]) Migraine without aura and without status [...] COLONOSCOPY 12/16/2021 CORRECT BUNION,SIMPLE Right 01/29/2009 Right enena bunionectomy with ORIF and right tendo-achilles lengthening [...] Tori Michael PA-C documented in this encounter [facility] 09-04-2024 History of Present illness Narrative Scan on 09/01/2024 12:48 PM by ProviderDami PA-C: Consultation - Emergency Medicine documented in this encounter [facility] 08-22-2024 History of Present illness Narrative Scan on 08/21/2024 4:08 PM by ProviderDami PA-C: Miscellaneous Lab documented in this encounter [facility] 06-30-2024 History of Present illness Narrative Patient presents for suture removal per Dr Red. Pt denies any pain, redness, swelling, or drainage from site. Removed 5 sutures from upper left back. Incision well approximated and healing; no redness, swelling, or drainage noted. Tolerated procedure well. Nata Morse LPN documented in this encounter [facility] 06-21-2024 Telephone encounter Note Patient notified and voiced understanding. Jace Wallis MA [facility] 06-21-2024 Miscellaneous Notes Patient notified and voiced understanding. Jace Wallis MA Let patient know skin biopsy was benign. documented in this encounter [facility] 06-20-2024 Telephone encounter Note Let patient know skin biopsy was benign. [facility] 06-19-2024 Procedure note Procedure(s): SKIN BIOPSY [...] cm x 1.0 cm Nagi Red MD [facility] 06-19-2024 Procedure note Procedure(s): SKIN BIOPSY [...] Nagi Red MD documented in this encounter [facility] 06-19-2024 History of Present illness Narrative [...] 08/07/2013 Bipolar 1 disorder (HCC) 02/14/2018 Seeing [facility] Behavioral Medicine as of 01/2018 Bipolar [...] Lupus (systemic lupus erythematosus) ([facility]) Migraine without aura and without status migrainosus, not intractable 05/20/2017 Multiple thyroid nodules 07/26/2019 Obesity, Class I, BMI 30-34.9 03/03/2023 Other and unspecified ovarian cyst Ovarian cyst Other joint derangement, not elsewhere classified, lower leg 08/20/2008 Papillary thyroid carcinoma ([facility]) 07/21/2019 PMH - PAST MEDICAL HISTORY OF r thumb broken Post-surgical hypothyroidism 08/25/2019 Primary thyroid papillary carcinoma ([facility]) 07/21/2019 PTSD (post-traumatic stress disorder) 02/14/2018 PTSD (post-traumatic stress disorder) S/P total thyroidectomy 07/31/2019 Sacroiliitis, not elsewhere classified ([facility]) 02/20/2013 SI (sacroiliac) joint dysfunction 11/06/2015 [...] Screening due on 05/06/2020 Covid-19 Vaccine( - 2022- season) Never done Influenza Vaccine(1) [...] Nagi Red MD documented in this encounter [facility] 06-18-2024 History of Present illness Narrative VIRTUAL VISIT PROGRESS NOTE This is a virtual visit using [employer] Video Visit. It required patient-provider interaction for the medical decision making as documented below. I have communicated my name and active licensure. The patient's identity and physical location were verified at the time of this visit. Either the patient or their legal manufacturers representative has been informed of the risks [...] 08/07/2013 Bipolar 1 disorder (HCC) 02/14/2018 Seeing [facility] Behavioral Medicine as of 01/2018 Bipolar [...] which included preparing to see the patient, vseh-zn-vwev patient care, completing clinical documentation, and ordering medications, tests, or procedures Carlie Brownlee APRN.METAL DRILL OPERATOR documented in this encounter [facility] 05-23-2024 Telephone encounter Note Patient rescheduled 06/19/2024 at 1:20 pm with check in time of 1:05 pm Sent my chart message. Jace Wallis MA [facility] 05-23-2024 Miscellaneous Notes Patient rescheduled 06/19/2024 [...] Dede Lundy LPN documented in this encounter [facility] 05-23-2024 Telephone encounter Note Pt called to let you know she is running a fever and has sore throat. She is cancelling for today and. She will not be available till after 06-12-24. Okay to schedule her after 06-12-24 and call her with date and time. Dede Lundy LPN [facility] 05-16-2024 Telephone encounter Note Mri order signed off [facility] 05-16-2024 Miscellaneous Notes Mri order signed [...] provider for review. documented in this encounter [facility] 05-15-2024 Telephone encounter Note DONA: 03/16/2024 w/Carlie Brownlee CNP PLAN: Continue medication management through the [facility] The following approved medication requests have been transmitted electronically: Ultram Interventional procedure options discussed. Ordered and scheduled repeat right SI RFA F/U in 3 months May be virtual for refills Imagin03/27/2023: Lumbar XRAY MRI: Not noted Routing to provider for review. [facility] 05-12-2024 Telephone encounter Note Reason for Call: Pt calling for results of ultrasound done on left leg today due to pain. Pt states she was told not to use heat or massage until results are back. Is using ibuprofen for pain. Outcome: Will forward message to provider and advised caller to call office tomorrow morning for f/u. [facility] 05-12-2024 Miscellaneous Notes Reason for Call: Pt calling for results of ultrasound done on left leg today due to pain. Pt states she was told not to use heat or massage until results are back. Is using ibuprofen for pain. Outcome: Will forward message to provider and advised caller to call office tomorrow morning for f/u. documented in this encounter [facility] 05-12-2024 History of Present illness Narrative [...] PATIENT PRESENTS WITH AN IMPLANTABLE OR ATTACHED PULL THROUGH HOOKER: No RADIOLOGY DEPARTMENT: Ultrasound PERIPHERAL IV DATA: Not applicable SIGNED BY: TECHNOLOGIST Sb May 12, 2024 3:51 PM documented in this encounter [facility] 05-12-2024 History of Present illness Narrative [...] 08/07/2013 Bipolar 1 disorder (HCC) 02/14/2018 Seeing [facility] Behavioral Medicine as of 01/2018 Bipolar 1 disorder ([facility]) Chronic fatigue disorder 03/19/2015 Congenital heart [...] Lupus (systemic lupus erythematosus) ([facility]) Migraine without aura and without status [...] to ER with red flag symptoms Sakshi Podlogedyta, COMPENSATION SUPERVISOR.METAL DRILL OPERATOR Prescription instructions reviewed with patient as [...] 4 - Moderate documented in this encounter [facility] 05-04-2024 Telephone encounter Note Spoke with pt and she is rescheduled to 6-19-24. 1 PM (40 minutes). Dede Lundy LPN [facility] 05-04-2024 Miscellaneous Notes Spoke with pt [...] minute slot. Any questions, please contact office. [id number] Jace Wallis MA documented in this encounter [facility] 05-03-2024 Telephone encounter Note Sent my chart message. Jace Wallis MA Options: 05/05 at 1:40 40 minute 05/08 at 1:20 40 minute 05/10 at 1:[address] [facility] 05-02-2024 Telephone encounter Note Patient is scheduled next Wednesday for excision. This needs to be rescheduled with a 40 minute slot. Any questions, please contact office. [id number] Jace Wallis MA [facility] 05-01-2024 History of Present illness Narrative Reason for Visit: Papillary thyroid carcinoma History of Present Illness: Greta Andres is a 33 y.o. female here for follow up of papillary thyroid carcinoma (TAYLOR initial stratification intermediate risk). She is s/p total thyroidectomy and central neck dissection on 07/31/[address] Martinez at [facility]. Pathology showed mutifocal PTC with the largest [...] were removed uneventfully. 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 Caitlyn Rivera MD Summer Analystmaintenance instructor Department of Internal Medicine Division of Endocrinology, Diabetes and Metabolism [facility] documented in this encounter [facility] 05-01-2024 Instructions Caitlyn Rivera MD - 05/01/2024 12:20 PM EDT Labs today Follow up in 1 year. documented in this encounter [facility] 05-01-2024 Procedure note Associated Ord er(s): [...] suspicious lesions LEFT LATERAL: No suspicious nodes [facility] 05-01-2024 Procedure note Associated Ord er(s): [...] No suspicious nodes documented in this encounter [facility] 05-01-2024 Telephone encounter Note Patient notified and voiced understanding. Jace Wallis MA [facility] 05-01-2024 Miscellaneous Notes Patient notified and voiced understanding. Jace Wallis MA Let patient know her breathing test was ok. documented in this encounter [facility] 04-29-2024 Telephone encounter Note Let patient know her breathing test was ok. [facility] 04-26-2024 Telephone encounter Note Patient was contacted and rescheduled. Jace Wallis MA [facility] 04-26-2024 Miscellaneous Notes Patient was contacted and rescheduled. Jace Wallis MA documented in this encounter [facility] 04-26-2024 History of Present illness Narrative PULM FUNCTION: Provider: Nagi Red MD Assisting Tech: Vangie Carrion RPFT Spirometry w/BD: 1 documented in this encounter [facility] 04-26-2024 Telephone encounter Note Noted. [facility] 04-26-2024 Miscellaneous Notes Noted. Patient was notified and has not done vitmain D for few years but will resume 2000 units daily Yolande Reyes MA Advise patient her Vit D is only slightly low. Advise her to start taking Vit D 2000 international unit(s) 's a day. documented in this encounter [facility] 04-26-2024 Telephone encounter Note Patient was notified and has not done vitmain D for few years but will resume 2000 units daily Yolande Reyes MA [facility] 04-25-2024 Telephone encounter Note Advise patient her Vit D is only slightly low. Advise her to start taking Vit D 2000 international unit(s) 's a day. [facility] 04-25-2024 History of Present illness Narrative [...] dosage. Patient was seeing a PCP in [facility] when she was living there and was on HCTZ and has not been on this medication for a while. Patient with hx post surgical hypothyroid, papillary thyroid carcinoma, HTN, Anxiety, bipolar, vit D def, gastroparesis and those as below. Patient sees Endocrinology Dr. Rivera Patient sees Gastro [facility] Dr. Cole Past medical history, appointments, medications, [...] 08/07/2013 Bipolar 1 disorder (HCC) 02/14/2018 Seeing [facility] Behavioral Medicine as of 01/2018 Bipolar 1 disorder ([facility]) Chronic fatigue disorder 03/19/2015 Congenital heart [...] Lupus (systemic lupus erythematosus) ([facility]) Migraine without aura and without status migrainosus, not intractable 05/20/2017 Multiple thyroid nodules 07/26/2019 Obesity, Class I, BMI 30-34.9 03/03/2023 Other and unspecified ovarian cyst Ovarian cyst Other joint derangement, not elsewhere classified, lower leg 08/20/2008 Papillary thyroid carcinoma ([facility]) 07/21/2019 PMH - PAST MEDICAL HISTORY OF r thumb broken Post-surgical hypothyroidism 08/25/2019 Primary thyroid papillary carcinoma ([facility]) 07/21/2019 PTSD (post-traumatic stress disorder) 02/14/2018 PTSD (post-traumatic stress disorder) S/P total thyroidectomy 07/31/2019 Sacroiliitis, not elsewhere classified ([facility]) 02/20/2013 SI (sacroiliac) joint dysfunction 11/06/2015 [...] on File Prior to Visit Medication Sig Olskcaszumvlpgx-Bcxmwlrrp-[place] (BROMFED DM) 2-30-10 mg/5 mL syrup Take [...] Lymph 1.00 - 4.00 k/uL 2.71 2.50 Fountain% % 4.0 5.2 Abs Fountain <0.87 k/uL 0.43 0.52 Eosin% % 2.0 [...] Negative Ketones, Urine Negative Negative Negative Specific Tarpley, Ur 1.005 - 1.030 1.020 1.021 Hemoglobin/Blood,Ur [...] ICD9: V72.31, ICD10: Z01.419 - CONSULT TO BROKER IN CHARGE 16. Renal stones - ICD9: 592.0, ICD10: [...] which included preparing to see the patient, acmw-se-umpi patient care, completing clinical documentation, performing a medically appropriate examination, counseling and educating the patient/family/caregiver and ordering medications, tests, or procedures. Nagi Red MD documented in this encounter [facility] 04-19-2024 Note Addended by: NAGI RED on: 04/19/2024 04:04 PM Modules accepted: Orders [facility] 04-19-2024 Miscellaneous Notes Addended by: NAGI RED on: 04/19/2024 04:04 PM Modules accepted: Orders documented in this encounter [facility] 03-25-2024 History of Present illness Narrative [...] sevearl years. Had a hearing exam at [place] about 5 years ago and at that [...] 08/07/2013 Bipolar 1 disorder (HCC) 02/14/2018 Seeing [facility] Behavioral Medicine as of 01/2018 Bipolar [...] 08/20/2008 Papillary thyroid carcinoma ([facility]) 07/21/2019 PMH - PAST MEDICAL HISTORY OF r thumb broken Post-surgical hypothyroidism 08/25/2019 Primary thyroid papillary carcinoma ([facility]) 07/21/2019 PTSD (post-traumatic stress disorder) 02/14/2018 PTSD (post-traumatic stress disorder) S/P total thyroidectomy 07/31/2019 Sacroiliitis, not elsewhere classified ([facility]) 02/20/2013 SI (sacroiliac) joint dysfunction 11/06/2015 [...] as needed for up to 30 days. Cncpytdwjjglddr-Bamiotwqq-[place] (BROMFED DM) 2-30-10 mg/5 mL syrup Take [...] Nagi Red MD documented in this encounter [facility] 03-16-2024 History of Present illness Narrative Images from the original note were not included. [facility] for [facility] follow up [...] which included preparing to see the patient, dint-ku-llkh patient care, completing clinical documentation, performing a [...] March 16, 2024 documented in this encounter [facility] 03-07-2024 History of Present illness Narrative Scan on 03/06/2024 2:25 PM by Provider, CARLYN Lomax: Ultrasound Galina Forman LPN documented in this encounter [facility] 01-11-2024 History of Present illness Narrative [...] 08/07/2013 Bipolar 1 disorder (HCC) 02/14/2018 Seeing [facility] Behavioral Medicine as of 01/2018 Bipolar [...] Lupus (systemic lupus erythematosus) ([facility]) Migraine without aura and without status [...] [Dextroamphetamine-Amphetamine] MEDICATIONS Current Outpatient Medications Medication Sig Wytyoxhtmpdisbf-Bycmziwgn-[place] (BROMFED DM) 2-30-10 mg/5 mL syrup Take [...] Galilea Olvera PA-C documented in this encounter [facility] 01-07-2024 Miscellaneous Notes Patient notified of results, verbalized understanding of instructions given. Dee Vila MA Please notify positive for flu B Push fluids Otc medication advised Duration typically 5-7 days F/u for worsening s/s documented in this encounter [facility] 01-07-2024 Octavio Kelley PA - 01/07/2024 11:24 AM EST Rest, [...] while taking this documented in this encounter [facility] 01-07-2024 History of Present illness Narrative This note was created using Gendel. Subjective Greta Andres is a 33 year [...] 08/07/2013 Bipolar 1 disorder (HCC) 02/14/2018 Seeing [facility] Behavioral Medicine as of 01/2018 Bipolar [...] Sacroiliitis, not elsewhere classified ([facility]) 02/20/2013 SI (sacroiliac) joint dysfunction 11/06/2015 [...] Adhesive, Morphine Sulfate, and Adderall [Dextroamphetamine-Amphetamine] MEDICATIONS Puxkwllojfgvvpc-Marveqtpy-[place] (BROMFED DM) 2-30-10 mg/5 mL syrup Take [...] evaluation. JERI Carroll documented in this encounter [facility] 01-03-2024 History of Present illness Narrative Scan on 01/01/2024 12:12 AM by Provider, CARLYN Lomax: Consultation - Emergency Medicine Scan on 12/31/2023 6:12 PM by Provider, STIVEN LomaxC: CT Scan documented in this encounter [facility] 11-04-2023 Instructions Brian Griffin - 11/04/2023 [...] to twice weekly documented in this encounter [facility] 11-04-2023 History of Present illness Narrative [...] 03/27/2023 5.5 07/06/2022 5.2 12/21/2019 5.3 HBA1C, [place] (%) Date Value 01/20/2006 5.0 PCP: Nagi [...] 08/07/2013 Bipolar 1 disorder (HCC) 02/14/2018 Seeing [facility] Behavioral Medicine as of 01/2018 Bipolar [...] Lupus (systemic lupus erythematosus) ([facility]) Migraine without aura and without status [...] Griffin DPM Podiatry [address] [facility] [id number] Dept: [phone] Dept AMB ROOMING INTAKE FLOWSHEET DATA Pain Pain Level: 2 Pain Location: Foot-Left Description: Sharp Duration Amount of Time: 3 Duration Units: Weeks Frequency: Intermittent Intervention/Comfort measure: Relaxation, Reposition Patient presents with: Left Foot - New Patient, Foreign Body Patient c/o possible splinter to L plantar foot x 3 weeks. Area where splinter is has since callused over. documented in this encounter [facility] 10-04-2023 History of Present illness Narrative [...] 08/07/2013 Bipolar 1 disorder (HCC) 02/14/2018 Seeing [facility] Behavioral Medicine as of 01/2018 Bipolar [...] Discussed expected course of illness Bobby Paiz APRN.METAL DRILL OPERATOR documented in this encounter [facility] 10-04-2023 Instructions Bobby Paiz APRN.METAL DRILL OPERATOR - 10/04/2023 9:26 AM EST ASSESSMENT/PLAN: 1. [...] Discussed expected course of illness Bobby Paiz APRN.METAL DRILL OPERATOR ACUTE BRONCHITIS: You have acute bronchitis. [...] of proper treatment. documented in this encounter [facility] 09-15-2023 History of Present illness Narrative VIRTUAL VISIT PROGRESS NOTE This is a virtual visit using [employer] Video Visit. It required patient-provider interaction for the medical decision making as documented below. I have communicated my name and active licensure. The patient's identity and physical location were verified at the time of this visit. Either the patient or their legal manufacturers representative has been informed of the risks [...] 08/07/2013 Bipolar 1 disorder (HCC) 02/14/2018 Seeing [facility] Behavioral Medicine as of 01/2018 Bipolar [...] Lupus (systemic lupus erythematosus) ([facility]) Migraine without aura and without status migrainosus, not intractable 05/20/2017 Multiple thyroid nodules 07/26/2019 Obesity, Class I, BMI 30-34.9 03/03/2023 Other and unspecified ovarian cyst Ovarian cyst Other joint derangement, not elsewhere classified, lower leg 08/20/2008 Papillary thyroid carcinoma ([facility]) 07/21/2019 PMH - PAST MEDICAL HISTORY OF r thumb broken Post-surgical hypothyroidism 08/25/2019 Primary thyroid papillary carcinoma ([facility]) 07/21/2019 PTSD (post-traumatic stress disorder) 02/14/2018 PTSD (post-traumatic stress disorder) S/P total thyroidectomy 07/31/2019 Sacroiliitis, not elsewhere classified ([facility]) 02/20/2013 SI (sacroiliac) joint dysfunction 11/06/2015 [...] which included preparing to see the patient, uvve-vt-znxp patient care, completing clinical documentation, performing a medically appropriate examination, and ordering medications, tests, or procedures Carlie Brownlee APRN.METAL DRILL OPERATOR documented in this encounter [facility] 06-08-2023 History of Present illness Narrative SUBJECTIVE: Greta Andres presents to [facility] Department for a follow up appointment for refills. Since the last visit, Greta Taverasers states the pain has been persistent. Current [...] activity was identified. 06/08/2023 by Carlie Brownlee APRN.METAL DRILL OPERATOR Narcotic Agreement reviewed and signed?: N/A [...] which included preparing to see the patient, bvcx-jf-uucp patient care, completing clinical documentation, performing a medically appropriate examination, and ordering medications, tests, or procedures. Carlie Brownlee APRN.METAL DRILL OPERATOR documented in this encounter [facility] 04-28-2023 History of Present illness Narrative [...] TIME: 3:10 PM documented in this encounter [facility] 04-28-2023 Miscellaneous Notes Pt notified of [...] levels. Pt sees Dr Caitlyn Rivera in [place]. Pt's results were faxed & pt will contact the office for follow up. Dr Rivera ph: [phone] Pt is asking for results from rest of labs from yesterday. Galina Forman LPN Let patient know that her TSH level is significantly elevated and may be cause of some of her current symptoms. We can send this lab result to her mica laminating machine feeder and I would advise her to get in touch with her office as well. (Please confirm mica laminating machine feeder so labs can be sent). (Fyi to Dano) documented in this encounter [facility] 04-27-2023 Instructions Rneard Almodovar APRN.MARGARITA - 04/27/2023 10:22 AM EDT Complete labs Schedule CTA 3. Follow up as directed with results of CTA and labs documented in this encounter [facility] 04-27-2023 History of Present illness Narrative [...] 08/07/2013 Bipolar 1 disorder (HCC) 02/14/2018 Seeing [facility] Behavioral Medicine as of 01/2018 Bipolar [...] - IV CONTRAST (RADIOLOGY PROCEDURE) Renard Almodovar APRN.CNP documented in this encounter [facility] 04-26-2023 History of Present illness Narrative Scan on 04/24/2023 3:46 PM by External Provider, CARLYN: Consultation - Emergency Medicine documented in this encounter [facility] 04-05-2023 Miscellaneous Notes Patient notified and verbalized understanding. Patient states that she needs to look at her schedule and call back to reschedule appointment Greta Fox Cma Please let patient know her cholesterol levels have worsened and her vitamin D is low. Patient should reschedule her appointment to discuss these results. documented in this encounter [facility] 04-01-2023 Miscellaneous Notes Results sent via [employer]iCure message at this time Dr. Contreras reviewed [...] not scheduled it documented in this encounter [facility] 03-29-2023 Miscellaneous Notes Records received and delivered to provider's office. Dede Lundy LPN Pt called and advised was seen in [facility] ER yesterday 03-28-23 for abdominal pain/back pain/ right flank pain. Was told not kidney stone. Pt still having pain and has been scheduled for ER FU today. Pt feels she still may have a kidney stone. I had to leave a phone message requesting records and they are to be faxed to me and I will deliver to office. [facility] Medical records was asked to call if there was any problems. Dede Lundy LPN documented in this encounter [facility] 03-03-2023 Instructions Nagi Red MD - 03/03/2023 11:14 AM EDT Please get labs and urine test done on or after 08/20/2023 prior to your next visit. documented in this encounter [facility] 03-03-2023 History of Present illness Narrative [...] not been successful. Is seeing Gastro at [facility] and feel she may have gastroparesis. [...] 08/07/2013 Bipolar 1 disorder (HCC) 02/14/2018 Seeing [facility] Behavioral Medicine as of 01/2018 Bipolar [...] Nagi Red MD documented in this encounter [facility] 02-17-[address] Contreras has [...] Marcella Mohr RN documented in this encounter [facility] 02-12-2023 Surgical operation note PATIENT NAME: [...] TIME: 1:56 PM documented in this encounter [facility] 02-12-2023 History and physical note HISTORY [...] 08/07/2013 Bipolar 1 disorder (HCC) 02/14/2018 Seeing [facility] Behavioral Medicine as of 01/2018 Bipolar [...] Sacroiliitis, not elsewhere classified ([facility]) 02/20/2013 SI (sacroiliac) joint dysfunction 11/06/2015 [...] TIME: 1:09 PM documented in this encounter [facility] 02-06-2023 History of Present illness Narrative Scan on 02/02/2023 7:57 AM by External Provider: DONNA Wallis MA documented in this encounter [facility] 01-26-2023 History of Present illness Narrative Please see labs: Scan on 01/23/2023 11:14 AM by External Provider: Miscellaneous Lab Ruthann Mitchell LPN documented in this encounter [facility] 01-22-2023 History of Present illness Narrative [...] Jace Wallis MA documented in this encounter [facility] 01-22-2023 History of Present illness Narrative [...] 08/07/2013 Bipolar 1 disorder (HCC) 02/14/2018 Seeing [facility] Behavioral Medicine as of 01/2018 Chronic [...] Sacroiliitis, not elsewhere classified ([facility]) 02/20/2013 SI (sacroiliac) joint dysfunction 11/06/2015 [...] of care. This note was generated using Dweho software. It may contain errors in wording, punctuation, or spelling. Nagi Ku APRN.MARGARITA documented in this encounter [facility] 01-12-2023 Miscellaneous Notes Injection order signed off Order for Right Sacroiliac Joint Injection pended to provider at this time documented in this encounter [facility] 11-25-2022 History of Present illness Narrative VIRTUAL VISIT PROGRESS NOTE This is a virtual visit using Here On Biz video visit. It required patient-provider interaction for [...] 08/07/2013 Bipolar 1 disorder (HCC) 02/14/2018 Seeing [facility] Behavioral Medicine as of 01/2018 Chronic [...] Sacroiliitis, not elsewhere classified ([facility]) 02/20/2013 SI (sacroiliac) joint dysfunction 11/06/2015 [...] which included preparing to see the patient, [id number] patient care, completing clinical documentation, and ordering medications, tests, or procedures Carlie Brownlee APRN.MARGARITA documented in this encounter [facility] 10-12-2022 Miscellaneous Notes Addended by: CHRISTINE [...] Ada Carson LPN documented in this encounter [facility] 09-16-2022 History of Present illness Narrative Reason for Visit: Papillary thyroid carcinoma History of Present Illness: Greta Andres is a 31 y.o. female here for the follow up of her papillary thyroid carcinoma (TAYLOR initial stratification intermediate risk). She is s/p total thyroidectomy and central neck dissection on 07/31/[address] Martinez at [facility]. 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 Post MARTNI sialadenitis S/p kenalog injection to bilateral parotid glands and placement of parotid duct stent bilaterally. Follow up in 6 months. Caitlyn Rivera MD Summer Analystmaintenance instructor Department of Internal Medicine Division of Endocrinology, Diabetes and Metabolism [facility] documented in this encounter [facility] 09-16-2022 Instructions Stephanie Richards RN - 09/16/2022 11:40 AM EDT Labs today Follow up in 6 months. documented in this encounter [facility] 09-16-2022 Procedure note Associated Ord er(s): [...] 0.9 cm LEFT LATERAL: No suspicious nodes [facility] 09-16-2022 Procedure note Associated Ord er(s): [...] No suspicious nodes documented in this encounter [facility] 09-10-2022 Note PROCEDURE: ULTRASOUN D TRANSVAGINAL [...] 2. Dominant 2.4 cm right ovarian follicle [facility] 07-31-2022 Miscellaneous Notes The following approved medication requests have been transmitted electronically. Requested Prescriptions Signed Prescriptions Disp Refills traMADol (ULTRAM) 50 mg tablet 30 tablet 2 Sig: Take 1 tablet by mouth once daily as needed for up to 30 days. Carlie Brownlee APRN.MARGARITA Received a refill request via Here On Biz from the patient for the following medication(s): [...] Roseline Pierson Ma documented in this encounter [facility] 07-07-2022 Miscellaneous Notes Patient notified of results and provider's instructions. Patient verbalizes understanding. Ada Carson LPN Let patient know that TSH is elevated at 6.610. Ask her to reach out to her mica laminating machine feeder for further instructions. They may want additional labs. Update us with any changes they do please. Cholesterol is mildly elevated. Could be false elevation due to changes in TSH levels currently. But still we will want to monitor. Rest of labs are normal Christine Dean PA-C documented in this encounter [facility] 07-06-2022 History of Present illness Narrative [...] 08/07/2013 Bipolar 1 disorder (HCC) 02/14/2018 Seeing [facility] Behavioral Medicine as of 01/2018 Chronic [...] Sacroiliitis, not elsewhere classified ([facility]) 02/20/2013 SI (sacroiliac) joint dysfunction 11/06/2015 [...] Christine Dean PA-C documented in this encounter [facility] 06-24-2022 Miscellaneous Notes Pt notified to call into Scheduling to setup appt. Okay to Establish care per Dr. Red. Phil Millan Ma Notified pt of Provider message below. Offered to assist in scheduling with PA. Phil Millan Ma I'm ok with patient re-establishing care. documented in this encounter [facility] 06-16-2022 Instructions Caridad Colon RN - 06/16/2022 9:01 AM EDT Please call [phone] to update us on how you are doing in 4-6 weeks. Thank you! Lemon drops and other sialogogues (things that make you salivate) to stimulate saliva. Drink at least 8 glasses of water per day Warm compresses then Parotid (cheek) massage documented in this encounter [facility] 06-16-2022 History of Present illness Narrative [...] RTC PRN documented in this encounter [facility] 04-10-2022 Miscellaneous Notes Patient contacted via telephone to schedule re-injection. Patient scheduled for: May 12, 2022 Patient left voicemail 04/09/2022 at 1146 Patient states she will need to reschedule procedure that is currently scheduled for 04/23/2022 Patient added to injection scheduling spreadsheet in epic Office to contact patient to reschedule documented in this encounter [facility] 04-07-2022 History of Present illness Narrative VIRTUAL VISIT PROGRESS NOTE This is a virtual visit using Here On Biz video visit. It required patient-provider interaction for [...] 08/07/2013 Bipolar 1 disorder (HCC) 02/14/2018 Seeing [facility] Behavioral Medicine as of 01/2018 Chronic [...] which included preparing to see the patient, [id number] patient care, completing clinical documentation and ordering medications, tests, or procedures Carlie Brownlee APRN.MARGARITA documented in this encounter [facility] 03-26-2022 Instructions JESÚS Alford - 03/26/2022 8:32 AM EDT Welcome to the Head and Neck Oncology Clinic. We are here to assist you through your care at the [facility] and Navdeep Garcia [facility] [place]. Dr. Tapia is your Head and Neck Surgical Oncology doctor. It is likely that you will have other cancer doctors to assist with your care. Dr. Tapia's Primary Nurse is Kylah Maddox RN. She can be reached at [phone]. In order to care for you in the best possible way it is very important that you have a relationship with a primary care doctor. If you do not have one please establish care with on in your area or at [facility] at [phone] an [address] Tapia will [...] liquid narcotic pain medication before you leave [place]. If you are on narcotic pain medication, you could become constipated so please take your bowel medication (laxative) of choice when you start narcotic pain medication. Here are the resources/team members available to you at The [facility]: Speech and Language Pathologist (EXECUTIVE VICE PRESIDENT)- may be asked by Dr. Shay to assist you with swallowing and speaking issues. They may see you during visits with Dr. Shay and in the hospital. Our EXECUTIVE VICE PRESIDENT's and contact phone numbers are below: Roselia Kenny [phone] Yue Bateman [phone] Claire Bridges [phone] Caridad Lechuga [phone] Ana María Baker [phone] Darline [phone] Pattern Weaver- JORGE LUIS Dumont and JORGE LUIS Hardwick are available to assist with transportation and housing issues related to medical appointments. The high school social science teacher also provides counseling and information regarding Advance Directives, End of Life issues, Social Security Disability, and referrals to support groups, and other community agencies. Please let Poppy or Dr. Shay know if you need these services. You may contact Deepali at [phone] or Beata [phone]. [facility] This is for patients who live in [facility] with a cancer diagnosis. The [place] [facility] can provide rides to appointments, nutritional supplements and other services. It requires that your register for services by speaking with our head and neck social workers. If you are outside of [facility] the high school social science teacher can assist you with what is available in your county. Pastoral Care-Warehouse Shift Supervisor Fani Yee-is able to assist your with your spiritual needs. If you wish to see the senior technologist please let your oncology team know to arrange this. Financial Services- Bimal Rees and Sabine Klein are our financial counselor who can assist your at your appointments or call them at [phone]. Electrical Electronics Engineers-Currently an order must be placed by Dr. Tapia to have to see the Electrical Electronics Engineers, Sandy Lopez. If you are already seeing Sandy her direct phone number is [phone]. Pain Management Team is available if Dr. Tapia feels that you need this a referral is made and your pain care is transferred to this group. Integrative Medicine therapy-these are complementary therapies used in addition to your cancer treatment to assist with anxiety, pain, nausea, poor sleep, and exhaustion. If you wish this additional therapy please contact [email or web address] to set up an appointment. [...] or radiation. For information options please call [phone]. [facility]- It is conveniently located on the [facility] campus on the conference level (CL) of the [facility] and [facility], next door to [facility] and near [facility]. To learn more about [facility], you can visit it on weekdays from 8 a.m. - 9 p.m. and on weekends from 9 a.m. - 6 p.m., stop by our open house event April 26, call [phone] or visit. [facility]. Items: Family Medical Leave paperwork is available through your human resources department. Please call human resources and have them fax paperwork to DEANDRE Montero @ [phone]. [employer] (Here On Biz)- is a communication tool used through the Internet to communicate NON-urgent medical information with your [facility] doctors. You may ask questions, receive results and get notification of appointments. The results will be released to the [employer] (Here On Biz) by your doctors and will only be results that do not need additional explanation. If a discussion of the result is important your doctor or nurse will call you. If you wish to sign up this must be done in person. Our spa receptionist staff can assist you to get a password that can be changed when after you log on the first time. IMPORTANT REMINDER: This portal is only for NON-urgent information. If you have urgent information about your condition please call DEANDRE Mcwilliams at [phone]. THERE IS A NEW [employer] AKIKO FOR SMART PHONES. USE YOUR AKIKO STORE AND SEARCH [employer], download the akiko and follow the prompts to set up the [facility] format. Through this AKIKO, you will be [...] of the pills. documented in this encounter [facility] 03-26-2022 History of Present illness Narrative Chief [...] 07/31/[address] Martinez at [facility]. 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 I discussed the differential diagnosis and plan [...] 07/31/[address] Martinez at [facility]. 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 I discussed the differential diagnosis and plan [...] questions and concerns. documented in this encounter [facility] 03-18-2022 Instructions Stephanie Richards RN - 03/18/2022 12:38 PM EDT Labs today. Placed a referral to ENT to evaluate for salivary gland dysfunction. Follow up in 6 months documented in this encounter [facility] 03-18-2022 History of Present illness Narrative Reason for Visit: Papillary thyroid carcinoma History of Present Illness: Greta Andres is a 31 y.o. female here for the follow up of her papillary thyroid carcinoma (TAYLOR initial stratification intermediate risk). She is s/p total thyroidectomy and central neck dissection on 07/31/[address] Martinez at [facility]. 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 Caitlyn Rivera MD Summer Analystmaintenance instructor Department of Internal Medicine Division of Endocrinology, Diabetes and Metabolism [facility] documented in this encounter [facility] 03-18-2022 Procedure note Associated Ord er(s): [...] 0.2 cm LEFT LATERAL: No suspicious nodes [facility] 03-18-2022 Procedure note Associated Ord er(s): [...] suspicious nodes documented in this encounter [facility] 03-05-2022 Instructions Vielka Castillo Wi - 03/05/2022 8:13 AM EDT Capsule Endoscopy [...] hours you may call: After Business hours: [phone] have answering service contact your physician documented in this encounter [facility] 03-05-2022 History of Present illness Narrative Patient had a capsule endoscopy. Patient swallowed the capsule without any difficulty. Referring Provider: Susanne Potts Reason for Capsule: Susanne Potts Patient was given discharge instructions. Ingested capsule endoscope without difficulty at 8:12 AM on 03/05/2022. documented in this encounter [facility] 11-15-2021 Note PROCEDURE: CHEST AP PORTABLE [...] No large effusion, dense consolidation, or pneumothorax. [facility] 07-17-2021 History of Present illness Narrative [...] 2021 12:28 PM documented in this encounter [facility] 06-20-2021 History of Present illness Narrative MARTIN education completed. Handouts and low iodine cookbook provided to patient. Denies any questions at this time. documented in this encounter [facility] 10-19-2017 History of Past i llness Narrative Problem Noted Date Resolved Date Well adult exam 10/19/2017 07/27/2019 Overview: Last done: 10/20/2017 Attention and concentration deficit 03/19/2015 07/27/2019 Esophageal reflux 02/21/2015 07/27/2019 Routine gynecological examination 08/10/2014 07/27/2019 [facility] (DM) 08/10/2014 07/27/2019 Need for lipid screening 08/10/2014 019 Fibromyalgia 05/07/2014 07/27/2019 Other acquired deformity of toe 05/20/2009 07/27/2019 Backache, unspecified 06/19/2008 07/27/2019 Overview: Patient has degenerative disc disease and a slipped disc in her back. The symptoms began July 2011. 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 She sees Dr. Salter at [facility] for both of these issues. Patient has multiple questions regarding anesthesia during delivery due to her back issues. I have asked her to discuss this with Dr. aSlter at an upcoming appointment and have him dictate a letter to Dr. Anderson with any concerns he may have. documented as of this encounter (statuses as of 03/05/2022) [facility] History of Past illness Narrative* Problem Noted Date Resolved Date Well adult exam 10/19/2017 07/27/2019 Overview: Last done: 10/20/2017 Attention and concentration deficit 03/19/2015 07/27/2019 Esophageal reflux 02/21/2015 07/27/2019 Routine gynecological examination 08/10/2014 07/27/2019 Overview: [facility] Screening for diabetes mellitus (DM) 08/10/2014 07/27/2019 Need for lipid screening 08/10/2014 019 Fibromyalgia 05/07/2014 07/27/2019 Other acquired deformity of toe 05/20/2009 07/27/2019 Backache, unspecified 06/19/2008 07/27/2019 Overview: Patient has degenerative disc disease and a slipped disc in her back. The symptoms began July 2011. 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 She sees Dr. Salter at [facility] for both of these issues. Patient has multiple questions regarding anesthesia during delivery due to her back issues. I have asked her to discuss this with Dr. Salter at an upcoming appointment and have him dictate a letter to Dr. Anderson with any concerns he may have. documented as of this encounter (statuses as of 03/09/2022) [facility] History of Past illness Narrative* Problem Noted Date Resolved Date Well adult exam 10/19/2017 07/27/2019 Overview: Last done: 10/20/2017 Attention and concentration deficit 03/19/2015 07/27/2019 Esophageal reflux 02/21/2015 07/27/2019 Routine gynecological examination 08/10/2014 07/27/2019 Overview: [facility] Screening for diabetes mellitus (DM) 08/10/2014 07/27/2019 Need for lipid screening 08/10/2014 019 Fibromyalgia 05/07/2014 07/27/2019 Other acquired deformity of toe 05/20/2009 07/27/2019 Backache, unspecified 06/19/2008 07/27/2019 Overview: Patient has degenerative disc disease and a slipped disc in her back. The symptoms began July 2011. 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 She sees Dr. Salter at [facility] for both of these issues. Patient has multiple questions regarding anesthesia during delivery due to her back issues. I have asked her to discuss this with Dr. Salter at an upcoming appointment and have him dictate a letter to Dr. Anderson with any concerns he may have. documented as of this encounter (statuses as of 04/07/2022) [facility] History of Past illness Narrative* Problem Noted Date Resolved Date Well adult exam 10/19/2017 07/27/2019 Overview: Last done: 10/20/2017 Attention and concentration deficit 03/19/2015 07/27/2019 Esophageal reflux 02/21/2015 07/27/2019 Routine gynecological examination 08/10/2014 07/27/2019 Overview: [facility] Screening for diabetes mellitus (DM) 08/10/2014 07/27/2019 Need for lipid screening 08/10/2014 019 Fibromyalgia 05/07/2014 07/27/2019 Other acquired deformity of toe 05/20/2009 07/27/2019 Backache, unspecified 06/19/2008 07/27/2019 Overview: Patient has degenerative disc disease and a slipped disc in her back. The symptoms began July 2011. 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 She sees Dr. Salter at [facility] for both of these issues. Patient has multiple questions regarding anesthesia during delivery due to her back issues. I have asked her to discuss this with Dr. Salter at an upcoming appointment and have him dictate a letter to Dr. Anderson with any concerns he may have. documented as of this encounter (statuses as of 04/10/2022) [facility] History of Past illness Narrative* Problem Noted Date Resolved Date Well adult exam 10/19/2017 07/27/2019 Overview: Last done: 10/20/2017 Attention and concentration deficit 03/19/2015 07/27/2019 Esophageal reflux 02/21/2015 07/27/2019 Routine gynecological examination 08/10/2014 07/27/2019 [facility] 08/10/2014 07/27/2019 Need for lipid screening 08/10/2014 019 Fibromyalgia 05/07/2014 07/27/2019 Other acquired deformity of toe 05/20/2009 07/27/2019 Backache, unspecified 06/19/2008 07/27/2019 Overview: Patient has degenerative disc disease and a slipped disc in her back. The symptoms began July 2011. 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 She sees Dr. Salter at [facility] for both of these issues. Patient has multiple questions regarding anesthesia during delivery due to her back issues. I have asked her to discuss this with Dr. Salter at an upcoming appointment and have him dictate a letter to Dr. Anderson with any concerns he may have. documented as of this encounter (statuses as of 04/14/2022) [facility] History of Past illness Narrative* Problem Noted Date Resolved Date Well adult exam 10/19/2017 07/27/2019 Overview: Last done: 10/20/2017 Attention and concentration deficit 03/19/2015 07/27/2019 Esophageal reflux 02/21/2015 07/27/2019 Routine gynecological examination 08/10/2014 07/27/2019 Overview: [facility] Screening for diabetes mellitus (DM) 08/10/2014 07/27/2019 Need for lipid screening 08/10/2014 019 Fibromyalgia 05/07/2014 07/27/2019 Other acquired deformity of toe 05/20/2009 07/27/2019 Backache, unspecified 06/19/2008 07/27/2019 Overview: Patient has degenerative disc disease and a slipped disc in her back. The symptoms began July 2011. 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 She sees Dr. Salter at [facility] for both of these issues. Patient has multiple questions regarding anesthesia during delivery due to her back issues. I have asked her to discuss this with Dr. Salter at an upcoming appointment and have him dictate a letter to Dr. Anderson with any concerns he may have. documented as of this encounter (statuses as of 05/14/2022) [facility] History of Past illness Narrative* Problem Noted Date Resolved Date Well adult exam 10/19/2017 07/27/2019 Overview: Last done: 10/20/2017 Attention and concentration deficit 03/19/2015 07/27/2019 Esophageal reflux 02/21/2015 07/27/2019 Routine gynecological examination 08/10/2014 07/27/2019 Overview: [facility] Screening for diabetes mellitus (DM) 08/10/2014 07/27/2019 Need for lipid screening 08/10/2014 019 Fibromyalgia 05/07/2014 07/27/2019 Other acquired deformity of toe 05/20/2009 07/27/2019 Backache, unspecified 06/19/2008 07/27/2019 Overview: Patient has degenerative disc disease and a slipped disc in her back. The symptoms began July 2011. 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 She sees Dr. Salter at [facility] for both of these issues. Patient has multiple questions regarding anesthesia during delivery due to her back issues. I have asked her to discuss this with Dr. Salter at an upcoming appointment and have him dictate a letter to Dr. Anderson with any concerns he may have. documented as of this encounter (statuses as of 05/26/2022) [facility]11-28-2017 History of Past illness Narrative* Problem Noted Date Resolved Date Well adult exam 10/19/2017 07/27/2019 Overview: Last done: 10/20/2017 Attention and concentration deficit 03/19/2015 07/27/2019 Esophageal reflux 02/21/2015 07/27/2019 Routine gynecological examination 08/10/2014 07/27/2019 [facility] [place] for diabetes mellitus (DM) 08/10/2014 07/27/2019 Need for lipid screening 08/10/2014 019 Fibromyalgia 05/07/2014 07/27/2019 Other acquired deformity of toe 05/20/2009 07/27/2019 Backache, unspecified 06/19/2008 07/27/2019 Overview: Patient has degenerative disc disease and a slipped disc in her back. The symptoms began July 2011. 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 She sees Dr. Salter at [facility] for both of these issues. Patient has multiple questions regarding anesthesia during delivery due to her back issues. I have asked her to discuss this with Dr. Salter at an upcoming appointment and have him dictate a letter to Dr. Anderson with any concerns he may have. documented as of this encounter (statuses as of 06/24/2022) [facility]11-28-2017 History of Past illness Narrative* Problem Noted Date Resolved Date Well adult exam 10/19/2017 07/27/2019 Overview: Last done: 10/20/2017 Attention and concentration deficit 03/19/2015 07/27/2019 Esophageal reflux 02/21/2015 07/27/2019 Routine gynecological examination 08/10/2014 07/27/2019 Overview: [facility] Screening for diabetes mellitus (DM) 08/10/2014 07/27/2019 Need for lipid screening 08/10/2014 019 Fibromyalgia 05/07/2014 07/27/2019 Other acquired deformity of toe 05/20/2009 07/27/2019 Backache, unspecified 06/19/2008 07/27/2019 Overview: Patient has degenerative disc disease and a slipped disc in her back. The symptoms began July 2011. 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 She sees Dr. Salter at [facility] for both of these issues. Patient has multiple questions regarding anesthesia during delivery due to her back issues. I have asked her to discuss this with Dr. Salter at an upcoming appointment and have him dictate a letter to Dr. Anderson with any concerns he may have. documented as of this encounter (statuses as of 07/01/2022) [facility]11-28-2017 History of Past illness Narrative* Problem Noted Date Resolved Date Well adult exam 10/19/2017 07/27/2019 Overview: Last done: 10/20/2017 Attention and concentration deficit 03/19/2015 07/27/2019 Esophageal reflux 02/21/2015 07/27/2019 Routine gynecological examination 08/10/2014 07/27/2019 Overview: [facility] Screening for diabetes mellitus (DM) 08/10/2014 07/27/2019 Need for lipid screening 08/10/2014 019 Fibromyalgia 05/07/2014 07/27/2019 Other acquired deformity of toe 05/20/2009 07/27/2019 Backache, unspecified 06/19/2008 07/27/2019 Overview: Patient has degenerative disc disease and a slipped disc in her back. The symptoms began July 2011. 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 She sees Dr. Salter at [facility] for both of these issues. Patient has multiple questions regarding anesthesia during delivery due to her back issues. I have asked her to discuss this with Dr. Salter at an upcoming appointment and have him dictate a letter to Dr. Anderson with any concerns he may have. documented as of this encounter (statuses as of 07/06/2022) [facility]11-28-2017 History of Past illness Narrative* Problem Noted Date Resolved Date Well adult exam 10/19/2017 07/27/2019 Overview: Last done: 10/20/2017 Attention and concentration deficit 03/19/2015 07/27/2019 Esophageal reflux 02/21/2015 07/27/2019 Routine gynecological examination 08/10/2014 07/27/2019 Overview: [facility] for diabetes mellitus (DM) 08/10/2014 07/27/2019 Need for lipid screening 08/10/2014 019 Fibromyalgia 05/07/2014 07/27/2019 Other acquired deformity of toe 05/20/2009 07/27/2019 Backache, unspecified 06/19/2008 07/27/2019 Overview: Patient has degenerative disc disease and a slipped disc in her back. The symptoms began July 2011. 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 She sees Dr. Salter at [facility] for both of these issues. Patient has multiple questions regarding anesthesia during delivery due to her back issues. I have asked her to discuss this with Dr. Salter at an upcoming appointment and have him dictate a letter to Dr. Anderson with any concerns he may have. documented as of this encounter (statuses as of 07/07/2022) [facility]11-28-2017 History of Past illness Narrative* Problem Noted Date Resolved Date Well adult exam 10/19/2017 07/27/2019 Overview: Last done: 10/20/2017 Attention and concentration deficit 03/19/2015 07/27/2019 Esophageal reflux 02/21/2015 07/27/2019 Routine gynecological examination 08/10/2014 07/27/2019 Overview: [facility] Screening for diabetes mellitus (DM) 08/10/2014 07/27/2019 Need for lipid screening 08/10/2014 019 Fibromyalgia 05/07/2014 07/27/2019 Other acquired deformity of toe 05/20/2009 07/27/2019 Backache, unspecified 06/19/2008 07/27/2019 Overview: Patient has degenerative disc disease and a slipped disc in her back. The symptoms began July 2011. 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 She sees Dr. Salter at [facility] for both of these issues. Patient has multiple questions regarding anesthesia during delivery due to her back issues. I have asked her to discuss this with Dr. Salter at an upcoming appointment and have him dictate a letter to Dr. Anderson with any concerns he may have. documented as of this encounter (statuses as of 07/31/2022) [facility]04-28-2015 History of Past illness Narrative* Problem Noted Date Resolved Date Attention and concentration deficit 03/19/2015 07/27/2019 Esophageal reflux 02/21/2015 07/27/2019 Routine gynecological examination 08/10/2014 07/27/2019 Overview: [facility] Screening for diabetes mellitus (DM) 08/10/2014 07/27/2019 Need for lipid screening 08/10/2014 019 Fibromyalgia 05/07/2014 07/27/2019 Other acquired deformity of toe 05/20/2009 07/27/2019 Backache, unspecified 06/19/2008 07/27/2019 Overview: Patient has degenerative disc disease and a slipped disc in her back. The symptoms began July 2011. 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 She sees Dr. Salter at [facility] for both of these issues. Patient has multiple questions regarding anesthesia during delivery due to her back issues. I have asked her to discuss this with Dr. Salter at an upcoming appointment and have him dictate a letter to Dr. Anderson with any concerns he may have. documented as of this encounter (statuses as of 10/12/2022) [facility]04-28-2015 History of Past illness Narrative* Problem Noted Date Resolved Date Attention and concentration deficit 03/19/2015 07/27/2019 Esophageal reflux 02/21/2015 07/27/2019 Routine gynecological examination 08/10/2014 07/27/2019 Overview: [facility] Screening for diabetes mellitus (DM) 08/10/2014 07/27/2019 Need for lipid screening 08/10/2014 019 Fibromyalgia 05/07/2014 07/27/2019 Other acquired deformity of toe 05/20/2009 07/27/2019 Backache, unspecified 06/19/2008 07/27/2019 Overview: Patient has degenerative disc disease and a slipped disc in her back. The symptoms began July 2011. 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 She sees Dr. Salter at [facility] for both of these issues. Patient has multiple questions regarding anesthesia during delivery due to her back issues. I have asked her to discuss this with Dr. Salter at an upcoming appointment and have him dictate a letter to Dr. Anderson with any concerns he may have. documented as of this encounter (statuses as of 11/26/2022) [facility]04-28-2015 History of Past illness Narrative* Problem Noted Date Resolved Date Attention and concentration deficit 03/19/2015 07/27/2019 Esophageal reflux 02/21/2015 07/27/2019 Routine gynecological examination 08/10/2014 07/27/2019 Overview: [facility] Screening for diabetes mellitus (DM) 08/10/2014 07/27/2019 Need for lipid screening 08/10/2014 019 Fibromyalgia 05/07/2014 07/27/2019 Other acquired deformity of toe 05/20/2009 07/27/2019 Backache, unspecified 06/19/2008 07/27/2019 Overview: Patient has degenerative disc disease and a slipped disc in her back. The symptoms began July 2011. 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 She sees Dr. Salter at [facility] for both of these issues. Patient has multiple questions regarding anesthesia during delivery due to her back issues. I have asked her to discuss this with Dr. Salter at an upcoming appointment and have him dictate a letter to Dr. Anderson with any concerns he may have. documented as of this encounter (statuses as of 11/27/2022) [facility]04-28-2015 History of Past illness Narrative* Problem Noted Date Resolved Date Attention and concentration deficit 03/19/2015 07/27/2019 Esophageal reflux 02/21/2015 07/27/2019 Routine gynecological examination 08/10/2014 07/27/2019 Overview: [facility] Screening for diabetes mellitus (DM) 08/10/2014 07/27/2019 Need for lipid screening 08/10/2014 019 Fibromyalgia 05/07/2014 07/27/2019 Other acquired deformity of toe 05/20/2009 07/27/2019 Backache, unspecified 06/19/2008 07/27/2019 Overview: Patient has degenerative disc disease and a slipped disc in her back. The symptoms began July 2011. 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 She sees Dr. Salter at [facility] for both of these issues. Patient has multiple questions regarding anesthesia during delivery due to her back issues. I have asked her to discuss this with Dr. Salter at an upcoming appointment and have him dictate a letter to Dr. Anderson with any concerns he may have. documented as of this encounter (statuses as of 12/17/2022) [facility]04-28-2015 History of Past illness Narrative* Problem Noted Date Resolved Date Attention and concentration deficit 03/19/2015 07/27/2019 Esophageal reflux 02/21/2015 07/27/2019 Routine gynecological examination 08/10/2014 07/27/2019 Overview: [facility] Screening for diabetes mellitus (DM) 08/10/2014 07/27/2019 Need for lipid screening 08/10/2014 019 Fibromyalgia 05/07/2014 07/27/2019 Other acquired deformity of toe 05/20/2009 07/27/2019 Backache, unspecified 06/19/2008 07/27/2019 Overview: Patient has degenerative disc disease and a slipped disc in her back. The symptoms began July 2011. 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 She sees Dr. Salter at [facility] for both of these issues. Patient has multiple questions regarding anesthesia during delivery due to her back issues. I have asked her to discuss this with Dr. Salter at an upcoming appointment and have him dictate a letter to Dr. Anderson with any concerns he may have. documented as of this encounter (statuses as of 01/12/2023) [facility]04-28-2015 History of Past illness Narrative* Problem Noted Date Resolved Date Attention and concentration deficit 03/19/2015 07/27/2019 Esophageal reflux 02/21/2015 07/27/2019 Routine gynecological examination 08/10/2014 07/27/2019 [facility] 08/10/2014 07/27/2019 Need for lipid screening 08/10/2014 019 Fibromyalgia 05/07/2014 07/27/2019 Other acquired deformity of toe 05/20/2009 07/27/2019 Backache, unspecified 06/19/2008 07/27/2019 Overview: Patient has degenerative disc disease and a slipped disc in her back. The symptoms began July 2011. 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 She sees Dr. Salter at [facility] for both of these issues. Patient has multiple questions regarding anesthesia during delivery due to her back issues. I have asked her to discuss this with Dr. Salter at an upcoming appointment and have him dictate a letter to Dr. Anderson with any concerns he may have. documented as of this encounter (statuses as of 01/22/2023) [facility]04-28-2015 History of Past illness Narrative* Problem Noted Date Resolved Date Attention and concentration deficit 03/19/2015 07/27/2019 Esophageal reflux 02/21/2015 07/27/2019 Routine gynecological examination 08/10/2014 07/27/2019 Overview: [facility] Screening for diabetes mellitus (DM) 08/10/2014 07/27/2019 Need for lipid screening 08/10/20142 019 Fibromyalgia 05/07/2014 07/27/2019 Other acquired deformity of toe 05/20/2009 07/27/2019 Backache, unspecified 06/19/2008 07/27/2019 Overview: Patient has degenerative disc disease and a slipped disc in her back. The symptoms began July 2011. 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 She sees Dr. Salter at [facility] for both of these issues. Patient has multiple questions regarding anesthesia during delivery due to her back issues. I have asked her to discuss this with Dr. Salter at an upcoming appointment and have him dictate a letter to Dr. Anderson with any concerns he may have. documented as of this encounter (statuses as of 01/22/2023) [facility]04-28-2015 History of Past illness Narrative* Problem Noted Date Resolved Date Attention and concentration deficit 03/19/2015 07/27/2019 Esophageal reflux 02/21/2015 07/27/2019 Routine gynecological examination 08/10/2014 07/27/2019 Overview: [facility] Screening for diabetes mellitus (DM) 08/10/2014 07/27/2019 Need for lipid screening 08/10/2014 019 Fibromyalgia 05/07/2014 07/27/2019 Other acquired deformity of toe 05/20/2009 07/27/2019 Backache, unspecified 06/19/2008 07/27/2019 Overview: Patient has degenerative disc disease and a slipped disc in her back. The symptoms began July 2011. 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 She sees Dr. Salter at [facility] for both of these issues. Patient has multiple questions regarding anesthesia during delivery due to her back issues. I have asked her to discuss this with Dr. Salter at an upcoming appointment and have him dictate a letter to Dr. Anderson with any concerns he may have. documented as of this encounter (statuses as of 01/26/2023) [facility]04-28-2015 History of Past illness Narrative* Problem Noted Date Resolved Date Attention and concentration deficit 03/19/2015 07/27/2019 Esophageal reflux 02/21/2015 07/27/2019 Routine gynecological examination 08/10/2014 07/27/2019 Overview: [facility] Screening for diabetes mellitus (DM) 08/10/2014 07/27/2019 Need for lipid screening 08/10/2014 019 Fibromyalgia 05/07/2014 07/27/2019 Other acquired deformity of toe 05/20/2009 07/27/2019 Backache, unspecified 06/19/2008 07/27/2019 Overview: Patient has degenerative disc disease and a slipped disc in her back. The symptoms began July 2011. 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 She sees Dr. Salter at [facility] for both of these issues. Patient has multiple questions regarding anesthesia during delivery due to her back issues. I have asked her to discuss this with Dr. Salter at an upcoming appointment and have him dictate a letter to Dr. Anderson with any concerns he may have. documented as of this encounter (statuses as of 01/28/2023) [facility]04-28-2015 History of Past illness Narrative* Problem Noted Date Resolved Date Attention and concentration deficit 03/19/2015 07/27/2019 Esophageal reflux 02/21/2015 07/27/2019 Routine gynecological examination 08/10/2014 07/27/2019 [facility]DM[facility] 08/10/2014 07/27/2019 Need for lipid screening 08/10/20142 019 Fibromyalgia 05/07/2014 07/27/2019 Other acquired deformity of toe 05/20/2009 07/27/2019 Backache, unspecified 06/19/2008 07/27/2019 Overview: Patient has degenerative disc disease and a slipped disc in her back. The symptoms began July 2011. 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 She sees Dr. Salter at [facility] for both of these issues. Patient has multiple questions regarding anesthesia during delivery due to her back issues. I have asked her to discuss this with Dr. Salter at an upcoming appointment and have him dictate a letter to Dr. Anderson with any concerns he may have. documented as of this encounter (statuses as of 02/06/2023) [facility]04-28-2015 History of Past illness Narrative* Problem Noted Date Resolved Date Attention and concentration deficit 03/19/2015 07/27/2019 Esophageal reflux 02/21/2015 07/27/2019 Routine gynecological examination 08/10/2014 07/27/2019 Overview: [facility] Screening for diabetes mellitus (DM) 08/10/2014 07/27/2019 Need for lipid screening 08/10/2014 019 Fibromyalgia 05/07/2014 07/27/2019 Other acquired deformity of toe 05/20/2009 07/27/2019 Backache, unspecified 06/19/2008 07/27/2019 Overview: Patient has degenerative disc disease and a slipped disc in her back. The symptoms began July 2011. 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 She sees Dr. Salter at [facility] for both of these issues. Patient has multiple questions regarding anesthesia during delivery due to her back issues. I have asked her to discuss this with Dr. Salter at an upcoming appointment and have him dictate a letter to Dr. Anderson with any concerns he may have. documented as of this encounter (statuses as of 02/13/2023) [facility]04-28-2015 History of Past illness Narrative* Problem Noted Date Resolved Date Attention and concentration deficit 03/19/2015 07/27/2019 Esophageal reflux 02/21/2015 07/27/2019 Routine gynecological examination 08/10/2014 07/27/2019 Overview: [facility] Screening for diabetes mellitus (DM) 08/10/2014 07/27/2019 Need for lipid screening 08/10/2014 019 Fibromyalgia 05/07/2014 07/27/2019 Other acquired deformity of toe 05/20/2009 07/27/2019 Backache, unspecified 06/19/2008 07/27/2019 Overview: Patient has degenerative disc disease and a slipped disc in her back. The symptoms began July 2011. 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 She sees Dr. Salter at [facility] for both of these issues. Patient has multiple questions regarding anesthesia during delivery due to her back issues. I have asked her to discuss this with Dr. Salter at an upcoming appointment and have him dictate a letter to Dr. Anderson with any concerns he may have. documented as of this encounter (statuses as of 02/17/2023) [facility]04-28-2015 History of Past illness Narrative* Problem Noted Date Resolved Date Attention and concentration deficit 03/19/2015 07/27/2019 Esophageal reflux 02/21/2015 07/27/2019 Routine gynecological examination 08/10/2014 07/27/2019 Overview: [facility] Screening for diabetes mellitus (DM) 08/10/2014 07/27/2019 Need for lipid screening 08/10/2014 019 Fibromyalgia 05/07/2014 07/27/2019 Other acquired deformity of toe 05/20/2009 07/27/2019 Backache, unspecified 06/19/2008 07/27/2019 Overview: Patient has degenerative disc disease and a slipped disc in her back. The symptoms began July 2011. 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 She sees Dr. Salter at [facility] for both of these issues. Patient has multiple questions regarding anesthesia during delivery due to her back issues. I have asked her to discuss this with Dr. Salter at an upcoming appointment and have him dictate a letter to Dr. Anderson with any concerns he may have. documented as of this encounter (statuses as of 03/04/2023) [facility]04[facility] History of Past illness Narrative* Problem Noted Date Resolved Date Attention and concentration deficit 03/19/2015 07/27/2019 Esophageal reflux 02/21/2015 07/27/2019 Routine gynecological examination 08/10/2014 07/27/2019 Overview: [facility] Screening for diabetes mellitus (DM) 08/10/2014 07/27/2019 Need for lipid screening 08/10/2014 019 Fibromyalgia 05/07/2014 07/27/2019 Other acquired deformity of toe 05/20/2009 07/27/2019 Backache, unspecified 06/19/2008 07/27/2019 Overview: Patient has degenerative disc disease and a slipped disc in her back. The symptoms began July 2011. 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 She sees Dr. Salter at [facility] for both of these issues. Patient has multiple questions regarding anesthesia during delivery due to her back issues. I have asked her to discuss this with Dr. Salter at an upcoming appointment and have him dictate a letter to Dr. Anderson with any concerns he may have. documented as of this encounter (statuses as of 03/29/2023) [facility]04-28-2015 History of Past illness Narrative* Problem Noted Date Resolved Date Attention and concentration deficit 03/19/2015 07/27/2019 Esophageal reflux 02/21/2015 07/27/2019 Routine gynecological examination 08/10/2014 07/27/2019 Overview: [facility] for diabetes mellitus (DM) 08/10/2014 07/27/2019 Need for lipid screening 08/10/2014 019 Fibromyalgia 05/07/2014 07/27/2019 Other acquired deformity of toe 05/20/2009 07/27/2019 Backache, unspecified 06/19/2008 07/27/2019 Overview: Patient has degenerative disc disease and a slipped disc in her back. The symptoms began July 2011. 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 She sees Dr. Salter at [facility] for both of these issues. Patient has multiple questions regarding anesthesia during delivery due to her back issues. I have asked her to discuss this with Dr. Salter at an upcoming appointment and have him dictate a letter to Dr. Anderson with any concerns he may have. documented as of this encounter (statuses as of 04/02/2023) [facility]04[facility] History of Past illness Narrative* Problem Noted Date Resolved Date Attention and concentration deficit 03/19/2015 07/27/2019 Esophageal reflux 02/21/2015 07/27/2019 Routine gynecological examination 08/10/2014 07/27/2019 Overview: [facility] Screening for diabetes mellitus (DM) 08/10/2014 07/27/2019 Need for lipid screening 08/10/2014 019 Fibromyalgia 05/07/2014 07/27/2019 Other acquired deformity of toe 05/20/2009 07/27/2019 Backache, unspecified 06/19/2008 07/27/2019 Overview: Patient has degenerative disc disease and a slipped disc in her back. The symptoms began July 2011. 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 She sees Dr. Salter at [facility] for both of these issues. Patient has multiple questions regarding anesthesia during delivery due to her back issues. I have asked her to discuss this with Dr. Salter at an upcoming appointment and have him dictate a letter to Dr. Anderson with any concerns he may have. documented as of this encounter (statuses as of 04/05/2023) [facility]04[facility] History of Past illness Narrative* Problem Noted Date Resolved Date Attention and concentration deficit 03/19/2015 07/27/2019 Esophageal reflux 02/21/2015 07/27/2019 Routine gynecological examination 08/10/2014 07/27/2019 Overview: [facility] Screening for diabetes mellitus (DM) 08/10/2014 07/27/2019 Need for lipid screening 08/10/2014 019 Fibromyalgia 05/07/2014 07/27/2019 Other acquired deformity of toe 05/20/2009 07/27/2019 Backache, unspecified 06/19/2008 07/27/2019 Overview: Patient has degenerative disc disease and a slipped disc in her back. The symptoms began July 2011. 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 She sees Dr. Salter at [facility] for both of these issues. Patient has multiple questions regarding anesthesia during delivery due to her back issues. I have asked her to discuss this with Dr. Salter at an upcoming appointment and have him dictate a letter to Dr. Anderson with any concerns he may have. documented as of this encounter (statuses as of 04/26/2023) [facility]04-28-2015 History of Past illness Narrative* Problem Noted Date Resolved Date Attention and concentration deficit 03/19/2015 07/27/2019 Esophageal reflux 02/21/2015 07/27/2019 Routine gynecological examination 08/10/2014 07/27/2019 Overview: [facility] Screening for diabetes mellitus (DM) 08/10/2014 07/27/2019 Need for lipid screening 08/10/2014 019 Fibromyalgia 05/07/2014 07/27/2019 Other acquired deformity of toe 05/20/2009 07/27/2019 Backache, unspecified 06/19/2008 07/27/2019 Overview: Patient has degenerative disc disease and a slipped disc in her back. The symptoms began July 2011. 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 She sees Dr. Salter at [facility] for both of these issues. Patient has multiple questions regarding anesthesia during delivery due to her back issues. I have asked her to discuss this with Dr. Salter at an upcoming appointment and have him dictate a letter to Dr. Anderson with any concerns he may have. documented as of this encounter (statuses as of 04/27/2023) [facility]04-28-2015 History of Past illness Narrative* Problem Noted Date Resolved Date Attention and concentration deficit 03/19/2015 07/27/2019 Esophageal reflux 02/21/2015 07/27/2019 Routine gynecological examination 08/10/2014 07/27/2019 Overview: [facility] Screening for diabetes mellitus (DM) 08/10/2014 07/27/2019 Need for lipid screening 08/10/2014 019 Fibromyalgia 05/07/2014 07/27/2019 Other acquired deformity of toe 05/20/2009 07/27/2019 Backache, unspecified 06/19/2008 07/27/2019 Overview: Patient has degenerative disc disease and a slipped disc in her back. The symptoms began July 2011. 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 She sees Dr. Salter at [facility] for both of these issues. Patient has multiple questions regarding anesthesia during delivery due to her back issues. I have asked her to discuss this with Dr. Salter at an upcoming appointment and have him dictate a letter to Dr. Anderson with any concerns he may have. documented as of this encounter (statuses as of 04/28/2023) [facility]04-28-2015 History of Past illness Narrative* Problem Noted Date Diagnosed Date Resolved Date Attention and concentration deficit 03/19/2015 07/27/2019 Esophageal reflux 02/21/2015 07/27/2019 Routine gynecological examination 08/10/2014 07/27/2019 Overview: [facility] Screening for diabetes mellitus (DM) 08/10/2014 07/27/2019 Need for lipid screening 08/10/201403/2019 Fibromyalgia 05/07/2014 07/27/2019 Other acquired deformity of toe 05/20/2009 07/27/2019 Backache, unspecified 06/19/20082018 Overview: Patient has degenerative disc disease and a slipped disc in her back. The symptoms began July 2011. 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 She sees Dr. Salter at [facility] for both of these issues. Patient has multiple questions regarding anesthesia during delivery due to her back issues. I have asked her to discuss this with Dr. Salter at an upcoming appointment and have him dictate a letter to Dr. Anderson with any concerns he may have. documented as of this encounter (statuses as of 06/08/2023) [facility]04-28-2015 History of Past illness Narrative* Problem Noted Date Diagnosed Date Resolved Date Attention and concentration deficit 03/19/2015 07/27/2019 Esophageal reflux 02/21/2015 07/27/2019 Routine gynecological examination 08/10/2014 07/27/2019 Overview: [facility] Screening for diabetes mellitus (DM) 08/10/2014 07/27/2019 Need for lipid screening 08/10/201403/2019 Fibromyalgia 05/07/2014 07/27/2019 Other acquired deformity of toe 05/20/2009 07/27/2019 Backache, unspecified 06/19/20082018 Overview: Patient has degenerative disc disease and a slipped disc in her back. The symptoms began July 2011. 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 She sees Dr. Salter at [facility] for both of these issues. Patient has multiple questions regarding anesthesia during delivery due to her back issues. I have asked her to discuss this with Dr. Salter at an upcoming appointment and have him dictate a letter to Dr. Anderson with any concerns he may have. documented as of this encounter (statuses as of 07/09/2023) [facility]04-28-2015 History of Past illness Narrative* Problem Noted Date Diagnosed Date Resolved Date Attention and concentration deficit 03/19/2015 07/27/2019 Esophageal reflux 02/21/2015 07/27/2019 Routine gynecological examination 08/10/2014 07/27/2019 Overview: [facility] for diabetes mellitus (DM) 08/10/2014 07/27/2019 Need for lipid screening 08/10/201403/2019 Fibromyalgia 05/07/2014 07/27/2019 Other acquired deformity of toe 05/20/2009 07/27/2019 Backache, unspecified 06/19/20082018 Overview: Patient has degenerative disc disease and a slipped disc in her back. The symptoms began July 2011. 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 She sees Dr. Salter at [facility] for both of these issues. Patient has multiple questions regarding anesthesia during delivery due to her back issues. I have asked her to discuss this with Dr. Salter at an upcoming appointment and have him dictate a letter to Dr. Anderson with any concerns he may have. documented as of this encounter (statuses as of 09/16/2023) [facility]04-28-2015 History of Past illness Narrative* Problem Noted Date Diagnosed Date Resolved Date Attention and concentration deficit 03/19/2015 07/27/2019 Esophageal reflux 02/21/2015 07/27/2019 Routine gynecological examination 08/10/2014 07/27/2019 Overview: [facility] Screening for diabetes mellitus (DM) 08/10/2014 07/27/2019 Need for lipid screening 08/10/201403/2019 Fibromyalgia 05/07/2014 07/27/2019 Other acquired deformity of toe 05/20/2009 07/27/2019 Backache, unspecified 06/19/20082018 Overview: Patient has degenerative disc disease and a slipped disc in her back. The symptoms began July 2011. 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 She sees Dr. Salter at [facility] for both of these issues. Patient has multiple questions regarding anesthesia during delivery due to her back issues. I have asked her to discuss this with Dr. Salter at an upcoming appointment and have him dictate a letter to Dr. Anderson with any concerns he may have. documented as of this encounter (statuses as of 09/16/2023) [facility]04-28-2015 History of Past illness Narrative* Problem Noted Date Diagnosed Date Resolved Date Attention and concentration deficit 03/19/2015 07/27/2019 Esophageal reflux 02/21/2015 07/27/2019 Routine gynecological examination 08/10/2014 07/27/2019 Overview: [facility] Screening for diabetes mellitus (DM) 08/10/2014 07/27/2019 Need for lipid screening 08/10/201403/2019 Fibromyalgia 05/07/2014 07/27/2019 Other acquired deformity of toe 05/20/2009 07/27/2019 Backache, unspecified 06/19/20082018 Overview: Patient has degenerative disc disease and a slipped disc in her back. The symptoms began July 2011. 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 She sees Dr. Salter at [facility] for both of these issues. Patient has multiple questions regarding anesthesia during delivery due to her back issues. I have asked her to discuss this with Dr. Salter at an upcoming appointment and have him dictate a letter to Dr. Anderson with any concerns he may have. documented as of this encounter (statuses as of 09/26/2023) [facility]04-28-2015 History of Past illness Narrative* Problem Noted Date Diagnosed Date Resolved Date Attention and concentration deficit 03/19/2015 07/27/2019 Esophageal reflux 02/21/2015 07/27/2019 Routine gynecological examination 08/10/2014 07/27/2019 Overview: [facility] Screening for diabetes mellitus (DM) 08/10/2014 07/27/2019 Need for lipid screening 08/10/201403/2019 Fibromyalgia 05/07/2014 07/27/2019 Other acquired deformity of toe 05/20/2009 07/27/2019 Backache, unspecified 06/19/20082018 Overview: Patient has degenerative disc disease and a slipped disc in her back. The symptoms began July 2011. 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 She sees Dr. Salter at [facility] for both of these issues. Patient has multiple questions regarding anesthesia during delivery due to her back issues. I have asked her to discuss this with Dr. Salter at an upcoming appointment and have him dictate a letter to Dr. Anderson with any concerns he may have. documented as of this encounter (statuses as of 10/04/2023) [facility]04-28-2015 History of Past illness Narrative* Problem Noted Date Diagnosed Date Resolved Date Attention and concentration deficit 03/19/2015 07/27/2019 Esophageal reflux 02/21/2015 07/27/2019 Routine gynecological examination 08/10/2014 07/27/2019 Overview: [facility] Screening for diabetes mellitus (DM) 08/10/2014 07/27/2019 Need for lipid screening 08/10/201403/2019 Fibromyalgia 05/07/2014 07/27/2019 Other acquired deformity of toe 05/20/2009 07/27/2019 Backache, unspecified 06/19/20082018 Overview: Patient has degenerative disc disease and a slipped disc in her back. The symptoms began July 2011. 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 She sees Dr. Salter at [facility] for both of these issues. Patient has multiple questions regarding anesthesia during delivery due to her back issues. I have asked her to discuss this with Dr. Salter at an upcoming appointment and have him dictate a letter to Dr. Anderson with any concerns he may have. documented as of this encounter (statuses as of 11/06/2023) [facility]04-28-2015 History of Past illness Narrative* Problem Noted Date Diagnosed Date Resolved Date Attention and concentration deficit 03/19/2015 07/27/2019 Esophageal reflux 02/21/2015 07/27/2019 Routine gynecological examination 08/10/2014 07/27/2019 [facility] 08/10/2014 07/27/2019 Need for lipid screening 08/10/201403/2019 Fibromyalgia 05/07/2014 07/27/2019 Other acquired deformity of toe 05/20/2009 07/27/2019 Backache, unspecified 06/19/20082018 Overview: Patient has degenerative disc disease and a slipped disc in her back. The symptoms began July 2011. 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 She sees Dr. Salter at [facility] for both of these issues. Patient has multiple questions regarding anesthesia during delivery due to her back issues. I have asked her to discuss this with Dr. Salter at an upcoming appointment and have him dictate a letter to Dr. Anderson with any concerns he may have. documented as of this encounter (statuses as of 01/03/2024) [facility]04-28-2015 History of Past illness Narrative* Problem Noted Date Diagnosed Date Resolved Date Attention and concentration deficit 03/19/2015 07/27/2019 Esophageal reflux 02/21/2015 07/27/2019 Routine gynecological examination 08/10/2014 07/27/2019 [facility] (DM[facility] 08/10/2014 07/27/2019 Need for lipid screening 08/10/201403/2019 Fibromyalgia 05/07/2014 07/27/2019 Other acquired deformity of toe 05/20/2009 07/27/2019 Backache, unspecified 06/19/20082018 Overview: Patient has degenerative disc disease and a slipped disc in her back. The symptoms began July 2011. 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 She sees Dr. Salter at [facility] for both of these issues. Patient has multiple questions regarding anesthesia during delivery due to her back issues. I have asked her to discuss this with Dr. Salter at an upcoming appointment and have him dictate a letter to Dr. Anderson with any concerns he may have. documented as of this encounter (statuses as of 01/07/2024) [facility]04-28-2015 History of Past illness Narrative* Problem Noted Date Diagnosed Date Resolved Date Attention and concentration deficit 03/19/2015 07/27/2019 Esophageal reflux 02/21/2015 07/27/2019 Routine gynecological examination 08/10/2014 07/27/2019 Overview: [facility] for diabetes mellitus (DM) 08/10/2014 07/27/2019 Need for lipid screening 08/10/201403/2019 Fibromyalgia 05/07/2014 07/27/2019 Other acquired deformity of toe 05/20/2009 07/27/2019 Backache, unspecified 06/19/20082018 Overview: Patient has degenerative disc disease and a slipped disc in her back. The symptoms began July 2011. 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 She sees Dr. Salter at [facility] for both of these issues. Patient has multiple questions regarding anesthesia during delivery due to her back issues. I have asked her to discuss this with Dr. Salter at an upcoming appointment and have him dictate a letter to Dr. Anderson with any concerns he may have. documented as of this encounter (statuses as of 01/07/2024) [facility]04-28-2015 History of Past illness Narrative* Problem Noted Date Diagnosed Date Resolved Date Attention and concentration deficit 03/19/2015 07/27/2019 Esophageal reflux 02/21/2015 07/27/2019 Routine gynecological examination 08/10/2014 07/27/2019 Overview: [facility] Screening for diabetes mellitus (DM) 08/10/2014 07/27/2019 Need for lipid screening 08/10/201403/2019 Fibromyalgia 05/07/2014 07/27/2019 Other acquired deformity of toe 05/20/2009 07/27/2019 Backache, unspecified 06/19/20082018 Overview: Patient has degenerative disc disease and a slipped disc in her back. The symptoms began July 2011. 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 She sees Dr. Salter at [facility] for both of these issues. Patient has multiple questions regarding anesthesia during delivery due to her back issues. I have asked her to discuss this with Dr. Salter at an upcoming appointment and have him dictate a letter to Dr. Anderson with any concerns he may have. documented as of this encounter (statuses as of 01/13/2024) [facility]04-28-2015 History of Past illness Narrative* Problem Noted Date Diagnosed Date Resolved Date Attention and concentration deficit 03/19/2015 07/27/2019 Esophageal reflux 02/21/2015 07/27/2019 Routine gynecological examination 08/10/2014 07/27/2019 Overview: [facility] Screening for diabetes mellitus (DM) 08/10/2014 07/27/2019 Need for lipid screening 08/10/201403/2019 Fibromyalgia 05/07/2014 07/27/2019 Other acquired deformity of toe 05/20/2009 07/27/2019 Backache, unspecified 06/19/20082018 Overview: Patient has degenerative disc disease and a slipped disc in her back. The symptoms began July 2011. 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 She sees Dr. Salter at [facility] for both of these issues. Patient has multiple questions regarding anesthesia during delivery due to her back issues. I have asked her to discuss this with Dr. Salter at an upcoming appointment and have him dictate a letter to Dr. Anderson with any concerns he may have. 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 Malignant neoplasm of thyroid gland Sialoadenitis of submandibular gland Sialoadenitis documented in this encounter [facility] note* Diagnosis Sialadenitis- Primary Sialoadenitis documented in this encounter [facility] note* Diagnosis SI (sacroiliac) joint dysfunction- Primary Disorders of sacrum Lumbar degenerative disc disease Degeneration of lumbar or lumbosacral intervertebral disc documented in this encounter [facility] note* Diagnosis SI (sacroiliac) joint dysfunction- Primary Disorders of sacrum Sacroiliitis, not elsewhere classified (HCC) Sacroiliitis, not elsewhere classified documented in this encounter [facility] note* Diagnosis Sialadenitis Sialoadenitis documented in this encounter [facility] note* Diagnosis SI (sacroiliac) joint dysfunction- Primary Disorders of sacrum Sacroiliitis, not elsewhere classified (HCC) Sacroiliitis, not elsewhere classified SI (sacroiliac) joint dysfunction Disorders of sacrum Sacroiliitis, not elsewhere classified (HCC) Sacroiliitis, not elsewhere classified documented in this encounter [facility] note* Diagnosis SI (sacroiliac) joint dysfunction- Primary Disorders of sacrum Sacroiliitis, not elsewhere classified (HCC) Sacroiliitis, not elsewhere classified documented in this encounter [facility] note* Diagnosis Sialadenitis- Primary Sialoadenitis documented in this encounter [facility] note* Diagnosis SI (sacroiliac) joint dysfunction- Primary Disorders of sacrum Sacroiliitis, not elsewhere classified (HCC) Sacroiliitis, not elsewhere classified SI (sacroiliac) joint dysfunction Disorders of sacrum Sacroiliitis, not elsewhere classified (HCC) Sacroiliitis, not elsewhere classified [facility]* Diagnosis Hypertension, essential- Primary Unspecified essential hypertension Weight gain Abnormal weight gain Primary thyroid papillary carcinoma (HCC) Malignant neoplasm of thyroid gland Encounter for lipid screening for cardiovascular disease Screening for lipoid disorders Screening for diabetes mellitus SI (sacroiliac) joint dysfunction Disorders of sacrum Sacroiliitis, not elsewhere classified (HCC) Sacroiliitis, not elsewhere classified documented in this encounter [facility] note* Diagnosis SI (sacroiliac) joint dysfunction Disorders of sacrum Lumbar degenerative disc disease Degeneration of lumbar or lumbosacral intervertebral disc documented [facility] this [facility]* Diagnosis 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 Postsurgical hypothyroidism Sialoadenitis of submandibular gland Sialoadenitis [facility] Diagnosis Bloating- Primary Flatulence, eructation, and gas pain documented in this encounter [facility] note* Diagnosis SI (sacroiliac) joint dysfunction Disorders of sacrum Lumbar degenerative disc disease Degeneration of lumbar or lumbosacral intervertebral disc documented in this encounter [facility] note* Diagnosis Lumbar degenerative disc disease- Primary Degeneration of lumbar or lumbosacral intervertebral disc SI (sacroiliac) joint dysfunction Disorders of sacrum Sacroiliitis, not elsewhere classified (HCC) Sacroiliitis, not elsewhere classified [facility]* Diagnosis Bacterial sinusitis- Primary Unspecified sinusitis (chronic) documented in this encounter [facility] note* Diagnosis Lumbar degenerative disc disease- Primary Degeneration of lumbar or lumbosacral intervertebral disc SI (sacroiliac) joint dysfunction Disorders of sacrum Sacroiliitis, not elsewhere classified (HCC) Sacroiliitis, not elsewhere classified SI (sacroiliac) joint dysfunction Disorders of sacrum Sacroiliitis, not elsewhere classified (HCC) Sacroiliitis, not elsewhere classified documented in this encounter [facility] note* Diagnosis SI (sacroiliac) joint dysfunction Disorders of sacrum Lumbar degenerative disc disease Degeneration of lumbar or lumbosacral intervertebral disc documented [facility]* Diagnosis Hypertension, essential- Primary Unspecified essential [...] for diabetes mellitus [facility] Diagnosis Post-surgical hypothyroidism- Primary Postsurgical hypothyroidism Adverse effect of treatment, subsequent encounter Adverse effect of treatment, initial encounter [facility] Diagnosis SI (sacroiliac) joint dysfunction Disorders of sacrum Lumbar degenerative disc disease Degeneration of lumbar or lumbosacral intervertebral disc [facility] Diagnosis SI (sacroiliac) joint dysfunction- Primary Disorders of sacrum Sacroiliitis, not elsewhere classified (HCC) Sacroiliitis, not elsewhere classified SI (sacroiliac) joint dysfunction Disorders of sacrum Sacroiliitis, not elsewhere classified (HCC) Sacroiliitis, not elsewhere classified [facility] Diagnosis Spinal stenosis of lumbar region, unspecified whether neurogenic claudication present- Primary SI (sacroiliac) joint dysfunction Disorders of sacrum Lumbar degenerative disc disease Degeneration of lumbar or lumbosacral intervertebral disc [facility] Diagnosis SI (sacroiliac) joint dysfunction- Primary Disorders of sacrum SI (sacroiliac) joint dysfunction Disorders of sacrum [facility] Diagnosis Adverse effect of treatment, initial encounter SI (sacroiliac) joint dysfunction Disorders of sacrum [facility] Diagnosis Sore throat- Primary Acute pharyngitis Bronchitis Bronchitis, not specified as acute or chronic Lower resp. tract infection Other diseases of respiratory system, not elsewhere classified SI (sacroiliac) joint dysfunction Disorders of sacrum [facility] Diagnosis Plantar wart of left foot- Primary Plantar wart SI (sacroiliac) joint dysfunction Disorders of sacrum [facility] Diagnosis Sore throat- Primary Acute pharyngitis URI, acute Acute upper respiratory infections of unspecified site [facility] Diagnosis Otalgia of both ears- Primary Otalgia, unspecified Flu Influenza with other respiratory manifestations [facility]* Diagnosis SI (sacroiliac) joint dysfunction- Primary Disorders of sacrum Lumbar degenerative disc disease Degeneration of lumbar or lumbosacral intervertebral disc Spinal stenosis of lumbar region, unspecified whether neurogenic claudication present [facility] Diagnosis Tinnitus of right ear- Primary Unspecified tinnitus Right ear pain Otalgia, unspecified Neoplasm of uncertain behavior of skin of back Neoplasm of uncertain behavior of skin [facility] Diagnosis SI (sacroiliac) joint dysfunction- Primary Disorders of sacrum SI (sacroiliac) joint dysfunction Disorders of sacrum documented in this encounter [facility] note* Diagnosis Post-surgical hypothyroidism- Primary Postsurgical hypothyroidism Hypertension, essential Unspecified essential hypertension Vitamin D deficiency Unspecified vitamin D deficiency Encounter for screening for diabetes mellitus Screening for diabetes mellitus SI (sacroiliac) joint dysfunction Disorders of sacrum documented in this encounter [facility] note* Diagnosis Hypertension, essential- Primary Unspecified [...] [facility] Diagnosis Exercise-induced asthma Exercise induced bronchospasm SOB (shortness of breath) Shortness of breath SI (sacroiliac) joint dysfunction Disorders of sacrum [facility]* Diagnosis 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 Postsurgical [facility] Pain in left lower leg- Primary Pain in left lower leg SI (sacroiliac) joint dysfunction Disorders of sacrum documented [facility]* Diagnosis Pain in left lower leg SI (sacroiliac) joint dysfunction Disorders of sacrum documented in [facility]* Diagnosis Spinal stenosis of lumbar region, unspecified whether neurogenic claudication present- Primary Radiculopathy, lumbar region Thoracic or lumbosacral neuritis or radiculitis, unspecified SI (sacroiliac) joint dysfunction Disorders of sacrum [facility] Diagnosis Spinal stenosis of lumbar region, unspecified whether neurogenic claudication present- Primary SI (sacroiliac) joint dysfunction Disorders of sacrum Radiculopathy, lumbar region Thoracic or lumbosacral neuritis or radiculitis, unspecified documented in this encounter [facility]* Diagnosis Neoplasm of uncertain behavior of skin of back- Primary Neoplasm of uncertain behavior of skin Dermatofibroma Benign neoplasm of skin, site unspecified documented in this [facility]* Diagnosis Dermatofibroma- Primary Benign neoplasm of skin, site unspecified documented [facility]* Diagnosis Preoperative examination- Primary Preoperative examination, [...] lumbosacral intervertebral disc [facility] Diagnosis Preoperative examination- Primary Preoperative examination, [...] injury, initial encounter documented in this encounter [facility]* Diagnosis Preoperative examination- Primary Preoperative examination, [...] of unspecified site [facility] Diagnosis Preoperative examination- Primary Preoperative examination, [...] related to employment documented [facility] Diagnosis Preoperative examination- Primary Preoperative examination, [...] discogenic back pain [facility] Diagnosis Preoperative examination- Primary Preoperative examination, [...] Disorders of sacrum [facility] Diagnosis Preoperative examination- Primary Preoperative examination, [...] Disorders of sacrum documented [facility] Diagnosis Preoperative examination- Primary Preoperative examination, [...] Disorders of sacrum [facility] Diagnosis Preoperative examination- Primary Preoperative examination, [...] Disorders of sacrum documented [facility]* Diagnosis Preoperative examination- Primary Preoperative examination, [...] Disorders of sacrum documented [facility]* Diagnosis Preoperative examination- Primary Preoperative examination, [...] discogenic back pain [facility] Diagnosis Preoperative examination- Primary Preoperative examination, [...] Mixed headache Headache [facility] Diagnosis Preoperative examination- Primary Preoperative [...] Unspecified sinusitis (chronic) documented in this [facility] Diagnosis Preoperative examination- Primary Preoperative examination, [...] discogenic back pain [facility] Diagnosis Preoperative examination- Primary Preoperative [...] Disorders of sacrum [facility] Diagnosis Preoperative examination- Primary Preoperative [...] Disorders of sacrum documented [facility]* Diagnosis Preoperative examination- Primary Preoperative examination, [...] Disorders of sacrum documented [facility] Diagnosis Preoperative examination- Primary Preoperative examination, [...] Unspecified pleural effusion documented [facility] this [facility] Diagnosis Preoperative examination- Primary Preoperative examination, [...] Unspecified pleural effusion documented [facility]* Diagnosis Preoperative examination- Primary Preoperative examination, [...] by physician- Primary documented [facility] Diagnosis Preoperative examination- Primary Preoperative examination, [...] Proteinuria, unspecified type documented [facility] this [facility] Diagnosis Preoperative examination- Primary Preoperative examination, [...] Calculus of kidney documented in this [facility] Diagnosis Preoperative examination- Primary Preoperative examination, [...] Calculus of kidney documented [facility] Diagnosis Preoperative examination- Primary Preoperative [...] pain, unspecified site documented [facility] this [facility] Diagnosis Preoperative examination- Primary Preoperative examination, [...] Hematuria, unspecified type documented [facility] Diagnosis Preoperative examination- Primary Preoperative examination, [...] Disorders of sacrum [facility] Diagnosis Preoperative examination- Primary Preoperative [...] urine Bilateral nephrolithiasis documented in this encounter [facility] note* Diagnosis Preoperative examination- Primary Preoperative [...] disorder Bilateral nephrolithiasis documented in this encounter [facility] note* Diagnosis Preoperative examination- Primary Preoperative [...] pain, unspecified site documented [facility] this [facility]* Diagnosis Encounter for follow-up- Primary [facility] Diagnosis 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 Postsurgical hypothyroidism Sialoadenitis [facility] Diagnosis Preoperative examination- Primary Preoperative examination, [...] Other abnormal glucose documented [facility] this [facility]* Diagnosis Preoperative examination- Primary Preoperative examination, [...] Disorders of sacrum documented [facility]* Diagnosis Preoperative examination- Primary Preoperative examination, [...] Disorders of sacrum [facility] Diagnosis Preoperative examination- Primary Preoperative examination, [...] Disorders of sacrum [facility] Diagnosis Preoperative examination- Primary Preoperative [...] Disorders of sacrum [facility] Consultation (Routine) - New Request Specialty Diagnoses / Procedures Referred By Kin samuel Referred To Contact Otolaryngology Diagnoses Sialoadenitis of submandibular gland Caitlyn Rivera MD [address] [place] [address] Osvaldo Tapia MD [address] [place] [address] Referral ID Status Reason Start Date Expiration Date V isits Requested Visits Authorized [id number] New Request 03/18/2022 04/12/2023 1 1 * Radiology (Routine) - New Request Specialty Diagnoses / Procedures Referred By Kin samuel Referred To Contact Diagnoses Papillary thyroid carcinoma Procedures [facility] Caitlyn Rivera MD [address] [place] [address] Referral ID Status Reason Start Date Expiration Date V isits Requested Visits Authorized [id number] New Request 03/18/2022 04/12/2023 1 1 [facility] for referral (narrative)* Outpatient Procedure (Routine) - Authorized Specialty Diagnoses / Procedures Referred By Contac t Referred To Contact [facility] Diagnoses Exercise-induced asthma SOB (shortness of breath) Procedures SPIROMETRY - BASELINE AND POST DILATOR BRNCDILAT RSPSE SPMTRY PRE&POST-BRNCDILAT ADMN Nagi Red MD [address] [place] [address] [facility] [place] [address] [place] [address] Referral ID Status Reason Start Date Expiration Date Visits Requested Visits Authorized [id number] Authorized Auto-Generat ed Referral 04/25/2024 05/25/2025 1 1 * Consult, Test, Treat (Routine) - Authorized Specialty Diagnoses / Procedures Referred By Kin t Referred To Contact Urology Diagnoses Renal stones Procedures CONSULT TO UROLOGY OFFICE/OUTPATIENT [facility] 60 MINUTES Nagi Red MD [address] [place] [address] Referral ID Status Reason Start Date Expiration Date Visits Requested Visits Authorized [id number] Authorized PCP Requested Referral 04/25/2024 04/25/2025 1 1 * Consult, Test, Treat (Routine) - Authorized Specialty Diagnoses / Procedures [facility] Referred To Contact Diagnoses Encounter for gynecological examination Procedures CONSULT TO [facility]OKER IN CHARGE OFFICE/OUTPATIENT [facility] 60 MINUTES Nagi Red MD [address] [place] [address] Referral ID Status Reason Start Date Expiration Date Visits Requested Visits Authorized [id number] Authorized PCP Requested Referral Auto-Generate d Referral 04/25/2024 04/25/2025 1 1 [facility] for referral (narrative)* Diagnostic Procedure Only (Urgent) - Closed Specialty Diagnoses / Procedures Referred By Contac t Referred To Contact US IMAGING Diagnoses Pain in left lower leg Procedures US DVT LOWER LEFT DUP-SCAN XTR VEINS UNILATERAL/LIMITED STUDY YasmeenlogSakshi lan APRN.METAL DRILL OPERATOR [address] [place] [address] [place] [address] Referral ID Status Reason Start Date Expiration Date V isits Requested Visits Authorized [id number] Closed Auto-Generate d Referral 05/12/2024 06/11/2025 1 1 [facility] for referral (narrative)* Diagnostic Procedure Only (Urgent) - Closed Specialty Diagnoses / Procedures Referred By Contac t Referred To Contact US IMAGING Diagnoses Pain in left lower leg Procedures US DVT LOWER LEFT DUP-SCAN XTR VEINS UNILATERAL/LIMITED STUDY YasmeenlogSakshi lan APRN.METAL DRILL OPERATOR [address] [place] [address] [place] [address] Referral ID Status Reason Start Date Expiration Date V isits Requested Visits Authorized [id number] Closed Auto-Generate d Referral 05/12/2024 06/11/2025 1 1 [facility] for referral (narrative)* Diagnostic Procedure Only (Routine) - Closed Specialty Diagnoses / Procedures Referred By Contac t Referred To Contact XR IMAGING Diagnoses Lumbar degenerative disc disease Procedures XR LUMBAR PARS DEFECT 4V AP/LAT/BOTH OBL RADEX SPINE LUMBOSACRAL MINIMUM 4 VIEWS Carlie Brownlee, COMPENSATION SUPERVISOR.METAL DRILL OPERATOR [address] [place] [address] [place] [address] Referral ID Status Reason Start Date Expiration Date V isits Requested Visits Authorized [id number] Closed Auto-Generate d Referral 03/01/2023 03/30/2024 1 1 [facility] for referral (narrative)* Diagnostic Procedure Only (Urgent) - Closed Specialty Diagnoses / Procedures Referred By Contac t Referred To Contact XR IMAGING Diagnoses Left ankle injury, initial encounter Procedures XR ANKLE GENERAL 3V AP/LAT/OBL LT X-RAY ANKLE MINIMUM 3 VIEWS Tori Michael PA-C [address] [place] [address] [place] [address] Referral ID Status Reason Start Date Expiration Date V isits Requested Visits Authorized [id number] Closed Auto-Generate d Referral 07/17/2021 08/16/2022 1 1 [facility] for visit Narrative* Diagnostic Procedure Only (Urgent) - Closed Specialty Diagnoses / Procedures Referred By Contac t Referred To Contact US IMAGING Diagnoses Pain in left lower leg Procedures US DVT LOWER LEFT DUP-SCAN XTR VEINS UNILATERAL/LIMITED STUDY PodlogarSakshi COMPENSATION SUPERVISOR.METAL DRILL OPERATOR [address] [place] [address] [place] [address] Referral ID Status Reason Start Date Expiration Date V isits Requested Visits Authorized [id number] Closed Auto-Generate d Referral 05/12/2024 06/11/2025 1 1 [facility] for visit Narrative* Diagnostic Procedure Only (Routine) - Closed Specialty Diagnoses / Procedures Referred By Contac t Referred To Contact XR IMAGING Diagnoses Lumbar degenerative disc disease Procedures XR LUMBAR PARS DEFECT 4V AP/LAT/BOTH OBL RADEX SPINE LUMBOSACRAL MINIMUM 4 VIEWS Carlie Brownlee, COMPENSATION SUPERVISOR.METAL DRILL OPERATOR [address] [place] [address] [place] [address] Referral ID Status Reason Start Date Expiration Date V isits Requested Visits Authorized [id number] Closed Auto-Generate d Referral 03/01/2023 03/30/2024 1 1 [facility] for visit Narrative* Diagnostic Procedure Only (Urgent) - Closed Specialty Diagnoses / Procedures Referred By Contac t Referred To Contact XR IMAGING Diagnoses Left ankle injury, initial encounter Procedures XR ANKLE GENERAL 3V AP/LAT/OBL LT X-RAY ANKLE MINIMUM 3 VIEWS Tori Michael PA-C [address] [place] [address] [place] [address] Referral ID Status Reason Start Date Expiration Date V isits Requested Visits Authorized Closed Auto-Generate d Referral 07/17/2021 08/16/2022 [address] [facility] MRI/CT (Urgent) - Pending Review Specialty Diagnoses / Procedures Referred By Contac t Referred To Contact CT IMAGING Diagnoses Bilateral nephrolithiasis Procedures CT FLANK WO IVCON CT ABD & PELVIS W/O CONTRAST Greta Templeton, DO [address] [place] [address] Phone: tel: fax: [place] [address] Referral ID Status Reason Start Date Expiration Date Visits Requested Visits Authorized [id number] Pending Review Auto-Generate d Referral Clearance Not Met -Financial Clearance Bypassed or Pt Declined to Pay 06/15/2025 07/15/2026 [address] [facility] Summary Purpose Family History No Family History Records FoundNo Family History Records FoundNo Family History Records FoundNo Family History Records FoundNo Family History Records FoundNo Family History Records FoundNo Family History Records FoundNo Family History Records FoundNo Family History Records FoundNo Family History Records FoundNo Family History Records Found Advance Directives No Advanced Directives Records FoundDocuments on File Type Date Recorded Patient Security Researcher Expl anation Advance Directive(s) Advance Directive(s) 12/16/2021 [...] Documents on File Type Date Recorded Patient Security Researcher Expl anation Advance Directive(s) Advance Directive(s) 05/01/2022 [...] Documents on File Type Date Recorded Patient Security Researcher Expl anation Advance Directive(s) Advance Directive(s) 05/21/2022 [...] Documents on File Type Date Recorded Patient Security Researcher Expl anation Advance Directive(s) Advance Directive(s) 06/04/2022 [...] Documents on File Type Date Recorded Patient Security Researcher Expl anation Advance Directive(s) 07/27/2019 10:42 AM Documents on File Type Date Recorded Patient Security Researcher Expl anation Advance Directive(s) 07/27/2019 10:42 AM [...] MRI SIALOGRAM MO MRI, FACE, NECK, COMBO Valedmundo, Carol Barrett, COMPENSATION SUPERVISOR-METAL DRILL OPERATOR [address] [place] [address] Referral ID Status Reason Start Date Expiration Date Visits Requested Visits Authorized [id number] Authorized - Bimal 03/26/2022 04/20/2023 1 1 Referral ID Status Reason Start Date Expiration Date Visits Re quested Visits Authorized [id number] Closed 03/26/2022 04/20/2023 1 1 Specialty Diagnoses / Procedures Referred By Contac t Referred To Contact Christine Dean PA-C [address] [place] [address] Referral ID Status Reason Start Date Expiration Date Visits Re quested Visits Authorized [id number] Closed 1 1 Specialty Diagnoses / Procedures Referred By Contac t Referred To Contact Diagnoses Papillary thyroid carcinoma Procedures [facility] Caitlyn Rivera MD [address] [place] [place] [address] Referral ID Status Reason Start Date Expiration Date V isits Requested Visits Authorized [id number] New Request 09/16/2022 10/11/2023 1 1 Specialty Diagnoses / Procedures Referred By Contac t Referred To Contact Gastroenterology Diagnoses Bloating Procedures CONSULT TO GASTROENTEROLOGY OFFICE/OUTPATIENT NEW HIGH MDM 60-74 MINUTES Christine Dean PA-C [address] [place] [address] Referral ID Status Reason Start Date Expiration Date Visits Requested Visits Authorized [id number] Authorized PCP Requested Referral 2 10/12/2023 1 1 Specialty Diagnoses / Procedures Referred By Contac t Referred To Contact CT IMAGING Diagnoses Adverse effect of treatment, initial encounter Procedures CTA CHEST (NONGATED) W IVCON CT ANGIOGRAPHY CHEST W/CONTRAST/NONCONTRAST Renard Almodovar APRN.METAL DRILL OPERATOR [address] [place] [address] Ct Imaging Referral ID Status Reason Start Date Expiration Date Visits Requested Visits Authorized [id number] Waiting for Online Response Auto-Genera ciro Referral Patient Cleared - Admin/Chair man/Directo r advise to proceed 04/27/2023 05/26/2024 1 1 Specialty Diagnoses / Procedures Referred By Contac t Referred To Contact CT IMAGING Diagnoses Adverse effect of treatment, initial encounter Procedures CTA NECK W IVCON CT ANGIOGRAPHY NECK W/CONTRAST/NONCONTRAST Renard Almodovar APRN.METAL DRILL OPERATOR [address] [place] [address] Ct Imaging Referral ID Status Reason Start Date Expiration Date Visits Requested Visits Authorized [id number] Additional Clinical Info Needed Auto-Genera ciro Referral Patient Cleared - Admin/Chair man/Directo r advise to proceed 04/27/2023 05/26/2024 1 1 Specialty Diagnoses / Procedures Referred By Contac t Referred To Contact CT IMAGING Diagnoses Adverse effect of treatment, initial encounter Procedures CTA NECK W IVCON CT ANGIOGRAPHY NECK W/CONTRAST/NONCONTRAST Renard Almodovar, COMPENSATION SUPERVISOR.METAL DRILL OPERATOR [address] [place] [address] [place] [address] Referral ID Status Reason Start Date Expiration Date V isits Requested Visits Authorized [id number] Denied Auto-Generat ed Referral Patient Cleared - Admin/Chairm an/Director advise to proceed or did not respond 04/27/2023 06/26/2023 1 0 Specialty Diagnoses / Procedures Referred By Contac t Referred To Contact Ent - Otolaryngology Diagnoses Tinnitus of right ear Right ear pain Procedures CONSULT TO ENT OFFICE/OUTPATIENT [facility] 60 MINUTES Nagi Red MD [address] [place] [address] Referral ID Status Reason Start Date Expiration Date Visits Requested Visits Authorized [id number] Authorized PCP Requested Referral 03/25/2024 03/25/2025 1 1 Referral ID Status Reason Start Date Expiration Date V isits Requested Visits Authorized [id number] New Request 05/01/2024 05/26/2025 1 1 Specialty Diagnoses / Procedures Referred By Contac t Referred To Contact MR IMAGING Diagnoses Spinal stenosis of lumbar region, unspecified whether neurogenic claudication present Radiculopathy, lumbar region Spinal stenosis of lumbar region with neurogenic claudication Procedures MRI LUMBAR SPINE WO IVCON MRI SPINAL CANAL LUMBAR W/O CONTRAST MATERIAL Carlie Brownlee, COMPENSATION SUPERVISOR.METAL DRILL OPERATOR [address] [place] [address] [place] [address] Referral ID Status Reason Start Date Expiration Date Visits Requested Visits Authorized [id number] Pending Review Auto-Generat ed Referral 05/16/2024 06/14/2025 1 1 Specialty Diagnoses / Procedures Referred By Contac t Referred To Contact MR IMAGING Diagnoses Migraine without aura and without status migrainosus, not intractable Procedures MRI BRAIN WO IVCON MRI BRAIN BRAIN STEM W/O CONTRAST MATERIAL Renard Almodovar APRN.METAL DRILL OPERATOR [address] [place] [address] [place] [address] Referral ID Status Reason Start Date Expiration Date Visits Requested Visits Authorized [id number] Authorized Auto-Generat ed Referral 12/15/2024 01/14/2026 1 [...] section and content) DATE CREATED AUTHOR 01/25/[address] [facility] DATE CREATED AUTHOR AUTHOR'S ORGANIZ ATION 05/01/2020 [facility] DATE CREATED AUTHOR AUTHOR'S ORGANIZ ATION 02/09/[address] [facility] DATE CREATED AUTHOR AUTHOR'S ORGANIZ ATION 10/31/2022 [facility] DATE CREATED AUTHOR AUTHOR'S ORGANIZ ATION [facility]/20[facility] DATE CREATED AUTHOR AUTHOR'S ORGANIZ ATION 06/11/2025 [facility] DATE CREATED AUTHOR AUTHOR'S ORGANIZ ATION 07/04/2025 [facility] DATE CREATED AUTHOR AUTHOR'S ORGANIZ ATION 08/14/2025 [facility] DATE CREATED AUTHOR AUTHOR'S ORGANIZ ATION 08/17/2025 [facility] DATE CREATED AUTHOR AUTHOR'S ORGANIZ ATION 09/28/2025 [facility] DATE CREATED AUTHOR AUTHOR'S ORGANIZ ATION 09/30/2025 [facility] Reason for Visit (unrecogniz ed section and content) Reason Comments Follow-up Here for MARTIN educati on. Reason Comments Bloody Stool Specialty Diagnoses / Procedures Referred By Kin t Referred To Contact [facility] Diagnoses Bloody stool Procedures CAPSULE ENDOSCOPY SMALL BOWEL GI TRC IMG INTRALUMINAL ESOPHAGUS-ILEUM W/I&R Susanne Potts, COMPENSATION SUPERVISOR.METAL DRILL OPERATOR [address] [place] [address] [facility] [place] [address] [place] [address] Referral ID Status Reason Start Date Expiration Date V isits Requested Visits Authorized [id number] Closed Auto-Generate d Referral 12/28/2021 12/28/2022 1 [...] of submandibular gland Caitlyn Rivera MD [address] [place] [address] Osvaldo Tapia MD [address] [place] [address] Referral ID Status Reason Start Date Expiration Date V isits Requested Visits Authorized [id number] New Request 03/18/2022 04/12/2023 1 1 Reason Comments Pain Reason Comments Appointment Reschedule Injection Specialty Diagnoses / Procedures Referred By Kin t Referred To Contact Diagnoses Sialadenitis Procedures MRI SIALOGRAM MO MRI, FACE, NECK, COMBO Carol Land, COMPENSATION SUPERVISOR-METAL DRILL OPERATOR [address] [place] [address] Referral ID Status Reason Start Date Expiration Date Visits Re quested Visits Authorized [id number] Closed 03/26/2022 04/20/2023 1 1 Reason Comments [...] REINOSO x6 days Reason Comments ER F/U [facility] Reason Comments Outside [id number] Ordered Reason Comments Consult GI Specialty Diagnoses / Procedures Referred By [facility] t Referred To Contact Diagnoses SI (sacroiliac) joint dysfunction Sacroiliitis, not elsewhere classified ([facility]) Procedures INJECT SI JOINT ARTHRGRPHY&/ANES/STEROID W/JAYCE INJECTION SACROILIAC JOINT, ARTHROGRAPHY AND/OR ANESTHETIC/STEROID [facility] [address] [place] [address] Referral ID Status Reason Start Date Expiration Date Visits Re quested Visits Authorized [id number] 1 1 Reason Comments F/U 6 months Specialty Diagnoses / Procedures [facility] Referred To Contact Diagnoses SI (sacroiliac) joint dysfunction Sacroiliitis, not elsewhere classified ([facility]) Procedures DSTRJ NEUROLYTIC AGENT OTHER PERIPHERAL NERVE RADIOFREQUENCY ABLATION NERVE SPINAL [facility] [address] [place] [address] Referral ID Status Reason Start Date Expiration Date Visits Re quested Visits Authorized [id number] 1 1 Reason Comments ER FU apt Reason Comments Edema Hands, feet, face Reason Comments Injection Followup Refill Request Pain Reason Comments Refill Request Pain Injection Followup Reason Comments Radiology CT Specialty Diagnoses / Procedures [facility] Referred To Contact CT IMAGING Diagnoses Adverse effect of treatment, initial encounter Procedures CTA NECK W IVCON CT ANGIOGRAPHY NECK W/CONTRAST/NONCONTRAST Renard Almodovar, COMPENSATION SUPERVISOR.METAL DRILL OPERATOR [address] [place] [address] [place] [address] Referral ID Status Reason Start Date Expiration Date V isits Requested Visits Authorized [id number] Denied Auto-Generat ed Referral Patient Cleared - [...] RSPSE SPMTRY PRE&POST-BRNCDILAT ADMNagi Ortega MD [address] [place] [address] [facility] [place] [address] [place] [address] Referral ID Status Reason Start Date Expiration Date V isits Requested Visits Authorized [id number] Closed Auto-Generate d Referral 04/25/2024 05/25/2025 1 [...] TIME W/IMAGE COMPLETE Nagi Red MD [address] [place] [address] Phone: tel: fax: [place] [phone] Referral ID Status Reason Start Date Expiration Date V isits Requested Visits Authorized [id number] Closed Auto-Generate d Referral 05/17/2025 06/16/2026 1 1 Reason Comments Kidney Stones Specialty Diagnoses / Procedures Referred By Contac t Referred To Contact Urology Diagnoses Kidney stones Right flank pain Procedures CONSULT TO UROLOGY OFFICE/OUTPATIENT [facility] 60 MINUTES Nagi Red MD [address] [place] [address] Phone: tel: fax: Referral ID Status Reason Start Date Expiration Date V isits Requested Visits Authorized [id number] Closed PCP Requested Referral 05/23/2025 05/23/2026 1 [...] Glucose Specialty Diagnoses / Procedures Referred By Ayanac t Referred To Contact [facility] Diagnoses Bilateral nephrolithiasis Procedures US KIDNEY/BLADDER US RETROPERITONEAL REAL TIME W/IMAGE COMPLETE Greta Templeton DO [address] [place] [address] Phone: tel: fax: [place] [address] Referral ID Status Reason Start Date Expiration Date V isits Requested Visits Authorized [id number] Closed Auto-Generate d Referral 08/06/2025 07/29/2026 1 1 Care Teams (unrecognized sec tion and content) Supervisor [employer] Fabrication Relationship Specialty Start Date End Date Nagi Red MD [address] [place] [address] PCP - General Family Medicine 10/16/20 Supervisor Epoxy Fabrication Relationship Specialty Start Date End Date Nagi Red MD [facility] [place] [address] Family Practice 03/29/14 Supervisor Epoxy Fabrication Relationship Specialty Start Date End Date Nagi Red MD [address] [place] [address], [place] [address] Family Practice 03/29/14 Supervisor Epoxy Fabrication Relationship Specialty Start Date End Date Nagi Red MD [address] [place] [address] , [place] [address] PCP - General Family Medicine 10/16/20 Supervisor Epoxy Fabrication Relationship Specialty Start Date End Date Nagi Red MD [address] [place] [address] , [place] [address] PCP - General Family Medicine 10/16/20 Supervisor Epoxy Fabrication Relationship Specialty Start Date End Date Nagi Red MD [address] [place] [address], [place] [address] Family Practice 03/29/14 Supervisor Epoxy Fabrication Relationship Specialty Start Date End Date Nagi Red MD [address] [place] [address], [place] [address] Family Practice 03/29/14 Supervisor Epoxy Fabrication Relationship Specialty Start Date End Date Nagi Red MD [address] [place] [address] , [place] [address] PCP - General Family Medicine 10/16/20 Supervisor Epoxy Fabrication Relationship Specialty Start Date End Date Nagi Red MD [address] [place] [address] , [place] [address] PCP - General Family Medicine 10/16/20 Supervisor Epoxy Fabrication Relationship Specialty Start Date End Date Nagi Red MD [address] [place] [address], [place] [address] Family Practice 03/29/14 Supervisor Epoxy Fabrication Relationship Specialty Start Date End Date Nagi Red MD [facility] [address] Family Practice 03/29/14 Supervisor Epoxy Fabrication Relationship Specialty Start Date End Date Nagi Red MD [address] [place] [address], [place] [address] PCP - General Family Practice 07/06/22 Nagi Red MD [address] [place] [address], [place] [address] Family Practice 03/29/14 Supervisor Epoxy Fabrication Relationship Specialty Start Date End Date Nagi Red MD [address] [place] [address], [place] [address] PCP - General Family Practice 07/06/22 Nagi Red MD [address] [place] [address], [place] [address] Family Practice 03/29/14 Supervisor Epoxy Fabrication Relationship Specialty Start Date End Date Nagi Red MD [address] [place] [address] , [place] [address] PCP - General Family Medicine 10/16/20 Supervisor Epoxy Fabrication Relationship Specialty Start Date End Date Nagi Red MD [address] [place] [address], [place] [address] PCP - General Family Medicine 07/06/22 Nagi Red MD [address] [place] [address], [place] [address] Family Medicine 03/29/14 Supervisor Epoxy Fabrication Relationship Specialty Start Date End Date Nagi Red MD [address] [place] [address], [place] [address] PCP - General Family Medicine 07/06/22 Nagi Red MD [address] [place] [address], [place] [address] Family Medicine 03/29/14 Supervisor Epoxy Fabrication Relationship Specialty Start Date End Date Nagi Red MD [address] [place] [address] PCP - General Family Medicine 07/06/22 Nagi Red MD [address] [place] [address], [place] [address] Family Medicine 03/29/14 Supervisor Epoxy Fabrication Relationship Specialty Start Date End Date Nagi Red MD [address] [place] [address], [place] [address] PCP - General Family Medicine 07/06/22 Nagi Red MD [address] [place] [address], [place] [address] Family Medicine 03/29/14 Supervisor Epoxy Fabrication Relationship Specialty Start Date End Date Nagi Red MD [address] [place] [address], [place] [address] PCP - General Family Medicine 07/06/22 Nagi Red MD [address] [place] [address], [place] [address] Family Medicine 03/29/14 Supervisor Epoxy Fabrication Relationship Specialty Start Date End Date Nagi Red MD [address] [place] [address], [place] [address] PCP - General Family Medicine 07/06/22 Nagi Red MD [address] [place] [address], [place] [address] Family Medicine 03/29/14 Supervisor Epoxy Fabrication Relationship Specialty Start Date End Date Nagi Red MD [address] [place] [address], [place] [address] PCP - General Family Medicine 07/06/22 Nagi Red MD [address] [place] [address], [place] [address] Family Medicine 03/29/14 Supervisor Epoxy Fabrication Relationship Specialty Start Date End Date Nagi Red MD [address] [place] [address] PCP - General Family Medicine 07/06/22 Nagi Red MD [address] [place] [address] Family Medicine 03/29/14 Supervisor Epoxy Fabrication Relationship Specialty Start Date End Date Nagi Red MD [address] [place] [address] PCP - General Family Medicine 07/06/22 Nagi Red MD [address] [place] [address], [place] [address] Family Medicine 03/29/14 Supervisor Epoxy Fabrication Relationship Specialty Start Date End Date Nagi Red MD [address] [place] [address] PCP - General Family Medicine 07/06/22 Nagi Red MD [facility] [place] [address] Family Medicine 03/29/14 Supervisor Epoxy Fabrication Relationship Specialty Start Date End Date Nagi Rde MD [address] [place] [address] PCP - General Family Medicine 07/06/22 Nagi Red MD [address] [place] [address] Family Medicine 03/29/14 Supervisor Epoxy Fabrication Relationship Specialty Start Date End Date Nagi Red MD [address] [place] [address] PCP - General Family Medicine 07/06/22 Nagi Red MD 0 [place] [address] Family Medicine 03/29/14 Supervisor Epoxy Fabrication Relationship Specialty Start Date End Date Nagi Red MD [address] [place] [address] PCP - General Family Medicine 07/06/22 Nagi Red MD [address] [place] [address] Family Medicine 03/29/14 Supervisor Epoxy Fabrication Relationship Specialty Start Date End Date Nagi Red MD [address] [place] [address] PCP - General Family Medicine 07/06/22 Nagi Red MD [address] [place] [address] Family Medicine 03/29/14 Supervisor Epoxy Fabrication Relationship Specialty Start Date End Date Nagi Red MD [address] [place] [address] PCP - General Family Medicine 07/06/22 Nagi Red MD [address] [place] [address] Family Medicine 03/29/14 Supervisor Epoxy Fabrication Relationship Specialty Start Date End Date Nagi Red MD [address] [place] [address] PCP - General Family Medicine 07/06/22 Nagi Red MD [address] [place] [address] Family Medicine 03/29/14 Supervisor Epoxy Fabrication Relationship Specialty Start Date End Date Nagi Red MD [address] [place] [address] PCP - General Family Medicine 07/06/22 Nagi Red MD [address] [place] [address] Family Medicine 03/29/14 Supervisor Epoxy Fabrication Relationship Specialty Start Date End Date Nagi Red MD [address] [place] [address] PCP - General Family Medicine 07/06/22 Nagi Red MD [address] [place] [address] Family Medicine 03/29/14 Supervisor Epoxy Fabrication Relationship Specialty Start Date End Date Nagi Red MD [address] [place] [address] PCP - General Family Medicine 07/06/22 Nagi Red MD [address] [place] [address] Family Medicine 03/29/14 Supervisor Epoxy Fabrication Relationship Specialty Start Date End Date Nagi Red MD [address] [place] [address] PCP - General Family Medicine 07/06/22 Nagi Red MD [address] [place] [address] Family Medicine 03/29/14 Supervisor Epoxy Fabrication Relationship Specialty Start Date End Date Nagi Red MD [address] [place] [address] PCP - General Family Medicine 07/06/22 Nagi Red MD [address] [place] [address] Family Medicine 03/29/14 Supervisor Epoxy Fabrication Relationship Specialty Start Date End Date Nagi Red MD [address] [place] [address] PCP - General Family Medicine 07/06/22 Nagi Red MD [address] [place] [address] Family Medicine 03/29/14 Supervisor Epoxy Fabrication Relationship Specialty Start Date End Date Nagi Red MD [address] [place] [address] PCP - General Family Medicine 07/06/22 Nagi Red MD [address] [place] [address] Family Medicine 03/29/14 Supervisor Epoxy Fabrication Relationship Specialty Start Date End Date Nagi Red MD [address] [place] [address] PCP - General Family Medicine 07/06/22 Nagi Red MD [address] [place] [address] Family Medicine 03/29/14 Supervisor Epoxy Fabrication Relationship Specialty Start Date End Date Nagi Red MD [address] [place] [address] PCP - General Family Medicine 07/06/22 Nagi Red MD [address] [place] [address] Family Medicine 03/29/14 Supervisor Epoxy Fabrication Relationship Specialty Start Date End Date Nagi Red MD [address] [place] [address] PCP - General Family Medicine 07/06/22 Nagi Red MD [address] [place] [address] Family Medicine 03/29/14 Supervisor Epoxy Fabrication Relationship Specialty Start Date End Date Nagi Red MD [address] [place] [address] PCP - General Family Medicine 07/06/22 Nagi Red MD [address] [place] [address] Family Medicine 03/29/14 Supervisor Epoxy Fabrication Relationship Specialty Start Date End Date Nagi Red MD [address] [place] [address] PCP - General Family Medicine 07/06/22 Nagi Red MD [address] [place] [address] Family Medicine 03/29/14 Supervisor Epoxy Fabrication Relationship Specialty Start Date End Date Nagi Red MD [address] [place] [address] PCP - General Family Medicine 10/16/20 Supervisor Epoxy Fabrication Relationship Specialty Start Date End Date Nagi Red MD [address] [place] [address] PCP - General Family Medicine 07/06/22 Nagi Red MD [address] [place] [address] Family Medicine 03/29/14 Supervisor Epoxy Fabrication Relationship Specialty Start Date End Date Nagi Red MD [address] [place] [address] PCP - General Family Medicine 07/06/22 Nagi Red MD [address] [place] [address] Family Medicine 03/29/14 Supervisor Epoxy Fabrication Relationship Specialty Start Date End Date Nagi Red MD [address] [place] [address] PCP - General Family Medicine 07/06/22 Nagi Red MD [address] [place] [address] Family Medicine 03/29/14 Supervisor Epoxy Fabrication Relationship Specialty Start Date End Date Nagi Red MD [address] [place] [address] Family Medicine 03/29/14 Supervisor Epoxy Fabrication Relationship Specialty Start Date End Date Nagi Red MD [address] [place] [address] PCP - General Family Medicine 07/06/22 Nagi Red MD [address] [place] [address] Family Medicine 03/29/14 Supervisor Epoxy Fabrication Relationship Specialty Start Date End Date Nagi Red MD [address] [place] [address] PCP - General Family Medicine 07/06/22 Nagi Red MD [address] [place] [address] Family Medicine 03/29/14 Supervisor Epoxy Fabrication Relationship Specialty Start Date End Date Nagi Red MD [address] [place] [address] PCP - General Family Medicine 07/06/22 Nagi Red MD [address] [place] [address] Family Medicine 03/29/14 Supervisor Epoxy Fabrication Relationship Specialty Start Date End Date Nagi Red MD [address] [place] [address] PCP - General Family Medicine 07/06/22 Nagi Red MD [address] [place] [address] Family Medicine 03/29/14 Supervisor Epoxy Fabrication Relationship Specialty Start Date End Date Nagi Red MD [address] [place] [address] PCP - General Family Medicine 07/06/22 Nagi Red MD [address] [place] [address] Family Medicine 03/29/14 Supervisor Epoxy Fabrication Relationship Specialty Start Date End Date Nagi Red MD [address] [place] [address] PCP - General Family Medicine 07/06/22 Nagi Red MD [address] [place] [address] Family Medicine 03/29/14 Supervisor Epoxy Fabrication Relationship Specialty Start Date End Date Nagi Red MD [address] [place] [address] PCP - General Family Medicine 07/06/22 Nagi Red MD [address] [place] [address] Family Medicine 03/29/14 Supervisor Epoxy Fabrication Relationship Specialty Start Date End Date Nagi Red MD [address] [place] [address] PCP - General Family Medicine 07/06/22 Nagi Red MD [address] [place] [address] Family Medicine 03/29/14 Supervisor Epoxy Fabrication Relationship Specialty Start Date End Date Nagi Red MD [address] [place] [address] PCP - General Family Medicine 07/06/22 Nagi Red MD 0 [facility] [place] [address] Family Medicine 03/29/14 Supervisor Epoxy Fabrication Relationship Specialty Start Date End Date Nagi Red MD [address] [place] [address] PCP - General Family Medicine 07/06/22 Nagi Red MD [address] [place] [address] Family Medicine 03/29/14 Renard Almodovar APRN.METAL DRILL OPERATOR [address] [facility] [place] [address] [employer]maker Metal Bench Family Medicine 10/28/24 Christine Dean PA-C [address] [place] [address] Patternmaker Metal Bench Family [facility] 10/28/24 Supervisor Epoxy Fabrication Relationship Specialty Start Date End Date Nagi Red MD [address] [place] [address] PCP - General Family Medicine 07/06/22 Nagi Red MD [address] [place] [address] Family Medicine 03/29/14 Renard Almodovar, [place].METAL DRILL OPERATOR [address] [facility] [place] [address] [employer]maker [employer] Bench Family Medicine 10/28/24 Christine Dean PA-C [address] [place] [address] Patternmaker Metal Bench Family Medicine 10/28/24 Supervisor Epoxy Fabrication Relationship Specialty Start Date End Date Nagi Red MD [address] [place] [address] PCP - General Family Medicine 07/06/22 Nagi Red MD [address] [place] [address] Family Medicine 03/29/14 Renard Almodovar APRN.METAL DRILL OPERATOR [address] [facility] [place] [address] [employer]maker [employer] Family [facility] 10/28/24 Christine Dean PA-C [address] [place] [address] [employer]maker [employer] Family [facility] 10/28/24 Supervisor Epoxy Fabrication Relationship Specialty Start Date End Date Nagi Red MD [address] [place] [address] PCP - General Family Medicine 07/06/22 Nagi Red MD [address] [place] [address] Family Medicine 03/29/14 Renard Almodovar APRN.METAL DRILL OPERATOR [address] [place] [address] [facility] Family [facility] 10/28/24 Christine Dean PA-C [address] [place] [address] Patternmaker Metal Bench Family [facility] 10/28/24 Supervisor Epoxy Fabrication Relationship Specialty Start Date End Date Nagi Red MD [address] [place] [address] PCP - General Family Medicine 07/06/22 Nagi Red MD [address] [place] [address] Family Medicine 03/29/14 Renard Almodovar APRN.METAL DRILL OPERATOR [address] [facility] [place] [address] [employer]maker [employer] Bench Family Medicine 10/28/24 Christine Dean PA-C [address] [place] [address] [employer]maker [employer] Bench Family [facility] 10/28/24 Supervisor Epoxy Fabrication Relationship Specialty Start Date End Date Nagi Red MD [address] [place] [address] PCP - General Family Medicine 07/06/22 Nagi Red MD [address] [place] [address] Family Medicine 03/29/14 Renard Almodovar, COMPENSATION SUPERVISOR.METAL DRILL OPERATOR [address] [place] [address] [employer] [facility] 10/28/24 Christine Dean PA-C [address] [place] [address] [employer] Family [facility] 10/28/24 Supervisor Epoxy Fabrication Relationship Specialty Start Date End Date Nagi Red MD [address] [place] [address] PCP - General Family Medicine 07/06/22 Nagi Red MD [address] [place] [address] Family Medicine 03/29/14 Renard Almodovar, COMPENSATION SUPERVISOR.METAL DRILL OPERATOR [address] [place] [address] [employer] [facility] 10/28/24 Christine Dean PA-C [address] [place] [address] Patternmaker Metal Bench [facility] 10/28/24 Supervisor Epoxy Fabrication Relationship Specialty Start Date End Date Nagi Red MD [address] [place] [address] PCP - General Family Medicine 07/06/22 Nagi Red MD [address] [place] [address] Family Medicine 03/29/14 Renard Almodovar, [place].METAL DRILL OPERATOR [address] [place] [address] [employer] [facility] 10/28/24 Christine Dean PA-C [address] [place] [address] [facility] Supervisor Epoxy Fabrication Relationship Specialty Start Date End Date Nagi Red MD [address] [place] [address] PCP - General Family Medicine 07/06/22 Nagi Red MD [address] [place] [address] Family Medicine 03/29/14 Renard Almodovar, [place].METAL DRILL OPERATOR [address] [facility] [place] [address] Patternmaker Metal Bench Family [facility] 10/28/24 Christine Dean PA-C [address] [facility] [place] [address] Patternmaker Metal Bench Family [facility] 10/28/24 Supervisor Epoxy Fabrication Relationship Specialty Start Date End Date Nagi Red MD [address] [place] [address] PCP - General Family Medicine 07/06/22 Nagi Red MD [address] [place] [address] Family Medicine 03/29/14 Renard Almodovar APRN.METAL DRILL OPERATOR [address] [place] [address] [employer]maker [employer] Family [facility] 10/28/24 Christine Dean PA-C [address] [place] [address] [employer]maker [employer] Family [facility] 10/28/24 Supervisor Epoxy Fabrication Relationship Specialty Start Date End Date Nagi Red MD [address] [place] [address] PCP - General Family Medicine 07/06/22 Nagi Red MD [address] [place] [address] Family Medicine 03/29/14 Renard Almodovar, [place].METAL DRILL OPERATOR [address] [place] [address] [employer] [facility] 10/28/24 Christine Dean PA-C [address] [place] [address] [employer] Family [facility] 10/28/24 Supervisor Epoxy Fabrication Relationship Specialty Start Date End Date Nagi Red MD [address] [place] [address] PCP - General Family Medicine 07/06/22 Nagi Red MD [address] [place] [address] Family Medicine 03/29/14 Renard Almodovar APRN.METAL DRILL OPERATOR [address] [facility] [place] [address] [employer]maker [employer] Bench Family [facility] 10/28/24 Christine Dean PA-C [address] [place] [address] [employer]maker [employer] Family [facility] 10/28/24 Supervisor Epoxy Fabrication Relationship Specialty Start Date End Date Nagi Red MD [address] [place] [address] PCP - General Family Medicine 07/06/22 Nagi Red MD [address] [place] [address] Family Medicine 03/29/14 Christine Dean PA-C [address] [place] [address] [employer]maker [employer] Family [facility] 10/28/24 Supervisor Epoxy Fabrication Relationship Specialty Start Date End Date Nagi Red MD [address] [place] [address] PCP - General Family Medicine 07/06/22 Nagi Red MD [address] [place] [address] Family Medicine 03/29/14 Christine Dean PA-C [address] [place] [address] [employer]maker [employer] Bench Family Medicine 10/28/24 Supervisor Epoxy Fabrication Relationship Specialty Start Date End Date Nagi Red MD [address] [place] [address] PCP - General Family Medicine 07/06/22 Nagi Rde MD [address] [place] [address] Family Medicine 03/29/14 Renard Almodovar, [place].METAL DRILL OPERATOR [address] [place] [address] [employer] Family Medicine 04/23/25 Christine Dean PA-C [address] [place] [address] [employer] Family Medicine 04/23/25 Supervisor Epoxy Fabrication Relationship Specialty Start Date End Date Nagi Red MD [address] [place] [address] PCP - General Family Medicine 07/06/22 Nagi Red MD [address] [place] [address] Family Medicine 03/29/14 Renard Almodovar, [place].METAL DRILL OPERATOR [address] [facility] [place] [address] [employer]maker Metal Bench Family Medicine 04/23/25 Christine Dean PA-C [address] [place] [address] [employer]maker [employer] Bench Family Medicine 04/23/25 Supervisor Epoxy Fabrication Relationship Specialty Start Date End Date Nagi Red MD [address] [place] [address] PCP - General Family Medicine 07/06/22 Nagi Red MD [address] [place] [address] Family Medicine 03/29/14 Renard Almodovar APRN.METAL DRILL OPERATOR [address] [place] [address] [employer] Family Medicine 04/23/25 Christine Dean PA-C [address] [place] [address] [employer] Family Medicine 04/23/25 Supervisor Epoxy Fabrication Relationship Specialty Start Date End Date Nagi Red MD [address] [place] [address] PCP - General Family Medicine 07/06/22 Nagi Red MD [address] [place] [address] Family Medicine 03/29/14 Renard Almodovar APRN.METAL DRILL OPERATOR [address] [place] [address] [employer] Family Medicine 04/23/25 Christine Dean PA-C [address] [place] [address] [employer] Family Medicine 04/23/25 Supervisor Epoxy Fabrication Relationship Specialty Start Date End Date Nagi Red MD [address] [place] [address] PCP - General Family Medicine 07/06/22 Nagi Red MD [address] [place] [address] Family Medicine 03/29/14 Renard Almodovar APRN.METAL DRILL OPERATOR [address] [facility] [place] [address] [employer] Family Medicine 04/23/25 Christine Dean PA-C [address] [place] [address] [employer] Family Medicine 04/23/25 Supervisor Epoxy Fabrication Relationship Specialty Start Date End Date Nagi Red MD [address] [place] [address] PCP - General Family Medicine 07/06/22 Nagi Red MD [address] [place] [address] Family Medicine 03/29/14 Renard Almodovar, COMPENSATION SUPERVISOR.METAL DRILL OPERATOR [address] [place] [address] [employer] Family Medicine 04/23/25 Christine Dean PA-C [address] [place] [address] [employer] Family [facility] 04/23/25 Supervisor Epoxy Fabrication Relationship Specialty Start Date End Date Nagi Red MD [address] [place] [address] PCP - General Family Medicine 07/06/22 Nagi Red MD [address] [place] [address] Family Medicine 03/29/14 Renard Almodovar, KIMBERLEY.METAL DRILL OPERATOR [address] [facility] [place] [address] [employer] Family Medicine 04/23/25 Christine Dean PA-C [address] [place] [address] [employer]maker [employer] [facility] 04/23/25 Supervisor Epoxy Fabrication Relationship Specialty Start Date End Date Nagi Red MD [address] [place] [address] PCP - General Family Medicine 07/06/22 Nagi Red MD [address] [place] [address] Family Medicine 03/29/14 Renard Almodovar, KIMBERLEY.METAL DRILL OPERATOR [address] [facility] [place] [address] [employer] Family Medicine 04/23/25 Christine Dean PA-C [address] [place] [address] [employer] Family Medicine 04/23/25 Supervisor Epoxy Fabrication Relationship Specialty Start Date End Date Nagi Red MD [address] [place] [address] PCP - General Family Medicine 07/06/22 Nagi Red MD [address] [place] [address] Family Medicine 03/29/14 Renard Almodovar APRN.METAL DRILL OPERATOR [address] [facility] [place] [address] [employer] Family Medicine 04/23/25 Christine Dean PA-C [address] [place] [address] [employer] Family [facility] 04/23/25 Supervisor Epoxy Fabrication Relationship Specialty Start Date End Date Nagi Red MD [address] [place] [address] PCP - General Family Medicine 07/06/22 Nagi Red MD [address] [place] [address] Family Medicine 03/29/14 Renard Almodovar, COMPENSATION SUPERVISOR.METAL DRILL OPERATOR [address] [place] [address] [employer] Family Medicine 04/23/25 Christine Dean PA-C [address] [place] [address] [employer] Family Medicine 04/23/25 Supervisor Epoxy Fabrication Relationship Specialty Start Date End Date Nagi Red MD [address] [place] [address] PCP - General Family Medicine 07/06/22 Nagi Red MD [address] [place] [address] Family Medicine 03/29/14 Renard Almodovar APRN.METAL DRILL OPERATOR [address] [facility] [place] [address] [employer] Family Medicine 04/23/25 Christine Dean PA-C [address] [place] [address] [employer] Family [facility] 04/23/25 Supervisor Epoxy Fabrication Relationship Specialty Start Date End Date Nagi Red MD [address] [place] [address] PCP - General Family Medicine 07/06/22 Nagi Red MD [address] [place] [address] Family Medicine 03/29/14 Renard Almodovar, COMPENSATION SUPERVISOR.METAL DRILL OPERATOR [address] [facility] [place] [address] [employer] Family Medicine 04/23/25 Christine Dean PA-C [address] [place] [address] [employer] Family [facility] 04/23/25 Supervisor Epoxy Fabrication Relationship Specialty Start Date End Date Nagi Red MD [address] [place] [address] PCP - General Family Medicine 07/06/22 Nagi Red MD [address] [place] [address] Family Medicine 03/29/14 Renard Almodovar, COMPENSATION SUPERVISOR.METAL DRILL OPERATOR [address] [facility] [place] [address] [employer] Family Medicine 04/23/25 Christine Dean PA-C [address] [place] [address] [employer] Family Medicine 04/23/25 Supervisor Epoxy Fabrication Relationship Specialty Start Date End Date Nagi Red MD [address] [place] [address] PCP - General Family Medicine 07/06/22 Nagi Red MD [address] [place] [address] Family Medicine 03/29/14 Renard Almodovar APRN.METAL DRILL OPERATOR [address] [place] [address] [employer] Family Medicine 04/23/25 Chritsine Dean PA-C [address] [place] [address] [employer] Family Medicine 04/23/25 Supervisor Epoxy Fabrication Relationship Specialty Start Date End Date Nagi Red MD [address] [place] [address] PCP - General Family Medicine 07/06/22 Nagi Red MD [address] [place] [address] Family Medicine 03/29/14 Renard Almodovar APRN.METAL DRILL OPERATOR [address] [facility] [place] [address] [employer] Family Medicine 04/23/25 Christine Dean PA-C [address] [place] [address] [employer] Family Medicine 04/23/25 Supervisor Epoxy Fabrication Relationship Specialty Start Date End Date Nagi Red MD [address] [place] [address] PCP - General Family Medicine 07/06/22 Nagi Red MD [address] [place] [address] Family Medicine 03/29/14 Renard Almodovar, KIMBERLEY.METAL DRILL OPERATOR [address] [place] [address] [employer] Family Medicine 04/23/25 Christine Dean PA-C [address] [place] [address] [employer] Family Medicine 04/23/25 Supervisor Epoxy Fabrication Relationship Specialty Start Date End Date Nagi Red MD [address] [place] [address] PCP - General Family Medicine 07/06/22 Nagi Red MD [address] [place] [address] Family Medicine 03/29/14 Renard Almodovar, COMPENSATION SUPERVISOR.METAL DRILL OPERATOR [address] [place] [address] [employer] Family Medicine 04/23/25 Christine Dean PA-C [address] [place] [address] [employer] Family Medicine 04/23/25 Supervisor Epoxy Fabrication Relationship Specialty Start Date End Date Nagi Red MD [address] [place] [address] PCP - General Family Medicine 07/06/22 Nagi Red MD [address] [place] [address] Family Medicine 03/29/14 Renard Almodovar, KIMBERLEY.METAL DRILL OPERATOR [address] [place] [address] [employer] Family Medicine 04/23/25 Christine Dean PA-C [address] [place] [address] [employer] Family Medicine 04/23/25 Supervisor Epoxy Fabrication Relationship Specialty Start Date End Date Nagi Red MD [address] [place] [address] PCP - General Family Medicine 10/16/20 Supervisor Epoxy Fabrication Relationship Specialty Start Date End Date Nagi Red MD [address] [place] [address] PCP - General Family Medicine 10/16/20 Supervisor Epoxy Fabrication Relationship Specialty Start Date End Date Nagi Red MD [address] [place] [address] PCP - General Family Medicine 07/06/22 Nagi Red MD [address] [place] [address] Family Medicine 03/29/14 Renard Almodovar, COMPENSATION SUPERVISOR.METAL DRILL OPERATOR [address] [place] [address] [employer] Family Medicine 04/23/25 Christine Dean PA-C [address] [place] [address] [employer]maker [employer] Family [facility] 04/23/25 Supervisor Epoxy Fabrication Relationship Specialty Start Date End Date Nagi Red MD [address] [place] [address] PCP - General Family Medicine 07/06/22 Nagi Red MD [address] [place] [address] Family Medicine 03/29/14 Renard Almodovar, KIMBERLEY.METAL DRILL OPERATOR [address] [place] [address] [employer] Family Medicine 04/23/25 Christine Dean PA-C [address] [place] [address] [employer] Family [facility] 04/23/25 Supervisor Epoxy Fabrication Relationship Specialty Start Date End Date Nagi Red MD [address] [place] [address] PCP - General Family Medicine 07/06/22 Nagi Red MD [address] [place] [address] Family Medicine 03/29/14 Renard Almodovar, KIMBERLEY.METAL DRILL OPERATOR [address] [place] [address] [employer] Family Medicine 04/23/25 Christine Dean PA-C [address] [place] [address] [employer]maker [employer] Family Medicine 04/23/25 Supervisor Epoxy Fabrication Relationship Specialty Start Date End Date Nagi Red MD [address] [place] [address] PCP - General Family Medicine 07/06/22 Nagi Red MD [address] [place] [address] Family Medicine 03/29/14 Renard Almodovar APRN.METAL DRILL OPERATOR [address] [place] [address] [employer] Family Medicine 04/23/25 Christine Dean PA-C [address] [place] [address] [employer] Family Medicine 04/23/25 Supervisor Epoxy Fabrication Relationship Specialty Start Date End Date Nagi Red MD [address] [facility] [place] [address] PCP - General Family Medicine 07/06/22 Nagi Red MD [address] [place] [address] Family Medicine 03/29/14 Renard Almodovar APRN.METAL DRILL OPERATOR [address] [facility] [place] [address] [employer]maker [employer] Family Medicine 04/23/25 Christine Dean PA-C [address] [place] [address] [employer]maker [employer] Family Medicine 04/23/25 Source Comments (unrecognize d section and content) In the event this informatio n is protected by the Federal Confidentiality of Alcohol and Drug Abuse Patient Records regulations: The Federal rules restrict any use of the information to criminally investigate or prosecute any alcohol or drug abuse patient.[facility] HospitalIn the event this information is protected by the Federal Confidentiality of Alcohol and Drug Abuse Patient Records regulations: The Federal rules restrict any use of the information to criminally investigate or prosecute any alcohol or drug abuse patient.[facility] HospitalIn the event this information is protected by the Federal Confidentiality of Alcohol and Drug Abuse Patient Records regulations: The Federal rules restrict any use of the information to criminally investigate or prosecute any alcohol or drug abuse patient.[facility] HospitalIn the event this information is protected by the Federal Confidentiality of Alcohol and Drug Abuse Patient Records regulations: The Federal rules restrict any use of the information to criminally investigate or prosecute any alcohol or drug abuse patient.[facility] HospitalIn the event this information is protected by the Federal Confidentiality of Alcohol and Drug Abuse Patient Records regulations: The Federal rules restrict any use of the information to criminally investigate or prosecute any alcohol or drug abuse patient.[facility] HospitalIn the event this information is protected by the Federal Confidentiality of Alcohol and Drug Abuse Patient Records regulations: The Federal rules restrict any use of the information to criminally investigate or prosecute any alcohol or drug abuse patient.[facility] HospitalIn the event this information is protected by the Federal Confidentiality of Alcohol and Drug Abuse Patient Records regulations: The Federal rules restrict any use of the information to criminally investigate or prosecute any alcohol or drug abuse patient.[facility] HospitalIn the event this information is protected by the Federal Confidentiality of Alcohol and Drug Abuse Patient Records regulations: The Federal rules restrict any use of the information to criminally investigate or prosecute any alcohol or drug abuse patient.[facility] HospitalIn the event this information is protected by the Federal Confidentiality of Alcohol and Drug Abuse Patient Records regulations: The Federal rules restrict any use of the information to criminally investigate or prosecute any alcohol or drug abuse patient.[facility] HospitalIn the event this information is protected by the Federal Confidentiality of Alcohol and Drug Abuse Patient Records regulations: The Federal rules restrict any use of the information to criminally investigate or prosecute any alcohol or drug abuse patient.[facility] HospitalIn the event this information is protected by the Federal Confidentiality of Alcohol and Drug Abuse Patient Records regulations: The Federal rules restrict any use of the information to criminally investigate or prosecute any alcohol or drug abuse patient.[facility] HospitalIn the event this information is protected by the Federal Confidentiality of Alcohol and Drug Abuse Patient Records regulations: The Federal rules restrict any use of the information to criminally investigate or prosecute any alcohol or drug abuse patient.[facility] HospitalIn the event this information is protected by the Federal Confidentiality of Alcohol and Drug Abuse Patient Records regulations: The Federal rules restrict any use of the information to criminally investigate or prosecute any alcohol or drug abuse patient.[facility] HospitalIn the event this information is protected by the Federal Confidentiality of Alcohol and Drug Abuse Patient Records regulations: The Federal rules restrict any use of the information to criminally investigate or prosecute any alcohol or drug abuse patient.[facility] HospitalIn the event this information is protected by the Federal Confidentiality of Alcohol and Drug Abuse Patient Records regulations: The Federal rules restrict any use of the information to criminally investigate or prosecute any alcohol or drug abuse patient.[facility] HospitalIn the event this information is protected by the Federal Confidentiality of Alcohol and Drug Abuse Patient Records regulations: The Federal rules restrict any use of the information to criminally investigate or prosecute any alcohol or drug abuse patient.[facility] HospitalIn the event this information is protected by the Federal Confidentiality of Alcohol and Drug Abuse Patient Records regulations: The Federal rules restrict any use of the information to criminally investigate or prosecute any alcohol or drug abuse patient.[facility] HospitalIn the event this information is protected by the Federal Confidentiality of Alcohol and Drug Abuse Patient Records regulations: The Federal rules restrict any use of the information to criminally investigate or prosecute any alcohol or drug abuse patient.[facility] HospitalIn the event this information is protected by the Federal Confidentiality of Alcohol and Drug Abuse Patient Records regulations: The Federal rules restrict any use of the information to criminally investigate or prosecute any alcohol or drug abuse patient.[facility] HospitalIn the event this information is protected by the Federal Confidentiality of Alcohol and Drug Abuse Patient Records regulations: The Federal rules restrict any use of the information to criminally investigate or prosecute any alcohol or drug abuse patient.[facility] HospitalIn the event this information is protected by the Federal Confidentiality of Alcohol and Drug Abuse Patient Records regulations: The Federal rules restrict any use of the information to criminally investigate or prosecute any alcohol or drug abuse patient.[facility] HospitalIn the event this information is protected by the Federal Confidentiality of Alcohol and Drug Abuse Patient Records regulations: The Federal rules restrict any use of the information to criminally investigate or prosecute any alcohol or drug abuse patient.[facility] HospitalIn the event this information is protected by the Federal Confidentiality of Alcohol and Drug Abuse Patient Records regulations: The Federal rules restrict any use of the information to criminally investigate or prosecute any alcohol or drug abuse patient.[facility] HospitalIn the event this information is protected by the Federal Confidentiality of Alcohol and Drug Abuse Patient Records regulations: The Federal rules restrict any use of the information to criminally investigate or prosecute any alcohol or drug abuse patient.[facility] HospitalIn the event this information is protected by the Federal Confidentiality of Alcohol and Drug Abuse Patient Records regulations: The Federal rules restrict any use of the information to criminally investigate or prosecute any alcohol or drug abuse patient.[facility] HospitalIn the event this information is protected by the Federal Confidentiality of Alcohol and Drug Abuse Patient Records regulations: The Federal rules restrict any use of the information to criminally investigate or prosecute any alcohol or drug abuse patient.[facility] HospitalIn the event this information is protected by the Federal Confidentiality of Alcohol and Drug Abuse Patient Records regulations: The Federal rules restrict any use of the information to criminally investigate or prosecute any alcohol or drug abuse patient.[facility] HospitalIn the event this information is protected by the Federal Confidentiality of Alcohol and Drug Abuse Patient Records regulations: The Federal rules restrict any use of the information to criminally investigate or prosecute any alcohol or drug abuse patient.[facility] HospitalIn the event this information is protected by the Federal Confidentiality of Alcohol and Drug Abuse Patient Records regulations: The Federal rules restrict any use of the information to criminally investigate or prosecute any alcohol or drug abuse patient.[facility] HospitalIn the event this information is protected by the Federal Confidentiality of Alcohol and Drug Abuse Patient Records regulations: The Federal rules restrict any use of the information to criminally investigate or prosecute any alcohol or drug abuse patient.[facility] HospitalIn the event this information is protected by the Federal Confidentiality of Alcohol and Drug Abuse Patient Records regulations: The Federal rules restrict any use of the information to criminally investigate or prosecute any alcohol or drug abuse patient.[facility] HospitalIn the event this information is protected by the Federal Confidentiality of Alcohol and Drug Abuse Patient Records regulations: The Federal rules restrict any use of the information to criminally investigate or prosecute any alcohol or drug abuse patient.[facility] HospitalIn the event this information is protected by the Federal Confidentiality of Alcohol and Drug Abuse Patient Records regulations: The Federal rules restrict any use of the information to criminally investigate or prosecute any alcohol or drug abuse patient.[facility] HospitalIn the event this information is protected by the Federal Confidentiality of Alcohol and Drug Abuse Patient Records regulations: The Federal rules restrict any use of the information to criminally investigate or prosecute any alcohol or drug abuse patient.[facility] HospitalIn the event this information is protected by the Federal Confidentiality of Alcohol and Drug Abuse Patient Records regulations: The Federal rules restrict any use of the information to criminally investigate or prosecute any alcohol or drug abuse patient.[facility] HospitalIn the event this information is protected by the Federal Confidentiality of Alcohol and Drug Abuse Patient Records regulations: The Federal rules restrict any use of the information to criminally investigate or prosecute any alcohol or drug abuse patient.[facility] HospitalIn the event this information is protected by the Federal Confidentiality of Alcohol and Drug Abuse Patient Records regulations: The Federal rules restrict any use of the information to criminally investigate or prosecute any alcohol or drug abuse patient.[facility] HospitalIn the event this information is protected by the Federal Confidentiality of Alcohol and Drug Abuse Patient Records regulations: The Federal rules restrict any use of the information to criminally investigate or prosecute any alcohol or drug abuse patient.[facility] HospitalIn the event this information is protected by the Federal Confidentiality of Alcohol and Drug Abuse Patient Records regulations: The Federal rules restrict any use of the information to criminally investigate or prosecute any alcohol or drug abuse patient.[facility] HospitalIn the event this information is protected by the Federal Confidentiality of Alcohol and Drug Abuse Patient Records regulations: The Federal rules restrict any use of the information to criminally investigate or prosecute any alcohol or drug abuse patient.[facility] HospitalIn the event this information is protected by the Federal Confidentiality of Alcohol and Drug Abuse Patient Records regulations: The Federal rules restrict any use of the information to criminally investigate or prosecute any alcohol or drug abuse patient.[facility] HospitalIn the event this information is protected by the Federal Confidentiality of Alcohol and Drug Abuse Patient Records regulations: The Federal rules restrict any use of the information to criminally investigate or prosecute any alcohol or drug abuse patient.[facility] HospitalIn the event this information is protected by the Federal Confidentiality of Alcohol and Drug Abuse Patient Records regulations: The Federal rules restrict any use of the information to criminally investigate or prosecute any alcohol or drug abuse patient.[facility] HospitalIn the event this information is protected by the Federal Confidentiality of Alcohol and Drug Abuse Patient Records regulations: The Federal rules restrict any use of the information to criminally investigate or prosecute any alcohol or drug abuse patient.[facility] HospitalIn the event this information is protected by the Federal Confidentiality of Alcohol and Drug Abuse Patient Records regulations: The Federal rules restrict any use of the information to criminally investigate or prosecute any alcohol or drug abuse patient.[facility] HospitalIn the event this information is protected by the Federal Confidentiality of Alcohol and Drug Abuse Patient Records regulations: The Federal rules restrict any use of the information to criminally investigate or prosecute any alcohol or drug abuse patient.[facility] HospitalIn the event this information is protected by the Federal Confidentiality of Alcohol and Drug Abuse Patient Records regulations: The Federal rules restrict any use of the information to criminally investigate or prosecute any alcohol or drug abuse patient.[facility] HospitalIn the event this information is protected by the Federal Confidentiality of Alcohol and Drug Abuse Patient Records regulations: The Federal rules restrict any use of the information to criminally investigate or prosecute any alcohol or drug abuse patient.[facility] HospitalIn the event this information is protected by the Federal Confidentiality of Alcohol and Drug Abuse Patient Records regulations: The Federal rules restrict any use of the information to criminally investigate or prosecute any alcohol or drug abuse patient.[facility] HospitalIn the event this information is protected by the Federal Confidentiality of Alcohol and Drug Abuse Patient Records regulations: The Federal rules restrict any use of the information to criminally investigate or prosecute any alcohol or drug abuse patient.[facility] HospitalIn the event this information is protected by the Federal Confidentiality of Alcohol and Drug Abuse Patient Records regulations: The Federal rules restrict any use of the information to criminally investigate or prosecute any alcohol or drug abuse patient.[facility] HospitalIn the event this information is protected by the Federal Confidentiality of Alcohol and Drug Abuse Patient Records regulations: The Federal rules restrict any use of the information to criminally investigate or prosecute any alcohol or drug abuse patient.[facility] HospitalIn the event this information is protected by the Federal Confidentiality of Alcohol and Drug Abuse Patient Records regulations: The Federal rules restrict any use of the information to criminally investigate or prosecute any alcohol or drug abuse patient.[facility] HospitalIn the event this information is protected by the Federal Confidentiality of Alcohol and Drug Abuse Patient Records regulations: The Federal rules restrict any use of the information to criminally investigate or prosecute any alcohol or drug abuse patient.[facility] HospitalIn the event this information is protected by the Federal Confidentiality of Alcohol and Drug Abuse Patient Records regulations: The Federal rules restrict any use of the information to criminally investigate or prosecute any alcohol or drug abuse patient.[facility] HospitalIn the event this information is protected by the Federal Confidentiality of Alcohol and Drug Abuse Patient Records regulations: The Federal rules restrict any use of the information to criminally investigate or prosecute any alcohol or drug abuse patient.[facility] HospitalIn the event this information is protected by the Federal Confidentiality of Alcohol and Drug Abuse Patient Records regulations: The Federal rules restrict any use of the information to criminally investigate or prosecute any alcohol or drug abuse patient.[facility] HospitalIn the event this information is protected by the Federal Confidentiality of Alcohol and Drug Abuse Patient Records regulations: The Federal rules restrict any use of the information to criminally investigate or prosecute any alcohol or drug abuse patient.[facility] HospitalIn the event this information is protected by the Federal Confidentiality of Alcohol and Drug Abuse Patient Records regulations: The Federal rules restrict any use of the information to criminally investigate or prosecute any alcohol or drug abuse patient.[facility] HospitalIn the event this information is protected by the Federal Confidentiality of Alcohol and Drug Abuse Patient Records regulations: The Federal rules restrict any use of the information to criminally investigate or prosecute any alcohol or drug abuse patient.[facility] HospitalIn the event this information is protected by the Federal Confidentiality of Alcohol and Drug Abuse Patient Records regulations: The Federal rules restrict any use of the information to criminally investigate or prosecute any alcohol or drug abuse patient.[facility] HospitalIn the event this information is protected by the Federal Confidentiality of Alcohol and Drug Abuse Patient Records regulations: The Federal rules restrict any use of the information to criminally investigate or prosecute any alcohol or drug abuse patient.[facility] HospitalIn the event this information is protected by the Federal Confidentiality of Alcohol and Drug Abuse Patient Records regulations: The Federal rules restrict any use of the information to criminally investigate or prosecute any alcohol or drug abuse patient.[facility] HospitalIn the event this information is protected by the Federal Confidentiality of Alcohol and Drug Abuse Patient Records regulations: The Federal rules restrict any use of the information to criminally investigate or prosecute any alcohol or drug abuse patient.[facility] HospitalIn the event this information is protected by the Federal Confidentiality of Alcohol and Drug Abuse Patient Records regulations: The Federal rules restrict any use of the information to criminally investigate or prosecute any alcohol or drug abuse patient.[facility] HospitalIn the event this information is protected by the Federal Confidentiality of Alcohol and Drug Abuse Patient Records regulations: The Federal rules restrict any use of the information to criminally investigate or prosecute any alcohol or drug abuse patient.[facility] HospitalIn the event this information is protected by the Federal Confidentiality of Alcohol and Drug Abuse Patient Records regulations: The Federal rules restrict any use of the information to criminally investigate or prosecute any alcohol or drug abuse patient.[facility] HospitalIn the event this information is protected by the Federal Confidentiality of Alcohol and Drug Abuse Patient Records regulations: The Federal rules restrict any use of the information to criminally investigate or prosecute any alcohol or drug abuse patient.[facility] HospitalIn the event this information is protected by the Federal Confidentiality of Alcohol and Drug Abuse Patient Records regulations: The Federal rules restrict any use of the information to criminally investigate or prosecute any alcohol or drug abuse patient.[facility] HospitalIn the event this information is protected by the Federal Confidentiality of Alcohol and Drug Abuse Patient Records regulations: The Federal rules restrict any use of the information to criminally investigate or prosecute any alcohol or drug abuse patient.[facility] HospitalIn the event this information is protected by the Federal Confidentiality of Alcohol and Drug Abuse Patient Records regulations: The Federal rules restrict any use of the information to criminally investigate or prosecute any alcohol or drug abuse patient.[facility] HospitalIn the event this information is protected by the Federal Confidentiality of Alcohol and Drug Abuse Patient Records regulations: The Federal rules restrict any use of the information to criminally investigate or prosecute any alcohol or drug abuse patient.[facility] HospitalIn the event this information is protected by the Federal Confidentiality of Alcohol and Drug Abuse Patient Records regulations: The Federal rules restrict any use of the information to criminally investigate or prosecute any alcohol or drug abuse patient.[facility] HospitalIn the event this information is protected by the Federal Confidentiality of Alcohol and Drug Abuse Patient Records regulations: The Federal rules restrict any use of the information to criminally investigate or prosecute any alcohol or drug abuse patient.[facility] HospitalIn the event this information is protected by the Federal Confidentiality of Alcohol and Drug Abuse Patient Records regulations: The Federal rules restrict any use of the information to criminally investigate or prosecute any alcohol or drug abuse patient.[facility] HospitalIn the event this information is protected by the Federal Confidentiality of Alcohol and Drug Abuse Patient Records regulations: The Federal rules restrict any use of the information to criminally investigate or prosecute any alcohol or drug abuse patient.[facility] HospitalIn the event this information is protected by the Federal Confidentiality of Alcohol and Drug Abuse Patient Records regulations: The Federal rules restrict any use of the information to criminally investigate or prosecute any alcohol or drug abuse patient.[facility] HospitalIn the event this information is protected by the Federal Confidentiality of Alcohol and Drug Abuse Patient Records regulations: The Federal rules restrict any use of the information to criminally investigate or prosecute any alcohol or drug abuse patient.[facility] HospitalIn the event this information is protected by the Federal Confidentiality of Alcohol and Drug Abuse Patient Records regulations: The Federal rules restrict any use of the information to criminally investigate or prosecute any alcohol or drug abuse patient.[facility] HospitalIn the event this information is protected by the Federal Confidentiality of Alcohol and Drug Abuse Patient Records regulations: The Federal rules restrict any use of the information to criminally investigate or prosecute any alcohol or drug abuse patient.[facility] HospitalIn the event this information is protected by the Federal Confidentiality of Alcohol and Drug Abuse Patient Records regulations: The Federal rules restrict any use of the information to criminally investigate or prosecute any alcohol or drug abuse patient.[facility] HospitalIn the event this information is protected by the Federal Confidentiality of Alcohol and Drug Abuse Patient Records regulations: The Federal rules restrict any use of the information to criminally investigate or prosecute any alcohol or drug abuse patient.[facility] HospitalIn the event this information is protected by the Federal Confidentiality of Alcohol and Drug Abuse Patient Records regulations: The Federal rules restrict any use of the information to criminally investigate or prosecute any alcohol or drug abuse patient.[facility] HospitalIn the event this information is protected by the Federal Confidentiality of Alcohol and Drug Abuse Patient Records regulations: The Federal rules restrict any use of the information to criminally investigate or prosecute any alcohol or drug abuse patient.[facility] HospitalIn the event this information is protected by the Federal Confidentiality of Alcohol and Drug Abuse Patient Records regulations: The Federal rules restrict any use of the information to criminally investigate or prosecute any alcohol or drug abuse patient.[facility] HospitalIn the event this information is protected by the Federal Confidentiality of Alcohol and Drug Abuse Patient Records regulations: The Federal rules restrict any use of the information to criminally investigate or prosecute any alcohol or drug abuse patient.[facility] HospitalIn the event this information is protected by the Federal Confidentiality of Alcohol and Drug Abuse Patient Records regulations: The Federal rules restrict any use of the information to criminally investigate or prosecute any alcohol or drug abuse patient.[facility] HospitalIn the event this information is protected by the Federal Confidentiality of Alcohol and Drug Abuse Patient Records regulations: The Federal rules restrict any use of the information to criminally investigate or prosecute any alcohol or drug abuse patient.[facility] HospitalIn the event this information is protected by the Federal Confidentiality of Alcohol and Drug Abuse Patient Records regulations: The Federal rules restrict any use of the information to criminally investigate or prosecute any alcohol or drug abuse patient.[facility] HospitalIn the event this information is protected by the Federal Confidentiality of Alcohol and Drug Abuse Patient Records regulations: The Federal rules restrict any use of the information to criminally investigate or prosecute any alcohol or drug abuse patient.[facility] HospitalIn the event this information is protected by the Federal Confidentiality of Alcohol and Drug Abuse Patient Records regulations: The Federal rules restrict any use of the information to criminally investigate or prosecute any alcohol or drug abuse patient.[facility] HospitalIn the event this information is protected by the Federal Confidentiality of Alcohol and Drug Abuse Patient Records regulations: The Federal rules restrict any use of the information to criminally investigate or prosecute any alcohol or drug abuse patient.[facility] HospitalIn the event this information is protected by the Federal Confidentiality of Alcohol and Drug Abuse Patient Records regulations: The Federal rules restrict any use of the information to criminally investigate or prosecute any alcohol or drug abuse patient.[facility] HospitalIn the event this information is protected by the Federal Confidentiality of Alcohol and Drug Abuse Patient Records regulations: The Federal rules restrict any use of the information to criminally investigate or prosecute any alcohol or drug abuse patient.[facility] HospitalIn the event this information is protected by the Federal Confidentiality of Alcohol and Drug Abuse Patient Records regulations: The Federal rules restrict any use of the information to criminally investigate or prosecute any alcohol or drug abuse patient.[facility] HospitalIn the event this information is protected by the Federal Confidentiality of Alcohol and Drug Abuse Patient Records regulations: The Federal rules restrict any use of the information to criminally investigate or prosecute any alcohol or drug abuse patient.[facility] HospitalIn the event this information is protected by the Federal Confidentiality of Alcohol and Drug Abuse Patient Records regulations: The Federal rules restrict any use of the information to criminally investigate or prosecute any alcohol or drug abuse patient.[facility] HospitalIn the event this information is protected by the Federal Confidentiality of Alcohol and Drug Abuse Patient Records regulations: The Federal rules restrict any use of the information to criminally investigate or prosecute any alcohol or drug abuse patient.[facility] HospitalIn the event this information is protected by the Federal Confidentiality of Alcohol and Drug Abuse Patient Records regulations: The Federal rules restrict any use of the information to criminally investigate or prosecute any alcohol or drug abuse patient.[facility] HospitalIn the event this information is protected by the Federal Confidentiality of Alcohol and Drug Abuse Patient Records regulations: The Federal rules restrict any use of the information to criminally investigate or prosecute any alcohol or drug abuse patient.[facility] HospitalIn the event this information is protected by the Federal Confidentiality of Alcohol and Drug Abuse Patient Records regulations: The Federal rules restrict any use of the information to criminally investigate or prosecute any alcohol or drug abuse patient.[facility] HospitalIn the event this information is protected by the Federal Confidentiality of Alcohol and Drug Abuse Patient Records regulations: The Federal rules restrict any use of the information to criminally investigate or prosecute any alcohol or drug abuse patient.[facility] HospitalIn the event this information is protected by the Federal Confidentiality of Alcohol and Drug Abuse Patient Records regulations: The Federal rules restrict any use of the information to criminally investigate or prosecute any alcohol or drug abuse patient.[facility] HospitalIn the event this information is protected by the Federal Confidentiality of Alcohol and Drug Abuse Patient Records regulations: The Federal rules restrict any use of the information to criminally investigate or prosecute any alcohol or drug abuse patient.[facility] HospitalIn the event this information is protected by the Federal Confidentiality of Alcohol and Drug Abuse Patient Records regulations: The Federal rules restrict any use of the information to criminally investigate or prosecute any alcohol or drug abuse patient.[facility] HospitalIn the event this information is protected by the Federal Confidentiality of Alcohol and Drug Abuse Patient Records regulations: The Federal rules restrict any use of the information to criminally investigate or prosecute any alcohol or drug abuse patient.[facility] HospitalIn the event this information is protected by the Federal Confidentiality of Alcohol and Drug Abuse Patient Records regulations: The Federal rules restrict any use of the information to criminally investigate or prosecute any alcohol or drug abuse patient.[facility] HospitalIn the event this information is protected by the Federal Confidentiality of Alcohol and Drug Abuse Patient Records regulations: The Federal rules restrict any use of the information to criminally investigate or prosecute any alcohol or drug abuse patient.[facility] HospitalIn the event this information is protected by the Federal Confidentiality of Alcohol and Drug Abuse Patient Records regulations: The Federal rules restrict any use of the information to criminally investigate or prosecute any alcohol or drug abuse patient.[facility] HospitalIn the event this information is protected by the Federal Confidentiality of Alcohol and Drug Abuse Patient Records regulations: The Federal rules restrict any use of the information to criminally investigate or prosecute any alcohol or drug abuse patient.[facility] HospitalIn the event this information is protected by the Federal Confidentiality of Alcohol and Drug Abuse Patient Records regulations: The Federal rules restrict any use of the information to criminally investigate or prosecute any alcohol or drug abuse patient.[facility] HospitalIn the event this information is protected by the Federal Confidentiality of Alcohol and Drug Abuse Patient Records regulations: The Federal rules restrict any use of the information to criminally investigate or prosecute any alcohol or drug abuse patient.[facility] HospitalIn the event this information is protected by the Federal Confidentiality of Alcohol and Drug Abuse Patient Records regulations: The Federal rules restrict any use of the information to criminally investigate or prosecute any alcohol or drug abuse patient.[facility] HospitalIn the event this information is protected by the Federal Confidentiality of Alcohol and Drug Abuse Patient Records regulations: The Federal rules restrict any use of the information to criminally investigate or prosecute any alcohol or drug abuse patient.[facility] HospitalIn the event this information is protected by the Federal Confidentiality of Alcohol and Drug Abuse Patient Records regulations: The Federal rules restrict any use of the information to criminally investigate or prosecute any alcohol or drug abuse patient.[facility] HospitalIn the event this information is protected by the Federal Confidentiality of Alcohol and Drug Abuse Patient Records regulations: The Federal rules restrict any use of the information to criminally investigate or prosecute any alcohol or drug abuse patient.[facility] HospitalIn the event this information is protected by the Federal Confidentiality of Alcohol and Drug Abuse Patient Records regulations: The Federal rules restrict any use of the information to criminally investigate or prosecute any alcohol or drug abuse patient.[facility] HospitalIn the event this information is protected by the Federal Confidentiality of Alcohol and Drug Abuse Patient Records regulations: The Federal rules restrict any use of the information to criminally investigate or prosecute any alcohol or drug abuse patient.[facility] HospitalIn the event this information is protected by the Federal Confidentiality of Alcohol and Drug Abuse Patient Records regulations: The Federal rules restrict any use of the information to criminally investigate or prosecute any alcohol or drug abuse patient.[facility] HospitalIn the event this information is protected by the Federal Confidentiality of Alcohol and Drug Abuse Patient Records regulations: The Federal rules restrict any use of the information to criminally investigate or prosecute any alcohol or drug abuse patient.[facility] HospitalIn the event this information is protected by the Federal Confidentiality of Alcohol and Drug Abuse Patient Records regulations: The Federal rules restrict any use of the information to criminally investigate or prosecute any alcohol or drug abuse patient.[facility] HospitalIn the event this information is protected by the Federal Confidentiality of Alcohol and Drug Abuse Patient Records regulations: The Federal rules restrict any use of the information to criminally investigate or prosecute any alcohol or drug abuse patient.[facility] HospitalIn the event this information is protected by the Federal Confidentiality of Alcohol and Drug Abuse Patient Records regulations: The Federal rules restrict any use of the information to criminally investigate or prosecute any alcohol or drug abuse patient.[facility] HospitalIn the event this information is protected by the Federal Confidentiality of Alcohol and Drug Abuse Patient Records regulations: The Federal rules restrict any use of the information to criminally investigate or prosecute any alcohol or drug abuse patient.[facility] HospitalIn the event this information is protected by the Federal Confidentiality of Alcohol and Drug Abuse Patient Records regulations: The Federal rules restrict any use of the information to criminally investigate or prosecute any alcohol or drug abuse patient.[facility] HospitalIn the event this information is protected by the Federal Confidentiality of Alcohol and Drug Abuse Patient Records regulations: The Federal rules restrict any use of the information to criminally investigate or prosecute any alcohol or drug abuse patient.[facility] HospitalIn the event this information is protected by the Federal Confidentiality of Alcohol and Drug Abuse Patient Records regulations: The Federal rules restrict any use of the information to criminally investigate or prosecute any alcohol or drug abuse patient.[facility] HospitalIn the event this information is protected by the Federal Confidentiality of Alcohol and Drug Abuse Patient Records regulations: The Federal rules restrict any use of the information to criminally investigate or prosecute any alcohol or drug abuse patient.[facility] HospitalIn the event this information is protected by the Federal Confidentiality of Alcohol and Drug Abuse Patient Records regulations: The Federal rules restrict any use of the information to criminally investigate or prosecute any alcohol or drug abuse patient.[facility] PRN Active and Recently Administ ered [...] PRN, Starting on Wed02/12/23 at 1339, Until 02/12/23 at 1401, Intraprocedure 1339 (Given - Provid [...] BE BASED ON THE PRIMARY CLINICAL RECORDS. [facility]. provides no warranty or guarantee of the accuracy or completeness of information in this document.
[2025-11-01] MEDS: Ketorolac 30 MG/ML Syringe IV (19:50)
[2025-11-01 19:55] VITALS: BP 161/100; PULSE 73; RESP 14; O2SAT 95
[2025-11-01] MEDS: 0.9% Normal Saline (1000mL) 1,000 ML 1000 ML IV (19:55)
[2025-11-01 20:11] LABS: Hematocrit 37.5 % (37-47); Hemoglobin 13.0 g/dL (12.0-15.0); Immature Granulocytes Count 0.310 X10^3/uL (0.0-0.0); Mean Corp Hgb Conc 34.7 g/dL (32-36); Mean Corpuscular Volume 83.7 fL (81-99); Mean Platelet Vol. 9.9 fl (6.2-12.0); NRBC Flagged by Analyzer 0 % (0-5); Platelet Count 218 K/mm3 (150-450); RBC Distribution Width CV 13.6 % (11.6-14.6); RBC Distribution Width SD 41.0 fl (35.1-43.9); Red Blood Count 4.48 M/mm3 (4.2-5.4); White Blood Count 9.8 K/mm3 (4.4-11.0)
[2025-11-01 20:35] LABS: Anion Gap 14 (5-15); BUN 8 mg/dL (4-19); BUN/Creat Ratio 11.8 RATIO (10-20); Calcium,Total 9.5 mg/dL (7.6-11.0); Carbon Dioxide 22.5 mmol/L (21.0-32.0); Chloride 106 mmol/L (98-108); Estimated Creatinine Clearance 125.83 ml/min (50-250); Glucose 164 mg/dL (70-99); Potassium 3.7 mmol/L (3.3-5.1)
[2025-11-01 20:39] LABS: Red Blood Cells-Urine 0-5 SEEN /hpf (0-5); Squamous Epithelial Cells - UA 0-5 SEEN /hpf (5-10)
[2025-11-01 21:00] VITALS: BP 165/90; PULSE 63; RESP 16; O2SAT 98
[2025-11-01 21:10] VITALS: BP 165/90; PULSE 63; RESP 16; TEMP 36.6; O2SAT 98
== END 2025-11-01 21:45 | disposition home or self-care (01) ==
PROVIDERS: Emergency Provider Emergency Medicine; PCP Family Medicine; Visit Provider Emergency Medicine
DX: R31.9 Hematuria, unspecified (principal); R30.0 Dysuria; I10 Essential (primary) hypertension; N13.4 Hydroureter; N39.0 Urinary tract infection, site not specified; J45.909 Unspecified asthma, uncomplicated; Z98.51 Tubal ligation status; Z90.49 Acquired absence of other specified parts of digestive tract; Z87.442 Personal history of urinary calculi; R10.A0 Flank pain, unspecified side; R11.2 Nausea with vomiting, unspecified
CPT/HCPCS: 80048; 81001; 81025; 83605; 85025; 96361; 96374; 96375; 99283; A4216; J2405